=== PATIENT | male | born 1960 | race Caucasian/White ===

== ENCOUNTER 2018-01-25 14:26 | Emergency (ER) | payer MEDICAID, SELFPAY ==
[2018-01-25 14:27] VITALS: BP 124/90; PULSE 105; RESP 16; TEMP 36.1; O2SAT 100; BMI 23.6
[2018-01-25] MEDS: HYDROmorphone 1 MG/ML Syringe IM (15:14)
--- NOTE | 2018-01-25 16:18 | ED.VISSUMM ---
- ER Visit Summary Date of Service: 01/25/18 Chief Complaint: Shingles History of Present Illness: The patient is a 57 M with no primary care physician. He reports that he has a rash that began on his right arm approximately 17 days ago. He was seen at urgent care and placed on prednisone which she finished 2 days ago. He went back 2 days ago and was started on Valtrex and gabapentin. He has been taking ibuprofen and tramadol for pain reports that his pain is uncontrolled. Describes as a sharp stabbing pain throughout his right arm. Is 10 out of 10 in severity. Physical Examination: Vitals: Stable. Afebrile. General: Well-nourished and well-developed. Head: Normocephalic atraumatic. Neck: Supple, no lymphadenopathy. No JVD. Nontender. Cardiovascular: Regular rate and rhythm. No murmurs. Respiratory: No respiratory distress. Clear to auscultation bilaterally. Abdominal: Soft, nontender, nondistended, normal bowel sounds. No guarding, rebound, or peritoneal signs. Back: Nontender. Extremities: Nontender, no edema. Skin:Scabbed lesions on the right arm and shoulder in a C5-C6 distribution with no surrounding erythema to suggest infection. Neurologic: Alert and oriented ?3. Cranial nerves II through XII are intact. Normal strength and sensation. Psych: Normal affect. Emergency Department Course and Treatment: Patient was treated with a milligram of Dilaudid IM. He was also given 2 Percocet p.o. and another dose of prednisone. Treatment Plan: I suggest the patient continue the Valtrex that he was prescribed as well as the gabapentin in hopes this will help decrease the risk of postherpetic neuralgia. He will be given a prescription for Percocet as well as another prednisone taper to attempt to help with the pain as well. Instructed to follow-up Dr. Reid in 1 week if not improving. Disposition: To home in improved and stable condition. Impression: 1. Shingles in the C5/C6 dermatomes on right. This note was generated with [employer] software. It may contain incorrect words, spelling, and punctuation that were not noted in review of the chart prior to signing ED Disposition - Plan for ED Patient: Disposition: Home or Assisted Living Chief Complaint: Other, Pain/Inj Instructions: ED Shingles Prescriptions: Oxycodone HCl/Acetaminophen [Percocet 5/325] 1 tablet PO Q6H PRN PRN 5 Days #20 tablet PRN Reason: Pain Prednisone 10 mg PO DAILY #63 tablet Referrals: Shay Reid MD [STAFF PHYSICIAN] - 1 Week if not improving
[2018-01-25] MEDS: predniSONE 20 MG Tablet 60 MG PO (16:37)
[2018-01-25] MEDS: oxyCODONE 5 MG Tablet 10 MG PO (16:37)
[2018-01-25 16:45] VITALS: BP 155/96; PULSE 90; RESP 16; O2SAT 100
--- NOTE | 2018-01-25 16:56 | ED.RN ---
Verbal and written d/c instructions given. All questions answered. Gait steady out of department.
== END 2018-01-25 16:50 | disposition home or self-care (01) ==
PROVIDERS: Emergency Provider Emergency Medicine
DX: B02.9 Zoster without complications (principal)
CPT/HCPCS: 96372; 99283

== ENCOUNTER 2018-02-03 12:59 | Emergency (ER) | payer MEDICAID, SELFPAY ==
[2018-02-03 12:59] VITALS: BP 137/83; PULSE 101; RESP 20; TEMP 36.6; O2SAT 99; BMI 24.3
--- NOTE | 2018-02-03 13:25 | ED.VISSUMM ---
- ER Visit Summary Date of Service: 02/03/18 Chief Complaint: Shingles History of Present Illness: The patient is a 57 M with history of shingles, it is worse over the past few weeks. He is on gabapentin, as well as opiate analgesics at home. Since he pulled on his arm until he makes himself self pass out so the pain is gone. Physical Examination: He does appear in some distress,, he is a healing rash on his right arm, there are no signs of infection. Emergency Department Course and Treatment: Patient will be given IM morphine, he is told to increase his Neurontin from 900 mg a day to 1800 mg a day. He will be referred to pain management. Impression: Herpes zoster This note was generated with [employer] dictation software. It may contain incorrect words, spelling, and punctuation that were not noted in review of the chart prior to signing ED Disposition - Plan for ED Patient: Chief Complaint: Other, Pain/Inj Referrals: Care Physician,No Primary [Primary Care Provider] -
--- NOTE | 2018-02-03 13:27 | ED.DEP ---
ED Disposition - Plan for ED Patient: Disposition: Home or Assisted Living Chief Complaint: Other, Pain/Inj Instructions: ED Shingles Referrals: Theodora Canales MD [STAFF PHYSICIAN] - Additional Instructions: take 2 tabs of Neurontin 3 times per day
[2018-02-03] MEDS: morphine 10 MG/ML Syringe SC (13:30)
[2018-02-03 13:48] VITALS: BP 128/86; PULSE 88; RESP 18
== END 2018-02-03 13:49 | disposition home or self-care (01) ==
PROVIDERS: Emergency Provider Emergency Medicine
DX: B02.9 Zoster without complications (principal)
CPT/HCPCS: 96372; 99283

== ENCOUNTER 2018-02-06 13:01 | Inpatient (IN) | payer MEDICAID, SELFPAY ==
[2018-02-06 13:02] VITALS: BP 101/77; PULSE 89; RESP 16; TEMP 36.4; O2SAT 98; BMI 23.6
--- NOTE | 2018-02-06 13:36 | EKG12_ITS ---
Test Reason : DYSRHYTHMIA Blood Pressure : / mmHG Vent. Rate : 084 BPM Atrial Rate : 084 BPM P-R Int : 134 ms QRS Dur : 082 ms QT Int : 348 ms P-R-T Axes : 068 -09 043 degrees QTc Int : 411 ms Normal sinus rhythm Normal ECG Confirmed by ARTHUR MONSON, YUMIKO ([id number]), editor school photograph RAYNA NAZARIO ([id number]) on 02/09/2018 2:53:32 PM Referred By: TRAVIS Confirmed By:YUMIKO GIBSON MD
[2018-02-06] MEDS: 0.9% Normal Saline 1,000 ML 150 ML IV (13:52)
[2018-02-06] MEDS: HYDROmorphone 1 MG/ML Syringe IV ×4 (13:52→21:42)
[2018-02-06 13:58] LABS: Absolute Lymphocyte Count 1.27 X10^3/ul (0.83-4.51); Absolute Neutrophil Count 4.4 X10^3/uL (2.0-7.7); Basophil# 0.02 X10^3/uL; Basophil% 0.3 % (0-1); Eosinophil# 0.06 X10^3/uL; Hematocrit 38.8 % (40-54); Hemoglobin 13.2 g/dl (13.0-16.5); Lymphocyte # 1.27 X10^3/ul (4.0); Lymphocyte % 20.4 % (19-41); Mean Corpuscular Hgb 28.8 pg (27.0-32.0); Mean Corpuscular Volume 84.5 fL (80-94); Mean Platelet Vol. 9.7 fl (6.2-12.0); Monocyte# 0.43 X10^3/uL; Monocyte% 6.9 % (0-10); Neutrophil # 4.44 X10^3/uL (2.7-7.7); Neutrophil % 71.2 % (47-70); POSITIVE COUNT NO; POSITIVE DIFFERENTIAL NO; POSITIVE MORPHOLOGY NO; Platelet Count 206 K/mm3 (150-450); RBC Distribution Width CV 12.6 % (11.6-14.6); RBC Distribution Width SD 38.3 fl (35.1-43.9); Red Blood Count 4.59 M/mm3 (4.6-6.2); White Blood Count 6.2 K/mm3 (4.4-11.0)
[2018-02-06 14:23] LABS: Anion Gap 8 (5-15); BUN 18 mg/dL (7-18); BUN/Creat Ratio 16.1 RATIO (10-20); Calcium,Total 8.8 mg/dL (8.5-10.1); Chloride 92 mmol/L (98-107); Creatinine, Serum 1.12 mg/dL (0.70-1.30); EST Glomerular Filtration Rate 72 mL/min (>60); Est Glom Filt Rate - Afr Amer 87 mL/min (>60); Estimated Creatinine Clearance 75.14 ml/min; Glucose 520 mg/dL (74-106); Potassium 5.1 mmol/L (3.5-5.1); Sodium Level 127 mmol/L (136-145)
--- NOTE | 2018-02-06 14:35 | RAD_ITS ---
STUDY: X-RAY - CERVICAL SPINE REASON FOR EXAM: Male, 57 years old. Severe neck pain and right arm pain. TECHNIQUE: 4 view(s) of the cervical spine were obtained. COMPARISON: None FINDINGS: Normal anterior atlantoaxial articulation. Normal odontoid process. There is straightening of the normal cervical lordosis. Normal vertebral bodies and endplates. Mild degree of disc space narrowing at the C5-C6 level. Normal visualized intervertebral neuroforamina. The soft tissue structures are unremarkable. RAD/Cerv Spine 2 or 3 Views IMPRESSION: Disc space narrowing at the C5-C6 level. Electronically Signed: Michael Allen MD at 15:19 EDT Tel [phone], Service support ,
[2018-02-06 15:28] VITALS: BP 164/94; PULSE 81; RESP 16; O2SAT 95
--- NOTE | 2018-02-06 16:00 | ED.VISSUMM ---
- ER Visit Summary Date of Service: 02/06/18 Chief Complaint: [Right arm pain] History of Present Illness: The patient is a 57 M [presents the emergency department with right arm pain that started 4 weeks ago. Patient had shingles to the right arm and has since developed a postherpetic neuralgia. Patient states that he has been having severe paroxysms of pain. Patient currently on Neurontin and prednisone as well as oxycodone for pain which has not been helping his pain. Patient was seeing pain management today and got a shot of Toradol and then had a severe paroxysm of pain where he was screaming out in pain and clutching his chest so he was sent to the ER for evaluation. Patient denies any shortness of breath. He denies any trauma to the arm. This is the same pain that he has had over the last 4 weeks. Patient has not had any fevers. Patient has no heart history. Not currently having any chest pain.] Physical Examination: [HEENT-PERRLA, EOMI. Cranial nerves II through XII grossly intact. TMs clear. Mucous membranes moist. No adenopathy. Cardiovascular-regular rate and rhythm without murmur or ectopy Lungs-clear to auscultation, chest wall stable without crepitus or subcu emphysema Abdomen-normoactive bowel sounds, soft, nontender, no rebound or rigidity, no peritoneal signs. Extremities-intact ?4, normal range of motion, normal pulses, atraumatic]. Right arm-patient has brownish discoloration to right arm in a dermatomal pattern consistent with postherpetic rash. Patient has normal pulses and normal sensation. Patient has normal deep tendon reflexes plus 2 out of 4 bilaterally at the bicep, tricep, and brachioradialis. Test Results: [EKG obtained on arrival shows sinus rhythm with a ventricular rate of 84 bpm with no acute ST segment changes. CBC with differential obtained showed a white count of 6.2, he will open 13, hematocrit 39, platelets 206. Chemistry showed a sodium of 127, potassium 5.1, chloride 92, CO2 27 glucose was 520, BUN 18 and creatinine was 1.12. Troponin was less than 0.015. X-rays of the cervical spine obtained showed disc space narrowing at C5-6 otherwise nothing acute.] Emergency Department Course and Treatment: [Patient was medicated with Dilaudid and Zofran and he continued to have intermittent severe episodes of pain and had to be remedicated with Dilaudid. Patient was given 12 units of insulin subcu.] Treatment Plan: [Admit for pain management and glycemic control] Disposition: [Admit] Impression: [Intractable right arm pain secondary to postherpetic neuralgia Hyperglycemia] This note was generated with [employer] dictation software. It may contain incorrect words, spelling, and punctuation that were not noted in review of the chart prior to signing ED Disposition - Plan for ED Patient: Chief Complaint: Other, Pain/Inj Referrals: Care Physician,No Primary [Primary Care Provider] -
[2018-02-06] MEDS: Insulin Lispro 100 UNIT/ML INSULN.PEN 12 UNIT SC (16:08)
--- NOTE | 2018-02-06 16:43 | PCM.HP.STD ---
Problem List (1) Post herpetic neuralgia Status: Acute (2) Peripheral neuropathy Status: Chronic Qualifiers: Peripheral neuropathy type: polyneuropathy, unspecified Qualified Code(s): G62.9 - Polyneuropathy, unspecified (3) Hyperlipidemia Status: Chronic Qualifiers: Hyperlipidemia type: unspecified Qualified Code(s): E78.5 - Hyperlipidemia, unspecified (4) Type 2 diabetes mellitus Status: Chronic Qualifiers: Diabetes mellitus shelter insulin use: without oysterman use Diabetes mellitus complication status: with unspecified complications Qualified Code(s): E11.8 - Type 2 diabetes mellitus with unspecified complications (5) Benign essential hypertension Status: Chronic History of Present Illness Date of Admission: 02/06/18 Chief Complaint: Right arm pain for 2 weeks The patient is a 57 year old M with a significant history of right shoulder problem requiring surgery sometime in 2013. Four weeks ago he did some yard work after which he developed pain in his right arm extending to his right hand. Initially it was diagnosed as poison faby. His pain eventually subsided and then he developed a vesicular lesions. He was subsequently diagnosed with shingles. On outpatient he was placed on valacyclovir, prednisone and gabapentin. He also took some Percocet and tramadol that he had been prescribed about 3 years ago after his shoulder surgery. All these medications were not helping him. He was at our ED 3 days ago where he was referred to a pain specialist. Today at the office at a pain specialist he was given Toradol IM. Because of persistent of pain at the Pain specialist's office he was advised to come to the ED. [] Past Medical History Past Medical History (Chronic Problems): Chronic Problems Peripheral neuropathy (Chronic) Hyperlipidemia (Chronic) Type 2 diabetes mellitus (Chronic) Benign essential hypertension (Chronic) Allergies hydrocodone bitartrate [From Vicodin] Adverse Reaction (Mild, Verified 01/25/18 14:29) HYPER Home Medications: Ambulatory Orders Medication Instructions Recorded Albuterol Inhaler [Ventolin Hfa] 2 puff INHALATION DAILY PRN 06/11/13 Ascorbate Calcium [Vitamin C] 500 mg PO DAILY 08/15/13 Cholecalciferol (Vitamin D3) 500 unit PO DAILY 08/15/13 [Vitamin D3] [place]-3S/Dha/Epa/Fish Oil/D3 [Fish 1 each PO DAILY 08/15/13 Oil + D3 Softgel] RX: traMADol [Ultram] 50 mg PO Q6H PRN PRN #60 tablet 10/17/13 Gabapentin [Neurontin] 300 mg PO TID 01/25/18 Oxycodone HCl/Acetaminophen 1 tablet PO Q6H PRN PRN 5 Days #20 01/25/18 [Percocet 5/325] tablet Valacyclovir HCl [Valacyclovir] 1,000 mg PO TID 01/25/18 RX: Prednisone 10 mg PO DAILY 02/06/18 Surgical History: - - S/p R shoulder surgery Lives: Spouse/ Significant Other Smoking Status: Never smoker Tobacco Use: Chew - Chews tobacco. Reports he last chewed tobacco about 4 weeks ago. He denies ever smoking Alcohol: Rare Drugs: None - *Family History Maternal History Items: No pertinent history Paternal History Items: No pertinent history Review of Systems Skin: Reports: Wounds VTE Information - Inpt Only VTE Present on Admission: No VTE Mechan Device Prophylaxis: None VTE Pharm Prophylaxis ordered?: No Patient Problems: Active and Suspected Problems Post herpetic neuralgia (Acute) - Physical Exam General: Alert, Oriented x3 HEENT: Atraumatic, PERRLA, EOMI, Normocephalic Neck: Supple, No JVD, Negative Carotid Bruits Lungs: Clear to auscultation, Normal air movement Cardiovascular: Regular rate, No murmurs Abdomen: Bowel Sounds Present, Soft, Non Tender Extremities: - - Right arm with desquamation rashes. Excoriations on bilateral legs Neurological: Cranial nerves II-XII grossly intact Psych/Mental Status: Normal Affect, Appropriate Vital Signs Temp Pulse Resp BP Pulse Ox 97.6 F L 81 16 164/94 H 95 02/06/18 13:02 02/06/18 15:28 02/06/18 15:28 02/06/18 15:28 02/06/18 15:28 Assessment/Plan All Active Problems Post herpetic neuralgia (Acute) A 57 year old M with a significant history of right shoulder pain requiring surgery sometime in 2013. Four weeks ago he did some yard work after which he developed pain in his right arm extending to his right hand. Initially it was diagnosed as poison faby. His pain eventually subsided but he later developed a vesicular lesions. He was subsequently diagnosed with shingles. On outpatient he was placed on valacyclovir, prednisone and gabapentin. He now presents with persistent pain to his right upper extremity. 1.Postherpetic neuralgia We will continue his home gabapentin 300 mg 3 times daily. Will add amitriptyline The patient was started on Dilaudid from the ED which was giving him some relief, will continue Dilaudid. Will continue prednisone Patient stated that he has about 3 more doses of Valacyclovir will continue valacyclovir for now. Dr. Pascual was consulted to optimize pain management 2. Diabetes Type II with acute hyperglycemia The patient reports that previously he was taking short acting insulin (humalog) and was later switched to long acting insulin. He reports that after losing about 57 pounds he no longer required insulin. Because of her presentation his blood glucose was more than 500 will continue patient on low dose correction scale and ACHS blood glucose checks. The patient received 12 units of short acting insulin at the ED. Repeated glucose was 302. If blood glucose remain elevated will consider basal insulin Continue NSS infusion for an additional 1000ml 3.History of HTN Vitals every 4 hours 4.VTE Prophylaxis - Low risk Recommend ambulation Code Visit OBSV E&M: 76850 Initial observation care L3
--- NOTE | 2018-02-06 16:48 | HP.PCM_ITS ---
Problem List (1) Post herpetic neuralgia Status: Acute (2) Peripheral neuropathy Status: Chronic Qualifiers: Peripheral neuropathy type: polyneuropathy, unspecified Qualified Code(s): G62.9 - Polyneuropathy, unspecified (3) Hyperlipidemia Status: Chronic Qualifiers: Hyperlipidemia type: unspecified Qualified Code(s): E78.5 - Hyperlipidemia , unspecified (4) Type 2 diabetes mellitus Status: Chronic Qualifiers: Diabetes mellitus long-term insulin use: without wood heel attacher use Diabetes mellitus complication status: with unspecified complications Qualified Code(s) : E11.8 - Type 2 diabetes mellitus with unspecified complications (5) Benign essential hypertension Status: Chronic History of Present Illness Date of Admission: 02/06/18 Chief Complaint: Right arm pain for 2 weeks The patient is a 57 year old M with a significant history of right shoulder problem requiring surgery sometime in 2013. Four weeks ago he did some yard work after which he developed pain in his right arm extending to his right hand. Initially it was diagnosed as poison faby. His pain eventually subsided and then he developed a vesicular lesions. He was subsequently diagnosed with shingles. On outpatient he was placed on valacyclovir, prednisone and gabapentin. He also took some Percocet and tramadol that he had been prescribed about 3 years ago after his shoulder surgery. All these medications were not helping him. He was at our ED 3 days ago where he was referred to a pain specialist. Today at the office at a pain specialist he was given Toradol IM. Because of persistent of pain at the Pain specialist's office he was advised to come to the ED. [] Past Medical History Past Medical History (Chronic Problems): Chronic Problems Peripheral neuropathy (Chronic) Hyperlipidemia (Chronic) Type 2 diabetes mellitus (Chronic) Benign essential hypertension (Chronic) Allergies hydrocodone bitartrate [From Vicodin] Adverse Reaction (Mild, Verified 01/25/18 14:29) HYPER Home Medications: Ambulatory Orders Medication Instructions Recorded Albuterol Inhaler [Ventolin Hfa] 2 puff INHALATION DAILY PRN 06/11/13 Ascorbate Calcium [Vitamin C] 500 mg PO DAILY 08/15/13 Cholecalciferol (Vitamin D3) 500 unit PO DAILY 08/15/13 [Vitamin D3] [place]-3S/Dha/Epa/Fish Oil/D3 [Fish 1 each PO DAILY 08/15/13 Oil + D3 Softgel] RX: traMADol [Ultram] 50 mg PO Q6H PRN PRN #60 tablet 10/17/13 Gabapentin [Neurontin] 300 mg PO TID 01/25/18 Oxycodone HCl/Acetaminophen 1 tablet PO Q6H PRN PRN 5 Days #20 01/25/18 [Percocet 5/325] tablet Valacyclovir HCl [Valacyclovir] 1,000 mg PO TID 01/25/18 RX: Prednisone 10 mg PO DAILY 02/06/18 Surgical History: - - S/p R shoulder surgery Lives: Spouse/ Significant Other Smoking Status: Never smoker Tobacco Use: Chew - Chews tobacco. Reports he last chewed tobacco about 4 weeks ago. He denies ever smoking Alcohol: Rare Drugs: None - *Family History Maternal History Items: No pertinent history Paternal History Items: No pertinent history Review of Systems Skin: Reports: Wounds VTE Information - Inpt Only VTE Present on Admission: No VTE Mechan Device Prophylaxis: None VTE Pharm Prophylaxis ordered?: No Patient Problems: Active and Suspected Problems Post herpetic neuralgia (Acute) - Physical Exam General: Alert, Oriented x3 HEENT: Atraumatic, PERRLA, EOMI, Normocephalic Neck: Supple, No JVD, Negative Carotid Bruits Lungs: Clear to auscultation, Normal air movement Cardiovascular: Regular rate, No murmurs Abdomen: Bowel Sounds Present, Soft, Non Tender Extremities: - - Right arm with desquamation rashes. Excoriations on bilateral legs Neurological: Cranial nerves II-XII grossly intact Psych/Mental Status: Normal Affect, Appropriate Vital Signs Temp Pulse Resp BP Pulse Ox 97.6 F L 81 16 164/94 H 95 02/06/18 13:02 02/06/18 15:28 02/06/18 15:28 02/06/18 15:28 02/06/18 15:28 Assessment/Plan All Active Problems Post herpetic neuralgia (Acute) A 57 year old M with a significant history of right shoulder pain requiring surgery sometime in 2013. Four weeks ago he did some yard work after which he developed pain in his right arm extending to his right hand. Initially it was diagnosed as poison faby. His pain eventually subsided but he later developed a vesicular lesions. He was subsequently diagnosed with shingles. On outpatient he was placed on valacyclovir, prednisone and gabapentin. He now presents with persistent pain to his right upper extremity. 1.Postherpetic neuralgia We will continue his home gabapentin 300 mg 3 times daily. Will add amitriptyline The patient was started on Dilaudid from the ED which was giving him some relief , will continue Dilaudid. Will continue prednisone Patient stated that he has about 3 more doses of Valacyclovir will continue valacyclovir for now. Dr. Pascual was consulted to optimize pain management 2. Diabetes Type II with acute hyperglycemia The patient reports that previously he was taking short acting insulin (humalog ) and was later switched to long acting insulin. He reports that after losing about 57 pounds he no longer required insulin. Because of her presentation his blood glucose was more than 500 will continue patient on low dose correction scale and ACHS blood glucose checks. The patient received 12 units of short acting insulin at the ED. Repeated glucose was 302. If blood glucose remain elevated will consider basal insulin Continue NSS infusion for an additional 1000ml 3.History of HTN Vitals every 4 hours 4.VTE Prophylaxis - Low risk Recommend ambulation Code Visit OBSV E&M: 68107 Initial observation care L3
[2018-02-06 17:04] VITALS: BMI 23.8
[2018-02-06 17:12] VITALS: BMI 23.9
[2018-02-06 17:41] LABS: Bedside Glucose 302 mg/dL (70-110)
[2018-02-06 18:08] VITALS: BP 119/78; PULSE 79; RESP 16; TEMP 37.1; O2SAT 96
[2018-02-06 18:12] VITALS: PULSE 79
[2018-02-06 18:36] LABS: Hemoglobin A1c 15.5 % (4.2-6.3)
[2018-02-06] MEDS: 0.9% Normal Saline 1,000 ML 75 ML IV (18:41)
[2018-02-06] MEDS: predniSONE 10 MG Tablet 20 MG PO (18:41)
[2018-02-06] MEDS: Amitriptyline 25 MG Tablet 50 MG PO (18:41)
[2018-02-06] MEDS: Acyclovir 800 MG Tablet PO ×2 (18:42→21:42)
[2018-02-06] MEDS: Gabapentin 300 MG Capsule PO ×2 (18:42→23:42)
[2018-02-06 19:45] VITALS: BP 105/70; PULSE 92; RESP 16; TEMP 36.7; O2SAT 100
[2018-02-06] MEDS: oxyCODONE 5 MG Tablet PO (19:52)
[2018-02-06] MEDS: 0.9% NaCl Peripheral Flush Adult/Peds IV (21:42)
[2018-02-06] MEDS: MELATONIN 3 MG TABLET PO (21:42)
[2018-02-06 22:10] LABS: Bedside Glucose 429 mg/dL (70-110)
[2018-02-06] MEDS: Insulin Lispro 100 UNIT/ML INSULN.PEN SC (23:42)
[2018-02-06] MEDS: Acetaminophen 325 MG Tablet 650 MG PO (23:42)
[2018-02-06] MEDS: Hydrocortisone 2.5% Crm 1 APPLIC TOPICAL (23:42)
[2018-02-07 01:47] VITALS: BP 151/95; PULSE 69; RESP 16; TEMP 36.6; O2SAT 96
[2018-02-07] MEDS: oxyCODONE 5 MG Tablet PO ×3 (03:20→18:21)
[2018-02-07] MEDS: 0.9% NaCl Peripheral Flush Adult/Peds IV ×3 (05:09→21:49)
[2018-02-07] MEDS: HYDROmorphone 1 MG/ML Syringe IV ×3 (05:09→21:50)
[2018-02-07] MEDS: Acyclovir 800 MG Tablet PO ×5 (05:10→21:59)
[2018-02-07 06:10] LABS: Absolute Neutrophil Count 4.8 X10^3/uL (2.0-7.7); Basophil# 0.01 X10^3/uL; Basophil% 0.2 % (0-1); Eosinophil# 0.01 X10^3/uL; Eosinophils% 0.2 % (0-5); Hematocrit 35.5 % (40-54); Hemoglobin 12.5 g/dl (13.0-16.5); Lymphocyte % 16.5 % (19-41); Mean Corp Hgb Conc 35.2 g/gl (32-36); Mean Corpuscular Hgb 29.7 pg (27.0-32.0); Mean Corpuscular Volume 84.3 fL (80-94); Mean Platelet Vol. 10.2 fl (6.2-12.0); Monocyte# 0.25 X10^3/uL; Monocyte% 4.1 % (0-10); Neutrophil # 4.78 X10^3/uL (2.7-7.7); Neutrophil % 78.7 % (47-70); Platelet Count 206 K/mm3 (150-450); Red Blood Count 4.21 M/mm3 (4.6-6.2); White Blood Count 6.1 K/mm3 (4.4-11.0)
[2018-02-07 06:17] LABS: POSITIVE COUNT NO; POSITIVE DIFFERENTIAL NO; POSITIVE MORPHOLOGY NO
[2018-02-07] MEDS: Acetaminophen 325 MG Tablet 650 MG PO ×2 (06:25→20:02)
[2018-02-07 06:35] LABS: Anion Gap 11 (5-15); BUN 22 mg/dL (7-18); BUN/Creat Ratio 22.3 RATIO (10-20); Calcium,Total 8.2 mg/dL (8.5-10.1); Chloride 98 mmol/L (98-107); Creatinine, Serum 0.98 mg/dL (0.70-1.30); EST Glomerular Filtration Rate 83 mL/min (>60); Est Glom Filt Rate - Afr Amer 101 mL/min (>60); Estimated Creatinine Clearance 85.87 ml/min; Glucose 444 mg/dL (74-106); Potassium 4.7 mmol/L (3.5-5.1); Sodium Level 132 mmol/L (136-145)
[2018-02-07 06:56] LABS: Bedside Glucose 452 mg/dL (70-110)
[2018-02-07] MEDS: Insulin Lispro 100 UNIT/ML INSULN.PEN 10 UNIT SC (07:03)
[2018-02-07 08:30] VITALS: BP 137/76; PULSE 60; RESP 18; TEMP 36.8; O2SAT 96
[2018-02-07] MEDS: Gabapentin 300 MG Capsule PO (08:31)
[2018-02-07] MEDS: Omega-3 Acid Ethyl Esters 1 GM Capsule PO (09:35)
[2018-02-07] MEDS: Ascorbic Acid 500 MG Tablet PO (09:35)
[2018-02-07] MEDS: Amitriptyline 25 MG Tablet 50 MG PO ×2 (09:35→22:01)
--- NOTE | 2018-02-07 09:37 | PCM.PN.HOSP ---
Patient Problems: Active and Suspected Problems Post herpetic neuralgia (Acute) Subjective: Patient continues to have numbness and tingling at his right upper extremity. He thinks that hydrocortisone cream that was applied to his right upper extremity has rather aggravated burning to his extremity. Vitals/I&O's: Vital Signs Temp Pulse Resp BP Pulse Ox 97.9 F 69 16 151/95 H 96 02/07/18 01:47 02/07/18 01:47 02/07/18 01:47 02/07/18 01:47 02/07/18 01:47 Oxygen Delivery Method Room Air Weight: 75.478 kg Body Mass Index (BMI) 23.8 Intake and Output for Last 24 Hours 02/05/18 02/06/18 02/07/18 23:59 23:59 23:59 Intake Total 839 / 839 427 / 427 Balance 839 / 839 427 / 427 General: Alert, Oriented x3, Cooperative, - HEENT: Atraumatic, PERRLA, EOMI, Normocephalic Neck: Supple, No JVD, Negative Carotid Bruits Lungs: Clear to auscultation, Normal air movement Cardiovascular: Regular rate, No murmurs Abdomen: Bowel Sounds Present, Soft, Non Tender Extremities: No edema, Capillary Refill Less than 3 Seconds, - Skin: Rash Present, - - Healed flat lesions on the ventral side of his right extremity. Neurological: Cranial nerves II-XII grossly intact Psych/Mental Status: Normal Affect, Appropriate Laboratory Results 02/06/18 17:35: POC Glucose 302 H 02/06/18 21:51: POC Glucose 429 H 02/07/18 05:30: WBC 6.1, RBC 4.21 L, Hgb 12.5 L, Hct 35.5 L, MCV 84.3, MCH 29.7, MCHC 35.2, RDW 12.0, RDW Differential 36.0, Plt Count 206, MPV 10.2, Immature Gran % (Auto) 0.300, Neut % (Auto) 78.7 H, Lymph % (Auto) 16.5 L, [place] % (Auto) 4.1, Eos % (Auto) 0.2, Baso % (Auto) 0.2, Absolute Neuts (auto) 4.8, Absolute Lymphs (auto) 1.00, Total Counted Not Reportable 02/07/18 05:30: Sodium 132 L, Potassium 4.7, Chloride 98, Carbon Dioxide 23.0, Anion Gap 11, BUN 22 H, Creatinine 0.98, Estim Creat Clear Calc 85.87, Est GFR (MDRD) Af Amer 101, Est GFR (MDRD) Non-Af 83, BUN/Creatinine Ratio 22.3 H, Glucose 444 H, Calcium 8.2 L 02/07/18 06:47: POC Glucose 452 H* Current Medications Acetaminophen (Tylenol) 650 mg PO Q6H PRN PRN PRN Reason: PAIN Last Admin: 02/07/18 06:25 Dose: 650 mg Acyclovir (Zovirax) 800 mg PO 5X/DAY [facility] Last Admin: 02/07/18 05:10 Dose: 800 mg Albuterol/Ipratropium (Duoneb) 3 ml INHALATION Q4H.RT PRN PRN Reason: SOB &/OR WHEEZING Amitriptyline HCl (Elavil) 50 mg PO BID [facility] Last Admin: 02/06/18 18:41 Dose: 50 mg Ascorbic Acid (Vitamin C) 500 mg PO DAILY [facility] Bisacodyl (Dulcolax) 5 mg PO DAILY PRN PRN PRN Reason: Constipation Gabapentin (Neurontin) 300 mg PO TIDCM [facility] Last Admin: 02/07/18 08:31 Dose: 300 mg Hydromorphone HCl (Dilaudid Inj) 1 mg IV Q3H PRN PRN PRN Reason: SEVERE PAIN (6-10/10) Last Admin: 02/07/18 05:09 Dose: 1 mg Sodium Chloride () 250 mls @ 15 mls/hr IV .[id number] PRN PRN Reason: SALINE FLUSH Insulin Glargine (Lantus (Bkc)) 10 units SC DAILY [facility] Insulin Human Lispro (Humalog Kwikpen (Bkc)) 0 unit SC ACHS [facility] PRN Reason: Protocol Insulin Human Lispro (Humalog Kwikpen (Bkc)) 4 unit SC TIDAC [facility] Lidocaine (Lidocaine 5%) 1 gm TOPICAL TID [facility] PRN Reason: Protocol Magnesium Hydroxide (Milk Of Magnesia) 30 ml PO DAILY PRN PRN PRN Reason: Constipation Melatonin (Melatonin) 3 mg PO QHS [facility] Last Admin: 02/06/18 21:42 Dose: 3 mg Ruqpm-7-Tqre Ethyl Esters (Lovaza) 1 gm PO DAILY [facility] Oxycodone HCl (Oxyir) 5 mg PO Q6H PRN PRN PRN Reason: PAIN Last Admin: 02/07/18 03:20 Dose: 5 mg Psyllium Hydrophilic Mucilloid (Metamucil) 1 packet PO DAILY PRN PRN PRN Reason: CONSTIPATION Sodium Chloride () 5 - 30 ml IV UD PRN PRN Reason: SALINE FLUSH Last Admin: 02/07/18 05:09 Dose: 10 ml Medical Necessity - Tobacco Use Smoking Status: Never smoker Tobacco Use: Chew Assessment/Plan All Active Problems Post herpetic neuralgia (Acute) A 57 year old M with a significant history of 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 1.Acute Post herpetic neuralgia Since patient pain is not abating will add lidocaine cream to regimen. Increase gabapentin from 300mg tid to 600mg tid Beginning tomorrow change amitriptyline from amitriptyline 50 mg twice daily to amitriptyline 100 mg daily for compliance. In anticipation of likely discharge tomorrow will begin to wean Dilaudid off by decreasing frequency. Will discontinue prednisone as they may not be any tangible role and his blood glucose is persistently high Will continue Acyclovir for today and consider discontinuing tomorrow Awaiting Dr. Pascual's recommendation 2. Diabetes Type II with uncontrolled hyperglycemia A1c is 15.5. Continue blood glucose check q. before meals and at bedtime. We will continue patient on high dose correction scale. Prandial insulin We will add basal insulin Lantus at 10 Units daily for today We will prandial Humalog 4 units 3 times daily. 3.VTE Prophylaxis Low risk Recommend ambulation 4. Miscellaneous: anticipate discharge tomorrow 02/08/2018 if his blood glucose is well managed; and his pain can be managed outpatient Code Visit Inpatient E&M: 25694 Subs Hosp L2
--- NOTE | 2018-02-07 09:40 | PN_ITS ---
Patient Problems: Active and Suspected Problems Post herpetic neuralgia (Acute) Subjective: Patient continues to have numbness and tingling at his right upper extremity. He thinks that hydrocortisone cream that was applied to his right upper extremity has rather aggravated burning to his extremity. Vitals/I&O's: Vital Signs Temp Pulse Resp BP Pulse Ox 97.9 F 69 16 151/95 H 96 02/07/18 01:47 02/07/18 01:47 02/07/18 01:47 02/07/18 01:47 02/07/18 01:47 Oxygen Delivery Method Room Air Weight: 75.478 kg Body Mass Index (BMI) 23.8 Intake and Output for Last 24 Hours 02/05/18 02/06/18 02/07/18 23:59 23:59 23:59 Intake Total 839 / 839 427 / 427 Balance 839 / 839 427 / 427 General: Alert, Oriented x3, Cooperative, - HEENT: Atraumatic, PERRLA, EOMI, Normocephalic Neck: Supple, No JVD, Negative Carotid Bruits Lungs: Clear to auscultation, Normal air movement Cardiovascular: Regular rate, No murmurs Abdomen: Bowel Sounds Present, Soft, Non Tender Extremities: No edema, Capillary Refill Less than 3 Seconds, - Skin: Rash Present, - - Healed flat lesions on the ventral side of his right extremity. Neurological: Cranial nerves II-XII grossly intact Psych/Mental Status: Normal Affect, Appropriate Laboratory Results 02/06/18 17:35: POC Glucose 302 H 02/06/18 21:51: POC Glucose 429 H 02/07/18 05:30: WBC 6.1, RBC 4.21 L, Hgb 12.5 L, Hct 35.5 L, MCV 84.3, MCH 29.7 , MCHC 35.2, RDW 12.0, RDW Differential 36.0, Plt Count 206, MPV 10.2, Immature Gran % (Auto) 0.300, Neut % (Auto) 78.7 H, Lymph % (Auto) 16.5 L, [place] % (Auto) 4.1, Eos % (Auto) 0.2, Baso % (Auto) 0.2, Absolute Neuts (auto) 4.8, Absolute Lymphs (auto) 1.00, Total Counted Not Reportable 02/07/18 05:30: Sodium 132 L, Potassium 4.7, Chloride 98, Carbon Dioxide 23.0, Anion Gap 11, BUN 22 H, Creatinine 0.98, Estim Creat Clear Calc 85.87, Est GFR ( MDRD) Af Amer 101, Est GFR (MDRD) Non-Af 83, BUN/Creatinine Ratio 22.3 H, Glucose 444 H, Calcium 8.2 L 02/07/18 06:47: POC Glucose 452 H* Current Medications Acetaminophen (Tylenol) 650 mg PO Q6H PRN PRN PRN Reason: PAIN Last Admin: 02/07/18 06:25 Dose: 650 mg Acyclovir (Zovirax) 800 mg PO 5X/DAY [facility] Last Admin: 02/07/18 05:10 Dose: 800 mg Albuterol/Ipratropium (Duoneb) 3 ml INHALATION Q4H.RT PRN PRN Reason: SOB &/OR WHEEZING Amitriptyline HCl (Elavil) 50 mg PO BID [facility] Last Admin: 02/06/18 18:41 Dose: 50 mg Ascorbic Acid (Vitamin C) 500 mg PO DAILY [facility] Bisacodyl (Dulcolax) 5 mg PO DAILY PRN PRN PRN Reason: Constipation Gabapentin (Neurontin) 300 mg PO TIDCM [facility] Last Admin: 02/07/18 08:31 Dose: 300 mg Hydromorphone HCl (Dilaudid Inj) 1 mg IV Q3H PRN PRN PRN Reason: SEVERE PAIN (6-10/10) Last Admin: 02/07/18 05:09 Dose: 1 mg Sodium Chloride () 250 mls @ 15 mls/hr IV .[id number] PRN PRN Reason: SALINE FLUSH Insulin Glargine (Lantus (Bkc)) 10 units SC DAILY [facility] Insulin Human Lispro (Humalog Kwikpen (Bkc)) 0 unit SC ACHS [facility] PRN Reason: Protocol Insulin Human Lispro (Humalog Kwikpen (Bkc)) 4 unit SC TIDAC [facility] Lidocaine (Lidocaine 5%) 1 gm TOPICAL TID [facility] PRN Reason: Protocol Magnesium Hydroxide (Milk Of Magnesia) 30 ml PO DAILY PRN PRN PRN Reason: Constipation Melatonin (Melatonin) 3 mg PO QHS [facility] Last Admin: 02/06/18 21:42 Dose: 3 mg Abtoc-2-Rhxz Ethyl Esters (Lovaza) 1 gm PO DAILY [facility] Oxycodone HCl (Oxyir) 5 mg PO Q6H PRN PRN PRN Reason: PAIN Last Admin: 02/07/18 03:20 Dose: 5 mg Psyllium Hydrophilic Mucilloid (Metamucil) 1 packet PO DAILY PRN PRN PRN Reason: CONSTIPATION Sodium Chloride () 5 - 30 ml IV UD PRN PRN Reason: SALINE FLUSH Last Admin: 02/07/18 05:09 Dose: 10 ml Medical Necessity - Tobacco Use Smoking Status: Never smoker Tobacco Use: Chew Assessment/Plan All Active Problems Post herpetic neuralgia (Acute) A 57 year old M with a significant history of 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 1.Acute Post herpetic neuralgia Since patient pain is not abating will add lidocaine cream to regimen. Increase gabapentin from 300mg tid to 600mg tid Beginning tomorrow change amitriptyline from amitriptyline 50 mg twice daily to amitriptyline 100 mg daily for compliance. In anticipation of likely discharge tomorrow will begin to wean Dilaudid off by decreasing frequency. Will discontinue prednisone as they may not be any tangible role and his blood glucose is persistently high Will continue Acyclovir for today and consider discontinuing tomorrow Awaiting Dr. aPscual's recommendation 2. Diabetes Type II with uncontrolled hyperglycemia A1c is 15.5. Continue blood glucose check q. before meals and at bedtime. We will continue patient on high dose correction scale. Prandial insulin We will add basal insulin Lantus at 10 Units daily for today We will prandial Humalog 4 units 3 times daily. 3.VTE Prophylaxis Low risk Recommend ambulation 4. Miscellaneous: anticipate discharge tomorrow 02/08/2018 if his blood glucose is well managed; and his pain can be managed outpatient Code Visit Inpatient E&M: 44343 Subs Hosp L2
[2018-02-07] MEDS: Insulin Lispro 100 UNIT/ML INSULN.PEN SC ×5 (11:35→23:14)
[2018-02-07 11:50] LABS: Bedside Glucose 333 mg/dL (70-110)
[2018-02-07] MEDS: Gabapentin 300 MG Capsule 600 MG PO ×2 (12:15→16:30)
--- NOTE | 2018-02-07 13:13 | CASEMGMT ---
See RN CM Assessment Link. DC Plan: Home -Pt states he has new pt appointment with [facility] physicians on February 23, 2018 -Pt has endocrinology physician in [place]- encouraged to make f/u appt on dc to re-evaluate his diabetes. -Pt states he has blood glucose monitoring equipment at home and knows how to use. -[employer] preferred insulin drug list on front of chart. Physician: please order off this list if possible for pt. Jalen HAGEN RN ACM
--- NOTE | 2018-02-07 15:50 | CHAPLAIN ---
Type of Pastoral Visit _x__ Initial Visit ___ Follow-up Visit ___ On-call Visit ___ General Patient Visit ___ Spiritual Assessment ___ Family Conference ___ Bereavement ___ Rapid Response ___ Code Blue ___ Other (describe below) Pastoral Care Referral From _x__ Patient ___ Family ___ Nurse ___ Physician ___ [place] Machine Operator ___ Solar Business Developer ___ Other (describe below) Sacrament/Intervention ___ Active listening ___ Anointing ___ Anabaptist ___ Bereavement ___ Communion ___ Jenny exploration ___ ___ Life review ___ Prayer ___ Reconciliation ___ Sacrament of Sick ___ Supportive presence ___ Wedding _x__ Other (describe below) Pastoral Comments two attempts and only able to meet with family member for support and offer of prayer; patient was sleeping and due to need for rest this upholstery covers inspector did not disturb him; family said they would inform patient of support and prayers from upholstery covers inspector
[2018-02-07 16:22] VITALS: BP 111/67; PULSE 84; RESP 18; TEMP 36.9; O2SAT 96
[2018-02-07 16:30] LABS: Bedside Glucose 297 mg/dL (70-110)
[2018-02-07 21:56] VITALS: BP 146/84; PULSE 99; RESP 18; TEMP 36.9; O2SAT 97
[2018-02-07] MEDS: MELATONIN 3 MG TABLET PO (22:00)
[2018-02-07 22:25] LABS: Bedside Glucose 472 mg/dL (70-110)
[2018-02-07 22:41] LABS: Glucose 449 mg/dL (74-106)
[2018-02-07 23:34] VITALS: PULSE 99
[2018-02-08 02:30] VITALS: BP 106/79; PULSE 93; RESP 16; TEMP 36.9; O2SAT 95
[2018-02-08] MEDS: oxyCODONE 5 MG Tablet PO ×2 (02:30→10:04)
[2018-02-08] MEDS: Acetaminophen 325 MG Tablet 650 MG PO ×2 (03:48→10:05)
[2018-02-08 06:41] LABS: Bedside Glucose 269 mg/dL (70-110)
[2018-02-08 07:47] VITALS: BP 98/56; PULSE 78; RESP 18; TEMP 36.8; O2SAT 95
[2018-02-08] MEDS: Ascorbic Acid 500 MG Tablet PO (07:54)
[2018-02-08] MEDS: Gabapentin 300 MG Capsule 600 MG PO ×2 (07:54→11:39)
[2018-02-08] MEDS: Amitriptyline 100 MG Tablet PO (07:54)
[2018-02-08] MEDS: Omega-3 Acid Ethyl Esters 1 GM Capsule PO (07:54)
[2018-02-08] MEDS: Insulin Lispro 100 UNIT/ML INSULN.PEN SC ×2 (08:27)
--- NOTE | 2018-02-08 11:02 | DS.PCM_ITS ---
Discharge Date and Diagnosis Date of Admission: 02/06/18 Date of Discharge: 02/08/18 - Primary Discharge Diagnosis Active and Suspected Problems Post herpetic neuralgia (Acute) - Secondary Discharge Diagnosis Chronic Problems Peripheral neuropathy (Chronic) Hyperlipidemia (Chronic) Type 2 diabetes mellitus (Chronic) Benign essential hypertension (Chronic) Hospital Course and Treatment Imaging Results: Impressions Cervical Spine X-Ray 02/06/18 14:35 IMPRESSION: Disc space narrowing at the C5-C6 level. Electronically Signed: Michael Allen MD at 15:19 EDT Tel [phone], Service support , Laboratory Results 02/07/18 02/07/18 02/08/18 Range/Units 22:10 22:24 06:37 Glucose 449 H (74-106) mg/dL POC Glucose 472 H* 269 H (70-110) mg/dL 02/08/18 Range/Units 11:11 Glucose (74-106) mg/dL POC Glucose 195 H (70-110) mg/dL Pain Management Operations: None Procedures: None Summary of Care Provided: The patient is a 57 year old M who was admitted because of post hepatic neuralgia. Inpatient treatment included escalation of his previous home pain regimen from gabapentin 300 mg 3 times daily to gabapentin 600 mg twice daily. Other treatment included amitriptyline 100 mg p.o. daily; morphine IV as needed and oxycodone p.o. as needed. Initially, hydrocortisone cream was applied to his right arm but because patient reported increasing pain, hydrocortiosne was discontinued and topical lidocaine therapy was started. Pain management was consulted who recommended outpatient follow up at the clinic for management of C5-C6 disc narrowing. Patient was noted to have a severe hypoglycemia and this was treated with a basal, prandial and correction scale insulin. He was prednisone prior to his hospitalization. Initially prednisone was continued in the hospital but since he was not getting any relief from the prednisone and his blood sugar was elevated, prednisone was discontinued. Patient noted a considerable reduction in the pain of his right arm; and his blood glucose was getting better controlled. Patient was subsequently discontinued on a pain regimen for his postherpetic neuralgia; and he was prescribed a basal insulin, prandial insulin and metformin for management of his blood glucose. Patient was instructed to follow up with endocrinology. He reported that previously he was seeing an united [place] marshal for diabetes type 2. Diabetic teaching was provided. Patient was instructed to follow with Dr. Canales and with his PCP. [] Discharge Diet: Carb Control Diet Discharge Activity: Return to Normal Activity Home Medications: Medications to take at Discharge Albuterol Inhaler [Ventolin Hfa] 2 puff INHALATION DAILY PRN 06/11/13 Ascorbate Calcium [Vitamin C] 500 mg PO DAILY 08/15/13 Cholecalciferol (Vitamin D3) [Vitamin D3] 500 unit PO DAILY 08/15/13 [place]-3S/Dha/Epa/Fish Oil/D3 [Fish Oil-Vit D3 Softgel] 1 each PO DAILY 08/15/13 Oxycodone HCl/Acetaminophen [Percocet 5/325] 1 tablet PO Q6H PRN PRN 5 Days #20 tablet 01/25/18 Acetaminophen [Tylenol Tablet] 650 mg PO Q6H PRN PRN #60 tab 02/08/18 Amitriptyline HCl [Elavil] 100 mg PO DAILY #30 tab 02/08/18 Bisacodyl [Dulcolax] 5 mg PO DAILY PRN PRN 14 Days #14 tab 02/08/18 Gabapentin [Neurontin] 600 mg PO TIDCM #90 cap 02/08/18 Insulin Glargine [Lantus SoloStar Pen] 25 units SC QHS 30 Days #2 pen 02/08/18 Insulin Lispro [Humalog KwikPen] 5 unit SC TIDAC 30 Days #2 insuln.pen 02/08/18 Lancets/Blood Glucose Strips [Fora [id number] Strp-Lnct] 1 ea MC TID #1 combo..pkg 02/08/18 Lidocaine [Lidocaine 5%] 1 gm TOPICAL TID 14 Days #1 tube 02/08/18 Lisinopril [Prinivil] 5 mg PO DAILY #30 tab 02/08/18 Metformin HCl 500 mg PO BID 30 Days #60 tab 02/08/18 [place], Insulin Disposable [Novofine Autocover 30G Needle] 1 ea MISCELL. UD #1 box 02/08/18 Oxycodone [Oxyir] 5 mg PO Q6H PRN PRN 5 Days #20 tab 02/08/18 Following Prescrptions Were Given to Patient: Acetaminophen [Tylenol Tablet] 650 mg PO Q6H PRN PRN #60 tab PRN Reason: Pain Oxycodone [Oxyir] 5 mg PO Q6H PRN PRN 5 Days #20 tab PRN Reason: Pain Amitriptyline HCl [Elavil] 100 mg PO DAILY #30 tab Bisacodyl [Dulcolax] 5 mg PO DAILY PRN PRN 14 Days #14 tab PRN Reason: Constipation Insulin Glargine [Lantus SoloStar Pen] 25 units SC QHS 30 Days #2 pen Insulin Lispro [Humalog KwikPen] 5 unit SC TIDAC 30 Days #2 insuln.pen Lisinopril [Prinivil] 5 mg PO DAILY #30 tab [place], Insulin Disposable [Novofine Autocover 30G Needle] 1 ea MISCELL. UD #1 box Metformin HCl 500 mg PO BID 30 Days #60 tab Gabapentin [Neurontin] 600 mg PO TIDCM #90 cap Lancets/Blood Glucose Strips [Fora [id number] Strp-Lnct] 1 ea MC TID #1 combo..pkg Lidocaine [Lidocaine 5%] 1 gm TOPICAL TID 14 Days #1 tube Primary Care Physician: Care Physician,No Primary [Primary Care Provider] - Please follow up with your Primary Care Physician in: one to two weeks Please Follow Up With: Theodora Canales MD When: one to two weeks Additional Instructions: Check BMP within one week Disposition: Home Patient Condition:: Good Medical Necessity - Tobacco Use Smoking Status: Never smoker Tobacco Use: Chew Meaningful Use Info Meaningful Use Diagnoses (Choose all that apply): None applicable Code Visit Inpatient E&M: 07386 Disch Hosp
--- NOTE | 2018-02-08 11:02 | PCM.DC ---
- Discharge Diagnoses Current Active Problems: Current Active and Chronic Problems Post herpetic neuralgia (Acute) Reason(s) for Visit for Discharge Instructions: Right extremity pain You will use the following diet at home:: Calorie/Carbohydrate Controlled (specify 1200, 1400, etc), Cardiac Your food should be the consistency of: Regular Your liquids should be the consistency of: Regular/Thin Discharge Activity: Return to Normal Activity Allergies/Adverse Reactions: Allergies hydrocodone bitartrate [From Vicodin] Adverse Reaction (Mild, Verified 01/25/18 14:29) HYPER Medications to take at Discharge Albuterol Inhaler [Ventolin Hfa] 2 puff INHALATION DAILY PRN 06/11/13 Ascorbate Calcium [Vitamin C] 500 mg PO DAILY 08/15/13 Cholecalciferol (Vitamin D3) [Vitamin D3] 500 unit PO DAILY 08/15/13 [place]-3S/Dha/Epa/Fish Oil/D3 [Fish Oil-Vit D3 Softgel] 1 each PO DAILY 08/15/13 Oxycodone HCl/Acetaminophen [Percocet 5/325] 1 tablet PO Q6H PRN PRN 5 Days #20 tablet 01/25/18 Acetaminophen [Tylenol Tablet] 650 mg PO Q6H PRN PRN #60 tab 02/08/18 Amitriptyline HCl [Elavil] 100 mg PO DAILY #30 tab 02/08/18 Bisacodyl [Dulcolax] 5 mg PO DAILY PRN PRN 14 Days #14 tab 02/08/18 Gabapentin [Neurontin] 600 mg PO TIDCM #90 cap 02/08/18 Insulin Glargine [Lantus SoloStar Pen] 25 units SC QHS 30 Days #2 pen 02/08/18 Insulin Lispro [Humalog KwikPen] 5 unit SC TIDAC 30 Days #2 insuln.pen 02/08/18 Lidocaine [Lidocaine 5%] 1 gm TOPICAL TID 14 Days #1 tube 02/08/18 Lisinopril [Prinivil] 5 mg PO DAILY #30 tab 02/08/18 Metformin HCl 500 mg PO BID 30 Days #60 tab 02/08/18 Oxycodone [Oxyir] 5 mg PO Q6H PRN PRN 5 Days #20 tab 02/08/18 The following prescriptions were given: Acetaminophen [Tylenol Tablet] 650 mg PO Q6H PRN PRN #60 tab PRN Reason: Pain Oxycodone [Oxyir] 5 mg PO Q6H PRN PRN 5 Days #20 tab PRN Reason: Pain Amitriptyline HCl [Elavil] 100 mg PO DAILY #30 tab Bisacodyl [Dulcolax] 5 mg PO DAILY PRN PRN 14 Days #14 tab PRN Reason: Constipation Insulin Glargine [Lantus SoloStar Pen] 25 units SC QHS 30 Days #2 pen Insulin Lispro [Humalog KwikPen] 5 unit SC TIDAC 30 Days #2 insuln.pen Lisinopril [Prinivil] 5 mg PO DAILY #30 tab Metformin HCl 500 mg PO BID 30 Days #60 tab Gabapentin [Neurontin] 600 mg PO TIDCM #90 cap Lidocaine [Lidocaine 5%] 1 gm TOPICAL TID 14 Days #1 tube Primary Care Physician: Care Physician,No Primary [Primary Care Provider] - Please follow up with your Primary Care Physician in: within 2 weeks Test Results: When: follow-up with your student services counselor in 1 week with blood sugar log Please Follow Up With: Theodora Canales MD When: within 1-2 weeks Proposed Discharge Date: 02/08/18
--- NOTE | 2018-02-08 11:12 | DCINST_ITS ---
- Discharge Diagnoses Current Active Problems: Current Active and Chronic Problems Post herpetic neuralgia (Acute) Reason(s) for Visit for Discharge Instructions: Right extremity pain You will use the following diet at home:: Calorie/Carbohydrate Controlled ( specify 1200, 1400, etc), Cardiac Your food should be the consistency of: Regular Your liquids should be the consistency of: Regular/Thin Discharge Activity: Return to Normal Activity Allergies/Adverse Reactions: Allergies hydrocodone bitartrate [From Vicodin] Adverse Reaction (Mild, Verified 01/25/18 14:29) HYPER Medications to take at Discharge Albuterol Inhaler [Ventolin Hfa] 2 puff INHALATION DAILY PRN 06/11/13 Ascorbate Calcium [Vitamin C] 500 mg PO DAILY 08/15/13 Cholecalciferol (Vitamin D3) [Vitamin D3] 500 unit PO DAILY 08/15/13 [place]-3S/Dha/Epa/Fish Oil/D3 [Fish Oil-Vit D3 Softgel] 1 each PO DAILY 08/15/13 Oxycodone HCl/Acetaminophen [Percocet 5/325] 1 tablet PO Q6H PRN PRN 5 Days #20 tablet 01/25/18 Acetaminophen [Tylenol Tablet] 650 mg PO Q6H PRN PRN #60 tab 02/08/18 Amitriptyline HCl [Elavil] 100 mg PO DAILY #30 tab 02/08/18 Bisacodyl [Dulcolax] 5 mg PO DAILY PRN PRN 14 Days #14 tab 02/08/18 Gabapentin [Neurontin] 600 mg PO TIDCM #90 cap 02/08/18 Insulin Glargine [Lantus SoloStar Pen] 25 units SC QHS 30 Days #2 pen 02/08/18 Insulin Lispro [Humalog KwikPen] 5 unit SC TIDAC 30 Days #2 insuln.pen 02/08/18 Lidocaine [Lidocaine 5%] 1 gm TOPICAL TID 14 Days #1 tube 02/08/18 Lisinopril [Prinivil] 5 mg PO DAILY #30 tab 02/08/18 Metformin HCl 500 mg PO BID 30 Days #60 tab 02/08/18 Oxycodone [Oxyir] 5 mg PO Q6H PRN PRN 5 Days #20 tab 02/08/18 The following prescriptions were given: Acetaminophen [Tylenol Tablet] 650 mg PO Q6H PRN PRN #60 tab PRN Reason: Pain Oxycodone [Oxyir] 5 mg PO Q6H PRN PRN 5 Days #20 tab PRN Reason: Pain Amitriptyline HCl [Elavil] 100 mg PO DAILY #30 tab Bisacodyl [Dulcolax] 5 mg PO DAILY PRN PRN 14 Days #14 tab PRN Reason: Constipation Insulin Glargine [Lantus SoloStar Pen] 25 units SC QHS 30 Days #2 pen Insulin Lispro [Humalog KwikPen] 5 unit SC TIDAC 30 Days #2 insuln.pen Lisinopril [Prinivil] 5 mg PO DAILY #30 tab Metformin HCl 500 mg PO BID 30 Days #60 tab Gabapentin [Neurontin] 600 mg PO TIDCM #90 cap Lidocaine [Lidocaine 5%] 1 gm TOPICAL TID 14 Days #1 tube Primary Care Physician: Care Physician,No Primary [Primary Care Provider] - Please follow up with your Primary Care Physician in: within 2 weeks Test Results: When: follow-up with your archaeology professor in 1 week with blood sugar log Please Follow Up With: Theodora Canales MD When: within 1-2 weeks Proposed Discharge Date: 02/08/18
[2018-02-08 11:31] LABS: Bedside Glucose 195 mg/dL (70-110)
[2018-02-08 13:37] VITALS: BP 107/57; PULSE 72; RESP 18; TEMP 36.3; O2SAT 96
--- NOTE | 2018-02-10 17:07 | CASEMGMT ---
RN CM Discharge Follow-up Phone Call: ROSALINE: Ainsley Strata: 3 Call Date: 02/10/18 Discharge Date: 02/08/18 Time of Call: 1708 Duration: 1 min Admitting Diagnosis: Post Herpetic Pain RN REINA attempted to complete follow-up phone call after recent hospitalization. No answer, voice message left with return contact information.
== END 2018-02-08 14:51 | disposition home or self-care (01) | DRG 18 ==
LOC: ED 14:26 → MS3 02-07 07:15
PROVIDERS: Internal Medicine; Admitting Provider Hospitalist; Emergency Provider Emergency Medicine; Visit Provider Hospitalist
DX: B02.29 Other postherpetic nervous system involvement (principal); E11.65 Type 2 diabetes mellitus with hyperglycemia; Z72.0 Tobacco use; E78.5 Hyperlipidemia, unspecified; G62.9 Polyneuropathy, unspecified
CPT/HCPCS: 36415; 72040; 80048; 82947; 82962; 83036; 84484; 85025; 93005; 96372; 97161; 97166; 97802; 99282; 99283; 99406; J7030; A4216

== ENCOUNTER → 2018-02-14 17:03 | Outpatient (CLI) | payer MEDICAID, SELFPAY ==
[2018-02-14 18:05] LABS: Anion Gap 9 (5-15); BUN 22 mg/dL (7-18); BUN/Creat Ratio 20.6 RATIO (10-20); Calcium,Total 8.9 mg/dL (8.5-10.1); Chloride 99 mmol/L (98-107); Creatinine, Serum 1.07 mg/dL (0.70-1.30); EST Glomerular Filtration Rate 76 mL/min (>60); Est Glom Filt Rate - Afr Amer 91 mL/min (>60); Glucose 404 mg/dL (74-106); Potassium 4.8 mmol/L (3.5-5.1); Sodium Level 135 mmol/L (136-145)
== END ==
PROVIDERS: Visit Provider Hospitalist
DX: R73.9 Hyperglycemia, unspecified (principal)
CPT/HCPCS: 36415; 80048

== ENCOUNTER → 2018-02-23 10:50 | Outpatient (CLI) | payer MEDICAID, SELFPAY ==
[2018-02-23 12:31] LABS: Absolute Lymphocyte Count 2.07 X10^3/ul (0.83-4.51); Basophil# 0.02 X10^3/uL; Basophil% 0.3 % (0-1); Eosinophil# 0.13 X10^3/uL; Eosinophils% 1.9 % (0-5); Hemoglobin 14.1 g/dl (13.0-16.5); Lymphocyte # 2.07 X10^3/ul (4.0); Lymphocyte % 30.9 % (19-41); Mean Corpuscular Hgb 28.8 pg (27.0-32.0); Mean Corpuscular Volume 89.8 fL (80-94); Mean Platelet Vol. 9.7 fl (6.2-12.0); Monocyte# 0.43 X10^3/uL; Monocyte% 6.4 % (0-10); Neutrophil # 4.03 X10^3/uL (2.7-7.7); Neutrophil % 60.2 % (47-70); Platelet Count 302 K/mm3 (150-450); RBC Distribution Width CV 13.4 % (11.6-14.6); RBC Distribution Width SD 43.2 fl (35.1-43.9); White Blood Count 6.7 K/mm3 (4.4-11.0)
[2018-02-23 12:37] LABS: POSITIVE COUNT NO; POSITIVE DIFFERENTIAL NO; POSITIVE MORPHOLOGY NO
[2018-02-23 12:50] LABS: ALB/GLOB Ratio 0.9 RATIO (0.9-2.4); AST(SGOT) 21 U/L (15-37); Alanine Aminotransfer ALT/SGPT 61 U/L (16-61); Albumin, Serum 3.6 g/dL (3.2-5.0); Alkaline Phosphatase 83 U/L (45-117); Anion Gap 6 (5-15); BUN 16 mg/dL (7-18); BUN/Creat Ratio 17.6 RATIO (10-20); Calcium,Total 9.1 mg/dL (8.5-10.1); Chloride 105 mmol/L (98-107); Cholesterol 354 mg/dL (200); Creatinine, Serum 0.91 mg/dL (0.70-1.30); EST Glomerular Filtration Rate 91 mL/min (>60); Est Glom Filt Rate - Afr Amer 110 mL/min (>60); Globulin 3.9 g/dL (2.2-4.2); Glucose 100 mg/dL (74-106); High Density Lipoprotein 60 mg/dL; Protein, Total 7.5 g/dL (6.4-8.2); Sodium Level 139 mmol/L (136-145); Thyroid Stim Hormone (TSH) 1.77 uIU/mL (0.358-3.74); Triglycerides 361 mg/dL; Very Low Density Lipoprotein 72 mg/dL (5-40)
[2018-02-23 12:52] LABS: Microalbumin,Random Urine 35.5 mg/L (NO RANGE EST.); Microalbumin:Creatinine Ratio 33.8 mg/g CRE (<30 mg/g CRE)
[2018-02-24 08:18] LABS: Vitamin B12 974 pg/mL (211-911)
== END ==
PROVIDERS: Family Provider Family Medicine; PCP Family Medicine; Visit Provider Family Medicine
DX: G62.9 Polyneuropathy, unspecified (principal); E11.9 Type 2 diabetes mellitus without complications
CPT/HCPCS: 36415; 80053; 80061; 82043; 82570; 82607; 84425; 84443; 85025

== ENCOUNTER 2018-03-01 09:43 | Day surgery (SDC) | payer MEDICAID, SELFPAY ==
[2018-03-01] VITALS (7 sets, daily range): BP systolic 105–126; BP diastolic 79–89; PULSE 95–120; RESP 16–18; TEMP 36.4–36.6; O2SAT 93–100; BMI 25.7
--- NOTE | 2018-03-01 10:00 | RAD_ITS ---
STUDY: X-RAY - CERVICAL SPINE REASON FOR EXAM: Male, 57 years old. Epidural block TECHNIQUE: 1 intraoperative view(s) of the cervical spine were obtained. COMPARISON: None FINDINGS: Limited intraoperative C-arm film was performed as the patient has undergone epidural block at C6-7. RAD/Cerv Spine 2 or 3 Views IMPRESSION: Epidural block at C6-7 Electronically Signed: Ramon Castillo MD at 11:26 EDT , Service support ,
[2018-03-01 10:16] LABS: Bedside Glucose 289 mg/dL (70-110)
[2018-03-01] MEDS: Triamcinolone Acetonide 40 MG/ML Vial (10:58)
== END 2018-03-01 11:55 | disposition home or self-care (01) ==
LOC: SDC 09:44 → AC 09:45
PROVIDERS: Family Provider Family Medicine; PCP Family Medicine; Visit Provider Anesthesiology Pain Medicine
PROC: 3E0S3BZ Introduction of Anesthetic Agent into Epidural Space, Percutaneous Approach (ICD-10-PCS; CPT 62320; principal; 2018-03-01 10:25)
DX: M54.12 Radiculopathy, cervical region (principal); E11.9 Type 2 diabetes mellitus without complications; T78.40XA Allergy, unspecified, initial encounter; Z79.4 Long term (current) use of insulin; Z79.84 Long term (current) use of oral hypoglycemic drugs; Z79.899 Other long term (current) drug therapy
CPT/HCPCS: 62321; 64490; 72040; 82962; J7120; J3490

== ENCOUNTER → 2018-04-19 15:50 | Outpatient (CLI) | payer MEDICAID, SELFPAY ==
--- NOTE | 2018-04-19 15:54 | RAD_ITS ---
STUDY: X-RAY - RIGHT SHOULDER REASON FOR EXAM: Male, 57 years old. Shoulder pain TECHNIQUE: 4 view(s) of the shoulder. COMPARISON: Prior study of 09/07/2016 FINDINGS: Normal glenohumeral articulation. Normal acromioclavicular joint. Normal acromion. Normal humeral head and visualized proximal humerus. The soft tissue structures are unremarkable. Normal visualized pulmonary apex. RAD/Shoulder min 2 Views IMPRESSION: Normal x-ray examination of the shoulder. Electronically Signed: Nelson Angela MD at 22:40 EDT , Service support ,
== END ==
PROVIDERS: Family Provider Family Medicine; PCP Family Medicine; Visit Provider Family Medicine
DX: M25.511 Pain in right shoulder (principal)
CPT/HCPCS: 73030

== ENCOUNTER → 2018-05-31 09:31 | Outpatient (CLI) | payer MEDICAID, SELFPAY ==
[2018-05-31 12:08] LABS: Absolute Lymphocyte Count 1.94 X10^3/ul (0.83-4.51); Absolute Neutrophil Count 3.8 X10^3/uL (2.0-7.7); Basophil# 0.04 X10^3/uL; Basophil% 0.6 % (0-1); Eosinophil# 0.19 X10^3/uL; Hematocrit 46.7 % (40-54); Hemoglobin 15.8 g/dl (13.0-16.5); Lymphocyte # 1.94 X10^3/ul (4.0); Lymphocyte % 30.3 % (19-41); Mean Corp Hgb Conc 33.8 g/gl (32-36); Mean Corpuscular Hgb 29.3 pg (27.0-32.0); Mean Corpuscular Volume 86.5 fL (80-94); Mean Platelet Vol. 10.9 fl (6.2-12.0); Monocyte% 6.2 % (0-10); Neutrophil # 3.83 X10^3/uL (2.7-7.7); Neutrophil % 59.7 % (47-70); Platelet Count 233 K/mm3 (150-450); RBC Distribution Width CV 12.3 % (11.6-14.6); RBC Distribution Width SD 39.1 fl (35.1-43.9); White Blood Count 6.4 K/mm3 (4.4-11.0)
[2018-05-31 12:15] LABS: Microalbumin:Creatinine Ratio 71.8 mg/g CRE (<30 mg/g CRE)
[2018-05-31 12:17] LABS: POSITIVE COUNT NO; POSITIVE DIFFERENTIAL NO; POSITIVE MORPHOLOGY NO
[2018-05-31 12:20] LABS: Hemoglobin A1c 9.3 % (4.2-6.3)
[2018-05-31 12:32] LABS: AST(SGOT) 17 U/L (15-37); Alanine Aminotransfer ALT/SGPT 30 U/L (16-61); Albumin, Serum 3.8 g/dL (3.2-5.0); Alkaline Phosphatase 64 U/L (45-117); Anion Gap 10 (5-15); BUN 22 mg/dL (7-18); BUN/Creat Ratio 20.4 RATIO (10-20); Calcium,Total 9.2 mg/dL (8.5-10.1); Chloride 106 mmol/L (98-107); Cholesterol 262 mg/dL (200); Creatinine, Serum 1.08 mg/dL (0.70-1.30); EST Glomerular Filtration Rate 75 mL/min (>60); Est Glom Filt Rate - Afr Amer 90 mL/min (>60); Globulin 3.7 g/dL (2.2-4.2); Glucose 254 mg/dL (74-106); High Density Lipoprotein 53 mg/dL; Protein, Total 7.5 g/dL (6.4-8.2); Sodium Level 139 mmol/L (136-145); Triglycerides 167 mg/dL; Very Low Density Lipoprotein 33 mg/dL (5-40)
== END ==
PROVIDERS: Family Provider Family Medicine; PCP Family Medicine; Visit Provider Family Medicine
DX: E11.9 Type 2 diabetes mellitus without complications (principal); E78.5 Hyperlipidemia, unspecified; R07.9 Chest pain, unspecified
CPT/HCPCS: 36415; 80053; 80061; 82043; 82570; 83036; 85025

== ENCOUNTER → 2018-06-21 06:31 | Outpatient (CLI) | payer MEDICAID, SELFPAY ==
--- NOTE | 2018-06-21 06:58 | MRI_ITS ---
STUDY: MRI BRAIN WITH AND WITHOUT CONTRAST REASON FOR EXAM: Male, 58 years old. RT SIDED MUSCLE WEAKNESS- ARM, VISION CHANGES. TECHNIQUE: Standardized multiplanar fat and water weighted pulse sequences were obtained. 9 ml of Gadavist contrast material was administered intravenously for the contrast portion of the examination. COMPARISON: None. FINDINGS: Normal size of the ventricles and extra-axial spaces for the patient's age. Normal white matter tracts of the supratentorial brain. Normal bilateral basal ganglia. Normal thalami. There is no extra-axial fluid accumulation. Normal flow voids within the major intracranial circulation suggesting patency by spin echo criteria. Normal venous enhancement. There is no enhancing intra-axial or extra-axial abnormality. Normal sella turcica, pituitary gland, infundibular stalk, optic chiasm and hypothalamus. Normal tectal plate and pineal gland. Normal midbrain, savanna and medulla. Normal cerebellum. Normal basal cisterns. Normal bilateral temporal bones. Normal bilateral internal auditory canals. No demonstrated orbital abnormality, within the constraints of a routine brain study. There is mucoperiosteal inflammatory disease of the paranasal sinuses consistent with mild chronic sinusitis. Normal calvarium and skull base. Normal visualized soft tissue structures. Normal visualized upper cervical spine. MRI/Brain W/WO Contrast IMPRESSION: Unremarkable unenhanced and enhanced MRI of the brain. Electronically Signed: Jose Rosa MD at 11:42 EST Tel , Service support ,
--- NOTE | 2018-06-21 10:42 | STRESSREP_ITS ---
Stress Test Report Date: 06/21/2018 Procedure: Pharmacologic stress nuclear imaging study Indications: Chest pain Consent: Per the patient Procedure: The patient underwent pharmacologic (Regadenoson) evaluation with a peak heart rate of 99 beats per minute (61 predicted maximal heart rate) and a peak blood pressure of 160/102 mmHg. The baseline ECG demonstrated normal sinus rhythm; poor R wave progression. The peak pharmacologic ECG demonstrated no obvious ECG changes. There were rare PVCs during recovery. There was no complaint of chest discomfort during pharmacologic infusion or recovery. The examination was discontinued secondary to completion of protocol. Impression: 1. Pharmacologic (Regadenoson) evaluation 2. Peak pharmacologic ECG with no obvious ECG changes. 3. There were rare PVCs during recovery. 4. Nuclear images pending Myocardial perfusion imaging study: Technique: The patient was injected with 14.1 millicuries of technetium 99m Cardiolite and subsequently rest SPECT Cardiolite nuclear imaging was obtained in the horizontal long, vertical long, and short axis views. The patient underwent pharmacologic (Regadenoson) evaluation with a peak heart rate of 99 beats per minute (61 % percent predicted maximal heart rate) and a peak blood pressure of 160/102 mmHg. The patient was injected with 44.8 millicuries of technetium 99m Cardiolite and subsequently stress SPECT Cardiolite nuclear imaging was obtained in the horizontal long, vertical long, and short axis views. A gated Cardiolite study at peak stress was obtained. Interpretation: Rest and stress SPECT Cardiolite nuclear imaging status post realignment, normalization, and attenuation correction demonstrate rest and area of diminished tracer uptake in portions of the distal anteroseptal segment which status post stress appears to improve/normalize.. There is end systolic thickening and brightening. The gated Cardiolite study demonstrates myocardial thickening and inward wall motion. The reported LVEF is 68 %. Impression: 1. Test and stress SPECT Cardiolite nuclear imaging demonstrate myocardial perfusion changes at rest which appear to improve/normalized following stress appearing compatible shifting soft tissue attenuation/artifact with no myocardial perfusion changes considered diagnostic for associated stress-induced myocardial ischemia or previous myocardial injury/infarction. 2. The gated Cardiolite study reports an LVEF of 68 %. This note was generated with Reapp[employer] software. It may contain incorrect words, spelling, and punctuation that were not noted in checking the note before signing.
== END ==
PROVIDERS: Family Provider Family Medicine; PCP Family Medicine; Referring Provider Family Medicine; Visit Provider Family Medicine
DX: R07.9 Chest pain, unspecified (principal); M62.81 Muscle weakness (generalized)
CPT/HCPCS: 70553; 78452; 93017; A9500; A9585; A4216; J2785

== ENCOUNTER → 2018-07-04 11:56 | Outpatient (CLI) | payer MEDICAID, SELFPAY ==
--- NOTE | 2018-07-04 12:01 | RAD_ITS ---
STUDY: X-RAY - LEFT FOOT CLINICAL: Male, 58 years old. Pain and swelling along the fifth metatarsal following injury. TECHNIQUE: 3 view(s) of the foot. COMPARISON: None. FINDINGS: There is a plantar calcaneal spur. Normal visualized subtalar, talonavicular, calcaneocuboid, tarsal and tarsometatarsal articulations. Normal metatarsi. Normal metatarsophalangeal joint of the great toe. Normal tibial and fibular sesamoid bones. Normal interphalangeal joint of the great toe. Normal phalanges of the great toe. Normal second through fifth metatarsophalangeal joints. Nondisplaced transverse fracture through the midportion of the proximal phalanx of the fifth digit. Soft tissue swelling. RAD/Foot min 3 Views IMPRESSION: Nondisplaced fracture through the midportion of the proximal phalanx of the fifth digit. Soft tissue swelling. Plantar spur Electronically Signed: Michael Allen MD at 15:51 EST Tel [phone], Service support ,
--- OUTSIDE RECORDS SUMMARY | 2018-08-16 03:40 | XMS RPT_ITS ---
:1960 Author Organization [place] Support Name Relationship Address Phone NATIVIDAD BENITEZ Unavailable [address] + [place] [address] [facility] Unavailable [address] + [place] [address] NATIVIDAD BENITEZ Unavailable [address] + [place] [address] [facility] Unavailable [address] + [place] [address] NATIVIDAD BEN[facility] Unavailable [address] + [place] [address] [facility] Unavailable [address] + [place] [address] [facility] Unavailable [address] + [place] [address] [facility] Unavailable [address] + [place] [address] [facility] Unavailable [address] + [place] [address] [facility] Unavailable [address] + [place] [address] [facility] Unavailable [address] + [place] [address] [facility] Unavailable [address] + [place] [address] [facility] Unavailable [address] + [place] [address] [facility] Unavailable [address] + [place] [address] [facility] Unavailable [address] + [place] [address] [facility] Unavailable [address] + [place] [address] RINGL[facility], NATIVIDAD Unavailable [address] + [place] [address] J[facility] Unavailable [address] + [place] [address] RINGRONEN RUIZLYN Unavailable [address] + [place] [address] [facility] Unavailable [address] + [place] [address] RINGRONEN RUIZ[facility] Unavailable [address] + [place] [address] [facility] Unavailable [address] + [place] [address] RINGRONEN RUIZLYN Unavailable [address] + [place] [address] [facility] Unavailable [address] + [place] [address] RINGRONEN RUIZLYN Unavailable [address] + [place] [address] [facility] Unavailable [address] + [place] [address] Care Team Providers Name Role Phone HANNAH WELLS ([facility]) Attending Unavailable Madi Vasquez Attending Unavailable Primay Care Physicia, No Primary Care Unavailable Primay Care Physicia, No Primary Care Unavailable Hans Prasad Attending Unavailable Primay Care Physicia, No Primary Care Unavailable Steve Kuhn Admitting Unavailable Steve Kuhn Attending Unavailable Theodora Canales Consulting Unavailable Steve Kuhn Attending Unavailable Steve Kuhn Referring Unavailable Primay Care Physicia, No Primary Care Unavailable Amish Han Attending Unavailable Amish Han Primary Care Unavailable Theodora Canales Attending Unavailable Amish Han Primary Care Unavailable Theodora Canales Referring Unavailable Amish Han Attending Unavailable Amish Han Referring Unavailable Amish Han Primary Care Unavailable Amish Han Attending Unavailable Amish Han Primary Care Unavailable Amish Han Attending Unavailable Amish Han Referring Unavailable Amish Han Primary Care Unavailable Ana Odonnell Attending Unavailable Amish Han Referring Unavailable Amish Han Attending Unavailable Amish Han Referring Unavailable Amish Han Primary Care Unavailable Amish Han Attending Unavailable Amish Han Referring Unavailable Amish Han Primary Care Unavailable Hans Strong Attending Unavailable Amish Han Referring Unavailable PROBLEMS PROBLEMS DATE TYPE CONDITION / CODE ATTENDING STATUS SOURCE 07/04/2018 Unknown T14.90XA - Injury, Amish Han unspecified, E [facility] initial encounter / Hospital T14.90XA(ICD-10) Repository 07/14/2018 Unknown R07.9 - Chest pain, Hans Strong Active [facility] unspecified / Community R07.9(ICD-10) Hospital Repository 04/19/2018 Unknown M25.511 - Pain in Amish Han Active [facility] right shoulder / [facility] M25.511(ICD-10) Hospital Repository 03/09/2018 Unknown G62.9 - Amish Han Active [facility] Polyneuropathy, [facility] unspecified / Hospital G62.9(ICD-10) Repository 02/09/2018 Unknown B02.29 - Other Agyepong, Aimee [place] postherpetic Steve [facility] nervous system Hospital involvement / Repository B02.29(ICD-10) 01/25/2018 Unknown B02.9 - Zoster PedroMadi Active [facility] without [facility] complications / Hospital B02.9(ICD-10) Repository PROCEDURES PROCEDURES No Procedure Records FoundRESULTS RESULTS FOOT MIN 3 VIEWS Observed: 07/04/2018 Status: F Source: [place] 12:01 PM [facility] HOSPITAL REPOSITORY [facility] Imaging Services [address] [place] [address] Foot min 3 Views MR#: [id number] Acct: [id number] Name: GERBER RICO Rep #: [id number] : 1960 M 58 From: Michael Allen MD PCP: Amish Han MD Status: REG CLI Study: Foot min 3 Views Date of Exam: 07/04/18 Exam# [id number] Ordering Dr: Amish Han MD STUDY: X-RAY - LEFT FOOT CLINICAL: Male, 58 years old. Pain and swelling along the fifth metatarsal following injury. TECHNIQUE: 3 view(s) of the foot. COMPARISON: None. FINDINGS: There is a plantar calcaneal spur. Normal visualized subtalar, talonavicular, calcaneocuboid, tarsal and tarsometatarsal articulations. Normal metatarsi. Normal metatarsophalangeal joint of the great toe. Normal tibial and fibular sesamoid bones. Normal interphalangeal joint of the great toe. Normal phalanges of the great toe. Normal second through fifth metatarsophalangeal joints. Nondisplaced transverse fracture through the midportion of the proximal phalanx of the fifth digit. Soft tissue swelling. RAD/Foot min 3 Views IMPRESSION: Nondisplaced fracture through the midportion of the proximal phalanx of the fifth digit. Soft tissue swelling. Plantar spur Electronically Signed: Michael Allen MD at 15:51 EST Tel [phone], Service support , CC: Amish Han MD Communications Representative: Signed STRESS REPORT Observed: 06/21/2018 Status: F Source: [place] 10:42 AM [facility] REPOSITORY [facility] Cardiovascular Services [address] [place] [address] MR#: [id number] Acct: [id number] Name: JACKYGERBER Matteo Rep #: [id number] : 1960 58 From: Hans Strong MD Primary Care: Amish Han MD Status: REG CLI Ordering Dr: Lance: Nunu Tavera Stress Test Report Date: 06/21/2018 Procedure: Pharmacologic stress nuclear imaging study Indications: Chest pain Consent: Per the patient Procedure: The patient underwent pharmacologic (Regadenoson) evaluation with a peak heart rate of 99 beats per minute (61 predicted maximal heart rate) and a peak blood pressure of 160/102 mmHg. The baseline ECG demonstrated normal sinus rhythm; poor R wave progression. The peak pharmacologic ECG demonstrated no obvious ECG changes. There were rare PVCs during recovery. There was no complaint of chest discomfort during pharmacologic infusion or recovery. The examination was discontinued secondary to completion of protocol. Impression: 1. Pharmacologic (Regadenoson) evaluation 2. Peak pharmacologic ECG with no obvious ECG changes. 3. There were rare PVCs during recovery. 4. Nuclear images pending Myocardial perfusion imaging study: Technique: The patient was injected with 14.1 millicuries of technetium 99m Cardiolite and subsequently rest SPECT Cardiolite nuclear imaging was obtained in the horizontal long, vertical long, and short axis views. The patient underwent pharmacologic (Regadenoson) evaluation with a peak heart rate of 99 beats per minute (61 % percent predicted maximal heart rate) and a peak blood pressure of 160/102 mmHg. The patient was injected with 44.8 millicuries of technetium 99m Cardiolite and subsequently stress SPECT Cardiolite nuclear imaging was obtained in the horizontal long, vertical long, and short axis views. A gated Cardiolite study at peak stress was obtained. Interpretation: Rest and stress SPECT Cardiolite nuclear imaging status post realignment, normalization, and attenuation correction demonstrate rest and area of diminished tracer uptake in portions of the distal anteroseptal segment which status post stress appears to improve/normalize.. There is end systolic thickening and brightening. The gated Cardiolite study demonstrates myocardial thickening and inward wall motion. The reported LVEF is 68 %. Impression: 1. Test and stress SPECT Cardiolite nuclear imaging demonstrate myocardial perfusion changes at rest which appear to improve/normalized following stress appearing compatible shifting soft tissue attenuation/artifact with no myocardial perfusion changes considered diagnostic for associated stress-induced myocardial ischemia or previous myocardial injury/infarction. 2. The gated Cardiolite study reports an LVEF of 68 %. This note was generated with [employer] software. It may contain incorrect words, spelling, and punctuation that were not noted in checking the note before signing. 06/21/18 1042 <Electronically signed by Hans Strong MD> Date Hans Strong MD CC: Amish Han MD Date Dictated: 06/21/18 1031 Date Transcribed: 06/21/18 103 Communications Representative: PM Signed BRAIN W/WO CONTRAST Observed: 06/21/2018 Status: F Source: [place] 6:59 AM [facility] REPOSITORY [facility] Imaging Services [address] [place] [address] Brain W/WO Contrast MR#: [id number] Acct: [id number] Name: GERBER RICO Rep #: [id number] : 1960 M 58 From: Jose Rosa PCP: Amish Han MD Status: REG CLI Study: Brain W/WO Contrast Date of Exam: 06/21/18 Exam# [id number] Ordering Dr: Amish Han MD STUDY: MRI BRAIN WITH AND WITHOUT CONTRAST REASON FOR EXAM: Male, 58 years old. RT SIDED MUSCLE WEAKNESS- ARM, VISION CHANGES. TECHNIQUE: Standardized multiplanar fat and water weighted pulse sequences were obtained. 9 ml of Gadavist contrast material was administered intravenously for the contrast portion of the examination. COMPARISON: None. FINDINGS: Normal size of the ventricles and extra-axial spaces for the patient's age. Normal white matter tracts of the supratentorial brain. Normal bilateral basal ganglia. Normal thalami. There is no extra-axial fluid accumulation. Normal flow voids within the major intracranial circulation suggesting patency by spin echo criteria. Normal venous enhancement. There is no enhancing intra-axial or extra-axial abnormality. Normal sella turcica, pituitary gland, infundibular stalk, optic chiasm and hypothalamus. Normal tectal plate and pineal gland. Normal midbrain, savanna and medulla. Normal cerebellum. Normal basal cisterns. Normal bilateral temporal bones. Normal bilateral internal auditory canals. No demonstrated orbital abnormality, within the constraints of a routine brain study. There is mucoperiosteal inflammatory disease of the paranasal sinuses consistent with mild chronic sinusitis. Normal calvarium and skull base. Normal visualized soft tissue structures. Normal visualized upper cervical spine. MRI/Brain W/WO Contrast IMPRESSION: Unremarkable unenhanced and enhanced MRI of the brain. Electronically Signed: Jose Rosa MD at 11:42 EST Tel , Service support , CC: Amish Han MD Communications Representative: Signed ORTHOPEDIC VISIT Observed: 06/19/2018 Status: F Source: [place] REPORT 11:13 AM [facility] Orthopa[facility]ics AND Sports Medicine [address] [place] [address] OFFICE VISIT Date of Service: 06/16/18 MR#: [id number] Acct: [id number] Name: GERBER RICO Rep #: [id number] : 1960 Provider: Ana Odonnell DO Age/Sex: 58/M Location: [facility] [place] [place] Status: Signed Intake Intake Visit Reasons: RIGHT SHOULDER Is patient in pain?: Yes Allergies hydrocodone bitartrate [From Vicodin] Adverse Reaction (Mild, Verified 06/16/18 08:27) HYPER lisinopril Adverse Reaction (Verified 06/16/18 08:27) Other Medications Albuterol Inhaler [Ventolin Hfa] 2 puff INHALATION DAILY PRN 06/11/13 [History Confirmed 02/28/18] Ascorbate Calcium [Vitamin C] 500 mg PO DAILY 08/15/13 [History Confirmed 02/28/18] Cholecalciferol (Vitamin D3) [Vitamin D3] 500 unit PO DAILY 08/15/13 [History Confirmed 02/28/18] Huger-3S/Dha/Epa/Fish Oil/D3 [Fish Oil-Vit D3 Softgel] 1 ea PO DAILY 08/15/13 [History Confirmed 02/28/18] Acetaminophen [Tylenol Tablet] 650 mg PO Q6H PRN PRN #60 tab 02/08/18 [Rx Confirmed 02/28/18] Amitriptyline HCl [Elavil] 100 mg PO DAILY #30 tab 02/08/18 [Rx Confirmed 02/28/18] Insulin Glargine [Lantus SoloStar Pen] 25 units SC QHS 30 Days #2 pen 02/08/18 [Rx Confirmed 02/28/18] Lancets/Blood Glucose Strips [Fora [id number] Strp-Lnct] 1 ea MC TID #1 combo..pkg 02/08/18 [Rx Confirmed 02/28/18] Altha, Insulin Disposable [Novofine Autocover 30G Needle] 1 niyah MISCELL. UD #1 box 02/08/18 [Rx Confirmed 02/28/18] Cayenne 500 mg PO DAILY 02/28/18 [History Confirmed 02/28/18] Glucosamine HCl 2,000 mg PO DAILY 02/28/18 [History Confirmed 02/28/18] Insulin Lispro [Humalog KwikPen] 8 unit SUBCUT TIDAC 02/28/18 [History Confirmed 02/28/18] Krill/Huger-3/Dha/Epa/Lipids [Krill Oil 350 mg Softgel] 1 ea PO DAILY 02/28/18 [History Confirmed 02/28/18] Potassium 99 mg PO BID 02/28/18 [History Confirmed 02/28/18] PFSH Social History Smoking Status: Never smoker HPI RIGHT SHOULDER: Details: GERBER RICO is a 58 year old M here today for right shoulder pain. Patient notes that he has had right shoulder pain for about a year. He states that he had right shoulder RTC surgery in October 2013. Patient states that he has decreased shoulder range of motion. Patient notes that he had shingles 6 months ago but the rash is still there. Patient notes that his PCP gave him an injection about 1-2 months ago which was helpful for about 4 hours. He states that he had xrays through his PCP. He states that he has fired his attorneys and is doing the [facility] paperwork himself. Patient denies any recent MRI of his shoulder. He has an MRI of his brain next week to determine if he had a stroke due to decreased shoulder range of motion. ROS Const Reports system reviewed and no additional complaints, except as docu Eyes Reports system reviewed and no additional complaints, except as docu ENT Reports system reviewed and no additional complaints, except as docu Card Reports system reviewed and no additional complaints, except as docu Resp Reports system reviewed and no additional complaints, except as docu GI Reports system reviewed and no additional complaints, except as docu Reports system reviewed and no additional complaints, except as docu Musc Reports joint pain, Reports muscle weakness, Reports limited joint movement Skin/Breast Reports system reviewed and no additional complaints, except as docu Neuro Yes system reviewed and no additional complaints, except as docu Psych Reports system reviewed and no additional complaints, except as docu Endo Reports system reviewed and no additional complaints, except as docu Ortho Exam Right Shoulder Testing: Positive AROM-Forward Elevation 0-180 (20), PROM- Forward Elevation 0-180 (60) and TTP Biceps Internal Rotation: Hip Assessment AND Plan Plan patient has almost no rom of shoulder without maximal pain. right shoulder can be elevated passively to about 80 but with considerable pain/ force. even if he has retorn, he is quite stiff and has frozen shoulder picture- which may be stemming from a retear but will know more with an mri if needs surgical intervention/ preop planning picture. Patient is very tender to touch and has minimal ROM. We will request a repeat MRI, we will have it completed after the Brain MRI if possible. Follow up in [] or sooner if pain, swelling, numbness or associated symptoms, or concerns develop. All questions answered. Patient in agreement of plan. Coding Level of Care Code Off vis,est,level 4 06/19/18 1113 <Electronically signed by Ana Odonnell DO> Date Ana Odonnell DO Cosigner Signature: Date (if applicable) CC: MICROALB:CREAT Collected: 05/31/2018 Status: F Source: [facility] 9:32 AM [facility] REPOSITORY TYPE CODE TESTS RESULT OUT OF RANGE REFERENCE UNITS LAB L501.1200 NO RANGE EST. mg/dL Normal UR CREAT 149.00 LAB L502.0500 NO RANGE EST. mg/L Normal 107.0 MICROALBUMIN ,UR LAB L502.0600 <30 mg/g CRE mg/g CRE High 71.8 MALB:CREAT Performed By: #### L502.0250, L100.0100, L501.9985, L500.4050, L500.4100 #### [facility] [address] [place], [address] CBC W/DIFF, AUTOMATED Collected: 05/31/2018 Status: F Source: [place] 9:32 AM [facility] REPOSITORY TYPE CODE TESTS RESULT OUT OF RANGE REFERENCE UNITS LAB L100.1000 4.4-11.0 K/mm3 Normal WBC 6.4 LAB L100.1200 4.6-6.2 M/mm3 Normal RBC 5.40 LAB L100.1300 13.0-16.5 g/dl Normal HGB 15.8 LAB L100.1400 40-54 % Normal HCT 46.7 LAB L100.1500 80-94 fL Normal MCV 86.5 LAB L100.1600 27.0-32.0 pg Normal MCH 29.3 LAB L100.1700 32-36 g/gl Normal MCHC 33.8 LAB L100.1810 11.6-14.6 % Normal RDW CV 12.3 LAB L100.1820 35.1-43.9 fl Normal RDW SD 39.1 LAB L100.1900 150-450 K/mm3 Normal PLT 233 LAB L100.2000 6.2-12.0 fl Normal MPV 10.9 LAB L100.2100 47-70 % Normal NEUT% 59.7 LAB L100.2200 19-41 % Normal LY% 30.3 LAB L100.2300 0-10 % Normal MONO% 6.2 LAB L100.2400 0-5 % Normal EO% 3.0 LAB L100.2500 0-1 % Normal BASO% 0.6 LAB L100.2550 0.0-0.9 % Normal IM GRAN % 0.200 Result Comment: IG% - Immature Granulocytes (promyelocytes, myelocytes and metamyelocytes) > 1% indicates that a LEFT SHIFT is Present. LAB L100.2620 2.0-7.7 X10 3/uL Normal Absolute Neut 3.8 LAB L100.2720 0.83-4.51 X10 3/ul Normal Absolute Lymph 1.94 Performed By: #### L502.0250, L100.0100, L501.9985, L500.4050, L500.4100 #### [facility] [address] [place], [address] HEMOGLOBIN A1C Collected: 05/31/2018 Status: F Source: [place] 9:32 AM [facility] REPOSITORY TYPE CODE TESTS RESULT OUT OF RANGE REFERENCE UNITS LAB L501.9985 4.2-6.3 % High HGB A1C 9.3 Performed By: #### L502.0250, L100.0100, L501.9985, L500.4050, L500.4100 #### [facility] [address] [place], [address] COMPREHENSIVE METABOLIC Collected: 05/31/2018 Status: F [facility] [place] 9:[facility] AM [facility] REPOSITORY TYPE CODE TESTS RESULT OUT OF RANGE REFERENCE UNITS LAB L501.0100 74-106 mg/dL High GLU 254 Result Comment: Glucose result greater than or equal to 200 mg/dL suggests DIABETES MELLITUS per A.D.A. criteria. Please note revised GLUCOSE reference range effective 2017. LAB L501.1000 7-18 mg/dL High BUN 22 LAB L501.1100 0.70-1.30 mg/dL Normal CREAT,SERUM 1.08 Result Comment: The validity of the calculated GFR AND GFRAA in patients over 70 years has not been determined. Clinical correlation is essential. LAB L501.1110 >60 mL/min Normal EST GFR 75 Result Comment: Non- GFR Calc LAB L501.1115 >60 mL/min Normal EST GFR - AA 90 Result Comment: GFR Calc LAB L501.1300 10-20 RATIO High BUN/CRE 20.4 LAB L501.1500 6.4-8.2 g/dL T Normal PROT 7.5 LAB L501.1800 3.2-5.0 g/dL Normal ALB 3.8 LAB L501.1950 2.2-4.2 g/dL Normal GLOB 3.7 LAB L501.2000 0.9-2.4 RATIO Normal A/G 1.0 LAB L501.2200 8.5-10.1 mg/dL CA Normal 9.2 LAB L501.4100 15-37 U/L Normal AST 17 Result Comment: Slight Hemolysis, Result may be falsely increased. LAB L501.4305 45-117 U/L Normal ALK P 64 LAB L501.4405 16-61 U/L Normal ALT 30 LAB L501.4600 0.20-1.00 mg/dL Normal T BILI 0.30 LAB L501.5300 136-145 mmol/L Normal NA 139 LAB L501.5600 3.5-5.1 mmol/L Normal K 4.0 Result Comment: Slight Hemolysis, Result may be falsely increased. LAB L501.5900 98-107 mmol/L Normal CL 106 LAB L501.6100 21.0-32.0 mmol/L Normal CO2 23.0 LAB L501.6200 5-15 Normal GAP 10 Performed By: #### L502.0250, L100.0100, L501.9985, L500.4050, L500.4100 #### [facility] [address] [place], [place], [address] LIPID PROFILE Collected: 05/31/2018 Status: F Source: [place] 9:32 AM [facility] REPOSITORY TYPE CODE TESTS RESULT OUT OF RANGE REFERENCE UNITS LAB L501.4900 200 mg/dL High CHOL 262 Result Comment: <200 mg/dL Desirable 200-240 mg/dL Borderline >240 mg/dL High Risk LAB L501.5000 mg/dL Normal TRIG 167 Result Comment: The drugs N-Acetylcysteine and Metamizole may falsely depress this assay. Serum Triglycerides Reference Interval Normal <150 mg/dL Borderline high 150 - 199 mg/dL High 200 - 499 mg/dL Very High > or = 500 mg/dL LAB L501.6400 mg/dL Normal HDL 53 Result Comment: The drugs N-Acetylcysteine and Metamizole may falsely depress this assay. Reference Range HDL <40 mg/dL Low HDL Cholesterol HDL >or= 60 mg/dL High HDL Cholesterol LAB L501.6500 0-130 mg/dL High LDL 176 LAB L501.6600 5-40 mg/dL Normal VLDL 33 Performed By: #### L502.0250, L100.0100, L501.9985, L500.4050, L500.4100 #### [facility] [address] [place], [place], [id number] SHOULDER MIN 2 VIEWS Observed: 04/19/2018 Status: F Source: [place] 3:54 PM [facility] Imaging Services [address] [place] [address] Shoulder min 2 Views MR#: [id number] Acct: [id number] Name: GERBER RICO Rep #: [id number] : 1960 M 57 From: Nelson Angela MD PCP: Amish Han MD Status: REG CLI Study: Shoulder min 2 Views Date of Exam: 04/19/18 Exam# [id number] Ordering Dr: Amish Han MD STUDY: X-RAY - RIGHT SHOULDER REASON FOR EXAM: Male, 57 years old. Shoulder pain TECHNIQUE: 4 view(s) of the shoulder. COMPARISON: Prior study of 09/07/2016 FINDINGS: Normal glenohumeral articulation. Normal acromioclavicular joint. Normal acromion. Normal humeral head and visualized proximal humerus. The soft tissue structures are unremarkable. Normal visualized pulmonary apex. RAD/Shoulder min 2 Views IMPRESSION: Normal x-ray examination of the shoulder. Electronically Signed: Nelson Angela MD at 22:40 EDT , Service support , CC: Amish Han MD Communications Representative: Signed BEDSIDE GLUCOSE Collected: 03/01/2018 Status: F Source: [place] 9:55 AM [facility] REPOSITORY TYPE CODE TESTS RESULT OUT OF REFERENCE UNITS RANGE LAB L501.080 70-110 mg/dL High BEDSIDE GLU 289 Result Comment: MANAGEMENT OF PATIENT CARE PER NURSING PROTOCOL Performed By: #### L501.080 #### [facility] Point of Care [address] [place] [address] CERV SPINE 2 OR 3 Observed: 03/01/2018 Status: F Source: [place] VIEWS 8:47 AM [facility] Imaging Services [address] [place] [address] Cerv Spine 2 or 3 Views MR#: [id number] Acct: [id number] Name: GERBER RICO Rep #: [id number] : 1960 M 57 From: Arya Castillo MD PCP: Amish Han MD Status: REG [facility] Study: Cerv Spine 2 or 3 Views Date of Exam: 03/01/18 Exam# [id number] Ordering Dr: Theodora Canales MD STUDY: X-RAY - CERVICAL SPINE REASON FOR EXAM: Male, 57 years old. Epidural block TECHNIQUE: 1 intraoperative view(s) of the cervical spine were obtained. COMPARISON: None FINDINGS: Limited intraoperative C-arm film was performed as the patient has undergone epidural block at C6-7. RAD/Cerv Spine 2 or 3 Views IMPRESSION: Epidural block at C6-7 Electronically Signed: Ramon Castillo MD at 11:26 EDT , Service support , CC: Theodora Canales MD; Amish Han MD Communications Representative: Signed CBC W/DIFF, AUTOMATED Collected: 02/23/2018 Status: F Source: [place] 10:50 AM [facility] REPOSITORY TYPE CODE TESTS RESULT OUT OF RANGE REFERENCE UNITS LAB L100.1000 4.4-11.0 K/mm3 Normal WBC 6.7 LAB L100.1200 4.6-6.2 M/mm3 Normal RBC 4.90 LAB L100.1300 13.0-16.5 g/dl Normal HGB 14.1 LAB L100.1400 40-54 % Normal HCT 44.0 LAB L100.1500 80-94 fL Normal MCV 89.8 LAB L100.1600 27.0-32.0 pg Normal MCH 28.8 LAB L100.1700 32-36 g/gl Normal MCHC 32.0 LAB L100.1810 11.6-14.6 % Normal RDW CV 13.4 LAB L100.1820 35.1-43.9 fl Normal RDW SD 43.2 LAB L100.1900 150-450 K/mm3 Normal PLT 302 LAB L100.2000 6.2-12.0 fl Normal MPV 9.7 LAB L100.2100 47-70 % Normal NEUT% 60.2 LAB L100.2200 19-41 % Normal LY% 30.9 LAB L100.2300 0-10 % Normal MONO% 6.4 LAB L100.2400 0-5 % Normal EO% 1.9 LAB L100.2500 0-1 % Normal BASO% 0.3 LAB L100.2550 0.0-0.9 % Normal IM GRAN % 0.300 Result Comment: IG% - Immature Granulocytes (promyelocytes, myelocytes and metamyelocytes) > 1% indicates that a LEFT SHIFT is Present. LAB L100.2620 2.0-7.7 X10 3/uL Normal Absolute Neut 4.0 LAB L100.2720 0.83-4.51 X10 3/ul Normal Absolute Lymph 2.07 Performed By: #### L100.0100 #### [facility] [address] [place], [place], [id number] COMPREHENSIVE METABOLIC Collected: 02/23/2018 Status: F Source: MAC HUI 10:50 AM [facility] REPOSITORY Order Comment: Comments: B6 #[id number] PLASMA FROZEN PFL TYPE CODE TESTS RESULT OUT OF RANGE REFERENCE UNITS LAB L501.0100 74-106 mg/dL Normal GLU 100 Result Comment: Fasting Glucose result from 100 to 125 mg/dL suggests IMPAIRED HOMEOSTASIS per A.D.A. criteria. Please note revised GLUCOSE reference range effective 2017. LAB L501.1000 7-18 mg/dL Normal BUN 16 LAB L501.1100 0.70-1.30 mg/dL Normal CREAT,SERUM 0.91 Result Comment: The validity of the calculated GFR AND GFRAA in patients over 70 years has not been determined. Clinical correlation is essential. LAB L501.1110 >60 mL/min Normal EST GFR 91 Result Comment: Non- GFR Calc LAB L501.1115 >60 mL/min Normal EST GFR - AA 110 Result Comment: GFR Calc LAB L501.1300 10-20 RATIO Normal BUN/CRE 17.6 LAB L501.1500 6.4-8.2 g/dL T Normal PROT 7.5 LAB L501.1800 3.2-5.0 g/dL Normal ALB 3.6 LAB L501.1950 2.2-4.2 g/dL Normal GLOB 3.9 LAB L501.2000 0.9-2.4 RATIO Normal A/G 0.9 LAB L501.2200 8.5-10.1 mg/dL CA Normal 9.1 LAB L501.4100 15-37 U/L Normal AST 21 LAB L501.4305 45-117 U/L Normal ALK P 83 LAB L501.4405 16-61 U/L Normal ALT 61 LAB L501.4600 0.20-1.00 mg/dL T Normal BILI 0.30 LAB L501.5300 136-145 mmol/L NA Normal 139 LAB L501.5600 3.5-5.1 mmol/L K Normal 4.0 LAB L501.5900 98-107 mmol/L CL Normal 105 LAB L501.6100 21.0-32.0 mmol/L Normal CO2 28.0 LAB L501.6200 5-15 Normal GAP 6 Performed By: #### L500.4050, L500.4100, L501.9520 #### [facility] [address] [place], [address] LIPID PROFILE Collected: 02/23/2018 Status: F Source: [place] 10:50 AM [facility] REPOSITORY Order Comment: Comments: B6 #[id number] PLASMA FROZEN PFL TYPE CODE TESTS RESULT OUT OF RANGE REFERENCE UNITS LAB L501.4900 200 mg/dL High CHOL 354 Result Comment: <200 mg/dL Desirable 200-240 mg/dL Borderline >240 mg/dL High Risk LAB L501.5000 mg/dL High TRIG 361 Result Comment: The drugs N-Acetylcysteine and Metamizole may falsely depress this assay. Serum Triglycerides Reference Interval Normal <150 mg/dL Borderline high 150 - 199 mg/dL High 200 - 499 mg/dL Very High > or = 500 mg/dL LAB L501.6400 mg/dL Normal HDL 60 Result Comment: The drugs N-Acetylcysteine and Metamizole may falsely depress this assay. Reference Range HDL <40 mg/dL Low HDL Cholesterol HDL >or= 60 mg/dL High HDL Cholesterol LAB L501.6500 0-130 mg/dL High LDL 222 LAB L501.6600 5-40 mg/dL High VLDL 72 Performed By: #### L500.4050, L500.4100, L501.9520 #### [facility] [address] [place], [address] THYROID STIM HORMONE Collected: 02/23/2018 Status: F Source: MAC (TSH) 10:50 AM [facility] REPOSITORY Order Comment: Comments: B6 #[id number] PLASMA FROZEN PFL TYPE CODE TESTS RESULT OUT OF RANGE REFERENCE UNITS LAB L501.9520 0.358-3.74 uIU/mL Normal TSH 1.77 Performed By: #### L500.4050, L500.4100, L501.9520 #### [facility] [address] [place], [address] MICROALB:CREAT Collected: 02/23/2018 Status: F Source: MAC RATIO,RANDOM UR 10:50 AM [facility] REPOSITORY TYPE CODE TESTS RESULT OUT OF RANGE REFERENCE UNITS LAB L501.1200 NO RANGE EST. mg/dL Normal UR CREAT 105.00 LAB L502.0500 NO RANGE EST. mg/L Normal 35.5 MICROALBUMIN ,UR LAB L502.0600 <30 mg/g CRE mg/g CRE High 33.8 MALB:CREAT Performed By: #### L502.0250 #### [facility] [address] [place], [address] VITAMIN B12 Collected: 02/23/2018 Status: F Source: MAC 10:50 AM [facility] REPOSITORY TYPE CODE TESTS RESULT OUT OF REFERENCE UNITS RANGE LAB L503.0105 211-911 pg/mL High Vitamin B12 974 Performed By: #### L503.0105 #### [facility] [address] [place], [address] MISCELLANEOUS LAB Collected: 02/23/2018 Status: F Source: MAC PROCEDURE 10:50 AM [facility] REPOSITORY Order Comment: Comments: B6 #[id number] PLASMA FROZEN PFL Test(s) Ordered: B6 #[id number] PLASMA FROZEN PFL TYPE CODE TESTS RESULT OUT OF RANGE REFERENCE UNITS LAB L801.1541 Normal [facility] LAB TEST Result Comment: TEST RESULT UNITS REFERENCE INTERVAL Vitamin B6 12.1 ug/L 5.3 - 46.7 DISCLAIMER This test was developed and its performance characteristics determined by [facility]. It has not been cleared or approved by the U.S. Food and Drug Administration. TESTING PERFORMED AT [facility]. ORIGINAL REPORT ON FILE IN LAB CONTAINS ADDITIONAL TEST SITE INFORMATION. Performed By: #### L801.1541 #### [facility] [place], [address] VITAMIN B1, THIAMINE Collected: 02/23/2018 Status: F Source: MAC 10:50 AM [facility] REPOSITORY Order Comment: Comments: B6 #[id number] PLASMA FROZEN PFL TYPE CODE TESTS RESULT OUT OF RANGE REFERENCE UNITS LAB L3300.8000 66.5-200.0 nmol/L Normal VIT B1 183.0 Result Comment: This test was developed and its performance characteristics determined by [facility]. It has not been cleared or approved by the Food and Drug Administration. Performed at: [address] [id number] Pole Maker: Tio Holguin MD, Phone: [phone] Performed By: #### L3300.8000 #### [facility] (refer to report for specific site) refer to report for address and phone number BASIC METABOLIC Collected: 02/14/2018 Status: F Source: MAC PROFILE (BMP) 5:11 PM [facility] REPOSITORY Order Comment: Send Results To: PCP Reason for Laboratory Test Follow-up for hyperglycemia TYPE CODE TESTS RESULT OUT OF RANGE REFERENCE UNITS LAB L501.0100 74-106 mg/dL High GLU 404 Result Comment: Glucose result greater than or equal to 200 mg/dL suggests DIABETES MELLITUS per A.D.A. criteria. Please note revised GLUCOSE reference range effective 2017. LAB L501.1000 7-18 mg/dL High BUN 22 LAB L501.1100 0.70-1.30 mg/dL Normal CREAT,SERUM 1.07 Result Comment: The validity of the calculated GFR AND GFRAA in patients over 70 years has not been determined. Clinical correlation is essential. LAB L501.1110 >60 mL/min Normal EST GFR 76 Result Comment: Non- GFR Calc LAB L501.1115 >60 mL/min Normal EST GFR - AA 91 Result Comment: GFR Calc LAB L501.1300 10-20 RATIO High BUN/CRE 20.6 LAB L501.2200 8.5-10.1 mg/dL CA Normal 8.9 LAB L501.5300 136-145 mmol/L Low NA 135 LAB L501.5600 3.5-5.1 mmol/L K Normal 4.8 LAB L501.5900 98-107 mmol/L CL Normal 99 LAB L501.6100 21.0-32.0 mmol/L Normal CO2 27.0 LAB L501.6200 5-15 Normal GAP 9 Performed By: #### L500.2500 #### [facility] [address] [facility] [place], [address] 12 LEAD ELECTROCARDIOGRAM Observed: 02/09/2018 Status: F Source: [place] 2:54 PM [facility] REPOSITORY [facility] [address] [place] [address] 12 Lead EKG 02/06/18 1350 MR#: [id number] Acct: [id number] Name: GERBER RICO Rep #: [id number] : 1960 57 From: Mir Yi MD Attending Dr: Steve Kuhn MD Status: DIS IN Ordering Dr: Gretchen Asher DO Date: 02/06/18 Location: MS3 Sex: M C Admitted: 02/06/18 Test Reason : DYSRHYTHMIA Blood Pressure : / mmHG Vent. Rate : 084 BPM Atrial Rate : 084 BPM P-R Int : 134 ms QRS Dur : 082 ms QT Int : 348 ms P-R-T Axes : 068 -09 043 degrees QTc Int : 411 ms Normal sinus rhythm Normal ECG Confirmed by ARTHUR MONSON, MIR ([id number]), research editor RAYNA NAZARIO ([id number]) on 02/09/2018 2:53:32 PM Referred By: TRAVIS Confirmed By:MIR YI MD 02/09/18 1453 Date Mir Yi MD CC: No Primary Care Physician; Steve Kuhn MD; Gretchen Asher DO Signed DISCHARGE SUMMARY Observed: 02/08/2018 Status: F Source: [place] 4:58 PM [facility] Medical Records Department [address] [place] [address] Discharge Summary 02/08/18 1101 MR#: [id number] Acct: [id number] Name: GERBER RICO Rep #: [id number] : 1960 57 From: Steve Kuhn MD PCP: Care Physician, No Primary Status: DIS IN Y Location: [place] [address] Discharge Date and Diagnosis Date of Admission: 02/06/18 Date of Discharge: 02/08/18 - Primary Discharge Diagnosis Active and Suspected Problems Post herpetic neuralgia (Acute) - Secondary Discharge Diagnosis Chronic Problems Peripheral neuropathy (Chronic) Hyperlipidemia (Chronic) Type 2 diabetes mellitus (Chronic) Benign essential hypertension (Chronic) Hospital Course and Treatment Imaging Results: Impressions Cervical Spine X-Ray 02/06/18 14:35 IMPRESSION: Disc space narrowing at the C5-C6 level. Electronically Signed: Michael Allen MD at 15:19 EDT Tel [phone], Service support , Laboratory Results Glucose 449 H (74-106) mg/dL POC Glucose 472 H* 269 H (70-110) mg/dL Glucose (74-106) mg/dL POC Glucose 195 H (70-110) mg/dL Pain Management Operations: None Procedures: None Summary of Care Provided: The patient is a 57 year old M who was admitted because of post hepatic neuralgia. Inpatient treatment included escalation of his previous home pain regimen from gabapentin 300 mg 3 times daily to gabapentin 600 mg twice daily. Other treatment included amitriptyline 100 mg p.o. daily; morphine IV as needed and oxycodone p.o. as needed. Initially, hydrocortisone cream was applied to his right arm but because patient reported increasing pain, hydrocortiosne was discontinued and topical lidocaine therapy was started. Pain management was consulted who recommended outpatient follow up at the clinic for management of C5-C6 disc narrowing. Patient was noted to have a severe hypoglycemia and this was treated with a basal, prandial and correction scale insulin. He was prednisone prior to his hospitalization. Initially prednisone was continued in the hospital but since he was not getting any relief from the prednisone and his blood sugar was elevated, prednisone was discontinued. Patient noted a considerable reduction in the pain of his right arm; and his blood glucose was getting better controlled. Patient was subsequently discontinued on a pain regimen for his postherpetic neuralgia; and he was prescribed a basal insulin, prandial insulin and metformin for management of his blood glucose. Patient was instructed to follow up with endocrinology. He reported that previously he was seeing an credit investigator for diabetes type 2. Diabetic teaching was provided. Patient was instructed to follow with Dr. Canales and with his PCP. [] Discharge Diet: Carb Control Diet Discharge Activity: Return to Normal Activity Home Medications: Medications to take at Discharge Albuterol Inhaler [Ventolin Hfa] 2 puff INHALATION DAILY PRN 06/11/13 Ascorbate Calcium [Vitamin C] 500 mg PO DAILY 08/15/13 Cholecalciferol (Vitamin D3) [Vitamin D3] 500 unit PO DAILY 08/15/13 Huger-3S/Dha/Epa/Fish Oil/D3 [Fish Oil-Vit D3 Softgel] 1 each PO DAILY 08/15/13 Oxycodone HCl/Acetaminophen [Percocet 5/325] 1 tablet PO Q6H PRN PRN 5 Days #20 tablet 01/25/18 Acetaminophen [Tylenol Tablet] 650 mg PO Q6H PRN PRN #60 tab 02/08/18 Amitriptyline HCl [Elavil] 100 mg PO DAILY #30 tab 02/08/18 Bisacodyl [Dulcolax] 5 mg PO DAILY PRN PRN 14 Days #14 tab 02/08/18 Gabapentin [Neurontin] 600 mg PO TIDCM #90 cap 02/08/18 Insulin Glargine [Lantus SoloStar Pen] 25 units SC QHS 30 Days #2 pen 02/08/18 Insulin Lispro [Humalog KwikPen] 5 unit SC TIDAC 30 Days #2 insuln.pen 02/08/18 Lancets/Blood Glucose Strips [Fora [id number] Strp-Lnct] 1 ea MC TID #1 combo..pkg 02/08/18 Lidocaine [Lidocaine 5%] 1 gm TOPICAL TID 14 Days #1 tube 02/08/18 Lisinopril [Prinivil] 5 mg PO DAILY #30 tab 02/08/18 Metformin HCl 500 mg PO BID 30 Days #60 tab 02/08/18 Altha, Insulin Disposable [Novofine Autocover 30G Needle] 1 ea SAEIDCELL. UD #1 box 02/08/18 Oxycodone [Oxyir] 5 mg PO Q6H PRN PRN 5 Days #20 tab 02/08/18 Following Prescrptions Were Given to Patient: Acetaminophen [Tylenol Tablet] 650 mg PO Q6H PRN PRN #60 tab PRN Reason: Pain Oxycodone [Oxyir] 5 mg PO Q6H PRN PRN 5 Days #20 tab PRN Reason: Pain Amitriptyline HCl [Elavil] 100 mg PO DAILY #30 tab Bisacodyl [Dulcolax] 5 mg PO DAILY PRN PRN 14 Days #14 tab PRN Reason: Constipation Insulin Glargine [Lantus SoloStar Pen] 25 units SC QHS 30 Days #2 pen Insulin Lispro [Humalog KwikPen] 5 unit SC TIDAC 30 Days #2 insuln.pen Lisinopril [Prinivil] 5 mg PO DAILY #30 tab Altha, Insulin Disposable [Novofine Autocover 30G Needle] 1 ea MISCELL. UD #1 box Metformin HCl 500 mg PO BID 30 Days #60 tab Gabapentin [Neurontin] 600 mg PO TIDCM #90 cap Lancets/Blood Glucose Strips [Fora [id number] Strp-Lnct] 1 ea MC TID #1 combo..pkg Lidocaine [Lidocaine 5%] 1 gm TOPICAL TID 14 Days #1 tube Primary Care Physician: Care Physician,No Primary [Primary Care Provider] - Please follow up with your Primary Care Physician in: one to two weeks Please Follow Up With: Theodora Canales MD When: one to two weeks Additional Instructions: Check BMP within one week Disposition: Home Patient Condition:: Good Medical Necessity - Tobacco Use Smoking Status: Never smoker Tobacco Use: Chew Meaningful Use Info Meaningful Use Diagnoses (Choose all that apply): None applicable Code Visit Inpatient E AND M: [id number] Disch Hosp 02/08/18 1658 <Electronically signed by Steve Kuhn MD> Date Steve Kuhn MD Cosigner Signature (if applicable): Date CC: No Primary Care Physician; Steve Kuhn MD Signed DISCHARGE INSTRUCTION Observed: 02/08/2018 Status: F Source: [place] 11:21 AM [facility] REPOSITORY [facility] Medical Records Department [address] [place] [address] Instructions for Home/Discharge Instructions 02/08/18 1102 MR#: [id number] Acct: [id number] Name: GERBER RICO Rep #: [id number] : 1960 57 From: Steve Kuhn MD PCP: Care Physician, No Primary Status: ADM IN - Discharge Diagnoses Current Active Problems: Current Active and Chronic Problems Post herpetic neuralgia (Acute) Reason(s) for Visit for Discharge Instructions: Right extremity pain You will use the following diet at home:: Calorie/Carbohydrate Controlled (specify 1200, 1400, etc), Cardiac Your food should be the consistency of: Regular Your liquids should be the consistency of: Regular/Thin Discharge Activity: Return to Normal Activity Allergies/Adverse Reactions: Allergies hydrocodone bitartrate [From Vicodin] Adverse Reaction (Mild, Verified 01/25/18 14:29) HYPER Medications to take at Discharge Albuterol Inhaler [Ventolin Hfa] 2 puff INHALATION DAILY PRN 06/11/13 Ascorbate Calcium [Vitamin C] 500 mg PO DAILY 08/15/13 Cholecalciferol (Vitamin D3) [Vitamin D3] 500 unit PO DAILY 08/15/13 Huger-3S/Dha/Epa/Fish Oil/D3 [Fish Oil-Vit D3 Softgel] 1 each PO DAILY 08/15/13 Oxycodone HCl/Acetaminophen [Percocet 5/325] 1 tablet PO Q6H PRN PRN 5 Days #20 tablet 01/25/18 Acetaminophen [Tylenol Tablet] 650 mg PO Q6H PRN PRN #60 tab 02/08/18 Amitriptyline HCl [Elavil] 100 mg PO DAILY #30 tab 02/08/18 Bisacodyl [Dulcolax] 5 mg PO DAILY PRN PRN 14 Days #14 tab 02/08/18 Gabapentin [Neurontin] 600 mg PO TIDCM #90 cap 02/08/18 Insulin Glargine [Lantus SoloStar Pen] 25 units SC QHS 30 Days #2 pen 02/08/18 Insulin Lispro [Humalog KwikPen] 5 unit SC TIDAC 30 Days #2 insuln.pen 02/08/18 Lidocaine [Lidocaine 5%] 1 gm TOPICAL TID 14 Days #1 tube 02/08/18 Lisinopril [Prinivil] 5 mg PO DAILY #30 tab 02/08/18 Metformin HCl 500 mg PO BID 30 Days #60 tab 02/08/18 Oxycodone [Oxyir] 5 mg PO Q6H PRN PRN 5 Days #20 tab 02/08/18 The following prescriptions were given: Acetaminophen [Tylenol Tablet] 650 mg PO Q6H PRN PRN #60 tab PRN Reason: Pain Oxycodone [Oxyir] 5 mg PO Q6H PRN PRN 5 Days #20 tab PRN Reason: Pain Amitriptyline HCl [Elavil] 100 mg PO DAILY #30 tab Bisacodyl [Dulcolax] 5 mg PO DAILY PRN PRN 14 Days #14 tab PRN Reason: Constipation Insulin Glargine [Lantus SoloStar Pen] 25 units SC QHS 30 Days #2 pen Insulin Lispro [Humalog KwikPen] 5 unit SC TIDAC 30 Days #2 insuln.pen Lisinopril [Prinivil] 5 mg PO DAILY #30 tab Metformin HCl 500 mg PO BID 30 Days #60 tab Gabapentin [Neurontin] 600 mg PO TIDCM #90 cap Lidocaine [Lidocaine 5%] 1 gm TOPICAL TID 14 Days #1 tube Primary Care Physician: Care Physician,No Primary [Primary Care Provider] - Please follow up with your Primary Care Physician in: within 2 weeks Test Results: When: follow-up with your credit investigator in 1 week with blood sugar log Please Follow Up With: Theodora Canales MD When: within 1-2 weeks Proposed Discharge Date: 02/08/18 02/08/18 1121 <Electronically signed by Steve Kuhn MD> Date Steve Kuhn MD CC: No Primary Care Physician; Theodora Canales MD BEDSIDE GLUCOSE Collected: 02/08/2018 Status: F Source: [place] 11:11 AM [facility] REPOSITORY TYPE CODE TESTS RESULT OUT OF REFERENCE UNITS RANGE LAB L501.080 70-110 mg/dL High BEDSIDE GLU 195 Result Comment: MANAGEMENT OF PATIENT CARE PER NURSING PROTOCOL Performed By: #### L501.080 #### [facility] Point of Care [address] [place] [address] BEDSIDE GLUCOSE Collected: 02/08/2018 Status: F Source: MAC 6:37 AM [facility] REPOSITORY TYPE CODE TESTS RESULT OUT OF REFERENCE UNITS RANGE LAB L501.080 70-110 mg/dL High BEDSIDE GLU 269 Result Comment: Insulin Given MANAGEMENT OF PATIENT CARE PER NURSING PROTOCOL Performed By: #### L501.080 #### [facility] Point [facility] Care [address] [place] [address] GLUCOSE Collected: 02/07/2018 Status: F Source: MAC 10:24 PM [facility] REPOSITORY Order Comment: Comments: BS 472 TYPE CODE TESTS RESULT OUT OF RANGE REFERENCE UNITS LAB L501.0100 74-106 mg/dL High GLU 449 Result Comment: Glucose result greater than or equal to 200 mg/dL suggests DIABETES MELLITUS per A.D.A. criteria. Please note revised GLUCOSE reference range effective 2017. Performed By: #### L501.0100 #### [facility] [address] [place], [address] BEDSIDE GLUCOSE Collected: 02/07/2018 Status: F Source: MAC 10:10 PM [facility] REPOSITORY TYPE CODE TESTS RESULT OUT OF REFERENCE UNITS RANGE LAB L501.080 70-110 mg/dL High alert BEDSIDE GLU 472 Result Comment: MANAGEMENT OF PATIENT CARE PER NURSING PROTOCOL Performed By: #### L501.080 #### [facility] Point of Care [address] [place] [address] BEDSIDE GLUCOSE Collected: 02/07/2018 Status: F Source: MAC 4:20 PM [facility] REPOSITORY TYPE CODE TESTS RESULT OUT OF REFERENCE UNITS RANGE LAB L501.080 70-110 mg/dL High BEDSIDE GLU 297 Result Comment: MANAGEMENT OF PATIENT CARE PER NURSING PROTOCOL Performed By: #### L501.080 #### [facility] Point of Care [address] [place] [address] BEDSIDE GLUCOSE Collected: 02/07/2018 Status: F Source: MAC 11:32 AM [facility] REPOSITORY TYPE CODE TESTS RESULT OUT OF REFERENCE UNITS RANGE LAB L501.080 70-110 mg/dL High BEDSIDE GLU 333 Result Comment: MANAGEMENT OF PATIENT CARE PER NURSING PROTOCOL Performed By: #### L501.080 #### [facility] Point of Care [address] [place] [address] BEDSIDE GLUCOSE Collected: 02/07/2018 Status: F Source: MAC 6:47 AM [facility] REPOSITORY TYPE CODE TESTS RESULT OUT OF REFERENCE UNITS RANGE LAB L501.080 70-110 mg/dL High alert BEDSIDE GLU 452 Result Comment: Insulin Given Dr Orders Followed MANAGEMENT OF PATIENT CARE PER NURSING PROTOCOL Performed By: #### L501.080 #### [facility] Point of Care [address] [place], [place] [address] CBC W/DIFF, AUTOMATED Collected: 02/07/2018 Status: F Source: MAC 5:30 AM [facility] REPOSITORY TYPE CODE TESTS RESULT OUT OF RANGE REFERENCE UNITS LAB L100.1000 4.4-11.0 K/mm3 Normal WBC 6.1 LAB L100.1200 4.6-6.2 M/mm3 Low RBC 4.21 LAB L100.1300 13.0-16.5 g/dl Low HGB 12.5 LAB L100.1400 40-54 % Low HCT 35.5 LAB L100.1500 80-94 fL Normal MCV 84.3 LAB L100.1600 27.0-32.0 pg Normal MCH 29.7 LAB L100.1700 32-36 g/gl Normal MCHC 35.2 LAB L100.1810 11.6-14.6 % Normal RDW CV 12.0 LAB L100.1820 35.1-43.9 fl Normal RDW SD 36.0 LAB L100.1900 150-450 K/mm3 Normal PLT 206 LAB L100.2000 6.2-12.0 fl Normal MPV 10.2 LAB L100.2100 47-70 % High NEUT% 78.7 LAB L100.2200 19-41 % Low LY% 16.5 LAB L100.2300 0-10 % Normal MONO% 4.1 LAB L100.2400 0-5 % Normal EO% 0.2 LAB L100.2500 0-1 % Normal BASO% 0.2 LAB L100.2550 0.0-0.9 % Normal IM GRAN % 0.300 Result Comment: IG% - Immature Granulocytes (promyelocytes, myelocytes and metamyelocytes) > 1% indicates that a LEFT SHIFT is Present. LAB L100.2620 2.0-7.7 X10 3/uL Normal Absolute Neut 4.8 LAB L100.2720 0.83-4.51 X10 3/ul Normal Absolute Lymph 1.00 Performed By: #### L100.0100 #### [facility] [address] [place], [address] BASIC METABOLIC Collected: 02/07/2018 Status: F Source: MAC PROFILE (BMP) 5:30 AM [facility] REPOSITORY TYPE CODE TESTS RESULT OUT OF RANGE REFERENCE UNITS LAB L501.0100 74-106 mg/dL High GLU 444 Result Comment: Glucose result greater than or equal to 200 mg/dL suggests DIABETES MELLITUS per A.D.A. criteria. Please note revised GLUCOSE reference range effective 2017. LAB L501.1000 7-18 mg/dL High BUN 22 LAB L501.1100 0.70-1.30 mg/dL Normal CREAT,SERUM 0.98 Result Comment: The validity of the calculated GFR AND GFRAA in patients over 70 years has not been determined. Clinical correlation is essential. LAB L501.1110 >60 mL/min Normal EST GFR 83 Result Comment: Non- GFR Calc LAB L501.1115 >60 mL/min Normal EST GFR - AA 101 Result Comment: GFR Calc LAB L501.1255 ml/min Normal Estimated CRCL 85.87 LAB L501.1300 10-20 RATIO High BUN/CRE 22.3 LAB L501.2200 8.5-10 mg/dL Low .1 CA 8.2 LAB L501.5300 136-14 mmol/L Low 5 NA 132 LAB L501.5600 3.5-5. mmol/L Normal 1 K 4.7 LAB L501.5900 98-107 mmol/L Normal CL 98 LAB L501.6100 21.0-3 mmol/L Normal 2.0 CO2 23.0 LAB L501.6200 5-15 Normal GAP 11 Performed By: #### L500.2500 #### [facility] [address] [place], [place], [id number] BEDSIDE GLUCOSE Collected: 02/06/2018 Status: F Source: MAC 9:51 PM [facility] REPOSITORY TYPE CODE TESTS RESULT OUT OF REFERENCE UNITS RANGE LAB L501.080 70-110 mg/dL High BEDSIDE GLU 429 Result Comment: MANAGEMENT OF PATIENT CARE PER NURSING PROTOCOL Performed By: #### L501.080 #### [facility] Point of Care [address] [facility] [address] [place], [place] [id number] HISTORY AND PHYSICAL Observed: 02/06/2018 Status: F Source: MAC EXAM 5:58 PM [facility] REPOSITORY [facility] Medical Records Department [address] [place] [address] History and Physical 02/06/18 1643 MR#: [id number] Acct: [id number] Name: GERBER RICO Rep #: [id number] : 1960 57 From: Steve Kuhn MD PCP: Care Physician, No Primary Status: ADM SARI Y Location: NE3 [id number] Problem List (1) Post herpetic neuralgia Status: Acute (2) Peripheral neuropathy Status: Chronic Qualifiers: Peripheral neuropathy type: polyneuropathy, unspecified Qualified Code(s): G62.9 - Polyneuropathy, unspecified (3) Hyperlipidemia Status: Chronic Qualifiers: Hyperlipidemia type: unspecified Qualified Code(s): E78.5 - Hyperlipidemia, unspecified (4) Type 2 diabetes mellitus Status: Chronic Qualifiers: Diabetes mellitus millinery worker insulin use: without millinery worker use Diabetes mellitus complication status: with unspecified complications Qualified Code(s): E11.8 - Type 2 diabetes mellitus with unspecified complications (5) Benign essential hypertension Status: Chronic History of Present Illness Date of Admission: 02/06/18 Chief Complaint: Right arm pain for 2 weeks The patient is a 57 year old M with a significant history of right shoulder problem requiring surgery sometime in 2013. Four weeks ago he did some yard work after which he developed pain in his right arm extending to his right hand. Initially it was diagnosed as poison faby. His pain eventually subsided and then he developed a vesicular lesions. He was subsequently diagnosed with shingles. On outpatient he was placed on valacyclovir, prednisone and gabapentin. He also took some Percocet and tramadol that he had been prescribed about 3 years ago after his shoulder surgery. All these medications were not helping him. He was at our ED 3 days ago where he was referred to a pain specialist. Today at the office at a pain specialist he was given Toradol IM. Because of persistent of pain at the Pain specialist's office he was advised to come to the ED. [] Past Medical History Past Medical History (Chronic Problems): Chronic Problems Peripheral neuropathy (Chronic) Hyperlipidemia (Chronic) Type 2 diabetes mellitus (Chronic) Benign essential hypertension (Chronic) Allergies hydrocodone bitartrate [From Vicodin] Adverse Reaction (Mild, Verified 01/25/18 14:29) HYPER Home Medications: Ambulatory Orders Medication Instructions Recorded Surgical History: - - S/p R shoulder surgery Lives: Spouse/ Significant Other Smoking Status: Never smoker Tobacco Use: Chew - Chews tobacco. Reports he last chewed tobacco about 4 weeks ago. He denies ever smoking Alcohol: Rare Drugs: None - *Family History Maternal History Items: No pertinent history Paternal History Items: No pertinent history Review of Systems Skin: Reports: Wounds VTE Information - Inpt Only VTE Present on Admission: No VTE Mechan Device Prophylaxis: None VTE Pharm Prophylaxis ordered?: No Patient Problems: Active and Suspected Problems Post herpetic neuralgia (Acute) - Physical Exam General: Alert, Oriented x3 HEENT: Atraumatic, PERRLA, EOMI, Normocephalic Neck: Supple, No JVD, Negative Carotid Bruits Lungs: Clear to auscultation, Normal air movement Cardiovascular: Regular rate, No murmurs Abdomen: Bowel Sounds Present, Soft, Non Tender Extremities: - - Right arm with desquamation rashes. Excoriations on bilateral legs Neurological: Cranial nerves II-XII grossly intact Psych/Mental Status: Normal Affect, Appropriate Vital Signs Temp Pulse Resp BP Pulse Ox 97.6 F L 81 16 164/94 H 95 02/06/18 13:02 02/06/18 15:28 02/06/18 15:28 02/06/18 15:28 02/06/18 15:28 Assessment/Plan All Active Problems Post herpetic neuralgia (Acute) A 57 year old M with a significant history of right shoulder pain requiring surgery sometime in 2013. Four weeks ago he did some yard work after which he developed pain in his right arm extending to his right hand. Initially it was diagnosed as poison faby. His pain eventually subsided but he later developed a vesicular lesions. He was subsequently diagnosed with shingles. On outpatient he was placed on valacyclovir, prednisone and gabapentin. He now presents with persistent pain to his right upper extremity. 1.Postherpetic neuralgia We will continue his home gabapentin 300 mg 3 times daily. Will add amitriptyline The patient was started on Dilaudid from the ED which was giving him some relief, will continue Dilaudid. Will continue prednisone Patient stated that he has about 3 more doses of Valacyclovir will continue valacyclovir for now. Dr. Pascual was consulted to optimize pain management 2. Diabetes Type II with acute hyperglycemia The patient reports that previously he was taking short acting insulin (humalog) and was later switched to long acting insulin. He reports that after losing about 57 pounds he no longer required insulin. Because of her presentation his blood glucose was more than 500 will continue patient on low dose correction scale and ACHS blood glucose checks. The patient received 12 units of short acting insulin at the ED. Repeated glucose was 302. If blood glucose remain elevated will consider basal insulin Continue NSS infusion for an additional 1000ml 3.History of HTN Vitals every 4 hours 4.VTE Prophylaxis - Low risk Recommend ambulation Code Visit OBSV E AND M: 24715 Initial observation care L3 02/06/181757 <Electronically signed by Steve Kuhn MD> Date Steve Kuhn MD Cosigner Signature: Date (if applicable) CC: No Primary Care Physician; Steve Kuhn MD Signed BEDSIDE GLUCOSE Collected: 02/06/2018 Status: F Source: [place] 5:35 PM [facility] REPOSITORY TYPE CODE TESTS RESULT OUT OF REFERENCE UNITS RANGE LAB L501.080 70-110 mg/dL High BEDSIDE GLU 302 Result Comment: MANAGEMENT OF PATIENT CARE PER NURSING PROTOCOL Performed By: #### L501.080 #### [facility] Point of Care [address] [place] [address] EMERGENCY DEPARTMENT Observed: 02/06/2018 Status: F Source: [place] SUMMARY 4:05 PM [facility] REPOSITORY [facility] Medical Records Department [address] [place] [address] Emergency Department Summary 02/06/18 1600 MR#: [id number] Acct: [id number] Name: GERBER RICO Rep #: [id number] : 1960 57 From: Gretchen Asher DO PCP: Care Physician, No Primary Status: REG ER - ER Visit Summary Date of Service: 02/06/18 Chief Complaint: [Right arm pain] History of Present Illness: The patient is a 57 M [presents the emergency department with right arm pain that started 4 weeks ago. Patient had shingles to the right arm and has since developed a postherpetic neuralgia. Patient states that he has been having severe paroxysms of pain. Patient currently on Neurontin and prednisone as well as oxycodone for pain which has not been helping his pain. Patient was seeing pain management today and got a shot of Toradol and then had a severe paroxysm of pain where he was screaming out in pain and clutching his chest so he was sent to the ER for evaluation. Patient denies any shortness of breath. He denies any trauma to the arm. This is the same pain that he has had over the last 4 weeks. Patient has not had any fevers. Patient has no heart history. Not currently having any chest pain.] Physical Examination: [HEENT-PERRLA, EOMI. Cranial nerves II through XII grossly intact. TMs clear. Mucous membranes moist. No adenopathy. Cardiovascular-regular rate and rhythm without murmur or ectopy Lungs-clear to auscultation, chest wall stable without crepitus or subcu emphysema Abdomen-normoactive bowel sounds, soft, nontender, no rebound or rigidity, no peritoneal signs. Extremities-intact 4, normal range of motion, normal pulses, atraumatic]. Right arm-patient has brownish discoloration to right arm in a dermatomal pattern consistent with postherpetic rash. Patient has normal pulses and normal sensation. Patient has normal deep tendon reflexes plus 2 out of 4 bilaterally at the bicep, tricep, and brachioradialis. Test Results: [EKG obtained on arrival shows sinus rhythm with a ventricular rate of 84 bpm with no acute ST segment changes. CBC with differential obtained showed a white count of 6.2, he will open 13, hematocrit 39, platelets 206. Chemistry showed a sodium of 127, potassium 5.1, chloride 92, CO2 27 glucose was 520, BUN 18 and creatinine was 1.12. Troponin was less than 0.015. X-rays of the cervical spine obtained showed disc space narrowing at C5-6 otherwise nothing acute.] Emergency Department Course and Treatment: [Patient was medicated with Dilaudid and Zofran and he continued to have intermittent severe episodes of pain and had to be remedicated with Dilaudid. Patient was given 12 units of insulin subcu.] Treatment Plan: [Admit for pain management and glycemic control] Disposition: [Admit] Impression: [Intractable right arm pain secondary to postherpetic neuralgia Hyperglycemia] This note was generated with Sweepery dictation software. It may contain incorrect words, spelling, and punctuation that were not noted in review of the chart prior to signing ED Disposition - Plan for ED Patient: Chief Complaint: Other, Pain/Inj Referrals: Care Physician,No Primary [Primary Care Provider] - What to do if you have Problems For any increased pain, shortness of breath, bleeding, nausea or vomiting, chest pain, or any unexpected problems, contact your Primary Care Provider. Call [facility] ([phone]) or report to the closest Emergency Room. Call 911 if necessary. 02/06/18 1605 <Electronically signed by Gretchen Asher DO> Date Gretchen Asher DO Cosigner Signature (If Indicated): Date CC: No Primary Care Physician CBC W/DIFF, AUTOMATED Collected: 02/06/2018 Status: F Source: [place] 1:49 PM [facility] REPOSITORY TYPE CODE TESTS RESULT OUT OF RANGE REFERENCE UNITS LAB L100.1000 4.4-11.0 K/mm3 Normal WBC 6.2 LAB L100.1200 4.6-6.2 M/mm3 Low RBC 4.59 LAB L100.1300 13.0-16.5 g/dl Normal HGB 13.2 LAB L100.1400 40-54 % Low HCT 38.8 LAB L100.1500 80-94 fL Normal MCV 84.5 LAB L100.1600 27.0-32.0 pg Normal MCH 28.8 LAB L100.1700 32-36 g/gl Normal MCHC 34.0 LAB L100.1810 11.6-14.6 % Normal RDW CV 12.6 LAB L100.1820 35.1-43.9 fl Normal RDW SD 38.3 LAB L100.1900 150-450 K/mm3 Normal PLT 206 LAB L100.2000 6.2-12.0 fl Normal MPV 9.7 LAB L100.2100 47-70 % High NEUT% 71.2 LAB L100.2200 19-41 % Normal LY% 20.4 LAB L100.2300 0-10 % Normal MONO% 6.9 LAB L100.2400 0-5 % Normal EO% 1.0 LAB L100.2500 0-1 % Normal BASO% 0.3 LAB L100.2550 0.0-0.9 % Normal IM GRAN % 0.200 Result Comment: IG% - Immature Granulocytes (promyelocytes, myelocytes and metamyelocytes) > 1% indicates that a LEFT SHIFT is Present. LAB L100.2620 2.0-7.7 X10 3/uL Normal Absolute Neut 4.4 LAB L100.2720 0.83-4.51 X10 3/ul Normal Absolute Lymph 1.27 Performed By: #### L100.0100 #### [facility] [address] [place], [place], [address] BASIC METABOLIC Collected: 02/06/2018 Status: F Source: [facility] ([facility]) 1:49 PM [facility] REPOSITORY TYPE CODE TESTS RESULT OUT OF RANGE REFERENCE UNITS LAB L501.0100 74-106 mg/dL High alert GLU 520 Result Comment: Critical Result(s) Called at: 14:23:16 02/06/2018 by: Dana Pickering Glucose result greater than or equal to 200 mg/dL suggests DIABETES MELLITUS per A.D.A. criteria. Please note revised GLUCOSE reference range effective 2017. LAB L501.1000 7-18 mg/dL Normal BUN 18 LAB L501.1100 0.70-1.30 mg/dL Normal CREAT,SERUM 1.12 Result Comment: The validity of the calculated GFR AND GFRAA in patients over 70 years has not been determined. Clinical correlation is essential. LAB L501.1110 >60 mL/min Normal EST GFR 72 Result Comment: Non- GFR Calc LAB L501.1115 >60 mL/min Normal EST GFR - AA 87 Result Comment: GFR Calc LAB L501.1255 ml/min Normal Estimated CRCL 75.14 LAB L501.1300 10-20 RATIO Normal BUN/CRE 16.1 LAB L501.2200 8.5-10 mg/dL Normal .1 CA 8.8 LAB L501.5300 136-14 mmol/L Low 5 NA 127 LAB L501.5600 3.5-5. mmol/L Normal 1 K 5.1 Result Comment: Slight Hemolysis, Result may be falsely increased. LAB L501.5900 98-107 mmol/L Low CL 92 LAB L501.6100 21.0-32.0 mmol/L Normal CO2 27.0 LAB L501.6200 5-15 Normal GAP 8 Performed By: #### L500.2500, L501.4010 #### [facility] [address] [place], [place], [address] TROPONIN-I Collected: 02/06/2018 Status: F Source: [facility] 1:49 PM [facility] REPOSITORY TYPE CODE TESTS RESULT OUT OF RANGE REFERENCE UNITS LAB L501.4010 <0.045 ng/mL Normal < 0.015 TROPONIN-I Result Comment: TROPONIN-I EXPECTED VALUES <0.045 Negative 0.045 - 0.590 Consistent with Cardiac Damage > OR = 0.600 Critical Value Not every elevated troponin is indicative of LA. These values should be used with clinical judgement in examining the patient's clinical picture for diagnosis. To establish a diagnosis of LA versus myocardial injury, there must be a demonstrated rise and/or fall in the troponin values, in addition to ischemic symptoms, EKG changes, new regional wall motion abnormality, and/or angiographical evidence. PLEASE NOTE: REFERENCE RANGES EDITED 17 Performed By: #### L500.2500, L501.4010 #### [facility] [address] [place], [place], [address] HEMOGLOBIN A1C Collected: 02/06/2018 Status: F Source: [facility] 1:49 PM [facility] REPOSITORY Order Comment: Comments: Add on test TYPE CODE TESTS RESULT OUT OF RANGE REFERENCE UNITS LAB L501.9985 4.2-6.3 % High HGB A1C 15.5 Performed By: #### L501.9985 #### [facility] [address] [place], [address] CERV SPINE 2 OR 3 Observed: 02/06/2018 Status: F Source: [place] VIEWS 1:37 PM [facility] REPOSITORY [facility] Imaging Services [address] [place] [address] Cerv Spine 2 or 3 Views MR#: [id number] Acct: [id number] Name: GERBER RICO Rep #: [id number] : 1960 M 57 From: Michael Allen MD PCP: Care Physician, No Primary Status: REG ER Study: Cerv Spine 2 or 3 Views Date of Exam: 02/06/18 Exam# [id number] Ordering Dr: Gretchen Asher DO STUDY: X-RAY - CERVICAL SPINE REASON FOR EXAM: Male, 57 years old. Severe neck pain and right arm pain. TECHNIQUE: 4 view(s) of the cervical spine were obtained. COMPARISON: None FINDINGS: Normal anterior atlantoaxial articulation. Normal odontoid process. There is straightening of the normal cervical lordosis. Normal vertebral bodies and endplates. Mild degree of disc space narrowing at the C5-C6 level. Normal visualized intervertebral neuroforamina. The soft tissue structures are unremarkable. RAD/Cerv Spine 2 or 3 Views IMPRESSION: Disc space narrowing at the C5-C6 level. Electronically Signed: Michael Allen MD at 15:19 EDT Tel [phone], Service support , CC: No Primary Care Physician; Gretchen Asher DO Communications Representative: Signed DISCHARGE INSTRUCTION Observed: 02/03/2018 Status: F Source: [facility] 1:28 PM [facility] Medical Records Department [address] [place] [address] Discharge Instruction 02/03/18 1327 MR#: [id number] Acct: [id number] Name: GERBER RICO Rep #: [id number] : 1960 57 From: Hans Prasad MD PCP: Care Physician, No Primary Status: REG ER ED Disposition - Plan for ED Patient: Disposition: Home or Assisted Living Chief Complaint: Other, Pain/Inj Instructions: ED Shingles Referrals: Theodora Canales MD [STAFF PHYSICIAN] - Additional Instructions: take 2 tabs of Neurontin 3 times per day What to do if you have Problems For any increased pain, shortness of breath, bleeding, nausea or vomiting, chest pain, or any unexpected problems, contact your Primary Care Provider. Call [facility] ([phone]) or report to the closest Emergency Room. Call 911 if necessary. 02/03/18 1328 <Electronically signed by Hans Prasad MD> Date Hans Prasad MD Cosigner Signature (If Indicated): Date CC: No Primary Care Physician EMERGENCY DEPARTMENT Observed: 02/03/2018 Status: F Source: [facility] SUMMARY 1:27 PM [facility] Medical Records Department [address] [place] [address] Emergency Department Summary 02/03/18 1325 MR#: [id number] Acct: [id number] Name: GERBER RICO Rep #: [id number] : 1960 57 From: Hans Prasad MD PCP: Hanna Physician, No Primary Status: REG ER - ER Visit Summary Date of Service: 02/03/18 Chief Complaint: Shingles History of Present Illness: The patient is a 57 M with history of shingles, it is worse over the past few weeks. He is on gabapentin, as well as opiate analgesics at home. Since he pulled on his arm until he makes himself self pass out so the pain is gone. Physical Examination: He does appear in some distress,, he is a healing rash on his right arm, there are no signs of infection. Emergency Department Course and Treatment: Patient will be given IM morphine, he is told to increase his Neurontin from 900 mg a day to 1800 mg a day. He will be referred to pain management. Impression: Herpes zoster This note was generated with Sweepery dictation software. It may contain incorrect words, spelling, and punctuation that were not noted in review of the chart prior to signing ED Disposition - Plan for ED Patient: Chief Complaint: Other, Pain/Inj Referrals: Care Physician,No Primary [Primary Care Provider] - What to do if you have Problems For any increased pain, shortness of breath, bleeding, nausea or vomiting, chest pain, or any unexpected problems, contact your Primary Care Provider. Call [facility] ([phone]) or report to the closest Emergency Room. Call 911 if necessary. 02/03/18 1327 <Electronically signed by Hans Prasad MD> Date Hans Prasad MD Cosigner Signature (If Indicated): Date CC: No Primary Care Physician EMERGENCY DEPARTMENT Observed: 01/25/2018 Status: F Source: [facility] SUMMARY 7:00 PM [facility] REPOSITORY [facility] Medical Records Department [address] [place] [address] Emergency Department Summary 01/25/18 1618 MR#: [id number] Acct: [id number] Name: GERBER RICO Rep #: [id number] : 1960 57 From: Madi Vasquez MD PCP: Care Physician, No Primary Status: DEP ER - ER Visit Summary Date of Service: 01/25/18 Chief Complaint: Shingles History of Present Illness: The patient is a 57 M with no primary care physician. He reports that he has a rash that began on his right arm approximately 17 days ago. He was seen at urgent care and placed on prednisone which she finished 2 days ago. He went back 2 days ago and was started on Valtrex and gabapentin. He has been taking ibuprofen and tramadol for pain reports that his pain is uncontrolled. Describes as a sharp stabbing pain throughout his right arm. Is 10 out of 10 in severity. Physical Examination: Vitals: Stable. Afebrile. General: Well-nourished and well-developed. Head: Normocephalic atraumatic. Neck: Supple, no lymphadenopathy. No JVD. Nontender. Cardiovascular: Regular rate and rhythm. No murmurs. Respiratory: No respiratory distress. Clear to auscultation bilaterally. Abdominal: Soft, nontender, nondistended, normal bowel sounds. No guarding, rebound, or peritoneal signs. Back: Nontender. Extremities: Nontender, no edema. Skin:Scabbed lesions on the right arm and shoulder in a C5- C6 distribution with no surrounding erythema to suggest infection. Neurologic: Alert and oriented 3. Cranial nerves II through XII are intact. Normal strength and sensation. Psych: Normal affect. Emergency Department Course and Treatment: Patient was treated with a milligram of Dilaudid IM. He was also given 2 Percocet p.o. and another dose of prednisone. Treatment Plan: I suggest the patient continue the Valtrex that he was prescribed as well as the gabapentin in hopes this will help decrease the risk of postherpetic neuralgia. He will be given a prescription for Percocet as well as another prednisone taper to attempt to help with the pain as well. Instructed to follow-up Dr. Reid in 1 week if not improving. Disposition: To home in improved and stable condition. Impression: 1. Shingles in the C5/C6 dermatomes on right. This note was generated with Sweepery dictation software. It may contain incorrect words, spelling, and punctuation that were not noted in review of the chart prior to signing ED Disposition - Plan for ED Patient: Disposition: Home or Assisted Living Chief Complaint: Other, Pain/Inj Instructions: ED Shingles Prescriptions: Oxycodone HCl/Acetaminophen [Percocet 5/325] 1 tablet PO Q6H PRN PRN 5 Days #20 tablet PRN Reason: Pain Prednisone 10 mg PO DAILY #63 tablet Referrals: Shay Reid MD [STAFF PHYSICIAN] - 1 Week if not improving What to do if you have Problems For any increased pain, shortness of breath, bleeding, nausea or vomiting, chest pain, or any unexpected problems, contact your Primary Care Provider. Call [facility] ([phone]) or report to the closest Emergency Room. Call 911 if necessary. 01/25/18 1900 <Electronically signed by Madi Vasquez MD> Date Madi Vasquez MD Cosigner Signature (If Indicated): Date CC: No Primary Care Physician PROGRESS Observed: 01/23/2018 Status: COMPLETED Source: [place] 10:15 AM [facility] REPOSITORY HNO ID: [id number] Author: Tonia Seals Service: (none) Author Type: Physician Online Marketing Analyst Type: Progress Notes Filed: 01/23/2018 1:53 PM Note Text: 01/23/2018 Patient presents with: Rash SUBJECTIVE: This is a 57 year old that is here today for Complaint(s) of rash x 2.5 weeks. He was seen by FM initially and dx with possible contact dermatitis/poison faby. Placed on prednisone. overall rash continued to worsen. Pain was present in the area on right UE prior to rash starting. No itchy associated. States he had a fever initially, but that resolved. PMH of chicken pox, no previous hx of shingles. Rash is now scabbed over, but continues with pain. Started with blistery lesions. lcoated only on the right UE from proximal UE to forearm. Rates pain 10/10. No past medical history on file. ALLERGIES Patient has no known allergies. MEDICATIONS Current Outpatient Prescriptions: ibuprofen (MOTRIN ORAL) Motrin oral valACYclovir (VALTREX) 1 gram tab Take 1 tablet by mouth three times daily for 7 days. gabapentin (NEURONTIN) 300 mg capsule Take 1 capsule by mouth three times daily as needed for up to 7 days. ibuprofen (MOTRIN) 800 mg tablet Take 1 tablet by mouth every 8 hours as needed for Pain. Take with food. predniSONE (DELTASONE) 10 mg tablet Take 40 mg x 3 days, 20 mg x 3 days, 10 mg x 3 days. Take with food, once daily No current facility-administered medications for this visit. SOCIAL HISTORY Social History Marital status: Spouse name: Years of education: Number of children: Social History Main Topics Smoking status: Never Smoker Smokeless tobacco: Current User REVIEW OF SYSTEMS All other reviewed and negative other than HPI. OBJECTIVE: BP 108/80 Pulse 100 Temp 36 ?C (96.8 ?F) (Left Tympanic) Resp 16 Wt 74.8 kg (165 lb) APPEARANCE Well appearing, alert, in no acute distress, well-hydrated, well nourished. SKIN Skin: Scabbed vesicles on an erythematous base clustered in a dermatomal distribution located on right UE. No overlying erythema. ASSESSMENT/PLAN: 1. Herpes zoster without complication - ICD9: 053.9, ICD10: B02.9 >72 hours, however, pain worsening and new lesions within the last 3-4 days, will start Valtrex. Advise close f/u with PCP for recheck. Reviewed red flags and when to seek care sooner in ER or for uncontrolled pain. - VALACYCLOVIR 1 GRAM TABLET - GABAPENTIN 300 MG CAPSULE - IBUPROFEN 800 MG TABLET The patient indicates understanding of these issues and agrees with the plan. Tonia Seals PA-C 01/23/2018 01/23/2018 Patient presents with: Rash SUBJECTIVE: This is a 57 year old that is here today for Complaint(s) of Rash. Began 2 1/2 weeks ago. Saw Hannah Wells on 01/16 who thought it was poison faby. Prescribed prednisone which did not relieve the rash. Has also been taking neosporin + pain and has now gone through 3 bottles. Has also tried 600mg of motrin, lidocaine, ice packs with no relief. 2-3 days ago rash started burning. Is experiencing significant 10/10 pain. Says pain feels like someone is skinning with a torch. Had chicken pox as a child and has not had the shingles vaccine. Rash started as painless vesicles and once blisters started healing that's when pain arrived. Rash is diffuse dark red erythematous patches. Said had high fevers and chills when rash first began. Denies N/V/D. Admits to numbness and tingling in thumb on R side. No past medical history on file. ALLERGIES Patient has no known allergies. MEDICATIONS Current Outpatient Prescriptions: ibuprofen (MOTRIN ORAL) Motrin oral predniSONE (DELTASONE) 10 mg tablet Take 40 mg x 3 days, 20 mg x 3 days, 10 mg x 3 days. Take with food, once daily No current facility-administered medications for this visit. SOCIAL HISTORY Social History Marital status: Spouse name: Years of education: Number of children: Social History Main Topics Smoking status: Never Smoker Smokeless tobacco: Current User REVIEW OF SYSTEMS SKIN: Positive for changes in pigmentation: dark red erythematous patches and rash: present on R arm All other reviewed and negative other than HPI. OBJECTIVE: BP 108/80 Pulse 100 Temp 36 ?C (96.8 ?F) (Left Tympanic) Resp 16 Wt 74.8 kg (165 lb) SKIN Skin color, texture, turgor normal, no suspicious rashes or lesions, Positives: Erythema: scattered, neck, arms and wrists, Hyperpigmentation: scattered, Pigmentation Changes, Rash: Dark red erythematous patches diffusely on R arm with vesicles. Assessment and Plan: SARKIS Observed: 01/23/2018 Status: COMPLETED Source: [place] 10:15 AM [facility] REPOSITORY Office Visit (WSTR) GERBER RICO ([id number]) 1960 M Date Time Provider Department 01/23/18 10:15 AM TONIA SEALS) [facility]UD[facility] During your visit today, we recorded the following information about you: Temperature Pulse Respiration Blood pressure 96.8 degrees 100/minute 16/minute 108/80 Weight 74.8 kg Tonia Seals PA-C 01/23/2018 1:53 PM Signed 01/23/2018 Patient presents with: Rash SUBJECTIVE: This is a 57 year old that is here today for Complaint(s) of rash x 2.5 weeks. He was seen by FM initially and dx with possible contact dermatitis/poison faby. Placed on prednisone. overall rash continued to worsen. Pain was present in the area on right UE prior to rash starting. No itchy associated. States he had a fever initially, but that resolved. PMH of chicken pox, no previous hx of shingles. Rash is now scabbed over, but continues with pain. Started with blistery lesions. lcoated only on the right UE from proximal UE to forearm. Rates pain 10/10. No past medical history on file. ALLERGIES Patient has no known allergies. MEDICATIONS Current Outpatient Prescriptions: ibuprofen (MOTRIN ORAL) Motrin oral valACYclovir (VALTREX) 1 gram tab Take 1 tablet by mouth three times daily for 7 days. gabapentin (NEURONTIN) 300 mg capsule Take 1 capsule by mouth three times daily as needed for up to 7 days. ibuprofen (MOTRIN) 800 mg tablet Take 1 tablet by mouth every 8 hours as needed for Pain. Take with food. predniSONE (DELTASONE) 10 mg tablet Take 40 mg x 3 days, 20 mg x 3 days, 10 mg x 3 days. Take with food, once daily No current facility-administered medications for this visit. SOCIAL HISTORY Social History Marital status: Spouse name: Years of education: Number of children: Social History Main Topics Smoking status: Never Smoker Smokeless tobacco: Current User REVIEW OF SYSTEMS All other reviewed and negative other than HPI. OBJECTIVE: BP 108/80 Pulse 100 Temp 36 ?C (96.8 ?F) (Left Tympanic) Resp 16 Wt 74.8 kg (165 lb) APPEARANCE Well appearing, alert, in no acute distress, well- hydrated, well nourished. SKIN Skin: Scabbed vesicles on an erythematous base clustered in a dermatomal distribution located on right UE. No overlying erythema. ASSESSMENT/PLAN: 1. Herpes zoster without complication - ICD9: 053.9, ICD10: B02.9 >72 hours, however, pain worsening and new lesions within the last 3-4 days, will start Valtrex. Advise close f/u with PCP for recheck. Reviewed red flags and when to seek care sooner in ER or for uncontrolled pain. - VALACYCLOVIR 1 GRAM TABLET - GABAPENTIN 300 MG CAPSULE - IBUPROFEN 800 MG TABLET The patient indicates understanding of these issues and agrees with the plan. Tonia Seals PA-C 01/23/2018 01/23/2018 Patient presents with: Rash SUBJECTIVE: This is a 57 year old that is here today for Complaint(s) of Rash. Began 2 1/2 weeks ago. Saw Hannah Wells on 01/16 who thought it was poison faby. Prescribed prednisone which did not relieve the rash. Has also been taking neosporin + pain and has now gone through 3 bottles. Has also tried 600mg of motrin, lidocaine, ice packs with no relief. 2-3 days ago rash started burning. Is experiencing significant 10/10 pain. Says pain feels like someone is skinning with a torch. Had chicken pox as a child and has not had the shingles vaccine. Rash started as painless vesicles and once blisters started healing that's when pain arrived. Rash is diffuse dark red erythematous patches. Said had high fevers and chills when rash first began. Denies N/V/D. Admits to numbness and tingling in thumb on R side. No past medical history on file. ALLERGIES Patient has no known allergies. MEDICATIONS Current Outpatient Prescriptions: ibuprofen (MOTRIN ORAL) Motrin oral predniSONE (DELTASONE) 10 mg tablet Take 40 mg x 3 days, 20 mg x 3 days, 10 mg x 3 days. Take with food, once daily No current facility-administered medications for this visit. SOCIAL HISTORY Social History Marital status: Spouse name: Years of education: Number of children: Social History Main Topics Smoking status: Never Smoker Smokeless tobacco: Current User REVIEW OF SYSTEMS SKIN: Positive for changes in pigmentation: dark red erythematous patches and rash: present on R arm All other reviewed and negative other than HPI. OBJECTIVE: BP 108/80 Pulse 100 Temp 36 ?C (96.8 ?F) (Left Tympanic) Resp 16 Wt 74.8 kg (165 lb) SKIN Skin color, texture, turgor normal, no suspicious rashes or lesions, Positives: Erythema: scattered, neck, arms and wrists, Hyperpigmentation: scattered, Pigmentation Changes, Rash: Dark red erythematous patches diffusely on R arm with vesicles. Assessment and Plan: Referring Provider: SELF [200] Allergies As of Date: 01/23/2018 (No Known Allergies) Date Reviewed: 01/23/2018 Reviewed by: Tonia Ware) Arnel - Fully Assessed Reason for Visit: Rash [1087] Primary Visit Diagnosis:Herpes zoster without complication [B02.9] Order(s):valACYclovir (VALTREX) 1 gram tabTake 1 tablet by mouth three times daily for 7 days.Disp: 21 tabletRfl: 0 gabapentin (NEURONTIN) 300 mg capsuleTake 1 capsule by mouth three times daily as needed for up to 7 days.Disp: 21 capsuleRfl: 0 ibuprofen (MOTRIN) 800 mg tabletTake 1 tablet by mouth every 8 hours as needed for Pain. Take with food.Disp: 30 tabletRfl: 0 Prescriptions as of 01/23/2018 Sig: MOTRIN ORAL Motrin oral VALACYCLOVIR 1 GRAM TABLET Take 1 tablet by mouth three * GABAPENTIN 300 MG CAPSULE Take 1 capsule by mouth three* IBUPROFEN 800 MG TABLET Take 1 tablet by mouth every * PREDNISONE 10 MG TABLET Take 40 mg x 3 days, 20 mg x * Problem List As Of Date: 01/23/2018 (None) Prescriptions ordered this encounter Disp Refills Start End VALACYCLOVIR 1 GRAM TABLET 21 t* 0 01/23/2018 01/30/2018 Route: ORAL Sig: Take 1 tablet by mouth three times daily for 7 days. GABAPENTIN 300 MG CAPSULE 21 c* 0 01/23/2018 01/30/2018 Route: ORAL Sig: Take 1 capsule by mouth three times daily as needed for up to 7 days. IBUPROFEN 800 MG TABLET 30 t* 0 01/23/2018 Route: ORAL Sig: Take 1 tablet by mouth every 8 hours as needed for Pain. Take with food. Encounter Status:Closed by TONIA SEALS PA-C on 01/23/18 PROGRESS Observed: 01/16/2018 Status: COMPLETED Source: [place] 3:39 PM [facility] REPOSITORY HNO ID: [id number] Author: Hannah Wells Service: (none) Author Type: Nurse Practitioner Type: Progress Notes Filed: 01/16/2018 3:42 PM Note Text: This note was created using SAK Projectriter. Subjective Gerber Rico is a 57 year old male. The history is provided by the patient. No bilingual speech language pathologist was used. Rash This is a new problem. The current episode started in the past 7 days. The problem has been gradually worsening since onset. The affected locations include the face and right arm. The rash is characterized by blistering, burning, pain, redness and itchiness. He was exposed to plant contact. Pertinent negatives include no anorexia, cough, facial edema, fatigue, fever, shortness of breath or vomiting. Review of Systems Constitutional: Negative for fatigue and fever. Respiratory: Negative for cough and shortness of breath. Gastrointestinal: Negative for anorexia and vomiting. Skin: Positive for rash. Objective BP 116/82 Pulse 96 Resp 16 Wt 78 kg (172 lb) Physical Exam Constitutional: He appears well-developed and well-nourished. HENT: Head: Normocephalic and atraumatic. Neck: Normal range of motion. Pulmonary/Chest: Effort normal. Skin: Skin is warm. Rash noted. Rash is vesicular. ASSESSMENT/PLAN: 1. Dermatitis due to plants, including poison faby, sumac, and oak - ICD9: 692.6, ICD10: L25.5 - Oral Steriod tx -Prednisone taper - Anti itch therapy of Calomine lotion, Oatmeal baths and Oral Benydryl recommended prn - discussed skin care of rash - follow up if symptoms persist or worsen. - PREDNISONE 10 MG TABLET - see patient instructions Hannah Wells APRN.CNP CNOV Observed: 01/16/2018 Status: COMPLETED Source: [place] 3:00 PM [facility] REPOSITORY Office Visit (FAMPWS) GERBER RICO ([id number]) 1960 M Date Time Provider Department 01/16/18 3:00 PM HANNAH WELLS (DIONE) FAMHernandezWS During your visit today, we recorded the following information about you: Pulse Respiration Blood pressure Weight 96/minute 16/minute 116/82 78 kg Hannah Wells APRN.CNP 01/16/2018 3:09 PM Signed - Take medication as prescribed. - Keep area clean and dry. - Avoid tight fitting clothes. - Use Aveeno/oatmeal bath soaks. - Use benadryl for itching. - Use calamine lotion for itching. CALL OFFICE IF: 1. You have a temperature over 102F (38.8C) 2. Your symptoms don't improve in 2 days. 3. You develop nausea, vomiting or diarrhea 4. You develop new or unexplained symptoms. These may be related to the medication you are taking. 5. Your symptoms return after you finish treatment. Go to the ER if you - experience pressure or pain in your chest - experience difficulty swallowing -experience difficulty breathing Follow up in 7-10 days or before if your symptoms get worse. Hannah Wells APRN.CNP [facility] [address] [facility] [address] Hannah Wells APRN.CNP 01/16/2018 3:42 PM Signed This note was created using SAK Projectriter. Subjective Gerber Rico is a 57 year old male. The history is provided by the patient. No bilingual speech language pathologist was used. Rash This is a new problem. The current episode started in the past 7 days. The problem has been gradually worsening since onset. The affected locations include the face and right arm. The rash is characterized by blistering, burning, pain, redness and itchiness. He was exposed to plant contact. Pertinent negatives include no anorexia, cough, facial edema, fatigue, fever, shortness of breath or vomiting. Review of Systems Constitutional: Negative for fatigue and fever. Respiratory: Negative for cough and shortness of breath. Gastrointestinal: Negative for anorexia and vomiting. Skin: Positive for rash. Objective BP 116/82 Pulse 96 Resp 16 Wt 78 kg (172 lb) Physical Exam Constitutional: He appears well-developed and well-nourished. HENT: Head: Normocephalic and atraumatic. Neck: Normal range of motion. Pulmonary/Chest: Effort normal. Skin: Skin is warm. Rash noted. Rash is vesicular. ASSESSMENT/PLAN: 1. Dermatitis due to plants, including poison faby, sumac, and oak - ICD9: 692.6, ICD10: L25.5 - Oral Steriod tx -Prednisone taper - Anti itch therapy of Calomine lotion, Oatmeal baths and Oral Benydryl recommended prn - discussed skin care of rash - follow up if symptoms persist or worsen. - PREDNISONE 10 MG TABLET - see patient instructions Hannah Wells APRN.WARP DRESSER Referring Provider: SELF [200] Allergies As of Date: 01/16/2018 (Not on File) Date Reviewed: 01/16/2018 Reviewed by: Fernando Weiss LPN - Fully Assessed Reason for Visit: Rash [1087] Cmt: painful rash on R arm, face and mouth x 1 week Primary Visit Diagnosis:Dermatitis due to plants, including poison faby, sumac, and oak [L25.5] Order(s):predniSONE (DELTASONE) 10 mg tabletTake 40 mg x 3 days, 20 mg x 3 days, 10 mg x 3 days. Take with food, once dailyDisp: 21 tabletRfl: 0 Prescriptions as of 01/16/2018 Sig: PREDNISONE 10 MG TABLET Take 40 mg x 3 days, 20 mg x * Problem List As Of Date: 01/16/2018 (None) Other instructions from your clinician: - Take medication as prescribed. - Keep area clean and dry. - Avoid tight fitting clothes. - Use Aveeno/oatmeal bath soaks. - Use benadryl for itching. - Use calamine lotion for itching. CALL OFFICE IF: 1. You have a temperature over 102F (38.8C) 2. Your symptoms don't improve in 2 days. 3. You develop nausea, vomiting or diarrhea 4. You develop new or unexplained symptoms. These may be related to the medication you are taking. 5. Your symptoms return after you finish treatment. Go to the ER if you - experience pressure or pain in your chest - experience difficulty swallowing -experience difficulty breathing Follow up in 7-10 days or before if your symptoms get worse. Hannah Wells APRN.WARP DRESSER [facility] [address] [facility] [address] Prescriptions ordered this encounter Disp Refills Start End PREDNISONE 10 MG TABLET 21 t* 0 01/16/2018 Class: Print RX Sig: Take 40 mg x 3 days, 20 mg x 3 days, 10 mg x 3 days. Take with food, once daily Letter Text [facility] [address] [place] [address] TO WHOM IT MAY CONCERN: This is to confirm that Gerber Rico had an appointment and was seen at the [facility] in the Department of Family Medicine Hannah Wells CNP on 01/16/2018. Please excuse him from work. Sincerely yours, Hannah Wells CNP Encounter Status:Closed by HANNAH WELLS CNP on 01/16/18 ALLERGIES ALLERGIES DATE TYPE / CODE NAME / CODE REACTION SEVERITY SOURCE 06/16/2018 Drug hydrocodone HYPER [place] Allergy/416 bitartrate/[id number] [facility] [id number]([place] [address](RXNO) [facility]) Repository 06/16/2018 Drug lisinopril/[id number] Other Unknown [place] Allergy/416 658(RXNORM) [facility] 899140([facility]) Repository ENCOUNTERS ENCOUNTERS ADMIT/DISCHARGE ACCOUNT ADMITTING ENCOUNTER LOCATION SOURCE NUMBER CLASS 07/04/2018 [id number] [facility] ing:MTRAD Repository 06/21/2018 [id number] [facility] ing:[facility]S Repository 06/21/2018 [id number] Ambulatory BMSBuilding:W [facility] Repository 06/16/2018/06/16/20 [id number] Ambulatory BMSBuilding:B [address] Repository 06/14/2018 [id number] Ambulatory [facility] ing:NM Repository 05/31/2018 [id number] [facility] ing:MFPLAB Repository 04/19/2018 [id number] [facility] ing:MTRAD Repository 03/01/2018/03/01/[id number] ing:SDCRoom: Repository AC07 02/23/2018 [id number] [facility] ing:MFPLAB Repository 02/14/2018 [id number] Ambulatory [facility] ing:LAB Repository 02/06/2018/02/09/20 [id number] [place] [address] [facility] ing:PU3Vioq: Repository VB281Lwj: 1 02/03/2018/02/04/20 [id number] Emergency [address] ing:ED Repository 01/25/2018/01/26/20 [id number] Emergency [address] ing:ED Repository 01/23/2018/01/26/20 [id number] Ambulatory [address] Repository 01/16/2018/01/18/20 [id number] Ambulatory [address] Repository PAYERS PAYERS ENCOUNTER GUARANTOR PAYER SUBSCRIBER SOURCE 07/04/2018 GERBER E Primary GERBER Felipe Mca [id number] Insurance:CARESOURCEP MAXWELLDOB: [facility] SHANNON [facility] Number: [id number] [id number] Repository 200[address]Cwb: ([phone]) Date:2018-07-04 O [phone] () [address]ATTN: [place] [address]CO: 07/04/2018 Secondary NOT GIVENUNK [place] Insurance:SELF PAY [facility] Number: Effective Repository Date:2018-07-04 06/21/2018 GERBER E Primary GERBER E Mac [id number] Insurance:CARESOURCEP MAXWELLDOB: [facility] SHANNON [facility] Number: [id number], [place] [id number] Repository 23926Mvy: 330) Date:2018-06-08P O [phone] () [address]ATTN: [place] [address]QI: 06/21/2018 Secondary NOT GIVENUNK Mac Insurance:SELF PAY [facility] Number: Effective Repository Date:2018-06-08 06/21/2018 GERBER E Primary GERBER Felipe Mac [id number] Insurance:CARESOURCEP MAXWELLDOB: Community SHANNON olicy Number: [id number], [place] [id number] Repository 237[address]Ghm: (330) Date:2018-06-08P O [phone] (HP) [address]ATTN: [place] [address]DB: 06/21/2018 Secondary NOT GIVENUNK [place] Insurance:SELF PAY [facility]: Effective Repository Date:2018-06-21 06/16/2018 GERBER E Primary GERBER E [place] [id number] Insurance:CARESOURCEP MAXWELLDOB: [facility] SHANNON olicy Number: [id number], [place] [id number] Repository [address]Gwi: ([phone]) Date:2018-06-02P O [phone] (HP) [address]ATTN: [place] [address]HL: 06/16/2018 Secondary NOT GIVENUNK Mac Insurance:SELF PAY [facility] Number: Effective Repository Date:2018-06-02 06/14/2018 GERBER E Primary GERBER E [place] [id number] Insurance:CARESOURCEP MAXWELLDOB: [facility]ON [place] Number: [id number], [place] [id number] Repository [address]Vhv: ([phone]) Date:2018-05-03P O [phone] (HP) [address]ATTN: [place] [address]JH: 06/14/2018 Secondary NOT GIVENUNK Mac Insurance:SELF PAY [facility] Number: Effective Repository Date:2018-05-03 05/31/2018 GERBER E Primary GERBER E [place] [id number] Insurance:CARESOURCEP MAXWELLDOB: [facility]ON olicy Number: [id number], [place] [id number] Repository [address]Mjb: (330) Date:2018-05-31P O [phone] (HP) [address]ATTN: [place] [address]NA: 05/31/2018 Secondary NOT GIVENUNK Mac Insurance:SELF PAY [facility] Number: Effective Repository Date:2018-05-31 04/19/2018 GERBER E Primary GERBER E [place] [id number] Insurance:CARESOURCEP MAXWELLDOB: [facility]ON [place] Number: [id number], [place] [id number] Repository [address]Wpd: (330) Date:2018-04-19 O [phone] () [address]ATTN: [place] [address]JC: 04/19/2018 Secondary NOT GIVENUNK [place] Insurance:SELF PAY [facility] Number: Effective Repository Date:2018-04-19 03/01/2018 GERBER E Primary GERBER E Mac [id number] Insurance:CARESOURCEP MAXWELLDOB: [facility] [place] Number: [id number], [place] [id number] Repository [address]Nae: ([phone]) Date:2018-02-24P O [phone] () [address]ATTN: [place] [address]DS: 03/01/2018 Secondary NOT GIVENUNK Mac Insurance:SELF PAY [facility] Number: Effective Repository Date:2018-02-24 02/23/2018 GERBER E Primary GERBER E Mac [id number] Insurance:CARESOURCEP MAXWELLDOB: Community [facility] [place] Number: [id number], [place] [id number] Repository [address]Dhz: (330) Date:2018-02-23P O [phone] () [address]ATTN: [place] [address]FT: 02/23/2018 Secondary NOT GIVENUNK [place] Insurance:SELF PAY [facility] Number: Effective Repository Date:2018-02-23 02/14/2018 GERBER E Primary GERBER E Mac [id number] Insurance:CARESOURCEP MAXWELLDOB: Community SHANNON olic Number: [id number], [place] [id number] Repository [address]Kfp: (330) Date:2018-02-14P O [phone] (HP) [address]ATTN: [place] [address]DR: 02/14/2018 Secondary NOT GIVENUNK [place] Insurance:SELF PAY [facility] Number: Effective Repository Date:2018-02-14 02/06/2018 GERBER E Primary GERBER E [place] [id number] Insurance:CARESOURCEP MAXWELLDOB: Community [facility] [place] Number: [id number], [place] [id number] Repository 35[address]Bdq: (330) Date:2018-02-06P O [phone] (HP) [address]ATTN: [place] [address]WJ: 02/06/2018 Secondary NOT GIVENUNK [place] Insurance:SELF PAY [facility] Number: Effective Repository Date:2018-02-06 02/03/2018 GERBER E Primary GERBER E Mac [id number] Insurance:CARESOURCEP MAXWELLDOB: Community [facility]ON o[place]y Number: [id number], [place] [id number] Repository [address]Poz: (330) Date:2018-02-03P O [phone] (HP) [address]ATTN: [place] [address]LM: 02/03/2018 Secondary NOT GIVENUNK [place] Insurance:SELF PAY [facility] Number: Effective Repository Date:2018-02-03 01/25/2018 GERBER E Primary GERBER E Mac [id number] Insurance:CARESOURCEP MAXWELLDOB: Community [facility]ON o[place]y Number: [id number], [place] [id number] Repository [address]Fcu: (330) Date:2018-01-25P O [phone] (HP) [address]ATTN: [place] [address]DE: 01/25/2018 Secondary NOT GIVENUNK Mac [facility]LF [facility]Y [facility] Number: Effective Repository Date:2018-01-25
== END ==
PROVIDERS: Family Provider Family Medicine; PCP Family Medicine; Referring Provider Family Medicine; Visit Provider Family Medicine
DX: S92.515A Nondisplaced fracture of proximal phalanx of left lesser toe(s), initial encounter for closed fracture (principal); X58.XXXA Exposure to other specified factors, initial encounter
CPT/HCPCS: 73630

== ENCOUNTER → 2018-08-22 08:48 | Outpatient (CLI) | payer MEDICAID, SELFPAY ==
--- NOTE | 2018-08-22 08:53 | RAD_ITS ---
STUDY: X-RAY CHEST REASON FOR EXAM: Male, 58 years old. Cough TECHNIQUE: 2 views COMPARISON: None. FINDINGS: The lungs are clear and expanded. There is no demonstrated pleural abnormality. Normal size heart. Normal mediastinum and kayla. Normal visualized pulmonary arteries. Normal visualized aortic arch and descending thoracic aorta. Normal visualized thoracic spine. Normal visualized ribs, clavicles, and shoulders. There is no demonstrated abnormality of the visualized soft tissue structures of the upper abdomen. RAD/Chest PA and Lateral IMPRESSION: Normal x-ray examination of the chest. No acute findings in the lungs Electronically Signed: Andre Vera MD at 2:49 EST Tel , Service support ,
[2018-08-22 10:19] LABS: Hemoglobin A1c 10.5 % (4.2-6.3)
[2018-08-22 10:22] LABS: Microalbumin,Random Urine 70.2 mg/L (NO RANGE EST.); Microalbumin:Creatinine Ratio 43.6 mg/g CRE (<30 mg/g CRE)
[2018-08-22 10:27] LABS: ALB/GLOB Ratio 1.1 RATIO (0.9-2.4); AST(SGOT) 11 U/L (15-37); Alanine Aminotransfer ALT/SGPT 23 U/L (16-61); Albumin, Serum 4.1 g/dL (3.2-5.0); Alkaline Phosphatase 78 U/L (45-117); Anion Gap 9 (5-15); BUN 18 mg/dL (7-18); BUN/Creat Ratio 16.1 RATIO (10-20); Calcium,Total 9.1 mg/dL (8.5-10.1); Chloride 101 mmol/L (98-107); Cholesterol 265 mg/dL (200); Creatinine, Serum 1.12 mg/dL (0.70-1.30); EST Glomerular Filtration Rate 72 mL/min (>60); Est Glom Filt Rate - Afr Amer 87 mL/min (>60); Globulin 3.8 g/dL (2.2-4.2); Glucose 303 mg/dL (74-106); High Density Lipoprotein 47 mg/dL; Potassium 3.9 mmol/L (3.5-5.1); Protein, Total 7.9 g/dL (6.4-8.2); Sodium Level 138 mmol/L (136-145); Triglycerides 233 mg/dL; Very Low Density Lipoprotein 47 mg/dL (5-40)
== END ==
PROVIDERS: Family Provider Family Medicine; PCP Family Medicine; Referring Provider Family Medicine; Visit Provider Family Medicine
DX: E78.5 Hyperlipidemia, unspecified (principal); E11.9 Type 2 diabetes mellitus without complications; R05 Cough
CPT/HCPCS: 36415; 71046; 80053; 80061; 82043; 82570; 83036

== ENCOUNTER → 2018-09-14 17:11 | Outpatient (CLI) | payer OTHER, SELFPAY ==
--- NOTE | 2018-09-14 17:38 | MRI_ITS ---
STUDY: MRI RIGHT SHOULDER REASON FOR EXAM: Right shoulder pain and arm weakness after lifting injury. Prior surgery. TECHNIQUE: Standardized fat and water weighted pulse sequences were obtained in all 3 orthogonal planes. COMPARISON: Radiographs 04/19/2018 and MRI report 06/29/2013. FINDINGS: There is a full-thickness tear of the supraspinatus and infraspinatus tendons retracted approximately 3.6 cm to the level of the glenohumeral joint (T2 coronal images 7-15). There is subscapularis tendinosis (proton density axial images 11, 12) without discrete tendon tear. Normal teres minor tendon. There is atrophy with partial fat replacement of the supraspinatus muscle (proton-density coronal image 12). There is atrophy with partial fat replacement of the infraspinatus muscle (proton-density coronal image 18). Normal subscapularis muscle. Normal teres minor muscle. There is superior migration of the humeral head secondary to the retracted rotator cuff tear. There are anchors in the humeral head. Normal biceps labral complex. Normal intracapsular long biceps tendon. There is fluid in the bicipital tendon sheath (proton-density axial images 14-17) suggestive of mild bicipital tenosynovitis. Normal labrum. Normal capsulo- ligamentous complex. There is mild acromioclavicular arthrosis without substantial undersurface osteophytes (T2 coronal image 7). There is a Type II morphology (curved), with a neutral orientation. There is a trace of fluid in the subacromial-subdeltoid bursal fluid. Normal deltoid muscle. Normal trapezius muscle. MRI/Upper Ext Joint Only(Routine) IMPRESSION: Full-thickness tear of the supraspinatus and infraspinatus tendons. Subscapularis tendinosis. Atrophy of the supraspinatus and infraspinatus muscles. Mild bicipital tenosynovitis. Mild acromioclavicular arthrosis. Electronically Signed: Terry Lira MD at 14:01 EST Tel , Service support ,
== END ==
PROVIDERS: Family Provider Family Medicine; PCP Family Medicine; Referring Provider Orthopaedic Surgery; Visit Provider Orthopaedic Surgery
DX: S43.491A Other sprain of right shoulder joint, initial encounter (principal); S46.011A Strain of muscle(s) and tendon(s) of the rotator cuff of right shoulder, initial encounter; X50.9XXA Other and unspecified overexertion or strenuous movements or postures, initial encounter; Y99.0 Civilian activity done for income or pay
CPT/HCPCS: 73221

== ENCOUNTER → 2019-03-22 12:19 | Outpatient (CLI) | payer MEDICAID, SELFPAY ==
--- NOTE | 2019-03-22 12:21 | VDLE_ITS ---
Reason For Study: edema RIGHT LEFT CFV is compressible, spontaneous, phasic, CFV is compressible, spontaneous, phasic, competent and demonstrates normal competent, and demonstrates normal augmentation. augmentation. FV is compressible, spontaneous, phasic, FV is compressible, spontaneous, phasic, competent and demonstrates normal competent and demonstrates normal augmentation. augmentation. POP V is compressible, spontaneous, phasic, POP V is compressible, spontaneous, phasic, competent and demonstrates normal competent and demonstrates normal augmentation. augmentation. T/P Trunk is compressible. T/P Trunk is compressible. PTV is compressible. PTV is compressible. RT PerV is compressible. LT PerV is compressible. SFJ is competent and measures .67 cm. SFJ is competent and measures .49 cm. GSV above knee is competent. GSV INCOMPETENT throughout. GSV below knee is INCOMPETENT. GSV proximal thigh is INCOMPETENT for greater GSV proximal thigh is competent and than 0.5 seconds and measures .24 x .21 cm. measures .3 x .35 cm. GSV at knee is INCOMPETENT for greater than GSV at knee is competent and measures .13 0.5 seconds and measures .29 x .31 cm. x .14 cm. SSV proximal calf is competent and SSV proximal calf is competent and measures .31 x .33 cm. measures .44 x .47 cm. ASV at the groin in incompetent for greater than .5 seconds. ASV measures .43 x .42 cm. Procedure Exam performed in department. The exam was diagnostic. A preliminary report was called and/or faxed to Dr. Andujar. Interpretation Summary Deep veins of the lower extremities are bilaterally patent and compressible segmentally. There is no evidence of deep vein thrombosis on either side. Valvular competence appears intact within the proximal deep venous systems bilaterally. The great saphenous veins appear bilaterally patent and compressible segmentally. Sapheno-femoral junctions are bilaterally competent . The right great saphenous vein appears competent above the knee. The right great saphenous vein appears incompetent below the knee. The left great saphenous vein appears segmentally incompetent. Small saphenous veins are patent and competent bilaterally. The right accessory saphenous vein at the groin is incompetent. Ordering Physician: Shahbaz Andujar Performed By: Raymond Quach RVT
== END ==
PROVIDERS: Family Provider Family Medicine; PCP Family Medicine; Referring Provider Podiatrist; Visit Provider Podiatrist
DX: R60.0 Localized edema (principal)
CPT/HCPCS: 93970

== ENCOUNTER → 2019-04-05 08:56 | Outpatient (CLI) | payer MEDICAID, SELFPAY ==
[2019-04-05 10:25] LABS: AST(SGOT) 11 U/L (15-37); Alanine Aminotransfer ALT/SGPT 23 U/L (16-61); Albumin, Serum 3.8 g/dL (3.2-5.0); Alkaline Phosphatase 82 U/L (45-117); Anion Gap 8 (5-15); BUN 33 mg/dL (7-18); BUN/Creat Ratio 25.6 RATIO (10-20); Calcium,Total 9.2 mg/dL (8.5-10.1); Chloride 104 mmol/L (98-107); Cholesterol 249 mg/dL (200); Creatinine, Serum 1.29 mg/dL (0.70-1.30); EST Glomerular Filtration Rate 61 mL/min (>60); Est Glom Filt Rate - Afr Amer 73 mL/min (>60); Globulin 3.7 g/dL (2.2-4.2); Glucose 304 mg/dL (74-106); High Density Lipoprotein 45 mg/dL; Potassium 4.2 mmol/L (3.5-5.1); Protein, Total 7.5 g/dL (6.4-8.2); Sodium Level 140 mmol/L (136-145); Triglycerides 236 mg/dL; Very Low Density Lipoprotein 47 mg/dL (5-40)
[2019-04-05 10:33] LABS: Microalbumin,Random Urine 75.1 mg/L (NO RANGE EST.); Microalbumin:Creatinine Ratio 61.6 mg/g CRE (<30 mg/g CRE)
== END ==
PROVIDERS: Family Provider Family Medicine; PCP Family Medicine; Referring Provider Family Medicine; Visit Provider Family Medicine
DX: E11.65 Type 2 diabetes mellitus with hyperglycemia (principal); E78.5 Hyperlipidemia, unspecified; R80.9 Proteinuria, unspecified
CPT/HCPCS: 36415; 80053; 80061; 82043; 82570; 83036

== ENCOUNTER → 2019-05-16 06:04 | Outpatient (CLI) | payer MEDICAID, SELFPAY ==
--- NOTE | 2019-05-16 09:53 | NEURO ---
NCS and/or EMG Patient Report Ordering Doctor: Shahbaz Andujar DATE OF SERVICE: 05/16/19 Gerber Woodward is a 59-year-old male presents for electrodiagnostic testing of the lower limbs. He reports numbness and tingling in the feet for approximately the past 2 years. He reports a history of diabetes. Electrodiagnostic findings: Peroneal motor nerve demonstrates prolonged distal latency with reduced amplitude and conduction velocity bilaterally. Normal tibial motor latency bilaterally with normal amplitude and reduced conduction velocity. Sensory responses are absent. Prolonged F-wave noted bilaterally. Prolonged H reflex bilaterally. Needle EMG testing was not performed. Electrodiagnostic impression: This is an abnormal study in the lower limbs. 1. 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 Would recommend correlation with nerve biopsy for more definitive diagnosis. If there are any further questions, please do not hesitate to contact me
--- NOTE | 2019-05-16 10:57 | CPS ---
patient left prior to having EMG done. said he could not wait on
== END ==
PROVIDERS: Family Provider Family Medicine; PCP Family Medicine; Referring Provider Podiatrist; Visit Provider Podiatrist
DX: G62.9 Polyneuropathy, unspecified (principal)
CPT/HCPCS: 95886; 95911

== ENCOUNTER → 2019-08-10 11:10 | Outpatient (CLI) | payer MEDICARE, SELFPAY ==
--- NOTE | 2019-08-10 11:16 | RAD_ITS ---
STUDY: X-RAY - RIGHT HAND REASON FOR EXAM: Male, 59 years old. fell on ice 2 days ago, small abrasion and pain 5th mcp joint area TECHNIQUE: 3 view(s) of the hand. COMPARISON: None. FINDINGS: Normal radiocarpal articulation. Normal distal radioulnar joint. Normal visualized carpal bones. Normal carpal articulations Normal carpometacarpal articulation of the thumb. Normal second through fifth carpometacarpal joints. Normal metacarpi. Normal metacarpophalangeal joint of the thumb. Normal interphalangeal joint of the thumb. Normal proximal and distal phalanges of the thumb. Normal metacarpophalangeal joints of the second through fifth fingers. Normal proximal and distal interphalangeal joints of the second through fifth fingers. Normal phalanges of the second through fifth fingers. The soft tissue structures are unremarkable. RAD/Hand Min 3 Views IMPRESSION: No demonstrated fracture or malalignment. Electronically Signed: Ben Mckee MD (Brooks) at 13:33 EST , Service support ,
== END ==
LOC: MTRAD 11:14
PROVIDERS: Family Provider Family Medicine; PCP Family Medicine; Referring Provider Family Medicine; Visit Provider Family Medicine
DX: M79.641 Pain in right hand (principal)
CPT/HCPCS: 73130

== ENCOUNTER 2020-06-13 10:29 | Inpatient (IN) | payer MEDICARE, SELFPAY ==
[2020-06-13] VITALS (16 sets, daily range): BP systolic 80–195; BP diastolic 46–115; PULSE 78–104; RESP 12–22; TEMP 36.2–36.6; O2SAT 95–100; BMI 29.2; BMI 24.1; BMI 24.2
[2020-06-13] MEDS: LORazepam 2 MG/ML Syringe IM (10:32)
--- NOTE | 2020-06-13 10:35 | CT_ITS ---
STUDY: CT BRAIN WITHOUT CONTRAST REASON FOR EXAM: Male, 60 years old. Multiple seizures today, drowsy and confused, no prior hx of epilepsy. RADIATION DOSAGE (If Supplied By Facility): CTDIvol = ( 60.81 ) mGy, DLP = ( 998.67 ) mGycm TECHNIQUE: Transaxial CT imaging of the brain was performed without administration of intravenous contrast material. Individualized dose optimization techniques were used for this CT. COMPARISON: No relevant priors. FINDINGS: Normal soft tissue structures. Normal calvarium. Normal size ventricles and extra-axial spaces for the patient''s age. Normal white matter tracts of the cerebral hemispheres. There are small punctate calcifications of the basal ganglia which are seen in the aging brain as a normal variant. Normal brainstem. Normal cerebellum. There is no intracranial hemorrhage. There are no findings of an acute ischemic infarction. Minimal mucosal thickening of the maxillary sinuses bilaterally. CT/Brain/Head without Contrast IMPRESSION: No acute abnormality is seen. Electronically Signed: Michael Allen, at 10:59 EST , Service support ,
[2020-06-13 10:57] LABS: Absolute Lymphocyte Count 2.86 X10^3/uL (0.83-4.51); Absolute Neutrophil Count 5.4 X10^3/uL (2.0-7.7); Basophil# 0.02 X10^3/uL; Basophil% 0.2 % (0-1); Eosinophil# 0.18 X10^3/uL; Hematocrit 47.9 % (40-54); Hemoglobin 15.5 g/dL (13.0-16.5); Lymphocyte # 2.86 X10^3/ul (4.0); Lymphocyte % 31.8 % (19-41); Mean Corp Hgb Conc 32.4 g/dL (32-36); Mean Corpuscular Hgb 28.3 pg (27.0-32.0); Mean Corpuscular Volume 87.6 fL (80-94); Mean Platelet Vol. 10.7 fl (6.2-12.0); Monocyte# 0.47 X10^3/uL; Monocyte% 5.2 % (0-10); NRBC Flagged by Analyzer 0 % (0-5); Neutrophil # 5.44 X10^3/uL (2.7-7.7); Neutrophil % 60.5 % (47-70); Platelet Count 287 K/mm3 (150-450); RBC Distribution Width CV 11.7 % (11.6-14.6); RBC Distribution Width SD 37.7 fl (35.1-43.9); Red Blood Count 5.47 M/mm3 (4.6-6.2)
[2020-06-13 11:20] LABS: AST(SGOT) 12 U/L (15-37); Alanine Aminotransfer ALT/SGPT 28 U/L (16-61); Albumin, Serum 4.2 g/dL (3.2-5.0); Alkaline Phosphatase 98 U/L (45-117); Anion Gap 15 (5-15); BUN 32 mg/dL (7-18); BUN/Creat Ratio 18.6 RATIO (10-20); Calcium,Total 9.3 mg/dL (8.5-10.1); Chloride 94 mmol/L (98-107); Creatinine, Serum 1.72 mg/dL (0.70-1.30); EST Glomerular Filtration Rate 43 mL/min (>60); Est Glom Filt Rate - Afr Amer 52 mL/min (>60); Estimated Creatinine Clearance 41.21 ml/min; Globulin 4.3 g/dL (2.2-4.2); Glucose 604 mg/dL (74-106); Potassium 3.5 mmol/L (3.5-5.1); Protein, Total 8.5 g/dL (6.4-8.2); Sodium Level 132 mmol/L (136-145)
[2020-06-13 11:22] LABS: Lactic Acid 8.1 mmol/L (0.4-1.9)
[2020-06-13] MEDS: levETIRAcetam IV 1,000 MG/100 ML BAG 400 MG IV (11:24)
[2020-06-13] MEDS: 0.9% Normal Saline 1,000 ML 999 ML IV ×3 (11:37→20:50)
--- NOTE | 2020-06-13 11:41 | ED.DCSUM_ITS ---
History of Present Illness Chief Complaint: Seizure Narrative: Patient presenting for evaluation secondary to new onset seizures. Patient has an underlying history of hypertension and diabetes. Patient reported that he had some abnormal feeling of his left arm over the course of the last couple of days to a week. At 9 AM he had a tonic-clonic seizure and EMS was contacted. Patient was back to his baseline by the time EMS had arrived, but when the EMS brought the patient to the hospital he had a subsequent seizure. Questioning the patient after he regained consciousness states that he does not use drugs, no recent head injuries, no prior history of seizures, denies any infectious signs or symptoms, and again denies that he has any prior history of seizures in the past. Past Medical History - Allergies and Home Meds Allergies/Adverse Reactions: Allergies hydrocodone bitartrate [From Vicodin] Adverse Reaction (Mild, Verified 09/21/18 08:05) HYPER lisinopril Adverse Reaction (Verified 09/21/18 08:05) Other CHEST PAIN Primary Care Physician: Amish Han MD [Primary Care Provider] - Prior records reviewed: Yes Past Medical History: - - Hypertension, diabetes Surgical History: - - S/p R shoulder surgery Lives: With Family Smoking Status: Never smoker Alcohol: None Drugs: None - Family History Maternal Family History: Reports: No pertinent history Paternal Family History: Reports: No pertinent history Review of Systems All systems negative except as indicated General: Denies: Chills, Fever, Sweats Eyes: Denies: Visual changes - bilaterally, Diplopia ENT: Denies: Rhinorrhea, Sore throat Cardiovascular: Denies: Chest pain, Palpitations Respiratory: Denies: Dyspnea, Cough, Dyspnea on exertion Gastrointestinal: Denies: Abdominal pain, Nausea, Vomiting, Diarrhea, Melena, Hematochezia Genitourinary: Denies: Dysuria, Hematuria, Frequency Musculoskeletal: Denies: Back pain, Extremity Pain Skin: Reports: - - Abnormal feeling of the left arm and seizures Neurological: Denies: Headache, Weakness, Numbness Physical Exam Vital Signs/Narrative: Vital Signs Temp Pulse Resp BP Pulse Ox 06/13/20 11:18 94/80 06/13/20 11:10 95 17 93/75 98 06/13/20 10:32 97.3 F L 104 H 22 H 195/115 H 97 Inital Vital Signs reviewed: Yes General: Well nourished, Well developed, No Acute Distress, - - On presentation the patient was actively seizing with tonic-clonic movements, no laterality to the patient's convulsions. After seizing had stopped there was no evidence of lateralizing neurologic signs or abnormal exam as noted below Head: Normocephalic, Atraumatic Eyes: Perrl, EOMI ENT: Moist mucous membranes, No rhinorrhea Neck: Supple, Nontender Cardiovascular: Regular rate, Regular rhythm, No murmurs Respiratory: No distress, CTA bilaterally, Chest nontender Abdomen: Soft, Nontender, Nondistended, Normal bowel sounds Back: Nontender, Normal Inspection Extremities: Nontender, No edema Skin: Normal color, No rash Neurological: Alert, Oriented x3, Cranial nerves II-XII grossly intact, Normal Strength, Normal Sensation Psychological: Normal affect, Normal Mood Diagnostic/Tx/Re-eval Clinical Impression(s) from Imaging Studies Brain CT 06/13/20 10:35 IMPRESSION: No acute abnormality is seen. Electronically Signed: Michael Allen, at 10:59 EST , Service support , Laboratory Data 06/13/20 06/13/20 06/13/20 10:48 10:48 10:48 WBC 9.0 RBC 5.47 Hgb 15.5 Hct 47.9 MCV 87.6 MCH 28.3 MCHC 32.4 RDW Std Deviation 37.7 RDW Coeff of Silvia 11.7 Plt Count 287 MPV 10.7 Immature Gran % (Auto) 0.300 Neut % (Auto) 60.5 Lymph % (Auto) 31.8 Russell % (Auto) 5.2 Eos % (Auto) 2.0 Baso % (Auto) 0.2 Absolute Neuts (auto) 5.4 Absolute Lymphs (auto) 2.86 Nucleated RBC % 0 PT 11.9 INR 0.9 Sodium 132 L Potassium 3.5 Chloride 94 L Carbon Dioxide 23.0 Anion Gap 15 BUN 32 H Creatinine 1.72 H Estim Creat Clear Calc 41.21 Est GFR (MDRD) Af Amer 52 L Est GFR (MDRD) Non-Af 43 L BUN/Creatinine Ratio 18.6 Glucose 604 H* Lactic Acid Calcium 9.3 Total Bilirubin 0.50 AST 12 L ALT 28 Alkaline Phosphatase 98 Troponin I < 0.015 Total Protein 8.5 H Albumin 4.2 Globulin 4.3 H Albumin/Globulin Ratio 1.0 06/13/20 10:48 WBC RBC Hgb Hct MCV MCH MCHC RDW Std Deviation RDW Coeff of Silvia Plt Count MPV Immature Gran % (Auto) Neut % (Auto) Lymph % (Auto) Russell % (Auto) Eos % (Auto) Baso % (Auto) Absolute Neuts (auto) Absolute Lymphs (auto) Nucleated RBC % PT INR Sodium Potassium Chloride Carbon Dioxide Anion Gap BUN Creatinine Estim Creat Clear Calc Est GFR (MDRD) Af Amer Est GFR (MDRD) Non-Af BUN/Creatinine Ratio Glucose Lactic Acid 8.1 H* Calcium Total Bilirubin AST ALT Alkaline Phosphatase Troponin I Total Protein Albumin Globulin Albumin/Globulin Ratio - EKG Initial EKG Interpretation: - - Sinus rhythm [address] segments normal T waves normal OR and QTc intervals no evidence of acute ischemia or arrhythmia - Medical Decision Making Patient presented secondary to new onset seizure. Seizure precautions were immediately taken as the patient was seizing upon his arrival. He was given 2 mg of intramuscular Ativan. I had suspicion for the possibility of acute intracranial hemorrhage, he was taken directly down to CT which was found to be negative. Patient's blood pressure improved from his initial blood pressure, he did not require active IV blood pressure management. He was given IV Keppra at a dose of 1 g. Patient's laboratory work-up was consistent with tonic-clonic seizure with the patient having a lactic acid of 8. He was noted to be hyperglycemic with normal sodium and no significant acidosis or other electrolyte derangements. His cardiac work-up was negative. He maintained stability in the emergency department. I believe he requires admission. I discussed this with the hospitalist. - Critical Care Time Critical care time (excluding procedures): 30-74 minutes ED Disposition - Plan for ED Patient: Disposition: Acute Care Hospital [facility] Diagnosis: Seizure, Hyperglycemia
--- NOTE | 2020-06-13 11:59 | PCM.HP.STD ---
Problem List (1) Hyperglycemia Status: Acute (2) Seizure Status: Acute (3) Post herpetic neuralgia Status: Chronic (4) Benign essential hypertension Status: Chronic (5) Hyperlipidemia Status: Chronic Qualifiers: Hyperlipidemia type: unspecified Qualified Code(s): E78.5 - Hyperlipidemia, unspecified (6) Peripheral neuropathy Status: Chronic Qualifiers: Peripheral neuropathy type: polyneuropathy, unspecified Qualified Code(s): G62.9 - Polyneuropathy, unspecified (7) Type 2 diabetes mellitus Status: Chronic Qualifiers: Diabetes mellitus detention insulin use: without rodent exterminator use Diabetes mellitus complication status: with hyperglycemia Qualified Code(s): E11.65 - Type 2 diabetes mellitus with hyperglycemia History of Present Illness Date of Admission: 06/13/20 Chief Complaint: New onset seizure The patient is a 60 year old M with past medical history significant for diabetes mellitus type 2 who was apparently not been compliant with his therapy presented to the emergency department after an apparent clonic tonic seizure. Patient did experience another seizure once he arrived in the emergency department. On further questioning patient denied any prior symptoms including fever chills no headache. Denied any recent trauma. In the emergency department initial head CT obtained was unremarkable. Patient was however found to have markedly elevated blood glucose level of greater than 600. His systolic blood pressure was also greater than 190. Patient did receive Ativan and Keppra and started on Cardene drip and subsequently admitted to a monitored bed for subsequent evaluation. Past Medical History Past Medical History (Chronic Problems): Chronic Problems Post herpetic neuralgia (Chronic) Peripheral neuropathy (Chronic) Hyperlipidemia (Chronic) Type 2 diabetes mellitus (Chronic) Benign essential hypertension (Chronic) Allergies hydrocodone bitartrate [From Vicodin] Adverse Reaction (Mild, Verified 09/21/18 08:05) HYPER lisinopril Adverse Reaction (Verified 09/21/18 08:05) Other CHEST PAIN Home Medications: Ambulatory Orders Medication Instructions Recorded Albuterol Inhaler [Ventolin Hfa] 2 puff INHALATION DAILY PRN 06/11/13 Ascorbate Calcium [Vitamin C] 500 mg PO DAILY 08/15/13 Cholecalciferol (Vitamin D3) 500 unit PO DAILY 08/15/13 [Vitamin D3] [place]-3S/Dha/Epa/Fish Oil/D3 [Fish 1 each PO DAILY 08/15/13 Oil-Vit D3 Softgel] Acetaminophen [Tylenol Tablet] 650 mg PO Q6H PRN PRN #60 tab 02/08/18 [place] 500 mg PO DAILY 02/28/18 Glucosamine HCl 2,000 mg PO DAILY 02/28/18 Insulin Lispro [Humalog KwikPen] 8 unit SC TIDAC 02/28/18 Krill/[place]-3/Dha/Epa/Lipids 1 each PO DAILY 02/28/18 [Krill Oil 350 mg Softgel] Potassium 99 mg PO BID 02/28/18 Amitriptyline HCl [Elavil] 100 mg PO DAILY 06/13/20 Insulin Glargine [Lantus SoloStar 25 units SC QHS 06/13/20 Pen] Lancets/Blood Glucose Strips [Fora 1 ea MC TID 06/13/20 [id number] Strp-Lnct] [place], Insulin Disposable 1 ea MISCELL. UD 06/13/20 [Novofine Autocover 30G Needle] Surgical History: - - S/p R shoulder surgery Lives: With Family Smoking Status: Never smoker Tobacco Use: Chew Alcohol: None Drugs: None - *Family History Maternal History Items: No pertinent history - Denies any family history of seizures Paternal History Items: Hypertension Review of Systems Unable to obtain accurate/complete ROS d/t: Patient is post ictal VTE Information - Inpt Only VTE Present on Admission: No VTE Mechan Device Prophylaxis: None VTE Pharm Prophylaxis ordered?: Yes Patient Problems: Active and Suspected Problems Seizure (Acute) Hyperglycemia (Acute) Objective: GENERAL: Lethargic but arousable HEENT: Atraumatic; EYES; Anicteric, Normal Conjunctiva NECK; supple, normal thyroid, RESPIRATORY: Diminished to auscultation CARDIOVASCULAR: Regular S1 S2, GI: soft, normoactive bowel sounds, : No Renal angle tenderness; EXTREMITIES: No edema, no clubbing, MUSCULOSKELETAL: no muscle waisting NEURO: Awake; no lateralizing signs. SKIN: No Rash PSYCH; Flat affect - Physical Exam Vitals/I&O's: Vital Signs Temp Pulse Resp BP Pulse Ox 97.3 F L 95 17 94/80 98 06/13/20 10:32 06/13/20 11:10 06/13/20 11:10 06/13/20 11:18 06/13/20 11:10 Oxygen Flow Rate (L/min) 4 Oxygen Delivery Method Nasal Cannula Weight: 82.1 kg Body Mass Index (BMI) 29.2 Finger Stick Blood Glucose 340 Laboratory Results 06/13/20 10:48: WBC 9.0, RBC 5.47, Hgb 15.5, Hct 47.9, MCV 87.6, MCH 28.3, MCHC 32.4, RDW Std Deviation 37.7, RDW Coeff of Silvia 11.7, Plt Count 287, MPV 10.7, Immature Gran % (Auto) 0.300, Neut % (Auto) 60.5, Lymph % (Auto) 31.8, [place] % (Auto) 5.2, Eos % (Auto) 2.0, Baso % (Auto) 0.2, Absolute Neuts (auto) 5.4, Absolute Lymphs (auto) 2.86, Nucleated RBC % 0 06/13/20 10:48: PT 11.9, INR 0.9, APTT Pending 06/13/20 10:48: Sodium 132 L, Potassium 3.5, Chloride 94 L, Carbon Dioxide 23.0, Anion Gap 15, BUN 32 H, Creatinine 1.72 H, Estim Creat Clear Calc 41.21, Est GFR (MDRD) Af Amer 52 L, Est GFR (MDRD) Non-Af 43 L, BUN/Creatinine Ratio 18.6, Glucose 604 H*, Calcium 9.3, Total Bilirubin 0.50, AST 12 L, ALT 28, Alkaline Phosphatase 98, Troponin I < 0.015, Total Protein 8.5 H, Albumin 4.2, Globulin 4.3 H, Albumin/Globulin Ratio 1.0 06/13/20 10:48: Lactic Acid 8.1 H* Current Medications Nicardipine HCl 25 mg/ Sodium (Chloride) 250 mls @ 50 mls/hr CONT INF .Q5H [facility]; Protocol Stop: 06/13/20 15:59 Last Admin: 06/13/20 11:37 Dose: Not Given Documented by: Sodium Chloride () 1,000 mls @ 999 mls/hr IV .Q1H1M [facility] Stop: 06/13/20 13:25 Last Admin: 06/13/20 11:37 Dose: 999 mls/hr Documented by: Assessment/Plan All Active Problems Seizure (Acute) Hyperglycemia (Acute) Patient is a 60-year-old gentleman presented with new onset seizures 1. New onset seizure ?Suspected to be secondary to patient hypoglycemia as a result of his uncontrolled diabetes. Patient has been admitted to monitored bed seizure precautions initiated. Initial head CT obtained was unremarkable. Patient did receive Ativan and Keppra Keppra continued on the floor. As part of his subsequent evaluation ordered EEG and MRI with and without contrast and consultation placed to [facility] telemetry neurology 2. Diabetes mellitus type 2 with hyperglycemia -Due to patient being noncompliant with his home insulin regimen. -Placed on long acting insulin, Accu-Cheks every 4 and covered with sliding scale insulin 3. Accelerated hypertension - patient was started on nicardipine drip from the ED plan is to wean off and initiate oral antihypertensives 4. History of postherpetic neuralgia ?Currently asymptomatic 5. Hypokalemia -corrected per protocol 6. Lactic acidosis ?Secondary to patient seizure no evidence of infection 7. Acute kidney injury ?Secondary to dehydration from patient hyperglycemia patient is on aggressive IV fluid resuscitation with subsequent monitoring of electrolyte 8. Hyponatremia ?Secondary to pseudohyponatremia as a result of hyperglycemia do expect rapid correction once patient glucose levels improved 9. Depression ?Patient is on amitriptyline 10. DVT prophylaxis ?Lovenox CODE STATUS full code Inpatient E&M: 51896 Init Hosp L3
[2020-06-13] MEDS: Insulin Lispro 100 UNIT/ML INSULN.PEN 15 UNIT SC ×2 (12:07→15:13)
[2020-06-13 12:20] LABS: Bacteria 0 SEEN /hpf (None Seen); Mucous, Urine 0 SEEN /hpf (<or=2+); Red Blood Cells-Urine 0 SEEN /hpf (0-5); Squamous Epithelial Cells - UA 0 SEEN /hpf (0-5); White Blood Cells 0 SEEN /hpf (0-5)
[2020-06-13 12:26] LABS: Color, Urine Yellow (Yellow); Glucose, Dipstick 1000 mg/dl (Normal); Ketone-Dipstick 15 mg/dl (Negative); Leukocyte Esterase-Dipstick Negative /ul (Negative); Nitrite-Dipstick Negative (Negative); Occult Blood-Urine Negative /ul (Negative); Protein-Dipstick 30 mg/dl (Negative); Urine Bilirubin Dipstick Negative (Negative); Urine Clarity Clear (Clear); Urine Urobilinogen Normal (Normal)
[2020-06-13 12:35] LABS: Amphetamine Urine VISTA NEGATIVE (<1000 ng/mL); Barbiturate Urine VISTA NEGATIVE (< 200 ng/mL); Benzodiazepine Urine VISTA NEGATIVE (< 200 ng/mL); Cocaine Urine VISTA NEGATIVE (< 300 ng/mL); Ecstacy Urine VISTA NEGATIVE (< 500 ng/mL); Methadone Urine VISTA NEGATIVE (< 300 ng/mL); PCP Urine VISTA NEGATIVE (< 25 ng/mL); THC Urine VISTA NEGATIVE (< 50 ng/mL); Vista UDS pH Range 5
[2020-06-13 13:08] LABS: Partial Thromboplast Time 20.5 Seconds (24.1-36.2); Prothrombin Time (Protime)PT. 12.9 SECONDS (11.7-14.9)
--- NOTE | 2020-06-13 14:02 | TELEMED_ITS ---
[facility] Tele[facility] has confirmed receipt of a request for visit. This document confirms receipt of the order initiating the consult. To find the results of the consultation, please view the patient's reports for the scanned Telemed Consult.
--- NOTE | 2020-06-13 14:02 | MRI_ITS ---
ACR Level 3 findings have been noted. An addendum which confirms receipt of the report will follow. STUDY: MRI BRAIN WITH AND WITHOUT CONTRAST REASON FOR EXAM: Male, 60 years old. New onset sz, hyperglycemia, HTN TECHNIQUE: Standardized multiplanar fat and water weighted pulse sequences were obtained. 17ml Dotarem via IV was administered for the contrast portion of the examination. COMPARISON: CT head 06/13/2020, MRI brain 06/21/2018. FINDINGS: There is a 0.9 x 0.5 x 0.3 cm ring-enhancing lesion in the right posterior frontal lobe, suspicious for malignancy versus infectious or inflammatory lesion. No additional enhancing lesions are identified. No hemorrhage, territorial infarct, or acute ischemia. Normal size of the ventricles and extra-axial spaces for the patient''s age. Normal white matter tracts of the supratentorial brain. Normal bilateral basal ganglia. Normal thalami. There is no extra-axial fluid accumulation. Normal flow voids within the major intracranial circulation suggesting patency by spin echo criteria. Normal sella turcica, pituitary gland, infundibular stalk, optic chiasm and hypothalamus. Normal midbrain, savanna and medulla. Normal cerebellum. Normal basal cisterns. Normal bilateral temporal bones. Normal bilateral internal auditory canals. No demonstrated orbital abnormality, within the constraints of a routine brain study. Normal visualized paranasal sinuses. Normal calvarium and skull base. Normal visualized soft tissue structures. MRI/Brain W/WO Contrast IMPRESSION: 1. Small ring-enhancing lesion in the right posterior frontal lobe, suspicious for malignancy or solitary metastasis. Small abscess is an additional consideration. Electronically Signed: Cherelle Ko MD at 20:54 EST Tel , Service support ,
[2020-06-13 14:20] LABS: Magnesium 2.4 mg/dL (1.6-2.6)
[2020-06-13] MEDS: 0.9% Saline Lock 10 ML Syringe IV (14:48)
[2020-06-13 14:53] LABS: Reflex Lactate? Y
[2020-06-13 15:01] LABS: Bedside Glucose 343 mg/dL (70-110)
[2020-06-13] MEDS: Insulin Lispro 100 UNIT/ML INSULN.PEN SC (15:13)
--- NOTE | 2020-06-13 15:39 | NURSING ---
This RN updated the pt's sister via phone.
[2020-06-13 16:23] LABS: Anion Gap 4 (5-15); BUN 30 mg/dL (7-18); BUN/Creat Ratio 22.1 RATIO (10-20); Calcium,Total 9.3 mg/dL (8.5-10.1); Chloride 108 mmol/L (98-107); Creatinine, Serum 1.36 mg/dL (0.70-1.30); EST Glomerular Filtration Rate 57 mL/min (>60); Est Glom Filt Rate - Afr Amer 69 mL/min (>60); Estimated Creatinine Clearance 59.64 ml/min; Glucose 314 mg/dL (74-106); Potassium 4.5 mmol/L (3.5-5.1); Sodium Level 139 mmol/L (136-145)
[2020-06-13 16:31] LABS: Lactic Acid 2.3 mmol/L (0.4-1.9)
[2020-06-13 17:31] LABS: Bedside Glucose 96 mg/dL (70-110)
[2020-06-13] MEDS: Dextrose 50%-Water 25 GM/50 ML DISP.SYRIN IV (20:31)
[2020-06-13 21:21] LABS: Bedside Glucose 58 mg/dL (70-110)
[2020-06-13 21:21] LABS: Bedside Glucose 125 mg/dL (70-110)
[2020-06-13] MEDS: 0.9% Normal Saline 1,000 ML 150 ML IV (21:54)
[2020-06-14] VITALS (35 sets, daily range): BP systolic 71–146; BP diastolic 46–112; PULSE 68–92; RESP 8–18; TEMP 36.2–37; O2SAT 90–100
[2020-06-14] MEDS: Metoprolol Tartrate 25 MG Tablet PO (00:35)
[2020-06-14 00:41] LABS: Bedside Glucose 161 mg/dL (70-110)
--- NOTE | 2020-06-14 01:03 | ECHOCS_ITS ---
Reason For Study: ARRHYTHMIA Procedure This was a 2D Doppler, Color Flow transthoracic echocardiogram. The study was technically difficult. Contrast injection was performed. Exam performed portable in patient room. Left Ventricle Normal LV size. Left ventricular systolic function is normal. The estimated ejection fraction is 55 %. Diastolic function is indeterminate. No regional wall motion abnormalities noted. Right Ventricle Normal RV size. Normal systolic function. Atria Normal left atrium. Normal right atrium. No doppler evidence for ASD. Mitral Valve There is no mitral annular calcification. Normal mitral valve. Mild (1+) mitral valve insufficiency. Tricuspid Valve Normal tricuspid valve. Mild tricuspid valve insufficiency. Right ventricular systolic pressure estimated to be 36 mmHg. Aortic Valve Trisinus/trileaflet aortic valve. Mild focal aortic valve calcification. Pulmonic Valve The pulmonic valve is not well visualized. Great Vessels Normal sized aortic root. Pericardium/Pleural No pericardial effusion. Medication Diluted definity 3.0ml given slow IV push to enhance endocardial definition. MMode/2D Measurements & Calculations LVIDd: 4.4 cm IVSd: 1.0 cm Ao root diam: 3.2 cm LVIDs: 2.5 cm LVPWd: 0.95 cm RVDd: 3.0 cm FS: 42.2 % LAV(MOD-bp): 52.0 ml LVAd ap4: 29.4 cm2 SV(MOD-sp4): 47.0 ml LAV(MOD-bp) Indexed: 26.8 ml/m2 EDV(MOD-sp4): 90.1 ml LAV(MOD-sp2): 47.6 ml EDV(sp4-el): 93.4 ml LAV(MOD-sp4): 46.7 ml LVAs ap4: 18.8 cm2 ESV(MOD-sp4): 43.1 ml ESV(sp4-el): 43.7 ml EF(MOD-sp4): 52.1 % EF(sp4-el): 53.2 % SV(sp4-el): 49.7 ml LA A4 area: 18.5 cm2 LA dimension(2D): 3.8 cm RA A4 area: 12.1 cm2 Time Measurements MV dec time: 0.17 sec Doppler Measurements & Calculations MV E max fermin: 81.2 cm/sec Lat Peak E' Fermin: 7.2 cm/sec Med Peak E' Fermin: 6.2 cm/sec MV A max fermin: 65.0 cm/sec E/E' lat: 11.3 E/E' med: 13.1 MV E/A: 1.2 MV V2 max: 87.5 cm/sec Ao V2 max: 127.4 cm/sec LV V1 max: 75.5 cm/sec MV max P.1 mmHg Ao max P.5 mmHg LV V1 max P.3 mmHg MV V2 mean: 55.4 cm/sec MV mean P.3 mmHg MV V2 VTI: 20.3 cm PA V2 max: 96.1 cm/sec TR max fermin: 286.6 cm/sec TR max P.9 mmHg Interpretation Summary The study was technically difficult. Contrast injection was performed. Left ventricular systolic function is normal. The estimated ejection fraction is 55 %. Mild (1+) mitral valve insufficiency. Mild tricuspid valve insufficiency. Mild focal aortic valve calcification. Right ventricular systolic pressure estimated to be 36 mmHg. Diastolic function is indeterminate. Ordering Physician: Unique Deleon Referring Physician: SARBJIT ZUNIGA Performed By: Kymberly Patel, WILFRIDO, RVT
--- NOTE | 2020-06-14 01:05 | PCM.HOSP.N ---
Hospitalist Note Recurrent episodes of VT, lengthy, asymptomatic, bursts. Given recurrent will request ECHO, TSH/FT4, mag normal, cycle cardiac enzymes, request Cardiology Dr. Strong involvement.
[2020-06-14] MEDS: Amiodarone 360 MG in Dextrose 5% Viaflo Bag 192.8 ML 33.3 MG CONT INF (02:15)
[2020-06-14 02:42] LABS: Thyroid Stim Hormone (TSH) 0.61 uIU/mL (0.358-3.74)
[2020-06-14 04:34] LABS: Absolute Lymphocyte Count 2.16 X10^3/uL (0.83-4.51); Absolute Neutrophil Count 8.1 X10^3/uL (2.0-7.7); Basophil# 0.03 X10^3/uL; Basophil% 0.3 % (0-1); Eosinophil# 0.08 X10^3/uL; Eosinophils% 0.7 % (0-5); Hematocrit 38.6 % (40-54); Hemoglobin 12.6 g/dL (13.0-16.5); Lymphocyte # 2.16 X10^3/ul (4.0); Lymphocyte % 19.5 % (19-41); Mean Corp Hgb Conc 32.6 g/dL (32-36); Mean Corpuscular Hgb 28.8 pg (27.0-32.0); Mean Corpuscular Volume 88.1 fL (80-94); Mean Platelet Vol. 10.7 fl (6.2-12.0); Monocyte# 0.64 X10^3/uL; Monocyte% 5.8 % (0-10); NRBC Flagged by Analyzer 0 % (0-5); Neutrophil # 8.11 X10^3/uL (2.7-7.7); Neutrophil % 73.3 % (47-70); Platelet Count 238 K/mm3 (150-450); RBC Distribution Width CV 11.9 % (11.6-14.6); RBC Distribution Width SD 38.5 fl (35.1-43.9); Red Blood Count 4.38 M/mm3 (4.6-6.2); White Blood Count 11.1 K/mm3 (4.4-11.0)
[2020-06-14 05:03] LABS: Anion Gap 7 (5-15); BUN 31 mg/dL (7-18); BUN/Creat Ratio 25.2 RATIO (10-20); Calcium,Total 7.8 mg/dL (8.5-10.1); Chloride 108 mmol/L (98-107); Creatinine, Serum 1.23 mg/dL (0.70-1.30); EST Glomerular Filtration Rate 64 mL/min (>60); Est Glom Filt Rate - Afr Amer 77 mL/min (>60); Estimated Creatinine Clearance 65.94 ml/min; Glucose 266 mg/dL (74-106); Magnesium 2.1 mg/dL (1.6-2.6); Phosphorus 3.2 mg/dL (2.5-4.9); Potassium 4.2 mmol/L (3.5-5.1); Sodium Level 139 mmol/L (136-145)
[2020-06-14] MEDS: 0.9% Normal Saline 1,000 ML 150 ML IV ×2 (05:15→11:16)
[2020-06-14] MEDS: Insulin Lispro 100 UNIT/ML INSULN.PEN SC ×2 (05:19→16:40)
[2020-06-14 05:26] LABS: Bedside Glucose 385 mg/dL (70-110)
--- NOTE | 2020-06-14 07:55 | PN_ITS ---
Patient Problems: Active and Suspected Problems Seizure (Acute) Hyperglycemia (Acute) Subjective: Patient is a 60-year-old gentleman presented with new onset seizures He was noted to have recurrent episodes of ventricular tachycardia. Patient started on amiodarone 2D echo ordered with consultation placed to cardiology Objective: GENERAL: Lethargic but arousable HEENT: Atraumatic; EYES; Anicteric, Normal Conjunctiva NECK; supple, normal thyroid, RESPIRATORY: Diminished to auscultation CARDIOVASCULAR: Regular S1 S2, GI: soft, normoactive bowel sounds, : No Renal angle tenderness; EXTREMITIES: No edema, no clubbing, MUSCULOSKELETAL: no muscle waisting NEURO: Awake; no lateralizing signs. SKIN: No Rash PSYCH; Flat affect Vitals/I&O's: Vital Signs Temp Pulse Resp BP Pulse Ox 98.3 F 81 18 103/72 95 06/14/20 06:19 06/14/20 07:00 06/14/20 07:00 06/14/20 07:00 06/14/20 07:00 Oxygen Flow Rate (L/min) 2 Oxygen Delivery Method Nasal Cannula Weight: 76.4 kg Body Mass Index (BMI) 24.1 Finger Stick Blood Glucose 340 Intake and Output for Last 24 Hours 06/12/20 06/13/20 06/14/20 23:59 23:59 23:59 Intake Total 4152.5 / 4152.5 1811.18 / 1811.18 Output Total 800 / 800 200 / 200 Balance 3352.5 / 3352.5 1611.18 / 1611.18 Laboratory Results 06/13/20 10:48: WBC 9.0, RBC 5.47, Hgb 15.5, Hct 47.9, MCV 87.6, MCH 28.3, MCHC 32.4, RDW Std Deviation 37.7, RDW Coeff of Silvia 11.7, Plt Count 287, MPV 10.7, Immature Gran % (Auto) 0.300, Neut % (Auto) 60.5, Lymph % (Auto) 31.8, [place] % (Auto) 5.2, Eos % (Auto) 2.0, Baso % (Auto) 0.2, Absolute Neuts (auto) 5.4, Absolute Lymphs (auto) 2.86, Nucleated RBC % 0 06/13/20 10:48: PT Cancelled, INR Cancelled, APTT Cancelled 06/13/20 10:48: Sodium 132 L, Potassium 3.5, Chloride 94 L, Carbon Dioxide 23.0, Anion Gap 15, BUN 32 H, Creatinine 1.72 H, Estim Creat Clear Calc 41.21, Est GFR (MDRD) Af Amer 52 L, Est GFR (MDRD) Non-Af 43 L, BUN/Creatinine Ratio 18.6, Glucose 604 H*, Calcium 9.3, Total Bilirubin 0.50, AST 12 L, ALT 28, Alkaline Phosphatase 98, Troponin I < 0.015, Total Protein 8.5 H, Albumin 4.2, Globulin 4.3 H, Albumin/Globulin Ratio 1.0 06/13/20 10:48: Lactic Acid 8.1 H* 06/13/20 10:48: Magnesium 2.4 06/13/20 12:15: Urine Color Yellow, Urine Clarity Clear, Urine pH 5.0, Ur Specific [place] 1.010, Urine Protein 30 H, Urine Glucose (UA) 1000 H, Urine Ketones 15 H, Urine Occult Blood Negative, Urine Nitrite Negative, Urine Bilirubin Negative, Urine Urobilinogen Normal, Ur Leukocyte Esterase Negative, Urine RBC 0 SEEN, Urine WBC 0 SEEN, Ur Squamous Epith Cells 0 SEEN, Urine Bacteria 0 SEEN, Urine Mucus 0 SEEN 06/13/20 12:15: Urine Opiates Screen NEGATIVE, Urine Methadone Screen NEGATIVE, Ur Barbiturates Screen NEGATIVE, Ur Phencyclidine Scrn NEGATIVE, Ur Amphetamines Screen NEGATIVE, U Methamphetamin-MDMA NEGATIVE, U Benzodiazepines Scrn NEGATIVE, Urine Cocaine Screen NEGATIVE, U Cannabinoids Screen NEGATIVE, Ur Drug Screen Comment 06/13/20 12:45: PT 12.9, INR 1.0, APTT 20.5 L 06/13/20 14:46: POC Glucose 343 H 06/13/20 15:34: Lactic Acid 2.3 H* 06/13/20 15:34: Sodium 139, Potassium 4.5, Chloride 108 H, Carbon Dioxide 27.0, Anion Gap 4 L, BUN 30 H, Creatinine 1.36 H, Estim Creat Clear Calc 59.64, Est GFR (MDRD) Af Amer 69, Est GFR (MDRD) Non-Af 57 L, BUN/Creatinine Ratio 22.1 H, Glucose 314 H, Calcium 9.3 06/13/20 17:15: POC Glucose 96 06/13/20 20:29: POC Glucose 58 L 06/13/20 20:53: POC Glucose 125 H 06/14/20 00:31: POC Glucose 161 H 06/14/20 01:31: Troponin I < 0.015, TSH 0.61, Free T4 0.90 06/14/20 04:13: WBC 11.1 H, RBC 4.38 L, Hgb 12.6 L, Hct 38.6 L, MCV 88.1, MCH 28.8, MCHC 32.6, RDW Std Deviation 38.5, RDW Coeff of [place] 11.9, Plt Count 238, MPV 10.7, Immature Gran % (Auto) 0.400, Neut % (Auto) 73.3 H, Lymph % (Auto) 19.5, [place] % (Auto) 5.8, Eos % (Auto) 0.7, Baso % (Auto) 0.3, Absolute Neuts (auto) 8.1 H, Absolute Lymphs (auto) 2.16, Nucleated RBC % 0 06/14/20 04:13: Sodium 139, Potassium 4.2, Chloride 108 H, Carbon Dioxide 24.0, Anion Gap 7, BUN 31 H, Creatinine 1.23, Estim Creat Clear Calc 65.94, Est GFR (MDRD) Af Amer 77, Est GFR (MDRD) Non-Af 64, BUN/Creatinine Ratio 25.2 H, Glucose 266 H, Calcium 7.8 L, Phosphorus 3.2, Magnesium 2.1 06/14/20 04:13: Troponin I < 0.015 06/14/20 05:18: POC Glucose 385 H Current Medications Acetaminophen (Acetaminophen 325 Mg Tablet) 650 mg PO Q6H PRN PRN PRN Reason: Pain Score 1-10/Temp > 100.7 F Al Hydroxide/Mg Hydroxide (Mag Hydrox/Al Hydrox/Simeth 30 Ml Udc) 30 ml PO Q6H PRN PRN PRN Reason: Gastric Burning Albuterol Sulfate (Albuterol 2.5 Mg/3 Ml Vial.Neb.) 2.5 mg INHALATION Q2H PRN PRN PRN Reason: SOB/Wheezing Amitriptyline HCl (Amitriptyline 100 Mg Tablet) 100 mg PO DAILY [facility] Amlodipine Besylate (Amlodipine 10 Mg Tablet) 10 mg PO DAILY [facility] Cholecalciferol (Cholecalciferol (Vit D3) 1,000 Unit (25mcg)) [facility] Dextrose (Dextrose 50%-Water 25 Gm/50 Ml Disp.Syrin) 0 gm IV X1 PRN; Protocol PRN Reason: Hypoglycemia Last Admin: 06/13/20 20:31 Dose: 12.5 gm Documented by: Enoxaparin Sodium (Enoxaparin 40 Mg/0.4 Ml Syringe) 40 mg SC DAILY [facility] Glucagon (Glucagon 1 Mg/Ml Syringe) 1 mg IM .X1 PRN PRN Reason: Hypoglycemia Guaifenesin (Guaifenesin 10 Ml Udc (200mg/10ml)) 20 ml PO Q4H PRN PRN PRN Reason: COUGH Hydralazine HCl (Hydralazine 20 Mg/Ml Vial) 10 mg IV Q4H PRN PRN PRN Reason: Hypertensive Emergency Levetiracetam 500 mg/ Sodium (Chloride) 105 mls @ 400 mls/hr IV Q12 [facility] Last Infusion: 06/13/20 22:38 Dose: Infused Documented by: Sodium Chloride () 500 mls @ 15 mls/hr IV PRN PRN PRN Reason: Blood Transfusion Sodium Chloride () 250 mls @ 15 mls/hr IV .[id number] PRN PRN Reason: Saline Flush Sodium Chloride () 250 mls @ 15 mls/hr IV .[id number] PRN PRN Reason: Additional IVPB Infusion Sodium Chloride () 1,000 mls @ 150 mls/hr IV .Q6H40M [facility] Last Admin: 06/14/20 05:15 Dose: 150 mls/hr Documented by: Amiodarone HCl 360 mg/ (Dextrose) 200 mls @ 16.667 mls/hr CONT INF .Q12H [facility] Stop: 06/15/20 01:29 Insulin Glargine (Insulin Glargine 100 Units/Ml Pen) 30 units SC BREAKFAST [facility] Insulin Glargine (Insulin Glargine 100 Units/Ml Pen) 30 units SC QHS [facility] Last Admin: 06/13/20 21:55 Dose: Not Given Documented by: Insulin Human Lispro (Insulin Lispro 100 Unit/Ml Insuln.Pen) 15 unit SC BREAKFAST [facility] Insulin Human Lispro (Insulin Lispro 100 Unit/Ml Insuln.Pen) 15 unit SC DINNER [facility] Last Admin: 06/13/20 17:16 Dose: Not Given Documented by: Insulin Human Lispro (Insulin Lispro 100 Unit/Ml Insuln.Pen) 15 unit SC LUNCH [facility] Last Admin: 06/13/20 15:13 Dose: 15 units Documented by: Insulin Human Lispro (Insulin Lispro 100 Unit/Ml Insuln.Pen) 0 unit SC Q4 [facility]; Protocol Last Admin: 06/14/20 05:19 Dose: 14 units Documented by: Melatonin (Melatonin 3 Mg Tablet) 3 mg PO QHS PRN PRN PRN Reason: INSOMNIA Metoprolol Tartrate (Metoprolol Tartrate 25 Mg Tablet) 25 mg PO BID [facility] Last Admin: 06/14/20 00:35 Dose: 25 mg Documented by: Nitroglycerin (Nitroglycerin (Inpatient Use) 0.4 Mg Tab.Subl) 0.4 mg SUBLINGUAL Q5M PRN PRN Reason: CARDIAC/CHEST PAIN Nutritional Formula (Lactose Free) (Glucerna Shake 120 Ml Liquid) 120 ml PO 4X/DAY [facility] Last Admin: 06/13/20 21:55 Dose: Not Given Documented by: Ondansetron HCl (Ondansetron 4 Mg/2 Ml Vial) 4 mg IV Q8H PRN PRN PRN Reason: NAUSEA/VOMITING Senna/Docusate Sodium (Senna/Docusate Sodium 1 Tablet) 2 tablet PO BID PRN PRN PRN Reason: Constipation Sodium Chloride (0.9% Saline Lock 10 Ml Syringe) 10 - 40 ml IV UD PRN PRN Reason: SALINE FLUSH Last Admin: 06/13/20 14:48 Dose: 10 ml Documented by: STROKE Vital Signs/Narrative: Vital Signs Temp Pulse Resp BP Pulse Ox 06/14/20 07:00 81 18 103/72 95 06/14/20 06:19 98.3 F 79 14 87/59 L 98 06/14/20 05:00 76 13 89/60 L 98 06/14/20 04:14 77 18 99/68 99 Medical Necessity - Tobacco Use Smoking Status: Never smoker Tobacco Use: Chew Assessment/Plan All Active Problems Seizure (Acute) Hyperglycemia (Acute) Patient is a 60-year-old gentleman presented with new onset seizures 1. New onset seizure ?Suspected to be secondary to patient hypoglycemia as a result of his uncontrolled diabetes. Patient has been admitted to monitored bed seizure precautions initiated. Initial head CT obtained was unremarkable. Patient did receive Ativan and Keppra Keppra continued on the floor. As part of his subsequent evaluation ordered EEG and MRI with and without contrast and consultation placed to [facility] telemetry neurology 2. Diabetes mellitus type 2 with hyperglycemia -Due to patient being noncompliant with his home insulin regimen. -Placed on long acting insulin, Accu-Cheks every 4 and covered with sliding scale insulin 3. Accelerated hypertension - patient was started on nicardipine drip from the ED plan is to wean off and initiate oral antihypertensives 4. History of postherpetic neuralgia ?Currently asymptomatic 5. Hypokalemia -corrected per protocol 6. Lactic acidosis ?Secondary to patient seizure no evidence of infection 7. Acute kidney injury ?Secondary to dehydration from patient hyperglycemia patient is on aggressive IV fluid resuscitation with subsequent monitoring of electrolyte 8. Hyponatremia ?Secondary to pseudohyponatremia as a result of hyperglycemia do expect rapid correction once patient glucose levels improved 9. Depression ?Patient is on amitriptyline 10. DVT prophylaxis ?Lovenox CODE STATUS full code
[2020-06-14] MEDS: Amiodarone 360 MG in Dextrose 5% Viaflo Bag 192.8 ML 16.7 MG CONT INF (08:35)
[2020-06-14] MEDS: Insulin Lispro 100 UNIT/ML INSULN.PEN 15 UNIT SC (08:39)
[2020-06-14] MEDS: Enoxaparin 40 MG/0.4 ML Syringe SC (08:42)
[2020-06-14] MEDS: Amitriptyline 100 MG Tablet PO (08:54)
[2020-06-14] MEDS: Glucerna Shake 120 ML LIQUID PO (10:07)
--- NOTE | 2020-06-14 10:42 | PCM.CONS.C ---
Problem List (1) Ventricular tachycardia (paroxysmal) Status: Acute (2) Seizure Status: Acute (3) Hyperlipidemia Status: Chronic Qualifiers: Hyperlipidemia type: unspecified Qualified Code(s): E78.5 - Hyperlipidemia, unspecified (4) Benign essential hypertension Status: Chronic (5) Type 2 diabetes mellitus Status: Chronic Qualifiers: Diabetes mellitus assisted insulin use: without medical terminologist use Diabetes mellitus complication status: with hyperglycemia Qualified Code(s): E11.65 - Type 2 diabetes mellitus with hyperglycemia Reason for Consult Date of Consultation: 06/14/20 History of Present Illness: The patient is a 60 year old white male with a history of hyperlipidemia, hypertension, diabetes mellitus, who presented for seizure events, and is now been referred for concerns of episode of paroxysmal ventricular tachycardia. He states he did undergo cardiovascular evaluation in the [id number] for reasons that he does not recall at this time. He states he did not require any ongoing cardiovascular follow-up or medical therapy. He notes recently he has been having issues with respect to diminished motor skills in his left upper extremity which he notices as he is left upper extremity dominant. He states that his son noted that he had what appeared to be a seizure. The EMS was summoned. He was brought to the emergency department for further evaluation. There he was reported as having another seizure event. He was subsequently placed in the hospital for further evaluation and care. 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 While on cardiac telemetry monitoring he has been noted to have episodes of what appeared to be paroxysmal nonsustained ventricular tachycardia (irregular wide-complex tachycardia). He does not recall any sensation of palpitation or rapid heart rate. He does not recall having any near syncopal or syncopal events. At the same time he denies any ongoing chest discomfort or difficulty breathing. Based upon the aforementioned concerns he was placed on IV amiodarone therapy. After initiation of IV amiodarone therapy he appeared to remain in sinus rhythm and has not appeared to have recurrent episodes of the paroxysmal irregular wide-complex tachycardia compatible with paroxysmal ventricular tachycardia. He has had cardiac enzymes performed which have been negative thus far. His cardiac rhythm is as noted. His ECG is as noted. He had a stress nuclear imaging study performed in 2018. The results are as noted below. He is also had a brain MRI with the results as noted below. [] Past Medical History Allergies/Adverse Reactions: Allergies hydrocodone bitartrate [From Vicodin] Adverse Reaction (Mild, Verified 09/21/18 08:05) HYPER lisinopril Adverse Reaction (Verified 09/21/18 08:05) Other CHEST PAIN Home Medications: Ambulatory Orders Medication Instructions Recorded Albuterol Inhaler [Ventolin Hfa] 2 puff INHALATION DAILY PRN 06/11/13 Ascorbate Calcium [Vitamin C] 500 mg PO DAILY 08/15/13 Cholecalciferol (Vitamin D3) 500 unit PO DAILY 08/15/13 [Vitamin D3] [place]-3S/Dha/Epa/Fish Oil/D3 [Fish 1 each PO DAILY 08/15/13 Oil-Vit D3 Softgel] Acetaminophen [Tylenol Tablet] 650 mg PO Q6H PRN PRN #60 tab 02/08/18 [place] 500 mg PO DAILY 02/28/18 Glucosamine HCl 2,000 mg PO DAILY 02/28/18 Insulin Lispro [Humalog KwikPen] 8 unit SC TIDAC 02/28/18 Krill/[place]-3/Dha/Epa/Lipids 1 each PO DAILY 02/28/18 [Krill Oil 350 mg Softgel] Potassium 99 mg PO BID 02/28/18 Amitriptyline HCl [Elavil] 100 mg PO DAILY 06/13/20 Insulin Glargine [Lantus SoloStar 25 units SC QHS 06/13/20 Pen] Lancets/Blood Glucose Strips [Fora 1 ea MC TID 06/13/20 [id number] Strp-Lnct] [place], Insulin Disposable 1 ea MISCELL. UD 06/13/20 [Novofine Autocover 30G Needle] Past Medical History (Chronic Problems): Chronic Problems Post herpetic neuralgia (Chronic) Peripheral neuropathy (Chronic) Hyperlipidemia (Chronic) Type 2 diabetes mellitus (Chronic) Benign essential hypertension (Chronic) Surgical History: - - S/p R shoulder surgery - *Family History Maternal History Items: No pertinent history - Denies any family history of seizures Paternal History Items: Hypertension Lives: With Family Smoking Status: Never smoker Tobacco Use: Chew Alcohol: None Drugs: None Review of Systems - Review of Systems General: Denies: Fever, Night Sweats, Fatigue Cardiovascular: Denies: Chest Discomfort, Shortness of Breath, Orthopnea, PND, Peripheral Edema, Palpitations, Lightheadedness, Dizziness, Near Syncope, Syncope Respiratory: Denies: Cough, Sputum Production, Hemoptysis Gastrointestinal: Denies: Hematemesis, Hematochezia, Melena Genitourinary: Denies: Dysuria, Hematuria Neurological: Reports: Seizure Subjectve: This is a 60-year-old white male who appears to be resting comfortably at the moment in no acute distress. Objective: Vital Signs Temp Pulse Resp BP Pulse Ox 98.6 F 92 14 93/64 95 06/14/20 08:34 06/14/20 10:00 06/14/20 10:00 06/14/20 10:00 06/14/20 10:00 Oxygen Flow Rate (L/min) 2 Oxygen Delivery Method Room Air Weight: 168 lb 6.931 oz Body Mass Index (BMI) 24.1 Finger Stick Blood Glucose 340 Intake and Output for Last 24 Hours 06/12/20 06/13/20 06/14/20 23:59 23:59 23:59 Intake Total 4152.5 / 4152.5 1876.66 / 1876.66 Output Total 800 / 800 200 / 200 Balance 3352.5 / 3352.5 1676.66 / 1676.66 General: Awake, Alert, Oriented x 3, Cooperative, No Acute Distress HEENT: Atraumatic, Normocephalic, PERRL, EOMI, Sclera Non Icteric Neck: Supple, Good ROM, No JVD Lungs: Clear to auscultation Cardiovascular: Regular Rhythm, Normal S1, Normal S2 Vascular: No Carotid Bruits Abdomen: Bowel Sounds Present, Soft, Non Tender Extremities: No edema Psych/Mental Status: Flat Affect 06/13/20 10:48: WBC 9.0, RBC 5.47, Hgb 15.5, Hct 47.9, MCV 87.6, MCH 28.3, MCHC 32.4, Plt Count 287, MPV 10.7, Immature Gran % (Auto) 0.300, Neut % (Auto) 60.5, Lymph % (Auto) 31.8, [place] % (Auto) 5.2, Eos % (Auto) 2.0, Baso % (Auto) 0.2, Absolute Neuts (auto) 5.4, Nucleated RBC % 0 06/13/20 10:48: PT Cancelled, INR Cancelled, APTT Cancelled 06/13/20 10:48: Sodium 132 L, Potassium 3.5, Chloride 94 L, Carbon Dioxide 23.0, Anion Gap 15, BUN 32 H, Creatinine 1.72 H, Est GFR (MDRD) Af Amer 52 L, Est GFR (MDRD) Non-Af 43 L, BUN/Creatinine Ratio 18.6, Glucose 604 H*, Calcium 9.3, Total Bilirubin 0.50, Troponin I < 0.015 06/13/20 10:48: Lactic Acid 8.1 H* 06/13/20 10:48: Magnesium 2.4 06/13/20 12:15: Urine Color Yellow, Urine Clarity Clear, Urine pH 5.0, Ur Specific [place] 1.010, Urine Protein 30 H, Urine Glucose (UA) 1000 H, Urine Ketones 15 H, Urine Occult Blood Negative, Urine Nitrite Negative, Urine Bilirubin Negative, Urine Urobilinogen Normal, Ur Leukocyte Esterase Negative, Urine RBC 0 SEEN, Urine WBC 0 SEEN 06/13/20 12:45: PT 12.9, INR 1.0, APTT 20.5 L 06/13/20 15:34: Lactic Acid 2.3 H* 06/13/20 15:34: Sodium 139, Potassium 4.5, Chloride 108 H, Carbon Dioxide 27.0, Anion Gap 4 L, BUN 30 H, Creatinine 1.36 H, Est GFR (MDRD) Af Amer 69, Est GFR (MDRD) Non-Af 57 L, BUN/Creatinine Ratio 22.1 H, Glucose 314 H, Calcium 9.3 06/14/20 01:31: Troponin I < 0.015 06/14/20 04:13: WBC 11.1 H, RBC 4.38 L, Hgb 12.6 L, Hct 38.6 L, MCV 88.1, MCH 28.8, MCHC 32.6, Plt Count 238, MPV 10.7, Immature Gran % (Auto) 0.400, Neut % (Auto) 73.3 H, Lymph % (Auto) 19.5, [place] % (Auto) 5.8, Eos % (Auto) 0.7, Baso % (Auto) 0.3, Absolute Neuts (auto) 8.1 H, Nucleated RBC % 0 06/14/20 04:13: Sodium 139, Potassium 4.2, Chloride 108 H, Carbon Dioxide 24.0, Anion Gap 7, BUN 31 H, Creatinine 1.23, Est GFR (MDRD) Af Amer 77, Est GFR (MDRD) Non-Af 64, BUN/Creatinine Ratio 25.2 H, Glucose 266 H, Calcium 7.8 L, Phosphorus 3.2, Magnesium 2.1 06/14/20 04:13: Troponin I < 0.015 06/14/20 07:21: Troponin I < 0.015 Rhythm: As noted above EKG: Sinus rhythm; poor R wave progression Stress Test: Stress Test Report Date: 06/21/2018 Procedure: Pharmacologic stress nuclear imaging study Indications: Chest pain Consent: Per the patient Procedure: The patient underwent pharmacologic (Regadenoson) evaluation with a peak heart rate of 99 beats per minute (61 predicted maximal heart rate) and a peak blood pressure of 160/102 mmHg. The baseline ECG demonstrated normal sinus rhythm; poor R wave progression. The peak pharmacologic ECG demonstrated no obvious ECG changes. There were rare PVCs during recovery. There was no complaint of chest discomfort during pharmacologic infusion or recovery. The examination was discontinued secondary to completion of protocol. Impression: 1. Pharmacologic (Regadenoson) evaluation 2. Peak pharmacologic ECG with no obvious ECG changes. 3. There were rare PVCs during recovery. 4. Nuclear images pending Myocardial perfusion imaging study: Technique: The patient was injected with 14.1 millicuries of technetium 99m Cardiolite and subsequently rest SPECT Cardiolite nuclear imaging was obtained in the horizontal long, vertical long, and short axis views. The patient underwent pharmacologic (Regadenoson) evaluation with a peak heart rate of 99 beats per minute (61 % percent predicted maximal heart rate) and a peak blood pressure of 160/102 mmHg. The patient was injected with 44.8 millicuries of technetium 99m Cardiolite and subsequently stress SPECT Cardiolite nuclear imaging was obtained in the horizontal long, vertical long, and short axis views. A gated Cardiolite study at peak stress was obtained. Interpretation: Rest and stress SPECT Cardiolite nuclear imaging status post realignment, normalization, and attenuation correction demonstrate rest and area of diminished tracer uptake in portions of the distal anteroseptal segment which status post stress appears to improve/normalize.. There is end systolic thickening and brightening. The gated Cardiolite study demonstrates myocardial thickening and inward wall motion. The reported LVEF is 68 %. Impression: 1. Test and stress SPECT Cardiolite nuclear imaging demonstrate myocardial perfusion changes at rest which appear to improve/normalized following stress appearing compatible shifting soft tissue attenuation/artifact with no myocardial perfusion changes considered diagnostic for associated stress-induced myocardial ischemia or previous myocardial injury/infarction. 2. The gated Cardiolite study reports an LVEF of 68 %. Brain MRI: IMPRESSION: 1. Small ring-enhancing lesion in the right posterior frontal lobe, suspicious for malignancy or solitary metastasis. Small abscess is an additional consideration. Assessment/Plan 1. Paroxysmal ventricular tachycardia The patient has had episodes of a paroxysmal irregular wide-complex tachycardia compatible with paroxysmal ventricular tachycardia. The etiology is uncertain as the patient claims no previous cardiovascular history and unremarkable previous noninvasive studies in the past at the [facility] as well as his previous nuclear imaging study performed at [facility] in 2018. At the moment the patient's cardiac enzymes are negative. On medical therapy with IV amiodarone he appears to be remaining in sinus rhythm at this time. His ECG is demonstrated no acute ECG findings. An echocardiogram has been requested to further evaluate his cardiac anatomy/function. In the interim he will continue medical therapy. From a cardiovascular standpoint he may need to be considered for further evaluation of both his coronary anatomy with diagnostic cardiac catheterization as well as his electrical/conduction system with EP consultation and possible EPS. The EP consultation and possible EPS would need to be performed at a tertiary care center. 2. Seizures The patient was diagnosed with seizures. He has been undergoing evaluation. This is included a brain MRI. The results are as noted. This may be the etiology for his neurologic symptoms/seizure activity. It is unclear as to whether or not this is related to the findings of his cardiac dysrhythmia. At the present time he continues to undergo neurologic evaluation. He is being considered for transfer to a tertiary care center for additional evaluation care based upon his brain MRI findings. 3. Hyperlipidemia He should continue lipid-lowering therapy as deemed appropriate. 4. Hypertension His blood pressure will need to be monitored. His medications can be adjusted as needed. 5. Diabetes mellitus He will continue evaluation care per internal medicine. Overall, from a cardiovascular standpoint, it is not unreasonable to consider the patient for transfer to a tertiary care center for further cardiovascular evaluation including EP consultation as well as further noncardiovascular evaluation based upon his seizure activity and his brain MRI findings. This note was generated using a voice recognition system and there may be incorrect words, spelling or punctuation that were not noted when reviewing the office note prior to saving.
[2020-06-14 10:51] LABS: Bedside Glucose 182 mg/dL (70-110)
[2020-06-14] MEDS: 0.9% Saline Lock 10 ML Syringe IV (11:16)
--- NOTE | 2020-06-14 11:23 | DCINST_ITS ---
- Discharge Diagnoses Current Active Problems: Current Active and Chronic Problems Post herpetic neuralgia (Chronic) Seizure (Acute) Hyperglycemia (Acute) Ventricular tachycardia (paroxysmal) (Acute) Peripheral neuropathy (Chronic) Hyperlipidemia (Chronic) Type 2 diabetes mellitus (Chronic) Benign essential hypertension (Chronic) You will use the following diet at home:: Calorie/Carbohydrate Controlled (specify 1200, 1400, etc) Discharge Activity: May Not Drive Allergies/Adverse Reactions: Allergies hydrocodone bitartrate [From Vicodin] Adverse Reaction (Mild, Verified 09/21/18 08:05) HYPER lisinopril Adverse Reaction (Verified 09/21/18 08:05) Other CHEST PAIN Medications to take at Discharge Albuterol Inhaler [Ventolin Hfa] 2 puff INHALATION DAILY PRN 06/11/13 Cholecalciferol (Vitamin D3) [Vitamin D3] 500 unit PO DAILY 08/15/13 Acetaminophen [Tylenol Tablet] 650 mg PO Q6H PRN PRN #60 tab 02/08/18 Amlodipine [Norvasc] 10 mg PO DAILY tab 06/14/20 Insulin Glargine [Lantus SoloStar Pen] 30 units SC BREAKFAST pen 06/14/20 Insulin Glargine [Lantus SoloStar Pen] 30 units SC QHS pen 06/14/20 Insulin Lispro [Humalog KwikPen] 15 unit SC BREAKFAST insuln.pen 06/14/20 Insulin Lispro [Humalog KwikPen] 15 unit SC DINNER insuln.pen 06/14/20 Insulin Lispro [Humalog KwikPen] 15 unit SC LUNCH insuln.pen 06/14/20 Insulin Lispro [Humalog KwikPen] See Protocol SC ACHS insuln.pen 06/14/20 Metoprolol Tartrate [Lopressor (beta deb)] 25 mg PO BID tab 06/14/20 levETIRAcetam tablet [Keppra tablet] 1,000 mg PO BID tab 06/14/20 Primary Care Physician: Amish Han MD [Primary Care Provider] - Test Results: Test results from this visit will be discussed in further detail at your follow- up appointment, if applicable. Proposed Discharge Date: 06/14/20
--- NOTE | 2020-06-14 11:35 | DS.PCM_ITS ---
Discharge Date and Diagnosis - Problem List Patient Problems: Active and Suspected Problems Seizure (Acute) Hyperglycemia (Acute) Ventricular tachycardia (paroxysmal) (Acute) Date of Admission: 06/13/20 Date of Discharge: 06/14/20 - Primary Discharge Diagnosis Acute Problems: Active Problems Seizure (Acute) Hyperglycemia (Acute) Ventricular tachycardia (paroxysmal) (Acute) - Secondary Discharge Diagnosis Chronic Problems: Chronic Problems Post herpetic neuralgia (Chronic) Peripheral neuropathy (Chronic) Hyperlipidemia (Chronic) Type 2 diabetes mellitus (Chronic) Benign essential hypertension (Chronic) Hospital Course and Treatment Imaging Results: Clinical Impression(s) from Imaging Studies Brain CT 06/13/20 10:35 IMPRESSION: No acute abnormality is seen. Electronically Signed: Michael Allen, at 10:59 EST , Service support , Brain MRI 06/13/20 14:02 IMPRESSION: 1. Small ring-enhancing lesion in the right posterior frontal lobe, suspicious for malignancy or solitary metastasis. Small abscess is an additional consideration. Electronically Signed: Cherelle Ko MD at 20:54 EST Tel , Service support , Operations: None Summary of Care Provided: Patient is a 60-year-old gentleman presented with new onset seizures 1. New onset seizure ?Suspected to be secondary to patient hypoglycemia as a result of his uncontrolled diabetes. Patient has been admitted to monitored bed seizure precautions initiated. Initial head CT obtained was unremarkable. Patient did receive Ativan and Keppra Keppra continued on the floor. As part of his subsequent evaluation ordered EEG and MRI with and without contrast and consultation placed to [facility] [place] -06/14/2020. MRI obtained demonstrated Small ring-enhancing lesion in the right posterior frontal lobe, suspicious for malignancy or solitary metastasis. Based on above finding discussions were held with the patient decision was made to transfer patient to tertiary care center with neurosurgery and neurology availability. 2. Diabetes mellitus type 2 with hyperglycemia -Due to patient being noncompliant with his home insulin regimen. -Placed on long acting insulin, Accu-Cheks every 4 and covered with sliding scale insulin 3. Accelerated hypertension - patient was started on nicardipine drip from the ED plan is to wean off and i nitiate oral antihypertensives 4. History of postherpetic neuralgia ?Currently asymptomatic 5. Hypokalemia -corrected per protocol 6. Lactic acidosis ?Secondary to patient seizure no evidence of infection 7. Acute kidney injury ?Secondary to dehydration from patient hyperglycemia patient is on aggressive IV fluid resuscitation with subsequent monitoring of electrolyte -Resolved with rehydration 8. Hyponatremia ?Secondary to pseudohyponatremia as a result of hyperglycemia do expect rapid correction once patient glucose levels improved 9. Depression ?Patient is on amitriptyline 10. DVT prophylaxis ?Lovenox 11. Questionable nonsustained VT Patient was started on amiodarone drip discontinued prior to patient being transferred. Patient was seen in consultation by Dr. Strong with cardiology his notes and recommendations reviewed. Patient Problems: Active and Suspected Problems Seizure (Acute) Hyperglycemia (Acute) Ventricular tachycardia (paroxysmal) (Acute) - Physical Exam Vitals/I&O's: Vital Signs Temp Pulse Resp BP Pulse Ox 98.6 F 90 13 86/56 L 90 06/14/20 08:34 06/14/20 11:00 06/14/20 11:00 06/14/20 11:00 06/14/20 11:00 Oxygen Flow Rate (L/min) 2 Oxygen Delivery Method Room Air Weight: 76.4 kg Body Mass Index (BMI) 24.1 Finger Stick Blood Glucose 340 Intake and Output for Last 24 Hours 06/12/20 06/13/20 06/14/20 23:59 23:59 23:59 Intake Total 4152.5 / 4152.5 2905.04 / 2905.04 Output Total 800 / 800 200 / 200 Balance 3352.5 / 3352.5 2705.04 / 2705.04 General: Alert HEENT: Atraumatic Lungs: Clear to auscultation Cardiovascular: Regular rate, Regular Rhythm Psych/Mental Status: Normal Affect Laboratory Results 06/13/20 10:48: PT Cancelled, INR Cancelled, APTT Cancelled 06/13/20 10:48: Magnesium 2.4 06/13/20 12:15: Urine Color Yellow, Urine Clarity Clear, Urine pH 5.0, Ur Specific [place] 1.010, Urine Protein 30 H, Urine Glucose (UA) 1000 H, Urine Ketones 15 H, Urine Occult Blood Negative, Urine Nitrite Negative, Urine Bilirubin Negative, Urine Urobilinogen Normal, Ur Leukocyte Esterase Negative, Urine RBC 0 SEEN, Urine WBC 0 SEEN, Ur Squamous Epith Cells 0 SEEN, Urine Bacteria 0 SEEN, Urine Mucus 0 SEEN 06/13/20 12:15: Urine Opiates Screen NEGATIVE, Urine Methadone Screen NEGATIVE, Ur Barbiturates Screen NEGATIVE, Ur Phencyclidine Scrn NEGATIVE, Ur Amphetamines Screen NEGATIVE, U Methamphetamin-MDMA NEGATIVE, U Benzodiazepines Scrn NEGATIVE, Urine Cocaine Screen NEGATIVE, U Cannabinoids Screen NEGATIVE, Ur Drug Screen Comment 06/13/20 12:45: PT 12.9, INR 1.0, APTT 20.5 L 06/13/20 14:46: POC Glucose 343 H 06/13/20 15:34: Lactic Acid 2.3 H* 06/13/20 15:34: Sodium 139, Potassium 4.5, Chloride 108 H, Carbon Dioxide 27.0, Anion Gap 4 L, BUN 30 H, Creatinine 1.36 H, Estim Creat Clear Calc 59.64, Est GFR (MDRD) Af Amer 69, Est GFR (MDRD) Non-Af 57 L, BUN/Creatinine Ratio 22.1 H, Glucose 314 H, Calcium 9.3 06/13/20 17:15: POC Glucose 96 06/13/20 20:29: POC Glucose 58 L 06/13/20 20:53: POC Glucose 125 H 06/14/20 00:31: POC Glucose 161 H 06/14/20 01:31: Troponin I < 0.015, TSH 0.61, Free T4 0.90 06/14/20 04:13: WBC 11.1 H, RBC 4.38 L, Hgb 12.6 L, Hct 38.6 L, MCV 88.1, MCH 28.8, MCHC 32.6, RDW Std Deviation 38.5, RDW Coeff of Silvia 11.9, Plt Count 238, MPV 10.7, Immature Gran % (Auto) 0.400, Neut % (Auto) 73.3 H, Lymph % (Auto) 19.5, [place] % (Auto) 5.8, Eos % (Auto) 0.7, Baso % (Auto) 0.3, Absolute Neuts (auto) 8.1 H, Absolute Lymphs (auto) 2.16, Nucleated RBC % 0 06/14/20 04:13: Sodium 139, Potassium 4.2, Chloride 108 H, Carbon Dioxide 24.0, Anion Gap 7, BUN 31 H, Creatinine 1.23, Estim Creat Clear Calc 65.94, Est GFR (MDRD) Af Amer 77, Est GFR (MDRD) Non-Af 64, BUN/Creatinine Ratio 25.2 H, Glucose 266 H, Calcium 7.8 L, Phosphorus 3.2, Magnesium 2.1 06/14/20 04:13: Troponin I < 0.015 06/14/20 05:18: POC Glucose 385 H 06/14/20 07:21: Troponin I < 0.015 06/14/20 10:43: POC Glucose 182 H Current Medications Acetaminophen (Acetaminophen 325 Mg Tablet) 650 mg PO Q6H PRN PRN PRN Reason: Pain Score 1-10/Temp > 100.7 F Al Hydroxide/Mg Hydroxide (Mag Hydrox/Al Hydrox/Simeth 30 Ml Udc) 30 ml PO Q6H PRN PRN PRN Reason: Gastric Burning Albuterol Sulfate (Albuterol 2.5 Mg/3 Ml Vial.Neb.) 2.5 mg INHALATION Q2H PRN PRN PRN Reason: SOB/Wheezing Cholecalciferol (Cholecalciferol (Vit D3) 1,000 Unit (25mcg)) [facility] Last Admin: 06/14/20 08:53 Dose: 500 unit Documented by: Dextrose (Dextrose 50%-Water 25 Gm/50 Ml Disp.Syrin) 0 gm IV X1 PRN; Protocol PRN Reason: Hypoglycemia Last Admin: 06/13/20 20:31 Dose: 12.5 gm Documented by: Enoxaparin Sodium (Enoxaparin 40 Mg/0.4 Ml Syringe) 40 mg SC DAILY [facility] Last Admin: 06/14/20 08:42 Dose: 40 mg Documented by: Glucagon (Glucagon 1 Mg/Ml Syringe) 1 mg IM .X1 PRN PRN Reason: Hypoglycemia Guaifenesin (Guaifenesin 10 Ml Udc (200mg/10ml)) 20 ml PO Q4H PRN PRN PRN Reason: COUGH Sodium Chloride () 500 mls @ 15 mls/hr IV PRN PRN PRN Reason: Blood Transfusion Sodium Chloride () 250 mls @ 15 mls/hr IV .[id number] PRN PRN Reason: Saline Flush Sodium Chloride () 250 mls @ 15 mls/hr IV .[id number] PRN PRN Reason: Additional IVPB Infusion Sodium Chloride () 1,000 mls @ 150 mls/hr IV .Q6H40M [facility] Last Admin: 06/14/20 11:16 Dose: 150 mls/hr Documented by: Sodium Chloride () 1,000 mls @ 999 mls/hr IV .Q1H1M ONE Stop: 06/14/20 12:24 Insulin Glargine (Insulin Glargine 100 Units/Ml Pen) 30 units SC BREAKFAST [facility] Insulin Glargine (Insulin Glargine 100 Units/Ml Pen) 30 units SC QHS [facility] Last Admin: 06/13/20 21:55 Dose: Not Given Documented by: Insulin Human Lispro (Insulin Lispro 100 Unit/Ml Insuln.Pen) 15 unit SC BREAKFAST [facility] Last Admin: 06/14/20 08:39 Dose: 15 unit Documented by: Insulin Human Lispro (Insulin Lispro 100 Unit/Ml Insuln.Pen) 15 unit SC DINNER [facility] Last Admin: 06/13/20 17:16 Dose: Not Given Documented by: Insulin Human Lispro (Insulin Lispro 100 Unit/Ml Insuln.Pen) 15 unit SC LUNCH [facility] Last Admin: 06/13/20 15:13 Dose: 15 units Documented by: Insulin Human Lispro (Insulin Lispro 100 Unit/Ml Insuln.Pen) 0 unit SC ACHS [facility]; Protocol Levetiracetam (Levetiracetam 1,000 Mg Tablet) 1,000 mg PO BID [facility] Melatonin (Melatonin 3 Mg Tablet) 3 mg PO QHS PRN PRN PRN Reason: INSOMNIA Metoprolol Tartrate (Metoprolol Tartrate 25 Mg Tablet) 25 mg PO BID [facility] Last Admin: 06/14/20 08:42 Dose: Not Given Documented by: Nitroglycerin (Nitroglycerin (Inpatient Use) 0.4 Mg Tab.Subl) 0.4 mg SUBLINGUAL Q5M PRN PRN Reason: CARDIAC/CHEST PAIN Nutritional Formula (Lactose Free) (Glucerna Shake 120 Ml Liquid) 120 ml PO 4X/DAY [facility] Last Admin: 06/14/20 10:07 Dose: 120 ml Documented by: Ondansetron HCl (Ondansetron 4 Mg/2 Ml Vial) 4 mg IV Q8H PRN PRN PRN Reason: NAUSEA/VOMITING Senna/Docusate Sodium (Senna/Docusate Sodium 1 Tablet) 2 tablet PO BID PRN PRN PRN Reason: Constipation Sodium Chloride (0.9% Saline Lock 10 Ml Syringe) 10 - 40 ml IV UD PRN PRN Reason: SALINE FLUSH Last Admin: 06/14/20 11:16 Dose: 10 ml Documented by: Discharge Diet: 1800 Calorie Control Diet Discharge Activity: May Not Drive Home Medications: Medications to take at Discharge Albuterol Inhaler [Ventolin Hfa] 2 puff INHALATION DAILY PRN 06/11/13 Cholecalciferol (Vitamin D3) [Vitamin D3] 500 unit PO DAILY 08/15/13 Acetaminophen [Tylenol Tablet] 650 mg PO Q6H PRN PRN #60 tab 02/08/18 Insulin Glargine [Lantus SoloStar Pen] 30 units SC QHS pen 06/14/20 Metoprolol Tartrate [Lopressor (beta deb)] 25 mg PO BID tab 06/14/20 levETIRAcetam tablet [Keppra tablet] 1,000 mg PO BID tab 06/14/20 Primary Care Physician: Amish Han MD [Primary Care Provider] - Disposition: Acute care Hospital Minutes spent on discharge:: 45 Patient Condition:: Stable Medical Necessity - Tobacco Use Smoking Status: Never smoker Tobacco Use: Chew Meaningful Use Info Meaningful Use Diagnoses (Choose all that apply): None applicable Inpatient E&M: 22590 Disch Hosp
[2020-06-14] MEDS: 0.9% Normal Saline 1,000 ML 999 ML IV (11:39)
--- NOTE | 2020-06-14 11:49 | DCINST_ITS ---
- Discharge Diagnoses Current Active Problems: Current Active and Chronic Problems Post herpetic neuralgia (Chronic) Seizure (Acute) Hyperglycemia (Acute) Ventricular tachycardia (paroxysmal) (Acute) Peripheral neuropathy (Chronic) Hyperlipidemia (Chronic) Type 2 diabetes mellitus (Chronic) Benign essential hypertension (Chronic) You will use the following diet at home:: Calorie/Carbohydrate Controlled (specify 1200, 1400, etc) - 1800 Discharge Activity: May Not Drive Allergies/Adverse Reactions: Allergies hydrocodone bitartrate [From Vicodin] Adverse Reaction (Mild, Verified 09/21/18 08:05) HYPER lisinopril Adverse Reaction (Verified 09/21/18 08:05) Other CHEST PAIN Medications to take at Discharge Albuterol Inhaler [Ventolin Hfa] 2 puff INHALATION DAILY PRN 06/11/13 Cholecalciferol (Vitamin D3) [Vitamin D3] 500 unit PO DAILY 08/15/13 Acetaminophen [Tylenol Tablet] 650 mg PO Q6H PRN PRN #60 tab 02/08/18 Insulin Glargine [Lantus SoloStar Pen] 30 units SC QHS pen 06/14/20 Metoprolol Tartrate [Lopressor (beta deb)] 25 mg PO BID tab 06/14/20 levETIRAcetam tablet [Keppra tablet] 1,000 mg PO BID tab 06/14/20 Primary Care Physician: Amish Han MD [Primary Care Provider] - Test Results: Test results from this visit will be discussed in further detail at your follow- up appointment, if applicable. Proposed Discharge Date: 06/14/20
--- NOTE | 2020-06-14 12:15 | PN_ITS ---
Patient Problems: Active and Suspected Problems Seizure (Acute) Hyperglycemia (Acute) Ventricular tachycardia (paroxysmal) (Acute) Reason for Visit: 1. New onset seizures 2. Right posterior frontal lobe lesion suspicious for malignancy 3. Hyperglycemia 4. Nonsustained runs of VT Subjective: Patient is a 60-year-old gentleman presented with new onset seizures and hypoglycemia. Admitted to monitored bed for subsequent management. Patient apparently had runs of frequent ventricular tachycardia during the night necessitating initiation of amiodarone drip with consultation placed to cardiology Objective: GENERAL: cooperative HEENT: Atraumatic; EYES; Anicteric, Normal Conjunctiva NECK; supple, normal thyroid, RESPIRATORY: Diminished to auscultation CARDIOVASCULAR: Regular S1 S2, GI: soft, normoactive bowel sounds, : No Renal angle tenderness; EXTREMITIES: No edema, no clubbing, MUSCULOSKELETAL: no muscle waisting NEURO: Awake; no lateralizing signs. SKIN: No Rash PSYCH; Flat affect Vitals/I&O's: Vital Signs Temp Pulse Resp BP Pulse Ox 98.6 F 90 13 101/65 90 06/14/20 08:34 06/14/20 11:00 06/14/20 11:00 06/14/20 12:03 06/14/20 11:00 Oxygen Flow Rate (L/min) 2 Oxygen Delivery Method Room Air Weight: 76.4 kg Body Mass Index (BMI) 24.1 Finger Stick Blood Glucose 340 Intake and Output for Last 24 Hours 06/12/20 06/13/20 06/14/20 23:59 23:59 23:59 Intake Total 4152.5 / 4152.5 2962.54 / 2962.54 Output Total 800 / 800 200 / 200 Balance 3352.5 / 3352.5 2762.54 / 2762.54 Laboratory Results 06/13/20 10:48: PT Cancelled, INR Cancelled, APTT Cancelled 06/13/20 10:48: Magnesium 2.4 06/13/20 12:15: Urine Color Yellow, Urine Clarity Clear, Urine pH 5.0, Ur Specific [place] 1.010, Urine Protein 30 H, Urine Glucose (UA) 1000 H, Urine Ketones 15 H, Urine Occult Blood Negative, Urine Nitrite Negative, Urine Bilirubin Negative, Urine Urobilinogen Normal, Ur Leukocyte Esterase Negative, Urine RBC 0 SEEN, Urine WBC 0 SEEN, Ur Squamous Epith Cells 0 SEEN, Urine Bacteria 0 SEEN, Urine Mucus 0 SEEN 06/13/20 12:15: Urine Opiates Screen NEGATIVE, Urine Methadone Screen NEGATIVE, Ur Barbiturates Screen NEGATIVE, Ur Phencyclidine Scrn NEGATIVE, Ur Amphetamines Screen NEGATIVE, U Methamphetamin-MDMA NEGATIVE, U Benzodiazepines Scrn NEGATIVE, Urine Cocaine Screen NEGATIVE, U Cannabinoids Screen NEGATIVE, Ur Drug Screen Comment 06/13/20 12:45: PT 12.9, INR 1.0, APTT 20.5 L 06/13/20 14:46: POC Glucose 343 H 06/13/20 15:34: Lactic Acid 2.3 H* 06/13/20 15:34: Sodium 139, Potassium 4.5, Chloride 108 H, Carbon Dioxide 27.0, Anion Gap 4 L, BUN 30 H, Creatinine 1.36 H, Estim Creat Clear Calc 59.64, Est GFR (MDRD) Af Amer 69, Est GFR (MDRD) Non-Af 57 L, BUN/Creatinine Ratio 22.1 H, Glucose 314 H, Calcium 9.3 06/13/20 17:15: POC Glucose 96 06/13/20 20:29: POC Glucose 58 L 06/13/20 20:53: POC Glucose 125 H 06/14/20 00:31: POC Glucose 161 H 06/14/20 01:31: Troponin I < 0.015, TSH 0.61, Free T4 0.90 06/14/20 04:13: WBC 11.1 H, RBC 4.38 L, Hgb 12.6 L, Hct 38.6 L, MCV 88.1, MCH 28.8, MCHC 32.6, RDW Std Deviation 38.5, RDW Coeff of Silvia 11.9, Plt Count 238, MPV 10.7, Immature Gran % (Auto) 0.400, Neut % (Auto) 73.3 H, Lymph % (Auto) 19.5, [place] % (Auto) 5.8, Eos % (Auto) 0.7, Baso % (Auto) 0.3, Absolute Neuts (auto) 8.1 H, Absolute Lymphs (auto) 2.16, Nucleated RBC % 0 06/14/20 04:13: Sodium 139, Potassium 4.2, Chloride 108 H, Carbon Dioxide 24.0, Anion Gap 7, BUN 31 H, Creatinine 1.23, Estim Creat Clear Calc 65.94, Est GFR (MDRD) Af Amer 77, Est GFR (MDRD) Non-Af 64, BUN/Creatinine Ratio 25.2 H, Glucose 266 H, Calcium 7.8 L, Phosphorus 3.2, Magnesium 2.1 06/14/20 04:13: Troponin I < 0.015 06/14/20 05:18: POC Glucose 385 H 06/14/20 07:21: Troponin I < 0.015 06/14/20 10:43: POC Glucose 182 H Current Medications Acetaminophen (Acetaminophen 325 Mg Tablet) 650 mg PO Q6H PRN PRN PRN Reason: Pain Score 1-10/Temp > 100.7 F Al Hydroxide/Mg Hydroxide (Mag Hydrox/Al Hydrox/Simeth 30 Ml Udc) 30 ml PO Q6H PRN PRN PRN Reason: Gastric Burning Albuterol Sulfate (Albuterol 2.5 Mg/3 Ml Vial.Neb.) 2.5 mg INHALATION Q2H PRN PRN PRN Reason: SOB/Wheezing Cholecalciferol (Cholecalciferol (Vit D3) 1,000 Unit (25mcg)) [facility] Admin: 06/14/20 08:53 Dose: 500 unit Documented by: Dextrose (Dextrose 50%-Water 25 Gm/50 Ml Disp.Syrin) 0 gm IV X1 PRN; Protocol PRN Reason: Hypoglycemia Last Admin: 06/13/20 20:31 Dose: 12.5 gm Documented by: Enoxaparin Sodium (Enoxaparin 40 Mg/0.4 Ml Syringe) 40 mg SC DAILY [facility] Last Admin: 06/14/20 08:42 Dose: 40 mg Documented by: Glucagon (Glucagon 1 Mg/Ml Syringe) 1 mg IM .X1 PRN PRN Reason: Hypoglycemia Guaifenesin (Guaifenesin 10 Ml Udc (200mg/10ml)) 20 ml PO Q4H PRN PRN PRN Reason: COUGH Sodium Chloride () 500 mls @ 15 mls/hr IV PRN PRN PRN Reason: Blood Transfusion Sodium Chloride () 250 mls @ 15 mls/hr IV .[id number] PRN PRN Reason: Saline Flush Sodium Chloride () 250 mls @ 15 mls/hr IV .[id number] PRN PRN Reason: Additional IVPB Infusion Sodium Chloride () 1,000 mls @ 150 mls/hr IV .Q6H40M [facility] Last Infusion: 06/14/20 11:39 Dose: 0 mls/hr Documented by: Sodium Chloride () 1,000 mls @ 999 mls/hr IV .Q1H1M ONE Stop: 06/14/20 12:24 Last Admin: 06/14/20 11:39 Dose: 999 mls/hr Documented by: Amiodarone HCl 360 mg/ (Dextrose) 200 mls @ 16.667 mls/hr CONT INF .Q12H [facility] Insulin Glargine (Insulin Glargine 100 Units/Ml Pen) 30 units SC QHS [facility] Last Admin: 06/13/20 21:55 Dose: Not Given Documented by: Insulin Human Lispro (Insulin Lispro 100 Unit/Ml Insuln.Pen) 0 unit SC ACHS [facility]; Protocol Last Admin: 06/14/20 11:49 Dose: Not Given Documented by: Levetiracetam (Levetiracetam 1,000 Mg Tablet) 1,000 mg PO BID [facility] Melatonin (Melatonin 3 Mg Tablet) 3 mg PO QHS PRN PRN PRN Reason: INSOMNIA Metoprolol Tartrate (Metoprolol Tartrate 25 Mg Tablet) 25 mg PO BID [facility] Last Admin: 06/14/20 08:42 Dose: Not Given Documented by: Nitroglycerin (Nitroglycerin (Inpatient Use) 0.4 Mg Tab.Subl) 0.4 mg SUBLINGUAL Q5M PRN PRN Reason: CARDIAC/CHEST PAIN Nutritional Formula (Lactose Free) (Glucerna Shake 120 Ml Liquid) 120 ml PO 4X/DAY [facility] Last Admin: 06/14/20 10:07 Dose: 120 ml Documented by: Ondansetron HCl (Ondansetron 4 Mg/2 Ml Vial) 4 mg IV Q8H PRN PRN PRN Reason: NAUSEA/VOMITING Senna/Docusate Sodium (Senna/Docusate Sodium 1 Tablet) 2 tablet PO BID PRN PRN PRN Reason: Constipation Sodium Chloride (0.9% Saline Lock 10 Ml Syringe) 10 - 40 ml IV UD PRN PRN Reason: SALINE FLUSH Last Admin: 06/14/20 11:16 Dose: 10 ml Documented by: STROKE Vital Signs/Narrative: Vital Signs Temp Pulse Resp BP BP Pulse Ox 06/14/20 12:03 101/65 06/14/20 11:00 90 13 86/56 L 90 06/14/20 10:00 92 14 93/64 95 06/14/20 09:00 84 16 87/62 L 99 06/14/20 08:42 79 88/78 L 06/14/20 08:34 98.6 F 06/14/20 08:32 68 Medical Necessity - Tobacco Use Smoking Status: Never smoker Tobacco Use: Chew Assessment/Plan All Active Problems Seizure (Acute) Hyperglycemia (Acute) Ventricular tachycardia (paroxysmal) (Acute) Patient is a 60-year-old gentleman presented with new onset seizures 1. New onset seizure ?Suspected to be secondary to patient hypoglycemia as a result of his uncontrolled diabetes. Patient has been admitted to monitored bed seizure precautions initiated. Initial head CT obtained was unremarkable. Patient did receive Ativan and Keppra Keppra continued on the floor. As part of his subsequent evaluation ordered EEG and MRI with and without contrast and consultation [place] [facility] [place]. MRI obtained demonstrated Small ring-enhancing lesion in the right posterior frontal lobe, suspicious for malignancy or solitary metastasis. Based on above finding discussions were held with the patient decision was made to transfer patient to tertiary care center with neurosurgery and neurology availability. 2. Diabetes mellitus type 2 with hyperglycemia -Due to patient being noncompliant with his home insulin regimen. -Placed on long acting insulin, Accu-Cheks every 4 and covered with sliding scale insulin 3. Accelerated hypertension - patient was started on nicardipine drip from the ED plan is to wean off and initiate oral antihypertensives 4. History of postherpetic neuralgia ?Currently asymptomatic 5. Hypokalemia -corrected per protocol 6. Lactic acidosis ?Secondary to patient seizure no evidence of infection 7. Acute kidney injury ?Secondary to dehydration from patient hyperglycemia patient is on aggressive IV fluid resuscitation with subsequent monitoring of electrolyte -Resolved with rehydration 8. Hyponatremia ?Secondary to pseudohyponatremia as a result of hyperglycemia do expect rapid correction once patient glucose levels improved 9. Depression ?Patient is on amitriptyline 10. DVT prophylaxis ?Lovenox 11. Questionable nonsustained VT Patient was started on amiodarone drip discontinued prior to patient being transferred. Patient was seen in consultation by Dr. Moodispaw with cardiology his notes and recommendations reviewed. Inpatient E&M: 96141 Subs Hosp L3
[2020-06-14 15:46] LABS: Bedside Glucose 195 mg/dL (70-110)
--- NOTE | 2020-06-14 16:03 | NURSING ---
Addendum entered by Shirley Argueta 06/14/20 16:47: Nurse Dana Original Note: Report called to ICU, [facility].
--- NOTE | 2020-06-14 16:16 | NURSING ---
Sister Briseida updated on patient being transferred to [facility] T2, 211 with squad brain picker time [id number].
== END 2020-06-14 18:15 | disposition short-term general hospital (02) | DRG 55 ==
LOC: ED 11:45 → PCU 12:11
PROVIDERS: Family Medicine; Admitting Provider Internal Medicine; Emergency Provider Emergency Medicine; PCP Family Medicine; Visit Provider Internal Medicine
DX: C71.1 Malignant neoplasm of frontal lobe (principal); I47.2 Ventricular tachycardia; B02.29 Other postherpetic nervous system involvement; E87.1 Hypo-osmolality and hyponatremia; N17.9 Acute kidney failure, unspecified; R56.9 Unspecified convulsions; E11.65 Type 2 diabetes mellitus with hyperglycemia; E86.0 Dehydration; E11.42 Type 2 diabetes mellitus with diabetic polyneuropathy; I10 Essential (primary) hypertension; E78.5 Hyperlipidemia, unspecified; E87.6 Hypokalemia; F32.9 Major depressive disorder, single episode, unspecified; Z72.0 Tobacco use; Z79.4 Long term (current) use of insulin; Z79.899 Other long term (current) drug therapy; Z91.14 Patient's other noncompliance with medication regimen
CPT/HCPCS: 36415; 36569; 70450; 70553; 80048; 80053; 80307; 81001; 82962; 83605; 83735; 84100; 84439; 84443; 84484; 85025; 85610; 85730; 93005; 93306; 95819; 99285; A9575; J7030; J7050; Q9957; A4216; C8929

== ENCOUNTER → 2020-11-04 14:52 | Outpatient (CLI) | payer MEDICARE, SELFPAY ==
[2020-06-13 14:04] VITALS: BMI 24.1
[2020-11-04 17:32] LABS: Absolute Lymphocyte Count 1.73 X10^3/uL (0.83-4.51); Absolute Neutrophil Count 4.1 X10^3/uL (2.0-7.7); Basophil# 0.03 X10^3/uL; Basophil% 0.5 % (0-1); Eosinophil# 0.13 X10^3/uL; Eosinophils% 2.1 % (0-5); Lymphocyte # 1.73 X10^3/ul (4.0); Lymphocyte % 27.5 % (19-41); Mean Corp Hgb Conc 32.6 g/dL (32-36); Mean Corpuscular Hgb 27.7 pg (27.0-32.0); Mean Platelet Vol. 11.6 fl (6.2-12.0); Monocyte# 0.32 X10^3/uL; Monocyte% 5.1 % (0-10); NRBC Flagged by Analyzer 0 % (0-5); Neutrophil # 4.05 X10^3/uL (2.7-7.7); Neutrophil % 64.5 % (47-70); Platelet Count 244 K/mm3 (150-450); RBC Distribution Width CV 12.3 % (11.6-14.6); RBC Distribution Width SD 37.8 fl (35.1-43.9); Red Blood Count 5.06 M/mm3 (4.6-6.2); White Blood Count 6.3 K/mm3 (4.4-11.0)
[2020-11-04 18:22] LABS: ALB/GLOB Ratio 1.1 RATIO (0.9-2.4); AST(SGOT) 6 U/L (15-37); Alanine Aminotransfer ALT/SGPT 21 U/L (16-61); Albumin, Serum 3.7 g/dL (3.2-5.0); Alkaline Phosphatase 79 U/L (45-117); Anion Gap 4 (5-15); BUN 29 mg/dL (7-18); BUN/Creat Ratio 19.6 RATIO (10-20); Calcium,Total 9.1 mg/dL (8.5-10.1); Chloride 100 mmol/L (98-107); Cholesterol 284 mg/dL (200); Creatinine, Serum 1.48 mg/dL (0.70-1.30); EST Glomerular Filtration Rate 51 mL/min (>60); Est Glom Filt Rate - Afr Amer 62 mL/min (>60); Globulin 3.5 g/dL (2.2-4.2); Glucose 469 mg/dL (74-106); High Density Lipoprotein 45 mg/dL; Protein, Total 7.2 g/dL (6.4-8.2); Sodium Level 133 mmol/L (136-145); Triglycerides 258 mg/dL; Very Low Density Lipoprotein 52 mg/dL (5-40)
[2020-11-04 18:27] LABS: Hemoglobin A1c 11.2 % (3.8-5.6)
== END ==
PROVIDERS: PCP Family Medicine; Referring Provider Family Medicine; Visit Provider Family Medicine
DX: E11.65 Type 2 diabetes mellitus with hyperglycemia (principal); E78.5 Hyperlipidemia, unspecified
CPT/HCPCS: 36415; 80053; 80061; 82043; 82570; 83036; 85025

== ENCOUNTER 2021-02-12 12:52 | Inpatient (IN) | payer MEDICARE, SELFPAY ==
[2020-06-13 14:04] VITALS: BMI 24.1
[2021-02-12] VITALS (13 sets, daily range): BP systolic 177–212; BP diastolic 98–133; PULSE 21–103; RESP 18–25; TEMP 36.3–36.9; O2SAT 85–99; BMI 29.0; BMI 28.0
--- NOTE | 2021-02-12 13:14 | EKG12_ITS ---
Test Reason : SOB Blood Pressure : / mmHG Vent. Rate : 099 BPM Atrial Rate : 099 BPM P-R Int : 116 ms QRS Dur : 084 ms QT Int : 352 ms P-R-T Axes : 027 017 064 degrees QTc Int : 451 ms Normal sinus rhythm Normal ECG Confirmed by ARTHUR MONSON, YUMIKO ([id number]), editorial clerk HANNAH BRAY ([id number]) on 02/16/2021 1:03:45 PM Referred By: BINH/IVONNE Confirmed By:YUMIKO GIBSON MD
[2021-02-12 13:25] LABS: Absolute Lymphocyte Count 1.49 X10^3/uL (0.83-4.51); Absolute Neutrophil Count 4.6 X10^3/uL (2.0-7.7); Basophil# 0.06 X10^3/uL; Basophil% 0.9 % (0-1); Eosinophil# 0.16 X10^3/uL; Eosinophils% 2.4 % (0-5); Hematocrit 38.9 % (40-54); Hemoglobin 12.3 g/dL (13.0-16.5); Lymphocyte # 1.49 X10^3/ul (0.83-4.51); Lymphocyte % 22.1 % (19-41); Mean Corp Hgb Conc 31.6 g/dL (32-36); Mean Corpuscular Volume 88.6 fL (80-94); Mean Platelet Vol. 10.4 fl (6.2-12.0); Monocyte% 5.9 % (0-10); NRBC Flagged by Analyzer 0 % (0-5); Neutrophil # 4.59 X10^3/uL (2.7-7.7); Neutrophil % 68.3 % (47-70); Platelet Count 280 K/mm3 (150-450); RBC Distribution Width CV 12.7 % (11.6-14.6); RBC Distribution Width SD 41.5 fl (35.1-43.9); Red Blood Count 4.39 M/mm3 (4.6-6.2); White Blood Count 6.7 K/mm3 (4.4-11.0)
[2021-02-12 13:38] LABS: ALB/GLOB Ratio 0.9 RATIO (0.9-2.4); AST(SGOT) 27 U/L (15-37); Alanine Aminotransfer ALT/SGPT 58 U/L (16-61); Albumin, Serum 3.3 g/dL (3.2-5.0); Alkaline Phosphatase 184 U/L (45-117); Anion Gap 3 (5-15); BUN 28 mg/dL (7-18); BUN/Creat Ratio 19.6 RATIO (10-20); Calcium,Total 8.4 mg/dL (8.5-10.1); Chloride 107 mmol/L (98-107); Creatinine, Serum 1.43 mg/dL (0.70-1.30); EST Glomerular Filtration Rate 54 mL/min (>60); Est Glom Filt Rate - Afr Amer 65 mL/min (>60); Estimated Creatinine Clearance 58.51 ml/min; Globulin 3.6 g/dL (2.2-4.2); Glucose 333 mg/dL (74-106); Potassium 4.4 mmol/L (3.5-5.1); Protein, Total 6.9 g/dL (6.4-8.2); Sodium Level 138 mmol/L (136-145); Troponin-I HS 13.6 pg/mL (3.0-78.5)
--- NOTE | 2021-02-12 13:42 | RAD_ITS ---
STUDY: X-RAY CHEST REASON FOR EXAM: Male, 60 years old. Increasing shortness of breath. TECHNIQUE: Single AP portable view of the chest. COMPARISON: Comparison is made with prior study dated 08/22/2018. FINDINGS: EKG electrodes are seen. Patchy areas of airspace disease bilaterally with small bilateral pleural effusions. Findings are suggestive of CHF. There is borderline cardiomegaly. Normal mediastinum and kayla. Normal visualized pulmonary arteries. Normal visualized aortic arch and descending thoracic aorta. Normal visualized thoracic spine. Normal visualized ribs, clavicles, and shoulders. There is no demonstrated abnormality of the visualized soft tissue structures of the upper abdomen. RAD/Chest 1 View (Portable) IMPRESSION: Findings suggestive of CHF. Electronically Signed: Michael Allen MD at 13:55 EDT , Service support ,
[2021-02-12 13:46] LABS: BNP,B-Type NATRIURETIC PEPTIDE 247.9 pg/mL (0-100)
[2021-02-12 13:54] LABS: Lactic Acid 1.4 mmol/L (0.4-1.9)
--- NOTE | 2021-02-12 14:05 | EDS_ITS ---
HPI History of Present Illness Chief Complaint: Shortness of Breath Informant: patient Narrative Narrative: Patient is a 60-year-old male who presents to the emergency department for shortness of breath and cough. His symptoms have been present over the past week. He denies ever feeling like this before in the past. He has not had any fevers or chills. 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 He has not been vaccinated for this. He denies vomiting or diarrhea. No leg swelling or calf pain. He denies any history of COPD or asthma. He denies smoking cigarettes but does chew tobacco. He has not had any chest pain with this. He has not tried taking anything for this. [facility] Medical History (Updated 02/12/21 @ 16:[address] Steve Luo DO) Seizure Home Medications albuterol sulfate [Ventolin HFA] 2 puff INHALATION DAILY PRN 06/11/13 [History Last Taken Unknown] cholecalciferol (vitamin D3) [Vitamin D3] 500 unit PO DAILY 08/15/13 [History Last Taken 02/06/18] amlodipine 5 mg PO DAILY 02/12/21 [History Last Taken Unknown] calcium carbonate [Calcium 500] 500 mg PO DAILY 02/12/21 [History Last Taken Unknown] cinnamon bark [Cinnamon] 500 mg PO DAILY 02/12/21 [History Last Taken Unknown] insulin glargine 5 units SC QHS 02/12/21 [History Last Taken Unknown] insulin lispro [Humalog KwikPen Insulin] unit SUBCUT TIDCM 02/12/21 [History Last Taken Unknown] levetiracetam [Keppra] 500 mg PO BID 02/12/21 [History Last Taken Unknown] magnesium oxide 500 mg PO DAILY 02/12/21 [History Last Taken Unknown] turmeric-turmeric root extract cap PO 02/12/21 [History Last Taken Unknown] vitamin B complex cap 02/12/21 [History Last Taken Unknown] Allergy/AdvReac Type Severity Reaction Status Date / Time hydrocodone bitartrate AdvReac Mild HYPER Verified 02/12/21 12:52 [From Vicodin] lisinopril AdvReac Other Verified 02/12/21 12:52 Social History Smoking Status: Unknown if ever smoked ROS ROS ED Constitutional Constitutional ED: Denies chills or fever(s) Eyes Eyes: Denies change in vision ENT ENT ED: Denies epistaxis or rhinorrhea Cardiovascular Cardiovascular: Denies chest pain or palpitations Respiratory/Chest Respiratory/Chest: Reports cough and dyspnea Gastrointestinal Gastrointestinal: Denies abdominal pain, diarrhea, nausea or vomiting Genitourinary Genitourinary ED: Denies dysuria, hematuria or urinary frequency Musculoskeletal Musculoskeletal: Denies back pain or neck pain Integumentary Denies rash Neurologic Neurologic: Denies dizziness, headache(s) or weakness EXAM Physical Exam Const Vital Signs: 02/12/21 12:53 02/12/21 13:40 02/12/21 13:41 Temperature 97.8 F Temperature Source Axillary Pulse Rate 103 H 21 L Respiratory Rate 25 H 18 Respiratory Effort Respiratory Depth Respiratory Pattern Blood Pressure 212/133 H 196/98 H Blood Pressure Mean 159 130 Pulse Ox 93 99 Oxygen Delivery Method Nasal Cannula Room Air Nasal Cannula Oxygen Flow Rate (L/min) 5 4 02/12/21 14:01 02/12/21 14:02 02/12/21 15:20 Temperature Temperature Source Pulse Rate 97 85 Respiratory Rate 24 H 21 H Respiratory Effort Short of Breath Respiratory Depth Shallow Respiratory Pattern Tachypnea Blood Pressure 189/101 H 177/102 H Blood Pressure Mean 130 127 Pulse Ox 97 94 Oxygen Delivery Method Nasal Cannula Nasal Cannula Nasal Cannula Oxygen Flow Rate (L/min) 4 4 4 Positive well nourished and well developed General Appearance ED: well developed and NAD HEENT Reports normocephalic and head/scalp atraumatic Eyes PERRL and EOMs intact bilaterally Neck supple Chest Wall inspection of chest normal Resp Resp Narrative: Mild increased work of breathing. Able speak in full sentences. Tachypneic. Coarse breath sounds heard throughout. Cardio regular rate, regular rhythm and no murmurs GI normal to inspection, nondistended, normoactive bowel sounds and non-tender Palpation: soft; Negative for guarding or rebound tenderness present Extremity normal to inspection General Extremety ED: Negative for edema or tenderness General Extremity: Negative for edema Neuro oriented x3, CN's II-XII intact bilaterally and no sensory deficits noted Sensorium / Orientation: alert Motor Exam: strength 5/5 throughout Psych mental status grossly normal Skin no rashes or lesions noted MDM MDM MDM Narrative Medical decision making narrative: Patient presents the ED for cough, shortness of breath. On arrival to the emerge department he is hypoxic, tachypneic. Started on supplemental oxygen. He does not wear this at baseline. Will check x-ray, Covid swab and basic lab work. Covid rapid antigen is negative and will send off PCR. He does not have a high white blood cell count. He is mildly anemic. His creatinine is 1.43 which appears to be baseline for him. His glucose is elevated at 333. His troponin is within normal limits. BNP is elevated. His last echocardiogram did not show evidence of CHF. I believe that this is likely due to his uncontrolled hypertension. He is given a dose of labetalol, Lasix. Patient is still requiring supplemental oxygen and will be admitted for further evaluation and management. He understands and is agreeable with this plan. Lab Data Labs: Laboratory Results - last 24 hr 02/12/21 02/12/21 02/12/21 13:05 13:05 13:05 WBC 6.7 RBC 4.39 L Hgb 12.3 L Hct 38.9 L MCV 88.6 MCH 28.0 MCHC 31.6 L RDW Std Deviation 41.5 RDW Coeff of Silvia 12.7 Plt Count 280 MPV 10.4 Immature Gran % (Auto) 0.400 Neut % (Auto) 68.3 Lymph % (Auto) 22.1 [place] % (Auto) 5.9 Eos % (Auto) 2.4 Baso % (Auto) 0.9 Absolute Neuts (auto) 4.6 Absolute Lymphs (auto) 1.49 Nucleated RBC % 0 Sodium 138 Potassium 4.4 Chloride 107 Carbon Dioxide 28.0 Anion Gap 3 L BUN 28 H Creatinine 1.43 H Estim Creat Clear Calc 58.51 Est GFR (MDRD) Af Amer 65 Est GFR (MDRD) Non-Af 54 L BUN/Creatinine Ratio 19.6 Glucose 333 H Lactic Acid 1.4 Calcium 8.4 L Total Bilirubin 0.40 AST 27 ALT 58 Alkaline Phosphatase 184 H Troponin I High Sens 13.6 B-Natriuretic Peptide Total Protein 6.9 Albumin 3.3 Globulin 3.6 Albumin/Globulin Ratio 0.9 02/12/21 13:05 WBC RBC Hgb Hct MCV MCH MCHC RDW Std Deviation RDW Coeff of Silvia Plt Count MPV Immature Gran % (Auto) Neut % (Auto) Lymph % (Auto) [place] % (Auto) Eos % (Auto) Baso % (Auto) Absolute Neuts (auto) Absolute Lymphs (auto) Nucleated RBC % Sodium Potassium Chloride Carbon Dioxide Anion Gap BUN Creatinine Estim Creat Clear Calc Est GFR (MDRD) Af Amer Est GFR (MDRD) Non-Af BUN/Creatinine Ratio Glucose Lactic Acid Calcium Total Bilirubin AST ALT Alkaline Phosphatase Troponin I High Sens B-Natriuretic Peptide 247.9 H Total Protein Albumin Globulin Albumin/Globulin Ratio Radiography Diagnostic Testing: Radiology Impression Chest X-Ray 02/12/21 13:42 IMPRESSION: Findings suggestive of CHF. Electronically Signed: Michael Allen MD at 13:55 EDT , Service support , Discharge Plan Dx/Rx/DC Orders Clinical Impression: Hypertensive urgency, Pulmonary vascular congestion, Hypoxia, Hyperglycemia Disposition Disposition: Acute Care Hospital [facility] Discharge Date/Time: 02/12/21 16:37
[2021-02-12] MEDS: Labetalol 100 MG/20 ML Vial 40 MG IV (14:31)
[2021-02-12] MEDS: Furosemide 40 MG/4 ML Vial IV ×2 (14:33→17:42)
--- NOTE | 2021-02-12 16:40 | HP.PCM.HOS_ITS ---
HPI - General General Date of Admission: 02/12/21 Date of Service: 02/12/21 Chief Complaint: shortness of breath HPI Narrative JAMES RICO, is a 60 M who presents with progressive dyspnea. The past couple weeks, patient has been increasingly more short of breath, having orthopnea and lower extremity edema. Dyspnea on exertion became too intense for him and so he presented to the emergency room. Blood pressure was noted to be 212/133 when he presented. He had a chest x-ray that was consistent with CHF. Patient denies any personal history of cardiac disease or heart failure. In the emergency room, he received 40 mg of IV furosemide and a 40 mg of IV labetalol. The hospital service contacted for admission in regards to further management of blood pressure and CHF. 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 He has not been vaccinated. [facility] Medical History Brain mass HTN (hypertension) Seizure Home Medications albuterol sulfate [Ventolin HFA] 2 puff INHALATION DAILY PRN 06/11/13 [History Last Taken Unknown] cholecalciferol (vitamin D3) [Vitamin D3] 500 unit PO DAILY 08/15/13 [History Last Taken 02/06/18] amlodipine 5 mg PO DAILY 02/12/21 [History Last Taken Unknown] calcium carbonate [Calcium 500] 500 mg PO DAILY 02/12/21 [History Last Taken Unknown] cinnamon bark [Cinnamon] 500 mg PO DAILY 02/12/21 [History Last Taken Unknown] insulin glargine 5 units SC QHS 02/12/21 [History Last Taken Unknown] insulin lispro [Humalog KwikPen Insulin] unit SUBCUT TIDCM 02/12/21 [History Last Taken Unknown] levetiracetam [Keppra] 500 mg PO BID 02/12/21 [History Last Taken Unknown] magnesium oxide 500 mg PO DAILY 02/12/21 [History Last Taken Unknown] turmeric-turmeric root extract cap PO 02/12/21 [History Last Taken Unknown] vitamin B complex cap 02/12/21 [History Last Taken Unknown] Allergy/AdvReac Type Severity Reaction Status Date / Time hydrocodone bitartrate AdvReac Mild HYPER Verified 02/12/21 12:52 [From Vicodin] lisinopril AdvReac Other Verified 02/12/21 12:52 Family History (Updated 02/12/21 @ 16:[address] Arden Ibrahim DO) Other Heart disease Social History (Updated 02/12/21 @ 16:[address] Arden Ibrahim DO) Smoking Status: Never smoker Smokeless tobacco user: chewing tobacco ROS ROS Narrative All review of systems were negative except as mentioned above in the history of present illness and the other review of systems. Constitutional Constitutional: Denies chills or fever(s) Eyes Eyes: Reports blurry vision Cardiovascular Cardiovascular: Reports chest pain and palpitations Respiratory/Chest Respiratory/Chest: Reports cough and dyspnea Gastrointestinal Gastrointestinal: Reports abdominal pain and nausea; Denies vomiting Vital Signs Vital Signs Vital Signs: 02/12/21 12:53 02/12/21 13:40 02/12/21 13:41 Temperature 36.6 C Temperature Source Axillary Pulse Rate 103 H 21 L Respiratory Rate 25 H 18 Respiratory Effort Respiratory Depth Respiratory Pattern Blood Pressure 212/133 H 196/98 H Blood Pressure Mean 159 130 Pulse Ox 93 99 Oxygen Delivery Method Nasal Cannula Room Air Nasal Cannula Oxygen Flow Rate (L/min) 5 4 02/12/21 14:01 02/12/21 14:02 02/12/21 15:20 Temperature Temperature Source Pulse Rate 97 85 Respiratory Rate 24 H 21 H Respiratory Effort Short of Breath Respiratory Depth Shallow Respiratory Pattern Tachypnea Blood Pressure 189/101 H 177/102 H Blood Pressure Mean 130 127 Pulse Ox 97 94 Oxygen Delivery Method Nasal Cannula Nasal Cannula Nasal Cannula Oxygen Flow Rate (L/min) 4 4 4 02/12/21 16:21 Temperature 36.3 C L Temperature Source Temporal Pulse Rate 87 Respiratory Rate 20 H Respiratory Effort Respiratory Depth Respiratory Pattern Blood Pressure 186/118 H Blood Pressure Mean 140 Pulse Ox 93 Oxygen Delivery Method Nasal Cannula Oxygen Flow Rate (L/min) 4 Weight Weight: 94.4 kg Body Mass Index (BMI) 29.0 Physical Exam Const alert and no apparent distress Constitutional Narrative: No respiratory distress. No conversational dyspnea General Appearance: cooperative HEENT normocephalic and hearing grossly normal bilaterally Eyes Eyes Narrative: No icterus Resp normal respiratory effort Resp Narrative: Faint crackles in the bases Cardio regular rate, regular rhythm, S1 normal heart sound and S2 normal heart sound GI normal to inspection, nondistended, normoactive bowel sounds, soft to palpation, non-tender and non-distended Extremity Extremity Narrative: 2+ lower extremity edema. No calf tenderness. Skin no rashes or lesions noted Neuro Sensorium / Orientation: awake and alert Psych affect normal Results Medical Records Data Attestation: I reviewed the patient's medical records Medical records narrative: Reviewed medical records from [facility] from hospitalization back in June. Plan is for the patient to follow-up with neurosurgery. Lab / Micro Data Attestation: I reviewed the patient's lab results. Result Diagrams: 02/12/21 13:05 02/12/21 13:05 Labs: Laboratory Results - last 24 hr 02/12/21 02/12/21 02/12/21 13:05 13:05 13:05 WBC 6.7 RBC 4.39 L Hgb 12.3 L Hct 38.9 L MCV 88.6 MCH 28.0 MCHC 31.6 L RDW Std Deviation 41.5 RDW Coeff of Silvia 12.7 Plt Count 280 MPV 10.4 Immature Gran % (Auto) 0.400 Neut % (Auto) 68.3 Lymph % (Auto) 22.1 [place] % (Auto) 5.9 Eos % (Auto) 2.4 Baso % (Auto) 0.9 Absolute Neuts (auto) 4.6 Absolute Lymphs (auto) 1.49 Nucleated RBC % 0 Sodium 138 Potassium 4.4 Chloride 107 Carbon Dioxide 28.0 Anion Gap 3 L BUN 28 H Creatinine 1.43 H Estim Creat Clear Calc 58.51 Est GFR (MDRD) Af Amer 65 Est GFR (MDRD) Non-Af 54 L BUN/Creatinine Ratio 19.6 Glucose 333 H Lactic Acid 1.4 Calcium 8.4 L Total Bilirubin 0.40 AST 27 ALT 58 Alkaline Phosphatase 184 H Troponin I High Sens 13.6 B-Natriuretic Peptide Total Protein 6.9 Albumin 3.3 Globulin 3.6 Albumin/Globulin Ratio 0.9 02/12/21 13:05 WBC RBC Hgb Hct MCV MCH MCHC RDW Std Deviation RDW Coeff of Silvia Plt Count MPV Immature Gran % (Auto) Neut % (Auto) Lymph % (Auto) [place] % (Auto) Eos % (Auto) Baso % (Auto) Absolute Neuts (auto) Absolute Lymphs (auto) Nucleated RBC % Sodium Potassium Chloride Carbon Dioxide Anion Gap BUN Creatinine Estim Creat Clear Calc Est GFR (MDRD) Af Amer Est GFR (MDRD) Non-Af BUN/Creatinine Ratio Glucose Lactic Acid Calcium Total Bilirubin AST ALT Alkaline Phosphatase Troponin I High Sens B-Natriuretic Peptide 247.9 H Total Protein Albumin Globulin Albumin/Globulin Ratio Micro: Microbiology 02/12/21 13:05 SARS-CoV-2 Antigen (Rapid) - Final Mucosa - Nose EKG Initial EKG: Attestation: I personally reviewed and interpreted this EKG as follows: Prior EKG tracings: available for review EKG Rhythm Intrepretation: Sinus Rhythm Radiology Impression Chest X-Ray 02/12/21 13:42 IMPRESSION: Findings suggestive of CHF. Electronically Signed: Michael Allen MD at 13:55 EDT , Service support , Assessment & Plan Assessment/Plan (1) CHF exacerbation: QUALIFIERS: Heart failure type: unspecified Qualified Code(s): I50.9 - Heart failure, unspecified (2) Hypertensive emergency: PLAN: 1. Acute CHF exacerbation Unlikely Covid but COVID-19 PCR currently pending Plan: * Continue with diuresis * Check echocardiogram * Fluid restriction 1500 cc/day * Daily weights * No JETHRO inhibitor nor angiotensin receptor deb given noted allergy to lisinopril. We will utilize hydralazine and isosorbide * Hold off on beta-blockers at this time given acute CHF 2. 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 Concern for compliance Plan: * Continue with amlodipine * No JETHRO inhibitor nor angiotensin receptor deb given allergy to lisinopril 3. Acute hypoxic respiratory failure Secondary to CHF doubt Covid but PCR pending Plan: * Treat the underlying process * Wean oxygen as tolerated * May need amatory pulse ox prior to discharge 4. Seizure Patient had a seizure back in June and has been seizure-free since Patient had a brain mass noted at that time. He declined intervention back in June but states that he is followed up and repeat imaging is apparently not showing that area of concern. Patient states that he has been released back to driving by his neurologist. Plan: Continue with the levetiracetam 5. Diabetes mellitus type 2 * Continue with insulin glargine * Sliding scale insulin 6. VTE prophylaxis with low molecular weight heparin 7. Medical maintenance: Patient has not been vaccinated against COVID-19. Patient stated that when he went and visited [facility] last year that [place] stamped his card. One of his [place] tell me that he was incorrectly Rohit which vaccinated but I told the patient that he knows he is not vaccinated and I encouraged him to get vaccinated. I told him that we cannot do so in the hospital but he will need to have that arranged as outpatient. He thinks he may have contracted COVID-19 when his sister was sick after getting the COVID-19 vaccine. I told him even if he did have COVID-19 that he should still be vaccinated. Charges/Coding Visit Charges Inpatient E&M: 95157 Init Hosp L3
--- NOTE | 2021-02-12 17:09 | ECHOD_ITS ---
Version 2 Reason For Study: CHF Procedure This was a 2D Doppler, Color Flow transthoracic echocardiogram. Exam performed portable in patient room. Left Ventricle Normal LV size. Mild concentric left ventricular hypertrophy. Left ventricular systolic function is normal. The estimated ejection fraction is 60 %. Stage 2 diastolic dysfunction. No regional wall motion abnormalities noted. Right Ventricle Normal RV size. Normal systolic function. Atria The left atrium is mildly enlarged. Normal right atrium. Mitral Valve Bileaflet diffuse mitral valve thickening. Mild focal mitral valve calcification of the anterior leaflet. Mild-Moderate (1-2+) eccentric mitral valve insufficiency. Tricuspid Valve Normal tricuspid valve. Mild tricuspid valve insufficiency. Pulmonary artery systolic pressure is 30 mmHg. Aortic Valve Trisinus/trileaflet aortic valve. Mild focal aortic valve calcification. Pulmonic Valve Normal pulmonic valve. Great Vessels Normal aortic root. The pulmonary artery is normal size. Normal inferior vena cava. Pericardium/Pleural No pericardial effusion. Moderate size right pleural effusion. MMode/2D Measurements & Calculations LVIDd: 4.3 cm IVSd: 1.3 cm Ao root diam: 2.9 cm LVIDs: 2.9 cm LVPWd: 1.2 cm RVDd: 3.8 cm FS: 33.4 % LAV(MOD-bp): 56.0 ml LVAd ap4: 27.8 cm2 SV(MOD-sp4): 55.2 ml LAV(MOD-bp) Indexed: 26.6 ml/m2 LVLd ap4: 7.8 cm LAV(MOD-sp2): 38.2 ml EDV(MOD-sp4): 81.8 ml LAV(MOD-sp4): 68.0 ml EDV(sp4-el): 84.5 ml LVAs ap4: 13.6 cm2 LVLs ap4: 6.1 cm ESV(MOD-sp4): 26.6 ml ESV(sp4-el): 26.0 ml EF(MOD-sp4): 67.5 % EF(sp4-el): 69.3 % SV(sp4-el): 58.5 ml LA A4 area: 21.7 cm2 LA dimension(2D): 4.3 cm RA A4 area: 12.9 cm2 Doppler Measurements & Calculations MV E max fermin: 131.7 cm/sec Lat Peak E' Fermin: 7.8 cm/sec Med Peak E' Fermin: 7.6 cm/sec MV A max fermin: 77.0 cm/sec E/E' lat: 16.9 E/E' med: 17.3 MV E/A: 1.7 Ao V2 max: 167.4 cm/sec LV V1 max: 83.8 cm/sec PA V2 max: 97.1 cm/sec Ao max P.2 mmHg LV V1 max P.8 mmHg Ao V2 mean: 114.4 cm/sec Ao mean P.7 mmHg Ao V2 VTI: 29.8 cm TR max fermin: 263.7 cm/sec TR max P.8 mmHg ECHO/Echo Complete Interpretation Summary Normal LV size. Mild concentric left ventricular hypertrophy. Left ventricular systolic function is normal. The estimated ejection fraction is 60 %. Stage 2 diastolic dysfunction. Moderate size right pleural effusion. Ordering Physician: Arden Ibrahim Referring Physician: Amish Han Performed By: Una Vaughn, WILFRIDO, RVT
[2021-02-12] MEDS: 0.9% Saline Lock 10 ML Syringe IV ×2 (17:42→21:18)
[2021-02-12 19:54] LABS: Troponin-I HS 12.2 pg/mL (3.0-78.5)
[2021-02-12] MEDS: hydrALAZINE 25 MG Tablet PO (21:16)
[2021-02-12] MEDS: Isosorbide DN 10 MG Tablet PO (21:16)
[2021-02-12] MEDS: guaiFENesin 10 ML UDC (200MG/10ML) PO (21:18)
[2021-02-12 21:35] LABS: Bedside Glucose 370 mg/dL (70-110)
[2021-02-13] VITALS (15 sets, daily range): BP systolic 127–162; BP diastolic 77–97; PULSE 74–98; RESP 18–20; TEMP 36.7–37; O2SAT 92–97
[2021-02-13 00:11] LABS: Troponin-I HS 12.9 pg/mL (3.0-78.5)
[2021-02-13] MEDS: Isosorbide DN 10 MG Tablet PO ×3 (05:19→22:05)
[2021-02-13] MEDS: hydrALAZINE 25 MG Tablet PO ×3 (05:19→22:05)
[2021-02-13 05:23] LABS: Absolute Lymphocyte Count 1.52 X10^3/uL (0.83-4.51); Absolute Neutrophil Count 4.9 X10^3/uL (2.0-7.7); Basophil# 0.05 X10^3/uL; Basophil% 0.7 % (0-1); Eosinophil# 0.23 X10^3/uL; Eosinophils% 3.2 % (0-5); Hematocrit 33.8 % (40-54); Hemoglobin 10.8 g/dL (13.0-16.5); Lymphocyte # 1.52 X10^3/ul (0.83-4.51); Lymphocyte % 20.9 % (19-41); Mean Corpuscular Hgb 28.2 pg (27.0-32.0); Mean Corpuscular Volume 88.3 fL (80-94); Mean Platelet Vol. 10.3 fl (6.2-12.0); Monocyte% 6.9 % (0-10); NRBC Flagged by Analyzer 0 % (0-5); Neutrophil # 4.94 X10^3/uL (2.7-7.7); Platelet Count 277 K/mm3 (150-450); RBC Distribution Width CV 12.6 % (11.6-14.6); RBC Distribution Width SD 40.5 fl (35.1-43.9); Red Blood Count 3.83 M/mm3 (4.6-6.2); White Blood Count 7.3 K/mm3 (4.4-11.0)
[2021-02-13 05:51] LABS: Anion Gap 5 (5-15); BUN 34 mg/dL (7-18); BUN/Creat Ratio 22.7 RATIO (10-20); Calcium,Total 8.3 mg/dL (8.5-10.1); Chloride 106 mmol/L (98-107); Cholesterol 183 mg/dL (200); EST Glomerular Filtration Rate 51 mL/min (>60); Est Glom Filt Rate - Afr Amer 61 mL/min (>60); Estimated Creatinine Clearance 55.78 ml/min; Glucose 350 mg/dL (74-106); High Density Lipoprotein 40 mg/dL; Potassium 4.4 mmol/L (3.5-5.1); Sodium Level 140 mmol/L (136-145); Thyroid Stim Hormone (TSH) 1.78 uIU/mL (0.358-3.74); Triglycerides 139 mg/dL; Very Low Density Lipoprotein 28 mg/dL (5-40)
[2021-02-13] MEDS: Insulin Lispro 100 UNIT/ML INSULN.PEN SC ×3 (06:46→16:37)
[2021-02-13 06:56] LABS: Bedside Glucose 344 mg/dL (70-110)
[2021-02-13] MEDS: amLODIPine 5 MG Tablet PO (09:59)
[2021-02-13] MEDS: Enoxaparin 40 MG/0.4 ML Syringe SC (09:59)
[2021-02-13] MEDS: Calcium (Elemental) 500 MG Tablet PO (09:59)
[2021-02-13] MEDS: Furosemide 40 MG/4 ML Vial IV ×2 (09:59→16:36)
--- NOTE | 2021-02-13 11:31 | PN.HOSP_ITS ---
Documented by User: Amish LAMBERT 02/13/21 12:05 Subjective Subjective Patient is a 60-year-old male comfortably resting in bed, alert and oriented x3. Patient reports improvement in regards to her shortness of breath from admission. Denies chest pain, palpitations, hemoptysis, sputum production, fever, chills, N/V/D/D. Objective Data Objective Data Vital Signs: Vital Signs Temp Pulse Resp BP Pulse Ox 98.5 F 89 18 141/83 H 97 02/13/21 10:07 02/13/21 10:36 02/13/21 10:07 02/13/21 10:07 02/13/21 10:14 Oxygen Flow Rate (L/min) 4 Oxygen Delivery Method Nasal Cannula Weight: 200 lb 13.458 oz Body Mass Index (BMI) 28.0 Intake & Output: Intake and Output for Last 24 Hours 02/11/21 02/12/21 02/13/21 23:59 23:59 23:59 Intake Total 740 / 740 300 / 300 Output Total 1150 / 1150 Balance -410 / -410 300 / 300 Lab / Micro Data Result Diagrams: 02/13/21 05:12 02/13/21 05:12 Labs: Laboratory Results - last 24 hr 02/12/21 02/12/21 02/12/21 13:05 13:05 13:05 WBC 6.7 RBC 4.39 L Hgb 12.3 L Hct 38.9 L MCV 88.6 MCH 28.0 MCHC 31.6 L RDW Std Deviation 41.5 RDW Coeff of Silvia 12.7 Plt Count 280 MPV 10.4 Immature Gran % (Auto) 0.400 Neut % (Auto) 68.3 Lymph % (Auto) 22.1 [place] % (Auto) 5.9 Eos % (Auto) 2.4 Baso % (Auto) 0.9 Absolute Neuts (auto) 4.6 Absolute Lymphs (auto) 1.49 Nucleated RBC % 0 Sodium 138 Potassium 4.4 Chloride 107 Carbon Dioxide 28.0 Anion Gap 3 L BUN 28 H Creatinine 1.43 H Estim Creat Clear Calc 58.51 Est GFR (MDRD) Af Amer 65 Est GFR (MDRD) Non-Af 54 L BUN/Creatinine Ratio 19.6 Glucose 333 H Lactic Acid 1.4 Calcium 8.4 L Total Bilirubin 0.40 AST 27 ALT 58 Alkaline Phosphatase 184 H Troponin I High Sens 13.6 B-Natriuretic Peptide Total Protein 6.9 Albumin 3.3 Globulin 3.6 Albumin/Globulin Ratio 0.9 Triglycerides Cholesterol LDL Cholesterol VLDL Cholesterol HDL Cholesterol TSH COVID-19 ([facility]) POC Glucose 02/12/21 02/12/21 02/12/21 13:05 14:29 19:15 WBC RBC Hgb Hct MCV MCH MCHC RDW Std Deviation RDW Coeff of Silvia Plt Count MPV Immature Gran % (Auto) Neut % (Auto) Lymph % (Auto) [place] % (Auto) Eos % (Auto) Baso % (Auto) Absolute Neuts (auto) Absolute Lymphs (auto) Nucleated RBC % Sodium Potassium Chloride Carbon Dioxide Anion Gap BUN Creatinine Estim Creat Clear Calc Est GFR (MDRD) Af Amer Est GFR (MDRD) Non-Af BUN/Creatinine Ratio Glucose Lactic Acid Calcium Total Bilirubin AST ALT Alkaline Phosphatase Troponin I High Sens 12.2 B-Natriuretic Peptide 247.9 H Total Protein Albumin Globulin Albumin/Globulin Ratio Triglycerides Cholesterol LDL Cholesterol VLDL Cholesterol HDL Cholesterol TSH COVID-19 ([facility]) Not Detected POC Glucose 02/12/21 02/12/21 02/13/21 21:07 23:20 05:12 WBC 7.3 RBC 3.83 L Hgb 10.8 L Hct 33.8 L MCV 88.3 MCH 28.2 MCHC 32.0 RDW Std Deviation 40.5 RDW Coeff of Siliva 12.6 Plt Count 277 MPV 10.3 Immature Gran % (Auto) 0.300 Neut % (Auto) 68.0 Lymph % (Auto) 20.9 [place] % (Auto) 6.9 Eos % (Auto) 3.2 Baso % (Auto) 0.7 Absolute Neuts (auto) 4.9 Absolute Lymphs (auto) 1.52 Nucleated RBC % 0 Sodium Potassium Chloride Carbon Dioxide Anion Gap BUN Creatinine Estim Creat Clear Calc Est GFR (MDRD) Af Amer Est GFR (MDRD) Non-Af BUN/Creatinine Ratio Glucose Lactic Acid Calcium Total Bilirubin AST ALT Alkaline Phosphatase Troponin I High Sens 12.9 B-Natriuretic Peptide Total Protein Albumin Globulin Albumin/Globulin Ratio Triglycerides Cholesterol LDL Cholesterol VLDL Cholesterol HDL Cholesterol TSH COVID-19 ([facility]) POC Glucose 370 H 02/13/21 02/13/21 05:12 06:42 WBC RBC Hgb Hct MCV MCH MCHC RDW Std Deviation RDW Coeff of Silvia Plt Count MPV Immature Gran % (Auto) Neut % (Auto) Lymph % (Auto) [place] % (Auto) Eos % (Auto) Baso % (Auto) Absolute Neuts (auto) Absolute Lymphs (auto) Nucleated RBC % Sodium 140 Potassium 4.4 Chloride 106 Carbon Dioxide 29.0 Anion Gap 5 BUN 34 H Creatinine 1.50 H Estim Creat Clear Calc 55.78 Est GFR (MDRD) Af Amer 61 Est GFR (MDRD) Non-Af 51 L BUN/Creatinine Ratio 22.7 H Glucose 350 H Lactic Acid Calcium 8.3 L Total Bilirubin AST ALT Alkaline Phosphatase Troponin I High Sens B-Natriuretic Peptide Total Protein Albumin Globulin Albumin/Globulin Ratio Triglycerides 139 Cholesterol 183 LDL Cholesterol 115 VLDL Cholesterol 28 HDL Cholesterol 40 TSH 1.78 COVID-19 ([facility]) POC Glucose 344 H Micro: Microbiology 02/12/21 13:05 Mucosa - Nose SARS-CoV-2 Antigen (Rapid) - Final Radiography Diagnostic Testing: Radiology Impression Chest X-Ray 02/12/21 13:42 IMPRESSION: Findings suggestive of CHF. Electronically Signed: Michael Allen MD at 13:55 EDT , Service support , Physical Exam Const alert, oriented x3 and no apparent distress HEENT head/scalp atraumatic and moist oral mucous membranes Head and Scalp: normocephalic Eyes EOMs intact bilaterally Neck no lymphadenopathy, supple and no JVD Resp normal respiratory effort, no retractions and no use of accessory muscles Cardio regular rate, regular rhythm, no murmurs and no JVD GI normal to inspection, nondistended, normoactive bowel sounds, soft to palpation and non-tender Extremity normal to inspection, full ROM and no clubbing, cyanosis or edema Skin no rashes or lesions noted, no wounds and skin turgor normal Neuro CN's II-XII intact bilaterally Psych affect normal Assessment & Plan Assessment/Plan (1) CHF exacerbation: QUALIFIERS: Heart failure type: unspecified Qualified Code(s): I50.9 - Heart failure, unspecified (2) Hypertensive emergency: PLAN: Day 2: See subjective. Discharge planning: No home health care needs identified, patient to return home on discharge 1) acute CHF exacerbation New echocardiogram ordered/pending. Echocardiogram from 06/27 demonstrated normal LV systolic function, an estimated EF of 55% and RVSP of 36 mmHg and ind eterminate diastolic function. Home medication list does not include beta- deb, JETHRO/ARB or Lasix. Patient not a candidate for JETHRO/ARB therapy due to allergy. Patient is not on oxygen at home. Currently satting 97% on 4 L via nasal cannula. Chest x-ray demonstrated mild cardiomegaly and bilateral pleural effusions. Plan; continue IV Lasix twice daily, continue oxygen per protocol, echocardiogram results pending. 2) acute hypoxic respiratory failure Likely secondary to #1. Rapid Covid negative, patient has not been vaccinated for COVID-19. Plan; as above. 3) hypertensive emergency with end-stage organ disease with CHF Observed on admission, currently 141/83. Creatinine currently 1.5, up from admission. Suspect it might be related to poor compliance with home prescription of amlodipine. Plan; continue with amlodipine home prescription, continue hydralazine 25 mg p.o. 3 times daily, continue isosorbide dinitrate p.o. 3 times daily. 4) seizure Continue Keppra. 5) DM 2 POC glucose 344, 370 on admission. Continue with basal and sliding scale insulin, hemoglobin A1c ordered. DVT prophylaxis - Lovenox Patient seen by Amish Chery PA-C, under the supervision of Dr. Ibrahim. Documented by User: Dr. Arden Ibrahim, 02/13/21 12:29 Subjective Subjective Breathing better Objective Data Lab / Micro Data Result Diagrams: 02/13/21 05:12 02/13/21 05:12 Physical Exam Const Exam Limitations: no limitations Resp normal respiratory effort, no retractions and no use of accessory muscles Resp Narrative: Bibasilar crackles Cardio regular rate, regular rhythm, S1 normal heart sound and S2 normal heart sound GI normal to inspection, nondistended, normoactive bowel sounds, non-tender and non-distended Extremity Extremity Narrative: Trace lower extremity edema Assessment & Plan Assessment/Plan (1) CHF exacerbation: QUALIFIERS: Heart failure type: unspecified Qualified Code(s): I50.9 - Heart failure, unspecified PLAN: 1. Acute HFpEF exacerbation COVID 19 PCR negative EF 55% Plan: Continue with diuresis Fluid restriction 1500 cc/day Daily weights No JETHRO inhibitor nor angiotensin receptor deb given noted allergy (angioedem) to lisinopril. We will utilize hydralazine and isosorbide Hold off on beta-blockers at this time given acute CHF 2. Hypertensive emergency with end-stage organ disease with CHF improved Patient already on amlodipine 5 mg daily. Concern for compliance Plan: Continue with amlodipine No JETHRO inhibitor nor angiotensin receptor deb given allergy (angioedem) to lisinopril 3. Acute hypoxic respiratory failure Secondary to CHF Plan: Treat the underlying process Wean oxygen as tolerated May need amatory pulse ox prior to discharge 4. Seizure Patient had a seizure back in June and has been seizure-free since Patient had a brain mass noted at that time. He declined intervention back in June but states that he is followed up and repeat imaging is apparently not showing that area of concern. Patient states that he has been released back to driving by his neurologist. Plan: Continue with the levetiracetam 5. Diabetes mellitus type 2 Continue with insulin glargine Sliding scale insulin 6. VTE prophylaxis with low molecular weight heparin Charges/Coding Visit Charges Inpatient E&M: 63529 Subs Hosp L2
--- NOTE | 2021-02-13 12:10 | CASEMGMT ---
RN REINA Face to Face with patient for initial transition planning/care coordination assessment. RN CM introduced self and role at [facility]. Patient lying in bed, alert and oriented. Patient willing to participate in assessment and is able to answer all questions appropriately. Care providers, pharmacy, and demographics verified. Patient wishes to discharge home, denies need for home health at this time. Patient states he has no further needs or concerns at this time. CM to follow for discharge planning needs that may arise. PCP: [facility] Specialists: none Preferred Pharmacy: [facility] Insurance: [facility] Prescription Benefit: yes Living Will/HPOA: living will only LNOK: sister, 12yo son Living Arrangements: Patient lives with 12 yo son who is staying with sister. Patient is independent and able to ambulate stairs to 2nd floor apartment. Transportation: self, friend DME/HHC: Patient states he has cane and grab bars at home. Patient currently requiring oxygen, discussed preferences for DME and agreeable to [employer]. Disposition Plan: Patient to discharge home with follow-up plans in place. Cathy HAGEN, RN, CM
[2021-02-13 12:16] LABS: Bedside Glucose 302 mg/dL (70-110)
[2021-02-13 13:25] LABS: Hemoglobin A1c 9.7 % (3.8-5.6)
--- NOTE | 2021-02-13 13:44 | CASEMGMT ---
Green sheet on chart for home oxygen. Aspen MARTINEZ CM
[2021-02-13] MEDS: 0.9% Saline Lock 10 ML Syringe IV (16:36)
[2021-02-13] MEDS: Acetaminophen 325 MG Tablet 650 MG PO ×2 (16:43→23:15)
[2021-02-13 16:56] LABS: Bedside Glucose 217 mg/dL (70-110)
[2021-02-13 22:15] LABS: Bedside Glucose 235 mg/dL (70-110)
[2021-02-14] VITALS (11 sets, daily range): BP systolic 144–189; BP diastolic 85–110; PULSE 86–99; RESP 14–18; TEMP 36.2–36.8; O2SAT 86–96
[2021-02-14] MEDS: guaiFENesin 10 ML UDC (200MG/10ML) PO (00:25)
[2021-02-14] MEDS: Insulin Lispro 100 UNIT/ML INSULN.PEN SC (06:21)
[2021-02-14] MEDS: hydrALAZINE 25 MG Tablet PO ×2 (06:21→13:46)
[2021-02-14] MEDS: Isosorbide DN 10 MG Tablet PO ×2 (06:21→13:46)
[2021-02-14 06:40] LABS: Absolute Lymphocyte Count 1.91 X10^3/uL (0.83-4.51); Absolute Neutrophil Count 4.4 X10^3/uL (2.0-7.7); Basophil# 0.05 X10^3/uL; Basophil% 0.7 % (0-1); Eosinophil# 0.29 X10^3/uL; Eosinophils% 4.1 % (0-5); Hematocrit 34.6 % (40-54); Hemoglobin 11.1 g/dL (13.0-16.5); Lymphocyte # 1.91 X10^3/ul (0.83-4.51); Lymphocyte % 26.8 % (19-41); Mean Corp Hgb Conc 32.1 g/dL (32-36); Mean Corpuscular Hgb 27.9 pg (27.0-32.0); Mean Corpuscular Volume 86.9 fL (80-94); Mean Platelet Vol. 10.1 fl (6.2-12.0); Monocyte# 0.51 X10^3/uL; Monocyte% 7.2 % (0-10); NRBC Flagged by Analyzer 0 % (0-5); Neutrophil # 4.35 X10^3/uL (2.7-7.7); Neutrophil % 61.1 % (47-70); Platelet Count 266 K/mm3 (150-450); RBC Distribution Width CV 12.4 % (11.6-14.6); RBC Distribution Width SD 39.8 fl (35.1-43.9); Red Blood Count 3.98 M/mm3 (4.6-6.2); White Blood Count 7.1 K/mm3 (4.4-11.0)
[2021-02-14 06:40] LABS: Bedside Glucose 286 mg/dL (70-110)
[2021-02-14 07:07] LABS: Anion Gap 6 (5-15); BUN 36 mg/dL (7-18); BUN/Creat Ratio 24.7 RATIO (10-20); Calcium,Total 8.5 mg/dL (8.5-10.1); Chloride 106 mmol/L (98-107); Creatinine, Serum 1.46 mg/dL (0.70-1.30); EST Glomerular Filtration Rate 52 mL/min (>60); Est Glom Filt Rate - Afr Amer 63 mL/min (>60); Estimated Creatinine Clearance 57.31 ml/min; Glucose 269 mg/dL (74-106); Potassium 3.9 mmol/L (3.5-5.1); Sodium Level 140 mmol/L (136-145)
[2021-02-14] MEDS: Calcium (Elemental) 500 MG Tablet PO (10:57)
[2021-02-14] MEDS: amLODIPine 5 MG Tablet PO (10:57)
[2021-02-14] MEDS: Furosemide 40 MG/4 ML Vial IV (10:59)
--- NOTE | 2021-02-14 11:40 | PCM.DC ---
Discharge Instructions Diet Discharge Diet: No restrictions Activity Discharge Activity: Return to Normal Activity Follow Up Care Please Follow Up With: Primary care provider When: Within the next two weeks. Test Results: Test results from this visit will be discussed in further detail at your follow-up appointment, if applicable. Discharge Plan Admission Admit Date/Time: 02/12/21 16:40 Primary Reason for Your Visit: Shortness of breath. Attending Provider: Arden Ibrahim Primary Care Provider: Amish Han Instructions Additional Instructions / Restrictions: Patient qualifies for home oxygen; Ambulatory pulse ox 87%. Discharge Orders/Prescriptions Prescriptions: New amlodipine [Norvasc] 5 mg tablet 5 mg PO DAILY Qty: 30 RF: 0 Continued albuterol sulfate [Ventolin HFA] 1 INHALER inhaler 2 puff inhalation DAILY PRN (Reason: Bronchospasm) RF: 0 cholecalciferol (vitamin D3) [Vitamin D3] 1,000 UNIT capsule 500 unit PO DAILY RF: 0 levetiracetam [Keppra] 500 mg Tablet 500 mg PO BID RF: 0 calcium carbonate [Calcium 500] 500 mg calcium (1,250 mg) tablet 500 mg PO DAILY RF: 0 vitamin B complex Capsule 1 cap PO DAILY RF: 0 insulin lispro [Humalog KwikPen Insulin] 100 unit/mL Insulin Pen 5 - 15 unit SUBCUT TIDCM RF: 0 cinnamon bark [Cinnamon] 500 mg capsule 500 mg PO DAILY RF: 0 turmeric-turmeric root extract 450-50 mg capsule 2 cap PO DAILY RF: 0 magnesium oxide 200 mg magnesium tablet 500 mg PO DAILY RF: 0 insulin glargine 100 UNITS/ML insulin pen 5 - 10 units SC QHS RF: 0 Referrals / Follow Up: Amish Han MD [Primary Care Provider] - Within 2 Weeks Disposition Disposition (needs filled in before D/C Order can be placed): Home, Self Care
[2021-02-14 11:45] LABS: Bedside Glucose 278 mg/dL (70-110)
--- NOTE | 2021-02-14 12:11 | DS.PCM_ITS ---
Documented by User: Amish LAMBERT 02/14/21 14:57 Providers Date of Admission: 02/12/21 Primary Care Physician: Dr. Amish Han MD Reason For Visit: HYPOXIA Diagnosis Discharge Diagnosis (1) CHF exacerbation: Status: Chronic Code(s): I50.9 - Heart failure, unspecified Qualifiers: Heart failure type: unspecified Qualified Code(s): I50.9 - Heart failure, unspecified Medications at Discharge Home Medications albuterol sulfate [Ventolin HFA] 2 puff INHALATION DAILY PRN 06/11/13 cholecalciferol (vitamin D3) [Vitamin D3] 500 unit PO DAILY 08/15/13 calcium carbonate [Calcium 500] 500 mg PO DAILY 02/12/21 cinnamon bark [Cinnamon] 500 mg PO DAILY 02/12/21 insulin glargine 5 - 10 units SC QHS 02/12/21 insulin lispro [Humalog KwikPen Insulin] 5 - 15 unit SUBCUT TIDCM 02/12/21 levetiracetam [Keppra] 500 mg PO BID 02/12/21 magnesium oxide 500 mg PO DAILY 02/12/21 turmeric-turmeric root extract 2 cap PO DAILY 02/12/21 vitamin B complex 1 cap PO DAILY 02/12/21 amlodipine [Norvasc] 5 mg PO DAILY #30 tab 02/14/21 Hospital Course Summary of Care Provided Minutes Spent on Discharge: 35 Hospital Course: Disposition: No home health care needs identified, patient to return home on discharge 1) acute CHF exacerbation Echocardiogram from 02/13 demonstrated normal LV size and systolic function, mild left ventricular hypertrophy, an estimated EF of 60% and stage II diastolic dysfunction. Echocardiogram results are more or less the same from echo in 06/27, although diastolic dysfunction was indeterminate at prior echo. Home medication list does not include beta-deb, JETHRO/ARB or Lasix. Patient not a candidate for JETHRO/ARB therapy due to allergy. Chest x-ray demonstrated mild cardiomegaly and bilateral pleural effusions. Plan; initiate home oxygen prescription with ambulation, follow-up with primary care provider within the next 2 weeks. 2) acute hypoxic respiratory failure Likely secondary to #1. Rapid Covid negative, patient has not been vaccinated for COVID-19. Plan; as above. 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 Plan; initiate amlodipine 5 mg p.o. daily, follow-up with primary care provider within the next 2 weeks. 4) seizure Continue Keppra. 5) DM 2 Hemoglobin A1c 9.7, blood sugar has been around 300 throughout admission despite insulin administration. Patient reports that he follows with his primary care provider for his diabetes and that his blood sugar is always above normal. Patient does not wish to have his diabetic regimen adjusted at this time. Plan; follow-up with primary care provider within the next 2 weeks. Patient seen by Amish Chery PA-C, under the supervision of Dr. Ibrahim. Physical Exam Narrative Patient is a 60-year-old male comfortably resting in bed, alert and oriented x3. Patient denies any change or progression in symptoms from yesterday. Denies chest pain, shortness of breath, palpitations, hemoptysis, sputum production, fever, chills, N/V/D. Const alert, oriented x3 and no apparent distress HEENT normocephalic, head/scalp atraumatic and hearing grossly normal bilaterally Eyes EOMs intact bilaterally and conjunctivae normal Neck no lymphadenopathy, supple and no JVD Cardio regular rate, regular rhythm, no murmurs and no JVD GI normal to inspection, nondistended, normoactive bowel sounds, soft to palpation and non-tender Extremity normal to inspection, full ROM and no clubbing, cyanosis or edema Skin no rashes or lesions noted, no wounds and skin turgor normal Neuro CN's II-XII intact bilaterally Psych affect normal Weight / BMI Weight Weight: 191 lb 9.307 oz Body Mass Index (BMI) 28.0 ABG / Lab / Microbiology Data Result Diagrams: 02/14/21 06:29 02/14/21 06:29 Laboratory: Laboratory Results - last 24 hr 02/13/21 02/13/21 02/13/21 05:12 11:57 16:34 WBC RBC Hgb Hct MCV MCH MCHC RDW Std Deviation RDW Coeff of Silvia Plt Count MPV Immature Gran % (Auto) Neut % (Auto) Lymph % (Auto) [place] % (Auto) Eos % (Auto) Baso % (Auto) Absolute Neuts (auto) Absolute Lymphs (auto) Nucleated RBC % Sodium Potassium Chloride Carbon Dioxide Anion Gap BUN Creatinine Estim Creat Clear Calc Est GFR (MDRD) Af Amer Est GFR (MDRD) Non-Af BUN/Creatinine Ratio Glucose Hemoglobin A1c 9.7 H Calcium POC Glucose 302 H 217 H 02/13/21 02/14/21 02/14/21 22:07 06:20 06:29 WBC 7.1 RBC 3.98 L Hgb 11.1 L Hct 34.6 L MCV 86.9 MCH 27.9 MCHC 32.1 RDW Std Deviation 39.8 RDW Coeff of Silvia 12.4 Plt Count 266 MPV 10.1 Immature Gran % (Auto) 0.100 Neut % (Auto) 61.1 Lymph % (Auto) 26.8 [place] % (Auto) 7.2 Eos % (Auto) 4.1 Baso % (Auto) 0.7 Absolute Neuts (auto) 4.4 Absolute Lymphs (auto) 1.91 Nucleated RBC % 0 Sodium Potassium Chloride Carbon Dioxide Anion Gap BUN Creatinine Estim Creat Clear Calc Est GFR (MDRD) Af Amer Est GFR (MDRD) Non-Af BUN/Creatinine Ratio Glucose Hemoglobin A1c Calcium POC Glucose 235 H 286 H 02/14/21 02/14/21 06:29 11:27 WBC RBC Hgb Hct MCV MCH MCHC RDW Std Deviation RDW Coeff of Silvia Plt Count MPV Immature Gran % (Auto) Neut % (Auto) Lymph % (Auto) [place] % (Auto) Eos % (Auto) Baso % (Auto) Absolute Neuts (auto) Absolute Lymphs (auto) Nucleated RBC % Sodium 140 Potassium 3.9 Chloride 106 Carbon Dioxide 28.0 Anion Gap 6 BUN 36 H Creatinine 1.46 H Estim Creat Clear Calc 57.31 Est GFR (MDRD) Af Amer 63 Est GFR (MDRD) Non-Af 52 L BUN/Creatinine Ratio 24.7 H Glucose 269 H Hemoglobin A1c Calcium 8.5 POC Glucose 278 H Microbiology: Microbiology 02/12/21 14:27 Blood Culture - Preliminary Blood Culture (Wb) - Left Hand No growth in 48 hours. 02/12/21 13:05 Blood Culture - Preliminary Blood Culture (Wb) - Anticubital Left No growth in 48 hours. Microbiology 02/12/21 14:27 Blood Culture (Wb) - Left Hand Blood Culture - Preliminary No growth in 48 hours. 02/12/21 13:05 Blood Culture (Wb) - Anticubital Left Blood Culture - Preliminary No growth in 48 hours. 02/12/21 13:05 Mucosa - Nose SARS-CoV-2 Antigen (Rapid) - Final Radiography Diagnostic Testing: Radiology Impression Echocardiogram 02/12/21 17:09 Interpretation Summary Normal LV size. Mild concentric left ventricular hypertrophy. Left ventricular systolic function is normal. The estimated ejection fraction is 60 %. Stage 2 diastolic dysfunction. Moderate size right pleural effusion. Ordering Physician: Arden Ibrahim Referring Physician: Amish Han Performed By: Una Vaughn RDCS, RVT D/C Instructions Discharge Diet: No restrictions Please Follow Up With: Primary care provider When: Within the next two weeks. Meaningful Use Info Meaningful Use Diagnoses (Choose all that apply): CHF CHF JETHRO/ARB ordered at discharge?: No Reason JETHRO/ARB not ordered?: Allergy Documented LVEF (%): 60 Discharge Plan Admission Admit Date/Time: 02/12/21 16:40 Primary Reason for Your Visit: Shortness of breath. Attending Provider: Arden Ibrahim Primary Care Provider: Amish Han Instructions Additional Instructions / Restrictions: Patient Problems: Altered Health Status related to Hospitalization Patient Goals: *Optimal Level of Health *Keep Appointments *Medication Compliance *Remain SafePatient qualifies for home oxygen; Ambulatory pulse ox 87%. Discharge Orders/Prescriptions Prescriptions: New amlodipine [Norvasc] 5 mg tablet 5 mg PO DAILY Qty: 30 RF: 0 Continued albuterol sulfate [Ventolin HFA] 1 INHALER inhaler 2 puff inhalation DAILY PRN (Reason: Bronchospasm) RF: 0 cholecalciferol (vitamin D3) [Vitamin D3] 1,000 UNIT capsule 500 unit PO DAILY RF: 0 levetiracetam [Keppra] 500 mg Tablet 500 mg PO BID RF: 0 calcium carbonate [Calcium 500] 500 mg calcium (1,250 mg) tablet 500 mg PO DAILY RF: 0 vitamin B complex Capsule 1 cap PO DAILY RF: 0 insulin lispro [Humalog KwikPen Insulin] 100 unit/mL Insulin Pen 5 - 15 unit SUBCUT TIDCM RF: 0 cinnamon bark [Cinnamon] 500 mg capsule 500 mg PO DAILY RF: 0 turmeric-turmeric root extract 450-50 mg capsule 2 cap PO DAILY RF: 0 magnesium oxide 200 mg magnesium tablet 500 mg PO DAILY RF: 0 insulin glargine 100 UNITS/ML insulin pen 5 - 10 units SC QHS RF: 0 Referrals / Follow Up: Amish Han MD [Primary Care Provider] - Within 2 Weeks (Please call to schedule follow up appointment) Disposition Disposition (needs filled in before D/C Order can be placed): Home, Self Care Documented by User: Dr. Arden Ibrahim DO 02/14/21 17:00 Providers Date of Admission: 02/12/21 Reason For Visit: HYPOXIA Medications at Discharge Home Medications albuterol sulfate [Ventolin HFA] 2 puff INHALATION DAILY PRN 06/11/13 cholecalciferol (vitamin D3) [Vitamin D3] 500 unit PO DAILY 08/15/13 calcium carbonate [Calcium 500] 500 mg PO DAILY 02/12/21 cinnamon bark [Cinnamon] 500 mg PO DAILY 02/12/21 insulin glargine 5 - 10 units SC QHS 02/12/21 insulin lispro [Humalog KwikPen Insulin] 5 - 15 unit SUBCUT TIDCM 02/12/21 levetiracetam [Keppra] 500 mg PO BID 02/12/21 magnesium oxide 500 mg PO DAILY 02/12/21 turmeric-turmeric root extract 2 cap PO DAILY 02/12/21 vitamin B complex 1 cap PO DAILY 02/12/21 amlodipine [Norvasc] 5 mg PO DAILY #30 tab 02/14/21 Hospital Course Procedures 2-D Echocardiogram Summary of Care Provided Minutes Spent on Discharge: 35 Hospital Course: Presents with shortness of breath. He presented with shortness of breath and found to be in CHF as well as hypertensive hypertensive emergency. Overall patient improved. Patient will require oxygen upon discharge. 1. Acute HFpEF exacerbation COVID 19 PCR negative EF 55% Plan: Continue with diuresis Fluid restriction 1500 cc/day Daily weights No JETHRO inhibitor nor angiotensin receptor deb given noted allergy (angioedem) to lisinopril. We will utilize hydralazine and isosorbide Hold off on beta-blockers at this time given acute CHF 2. Hypertensive emergency with end-stage organ disease with CHF improved Patient already on amlodipine 5 mg daily. Concern for compliance Plan: Continue with amlodipine No JETHRO inhibitor nor angiotensin receptor deb given allergy (angioedem) to lisinopril 3. Acute hypoxic respiratory failure Secondary to CHF Plan: Treat the underlying process Wean oxygen as tolerated Will require oxygen upon discharge 4. Seizure Patient had a seizure back in June and has been seizure-free since Patient had a brain mass noted at that time. He declined intervention back in June but states that he is followed up and repeat imaging is apparently not showing that area of concern. Patient states that he has been released back to driving by his neurologist. Plan: Continue with the levetiracetam 5. Diabetes mellitus type 2 Continue with insulin glargine Sliding scale insulin Physical Exam Const alert Resp normal respiratory effort, no retractions, no use of accessory muscles and clear to auscultation bilaterally Cardio regular rate, regular rhythm, S1 normal heart sound and S2 normal heart sound GI normal to inspection, nondistended, normoactive bowel sounds, soft to palpation, non-tender and non-distended ABG / Lab / Microbiology Data Result Diagrams: 02/14/21 06:29 02/14/21 06:29 Discharge Plan Admission Admit Date/Time: 02/12/21 16:40 Primary Reason for Your Visit: Shortness of breath. Attending Provider: Arden Ibrahim Primary Care Provider: Amish Han Instructions Additional Instructions / Restrictions: Patient Problems: Altered Health Status related to Hospitalization Patient Goals: *Optimal Level of Health *Keep Appointments *Medication Compliance *Remain SafePatient qualifies for home oxygen; Ambulatory pulse ox 87%. Discharge Orders/Prescriptions Prescriptions: New amlodipine [Norvasc] 5 mg tablet 5 mg PO DAILY Qty: 30 RF: 0 Continued albuterol sulfate [Ventolin HFA] 1 INHALER inhaler 2 puff inhalation DAILY PRN (Reason: Bronchospasm) RF: 0 cholecalciferol (vitamin D3) [Vitamin D3] 1,000 UNIT capsule 500 unit PO DAILY RF: 0 levetiracetam [Keppra] 500 mg Tablet 500 mg PO BID RF: 0 calcium carbonate [Calcium 500] 500 mg calcium (1,250 mg) tablet 500 mg PO DAILY RF: 0 vitamin B complex Capsule 1 cap PO DAILY RF: 0 insulin lispro [Humalog KwikPen Insulin] 100 unit/mL Insulin Pen 5 - 15 unit SUBCUT TIDCM RF: 0 cinnamon bark [Cinnamon] 500 mg capsule 500 mg PO DAILY RF: 0 turmeric-turmeric root extract 450-50 mg capsule 2 cap PO DAILY RF: 0 magnesium oxide 200 mg magnesium tablet 500 mg PO DAILY RF: 0 insulin glargine 100 UNITS/ML insulin pen 5 - 10 units SC QHS RF: 0 Referrals / Follow Up: Amish Han MD [Primary Care Provider] - Within 2 Weeks (Please call to schedule follow up appointment) Disposition Disposition (needs filled in before D/C Order can be placed): Home, Self Care Charges/Coding Visit Charges Inpatient E&M: 25683 Disch Hosp
--- NOTE | 2021-02-16 15:27 | CASEMGMT ---
MICHELLE HUANG Discharge Follow-up Phone Call: ROSALINE: Payal Strata: 3 Call Date: 02/16/21 Discharge Date: 02/14/21 Time of Call: 1525 Duration: 1 min Admitting Diagnosis: Hypoxia RN REINA attempted to complete follow-up phone call after recent hospitalization. No answer, voiced message left with return contact information. Patient was sent home with home oxygen.
== END 2021-02-14 14:52 | disposition home or self-care (01) | DRG 291 ==
LOC: ED 13:35 → PCU 16:44
PROVIDERS: Physician Assistant; Emergency Provider Emergency Medicine; PCP Family Medicine
DX: I11.0 Hypertensive heart disease with heart failure (principal); J96.01 Acute respiratory failure with hypoxia; I16.1 Hypertensive emergency; R56.9 Unspecified convulsions; E11.65 Type 2 diabetes mellitus with hyperglycemia; F17.220 Nicotine dependence, chewing tobacco, uncomplicated; I50.33 Acute on chronic diastolic (congestive) heart failure; I50.84 End stage heart failure
CPT/HCPCS: 36415; 71045; 80048; 80053; 80061; 82962; 83036; 83605; 83880; 84443; 84484; 85025; 87040; 87426; 87635; 93005; 93306; 99285; Q9957; U0005; A4216; J1940; J3490; U0003

== ENCOUNTER 2021-03-11 13:34 | Inpatient (IN) | payer MEDICARE, SELFPAY ==
[2021-02-12 16:47] VITALS: BMI 28.0
[2021-03-11] VITALS (24 sets, daily range): BP systolic 137–190; BP diastolic 78–103; PULSE 88–135; RESP 21–35; TEMP 36.6–38.5; O2SAT 88–97; BMI 28.8
--- NOTE | 2021-03-11 14:04 | EKG12_ITS ---
Test Reason : SOB/UNRESPONSIVE Blood Pressure : / mmHG Vent. Rate : 101 BPM Atrial Rate : 101 BPM P-R Int : 140 ms QRS Dur : 082 ms QT Int : 338 ms P-R-T Axes : 054 002 039 degrees QTc Int : 438 ms Sinus tachycardia Otherwise normal ECG Confirmed by DIOR MONSON, REMY ([id number]), editorial manager HANNAH BRAY ([id number]) on 03/16/2021 9:35:00 AM Referred By: PIEDAD/RU Confirmed By:REMY RADER MD
--- NOTE | 2021-03-11 14:07 | EDS_ITS ---
HPI History of Present Illness Chief Complaint: Shortness of Breath Narrative Narrative: of hypertension, hyperlipidemia, diabetes, as well as congestive heart failure. Patient was admitted to the hospital early February for congestive heart failure complications. Patient states that he was discharged home on oxygen, typically 2 L. States that over the course the last couple of days has had to increase his oxygen usage and is feeling progressively more short of breath. He states that he now has a cough that is productive of sputum, and a fever and generalized body aches and chills. He does also endorse that he has had some nausea and vomiting recently. Emesis is nonbloody nonbilious. No diarrhea. No abdominal pain. No skin rashes. He does state that he feels that his lower extremity edema is somewhat worse. Review of systems otherwise negative.Patient presenting for evaluation secondary to shortness of breath. Patient has an underlying history PFSH PFS Medical History Brain mass CHF (congestive heart failure) CHF (congestive heart failure) Diabetes HTN (hypertension) Seizure Seizures Smoker Home Medications albuterol sulfate [Ventolin HFA] 2 puff INHALATION DAILY PRN 06/11/13 [History Last Taken 02/12/21] cholecalciferol (vitamin D3) [Vitamin D3] 500 unit PO DAILY 08/15/13 [History Last Taken 02/12/21] calcium carbonate [Calcium 500] 500 mg PO DAILY 02/12/21 [History Last Taken 02/11/21] cinnamon bark [Cinnamon] 500 mg PO DAILY 02/12/21 [History Last Taken 02/11/21] insulin glargine 5 - 10 units SC QHS 02/12/21 [History Last Taken 02/12/21] insulin lispro [Humalog KwikPen Insulin] 5 - 15 unit SUBCUT TIDCM 02/12/21 [History Last Taken 02/11/21] magnesium oxide 500 mg PO DAILY 02/12/21 [History Last Taken 02/11/21] turmeric-turmeric root extract 2 cap PO DAILY 02/12/21 [History Last Taken 02/11/21] vitamin B complex 1 cap PO DAILY 02/12/21 [History Last Taken 02/11/21] Allergy/AdvReac Type Severity Reaction Status Date / Time hydrocodone bitartrate AdvReac Mild HYPER Verified 03/11/21 13:39 [From Vicodin] lisinopril AdvReac Other Verified 03/11/21 13:39 Family History Other Heart disease Social History Smoking Status: Former smoker Smokeless tobacco user: chewing tobacco ROS ROS ED Constitutional Constitutional ED: Reports chills and fever(s) ENT ENT ED: Denies rhinorrhea Cardiovascular Cardiovascular: Denies chest pain Respiratory/Chest Respiratory/Chest: Reports cough, dyspnea and sputum Gastrointestinal Gastrointestinal: Reports nausea and vomiting Genitourinary Genitourinary ED: Denies dysuria or hematuria Musculoskeletal Musculoskeletal: Denies back pain Integumentary Denies rash Neurologic Neurologic: Denies paresthesias or weakness Psychiatric Psychiatric: Denies depression Endocrine Endocrinology: Denies fatigue Allergic/Immunologic Allergic/Immunologic ED: Denies urticaria EXAM Physical Exam Const Vital Signs: 03/11/21 13:35 03/11/21 13:39 03/11/21 13:44 Temperature 101.3 F H 101.3 F H Temperature Source Oral Oral Pulse Rate 135 H 135 H Respiratory Rate 25 H 25 H Respiratory Effort Short of Breath Respiratory Pattern Tachypnea Blood Pressure 190/99 H 190/99 H Blood Pressure Mean 129 129 Pulse Ox 96 96 Oxygen Delivery Method Non-Rebreather Non-Rebreather Non-Rebreather Oxygen Flow Rate (L/min) 15 15 15 03/11/21 14:54 03/11/21 15:04 Temperature 100.9 F H Temperature Source Oral Pulse Rate 111 H Respiratory Rate 25 H Respiratory Effort Respiratory Pattern Blood Pressure 162/98 H Blood Pressure Mean 119 Pulse Ox 95 94 Oxygen Delivery Method Nasal Cannula Nasal Cannula Oxygen Flow Rate (L/min) 6 6 Positive well nourished and well developed Constitutional Narrative: Mildly dyspneic and frequently coughing General Appearance ED: well developed HEENT Reports moist mucous membranes Negative for trauma or tenderness Eyes EOMs intact bilaterally Neck no lymphadenopathy, supple and no JVD Chest Wall inspection of chest normal Resp Resp Narrative: Patient is tachypneic, there are rales noted in the right base. No retractions or accessory muscle use. Cardio regular rhythm, no murmurs and peripheral pulses 2+ throughout Cardio Narrative: 2+ radial pulses bilaterally symmetric Rate: tachycardic GI normal to inspection, nondistended, normoactive bowel sounds, non-tender and no masses Palpation: soft Back/Spine normal to inspection Extremity normal to inspection Extremity Narrative: Extremities bilaterally symmetric General Extremety ED: Yes edema; Negative for tenderness General Extremity: edema Neuro oriented x3 and no sensory deficits noted Sensorium / Orientation: alert Motor Exam: strength 5/5 throughout Psych mental status grossly normal Skin no rashes or lesions noted MDM MDM MDM Narrative Medical decision making narrative: Patient presented with shortness of breath. He was febrile tachycardic and hypoxic I was able to wean the patient down to 6 L nasal cannula with saturations around 90 to 92%. Sepsis work-up was initiated, patient was not hypotensive he was not started on initial fluid resuscitation, likewise the patient has a history of congestive heart failure and this might do more harm than good. Patient was given acetaminophen for treatment of his fever, and was empirically given vancomycin and Zosyn as he was recently admitted to the hospital and I have suspicion for healthcare associated pneumonia. Chest x-ray by my personal review shows bilateral infiltrates, right being worse than the left likely consistent with a bacterial pneumonia. Patient's work-up shows a neutrophilic predominance at 76% with a normal lactic acid. Patient was hyperglycemic at 450 he was given dose of subcutaneous insuli n. Repeat perfusion exam on the patient at 1500 shows him to continue to be tachypneic but perfusing well to be mildly tachycardic with a normalizing blood pressure. I believe that the patient requires admission. I discussed with the hospitalist. Lab Data Labs: Laboratory Results - last 24 hr 03/11/21 03/11/21 03/11/21 14:00 14:00 14:00 WBC 5.0 RBC 4.17 L Hgb 11.4 L Hct 35.4 L MCV 84.9 MCH 27.3 MCHC 32.2 RDW Std Deviation 36.4 RDW Coeff of Silvia 11.9 Plt Count 152 MPV 11.9 Immature Gran % (Auto) 0.200 Neut % (Auto) 76.0 H Lymph % (Auto) 15.7 L [place] % (Auto) 7.7 Eos % (Auto) 0.0 Baso % (Auto) 0.4 Absolute Neuts (auto) 3.8 Absolute Lymphs (auto) 0.78 L Nucleated RBC % 0 Sodium 131 L Potassium 4.2 Chloride 96 L Carbon Dioxide 27.0 Anion Gap 8 BUN 27 H Creatinine 1.50 H Estim Creat Clear Calc 54.07 Est GFR (MDRD) Af Amer 61 Est GFR (MDRD) Non-Af 51 L BUN/Creatinine Ratio 18.0 Glucose 453 H* Lactic Acid 1.4 Calcium 8.4 L Total Bilirubin 0.50 AST 24 ALT 34 Alkaline Phosphatase 117 Total Protein 7.1 Albumin 3.5 Globulin 3.6 Albumin/Globulin Ratio 1.0 Radiography Chest X-Ray - ED: 1 View, Read by ED Physician, Right Infiltrate and Left Infiltrate EKG Initial EKG: Attestation: I personally reviewed and interpreted this EKG as follows: (Sinus tachycardia with a rate of 101, isoelectric ST segments normal upright T waves, normal intervals no evidence of acute ischemia.) Critical Care Time Critical Care Time: Yes Critical care time (excluding procedures): 30-74 minutes (45), Including time spent:, Discussing w/Consultants, Arranging Admission or Transfer and Performing Direct Patient Care at Bedside Discharge Plan Triage Chief Complaint: Shortness of Breath ED Provider: Harjit Quezada Dx/Rx/DC Orders Clinical Impression: HCAP (healthcare-associated pneumonia), Hyperglycemia, Sepsis Prescriptions: No Action albuterol sulfate [Ventolin HFA] 1 INHALER inhaler 2 puff inhalation DAILY PRN (Reason: Bronchospasm) RF: 0 cholecalciferol (vitamin D3) [Vitamin D3] 1,000 UNIT capsule 500 unit PO DAILY RF: 0 calcium carbonate [Calcium 500] 500 mg calcium (1,250 mg) tablet 500 mg PO DAILY RF: 0 vitamin B complex Capsule 1 cap PO DAILY RF: 0 insulin lispro [Humalog KwikPen Insulin] 100 unit/mL Insulin Pen 5 - 15 unit SUBCUT TIDCM RF: 0 cinnamon bark [Cinnamon] 500 mg capsule 500 mg PO DAILY RF: 0 turmeric-turmeric root extract 450-50 mg capsule 2 cap PO DAILY RF: 0 magnesium oxide 200 mg magnesium tablet 500 mg PO DAILY RF: 0 insulin glargine 100 UNITS/ML insulin pen 5 - 10 units SC QHS RF: 0 Primary Care Provider: Amish Han Referrals: Amish Han MD [Primary Care Provider] -
[2021-03-11 14:23] LABS: Absolute Lymphocyte Count 0.78 X10^3/uL (0.83-4.51); Absolute Neutrophil Count 3.8 X10^3/uL (2.0-7.7); Basophil# 0.02 X10^3/uL; Basophil% 0.4 % (0-1); Hematocrit 35.4 % (40-54); Hemoglobin 11.4 g/dL (13.0-16.5); Lymphocyte # 0.78 X10^3/ul (0.83-4.51); Lymphocyte % 15.7 % (19-41); Mean Corp Hgb Conc 32.2 g/dL (32-36); Mean Corpuscular Hgb 27.3 pg (27.0-32.0); Mean Corpuscular Volume 84.9 fL (80-94); Mean Platelet Vol. 11.9 fl (6.2-12.0); Monocyte# 0.38 X10^3/uL; Monocyte% 7.7 % (0-10); NRBC Flagged by Analyzer 0 % (0-5); Neutrophil # 3.77 X10^3/uL (2.7-7.7); Platelet Count 152 K/mm3 (150-450); RBC Distribution Width CV 11.9 % (11.6-14.6); RBC Distribution Width SD 36.4 fl (35.1-43.9); Red Blood Count 4.17 M/mm3 (4.6-6.2)
[2021-03-11 14:35] LABS: AST(SGOT) 24 U/L (15-37); Alanine Aminotransfer ALT/SGPT 34 U/L (16-61); Albumin, Serum 3.5 g/dL (3.2-5.0); Alkaline Phosphatase 117 U/L (45-117); Anion Gap 8 (5-15); BUN 27 mg/dL (7-18); Calcium,Total 8.4 mg/dL (8.5-10.1); Chloride 96 mmol/L (98-107); EST Glomerular Filtration Rate 51 mL/min (>60); Est Glom Filt Rate - Afr Amer 61 mL/min (>60); Estimated Creatinine Clearance 54.07 ml/min; Globulin 3.6 g/dL (2.2-4.2); Glucose 453 mg/dL (74-106); Potassium 4.2 mmol/L (3.5-5.1); Protein, Total 7.1 g/dL (6.4-8.2); Sodium Level 131 mmol/L (136-145)
[2021-03-11 14:38] LABS: Lactic Acid 1.4 mmol/L (0.4-1.9)
--- NOTE | 2021-03-11 15:00 | RAD_ITS ---
HISTORY: Cough, Fever EXAMINATION/TECHNIQUE: XR Chest 1 View: Portable upright AP chest x-ray COMPARISON: 02/12/21 FINDINGS: LINES/DEVICES: None. LUNGS: Bilateral airspace opacities with right basilar consolidation, possible left pleural effusion. Mild vascular prominence. MEDIASTINUM AND CARDIOVASCULAR STRUCTURES: Stable borderline cardiomegaly. BONES AND SOFT TISSUES: No acute bony abnormalities. RAD/Chest 1 View (Portable) IMPRESSION: Findings consistent with pneumonia and mild vascular congestion. at 1526 Reported and signed by: Chance Panda MD Electronically Signed: Chance Panda MD at 15:24 EDT Tel , Service support ,
[2021-03-11] MEDS: Insulin Lispro 100 UNIT/ML INSULN.PEN 10 UNIT SC (15:12)
[2021-03-11] MEDS: Acetaminophen 500 MG Tablet 1000 MG PO (15:12)
--- NOTE | 2021-03-11 15:44 | HP.PCM.HOS_ITS ---
HPI - General General Date of Admission: 03/11/21 HPI Narrative JAMES RICO, is a 60 M who presents with shortness of breath as well as fevers and chills. He was recently discharged from the hospital in the beginning of February with a CHF exacerbation went home on 2 L of oxygen. He states that he has been short of breath since that time though it got worse over the last several days and he also started having cough with some sputum production. In the ER chest x-ray demonstrated bilateral interstitial changes consistent with pneumonia likely Covid. He did test positive for Covid in the ER and denies getting his vaccines. PFSH Medical History Brain mass CHF (congestive heart failure) CHF (congestive heart failure) Diabetes HTN (hypertension) Seizure Seizures Smoker Home Medications albuterol sulfate [Ventolin HFA] 2 puff INHALATION DAILY PRN 06/11/13 [History Last Taken 02/12/21] cholecalciferol (vitamin D3) [Vitamin D3] 500 unit PO DAILY 08/15/13 [History Last Taken 03/11/21] calcium carbonate [Calcium 500] 500 mg PO DAILY 02/12/21 [History Last Taken 03/11/21] cinnamon bark [Cinnamon] 500 mg PO DAILY 02/12/21 [History Last Taken 03/11/21] insulin lispro [Humalog KwikPen Insulin] 10 - 15 unit SUBCUT ACHS 02/12/21 [History Last Taken 03/08/21] magnesium oxide 500 mg PO DAILY 02/12/21 [History Last Taken 03/10/21] turmeric-turmeric root extract 2 cap PO DAILY 02/12/21 [History Last Taken 03/10/21] vitamin B complex 1 cap PO DAILY 02/12/21 [History Last Taken 03/10/21] Allergy/AdvReac Type Severity Reaction Status Date / Time hydrocodone bitartrate AdvReac Mild HYPER Verified 03/11/21 13:39 [From Vicodin] lisinopril AdvReac Other Verified 03/11/21 13:39 Family History (Updated 03/11/21 @ 15:[address] Odilon Mckeon MD) Other COPD (chronic obstructive pulmonary disease) Heart disease Surgical History (Updated 03/11/21 @ 15:[address] Odilon Mckeon MD) Status post foot surgery Social History Smoking Status: Never smoker Smokeless tobacco user: chewing tobacco ROS Constitutional Constitutional: Reports chills, fatigue and fever(s); Denies malaise Eyes Eyes: Denies blurry vision ENT HEENT: Denies headache(s) or nasal discharge Cardiovascular Cardiovascular: Denies chest pain, dyspnea on exertion or syncope Respiratory/Chest Respiratory/Chest: Reports cough and shortness of breath at rest; Denies shortness of breath with exertion Gastrointestinal Gastrointestinal: Denies constipation, diarrhea, nausea or vomiting Genitourinary Genitourinary: Denies dysuria Neurologic Neurologic: Denies focal weakness, numbness or tremor(s) Psychiatric Psychiatric: Denies anxiety or depression Vital Signs Vital Signs Vital Signs: 03/11/21 13:35 03/11/21 13:39 03/11/21 13:44 Temperature 101.3 F H 101.3 F H Temperature Source Oral Oral Pulse Rate 135 H 135 H Respiratory Rate 25 H 25 H Respiratory Effort Short of Breath Respiratory Pattern Tachypnea Blood Pressure 190/99 H 190/99 H Blood Pressure Mean 129 129 Pulse Ox 96 96 Oxygen Delivery Method Non-Rebreather Non-Rebreather Non-Rebreather Oxygen Flow Rate (L/min) 15 15 15 03/11/21 14:54 03/11/21 15:04 Temperature 100.9 F H Temperature Source Oral Pulse Rate 111 H Respiratory Rate 25 H Respiratory Effort Respiratory Pattern Blood Pressure 162/98 H Blood Pressure Mean 119 Pulse Ox 95 94 Oxygen Delivery Method Nasal Cannula Nasal Cannula Oxygen Flow Rate (L/min) 6 6 Weight Weight: 201 lb 0.985 oz Body Mass Index (BMI) 28.8 Physical Exam Const alert, oriented x3 and no apparent distress General Appearance: cooperative HEENT normocephalic and moist oral mucous membranes Eyes PERRL, EOMs intact bilaterally and conjunctivae normal Neck supple and no JVD Resp normal respiratory effort, no retractions, no use of accessory muscles and clear to auscultation bilaterally Effort and Inspection: tachypneic Auscultation: diminished lung sounds; Negative for crackles, rales, rhonchi or wheezes Cardio regular rhythm, S1 normal heart sound, S2 normal heart sound and no murmurs Rate: tachycardic GI soft to palpation, non-tender and non-distended; Negative for hepatosplenomegaly Extremity no clubbing, cyanosis or edema Skin no rashes or lesions noted Neuro no focal motor deficits and no sensory deficits noted Psych affect normal Appearance: appropriate Results Lab / Micro Data Result Diagrams: 03/11/21 14:00 03/11/21 14:00 Labs: Laboratory Results - last 24 hr 03/11/21 14:00: WBC 5.0, RBC 4.17 L, Hgb 11.4 L, Hct 35.4 L, MCV 84.9, MCH 27.3, MCHC 32.2, RDW Std Deviation 36.4, RDW Coeff of [place] 11.9, Plt Count 152, MPV 11.9, Immature Gran % (Auto) 0.200, Neut % (Auto) 76.0 H, Lymph % (Auto) 15.7 L, [place] % (Auto) 7.7, Eos % (Auto) 0.0, Baso % (Auto) 0.4, Absolute Neuts (auto) 3.8, Absolute Lymphs (auto) 0.78 L, Nucleated RBC % 0 03/11/21 14:00: Sodium 131 L, Potassium 4.2, Chloride 96 L, Carbon Dioxide 27.0, Anion Gap 8, BUN 27 H, Creatinine 1.50 H, Estim Creat Clear Calc 54.07, Est GFR (MDRD) Af Amer 61, Est GFR (MDRD) Non-Af 51 L, BUN/Creatinine Ratio 18.0, Glucose 453 H*, Calcium 8.4 L, Total Bilirubin 0.50, AST 24, ALT 34, Alkaline Phosphatase 117, Total Protein 7.1, Albumin 3.5, Globulin 3.6, Albumin/Globulin Ratio 1.0 03/11/21 14:00: Lactic Acid 1.4 Micro: Microbiology 03/11/21 14:51 Mucosa - Nose SARS-CoV-2 Antigen (Rapid) - Final SARS-CoV-2 (COVID 19) Radiology Impression Chest X-Ray 03/11/21 15:00 IMPRESSION: Findings consistent with pneumonia and mild vascular congestion. at 1526 Reported and signed by: Chance Panda MD Electronically Signed: Chance Panda MD at 15:24 EDT Tel , Service support , Assessment & Plan Assessment/Plan (1) Pneumonia due to COVID-19 virus: (2) Acute and chronic respiratory failure with hypoxia: (3) Type 2 diabetes mellitus: QUALIFIERS: Diabetes mellitus complication status: with hyperglycemia Diabetes mellitus prison insulin use: without intermission coordinator use Qualified Code(s): E11.65 - Type 2 diabetes mellitus with hyperglycemia PLAN: 1. Acute on chronic hypoxic respiratory failure secondary to COVID-19 pneumonia -Continue with Decadron and will start him on remdesivir given his symptoms over the last several days -We will transfer him to the ICU given his need for nonrebreather -We will obtain a D-dimer and if elevated obtain a CT of the chest and manage his kidney function -Chest x-ray consistent with bilateral pulmonary infiltrate and Covid -PCR was negative in February but rapid antigen is positive today and he states that he is unvaccinated and he would like to be intubated if necessary 2. Chronic diastolic CHF with pulmonary hypertension mild/HTN -Was supposed be discharged on Norvasc, does not appear to be compliant with this -He is allergic to lisinopril -EF in the beginning of February was of 60% with stage II diastolic dysfunction and RVSP of 36 mmHg -We will limit IV fluids 3. DM2 -We will place him on sliding scale insulin as well as long-acting insulin given the need for steroids -Accu-Cheks AC at bedtime DVT: Heparin Charges/Coding Visit Charges Inpatient E&M: 61556 Init Hosp L3
[2021-03-11 16:08] LABS: Bacteria 0 SEEN /hpf (None Seen); Mucous, Urine 0 SEEN /hpf (<or=2+); Squamous Epithelial Cells - UA 0 SEEN /hpf (0-5); White Blood Cells 0 SEEN /hpf (0-5)
[2021-03-11 16:12] LABS: Color, Urine Yellow (Yellow); Glucose, Dipstick 1000 mg/dl (Normal); Ketone-Dipstick Negative (Negative); Leukocyte Esterase-Dipstick Negative /ul (Negative); Nitrite-Dipstick Negative (Negative); Occult Blood-Urine 150 /ul (Negative); Protein-Dipstick 500 mg/dl (Negative); Urine Bilirubin Dipstick Negative (Negative); Urine Clarity Clear (Clear); Urine Urobilinogen Normal (Normal)
[2021-03-11 16:20] LABS: Red Blood Cells-Urine 0-5 SEEN /hpf (0-5)
[2021-03-11 16:37] LABS: International Normalized Ratio 1.1; Prothrombin Time (Protime)PT. 13.3 SECONDS (11.7-14.9)
[2021-03-11 16:38] LABS: Partial Thromboplast Time 32.2 Seconds (24.1-36.2)
[2021-03-11 17:02] LABS: D-Dimer Quantitative (DVT/PE) 1.05 FEU/ug/m (0.27-0.49)
[2021-03-11] MEDS: dexAMETHasone 10 MG/ML Vial 6 MG IV (20:17)
[2021-03-11] MEDS: Heparin Injection (Vial) 5,000 UNIT/ML VIAL 5000 UNIT SC (20:18)
[2021-03-11] MEDS: Acetaminophen 325 MG Tablet 650 MG PO (20:18)
[2021-03-11] MEDS: Insulin Lispro 100 UNIT/ML INSULN.PEN SC (20:22)
[2021-03-11 20:41] LABS: Bedside Glucose 252 mg/dL (70-110)
--- NOTE | 2021-03-11 22:47 | PCM.PN.BLA ---
Progress Note Patient with increased oxygen requirements; was on 10 L at the start of shift, increased to 50 L on Airvo 65% FiO2 Chart reviewed-noted elevated D-dimer Added BNPep stat Lasix 40mg IV x 1 pending results of BNP Will dc heparin SC; start Lovenox 90mg SC x1 for empiric treatment of probable PE Cannot do CTA chest because of kidney function
[2021-03-11 22:56] LABS: BNP,B-Type NATRIURETIC PEPTIDE 322.4 pg/mL (0-100)
[2021-03-11] MEDS: Furosemide 40 MG/4 ML Vial IV (23:18)
[2021-03-11] MEDS: Enoxaparin 100 MG/ML Syringe 90 MG SC (23:18)
[2021-03-11] MEDS: Albuterol 2.5 MG/3 ML VIAL.NEB. INHALATION (23:18)
[2021-03-11] MEDS: 0.9% Saline Lock 10 ML Syringe IV (23:18)
[2021-03-12] VITALS (35 sets, daily range): BP systolic 126–186; BP diastolic 69–114; PULSE 73–99; RESP 19–33; TEMP 36.2–37.2; O2SAT 87–100
[2021-03-12] MEDS: guaiFENesin Dm 10 ML UDC PO ×3 (02:23→21:29)
[2021-03-12] MEDS: Acetaminophen 325 MG Tablet 650 MG PO ×3 (03:37→21:29)
[2021-03-12 04:35] LABS: Absolute Lymphocyte Count 0.33 X10^3/uL (0.83-4.51); Absolute Neutrophil Count 4.6 X10^3/uL (2.0-7.7); Basophil# 0.01 X10^3/uL; Basophil% 0.2 % (0-1); Lymphocyte # 0.33 X10^3/ul (0.83-4.51); Lymphocyte % 6.5 % (19-41); Mean Corp Hgb Conc 32.4 g/dL (32-36); Mean Corpuscular Hgb 27.2 pg (27.0-32.0); Mean Platelet Vol. 11.9 fl (6.2-12.0); Monocyte# 0.15 X10^3/uL; NRBC Flagged by Analyzer 0 % (0-5); Neutrophil # 4.55 X10^3/uL (2.7-7.7); Neutrophil % 89.7 % (47-70); POSITIVE DIFFERENTIAL YES; Platelet Count 147 K/mm3 (150-450); RBC Distribution Width CV 11.9 % (11.6-14.6); RBC Distribution Width SD 36.3 fl (35.1-43.9); Red Blood Count 4.05 M/mm3 (4.6-6.2); White Blood Count 5.1 K/mm3 (4.4-11.0)
[2021-03-12 04:41] LABS: Differential Indicated SCAN CRITERIA MET
[2021-03-12 04:49] LABS: ALB/GLOB Ratio 0.9 RATIO (0.9-2.4); AST(SGOT) 31 U/L (15-37); Alanine Aminotransfer ALT/SGPT 34 U/L (16-61); Albumin, Serum 3.3 g/dL (3.2-5.0); Alkaline Phosphatase 115 U/L (45-117); Anion Gap 9 (5-15); BUN 32 mg/dL (7-18); BUN/Creat Ratio 18.1 RATIO (10-20); Calcium,Total 7.7 mg/dL (8.5-10.1); Chloride 96 mmol/L (98-107); Creatinine, Serum 1.77 mg/dL (0.70-1.30); EST Glomerular Filtration Rate 42 mL/min (>60); Est Glom Filt Rate - Afr Amer 51 mL/min (>60); Estimated Creatinine Clearance 45.83 ml/min; Globulin 3.5 g/dL (2.2-4.2); Glucose 446 mg/dL (74-106); Potassium 4.5 mmol/L (3.5-5.1); Protein, Total 6.8 g/dL (6.4-8.2); Sodium Level 132 mmol/L (136-145)
--- NOTE | 2021-03-12 07:08 | CT_ITS ---
EXAM: CT ANGIOGRAPHY CHEST WITHOUT AND WITH INTRAVENOUS CONTRAST : 1960 CLINICAL INDICATION: COVID TECHNIQUE: Helically acquired angiography images were obtained of the chest without and with intravenous contrast. This CT exam was performed using one or more of the following dose reduction techniques: automated exposure control, adjustment of the mA and/or kV according to patient size, and/or use of iterative reconstruction technique. This report was created using [employer] report generation technology. MIP reconstructed images were created and reviewed. CONTRAST: IV 100mL Isovue-370 COMPARISON: None. FINDINGS: PULMONARY ARTERIES: Unremarkable. Normal in caliber. No evidence of pulmonary embolism. AORTA: Unremarkable. Normal in caliber. No evidence of dissection. GREAT VESSELS OF AORTIC ARCH: Unremarkable. Normal in caliber. No evidence of dissection. LUNGS AND PLEURAL SPACES: There are bilateral pleural effusions with bilateral upper and lower lobe consolidation greatest in the right lung base compatible with bilateral pneumonia. No mass. HEART: Unremarkable. Heart size is normal. No pericardial effusion. No signs of right heart strain. MEDIASTINUM: Unremarkable. No mediastinal or hilar adenopathy. Esophagus is unremarkable. No hiatal hernia. THYROID: Unremarkable. No thyroid lesions. BONES/JOINTS: Unremarkable. No suspicious lytic or blastic abnormality. CT/CTA Chest W/WO Contrast IMPRESSION: 1. No evidence of pulmonary embolus 2. Bilateral upper and lower lobe consolidation greatest in the right lower lobe compatible with diffuse bilateral pneumonia. Individualized dose optimization techniques were used for this CT. at 1138 Reported and signed by: Low Freeman MD Electronically Signed: Low Freeman MD at 11:37 EDT Tel , Service support ,
[2021-03-12 08:25] LABS: Bedside Glucose > 500 mg/dL (70-110)
[2021-03-12] MEDS: Insulin Lispro 100 UNIT/ML INSULN.PEN SC ×4 (08:36→21:31)
[2021-03-12] MEDS: Insulin Lispro 100 UNIT/ML INSULN.PEN 14 UNIT SC (09:11)
--- NOTE | 2021-03-12 09:31 | CON.PCM.CC_ITS ---
Assessment & Plan Assessment/Plan (1) Acute and chronic respiratory failure with hypoxia: (2) Pneumonia due to COVID-19 virus: (3) Type 2 diabetes mellitus: QUALIFIERS: Diabetes mellitus detention insulin use: without promotions assistant use Diabetes mellitus complication status: with hyperglycemia Qualified Code(s): E11.65 - Type 2 diabetes mellitus with hyperglycemia (4) Peripheral neuropathy: QUALIFIERS: Peripheral neuropathy type: polyneuropathy, unspecified Qualified Code(s): G62.9 - Polyneuropathy, unspecified (5) Hypertensive urgency: PLAN: RECOMMENDATIONS: 1. Continue Decadron and Remdesivir 2. Supplemental oxygen as indicated. Patient is a full code 3. Aggressively titrate insulin 4. Add Coreg 5. PT/OT/dietitian eval IMPRESSIONS: 1. Acute on chronic hypoxic respiratory failure secondary to COVID-19 pneumonia Patient with bilateral infiltrates and COVID-19 positive. Patient appears to be on day 4-5 of symptoms, so treatment with remdesivir and Decadron would be appropriate. Patient currently requiring Airvo for oxygenation status. Patient may continue to worsen over the next 7 to 10 days. Cannot exclude the need for BiPAP and possible intubation. Patient is currently on full anticoagulation. C TA has been ordered. 2. Poorly controlled diabetes mellitus Likely not necessary to obtain a hemoglobin A1c as patient readily admits to poorly controlled blood sugars. Decadron will lead to significantly elevated blood sugars. Patient will be increased on basal insulin. Continue aggressive sliding scale. Likely okay to continue with p.o. diet for now, but this may change as respiratory status deteriorates. 3. Hypertensive urgency/chronic diastolic CHF with type II pulmonary hypertension Patient with very poor insight into his overall condition. Given patient's significantly elevated blood pressure and tachycardia in the setting of diastolic dysfunction, will add Coreg. Patient is reportedly allergic to lisinopril. Would limit IV fluids as this can exacerbate both congestive heart failure and respiratory failure in the setting of COVID-19. 4. Poor insight/multiple hospitalizations Complicates care, management, recovery and prognosis. Dietitian to meet with patient to discuss diabetic control. HPI Consult Data Date of Consult: 03/12/21 HPI Narrative HPI Narrative: JAMES RICO is a 60 M, with past medical history listed below, who presents to [facility] on 03/11/2021 secondary to progressive shortness of breath and worsening oxygenation. Patient was recently hospitalized at [facility] for reported CHF complications and had to be discharged on 2 L/min of supplemental oxygen. Patient had noted that his requirements have increased. Patient also reported a cough productive of clear to white sputum, subjective fever and generalized body aches and chills. Patient did report one episode of nausea and vomiting. Emesis was described as nonbloody and nonbilious. Patient had not reported any diarrhea, abdominal pain, rashes or headaches. Patient did believe that his lower extremity edema was slightly worse compared to previous. Patient reports he has not been immunized against COVID-19. In the ER, patient was febrile to 101.3 ?F, tachycardic at 135 bpm and hypertensive at 190/99. Patient was requiring a nonrebreather to maintain saturations, but was able to be weaned to 6 L nasal cannula as fever improved. Patient was given Tylenol for his fever and empirically treated with vancomycin and Zosyn after chest x-ray showed bilateral infiltrates. Patient was hyperglycemic, so was given a dose of subcutaneous insulin. Laboratory data showed a white blood cell count of 5, hemoglobin of 11.4 and sodium of 131. Lactate was normal at 1.4 and liver enzymes were within normal limits. EKG showed only sinus tachycardia. Patient subsequently was found to be positive for COVID-19. Patient was admitted to the intensive care unit. However, overnight patient became more hypoxic requiring transition to Airvo at 70%. This morning, patient reported that he felt significantly improved from presentation. Patient still has a cough with minimal production. Patient appears to have very poor insight into his overall health. Patient states his glucose must be above 200 or he will go into a diabetic coma. Patient also reports that his blood pressure is correspondingly high. Patient states he has not felt well since leaving the hospital, but does admit that symptoms got significantly worse 4 to 5 days ago. Patient reportedly has never been a smoker and does not use inhalers at baseline. Patient does have an extensive heart history. Patient does not report a history of DKA, but does run high blood sugars at baseline. Review of systems otherwise negative from a constitutional, HEENT, respiratory, cardiovascular, GI, genitourinary, musculoskeletal, skin, neurologic, psychiatric and hematologic system unless stated above. [facility] Medical History Brain mass CHF (congestive heart failure) CHF (congestive heart failure) Diabetes HTN (hypertension) Seizure Seizures Smoker Home Medications albuterol sulfate [Ventolin HFA] 2 puff INHALATION DAILY PRN 06/11/13 [History Last Taken 02/12/21] cholecalciferol (vitamin D3) [Vitamin D3] 500 unit PO DAILY 08/15/13 [History Last Taken 03/11/21] calcium carbonate [Calcium 500] 500 mg PO DAILY 02/12/21 [History Last Taken 03/11/21] cinnamon bark [Cinnamon] 500 mg PO DAILY 02/12/21 [History Last Taken 03/11/21] insulin lispro [Humalog KwikPen Insulin] 10 - 15 unit SUBCUT ACHS 02/12/21 [History Last Taken 03/08/21] magnesium oxide 500 mg PO DAILY 02/12/21 [History Last Taken 03/10/21] turmeric-turmeric root extract 2 cap PO DAILY 02/12/21 [History Last Taken 03/10/21] vitamin B complex 1 cap PO DAILY 02/12/21 [History Last Taken 03/10/21] Allergy/AdvReac Type Severity Reaction Status Date / Time hydrocodone bitartrate AdvReac Mild HYPER Verified 03/11/21 13:39 [From Vicodin] lisinopril AdvReac Other Verified 03/11/21 13:39 Family History Other COPD (chronic obstructive pulmonary disease) Heart disease Surgical History Status post foot surgery Social History Smoking Status: Never smoker Smokeless tobacco user: chewing tobacco ROS ROS Narrative See HPI Physical Exam Const alert, oriented x3 and no apparent distress Constitutional Narrative: On Airvo General Appearance: cooperative HEENT normocephalic, head/scalp atraumatic and moist oral mucous membranes General Ear: hearing grossly impaired diffuse Eyes PERRL, EOMs intact bilaterally and conjunctivae normal Neck full ROM Lymph Lymphatic: no lymphadenopathy noted Chest inspection of chest normal Resp normal respiratory effort Resp Narrative: Diminished breath sounds Effort and Inspection: prolonged expiratory phase Auscultation: Negative for rales, rhonchi or wheezes Percussion: Negative for dullness Cardio regular rate, regular rhythm, S1 normal heart sound, S2 normal heart sound, no murmurs, no rub and no gallops GI normal to inspection, nondistended, normoactive bowel sounds no CVA tenderness Extremity General Extremity: edema bilateral (2+) lower extremity Skin no rashes or lesions noted Neuro oriented x3, CN's II-XII intact bilaterally and moves all extremities Psych cooperative and affect normal Lab / Micro Data Result Diagrams: 03/12/21 03:45 03/12/21 03:45 Labs: Laboratory Results - last 24 hr 03/11/21 14:00: WBC 5.0, RBC 4.17 L, Hgb 11.4 L, Hct 35.4 L, MCV 84.9, MCH 27.3, MCHC 32.2, RDW Std Deviation 36.4, RDW Coeff of [place] 11.9, Plt Count 152, MPV 11.9, Immature Gran % (Auto) 0.200, Neut % (Auto) 76.0 H, Lymph % (Auto) 15.7 L, [place] % (Auto) 7.7, Eos % (Auto) 0.0, Baso % (Auto) 0.4, Absolute Neuts (auto) 3.8, Absolute Lymphs (auto) 0.78 L, Nucleated RBC % 0 03/11/21 14:00: Sodium 131 L, Potassium 4.2, Chloride 96 L, Carbon Dioxide 27.0, Anion Gap 8, BUN 27 H, Creatinine 1.50 H, Estim Creat Clear Calc 54.07, Est GFR (MDRD) Af Amer 61, Est GFR (MDRD) Non-Af 51 L, BUN/Creatinine Ratio 18.0, Glucose 453 H*, Calcium 8.4 L, Total Bilirubin 0.50, AST 24, ALT 34, Alkaline Phosphatase 117, Total Protein 7.1, Albumin 3.5, Globulin 3.6, Albumin/Globulin Ratio 1.0 03/11/21 14:00: Lactic Acid 1.4 03/11/21 14:00: B-Natriuretic Peptide 322.4 H 03/11/21 15:39: PT 13.3, INR 1.1, APTT 32.2, D-Dimer Quant (PE/DVT) 1.05 H* 03/11/21 15:39: Urine Color Yellow, Urine Clarity Clear, Urine pH 5.0, Ur Specific [place] 1.020, Urine Protein 500 H, Urine Glucose (UA) 1000 H, Urine Ketones Negative, Urine Occult Blood 150 H, Urine Nitrite Negative, Urine Bilirubin Negative, Urine Urobilinogen Normal, Ur Leukocyte Esterase Negative, Urine RBC 0-5 SEEN, Urine WBC 0 SEEN, Ur Squamous Epith Cells 0 SEEN, Urine Bacteria 0 SEEN, Urine Mucus 0 SEEN 03/11/21 20:21: POC Glucose 252 H 03/12/21 03:45: WBC 5.1, RBC 4.05 L, Hgb 11.0 L, Hct 34.0 L, MCV 84.0, MCH 27.2, MCHC 32.4, RDW Std Deviation 36.3, RDW Coeff of [place] 11.9, Plt Count 147 L, MPV 11.9, Immature Gran % (Auto) 0.600, Neut % (Auto) 89.7 H, Lymph % (Auto) 6.5 L, [place] % (Auto) 3.0, Eos % (Auto) 0.0, Baso % (Auto) 0.2, Absolute Neuts (auto) 4.6, Absolute Lymphs (auto) 0.33 L, Nucleated RBC % 0 03/12/21 03:45: Sodium 132 L, Potassium 4.5, Chloride 96 L, Carbon Dioxide 27.0, Anion Gap 9, BUN 32 H, Creatinine 1.77 H, Estim Creat Clear Calc 45.83, Est GFR (MDRD) Af Amer 51 L, Est GFR (MDRD) Non-Af 42 L, BUN/Creatinine Ratio 18.1, Glucose 446 H, Calcium 7.7 L, Total Bilirubin 0.50, AST 31, ALT 34, Alkaline Phosphatase 115, Total Protein 6.8, Albumin 3.3, Globulin 3.5, Albumin/Globulin Ratio 0.9 03/12/21 08:21: POC Glucose > 500 H* Micro: Microbiology 03/11/21 15:39 Urine, Clean Catch Legionella Antigen - Final 03/11/21 15:39 Urine, Clean Catch Streptococcus pneumoniae Antigen (M - Final 03/11/21 14:51 Mucosa - Nose SARS-CoV-2 Antigen (Rapid) - Final SARS-CoV-2 (COVID 19) Radiology Impression Chest X-Ray 03/11/21 15:00 IMPRESSION: Findings consistent with pneumonia and mild vascular congestion. at 1526 Reported and signed by: Chance Panda MD Electronically Signed: Chance Panda MD at 15:24 EDT Tel , Service support , Charges/Coding Visit Charges Inpatient E&M: 36257 Init Hosp L3
[2021-03-12] MEDS: dexAMETHasone 10 MG/ML Vial 6 MG IV (09:50)
--- NOTE | 2021-03-12 10:00 | PCM.PN.HOSP ---
Subjective Subjective Had increase his oxygen to [place] overnight, currently on 50 L with an FiO2 of 72%. Unfortunately got his CTA yesterday because his kidney function was at 1.5, will obtain today while his kidney functions at 1.77 as long as he can tolerate being off the Arav[place] for the duration of the study. Objective Data Objective Data Vital Signs: Vital Signs Temp Pulse Resp BP Pulse Ox 98.5 F 94 19 H 179/103 H 89 03/12/21 08:00 03/12/21 09:00 03/12/21 09:00 03/12/21 09:00 03/12/21 09:00 Oxygen Flow Rate (L/min) 50 Oxygen Delivery Method Airvo Weight: 201 lb 0.985 oz Body Mass Index (BMI) 28.8 Intake & Output: Intake and Output for Last 24 Hours 03/11/21 03/12/21 03/13/21 03:59 03:59 03:59 Intake Total 990 / 1090 100 / 100 Output Total 200 / 450 550 / 550 Balance 790 / 640 -450 / -450 Lab / Micro Data Result Diagrams: 03/12/21 03:45 03/12/21 03:45 Labs: Laboratory Results - last 24 hr 03/11/21 14:00: WBC 5.0, RBC 4.17 L, Hgb 11.4 L, Hct 35.4 L, MCV 84.9, MCH 27.3, MCHC 32.2, RDW Std Deviation 36.4, RDW Coeff of Silvia 11.9, Plt Count 152, MPV 11.9, Immature Gran % (Auto) 0.200, Neut % (Auto) 76.0 H, Lymph % (Auto) 15.7 L, [place] % (Auto) 7.7, Eos % (Auto) 0.0, Baso % (Auto) 0.4, Absolute Neuts (auto) 3.8, Absolute Lymphs (auto) 0.78 L, Nucleated RBC % 0 03/11/21 14:00: Sodium 131 L, Potassium 4.2, Chloride 96 L, Carbon Dioxide 27.0, Anion Gap 8, BUN 27 H, Creatinine 1.50 H, Estim Creat Clear Calc 54.07, Est GFR (MDRD) Af Amer 61, Est GFR (MDRD) Non-Af 51 L, BUN/Creatinine Ratio 18.0, Glucose 453 H*, Calcium 8.4 L, Total Bilirubin 0.50, AST 24, ALT 34, Alkaline Phosphatase 117, Total Protein 7.1, Albumin 3.5, Globulin 3.6, Albumin/Globulin Ratio 1.0 03/11/21 14:00: Lactic Acid 1.4 03/11/21 14:00: B-Natriuretic Peptide 322.4 H 03/11/21 15:39: PT 13.3, INR 1.1, APTT 32.2, D-Dimer Quant (PE/DVT) 1.05 H* 03/11/21 15:39: Urine Color Yellow, Urine Clarity Clear, Urine pH 5.0, Ur Specific [place] 1.020, Urine Protein 500 H, Urine Glucose (UA) 1000 H, Urine Ketones Negative, Urine Occult Blood 150 H, Urine Nitrite Negative, Urine Bilirubin Negative, Urine Urobilinogen Normal, Ur Leukocyte Esterase Negative, Urine RBC 0-5 SEEN, Urine WBC 0 SEEN, Ur Squamous Epith Cells 0 SEEN, Urine Bacteria 0 SEEN, Urine Mucus 0 SEEN 03/11/21 20:21: POC Glucose 252 H 03/12/21 03:45: WBC 5.1, RBC 4.05 L, Hgb 11.0 L, Hct 34.0 L, MCV 84.0, MCH 27.2, MCHC 32.4, RDW Std Deviation 36.3, RDW Coeff of Silvia 11.9, Plt Count 147 L, MPV 11.9, Immature Gran % (Auto) 0.600, Neut % (Auto) 89.7 H, Lymph % (Auto) 6.5 L, [place] % (Auto) 3.0, Eos % (Auto) 0.0, Baso % (Auto) 0.2, Absolute Neuts (auto) 4.6, Absolute Lymphs (auto) 0.33 L, Nucleated RBC % 0 03/12/21 03:45: Sodium 132 L, Potassium 4.5, Chloride 96 L, Carbon Dioxide 27.0, Anion Gap 9, BUN 32 H, Creatinine 1.77 H, Estim Creat Clear Calc 45.83, Est GFR (MDRD) Af Amer 51 L, Est GFR (MDRD) Non-Af 42 L, BUN/Creatinine Ratio 18.1, Glucose 446 H, Calcium 7.7 L, Total Bilirubin 0.50, AST 31, ALT 34, Alkaline Phosphatase 115, Total Protein 6.8, Albumin 3.3, Globulin 3.5, Albumin/Globulin Ratio 0.9 03/12/21 08:21: POC Glucose > 500 H* Micro: Microbiology 03/11/21 15:39 Urine, Clean Catch Legionella Antigen - Final 03/11/21 15:39 Urine, Clean Catch Streptococcus pneumoniae Antigen (M - Final 03/11/21 14:51 Mucosa - Nose SARS-CoV-2 Antigen (Rapid) - Final SARS-CoV-2 (COVID 19) Radiography Diagnostic Testing: Radiology Impression Chest X-Ray 03/11/21 15:00 IMPRESSION: Findings consistent with pneumonia and mild vascular congestion. at 1526 Reported and signed by: Chance Panda MD Electronically Signed: Chance Panda MD at 15:24 EDT Tel , Service support , Physical Exam Const alert, oriented x3 and no apparent distress General Appearance: cooperative HEENT normocephalic and moist oral mucous membranes Eyes PERRL, EOMs intact bilaterally and conjunctivae normal Neck supple and no JVD Resp normal respiratory effort, no retractions, no use of accessory muscles and clear to auscultation bilaterally Effort and Inspection: tachypneic Auscultation: diminished lung sounds; Negative for crackles, rales, rhonchi or wheezes Cardio regular rhythm, S1 normal heart sound, S2 normal heart sound and no murmurs Rate: tachycardic GI soft to palpation, non-tender and non-distended; Negative for hepatosplenomegaly Extremity no clubbing, cyanosis or edema Skin no rashes or lesions noted Neuro no focal motor deficits and no sensory deficits noted Psych affect normal Appearance: appropriate Assessment & Plan Assessment/Plan (1) Pneumonia due to COVID-19 virus: (2) Acute and chronic respiratory failure with hypoxia: (3) Type 2 diabetes mellitus: QUALIFIERS: Diabetes mellitus tank terminal gauger insulin use: without tank terminal gauger use Diabetes mellitus complication status: with hyperglycemia Qualified Code(s): E11.65 - Type 2 diabetes mellitus with hyperglycemia PLAN: 1. Acute on chronic hypoxic respiratory failure secondary to COVID-19 pneumonia -Continue with Decadron and will start him on remdesivir given his symptoms over the last several days -We will transfer him to the ICU given his need for nonrebreather -D-dimer is elevated, he was given a dose of therapeutic Lovenox overnight will obtain a CTA if he is able to maintain his oxygen saturations off the air Vo -Chest x-ray consistent with bilateral pulmonary infiltrate and Covid -PCR was negative in February but rapid antigen is positive today and he states that he is unvaccinated and he would like to be intubated if necessary 2. Chronic diastolic CHF with pulmonary hypertension mild/HTN -Was supposed be discharged on Norvasc, does not appear to be compliant with this -He is allergic to lisinopril -EF in the beginning of February was of 60% with stage II diastolic dysfunction and RVSP of 36 mmHg -We will limit IV fluids 3. DM2 -We will place him on sliding scale insulin as well as long-acting insulin given the need for steroids -Landyu-Jonathon AC at bedtime DVT: Therapeutic Lovenox Charges/Coding Visit Charges Inpatient E&M: 59601 Subs Hosp L2
[2021-03-12] MEDS: Carvedilol 6.25 MG Tablet PO ×2 (10:27→21:29)
--- NOTE | 2021-03-12 10:30 | CASEMGMT ---
Palliative screening tool completed for [facility]. Patient meets criteria and hospitalist updated. No referral at this time.
[2021-03-12 12:40] LABS: Bedside Glucose 341 mg/dL (70-110)
--- NOTE | 2021-03-12 16:01 | CASEMGMT ---
MICHELLE HUANG Chart Review: patient was admitted 02/12-02/14/21 for CHF exacerbation. Patient was discharged home with new prescription for Norvasc and home oxygen was setup. See MICHELLE HUANG assessment from 02/13/21. Patient return 03/11/21 for SOB. Patient tested positive. MICHELLE HUANG called patient in his room. Patient states he was wearing his oxygen at home. Patient states he was taking Norvasc as prescribed at discharge, but then stopped as it was causing swelling in his hands. Patient had scheduled PCP appt the second week of February, but did not attend as he was having trouble breathing that day and requiring more oxygen. Patient states he called and updated his PCP office and did not get further instructions. Will monitor patient for increased oxygen needs at discharge and assist with discharge planning. Discharge Disposition: Patient to discharge home with family support and follow-up plans in place.
[2021-03-12 16:31] LABS: Bedside Glucose 283 mg/dL (70-110)
[2021-03-12 21:45] LABS: Bedside Glucose 302 mg/dL (70-110)
[2021-03-13] VITALS (31 sets, daily range): BP systolic 99–148; BP diastolic 73–92; PULSE 68–87; RESP 18–32; TEMP 36–37.3; O2SAT 89–100
[2021-03-13] MEDS: Acetaminophen 325 MG Tablet 650 MG PO ×2 (03:50→17:15)
[2021-03-13] MEDS: guaiFENesin Dm 10 ML UDC PO ×3 (03:50→23:26)
[2021-03-13 05:46] LABS: Absolute Lymphocyte Count 1.11 X10^3/uL (0.83-4.51); Absolute Neutrophil Count 4.7 X10^3/uL (2.0-7.7); Basophil# 0.01 X10^3/uL; Basophil% 0.2 % (0-1); Hematocrit 34.2 % (40-54); Hemoglobin 11.2 g/dL (13.0-16.5); Lymphocyte # 1.11 X10^3/ul (0.83-4.51); Lymphocyte % 17.6 % (19-41); Mean Corp Hgb Conc 32.7 g/dL (32-36); Mean Corpuscular Volume 82.4 fL (80-94); Mean Platelet Vol. 11.5 fl (6.2-12.0); Monocyte# 0.45 X10^3/uL; Monocyte% 7.1 % (0-10); NRBC Flagged by Analyzer 0 % (0-5); Neutrophil % 74.6 % (47-70); Platelet Count 144 K/mm3 (150-450); RBC Distribution Width SD 36.6 fl (35.1-43.9); Red Blood Count 4.15 M/mm3 (4.6-6.2); White Blood Count 6.3 K/mm3 (4.4-11.0)
[2021-03-13 06:08] LABS: AST(SGOT) 34 U/L (15-37); Alanine Aminotransfer ALT/SGPT 34 U/L (16-61); Albumin, Serum 3.2 g/dL (3.2-5.0); Alkaline Phosphatase 100 U/L (45-117); Anion Gap 7 (5-15); BUN 51 mg/dL (7-18); Calcium,Total 7.9 mg/dL (8.5-10.1); Chloride 102 mmol/L (98-107); Creatinine, Serum 1.82 mg/dL (0.70-1.30); EST Glomerular Filtration Rate 41 mL/min (>60); Est Glom Filt Rate - Afr Amer 49 mL/min (>60); Estimated Creatinine Clearance 44.57 ml/min; Globulin 3.3 g/dL (2.2-4.2); Glucose 156 mg/dL (74-106); Potassium 4.3 mmol/L (3.5-5.1); Protein, Total 6.5 g/dL (6.4-8.2); Sodium Level 136 mmol/L (136-145)
--- NOTE | 2021-03-13 07:22 | PCM.PN.INT ---
Assessment & Plan Assessment/Plan (1) Acute and chronic respiratory failure with hypoxia: (2) Pneumonia due to COVID-19 virus: (3) Type 2 diabetes mellitus: QUALIFIERS: Diabetes mellitus skilled nursing insulin use: without intermodal dispatcher use Diabetes mellitus complication status: with hyperglycemia Qualified Code(s): E11.65 - Type 2 diabetes mellitus with hyperglycemia (4) Peripheral neuropathy: QUALIFIERS: Peripheral neuropathy type: polyneuropathy, unspecified Qualified Code(s): G62.9 - Polyneuropathy, unspecified (5) Hypertensive urgency: PLAN: RECOMMENDATIONS: 1. Continue Decadron and Remdesivir 2. Supplemental oxygen as indicated. Patient is a full code 3. Continue insulin for blood sugar control and Coreg for hypertension 4. Wean oxygen as tolerated 5. Continue aggressive education to provide insight IMPRESSIONS: 1. Acute on chronic hypoxic respiratory failure secondary to COVID-19 pneumonia Patient with bilateral infiltrates and COVID-19 positive. Patient appears to be on day 4-5 of symptoms on presentation, so treatment with remdesivir and Decadron would be appropriate. Patient currently requiring Airvo for oxygenation status. Patient may continue to worsen over the next 5-7 days. Cannot exclude the need for BiPAP and possible intubation. CTA was negative, so will place patient on DVT prophylaxis. 2. Poorly controlled diabetes mellitus Likely not necessary to obtain a hemoglobin A1c as patient readily admits to poorly controlled blood sugars. Decadron will lead to significantly elevated blood sugars. Patient will be increased on basal insulin. Continue aggressive sliding scale. Likely okay to continue with p.o. diet for now, but this may change as respiratory status deteriorates. Blood sugars appear to be much better controlled and patient is not having any symptomatology despite reported history of diabetic coma with sugars of less than 200 3. Hypertensive urgency/chronic diastolic CHF with type II pulmonary hypertension Patient with very poor insight into his overall condition. Given patient's significantly elevated blood pressure and tachycardia in the setting of diastolic dysfunction, will add Coreg. Patient is reportedly allergic to lisinopril. Would limit IV fluids as this can exacerbate both congestive heart failure and respiratory failure in the setting of COVID-19. Patient will be given a small dose of Lasix today. 4. Poor insight/multiple hospitalizations Complicates care, management, recovery and prognosis. Dietitian to meet with patient to discuss diabetic control. Subjective Subjective Patient did okay overnight. Patient states that he has some vague abdominal pain that he associates with coughing. This is reproducible with palpation. Patient is not reporting any nausea, vomiting or other abdominal symptomatology. Patient subjectively feels his breathing is improved, but still has consistent coughing. Patient is not reporting any symptoms of hypoglycemia. Objective Data Objective Data Vital Signs: Vital Signs Temp Pulse Resp BP Pulse Ox 37.2 C 73 21 H 133/92 H 94 03/13/21 04:00 03/13/21 07:13 03/13/21 07:13 03/13/21 06:00 03/13/21 07:13 Oxygen Flow Rate (L/min) 60 Oxygen Delivery Method [place] Weight: 91.2 kg Body Mass Index (BMI) 28.8 Intake & Output: Intake and Output for Last 24 Hours 03/11/21 03/12/21 03/13/21 23:59 23:59 23:59 Intake Total 990 / 990 450 / 450 100 / 100 Output Total 200 / 200 1200 / 1200 Balance 790 / 790 -750 / -750 100 / 100 Medical Nutrition Assessment Dietitian: Nutrition Therapy Diagnosis Start: 03/12/21 07:51 Freq: Status: Active Protocol: Document 03/12/21 10:40 RMA (Rec: 03/12/21 10:40 RMA [id number]) Nutrition Malnutrition Evidence of Malnutrition Exists No Intake Problem Decreased Nutrient Needs (specify) Etiology for carbohydrates related to endocrine/metabolic dysfunction:DMII Signs/Symptoms as evidenced by HgbA1C 9.7% and blood glucose 446. Status Active Problem Inadequate Oral Intake Etiology related to acute illness and shortness of breath Signs/Symptoms as evidenced by ~50% of breakfast this morning. Status Active Problem Recommendation Dietitian Recommendations/Changes Will change diet to Carbohydrate-Controlled/ Cardiac. Will add 120ml Glucerna shake TID w/ meals. Adjust diet and ONS as needed to optimize nutrition given acute illness and compromised intake. Lab / Micro Data Result Diagrams: 03/13/21 05:20 03/13/21 05:20 Labs: Laboratory Results - last 24 hr 03/12/21 08:21: POC Glucose > 500 H* 03/12/21 12:36: POC Glucose 341 H 03/12/21 16:27: POC Glucose 283 H 03/12/21 21:28: POC Glucose 302 H 03/13/21 05:20: Sodium 136, Potassium 4.3, Chloride 102, Carbon Dioxide 27.0, Anion Gap 7, BUN 51 H, Creatinine 1.82 H, Estim Creat Clear Calc 44.57, Est GFR (MDRD) Af Amer 49 L, Est GFR (MDRD) Non-Af 41 L, BUN/Creatinine Ratio 28.0 H, Glucose 156 H, Calcium 7.9 L, Total Bilirubin 0.40, AST 34, ALT 34, Alkaline Phosphatase 100, Total Protein 6.5, Albumin 3.2, Globulin 3.3, Albumin/Globulin Ratio 1.0 03/13/21 05:20: WBC 6.3, RBC 4.15 L, Hgb 11.2 L, Hct 34.2 L, MCV 82.4, MCH 27.0, MCHC 32.7, RDW Std Deviation 36.6, RDW Coeff of Silvia 12.0, Plt Count 144 L, MPV 11.5, Immature Gran % (Auto) 0.500, Neut % (Auto) 74.6 H, Lymph % (Auto) 17.6 L, [place] % (Auto) 7.1, Eos % (Auto) 0.0, Baso % (Auto) 0.2, Absolute Neuts (auto) 4.7, Absolute Lymphs (auto) 1.11, Nucleated RBC % 0 Micro: Microbiology 03/11/21 15:39 Sputum, Expectorated/Coughed Gram Stain - Final 03/11/21 15:39 Sputum, Expectorated/Coughed Respiratory Culture - Preliminary Appears to be normal respiratory devon. Further studies to follow. 03/11/21 15:39 Urine, Clean Catch Legionella Antigen - Final 03/11/21 15:39 Urine, Clean Catch Streptococcus pneumoniae Antigen (M - Final 03/11/21 14:51 Mucosa - Nose SARS-CoV-2 Antigen (Rapid) - Final SARS-CoV-2 (COVID 19) Radiography Diagnostic Testing: Radiology Impression Chest CTA 03/12/21 07:08 IMPRESSION: 1. No evidence of pulmonary embolus 2. Bilateral upper and lower lobe consolidation greatest in the right lower lobe compatible with diffuse bilateral pneumonia. Individualized dose optimization techniques were used for this CT. at 1138 Reported and signed by: Low Freeman MD Electronically Signed: Low Freeman MD at 11:37 EDT Tel , Service support , Physical Exam Const alert, oriented x3 and no apparent distress Constitutional Narrative: On Air[place] General Appearance: cooperative HEENT normocephalic, head/scalp atraumatic and moist oral mucous membranes Eyes PERRL, EOMs intact bilaterally and conjunctivae normal Neck full ROM Lymph Lymphatic: no lymphadenopathy noted Chest inspection of chest normal Resp normal respiratory effort Resp Narrative: Diminished breath sounds Effort and Inspection: prolonged expiratory phase Auscultation: Negative for rales, rhonchi or wheezes Percussion: Negative for dullness Cardio regular rate, regular rhythm, S1 normal heart sound, S2 normal heart sound, no murmurs, no rub and no gallops GI normal to inspection, nondistended, normoactive bowel sounds GI Narrative: Mild tenderness with palpation across the abdominal musculature. No associated rebound no CVA tenderness Extremity General Extremity: edema bilateral (2+) lower extremity Skin no rashes or lesions noted Neuro oriented x3, CN's II-XII intact bilaterally and moves all extremities Psych cooperative and affect normal Charges/Coding Visit Charges Inpatient E&M: 70047 Subs Hosp L3
[2021-03-13] MEDS: Carvedilol 6.25 MG Tablet PO ×2 (08:26→21:49)
[2021-03-13] MEDS: Furosemide 20 MG Tablet PO (08:26)
[2021-03-13] MEDS: dexAMETHasone 10 MG/ML Vial 6 MG IV (08:27)
[2021-03-13] MEDS: Enoxaparin 40 MG/0.4 ML Syringe SC (08:27)
[2021-03-13] MEDS: 0.9% Saline Lock 10 ML Syringe IV (08:32)
[2021-03-13 08:40] LABS: Bedside Glucose 124 mg/dL (70-110)
--- NOTE | 2021-03-13 09:41 | PCM.PN.HOSP ---
Subjective Subjective No issues overnight, doing well. May be able to wean him off the air Vo today. Objective Data Objective Data Vital Signs: Vital Signs Temp Pulse Resp BP Pulse Ox 98.9 F 71 21 H 133/92 H 94 03/13/21 04:00 03/13/21 07:30 03/13/21 07:13 03/13/21 06:00 03/13/21 07:13 Oxygen Flow Rate (L/min) 60 Oxygen Delivery Method [place] Weight: 201 lb 0.985 oz Body Mass Index (BMI) 28.8 Intake & Output: Intake and Output for Last 24 Hours 03/12/21 03/13/21 03/14/21 03:59 03:59 03:59 Intake Total 990 / 1090 550 / 550 Output Total 200 / 450 1200 / 1200 Balance 790 / 640 -650 / -650 Medical Nutrition Assessment Dietitian: Nutrition Therapy Diagnosis Start: 03/12/21 07:51 Freq: Status: Active Protocol: Document 03/12/21 10:40 RMA (Rec: 03/12/21 10:40 RMA [id number]) Nutrition Malnutrition Evidence of Malnutrition Exists No Intake Problem Decreased Nutrient Needs (specify) Etiology for carbohydrates related to endocrine/metabolic dysfunction:DMII Signs/Symptoms as evidenced by HgbA1C 9.7% and blood glucose 446. Status Active Problem Inadequate Oral Intake Etiology related to acute illness and shortness of breath Signs/Symptoms as evidenced by ~50% of breakfast this morning. Status Active Problem Recommendation Dietitian Recommendations/Changes Will change diet to Carbohydrate-Controlled/ Cardiac. Will add 120ml Glucerna shake TID w/ meals. Adjust diet and ONS as needed to optimize nutrition given acute illness and compromised intake. Lab / Micro Data Result Diagrams: 03/13/21 05:20 03/13/21 05:20 Labs: Laboratory Results - last 24 hr 03/12/21 12:36: POC Glucose 341 H 03/12/21 16:27: POC Glucose 283 H 03/12/21 21:28: POC Glucose 302 H 03/13/21 05:20: Sodium 136, Potassium 4.3, Chloride 102, Carbon Dioxide 27.0, Anion Gap 7, BUN 51 H, Creatinine 1.82 H, Estim Creat Clear Calc 44.57, Est GFR (MDRD) Af Amer 49 L, Est GFR (MDRD) Non-Af 41 L, BUN/Creatinine Ratio 28.0 H, Glucose 156 H, Calcium 7.9 L, Total Bilirubin 0.40, AST 34, ALT 34, Alkaline Phosphatase 100, Total Protein 6.5, Albumin 3.2, Globulin 3.3, Albumin/Globulin Ratio 1.0 03/13/21 05:20: WBC 6.3, RBC 4.15 L, Hgb 11.2 L, Hct 34.2 L, MCV 82.4, MCH 27.0, MCHC 32.7, RDW Std Deviation 36.6, RDW Coeff of [place]via 12.0, Plt Count 144 L, MPV 11.5, Immature Gran % (Auto) 0.500, Neut % (Auto) 74.6 H, Lymph % (Auto) 17.6 L, [place] % (Auto) 7.1, Eos % (Auto) 0.0, Baso % (Auto) 0.2, Absolute Neuts (auto) 4.7, Absolute Lymphs (auto) 1.11, Nucleated RBC % 0 03/13/21 08:23: POC Glucose 124 H Micro: Microbiology 03/11/21 15:39 Urine, Clean Catch Urine Culture - Preliminary Culture exhibits no growth. 03/11/21 15:39 Sputum, Expectorated/Coughed Gram Stain - Final 03/11/21 15:39 Sputum, Expectorated/Coughed Respiratory Culture - Final Mixed normal respiratory devon. No Streptococcus pneumoniae, beta-hemolytic Streptococcus or Staphylococcus aureus isolated. 03/11/21 15:39 Urine, Clean Catch Legionella Antigen - Final 03/11/21 15:39 Urine, Clean Catch Streptococcus pneumoniae Antigen (M - Final 03/11/21 14:51 Mucosa - Nose SARS-CoV-2 Antigen (Rapid) - Final SARS-CoV-2 (COVID 19) Radiography Diagnostic Testing: Radiology Impression Chest CTA 03/12/21 07:08 IMPRESSION: 1. No evidence of pulmonary embolus 2. Bilateral upper and lower lobe consolidation greatest in the right lower lobe compatible with diffuse bilateral pneumonia. Individualized dose optimization techniques were used for this CT. at 1138 Reported and signed by: Low Freeman MD Electronically Signed: Low Freeman MD at 11:37 EDT Tel , Service support , Physical Exam Const alert, oriented x3 and no apparent distress General Appearance: cooperative HEENT normocephalic and moist oral mucous membranes Eyes PERRL, EOMs intact bilaterally and conjunctivae normal Neck supple and no JVD Resp normal respiratory effort, no retractions, no use of accessory muscles and clear to auscultation bilaterally Auscultation: diminished lung sounds; Negative for crackles, rales, rhonchi or wheezes Cardio regular rhythm, S1 normal heart sound, S2 normal heart sound and no murmurs Rate: tachycardic GI soft to palpation, non-tender and non-distended; Negative for hepatosplenomegaly Extremity no clubbing, cyanosis or edema Skin no rashes or lesions noted Neuro no focal motor deficits and no sensory deficits noted Psych affect normal Appearance: appropriate Assessment & Plan Assessment/Plan (1) Pneumonia due to COVID-19 virus: (2) Acute and chronic respiratory failure with hypoxia: (3) Type 2 diabetes mellitus: QUALIFIERS: Diabetes mellitus ocean transportation intermediary insulin use: without ocean transportation intermediary use Diabetes mellitus complication status: with hyperglycemia Qualified Code(s): E11.65 - Type 2 diabetes mellitus with hyperglycemia PLAN: 1. Acute on chronic hypoxic respiratory failure secondary to COVID-19 pneumonia -Continue with Decadron and will start him on remdesivir given his symptoms over the last several days -We will transfer him to the ICU given his need for nonrebreather -D-dimer is elevated, CTA is negative for PE, can put him on just prophylaxis -Chest x-ray consistent with bilateral pulmonary infiltrate and Covid -PCR was negative in February but rapid antigen is positive today and he states that he is unvaccinated and he would like to be intubated if necessary 2. Chronic diastolic CHF with pulmonary hypertension mild/HTN -Was supposed be discharged on Norvasc, does not appear to be compliant with this -He is allergic to lisinopril -EF in the beginning of February was of 60% with stage II diastolic dysfunction and RVSP of 36 mmHg -We will limit IV fluids 3. DM2 -We will place him on sliding scale insulin as well as long-acting insulin given the need for steroids -Accu-Cheks AC at bedtime DVT: Lovenox Charges/Coding Visit Charges Inpatient E&M: 52758 Subs Hosp L2
[2021-03-13] MEDS: Insulin Lispro 100 UNIT/ML INSULN.PEN SC ×3 (11:53→21:49)
[2021-03-13 12:05] LABS: Bedside Glucose 276 mg/dL (70-110)
[2021-03-13 16:56] LABS: Bedside Glucose 397 mg/dL (70-110)
[2021-03-13 22:05] LABS: Bedside Glucose 324 mg/dL (70-110)
[2021-03-14] VITALS (10 sets, daily range): BP systolic 124–147; BP diastolic 82–92; PULSE 71–88; RESP 18–20; TEMP 36.6–37.2; O2SAT 92–95
[2021-03-14] MEDS: INHALER, ASSIST DEVICES 1 EACH SPACER INHALATION ×3 (03:50→16:08)
[2021-03-14] MEDS: guaiFENesin Dm 10 ML UDC PO ×3 (06:41→20:34)
[2021-03-14 06:51] LABS: Bedside Glucose 219 mg/dL (70-110)
[2021-03-14 07:00] LABS: AST(SGOT) 40 U/L (15-37); Alanine Aminotransfer ALT/SGPT 40 U/L (16-61); Albumin, Serum 3.1 g/dL (3.2-5.0); Alkaline Phosphatase 101 U/L (45-117); Anion Gap 8 (5-15); BUN 62 mg/dL (7-18); BUN/Creat Ratio 36.5 RATIO (10-20); Calcium,Total 7.6 mg/dL (8.5-10.1); Chloride 102 mmol/L (98-107); EST Glomerular Filtration Rate 44 mL/min (>60); Est Glom Filt Rate - Afr Amer 53 mL/min (>60); Estimated Creatinine Clearance 47.71 ml/min; Globulin 3.2 g/dL (2.2-4.2); Glucose 223 mg/dL (74-106); Potassium 4.4 mmol/L (3.5-5.1); Protein, Total 6.3 g/dL (6.4-8.2); Sodium Level 136 mmol/L (136-145)
--- NOTE | 2021-03-14 09:36 | CPS ---
This therapist spoke with pt's nurse in regards to pt. Pt's nurse denied pt to be in any respiratory distress at this time. Pt's nurse stated that pt was doing well. Pt remains on 6lpm per nurse at this time. Pt's nurse was informed to let this therapist know if anything changes with the pt's respiratory status and that this therapist will respond if needed.
[2021-03-14] MEDS: dexAMETHasone 4 MG Tablet 6 MG PO (09:53)
[2021-03-14] MEDS: Carvedilol 6.25 MG Tablet PO ×2 (09:53→20:25)
[2021-03-14] MEDS: Enoxaparin 40 MG/0.4 ML Syringe SC (09:53)
--- NOTE | 2021-03-14 10:07 | PCM.PN.INT ---
Assessment & Plan Assessment/Plan (1) Acute and chronic respiratory failure with hypoxia: (2) Pneumonia due to COVID-19 virus: (3) Type 2 diabetes mellitus: QUALIFIERS: Diabetes mellitus longterm insulin use: without intermediate designer use Diabetes mellitus complication status: with hyperglycemia Qualified Code(s): E11.65 - Type 2 diabetes mellitus with hyperglycemia (4) Peripheral neuropathy: QUALIFIERS: Peripheral neuropathy type: polyneuropathy, unspecified Qualified Code(s): G62.9 - Polyneuropathy, unspecified (5) Hypertensive urgency: PLAN: RECOMMENDATIONS: 1. Continue Decadron and Remdesivir 2. Supplemental oxygen as indicated. Patient is a full code 3. Continue insulin for blood sugar control as patient permits and Coreg for hypertension 4. Wean oxygen as tolerated 5. Continue aggressive education to provide insight IMPRESSIONS: 1. Acute on chronic hypoxic respiratory failure secondary to COVID-19 pneumonia Patient with bilateral infiltrates and COVID-19 positive. Patient appears to be on day 4-5 of symptoms on presentation, so treatment with remdesivir and Decadron would be appropriate. Patient currently requiring only nasal cannula for oxygenation status. Patient likely will not worsen over the next 5-7 days. CTA was negative, so placed patient on DVT prophylaxis. 2. Poorly controlled diabetes mellitus Likely not necessary to obtain a hemoglobin A1c as patient readily admits to poorly controlled blood sugars. Decadron will lead to significantly elevated blood sugars. Patient has been very resistant to basal insulin. Continue aggressive sliding scale. Blood sugars appear to be much better controlled and patient is not having any symptomatology despite reported history of diabetic coma with sugars of less than 200. Patient continues to be a significant barrier to adequate control 3. Hypertensive urgency/chronic diastolic CHF with type II pulmonary hypertension Patient with very poor insight into his overall condition. Given patient's significantly elevated blood pressure and tachycardia in the setting of diastolic dysfunction, added Coreg and patient tolerating well. Patient is reportedly allergic to lisinopril. Would limit IV fluids as this can exacerbate both congestive heart failure and respiratory failure in the setting of COVID-19. Patient will be given a small dose of Lasix intermittently. 4. Poor insight/multiple hospitalizations Complicates care, management, recovery and prognosis. Dietitian to meet with patient to discuss diabetic control. Subjective Subjective Patient did okay overnight. Patient continues to report abdominal discomfort that he associates with a cough. Patient is also having soreness of his sternocleidomastoid. Patient continues to refuse Lantus therapy when his blood sugar is close to 200 to avoid complications. Patient has been tolerating p.o. fine. Patient has had some frequent bowel movements. Objective Data Objective Data Vital Signs: Vital Signs Temp Pulse Resp BP Pulse Ox 36.8 C 79 20 H 147/90 H 95 03/14/21 09:43 03/14/21 09:43 03/14/21 09:43 03/14/21 09:43 03/14/21 09:43 Oxygen Flow Rate (L/min) 5 Oxygen Delivery Method Nasal Cannula Weight: 91.2 kg Body Mass Index (BMI) 28.8 Intake & Output: Intake and Output for Last 24 Hours 03/12/21 03/13/21 03/14/21 23:59 23:59 23:59 Intake Total 450 / 450 1110 / 1110 Output Total 1200 / 1200 300 / 300 Balance -750 / -750 810 / 810 Medical Nutrition Assessment Dietitian: Nutrition Therapy Diagnosis Start: 03/12/21 07:51 Freq: Status: Active Protocol: Document 03/13/21 09:51 ZENAIDA (Rec: 03/13/21 09:51 SLA [id number]) Nutrition Malnutrition Evidence of Malnutrition Exists No Intake Problem Decreased Nutrient Needs (specify) Etiology for carbohydrates related to endocrine/metabolic dysfunction:DMII Signs/Symptoms as evidenced by steroid tx, HgbA1C 9.7% (02/13/21) and blood glucose 156 Status Active Problem Inadequate Oral Intake Etiology related to acute illness and shortness of breath Signs/Symptoms as evidenced by ~fair po intake. Status Active Problem Recommendation Dietitian Recommendations/Changes Will continue Carbohydrate- Controlled/Cardiac diet. Will continue 120ml Glucerna shake TID w/ meals. Adjust diet and ONS as needed to optimize nutrition given acute illness and compromised intake. Lab / Micro Data Result Diagrams: 03/13/21 05:20 03/14/21 06:10 Labs: Laboratory Results - last 24 hr 03/13/21 11:52: POC Glucose 276 H 03/13/21 16:43: POC Glucose 397 H 03/13/21 21:48: POC Glucose 324 H 03/14/21 06:10: Sodium 136, Potassium 4.4, Chloride 102, Carbon Dioxide 26.0, Anion Gap 8, BUN 62 H, Creatinine 1.70 H, Estim Creat Clear Calc 47.71, Est GFR (MDRD) Af Amer 53 L, Est GFR (MDRD) Non-Af 44 L, BUN/Creatinine Ratio 36.5 H, Glucose 223 H, Calcium 7.6 L, Total Bilirubin 0.40, AST 40 H, ALT 40, Alkaline Phosphatase 101, Total Protein 6.3 L, Albumin 3.1 L, Globulin 3.2, Albumin/Globulin Ratio 1.0 03/14/21 06:39: POC Glucose 219 H Micro: Microbiology 03/11/21 15:39 Urine, Clean Catch Urine Culture - Final Culture exhibits no growth. 03/11/21 14:50 Blood Culture (Wb) - Left Forearm Blood Culture - Preliminary No growth in 48 hours. 03/11/21 13:50 Blood Culture (Wb) - Arm Left Blood Culture - Preliminary No growth in 48 hours. 03/11/21 15:39 Sputum, Expectorated/Coughed Gram Stain - Final 03/11/21 15:39 Sputum, Expectorated/Coughed Respiratory Culture - Final Mixed normal respiratory devon. No Streptococcus pneumoniae, beta-hemolytic Streptococcus or Staphylococcus aureus isolated. 03/11/21 15:39 Urine, Clean Catch Legionella Antigen - Final 03/11/21 15:39 Urine, Clean Catch Streptococcus pneumoniae Antigen (M - Final 03/11/21 14:51 Mucosa - Nose SARS-CoV-2 Antigen (Rapid) - Final SARS-CoV-2 (COVID 19) Physical Exam Const alert, oriented x3 and no apparent distress Constitutional Narrative: On nasal cannula General Appearance: cooperative HEENT normocephalic, head/scalp atraumatic and moist oral mucous membranes Eyes PERRL, EOMs intact bilaterally and conjunctivae normal Neck full ROM Lymph Lymphatic: no lymphadenopathy noted Chest inspection of chest normal Resp normal respiratory effort Resp Narrative: Diminished breath sounds Effort and Inspection: prolonged expiratory phase Auscultation: Negative for rales, rhonchi or wheezes Percussion: Negative for dullness Cardio regular rate, regular rhythm, S1 normal heart sound, S2 normal heart sound, no murmurs, no rub and no gallops GI normal to inspection, nondistended, normoactive bowel sounds GI Narrative: Mild tenderness with palpation across the abdominal and sternocleidomastoid musculature. No associated rebound no CVA tenderness Extremity General Extremity: edema bilateral (2+) lower extremity Skin no rashes or lesions noted Neuro oriented x3, CN's II-XII intact bilaterally and moves all extremities Psych cooperative and affect normal Charges/Coding Visit Charges Inpatient E&M: 05961 Subs Hosp L2
[2021-03-14] MEDS: Insulin Lispro 100 UNIT/ML INSULN.PEN SC (11:18)
[2021-03-14 11:55] LABS: Bedside Glucose 304 mg/dL (70-110)
--- NOTE | 2021-03-14 12:19 | PN.HOSP_ITS ---
Subjective Subjective Doing well, no issues overnight. Maintaining his oxygen saturations on nasal cannula. He had to go to 6 L nasal cannula overnight, will attempt to wean throughout the day. May benefit from BiPAP at night while sleeping Objective Data Objective Data Vital Signs: Vital Signs Temp Pulse Resp BP Pulse Ox 98.2 F 79 20 H 147/90 H 95 03/14/21 09:43 03/14/21 09:43 03/14/21 09:43 03/14/21 09:43 03/14/21 09:45 Oxygen Flow Rate (L/min) 5 Oxygen Delivery Method Nasal Cannula Weight: 201 lb 0.985 oz Body Mass Index (BMI) 28.8 Intake & Output: Intake and Output for Last 24 Hours 03/13/21 03/14/21 03/15/21 03:59 03:59 03:59 Intake Total 550 / 550 1010 / 1010 Output Total 1200 / 1200 300 / 300 Balance -650 / -650 710 / 710 Medical Nutrition Assessment Dietitian: Nutrition Therapy Diagnosis Start: 03/12/21 0 7:51 Freq: Status: Active Protocol: Document 03/13/21 09:51 SLA (Rec: 03/13/21 09:51 SLA [id number]) Nutrition Malnutrition Evidence of Malnutrition Exists No Intake Problem Decreased Nutrient Needs (specify) Etiology for carbohydrates related to endocrine/metabolic dysfunction:DMII Signs/Symptoms as evidenced by steroid tx, HgbA1C 9.7% (02/13/21) and blood glucose 156 Status Active Problem Inadequate Oral Intake Etiology related to acute illness and shortness of breath Signs/Symptoms as evidenced by ~fair po intake. Status Active Problem Recommendation Dietitian Recommendations/Changes Will continue Carbohydrate- Controlled/Cardiac diet. Will continue 120ml Glucerna shake TID w/ meals. Adjust diet and ONS as needed to optimize nutrition given acute illness and compromised intake. Lab / Micro Data Result Diagrams: 03/13/21 05:20 03/15/21 06:40 Labs: Laboratory Results - last 24 hr 03/13/21 16:43: POC Glucose 397 H 03/13/21 21:48: POC Glucose 324 H 03/14/21 06:10: Sodium 136, Potassium 4.4, Chloride 102, Carbon Dioxide 26.0, Anion Gap 8, BUN 62 H, Creatinine 1.70 H, Estim Creat Clear Calc 47.71, Est GFR (MDRD) Af Amer 53 L, Est GFR (MDRD) Non-Af 44 L, BUN/Creatinine Ratio 36.5 H, Glucose 223 H, Calcium 7.6 L, Total Bilirubin 0.40, AST 40 H, ALT 40, Alkaline Phosphatase 101, Total Protein 6.3 L, Albumin 3.1 L, Globulin 3.2, Albumin/Globulin Ratio 1.0 03/14/21 06:39: POC Glucose 219 H 03/14/21 11:12: POC Glucose 304 H Micro: Microbiology 03/11/21 15:39 Urine, Clean Catch Urine Culture - Final Culture exhibits no growth. 03/11/21 14:50 Blood Culture (Wb) - Left Forearm Blood Culture - Preliminary No growth in 48 hours. 03/11/21 13:50 Blood Culture (Wb) - Arm Left Blood Culture - Preliminary No growth in 48 hours. 03/11/21 15:39 Sputum, Expectorated/Coughed Gram Stain - Final 03/11/21 15:39 Sputum, Expectorated/Coughed Respiratory Culture - Final Mixed normal respiratory devon. No Streptococcus pneumoniae, beta-hemolytic Streptococcus or Staphylococcus aureus isolated. 03/11/21 15:39 Urine, Clean Catch Legionella Antigen - Final 03/11/21 15:39 Urine, Clean Catch Streptococcus pneumoniae Antigen (M - Denita l 03/11/21 14:51 Mucosa - Nose SARS-CoV-2 Antigen (Rapid) - Final SARS-CoV-2 (COVID 19) Physical Exam Const alert, oriented x3 and no apparent distress General Appearance: cooperative HEENT normocephalic and moist oral mucous membranes Eyes PERRL, EOMs intact bilaterally and conjunctivae normal Neck supple and no JVD Resp normal respiratory effort, no retractions, no use of accessory muscles and clear to auscultation bilaterally Auscultation: diminished lung sounds; Negative for crackles, rales, rhonchi or wheezes Cardio regular rate, regular rhythm, S1 normal heart sound, S2 normal heart sound and no murmurs GI soft to palpation, non-tender and non-distended; Negative for hepatosplenomegaly Extremity General Extremity: edema; Negative for clubbing or cyanosis Skin no rashes or lesions noted Neuro no focal motor deficits and no sensory deficits noted Psych affect normal Appearance: appropriate Assessment & Plan Assessment/Plan (1) Pneumonia due to COVID-19 virus: (2) Acute and chronic respiratory failure with hypoxia: (3) Type 2 diabetes mellitus: QUALIFIERS: Diabetes mellitus complication status: with hyperglycemia Diabetes mellitus continuous churn buttermaker insulin use: without group home use Qualified Code(s): E11.65 - Type 2 diabetes mellitus with hyperglycemia PLAN: 1. Acute on chronic hypoxic respiratory failure secondary to COVID-19 pneumonia -Continue with Decadron and will start him on remdesivir given his symptoms over the last several days -Maintaining oxygen saturations on 5 to 6 L nasal cannula -D-dimer is elevated, CTA is negative for PE, can put him on just prophylaxis -Chest x-ray consistent with bilateral pulmonary infiltrate and Covid -PCR was negative in February but rapid antigen is positive today and he states that he is unvaccinated and he would like to be intubated if necessary 2. Chronic diastolic CHF with pulmonary hypertension mild/HTN -Was supposed be discharged on Norvasc, does not appear to be compliant with this -He is allergic to lisinopril -EF in the beginning of February was of 60% with stage II diastolic dysfunction and RVSP of 36 mmHg -We will limit IV fluids 3. DM2 -We will place him on sliding scale insulin as well as long-acting insulin given the need for steroids -Accu-Cheks AC at bedtime -He refuses insulin at times if his blood sugars below 200 as he thinks that that is a threat for diabetic coma, continued education in progress DVT: Lovenox Charges/Coding Visit Charges Inpatient E&M: 91356 Subs Hosp L2
[2021-03-14 16:15] LABS: Bedside Glucose 234 mg/dL (70-110)
[2021-03-14 21:41] LABS: Bedside Glucose 314 mg/dL (70-110)
[2021-03-15] VITALS (11 sets, daily range): BP systolic 132–159; BP diastolic 87–93; PULSE 75–83; RESP 18–20; TEMP 36.7–36.8; O2SAT 84–96
[2021-03-15] MEDS: guaiFENesin Dm 10 ML UDC PO ×3 (02:34→20:45)
[2021-03-15] MEDS: INHALER, ASSIST DEVICES 1 EACH SPACER INHALATION ×2 (02:34→20:45)
[2021-03-15 07:29] LABS: ALB/GLOB Ratio 0.8 RATIO (0.9-2.4); AST(SGOT) 35 U/L (15-37); Alanine Aminotransfer ALT/SGPT 36 U/L (16-61); Albumin, Serum 2.8 g/dL (3.2-5.0); Alkaline Phosphatase 99 U/L (45-117); Anion Gap 7 (5-15); BUN 62 mg/dL (7-18); BUN/Creat Ratio 40.3 RATIO (10-20); Calcium,Total 7.6 mg/dL (8.5-10.1); Chloride 105 mmol/L (98-107); Creatinine, Serum 1.54 mg/dL (0.70-1.30); EST Glomerular Filtration Rate 49 mL/min (>60); Est Glom Filt Rate - Afr Amer 59 mL/min (>60); Estimated Creatinine Clearance 52.67 ml/min; Globulin 3.3 g/dL (2.2-4.2); Glucose 98 mg/dL (74-106); Potassium 4.5 mmol/L (3.5-5.1); Protein, Total 6.1 g/dL (6.4-8.2); Sodium Level 137 mmol/L (136-145)
--- NOTE | 2021-03-15 08:08 | CPS ---
spoke with pt's nurse this morning and informed him to let this therapist know if anything changes with pt's respiratory status
--- NOTE | 2021-03-15 08:50 | PCM.PN.INT ---
Assessment & Plan Assessment/Plan (1) Acute and chronic respiratory failure with hypoxia: (2) Pneumonia due to COVID-19 virus: (3) Type 2 diabetes mellitus: QUALIFIERS: Diabetes mellitus mcc insulin use: without joint terminal attack controller use Diabetes mellitus complication status: with hyperglycemia Qualified Code(s): E11.65 - Type 2 diabetes mellitus with hyperglycemia (4) Peripheral neuropathy: QUALIFIERS: Peripheral neuropathy type: polyneuropathy, unspecified Qualified Code(s): G62.9 - Polyneuropathy, unspecified (5) Hypertensive urgency: PLAN: RECOMMENDATIONS: 1. Continue Decadron and Remdesivir 2. Supplemental oxygen as indicated. Patient is a full code 3. Continue insulin for blood sugar control as patient permits and Coreg for hypertension 4. Wean oxygen as tolerated 5. Continue aggressive education to provide insight 6. Potential discharge once patient able to tolerate 6 L or less with ambulation IMPRESSIONS: 1. Acute on chronic hypoxic respiratory failure secondary to COVID-19 pneumonia Patient with bilateral infiltrates and COVID-19 positive. Patient appears to be on day 4-5 of symptoms on presentation, so treatment with remdesivir and Decadron would be appropriate. Patient currently requiring only nasal cannula for oxygenation status. Patient likely will not worsen enough to require transfer to the intensive care unit. CTA was negative, so placed patient on DVT prophylaxis. Patient's poor insight does limit optimization. 2. Poorly controlled diabetes mellitus Likely not necessary to obtain a hemoglobin A1c as patient readily admits to poorly controlled blood sugars. Decadron will lead to significantly elevated blood sugars. Patient has been very resistant to basal insulin. Continue aggressive sliding scale. Blood sugars appear to be much better controlled and patient is not having any symptomatology despite reported history of diabetic coma with sugars of less than 200. Patient continues to be a significant barrier to adequate control 3. Hypertensive urgency/chronic diastolic CHF with type II pulmonary hypertension Patient with very poor insight into his overall condition. Given patient's significantly elevated blood pressure and tachycardia in the setting of diastolic dysfunction, added Coreg and patient tolerating well. Patient is reportedly allergic to lisinopril. Would limit IV fluids as this can exacerbate both congestive heart failure and respiratory failure in the setting of COVID-19. Patient will be given a small dose of Lasix intermittently. 4. Poor insight/multiple hospitalizations Complicates care, management, recovery and prognosis. Dietitian to meet with patient to discuss diabetic control. Subjective Subjective Patient feels subjectively improved compared to previous. Patient states he still having paroxysmal cough, but it is easier to control and less often. Patient states he is worried about getting clean, which means I am getting better. Objective Data Objective Data Vital Signs: Vital Signs Temp Pulse Resp BP Pulse Ox 36.8 C 75 18 132/89 H 92 03/15/21 02:30 03/15/21 07:00 03/15/21 02:30 03/15/21 02:30 03/15/21 02:30 Oxygen Flow Rate (L/min) 6 Oxygen Delivery Method Nasal Cannula Weight: 91.2 kg Body Mass Index (BMI) 28.8 Intake & Output: Intake and Output for Last 24 Hours 03/13/21 03/14/21 03/15/21 23:59 23:59 23:59 Intake Total 1110 / 1110 970 / 970 240 / 240 Output Total 300 / 300 Balance 810 / 810 970 / 970 240 / 240 Medical Nutrition Assessment Dietitian: Nutrition Therapy Diagnosis Start: 03/12/21 07:51 Freq: Status: Active Protocol: Document 03/13/21 09:51 ZENAIDA (Rec: 03/13/21 09:51 SLA [id number]) Nutrition Malnutrition Evidence of Malnutrition Exists No Intake Problem Decreased Nutrient Needs (specify) Etiology for carbohydrates related to endocrine/metabolic dysfunction:DMII Signs/Symptoms as evidenced by steroid tx, HgbA1C 9.7% (02/13/21) and blood glucose 156 Status Active Problem Inadequate Oral Intake Etiology related to acute illness and shortness of breath Signs/Symptoms as evidenced by ~fair po intake. Status Active Problem Recommendation Dietitian Recommendations/Changes Will continue Carbohydrate- Controlled/Cardiac diet. Will continue 120ml Glucerna shake TID w/ meals. Adjust diet and ONS as needed to optimize nutrition given acute illness and compromised intake. Lab / Micro Data Result Diagrams: 03/13/21 05:20 03/15/21 06:40 Labs: Laboratory Results - last 24 hr 03/14/21 11:12: POC Glucose 304 H 03/14/21 16:00: POC Glucose 234 H 03/14/21 20:13: POC Glucose 314 H 03/15/21 06:40: Sodium 137, Potassium 4.5, Chloride 105, Carbon Dioxide 25.0, Anion Gap 7, BUN 62 H, Creatinine 1.54 H, Estim Creat Clear Calc 52.67, Est GFR (MDRD) Af Amer 59 L, Est GFR (MDRD) Non-Af 49 L, BUN/Creatinine Ratio 40.3 H, Glucose 98, Calcium 7.6 L, Total Bilirubin 0.40, AST 35, ALT 36, Alkaline Phosphatase 99, Total Protein 6.1 L, Albumin 2.8 L, Globulin 3.3, Albumin/Globulin Ratio 0.8 L Micro: Microbiology 03/11/21 15:39 Urine, Clean Catch Urine Culture - Final Culture exhibits no growth. 03/11/21 14:50 Blood Culture (Wb) - Left Forearm Blood Culture - Preliminary No growth in 48 hours. 03/11/21 13:50 Blood Culture (Wb) - Arm Left Blood Culture - Preliminary No growth in 48 hours. 03/11/21 15:39 Sputum, Expectorated/Coughed Gram Stain - Final 03/11/21 15:39 Sputum, Expectorated/Coughed Respiratory Culture - Final Mixed normal respiratory devon. No Streptococcus pneumoniae, beta-hemolytic Streptococcus or Staphylococcus aureus isolated. 03/11/21 15:39 Urine, Clean Catch Legionella Antigen - Final 03/11/21 15:39 Urine, Clean Catch Streptococcus pneumoniae Antigen (M - Final 03/11/21 14:51 Mucosa - Nose SARS-CoV-2 Antigen (Rapid) - Final SARS-CoV-2 (COVID 19) Physical Exam Const alert, oriented x3 and no apparent distress Constitutional Narrative: On nasal cannula General Appearance: cooperative HEENT normocephalic, head/scalp atraumatic and moist oral mucous membranes Eyes PERRL, EOMs intact bilaterally and conjunctivae normal Neck full ROM Lymph Lymphatic: no lymphadenopathy noted Chest inspection of chest normal Resp normal respiratory effort Resp Narrative: Diminished breath sounds Effort and Inspection: prolonged expiratory phase Auscultation: Negative for rales, rhonchi or wheezes Percussion: Negative for dullness Cardio regular rate, regular rhythm, S1 normal heart sound, S2 normal heart sound, no murmurs, no rub and no gallops GI normal to inspection, nondistended, normoactive bowel sounds GI Narrative: Mild tenderness with palpation across the abdominal and sternocleidomastoid musculature. No associated rebound no CVA tenderness Extremity General Extremity: edema bilateral (2+) lower extremity Skin no rashes or lesions noted Neuro oriented x3, CN's II-XII intact bilaterally and moves all extremities Psych cooperative and affect normal Charges/Coding Visit Charges Inpatient E&M: 75029 Subs Hosp L3
[2021-03-15] MEDS: dexAMETHasone 4 MG Tablet 6 MG PO (09:56)
[2021-03-15] MEDS: Carvedilol 6.25 MG Tablet PO ×2 (09:56→20:45)
[2021-03-15] MEDS: Enoxaparin 40 MG/0.4 ML Syringe SC (09:56)
[2021-03-15 10:05] LABS: Bedside Glucose 120 mg/dL (70-110)
[2021-03-15 11:55] LABS: Bedside Glucose 95 mg/dL (70-110)
--- NOTE | 2021-03-15 12:53 | PCM.PN.HOSP ---
Subjective Subjective Doing well, he is ambulatory but notices it when he takes a shower does not have his oxygen on he does get short of breath still. Objective Data Objective Data Vital Signs: Vital Signs Temp Pulse Resp BP Pulse Ox 98.1 F 78 18 155/93 H 94 03/15/21 09:54 03/15/21 09:54 03/15/21 09:54 03/15/21 09:54 03/15/21 09:54 Oxygen Flow Rate (L/min) 5 Oxygen Delivery Method Nasal Cannula Weight: 201 lb 0.985 oz Body Mass Index (BMI) 28.8 Intake & Output: Intake and Output for Last 24 Hours 03/14/21 03/15/21 03/16/21 03:59 03:59 03:59 Intake Total 1010 / 1010 970 / 970 730 / 730 Output Total 300 / 300 Balance 710 / 710 970 / 970 729 / 729 Medical Nutrition Assessment Dietitian: Nutrition Therapy Diagnosis Start: 03/12/21 07:51 Freq: Status: Active Protocol: Document 03/13/21 09:51 ZENAIDA (Rec: 03/13/21 09:51 SLA [id number]) Nutrition Malnutrition Evidence of Malnutrition Exists No Intake Problem Decreased Nutrient Needs (specify) Etiology for carbohydrates related to endocrine/metabolic dysfunction:DMII Signs/Symptoms as evidenced by steroid tx, HgbA1C 9.7% (02/13/21) and blood glucose 156 Status Active Problem Inadequate Oral Intake Etiology related to acute illness and shortness of breath Signs/Symptoms as evidenced by ~fair po intake. Status Active Problem Recommendation Dietitian Recommendations/Changes Will continue Carbohydrate- Controlled/Cardiac diet. Will continue 120ml Glucerna shake TID w/ meals. Adjust diet and ONS as needed to optimize nutrition given acute illness and compromised intake. Lab / Micro Data Result Diagrams: 03/13/21 05:20 03/15/21 06:40 Labs: Laboratory Results - last 24 hr 03/14/21 16:00: POC Glucose 234 H 03/14/21 20:13: POC Glucose 314 H 03/15/21 06:40: Sodium 137, Potassium 4.5, Chloride 105, Carbon Dioxide 25.0, Anion Gap 7, BUN 62 H, Creatinine 1.54 H, Estim Creat Clear Calc 52.67, Est GFR (MDRD) Af Amer 59 L, Est GFR (MDRD) Non-Af 49 L, BUN/Creatinine Ratio 40.3 H, Glucose 98, Calcium 7.6 L, Total Bilirubin 0.40, AST 35, ALT 36, Alkaline Phosphatase 99, Total Protein 6.1 L, Albumin 2.8 L, Globulin 3.3, Albumin/Globulin Ratio 0.8 L 03/15/21 09:51: POC Glucose 120 H 03/15/21 11:45: POC Glucose 95 Micro: Microbiology 03/11/21 15:39 Urine, Clean Catch Urine Culture - Final Culture exhibits no growth. 03/11/21 14:50 Blood Culture (Wb) - Left Forearm Blood Culture - Preliminary No growth in 48 hours. 03/11/21 13:50 Blood Culture (Wb) - Arm Left Blood Culture - Preliminary No growth in 48 hours. 03/11/21 15:39 Sputum, Expectorated/Coughed Gram Stain - Final 03/11/21 15:39 Sputum, Expectorated/Coughed Respiratory Culture - Final Mixed normal respiratory devon. No Streptococcus pneumoniae, beta-hemolytic Streptococcus or Staphylococcus aureus isolated. 03/11/21 15:39 Urine, Clean Catch Legionella Antigen - Final 03/11/21 15:39 Urine, Clean Catch Streptococcus pneumoniae Antigen (M - Final 03/11/21 14:51 Mucosa - Nose SARS-CoV-2 Antigen (Rapid) - Final SARS-CoV-2 (COVID 19) Physical Exam Const alert, oriented x3 and no apparent distress General Appearance: cooperative HEENT normocephalic and moist oral mucous membranes Eyes PERRL, EOMs intact bilaterally and conjunctivae normal Neck supple and no JVD Resp normal respiratory effort, no retractions, no use of accessory muscles and clear to auscultation bilaterally Auscultation: diminished lung sounds; Negative for crackles, rales, rhonchi or wheezes Cardio regular rate, regular rhythm, S1 normal heart sound, S2 normal heart sound and no murmurs GI soft to palpation, non-tender and non-distended; Negative for hepatosplenomegaly Extremity General Extremity: edema; Negative for clubbing or cyanosis Skin no rashes or lesions noted Neuro no focal motor deficits and no sensory deficits noted Psych affect normal Appearance: appropriate Assessment & Plan Assessment/Plan (1) Pneumonia due to COVID-19 virus: (2) Acute and chronic respiratory failure with hypoxia: (3) Type 2 diabetes mellitus: QUALIFIERS: Diabetes mellitus penitentiary insulin use: without penitentiary use Diabetes mellitus complication status: with hyperglycemia Qualified Code(s): E11.65 - Type 2 diabetes mellitus with hyperglycemia PLAN: 1. Acute on chronic hypoxic respiratory failure secondary to COVID-19 pneumonia -Continue with Decadron and will start him on remdesivir given his symptoms over the last several days -Maintaining oxygen saturations on 5 to 6 L nasal cannula -D-dimer is elevated, CTA is negative for PE, can put him on just prophylaxis -Chest x-ray consistent with bilateral pulmonary infiltrate and Covid -PCR was negative in February but rapid antigen is positive today and he states that he is unvaccinated and he would like to be intubated if necessary 2. Chronic diastolic CHF with pulmonary hypertension mild/HTN -Was supposed be discharged on Norvasc, does not appear to be compliant with this -He is allergic to lisinopril -EF in the beginning of February was of 60% with stage II diastolic dysfunction and RVSP of 36 mmHg -We will limit IV fluids 3. DM2 -We will place him on sliding scale insulin as well as long-acting insulin given the need for steroids -Accu-Cheks AC at bedtime -He refuses insulin at times if his blood sugars below 200 as he thinks that that is a threat for diabetic coma DVT: Lovenox Charges/Coding Visit Charges Inpatient E&M: 16753 Subs Hosp L2
[2021-03-15] MEDS: Acetaminophen 325 MG Tablet 650 MG PO (14:46)
[2021-03-15 16:50] LABS: Bedside Glucose 175 mg/dL (70-110)
[2021-03-16] VITALS (11 sets, daily range): BP systolic 125–156; BP diastolic 84–99; PULSE 73–86; RESP 16–20; TEMP 36.7–36.9; O2SAT 92–95
[2021-03-16 00:06] LABS: Bedside Glucose 309 mg/dL (70-110)
[2021-03-16] MEDS: guaiFENesin Dm 10 ML UDC PO ×2 (02:59→15:12)
[2021-03-16] MEDS: INHALER, ASSIST DEVICES 1 EACH SPACER INHALATION ×3 (02:59→15:12)
[2021-03-16 07:15] LABS: ALB/GLOB Ratio 0.8 RATIO (0.9-2.4); AST(SGOT) 29 U/L (15-37); Alanine Aminotransfer ALT/SGPT 35 U/L (16-61); Albumin, Serum 2.7 g/dL (3.2-5.0); Alkaline Phosphatase 110 U/L (45-117); Anion Gap 7 (5-15); BUN 61 mg/dL (7-18); BUN/Creat Ratio 44.2 RATIO (10-20); Calcium,Total 7.6 mg/dL (8.5-10.1); Chloride 106 mmol/L (98-107); Creatinine, Serum 1.38 mg/dL (0.70-1.30); EST Glomerular Filtration Rate 56 mL/min (>60); Est Glom Filt Rate - Afr Amer 67 mL/min (>60); Estimated Creatinine Clearance 58.78 ml/min; Globulin 3.2 g/dL (2.2-4.2); Glucose 133 mg/dL (74-106); Potassium 4.7 mmol/L (3.5-5.1); Protein, Total 5.9 g/dL (6.4-8.2); Sodium Level 138 mmol/L (136-145)
[2021-03-16 08:31] LABS: Bedside Glucose 73 mg/dL (70-110)
[2021-03-16] MEDS: dexAMETHasone 4 MG Tablet 6 MG PO (10:55)
[2021-03-16] MEDS: Carvedilol 6.25 MG Tablet PO ×2 (10:55→21:48)
[2021-03-16] MEDS: Enoxaparin 40 MG/0.4 ML Syringe SC (10:55)
[2021-03-16] MEDS: Acetaminophen 325 MG Tablet 650 MG PO (11:00)
[2021-03-16] MEDS: 0.9% Saline Lock 10 ML Syringe IV (11:06)
[2021-03-16 11:15] LABS: Bedside Glucose 180 mg/dL (70-110)
--- NOTE | 2021-03-16 12:53 | PCM.PN.INT ---
Assessment & Plan Assessment/Plan (1) Pneumonia due to COVID-19 virus: PLAN: RECOMMENDATIONS: 1. Continue Decadron to complete 10-day treatment course. 2. Wean supplemental oxygen to maintain saturations at or above 90%. 3. Continue prophylactic Lovenox. 4. Encourage incentive spirometer use and mobilize patient as tolerated. IMPRESSIONS: 1. Acute hypoxemic respiratory failure secondary to COVID-19 pneumonia The patient has completed a treatment course of remdesivir and remains on Decadron. Plan to continue to wean supplemental oxygen to maintain saturations at or above 90%. Continue prophylactic Lovenox. Encourage incentive spirometer use and mobilize patient as tolerated. 2. Hypertension/diabetes mellitus/heart failure with preserved ejection fraction/pulmonary hypertension Complicates care, management, recovery and prognosis. Continue home medications as indicated. Monitor overall volume status and utilize as needed diuretic therapy to maintain euvolemic state. This note was generated with [employer] dictation software. It may contain incorrect words, spelling, and punctuation that were not noted in checking the note before signing. Subjective Subjective The patient was seen and examined at the bedside this morning. Events from the last 24 hours have been reviewed. The patient is currently afebrile, hemodynamically stable and maintaining appropriate oxygen saturations on 5 L/min via nasal cannula. The patient is currently documented to be overall net +3.5 L for the hospital admission. Objective Data Objective Data The patient's most recent lab work, culture data and imaging studies have all been personally reviewed. Coronavirus rapid antigen testing was positive on March 11. Vital Signs: Vital Signs Temp Pulse Resp BP Pulse Ox 98.3 F 82 18 156/98 H 92 03/16/21 10:53 03/16/21 10:53 03/16/21 10:53 03/16/21 10:53 03/16/21 10:53 Oxygen Flow Rate (L/min) 5 Oxygen Delivery Method Nasal Cannula Weight: 91.2 kg Body Mass Index (BMI) 28.8 Intake & Output: Intake and Output for Last 24 Hours 03/14/21 03/15/21 03/16/21 23:59 23:59 23:59 Intake Total 970 / 970 1410 / 1410 240 / 240 Output Total Balance 970 / 970 1409 / 1409 240 / 240 Medical Nutrition Assessment Dietitian: Nutrition Therapy Diagnosis Start: 03/12/21 07:51 Freq: Status: Active Protocol: Document 03/13/21 09:51 SLA (Rec: 03/13/21 09:51 SLA [id number]) Nutrition Malnutrition Evidence of Malnutrition Exists No Intake Problem Decreased Nutrient Needs (specify) Etiology for carbohydrates related to endocrine/metabolic dysfunction:DMII Signs/Symptoms as evidenced by steroid tx, HgbA1C 9.7% (02/13/21) and blood glucose 156 Status Active Problem Inadequate Oral Intake Etiology related to acute illness and shortness of breath Signs/Symptoms as evidenced by ~fair po intake. Status Active Problem Recommendation Dietitian Recommendations/Changes Will continue Carbohydrate- Controlled/Cardiac diet. Will continue 120ml Glucerna shake TID w/ meals. Adjust diet and ONS as needed to optimize nutrition given acute illness and compromised intake. Lab / Micro Data Attestation: I reviewed the patient's lab results. Result Diagrams: 03/13/21 05:20 03/16/21 05:45 Labs: Laboratory Results - last 24 hr 03/15/21 16:42: POC Glucose 175 H 03/15/21 20:37: POC Glucose 309 H 03/16/21 05:45: Sodium 138, Potassium 4.7, Chloride 106, Carbon Dioxide 25.0, Anion Gap 7, BUN 61 H, Creatinine 1.38 H, Estim Creat Clear Calc 58.78, Est GFR (MDRD) Af Amer 67, Est GFR (MDRD) Non-Af 56 L, BUN/Creatinine Ratio 44.2 H, Glucose 133 H, Calcium 7.6 L, Total Bilirubin 0.50, AST 29, ALT 35, Alkaline Phosphatase 110, Total Protein 5.9 L, Albumin 2.7 L, Globulin 3.2, Albumin/Globulin Ratio 0.8 L 03/16/21 08:15: POC Glucose 73 03/16/21 11:05: POC Glucose 180 H Micro: Microbiology 03/11/21 15:39 Urine, Clean Catch Urine Culture - Final Culture exhibits no growth. 03/11/21 14:50 Blood Culture (Wb) - Left Forearm Blood Culture - Preliminary No growth in 48 hours. 03/11/21 13:50 Blood Culture (Wb) - Arm Left Blood Culture - Preliminary No growth in 48 hours. 03/11/21 15:39 Sputum, Expectorated/Coughed Gram Stain - Final 03/11/21 15:39 Sputum, Expectorated/Coughed Respiratory Culture - Final Mixed normal respiratory devon. No Streptococcus pneumoniae, beta-hemolytic Streptococcus or Staphylococcus aureus isolated. 03/11/21 15:39 Urine, Clean Catch Legionella Antigen - Final 03/11/21 15:39 Urine, Clean Catch Streptococcus pneumoniae Antigen (M - Final 03/11/21 14:51 Mucosa - Nose SARS-CoV-2 Antigen (Rapid) - Final SARS-CoV-2 (COVID 19) Physical Exam Const alert and no apparent distress General Appearance: cooperative HEENT normocephalic, head/scalp atraumatic and moist oral mucous membranes Eyes PERRL, EOMs intact bilaterally and conjunctivae normal Neck supple General: trachea midline Resp normal respiratory effort Auscultation: diminished lung sounds; Negative for rales, rhonchi or wheezes Cardio regular rate and regular rhythm GI normal to inspection, nondistended, normoactive bowel sounds Extremity General Extremity: edema bilateral lower extremity Skin no rashes or lesions noted Neuro CN's II-XII intact bilaterally and no focal motor deficits Psych cooperative and affect normal Charges/Coding Visit Charges Inpatient E&M: 59285 Subs Hosp L2
--- NOTE | 2021-03-16 14:00 | PN.HOSP_ITS ---
Subjective Subjective Doing well, maintaining his oxygen sats on 5 to 6 L nasal cannula. Still short of breath if he does not wear his oxygen. Continue with Decadron. Objective Data Objective Data Vital Signs: Vital Signs Temp Pulse Resp BP Pulse Ox 98.3 F 82 18 156/98 H 92 03/16/21 10:53 03/16/21 10:53 03/16/21 10:53 03/16/21 10:53 03/16/21 10:53 Oxygen Flow Rate (L/min) 5 Oxygen Delivery Method Nasal Cannula Weight: 201 lb 0.985 oz Body Mass Index (BMI) 28.8 Intake & Output: Intake and Output for Last 24 Hours 03/15/21 03/16/21 03/17/21 03:59 03:59 03:59 Intake Total 970 / 970 1410 / 1410 640 / 640 Output Total Balance 970 / 970 1409 / 1409 640 / 640 Medical Nutrition Assessment Dietitian: Nutrition Therapy Diagnosis Start: 03/12/21 07:51 Freq: Status: Active Protocol: Document 03/13/21 09:51 SLA (Rec: 03/13/21 09:51 [facility] [id number]) Nutrition Malnutrition Evidence of Malnutrition Exists No Intake Problem Decreased Nutrient Needs (specify) Etiology for carbohydrates related to endocrine/metabolic dysfunction:DMII Signs/Symptoms as evidenced by steroid tx, HgbA1C 9.7% (02/13/21) and blood glucose 156 Status Active Problem Inadequate Oral Intake Etiology related to acute illness and shortness of breath Signs/Symptoms as evidenced by ~fair po intake. Status Active Problem Recommendation Dietitian Recommendations/Changes Will continue Carbohydrate- Controlled/Cardiac diet. Will continue 120ml Glucerna shake TID w/ meals. Adjust diet and ONS as needed to optimize nutrition given acute illness and compromised intake. Lab / Micro Data Result Diagrams: 03/13/21 05:20 03/16/21 05:45 Labs: Laboratory Results - last 24 hr 03/15/21 16:42: POC Glucose 175 H 03/15/21 20:37: POC Glucose 309 H 03/16/21 05:45: Sodium 138, Potassium 4.7, Chloride 106, Carbon Dioxide 25.0, Anion Gap 7, BUN 61 H, Creatinine 1.38 H, Estim Creat Clear Calc 58.78, Est GFR (MDRD) Af Amer 67, Est GFR (MDRD) Non-Af 56 L, BUN/Creatinine Ratio 44.2 H, Glucose 133 H, Calcium 7.6 L, Total Bilirubin 0.50, AST 29, ALT 35, Alkaline Phosphatase 110, Total Protein 5.9 L, Albumin 2.7 L, Globulin 3.2, Albumin/Globulin Ratio 0.8 L 03/16/21 08:15: POC Glucose 73 03/16/21 11:05: POC Glucose 180 H Micro: Microbiology 03/11/21 15:39 Urine, Clean Catch Urine Culture - Final Culture exhibits no growth. 03/11/21 14:50 Blood Culture (Wb) - Left Forearm Blood Culture - Preliminary No growth in 48 hours. 03/11/21 13:50 Blood Culture (Wb) - Arm Left Blood Culture - Preliminary No growth in 48 hours. 03/11/21 15:39 Sputum, Expectorated/Coughed Gram Stain - Final 03/11/21 15:39 Sputum, Expectorated/Coughed Respiratory Culture - Final Mixed normal respiratory devon. No Streptococcus pneumoniae, beta-hemolytic Streptococcus or Staphylococcus aureus isolated. 03/11/21 15:39 Urine, Clean Catch Legionella Antigen - Final 03/11/21 15:39 Urine, Clean Catch Streptococcus pneumoniae Antigen (M - Final 03/11/21 14:51 Mucosa - Nose SARS-CoV-2 Antigen (Rapid) - Final SARS-CoV-2 (COVID 19) Physical Exam Const alert, oriented x3 and no apparent distress General Appearance: cooperative HEENT normocephalic and moist oral mucous membranes Eyes PERRL, EOMs intact bilaterally and conjunctivae normal Neck supple and no JVD Resp normal respiratory effort, no retractions, no use of accessory muscles and clear to auscultation bilaterally Auscultation: diminished lung sounds; Negative for crackles, rales, rhonchi or wheezes Cardio regular rate, regular rhythm, S1 normal heart sound, S2 normal heart sound and no murmurs GI soft to palpation, non-tender and non-distended; Negative for hepatosplenomegaly Extremity no clubbing, cyanosis or edema General Extremity: edema; Negative for clubbing or cyanosis Skin no rashes or lesions noted Neuro no focal motor deficits and no sensory deficits noted Psych affect normal Appearance: appropriate Assessment & Plan Assessment/Plan (1) Pneumonia due to COVID-19 virus: (2) Acute and chronic respiratory failure with hypoxia: (3) Type 2 diabetes mellitus: QUALIFIERS: Diabetes mellitus complication status: with hyperglycemia Diabetes mellitus nursing home insulin use: without nursing home use Qualified Code(s): E11.65 - Type 2 diabetes mellitus with hyperglycemia PLAN: 1. Acute on chronic hypoxic respiratory failure secondary to COVID-19 pneumonia -Continue with Decadron and will start him on remdesivir given his symptoms over the last several days -Maintaining oxygen saturations on 5 to 6 L nasal cannula -D-dimer is elevated, CTA is negative for PE, can put him on just prophylaxis -Chest x-ray consistent with bilateral pulmonary infiltrate and Covid -PCR was negative in February but rapid antigen is positive today and he states that he is unvaccinated and he would like to be intubated if necessary -He is 3-1/2 L positive, may need Lasix-cannot wean off oxygen 2. Chronic diastolic CHF with pulmonary hypertension mild/HTN -Was supposed be discharged on Norvasc, does not appear to be compliant with this -He is allergic to lisinopril -EF in the beginning of February was of 60% with stage II diastolic dysfunction and RVSP of 36 mmHg -We will limit IV fluids 3. DM2 -We will place him on sliding scale insulin as well as long-acting insulin given the need for steroids -Accu-Cheks AC at bedtime -He refuses insulin at times if his blood sugars below 200 as he thinks that that is a threat for diabetic coma DVT: Dionisiox Charges/Coding Visit Charges Inpatient E&M: 11251 Subs Hosp L2
[2021-03-16] MEDS: Insulin Lispro 100 UNIT/ML INSULN.PEN SC (17:10)
[2021-03-16 18:58] LABS: Bedside Glucose 275 mg/dL (70-110)
[2021-03-16 22:05] LABS: Bedside Glucose 323 mg/dL (70-110)
[2021-03-17] VITALS (12 sets, daily range): BP systolic 146–157; BP diastolic 87–98; PULSE 77–83; RESP 16–18; TEMP 36.6–36.9; O2SAT 86–94
[2021-03-17] MEDS: guaiFENesin Dm 10 ML UDC PO ×2 (03:12→09:44)
[2021-03-17] MEDS: Insulin Lispro 100 UNIT/ML INSULN.PEN SC ×2 (09:40→12:31)
[2021-03-17] MEDS: Enoxaparin 40 MG/0.4 ML Syringe SC (09:44)
[2021-03-17] MEDS: Carvedilol 6.25 MG Tablet PO ×2 (09:44→22:16)
[2021-03-17] MEDS: Furosemide 20 MG/2 ML VIAL IV (09:44)
[2021-03-17] MEDS: dexAMETHasone 4 MG Tablet 6 MG PO (09:44)
[2021-03-17 10:06] LABS: Bedside Glucose 329 mg/dL (70-110)
[2021-03-17 12:45] LABS: Bedside Glucose 294 mg/dL (70-110)
--- NOTE | 2021-03-17 14:52 | PN.HOSP_ITS ---
Subjective Subjective Doing well, feels little bit better today. Still requiring 5 to 6 L nasal cannula to maintain his oxygen saturations. We will proceed with a dose of Lasix to see if that helps since he is 4 L positive. Objective Data Objective Data Vital Signs: Vital Signs Temp Pulse Resp BP Pulse Ox 98.4 F 79 16 154/98 H 92 03/17/21 12:37 03/17/21 12:37 03/17/21 12:37 03/17/21 12:37 03/17/21 12:37 Oxygen Flow Rate (L/min) 5 Oxygen Delivery Method Nasal Cannula Weight: 201 lb 0.985 oz Body Mass Index (BMI) 28.8 Intake & Output: Intake and Output for Last 24 Hours 03/16/21 03/17/21 03/18/21 03:59 03:59 03:59 Intake Total 1410 / 1410 1120 / 1120 720 / 720 Output Total Balance 1409 / 1409 1120 / 1120 720 / 720 Medical Nutrition Assessment Dietitian: Nutrition Therapy Diagnosis Start: 03/12/21 07:51 Freq: Status: Active Protocol: Document 03/16/21 14:58 RMA (Rec: 03/16/21 14:58 RMA [id number]) Nutrition Malnutrition Evidence of Malnutrition Exists No Intake Problem Decreased Nutrient Needs (specify) Etiology for carbohydrates related to endocrine/metabolic dysfunction:DMII Signs/Symptoms as evidenced by steroid tx, HgbA1C 9.7% (02/13/21) and blood glucose 156 Status Active Problem Recommendation Dietitian Recommendations/Changes Will continue Carbohydrate- Controlled/Cardiac diet. Will d/c 120ml Glucerna shake with meals. Lab / Micro Data Result Diagrams: 03/13/21 05:20 03/16/21 05:45 Labs: Laboratory Results - last 24 hr 03/16/21 17:08: POC Glucose 275 H 03/16/21 21:48: POC Glucose 323 H 03/17/21 09:37: POC Glucose 329 H 03/17/21 12:03: POC Glucose 294 H Micro: Microbiology 03/11/21 14:50 Blood Culture (Wb) - Left Forearm Blood Culture - Final No growth in 5 days. 03/11/21 13:50 Blood Culture (Wb) - Arm Left Blood Culture - Final No growth in 5 days. 03/11/21 15:39 Urine, Clean Catch Urine Culture - Final Culture exhibits no growth. 03/11/21 15:39 Sputum, Expectorated/Coughed Gram Stain - Final 03/11/21 15:39 Sputum, Expectorated/Coughed Respiratory Culture - Final Mixed normal respiratory devon. No Streptococcus pneumoniae, beta-hemolytic Streptococcus or Staphylococcus aureus isolated. 03/11/21 15:39 Urine, Clean Catch Legionella Antigen - Final 03/11/21 15:39 Urine, Clean Catch Streptococcus pneumoniae Antigen (M - Final 03/11/21 14:51 Mucosa - Nose SARS-CoV-2 Antigen (Rapid) - Final SARS-CoV-2 (COVID 19) Physical Exam Const alert, oriented x3 and no apparent distress General Appearance: cooperative HEENT normocephalic and moist oral mucous membranes Eyes PERRL, EOMs intact bilaterally and conjunctivae normal Neck supple and no JVD Resp normal respiratory effort, no retractions, no use of accessory muscles and clear to auscultation bilaterally Auscultation: crackles and diminished lung sounds; Negative for rales, rhonchi or wheezes Cardio regular rate, regular rhythm, S1 normal heart sound, S2 normal heart sound and no murmurs Rate: tachycardic GI soft to palpation, non-tender and non-distended; Negative for hepatosplenomegaly Extremity no clubbing, cyanosis or edema General Extremity: edema; Negative for clubbing or cyanosis Skin no rashes or lesions noted Neuro no focal motor deficits and no sensory deficits noted Psych affect normal Appearance: appropriate Assessment & Plan Assessment/Plan (1) Pneumonia due to COVID-19 virus: (2) Acute and chronic respiratory failure with hypoxia: (3) Type 2 diabetes mellitus: QUALIFIERS: Diabetes mellitus tank terminal gauger insulin use: without tank terminal gauger use Diabetes mellitus complication status: with hyperglycemia Qualified Code(s): E11.65 - Type 2 diabetes mellitus with hyperglycemia PLAN: 1. Acute on chronic hypoxic respiratory failure secondary to COVID-19 pneumonia -Continue with Decadron and will start him on remdesivir given his symptoms over the last several days -Maintaining oxygen saturations on 5 to 6 L nasal cannula -D-dimer is elevated, CTA is negative for PE, can put him on just prophylaxis -Chest x-ray consistent with bilateral pulmonary infiltrate and Covid -PCR was negative in February but rapid antigen is positive today and he states that he is unvaccinated and he would like to be intubated if necessary -Single dose of Lasix was given today, will continue to monitor may need to repeat in the morning 2. Chronic diastolic CHF with pulmonary hypertension mild/HTN -Was supposed be discharged on Norvasc, does not appear to be compliant with this -He is allergic to lisinopril -EF in the beginning of February was of 60% with stage II diastolic dysfunction and RVSP of 36 mmHg -We will limit IV fluids 3. DM2 -We will place him on sliding scale insulin as well as long-acting insulin given the need for steroids -Accu-Cheks AC at bedtime -He refuses insulin at times if his blood sugars below 200 as he thinks that that is a threat for diabetic coma DVT: Lovenox Charges/Coding Visit Charges Inpatient E&M: 23535 Subs Hosp L2
[2021-03-17] MEDS: INHALER, ASSIST DEVICES 1 EACH SPACER INHALATION (16:13)
[2021-03-17 16:45] LABS: Bedside Glucose 234 mg/dL (70-110)
[2021-03-18] VITALS (9 sets, daily range): BP systolic 150–164; BP diastolic 84–98; PULSE 77–83; RESP 18; TEMP 36.6–36.8; O2SAT 92–94
[2021-03-18] MEDS: Acetaminophen 325 MG Tablet 650 MG PO (03:40)
[2021-03-18 07:26] LABS: Bedside Glucose 403 mg/dL (70-110)
[2021-03-18 07:26] LABS: Bedside Glucose > 500 mg/dL (70-110)
[2021-03-18 07:50] LABS: Anion Gap 7 (5-15); BUN 52 mg/dL (7-18); BUN/Creat Ratio 40.6 RATIO (10-20); Calcium,Total 7.9 mg/dL (8.5-10.1); Chloride 104 mmol/L (98-107); Creatinine, Serum 1.28 mg/dL (0.70-1.30); EST Glomerular Filtration Rate 61 mL/min (>60); Est Glom Filt Rate - Afr Amer 74 mL/min (>60); Estimated Creatinine Clearance 63.37 ml/min; Glucose 332 mg/dL (74-106); Sodium Level 137 mmol/L (136-145)
[2021-03-18] MEDS: dexAMETHasone 4 MG Tablet 6 MG PO (10:24)
[2021-03-18] MEDS: Carvedilol 6.25 MG Tablet PO (10:24)
[2021-03-18] MEDS: Insulin Lispro 100 UNIT/ML INSULN.PEN 10 UNIT SC ×3 (10:27→16:26)
[2021-03-18] MEDS: Enoxaparin 40 MG/0.4 ML Syringe SC (10:29)
[2021-03-18 10:35] LABS: Bedside Glucose 322 mg/dL (70-110)
[2021-03-18] MEDS: Insulin Lispro 100 UNIT/ML INSULN.PEN SC ×2 (12:27→22:26)
[2021-03-18 12:40] LABS: Bedside Glucose 281 mg/dL (70-110)
--- NOTE | 2021-03-18 15:53 | PN.HOSP_ITS ---
Subjective Subjective Patient reports that he is feeling okay. He denies any significant shortness of breath. He states he desires his blood sugars to be over 200 because when he drops below 200 he is symptomatic. He admits that he does have oxygen at home as he was recently admitted and states he was told it was because of heart unique lure but is insistent he had Covid at that time. He has been wearing 2 to 3 L at home but states he takes it off when he ambulates. Objective Data Objective Data Vital Signs: Vital Signs Temp Pulse Resp BP Pulse Ox 97.8 F 83 18 160/98 H 94 03/18/21 09:30 03/18/21 15:00 03/18/21 09:30 03/18/21 09:30 03/18/21 09:30 Oxygen Flow Rate (L/min) 5 Oxygen Delivery Method Nasal Cannula Weight: 91.2 kg Body Mass Index (BMI) 28.8 Intake & Output: Intake and Output for Last 24 Hours 03/16/21 03/17/21 03/18/21 23:59 23:59 23:59 Intake Total 1120 / 1120 1440 / 1440 240 / 240 Balance 1120 / 1120 1440 / 1440 240 / 240 Medical Nutrition Assessment Dietitian: Nutrition Therapy Diagnosis Start: 03/12/21 07:51 Freq: Status: Active Protocol: Document 03/16/21 14:58 RMA (Rec: 03/16/21 14:58 RMA [id number]) Nutrition Malnutrition Evidence of Malnutrition Exists No Intake Problem Decreased Nutrient Needs (specify) Etiology for carbohydrates related to endocrine/metabolic dysfunction:DMII Signs/Symptoms as evidenced by steroid tx, HgbA1C 9.7% (02/13/21) and blood glucose 156 Status Active Problem Recommendation Dietitian Recommendations/Changes Will continue Carbohydrate- Controlled/Cardiac diet. Will d/c 120ml Glucerna shake with meals. Lab / Micro Data Result Diagrams: 03/13/21 05:20 03/18/21 06:15 Labs: Laboratory Results - last 24 hr 03/17/21 16:09: POC Glucose 234 H 03/17/21 22:13: POC Glucose > 500 H* 03/17/21 22:15: POC Glucose 403 H 03/18/21 06:15: Sodium 137, Potassium 5.0, Chloride 104, Carbon Dioxide 26.0, Anion Gap 7, BUN 52 H, Creatinine 1.28, Estim Creat Clear Calc 63.37, Est GFR (MDRD) Af Amer 74, Est GFR (MDRD) Non-Af 61, BUN/Creatinine Ratio 40.6 H, Glucose 332 H, Calcium 7.9 L 03/18/21 10:21: POC Glucose 322 H 03/18/21 12:26: POC Glucose 281 H Micro: Microbiology 03/11/21 14:50 Blood Culture (Wb) - Left Forearm Blood Culture - Final No growth in 5 days. 03/11/21 13:50 Blood Culture (Wb) - Arm Left Blood Culture - Final No growth in 5 days. 03/11/21 15:39 Urine, Clean Catch Urine Culture - Final Culture exhibits no growth. 03/11/21 15:39 Sputum, Expectorated/Coughed Gram Stain - Final 03/11/21 15:39 Sputum, Expectorated/Coughed Respiratory Culture - Final Mixed normal respiratory devon. No Streptococcus pneumoniae, beta-hemolytic Streptococcus or Staphylococcus aureus isolated. 03/11/21 15:39 Urine, Clean Catch Legionella Antigen - Final 03/11/21 15:39 Urine, Clean Catch Streptococcus pneumoniae Antigen (M - Final 03/11/21 14:51 Mucosa - Nose SARS-CoV-2 Antigen (Rapid) - Final SARS-CoV-2 (COVID 19) Physical Exam Const alert, oriented x3 and no apparent distress Constitutional Narrative: Upper middle-aged white male sitting on the edge of the bed, appears well, nontoxic Exam Limitations: no limitations HEENT head/scalp atraumatic and moist oral mucous membranes HEENT Narrative: No thrush Head and Scalp: normocephalic Resp no retractions and no use of accessory muscles Resp Narrative: Diffusely diminished but clear Auscultation: Negative for crackles, rales, rhonchi or wheezes Cardio regular rate, regular rhythm, S1 normal heart sound, S2 normal heart sound, no murmurs, no rub, no gallops, no clicks and no JVD GI normal to inspection, nondistended, normoactive bowel sounds, soft to palpation, non-tender and non-distended Extremity normal to inspection and no clubbing, cyanosis or edema Neuro oriented x3 and moves all extremities Sensorium / Orientation: awake and alert Speech: speech normal Assessment & Plan Assessment/Plan (1) Acute and chronic respiratory failure with hypoxia: (2) Pneumonia due to COVID-19 virus: (3) Type 2 diabetes mellitus: QUALIFIERS: Diabetes mellitus remote computer terminal operator insulin use: without snf use Diabetes mellitus complication status: with hyperglycemia Qualified Code(s): E11.65 - Type 2 diabetes mellitus with hyperglycemia PLAN: Acute on chronic hypoxic respiratory failure secondary to COVID-19 pneumonia -Patient was prescribed 2 to 3 L at home for which she was discharged on in February for diastolic heart failure and pulmonary artery hypertension -Currently is requiring 5L nasal cannula -SpO2 is 92-94 -Discussed with the patient that his oxygen requirements at discharge may be higher than they had been previously and he will need to be reevaluated -Patient tells me at this time that he has not been wearing his oxygen with ambulation at home because he does not like to do so, I recommended strongly to him that he continue wearing oxygen with ambulation as that is when his oxygen levels are likely to be lower than when he is at rest. -Continue Decadron day -Remdesivir has been completed -Continue IS -Continue prophylactic dose Lovenox -CTA was negative for PE but did show bilateral pulmonary diffuse infiltrates AIME -Improving -Appears that his baseline creatinine is 1.3-1.4 -Serum creatinine now down to 1.28 -Continue to monitor -Patient has completed remdesivir DM-2 -Blood sugars are currently uncontrolled but patient is insistent that they rem ain greater than 200 and resists attempts to decrease blood sugars further -Ideally goal blood sugar would be 140-180 -Continue current regimen HFpEF secondary to diastolic dysfunction/pulmonary artery hypertension (mild)- compensated -Continue Coreg 6.25 twice daily -Patient had echocardiogram done early in February that showed an EF of 60% and stage II diastolic dysfunction with a right ventricular systolic pressure of 36 mmHg -Lasix given yesterday--> hold further dosing at this time reevaluate tomorrow Hypertension -Blood sugars remain elevated despite Coreg -Increase Coreg to 12.5 mg twice daily -Continue to monitor DVT prophylaxis -Continue Lovenox CODE STATUS -Full code Charges/Coding Visit Charges Inpatient E&M: 12298 Subs Hosp L2
[2021-03-18 16:40] LABS: Bedside Glucose 269 mg/dL (70-110)
[2021-03-18] MEDS: Carvedilol 12.5 MG Tablet PO (22:25)
[2021-03-18 22:41] LABS: Bedside Glucose 333 mg/dL (70-110)
[2021-03-19] VITALS (11 sets, daily range): BP systolic 156–179; BP diastolic 93–104; PULSE 78–88; RESP 18–20; TEMP 36.6–36.8; O2SAT 80–94
[2021-03-19 07:21] LABS: Absolute Lymphocyte Count 1.04 X10^3/uL (0.83-4.51); Absolute Neutrophil Count 6.4 X10^3/uL (2.0-7.7); Basophil# 0.01 X10^3/uL; Basophil% 0.1 % (0-1); Eosinophil# 0.01 X10^3/uL; Eosinophils% 0.1 % (0-5); Hematocrit 36.7 % (40-54); Hemoglobin 11.6 g/dL (13.0-16.5); Lymphocyte # 1.04 X10^3/ul (0.83-4.51); Lymphocyte % 12.6 % (19-41); Mean Corp Hgb Conc 31.6 g/dL (32-36); Mean Corpuscular Hgb 26.4 pg (27.0-32.0); Mean Corpuscular Volume 83.6 fL (80-94); Mean Platelet Vol. 10.9 fl (6.2-12.0); Monocyte# 0.68 X10^3/uL; Monocyte% 8.2 % (0-10); NRBC Flagged by Analyzer 0 % (0-5); Neutrophil # 6.37 X10^3/uL (2.7-7.7); Neutrophil % 77.3 % (47-70); Platelet Count 236 K/mm3 (150-450); RBC Distribution Width CV 12.3 % (11.6-14.6); RBC Distribution Width SD 37.8 fl (35.1-43.9); Red Blood Count 4.39 M/mm3 (4.6-6.2); White Blood Count 8.3 K/mm3 (4.4-11.0)
[2021-03-19 07:50] LABS: Anion Gap 7 (5-15); BUN 48 mg/dL (7-18); BUN/Creat Ratio 42.9 RATIO (10-20); Calcium,Total 7.9 mg/dL (8.5-10.1); Chloride 104 mmol/L (98-107); Creatinine, Serum 1.12 mg/dL (0.70-1.30); EST Glomerular Filtration Rate 71 mL/min (>60); Est Glom Filt Rate - Afr Amer 86 mL/min (>60); Estimated Creatinine Clearance 72.42 ml/min; Glucose 326 mg/dL (74-106); Potassium 4.6 mmol/L (3.5-5.1); Sodium Level 138 mmol/L (136-145)
[2021-03-19] MEDS: Insulin Lispro 100 UNIT/ML INSULN.PEN 10 UNIT SC ×3 (09:50→16:12)
[2021-03-19] MEDS: Carvedilol 12.5 MG Tablet PO ×2 (09:52→16:12)
[2021-03-19] MEDS: dexAMETHasone 4 MG Tablet 6 MG PO (09:53)
[2021-03-19] MEDS: Enoxaparin 40 MG/0.4 ML Syringe SC (09:54)
[2021-03-19 10:10] LABS: Bedside Glucose 312 mg/dL (70-110)
--- NOTE | 2021-03-19 11:40 | PCM.PN.HOSP ---
Subjective Subjective Patient was ambulated on oxygen today but required 11 L nasal cannula to maintain oxygen saturation with ambulation. This was discussed with him and the fact that he not yet ready to discharge given his large oxygen requirements. He is accepting of this at this time. He has no other complaints. He does indicate he needs to get home to take care of his 12-year-old son. Objective Data Objective Data Vital Signs: Vital Signs Temp Pulse Resp BP Pulse Ox 98.2 F 81 18 179/103 H 92 03/19/21 09:45 03/19/21 11:00 03/19/21 09:45 03/19/21 09:45 03/19/21 09:56 Oxygen Flow Rate (L/min) [ 10 AMBULATING with Oxygen #1] Oxygen Flow Rate (L/min) [At 3 REST on Room Air] Oxygen Flow Rate (L/min) [At 5 REST with Oxygen] Oxygen Flow Rate (L/min) 2 Oxygen Delivery Method Nasal Cannula Weight: 91.2 kg Body Mass Index (BMI) 28.8 Intake & Output: Intake and Output for Last 24 Hours 03/17/21 03/18/21 03/19/21 23:59 23:59 23:59 Intake Total 1440 / 1440 480 / 880 800 / 800 Output Total 300 / 300 Balance 1440 / 1440 480 / 580 500 / 500 Medical Nutrition Assessment Dietitian: Nutrition Therapy Diagnosis Start: 03/12/21 07:51 Freq: Status: Active Protocol: Document 03/16/21 14:58 RMA (Rec: 03/16/21 14:58 RMA [id number]) Nutrition Malnutrition Evidence of Malnutrition Exists No Intake Problem Decreased Nutrient Needs (specify) Etiology for carbohydrates related to endocrine/metabolic dysfunction:DMII Signs/Symptoms as evidenced by steroid tx, HgbA1C 9.7% (02/13/21) and blood glucose 156 Status Active Problem Recommendation Dietitian Recommendations/Changes Will continue Carbohydrate- Controlled/Cardiac diet. Will d/c 120ml Glucerna shake with meals. Lab / Micro Data Result Diagrams: 03/19/21 06:25 03/19/21 06:25 Labs: Laboratory Results - last 24 hr 03/18/21 12:26: POC Glucose 281 H 03/18/21 16:24: POC Glucose 269 H 03/18/21 22:18: POC Glucose 333 H 03/19/21 06:25: WBC 8.3, RBC 4.39 L, Hgb 11.6 L, Hct 36.7 L, MCV 83.6, MCH 26.4 L, MCHC 31.6 L, RDW Std Deviation 37.8, RDW Coeff of Silvia 12.3, Plt Count 236, MPV 10.9, Immature Gran % (Auto) 1.700 H, Neut % (Auto) 77.3 H, Lymph % (Auto) 12.6 L, [place] % (Auto) 8.2, Eos % (Auto) 0.1, Baso % (Auto) 0.1, Absolute Neuts (auto) 6.4, Absolute Lymphs (auto) 1.04, Nucleated RBC % 0 03/19/21 06:25: Sodium 138, Potassium 4.6, Chloride 104, Carbon Dioxide 27.0, Anion Gap 7, BUN 48 H, Creatinine 1.12, Estim Creat Clear Calc 72.42, Est GFR (MDRD) Af Amer 86, Est GFR (MDRD) Non-Af 71, BUN/Creatinine Ratio 42.9 H, Glucose 326 H, Calcium 7.9 L 03/19/21 09:48: POC Glucose 312 H Micro: Microbiology 03/11/21 14:50 Blood Culture (Wb) - Left Forearm Blood Culture - Final No growth in 5 days. 03/11/21 13:50 Blood Culture (Wb) - Arm Left Blood Culture - Final No growth in 5 days. 03/11/21 15:39 Urine, Clean Catch Urine Culture - Final Culture exhibits no growth. 03/11/21 15:39 Sputum, Expectorated/Coughed Gram Stain - Final 03/11/21 15:39 Sputum, Expectorated/Coughed Respiratory Culture - Final Mixed normal respiratory devon. No Streptococcus pneumoniae, beta-hemolytic Streptococcus or Staphylococcus aureus isolated. 03/11/21 15:39 Urine, Clean Catch Legionella Antigen - Final 03/11/21 15:39 Urine, Clean Catch Streptococcus pneumoniae Antigen (M - Final 03/11/21 14:51 Mucosa - Nose SARS-CoV-2 Antigen (Rapid) - Final SARS-CoV-2 (COVID 19) Physical Exam Const alert, oriented x3 and no apparent distress Constitutional Narrative: Upper middle-aged white male sitting up in bed on FaceTime, appears comfortable, nontoxic, mild tachypnea with conversation Exam Limitations: no limitations HEENT head/scalp atraumatic and moist oral mucous membranes HEENT Narrative: No thrush Head and Scalp: normocephalic Resp normal respiratory effort, no retractions and no use of accessory muscles Resp Narrative: Diffusely diminished Auscultation: crackles; Negative for rales, rhonchi or wheezes Cardio regular rate, regular rhythm, S1 normal heart sound, S2 normal heart sound, no murmurs, no rub, no gallops, no clicks and no JVD Extremity normal to inspection and no clubbing, cyanosis or edema Peripheral Pulses: Yes pulses 2+ throughout Skin no rashes or lesions noted, no wounds, skin turgor normal, no jaundice, no petechiae and no mottling Neuro oriented x3, CN's II-XII intact bilaterally, moves all extremities and no focal motor deficits Sensorium / Orientation: awake and alert Speech: speech normal Assessment & Plan Assessment/Plan (1) Acute and chronic respiratory failure with hypoxia: (2) Pneumonia due to COVID-19 virus: (3) Type 2 diabetes mellitus: QUALIFIERS: Diabetes mellitus terminal make up operator insulin use: without terminal make up operator use Diabetes mellitus complication status: with hyperglycemia Qualified Code(s): E11.65 - Type 2 diabetes mellitus with hyperglycemia PLAN: Acute on chronic hypoxic respiratory failure secondary to COVID-19 pneumonia -Patient was prescribed 2 to 3 L at home for which she was discharged on in February for diastolic heart failure and pulmonary artery hypertension -Remains on 5L nasal cannula -SpO2 is 93-94% -Ambulation pulse ox was assessed and patient required 11 L nasal cannula to maintain oxygen saturation greater than 88% -Continue Decadron day 8 of -Remdesivir has been completed -Continue IS -Continue prophylactic dose Lovenox -CTA was negative for PE but did show bilateral pulmonary diffuse infiltrates -We will dose Lasix IV push 40 mg x 1 time -Check a.m. chest x-ray AIME -Resolved -Appears that his baseline creatinine is 1.3-1.4 -Continue to monitor DM-2 -Blood sugars are currently uncontrolled but patient is insistent that they remain greater than 200 and resists attempts to decrease blood sugars further -Will increase Lantus to 40 units twice daily as blood sugars are consistently in the 250-300+ range -Ideally goal blood sugar would be 140-180 -Continue current regimen HFpEF secondary to diastolic dysfunction/pulmonary artery hypertension (mild)-compensated -Continue Coreg 6.25 twice daily -Patient had echocardiogram done early in February that showed an EF of 60% and stage II diastolic dysfunction with a right ventricular systolic pressure of 36 mmHg -Lasix 40 mg IV push x1 dose Mild anemia -Hemoglobin is stable -No signs of acute blood loss Hypertension -Continue Coreg to 12.5 mg twice daily--> increased on 03/18/2021 -Monitor over the next 24 hours and if remains elevated will add Norvasc versus scheduled diuretic -Continue to monitor DVT prophylaxis -Continue Lovenox CODE STATUS -Full code
[2021-03-19] MEDS: Insulin Lispro 100 UNIT/ML INSULN.PEN SC ×3 (11:52→21:59)
[2021-03-19 12:06] LABS: Bedside Glucose 327 mg/dL (70-110)
[2021-03-19] MEDS: Furosemide 40 MG/4 ML Vial IV (14:47)
[2021-03-19] MEDS: 0.9% Saline Lock 10 ML Syringe IV (14:47)
[2021-03-19 16:21] LABS: Bedside Glucose 402 mg/dL (70-110)
[2021-03-19 22:25] LABS: Bedside Glucose 439 mg/dL (70-110)
[2021-03-20] VITALS (12 sets, daily range): BP systolic 152–181; BP diastolic 86–107; PULSE 77–85; RESP 18; TEMP 36.6–36.8; O2SAT 90–97
--- NOTE | 2021-03-20 02:20 | PCM.HOSP.N ---
Hospitalist Note Per Cathy MARTINEZ patient BP elevated 181/107. Upon review of vital signs patient has had elevated BPs 140s to 160's. Per review of Dr. Canseco's note Coreg was increased to 12.5 on 03/18/2021 with a plan to initiate amlodipine 03/20/2021 if elevated blood pressures continued. Following discussion with Dr. Sutherland will initiate Norvasc 5 mg p.o. daily now along with one-time IV hydralazine 5 mg.
[2021-03-20] MEDS: amLODIPine 5 MG Tablet PO (02:29)
[2021-03-20] MEDS: hydrALAZINE 20 MG/ML Vial 5 MG IV (02:29)
--- NOTE | 2021-03-20 06:16 | RAD_ITS ---
INDICATION: SOB EXAMINATION/TECHNIQUE: X-RAY - XR Chest 1 View COMPARISON: 03/11/2021 portable chest x-ray FINDINGS: LINES/DEVICES: None. LUNGS: Mild worsening patchy airspace disease bilateral lungs, predominantly involving the lung bases. No appreciable pleural effusion. No pneumothorax. No appreciable pulmonary vascular congestion. MEDIASTINUM AND CARDIOVASCULAR STRUCTURES: Cardiac silhouette not enlarged. Central airways and mediastinal contour are unremarkable. BONES AND SOFT TISSUES: Unremarkable. RAD/Chest 1 View (Portable) IMPRESSION: Worsening patchy airspace disease. Electronically Signed: Harjit Samuel DO at 20:34 EDT Tel , Service support ,
[2021-03-20 06:27] LABS: Anion Gap 5 (5-15); BUN 50 mg/dL (7-18); BUN/Creat Ratio 42.4 RATIO (10-20); Chloride 103 mmol/L (98-107); Creatinine, Serum 1.18 mg/dL (0.70-1.30); EST Glomerular Filtration Rate 67 mL/min (>60); Est Glom Filt Rate - Afr Amer 81 mL/min (>60); Estimated Creatinine Clearance 68.74 ml/min; Glucose 303 mg/dL (74-106); Potassium 4.9 mmol/L (3.5-5.1); Sodium Level 137 mmol/L (136-145)
[2021-03-20] MEDS: Insulin Lispro 100 UNIT/ML INSULN.PEN 10 UNIT SC ×4 (10:30→20:45)
[2021-03-20] MEDS: Insulin Lispro 100 UNIT/ML INSULN.PEN SC ×4 (10:31→20:33)
[2021-03-20] MEDS: dexAMETHasone 4 MG Tablet 6 MG PO (10:32)
[2021-03-20] MEDS: Carvedilol 12.5 MG Tablet PO ×2 (10:32→17:30)
[2021-03-20] MEDS: Furosemide 20 MG Tablet PO (10:33)
[2021-03-20] MEDS: amLODIPine 10 MG Tablet PO (10:33)
[2021-03-20] MEDS: Enoxaparin 40 MG/0.4 ML Syringe SC (10:34)
--- NOTE | 2021-03-20 10:49 | CASEMGMT ---
Green sheet left on chart for increased home oxygen need. Pt's home order is for 2L nc continuous and pt needs to be tested on at rest and with ambulation for discharge. Aspen MARTINEZ CM
[2021-03-20 11:06] LABS: Bedside Glucose 351 mg/dL (70-110)
--- NOTE | 2021-03-20 14:53 | PN.HOSP_ITS ---
Subjective Subjective Patient states he is feeling okay. Indicates again that he is anxious to go home. We discussed his oxygen needs are higher than we can supply him at home. He states he understands but would like to be tested with ambulation again. We did so and he required 8 L to maintain sats greater than 88%. Objective Data Objective Data Vital Signs: Vital Signs Temp Pulse Resp BP Pulse Ox 97.8 F 84 18 152/88 H 96 03/20/21 08:10 03/20/21 11:00 03/20/21 08:10 03/20/21 08:10 03/20/21 10:37 Oxygen Flow Rate (L/min) [ 8 AMBULATING with Oxygen #1] Oxygen Flow Rate (L/min) [At 3 REST on Room Air] Oxygen Flow Rate (L/min) [At 5 REST with Oxygen] Oxygen Flow Rate (L/min) 5 Oxygen Delivery Method Nasal Cannula Weight: 91.2 kg Body Mass Index (BMI) 28.8 Intake & Output: Intake and Output for Last 24 Hours 03/18/21 03/19/21 03/20/21 23:59 23:59 23:59 Intake Total 480 / 880 1160 / 1560 880 / 880 Output Total 300 / 300 Balance 480 / 580 860 / 1260 880 / 880 Medical Nutrition Assessment Dietitian: Nutrition Therapy Diagnosis Start: 03/12/21 07:51 Freq: Status: Active Protocol: Document 03/16/21 14:58 RMA (Rec: 03/16/21 14:58 RMA [id number]) Nutrition Malnutrition Evidence of Malnutrition Exists No Intake Problem Decreased Nutrient Needs (specify) Etiology for carbohydrates related to endocrine/metabolic dysfunction:DMII Signs/Symptoms as evidenced by steroid tx, HgbA1C 9.7% (02/13/21) and blood glucose 156 Status Active Problem Recommendation Dietitian Recommendations/Changes Will continue Carbohydrate- Controlled/Cardiac diet. Will d/c 120ml Glucerna shake with meals. Lab / Micro Data Result Diagrams: 03/19/21 06:25 03/20/21 05:05 Labs: Laboratory Results - last 24 hr 03/19/21 16:11: POC Glucose 402 H 03/19/21 21:57: POC Glucose 439 H 03/20/21 05:05: Sodium 137, Potassium 4.9, Chloride 103, Carbon Dioxide 29.0, Anion Gap 5, BUN 50 H, Creatinine 1.18, Estim Creat Clear Calc 68.74, Est GFR (M DRD) Af Amer 81, Est GFR (MDRD) Non-Af 67, BUN/Creatinine Ratio 42.4 H, Glucose 303 H, Calcium 8.0 L 03/20/21 10:29: POC Glucose 351 H Micro: Microbiology 03/11/21 14:50 Blood Culture (Wb) - Left Forearm Blood Culture - Final No growth in 5 days. 03/11/21 13:50 Blood Culture (Wb) - Arm Left Blood Culture - Final No growth in 5 days. 03/11/21 15:39 Urine, Clean Catch Urine Culture - Final Culture exhibits no growth. 03/11/21 15:39 Sputum, Expectorated/Coughed Gram Stain - Final 03/11/21 15:39 Sputum, Expectorated/Coughed Respiratory Culture - Final Mixed normal respiratory devon. No Streptococcus pneumoniae, beta-hemolytic Streptococcus or Staphylococcus aureus isolated. 03/11/21 15:39 Urine, Clean Catch Legionella Antigen - Final 03/11/21 15:39 Urine, Clean Catch Streptococcus pneumoniae Antigen (M - Final 03/11/21 14:51 Mucosa - Nose SARS-CoV-2 Antigen (Rapid) - Final SARS-CoV-2 (COVID 19) Assessment & Plan Assessment/Plan (1) Acute respiratory failure with hypoxia: (2) Pneumonia due to COVID-19 virus: (3) Benign essential hypertension: (4) Type 2 diabetes mellitus: QUALIFIERS: Diabetes mellitus manager terminal insulin use: without assisted use Diabetes mellitus complication status: with hyperglycemia Qualified Code(s): E11.65 - Type 2 diabetes mellitus with hyperglycemia PLAN: Acute on chronic hypoxic respiratory failure secondary to COVID-19 pneumonia -Patient was prescribed 2 to 3 L at home for which she was discharged on in February for diastolic heart failure and pulmonary artery hypertension -Remains on 5L nasal cannula -SpO2 is 96 % -Ambulation pulse ox was assessed and patient required 8 L nasal cannula to maintain oxygen saturation greater than 88% -Continue Decadron day 9 of 10 -Remdesivir has been completed -Continue IS -Continue prophylactic dose Lovenox -CTA was negative for PE but did show bilateral pulmonary diffuse infiltrates -We will start Lasix 20 mg daily -Chest x-ray shows persistent bilateral groundglass opacities that have progressed since his initial chest x-ray on admission AIME -Resolved -Appears that his baseline creatinine is 1.3-1.4 -Continue to monitor DM-2 -Blood sugars are currently uncontrolled but patient is insistent that they remain greater than 200 and resists attempts to decrease blood sugars further -Continue Lantus to 40 units twice daily as blood sugars are consistently in the 250-300+ range -Patient is to complete Decadron tomorrow and this should help improve blood sugar control -Ideally goal blood sugar would be 140-180 -Continue current regimen HFpEF secondary to diastolic dysfunction/pulmonary artery hypertension (mild)- compensated -Continue Coreg 12.5 twice daily -Patient had echocardiogram done early in February that showed an EF of 60% and stage II diastolic dysfunction with a right ventricular systolic pressure of 36 mmHg Mild anemia -Hemoglobin is stable -No signs of acute blood loss Hypertension -Continue Coreg to 12.5 mg twice daily--> increased on 03/18/2021 -Norvasc 10 mg added -Lasix 20 mg daily also added -Continue to monitor DVT prophylaxis -Continue Lovenox CODE STATUS -Full code
[2021-03-20 15:11] LABS: Bedside Glucose 366 mg/dL (70-110)
[2021-03-20 17:55] LABS: Bedside Glucose 393 mg/dL (70-110)
[2021-03-20 20:46] LABS: Bedside Glucose 476 mg/dL (70-110)
[2021-03-21] VITALS (7 sets, daily range): BP systolic 148–158; BP diastolic 84–95; PULSE 78–81; RESP 18; TEMP 36.7; O2SAT 87–95
[2021-03-21] MEDS: Furosemide 20 MG Tablet PO (08:20)
[2021-03-21] MEDS: amLODIPine 10 MG Tablet PO (08:20)
[2021-03-21] MEDS: Carvedilol 12.5 MG Tablet PO (08:20)
[2021-03-21] MEDS: Enoxaparin 40 MG/0.4 ML Syringe SC (08:20)
[2021-03-21 08:31] LABS: Bedside Glucose 190 mg/dL (70-110)
[2021-03-21] MEDS: Insulin Lispro 100 UNIT/ML INSULN.PEN 10 UNIT SC (11:53)
[2021-03-21] MEDS: Insulin Lispro 100 UNIT/ML INSULN.PEN SC (11:54)
[2021-03-21 11:55] LABS: Anion Gap 8 (5-15); BUN 52 mg/dL (7-18); BUN/Creat Ratio 44.8 RATIO (10-20); Calcium,Total 8.1 mg/dL (8.5-10.1); Chloride 102 mmol/L (98-107); Creatinine, Serum 1.16 mg/dL (0.70-1.30); EST Glomerular Filtration Rate 68 mL/min (>60); Est Glom Filt Rate - Afr Amer 82 mL/min (>60); Estimated Creatinine Clearance 69.92 ml/min; Glucose 296 mg/dL (74-106); Potassium 4.4 mmol/L (3.5-5.1); Sodium Level 137 mmol/L (136-145)
--- NOTE | 2021-03-21 13:00 | DS.PCM_ITS ---
Providers Date of Admission: 03/11/21 Primary Care Physician: Dr. Amish Han MD Consultations 03/11/21 22:07 Consult: Sash Finisher / Pulmonary Medicine Routine Consulting Provider: Pulmonary Medicine shad Watts Reason for Consult: Resp failure,covid EMERGENT Consult: No MD Notified: Yes Date Notified: 03/11/21 Time Notified: 22:07 Method of Notification: Text Reason For Visit: RESP FAILURE WITH PNEUMONIA Diagnosis Discharge Diagnosis (1) Acute respiratory failure with hypoxia: Status: Acute Code(s): J96.01 - Acute respiratory failure with hypoxia (2) Pneumonia due to COVID-19 virus: Status: Acute Code(s): U07.1 - COVID-19; J12.82 - Pneumonia due to coronavirus disease 2019 (3) Benign essential hypertension: Status: Chronic Code(s): I10 - Essential (primary) hypertension (4) Type 2 diabetes mellitus: Status: Chronic Code(s): E11.9 - Type 2 diabetes mellitus without complications Qualifiers: Diabetes mellitus middle or intermediate school principal insulin use: without mcfp use Diabetes mellitus complication status: with hyperglycemia Qualified Code(s): E11.65 - Type 2 diabetes mellitus with hyperglycemia Medications at Discharge Home Medications albuterol sulfate [Ventolin HFA] 2 puff INHALATION DAILY PRN 06/11/13 cholecalciferol (vitamin D3) [Vitamin D3] 500 unit PO DAILY 08/15/13 calcium carbonate [Calcium 500] 500 mg PO DAILY 02/12/21 cinnamon bark [Cinnamon] 500 mg PO DAILY 02/12/21 insulin lispro [Humalog KwikPen Insulin] 10 - 15 unit SUBCUT ACHS 02/12/21 magnesium oxide 500 mg PO DAILY 02/12/21 turmeric-turmeric root extract 2 cap PO DAILY 02/12/21 vitamin B complex 1 cap PO DAILY 02/12/21 amlodipine 10 mg PO DAILY #30 tab 03/21/21 carvedilol 12.5 mg PO BIDCM #60 tab 03/21/21 furosemide 20 mg PO DAILY #30 tab 03/21/21 Hospital Course Operations None Procedures - (CTA of chest negative for PE) Summary of Care Provided Minutes Spent on Discharge: 42 Hospital Course: Gerber Woodward is a 60-year-old male who presented to the emergency department on 03/11/2021 with fevers and chills as well as shortness of breath. He had recently been discharged from the hospital in the beginning of February with a acute exacerbation of heart failure with preserved ejection fraction and was able to be discharged on 2 L nasal cannula. He report did on admission that he had been short of breath since that time but had gotten worse over the last several days prior to admission. He also admitted to having a cough with some minimal sputum production. In the emergency department a chest x-ray was performed and showed bilateral interstitial changes that were consistent with Covid pneumonia. He had a Covid test that was positive in the emergency department. At that time he was started on remdesivir and Decadron. He was initially admitted to the intensive care unit given his significant oxygen requirements. Of note he had been noncompliant with his antihypertensives prior to admission that he was discharged on from his last admission. He was eventually able to be transferred out of the intensive care unit and to a general medical floor. He underwent daily trials of ambulatory pulse ox once he was on regular nasal cannula at rest. On day 10 of his hospitalization he was finally able to ambulate with oxygen saturations greater than 88% on 6 L nasal cannula. He was discharged home with oxygen and instructed to utilize 6 L with ambulation and 4 L at rest. Of note, during his hospitalization he showed significant noncompliance both with his oxygen and with the refusal to take increased doses of insulin for hyperglycemia related to Decadron use. He completed remdesivir and Decadron prior to discharge. His blood pressure remained elevated and he was continued on Norvasc. We also started Coreg 12.5 mg twice daily and low-dose Lasix. Prescriptions for these medications were sent to the pharmacy although I do have concern that he may be noncompliant with these. We discussed the importance of him obtaining a COVID-19 vaccination and all questions were answered with regards to the vaccine prior to discharge he is willing to consider it. He was informed he is to be in quarantine until 03/31/2021. He is to follow-up with his PCP and was given a referral for pulmono logy both of which are to be seen after he completes his quarantine. Discharge diagnoses: Acute on chronic hypoxic respiratory failure COVID-19 pneumonia HFpEF PAH Hypertension [id number] Anemia AIME-resolved Medical nonadherence Physical Exam Const alert, oriented x3 and no apparent distress Constitutional Narrative: Middle-aged white male sitting up in bed, appears comfortable, nontoxic, appears to have less respiratory distress than he has had recently General Appearance: cooperative, comfortable, well kempt and well developed HEENT normocephalic, head/scalp atraumatic, hearing grossly normal bilaterally and moist oral mucous membranes Mouth: oral and palatal mucosa normal Eyes PERRL, EOMs intact bilaterally and conjunctivae normal Neck no lymphadenopathy and supple Neck Narrative: Trachea midline Resp normal respiratory effort, no retractions, no use of accessory muscles and clear to auscultation bilaterally Resp Narrative: Diffusely diminished but clear Auscultation: Negative for crackles, rales, rhonchi or wheezes Cardio regular rate, regular rhythm, S1 normal heart sound, S2 normal heart sound, no murmurs, no rub, no gallops, no clicks and no JVD GI normal to inspection, nondistended, normoactive bowel sounds, soft to palpation, non-tender and non-distended; Negative for hepatosplenomegaly Extremity normal to inspection and no clubbing, cyanosis or edema Skin no rashes or lesions noted, no wounds, skin turgor normal and no jaundice Neuro oriented x3, CN's II-XII intact bilaterally, moves all extremities and no focal motor deficits Neuro Narrative: Bilateral lower extremity peripheral neuropathy Sensorium / Orientation: awake and alert Speech: speech normal Motor Exam: strength 5/5 throughout Psych affect normal Medical Records Data Medical Nutrition Assessment Dietitian: Nutrition Therapy Diagnosis Start: 03/12/21 07:51 Freq: Status: Active Protocol: Document 03/16/21 14:58 RMA (Rec: 03/16/21 14:58 RMA [id number]) Nutrition Malnutrition Evidence of Malnutrition Exists No Intake Problem Decreased Nutrient Needs (specify) Etiology for carbohydrates related to endocrine/metabolic dysfunction:DMII Signs/Symptoms as evidenced by steroid tx, HgbA1C 9.7% (02/13/21) and blood glucose 156 Status Active Problem Recommendation Dietitian Recommendations/Changes Will continue Carbohydrate- Controlled/Cardiac diet. Will d/c 120ml Glucerna shake with meals. Weight / BMI Weight Weight: 91.2 kg Body Mass Index (BMI) 28.8 ABG / Lab / Microbiology Data Result Diagrams: 03/19/21 06:25 03/21/21 11:18 Laboratory: Laboratory Results - last 24 hr 03/20/21 12:45: POC Glucose 366 H 03/20/21 17:27: POC Glucose 393 H 03/20/21 20:10: POC Glucose 476 H* 03/21/21 08:11: POC Glucose 190 H 03/21/21 09:16: Sodium Cancelled, Potassium Cancelled, Chloride Cancelled, Carbon Dioxide Cancelled, Anion Gap Cancelled, BUN Cancelled, Creatinine Cancelled, Estim Creat Clear Calc Cancelled, Est GFR (MDRD) Af Amer Cancelled, Est GFR (MDRD) Non-Af Cancelled, BUN/Creatinine Ratio Cancelled, Glucose Cancelled, Calcium Cancelled 03/21/21 11:18: Sodium 137, Potassium 4.4, Chloride 102, Carbon Dioxide 27.0, Anion Gap 8, BUN 52 H, Creatinine 1.16, Estim Creat Clear Calc 69.92, Est GFR (MDRD) Af Amer 82, Est GFR (MDRD) Non-Af 68, BUN/Creatinine Ratio 44.8 H, Glucose 296 H, Calcium 8.1 L Microbiology: Microbiology 03/11/21 14:50 Blood Culture (Wb) - Left Forearm Blood Culture - Final No growth in 5 days. 03/11/21 13:50 Blood Culture (Wb) - Arm Left Blood Culture - Final No growth in 5 days. 03/11/21 15:39 Urine, Clean Catch Urine Culture - Final Culture exhibits no growth. 03/11/21 15:39 Sputum, Expectorated/Coughed Gram Stain - Final 03/11/21 15:39 Sputum, Expectorated/Coughed Respiratory Culture - Final Mixed normal respiratory devon. No Streptococcus pneumoniae, beta-hemolytic Streptococcus or Staphylococcus aureus isolated. 03/11/21 15:39 Urine, Clean Catch Legionella Antigen - Final 03/11/21 15:39 Urine, Clean Catch Streptococcus pneumoniae Antigen (M - Final 03/11/21 14:51 Mucosa - Nose SARS-CoV-2 Antigen (Rapid) - Final SARS-CoV-2 (COVID 19) Radiography Diagnostic Testing: Radiology Impression Chest X-Ray 03/20/21 06:16 IMPRESSION: Worsening patchy airspace disease. Electronically Signed: Harjit Samuel DO at 20:34 EDT Tel , Service support , D/C Instructions Discharge Diet: Low fat / Low cholesterol and 1800 Calorie Control Diet Return to work on: 03/31/21 Meaningful Use Info Meaningful Use Diagnoses (Choose all that apply): None applicable Discharge Plan Admission Admit Date/Time: 03/11/21 15:32 Primary Reason for Your Visit: covid19 Attending Provider: Ashtyn Canseco Primary Care Provider: Amish Han Consulting Providers: Bernard Bermeo ; Phillip Pacheco ; Arleen Botello [employer] Instructions Patient Instructions: Coronavirus Disease 2019 (COVID-19): Overview, Coronavirus Disease 2019 (COVID-19): Caring for Yourself or Others Additional Instructions / Restrictions: 1. Maintain quarantine until 03/31/2021 2. Highly recommend vaccination for COVID-19 after 03/31/2021 Discharge Orders/Prescriptions Prescriptions: New amlodipine 10 mg Tablet 10 mg PO DAILY Qty: 30 RF: 0 carvedilol 12.5 mg Tablet 12.5 mg PO BIDCM Qty: 60 RF: 0 furosemide 20 mg Tablet 20 mg PO DAILY Qty: 30 RF: 0 Continued albuterol sulfate [Ventolin HFA] 1 INHALER inhaler 2 puff inhalation DAILY PRN (Reason: Bronchospasm) RF: 0 cholecalciferol (vitamin D3) [Vitamin D3] 1,000 UNIT capsule 500 unit PO DAILY RF: 0 calcium carbonate [Calcium 500] 500 mg calcium (1,250 mg) tablet 500 mg PO DAILY RF: 0 vitamin B complex Capsule 1 cap PO DAILY RF: 0 insulin lispro [Humalog KwikPen Insulin] 100 unit/mL Insulin Pen 10 - 15 unit SUBCUT ACHS RF: 0 cinnamon bark [Cinnamon] 500 mg capsule 500 mg PO DAILY RF: 0 turmeric-turmeric root extract 450-50 mg capsule 2 cap PO DAILY RF: 0 magnesium oxide 200 mg magnesium tablet 500 mg PO DAILY RF: 0 Referrals / Follow Up: Bernard Bermeo MD [STAFF PHYSICIAN] - Within 1 Month Amish Han MD [Primary Care Provider] - Within 2 Weeks Disposition Disposition (needs filled in before D/C Order can be placed): Home, Self Care Charges/Coding Visit Charges Inpatient E&M: 33647 Disch Hosp
--- NOTE | 2021-03-21 13:20 | PCM.DC ---
Discharge Instructions Diet Discharge Diet: Low fat / Low cholesterol and 1800 Calorie Control Diet Activity Return to work on:: 03/31/21 Follow Up Care Test Results: Test results from this visit will be discussed in further detail at your follow-up appointment, if applicable. Discharge Plan Admission Admit Date/Time: 03/11/21 15:32 Primary Reason for Your Visit: covid19 Attending Provider: Ashtyn Canseco Primary Care Provider: Amish Han Consulting Providers: Bernard Bermeo ; Phillip Pacheco ; Arleen Botello WATER MANAGER Instructions Patient Instructions: Coronavirus Disease 2019 (COVID-19): Overview, Coronavirus Disease 2019 (COVID-19): Caring for Yourself or Others Additional Instructions / Restrictions: 1. Maintain quarantine until 03/31/2021 2. Highly recommend vaccination for COVID-19 after 03/31/2021 Discharge Orders/Prescriptions Prescriptions: New amlodipine 10 mg Tablet 10 mg PO DAILY Qty: 30 RF: 0 carvedilol 12.5 mg Tablet 12.5 mg PO BIDCM Qty: 60 RF: 0 furosemide 20 mg Tablet 20 mg PO DAILY Qty: 30 RF: 0 Continued albuterol sulfate [Ventolin HFA] 1 INHALER inhaler 2 puff inhalation DAILY PRN (Reason: Bronchospasm) RF: 0 cholecalciferol (vitamin D3) [Vitamin D3] 1,000 UNIT capsule 500 unit PO DAILY RF: 0 calcium carbonate [Calcium 500] 500 mg calcium (1,250 mg) tablet 500 mg PO DAILY RF: 0 vitamin B complex Capsule 1 cap PO DAILY RF: 0 insulin lispro [Humalog KwikPen Insulin] 100 unit/mL Insulin Pen 10 - 15 unit SUBCUT ACHS RF: 0 cinnamon bark [Cinnamon] 500 mg capsule 500 mg PO DAILY RF: 0 turmeric-turmeric root extract 450-50 mg capsule 2 cap PO DAILY RF: 0 magnesium oxide 200 mg magnesium tablet 500 mg PO DAILY RF: 0 Referrals / Follow Up: Bernard Bermeo MD [STAFF PHYSICIAN] - Within 1 Month Amish Han MD [Primary Care Provider] - Within 2 Weeks Disposition Disposition (needs filled in before D/C Order can be placed): Home, Self Care
[2021-03-21 16:06] LABS: Bedside Glucose 308 mg/dL (70-110)
--- NOTE | 2021-03-23 14:33 | CASEMGMT ---
MICHELLE HUANG Discharge Follow-up Phone Call: BARBARAE: 14 Strata: 4 Call Date: 03/23/21 Discharge Date: 03/21/21 Time of Call: 1433 Duration: 1 min Admitting Diagnosis: Covid PNA RN REINA attempted to complete follow-up phone call after recent hospitalization. No answer, voice message left with return contact information.
== END 2021-03-21 15:31 | disposition home or self-care (01) | DRG 871 ==
LOC: ED 14:51 → PCU 16:28 → ICU 03-12 07:16 → PCU 03-12 13:40 → ICU 03-12 13:40 → PCU 03-16 09:56
PROVIDERS: Internal Medicine; Internal Medicine Critical Care Medicine; Admitting Provider Family Medicine; Emergency Provider Emergency Medicine; PCP Family Medicine; Visit Provider Internal Medicine
DX: A41.89 Other specified sepsis (principal); U07.1 COVID-19; J12.82 Pneumonia due to coronavirus disease 2019; J96.21 Acute and chronic respiratory failure with hypoxia; I50.32 Chronic diastolic (congestive) heart failure; N17.9 Acute kidney failure, unspecified; I11.0 Hypertensive heart disease with heart failure; I27.21 Secondary pulmonary arterial hypertension; E11.65 Type 2 diabetes mellitus with hyperglycemia; E11.42 Type 2 diabetes mellitus with diabetic polyneuropathy; I16.0 Hypertensive urgency; D64.9 Anemia, unspecified; F17.220 Nicotine dependence, chewing tobacco, uncomplicated; Z91.14 Patient's other noncompliance with medication regimen; Z91.19 Patient's noncompliance with other medical treatment and regimen; Z79.4 Long term (current) use of insulin; Z99.81 Dependence on supplemental oxygen; Z79.899 Other long term (current) drug therapy
CPT/HCPCS: 36415; 71045; 71275; 80048; 80053; 81001; 82962; 83605; 83880; 85025; 85379; 85610; 85730; 87040; 87070; 87086; 87205; 87426; 87449; 93005; 94640; 94660; 97110; 97116; 97162; 97166; 97535; 99251; 99285; 99406; J7040; J7050; Q9967; A4216; G0463; J1940

== ENCOUNTER → 2021-05-11 11:55 | Outpatient (CLI) | payer MEDICARE, SELFPAY ==
--- NOTE | 2021-05-11 11:58 | RAD_ITS ---
STUDY: X-RAY - RIGHT FOOT CLINICAL: Male, 61 years old. Foot pain. TECHNIQUE: 3 view(s) of the foot. COMPARISON: None. FINDINGS: Osteopenia. Normal talus, calcaneus, and tarsal bones. Normal visualized subtalar, talonavicular, calcaneocuboid, tarsal and tarsometatarsal articulations. Normal metatarsi. Mild arthrosis of the MTP and IP joints. The soft tissue structures are unremarkable. RAD/Foot min 3 Views IMPRESSION: Osteopenia with mild osteoarthritic changes. No acute abnormality, chondrocalcinosis, erosive changes or periostitis. Electronically Signed: Shravan Vinson MD at 13:27 EDT , Service support ,
== END ==
PROVIDERS: PCP Family Medicine; Referring Provider Family Medicine; Visit Provider Family Medicine
DX: M79.671 Pain in right foot (principal)
CPT/HCPCS: 73630

== ENCOUNTER 2021-11-10 11:58 | Outpatient (CLI) | payer MEDICARE, SELFPAY ==
--- NOTE | 2021-11-10 11:59 | RAD_ITS ---
INDICATION: SHORTNESS OF BREATH EXAMINATION/TECHNIQUE: X-RAY - XR Chest 2 Views COMPARISON: 03/20/2021. FINDINGS: LUNGS: Mixed interstitial and alveolar infiltrates in the lower lungs. Small bilateral pleural effusions. No pneumothorax. MEDIASTINUM: Unremarkable. CARDIAC SILHOUETTE: Not enlarged. BONES AND SOFT TISSUES: No acute abnormalities. IMPRESSION: Bilateral infiltrates and pleural effusions. Findings may be consistent with pneumonia or pulmonary edema. Electronically Signed: Kymberly Gaona MD at 5:28 EDT , RAD/Chest PA and Lateral
[2021-11-10 15:13] LABS: Absolute Lymphocyte Count 1.89 X10^3/uL (0.83-4.51); Absolute Neutrophil Count 4.4 X10^3/uL (2.0-7.7); Basophil# 0.05 X10^3/uL; Basophil% 0.7 % (0-1); Eosinophil# 0.21 X10^3/uL; Hematocrit 36.3 % (40-54); Hemoglobin 11.6 g/dL (13.0-16.5); Lymphocyte # 1.89 X10^3/ul (0.83-4.51); Lymphocyte % 26.8 % (19-41); Mean Corpuscular Hgb 27.7 pg (27.0-32.0); Mean Corpuscular Volume 86.6 fL (80-94); Mean Platelet Vol. 10.7 fl (6.2-12.0); Monocyte# 0.49 X10^3/uL; NRBC Flagged by Analyzer 0 % (0-5); Neutrophil # 4.37 X10^3/uL (2.7-7.7); Neutrophil % 62.1 % (47-70); Platelet Count 264 K/mm3 (150-450); RBC Distribution Width CV 12.9 % (11.6-14.6); RBC Distribution Width SD 40.8 fl (35.1-43.9); Red Blood Count 4.19 M/mm3 (4.6-6.2)
[2021-11-10 15:35] LABS: Hemoglobin A1c 13.1 % (3.8-5.6)
[2021-11-10 15:51] LABS: AST(SGOT) 13 U/L (15-37); Alanine Aminotransfer ALT/SGPT 33 U/L (16-61); Albumin, Serum 3.4 g/dL (3.2-5.0); Alkaline Phosphatase 140 U/L (45-117); Anion Gap 3 (5-15); BUN 38 mg/dL (7-18); BUN/Creat Ratio 18.4 RATIO (10-20); Calcium,Total 8.8 mg/dL (8.5-10.1); Chloride 104 mmol/L (98-107); Cholesterol 236 mg/dL (200); Creatinine, Serum 2.06 mg/dL (0.70-1.30); EST Glomerular Filtration Rate 35 mL/min (>60); Est Glom Filt Rate - Afr Amer 42 mL/min (>60); Globulin 3.3 g/dL (2.2-4.2); Glucose 457 mg/dL (74-106); High Density Lipoprotein 41 mg/dL; Potassium 4.4 mmol/L (3.5-5.1); Protein, Total 6.7 g/dL (6.4-8.2); Sodium Level 134 mmol/L (136-145); Triglycerides 150 mg/dL; Very Low Density Lipoprotein 30 mg/dL (5-40)
[2021-11-10 15:54] LABS: BNP,B-Type NATRIURETIC PEPTIDE 380.1 pg/mL (0-100)
== END 2021-11-10 23:59 | disposition home or self-care (01) ==
PROVIDERS: PCP Family Medicine; Referring Provider Family Medicine; Visit Provider Family Medicine
DX: E11.69 Type 2 diabetes mellitus with other specified complication (principal); R06.02 Shortness of breath
CPT/HCPCS: 36415; 71046; 80053; 80061; 83036; 83880; 85025

== ENCOUNTER 2022-01-04 17:55 | Inpatient (IN) | payer MEDICARE, SELFPAY ==
[2022-01-04] VITALS (13 sets, daily range): BP systolic 200–235; BP diastolic 112–170; PULSE 85–107; RESP 13–24; TEMP 36.5–37; O2SAT 94–99; BMI 35.0; BMI 25.4
--- NOTE | 2022-01-04 17:55 | CT_ITS ---
We are attempting to reach an attending provider to discuss findings. An addendum with communication details will be sent when the communication is complete. EXAM: CT HEAD WITHOUT INTRAVENOUS CONTRAST CLINICAL INDICATION: Neuro deficit, acute, stroke suspected TECHNIQUE: Multiple axial images were obtained of the head without intravenous contrast. This CT exam was performed using one or more of the following dose reduction techniques: automated exposure control, adjustment of the mA and/or kV according to patient size, and/or use of iterative reconstruction technique. This report was created using 5 Minutes report [employer] technology. COMPARISON: Jun 13 2020 7:32pm FINDINGS: BRAIN AND EXTRA-AXIAL SPACES: Chronic involutional changes of the brain. No intra- or extra-axial hemorrhage. No evidence of acute infarct. No intracranial mass or mass effect. There is preservation of the eason/white matter interface. Posterior fossa structures are unremarkable. Ventricles are appropriate for age. No hydrocephalus. Basal cisterns are patent. BONES/JOINTS: Unremarkable. No discrete lytic or blastic abnormalities. SINUSES: Unremarkable as visualized. Clear. MASTOID AIR CELLS: Unremarkable. Clear. ORBITS: Visualized globes, extraocular muscles, optic nerves and retrobulbar fat appear unremarkable. Aspects 10 CT/STROKE Brain/Head without Cont IMPRESSION: Chronic involutional changes of the brain. Previous noted mass in the brain cannot be seen currently without IV contrast. CF called and case discussed. Electronically Signed: José Luis Padilla MD at 18:14 EDT Reading Location ID and State: [facility] / [place] , Service support ,
--- NOTE | 2022-01-04 17:55 | EKG12_ITS ---
Test Reason : Blood Pressure : / mmHG Vent. Rate : 094 BPM Atrial Rate : 094 BPM P-R Int : 188 ms QRS Dur : 088 ms QT Int : 364 ms P-R-T Axes : 056 -37 059 degrees QTc Int : 455 ms Normal sinus rhythm Left axis deviation Abnormal ECG Confirmed by ARTHUR MONSON, YUMIKO ([id number]), photography editor STEFANIE REYEZ ([id number]) on 01/05/2022 1:32:58 PM Referred By: RABIA Confirmed By:YUMIKO GIBSON MD
--- NOTE | 2022-01-04 17:57 | EDS_ITS ---
HPI History of Present Illness Chief Complaint: Neuro S/Sx Narrative Narrative: Patient presents via ambulance, symptoms started about 3 hours prior to arrival, apparently he collapsed and now he has difficulty moving left arm and left leg and also some weakness and his right side. No noted seizure-like activity, the chart does not reveal a seizure history however apparently the son who is under the age of 18 told paramedics that the patient has a seizure history. Patient was quite hypertensive prior to arrival and was given labetalol via EMS. At this time, his eyes are closed he is slightly somnolent but arousable, it takes a few times to ask him questions but he will answer them relatively coherently, he is oriented x3. Per paramedics he was quite hypotensive and the blood sugar read high which means it was above 525. [facility] Medical History Acute and chronic respiratory failure with hypoxia Benign essential hypertension Brain mass CHF (congestive heart failure) CHF (congestive heart failure) Diabetes HTN (hypertension) Hyperglycemia Peripheral neuropathy Pneumonia due to COVID-19 virus Seizure Seizures Smoker Type 2 diabetes mellitus Home Medications albuterol sulfate [Ventolin HFA] 2 puff INHALATION DAILY PRN 06/11/13 [History Last Taken 02/12/21] cholecalciferol (vitamin D3) [Vitamin D3] 500 unit PO DAILY 08/15/13 [History Last Taken 03/11/21] calcium carbonate [Calcium 500] 500 mg PO DAILY 02/12/21 [History Last Taken 03/11/21] cinnamon bark [Cinnamon] 500 mg PO DAILY 02/12/21 [History Last Taken 03/11/21] insulin lispro [Humalog KwikPen Insulin] 10 - 15 unit SUBCUT ACHS 02/12/21 [History Last Taken 03/08/21] magnesium oxide 500 mg PO DAILY 02/12/21 [History Last Taken 03/10/21] turmeric-turmeric root extract 2 cap PO DAILY 02/12/21 [History Last Taken 03/10/21] vitamin B complex 1 cap PO DAILY 02/12/21 [History Last Taken 03/10/21] amlodipine 10 mg PO DAILY #30 tab 03/21/21 [Rx Last Taken Unknown] carvedilol 12.5 mg PO BIDCM #60 tab 03/21/21 [Rx Last Taken Unknown] furosemide 20 mg PO DAILY #30 tab 03/21/21 [Rx Last Taken Unknown] Allergy/AdvReac Type Severity Reaction Status Date / Time hydrocodone bitartrate AdvReac Mild HYPER Verified 01/04/22 18:12 [From Vicodin] lisinopril AdvReac Other Verified 01/04/22 18:12 Family History Other COPD (chronic obstructive pulmonary disease) Heart disease Surgical History Status post foot surgery Social History Smoking Status: Never smoker Smokeless tobacco user: chewing tobacco ROS ROS ED ROS Narrative Past medical history: Reviewed, significant for hyperlipidemia, hyperglycemia, history of V. tach, history of hypoxia. Patient has a history of hyperglycemia, CHF hypertension. Medications: Reviewed Social history: Noncontributory Review of systems: All systems negative except as indicated General: No reported fever Eyes: No visual changes ENT: No upper airway congestion, normal voice Neck: No neck pain Cardiovascular: No chest pain Respiratory: No shortness of breath or cough Gastrointestinal: No abdominal pain, nausea vomiting or diarrhea Genitourinary: No dysuria Musculoskeletal: Denies myalgias no difficulty with ambulation Skin: No rash Neurological: As in HPI Psych: No recent behavioral changes Hematologic: No easy bleeding or easy bruising EXAM Physical Exam Narrative Exam Narrative: Physical exam General: Patient appears uncomfortable. He is somnolent but arousable. Head: Normocephalic, Atraumatic Eyes: Conjunctiva not pale ENT: Slightly dry mucous membranes Neck: Supple, Nontender, No lymphadenopathy Cardiovascular: Regular rate, Regular rhythm Respiratory: No distress, CTA bilaterally Abdomen: Soft, Nontender, Nondistended Back: Nontender, Normal Inspection. Negative for: CVA tenderness Extremities: Chronic pain in the right upper extremity with some contractures, otherwise see NIH stroke scale Skin: Normal color, No rash Neurological: See NIH stroke scale Const Vital Signs: 01/04/22 17:55 01/04/22 18:02 01/04/22 18:07 Temperature 98.1 F Temperature Source Oral Pulse Rate 95 107 H Respiratory Rate 18 16 Blood Pressure 214/124 H 235/170 H Blood Pressure Mean 154 191 Pulse Ox 96 99 95 Oxygen Delivery Method Nasal Cannula Nasal Cannula Nasal Cannula Oxygen Flow Rate (L/min) 2 2 2 01/04/22 18:10 01/04/22 18:25 01/04/22 19:00 Temperature 98.1 F Temperature Source Oral Pulse Rate 89 85 Respiratory Rate 13 21 H Blood Pressure 205/121 H 203/137 H Blood Pressure Mean 149 159 Pulse Ox 98 97 Oxygen Delivery Method Nasal Cannula Nasal Cannula Oxygen Flow Rate (L/min) 2 2 STROKE Vital Signs/Narrative: Vital Signs Temp Pulse Resp BP Pulse Ox 01/04/22 19:00 85 21 H 203/137 H 97 01/04/22 18:25 89 13 205/121 H 98 01/04/22 18:10 98.1 F 01/04/22 18:07 95 01/04/22 18:02 107 H 16 235/170 H 99 01/04/22 17:55 98.1 F 95 18 214/124 H 96 NIHSS Initial: 1a Level of Consciousness: 1 1b LOC Questions (Score 2 if aphasic/stupor): 0 1c LOC Commands (Only score 1st attempt): 0 2 Best Gaze (If aphasic, use reflexive mvmts.): 0 3 Visual: 0 4 Facial Palsy: 1 5 Motor Arm Right (UN = amputation/fusion): 2 5 Motor Arm Left: 2 6 Motor Leg Right: 2 6 Motor Leg Left: 3 7 Limb ataxia (Only + if out of proportion): 0 8 Sensory (Aphasia/stupor=0 or 1, coma=2): 2 9 Best Language: 0 10 Dysarthria (mute, coma=2, intubated=UN): 1 11 Extinction and Inattention (only scored if +): 0 Total Score: 14 MDM MDM MDM Narrative Medical decision making narrative: Patient tells me he is back to baseline, I talked to neurology who did not recommend tPA based on his continuing hypertension despite multiple doses of labetalol, as well as hyperglycemia both of which are contraindications to tPA also he improved to baseline quite rapidly. I will admit him for stroke work-up inpatient. Lab Data Labs: Laboratory Results - last 24 hr 01/04/22 01/04/22 01/04/22 18:04 18:04 18:04 WBC 6.9 RBC 5.37 Hgb 14.3 Hct 43.3 MCV 80.6 MCH 26.6 L MCHC 33.0 RDW Std Deviation 34.6 L RDW Coeff of Silvia 11.9 Plt Count 223 MPV 11.3 Immature Gran % (Auto) 0.100 Neut % (Auto) 64.6 Lymph % (Auto) 26.4 [place] % (Auto) 5.3 Eos % (Auto) 2.7 Baso % (Auto) 0.9 Absolute Neuts (auto) 4.5 Absolute Lymphs (auto) 1.83 Nucleated RBC % 0 PT 12.0 INR 0.9 APTT 25.5 Sodium 133 L Potassium 4.2 Chloride 99 Carbon Dioxide 26.0 Anion Gap 8 BUN 49 H Creatinine 2.36 H Estim Creat Clear Calc 23.25 Est GFR (MDRD) Af Amer 36 L Est GFR (MDRD) Non-Af 30 L BUN/Creatinine Ratio 20.8 H Glucose 607 H* Calcium 9.9 Troponin I High Sens 19 POC Glucose 01/04/22 01/04/22 18:09 19:08 WBC RBC Hgb Hct MCV MCH MCHC RDW Std Deviation RDW Coeff of Silvia Plt Count MPV Immature Gran % (Auto) Neut % (Auto) Lymph % (Auto) [place] % (Auto) Eos % (Auto) Baso % (Auto) Absolute Neuts (auto) Absolute Lymphs (auto) Nucleated RBC % PT INR APTT Sodium Potassium Chloride Carbon Dioxide Anion Gap BUN Creatinine Estim Creat Clear Calc Est GFR (MDRD) Af Amer Est GFR (MDRD) Non-Af BUN/Creatinine Ratio Glucose Calcium Troponin I High Sens POC Glucose > 500 H* > 500 H* Radiography Diagnostic Testing: Clinical Impression(s) from Imaging Studies Brain CT 01/04/22 17:55 IMPRESSION: Chronic involutional changes of the brain. Previous noted mass in the brain cannot be seen currently without IV contrast. CF called and case discussed. Electronically Signed: José Luis Padilla MD at 18:14 EDT , ADDENDUM: 01/04/22 1972 IMPRESSION: Chronic involutional changes of the brain. Previous noted mass in the brain cannot be seen currently without IV contrast. CF called and case discussed. N.B. : The above Results were Read Back by José Luis Padilla MD to Hans Prasad MD, and understanding confirmed on 01/04/2022 18:17:46 (ET). Electronically Signed: José Luis Padilla MD at 18:14 EDT , Head/Neck CTA 01/04/22 17:59 IMPRESSION: 1. Bilateral pleural effusions. 2. There is mild atherosclerotic plaque formation of the origin of the right and left internal carotid artery with less than 50% cross sectional diameter stenosis. ALL ABOVE CRITERIA BY NASCET. 3. There is calcified plaque formation of the right cavernous carotid artery, with a mild stenosis (less than 50%). There is calcified plaque formation of the left cavernous carotid artery, with a mild stenosis (less than 50%). ALL ABOVE CRITERIA BY NASCET. 4. 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 Electronically Signed: José Luis Padilla MD at 18:34 EDT , Chest X-Ray 01/04/22 18:38 IMPRESSION: There are bilateral pleural effusions. There are bilateral infiltrates. Electronically Signed: José Luis Padilla MD at 19:13 EDT , Critical Care Time Critical care time (excluding procedures): 30-74 minutes and - (Critical care time 30 minutes. Patient was a stroke team, I spent time discussing with neurology, time documenting,, time repeating NIH stroke scales and rechecking on the patient. I also was involved in critical decision making about possibility of tPA.) Discharge Plan Triage Chief Complaint: Neuro S/Sx ED Provider: Hans Prasad Dx/Rx/DC Orders Clinical Impression: Stroke-like symptom, Acute hyperglycemia, Hypertensive urgency Prescriptions: No Action albuterol sulfate [Ventolin HFA] 1 INHALER inhaler 2 puff inhalation DAILY PRN (Reason: Bronchospasm) RF: 0 cholecalciferol (vitamin D3) [Vitamin D3] 1,000 UNIT capsule 500 unit PO DAILY RF: 0 calcium carbonate [Calcium 500] 500 mg calcium (1,250 mg) tablet 500 mg PO DAILY RF: 0 vitamin B complex Capsule 1 cap PO DAILY RF: 0 insulin lispro [Humalog KwikPen Insulin] 100 unit/mL Insulin Pen 10 - 15 unit SUBCUT ACHS RF: 0 cinnamon bark [Cinnamon] 500 mg capsule 500 mg PO DAILY RF: 0 turmeric-turmeric root extract 450-50 mg capsule 2 cap PO DAILY RF: 0 magnesium oxide 200 mg magnesium tablet 500 mg PO DAILY RF: 0 amlodipine 10 mg Tablet 10 mg PO DAILY Qty: 30 RF: 0 carvedilol 12.5 mg Tablet 12.5 mg PO BIDCM Qty: 60 RF: 0 furosemide 20 mg Tablet 20 mg PO DAILY Qty: 30 RF: 0 Primary Care Provider: Amish Han Referrals: Amish Han MD [Primary Care Provider] - Disposition Disposition: Acute Care Hospital [facility]
--- NOTE | 2022-01-04 17:59 | CT_ITS ---
EXAM: CT ANGIOGRAPHY HEAD AND NECK WITH INTRAVENOUS CONTRAST CLINICAL INDICATION: cva TECHNIQUE: [place]/head and neck CT angiography protocol performed with intravenous contrast. This CT exam was performed using one or more of the following dose reduction techniques: automated exposure control, adjustment of the mA and/or kV according to patient size, and/or use of iterative reconstruction technique. This report was created using [employer] report generation technology. MIP reconstructed images were created and reviewed. CONTRAST: IV 100mL [id number] RADIATION DOSE: CTDIvol = 19.48 mGy, DLP = 662.94 mGy-cm COMPARISON: None. FINDINGS: HEAD: RIGHT ANTERIOR CEREBRAL ARTERY: Unremarkable. No significant stenosis at the visualized segments. Anterior communicating artery is present. No aneurysm. RIGHT MIDDLE CEREBRAL ARTERY: Unremarkable. No significant stenosis at the visualized segments. No aneurysm. RIGHT POSTERIOR CEREBRAL ARTERY: Unremarkable. No occlusion or significant stenosis. No aneurysm. RIGHT INTRACRANIAL INTERNAL CAROTID ARTERY: See below. RIGHT INTRACRANIAL VERTEBRAL ARTERY: Unremarkable. No significant stenosis. No dissection or occlusion. LEFT ANTERIOR CEREBRAL ARTERY: Unremarkable. No significant stenosis at the visualized segments. No aneurysm. LEFT MIDDLE CEREBRAL ARTERY: Unremarkable. No significant stenosis at the visualized segments. No aneurysm. LEFT POSTERIOR CEREBRAL ARTERY: Unremarkable. No occlusion or significant stenosis. No aneurysm. LEFT INTRACRANIAL INTERNAL CAROTID ARTERY: Unremarkable. No significant stenosis. No dissection or occlusion. LEFT INTRACRANIAL VERTEBRAL ARTERY: Unremarkable. No significant stenosis. No dissection or occlusion. BASILAR ARTERY: Unremarkable. No significant stenosis. No aneurysm. OTHER VASCULATURE: There is mild atherosclerotic plaque formation of the origin of the right and left internal carotid artery with less than 50% cross sectional diameter stenosis. ALL ABOVE CRITERIA BY NASCET. There is calcified plaque formation of the right cavernous carotid artery, with a mild stenosis (less than 50%). There is calcified plaque formation of the left cavernous carotid artery, with a mild stenosis (less than 50%). ALL ABOVE CRITERIA BY NASCET. 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 No vascular malformation. NECK: RIGHT COMMON CAROTID ARTERY: Unremarkable. No significant stenosis. No dissection or occlusion. RIGHT EXTRACRANIAL INTERNAL CAROTID ARTERY: See above. RIGHT EXTERNAL CAROTID ARTERY: Unremarkable. No occlusion. RIGHT EXTRACRANIAL VERTEBRAL ARTERY: Unremarkable. No significant stenosis. No dissection or occlusion. LEFT COMMON CAROTID ARTERY: Unremarkable. No significant stenosis. No dissection or occlusion. LEFT EXTRACRANIAL INTERNAL CAROTID ARTERY: Unremarkable. No significant stenosis. No dissection or occlusion. LEFT EXTERNAL CAROTID ARTERY: Unremarkable. No occlusion. LEFT EXTRACRANIAL VERTEBRAL ARTERY: Unremarkable. No significant stenosis. No dissection or occlusion. GREAT VESSELS OF AORTIC ARCH: See above. LUNG APICES: Unremarkable as visualized. PLEURAL SPACE: Bilateral pleural effusions. HEAD and NECK: BONES/JOINTS: Unremarkable. No discrete lytic or blastic abnormalities. SOFT TISSUES: Unremarkable. CAROTID STENOSIS REFERENCE USING NASCET CRITERIA: % ICA stenosis = (1 - narrowest ICA diameter/diameter of distal cervical ICA) x 100. Mild - <50% stenosis. Moderate - 50-69% stenosis. Severe - 70-94% stenosis. Near occlusion - 95-99% stenosis. Occluded - 100% stenosis. CT/CTA Head AND Neck W/ Contrast IMPRESSION: 1. Bilateral pleural effusions. 2. There is mild atherosclerotic plaque formation of the origin of the right and left internal carotid artery with less than 50% cross sectional diameter stenosis. ALL ABOVE CRITERIA BY NASCET. 3. There is calcified plaque formation of the right cavernous carotid artery, with a mild stenosis (less than 50%). There is calcified plaque formation of the left cavernous carotid artery, with a mild stenosis (less than 50%). ALL ABOVE CRITERIA BY NASCET. 4. 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 Electronically Signed: José Luis Padilla MD at 18:34 EDT ,
[2022-01-04 18:12] LABS: Absolute Lymphocyte Count 1.83 X10^3/uL (0.83-4.51); Absolute Neutrophil Count 4.5 X10^3/uL (2.0-7.7); Basophil# 0.06 X10^3/uL; Basophil% 0.9 % (0-1); Eosinophil# 0.19 X10^3/uL; Eosinophils% 2.7 % (0-5); Hematocrit 43.3 % (40-54); Hemoglobin 14.3 g/dL (13.0-16.5); Lymphocyte # 1.83 X10^3/ul (0.83-4.51); Lymphocyte % 26.4 % (19-41); Mean Corpuscular Hgb 26.6 pg (27.0-32.0); Mean Corpuscular Volume 80.6 fL (80-94); Mean Platelet Vol. 11.3 fl (6.2-12.0); Monocyte# 0.37 X10^3/uL; Monocyte% 5.3 % (0-10); NRBC Flagged by Analyzer 0 % (0-5); Neutrophil # 4.47 X10^3/uL (2.7-7.7); Neutrophil % 64.6 % (47-70); Platelet Count 223 K/mm3 (150-450); RBC Distribution Width CV 11.9 % (11.6-14.6); RBC Distribution Width SD 34.6 fl (35.1-43.9); Red Blood Count 5.37 M/mm3 (4.6-6.2); White Blood Count 6.9 K/mm3 (4.4-11.0)
[2022-01-04 18:16] LABS: Bedside Glucose > 500 mg/dL (74-106)
[2022-01-04] MEDS: Labetalol (Prefilled) 20 MG/4 ML 10 MG IV (18:16)
[2022-01-04 18:28] LABS: International Normalized Ratio 0.9
[2022-01-04 18:29] LABS: Partial Thromboplast Time 25.5 Seconds (24.1-36.2)
[2022-01-04] MEDS: Insulin Lispro 100 UNIT/ML INSULN.PEN 15 UNIT SC (18:30)
--- NOTE | 2022-01-04 18:38 | RAD_ITS ---
STUDY: X-RAY CHEST REASON FOR EXAM: Male, 61 years old. Neuro deficit, acute, stroke suspected TECHNIQUE: XR Chest 1 View COMPARISON: 11/10/2021 FINDINGS: There are bilateral pleural effusions. There are bilateral infiltrates. Normal size heart. Normal mediastinum and kayla. Normal visualized pulmonary arteries. Normal visualized aortic arch and descending thoracic aorta. Normal visualized thoracic spine. Normal visualized ribs, clavicles, and shoulders. There is no demonstrated abnormality of the visualized soft tissue structures of the upper abdomen. RAD/Chest 1 View IMPRESSION: There are bilateral pleural effusions. There are bilateral infiltrates. Electronically Signed: José Luis Padilla MD at 19:13 EDT ,
[2022-01-04 19:02] LABS: Anion Gap 8 (5-15); BUN 49 mg/dL (7-18); BUN/Creat Ratio 20.8 RATIO (10-20); Calcium,Total 9.9 mg/dL (8.5-10.1); Chloride 99 mmol/L (98-107); Creatinine, Serum 2.36 mg/dL (0.70-1.30); EST Glomerular Filtration Rate 30 mL/min (>60); Est Glom Filt Rate - Afr Amer 36 mL/min (>60); Estimated Creatinine Clearance 23.25 ml/min; Glucose 607 mg/dL (74-106); Potassium 4.2 mmol/L (3.5-5.1); Sodium Level 133 mmol/L (136-145); Troponin-I HS 19 pg/mL (3.0-78.0)
[2022-01-04 19:16] LABS: Bedside Glucose > 500 mg/dL (74-106)
--- NOTE | 2022-01-04 19:29 | PCM.HP.STD ---
HPI - General General Date of Admission: 01/04/22 HPI Narrative JAMES RICO, is a 61 M with a significant history of diastolic heart failure; and seizures who presents emergency department with left-sided weakness. Because of left-sided weakness he collapsed. He was unable to move his left upper extremity and his left lower extremity. Also he could not feel his entire left side including his left face. Further he was stuttering and he could not find his words. His symptoms started about 1 hour before presentation. At the emergency department his symptoms resolved He reports a chronic right side pain causing him not being able to move his right side. His right side pain goes up to his right neck and his right face. His right arm pain has been exacerbated by being grabbed en-route to the hospital. His blood glucose en-route to the hospital was elevated. He report that a day before presentation he had symptoms of hypoglycemia and saw a medical provider. He reports use of wheel chair. He denied any increasing urinary habits. He reports drinking little tea but not water [facility] Medical History Acute and chronic respiratory failure with hypoxia Benign essential hypertension Brain mass CHF (congestive heart failure) CHF (congestive heart failure) Diabetes HTN (hypertension) Hyperglycemia Peripheral neuropathy Pneumonia due to COVID-19 virus Seizure Seizures Smoker Type 2 diabetes mellitus Home Medications insulin lispro [Humalog KwikPen Insulin] 10 - 15 unit SUBCUT ACHS 02/12/21 [History Last Taken 03/08/21] furosemide 20 mg PO DAILY #30 tab 03/21/21 [Rx Last Taken Unknown] insulin glargine [Lantus U-100 Insulin] SUBCUT 01/04/22 [History Last Taken Unknown] Allergy/AdvReac Type Severity Reaction Status Date / Time hydrocodone bitartrate AdvReac Mild HYPER Verified 01/04/22 18:12 [From Vicodin] lisinopril AdvReac Other Verified 01/04/22 18:12 Family History Other COPD (chronic obstructive pulmonary disease) Heart disease Surgical History Status post foot surgery Social History Smoking Status: Never smoker Smokeless tobacco user: chewing tobacco ROS ROS Narrative Pertinent positives and pertinent negatives as noted in HPI. All other systems were reviewed and are negative. Vital Signs Vital Signs Vital Signs: 01/04/22 17:55 01/04/22 18:02 01/04/22 18:07 Temperature 98.1 F Temperature Source Oral Pulse Rate 95 107 H Respiratory Rate 18 16 Blood Pressure 214/124 H 235/170 H Blood Pressure Mean 154 191 Pulse Ox 96 99 95 Oxygen Delivery Method Nasal Cannula Nasal Cannula Nasal Cannula Oxygen Flow Rate (L/min) 2 2 2 01/04/22 18:10 01/04/22 18:25 01/04/22 19:00 Temperature 98.1 F Temperature Source Oral Pulse Rate 89 85 Respiratory Rate 13 21 H Blood Pressure 205/121 H 203/137 H Blood Pressure Mean 149 159 Pulse Ox 98 97 Oxygen Delivery Method Nasal Cannula Nasal Cannula Oxygen Flow Rate (L/min) 2 2 Weight Weight: 81.4 kg Body Mass Index (BMI) 35.0 Physical Exam Narrative Physical exam: General: Well-nourished, well-developed. Head: Normocephalic, atraumatic, no tenderness Eyes: Vision is grossly intact. EOMI ENT, no trauma, moist mucous membranes, no rhinorrhea Neck: Nontender, full range of motion, no spinal tenderness, deformities, step-off CVS: Regular rate and rhythm. S1-S2 present. No murmur, gallop or rub. Respiratory : clear to auscultation bilaterally, chest wall nontender, no wheezing Abdomen: Soft, nontender, nondistended, normal bowel sounds, no masses : Deferred Back: Nontender, no CVA tenderness, no midline spinal tenderness, deformities, step-offs Extremities: Nontender full range of motion, no trauma Skin: Normal color, no trauma, abrasions Neuro: Alert, oriented, cranial nerves II through XII grossly intact except that patient does not have a pupillary reflex.. Unable to raise his right upper extremity secondary to pain. Unable to do lfucof-it-vyry test with his right arm secondary to pain. Unable to shrug right shoulder. Cannot do [id number] test bilaterally. Strength in left upper extremities and bilateral lower legs 5 out of 5. No sensation changes in bilateral lower extremities. With touching his right side patient complains of excruciating pain. Psychiatry: Normal mood. Normal affect. Not depressed. Not anxious. Results Lab / Micro Data Result Diagrams: 01/04/22 18:04 01/04/22 18:04 Labs: Laboratory Results - last 24 hr 01/04/22 18:04: WBC 6.9, RBC 5.37, Hgb 14.3, Hct 43.3, MCV 80.6, MCH 26.6 L, MCHC 33.0, RDW Std Deviation 34.6 L, RDW Coeff of Silvia 11.9, Plt Count 223, MPV 11.3, Immature Gran % (Auto) 0.100, Neut % (Auto) 64.6, Lymph % (Auto) 26.4, [place] % (Auto) 5.3, Eos % (Auto) 2.7, Baso % (Auto) 0.9, Absolute Neuts (auto) 4.5, Absolute Lymphs (auto) 1.83, Nucleated RBC % 0 01/04/22 18:04: PT 12.0, INR 0.9, APTT 25.5 01/04/22 18:04: Sodium 133 L, Potassium 4.2, Chloride 99, Carbon Dioxide 26.0, Anion Gap 8, BUN 49 H, Creatinine 2.36 H, Estim Creat Clear Calc 23.25, Est GFR (MDRD) Af Amer 36 L, Est GFR (MDRD) Non-Af 30 L, BUN/Creatinine Ratio 20.8 H, Glucose 607 H*, Calcium 9.9, Troponin I High Sens 19 01/04/22 18:09: POC Glucose > 500 H* 01/04/22 19:08: POC Glucose > 500 H* Radiology Impression Brain CT 01/04/22 17:55 IMPRESSION: Chronic involutional changes of the brain. Previous noted mass in the brain cannot be seen currently without IV contrast. CF called and case discussed. Electronically Signed: José Luis Padilla MD at 18:14 EDT , ADDENDUM: 01/04/22 [id number] IMPRESSION: Chronic involutional changes of the brain. Previous noted mass in the brain cannot be seen currently without IV contrast. CF called and case discussed. N.B. : The above Results were Read Back by José Luis Padilla MD to Hans Prasad MD, and understanding confirmed on 01/04/2022 18:17:46 (ET). Electronically Signed: José Luis Padilla MD at 18:14 EDT , Head/Neck CTA 01/04/22 17:59 IMPRESSION: 1. Bilateral pleural effusions. 2. There is mild atherosclerotic plaque formation of the origin of the right and left internal carotid artery with less than 50% cross sectional diameter stenosis. ALL ABOVE CRITERIA BY NASCET. 3. There is calcified plaque formation of the right cavernous carotid artery, with a mild stenosis (less than 50%). There is calcified plaque formation of the left cavernous carotid artery, with a mild stenosis (less than 50%). ALL ABOVE CRITERIA BY NASCET. 4. 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 Electronically Signed: José Luis Padilla MD at 18:34 EDT , Chest X-Ray 01/04/22 18:38 IMPRESSION: There are bilateral pleural effusions. There are bilateral infiltrates. Electronically Signed: José Luis Padilla MD at 19:13 EDT , Assessment & Plan Assessment/Plan (1) Stroke-like symptom: (2) Acute hyperglycemia: (3) Hypertensive urgency: PLAN: Strokelike symptoms Deferential diagnoses includes TIA; hypertensive emergency; acute hyperglycemia or others. Stroke telemetry neurologist notes reviewed. Per stroke neurologist this is likely metabolic weakness. Serial NINDS NIH Scale ordered Head CT was visualized and independent interpreted and I agree with radiologist interpretation above. CTA head and neck not with hemodynamically significant stenosis. However per radiologist with atheromatosis thrombus flap in proximal right ICA. We will start patient on dual antiplatelet therapy with aspirin and Plavix. Lipid profile on 11/10/2021 showed a triglyceride of 236; LDL cholesterol of 165. Discussed with patient about starting statin. Patient refused to be started on statin. Physical therapy, and occupational therapy to work with patient. N.p.o. until bedside swallow eval. Permissive hypertension. Control blood pressure with labetalol for systolic blood pressure of more than 220 or diastolic blood pressure of more than 120. MRI of brain ordered. Echocardiogram ordered. Diabetes mellitus Hemoglobin A1c on 11/10/2021 was 13.1. Patient with hyperglycemia on presentation and with blood glucose on BMP as high as 607. She osmolality of 324. Patient was confused. HHS ruled out. Basal insulin, prandial insulin, Accu-Chek QA CHS and at 2 AM with correction scale insulin ordered. Hypertensive emergency On presentation strokelike symptoms and elevated blood pressure with systolic blood pressure in the 200s is possible the patient is having hypertensive emergency. Uncontrolled blood pressure with as needed hydralazine and labetalol Per stroke parameters. Of note patient's reports that he stopped taking prior hypertensive medication because of how he was feeling. Trend blood pressure and adjust blood pressure medications. Acute on chronic right arm pain Oxycodone 5 mg x 1 and then Tylenol as needed ordered. AIME on CKD stage II CKD Likely from Diabetic nephropathy and hypertensive nephrosclerosis Baseline creatinine of around 1.2. Creatinine on admission was 2.36. With history of congestive heart failure and bilateral pleural effusion on imaging gentle fluid hydration ordered. Trend BMP. Chronic congestive heart failure Stable Echocardiogram on 02/12/2021 showed estimated ejection fraction of 60% and stage I diastolic dysfunction. Moderate size right pleural effusion identified on echo at that time. Mild to moderate eccentric mild carotid valve sufficiency noted. Aside that there was no hemodynamically significant valvular abnormality. Pulmonary artery systolic pressure was 30 mm Hg of mercury. CTA head and neck on presentation picked up bilateral pleural effusion. Also chest x-ray showed bilateral pleural effusion bilateral infiltrate. Patient is on Lasix that he takes as needed for left leg edema and has not been taking for a while. Cautious use of fluids. Monitor on telemetry. DVT prophylax: SCD. Charges/Coding Visit Charges OBSV E&M: 80630 Initial observation care L3
[2022-01-04 19:46] LABS: Bedside Glucose 478 mg/dL (74-106)
[2022-01-04] MEDS: 0.9% Normal Saline 1,000 ML 999 ML IV (19:54)
--- NOTE | 2022-01-04 20:04 | ED.RN ---
Per Dr. Prasad, it is ok to cancel Q30 NIH
[2022-01-04 20:49] LABS: Osmolality, Serum 324 mOsm/KG (280-301)
--- NOTE | 2022-01-04 21:04 | ECHOCS_ITS ---
Reason For Study: CVA Procedure This was a 2D Doppler, Color Flow transthoracic echocardiogram. The study was technically difficult. Contrast injection was performed. Bubble study performed. Patient scanned supine due to strong arm pain. Exam performed portable in patient room. Left Ventricle Normal LV size. Left ventricular systolic function is normal. The estimated ejection fraction is 65 %. Stage 1 diastolic dysfunction. No regional wall motion abnormalities noted. Right Ventricle Normal RV size. Normal systolic function. Atria The left atrium is mildly enlarged. Normal right atrium. Mitral Valve Mild focal mitral valve calcification of the anterior leaflet. Mild-Moderate (1-2+) eccentric mitral valve insufficiency. Tricuspid Valve Normal tricuspid valve. Aortic Valve Trisinus/trileaflet aortic valve. Pulmonic Valve Normal pulmonic valve. Great Vessels Normal aortic root. The pulmonary artery is normal size. Normal inferior vena cava. Pericardium/Pleural No pericardial effusion. Medication Diluted definity 2ml given slow IV push to enhance endocardial definition. Performed a rapid injection of agitated mix of 9 cc saline and 1cc air to assess for atrial septal defect. MMode/2D Measurements & Calculations LVIDd: 4.7 cm IVSd: 1.1 cm LA dimension: 4.3 cm LVIDs: 3.2 cm LVPWd: 1.2 cm RVDd: 3.6 cm FS: 31.6 % LAV(MOD-bp): 62.8 ml LA A4 area: 22.4 cm2 RA A4 area: 14.4 cm2 LAV(MOD-bp) Indexed: 31.7 ml/m2 LAV(MOD-sp2): 50.1 ml LAV(MOD-sp4): 70.9 ml Time Measurements MV dec time: 0.23 sec Doppler Measurements & Calculations MV E max fermin: 62.7 cm/sec Lat Peak E' Fermin: 5.8 cm/sec Med Peak E' Fermin: 4.9 cm/sec MV A max fermin: 78.9 cm/sec E/E' lat: 10.8 E/E' med: 12.8 MV E/A: 0.79 Ao V2 max: 133.3 cm/sec LV V1 max: 80.8 cm/sec PA V2 max: 79.0 cm/sec Ao max P.1 mmHg LV V1 max P.6 mmHg ECHO/Echo Complete W/ Contrast Interpretation Summary Normal LV size. Left ventricular systolic function is normal. The estimated ejection fraction is 65 %. Stage 1 diastolic dysfunction. Trisinus/trileaflet aortic valve. Ordering Physician: Steve Kuhn Referring Physician: Amish Han Performed By: Ermias Urias RCS
[2022-01-04] MEDS: Clopidogrel Bisulfate 75 MG Tablet PO (21:54)
[2022-01-04] MEDS: Aspirin 81 MG TAB.CHEW PO (21:54)
[2022-01-04] MEDS: Insulin Lispro 100 UNIT/ML INSULN.PEN SC (21:55)
[2022-01-04] MEDS: Insulin Glargine-YFGN 100 UNIT/ML Pen 15 UNIT SC (21:56)
[2022-01-04] MEDS: 0.9% Normal Saline 1,000 ML 75 ML IV (21:58)
[2022-01-04] MEDS: oxyCODONE 5 MG Tablet PO (22:04)
[2022-01-04 22:16] LABS: Bedside Glucose 342 mg/dL (74-106)
[2022-01-04 22:45] LABS: Bedside Glucose 251 mg/dL (74-106)
[2022-01-05] VITALS (12 sets, daily range): BP systolic 123–189; BP diastolic 82–110; PULSE 82–90; RESP 16–18; TEMP 36.5–37; O2SAT 94–98; BMI 25.4
[2022-01-05 03:41] LABS: Bedside Glucose 130 mg/dL (74-106)
[2022-01-05 04:34] LABS: Absolute Lymphocyte Count 1.64 X10^3/uL (0.83-4.51); Absolute Neutrophil Count 4.2 X10^3/uL (2.0-7.7); Basophil# 0.05 X10^3/uL; Basophil% 0.8 % (0-1); Eosinophil# 0.18 X10^3/uL; Eosinophils% 2.7 % (0-5); Hematocrit 34.1 % (40-54); Hemoglobin 11.8 g/dL (13.0-16.5); Lymphocyte # 1.64 X10^3/ul (0.83-4.51); Mean Corp Hgb Conc 34.6 g/dL (32-36); Mean Corpuscular Hgb 27.4 pg (27.0-32.0); Mean Corpuscular Volume 79.1 fL (80-94); Mean Platelet Vol. 10.8 fl (6.2-12.0); Monocyte# 0.47 X10^3/uL; Monocyte% 7.2 % (0-10); NRBC Flagged by Analyzer 0 % (0-5); Neutrophil # 4.22 X10^3/uL (2.7-7.7); Neutrophil % 64.1 % (47-70); Platelet Count 180 K/mm3 (150-450); RBC Distribution Width CV 12.2 % (11.6-14.6); RBC Distribution Width SD 35.1 fl (35.1-43.9); Red Blood Count 4.31 M/mm3 (4.6-6.2); White Blood Count 6.6 K/mm3 (4.4-11.0)
[2022-01-05 05:01] LABS: Anion Gap 8 (5-15); BUN 46 mg/dL (7-18); BUN/Creat Ratio 24.2 RATIO (10-20); Calcium,Total 8.7 mg/dL (8.5-10.1); Chloride 105 mmol/L (98-107); EST Glomerular Filtration Rate 38 mL/min (>60); Est Glom Filt Rate - Afr Amer 47 mL/min (>60); Estimated Creatinine Clearance 42.16 ml/min; Glucose 137 mg/dL (74-106); Potassium 3.4 mmol/L (3.5-5.1); Sodium Level 137 mmol/L (136-145)
[2022-01-05 08:07] LABS: White Blood Cells 0 SEEN /hpf (0-5)
[2022-01-05 08:08] LABS: Bacteria 0 SEEN /hpf (None Seen); Mucous, Urine 0 SEEN /hpf (<or=2+)
[2022-01-05 08:15] LABS: Color, Urine Yellow (Yellow); Glucose, Dipstick 100 mg/dl (Normal); Ketone-Dipstick Negative (Negative); Leukocyte Esterase-Dipstick Negative /ul (Negative); Nitrite-Dipstick Negative (Negative); Occult Blood-Urine 150 /ul (Negative); Protein-Dipstick 500 mg/dl (Negative); Specific Gravity, Urine 1.015 (1.002-1.030); Urine Bilirubin Dipstick Negative (Negative); Urine Clarity Sl. Cloudy (Clear); Urine Urobilinogen Normal (Normal)
[2022-01-05 08:16] LABS: Bedside Glucose 180 mg/dL (74-106)
[2022-01-05] MEDS: Potassium Chloride Oral Tablet 20 MEQ 40 MEQ PO (08:17)
[2022-01-05] MEDS: Clopidogrel Bisulfate 75 MG Tablet PO (08:17)
[2022-01-05] MEDS: Aspirin 81 MG TAB.CHEW PO (08:17)
[2022-01-05] MEDS: Insulin Lispro 100 UNIT/ML INSULN.PEN SC ×6 (08:17→22:12)
[2022-01-05 08:35] LABS: Red Blood Cells-Urine 5-10 SEEN /hpf (0-5); Squamous Epithelial Cells - UA 0-5 SEEN /hpf (0-5)
[2022-01-05 08:40] LABS: Amphetamine Urine VISTA NEGATIVE (<1000 ng/mL); Barbiturate Urine VISTA NEGATIVE (< 200 ng/mL); Benzodiazepine Urine VISTA NEGATIVE (< 200 ng/mL); Cocaine Urine VISTA NEGATIVE (< 300 ng/mL); Ecstacy Urine VISTA NEGATIVE (< 500 ng/mL); Methadone Urine VISTA NEGATIVE (< 300 ng/mL); PCP Urine VISTA NEGATIVE (< 25 ng/mL); THC Urine VISTA NEGATIVE (< 50 ng/mL); Vista UDS pH Range 4
--- NOTE | 2022-01-05 09:05 | PN.HOSP_ITS ---
Subjective Subjective Follow-up for strokelike symptoms although stroke less likely possible metabolic encephalopathy, hypertension and hyperglycemia Objective Data Objective Data Vital Signs: Vital Signs Temp Pulse Resp BP Pulse Ox 97.9 F 82 18 142/82 H 97 01/05/22 06:30 01/05/22 06:30 01/05/22 06:30 01/05/22 06:30 01/05/22 06:30 Oxygen Flow Rate (L/min) 2 Oxygen Delivery Method Room Air Weight: 177 lb 11.081 oz Body Mass Index (BMI) 25.4 Intake & Output: Intake and Output for Last 24 Hours 01/03/22 01/04/22 01/05/22 23:59 23:59 23:59 Intake Total 1000 / 1300 600 / 600 Output Total 250 / 250 Balance 1000 / 1300 350 / 350 Lab / Micro Data Result Diagrams: 01/05/22 03:57 01/05/22 03:57 Labs: Laboratory Results - last 24 hr 01/04/22 18:04: WBC 6.9, RBC 5.37, Hgb 14.3, Hct 43.3, MCV 80.6, MCH 26.6 L, MCHC 33.0, RDW Std Deviation 34.6 L, RDW Coeff of Silvia 11.9, Plt Count 223, MPV 11.3, Immature Gran % (Auto) 0.100, Neut % (Auto) 64.6, Lymph % (Auto) 26.4, [place] % (Auto) 5.3, Eos % (Auto) 2.7, Baso % (Auto) 0.9, Absolute Neuts (auto) 4.5, Absolute Lymphs (auto) 1.83, Nucleated RBC % 0 01/04/22 18:04: PT 12.0, INR 0.9, APTT 25.5 01/04/22 18:04: Sodium 133 L, Potassium 4.2, Chloride 99, Carbon Dioxide 26.0, Anion Gap 8, BUN 49 H, Creatinine 2.36 H, Estim Creat Clear Calc 23.25, Est GFR (MDRD) Af Amer 36 L, Est GFR (MDRD) Non-Af 30 L, BUN/Creatinine Ratio 20.8 H, Glucose 607 H*, Calcium 9.9, Troponin I High Sens 19 01/04/22 18:09: POC Glucose > 500 H* 01/04/22 19:08: POC Glucose > 500 H* 01/04/22 19:38: POC Glucose 478 H* 01/04/22 19:50: Serum Osmolality 324 H 01/04/22 21:08: POC Glucose 342 H 01/04/22 22:28: POC Glucose 251 H 01/05/22 02:51: POC Glucose 130 H 01/05/22 03:57: WBC 6.6, RBC 4.31 L, Hgb 11.8 L, Hct 34.1 L, MCV 79.1 L, MCH 27.4, MCHC 34.6, RDW Std Deviation 35.1, RDW Coeff of Silvia 12.2, Plt Count 180, MPV 10.8, Immature Gran % (Auto) 0.200, Neut % (Auto) 64.1, Lymph % (Auto) 25.0, [place] % (Auto) 7.2, Eos % (Auto) 2.7, Baso % (Auto) 0.8, Absolute Neuts (auto) 4.2, Absolute Lymphs (auto) 1.64, Nucleated RBC % 0 01/05/22 03:57: Sodium 137, Potassium 3.4 L, Chloride 105, Carbon Dioxide 24.0, Anion Gap 8, BUN 46 H, Creatinine 1.90 H, Estim Creat Clear Calc 42.16, Est GFR (MDRD) Af Amer 47 L, Est GFR (MDRD) Non-Af 38 L, BUN/Creatinine Ratio 24.2 H, Glucose 137 H, Calcium 8.7 Radiography Diagnostic Testing: Radiology Impression Brain CT 01/04/22 17:55 IMPRESSION: Chronic involutional changes of the brain. Previous noted mass in the brain cannot be seen currently without IV contrast. CF called and case discussed. Head/Neck CTA 01/04/22 17:59 IMPRESSION: 1. Bilateral pleural effusions. 2. There is mild atherosclerotic plaque formation of the origin of the right and left internal carotid artery with less than 50% cross sectional diameter stenosis. ALL ABOVE CRITERIA BY NASCET. 3. There is calcified plaque formation of the right cavernous carotid artery, with a mild stenosis (less than 50%). There is calcified plaque formation of the left cavernous carotid artery, with a mild stenosis (less than 50%). ALL ABOVE CRITERIA BY NASCET. 4. 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 Chest X-Ray 01/04/22 18:38 IMPRESSION: There are bilateral pleural effusions. There are bilateral infiltrates. Physical Exam Narrative Patient in severe pain due to right upper extremity with hyperalgesia. Patient stated he had accidental injury to right upper extremity when a glass lamp fell on right arm and whole right RUE was ripped. Since then he has contracture, hyperalgesia and he was on morphine for 2 years. Patient refused for statin for admitting physician and to me after several attempts for persuasion failed. General: Alert, Oriented x3, Cooperative HEENT: Atraumatic, PERRLA, EOMI, Normocephalic Oral: No Gingival or Mucosal Lesions/ Ulcerations Neck: Supple, No JVD, Negative Carotid Bruits Lungs: Air entry diminished in bilateral lung bases. No crepitation/rhonchi Cardiovascular: Regular rate, Regular Rhythm, Normal S1, Normal S2, No murmurs Abdomen: Bowel Sounds Present, Soft, Non Tender, Non-Distended : No renal angle tenderness. No suprapubic tenderness. Extremities: No edema, Capillary Refill Less than 3 Seconds Skin: No rashes, No breakdown Musculoskeletal: Chronic right upper extremity deformity with contracture. ROM restricted. LUE 5/5. LLE power at knee and hip 4/5, RLE 5/5. Neurological: Cranial nerves II-XII grossly intact, DTR 2/4. RUE hypersensitive/hyperalgesia. No language deficit. No dysarthria or dysphagia. nihss 3 Psych/Mental Status: Flat. Assessment & Plan Assessment/Plan (1) Stroke-like symptom: (2) Acute hyperglycemia: (3) Hypertensive urgency: PLAN: 1. Acute and subacute right leg no ischemic infarct associated with acute encephalopathy: Patient presented with left-sided weakness, hypertension hyperglycemia blood sugar. Accu-Chek more than 500s. Patient was also somnolent but arousable in ED. Chronic RUE pain with contracture. LKW prior to nap around 3 PM. EMS blood pressure was 234/170, heart rate 97/min. Patient initial NIH stroke scale was high, 14 and also patient felt back to baseline. [facility] neurologist recommended no tPA as patient blood pressure was too high despite multiple doses of labetalol and hyperglycemia. Likely metabolic weakness as patient described pain all over and weakness in all 4 limbs. MRI brain reported acute lacunar ischemic infarct in posterior cortex of right middle posterior gyrus, subacute lacunar ischemic infarct in the right postcentral gyrus and chronic interval posterior periventricular white matter ischemic changes not present on 06/13/2022. 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 Started on dual antiplatelet therapy with aspirin and Plavix. I further confirmed with radiologist Dr. Dubose and he said it does not look like atheromatous flap or dissection flap but tight stenosis, more than 70%. [facility] neurologist consulted and he wanted vascular surgery consult. I talked to Dr. Harrison Rocha and discussed the clinical history and imaging particularly abnormal findings mentioned in CTA of head and neck. He advised carotid duplex which is ordered. If he finds critical or severe lesion in carotid duplex, then he would like to see the patient as inpatient consult for possible transfer to tertiary care center. If no significant lesion from carotid duplex he will see as outpatient. I further requested computer reconstructed image when I talked to Dr. Delatorre. 2. Dyslipidemia: Lipid profile on 11/10/2021 showed a triglyceride of 236; LDL cholesterol of 165. Discussed with patient about starting statin. Patient refused to be started on statin to me and admitting physician. Physical therapy, and occupational therapy to work with patient. 2D echo ordered ordered and pending. Acute encephalopathy resolved. 3. Diabetes mellitus type II Hemoglobin A1c on 11/10/2021 was 13.1. Most recent glucose 164 on Accu-Chek. Patient with hyperglycemia on presentation and with blood glucose on BMP as high as 607. She osmolality of 324. Patient was confused. HHS ruled out. Patient is a basal insulin, prandial insulin, Accu-Chek QA [facility] and at 2 AM with correction scale insulin. 4. Hypertensive emergency On presentation strokelike symptoms and elevated blood pressure with systolic blood pressure in the 200s is possible the patient is having hypertensive emergency. Permissive hypertension as per stroke guidelines. Blood pressure is still high therefore started on amlodipine 5 mg daily. Control blood pressure with labetalol for systolic blood pressure of more than 220 or diastolic blood pressure of more than 120.Hydralazine and labetalol Per stroke parameters. Of note patient's reports that he stopped taking prior hypertensive medication because he was feeling good 5. Acute on chronic right arm pain, possible reflex sympathetic dystrophy Patient on pain regimen. 6. AIME on CKD stage IIIb with proteinuria CKD Likely from Diabetic nephropathy and hypertensive nephrosclerosis Baseline creatinine of around 1.2. Creatinine on admission was 2.36. UA shows protein 500. 60 chronic diastolic congestive heart failure Echocardiogram on 02/12/2021 showed estimated ejection fraction of 60% and stage I diastolic dysfunction. Moderate size right pleural effusion identified on echo at that time. Mild to moderate eccentric mild carotid valve sufficiency noted. Aside that there was no hemodynamically significant valvular abnormality. Pulmonary artery systolic pressure was 30 mm Hg of mercury. CTA head and neck on presentation picked up bilateral pleural effusion. Patient on Lasix currently on hold. DVT prophylax: SCD. Total time of the visit including total time spent in counseling or coordination of care, (more than 50% of the total time, spent in obtaining medical inform ation from nurses and other ancillary care providers,explaining to the patient about labs, imaging, diagnosis and management), discussion with investment consultant, vascular surgeon, [facility] radiologist, review of record of [facility] neurologist, review of labs and imaging is 40 minutes. Clinical Impression(s) from Imaging Studies Brain CT 01/04/22 17:55 IMPRESSION: Chronic involutional changes of the brain. Previous noted mass in the brain cannot be seen currently without IV contrast. CF called and case discussed. Head/Neck CTA 01/04/22 17:59 IMPRESSION: 1. Bilateral pleural effusions. 2. There is mild atherosclerotic plaque formation of the origin of the right and left internal carotid artery with less than 50% cross sectional diameter stenosis. ALL ABOVE CRITERIA BY NASCET. 3. There is calcified plaque formation of the right cavernous carotid artery, with a mild stenosis (less than 50%). There is calcified plaque formation of the left cavernous carotid artery, with a mild stenosis (less than 50%). ALL ABOVE CRITERIA BY NASCET. 4. 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 Chest X-Ray 01/04/22 18:38 IMPRESSION: There are bilateral pleural effusions. There are bilateral infiltrates. Brain MRI 01/05/22 09:10 IMPRESSION: 1. Acute lacunar ischemic infarct in the posterior cortex of the right middle frontal gyrus convexity (series 4, image 23). 2. Subacute lacunar ischemic infarct in the right postcentral gyrus. 3. Interval clearing of the subcortical white matter T2 FLAIR hyperintensity in the right precentral gyrus when compared to 06/13/2020. 4. Subcortical white matter T2 FLAIR hyperintensity focus in the right superior frontal gyrus is unchanged. 5. Chronic posterior periventricular white matter ischemic changes were not present on 06/13/2020. After discussion with high risk case manager, patient switched to inpatient. Charges/Coding Visit Charges Inpatient E&M: 36055 Subs Hosp L3
--- NOTE | 2022-01-05 09:10 | MRI_ITS ---
We are attempting to reach an attending provider to discuss findings. An addendum with communication details will be sent when the communication is complete. EXAM: MR HEAD WITHOUT INTRAVENOUS CONTRAST CLINICAL INDICATION: CVA. Hypertension. Left-sided weakness. TECHNIQUE: Multiplanar and multisequence MR images of the brain were obtained without intravenous contrast. This report was created using [employer] report generation technology. COMPARISON: MRI brain with and without contrast 06/13/2020. CT head without contrast 01/04/2022. FINDINGS: BRAIN AND EXTRA-AXIAL SPACES: Small diffusion restriction in the right middle frontal gyrus cortex this acute lacunar ischemic infarct. Faint diffusion restriction in the right postcentral gyrus is also visible on the T2 FLAIR sequence. This is subacute lacunar ischemic infarct. T2 FLAIR hyperintensity in the posterior periventricular white matter are chronic white matter ischemic changes. These were not present previously. Interval clearing of the small T2 FLAIR hyperintensity in the subcortical white matter of the right precentral gyrus. No intra- or extra-axial hemorrhage. No intracranial mass or mass effect. Posterior fossa structures are unremarkable. No hydrocephalus. Basal cisterns are patent. SELLA: Unremarkable. Normal sella turcica, pituitary gland, infundibular stalk, optic chiasm and hypothalamus. AUDITORY SYSTEM: Unremarkable. The internal auditory canals are patent. BONES/JOINTS: Unremarkable. No discrete lytic or blastic abnormalities. SINUSES: Unremarkable as visualized. Clear. MASTOID AIR CELLS: Unremarkable as visualized. Clear. ORBITS: Unremarkable as visualized. Both globes, extraocular muscles, optic nerves and retrobulbar fat appear unremarkable. VASCULATURE: Unremarkable as visualized. Normal flow voids in the major intracranial circulation. MRI/Brain without Contrast IMPRESSION: 1. Acute lacunar ischemic infarct in the posterior cortex of the right middle frontal gyrus convexity (series 4, image 23). 2. Subacute lacunar ischemic infarct in the right postcentral gyrus. 3. Interval clearing of the subcortical white matter T2 FLAIR hyperintensity in the right precentral gyrus when compared to 06/13/2020. 4. Subcortical white matter T2 FLAIR hyperintensity focus in the right superior frontal gyrus is unchanged. 5. Chronic posterior periventricular white matter ischemic changes were not present on 06/13/2020. Electronically Signed: Daryn Richter MD at 10:52 EDT ,
[2022-01-05] MEDS: oxyCODONE 5 MG Tablet PO ×2 (11:58→17:34)
[2022-01-05] MEDS: amLODIPine 5 MG Tablet PO (11:58)
[2022-01-05 12:01] LABS: Bedside Glucose 164 mg/dL (74-106)
--- NOTE | 2022-01-05 12:01 | CASEMGMT ---
Patient politely declined completing PHQ9 depression screen. Patient said, I am not depressed. Angie Stewart INSIDE WIREMAN JADA
--- NOTE | 2022-01-05 12:48 | CDU_ITS ---
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 Velocities/BP Lt. Velocities/BP Prox CCA 63/21.3 cm/sec. Prox CCA 77.3/18.8 cm/sec. Mid CCA 73.4/16 cm/sec. Mid CCA 73.6/24.3 cm/sec. Dist CCA 89.1/21.3 cm/sec. Dist CCA 82.7/24.3 cm/sec. Prox ICA 101/31.6 cm/sec. Prox ICA 104.7/46.2 cm/sec. Mid ICA 106.5/33.4 cm/sec. Mid ICA 101/35.3 cm/sec. Dist ICA 84.6/17 cm/sec. Dist ICA 82.7/29.8 cm/sec. Rt. ICA/CCA = 1.45. Lt. ICA/CCA = 1.35. Prox ECA 106.5/11.5 cm/sec. Prox ECA 106.5/13.3 cm/sec. Rt. Vert. 48.7/17.9 cm/sec. Lt. Vert. 40.9/17.6 cm/sec. Right Extracranial There is homogeneous, smooth atherosclerotic plaque noted in the right common carotid artery. There is heterogeneous, irregular atherosclerotic plaque noted in the right internal carotid artery. There is intimal thickening but no significant atherosclerotic plaque noted in the right external carotid artery. Antegrade flow is noted in the right vertebral artery. Left Extracranial There is homogeneous, smooth atherosclerotic plaque noted in the left common carotid artery. There is heterogeneous, irregular atherosclerotic plaque noted in the left internal carotid artery. There is intimal thickening but no significant atherosclerotic plaque noted in the left external carotid artery. Antegrade flow is noted in the left vertebral artery. Procedure Carotid Duplex 83615. This is a Carotid Duplex examination using B-mode, color flow and specral Doppler. Exam performed portable in patient room. Definity contrast agent used prior to doing left side. VL/Carotid Duplex Ultrasound Interpretation Summary Heterogenous plaque at the proximal right internal carotid artery with less memo n 50% stenosis based upon velocity. Some very slight blood flow swirling is identified but there is no clear finding of thrombus and certainly no finding of a flap of thrombus. Less than 50% stenosis right external carotid artery Irregular heterogenous plaque of the proximal left internal carotid artery with less than 50% stenosis Less than 50% stenosis left external carotid artery Patent and antegrade vertebral arteries bilaterally Ordering Physician: Josiah Sutherland Referring Physician: Amish Han Performed By: Cathy Bains RVT
--- NOTE | 2022-01-05 15:35 | CHAPLAIN ---
Type of Pastoral Visit _x__ Initial Visit ___ Follow-up Visit ___ On-call Visit ___ General Patient Visit ___ Spiritual Assessment ___ Family Conference ___ Bereavement ___ Rapid Response ___ Code Blue ___ Other (describe below) Pastoral Care Referral From _x__ Patient ___ Family ___ Nurse ___ Physician ___ Crime Lab Analyst ___ Dock Loader ___ Other (describe below) Sacrament/Intervention _x__ Active listening ___ Anointing ___ Latter-Day ___ Bereavement ___ Communion ___ Jenny exploration ___ ___ Life review ___ Prayer ___ Reconciliation ___ Sacrament of Sick ___ Supportive presence ___ Wedding ___ Other (describe below) Pastoral Comments patient had a Bible on his bed and began to talk about his jenny and that the Bible had all that he needed today; pt states he is receiving good care and promptly too; a friend and pt son is in room also
[2022-01-05 16:01] LABS: AST(SGOT) 13 U/L (15-37); Alanine Aminotransfer ALT/SGPT 15 U/L (16-61); Albumin, Serum 3.2 g/dL (3.2-5.0); Alkaline Phosphatase 69 U/L (45-117); Protein, Total 6.2 g/dL (6.4-8.2)
[2022-01-05 16:40] LABS: Bedside Glucose 122 mg/dL (74-106)
[2022-01-05] MEDS: Pravastatin 40 MG Tablet PO (17:35)
[2022-01-05 19:22] LABS: CPK Total, Creatine Kinase 86 U/L (39-308)
[2022-01-05] MEDS: Insulin Glargine-YFGN 100 UNIT/ML Pen 15 UNIT SC (22:12)
[2022-01-05 22:21] LABS: Bedside Glucose 176 mg/dL (74-106)
[2022-01-06] VITALS (7 sets, daily range): BP systolic 123–148; BP diastolic 80–93; PULSE 72–86; RESP 18; TEMP 36.4–36.7; O2SAT 92–97
[2022-01-06] MEDS: Insulin Lispro 100 UNIT/ML INSULN.PEN SC ×5 (02:13→11:00)
[2022-01-06 02:21] LABS: Bedside Glucose 162 mg/dL (74-106)
[2022-01-06] MEDS: amLODIPine 5 MG Tablet PO (07:54)
[2022-01-06] MEDS: Aspirin 81 MG TAB.CHEW PO (07:54)
[2022-01-06] MEDS: Clopidogrel Bisulfate 75 MG Tablet PO (07:55)
[2022-01-06] MEDS: oxyCODONE 5 MG Tablet PO (08:00)
[2022-01-06 09:26] LABS: Bedside Glucose 177 mg/dL (74-106)
--- NOTE | 2022-01-06 10:20 | CASEMGMT ---
MICHELLE HUANG AUTO BODY TECHNICIAN CM to room to meet with patient for initial transition planning/care coordination assessment. MICHELLE HUANG introduced self and role at [facility]. Pt voices understanding and consents to assessment at this time. Pt sitting up in chair in room in no distress at this time. Pt is A/O at this time and answers all questions appropriately. Care providers, pharmacy, and demographics verified/updated at this time. PCP: Dr Amish Han Specialists:Dr Canales--pain mgmt Preferred Pharmacy: [facility], [place]. Pt states he only wants to get brand-name medications @ [facility]. He states generic medications make him nauseous. Insurance: [facility] A, B Prescription Benefit: None-pt pays for all medications [id number] Living Will/HPOA: Pt does not currently have LW/HCPOA. Initially pt stated his son, Rosendo Carter, is his POA. Upon further discussion, pt informed RN REINA that Rosendo is only 13-yrs-old and he is his nephew, not his son. Pt states, but I call him my son RN REINA informed pt that Rosendo would not legally be able to be his HPOA, since he not of legal age. Pt states he does not know who he would want to be his POA then, as his lives in [place]. RN REINA informed pt that his could still be his HPOA, as healthcare decision making can be done over the phone. LNOK: , Nessa Fernandes, who lives in [place]. They have been for 4 yrs. Nephew, Antonio Carter (13-yrs-old) PH [phone]. Living Arrangements: Lives w/13-yr-old nephew, Antonio, in 2nd floor apt. 14 steps into apartment. Pt states he was independent w/ADL's @ baseline and his nephew helps him w/laundry, meals, and eco industrial development consultant. Transportation: Pt states drives self and states no transportation concerns at this time. DME: States has the following DME: shower chair, rails, hand-held shower, glucometer, and cane (uses sometimes) Pt states he would like to get a Knee brace for his left knee since it gives out on him sometimes. RN REINA informed him [facility] does not carry these and informed him of locations he may be able to purchase these, such as on-line or @ [facility] or [place]. HHC/SNF: No hx of either. Pt states he needs therapy. Discussed options of SNF vs HHC vs OP therapy. Pt states, if SNF is recommended, he would consider going. Pt was provided with list of SNF providers including quality and resource use data and consistent with the patient's preferred geographic region, medical needs, and insurance network. The pt's preference is [facility]. PLAN: TBD, SNF vs Home w/HHC. PT/OT to work w/pt this AM Kelsi BSN RN CM
--- NOTE | 2022-01-06 10:20 | PCM.DC ---
Discharge Instructions Diet Discharge Diet: Low fat / Low cholesterol, 1800 Calorie Control Diet and 2000 mg Sodium Diet Activity Discharge Activity: Return to Normal Activity and May Not Drive Weight Bearing Status: Weight bearing as tolerated Dressing / Incision Call your doctor if you observe: Fever of 101 or Higher, Coldness, Increased Pain, Numbness or Tingling, Change in Color, Inability to urinate, Inability to have a bowel movement, Shortness of breath, Dizziness, Fainting spells, Swelling in the ankles, Chest pain, Prolonged hiccupping, Increased palpitations (irregular heartbeat) and Calf discomfort Follow Up Care Test Results: Test results from this visit will be discussed in further detail at your follow-up appointment, if applicable. Discharge Plan Admission Admit Date/Time: 01/05/22 12:44 Primary Reason for Your Visit: acute/subacute ischemic stroke Attending Provider: Josiah Sutherland Primary Care Provider: Amish Han Consulting Providers: Steve Kuhn ; Fritz Caruso Instructions Additional Instructions / Restrictions: Hold Lasix for 1 week and follow with PCP. Take Lasix 20 mg only as needed for leg swelling. Discharge Orders/Prescriptions Prescriptions: New clopidogrel 75 mg Tablet 75 mg PO DAILY Qty: 20 RF: 0 aspirin 81 mg Tablet,Chewable 81 mg PO BREAKFAST Qty: 30 RF: 2 insulin lispro [Humalog KwikPen Insulin] 100 unit/mL Insulin Pen 5 unit subcut TIDCM Qty: 1 RF: 3 insulin glargine-yfgn 100 unit/mL (3 mL) Insulin Pen 18 unit subcut QHS Qty: 3 RF: 2 amlodipine 5 mg Tablet 5 mg PO DAILY Qty: 30 RF: 0 insulin lispro [Humalog KwikPen Insulin] 100 unit/mL Insulin Pen See Protocol unit subcut ACHS & 3AM Qty: 0 RF: 0 pravastatin 80 mg tablet 80 mg PO QHS Qty: 30 RF: 2 oxycodone 5 mg Tablet 2.5 mg PO Q4H PRN PRN (Reason: Pain Score 4-5) 3 Days Qty: 7 RF: 0 Continued insulin lispro [Humalog KwikPen Insulin] 100 unit/mL Insulin Pen 10 - 15 unit SUBCUT ACHS RF: 0 Held furosemide 20 mg Tablet 20 mg PO DAILY Qty: 30 RF: 0 Hold Instructions: hOLD FOR 1 WEEK and check with PCP Discontinued Lantus U-100 Insulin 100 unit/mL Cartridge SUBCUT RF: 0 Referrals / Follow Up: Amish Han MD [Primary Care Provider] - In 1 Week Fritz Caruso MD [STAFF PHYSICIAN] - Within 1 Month (Follow up with [facility]) Philip Carrasco MD [STAFF PHYSICIAN] - Within 2 Weeks Disposition Disposition (needs filled in before D/C Order can be placed): Home Health Service
--- NOTE | 2022-01-06 10:50 | PCM.TXEXTCAR ---
Diet 01/04/22 21:05 Diet: Cardiac: Calorie-Controlled Food consistency:: Regular Liquid Consistency:: Regular/Thin How many daily calories?: 1800 calorie Routine Orders/Code Status Suppository Type: Dulcolax 10mg Suppository Frequency: Daily PRN Code Status: Full Code Wound(s) scab to knuckles: Wound Type: Abrasion rt foot 4th toe scab: Wound Type: Neuropathic/Diabetic Foot Ulcer left foot third toe: Wound Type: Neuropathic/Diabetic Foot Ulcer Therapies Weight Bearing: Full weight bearing Extremity Affected:: Left Lower Physical Therapy: Eval and Treat Occupational Therapy: Eval and Treat Speech Therapy: Eval and Treat Problem/Diagnosis (1) Stroke-like symptom: Status: Acute (2) Acute hyperglycemia: Status: Acute (3) Hypertensive urgency: Status: Acute Allergies/Procedures Done in Hospital Allergies hydrocodone bitartrate [From Vicodin] Adverse Reaction (Mild, Verified 01/04/22 18:12) HYPER lisinopril Adverse Reaction (Verified 01/04/22 18:12) Other CHEST PAIN Type of Care/Length of Stay Estimated LOS: Convalescent Care Less Than 30 days Type of Care Needed: Skilled Rehab Potential: Good Prognosis: Good Additional Orders/Day of Discharge Day of Discharge: 01/06/22 Discharge Plan Admission Admit Date/Time: 01/05/22 12:44 Primary Reason for Your Visit: acute/subacute ischemic stroke Attending Provider: Josiah Sutherland Primary Care Provider: Amish Han Consulting Providers: Steve Kuhn ; Fritz Caruso Instructions Additional Instructions / Restrictions: Hold Lasix for 1 week and follow with PCP. Take Lasix 20 mg only as needed for leg swelling. Discharge Orders/Prescriptions Prescriptions: New clopidogrel 75 mg Tablet 75 mg PO DAILY Qty: 20 RF: 0 aspirin 81 mg Tablet,Chewable 81 mg PO BREAKFAST Qty: 30 RF: 2 insulin lispro [Humalog KwikPen Insulin] 100 unit/mL Insulin Pen 5 unit subcut TIDCM Qty: 1 RF: 3 insulin glargine-yfgn 100 unit/mL (3 mL) Insulin Pen 18 unit subcut QHS Qty: 3 RF: 2 amlodipine 5 mg Tablet 5 mg PO DAILY Qty: 30 RF: 0 insulin lispro [Humalog KwikPen Insulin] 100 unit/mL Insulin Pen See Protocol unit subcut ACHS & 3AM Qty: 0 RF: 0 pravastatin 80 mg tablet 80 mg PO QHS Qty: 30 RF: 2 oxycodone 5 mg Tablet 2.5 mg PO Q4H PRN PRN (Reason: Pain Score 4-5) 3 Days Qty: 7 RF: 0 Continued insulin lispro [Humalog KwikPen Insulin] 100 unit/mL Insulin Pen 10 - 15 unit SUBCUT ACHS RF: 0 Held furosemide 20 mg Tablet 20 mg PO DAILY Qty: 30 RF: 0 Hold Instructions: hOLD FOR 1 WEEK and check with PCP Discontinued Lantus U-100 Insulin 100 unit/mL Cartridge SUBCUT RF: 0 Other Ambulatory Orders: 30-Day Event Recorder (Routine) Location: None Selected Ordered By: Dr. Josiah Sutherland Referrals / Follow Up: Fritz Caruso MD [STAFF PHYSICIAN] - 01/27/22 9:00 am (Follow up with [facility] 's office is located at [facility] [address] bring insurance cards, photo ID, Insurance co-pay) Amish Han MD [Primary Care Provider] - In 1 Week Philip Carrasco MD [STAFF PHYSICIAN] - Within 2 Weeks Disposition Disposition (needs filled in before D/C Order can be placed): Home Health Service
--- NOTE | 2022-01-06 10:58 | CON.PCM_ITS ---
Assessment & Plan Assessment/Plan (1) Stroke-like symptom: PLAN: 1. Carotid. Some atheromatous debris noted in the right internal carotid artery. No intervention needed for this. Needs to be on aspirin and Plavix daily. We will recheck a CTA in 1 month and follow-up at that point. HPI Consult Data Date of Consult: 01/06/22 HPI Narrative HPI Narrative: JAMES RICO, is a 61 M who presents left-sided this. Had fallen down with the left leg weak. Also some numbness weakness in his left face. Had an MRI that showed a right acute lacunar infarct subacute right lacunar and chronic posterior white matter changes. CTA of the carotids bilateral less than 50% degree of stenosis with some cavernous plaque but no significant stenosis. Mention the right atheromatous flap noted. Carotid duplex bilateral less than 50% stenosis. Bilateral antegrade vertebral a rteries. Vascular surgery consulted for evaluation of this. Appears to be a small area of thrombus into that right internal carotid artery. But no significant stenosis. We will just need to be on dual antiplatelet therapy at this point. [facility] Medical History Acute and chronic respiratory failure with hypoxia Benign essential hypertension Brain mass CHF (congestive heart failure) CHF (congestive heart failure) Diabetes HTN (hypertension) Hyperglycemia Peripheral neuropathy Pneumonia due to COVID-19 virus Seizure Seizures Smoker Type 2 diabetes mellitus Home Medications insulin lispro [Humalog KwikPen Insulin] 10 - 15 unit SUBCUT ACHS 02/12/21 [History Last Taken 03/08/21] furosemide 20 mg PO DAILY #30 tab 03/21/21 [Rx Last Taken Unknown] amlodipine 5 mg PO DAILY #30 tab 01/06/22 [Rx Last Taken Unknown] aspirin 81 mg PO BREAKFAST #30 tab 01/06/22 [Rx Last Taken Unknown] clopidogrel 75 mg PO DAILY #20 tab 01/06/22 [Rx Last Taken Unknown] insulin glargine-yfgn 18 unit SUBCUT QHS #3 ml 01/06/22 [Rx Last Taken Unknown] insulin lispro [Humalog KwikPen Insulin] 5 unit SUBCUT TIDCM #1 ml 01/06/22 [Rx Last Taken Unknown] insulin lispro [Humalog KwikPen Insulin] See Protocol SUBCUT ACHS & 3AM #0 ml 01/06/22 [Rx Last Taken Unknown] oxycodone 2.5 mg PO Q4H PRN PRN 3 Days #7 tab 01/06/22 [Rx Last Taken Unknown] pravastatin 80 mg PO QHS #30 tab 01/06/22 [Rx Last Taken Unknown] Allergy/AdvReac Type Severity Reaction Status Date / Time hydrocodone bitartrate AdvReac Mild HYPER Verified 01/04/22 18:12 [From Vicodin] lisinopril AdvReac Other Verified 01/04/22 18:12 Family History Other COPD (chronic obstructive pulmonary disease) Heart disease Surgical History Status post foot surgery Social History household members: children number of children: 3 current occupational status: disabled Smoking Status: Never smoker Smokeless tobacco user: chewing tobacco ROS ROS Narrative All negative except for what is in the HPI Physical Exam Narrative Patient awake alert oriented No apparent distress Afebrile vital signs stable HEENT: Normocephalic atraumatic Pupils appear equal reactive Moist mucous membrane Neck supple No bruit Lungs reported clear Heart appears regular Chest nontender Palpable radial pulses Slight pedal pulses Mild edema Slight weakness left leg, otherwise moves extremities well Lab / Micro Data Result Diagrams: 01/05/22 03:57 01/05/22 03:57 Labs: Laboratory Results - last 24 hr 01/05/22 03:57: Total Bilirubin 0.40, Direct Bilirubin 0.10, AST 13 L, ALT 15 L, Alkaline Phosphatase 69, Total Protein 6.2 L, Albumin 3.2, Globulin 3.0 01/05/22 03:57: Total Creatine Kinase 86 01/05/22 11:07: POC Glucose 164 H 01/05/22 16:24: POC Glucose 122 H 01/05/22 22:06: POC Glucose 176 H 01/06/22 02:09: POC Glucose 162 H 01/06/22 07:50: POC Glucose 177 H Radiology Impression Head/Neck CTA 01/04/22 17:59 IMPRESSION: 1. Bilateral pleural effusions. 2. There is mild atherosclerotic plaque formation of the origin of the right and left internal carotid artery with less than 50% cross sectional diameter stenosis. ALL ABOVE CRITERIA BY NASCET. 3. There is calcified plaque formation of the right cavernous carotid artery, with a mild stenosis (less than 50%). There is calcified plaque formation of the left cavernous carotid artery, with a mild stenosis (less than 50%). ALL ABOVE CRITERIA BY NASCET. 4. 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 Electronically Signed: José Luis Padilla MD at 18:34 EDT , Echocardiogram 01/04/22 21:04 Interpretation Summary Normal LV size. Left ventricular systolic function is normal. The estimated ejection fraction is 65 %. Stage 1 diastolic dysfunction. Trisinus/trileaflet aortic valve. Ordering Physician: Steve Kuhn Referring Physician: Amish Han Performed By: Ermias Urias RCS Brain MRI 01/05/22 09:10 IMPRESSION: 1. Acute lacunar ischemic infarct in the posterior cortex of the right middle frontal gyrus convexity (series 4, image 23). 2. Subacute lacunar ischemic infarct in the right postcentral gyrus. 3. Interval clearing of the subcortical white matter T2 FLAIR hyperintensity in the right precentral gyrus when compared to 06/13/2020. 4. Subcortical white matter T2 FLAIR hyperintensity focus in the right superior frontal gyrus is unchanged. 5. Chronic posterior periventricular white matter ischemic changes were not present on 06/13/2020. Electronically Signed: Daryn Richter MD at 10:52 EDT , ADDENDUM: 01/05/22 1110 IMPRESSION: 1. Acute lacunar ischemic infarct in the posterior cortex of the right middle frontal gyrus convexity (series 4, image 23). 2. Subacute lacunar ischemic infarct in the right postcentral gyrus. 3. Interval clearing of the subcortical white matter T2 FLAIR hyperintensity in the right precentral gyrus when compared to 06/13/2020. 4. Subcortical white matter T2 FLAIR hyperintensity focus in the right superior frontal gyrus is unchanged. 5. Chronic posterior periventricular white matter ischemic changes were not present on 06/13/2020. N.B. : The above Results were Read Back by Daryn Richter MD to RN Daryn Serna RN, and understanding confirmed on 01/05/2022 11:03:54 (ET). Electronically Signed: Daryn Richter MD at 10:52 EDT , Carotid Duplex 01/05/22 12:48 Interpretation Summary Heterogenous plaque at the proximal right internal carotid artery with less than 50% stenosis based upon velocity. Some very slight blood flow swirling is identified but there is no clear finding of thrombus and certainly no finding of a flap of thrombus. Less than 50% stenosis right external carotid artery Irregular heterogenous plaque of the proximal left internal carotid artery with less than 50% stenosis Less than 50% stenosis left external carotid artery Patent and antegrade vertebral arteries bilaterally Ordering Physician: Josiah Sutherland Referring Physician: Amish Han Performed By: Cathy Bains RVT
[2022-01-06 11:25] LABS: Bedside Glucose 172 mg/dL (74-106)
--- NOTE | 2022-01-06 11:30 | CASEMGMT ---
Therapy recommended patient go somewhere for rehab. RN REINA spoke with patient and gave him a list. Patient would like to stay at [facility] for rehab. SW called Nenita with TCU/Rehab and made a referral for the Rehab Unit. Await response. Angie ELIAS
--- NOTE | 2022-01-06 13:18 | CASEMGMT ---
Patient was denied for [facility] 4th floor Rehab Unit. However, patient was accepted in [facility] TCU. SW notified RN, alumnae secretary, physician, patient and his family. Plan: d/c to [facility] TCU under skilled level of care. Angie ELIAS
--- NOTE | 2022-01-06 13:47 | PCM.DC.SUM ---
Providers Date of Admission: 01/05/22 Date of Discharge: 01/06/22 Primary Care Physician: Dr. Amish Han MD Consultations 01/05/22 15:00 Consult: Vascular Surgery Routine Consulting Provider: Fritz Caruso Reason for Consult: Atheromatous BRITTANEY, B/L Cavernous ICA, Right CEREBRAL lacunar stroke EMERGENT Consult: No MD Notified: Yes Date Notified: 01/05/22 Time Notified: 15:01 Method of Notification: Verbal Reason For Visit: stroke like symptoms Diagnosis Discharge Diagnosis (1) Hypertensive urgency: Status: Acute Code(s): I16.0 - Hypertensive urgency Medications at Discharge Home Medications insulin lispro [Humalog KwikPen Insulin] 10 - 15 unit SUBCUT ACHS 02/12/21 furosemide 20 mg PO DAILY #30 tab 03/21/21 amlodipine 5 mg PO DAILY #30 tab 01/06/22 aspirin 81 mg PO BREAKFAST #30 tab 01/06/22 clopidogrel 75 mg PO DAILY #20 tab 01/06/22 insulin glargine-yfgn 18 unit SUBCUT QHS #3 ml 01/06/22 insulin lispro [Humalog KwikPen Insulin] 5 unit SUBCUT TIDCM #1 ml 01/06/22 insulin lispro [Humalog KwikPen Insulin] See Protocol SUBCUT ACHS & 3AM #0 ml 01/06/22 oxycodone 2.5 mg PO Q4H PRN PRN 3 Days #7 tab 01/06/22 pravastatin 80 mg PO QHS #30 tab 01/06/22 Hospital Course Summary of Care Provided Hospital Course: This 61-year-old gentleman was admitted to ER for left-sided weakness resulting in legs giving out and fall, subtle left facial droop, hyperglycemia and hypertension. No other significant injury.Accu-Chek more than 500s. Patient was also somnolent but arousable in ED. Chronic RUE pain with contracture. LKW prior to nap around 3 PM. EMS blood pressure was 234/170, heart rate 97/min. Patient initial NIH stroke scale was high, 14 and later on patient felt back to baseline. 1. Acute and subacute right cerebral ischemic infarct associated with acute encephalopathy: Patient presented with left-sided weakness, hypertension hyperglycemia blood sugar. [facility] neurologist recommended no tPA as patient blood pressure was too high despite multiple doses of labetalol and hyperglycemia. MRI brain reported acute lacunar ischemic infarct in posterior cortex of right middle posterior gyrus, subacute lacunar ischemic infarct in the right postcentral gyrus and chronic interval posterior periventricular white matter ischemic changes not present on 06/13/2022. 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 Started on dual antiplatelet therapy with aspirin and Plavix. I further confirmed with radiologist Dr. Dubose and he said it does not look like atheromatous flap or dissection flap but tight stenosis, more than 70%. [facility] neurologist vascular surgery consulted and carotid duplex ordered. Carotid duplex was done and discussed with Dr. Harrison Rocha. Heterogeneous plaque at proximal Brittaney less than 50%. No clear finding of flap of thrombus or ulcerated or dissection. Less than 50% proximal LICA, irregular heterogeneous plaque. Less than 50% of bilateral external carotid artery Dr. Caruso vascular surgeon was formally consulted. He recommended to continue aspirin Plavix and statin follow-up with him with CTA in 1 month. 2D echo shows EF 65% LV systolic function normal stage I diastolic dysfunction. Telemetry shows normal sinus rhythm. 30-day event monitor ordered with recommendation of fiberglass pipe covering supervisor., Dr. Yi. Acute encephalopathy resolved. Stroke protocol was followed with PT OT and speech therapy. 2. Dyslipidemia: Lipid profile on 11/10/2021 showed a triglyceride of 236; LDL cholesterol of 165. Discussed with patient about starting statin. Patient refused to be started on statin to me and admitting physician. Physical therapy, and occupational therapy to work with patient. Patient had allergy reaction of swelling in hands after taking atorvastatin in the past therefore pravastatin was started yesterday. He tolerated 40 mg well therefore increase the dose to 50 mg daily. 3. Diabetes mellitus type II Hemoglobin A1c on 11/10/2021 was 13.1. Most recent glucose 164 on Accu-Chek. Patient with hyperglycemia on presentation and with blood glucose on BMP as high as 607. She osmolality of 324. Patient was confused. HHS ruled out. Patient is a basal insulin, prandial insulin, Accu-Chek QA [facility] and at 2 AM with correction scale insulin. Prescription for Lantus and meal insulin given. 4. Hypertensive emergency On presentation left-sided weakness and elevated blood pressure with systolic blood pressure in the 200s is possible the patient is having hypertensive emergency. Permissive hypertension as per stroke guidelines. Blood pressure is still high therefore started on amlodipine 5 mg daily. Control blood pressure with labetalol for systolic blood pressure of more than 220 or diastolic blood pressure of more than 120.Hydralazine and labetalol Per stroke parameters. Of note patient's reports that he stopped taking prior hypertensive medication because he was feeling good Prescription for amlodipine given. Advised to hold Lasix for 1 week and then follow-up PCP. Recommend Lasix 1 mg as needed for leg swelling. 5. Acute on chronic right arm pain, possible reflex sympathetic dystrophy Patient on pain regimen. 6. AIME on CKD stage IIIb with proteinuria CKD Likely from Diabetic nephropathy and hypertensive nephrosclerosis Baseline creatinine of around 1.2. Creatinine on admission was 2.36. UA shows protein 500. 6 chronic diastolic congestive heart failure: Echocardiogram on 02/12/2021 showed estimated ejection fraction of 60% and stage I diastolic dysfunction. Moderate size right pleural effusion identified on echo at that time. Mild to moderate eccentric mild carotid valve sufficiency noted. Aside that there was no hemodynamically significant valvular abnormality. Pulmonary artery systolic pressure was 30 mm Hg of mercury. CTA head and neck on presentation picked up bilateral pleural effusion. Patient on Lasix currently on hold. DVT prophylax: SCD. Discharge medication reconciliation done. Discharge follow-up instructions completed. Discharge process discussed with the patient and all questions were answered to patient's satisfaction. The patient is being transferred to TCU. Total time spent, exact 35 minutes on discharge meds reconciliation, examination, coordination of care with nurses and ancillary staff, review of imaging and blood test and discussion with the patient on follow-up instructions. Physical Exam Narrative Seen and examined on the day of discharge. Patient right upper extremity pain and is much better with pain medications. He requested oxycodone as it helped in the pain control and function of right upper extremity. I said I cannot give long-term but he can follow with Dr. Canales as used to follow him before. Blood pressure is controlled. General: Alert, Oriented x3, Cooperative HEENT: Atraumatic, PERRLA, EOMI, Normocephalic Oral: No Gingival or Mucosal Lesions/ Ulcerations Neck: Supple, No JVD, Negative Carotid Bruits Lungs: Air entry equal in bilateral lung bases. No crepitation/rhonchi Cardiovascular: Regular rate, Regular Rhythm, Normal S1, Normal S2, No murmurs Abdomen: Bowel Sounds Present, Soft, Non Tender, Non-Distended : No renal angle tenderness. No suprapubic tenderness. Extremities: No edema, Capillary Refill Less than 3 Seconds Skin: No rashes, No breakdown Musculoskeletal: Chronic right upper extremity deformity with contracture. ROM restricted. LUE 5/5. LLE power at knee and hip 4/5, RLE 5/5. Neurological: Cranial nerves II-XII grossly intact, DTR 2/4. Patient can extend right upper extremity still has mild contracture. No language deficit. No dysarthria or dysphagia. Psych/Mental Status: Normal affect. Weight / BMI Weight Weight: 177 lb 11.081 oz Body Mass Index (BMI) 25.4 ABG / Lab / Microbiology Data Result Diagrams: 01/05/22 03:57 01/05/22 03:57 Laboratory: Laboratory Results - last 24 hr 01/05/22 03:57: Total Bilirubin 0.40, Direct Bilirubin 0.10, AST 13 L, ALT 15 L, Alkaline Phosphatase 69, Total Protein 6.2 L, Albumin 3.2, Globulin 3.0 01/05/22 03:57: Total Creatine Kinase 86 01/05/22 11:07: POC Glucose 164 H 01/05/22 16:24: POC Glucose 122 H 01/05/22 22:06: POC Glucose 176 H 01/06/22 02:09: POC Glucose 162 H 01/06/22 07:50: POC Glucose 177 H Radiography Diagnostic Testing: Radiology Impression Head/Neck CTA 01/04/22 17:59 IMPRESSION: 1. Bilateral pleural effusions. 2. There is mild atherosclerotic plaque formation of the origin of the right and left internal carotid artery with less than 50% cross sectional diameter stenosis. ALL ABOVE CRITERIA BY NASCET. 3. There is calcified plaque formation of the right cavernous carotid artery, with a mild stenosis (less than 50%). There is calcified plaque formation of the left cavernous carotid artery, with a mild stenosis (less than 50%). ALL ABOVE CRITERIA BY NASCET. 4. 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 Electronically Signed: José Luis Padilla MD at 18:34 EDT , Echocardiogram 01/04/22 21:04 Interpretation Summary Normal LV size. Left ventricular systolic function is normal. The estimated ejection fraction is 65 %. Stage 1 diastolic dysfunction. Trisinus/trileaflet aortic valve. Ordering Physician: Steve Kuhn Referring Physician: Amish Han Performed By: Ermias Urias RCS Brain MRI 01/05/22 09:10 IMPRESSION: 1. Acute lacunar ischemic infarct in the posterior cortex of the right middle frontal gyrus convexity (series 4, image 23). 2. Subacute lacunar ischemic infarct in the right postcentral gyrus. 3. Interval clearing of the subcortical white matter T2 FLAIR hyperintensity in the right precentral gyrus when compared to 06/13/2020. 4. Subcortical white matter T2 FLAIR hyperintensity focus in the right superior frontal gyrus is unchanged. 5. Chronic posterior periventricular white matter ischemic changes were not present on 06/13/2020. Electronically Signed: Daryn Richter MD at 10:52 EDT , ADDENDUM: 01/05/22 1110 IMPRESSION: 1. Acute lacunar ischemic infarct in the posterior cortex of the right middle frontal gyrus convexity (series 4, image 23). 2. Subacute lacunar ischemic infarct in the right postcentral gyrus. 3. Interval clearing of the subcortical white matter T2 FLAIR hyperintensity in the right precentral gyrus when compared to 06/13/2020. 4. Subcortical white matter T2 FLAIR hyperintensity focus in the right superior frontal gyrus is unchanged. 5. Chronic posterior periventricular white matter ischemic changes were not present on 06/13/2020. N.B. : The above Results were Read Back by Daryn Richter MD to RN Daryn Serna RN, and understanding confirmed on 01/05/2022 11:03:54 (ET). Electronically Signed: Daryn Richter MD at 10:52 EDT , Carotid Duplex 01/05/22 12:48 Interpretation Summary Heterogenous plaque at the proximal right internal carotid artery with less than 50% stenosis based upon velocity. Some very slight blood flow swirling is identified but there is no clear finding of thrombus and certainly no finding of a flap of thrombus. Less than 50% stenosis right external carotid artery Irregular heterogenous plaque of the proximal left internal carotid artery with less than 50% stenosis Less than 50% stenosis left external carotid artery Patent and antegrade vertebral arteries bilaterally Ordering Physician: Josiah Sutherland Referring Physician: Amish Han Performed By: Cathy Bains RVT D/C Instructions Discharge Diet: Low fat / Low cholesterol, 1800 Calorie Control Diet and 2000 mg Sodium Diet Weight Bearing Status: Weight bearing as tolerated Call your doctor if you observe: Fever of 101 or Higher, Coldness, Increased Pain, Numbness or Tingling, Change in Color, Inability to urinate, Inability to have a bowel movement, Shortness of breath, Dizziness, Fainting spells, Swelling in the ankles, Chest pain, Prolonged hiccupping, Increased palpitations (irregular heartbeat) and Calf discomfort Meaningful Use Info Meaningful Use Diagnoses (Choose all that apply): Ischemic CVA CVA Therapy Assessed for PT,OT and/or ST?: Yes Ischemic Stroke Antithrombotic order at d/c?: Yes Dx of Atrial fib/flutter?: No Anticoagulant at discharge?: Yes Statins at discharge?: Yes Primary Dx Acute Ischemic CVA?: Yes IV tPA ordered during stay?: No Reason IV t-PA not ordered: Procedure not Indicated and Treatment not Indicated Discharge Plan Admission Admit Date/Time: 01/05/22 12:44 Primary Reason for Your Visit: acute/subacute ischemic stroke Attending Provider: Josiah Sutherland Primary Care Provider: Amish Han Consulting Providers: Steve Kuhn ; Fritz Caruso Instructions Additional Instructions / Restrictions: Hold Lasix for 1 week and follow with PCP. Take Lasix 20 mg only as needed for leg swelling. Discharge Orders/Prescriptions Prescriptions: New clopidogrel 75 mg Tablet 75 mg PO DAILY Qty: 20 RF: 0 aspirin 81 mg Tablet,Chewable 81 mg PO BREAKFAST Qty: 30 RF: 2 insulin lispro [Humalog KwikPen Insulin] 100 unit/mL Insulin Pen 5 unit subcut TIDCM Qty: 1 RF: 3 insulin glargine-yfgn 100 unit/mL (3 mL) Insulin Pen 18 unit subcut QHS Qty: 3 RF: 2 amlodipine 5 mg Tablet 5 mg PO DAILY Qty: 30 RF: 0 insulin lispro [Humalog KwikPen Insulin] 100 unit/mL Insulin Pen See Protocol unit subcut ACHS & 3AM Qty: 0 RF: 0 pravastatin 80 mg tablet 80 mg PO QHS Qty: 30 RF: 2 oxycodone 5 mg Tablet 2.5 mg PO Q4H PRN PRN (Reason: Pain Score 4-5) 3 Days Qty: 7 RF: 0 Continued insulin lispro [Humalog KwikPen Insulin] 100 unit/mL Insulin Pen 10 - 15 unit SUBCUT ACHS RF: 0 Held furosemide 20 mg Tablet 20 mg PO DAILY Qty: 30 RF: 0 Hold Instructions: hOLD FOR 1 WEEK and check with PCP Discontinued Lantus U-100 Insulin 100 unit/mL Cartridge SUBCUT RF: 0 Other Ambulatory Orders: 30-Day Event Recorder (Routine) Location: None Selected Ordered By: Dr. Josiah Sutherland Referrals / Follow Up: Fritz Caruso MD [STAFF PHYSICIAN] - 01/27/22 9:00 am (Follow up with [facility] head and neck 's office is located at [facility] [address] bring insurance cards, photo ID, Insurance co-pay) Amish Han MD [Primary Care Provider] - In 1 Week Philip Carrasco MD [STAFF PHYSICIAN] - Within 2 Weeks Disposition Disposition (needs filled in before D/C Order can be placed): Home Health Service Charges/Coding Visit Charges Inpatient E&M: 65179 Disch Hosp
--- NOTE | 2022-01-07 14:13 | NURSING ---
Received call from [facility] in regards to consult on 01/05/22 informed them that patient now has appt with NEUROLOGIST dr. Carrasco. on 01-27-22. Patient to do all neurology follow-ups with him for now on.
--- NOTE | 2022-01-12 00:08 | EKG12_ITS ---
Test Reason : CP Blood Pressure : / mmHG Vent. Rate : 116 BPM Atrial Rate : 116 BPM P-R Int : 168 ms QRS Dur : 088 ms QT Int : 328 ms P-R-T Axes : 000 -33 046 degrees QTc Int : 455 ms Sinus tachycardia Left axis deviation Abnormal ECG When compared with ECG of 07-JAN-2022 08:43, MANUAL COMPARISON REQUIRED, DATA IS UNCONFIRMED Confirmed by ARTHUR MONSON, YUMIKO ([id number]), photo editor HANNAH BRAY ([id number]) on 01/14/2022 1:34:43 PM Referred By: ENE Confirmed By:YUMIKO GIBSON MD
== END 2022-01-06 14:48 | disposition skilled nursing facility (03) | DRG 64 ==
LOC: ED 19:33 → PCU 20:25
PROVIDERS: Admitting Provider Hospitalist; Emergency Provider Emergency Medicine; PCP Family Medicine; Visit Provider Internal Medicine
DX: I63.81 Other cerebral infarction due to occlusion or stenosis of small artery (principal); G93.41 Metabolic encephalopathy; G81.94 Hemiplegia, unspecified affecting left nondominant side; G90.511 Complex regional pain syndrome I of right upper limb; N17.9 Acute kidney failure, unspecified; I13.0 Hypertensive heart and chronic kidney disease with heart failure and stage 1 through stage 4 chronic kidney disease, or unspecified chronic kidney disease; I50.32 Chronic diastolic (congestive) heart failure; I16.1 Hypertensive emergency; E11.42 Type 2 diabetes mellitus with diabetic polyneuropathy; E11.65 Type 2 diabetes mellitus with hyperglycemia; Z79.4 Long term (current) use of insulin; E11.22 Type 2 diabetes mellitus with diabetic chronic kidney disease; E11.21 Type 2 diabetes mellitus with diabetic nephropathy; N18.32 Chronic kidney disease, stage 3b; E78.5 Hyperlipidemia, unspecified; I65.23 Occlusion and stenosis of bilateral carotid arteries; F17.220 Nicotine dependence, chewing tobacco, uncomplicated; R29.714 NIHSS score 14; R29.703 NIHSS score 3; R29.706 NIHSS score 6; Z79.02 Long term (current) use of antithrombotics/antiplatelets; Z79.82 Long term (current) use of aspirin; Z79.899 Other long term (current) drug therapy; Z86.16 Personal history of COVID-19
CPT/HCPCS: 36415; 70450; 70496; 70498; 70551; 71045; 80048; 80076; 80307; 81001; 82550; 82962; 83930; 84484; 85025; 85610; 85730; 87426; 93005; 93306; 93880; 94762; 97116; 97162; 97167; 97530; 99285; J7030; Q9957; Q9967; A4216; C8929

== ENCOUNTER 2022-01-06 14:52 | Inpatient (IN) | payer MEDICARE, SELFPAY ==
[2022-01-06 14:58] VITALS: BP 146/88; PULSE 80; RESP 16; TEMP 37.1; O2SAT 95; BMI 26.5
[2022-01-06 17:05] LABS: Bedside Glucose 291 mg/dL (74-106)
[2022-01-06] MEDS: Insulin Lispro 100 UNIT/ML INSULN.PEN SC ×2 (17:46→17:48)
[2022-01-06] MEDS: oxyCODONE 5 MG Tablet 2.5 MG PO ×2 (18:54→23:47)
--- NOTE | 2022-01-06 20:52 | PCM.HP.STD ---
HPI - General General Date of Admission: 01/06/22 HPI Narrative 01/04/2022 JAMES RICO, is a 61 Male who presents to [facility] Emergency Department with neurologic signs/symptoms. 01/04/2022 EKG normal sinus rhythm, left axis deviation. Collapsed, left sided weakness, some right sided weakness. No seizure activity, although son who is a minor state patient has seizure history. Blood pressure elevated, Glucose greater than 525. Symptoms resolved, TPA not recommended. 01/04/2022 Admit to Hospital. PT/OT/ST for stroke. Aspirin, Plavix started for stroke. Control blood pressure, control hyperglycemia. 01/04/2022 Echo Normal Left ventricle size. LVSF normal. EF 65%. Stage 1 diastolic dysfunction. 01/05/2022 Symptoms thought secondary to metabolic derangements. MRI brain showed multiple strokes. Patient refused statin therapy. Patient stopped taking blood pressure medications because he was feeling well. Dr. Caruso recommended aspirin, Plavix for right internal carotid artery atheromatous debris, no surgery recommended. 01/06/2022 Admit to TCU with debility, here for rehabilitation, strengthening, prior to discharge home with . [facility] Medical History Acute and chronic respiratory failure with hypoxia Benign essential hypertension Brain mass CHF (congestive heart failure) CHF (congestive heart failure) Diabetes HTN (hypertension) Hyperglycemia Peripheral neuropathy Pneumonia due to COVID-19 virus Seizure Seizures Smoker Type 2 diabetes mellitus Home Medications insulin lispro [Humalog KwikPen Insulin] 10 - 15 unit SUBCUT ACHS 02/12/21 [History Last Taken 03/08/21] amlodipine 5 mg PO DAILY 01/06/22 [History Last Taken Unknown] aspirin 81 mg PO BREAKFAST 01/06/22 [History Last Taken Unknown] clopidogrel 75 mg PO DAILY 01/06/22 [History Last Taken Unknown] furosemide 20 mg PO DAILY 01/06/22 [History Last Taken Unknown] insulin glargine-yfgn 18 unit SUBCUT QHS 01/06/22 [History Last Taken Unknown] insulin lispro [Humalog KwikPen Insulin] 5 unit SUBCUT TIDCM 01/06/22 [History Last Taken Unknown] insulin lispro [Humalog KwikPen Insulin] See Protocol SUBCUT ACHS & 3AM 01/06/22 [History Last Taken Unknown] oxycodone 2.5 mg PO Q4H PRN PRN 3 Days #7 tab 01/06/22 [Rx Last Taken Unknown] pravastatin 80 mg PO QHS 01/06/22 [History Last Taken Unknown] Allergy/AdvReac Type Severity Reaction Status Date / Time hydrocodone bitartrate AdvReac Mild HYPER Verified 01/04/22 18:12 [From Vicodin] lisinopril AdvReac Other Verified 01/04/22 18:12 Family History Other COPD (chronic obstructive pulmonary disease) Heart disease Surgical History Status post foot surgery Social History (Updated 01/06/22 @ 20:[address] Alexandro Jules MD) household members: spouse and children number of children: 3 current occupational status: disabled Smoking Status: Never smoker Smokeless tobacco user: chewing tobacco alcohol intake: never substance use type: does not use ROS Constitutional Constitutional: Denies chills, fever(s) or weight gain ENT HEENT: Denies headache(s), nasal congestion or nasal discharge Cardiovascular Cardiovascular: Denies chest pain or palpitations Respiratory/Chest Respiratory/Chest: Denies cough, excessive phlegm production or shortness of breath with exertion Gastrointestinal Gastrointestinal: Denies abdominal pain, nausea or vomiting Genitourinary Genitourinary: Denies dysuria Musculoskeletal Musculoskeletal: Denies joint pain or joint swelling Integumentary Integumentary: Denies rash or wounds Neurologic Neurologic: Denies focal weakness, numbness or tingling Psychiatric Psychiatric: Denies anxiety, auditory hallucinations, depression, homicidal ideation or suicidal ideation Vital Signs Vital Signs Vital Signs: 01/06/22 14:58 Temperature 98.7 F Temperature Source Oral Pulse Rate 80 Pulse Rhythm Regular Pulse Strength Normal (2+) Respiratory Rate 16 Respiratory Effort Normal Non-Labored Respiratory Depth Normal Respiratory Pattern Normal Blood Pressure 146/88 H Blood Pressure Mean 107 Blood Pressure Source Monitor Blood Pressure Position Semi-Fowlers Blood Pressure Location Right Arm Pulse Ox 95 Oxygen Delivery Method Room Air Weight Weight: 84 kg Body Mass Index (BMI) 26.5 Physical Exam Const alert General Appearance: cooperative HEENT normocephalic Eyes PERRL and EOMs intact bilaterally Neck supple, no JVD and no carotid bruits Resp normal respiratory effort, normal air movement and clear to auscultation bilaterally Cardio regular rate and regular rhythm GI normal to inspection, nondistended, normoactive bowel sounds, non-tender and non-distended Extremity normal capillary refill General Extremity: Negative for edema Skin no rashes or lesions noted General Skin Exam: no breakdown Psych affect normal Appearance: appropriate Results Lab / Micro Data Labs: Laboratory Results - last 24 hr 01/06/22 17:00: POC Glucose 291 H Assessment & Plan Assessment/Plan (1) Debility: (2) Acute right arterial ischemic stroke, MCA (middle cerebral artery): (3) Left hemiparesis: (4) Hypertensive urgency: (5) Hyperglycemia: (6) Chronic obstructive pulmonary disease: (7) Vitamin D deficiency: (8) Diabetes mellitus: (9) Hypomagnesemia: (10) Hypertension: (11) Chronic diastolic congestive heart failure: PLAN: 61 year old male with below past medical history hospitalized for 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 Debility - PT/OT. Pain - Tylenol 1000mg q6h prn pain (1-5), Oxycodone 2.5mg q4h prn pain (6-10). Bowel - senna/colace 1 tablet bid, Dulcolax 10mg pr daily prn. Adult immunization - Administer pneumonia vaccine, covid19 vaccine, flu vaccine as appropriate. DVT prophylaxis - Hold, on dual antiplatelet therapy. Hypertension - Amlodipine 5mg daily. Stroke - Aspirin 81mg daily, Plavix 75mg daily. Chronic diastolic congestive heart failure - Lasix 20mg daily. Diabetes Mellitus II - Glargine 18 units qhs. Hyperlipidemia - Pravastatin 80mg qhs.
[2022-01-06 21:20] LABS: Bedside Glucose 158 mg/dL (74-106)
[2022-01-06] MEDS: Insulin Glargine-YFGN 100 UNIT/ML Pen 18 UNIT SC (21:35)
[2022-01-06] MEDS: Pravastatin 80 MG Tablet PO (21:37)
[2022-01-06] MEDS: Furosemide 20 MG Tablet PO (21:39)
--- NOTE | 2022-01-06 23:32 | NURSING ---
Patient requested shower this evening. Assisted with shower by AMANDA's. No skin issues noted. Patient pleasant and cooperative with assistance.
[2022-01-07] MEDS: amLODIPine 5 MG Tablet PO (05:18)
[2022-01-07] MEDS: Clopidogrel Bisulfate 75 MG Tablet PO (05:18)
[2022-01-07 06:10] LABS: Absolute Lymphocyte Count 1.38 X10^3/uL (0.83-4.51); Absolute Neutrophil Count 4.6 X10^3/uL (2.0-7.7); Basophil# 0.05 X10^3/uL; Basophil% 0.7 % (0-1); Eosinophil# 0.43 X10^3/uL; Eosinophils% 6.2 % (0-5); Hematocrit 34.2 % (40-54); Hemoglobin 11.2 g/dL (13.0-16.5); Lymphocyte # 1.38 X10^3/ul (0.83-4.51); Lymphocyte % 19.8 % (19-41); Mean Corp Hgb Conc 32.7 g/dL (32-36); Mean Corpuscular Volume 82.4 fL (80-94); Mean Platelet Vol. 10.8 fl (6.2-12.0); Monocyte# 0.47 X10^3/uL; Monocyte% 6.7 % (0-10); NRBC Flagged by Analyzer 0 % (0-5); Neutrophil # 4.62 X10^3/uL (2.7-7.7); Neutrophil % 66.2 % (47-70); Platelet Count 190 K/mm3 (150-450); RBC Distribution Width CV 12.2 % (11.6-14.6); RBC Distribution Width SD 37.2 fl (35.1-43.9); Red Blood Count 4.15 M/mm3 (4.6-6.2)
[2022-01-07 06:31] LABS: Bedside Glucose 240 mg/dL (74-106)
[2022-01-07 06:32] LABS: Anion Gap 6 (5-15); BUN 52 mg/dL (7-18); BUN/Creat Ratio 20.1 RATIO (10-20); Calcium,Total 8.7 mg/dL (8.5-10.1); Chloride 108 mmol/L (98-107); Creatinine, Serum 2.59 mg/dL (0.70-1.30); EST Glomerular Filtration Rate 27 mL/min (>60); Est Glom Filt Rate - Afr Amer 33 mL/min (>60); Estimated Creatinine Clearance 30.93 ml/min; Glucose 235 mg/dL (74-106); Potassium 4.9 mmol/L (3.5-5.1); Sodium Level 137 mmol/L (136-145)
[2022-01-07] MEDS: Insulin Lispro 100 UNIT/ML INSULN.PEN SC ×3 (08:31→17:54)
[2022-01-07] MEDS: Aspirin 81 MG TAB.CHEW PO (08:33)
[2022-01-07 08:34] VITALS: BP 140/89; PULSE 88; RESP 18; TEMP 36.7; O2SAT 95
--- NOTE | 2022-01-07 08:36 | EKG12_ITS ---
Test Reason : CP Blood Pressure : / mmHG Vent. Rate : 085 BPM Atrial Rate : 085 BPM P-R Int : 122 ms QRS Dur : 086 ms QT Int : 380 ms P-R-T Axes : -02 -15 066 degrees QTc Int : 452 ms Normal sinus rhythm Normal ECG When compared with ECG of 04-JAN-2022 18:16, No significant change was found Confirmed by ARTHUR MONSON, YUMIKO ([id number]), editor sound HANNAH BRAY ([id number]) on 01/12/2022 1:17:14 PM Referred By: ENE Confirmed By:YUMIKO GIBSON MD
--- NOTE | 2022-01-07 08:36 | NURSING ---
THIS NURSE ENTERED PT ROOM AND ASKED PT IF HE WAS HAVING ANY PAIN. PT STATED YES IN MY CHEST. VITALS DONE,RN NOTIFIED AND CALLED. EKG ORDERED.
[2022-01-07] MEDS: Mag Hydrox/Al Hydrox/Simeth 30 ML UDC 15 ML PO (10:13)
--- NOTE | 2022-01-07 10:13 | NURSING ---
Dr jc office [facility] neurolog[facility] called. scheduled appt for 01-26-22 at 10 am. Will leave note for someone to schedule transport,
[2022-01-07] MEDS: Tuberculin,Purif.prot.deriv. 50 TU/ML Vial 0.1 ML ID (10:17)
[2022-01-07 10:30] VITALS: PULSE 86; RESP 18; O2SAT 96
[2022-01-07] MEDS: oxyCODONE 5 MG Tablet 2.5 MG PO ×2 (10:32→17:59)
--- NOTE | 2022-01-07 10:35 | NURSING ---
PT NOTIFIED OF POSITIVE COVID STAFF MEMBER. PT HAD ON PHONE FROM [place] AND THIS NURSE NOTIFIED HER AND ASKED IF SHE UNDER STOOD. STATED YES.
[2022-01-07 10:40] LABS: Bedside Glucose 205 mg/dL (74-106)
--- NOTE | 2022-01-07 11:58 | CASEMGMT ---
Social Work Met with patient for initial assessment. is on FaceTime from [place]. Introduced self and role. Discussed code status and MOLST form. Pt confirms full code. MOLST form communicated to , placed in chart. Explained Medicare benefit. Pt does not have secondary insurance nor can pay copays. The goal is to DC by day 21st day on 01/26. Pt states I hope not to be here by day 20. Pt does need to return to [facility] and be able to complete steps to get into apt. Pt lives with 13 y.o. nephew whom he refers to as his son. Pt has raised him since he was 2 y.o. Pt's sister at 40 y.o. Pt's other sister lives in [facility] and not doing well. Pt also has a 22 y.o son and 15 y.o. dtr that are his 's children that live with her in [place]. Pt explains he got in 2019 in [place], but has not been back to visit since January 2020 d/t COVID. SW to continue to follow for DC planning. Talia Duncan, INSURANCE AUDITOR WIRE PREPARATION MACHINE TENDER
--- NOTE | 2022-01-07 14:17 | NURSING ---
Received call from [facility] in regards to consult on 01/05/22 informed them that patient now has appt with NEUROLOGIST dr. Carrasco. on 01-27-22. Patient to do all neurology follow-ups with him for now on.
[2022-01-07 15:58] VITALS: BP 143/88; PULSE 85; RESP 18; TEMP 36.8; O2SAT 97
[2022-01-07 16:45] LABS: Bedside Glucose 202 mg/dL (74-106)
[2022-01-07 21:21] LABS: Bedside Glucose 205 mg/dL (74-106)
[2022-01-07] MEDS: Insulin Glargine-YFGN 100 UNIT/ML Pen 18 UNIT SC (21:36)
[2022-01-07] MEDS: Pravastatin 80 MG Tablet PO (21:36)
[2022-01-08] MEDS: amLODIPine 5 MG Tablet PO (05:19)
[2022-01-08] MEDS: Clopidogrel Bisulfate 75 MG Tablet PO (05:19)
[2022-01-08 05:25] VITALS: BP 155/75; PULSE 83
[2022-01-08 06:07] LABS: Anion Gap 7 (5-15); BUN 59 mg/dL (7-18); BUN/Creat Ratio 22.2 RATIO (10-20); Calcium,Total 8.7 mg/dL (8.5-10.1); Chloride 109 mmol/L (98-107); Creatinine, Serum 2.66 mg/dL (0.70-1.30); EST Glomerular Filtration Rate 26 mL/min (>60); Est Glom Filt Rate - Afr Amer 32 mL/min (>60); Estimated Creatinine Clearance 30.11 ml/min; Glucose 195 mg/dL (74-106); Sodium Level 138 mmol/L (136-145)
[2022-01-08 06:21] LABS: Bedside Glucose 185 mg/dL (74-106)
[2022-01-08] MEDS: Insulin Lispro 100 UNIT/ML INSULN.PEN SC ×2 (07:58→12:05)
[2022-01-08] MEDS: Aspirin 81 MG TAB.CHEW PO (08:00)
[2022-01-08] MEDS: oxyCODONE 5 MG Tablet 2.5 MG PO ×3 (08:02→21:40)
[2022-01-08] MEDS: Senna/Docusate Sodium 1 Tablet PO ×2 (08:05→17:12)
--- NOTE | 2022-01-08 10:27 | NS ---
Provided copy of daily specials/first choice menu w/ directions on how to order
--- NOTE | 2022-01-08 10:28 | NURSING ---
CONSULT HAS BEEN CALLED WITH DR. JEFFREY RODRIGUEZ. WAITING TO HERE BACK.
[2022-01-08 10:46] LABS: Bedside Glucose 166 mg/dL (74-106)
[2022-01-08 11:25] VITALS: PULSE 20; RESP 105; TEMP 36.3; O2SAT 97
--- NOTE | 2022-01-08 12:01 | CON.PCM.RE_ITS ---
Assessment & Plan Assessment/Plan (1) AIME (acute kidney injury): (2) Hypertension: (3) Acute right arterial ischemic stroke, MCA (middle cerebral artery): (4) Diabetes mellitus: PLAN: We were consulted for elevated creatinine. Patient has not been seen by a director of broadcast in the past. He does have a history of hypertension and diabetes mellitus type 2 (states diagnosed with diabetes in his 50s). Not on any routine medications at home for diabetes or hypertension. Last hemoglobin A1c 13.1% on 11/10/2021. In reviewing past creatinine trends: 03/21/2021 creatinine 1.16 mg/dL. Gap in lab work until 11/10/2021, creatinine 2.06 mg/dL. On 01/04/2022 creatinine 2.36 mg/dL, 01/05/2022 creatinine 1.90, 01/07/2022 creatin ine 2.59 and today creatinine is 2.66 mg/dL. Fluctuating creatinine trends during this hospitalization possibly from hemodynamic disturbance. Blood pressures were significantly elevated but recently controlled, currently on amlodipine. We will obtain bladder scan to rule out obstructive component contributing to AIME. Last UA showed 500 protein, occult blood 150. Urine microalbumin/creatinine ratio 380 mg/g October 2020. Patient likely has CKD stage III, baseline creatinine is unknown but may be around 2 mg/dL. Patient has risk factors for developing CKD with history of uncontrolled HTN and DM as well as history of chronic diastolic heart failure. At this time there is no acute indication for [employer]. Volume status acceptable, potassium and acid-base acceptable. We will obtain UA. Obtain renal ultrasound. Check urine protein creatinine ratio. Patient did receive a one-time dose of furosemide a few days ago, no need for diuretic today. Encouraged patient to elevate legs when sitti ng. He is trying to limit fluids to around 1.5 L a day. No recent NSAIDs. In order to slow progression of CKD patient will need good blood pressure and good blood sugar control. We will continue to review, educate and discuss this with patient. He expresses concern about taking medications, fearful of side effects of medications, so routine medications may be difficult for patient once discha rged from the hospital. We will continue to follow the patient. Further orders forthcoming as hospitalization evolves. Thank for allowing us participate in the care of Mr. Woodward. HPI Consult Data Date of Consult: 01/08/22 HPI Narrative HPI Narrative: JAMES WOOWDARD, is a 61 M with past medical history significant for hypertension, diabetes mellitus type 2, seizures, diastolic heart failure who came to the emergency room on 01/04/2022 with complaints of left-sided weakness/confusion. In the emergency room blood pressure significantly elevated with systolic blood pressure greater than 200, blood sugar was greater than 600. Through work-up patient was found to have a right middle cerebral artery stroke with left hemiparesis. He was discharged/transferred to TCU. Patient did have echo on January 04: normal LV size, estimated EF 65%, left ventricular systolic function normal, stage I diastolic dysfunction. We were consulted for elevated creatinine. Patient states he has not been seen by director of broadcast in the past. Patient states in past he was told he did have elevated creatinine from too much diuretics. Patient reports he does not take many medications at home as he is fearful of their side effects. He states he is not taking any blood pressure medications. States does take occasional NSAID for pain. Patient denies any nausea or vomiting. Feels that he is completely emptying his bladder. Denies dysuria or hematuria. Reports good appetite during this hospitalization. Patient states few days ago he noticed worsening lower extremity edema but states this has improved. [facility] Medical History Acute and chronic respiratory failure with hypoxia Benign essential hypertension Brain mass CHF (congestive heart failure) CHF (congestive heart failure) Diabetes HTN (hypertension) Hyperglycemia Peripheral neuropathy Pneumonia due to COVID-19 virus Seizure Seizures Smoker Type 2 diabetes mellitus Home Medications insulin lispro [Humalog KwikPen Insulin] 10 - 15 unit SUBCUT [facility] 02/12/21 [History Last Taken 03/08/21] amlodipine 5 mg PO DAILY 01/06/22 [History Last Taken Unknown] aspirin 81 mg PO BREAKFAST 01/06/22 [History Last Taken Unknown] clopidogrel 75 mg PO DAILY 01/06/22 [History Last Taken Unknown] furosemide 20 mg PO DAILY 01/06/22 [History Last Taken Unknown] insulin glargine-yfgn 18 unit SUBCUT [facility] 01/06/22 [History Last Taken Unknown] insulin lispro [Humalog KwikPen Insulin] 5 unit SUBCUT TIDCM 01/06/22 [History Last Taken Unknown] insulin lispro [Humalog KwikPen Insulin] See Protocol SUBCUT ACHS & 3AM 01/06/22 [History Last Taken Unknown] oxycodone 2.5 mg PO Q4H PRN PRN 3 Days #7 tab 01/06/22 [Rx Last Taken Unknown] pravastatin 80 mg PO QHS 01/06/22 [History Last Taken Unknown] Allergy/AdvReac Type Severity Reaction Status Date / Time hydrocodone bitartrate AdvReac Mild HYPER Verified 01/04/22 18:12 [From Vicodin] lisinopril AdvReac Other Verified 01/04/22 18:12 Family History Other COPD (chronic obstructive pulmonary disease) Heart disease Surgical History Status post foot surgery Social History (Updated 01/06/22 @ 20:[address] Alexandro Jules MD) household members: spouse and children number of children: 3 current occupational status: disabled Smoking Status: Never smoker Smokeless tobacco user: chewing tobacco alcohol intake: never substance use type: does not use ROS ROS Narrative As in HPI and past medical history Physical Exam Narrative Const: Alert and orient x3 HEENT: Head is normocephalic, atraumatic, mucous membranes moist Cardio: S1-S2, RRR Respiratory: Lung sounds clear anteriorly and posteriorly no wheeze rhonchi rales noted GI: Abdomen soft, nontender, positive bowel sounds x4 quadrants Extremities: Trace to 1+ pitting edema bilateral lower legs/feet Lab / Micro Data Result Diagrams: 01/07/22 05:55 01/08/22 05:05 Labs: Laboratory Results - last 24 hr 01/07/22 16:31: POC Glucose 202 H 01/07/22 21:10: POC Glucose 205 H 01/08/22 05:05: Sodium 138, Potassium 5.0, Chloride 109 H, Carbon Dioxide 22.0, Anion Gap 7, BUN 59 H, Creatinine 2.66 H, Estim Creat Clear Calc 30.11, Est GFR (MDRD) Af Amer 32 L, Est GFR (MDRD) Non-Af 26 L, BUN/Creatinine Ratio 22.2 H, Glucose 195 H, Calcium 8.7 01/08/22 06:05: POC Glucose 185 H 01/08/22 10:36: POC Glucose 166 H
--- NOTE | 2022-01-08 12:08 | NURSING ---
PT COMPLAINED OF HIS EYES BEING BLURRY AND STATED HE KNOWS WHEN HIS BLOOD SUGAR STARTS GETTING LOW. BLOOD SUGAR RECHECKED,132. PT EATING LUNCH AND STATED HE WILL FINISH IT AND STILL WANTED HIS 5 UNITS OF INSULIN. INSULIN GIVEN, RN AWARE
[2022-01-08 12:10] LABS: Bedside Glucose 132 mg/dL (74-106)
--- NOTE | 2022-01-08 12:54 | US_ITS ---
STUDY: RENAL ULTRASOUND - COMPLETE REASON FOR EXAM: Male, 61 years old. AIME TECHNIQUE: Ultrasound evaluation of the kidneys was performed with real-time and static carranza-scale imaging. COMPARISON: None. FINDINGS: RIGHT KIDNEY: Normal location of the right kidney, which is normal in size. The right kidney measures 11.1 x 5.6 x 4.9 cm. There is a normal cortex of the right kidney. The renal cortex measures 1.2 cm. There is no right renal mass or cyst. There are no right renal calculi. There is no right hydronephrosis. There is mild perinephric fluid. DISTAL RIGHT URETER: There is non-visualization of the distal right ureter. There is no demonstrated right ureterovesical junction calculus. There is no demonstrated right ureteral jet. LEFT KIDNEY: Normal location of the left kidney, which is normal in size. The left kidney measures 11.5 x 4.9 x 5.5 cm. There is a normal cortex of the left kidney. The renal cortex measures 1.4 cm. There is no left renal mass or cyst. There are no left renal calculi. There is no left hydronephrosis. There is mild perinephric fluid. BLADDER: The distended urinary bladder has a volume of 87 ml. The bladder is not well-distended. US/Kidney and Bladder IMPRESSION: Mild bilateral perinephric fluid. Otherwise unremarkable examination. Electronically Signed: Walt Barroso MD at 8:35 EDT ,
[2022-01-08 13:06] LABS: Bedside Glucose 164 mg/dL (74-106)
--- NOTE | 2022-01-08 13:23 | NURSING ---
THIS NURSE INTO ROOM AND PT COMPLAINING OF SMALL NOSE BLEED,THINKS HE SHOULD BE TAKEN OFF PLAVIX. THEN COMPLAINED OF FEELING DIZZY AND SWEATING STATING THINKS SUGAR IS LOW. RECHECKED BLOOD SUGAR,164,VITALS DONE. ASSESSED PT,NO SWEATING AT THIS TIME. LAY ECHOLS [KIDNEY] IN TO SEE PT BEFORE ANY SYMPTOMS. NEW ORDERS BEING PUT IN AT THIS TIME FROM HER. X1 POST BLADDER SCAN,64. REPORTED TO ONESIMO. DR. LUQUE AWARE AND TALKING TO ONESIMO.
--- NOTE | 2022-01-08 13:59 | PCM.PN.RX ---
Progress Note - Pharmacy Subjective: TCU Admission. 61 YOM presented to ER with neurological symptoms. Had elevated blood pressure and blood glucose >525mg/dL. Admitted to the hospital. MRI showed multiple strokes. Aspirin and Plavix recommended for right internal carotid artery atheromatous debris. Admitted to TCU with debility for rehabilitation and strengthening. Objective: Allergies hydrocodone bitartrate [From Vicodin] Adverse Reaction (Mild, Verified 01/04/22 18:12) HYPER lisinopril Adverse Reaction (Verified 01/04/22 18:12) Other CHEST PAIN Current Medications Generic Name Dose Route Start Last Admin Trade Name Freq PRN Reason Stop Dose Admin Acetaminophen 1,000 mg 01/06/22 21:07 Acetaminophen 500 Mg Tablet PO Q6H PRN PRN Pain Score 1-5 Amlodipine Besylate 5 mg 01/07/22 06:00 01/08/22 05:19 Amlodipine 5 Mg Tablet PO 5 mg DAILY FREDERIC Administration Aspirin 81 mg 01/07/22 08:00 01/08/22 08:00 Aspirin 81 Mg Tab.Chew PO 81 mg BREAKFAST FREDERIC Administration Bisacodyl 10 mg 01/06/22 15:27 Bisacodyl 10 Mg Suppository RC X1 PRN Constipation Insulin Glargine 18 unit 01/06/22 22:00 01/07/22 21:36 Insulin Glargine-Yfgn 100 Unit/Ml Pen SC 18 unit QHS FREDERIC Administration Insulin Human Lispro 5 unit 01/06/22 17:45 01/08/22 12:05 Insulin Lispro 100 Unit/Ml Insuln.Pen SC 5 units TIDCM FREDERIC Administration Oxycodone HCl 2.5 mg 01/06/22 21:07 01/08/22 13:44 Oxycodone 5 Mg Tablet PO 2.5 mg Q4H PRN PRN Administration Pain Score 6-10 Pravastatin Sodium 80 mg 01/06/22 22:00 01/07/22 21:36 Pravastatin 80 Mg Tablet PO 80 mg QHS FREDERIC Administration Senna/Docusate Sodium 1 tablet 01/07/22 06:00 01/08/22 08:05 Senna/Docusate Sodium 1 Tablet PO 1 tablet BID FREDERIC Administration Sodium Chloride 10 - 40 ml 01/06/22 21:01 0.9% Saline Lock 10 Ml Syringe IV UD PRN SALINE FLUSH Tuberculin PPD 0.1 ml 01/14/22 10:00 Tuberculin,Purif.Prot.Deriv. 50 Tu/Ml Vial ID 01/14/22 10:01 X1 ONE Problem List (Last Reviewed 01/06/22 @ 20:[address] Alexandro Jules MD) AIME (acute kidney injury) (Acute) Chronic diastolic congestive heart failure (Chronic) Hypertension (Chronic) Hypomagnesemia (Acute) Diabetes mellitus (Acute) Vitamin D deficiency (Acute) Chronic obstructive pulmonary disease (Chronic) Hyperglycemia (Acute) Hypertensive urgency (Acute) Left hemiparesis (Acute) Debility (Acute) Acute right arterial ischemic stroke, MCA (middle cerebral artery) (Acute) Vital Signs Temp Pulse Resp BP Pulse Ox 97.4 F L 20 L 105 H 155/75 H 97 01/08/22 11:25 01/08/22 11:25 01/08/22 11:25 01/08/22 05:25 01/08/22 11:25 Oxygen Delivery Method Room Air Weight: 84 kg Body Mass Index (BMI) 26.5 Sodium 138 mmol/L (136-145) 01/08/22 05:05 Potassium 5.0 mmol/L (3.5-5.1) 01/08/22 05:05 Chloride 109 mmol/L (98-107) H 01/08/22 05:05 Carbon Dioxide 22.0 mmol/L (21.0-32.0) 01/08/22 05:05 Anion Gap 7 (5-15) 01/08/22 05:05 BUN 59 mg/dL (7-18) H 01/08/22 05:05 Creatinine 2.66 mg/dL (0.70-1.30) H 01/08/22 05:05 Est GFR (MDRD) Af Amer 32 mL/min (>60) L 01/08/22 05:05 Est GFR (MDRD) Non-Af 26 mL/min (>60) L 01/08/22 05:05 BUN/Creatinine Ratio 22.2 RATIO (10-20) H 01/08/22 05:05 Glucose 195 mg/dL (74-106) H 01/08/22 05:05 Assessment/Plan: 1. Pain: acetaminophen 1000mg PO Q6H PRN pain 1-5 and oxycodone 2.5mg PO Q4H PRN pain 6-10. Please continue to monitor for increased pain, PRN usage, constipation and respiratory depression. Resident has had 4 doses of oxycodone for pain score 8-9 and has not had any doses of acetaminophen. 2. Bowel: senna/docusate 1T PO BID and bisacodyl 10mg RC daily PRN constipation. Please continue to monitor for constipation and PRN usage. Resident has had documented BM since admission. 3. Stroke: aspirin 81mg PO BREAKFAST and clopidogrel 75mg PO daily. Please continue to monitor for S/S of bleeding and hemoglobin (last 11.2g/dL). 4. Hypertension: amlodipine 5mg PO daily. Please continue to monitor BP (last 155/75). 5. Diabetes Mellitus II: insulin glargine 18units SC QHS and insulin lispro 5units TIDCM. Please continue to monitor for S/S of hypoglycemia, hemoglobin A1c every 3 months or as clinically appropriate (last 13.1% 11/10/21) and blood glucose (last 164mg/dL). 6. Hyperlipidemia: pravastatin 80mg PO QHS. Please continue to monitor lipid panel (last 11/10/21) at least annually and muscle pain. Psychotropic Medications: None Medication Irregularities: None Date of Note:: 01/08/22
[2022-01-08 15:16] VITALS: BP 160/108; PULSE 117
--- NOTE | 2022-01-08 15:18 | NURSING ---
PT BP CONTINUES TO CLIMB. RN AND DR. LUQUE AWARE.
[2022-01-08 15:20] LABS: Bacteria 0 SEEN /hpf (None Seen); Mucous, Urine 0 SEEN /hpf (<or=2+); White Blood Cells 0 SEEN /hpf (0-5)
[2022-01-08 15:36] LABS: Color, Urine Yellow (Yellow); Glucose, Dipstick 50 mg/dl (Normal); Ketone-Dipstick Negative (Negative); Leukocyte Esterase-Dipstick Negative /ul (Negative); Nitrite-Dipstick Negative (Negative); Occult Blood-Urine 150 /ul (Negative); Protein-Dipstick 100 mg/dl (Negative); Urine Bilirubin Dipstick Negative (Negative); Urine Clarity Sl. Cloudy (Clear); Urine Urobilinogen Normal (Normal)
[2022-01-08 15:41] LABS: Protein, Urine (Random) 118.6 mg/dL (<11.9); Protein:Creat Ratio 3121 mg/g CRE (0-200)
[2022-01-08 15:55] LABS: Red Blood Cells-Urine 5-10 SEEN /hpf (0-5); Squamous Epithelial Cells - UA 0-5 SEEN /hpf (0-5)
[2022-01-08 16:21] LABS: Bedside Glucose 103 mg/dL (74-106)
[2022-01-08 17:09] VITALS: BP 160/108; PULSE 117
[2022-01-08] MEDS: Metoprolol Tartrate 25 MG Tablet PO (17:09)
[2022-01-08 18:40] VITALS: BP 170/110; PULSE 110
--- NOTE | 2022-01-08 18:53 | NURSING ---
NOTIFIED OF PT BLOOD PRESSURE AND HEART RATE AFTER GIVING 25MG LOPRESSOR.. PER DR. LUQUE RECHECK IN A HOUR AND IF STILL HIGH CALL HIM BACK. RN AND PAINT MAKER AWARE.
--- NOTE | 2022-01-08 19:25 | NURSING ---
CALLED TO PT ROOM,PT STATED HE WAS NOT FEELING WELL. NAUSEA,FINGERS NUMB,HARD TO SWALLOW,HEADACHE. PAGED DR.KWOK MARTINEZ AND MANAGER CLUB AWARE.
--- NOTE | 2022-01-08 19:40 | NURSING ---
PT STATED HE WAS FEELING BETTER STATED MAYBE I JUST TWISTED MY BACK AND I THINK THE MEDICINE IS WORKING NOW. DR. LUQUE CALLED BACK AND NO NEW ORDERS GIVEN. RN AWARE
[2022-01-08 21:40] LABS: Bedside Glucose 154 mg/dL (74-106)
[2022-01-08] MEDS: Pravastatin 80 MG Tablet PO (21:44)
[2022-01-08] MEDS: Insulin Glargine-YFGN 100 UNIT/ML Pen 18 UNIT SC (21:47)
[2022-01-08 22:00] VITALS: RESP 18; O2SAT 97
--- NOTE | 2022-01-09 01:33 | NURSING ---
At 2100, pt BP was taken and was 158/106. HR was 118. Pt stated feeling better than earlier. Only complaint at this time was generalized pain, especially his RUE. Pt states pain is from working with therapy today. PRN oxycodone administered as ordered for pain rated at a 9/10, moderately effective.
[2022-01-09 05:34] VITALS: BP 133/78; PULSE 108
[2022-01-09] MEDS: Metoprolol Tartrate 25 MG Tablet PO ×2 (05:34→17:01)
[2022-01-09] MEDS: amLODIPine 5 MG Tablet PO (05:35)
[2022-01-09] MEDS: Senna/Docusate Sodium 1 Tablet PO ×2 (05:35→17:01)
[2022-01-09 06:25] LABS: Bedside Glucose 119 mg/dL (74-106)
[2022-01-09] MEDS: Insulin Lispro 100 UNIT/ML INSULN.PEN SC ×2 (07:49→18:17)
[2022-01-09] MEDS: Aspirin 81 MG TAB.CHEW PO (07:49)
[2022-01-09 09:37] LABS: Anion Gap 6 (5-15); BUN 60 mg/dL (7-18); BUN/Creat Ratio 22.1 RATIO (10-20); Chloride 109 mmol/L (98-107); Creatinine, Serum 2.71 mg/dL (0.70-1.30); EST Glomerular Filtration Rate 26 mL/min (>60); Est Glom Filt Rate - Afr Amer 31 mL/min (>60); Estimated Creatinine Clearance 29.56 ml/min; Glucose 154 mg/dL (74-106); Potassium 4.9 mmol/L (3.5-5.1); Sodium Level 138 mmol/L (136-145)
[2022-01-09 10:56] LABS: Bedside Glucose 123 mg/dL (74-106)
[2022-01-09 14:14] VITALS: BP 145/97; PULSE 117; RESP 18; TEMP 37.2; O2SAT 96
[2022-01-09 16:31] LABS: Bedside Glucose 153 mg/dL (74-106)
[2022-01-09 17:01] VITALS: BP 145/97; PULSE 117
--- NOTE | 2022-01-09 19:01 | PCA ---
Addendum entered by Deion Osman 01/10/22 05:13: TIME CHECKER approached patient at 9:00 pm and patient said they would like to take a shower. TIME CHECKER set patient up for shower and patient washed self up with stand by assist. bed sheets were changed. Original Note: This TIME CHECKER offered to help patient with HS care and to get cleaned up for the night. Patient said im pretty tired if i feel like it later i will. For now i would just like to rest will check and offer at a later time.
[2022-01-09 21:41] LABS: Bedside Glucose 281 mg/dL (74-106)
[2022-01-09] MEDS: Pravastatin 80 MG Tablet PO (21:50)
[2022-01-09] MEDS: Insulin Glargine-YFGN 100 UNIT/ML Pen 18 UNIT SC (21:51)
[2022-01-10 05:48] VITALS: BP 128/73; PULSE 83
[2022-01-10] MEDS: Metoprolol Tartrate 25 MG Tablet PO ×2 (05:48→17:35)
[2022-01-10] MEDS: amLODIPine 5 MG Tablet PO (05:48)
[2022-01-10] MEDS: Senna/Docusate Sodium 1 Tablet PO ×2 (05:49→17:35)
[2022-01-10] MEDS: oxyCODONE 5 MG Tablet 2.5 MG PO ×2 (05:55→15:59)
[2022-01-10 06:31] LABS: Bedside Glucose 136 mg/dL (74-106)
[2022-01-10] MEDS: Aspirin 81 MG TAB.CHEW PO (09:04)
[2022-01-10] MEDS: Insulin Lispro 100 UNIT/ML INSULN.PEN SC ×3 (09:04→17:35)
[2022-01-10 10:56] LABS: Bedside Glucose 203 mg/dL (74-106)
[2022-01-10 16:00] VITALS: BP 140/68; PULSE 96; RESP 16; TEMP 37.1; O2SAT 97
[2022-01-10 16:21] LABS: Bedside Glucose 141 mg/dL (74-106)
[2022-01-10 17:35] VITALS: PULSE 88
--- NOTE | 2022-01-10 21:20 | NURSING ---
Upon entering room, pt informs this nurse he has been taking himself to the bathroom and will do whatever he wants. Verbalizes his desire to go home, even AMA. Informed pt if he leaves AMA he may be responsible for his stay on TCU. Pt disputes this idea. Strongly encouraged pt to speak w/ nursing and therapy staff in addition to social work instructor to facilitate this process. Attempted to educate pt on disease process involving poorly controlled DM leading to CVA and other potential sequelae. Does not express any interest in disease education. Will report to oncoming nurse.
[2022-01-10] MEDS: Insulin Glargine-YFGN 100 UNIT/ML Pen 18 UNIT SC (21:33)
[2022-01-10] MEDS: Pravastatin 80 MG Tablet PO (21:33)
[2022-01-10 21:41] LABS: Bedside Glucose 210 mg/dL (74-106)
[2022-01-11] VITALS (10 sets, daily range): BP systolic 123–180; BP diastolic 78–116; PULSE 83–117; RESP 16–18; TEMP 36.2; O2SAT 92–98
[2022-01-11] MEDS: oxyCODONE 5 MG Tablet 2.5 MG PO ×3 (00:27→12:20)
--- NOTE | 2022-01-11 04:21 | NURSING ---
Left voicemail for social work supervisor, Talia, to [id number] on pt's wish to be dc'ed. Pt has a 13-year-old child at home and has someone temporarily staying w/ him at night. Pt also had informed this nurse he feels he is able to care for himself at home. Has been exercising to improve strength and mobility.
[2022-01-11] MEDS: amLODIPine 5 MG Tablet PO (05:00)
[2022-01-11] MEDS: Metoprolol Tartrate 25 MG Tablet PO ×4 (05:00→23:08)
--- NOTE | 2022-01-11 05:11 | NURSING ---
Pt refuses Senna-S. Plans to consume prune juice to promote a bm. Notes he is consuming an adequate amount of water. Will continue to monitor.
[2022-01-11 06:31] LABS: Bedside Glucose 179 mg/dL (74-106)
[2022-01-11] MEDS: Insulin Lispro 100 UNIT/ML INSULN.PEN SC ×3 (07:58→17:56)
[2022-01-11] MEDS: Aspirin 81 MG TAB.CHEW PO (07:58)
--- NOTE | 2022-01-11 10:25 | CASEMGMT ---
Social [facility]. Spoke with pt. Pt is requesting DC - I'm doing everything I would do at home and doing it all by myself. Pt wants to DC 6/7 and denies continued therapy or DME needs. Pt stated he will buy quad cane at [employer]. Offered to send script - pt declined. Plan: DC home 01/12, no needs [facility] [employer] AEROLOGIST
[2022-01-11 11:06] LABS: Bedside Glucose 133 mg/dL (74-106)
--- NOTE | 2022-01-11 12:06 | NURSING ---
This machine sign writer has noted that pt has from [place] on face time since 0830 this AM. requesting pain med before therapy. explained that it can be given next at 1215 and pt agreeable.
--- NOTE | 2022-01-11 13:30 | NURSING ---
Addendum entered by Nahomy Mckinney 01/11/22 13:48: 1340 dr manzano notified, new orders to restart plavix and administer dose 1800 lopressor 25mg early. DC oxyir, pt felt this is what was causing his symptoms, especially his elevated BP/HR. numbness lasted approx 5-6 minutes. NeuroCheck WNLs. will recheck BP in one hour. Family at bedside. Addendum entered by Nahomy Mckinney 01/11/22 13:33: blood sugar 103 Original Note: THIS NURSE CALLED TO PT ROOM. PT COMPLAINING OF LEFT ARM NUMB AND HURTING,EYES BLURRY. VITALS AND BLOOD SUGAR DONE. RN TO ROOM.
[2022-01-11 13:36] LABS: Bedside Glucose 103 mg/dL (74-106)
--- NOTE | 2022-01-11 14:20 | RAD_ITS ---
STUDY: XR Shoulder Min 2 Views REASON FOR EXAM: Male, 61 years old. pain/previous rotator cuff surgery -- groshey, axillary, scapular Y view TECHNIQUE: XR Shoulder Min 2 Views RIGHT COMPARISON: None. FINDINGS: Normal glenohumeral articulation. There is degenerative arthrosis of the acromioclavicular joint without inferior osseous spur formation. Normal acromion. There is an enthesopathic erosion of the humeral head. The soft tissue structures are unremarkable. Normal visualized pulmonary apex. RAD/Shoulder min 2 Views IMPRESSION: Elevated right humeral head with eburnation of the acromion suggest a chronic rotator cuff tear. Electronically Signed: José Luis Padilla MD at 17:07 EDT ,
--- NOTE | 2022-01-11 15:24 | NURSING ---
dr manzano updated on BP, wants pt to have lopressor 25mg at 1800 tonight as normal scheduled.
--- NOTE | 2022-01-11 16:08 | NURSING ---
dr griffiths will be in to see pt tomorrow for rt shoulder injection.
[2022-01-11 16:45] LABS: Bedside Glucose 129 mg/dL (74-106)
--- NOTE | 2022-01-11 19:01 | PCM.DC.SUM ---
Providers Date of Admission: 01/06/22 Primary Care Physician: Dr. Amish Han MD Consultations 01/08/22 08:01 Consult: Nephrology Routine Consulting Provider: Andie Weiss Reason for Consult: Acute kidney failure EMERGENT Consult: No Notified: Yes Date Notified: 01/08/22 Time Notified: 08:01 Method of Notification: Answering Service 01/11/22 13:44 Consult: Orthopedics Routine Consulting Provider: Steve Villa Reason for Consult: rt should pain since 2016 EMERGENT Consult: No MD Notified: Yes Date Notified: 01/11/22 Time Notified: 13:44 Method of Notification: Verbal Reason For Visit: STROKE LIKE SYMPTOMS Diagnosis Discharge Diagnosis (1) AIME (acute kidney injury): Status: Acute Code(s): N17.9 - Acute kidney failure, unspecified (2) Hypertension: Status: Chronic Code(s): I10 - Essential (primary) hypertension (3) Acute right arterial ischemic stroke, MCA (middle cerebral artery): Status: Acute Code(s): I63.511 - Cerebral infarction due to unspecified occlusion or stenosis of right middle cerebral artery (4) Diabetes mellitus: Status: Acute Code(s): E11.9 - Type 2 diabetes mellitus without complications Medications at Discharge Home Medications aspirin 81 mg PO BREAKFAST 01/06/22 insulin glargine-yfgn 18 unit SUBCUT QHS 01/06/22 insulin lispro [Humalog KwikPen Insulin] 5 unit SUBCUT TIDCM 01/06/22 amlodipine 5 mg PO DAILY 30 Days #30 tab 01/11/22 clopidogrel 75 mg PO DAILY 30 Days #30 tab 01/11/22 metoprolol tartrate 25 mg PO BID 30 Days #60 tab 01/11/22 pravastatin 80 mg PO QHS 30 Days #30 tab 01/11/22 Hospital Course Operations None Procedures None Summary of Care Provided Minutes Spent on Discharge: 35 Hospital Course: 61 year old male with below past medical history hospitalized for 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 Resident has worsening kidney function, follow up Dr. Adrian. 01/12/2022 Dr. Villa to perform right subacromial bursa steroid injection, resident states he would like to have reverse right total shoulder replacement surgery. Discharge home 01/12/2022, no needs. Physical Exam Const alert General Appearance: cooperative HEENT normocephalic Eyes PERRL and EOMs intact bilaterally Neck supple, no JVD and no carotid bruits Resp normal respiratory effort, normal air movement and clear to auscultation bilaterally Cardio regular rate and regular rhythm GI normal to inspection, nondistended, normoactive bowel sounds, non-tender and non-distended Extremity normal capillary refill General Extremity: Negative for edema Skin no rashes or lesions noted General Skin Exam: no breakdown Psych affect normal Appearance: appropriate Weight / BMI Weight Weight: 84 kg Body Mass Index (BMI) 26.5 ABG / Lab / Microbiology Data Result Diagrams: 01/07/22 05:55 01/09/22 08:25 Laboratory: Laboratory Results - last 24 hr 01/10/22 21:26: POC Glucose 210 H 01/11/22 06:22: POC Glucose 179 H 01/11/22 10:57: POC Glucose 133 H 01/11/22 13:27: POC Glucose 103 01/11/22 16:41: POC Glucose 129 H Radiography Diagnostic Testing: Radiology Impression Shoulder X-Ray 01/11/22 14:20 IMPRESSION: Elevated right humeral head with eburnation of the acromion suggest a chronic rotator cuff tear. Electronically Signed: José Luis Padilla MD at 17:07 EDT Reading Location ID and State: [address] [place] [address] , Service support , D/C Instructions Discharge Diet: No restrictions Discharge Activity: Return to Normal Activity, May Shower and Use Walker Weight Bearing Status: Weight bearing as tolerated Call your doctor if you observe: Fever of 101 or Higher, Inability to urinate, Inability to have a bowel movement, Shortness of breath, Dizziness, Fainting spells, Swelling in the ankles, Chest pain and Uncontrolled pain Additional Instructions: Discharge home 01/12/2022, no needs. Please Follow Up With: Fritz Caruso MD When: As scheduled. Meaningful Use Info Meaningful Use Diagnoses (Choose all that apply): Ischemic CVA CVA Therapy Assessed for PT,OT and/or ST?: Yes Ischemic Stroke Antithrombotic order at d/c?: Yes Dx of Atrial fib/flutter?: No Statins at discharge?: No Reason Statin not ordered: Drug Declined by Patient Primary Dx Acute Ischemic CVA?: Yes IV tPA ordered during stay?: No Reason IV t-PA not ordered: Procedure not Indicated Discharge Plan Admission Admit Date/Time: 01/06/22 14:52 Primary Reason for Your Visit: Debility. Attending Provider: Alexandro Jules Chi Primary Care Provider: Amish Han Consulting Providers: Andie Weiss ; Steve Villa Instructions Additional Instructions / Restrictions: Discharge home 01/12/2022, no needs. Discharge Orders/Prescriptions Prescriptions: New clopidogrel 75 mg Tablet 75 mg PO DAILY 30 Days Qty: 30 RF: 0 metoprolol tartrate 25 mg Tablet 25 mg PO BID 30 Days Qty: 60 RF: 0 Continued aspirin 81 mg tablet,chewable 81 mg PO BREAKFAST RF: 0 insulin lispro [Humalog KwikPen Insulin] 100 unit/mL insulin pen 5 unit subcut TIDCM RF: 0 insulin glargine-yfgn 100 unit/mL (3 mL) insulin pen 18 unit subcut QHS RF: 0 amlodipine 5 mg tablet 5 mg PO DAILY 30 Days Qty: 30 RF: 0 pravastatin 80 mg tablet 80 mg PO QHS 30 Days Qty: 30 RF: 0 Discontinued insulin lispro [Humalog KwikPen Insulin] 100 unit/mL Insulin Pen 10 - 15 unit SUBCUT ACHS RF: 0 oxycodone 5 mg Tablet 2.5 mg PO Q4H PRN PRN (Reason: Pain Score 4-5) 3 Days Qty: 7 RF: 0 clopidogrel 75 mg tablet 75 mg PO DAILY RF: 0 furosemide 20 mg tablet 20 mg PO DAILY RF: 0 insulin lispro [Humalog KwikPen Insulin] 100 unit/mL insulin pen See Protocol unit subcut ACHS & 3AM RF: 0 Referrals / Follow Up: Fritz Caruso MD [STAFF PHYSICIAN] - 01/27/22 9:00 am Amish Han MD [Primary Care Provider] - 01/20/22 11:20 am nAdie Weiss MD [STAFF PHYSICIAN] - Within 1 Week Philip Carrasco MD [STAFF PHYSICIAN] - 01/26/22 10:00 am (please arrive 15 minutes early for paperwork) Disposition Disposition (needs filled in before D/C Order can be placed): Home, Self Care
[2022-01-11 22:41] LABS: Bedside Glucose 129 mg/dL (74-106)
[2022-01-11] MEDS: Insulin Glargine-YFGN 100 UNIT/ML Pen 18 UNIT SC (23:09)
[2022-01-11] MEDS: Pravastatin 80 MG Tablet PO (23:11)
[2022-01-12] MEDS: Acetaminophen 500 MG Tablet 1000 MG PO (00:09)
--- NOTE | 2022-01-12 00:27 | NURSING ---
At 10:30 pm, patient with continued elevated BP 158/107, pulse 117. Notified Dr. Jules. Received order for 1x dose of Metoprolol 25mg po. Will continue to monitor.
--- NOTE | 2022-01-12 00:29 | NURSING ---
Patient c/o chest pain on right side under breast. States it is not radiating but does have a headache now, as well as jaw pain. Continues to have numbness and tingling to BUE, which he states has been ongoing. EKG obtained showing sinus tachycardia and left axis deviation. BP currently 155/107, pulse 116. Dr. Jules notified, new orders received for Hydralazine 25mg x 1 dose po, Lorazepam 0.5mg x 1 dose po. Will continue to monitor.
[2022-01-12 00:41] VITALS: BP 149/98; PULSE 113
[2022-01-12] MEDS: LORazepam 0.5 MG Tablet PO (00:41)
[2022-01-12] MEDS: hydrALAZINE 25 MG Tablet PO (00:41)
[2022-01-12 01:16] VITALS: BP 146/98; PULSE 104
--- NOTE | 2022-01-12 01:16 | NURSING ---
Patient sitting in recliner, talking on phone. States chest pain has quit. BP, P obtained. 146/98, 104. Demonstrating some decrease. Will continue to monitor.
[2022-01-12 05:02] VITALS: BP 140/92; PULSE 101
[2022-01-12] MEDS: Clopidogrel Bisulfate 75 MG Tablet PO (05:02)
[2022-01-12] MEDS: Metoprolol Tartrate 25 MG Tablet PO (05:02)
[2022-01-12] MEDS: amLODIPine 5 MG Tablet PO (05:02)
--- NOTE | 2022-01-12 05:06 | NURSING ---
Patient resting comfortably this AM. Denies any pain or discomfort. BP 140/92, P 101. Hydralazine somewhat effective with lowering BP and pulse. Patient states he will still plan on discharging home today.
[2022-01-12 06:25] LABS: Bedside Glucose 106 mg/dL (74-106)
[2022-01-12] MEDS: Aspirin 81 MG TAB.CHEW PO (08:15)
[2022-01-12] MEDS: Insulin Lispro 100 UNIT/ML INSULN.PEN SC (08:16)
[2022-01-12 09:47] VITALS: BP 122/71; PULSE 74; RESP 18; TEMP 36.8; O2SAT 94
[2022-01-12 10:00] VITALS: O2SAT 94
--- NOTE | 2022-01-12 11:24 | CON.PCM_ITS ---
Assessment & Plan Assessment/Plan (1) Rotator cuff rupture, complete: QUALIFIERS: Rotator cuff tear trauma status: traumatic Encounter type: initial encounter Laterality: right Qualified Code(s): S46.011A - Strain of muscle(s) and tendon(s) of the rotator cuff of right shoulder, initial encounter PLAN: Patient has a known chronic right rotator cuff tear since 2017 he has MRI evidence of atrophy of the supra and infraspinatus muscle bellies. I did offer him a steroid injection today for which he declined as he has not had much success in the past with them. In addition to the chronic rotator cuff tear he has significant stiffness in the shoulder I discussed with him surgical options for chronic a repairable rotator cuff tears include superior capsular reconstruction and reverse shoulder arthroplasty. Considering his comorbidities at this time I do not see orthopedic surgical intervention happening until he is more stable. I did explain to him that I do not perform either 1 of these 2 procedures. HPI Consult Data Date of Consult: 01/12/22 HPI Narrative HPI Narrative: JAMES RICO, is a 61 M is known to the practice. He is currently in the transitional care unit after strokelike symptoms. He has chronic unchanged right shoulder complaints since 2017 there has been no new event there is no sign of infection and his symptoms have not changed. He complains of pain with any attempted shoulder range of motion he has received multiple injections in the past for which she feels have not provided him with any relief. He has a known chronic rotator cuff tear massive. He had a previous rotator cuff repair with Dr. Che mayes in 2012 and then he had a significant trauma in 2017 where he retore for the supraspinatus and infraspinatus. He did have an MRI in September 2018 demonstrating this massive t ear with atrophy of the supraspinatus and infraspinatus muscle bellies. He has also seen Dr. Odonnell for this was diagnosed with adhesive capsulitis and RSD in addition to his chronic rotator cuff tear and she recommended referral to a tertiary care center for surgical intervention. [facility] Medical History Acute and chronic respiratory failure with hypoxia Benign essential hypertension Brain mass CHF (congestive heart failure) CHF (congestive heart failure) Diabetes HTN (hypertension) Hyperglycemia Peripheral neuropathy Pneumonia due to COVID-19 virus Seizure Seizures Smoker Type 2 diabetes mellitus Home Medications aspirin 81 mg PO BREAKFAST 01/06/22 [History Last Taken Unknown] insulin glargine-yfgn 18 unit SUBCUT QHS 01/06/22 [History Last Taken Unknown] insulin lispro [Humalog KwikPen Insulin] 5 unit SUBCUT TIDCM 01/06/22 [History Last Taken Unknown] amlodipine 5 mg PO DAILY 30 Days #30 tab 01/11/22 [Rx Last Taken Unknown] clopidogrel 75 mg PO DAILY 30 Days #30 tab 01/11/22 [Rx Last Taken Unknown] metoprolol tartrate 25 mg PO BID 30 Days #60 tab 01/11/22 [Rx Last Taken Unknown] pravastatin 80 mg PO QHS 30 Days #30 tab 01/11/22 [Rx Last Taken Unknown] Allergy/AdvReac Type Severity Reaction Status Date / Time hydrocodone bitartrate AdvReac Mild HYPER Verified 01/04/22 18:12 [From Vicodin] lisinopril AdvReac Other Verified 01/04/22 18:12 Family History Other COPD (chronic obstructive pulmonary disease) Heart disease Surgical History Status post foot surgery Social History (Updated 01/06/22 @ 20:[address] Alexandro Jules MD) household members: spouse and children number of children: 3 current occupational status: disabled Smoking Status: Never smoker Smokeless tobacco user: chewing tobacco alcohol intake: never substance use type: does not use Physical Exam Const alert, oriented x3 and no apparent distress Extremity Extremity Narrative: Right shoulder with no swelling erythema no sign of infection previous arthroscopic portals are well-healed he is nontender to palpation he has very limited range of motion with -5 degrees of external rotation forward flexion only to 45 abduction to 60. Passive range of motion is not much more than this. There is no skin changes around the shoulder is neurovascular intact radial median and ulnar nerves. Compartments are soft. There is no shoulder instability there is atrophy noted in the supra and infra scapular fossa Lab / Micro Data Result Diagrams: 01/07/22 05:55 01/09/22 08:25 Labs: Laboratory Results - last 24 hr 01/11/22 13:27: POC Glucose 103 01/11/22 16:41: POC Glucose 129 H 01/11/22 20:23: POC Glucose 129 H 01/12/22 06:10: POC Glucose 106 Radiology Impression Shoulder X-Ray 01/11/22 14:20 IMPRESSION: Elevated right humeral head with eburnation of the acromion suggest a chronic rotator cuff tear. Electronically Signed: José Luis Padilla MD at 17:07 EDT Reading Location ID and State: [email or web address] / ID , Service support ,
--- NOTE | 2022-01-13 08:36 | NURSING ---
Collar Setter Overlock Note: Interview completed for MDS Section F on 01/11/22. Information entered this date.
--- NOTE | 2022-01-18 09:48 | MDS.RN ---
Information for the mds was obtained from review of the clinical record, interview of resident, staff, and direct observation of resident's care.
== END 2022-01-12 11:30 | disposition home or self-care (01) | DRG 57 ==
PROVIDERS: Nurse Practitioner Adult Health; Admitting Provider Family Medicine Geriatric Medicine; PCP Family Medicine; Visit Provider Family Medicine Geriatric Medicine
DX: I69.354 Hemiplegia and hemiparesis following cerebral infarction affecting left non-dominant side (principal); I13.0 Hypertensive heart and chronic kidney disease with heart failure and stage 1 through stage 4 chronic kidney disease, or unspecified chronic kidney disease; I50.32 Chronic diastolic (congestive) heart failure; E11.42 Type 2 diabetes mellitus with diabetic polyneuropathy; E11.22 Type 2 diabetes mellitus with diabetic chronic kidney disease; J44.9 Chronic obstructive pulmonary disease, unspecified; Z79.4 Long term (current) use of insulin; N18.30 Chronic kidney disease, stage 3 unspecified; E78.5 Hyperlipidemia, unspecified; F17.220 Nicotine dependence, chewing tobacco, uncomplicated; Z79.899 Other long term (current) drug therapy; Z79.02 Long term (current) use of antithrombotics/antiplatelets; Z79.82 Long term (current) use of aspirin; Z86.16 Personal history of COVID-19
CPT/HCPCS: 36415; 73030; 76770; 80048; 81001; 82570; 82962; 84156; 85025; 93005; 97110; 97116; 97162; 97166; 97530; 97535; 97802; 99406

== ENCOUNTER → 2022-02-18 | Outpatient (CLI) | payer MEDICARE, SELFPAY ==
--- NOTE | 2022-02-18 16:35 | CT_ITS ---
STUDY: CTA NECK WITH CONTRAST REASON FOR EXAM: Male, 61 years old. Carotid stenosis on ultrasound. CVA in August. Left sided weakness. RADIATION DOSAGE (If Supplied By Facility): CTDIvol = ( 25.20 ) mGy, DLP = ( 537.73 ) mGycm TECHNIQUE: CT angiography with multi-detector data acquisition was performed from the aortic arch to the skull base following intravenous administration of IV 100mL [id number]-370. MIP images were reconstructed from the axial data set. Post-processing of the angiographic images was performed, with multiplanar reformation and 3D reconstruction. Individualized dose optimization techniques were used for this CT. COMPARISON: Carotid ultrasound, 01/05/2022 FINDINGS: AORTIC ARCH: Normal visualized aortic arch. Normal origins of the brachiocephalic, left common carotid, and left subclavian arteries. RIGHT CAROTID ARTERIES: Normal right common carotid artery (CCA). Minimal carotid plaque at the bifurcation extending into the carotid bulb. There is less than 50% stenosis. Normal origin of the right internal carotid (ICA) artery without a hemodynamically significant stenosis. Normal visualized cervical portion of the right internal carotid artery. Normal origin of the right external carotid artery (ECA). LEFT CAROTID ARTERIES: Normal left common carotid artery (CCA). Normal left common carotid bulb. Normal origin of the left internal carotid (ICA) artery without a hemodynamically significant stenosis. Normal visualized cervical portion of the left internal carotid artery. Normal origin of the left external carotid artery (ECA). VERTEBRAL ARTERIES: Normal bilateral vertebral arteries. CT/CTA Neck W/WO Contrast IMPRESSION: 1. Atherosclerotic changes of the right carotid bulb is no evidence of significant carotid stenosis. 2. Normal left carotid artery bilateral vertebral arteries. Electronically Signed: Eric Reed DO at 22:16 EDT Reading Location ID and State: [address] [place] [address] Tel [phone], Service support ,
[2022-02-18 17:10] LABS: CREATININE FINGERSTICK 1.8 mg/dL (0.70-1.30)
== END | disposition home or self-care (01) ==
LOC: CT 16:34
PROVIDERS: PCP Family Medicine; Referring Provider Surgery Vascular Surgery; Visit Provider Surgery Vascular Surgery
DX: I65.23 Occlusion and stenosis of bilateral carotid arteries (principal)
CPT/HCPCS: 70498; Q9967

== ENCOUNTER 2022-03-16 00:47 | Inpatient (IN) | payer MEDICARE, SELFPAY ==
[2022-03-16] VITALS (27 sets, daily range): BP systolic 86–138; BP diastolic 70–94; PULSE 68–155; RESP 16–23; TEMP 36.6–36.8; O2SAT 91–98; BMI 29.1; BMI 28.4
--- NOTE | 2022-03-16 00:55 | RAD_ITS ---
STUDY: X-RAY CHEST REASON FOR EXAM: Male, 61 years old. Dyspnea, bilateral rales, edema LE TECHNIQUE: Single AP portable upright view of the chest. 1:36 AM. COMPARISON: Previous chest radiographs of 11/10/2021 and 03/20/2021. FINDINGS: Heart size is mildly enlarged with normal pulmonary vasculature. Thoracic aorta is minimally elongated. There is no pulmonary venous hypertension. The right lateral costophrenic angle remains minimally blunted by pleural thickening or small pleural effusion. Left pleural effusion has resolved. There are chronic streaky and patchy infiltrates in both lower lungs, stable on the right lung while minimally improved on the left, with better visualization of the left hemidiaphragm than on the previous study. The mid to upper lungs are clear. No acute osseous abnormality. There is no demonstrated abnormality of the visualized soft tissue structures of the upper abdomen. RAD/Chest 1 View (Portable) IMPRESSION: Resolution of left pleural effusion, with a stable small right pleural effusion. Chronic cardiomegaly without evidence for pulmonary venous hypertension. Bibasilar pulmonary infiltrates, stable on the right while minimally improved on the left; these infiltrates are most likely due to scarring; no superimposed acute pulmonary edema is identified. Electronically Signed: Kashif Garcia MD at 2:01 EDT ,
--- NOTE | 2022-03-16 00:55 | EKG12_ITS ---
Test Reason : SOB Blood Pressure : / mmHG Vent. Rate : 154 BPM Atrial Rate : 000 BPM P-R Int : 000 ms QRS Dur : 086 ms QT Int : 308 ms P-R-T Axes : 000 -47 010 degrees QTc Int : 493 ms Atrial fibrillation with rapid ventricular response Left axis deviation Poor R wave progression Abnormal ECG Confirmed by DIOR MONSON, REMY ([id number]), editor publications HANNAH BRAY ([id number]) on 03/17/2022 12:48:15 PM Referred By: Confirmed By:REMY RADER MD
--- NOTE | 2022-03-16 01:00 | EDS_ITS ---
HPI History of Present Illness Chief Complaint: Shortness of Breath Detail of Chief Complaint: Increasing shortness of breath with history of CHF Informant: patient and EMS Onset/Context/Timing Onset: Weeks (Shortness of breath started approximately 2 weeks ago) Context: gradual Timing: Continuous and Waxes and wanes Quality: Positive for Dyspnea on exertion; Negative for Orthopnea (States he sleeps with 1 pillow under his feet and 1 pillow under his head.), PND or Wheezing Current Severity: Mild Maximum Severity: Moderate Worsened by: Exertion Relieved by: Nothing Associated Symptoms cough; Negative for rhinorrhea, post nasal drip, ear pain, fever, sore throat, subjective, chills or sweats Chest Pain: Negative for None Narrative Narrative: Patient is a 61-year-old male with history of congestive heart failure, diabetes, iron deficiency anemia on iron, prior stroke with left-sided residual and hypertension who presents because of increased shortness of breath over the past 2 weeks. He denies orthopnea. He does endorse swelling of his lower extremities. He has not been compliant with Lasix because of issues with his creatinine/renal function. He states he has been compliant with his diet. He denies history of IA. He denies history of PE or DVT. He denies leg pain or discoloration. PE Risk Factors: Negative for Cancer, OCP + Smoking + > 35, Prior DVT or PE, Recent immobilization, Recent surgery or Recent travel Prior similar symptoms: Yes (Of heart failure) Recent Illness/Hospitalization: No PFSH [facility] Medical History Acute and chronic respiratory failure with hypoxia Acute hyperglycemia Benign essential hypertension Brain mass CHF (congestive heart failure) CHF (congestive heart failure) Diabetes HTN (hypertension) Hyperglycemia Hypertensive urgency Peripheral neuropathy Pneumonia due to COVID-19 virus Seizure Seizures Smoker Stroke-like symptom TIA (transient ischemic attack) Type 2 diabetes mellitus Home Medications furosemide 40 mg tablet (Lasix) 20 mg PO DAILY 03/16/22 [History Last Taken Unknown] insulin glargine 100 unit/mL subcutaneous solution (Lantus U-100 Insulin) 18 uni t subcut QPM 03/16/22 [History Last Taken Unknown] insulin lispro 100 unit/mL subcutaneous pen (Humalog KwikPen (U-100) Insulin) 5 unit subcut TID 03/16/22 [History Last Taken Unknown] Allergy/AdvReac Type Severity Reaction Status Date / Time hydrocodone bitartrate AdvReac Mild HYPER Verified 01/04/22 18:12 [From Vicodin] lisinopril AdvReac Other Verified 01/04/22 18:12 oxycodone AdvReac Other Verified 03/16/22 00:52 Family History Other COPD (chronic obstructive pulmonary disease) Heart disease Surgical History Status post foot surgery Social History household members: spouse and children number of children: 3 current occupational status: disabled Smoking Status: Never smoker Smokeless tobacco user: chewing tobacco alcohol intake: never substance use type: does not use ROS ROS ED Constitutional Constitutional ED: Denies chills, fever(s), sweats or weight loss Eyes Eyes: Denies blurry vision, change in vision or diplopia ENT ENT ED: Denies ear pain, rhinorrhea or sore throat Cardiovascular Cardiovascular: Denies chest pain, orthopnea, palpitations, paroxysmal nocturnal dyspnea or racing heartbeat Respiratory/Chest Respiratory/Chest: Reports cough, dyspnea and dyspnea on exertion; Denies orthopnea, paroxysmal nocturnal dyspnea or sputum Gastrointestinal Gastrointestinal: Denies abdominal pain, diarrhea, melena, nausea or vomiting Genitourinary Genitourinary ED: Denies dysuria, hematuria or urinary frequency Musculoskeletal Musculoskeletal: Denies arthralgias, back pain or myalgias Neurologic Neurologic: Reports weakness; Denies headache(s) or paresthesias Hematologic/Lymphatic Hematologic/Lymphatic: Denies easy bleeding or easy bruising EXAM Physical Exam Const Vital Signs: 03/16/22 00:47 03/16/22 00:53 Temperature 97.8 F Temperature Source Temporal Pulse Rate 155 H Respiratory Rate 20 H Respiratory Effort Short of Breath Respiratory Pattern Tachypnea Blood Pressure 107/80 Blood Pressure Mean 89 Pulse Ox 94 Oxygen Delivery Method Room Air Positive well developed and unkempt Constitutional Narrative: Patient does not appear well. Patient appears pale. He is tachypneic. He is breathing much more rapidly than 20 times a minute that is documented. General Appearance ED: unkempt, well developed and pallor; Negative for NAD HEENT Reports TM's clear and dry mucous membranes HEENT Narrative: Nares patent. Uvula midline. There is no erythema or exudate. atraumatic Tympanic Membrane ED: Yes TM's clear Mouth ED: Yes dry mucous membranes Mouth: dry mucous membranes Eyes PERRL and EOMs intact bilaterally General Eye ED: Yes pale conjunctiva; Negative for scleral icterus Neck no lymphadenopathy, supple, no meningeal signs and no JVD Neck Narrative: Trachea is midline. There is no in-store expiratory stridor. Resp No normal respiratory effort and No clear to auscultation bilaterally Auscultation: rales bilateral lower (Left greater than right) Cardio no murmurs Rate: tachycardic Rhythm: abnormal rhythm irregularly irregular GI non-tender, non-distended and no masses Auscultation: normoactive bowel sounds Back/Spine no CVA tenderness and normal to inspection General Back: Negative for tenderness Extremity Negative for normal to inspection Extremity Narrative: Patient has pitting edema to the proximal tibia bilaterally General Extremety ED: Yes edema; Negative for tenderness General Extremity: edema Neuro oriented x3, CN's II-XII intact bilaterally and no sensory deficits noted Neuro Narrative: Patient has altered strength and sensation in the left side due to prior stroke. [place] Coma Scale: document GCS findings Spontaneous Obeys Commands Oriented 15 Sensorium / Orientation: alert Psych Appearance: unkempt Skin no wounds General Skin Exam: pallor; Negative for jaundice Lesions: no lesions Rashes: no rashes MDM MDM MDM Narrative Medical decision making narrative: Monitor reveals atrial fibrillation rate of 172. Suspect patient is in congestive heart failure since he has bilateral rales and pedal edema. He was treated with 20 mg of Lasix. CBC was obtained to assess his H&H. Competence of metabolic panel to assess his liver enzymes as well as renal function and electrolytes since he is on a loop diuretic. EKG was obtained to assess for acute ischemia. Troponin and BNP were ordered as well. Patient also received 20 mg of Cardizem for rate control. Suspect this is contributing to his heart failure as well as his noncompliance with Lasix. Patient heart rate did respond to the 20 mg of Cardizem IV push. Patient will receive 30 mg Cardizem tablet p.o. Since patient's GFR is less than 30 he was started on Coumadin. Lab Data Attestation: I reviewed the patient's lab results. Lab results narrative: Patient's had approximately 1 g drop in his hemoglobin from prior labs. Indices are normal. Potassium is 5.8. There is no changes consistent with hyperkalemia. Creatinine is elevated from baseline at 3.36 with a GFR of 20. Lactate is normal at 1.5. Transaminases are unremarkable. Troponin is 62. Blood sugar is elevated 307 with a normal CO2 and anion gap. We will treat with subcu regular insulin. Labs: Laboratory Results - last 24 hr 03/16/22 03/16/22 03/16/22 01:25 01:25 01:25 WBC 8.5 RBC 3.92 L Hgb 10.3 L Hct 33.1 L MCV 84.4 MCH 26.3 L MCHC 31.1 L RDW Std Deviation 46.2 H RDW Coeff of Silvia 15.1 H Plt Count 155 MPV 11.4 Immature Gran % (Auto) 0.200 Neut % (Auto) 76.3 H Lymph % (Auto) 13.8 L [place] % (Auto) 8.2 Eos % (Auto) 1.1 Baso % (Auto) 0.4 Absolute Neuts (auto) 6.5 Absolute Lymphs (auto) 1.17 Nucleated RBC % 0 Sodium 135 L Potassium 5.8 H Chloride 105 Carbon Dioxide 25.0 Anion Gap 5 BUN 58 H Creatinine 3.36 H Estim Creat Clear Calc 23.84 Est GFR (MDRD) Af Amer 24 L Est GFR (MDRD) Non-Af 20 L BUN/Creatinine Ratio 17.3 Glucose 307 H Lactic Acid 1.5 Calcium 8.4 L Total Bilirubin 0.70 AST 23 ALT 52 Alkaline Phosphatase 182 H Troponin I High Sens 62 Total Protein 6.2 L Albumin 3.0 L Globulin 3.2 Albumin/Globulin Ratio 0.9 Radiography Chest X-Ray - ED: 1 View, Read by ED Physician (Independently reviewed and interpreted by me at 0142 as positive for mild congestive heart failure. Cardiac silhouette is unremarkable. Heart size is normal. Osseous structures appear normal. Perihilar regions unremarkable.), Normal, Heart, Mediastinum, Bony Structures, Chronic Changes, CHF and Right Effusion Diagnostic Testing: Clinical Impression(s) from Imaging Studies Chest X-Ray 03/16/22 00:55 IMPRESSION: Resolution of left pleural effusion, with a stable small right pleural effusion. Chronic cardiomegaly without evidence for pulmonary venous hypertension. Bibasilar pulmonary infiltrates, stable on the right while minimally improved on the left; these infiltrates are most likely due to scarring; no superimposed acute pulmonary edema is identified. Electronically Signed: Kashfi Garcia MD at 2:01 EDT , EKG Initial EKG: Attestation: I personally reviewed and interpreted this EKG as follows: Interpretation: Atrial Fibrillation (Ventricular rate is 154. QRS duration 86 ms. QT duration 308 ms. [place] to the left.) Critical Care Time Critical Care Time: Yes Critical care time (excluding procedures): 30-74 minutes (31), Including time spent: (History, physical, documentation, review of prior records, traditional laboratory results, initiation of therapy for A. 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, Discussing w/Consultants and Arranging Admission or Transfer Discharge Plan Triage Chief Complaint: Shortness of Breath ED Provider: Pillo Verdugo Dx/Rx/DC Orders Clinical Impression: Atrial fibrillation with rapid ventricular response, Acute on chronic diastolic congestive heart failure, Chronic kidney disease (CKD) stage G4/A1, severely decreased glomerular filtration rate (GFR) between 15-29 mL/min/1.73 square meter and albuminuria creatinine ratio less than 30 mg/g, Anemia, Hyperglycemia due to type 1 diabetes mellitus Prescriptions: No Action furosemide [Lasix] 40 mg tablet 20 mg PO DAILY Label Comments: TAKE 1 TABLET BY MOUTH ONCE DAILY insulin lispro [Humalog KwikPen Insulin] 100 unit/mL Insulin Pen 5 unit SUBCUT TID insulin glargine [Lantus U-100 Insulin] 100 unit/mL Solution 18 unit SUBCUT QPM Primary Care Provider: Amish Han Referrals: Amish Han MD [Primary Care Provider] - Disposition Disposition: Acute Care Hospital [facility]
[2022-03-16] MEDS: dilTIAZem 25 MG/5 ML Vial 20 MG IV BOLUS (01:28)
[2022-03-16] MEDS: Furosemide 20 MG/2 ML VIAL IV (01:32)
[2022-03-16 01:34] LABS: Absolute Lymphocyte Count 1.17 X10^3/uL (0.83-4.51); Absolute Neutrophil Count 6.5 X10^3/uL (2.0-7.7); Basophil# 0.03 X10^3/uL; Basophil% 0.4 % (0-1); Eosinophil# 0.09 X10^3/uL; Eosinophils% 1.1 % (0-5); Hematocrit 33.1 % (40-54); Hemoglobin 10.3 g/dL (13.0-16.5); Lymphocyte # 1.17 X10^3/ul (0.83-4.51); Lymphocyte % 13.8 % (19-41); Mean Corp Hgb Conc 31.1 g/dL (32-36); Mean Corpuscular Hgb 26.3 pg (27.0-32.0); Mean Corpuscular Volume 84.4 fL (80-94); Mean Platelet Vol. 11.4 fl (6.2-12.0); Monocyte# 0.69 X10^3/uL; Monocyte% 8.2 % (0-10); NRBC Flagged by Analyzer 0 % (0-5); Neutrophil # 6.45 X10^3/uL (2.7-7.7); Neutrophil % 76.3 % (47-70); Platelet Count 155 K/mm3 (150-450); RBC Distribution Width CV 15.1 % (11.6-14.6); RBC Distribution Width SD 46.2 fl (35.1-43.9); Red Blood Count 3.92 M/mm3 (4.6-6.2); White Blood Count 8.5 K/mm3 (4.4-11.0)
[2022-03-16] MEDS: dilTIAZem 30 MG Tablet PO (01:53)
[2022-03-16 01:56] LABS: ALB/GLOB Ratio 0.9 RATIO (0.9-2.4); AST(SGOT) 23 U/L (15-37); Alanine Aminotransfer ALT/SGPT 52 U/L (16-61); Alkaline Phosphatase 182 U/L (45-117); Anion Gap 5 (5-15); BUN 58 mg/dL (7-18); BUN/Creat Ratio 17.3 RATIO (10-20); Calcium,Total 8.4 mg/dL (8.5-10.1); Chloride 105 mmol/L (98-107); Creatinine, Serum 3.36 mg/dL (0.70-1.30); EST Glomerular Filtration Rate 20 mL/min (>60); Est Glom Filt Rate - Afr Amer 24 mL/min (>60); Estimated Creatinine Clearance 23.84 ml/min; Globulin 3.2 g/dL (2.2-4.2); Glucose 307 mg/dL (74-106); Lactic Acid 1.5 mmol/L (0.4-1.9); Potassium 5.8 mmol/L (3.5-5.1); Protein, Total 6.2 g/dL (6.4-8.2); Sodium Level 135 mmol/L (136-145); Troponin-I HS 62 pg/mL (3.0-78.0)
[2022-03-16 02:26] LABS: BNP,B-Type NATRIURETIC PEPTIDE 1060.4 pg/mL (0-100)
[2022-03-16] MEDS: Insulin Lispro 100 UNIT/ML INSULN.PEN 6 UNIT SC (02:26)
--- NOTE | 2022-03-16 02:27 | PCM.HP.STD ---
[facility] - General General Date of Admission: 03/16/22 Date of Service: 03/16/22 Chief Complaint: Dizziness and lightheadedness HPI Narrative JAMES RICO, is a 61 M who presents to the emergency room with chief complaint of dizziness and lightheadedness. Patient has had symptoms worsening throughout the day. He has a significant past medical history of stroke chronic kidney disease and suspected congestive heart failure all worsening over the past month. The patient admits to being stubborn with medication i.e. noncompliant. He has no recollection of past history of atrial fibrillation. He is currently in atrial fibrillation with rapid ventricular response with rate improving after dose of Cardizem. Patient denies any chest pain but is short of breath and gets worse with exertion. Patient denies any fever chills or abnormal muscle aches or loss of taste or smell. He will be admitted to progressive care unit for management of atrial fibrillation with rapid ventricular response with underlying CHF as well. [facility] Medical History Acute and chronic respiratory failure with hypoxia Acute hyperglycemia Benign essential hypertension Brain mass CHF (congestive heart failure) CHF (congestive heart failure) Diabetes HTN (hypertension) Hyperglycemia Hypertensive urgency Peripheral neuropathy Pneumonia due to COVID-19 virus Seizure Seizures Smoker Stroke-like symptom TIA (transient ischemic attack) Type 2 diabetes mellitus Home Medications furosemide 40 mg tablet (Lasix) 20 mg PO DAILY 03/16/22 [History Last Taken Unknown] insulin glargine 100 unit/mL subcutaneous solution (Lantus U-100 Insulin) 18 unit subcut QPM 03/16/22 [History Last Taken Unknown] insulin lispro 100 unit/mL subcutaneous pen (Humalog KwikPen (U-100) Insulin) 5 unit subcut TID 03/16/22 [History Last Taken Unknown] Allergy/AdvReac Type Severity Reaction Status Date / Time hydrocodone bitartrate AdvReac Mild HYPER Verified 01/04/22 18:12 [From Vicodin] lisinopril AdvReac Other Verified 01/04/22 18:12 oxycodone AdvReac Other Verified 03/16/22 00:52 Family History Other COPD (chronic obstructive pulmonary disease) Heart disease Surgical History Status post foot surgery Social History household members: spouse and children number of children: 3 current occupational status: disabled Smoking Status: Never smoker Smokeless tobacco user: chewing tobacco alcohol intake: never substance use type: does not use ROS Constitutional Constitutional: Denies chills or fever(s) Eyes Eyes: Denies blurry vision ENT HEENT: Denies abnormal hearing Cardiovascular Cardiovascular: Reports palpitations; Denies chest pain Respiratory/Chest Respiratory/Chest: Reports shortness of breath with exertion; Denies cough Gastrointestinal Gastrointestinal: Denies abdominal pain Genitourinary Genitourinary: Denies dysuria Musculoskeletal Musculoskeletal: Denies back pain Integumentary Integumentary: Denies dry skin Neurologic Neurologic: Denies abnormal gait Psychiatric Psychiatric: Denies anxiety Vital Signs Vital Signs Vital Signs: 03/16/22 00:47 03/16/22 00:53 Temperature 97.8 F Temperature Source Temporal Pulse Rate 155 H Respiratory Rate 20 H Respiratory Effort Short of Breath Respiratory Pattern Tachypnea Blood Pressure 107/80 Blood Pressure Mean 89 Pulse Ox 94 Oxygen Delivery Method Room Air Weight Weight: 203 lb 4.259 oz Body Mass Index (BMI) 29.1 Physical Exam Const oriented x3 HEENT normocephalic and head/scalp atraumatic Eyes PERRL and EOMs intact bilaterally Lymph Lymphatic: no lymphadenopathy noted Resp normal respiratory effort Effort and Inspection: tachypneic Auscultation: Negative for wheezes Cardio S1 normal heart sound, S2 normal heart sound, no murmurs, no rub and no gallops Rhythm: abnormal rhythm irregularly irregular GI normal to inspection, nondistended, normoactive bowel sounds Extremity normal capillary refill General Extremity: clubbing Neuro Speech: speech normal Motor Exam: Negative for general weakness Psych thought process normal Appearance: appropriate Results Lab / Micro Data Result Diagrams: 03/16/22 01:25 03/16/22 01:25 Labs: Laboratory Results - last 24 hr 03/16/22 01:25: WBC 8.5, RBC 3.92 L, Hgb 10.3 L, Hct 33.1 L, MCV 84.4, MCH 26.3 L, MCHC 31.1 L, RDW Std Deviation 46.2 H, RDW Coeff of Silvia 15.1 H, Plt Count 155, MPV 11.4, Immature Gran % (Auto) 0.200, Neut % (Auto) 76.3 H, Lymph % (Auto) 13.8 L, [place] % (Auto) 8.2, Eos % (Auto) 1.1, Baso % (Auto) 0.4, Absolute Neuts (auto) 6.5, Absolute Lymphs (auto) 1.17, Nucleated RBC % 0 03/16/22 01:25: Sodium 135 L, Potassium 5.8 H, Chloride 105, Carbon Dioxide 25.0, Anion Gap 5, BUN 58 H, Creatinine 3.36 H, Estim Creat Clear Calc 23.84, Est GFR (MDRD) Af Amer 24 L, Est GFR (MDRD) Non-Af 20 L, BUN/Creatinine Ratio 17.3, Glucose 307 H, Calcium 8.4 L, Total Bilirubin 0.70, AST 23, ALT 52, Alkaline Phosphatase 182 H, Troponin I High Sens 62, Total Protein 6.2 L, Albumin 3.0 L, Globulin 3.2, Albumin/Globulin Ratio 0.9 03/16/22 01:25: Lactic Acid 1.5 03/16/22 01:25: B-Natriuretic Peptide 1060.4 H Radiology Impression Chest X-Ray 03/16/22 00:55 IMPRESSION: Resolution of left pleural effusion, with a stable small right pleural effusion. Chronic cardiomegaly without evidence for pulmonary venous hypertension. Bibasilar pulmonary infiltrates, stable on the right while minimally improved on the left; these infiltrates are most likely due to scarring; no superimposed acute pulmonary edema is identified. Electronically Signed: Kashif Garcia MD at 2:01 EDT , Assessment & Plan Assessment/Plan (1) Hyperlipidemia: QUALIFIERS: Hyperlipidemia type: unspecified Qualified Code(s): E78.5 - Hyperlipidemia, unspecified (2) CHF exacerbation: QUALIFIERS: Heart failure type: unspecified Qualified Code(s): I50.9 - Heart failure, unspecified (3) Left hemiparesis: (4) Diabetes mellitus: (5) AIME (acute kidney injury): (6) Atrial fibrillation with RVR: PLAN: Plan 1 atrial fibrillation with rapid ventricular response?admit patient to progressive care unit, continue Cardizem drip for rate control patient initiated on Coumadin therapy in the emergency room and will check an INR in the morning. Discussed patient the risks of atrial fibrillation with regard to stroke and his past history of stroke therefore anticoagulation is necessary. However, Eliquis or Xarelto are unable to be used due to his poor renal function. 2. CHF exacerbation?patient received a dose of Lasix in the emergency room and will continue to monitor his respiratory status. Order echocardiogram. May consider cardiology consult in the a.m. 3. Diabetes?sliding scale insulin 4. Acute kidney injury?repeat BMP in the morning 5. DVT prophylaxis?patient on Coumadin Charges/Coding Visit Charges OBSV E&M: 58774 Initial observation care L2
[2022-03-16 02:51] LABS: Bedside Glucose 273 mg/dL (74-106)
--- NOTE | 2022-03-16 05:55 | ECHOD_ITS ---
Reason For Study: CHF Procedure This was a 2D Doppler, Color Flow transthoracic echocardiogram. The exam was of adequate technical quality. Exam performed portable in patient room. Left Ventricle Normal LV size. Moderate concentric left ventricular hypertrophy. Left ventricular systolic function is normal. The estimated ejection fraction is 55 %. Diastolic function is indeterminate. No regional wall motion abnormalities noted. Right Ventricle Normal RV size. Normal systolic function. Atria The left atrium is moderately enlarged. The right atrium is mildly enlarged. No doppler evidence for ASD. Mitral Valve There is no mitral annular calcification. Mild focal mitral valve calcification of the anterior leaflet. Moderate (2+) mitral valve insufficiency. Tricuspid Valve Normal tricuspid valve. Moderately severe (3+) tricuspid valve insufficiency. Right ventricular systolic pressure estimated to be 25 mmHg. Aortic Valve Trisinus/trileaflet aortic valve. Mild focal aortic valve calcification. Pulmonic Valve The pulmonic valve is not well visualized. Great Vessels Normal sized aortic root. Pericardium/Pleural Trivial pericardial effusion. There are no echocardiographic indications of cardiac tamponade. MMode/2D Measurements & Calculations LVIDd: 4.1 cm IVSd: 1.4 cm Ao root diam: 2.9 cm LVIDs: 2.9 cm LVPWd: 1.5 cm LA dimension: 4.3 cm FS: 29.7 % LAV(MOD-bp): 78.5 ml LA A4 area: 24.6 cm2 RA A4 area: 18.0 cm2 LAV(MOD-bp) Indexed: 37.8 ml/m2 LAV(MOD-sp2): 64.8 ml LAV(MOD-sp4): 82.0 ml Doppler Measurements & Calculations MV E max brandon: 93.3 cm/sec Ao V2 max: 110.1 cm/sec LV V1 max: 85.6 cm/sec Ao max P.9 mmHg LV V1 max P.0 mmHg Ao V2 mean: 79.9 cm/sec LV V1 mean P.8 mmHg Ao mean P.9 mmHg LV V1 mean: 62.7 cm/sec Ao V2 VTI: 19.0 cm LV V1 VTI: 14.2 cm MR max brandon: 463.3 cm/sec PA V2 max: 71.4 cm/sec TR max brandon: 231.9 cm/sec MR max P.0 mmHg PA V2 mean: 47.5 cm/sec TR max P.8 mmHg MR mean brandon: 346.1 cm/sec MR mean P.5 mmHg MR VTI: 132.1 cm ECHO/Echo Complete Interpretation Summary Left ventricular systolic function is normal. The estimated ejection fraction is 55 %. Moderate concentric left ventricular hypertrophy. The left atrium is moderately enlarged. The right atrium is mildly enlarged. Mild focal mitral valve calcification of the anterior leaflet. Moderate (2+) mitral valve insufficiency. Moderately severe (3+) tricuspid valve insufficiency. Mild focal aortic valve calcification. Trivial pericardial effusion. There are no echocardiographic indications of cardiac tamponade. Right ventricular systolic pressure estimated to be 25 mmHg. Diastolic function is indeterminate. Ordering Physician: Hans Grant Referring Physician: Amish Han Performed By: Ermias Urias RCS
[2022-03-16 06:40] LABS: Absolute Lymphocyte Count 1.55 X10^3/uL (0.83-4.51); Absolute Neutrophil Count 6.5 X10^3/uL (2.0-7.7); Basophil# 0.03 X10^3/uL; Basophil% 0.3 % (0-1); Eosinophil# 0.05 X10^3/uL; Eosinophils% 0.6 % (0-5); Hematocrit 31.9 % (40-54); Hemoglobin 10.3 g/dL (13.0-16.5); Lymphocyte # 1.55 X10^3/ul (0.83-4.51); Lymphocyte % 17.6 % (19-41); Mean Corp Hgb Conc 32.3 g/dL (32-36); Mean Corpuscular Hgb 27.2 pg (27.0-32.0); Mean Corpuscular Volume 84.2 fL (80-94); Mean Platelet Vol. 12.4 fl (6.2-12.0); Monocyte# 0.64 X10^3/uL; Monocyte% 7.3 % (0-10); NRBC Flagged by Analyzer 0 % (0-5); Neutrophil # 6.51 X10^3/uL (2.7-7.7); Platelet Count 164 K/mm3 (150-450); RBC Distribution Width CV 15.2 % (11.6-14.6); RBC Distribution Width SD 46.5 fl (35.1-43.9); Red Blood Count 3.79 M/mm3 (4.6-6.2); White Blood Count 8.8 K/mm3 (4.4-11.0)
[2022-03-16 07:01] LABS: International Normalized Ratio 1.2; Prothrombin Time (Protime)PT. 15.2 SECONDS (11.7-14.9)
[2022-03-16 07:07] LABS: Anion Gap 5 (5-15); BUN 58 mg/dL (7-18); BUN/Creat Ratio 16.3 RATIO (10-20); Calcium,Total 8.6 mg/dL (8.5-10.1); Chloride 105 mmol/L (98-107); Creatinine, Serum 3.55 mg/dL (0.70-1.30); EST Glomerular Filtration Rate 19 mL/min (>60); Est Glom Filt Rate - Afr Amer 23 mL/min (>60); Estimated Creatinine Clearance 22.56 ml/min; Glucose 236 mg/dL (74-106); Sodium Level 135 mmol/L (136-145)
[2022-03-16 07:20] LABS: Bedside Glucose 201 mg/dL (74-106)
[2022-03-16] MEDS: 0.9% Saline Lock 10 ML Syringe IV ×2 (08:12→14:34)
--- NOTE | 2022-03-16 08:13 | EKG12_ITS ---
Test Reason : Blood Pressure : / mmHG Vent. Rate : 068 BPM Atrial Rate : 068 BPM P-R Int : 150 ms QRS Dur : 090 ms QT Int : 428 ms P-R-T Axes : -01 -12 002 degrees QTc Int : 455 ms Normal sinus rhythm Normal ECG When compared with ECG of 16-MAR-2022 08:25, MANUAL COMPARISON REQUIRED, DATA IS UNCONFIRMED Confirmed by ARTHUR MONSON, YUMIKO ([id number]), videotape editor HANNAH BRAY ([id number]) on 03/18/2022 1:15:27 PM Referred By: Tameka Confirmed By:YUMIKO GIBSON MD
[2022-03-16] MEDS: Sodium Polystyrene Sulfonate 15 GM/60 ML UDC 30 GM PO (08:14)
[2022-03-16] MEDS: Insulin Lispro 100 UNIT/ML INSULN.PEN SC ×3 (09:01→17:01)
[2022-03-16] MEDS: Furosemide 20 MG Tablet PO (10:44)
--- NOTE | 2022-03-16 11:20 | CASEMGMT ---
MICHELLE HUANG Face to Face with patient for initial transition planning/care coordination assessment. RN CM introduced self and role at [facility]. Patient lying in bed, alert and oriented. Patient willing to participate in assessment and is able to answer all questions appropriately. Care providers, pharmacy, and demographics verified. Patient wishes to discharge home, will monitor for need for HHC and home oxygen. Patient states he has no further needs or concerns at this time. CM to follow for discharge planning needs that may arise. PCP: Guille Specialists: none Preferred Pharmacy: [facility], [facility] retail at discharge. Insurance: [id number] Prescription Benefit: none Living Will/HPOA: yes, Nessa Dom LNOK: , 13 yo son Living Arrangements: Patient lives with 13 yo son in 2nd story home. Patient states he was independent and able to ambulate stairs prior to admission. Transportation: self, public tranportation DME/HHC: Patient states he has shower chair, grab bars, rollator, and pulse ox at home. Patient has been to TCU previously. Patient denies previous HHC. Disposition Plan: Patient to discharge home with follow-up plans in place. Will monitor for HHC and home oxygen at discharge. Cathy HAGEN, RN, CM
[2022-03-16 11:31] LABS: Magnesium 2.7 mg/dL (1.6-2.6)
[2022-03-16] MEDS: HEPARIN/D5w 25,000 UNITS 25,000 UNITS/250 ML IV.SOLN. 12 UNITS CONT INF (12:18)
[2022-03-16 12:31] LABS: Potassium 5.2 mmol/L (3.5-5.1)
--- NOTE | 2022-03-16 12:55 | PN.HOSP_ITS ---
Subjective Subjective Patient seen and examined. He complained of nausea and vomiting. He denied any chest pain, palpitations, dizziness or diarrhea. REview of systems is otherwise negative. He is on 2L of oxygen. He was noted to have a period of asystole per telemetry. He remains in afib, and is on cardizem drip. Review of systems othe rwise negative. Objective Data Objective Data Vital Signs: Vital Signs Temp Pulse Resp BP Pulse Ox O2 Del Method O2 Flow Rate 98.3 F 80 20 H 106/81 H 94 Nasal Cannula 2 03/16/22 09:00 03/16/22 12:00 03/16/22 12:00 03/16/22 12:00 03/16/22 12:00 03/16/22 12:00 03/16/22 12:00 Oxygen Flow Rate (L/min) 2 Oxygen Delivery Method Nasal Cannula Weight: 198 lb Body Mass Index (BMI) 28.4 Intake & Output: Intake and Output for Last 24 Hours 03/14/22 03/15/22 03/16/22 23:59 23:59 23:59 Intake Total 335.25 / 335.25 Output Total 0 / 0 Balance 335.25 / 335.25 Lab / Micro Data Result Diagrams: 03/16/22 05:40 03/16/22 12:15 Labs: Laboratory Results - last 24 hr 03/16/22 01:25: WBC 8.5, RBC 3.92 L, Hgb 10.3 L, Hct 33.1 L, MCV 84.4, MCH 26.3 L, MCHC 31.1 L, RDW Std Deviation 46.2 H, RDW Coeff of Silvia 15.1 H, Plt Count 155, MPV 11.4, Immature Gran % (Auto) 0.200, Neut % (Auto) 76.3 H, Lymph % (Auto) 13.8 L, [place] % (Auto) 8.2, Eos % (Auto) 1.1, Baso % (Auto) 0.4, Absolute Neuts (auto) 6.5, Absolute Lymphs (auto) 1.17, Nucleated RBC % 0 03/16/22 01:25: Sodium 135 L, Potassium 5.8 H, Chloride 105, Carbon Dioxide 25.0, Anion Gap 5, BUN 58 H, Creatinine 3.36 H, Estim Creat Clear Calc 23.84, Est GFR (MDRD) Af Amer 24 L, Est GFR (MDRD) Non-Af 20 L, BUN/Creatinine Ratio 17.3, Glucose 307 H, Calcium 8.4 L, Total Bilirubin 0.70, AST 23, ALT 52, Alkaline Phosphatase 182 H, Troponin I High Sens 62, Total Protein 6.2 L, Albumin 3.0 L, Globulin 3.2, Albumin/Globulin Ratio 0.9 03/16/22 01:25: Lactic Acid 1.5 03/16/22 01:25: B-Natriuretic Peptide 1060.4 H 03/16/22 02:31: POC Glucose 273 H 03/16/22 05:40: WBC 8.8, RBC 3.79 L, Hgb 10.3 L, Hct 31.9 L, MCV 84.2, MCH 27.2, MCHC 32.3, RDW Std Deviation 46.5 H, RDW Coeff of Silvia 15.2 H, Plt Count 164, MPV 12.4 H, Immature Gran % (Auto) 0.200, Neut % (Auto) 74.0 H, Lymph % (Auto) 17.6 L, [place] % (Auto) 7.3, Eos % (Auto) 0.6, Baso % (Auto) 0.3, Absolute Neuts (auto) 6.5, Absolute Lymphs (auto) 1.55, Nucleated RBC % 0 03/16/22 05:40: PT 15.2 H, INR 1.2 03/16/22 05:40: Sodium 135 L, Potassium 6.0 H*, Chloride 105, Carbon Dioxide 25.0, Anion Gap 5, BUN 58 H, Creatinine 3.55 H, Estim Creat Clear Calc 22.56, Est GFR (MDRD) Af Amer 23 L, Est GFR (MDRD) Non-Af 19 L, BUN/Creatinine Ratio 16.3, Glucose 236 H, Calcium 8.6, Magnesium 2.7 H 03/16/22 05:40: Potassium Cancelled, Magnesium Cancelled 03/16/22 06:54: POC Glucose 201 H 03/16/22 12:15: Potassium 5.2 H Radiography Diagnostic Testing: Radiology Impression Chest X-Ray 03/16/22 00:55 IMPRESSION: Resolution of left pleural effusion, with a stable small right pleural effusion. Chronic cardiomegaly without evidence for pulmonary venous hypertension. Bibasilar pulmonary infiltrates, stable on the right while minimally improved on the left; these infiltrates are most likely due to scarring; no superimposed acute pulmonary edema is identified. Electronically Signed: Kashif Garcia MD at 2:01 EDT , Physical Exam Const alert, oriented x3 and no apparent distress HEENT head/scalp atraumatic and moist oral mucous membranes Head and Scalp: normocephalic Mouth: dry mucous membranes Eyes PERRL, EOMs intact bilaterally and conjunctivae normal Neck no lymphadenopathy, supple and no JVD Resp normal respiratory effort, no retractions, no use of accessory muscles and clear to auscultation bilaterally Cardio Cardio Narrative: afib with RVR, on cardizem drip GI normal to inspection, nondistended, normoactive bowel sounds, soft to palpation, non-tender and non-distended Extremity normal to inspection, full ROM and no clubbing, cyanosis or edema General Extremity: edema Neuro oriented x3, CN's II-XII intact bilaterally, moves all extremities and no focal motor deficits Sensorium / Orientation: awake and alert Motor Exam: strength 5/5 throughout Psych affect normal Assessment & Plan Assessment/Plan (1) Atrial fibrillation with RVR: PLAN: Plan #Afib with RVR * remains on cardizem drip * 2D echo ordered and pending * CHADVASC score is 4; patient started on heparin drip * cardiology consulted. Await rec's. * #Hyperkalemia: K is 6 today; was 5.8 on admission. Will give kayexalate and trend. #Acute on chronic HFpEF * 2D echo pending * being diuresed with IV lasix. Cr is also elevated. * cardiology consulted * BNP elevation could also be due to afib with RVR * #Type 2 diabetes mellitus * on lantus 18 units qhs. ISS. Accuchecks ACHS * check A1C * #AIME on CKD3 * Cr is 3.55, with Cr being 3.36. * baseline Cr is 1.16 * cannot be hydrated with IVF due to heart failure * #Hyperlipidemia: on statin DVT prophylaxis: not indicated as he has been started on heparin drip. Charges/Coding Visit Charges Inpatient E&M: 75302 Subs Hosp L3
[2022-03-16 13:15] LABS: Bedside Glucose 270 mg/dL (74-106)
--- NOTE | 2022-03-16 13:37 | EKG12_ITS ---
Test Reason : Blood Pressure : / mmHG Vent. Rate : 081 BPM Atrial Rate : 000 BPM P-R Int : 000 ms QRS Dur : 086 ms QT Int : 382 ms P-R-T Axes : 000 -18 012 degrees QTc Int : 443 ms Atrial fibrillation Abnormal ECG When compared with ECG of 16-MAR-2022 01:00, MANUAL COMPARISON REQUIRED, DATA IS UNCONFIRMED Confirmed by TATUM MONSON, MARIA D ([id number]), society editor HANNAH BRAY ([id number]) on 03/19/2022 2:32:46 PM Referred By: MIKE Confirmed By:SAIDA WINN MD
--- NOTE | 2022-03-16 14:34 | CON.PCM.CA_ITS ---
Assessment & Plan Assessment/Plan (1) Atrial fibrillation and flutter: PLAN: The patient has been found to have atrial fibrillation with RVR with subsequent conversion to atrial flutter with subsequent conversion to sinus rhythm. The etiology may be multifactorial based upon a combination of the patient's age, history of hypertension, history of CHF , valvular heart related issues, superimposed upon his other multiple comorbidities. At the present time he has high-sensitivity troponin I levels are negative. His ECG is demonstrated no acute electrocardiographic changes other than the change in his rhythm. His transthoracic echocardiogram is as noted. It may not be unreasonable to reassess him for any obvious evidence of u nderlying CAD or myocardial ischemia that may be contributing to his symptoms and findings. This would, in the form of a pharmacologic stress nuclear imaging study as he is not a candidate at this time for a treadmill type study. He is not an ideal candidate for invasive valuation such as diagnostic cardiac catheterization if that were warranted based upon concerns of his underlying acute on chronic renal insufficiency and the concerns of IV contrast related nephropathy. He will continue to be monitored. It would be reasonable to continue medical management. This may include agents such as rate control agents such as beta- blockers or calcium channel antagonists. Depending upon his clinical course he may need to be considered for antiarrhythmic therapy. Also, ideally he would be considered for long-term oral systemic anticoagulant therapy barring other concerns or contraindications. (2) CHF exacerbation: QUALIFIERS: Heart failure type: unspecified Qualified Code(s): I50.9 - Heart failure, unspecified PLAN: The patient states he has a history of CHF . Based upon his objective studies this would be compatible with a heart failure with preserved ejection fraction type CHF. At the moment based upon his symptoms and his objective studies with respect to laboratory studies this may be compatible with an acute on chronic mediated event. His symptoms may also be exacerbated by his atrial dysrhythmia and his diminished renal function/elevated creatinine level. At the moment he is being monitored. It appears that he is going to be treated medically with diuretic therapy. He is also going to be evaluated by nephrology which may be helpful with respect to evaluation and care of his volume status. (3) Valvular heart disease: PLAN: He does have an element of underlying valvular heart disease based upon his transthoracic echocardiographic findings suggesting both MR and TR. This may be a contributing factor to his atrial dysrhythmia. At the moment he will continue to be monitored. He will continue medical evaluation and care of his other multiple diagnoses/comorbidities. (4) Hyperlipidemia: QUALIFIERS: Hyperlipidemia type: unspecified Qualified Code(s): E78.5 - Hyperlipidemia, unspecified PLAN: He carries a history of hyperlipidemia. He states he is not on lipid-lowering medication. (5) Hypertension: PLAN: He has a history of hypertension. He states that he minimizes the use of medications because of concerns of side effects. (6) AIME (acute kidney injury): PLAN: He does appear to have worsening renal insufficiency. It is unclear whether this is related to his concerns of frequent loose bowel movements and volume loss versus underlying chronic renal insufficiency/progression secondary to other issues such as his hypertension, diabetes mellitus, etc. At the moment he is being evaluated by internal medicine and nephrology has been requested to participate in his care. Addt'l Comments The patient's case has been discussed and reviewed with the patient. This note was generated using a voice recognition system and there may be incorrect words, spelling or punctuation that were not noted when reviewing the office note prior to saving. HPI Consult Data Date of Consult: 03/16/22 HPI Narrative HPI Narrative: JAMES RICO, is a 61 year old white male who presents for work already a vascular evaluation for atrial fibrillation superimposed upon a history, based upon cardiovascular consultation records from 06-14-2020, of possible paroxysmal ventricular tachycardia, CHF , seizure disorder, hyperlipidemia, hypertension, diabetes mellitus, TIA, brain mass , with concerns of acute on chronic renal insufficiency. The patient states his main concern is that he was feeling somewhat more short of breath and dyspneic which he attributed to CHF . Based upon this he states he elected to have himself brought to the emergency depart ment for further evaluation and care. From a cardiovascular standpoint he was noted to be in atrial fibrillation with rapid ventricular response. He underwent additional cardiovascular evaluation with cardiac [id number]-[id number] troponin I level which was negative. A BNP level was elevated. His ECG demonstrated atrial fibrillation with rapid ventricular response with left axis deviation and poor R wave progression. He was placed on medical management with IV diltiazem. He was placed in the ICU for further evaluation and care. He has denied associated chest discomfort. He states that there is been no obvious palpitations he is aware of. There is been no near-syncope or syncope. He admits to bilateral lower extremity peripheral pitting edema especially more so on the left than the right. As his hospitalization has progressed he has been noted to have a change in his cardiac rhythm to atrial flutter and subsequently sinus rhythm. He is also undergone evaluation with a transthoracic echocardiogram with the findings as noted below. He is pending further evaluation at this time by nephrology based upon concerns of acute on chronic renal insufficiency. He states overall he is feeling better as the day has progressed. He does note prior to his hospitalization that he felt febrile and states that he has had frequent loose bowel movements. He admits that he does not like to take medications. He states he only uses his diuretic medication when he feels he is retaining fluid. At the time of his previous cardiovascular consultation in June, he was subsequently transported to [facility] for further noncardiac evaluation at that time. He does not recall requiring any additional cardiovascular testing at that time. [facility] Medical History Acute and chronic respiratory failure with hypoxia Acute hyperglycemia Benign essential hypertension Brain mass CHF (congestive heart failure) CHF (congestive heart failure) Diabetes HTN (hypertension) Hyperglycemia Hypertensive urgency Peripheral neuropathy Pneumonia due to COVID-19 virus Seizure Seizures Smoker Stroke-like symptom TIA (transient ischemic attack) Type 2 diabetes mellitus Home Medications furosemide 40 mg tablet (Lasix) 20 mg PO DAILY 03/16/22 [History Last Taken Unknown] insulin glargine 100 unit/mL subcutaneous solution (Lantus U-100 Insulin) 18 unit subcut QPM 03/16/22 [History Last Taken Unknown] insulin lispro 100 unit/mL subcutaneous pen (Humalog KwikPen (U-100) Insulin) 5 unit subcut TID 03/16/22 [History Last Taken Unknown] Allergy/AdvReac Type Severity Reaction Status Date / Time hydrocodone bitartrate AdvReac Mild HYPER Verified 01/04/22 18:12 [From Vicodin] lisinopril AdvReac Other Verified 01/04/22 18:12 oxycodone AdvReac Other Verified 03/16/22 00:52 Family History Other COPD (chronic obstructive pulmonary disease) Heart disease Surgical History Status post foot surgery Social History household members: spouse and children number of children: 3 current occupational status: disabled Smoking Status: Never smoker Smokeless tobacco user: chewing tobacco alcohol intake: never substance use type: does not use ROS Constitutional Constitutional: Reports fever(s) Eyes Eyes: Reports as per HPI ENT HEENT: Reports as per HPI Cardiovascular Cardiovascular: Reports dyspnea and edema Respiratory/Chest Respiratory/Chest: Reports dyspnea Gastrointestinal Gastrointestinal: Reports diarrhea Genitourinary Genitourinary: Reports as per HPI Musculoskeletal Musculoskeletal: Reports as per HPI Integumentary Integumentary: Reports as per HPI Neurologic Neurologic: Reports as per HPI Psychiatric Psychiatric: Reports as per HPI Physical Exam Const alert, oriented x3 and no apparent distress Orientation / Consciousness: awake HEENT normocephalic, head/scalp atraumatic and hearing grossly normal bilaterally Eyes PERRL, EOMs intact bilaterally, conjunctivae normal and no scleral icterus Neck full ROM, supple and no JVD Carotids: normal carotid upstroke Resp normal respiratory effort and clear to auscultation bilaterally Cardio regular rate, regular rhythm, S1 normal heart sound and S2 normal heart sound Heart Sounds: murmur systolic II/ soft mid left sternal border GI normal to inspection, nondistended, normoactive bowel sounds Extremity General Extremity: edema bilateral lower extremity Details: mild Skin no rashes or lesions noted Psych mental status grossly normal Risk Stratification Risk Stratification Applicable: No Procedure Criteria Type of Procedure Procedure Type: Elective Elective Risks - COVID COVID Risk Discussion: The surgeon/proceduralist and patient have discussed in detail the risk of exposure to and/or potential harm posed by the COVID-19 virus with having a surgery/procedure at this time versus the risk of delaying the surgery/procedure. It is not possible to know either the risk of delaying the surgery or procedure or chance of getting an infection with perfect accuracy, but a joint decision was made between the patient and the surgeon/proceduralist to proceed at this time with the scheduled surgery/procedure as indicated on the consent form. Objective Data Vital Signs: Vital Signs Temp Pulse Resp BP Pulse Ox O2 Del Method O2 Flow Rate 98.3 F 68 18 124/82 H 96 Room Air 2 03/16/22 09:00 03/16/22 13:00 03/16/22 13:00 03/16/22 13:00 03/16/22 13:00 03/16/22 13:00 03/16/22 12:58 Oxygen Flow Rate (L/min) 2 Oxygen Delivery Method Room Air Weight: 198 lb Body Mass Index (BMI) 28.4 Intake & Output: Intake and Output for Last 24 Hours 03/14/22 03/15/22 03/16/22 23:59 23:59 23:59 Intake Total 352.92 / 352.92 Output Total 0 / 0 Balance 352.92 / 352.92 Lab / Micro Data Result Diagrams: 03/16/22 05:40 03/16/22 12:15 Labs: Laboratory Results - last 24 hr 03/16/22 01:25: WBC 8.5, RBC 3.92 L, Hgb 10.3 L, Hct 33.1 L, MCV 84.4, MCH 26.3 L, MCHC 31.1 L, RDW Std Deviation 46.2 H, RDW Coeff of Silvia 15.1 H, Plt Count 155, MPV 11.4, Immature Gran % (Auto) 0.200, Neut % (Auto) 76.3 H, Lymph % (Auto) 13.8 L, [place] % (Auto) 8.2, Eos % (Auto) 1.1, Baso % (Auto) 0.4, Absolute Neuts (auto) 6.5, Absolute Lymphs (auto) 1.17, Nucleated RBC % 0 03/16/22 01:25: Sodium 135 L, Potassium 5.8 H, Chloride 105, Carbon Dioxide 25.0, Anion Gap 5, BUN 58 H, Creatinine 3.36 H, Estim Creat Clear Calc 23.84, Est GFR (MDRD) Af Amer 24 L, Est GFR (MDRD) Non-Af 20 L, BUN/Creatinine Ratio 17.3, Glucose 307 H, Calcium 8.4 L, Total Bilirubin 0.70, AST 23, ALT 52, Alkaline Phosphatase 182 H, Troponin I High Sens 62, Total Protein 6.2 L, Albumin 3.0 L, Globulin 3.2, Albumin/Globulin Ratio 0.9 03/16/22 01:25: Lactic Acid 1.5 03/16/22 01:25: B-Natriuretic Peptide 1060.4 H 03/16/22 02:31: POC Glucose 273 H 03/16/22 05:40: WBC 8.8, RBC 3.79 L, Hgb 10.3 L, Hct 31.9 L, MCV 84.2, MCH 27.2, MCHC 32.3, RDW Std Deviation 46.5 H, RDW Coeff of Silvia 15.2 H, Plt Count 164, MPV 12.4 H, Immature Gran % (Auto) 0.200, Neut % (Auto) 74.0 H, Lymph % (Auto) 17.6 L, [place] % (Auto) 7.3, Eos % (Auto) 0.6, Baso % (Auto) 0.3, Absolute Neuts (auto) 6.5, Absolute Lymphs (auto) 1.55, Nucleated RBC % 0 03/16/22 05:40: PT 15.2 H, INR 1.2 03/16/22 05:40: Sodium 135 L, Potassium 6.0 H*, Chloride 105, Carbon Dioxide 25.0, Anion Gap 5, BUN 58 H, Creatinine 3.55 H, Estim Creat Clear Calc 22.56, Est GFR (MDRD) Af Amer 23 L, Est GFR (MDRD) Non-Af 19 L, BUN/Creatinine Ratio 16.3, Glucose 236 H, Calcium 8.6, Magnesium 2.7 H 03/16/22 05:40: Potassium Cancelled, Magnesium Cancelled 03/16/22 06:54: POC Glucose 201 H 03/16/22 12:15: Potassium 5.2 H 03/16/22 12:56: POC Glucose 270 H Cardiology Labs/Tests 03/16/22 01:25: WBC 8.5, RBC 3.92 L, Hgb 10.3 L, Hct 33.1 L, MCV 84.4, MCH 26.3 L, MCHC 31.1 L, Plt Count 155, MPV 11.4, Immature Gran % (Auto) 0.200, Neut % (Auto) 76.3 H, Lymph % (Auto) 13.8 L, [place] % (Auto) 8.2, Eos % (Auto) 1.1, Baso % (Auto) 0.4, Absolute Neuts (auto) 6.5, Nucleated RBC % 0 03/16/22 01:25: Sodium 135 L, Potassium 5.8 H, Chloride 105, Carbon Dioxide 25.0, Anion Gap 5, BUN 58 H, Creatinine 3.36 H, Est GFR (MDRD) Af Amer 24 L, Est GFR (MDRD) Non-Af 20 L, BUN/Creatinine Ratio 17.3, Glucose 307 H, Calcium 8.4 L, Total Bilirubin 0.70 03/16/22 01:25: Lactic Acid 1.5 03/16/22 01:25: B-Natriuretic Peptide 1060.4 H 03/16/22 05:40: WBC 8.8, RBC 3.79 L, Hgb 10.3 L, Hct 31.9 L, MCV 84.2, MCH 27.2, MCHC 32.3, Plt Count 164, MPV 12.4 H, Immature Gran % (Auto) 0.200, Neut % (Auto) 74.0 H, Lymph % (Auto) 17.[address] L, [place] % (Auto) 7.3, Eos % (Auto) 0.6, Baso % (Auto) 0.3, Absolute Neuts (auto) 6.5, Nucleated RBC % 0 03/16/22 05:40: PT 15.2 H, INR 1.2 03/16/22 05:40: Sodium 135 L, Potassium 6.0 H*, Chloride 105, Carbon Dioxide 25.0, Anion Gap 5, BUN 58 H, Creatinine 3.55 H, Est GFR (MDRD) Af Amer 23 L, Est GFR (MDRD) Non-Af 19 L, BUN/Creatinine Ratio 16.3, Glucose 236 H, Calcium 8.6, Magnesium 2.7 H 03/16/22 05:40: Potassium Cancelled, Magnesium Cancelled 03/16/22 12:15: Potassium 5.2 H Rhythm: Sinus rhythm EKG: As noted above ECHO: Interpretation Summary Left ventricular systolic function is normal. The estimated ejection fraction is 55 %. Moderate concentric left ventricular hypertrophy. The left atrium is moderately enlarged. The right atrium is mildly enlarged. Mild focal mitral valve calcification of the anterior leaflet. Moderate (2+) mitral valve insufficiency. Moderately severe (3+) tricuspid valve insufficiency. Mild focal aortic valve calcification. Trivial pericardial effusion. There are no echocardiographic indications of cardiac tamponade. Right ventricular systolic pressure estimated to be 25 mmHg. Diastolic function is indeterminate. Stress Test: 06-21-2018 Stress Test Report Date: 06/21/2018 Procedure: Pharmacologic stress nuclear imaging study? Indications: Chest pain Consent: Per the patient Procedure: The patient underwent pharmacologic (Regadenoson) evaluation with a peak heart rate of 99 beats per minute (61 predicted maximal heart rate) and a peak blood pressure of 160/102 mmHg. The baseline ECG demonstrated normal sinus rhythm; poor R wave progression.? The peak pharmacologic ECG demonstrated no obvious ECG changes. There were rare PVCs during recovery. There was no complaint of chest discomfort during pharmacologic infusion or recovery. The examination was discontinued secondary to completion of protocol. Impression: 1.? Pharmacologic (Regadenoson) evaluation 2.? Peak pharmacologic ECG with no obvious ECG changes. 3.? There were rare PVCs during recovery. 4.? Nuclear images pending Myocardial perfusion imaging study: Technique: The patient was injected with 14.1 millicuries of technetium 99m Cardiolite and subsequently rest SPECT Cardiolite nuclear imaging was obtained in the horizontal long, vertical long, and short axis views. The patient underwent pharmacologic (Regadenoson) evaluation with a peak heart rate of 99 beats per minute (61 % percent predicted maximal heart rate) and a peak blood pressure of 160/102 mmHg. The patient was injected with 44.8 millicuries of technetium 99m Cardiolite and subsequently stress SPECT Cardiolite nuclear imaging was obtained in the horizontal long, vertical long, and short axis views.? A gated Cardiolite study at peak stress was obtained. Interpretation: Rest and stress SPECT Cardiolite nuclear imaging status post realignment, normalization, and attenuation correction demonstrate rest and area of diminished tracer uptake in portions of the distal anteroseptal segment which status post stress appears to improve/normalize..? There is end systolic thickening and brightening.? The gated Cardiolite study demonstrates myocardial thickening and inward wall motion.? The reported LVEF is 68 %. Impression: 1.? Test and stress SPECT Cardiolite nuclear imaging demonstrate myocardial perfusion changes at rest which appear to improve/normalized following stress appearing compatible shifting soft tissue attenuation/artifact with no myocardial perfusion changes considered diagnostic for associated stress-induced myocardial ischemia or previous myocardial injury/infarction. 2.? The gated Cardiolite study reports an LVEF of 68 %. Radiography Diagnostic Testing: Radiology Impression Chest X-Ray 03/16/22 00:55 IMPRESSION: Resolution of left pleural effusion, with a stable small right pleural effusion. Chronic cardiomegaly without evidence for pulmonary venous hypertension. Bibasilar pulmonary infiltrates, stable on the right while minimally improved on the left; these infiltrates are most likely due to scarring; no superimposed acute pulmonary edema is identified. Electronically Signed: Kashif Garcia MD at 2:01 EDT , Echocardiogram 03/16/22 05:55 Interpretation Summary Left ventricular systolic function is normal. The estimated ejection fraction is 55 %. Moderate concentric left ventricular hypertrophy. The left atrium is moderately enlarged. The right atrium is mildly enlarged. Mild focal mitral valve calcification of the anterior leaflet. Moderate (2+) mitral valve insufficiency. Moderately severe (3+) tricuspid valve insufficiency. Mild focal aortic valve calcification. Trivial pericardial effusion. There are no echocardiographic indications of cardiac tamponade. Right ventricular systolic pressure estimated to be 25 mmHg. Diastolic function is indeterminate. Ordering Physician: Hans Grant Referring Physician: Amish Han Performed By: Ermias Urias RCS
[2022-03-16] MEDS: Furosemide 500 MG in Empty Viaflex 50 mL 1 EACH CONT INF (14:42)
[2022-03-16] MEDS: dilTIAZem CD 120 MG Capsule PO ×2 (16:05→21:21)
--- NOTE | 2022-03-16 16:10 | CON.PCM.RE_ITS ---
Assessment & Plan Assessment/Plan (1) AIME (acute kidney injury): PLAN: The patient has been losing kidney function since November 2021. Serum creatinine has increased from baseline of 2.06 mg/dL on 11/10/2021 up to 3.55 mg/dL today. AIME is likely due to progression of underlying diabetic kidney disease along with hemodynamic kidney injury from hypotension which may be related to atrial fibrillation with RVR. Low suspicion for other causes of AIME such as obstruction (ultrasound from January 2022 was negative for structural kidney disease). BP is better today with treatment of atrial fibrillation. Since he is more hemodynamically stable, I am hoping to see stability of kidney function. There is no need for kidney replacement therapy currently. However, if renal function continues to deteriorate, the patient was told that he may need hemodialysis especially if hyperkalemia recurs. I will check urine indices. (2) Chronic kidney disease, stage 4 (severe): PLAN: The patient has underlying chronic kidney disease. Serum creatinine was already 2.06 mg/dL in November 2021. He was also found to have significant urine protein during the last admission. Most likely, the patient has diabetic kidney disease. (3) Hyperkalemia: PLAN: The patient presented to the hospital with potassium level of 6.0 mmol/L. Potassium is better today at 5.2 mmol/L. Hyperkalemia is likely due to AIME on C KD. The patient was not on JETHRO inhibitor/ARB or potassium supplementation prior to admission. Will continue to monitor potassium level. (4) Atrial fibrillation with RVR: PLAN: The patient is being seen by cardiology. He is currently on heparin drip. Heart rate is now under control with diltiazem. HPI Consult Data Date of Consult: 03/16/22 HPI Narrative Reason for Consultation: Acute kidney injury on chronic kidney disease HPI Narrative: The patient is a 61-year-old man with past history of type 2 diabetes mellitus, hypertension, chronic kidney disease stage IV, heart failure with preserved ej ection fraction due to diastolic dysfunction, and seizure disorder. The patient presented to the hospital on 03/16/2022 with dizziness and was found to have new onset atrial fibrillation. There was no chest pain or shortness of breath on presentation. Nephrology is asked to see the patient because of AIME on CKD. The patient was recently admitted to the hospital between 01/05/2022 until 01/06/2022 with stroke. The patient was seen by our service during this admission for AIME on CKD as well. His serum creatinine had been around 2.06 mg/dL in November 2021. During the last admission, serum creatinine increased to 2.71 mg/dL on 01/09/2022. Serum creatinine was 3.36 mg/dL on current presentation (03/16/2022 at 1:25 AM). The patient presented to the hospital early this morning with increasing edema o f the lower extremities for the past 2 weeks. The patient also has been more dyspneic. There is no chest pain or palpitation, but he was found to have a new onset atrial fibrillation. The patient denies urinary frequency, urgency, hesitancy or dribbling. There has been no incontinence. He does complain of daily nausea and vomiting in the morning. However, his appetite has been good. The patient complains of constipation since discharge from the hospital after the last admission. However, he did have loose bowel movement 1 day prior to presentation because he was taking a laxative. The patient denies chronic use of NSAIDs. [facility] Medical History Acute and chronic respiratory failure with hypoxia Acute hyperglycemia Benign essential hypertension Brain mass CHF (congestive heart failure) CHF (congestive heart failure) Diabetes HTN (hypertension) Hyperglycemia Hypertensive urgency Peripheral neuropathy Pneumonia due to COVID-19 virus Seizure Seizures Smoker Stroke-like symptom TIA (transient ischemic attack) Type 2 diabetes mellitus Home Medications furosemide 40 mg tablet (Lasix) 20 mg PO DAILY 03/16/22 [History Last Taken Unknown] insulin glargine 100 unit/mL subcutaneous solution (Lantus U-100 Insulin) 18 unit subcut QPM 03/16/22 [History Last Taken Unknown] insulin lispro 100 unit/mL subcutaneous pen (Humalog KwikPen (U-100) Insulin) 5 unit subcut TID 03/16/22 [History Last Taken Unknown] Allergy/AdvReac Type Severity Reaction Status Date / Time hydrocodone bitartrate AdvReac Mild HYPER Verified 01/04/22 18:12 [From Vicodin] lisinopril AdvReac Other Verified 01/04/22 18:12 oxycodone AdvReac Other Verified 03/16/22 00:52 Family History Other COPD (chronic obstructive pulmonary disease) Heart disease Surgical History Status post foot surgery Social History household members: spouse and children number of children: 3 current occupational status: disabled Smoking Status: Never smoker Smokeless tobacco user: chewing tobacco alcohol intake: never substance use type: does not use ROS ROS Narrative 05/17 ROS was done it is otherwise noncontributory aside from what is documented in HPI. Physical Exam Narrative General appearance: Alert and oriented x3 in no apparent distress. HEENT: Normocephalic, atraumatic. Mucous membrane moist without erythema. PERRLA, EOMI. Hearing is intact. Neck: Supple, no JVD. Heart: Irregularly irregular S1-S2. No rubs, murmurs or gallops. Lungs: Decreased breath sound at bases bilaterally. Abdomen: Normal bowel sound, soft, nontender, no guarding or rebound. Extremities: No clubbing or cyanosis. There is 2+ edema of the lower extremities bilaterally. Skin: Warm and dry. No rash. Neurologic: No focal neurologic deficits. Lab / Micro Data Result Diagrams: 03/16/22 05:40 03/16/22 12:15 Labs: Laboratory Results - last 24 hr 03/16/22 01:25: WBC 8.5, RBC 3.92 L, Hgb 10.3 L, Hct 33.1 L, MCV 84.4, MCH 26.3 L, MCHC 31.1 L, RDW Std Deviation 46.2 H, RDW Coeff of Silvia 15.1 H, Plt Count 155, MPV 11.4, Immature Gran % (Auto) 0.200, Neut % (Auto) 76.3 H, Lymph % (Auto) 13.8 L, [place] % (Auto) 8.2, Eos % (Auto) 1.1, Baso % (Auto) 0.4, Absolute Neuts (auto) 6.5, Absolute Lymphs (auto) 1.17, Nucleated RBC % 0 03/16/22 01:25: Sodium 135 L, Potassium 5.8 H, Chloride 105, Carbon Dioxide 25.0, Anion Gap 5, BUN 58 H, Creatinine 3.36 H, Estim Creat Clear Calc 23.84, Est GFR (MDRD) Af Amer 24 L, Est GFR (MDRD) Non-Af 20 L, BUN/Creatinine Ratio 17.3, Glucose 307 H, Calcium 8.4 L, Total Bilirubin 0.70, AST 23, ALT 52, Alkaline Phosphatase 182 H, Troponin I High Sens 62, Total Protein 6.2 L, Albumin 3.0 L, Globulin 3.2, Albumin/Globulin Ratio 0.9 03/16/22 01:25: Lactic Acid 1.5 03/16/22 01:25: B-Natriuretic Peptide 1060.4 H 03/16/22 02:31: POC Glucose 273 H 03/16/22 05:40: WBC 8.8, RBC 3.79 L, Hgb 10.3 L, Hct 31.9 L, MCV 84.2, MCH 27.2, MCHC 32.3, RDW Std Deviation 46.5 H, RDW Coeff of Silvia 15.2 H, Plt Count 164, MPV 12.4 H, Immature Gran % (Auto) 0.200, Neut % (Auto) 74.0 H, Lymph % (Auto) 17.6 L, [place] % (Auto) 7.3, Eos % (Auto) 0.6, Baso % (Auto) 0.3, Absolute Neuts (auto) 6.5, Absolute Lymphs (auto) 1.55, Nucleated RBC % 0 03/16/22 05:40: PT 15.2 H, INR 1.2 03/16/22 05:40: Sodium 135 L, Potassium 6.0 H*, Chloride 105, Carbon Dioxide 25.0, Anion Gap 5, BUN 58 H, Creatinine 3.55 H, Estim Creat Clear Calc 22.56, Est GFR (MDRD) Af Amer 23 L, Est GFR (MDRD) Non-Af 19 L, BUN/Creatinine Ratio 16.3, Glucose 236 H, Calcium 8.6, Magnesium 2.7 H 03/16/22 05:40: Potassium Cancelled, Magnesium Cancelled 03/16/22 06:54: POC Glucose 201 H 03/16/22 12:15: Potassium 5.2 H 03/16/22 12:56: POC Glucose 270 H Radiology Impression Chest X-Ray 03/16/22 00:55 IMPRESSION: Resolution of left pleural effusion, with a stable small right pleural effusion. Chronic cardiomegaly without evidence for pulmonary venous hypertension. Bibasilar pulmonary infiltrates, stable on the right while minimally improved on the left; these infiltrates are most likely due to scarring; no superimposed acute pulmonary edema is identified. Electronically Signed: Kashif Garcia MD at 2:01 EDT , Echocardiogram 03/16/22 05:55 Interpretation Summary Left ventricular systolic function is normal. The estimated ejection fraction is 55 %. Moderate concentric left ventricular hypertrophy. The left atrium is moderately enlarged. The right atrium is mildly enlarged. Mild focal mitral valve calcification of the anterior leaflet. Moderate (2+) mitral valve insufficiency. Moderately severe (3+) tricuspid valve insufficiency. Mild focal aortic valve calcification. Trivial pericardial effusion. There are no echocardiographic indications of cardiac tamponade. Right ventricular systolic pressure estimated to be 25 mmHg. Diastolic function is indeterminate. Ordering Physician: Hans Grant Referring Physician: Amish Han Performed By: Ermias Urias RCS
[2022-03-16 17:21] LABS: Bedside Glucose 174 mg/dL (74-106)
[2022-03-16 19:05] LABS: Partial Thromboplast Time 49.4 Seconds (24.1-36.2)
[2022-03-16] MEDS: HEPARIN/D5w 25,000 UNITS 25,000 UNITS/250 ML IV.SOLN. 13 UNITS CONT INF (20:23)
[2022-03-16] MEDS: Heparin Injection (Vial) 5,000 UNIT/ML VIAL IV (20:24)
[2022-03-16 21:09] LABS: Urea Nitrogen, Urine 209 mg/dL (NO RANGE EST.)
[2022-03-16 21:50] LABS: Bedside Glucose 74 mg/dL (74-106)
[2022-03-17] VITALS (10 sets, daily range): BP systolic 99–134; BP diastolic 70–100; PULSE 59–98; RESP 16–20; TEMP 36.4–37.7; O2SAT 92–96
[2022-03-17 02:55] LABS: Absolute Lymphocyte Count 0.93 X10^3/uL (0.83-4.51); Absolute Neutrophil Count 7.2 X10^3/uL (2.0-7.7); Basophil# 0.02 X10^3/uL; Basophil% 0.2 % (0-1); Eosinophil# 0.18 X10^3/uL; Hematocrit 32.5 % (40-54); Hemoglobin 9.6 g/dL (13.0-16.5); Lymphocyte # 0.93 X10^3/ul (0.83-4.51); Lymphocyte % 10.3 % (19-41); Mean Corp Hgb Conc 29.5 g/dL (32-36); Mean Corpuscular Hgb 26.4 pg (27.0-32.0); Mean Corpuscular Volume 89.3 fL (80-94); Mean Platelet Vol. 11.4 fl (6.2-12.0); Monocyte# 0.61 X10^3/uL; Monocyte% 6.8 % (0-10); NRBC Flagged by Analyzer 0 % (0-5); Neutrophil # 7.22 X10^3/uL (2.7-7.7); Neutrophil % 80.4 % (47-70); Platelet Count 170 K/mm3 (150-450); RBC Distribution Width SD 49.1 fl (35.1-43.9); Red Blood Count 3.64 M/mm3 (4.6-6.2)
[2022-03-17 03:32] LABS: Partial Thromboplast Time 54.2 Seconds (24.1-36.2)
[2022-03-17] MEDS: Heparin Injection (Vial) 5,000 UNIT/ML VIAL IV (03:41)
[2022-03-17 05:19] LABS: Anion Gap 7 (5-15); BUN 60 mg/dL (7-18); BUN/Creat Ratio 16.8 RATIO (10-20); Calcium,Total 8.2 mg/dL (8.5-10.1); Chloride 101 mmol/L (98-107); Cholesterol 143 mg/dL (200); Creatinine, Serum 3.58 mg/dL (0.70-1.30); EST Glomerular Filtration Rate 19 mL/min (>60); Est Glom Filt Rate - Afr Amer 22 mL/min (>60); Estimated Creatinine Clearance 22.37 ml/min; Glucose 159 mg/dL (74-106); High Density Lipoprotein 40 mg/dL; Magnesium 2.4 mg/dL (1.6-2.6); Potassium 4.3 mmol/L (3.5-5.1); Sodium Level 135 mmol/L (136-145); Triglycerides 92 mg/dL; Very Low Density Lipoprotein 18 mg/dL (5-40)
[2022-03-17] MEDS: Insulin Lispro 100 UNIT/ML INSULN.PEN SC ×3 (07:48→16:30)
[2022-03-17] MEDS: HEPARIN/D5w 25,000 UNITS 25,000 UNITS/250 ML IV.SOLN. 14 UNITS CONT INF (08:12)
[2022-03-17 08:20] LABS: Bedside Glucose 160 mg/dL (74-106)
--- NOTE | 2022-03-17 08:54 | PCM.PN.CARD ---
Subjective Subjective The patient is awake and alert this morning. He denies any symptoms of classic angina pectoris. He states after lying in bed he has had back discomfort and right sided discomfort-chronic. He believes his breathing has improved overall. He states he continues to have episodes of loose bowel movements. He notes his urinary output seems to be increasing. Objective Data Vital Signs: Vital Signs Temp Pulse Resp BP Pulse Ox O2 Del Method O2 Flow Rate 97.8 F 87 18 125/100 H 92 Room Air 2 03/17/22 03:25 03/17/22 07:00 03/17/22 03:25 03/17/22 03:25 03/17/22 07:29 03/17/22 07:45 03/16/22 12:58 Oxygen Flow Rate (L/min) 2 Oxygen Delivery Method Room Air Weight: 198 lb Body Mass Index (BMI) 28.4 Intake & Output: Intake and Output for Last 24 Hours 03/15/22 03/16/22 03/17/22 23:59 23:59 23:59 Intake Total 703.75 / 1063.75 610.00 / 610.00 Output Total 0 / 400 800 / 800 Balance 703.75 / 663.75 -190.00 / -190.00 Lab / Micro Data Result Diagrams: 03/17/22 02:45 03/17/22 02:45 Labs: Laboratory Results - last 24 hr 03/16/22 05:40: Magnesium 2.7 H 03/16/22 05:40: Potassium Cancelled, Magnesium Cancelled 03/16/22 12:15: Potassium 5.2 H 03/16/22 12:56: POC Glucose 270 H 03/16/22 16:58: POC Glucose 174 H 03/16/22 18:15: APTT 49.4 H 03/16/22 20:31: Urine Urea Nitrogen 209 03/16/22 21:20: POC Glucose 74 03/17/22 02:45: Sodium 135 L, Potassium 4.3, Chloride 101, Carbon Dioxide 27.0, Anion Gap 7, BUN 60 H, Creatinine 3.58 H, Estim Creat Clear Calc 22.37, Est GFR (MDRD) Af Amer 22 L, Est GFR (MDRD) Non-Af 19 L, BUN/Creatinine Ratio 16.8, Glucose 159 H, Calcium 8.2 L, Magnesium 2.4, Triglycerides 92, Cholesterol 143, LDL Cholesterol 85, VLDL Cholesterol 18, HDL Cholesterol 40 03/17/22 02:45: WBC 9.0, RBC 3.64 L, Hgb 9.6 L, Hct 32.5 L, MCV 89.3 D, MCH 26.4 L, MCHC 29.5 L D, RDW Std Deviation 49.1 H, RDW Coeff of Silvia 15.0 H, Plt Count 170, MPV 11.4, Immature Gran % (Auto) 0.300, Neut % (Auto) 80.4 H, Lymph % (Auto) 10.3 L, [place] % (Auto) 6.8, Eos % (Auto) 2.0, Baso % (Auto) 0.2, Absolute Neuts (auto) 7.2, Absolute Lymphs (auto) 0.93, Nucleated RBC % 0 03/17/22 02:45: APTT 54.2 H 03/17/22 07:47: POC Glucose 160 H Cardiology Labs/Tests 03/16/22 05:40: Magnesium 2.7 H 03/16/22 05:40: Potassium Cancelled, Magnesium Cancelled 03/16/22 12:15: Potassium 5.2 H 03/16/22 18:15: APTT 49.4 H 03/17/22 02:45: Sodium 135 L, Potassium 4.3, Chloride 101, Carbon Dioxide 27.0, Anion Gap 7, BUN 60 H, Creatinine 3.58 H, Est GFR (MDRD) Af Amer 22 L, Est GFR (MDRD) Non-Af 19 L, BUN/Creatinine Ratio 16.8, Glucose 159 H, Calcium 8.2 L, Magnesium 2.4, Triglycerides 92, Cholesterol 143, LDL Cholesterol 85, VLDL Cholesterol 18, HDL Cholesterol 40 03/17/22 02:45: WBC 9.0, RBC 3.64 L, Hgb 9.6 L, Hct 32.5 L, MCV 89.3 D, MCH 26.4 L, MCHC 29.5 L D, Plt Count 170, MPV 11.4, Immature Gran % (Auto) 0.300, Neut % (Auto) 80.4 H, Lymph % (Auto) 10.3 L, [place] % (Auto) 6.8, Eos % (Auto) 2.0, Baso % (Auto) 0.2, Absolute Neuts (auto) 7.2, Nucleated RBC % 0 03/17/22 02:45: APTT 54.2 H Rhythm: EKG: ECHO: Stress Test: Cardiac Cath: PCI: CT Surgery: Holter monitor: EPS: PPM: CXR: Chest CT Scan: Radiography Diagnostic Testing: Radiology Impression Echocardiogram 03/16/22 05:55 Interpretation Summary Left ventricular systolic function is normal. The estimated ejection fraction is 55 %. Moderate concentric left ventricular hypertrophy. The left atrium is moderately enlarged. The right atrium is mildly enlarged. Mild focal mitral valve calcification of the anterior leaflet. Moderate (2+) mitral valve insufficiency. Moderately severe (3+) tricuspid valve insufficiency. Mild focal aortic valve calcification. Trivial pericardial effusion. There are no echocardiographic indications of cardiac tamponade. Right ventricular systolic pressure estimated to be 25 mmHg. Diastolic function is indeterminate. Ordering Physician: Hans Grant Referring Physician: Amish Han Performed By: Ermias Urias RCS Physical Exam Const alert, oriented x3 and no apparent distress Orientation / Consciousness: awake HEENT normocephalic, head/scalp atraumatic and hearing grossly normal bilaterally Eyes PERRL, EOMs intact bilaterally, conjunctivae normal and no scleral icterus Neck full ROM, supple and no JVD Carotids: normal carotid upstroke Resp normal respiratory effort and clear to auscultation bilaterally Cardio regular rate, regular rhythm, S1 normal heart sound and S2 normal heart sound Heart Sounds: murmur systolic II/ soft mid left sternal border GI normal to inspection, nondistended, normoactive bowel sounds Extremity General Extremity: edema bilateral lower extremity Details: mild Skin no rashes or lesions noted Psych mental status grossly normal Assessment & Plan Assessment/Plan (1) Atrial fibrillation and flutter: PLAN: The patient has been found to have atrial fibrillation with RVR with subsequent conversion to atrial flutter with subsequent conversion to sinus rhythm. The etiology may be multifactorial based upon a combination of the patient's age, history of hypertension, history of CHF , valvular heart related issues, superimposed upon his other multiple comorbidities. At the present time he has high-sensitivity troponin I levels are negative. His ECG is demonstrated no acute electrocardiographic changes other than the change in his rhythm. His transthoracic echocardiogram is as noted. It may not be unreasonable to reassess him for any obvious evidence of underlying CAD or myocardial ischemia that may be contributing to his symptoms and findings. This would, in the form of a pharmacologic stress nuclear imaging study as he is not a candidate at this time for a treadmill type study. This may occur when the patient appears to be clinically improved from his comorbidities. He is not an ideal candidate for invasive valuation such as diagnostic cardiac catheterization if that were warranted based upon concerns of his underlying acute on chronic renal insufficiency and the concerns of IV contrast related nephropathy. He will continue to be monitored. It would be reasonable to continue medical management. This may include agents such as rate control agents such as beta-blockers or calcium channel antagonists. Depending upon his clinical course he may need to be considered for antiarrhythmic therapy. Also, ideally he would be considered for long-term oral systemic anticoagulant therapy barring other concerns or contraindications. (2) CHF exacerbation: QUALIFIERS: Heart failure type: unspecified Qualified Code(s): I50.9 - Heart failure, unspecified PLAN: The patient states he has a history of CHF . Based upon his objective studies this would be compatible with a heart failure with preserved ejection fraction type CHF. At the moment based upon his symptoms and his objective studies with respect to laboratory studies this may be compatible with an acute on chronic mediated event. His symptoms may also be exacerbated by his atrial dysrhythmia and his diminished renal function/elevated creatinine level. At the moment he is being monitored. It appears that he is going to be treated medically with diuretic therapy. He is also going to be evaluated by nephrology. (3) Valvular heart disease: PLAN: He does have an element of underlying valvular heart disease based upon his transthoracic echocardiographic findings suggesting both MR and TR. This may be a contributing factor to his atrial dysrhythmia. At the moment he will continue to be monitored. He will continue medical evaluation and care of his other multiple diagnoses/comorbidities. (4) Hyperlipidemia: QUALIFIERS: Hyperlipidemia type: unspecified Qualified Code(s): E78.5 - Hyperlipidemia, unspecified PLAN: His lipid labs were reviewed. They appear to be under reasonably good control at this time. (5) Hypertension: PLAN: He has a history of hypertension. He states that he minimizes the use of medications because of concerns of side effects. (6) AIME (acute kidney injury): PLAN: He does appear to have worsening renal insufficiency. It is unclear whether this is related to his concerns of frequent loose bowel movements and volume loss versus underlying chronic renal insufficiency/progression secondary to other issues such as his hypertension, diabetes mellitus, etc. At the moment he is being evaluated by internal medicine and nephrology. Addt'l Comments This note was generated using a voice recognition system and there may be incorrect words, spelling or punctuation that were not noted when reviewing the office note prior to saving.
[2022-03-17] MEDS: dilTIAZem CD 120 MG Capsule PO ×2 (09:52→22:47)
[2022-03-17] MEDS: Acetaminophen 325 MG Tablet 650 MG PO ×2 (10:33→22:52)
--- NOTE | 2022-03-17 11:47 | PN.HOSP_ITS ---
Subjective Subjective Patient seen and examined. He complained of back pain which is chronic. He denied any palpitations, dizziness, nausea, vomiting or diarrhea. Review of systems is otherwise negative. He is off cardizem drip. Objective Data Objective Data Vital Signs: Vital Signs Temp Pulse Resp BP Pulse Ox O2 Del Method O2 Flow Rate 99.8 F H 86 16 134/76 H 93 Room Air 2 03/17/22 09:50 03/17/22 09:50 03/17/22 09:50 03/17/22 09:50 03/17/22 09:50 03/17/22 09:50 03/16/22 12:58 Oxygen Flow Rate (L/min) 2 Oxygen Delivery Method Room Air Weight: 197 lb 15.99 oz Body Mass Index (BMI) 28.4 Intake & Output: Intake and Output for Last 24 Hours 03/15/22 03/16/22 03/17/22 23:59 23:59 23:59 Intake Total 703.75 / 1063.75 610.00 / 610.00 Output Total 0 / 400 800 / 800 Balance 703.75 / 663.75 -190.00 / -190.00 Lab / Micro Data Result Diagrams: 03/17/22 02:45 03/17/22 02:45 Labs: Laboratory Results - last 24 hr 03/16/22 12:15: Potassium 5.2 H 03/16/22 12:56: POC Glucose 270 H 03/16/22 16:58: POC Glucose 174 H 03/16/22 18:15: APTT 49.4 H 03/16/22 20:31: Urine Urea Nitrogen 209 03/16/22 21:20: POC Glucose 74 03/17/22 02:45: Sodium 135 L, Potassium 4.3, Chloride 101, Carbon Dioxide 27.0, Anion Gap 7, BUN 60 H, Creatinine 3.58 H, Estim Creat Clear Calc 22.37, Est GFR (MDRD) Af Amer 22 L, Est GFR (MDRD) Non-Af 19 L, BUN/Creatinine Ratio 16.8, Gl ucose 159 H, Calcium 8.2 L, Magnesium 2.4, Triglycerides 92, Cholesterol 143, LDL Cholesterol 85, VLDL Cholesterol 18, HDL Cholesterol 40 03/17/22 02:45: WBC 9.0, RBC 3.64 L, Hgb 9.6 L, Hct 32.5 L, MCV 89.3 D, MCH 26.4 L, MCHC 29.5 L D, RDW Std Deviation 49.1 H, RDW Coeff of Silvia 15.0 H, Plt Count 170, MPV 11.4, Immature Gran % (Auto) 0.300, Neut % (Auto) 80.4 H, Lymph % (Auto) 10.3 L, [place] % (Auto) 6.8, Eos % (Auto) 2.0, Baso % (Auto) 0.2, Absolute Neuts (auto) 7.2, Absolute Lymphs (auto) 0.93, Nucleated RBC % 0 03/17/22 02:45: APTT 54.2 H 03/17/22 07:47: POC Glucose 160 H 03/17/22 09:42: APTT 61.0 H Radiography Diagnostic Testing: Radiology Impression Echocardiogram 03/16/22 05:55 Interpretation Summary Left ventricular systolic function is normal. The estimated ejection fraction is 55 %. Moderate concentric left ventricular hypertrophy. The left atrium is moderately enlarged. The right atrium is mildly enlarged. Mild focal mitral valve calcification of the anterior leaflet. Moderate (2+) mitral valve insufficiency. Moderately severe (3+) tricuspid valve insufficiency. Mild focal aortic valve calcification. Trivial pericardial effusion. There are no echocardiographic indications of cardiac tamponade. Right ventricular systolic pressure estimated to be 25 mmHg. Diastolic function is indeterminate. Ordering Physician: Hans Grant Referring Physician: Amish Han Performed By: Ermias Urias RCS Physical Exam Const alert, oriented x3 and no apparent distress HEENT normocephalic, head/scalp atraumatic and moist oral mucous membranes Head and Scalp: normocephalic Mouth: oral and palatal mucosa normal Eyes PERRL, EOMs intact bilaterally and conjunctivae normal Neck no lymphadenopathy, supple and no JVD Lymph Lymphatic: no lymphadenopathy noted Resp normal respiratory effort, no retractions, no use of accessory muscles and clear to auscultation bilaterally Effort and Inspection: tachypneic Auscultation: Negative for wheezes Cardio S1 normal heart sound, S2 normal heart sound, no murmurs, no rub and no gallops Cardio Narrative: afib with RVR, on cardizem drip Rhythm: abnormal rhythm irregularly irregular GI normal to inspection, nondistended, normoactive bowel sounds, soft to palpation, non-tender and non-distended Extremity normal to inspection, full ROM, normal capillary refill and no clubbing, cyanosis or edema General Extremity: clubbing and edema Neuro oriented x3, CN's II-XII intact bilaterally, moves all extremities and no focal motor deficits Sensorium / Orientation: awake and alert Speech: speech normal Motor Exam: strength 5/5 throughout; Negative for general weakness Psych thought process normal and affect normal Appearance: appropriate Assessment & Plan Assessment/Plan (1) Atrial fibrillation with RVR: PLAN: Plan #Afib with RVR * now off cardizem drip * 2D echo: EF of 55%, with moderate concentric LVH and normal LV size, with normal LV sytolic function. Diastolic function indeterminate. RVSP of 25mmhg. * CHADVASC score is 4; patient on heparin drip * cardiology on board; recommends a chairman emeritus stress test once he is clinically improved. * now on cardizem 120mg q12 * #Hyperkalemia: resolved. K is 4.3 today. #Acute on chronic HFpEF * 2D echo as above * on lasix drip. Cardiology on board. * #Type 2 diabetes mellitus * on lantus 18 units qhs. ISS. Accuchecks ACHS * check A1C * last A1C was 13.1 in November 2021. * #AIME on CKD3 * Cr is up to 3.58, * baseline Cr is 1.16 * cannot be hydrated with IVF due to heart failure * nephrology on board. appreciate rec's * #Hyperlipidemia: on statin DVT prophylaxis: not indicated as he has been started on heparin drip. Charges/Coding Visit Charges Inpatient E&M: 59289 Subs Hosp L2
[2022-03-17 12:46] LABS: Bedside Glucose 217 mg/dL (74-106)
--- NOTE | 2022-03-17 14:59 | PN.RENAL_ITS ---
Subjective Subjective Following for AIME on CKD. The patient is feeling better overall. He denies chest pain or shortness of breath at rest. There is no nausea or vomiting. There is no diarrhea today. Objective Data Objective Data Vital Signs: Vital Signs Temp Pulse Resp BP Pulse Ox O2 Del Method O2 Flow Rate 99.8 F H 86 16 134/76 H 93 Room Air 2 03/17/22 09:50 03/17/22 09:50 03/17/22 09:50 03/17/22 09:50 03/17/22 09:50 03/17/22 09:50 03/16/22 12:58 Oxygen Flow Rate (L/min) 2 Oxygen Delivery Method Room Air Weight: 89.811 kg Body Mass Index (BMI) 28.4 Intake & Output: Intake and Output for Last 24 Hours 03/15/22 03/16/22 03/17/22 23:59 23:59 23:59 Intake Total 703.75 / 1063.75 970.00 / 970.00 Output Total 0 / 400 1100 / 1100 Balance 703.75 / 663.75 -130.00 / -130.00 Lab / Micro Data Result Diagrams: 03/17/22 02:45 03/17/22 02:45 Labs: Laboratory Results - last 24 hr 03/16/22 16:58: POC Glucose 174 H 03/16/22 18:15: APTT 49.4 H 03/16/22 20:31: Urine Urea Nitrogen 209 03/16/22 20:31: Urine Creatinine 32.20 03/16/22 21:20: POC Glucose 74 03/17/22 02:45: Sodium 135 L, Potassium 4.3, Chloride 101, Carbon Dioxide 27.0, Anion Gap 7, BUN 60 H, Creatinine 3.58 H, Estim Creat Clear Calc 22.37, Est GFR (MDRD) Af Amer 22 L, Est GFR (MDRD) Non-Af 19 L, BUN/Creatinine Ratio 16.8, Glucose 159 H, Calcium 8.2 L, Magnesium 2.4, Triglycerides 92, Cholesterol 143, LDL Cholesterol 85, VLDL Cholesterol 18, HDL Cholesterol 40 03/17/22 02:45: WBC 9.0, RBC 3.64 L, Hgb 9.6 L, Hct 32.5 L, MCV 89.3 D, MCH 26.4 L, MCHC 29.5 L D, RDW Std Deviation 49.1 H, RDW Coeff of Silvia 15.0 H, Plt Count 170, MPV 11.4, Immature Gran % (Auto) 0.300, Neut % (Auto) 80.4 H, Lymph % (Auto) 10.3 L, [place] % (Auto) 6.8, Eos % (Auto) 2.0, Baso % (Auto) 0.2, Absolute Neuts (auto) 7.2, Absolute Lymphs (auto) 0.93, Nucleated RBC % 0 03/17/22 02:45: APTT 54.2 H 03/17/22 07:47: POC Glucose 160 H 03/17/22 09:42: APTT 61.0 H 03/17/22 12:24: POC Glucose 217 H Physical Exam Narrative General appearance: Alert and oriented x3 in no apparent distress. HEENT: Normocephalic, atraumatic. Mucous membrane moist without erythema. PERRLA, EOMI. Hearing is intact. Neck: Supple, no JVD. Heart: Irregularly irregular S1-S2. No rubs, murmurs or gallops. Lungs: Decreased breath sound at bases bilaterally. Abdomen: Normal bowel sound, soft, nontender, no guarding or rebound. Extremities: No clubbing or cyanosis. There is 3+ edema of the lower extremities bilaterally. Skin: Warm and dry. No rash. Neurologic: No focal neurologic deficits. Assessment & Plan Assessment/Plan (1) AIME (acute kidney injury): PLAN: The patient has been losing kidney function since November 2021. Serum creatinine has increased from baseline of 2.06 mg/dL on 11/10/2021 up to 3.55 mg/dL today. AIME is likely due to progression of underlying diabetic kidney disease along with hemodynamic kidney injury from hypotension which may be related to atrial fibrillation with RVR. There is also a component of cardiorenal AIME. Low suspicion for other causes of AIME such as obstruction (ultrasound from January 2022 was negative for structural kidney disease). BP is better today with treatment of atrial fibrillation. Since he is more hemodynamically stable, I am hoping to see stability of kidney function. There is no need for kidney replacement therapy currently. Continue current medical therapy including diuresis with furosemide drip. The patient appears to be volume overloaded still. However, if renal function continues to deteriorate, the patient was told that he may need hemodialysis especially if hyperkalemia recurs. (2) Chronic kidney disease, stage 4 (severe): PLAN: The patient has underlying chronic kidney disease. Serum creatinine was already 2.06 mg/dL in November 2021. He was also found to have significant urine protein during the last admission. Most likely, the patient has diabetic kidney disease. (3) Hyperkalemia: PLAN: The patient presented to the hospital with potassium level of 6.0 mmol/L. Hyperkalemia was likely due to AIME on CKD. The patient was not on JETHRO inhi bitor/ARB or potassium supplementation prior to admission. Potassium is better today at 4.3 mmol/L. There is no need for kidney replacement therapy for hyperkalemia. Will continue to monitor potassium level. (4) Atrial fibrillation with RVR: PLAN: The patient is being seen by cardiology. He is currently on heparin and furosemide drip. Heart rate is now under control with diltiazem.
[2022-03-17 16:08] LABS: Partial Thromboplast Time 70.4 Seconds (24.1-36.2)
[2022-03-17] MEDS: Furosemide 500 MG in Empty Viaflex 50 mL 1 EACH CONT INF (16:26)
[2022-03-17 16:50] LABS: Bedside Glucose 160 mg/dL (74-106)
--- NOTE | 2022-03-17 21:04 | CT_ITS ---
STUDY: CT BRAIN WITHOUT CONTRAST REASON FOR EXAM: Male, 61 years old. Headache. Numbness around mouth. RADIATION DOSAGE (If Supplied By Facility): CTDIvol = ( 44.99 ) mGy, DLP = ( 796.11 ) mGycm TECHNIQUE: Transaxial CT imaging of the brain was performed without administration of intravenous contrast material. Individualized dose optimization techniques were used for this CT. COMPARISON: MRI of the brain, 01/05/2022. CT of the head, 06/13/2020. FINDINGS: Normal soft tissue structures. Normal calvarium. Normal size ventricles and extra-axial spaces for the patient''s age. There are areas of decreased attenuation within the white matter tracts of the supratentorial brain, consistent with microvascular disease changes. There are small punctate calcifications of the basal ganglia which are seen in the aging brain as a normal variant. Normal brainstem. Normal cerebellum. There is no intracranial hemorrhage. There are no findings of an acute ischemic infarction. Normal visualized paranasal sinuses. CT/Brain/Head without Contrast IMPRESSION: Mild chronic lucent changes without acute intracranial calvarial abnormality. The findings are similar to the previous examination. Electronically Signed: Eric Reed DO at 21:41 EDT Reading Location ID and State: [address] [place] [address] Tel [phone], Service support ,
[2022-03-17] MEDS: Insulin Glargine-YFGN 100 UNIT/ML Pen 18 UNIT SC (22:48)
[2022-03-18] VITALS (7 sets, daily range): BP systolic 127–151; BP diastolic 85–93; PULSE 70–87; RESP 14–18; TEMP 35.9–37.1; O2SAT 93–94
[2022-03-18] MEDS: HEPARIN/D5w 25,000 UNITS 25,000 UNITS/250 ML IV.SOLN. 14 UNITS CONT INF (02:22)
[2022-03-18 03:21] LABS: Bedside Glucose 174 mg/dL (74-106)
[2022-03-18 03:21] LABS: Bedside Glucose 163 mg/dL (74-106)
[2022-03-18 06:07] LABS: Absolute Lymphocyte Count 1.42 X10^3/uL (0.83-4.51); Absolute Neutrophil Count 4.1 X10^3/uL (2.0-7.7); Basophil# 0.03 X10^3/uL; Basophil% 0.5 % (0-1); Eosinophil# 0.24 X10^3/uL; Eosinophils% 3.8 % (0-5); Hematocrit 29.5 % (40-54); Hemoglobin 9.6 g/dL (13.0-16.5); Lymphocyte # 1.42 X10^3/ul (0.83-4.51); Lymphocyte % 22.5 % (19-41); Mean Corp Hgb Conc 32.5 g/dL (32-36); Mean Corpuscular Volume 83.1 fL (80-94); Monocyte# 0.48 X10^3/uL; Monocyte% 7.6 % (0-10); NRBC Flagged by Analyzer 0 % (0-5); Neutrophil # 4.13 X10^3/uL (2.7-7.7); Neutrophil % 65.4 % (47-70); Platelet Count 183 K/mm3 (150-450); RBC Distribution Width CV 14.8 % (11.6-14.6); RBC Distribution Width SD 45.1 fl (35.1-43.9); Red Blood Count 3.55 M/mm3 (4.6-6.2); White Blood Count 6.3 K/mm3 (4.4-11.0)
[2022-03-18 06:19] LABS: Partial Thromboplast Time 59.5 Seconds (24.1-36.2)
[2022-03-18 06:53] LABS: Anion Gap 9 (5-15); BUN 71 mg/dL (7-18); BUN/Creat Ratio 17.6 RATIO (10-20); Calcium,Total 8.4 mg/dL (8.5-10.1); Chloride 99 mmol/L (98-107); Creatinine, Serum 4.03 mg/dL (0.70-1.30); EST Glomerular Filtration Rate 16 mL/min (>60); Est Glom Filt Rate - Afr Amer 20 mL/min (>60); Estimated Creatinine Clearance 19.88 ml/min; Glucose 180 mg/dL (74-106); Magnesium 2.4 mg/dL (1.6-2.6); Potassium 4.1 mmol/L (3.5-5.1); Sodium Level 135 mmol/L (136-145)
[2022-03-18] MEDS: Acetaminophen 325 MG Tablet 650 MG PO ×2 (08:21→18:22)
[2022-03-18] MEDS: Insulin Lispro 100 UNIT/ML INSULN.PEN SC ×3 (08:22→17:18)
--- NOTE | 2022-03-18 08:39 | PCM.PN.CARD ---
Subjective Subjective The patient is awake and alert. He is not complaining of classic symptoms of angina pectoris or acute CHF/pulmonary edema at this time. He does not note underlying palpitations. He states that his loose bowel movements have stopped. Objective Data Vital Signs: Vital Signs Temp Pulse Resp BP Pulse Ox O2 Del Method O2 Flow Rate 96.6 F L 74 18 129/93 H 94 Room Air 2 03/18/22 04:44 03/18/22 06:59 03/18/22 04:44 03/18/22 04:44 03/18/22 04:44 03/18/22 08:25 03/16/22 12:58 Oxygen Flow Rate (L/min) 2 Oxygen Delivery Method Room Air Weight: 197 lb 15.99 oz Body Mass Index (BMI) 28.4 Intake & Output: Intake and Output for Last 24 Hours 03/16/22 03/17/22 03/18/22 23:59 23:59 23:59 Intake Total 703.75 / 1063.75 1020.00 / 1020.00 250 / 250 Output Total 0 / 400 1525 / 2125 600 / 600 Balance 703.75 / 663.75 -505.00 / -1105.00 -350 / -350 Lab / Micro Data Result Diagrams: 03/18/22 06:02 03/18/22 06:02 Labs: Laboratory Results - last 24 hr 03/16/22 20:31: Urine Creatinine 32.20 03/17/22 09:42: APTT 61.0 H 03/17/22 12:24: POC Glucose 217 H 03/17/22 13:43: APTT 70.4 H 03/17/22 16:29: POC Glucose 160 H 03/17/22 20:37: POC Glucose 163 H 03/17/22 22:43: POC Glucose 174 H 03/18/22 06:02: WBC 6.3, RBC 3.55 L, Hgb 9.6 L, Hct 29.5 L, MCV 83.1 D, MCH 27.0, MCHC 32.5 D, RDW Std Deviation 45.1 H, RDW Coeff of Silvia 14.8 H, Plt Count 183, MPV 11.0, Immature Gran % (Auto) 0.200, Neut % (Auto) 65.4, Lymph % (Auto) 22.5, [place] % (Auto) 7.6, Eos % (Auto) 3.8, Baso % (Auto) 0.5, Absolute Neuts (auto) 4.1, Absolute Lymphs (auto) 1.42, Nucleated RBC % 0 03/18/22 06:02: Sodium 135 L, Potassium 4.1, Chloride 99, Carbon Dioxide 27.0, Anion Gap 9, BUN 71 H, Creatinine 4.03 H, Estim Creat Clear Calc 19.88, Est GFR (MDRD) Af Amer 20 L, Est GFR (MDRD) Non-Af 16 L, BUN/Creatinine Ratio 17.6, Glucose 180 H, Calcium 8.4 L, Magnesium 2.4 03/18/22 06:02: APTT 59.5 H Cardiology Labs/Tests 03/17/22 09:42: APTT 61.0 H 03/17/22 13:43: APTT 70.4 H 03/18/22 06:02: WBC 6.3, RBC 3.55 L, Hgb 9.6 L, Hct 29.5 L, MCV 83.1 D, MCH 27.0, MCHC 32.5 D, Plt Count 183, MPV 11.0, Immature Gran % (Auto) 0.200, Neut % (Auto) 65.4, Lymph % (Auto) 22.5, [place] % (Auto) 7.6, Eos % (Auto) 3.8, Baso % (Auto) 0.5, Absolute Neuts (auto) 4.1, Nucleated RBC % 0 03/18/22 06:02: Sodium 135 L, Potassium 4.1, Chloride 99, Carbon Dioxide 27.0, Anion Gap 9, BUN 71 H, Creatinine 4.03 H, Est GFR (MDRD) Af Amer 20 L, Est GFR (MDRD) Non-Af 16 L, BUN/Creatinine Ratio 17.6, Glucose 180 H, Calcium 8.4 L, Magnesium 2.4 03/18/22 06:02: APTT 59.5 H Rhythm: Atrial fibrillation with controlled ventricular response Radiography Diagnostic Testing: Radiology Impression Brain CT 03/17/22 21:04 IMPRESSION: Mild chronic lucent changes without acute intracranial calvarial abnormality. The findings are similar to the previous examination. Electronically Signed: Eric Reed DO at 21:41 EDT Reading Location ID and State: [address] [place] [address] Tel [phone], Service support , Physical Exam Const alert, oriented x3 and no apparent distress Orientation / Consciousness: awake HEENT normocephalic, head/scalp atraumatic and hearing grossly normal bilaterally Eyes PERRL, EOMs intact bilaterally, conjunctivae normal and no scleral icterus Neck full ROM, supple and no JVD Carotids: normal carotid upstroke Resp normal respiratory effort and clear to auscultation bilaterally Cardio S1 normal heart sound and S2 normal heart sound Rhythm: abnormal rhythm irregularly irregular Heart Sounds: murmur systolic II/ soft mid left sternal border GI normal to inspection, nondistended, normoactive bowel sounds Extremity General Extremity: edema bilateral lower extremity Details: mild Skin no rashes or lesions noted Psych mental status grossly normal Assessment & Plan Assessment/Plan (1) Atrial fibrillation and flutter: PLAN: The patient has been found to have atrial fibrillation with RVR with subsequent conversion to atrial flutter with subsequent conversion to sinus rhythm. The patient is now noted to have returned to atrial fibrillation with a controlled ventricular response. The etiology may be multifactorial based upon a combination of the patient's age, history of hypertension, history of CHF , valvular heart related issues, superimposed upon his other multiple comorbidities. At the present time he has high-sensitivity troponin I levels are negative. His ECG is demonstrated no acute electrocardiographic changes other than the change in his rhythm. His transthoracic echocardiogram has been reviewed. As the patient's clinical course has progressed he appears to be overall symptomatically improved since arriving at the hospital despite his findings of paroxysmal atrial fibrillation and his ongoing renal insufficiency. Thus, it may not be unreasonable to consider progressing with a pharmacologic stress nuclear imaging study to further evaluate for any obvious evidence of myocardial ischemia that may be contributing to any of his symptoms and/or findings. If he were to have such findings he would continue medical therapy at this time as, with his renal insufficiency, he is not an ideal candidate for invasive cardiovascular studies requiring IV contrast related agents based on the concerns of IV contrast related nephropathy. He will continue to be monitored. It would be reasonable to continue medical management. This will include his rate control therapy. With respect to antiarrhythmic therapy it would be reasonable to know whether he has any obvious underlying myocardial ischemia as this could impact which antiarrhythmic is chosen. Also, with respect antiarrhythmic therapy there are some agents that would not be ideal for him based upon his underlying renal insufficiency. An agent such as amiodarone may be acceptable based upon his other comorbidities, however, is not unreasonable to try and avoid such an agent in this patient at his age based upon the potential long-term concerns. Over time he may need to be considered for an EP consultation to try and assist with medical management and whether or not he is a patient for an atrial fibrillation/flutter ablation procedure. (2) CHF exacerbation: QUALIFIERS: Heart failure type: unspecified Qualified Code(s): I50.9 - Heart failure, unspecified PLAN: The patient states he has a history of CHF . Based upon his objective studies this would be compatible with a heart failure with preserved ejection fraction type CHF. At the moment based upon his symptoms and his objective studies with respect to laboratory studies this may be compatible with an acute on chronic mediated event. His symptoms may also be exacerbated by his atrial dysrhythmia and his diminished renal function/elevated creatinine level. At the moment he is being monitored. He has been treated with diuretic therapy. His renal function is increasing. He is being followed by nephrology. (3) Valvular heart disease: PLAN: He does have an element of underlying valvular heart disease based upon his transthoracic echocardiographic findings suggesting both MR and TR. This may be a contributing factor to his atrial dysrhythmia. At the moment he will continue to be monitored. He will continue medical evaluation and care of his other multiple diagnoses/comorbidities. (4) Hyperlipidemia: QUALIFIERS: Hyperlipidemia type: unspecified Qualified Code(s): E78.5 - Hyperlipidemia, unspecified PLAN: His lipid labs were reviewed. They appear to be under reasonably good control at this time. (5) Hypertension: PLAN: He has a history of hypertension. He states that he minimizes the use of medications because of concerns of side effects. (6) AIME (acute kidney injury): PLAN: He does appear to have worsening renal insufficiency. It is unclear whether this is related to his concerns of frequent loose bowel movements and volume loss versus underlying chronic renal insufficiency/progression secondary to other issues such as his hypertension, diabetes mellitus, etc. Again his renal insufficiency does impact choices of medications and other procedures. At the moment he is being evaluated by internal medicine and nephrology. Addt'l Comments The above was discussed and reviewed with the patient. His was present via the patient's cell phone and Interactive [employer]. This note was generated using a voice recognition system and there may be incorrect words, spelling or punctuation that were not noted when reviewing the office note prior to saving.
[2022-03-18 08:46] LABS: Bedside Glucose 154 mg/dL (74-106)
[2022-03-18] MEDS: dilTIAZem CD 120 MG Capsule PO ×2 (10:49→21:21)
--- NOTE | 2022-03-18 11:54 | PCM.PN.REN ---
Subjective Subjective Following for AIME on CKD. The patient denies chest pain, shortness of breath at rest, or nausea. Edema is subjectively better. Objective Data Objective Data Vital Signs: Vital Signs Temp Pulse Resp BP Pulse Ox O2 Del Method O2 Flow Rate 97.8 F 81 14 127/85 H 93 Room Air 2 03/18/22 10:45 03/18/22 10:45 03/18/22 10:45 03/18/22 10:45 03/18/22 10:45 03/18/22 10:45 03/16/22 12:58 Oxygen Flow Rate (L/min) 2 Oxygen Delivery Method Room Air Weight: 89.811 kg Body Mass Index (BMI) 28.4 Intake & Output: Intake and Output for Last 24 Hours 03/16/22 03/17/22 03/18/22 23:59 23:59 23:59 Intake Total 703.75 / 1063.75 1020.00 / 1020.00 263.37 / 263.37 Output Total 0 / 400 1525 / 2125 600 / 600 Balance 703.75 / 663.75 -505.00 / -1105.00 -336.63 / -336.63 Lab / Micro Data Result Diagrams: 03/19/22 05:10 03/19/22 05:10 Labs: Laboratory Results - last 24 hr 03/16/22 20:31: Urine Creatinine 32.20 03/17/22 12:24: POC Glucose 217 H 03/17/22 13:43: APTT 70.4 H 03/17/22 16:29: POC Glucose 160 H 03/17/22 20:37: POC Glucose 163 H 03/17/22 22:43: POC Glucose 174 H 03/18/22 06:02: WBC 6.3, RBC 3.55 L, Hgb 9.6 L, Hct 29.5 L, MCV 83.1 D, MCH 27.0, MCHC 32.5 D, RDW Std Deviation 45.1 H, RDW Coeff of Silvia 14.8 H, Plt Count 183, MPV 11.0, Immature Gran % (Auto) 0.200, Neut % (Auto) 65.4, Lymph % (Auto) 22.5, [place] % (Auto) 7.6, Eos % (Auto) 3.8, Baso % (Auto) 0.5, Absolute Neuts (auto) 4.1, Absolute Lymphs (auto) 1.42, Nucleated RBC % 0 03/18/22 06:02: Sodium 135 L, Potassium 4.1, Chloride 99, Carbon Dioxide 27.0, Anion Gap 9, BUN 71 H, Creatinine 4.03 H, Estim Creat Clear Calc 19.88, Est GFR (MDRD) Af Amer 20 L, Est GFR (MDRD) Non-Af 16 L, BUN/Creatinine Ratio 17.6, Glucose 180 H, Calcium 8.4 L, Magnesium 2.4 03/18/22 06:02: APTT 59.5 H 03/18/22 08:21: POC Glucose 154 H Radiography Diagnostic Testing: Radiology Impression Brain CT 03/17/22 21:04 IMPRESSION: Mild chronic lucent changes without acute intracranial calvarial abnormality. The findings are similar to the previous examination. Electronically Signed: Eric ReedDO at 21:41 EDT Reading Location ID and State: [address] [place] [address] Tel [phone], Service support , Physical Exam Narrative General appearance: Alert and oriented x3 in no apparent distress. HEENT: Normocephalic, atraumatic. Mucous membrane moist without erythema. PERRLA, EOMI. Hearing is intact. Neck: Supple, no JVD. Heart: Irregularly irregular S1-S2. No rubs, murmurs or gallops. Lungs: Decreased breath sound at bases bilaterally. Abdomen: Normal bowel sound, soft, nontender, no guarding or rebound. Extremities: No clubbing or cyanosis. There is 3+ edema of the lower extremities bilaterally. Skin: Warm and dry. No rash. Neurologic: No focal neurologic deficits. Assessment & Plan Assessment/Plan (1) AIME (acute kidney injury): PLAN: The patient has been losing kidney function since November 2021. Serum creatinine has increased from baseline of 2.06 mg/dL on 11/10/2021 up to 4.03 mg/dL today. AIME is likely due to progression of underlying diabetic kidney disease along with hemodynamic kidney injury from prior hypotension which may be related to atrial fibrillation with RVR. There is also a component of cardiorenal AIME. BP has been stable with treatment of atrial fibrillation. Since he is more hemodynamically stable, I was hoping to see stability of kidney function. Unfortunately, serum creatinine has continued to increase. I will stop Lasix drip and transition him to intermittent IV Lasix. There is no immediate need for kidney replacement therapy currently. However, the patient was informed that if his renal function continue to worsen or if we cannot keep him from becoming volume overloaded without Lasix drip, he may still need to proceed with kidney replacement therapy. (2) Chronic kidney disease, stage 4 (severe): PLAN: The patient has underlying chronic kidney disease. Serum creatinine was already 2.06 mg/dL in November 2021. He was also found to have significant urine protein during the last admission. CKD is due to diabetic kidney disease. (3) Hyperkalemia: PLAN: The patient presented to the hospital with potassium level of 6.0 mmol/L. Hyperkalemia was likely due to AIME on CKD. The patient was not on JETHRO inhibitor/ARB or potassium supplementation prior to admission. Potassium is better today at 4.1 mmol/L. There is no need for kidney replacement therapy for hyperkalemia. Will continue to monitor potassium level. (4) Atrial fibrillation with RVR: PLAN: The patient is being seen by cardiology. He is currently on heparin and furosemide drip. Heart rate is now under control with diltiazem.
[2022-03-18 12:11] LABS: Bedside Glucose 186 mg/dL (74-106)
--- NOTE | 2022-03-18 12:47 | PN.HOSP_ITS ---
Subjective Subjective Patient seen and examined. He had no active complaints and had an uneventful night. Review of systems otherwise negative. His creatinine has trended up to around 4. He remains on Lasix drip. Objective Data Objective Data Vital Signs: Vital Signs Temp Pulse Resp BP Pulse Ox O2 Del Method O2 Flow Rate 97.8 F 81 14 127/85 H 93 Room Air 2 03/18/22 10:45 03/18/22 10:45 03/18/22 10:45 03/18/22 10:45 03/18/22 10:45 03/18/22 10:45 03/16/22 12:58 Oxygen Flow Rate (L/min) 2 Oxygen Delivery Method Room Air Weight: 197 lb 15.99 oz Body Mass Index (BMI) 28.4 Intake & Output: Intake and Output for Last 24 Hours 03/16/22 03/17/22 03/18/22 23:59 23:59 23:59 Intake Total 703.75 / 1063.75 1020.00 / 1020.00 263.37 / 263.37 Output Total 0 / 400 1525 / 2125 600 / 600 Balance 703.75 / 663.75 -505.00 / -1105.00 -336.63 / -336.63 Lab / Micro Data Result Diagrams: 03/18/22 06:02 03/18/22 06:02 Labs: Laboratory Results - last 24 hr 03/16/22 20:31: Urine Creatinine 32.20 03/17/22 13:43: APTT 70.4 H 03/17/22 16:29: POC Glucose 160 H 03/17/22 20:37: POC Glucose 163 H 03/17/22 22:43: POC Glucose 174 H 03/18/22 06:02: WBC 6.3, RBC 3.55 L, Hgb 9.6 L, Hct 29.5 L, MCV 83.1 D, MCH 27.0, MCHC 32.5 D, RDW Std Deviation 45.1 H, RDW Coeff of Silvia 14.8 H, Plt Count 183, MPV 11.0, Immature Gran % (Auto) 0.200, Neut % (Auto) 65.4, Lymph % (Auto) 22.5, [place] % (Auto) 7.6, Eos % (Auto) 3.8, Baso % (Auto) 0.5, Absolute Neuts (auto) 4.1, Absolute Lymphs (auto) 1.42, Nucleated RBC % 0 03/18/22 06:02: Sodium 135 L, Potassium 4.1, Chloride 99, Carbon Dioxide 27.0, Anion Gap 9, BUN 71 H, Creatinine 4.03 H, Estim Creat Clear Calc 19.88, Est GFR (MDRD) Af Amer 20 L, Est GFR (MDRD) Non-Af 16 L, BUN/Creatinine Ratio 17.6, Glucose 180 H, Calcium 8.4 L, Magnesium 2.4 03/18/22 06:02: APTT 59.5 H 03/18/22 08:21: POC Glucose 154 H 03/18/22 11:46: POC Glucose 186 H Radiography Diagnostic Testing: Radiology Impression Brain CT 03/17/22 21:04 IMPRESSION: Mild chronic lucent changes without acute intracranial calvarial abnormality. The findings are similar to the previous examination. Electronically Signed: Eric DavisonDO at 21:41 EDT Reading Location ID and State: [address] [place] [address] Tel [phone], Service support , Physical Exam Const alert, oriented x3 and no apparent distress HEENT normocephalic, head/scalp atraumatic and moist oral mucous membranes Head and Scalp: normocephalic Mouth: oral and palatal mucosa normal Eyes PERRL, EOMs intact bilaterally and conjunctivae normal Neck no lymphadenopathy, supple and no JVD Lymph Lymphatic: no lymphadenopathy noted Resp normal respiratory effort, no retractions, no use of accessory muscles and clear to auscultation bilaterally Effort and Inspection: tachypneic Auscultation: Negative for wheezes Cardio regular rate, regular rhythm, S1 normal heart sound, S2 normal heart sound, no murmurs, no rub and no gallops GI normal to inspection, nondistended, normoactive bowel sounds, soft to palpation, non-tender and non-distended Extremity normal to inspection, full ROM, normal capillary refill and no clubbing, cyanosis or edema General Extremity: clubbing and edema Neuro oriented x3, CN's II-XII intact bilaterally, moves all extremities and no focal motor deficits Sensorium / Orientation: awake and alert Speech: speech normal Motor Exam: strength 5/5 throughout; Negative for general weakness Psych thought process normal and affect normal Appearance: appropriate Assessment & Plan Assessment/Plan (1) Atrial fibrillation with RVR: PLAN: Plan #Afib with RVR * now off cardizem drip * 2D echo: EF of 55%, with moderate concentric LVH and normal LV size, with normal LV sytolic function. Diastolic function indeterminate. RVSP of 25mmhg. 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 * now on cardizem 120mg q12 * stress test ordered for tomorrow * #Hyperkalemia: resolved. K is 4.3 today. #Acute on chronic HFpEF * 2D echo as above * lasix drip discontinued due to worsening renal impairment. * on IV lasix 40mg bid * cardiology and nephrology on board * on lasix drip. Cardiology on board. * #Type 2 diabetes mellitus * on lantus 18 units qhs. ISS. Accuchecks ACHS * check A1C * last A1C was 13.1 in November 2021. * #AIME on CKD3 * Cr is up to 4 today * baseline Cr is 1.16 * cannot be hydrated with IVF due to heart failure * nephrology on board. lasix drip discontinued and patient started on IV lasix 40mg bid. * #Hyperlipidemia: on statin DVT prophylaxis: not indicated as he is on heparin drip. Charges/Coding Visit Charges Inpatient E&M: 78864 [facility] L[facility]
[2022-03-18 13:44] LABS: Hemoglobin A1c 7.8 % (3.8-5.6)
[2022-03-18 16:36] LABS: Bedside Glucose 126 mg/dL (74-106)
[2022-03-18] MEDS: Furosemide 40 MG/4 ML Vial IV (17:18)
[2022-03-18] MEDS: Insulin Glargine-YFGN 100 UNIT/ML Pen 18 UNIT SC (21:21)
[2022-03-18] MEDS: Calcium Carbonate 500 MG Tablet PO (21:22)
[2022-03-18] MEDS: 0.9% Saline Lock 10 ML Syringe IV (21:25)
[2022-03-18 21:45] LABS: Bedside Glucose 203 mg/dL (74-106)
[2022-03-19] VITALS (10 sets, daily range): BP systolic 123–158; BP diastolic 73–94; PULSE 62–95; RESP 16–18; TEMP 36.6–37.2; O2SAT 93–96
[2022-03-19] MEDS: HEPARIN/D5w 25,000 UNITS 25,000 UNITS/250 ML IV.SOLN. 14 UNITS CONT INF ×2 (00:18→19:52)
--- NOTE | 2022-03-19 05:48 | EKG12_ITS ---
Test Reason : AM EKG Blood Pressure : / mmHG Vent. Rate : 076 BPM Atrial Rate : 076 BPM P-R Int : 164 ms QRS Dur : 092 ms QT Int : 410 ms P-R-T Axes : -11 -12 013 degrees QTc Int : 461 ms Normal sinus rhythm Nonspecific ST abnormality Abnormal ECG Confirmed by DIOR MONSON, REMY ([id number]), purchasing expeditor HANNAH BRAY ([id number]) on 03/20/2022 7:32:15 AM Referred By: Confirmed By:REMY RADER MD
--- NOTE | 2022-03-19 05:55 | EKG12_ITS ---
Test Reason : cp Blood Pressure : / mmHG Vent. Rate : 088 BPM Atrial Rate : 000 BPM P-R Int : 000 ms QRS Dur : 088 ms QT Int : 382 ms P-R-T Axes : 000 -10 018 degrees QTc Int : 462 ms Atrial fibrillation Nonspecific ST abnormality Abnormal ECG Confirmed by TATUM MONSON, MARIA D ([id number]), legal editor HANNAH BRAY ([id number]) on 03/19/2022 2:39:28 PM Referred By: Rudy Confirmed By:SAIDA WINN MD
--- NOTE | 2022-03-19 06:25 | NURSING ---
all documentation completed by Kiran reviewed by this RN
[2022-03-19 06:51] LABS: Absolute Lymphocyte Count 1.06 X10^3/uL (0.83-4.51); Absolute Neutrophil Count 4.2 X10^3/uL (2.0-7.7); Basophil# 0.04 X10^3/uL; Basophil% 0.7 % (0-1); Eosinophil# 0.24 X10^3/uL; Eosinophils% 3.9 % (0-5); Hematocrit 28.6 % (40-54); Hemoglobin 9.3 g/dL (13.0-16.5); Lymphocyte # 1.06 X10^3/ul (0.83-4.51); Lymphocyte % 17.4 % (19-41); Mean Corp Hgb Conc 32.5 g/dL (32-36); Mean Corpuscular Hgb 26.6 pg (27.0-32.0); Mean Corpuscular Volume 81.9 fL (80-94); Monocyte# 0.53 X10^3/uL; Monocyte% 8.7 % (0-10); NRBC Flagged by Analyzer 0 % (0-5); Neutrophil # 4.19 X10^3/uL (2.7-7.7); Platelet Count 220 K/mm3 (150-450); RBC Distribution Width CV 14.6 % (11.6-14.6); Red Blood Count 3.49 M/mm3 (4.6-6.2); White Blood Count 6.1 K/mm3 (4.4-11.0)
[2022-03-19 07:13] LABS: Anion Gap 9 (5-15); BUN 74 mg/dL (7-18); BUN/Creat Ratio 18.9 RATIO (10-20); Calcium,Total 8.5 mg/dL (8.5-10.1); Chloride 98 mmol/L (98-107); Creatinine, Serum 3.92 mg/dL (0.70-1.30); EST Glomerular Filtration Rate 17 mL/min (>60); Est Glom Filt Rate - Afr Amer 20 mL/min (>60); Estimated Creatinine Clearance 20.43 ml/min; Glucose 134 mg/dL (74-106); Magnesium 2.6 mg/dL (1.6-2.6); Sodium Level 136 mmol/L (136-145)
[2022-03-19 07:25] LABS: Bedside Glucose 113 mg/dL (74-106)
--- NOTE | 2022-03-19 08:06 | PCM.PN.CARD ---
Subjective Subjective The patient is awake and alert. He denies any ongoing chest discomfort. He appears to be breathing comfortably at this time in the supine position. Objective Data Vital Signs: Vital Signs Temp Pulse Resp BP Pulse Ox O2 Del Method O2 Flow Rate 98.0 F 77 16 154/88 H 94 Room Air 2 03/19/22 06:58 03/19/22 06:58 03/19/22 06:58 03/19/22 06:58 03/19/22 06:58 03/19/22 06:58 03/16/22 12:58 Oxygen Flow Rate (L/min) 2 Oxygen Delivery Method Room Air Weight: 197 lb 15.99 oz Body Mass Index (BMI) 28.4 Intake & Output: Intake and Output for Last 24 Hours 03/17/22 03/18/22 03/19/22 23:59 23:59 23:59 Intake Total 1020.00 / 1020.00 1233.37 / 1233.37 Output Total 1525 / 2125 600 / 600 Balance -505.00 / -1105.00 633.37 / 633.37 Lab / Micro Data Result Diagrams: 03/19/22 05:10 03/19/22 05:10 Labs: Laboratory Results - last 24 hr 03/18/22 06:02: Hemoglobin A1c 7.8 H 03/18/22 08:21: POC Glucose 154 H 03/18/22 11:46: POC Glucose 186 H 03/18/22 16:15: POC Glucose 126 H 03/18/22 21:17: POC Glucose 203 H 03/19/22 05:10: WBC 6.1, RBC 3.49 L, Hgb 9.3 L, Hct 28.6 L, MCV 81.9, MCH 26.6 L, MCHC 32.5, RDW Std Deviation 44.0 H, RDW Coeff of Silvia 14.6, Plt Count 220, MPV 12.0, Immature Gran % (Auto) 0.300, Neut % (Auto) 69.0, Lymph % (Auto) 17.4 L, [place] % (Auto) 8.7, Eos % (Auto) 3.9, Baso % (Auto) 0.7, Absolute Neuts (auto) 4.2, Absolute Lymphs (auto) 1.06, Nucleated RBC % 0 03/19/22 05:10: Sodium 136, Potassium 4.0, Chloride 98, Carbon Dioxide 29.0, Anion Gap 9, BUN 74 H, Creatinine 3.92 H, Estim Creat Clear Calc 20.43, Est GFR (MDRD) Af Amer 20 L, Est GFR (MDRD) Non-Af 17 L, BUN/Creatinine Ratio 18.9, Glucose 134 H, Calcium 8.5, Magnesium 2.6 03/19/22 07:02: POC Glucose 113 H Cardiology Labs/Tests 03/18/22 06:02: Hemoglobin A1c 7.8 H 03/19/22 05:10: WBC 6.1, RBC 3.49 L, Hgb 9.3 L, Hct 28.6 L, MCV 81.9, MCH 26.6 L, MCHC 32.5, Plt Count 220, MPV 12.0, Immature Gran % (Auto) 0.300, Neut % (Auto) 69.0, Lymph % (Auto) 17.4 L, [place] % (Auto) 8.7, Eos % (Auto) 3.9, Baso % (Auto) 0.7, Absolute Neuts (auto) 4.2, Nucleated RBC % 0 03/19/22 05:10: Sodium 136, Potassium 4.0, Chloride 98, Carbon Dioxide 29.0, Anion Gap 9, BUN 74 H, Creatinine 3.92 H, Est GFR (MDRD) Af Amer 20 L, Est GFR (MDRD) Non-Af 17 L, BUN/Creatinine Ratio 18.9, Glucose 134 H, Calcium 8.5, Magnesium 2.6 Rhythm: Sinus rhythm Physical Exam Const alert, oriented x3 and no apparent distress Orientation / Consciousness: awake HEENT normocephalic, head/scalp atraumatic and hearing grossly normal bilaterally Eyes PERRL, EOMs intact bilaterally, conjunctivae normal and no scleral icterus Neck full ROM, supple and no JVD Carotids: normal carotid upstroke Resp normal respiratory effort and clear to auscultation bilaterally Cardio regular rate, regular rhythm, S1 normal heart sound and S2 normal heart sound Heart Sounds: murmur systolic II/ soft mid left sternal border GI normal to inspection, nondistended, normoactive bowel sounds Extremity General Extremity: edema bilateral lower extremity Details: mild Skin no rashes or lesions noted Psych mental status grossly normal Assessment & Plan Assessment/Plan (1) Atrial fibrillation and flutter: PLAN: The patient has been found to have atrial fibrillation with RVR with subsequent conversion to atrial flutter with subsequent conversion to sinus rhythm. The patient has demonstrated subsequent paroxysmal atrial fibrillation. The etiology may be multifactorial based upon a combination of the patient's age, history of hypertension, history of CHF , valvular heart related issues, superimposed upon his other multiple comorbidities. At the present time he has high-sensitivity troponin I levels are negative. His ECG is demonstrated no acute electrocardiographic changes other than the change in his rhythm. His transthoracic echocardiogram has been reviewed. The patient is pending further cardiovascular evaluation is today with a pharmacologic stress nuclear imaging study. This information will help guide further evaluation and care from a cardiovascular standpoint. If he were to have such findings he would continue medical therapy at this time as, with his renal insufficiency, he is not an ideal candidate for invasive cardiovascular studies requiring IV contrast related agents based on the concerns of IV contrast related nephropathy. (2) CHF exacerbation: QUALIFIERS: Heart failure type: unspecified Qualified Code(s): I50.9 - Heart failure, unspecified PLAN: The patient states he has a history of CHF . Based upon his objective studies this would be compatible with a heart failure with preserved ejection fraction type CHF. At the moment based upon his symptoms and his objective studies with respect to laboratory studies this may be compatible with an acute on chronic mediated event. His symptoms may also be exacerbated by his atrial dysrhythmia and his diminished renal function/elevated creatinine level. At the moment he is being monitored. He has been treated with diuretic therapy. His BUN/creatinine levels remain elevated. He is being followed by nephrology. (3) Valvular heart disease: PLAN: He does have an element of underlying valvular heart disease based upon his transthoracic echocardiographic findings suggesting both MR and TR. This may be a contributing factor to his atrial dysrhythmia. At the moment he will continue to be monitored. He will continue medical evaluation and care of his other multiple diagnoses/comorbidities. (4) Hyperlipidemia: QUALIFIERS: Hyperlipidemia type: unspecified Qualified Code(s): E78.5 - Hyperlipidemia, unspecified PLAN: His lipid labs were reviewed. They appear to be under reasonably good control at this time. (5) Hypertension: PLAN: He has a history of hypertension. He states that he minimizes the use of medications because of concerns of side effects. (6) AIME (acute kidney injury): PLAN: He does appear to have worsening renal insufficiency. It is unclear whether this is related to his concerns of frequent loose bowel movements and volume loss versus underlying chronic renal insufficiency/progression secondary to other issues such as his hypertension, diabetes mellitus, etc. Again his renal insufficiency does impact choices of medications and other procedures. At the moment he is being evaluated by internal medicine and nephrology. Addt'l Comments This note was generated using a voice recognition system and there may be incorrect words, spelling or punctuation that were not noted when reviewing the office note prior to saving.
--- NOTE | 2022-03-19 10:17 | PN.HOSP_ITS ---
Subjective Subjective Patient seen and examined. HE had no active complaints today and had an uneventful night. He is due for stress test today. Review of systems otherwise negative. Objective Data Objective Data Vital Signs: Vital Signs Temp Pulse Resp BP Pulse Ox O2 Del Method O2 Flow Rate 98.0 F 79 16 154/88 H 94 Room Air 2 03/19/22 06:58 03/19/22 07:39 03/19/22 06:58 03/19/22 06:58 03/19/22 07:45 03/19/22 07:45 03/16/22 12:58 Oxygen Flow Rate (L/min) 2 Oxygen Delivery Method Room Air Weight: 197 lb 15.99 oz Body Mass Index (BMI) 28.4 Intake & Output: Intake and Output for Last 24 Hours 03/17/22 03/18/22 03/19/22 23:59 23:59 23:59 Intake Total 1020.00 / 1020.00 1233.37 / 1233.37 Output Total 1525 / 2125 600 / 600 Balance -505.00 / -1105.00 633.37 / 633.37 Lab / Micro Data Result Diagrams: 03/19/22 05:10 03/19/22 05:10 Labs: Laboratory Results - last 24 hr 03/18/22 06:02: Hemoglobin A1c 7.8 H 03/18/22 11:46: POC Glucose 186 H 03/18/22 16:15: POC Glucose 126 H 03/18/22 21:17: POC Glucose 203 H 03/19/22 05:10: WBC 6.1, RBC 3.49 L, Hgb 9.3 L, Hct 28.6 L, MCV 81.9, MCH 26.6 L , MCHC 32.5, RDW Std Deviation 44.0 H, RDW Coeff of Silvia 14.6, Plt Count 220, MPV 12.0, Immature Gran % (Auto) 0.300, Neut % (Auto) 69.0, Lymph % (Auto) 17.4 L, [place] % (Auto) 8.7, Eos % (Auto) 3.9, Baso % (Auto) 0.7, Absolute Neuts (auto) 4.2, Absolute Lymphs (auto) 1.06, Nucleated RBC % 0 03/19/22 05:10: Sodium 136, Potassium 4.0, Chloride 98, Carbon Dioxide 29.0, A nion Gap 9, BUN 74 H, Creatinine 3.92 H, Estim Creat Clear Calc 20.43, Est GFR (MDRD) Af Amer 20 L, Est GFR (MDRD) Non-Af 17 L, BUN/Creatinine Ratio 18.9, Glucose 134 H, Calcium 8.5, Magnesium 2.6 03/19/22 07:02: POC Glucose 113 H Physical Exam Const alert, oriented x3 and no apparent distress HEENT normocephalic, head/scalp atraumatic and moist oral mucous membranes Eyes PERRL, EOMs intact bilaterally and conjunctivae normal Neck no lymphadenopathy, supple and no JVD Lymph Lymphatic: no lymphadenopathy noted Resp normal respiratory effort, no retractions, no use of accessory muscles and clear to auscultation bilaterally Effort and Inspection: tachypneic Auscultation: Negative for wheezes Cardio regular rate, regular rhythm, S1 normal heart sound, S2 normal heart sound, no murmurs, no rub and no gallops Cardio Narrative: afib Rhythm: abnormal rhythm irregularly irregular GI normal to inspection, nondistended, normoactive bowel sounds, soft to palpation, non-tender and non-distended Extremity normal to inspection, full ROM, normal capillary refill and no clubbing, cyanosis or edema General Extremity: clubbing and edema Neuro oriented x3, CN's II-XII intact bilaterally, moves all extremities and no focal motor deficits Sensorium / Orientation: awake and alert Speech: speech normal Motor Exam: strength 5/5 throughout; Negative for general weakness Psych thought process normal and affect normal Appearance: appropriate Assessment & Plan Assessment/Plan (1) Atrial fibrillation with RVR: PLAN: Plan #Afib with RVR * now off cardizem drip * 2D echo: EF of 55%, with moderate concentric LVH and normal LV size, with normal LV sytolic function. Diastolic function indeterminate. RVSP of 25mmhg. * CHADVASC score is 4; patient on heparin drip * cardiology on board * now on cardizem 120mg q12 * for stress test today * #Hyperkalemia: resolved. K is 4.3 today. #Acute on chronic HFpEF * 2D echo as above * lasix drip discontinued due to worsening renal impairment. * on IV lasix 40mg bid * cardiology and nephrology on board * Cardiology on board. * #Type 2 diabetes mellitus * on lantus 18 units qhs. ISS. Accuchecks ACHS * check A1C * last A1C was 13.1 in November 2021. * #AIME on CKD3 * Cr is slightly down to 3.92 today * baseline Cr is 1.16 * cannot be hydrated with IVF due to heart failure * nephrology on board. lasix drip discontinued and patient started on IV lasix 40mg bid. * #Hyperlipidemia: on statin DVT prophylaxis: not indicated as he is on heparin drip. Charges/Coding Visit Charges Inpatient E&M: 84466 Subs Hosp L2
--- NOTE | 2022-03-19 10:45 | STRESSREP ---
Stress Test Report Date: 03-19-2022 Procedure: Pharmacologic stress nuclear imaging study Indications: Atrial fibrillation; heart failure: Preserved ejection fraction; valvular heart disease; hyperlipidemia; hypertension; acute renal insufficiency Consent: Per the patient Procedure: The patient underwent pharmacologic (Regadenoson 0.4mg ) evaluation with a peak heart rate of 85 beats per minute (53%predicted maximal heart rate) and a peak blood pressure of 178/98 mmHg. The baseline ECG demonstrated sinus rhythm; poor R wave progression. The peak pharmacologic ECG demonstrated no obvious ECG changes. There were no cardiac dysrhythmias pretest, during pharmacologic infusion, or recovery. There was no complaint of chest discomfort during pharmacologic infusion or recovery. The examination was discontinued secondary to completion of protocol. Impression: 1. Pharmacologic (Regadenoson) evaluation 2. Peak pharmacologic ECG with no obvious ECG changes. 3. There were no cardiac dysrhythmias pretest, during pharmacologic infusion, or recovery. 4. Nuclear images pending Myocardial perfusion imaging study: Technique: The patient was injected with 11.7 millicuries of technetium 99m Cardiolite and subsequently rest SPECT Cardiolite nuclear imaging was obtained in the horizontal long, vertical long, and short axis views. The patient underwent pharmacologic (Regadenoson) evaluation with a peak heart rate of 85 beats per minute (53% percent predicted maximal heart rate) and a peak blood pressure of 178/98 mmHg. The patient was injected with 34.4 millicuries of technetium 99m Cardiolite and subsequently stress SPECT Cardiolite nuclear imaging was obtained in the horizontal long, vertical long, and short axis views. A gated Cardiolite study at peak stress was obtained. Interpretation: Rest and stress SPECT Cardiolite nuclear imaging status post realignment, normalization, and attenuation correction demonstrate relative uniform tracer uptake and myocardial perfusion appearing within normal limits. There is end systolic thickening and brightening. The gated Cardiolite study demonstrates myocardial thickening and inward wall motion. The reported LVEF is 57%. Impression: 1. Rest and stress SPECT Cardiolite nuclear imaging demonstrate relative uniform tracer uptake and myocardial perfusion appearing within normal limits. 2. The gated Cardiolite study reports an LVEF of 57%. This note was generated with [employer] software. It may contain incorrect words, spelling, and punctuation that were not noted in checking the note before signing.
--- NOTE | 2022-03-19 11:05 | PN.RENAL_ITS ---
Subjective Subjective Following for AIME on CKD. The patient denies chest pain, shortness of breath, nausea, or vomiting. Edema is still present but improved subjectively. Objective Data Objective Data Vital Signs: Vital Signs Temp Pulse Resp BP Pulse Ox O2 Del Method O2 Flow Rate 98.0 F 79 16 154/88 H 94 Room Air 2 03/19/22 06:58 03/19/22 07:39 03/19/22 06:58 03/19/22 06:58 03/19/22 07:45 03/19/22 07:45 03/16/22 12:58 Oxygen Flow Rate (L/min) 2 Oxygen Delivery Method Room Air Weight: 89.811 kg Body Mass Index (BMI) 28.4 Intake & Output: Intake and Output for Last 24 Hours 03/17/22 03/18/22 03/19/22 23:59 23:59 23:59 Intake Total 1020.00 / 1020.00 1233.37 / 1233.37 Output Total 1525 / 2125 600 / 600 Balance -505.00 / -1105.00 633.37 / 633.37 Lab / Micro Data Result Diagrams: 03/19/22 05:10 03/19/22 05:10 Labs: Laboratory Results - last 24 hr 03/18/22 06:02: Hemoglobin A1c 7.8 H 03/18/22 11:46: POC Glucose 186 H 03/18/22 16:15: POC Glucose 126 H 03/18/22 21:17: POC Glucose 203 H 03/19/22 05:10: WBC 6.1, RBC 3.49 L, Hgb 9.3 L, Hct 28.6 L, MCV 81.9, MCH 26.6 L , MCHC 32.5, RDW Std Deviation 44.0 H, RDW Coeff of Silvia 14.6, Plt Count 220, MPV 12.0, Immature Gran % (Auto) 0.300, Neut % (Auto) 69.0, Lymph % (Auto) 17.4 L, [place] % (Auto) 8.7, Eos % (Auto) 3.9, Baso % (Auto) 0.7, Absolute Neuts (auto) 4.2, Absolute Lymphs (auto) 1.06, Nucleated RBC % 0 03/19/22 05:10: Sodium 136, Potassium 4.0, Chloride 98, Carbon Dioxide 29.0, Anion Gap 9, BUN 74 H, Creatinine 3.92 H, Estim Creat Clear Calc 20.43, Est GFR (MDRD) Af Amer 20 L, Est GFR (MDRD) Non-Af 17 L, BUN/Creatinine Ratio 18.9, Glucose 134 H, Calcium 8.5, Magnesium 2.6 03/19/22 07:02: POC Glucose 113 H Physical Exam Narrative General: Alert and oriented x3 in no apparent distress. HEENT: Normocephalic, atraumatic. Mucous membrane moist without erythema. PERRLA, EOMI. Hearing is intact. Neck: Supple.. Heart: Irregularly irregular S1-S2. No rubs, murmurs or gallops. Lungs: Decreased breath sound at bases bilaterally especially right lower lobe. Abdomen: Normal bowel sound, soft, nontender, no guarding or rebound. Extremities: No clubbing or cyanosis. There is 3+ edema of the lower extremities bilaterally. Assessment & Plan Assessment/Plan (1) AIME (acute kidney injury): PLAN: The patient has been losing kidney function since November 2021. Serum creatinine has increased from baseline of 2.06 mg/dL on 11/10/2021 up to 4.03 mg/dL on 03/18/2022. AIME is likely due to progression of underlying diabetic kidney disease along with CRS. Renal functions a bit better today. BP has been stable with treatment of atrial fibrillation. Since he is more hemodynamically stable, I was hoping to see stability of kidney function. Unfortunately, serum creatinine had decreased on 03/18/2022. I change his Lasix drip to intermittent IV Lasix. Continue diuresis for now since he is still volume overloaded. There is no immediate need for kidney replacement therapy currently. However, the patient was informed that if his renal function continue to worsen or if we cannot keep him from becoming volume overloaded without Lasix drip, he may still need to proceed with kidney replacement therapy. We will continue to monitor his renal function, volume status, electrolytes, acid-base status. (2) Chronic kidney disease, stage 4 (severe): PLAN: The patient has underlying chronic kidney disease. Serum creatinine was already 2.06 mg/dL in November 2021. He was also found to have significant urine protein during the last admission. CKD is due to diabetic kidney disease. (3) Hyperkalemia: PLAN: The patient presented to the hospital with potassium level of 6.0 mmol/L. Hyperkalemia was likely due to AIME on CKD. The patient was not on JETHRO inhibitor/ARB or potassium supplementation prior to admission. Potassium is better today at 4.0 mmol/L. There is no need for kidney replacement therapy for hyperkalemia. Will continue to monitor potassium level. (4) Atrial fibrillation with RVR: PLAN: The patient is being seen by cardiology. He is currently on heparin and furosemide drip. Heart rate is now under control with diltiazem.
[2022-03-19] MEDS: Furosemide 40 MG/4 ML Vial IV ×2 (11:46→17:53)
[2022-03-19] MEDS: dilTIAZem CD 120 MG Capsule PO ×2 (11:47→21:00)
[2022-03-19] MEDS: Insulin Lispro 100 UNIT/ML INSULN.PEN SC ×2 (11:47→17:53)
[2022-03-19 12:10] LABS: Bedside Glucose 122 mg/dL (74-106)
[2022-03-19] MEDS: 0.9% Saline Lock 10 ML Syringe IV (17:53)
[2022-03-19 18:20] LABS: Bedside Glucose 170 mg/dL (74-106)
[2022-03-19] MEDS: Insulin Glargine-YFGN 100 UNIT/ML Pen 18 UNIT SC (21:00)
[2022-03-19 21:22] LABS: Partial Thromboplast Time 56.8 Seconds (24.1-36.2)
[2022-03-20] VITALS (9 sets, daily range): BP systolic 118–158; BP diastolic 82–87; PULSE 71–96; RESP 16–18; TEMP 36.2–37.1; O2SAT 93–97
[2022-03-20 00:55] LABS: Bedside Glucose 205 mg/dL (74-106)
[2022-03-20 06:05] LABS: Absolute Lymphocyte Count 1.08 X10^3/uL (0.83-4.51); Absolute Neutrophil Count 2.8 X10^3/uL (2.0-7.7); Basophil# 0.04 X10^3/uL; Basophil% 0.9 % (0-1); Eosinophil# 0.23 X10^3/uL; Hemoglobin 9.3 g/dL (13.0-16.5); Lymphocyte # 1.08 X10^3/ul (0.83-4.51); Lymphocyte % 23.4 % (19-41); Mean Corp Hgb Conc 32.1 g/dL (32-36); Mean Corpuscular Hgb 26.6 pg (27.0-32.0); Mean Corpuscular Volume 83.1 fL (80-94); Mean Platelet Vol. 11.2 fl (6.2-12.0); Monocyte# 0.42 X10^3/uL; Monocyte% 9.1 % (0-10); NRBC Flagged by Analyzer 0 % (0-5); Neutrophil # 2.84 X10^3/uL (2.7-7.7); Neutrophil % 61.4 % (47-70); Platelet Count 218 K/mm3 (150-450); RBC Distribution Width CV 14.7 % (11.6-14.6); RBC Distribution Width SD 44.9 fl (35.1-43.9); Red Blood Count 3.49 M/mm3 (4.6-6.2); White Blood Count 4.6 K/mm3 (4.4-11.0)
[2022-03-20 06:19] LABS: Partial Thromboplast Time 66.6 Seconds (24.1-36.2)
[2022-03-20 07:03] LABS: Anion Gap 9 (5-15); BUN 74 mg/dL (7-18); BUN/Creat Ratio 18.6 RATIO (10-20); Calcium,Total 8.8 mg/dL (8.5-10.1); Chloride 99 mmol/L (98-107); Creatinine, Serum 3.98 mg/dL (0.70-1.30); EST Glomerular Filtration Rate 16 mL/min (>60); Est Glom Filt Rate - Afr Amer 20 mL/min (>60); Estimated Creatinine Clearance 20.12 ml/min; Glucose 233 mg/dL (74-106); Magnesium 2.2 mg/dL (1.6-2.6); Sodium Level 136 mmol/L (136-145)
[2022-03-20] MEDS: Insulin Lispro 100 UNIT/ML INSULN.PEN SC ×3 (08:06→16:38)
[2022-03-20] MEDS: Furosemide 40 MG/4 ML Vial IV ×2 (08:07→16:40)
[2022-03-20] MEDS: dilTIAZem CD 120 MG Capsule PO ×2 (08:07→23:00)
[2022-03-20] MEDS: 0.9% Saline Lock 10 ML Syringe IV ×2 (08:08→16:40)
[2022-03-20 09:55] LABS: Bedside Glucose 185 mg/dL (74-106)
--- NOTE | 2022-03-20 10:34 | PCM.PN.CARD ---
Subjective Subjective The patient has been resting comfortably from a cardiac standpoint. He has had no new acute cardiac complaints. Objective Data Vital Signs: Vital Signs Temp Pulse Resp BP Pulse Ox O2 Del Method O2 Flow Rate 98.7 F 87 16 129/82 H 93 Room Air 2 03/20/22 07:49 03/20/22 07:49 03/20/22 07:49 03/20/22 07:49 03/20/22 07:49 03/20/22 07:54 03/16/22 12:58 Oxygen Flow Rate (L/min) 2 Oxygen Delivery Method Room Air Weight: 197 lb 15.99 oz Body Mass Index (BMI) 28.4 Intake & Output: Intake and Output for Last 24 Hours 03/18/22 03/19/22 03/20/22 23:59 23:59 23:59 Intake Total 1233.37 / 1233.37 250.00 / 250.00 Output Total 600 / 600 300 / 300 Balance 633.37 / 633.37 -50.00 / -50.00 Lab / Micro Data Result Diagrams: 03/20/22 05:35 03/20/22 05:35 Labs: Laboratory Results - last 24 hr 03/19/22 11:40: POC Glucose 122 H 03/19/22 17:51: POC Glucose 170 H 03/19/22 20:13: APTT 56.8 H 03/19/22 20:55: POC Glucose 205 H 03/20/22 05:35: WBC 4.6, RBC 3.49 L, Hgb 9.3 L, Hct 29.0 L, MCV 83.1, MCH 26.6 L, MCHC 32.1, RDW Std Deviation 44.9 H, RDW Coeff of Silvia 14.7 H, Plt Count 218, MPV 11.2, Immature Gran % (Auto) 0.200, Neut % (Auto) 61.4, Lymph % (Auto) 23.4, [place] % (Auto) 9.1, Eos % (Auto) 5.0, Baso % (Auto) 0.9, Absolute Neuts (auto) 2.8, Absolute Lymphs (auto) 1.08, Nucleated RBC % 0 03/20/22 05:35: Sodium 136, Potassium 4.0, Chloride 99, Carbon Dioxide 28.0, Anion Gap 9, BUN 74 H, Creatinine 3.98 H, Estim Creat Clear Calc 20.12, Est GFR (MDRD) Af Amer 20 L, Est GFR (MDRD) Non-Af 16 L, BUN/Creatinine Ratio 18.6, Glucose 233 H, Calcium 8.8, Magnesium 2.2 03/20/22 05:35: APTT 66.6 H 03/20/22 08:05: POC Glucose 185 H Cardiology Labs/Tests 03/19/22 20:13: APTT 56.8 H 03/20/22 05:35: WBC 4.6, RBC 3.49 L, Hgb 9.3 L, Hct 29.0 L, MCV 83.1, MCH 26.6 L, MCHC 32.1, Plt Count 218, MPV 11.2, Immature Gran % (Auto) 0.200, Neut % (Auto) 61.4, Lymph % (Auto) 23.4, [place] % (Auto) 9.1, Eos % (Auto) 5.0, Baso % (Auto) 0.9, Absolute Neuts (auto) 2.8, Nucleated RBC % 0 03/20/22 05:35: Sodium 136, Potassium 4.0, Chloride 99, Carbon Dioxide 28.0, Anion Gap 9, BUN 74 H, Creatinine 3.98 H, Est GFR (MDRD) Af Amer 20 L, Est GFR (MDRD) Non-Af 16 L, BUN/Creatinine Ratio 18.6, Glucose 233 H, Calcium 8.8, Magnesium 2.2 03/20/22 05:35: APTT 66.6 H Rhythm: Sinus rhythm; paroxysmal atrial fibrillation Echocardiogram: Interpretation Summary Left ventricular systolic function is normal. The estimated ejection fraction is 55 %. Moderate concentric left ventricular hypertrophy. The left atrium is moderately enlarged. The right atrium is mildly enlarged. Mild focal mitral valve calcification of the anterior leaflet. Moderate (2+) mitral valve insufficiency. Moderately severe (3+) tricuspid valve insufficiency. Mild focal aortic valve calcification. Trivial pericardial effusion. There are no echocardiographic indications of cardiac tamponade. Right ventricular systolic pressure estimated to be 25 mmHg. Diastolic function is indeterminate. Stress Test: Stress Test Report Date: 03-19-2022 Procedure: Pharmacologic stress nuclear imaging study? Indications: Atrial fibrillation; heart failure: Preserved ejection fraction; valvular heart disease; hyperlipidemia; hypertension; acute renal insufficiency Consent: Per the patient Procedure: The patient underwent pharmacologic (Regadenoson 0.4mg ) evaluation with a peak heart rate of 85 beats per minute (53%predicted maximal heart rate) and a peak blood pressure of 178/98 mmHg. The baseline ECG demonstrated sinus rhythm; poor R wave progression.? The peak pharmacologic ECG demonstrated no obvious ECG changes. There were no cardiac dysrhythmias pretest, during pharmacologic infusion, or recovery. There was no complaint of chest discomfort during pharmacologic infusion or recovery. The examination was discontinued secondary to completion of protocol. Impression: 1.? Pharmacologic (Regadenoson) evaluation 2.? Peak pharmacologic ECG with no obvious ECG changes. 3.? There were no cardiac dysrhythmias pretest, during pharmacologic infusion, or recovery. 4.? Nuclear images pending Myocardial perfusion imaging study: Technique: The patient was injected with 11.7 millicuries of technetium 99m Cardiolite and subsequently rest SPECT Cardiolite nuclear imaging was obtained in the horizontal long, vertical long, and short axis views. The patient underwent pharmacologic (Regadenoson) evaluation with a peak heart rate of 85 beats per minute (53% percent predicted maximal heart rate) and a peak blood pressure of 178/98 mmHg. The patient was injected with 34.4 millicuries of technetium 99m Cardiolite and subsequently stress SPECT Cardiolite nuclear imaging was obtained in the horizontal long, vertical long, and short axis views.? A gated Cardiolite study at peak stress was obtained. Interpretation: Rest and stress SPECT Cardiolite nuclear imaging status post realignment, normalization, and attenuation correction demonstrate relative uniform tracer uptake and myocardial perfusion appearing within normal limits.? There is end systolic thickening and brightening.? The gated Cardiolite study demonstrates myocardial thickening and inward wall motion.? The reported LVEF is 57%. Impression: 1.? Rest and stress SPECT Cardiolite nuclear imaging demonstrate relative uniform tracer uptake and myocardial perfusion appearing within normal limits. 2.? The gated Cardiolite study reports an LVEF of 57%. Physical Exam Const alert, oriented x3 and no apparent distress Orientation / Consciousness: awake HEENT normocephalic, head/scalp atraumatic and hearing grossly normal bilaterally Eyes PERRL, EOMs intact bilaterally, conjunctivae normal and no scleral icterus Neck full ROM, supple and no JVD Carotids: normal carotid upstroke Resp normal respiratory effort and clear to auscultation bilaterally Cardio regular rate, regular rhythm, S1 normal heart sound and S2 normal heart sound Heart Sounds: murmur systolic II/ soft mid left sternal border GI normal to inspection, nondistended, normoactive bowel sounds Extremity General Extremity: edema bilateral lower extremity Details: mild Skin no rashes or lesions noted Psych mental status grossly normal Assessment & Plan Assessment/Plan (1) Atrial fibrillation and flutter: PLAN: The patient has been found to have atrial fibrillation with RVR with subsequent conversion to atrial flutter with subsequent conversion to sinus rhythm. The patient has demonstrated subsequent paroxysmal atrial fibrillation. The etiology may be multifactorial based upon a combination of the patient's age, history of hypertension, history of CHF , valvular heart related issues, superimposed upon his other multiple comorbidities. At the present time he has high-sensitivity troponin I levels are negative. His ECG is demonstrated no acute electrocardiographic changes other than the change in his rhythm. His transthoracic echocardiogram has been reviewed. The patient has undergone further evaluation with a pharmacologic stress nuclear imaging study. This appears to be negative at this time. Thus, there are no immediate plans for additional invasive evaluation such as diagnostic cardiac catheterization. (2) CHF exacerbation: QUALIFIERS: Heart failure type: unspecified Qualified Code(s): I50.9 - Heart failure, unspecified PLAN: The patient states he has a history of CHF . Based upon his objective studies this would be compatible with a heart failure with preserved ejection fraction type CHF. At the moment based upon his symptoms and his objective studies with respect to laboratory studies this may be compatible with an acute on chronic mediated event. His symptoms may also be exacerbated by his atrial dysrhythmia and his diminished renal function/elevated creatinine level. At the moment he is being monitored. He has been treated with diuretic therapy. His BUN/creatinine levels remain elevated. He is being followed by nephrology. (3) Valvular heart disease: PLAN: He does have an element of underlying valvular heart disease based upon his transthoracic echocardiographic findings suggesting both MR and TR. This may be a contributing factor to his atrial dysrhythmia. At the moment he will continue to be monitored. He will continue medical evaluation and care of his other multiple diagnoses/comorbidities. (4) Hyperlipidemia: QUALIFIERS: Hyperlipidemia type: unspecified Qualified Code(s): E78.5 - Hyperlipidemia, unspecified PLAN: His lipid labs were reviewed. They appear to be under reasonably good control at this time. (5) Hypertension: PLAN: He has a history of hypertension. He states that he minimizes the use of medications because of concerns of side effects. (6) AIME (acute kidney injury): PLAN: He does appear to have worsening renal insufficiency. Again his renal insufficiency does impact choices of medications and other procedures. At the moment he is being evaluated by internal medicine and nephrology. His case was discussed with Dr. Adrian of nephrology. At the present time it appears that Dr. Adrian is going to discuss with the patient proceeding with hemodialysis therapy based upon his persistent renal insufficiency and concerns of his volume status, etc. With that in mind, the patient will continue his anticoagulation therapy with IV heparin at this time as opposed to initiation of oral anticoagulant therapy. Once the patient has had a dialysis catheter placed and the site is stable, then depending upon his future clinical course and needs, he can be transitioned to oral anticoagulant therapy. Addt'l Comments This note was generated using a voice recognition system and there may be incorrect words, spelling or punctuation that were not noted when reviewing the office note prior to saving.
--- NOTE | 2022-03-20 10:35 | PCM.PN.REN ---
Subjective Subjective Following for AIME on CKD. The patient feels better subjectively. He is able to walk more comfortably with less edema in the lower extremities. There is no chest pain, shortness of breath, or nausea. Objective Data Objective Data Vital Signs: Vital Signs Temp Pulse Resp BP Pulse Ox O2 Del Method O2 Flow Rate 98.7 F 87 16 129/82 H 93 Room Air 2 03/20/22 07:49 03/20/22 07:49 03/20/22 07:49 03/20/22 07:49 03/20/22 07:49 03/20/22 07:54 03/16/22 12:58 Oxygen Flow Rate (L/min) 2 Oxygen Delivery Method Room Air Weight: 89.811 kg Body Mass Index (BMI) 28.4 Intake & Output: Intake and Output for Last 24 Hours 03/18/22 03/19/22 03/20/22 23:59 23:59 23:59 Intake Total 1233.37 / 1233.37 250.00 / 250.00 Output Total 600 / 600 300 / 300 Balance 633.37 / 633.37 -50.00 / -50.00 Lab / Micro Data Result Diagrams: 03/20/22 05:35 03/20/22 05:35 Labs: Laboratory Results - last 24 hr 03/19/22 11:40: POC Glucose 122 H 03/19/22 17:51: POC Glucose 170 H 03/19/22 20:13: APTT 56.8 H 03/19/22 20:55: POC Glucose 205 H 03/20/22 05:35: WBC 4.6, RBC 3.49 L, Hgb 9.3 L, Hct 29.0 L, MCV 83.1, MCH 26.6 L, MCHC 32.1, RDW Std Deviation 44.9 H, RDW Coeff of Silvia 14.7 H, Plt Count 218, MPV 11.2, Immature Gran % (Auto) 0.200, Neut % (Auto) 61.4, Lymph % (Auto) 23.4, [place] % (Auto) 9.1, Eos % (Auto) 5.0, Baso % (Auto) 0.9, Absolute Neuts (auto) 2.8, Absolute Lymphs (auto) 1.08, Nucleated RBC % 0 03/20/22 05:35: Sodium 136, Potassium 4.0, Chloride 99, Carbon Dioxide 28.0, Anion Gap 9, BUN 74 H, Creatinine 3.98 H, Estim Creat Clear Calc 20.12, Est GFR (MDRD) Af Amer 20 L, Est GFR (MDRD) Non-Af 16 L, BUN/Creatinine Ratio 18.6, Glucose 233 H, Calcium 8.8, Magnesium 2.2 03/20/22 05:35: APTT 66.6 H 03/20/22 08:05: POC Glucose 185 H Physical Exam Narrative General: Alert and oriented x3 in no apparent distress. HEENT: Normocephalic, atraumatic. Mucous membrane moist without erythema. PERRLA, EOMI. Hearing is intact. Neck: Supple.. Heart: Irregularly irregular S1-S2. No rubs, murmurs or gallops. Lungs: Decreased breath sound at bases bilaterally especially right lower lobe. Abdomen: Normal bowel sound, soft, nontender, no guarding or rebound. Extremities: No clubbing or cyanosis. There is 3+ edema of the lower extremities bilaterally. Assessment & Plan Assessment/Plan (1) AIME (acute kidney injury): PLAN: The patient has been losing kidney function since November 2021. Serum creatinine has increased from baseline of 2.06 mg/dL on 11/10/2021 up to 4.03 mg/dL on 03/18/2022. AIME is likely due to progression of underlying diabetic kidney disease along with CRS. Renal function is not much better in the last 48 hours despite cutting back on Lasix. Moreover, the patient still appears to be volume overloaded. Continue diuresis for now since he is still volume overloaded. There is no immediate need for kidney replacement therapy currently. However, the patient was informed that if his renal function continue to worsen or if he is refractory to intermittent IV Lasix in terms of volume control, he will need to proceed with kidney replacement therapy. We will continue to monitor his renal function, volume status, electrolytes, acid-base status. (2) Chronic kidney disease, stage 4 (severe): PLAN: The patient has underlying chronic kidney disease. Serum creatinine was already 2.06 mg/dL in November 2021. He was also found to have significant urine protein during the last admission. CKD is due to diabetic kidney disease. (3) Hyperkalemia: PLAN: The patient presented to the hospital with potassium level of 6.0 mmol/L. Hyperkalemia was likely due to AIME on CKD. The patient was not on JETHRO inhibitor/ARB or potassium supplementation prior to admission. Potassium is stable today at 4.0 mmol/L. Will continue to monitor potassium level. (4) Atrial fibrillation with RVR: PLAN: The patient is being seen by cardiology. He is currently on heparin and furosemide drip. Heart rate is now under control with diltiazem. I did discuss the case with Dr. Strong earlier today. We are keeping the patient on heparin drip for now in anticipation for possible tunneled dialysis catheter placement early next week.
--- NOTE | 2022-03-20 11:11 | PN.HOSP_ITS ---
Subjective Subjective Patient seen and examined. He complains of a possible seizure which was witnessed by his . HE says his noticed him having generalized shaking and they were concerned about a seizure. He says he was lethargic afterwards. He says he has had seizures previously, and was on keppra for about a month, but this was stopped. He denied any fever, chills, nausea, vomiting or diarrhea. Review of systems is otherwise negative. Objective Data Objective Data Vital Signs: Vital Signs Temp Pulse Resp BP Pulse Ox O2 Del Method O2 Flow Rate 98.7 F 87 16 129/82 H 93 Room Air 2 03/20/22 07:49 03/20/22 07:49 03/20/22 07:49 03/20/22 07:49 03/20/22 07:49 03/20/22 07:54 03/16/22 12:58 Oxygen Flow Rate (L/min) 2 Oxygen Delivery Method Room Air Weight: 197 lb 15.99 oz Body Mass Index (BMI) 28.4 Intake & Output: Intake and Output for Last 24 Hours 03/18/22 03/19/22 03/20/22 23:59 23:59 23:59 Intake Total 1233.37 / 1233.37 250.00 / 250.00 Output Total 600 / 600 300 / 300 Balance 633.37 / 633.37 -50.00 / -50.00 Lab / Micro Data Result Diagrams: 03/20/22 05:35 03/20/22 05:35 Labs: Laboratory Results - last 24 hr 03/19/22 11:40: POC Glucose 122 H 03/19/22 17:51: POC Glucose 170 H 03/19/22 20:13: APTT 56.8 H 03/19/22 20:55: POC Glucose 205 H 03/20/22 05:35: WBC 4.6, RBC 3.49 L, Hgb 9.3 L, Hct 29.0 L, MCV 83.1, MCH 26.6 L , MCHC 32.1, RDW Std Deviation 44.9 H, RDW Coeff of Silvia 14.7 H, Plt Count 218, MPV 11.2, Immature Gran % (Auto) 0.200, Neut % (Auto) 61.4, Lymph % (Auto) 23.4, [place] % (Auto) 9.1, Eos % (Auto) 5.0, Baso % (Auto) 0.9, Absolute Neuts (auto) 2. 8, Absolute Lymphs (auto) 1.08, Nucleated RBC % 0 03/20/22 05:35: Sodium 136, Potassium 4.0, Chloride 99, Carbon Dioxide 28.0, Anion Gap 9, BUN 74 H, Creatinine 3.98 H, Estim Creat Clear Calc 20.12, Est GFR (MDRD) Af Amer 20 L, Est GFR (MDRD) Non-Af 16 L, BUN/Creatinine Ratio 18.6, Glucose 233 H, Calcium 8.8, Magnesium 2.2 03/20/22 05:35: APTT 66.6 H 03/20/22 08:05: POC Glucose 185 H Physical Exam Const alert, oriented x3 and no apparent distress HEENT normocephalic, head/scalp atraumatic and moist oral mucous membranes Head and Scalp: normocephalic Mouth: oral and palatal mucosa normal Eyes PERRL, EOMs intact bilaterally and conjunctivae normal Neck no lymphadenopathy, supple and no JVD Lymph Lymphatic: no lymphadenopathy noted Resp normal respiratory effort, no retractions, no use of accessory muscles and clear to auscultation bilaterally Effort and Inspection: tachypneic Auscultation: Negative for wheezes Cardio regular rate, regular rhythm, S1 normal heart sound, S2 normal heart sound, no murmurs, no rub and no gallops Cardio Narrative: afib Rhythm: abnormal rhythm irregularly irregular GI normal to inspection, nondistended, normoactive bowel sounds, soft to palpation, non-tender and non-distended Extremity normal to inspection, full ROM, normal capillary refill and no clubbing, cyanosis or edema General Extremity: clubbing and edema Neuro oriented x3, CN's II-XII intact bilaterally, moves all extremities and no focal motor deficits Sensorium / Orientation: awake and alert Speech: speech normal Motor Exam: strength 5/5 throughout; Negative for general weakness Psych thought process normal and affect normal Appearance: appropriate Assessment & Plan Assessment/Plan (1) Atrial fibrillation with RVR: PLAN: Plan #Afib with RVR * 2D echo: EF of 55%, with moderate concentric LVH and normal LV size, with normal LV sytolic function. Diastolic function indeterminate. RVSP of 25mmhg. * CHADVASC score is 4; patient on heparin drip * cardiology on board * now on cardizem 120mg q12 * stress test is negative. * #Hyperkalemia: resolved. K is 4.3 today. #?? seizure * says he had generalized tremors which was concerning for seizure * get EEG * says he used to be on keppra * consult neurology * #Acute on chronic HFpEF * 2D echo as above * lasix drip discontinued due to worsening renal impairment. * on IV lasix 40mg bid * cardiology and nephrology on board * Cardiology on board. * #Type 2 diabetes mellitus * on lantus 18 units qhs. ISS. Accuchecks ACHS * check A1C * last A1C was 13.1 in November 2021. * #AIME on CKD3 * Cr is 3.98 today. * baseline Cr is 1.16 * cannot be hydrated with IVF due to heart failure * nephrology on board. lasix drip discontinued and patient now on IV lasix 40mg bid. * #Hyperlipidemia: on statin DVT prophylaxis: not indicated as he is on heparin drip. Charges/Coding Visit Charges Inpatient E&M: 20133 Subs Hosp L2
[2022-03-20] MEDS: HEPARIN/D5w 25,000 UNITS 25,000 UNITS/250 ML IV.SOLN. 14 UNITS CONT INF (11:55)
[2022-03-20 13:11] LABS: Bedside Glucose 250 mg/dL (74-106)
[2022-03-20 17:36] LABS: Bedside Glucose 142 mg/dL (74-106)
[2022-03-20] MEDS: Insulin Glargine-YFGN 100 UNIT/ML Pen 18 UNIT SC (23:02)
[2022-03-20 23:25] LABS: Bedside Glucose 184 mg/dL (74-106)
[2022-03-21] VITALS (11 sets, daily range): BP systolic 155–185; BP diastolic 91–101; PULSE 74–86; RESP 16; TEMP 36.5–36.9; O2SAT 93–100
[2022-03-21] MEDS: HEPARIN/D5w 25,000 UNITS 25,000 UNITS/250 ML IV.SOLN. 14 UNITS CONT INF ×2 (05:23→23:08)
[2022-03-21 05:48] LABS: Absolute Neutrophil Count 2.6 X10^3/uL (2.0-7.7); Basophil# 0.03 X10^3/uL; Basophil% 0.6 % (0-1); Eosinophil# 0.23 X10^3/uL; Hematocrit 30.6 % (40-54); Hemoglobin 9.8 g/dL (13.0-16.5); Lymphocyte % 28.1 % (19-41); Mean Corpuscular Hgb 26.4 pg (27.0-32.0); Mean Corpuscular Volume 82.5 fL (80-94); Mean Platelet Vol. 10.9 fl (6.2-12.0); Monocyte# 0.42 X10^3/uL; Monocyte% 9.1 % (0-10); NRBC Flagged by Analyzer 0 % (0-5); Neutrophil # 2.63 X10^3/uL (2.7-7.7); Platelet Count 247 K/mm3 (150-450); RBC Distribution Width CV 14.6 % (11.6-14.6); RBC Distribution Width SD 43.6 fl (35.1-43.9); Red Blood Count 3.71 M/mm3 (4.6-6.2); White Blood Count 4.6 K/mm3 (4.4-11.0)
[2022-03-21 06:04] LABS: Anion Gap 8 (5-15); BUN 73 mg/dL (7-18); BUN/Creat Ratio 19.9 RATIO (10-20); Calcium,Total 8.8 mg/dL (8.5-10.1); Chloride 100 mmol/L (98-107); Creatinine, Serum 3.66 mg/dL (0.70-1.30); EST Glomerular Filtration Rate 18 mL/min (>60); Est Glom Filt Rate - Afr Amer 22 mL/min (>60); Estimated Creatinine Clearance 21.88 ml/min; Glucose 203 mg/dL (74-106); Magnesium 2.2 mg/dL (1.6-2.6); Potassium 4.1 mmol/L (3.5-5.1); Sodium Level 138 mmol/L (136-145)
[2022-03-21 06:16] LABS: Partial Thromboplast Time 64.7 Seconds (24.1-36.2)
[2022-03-21] MEDS: Insulin Lispro 100 UNIT/ML INSULN.PEN SC ×3 (07:41→16:35)
[2022-03-21 09:26] LABS: Bedside Glucose 156 mg/dL (74-106)
[2022-03-21] MEDS: dilTIAZem CD 120 MG Capsule PO ×2 (09:58→21:22)
[2022-03-21] MEDS: Furosemide 40 MG/4 ML Vial IV (09:59)
[2022-03-21] MEDS: 0.9% Saline Lock 10 ML Syringe IV (09:59)
[2022-03-21 10:37] LABS: Prothrombin Time (Protime)PT. 13.1 SECONDS (11.7-14.9)
--- NOTE | 2022-03-21 10:54 | PN.RENAL_ITS ---
Subjective Subjective Following for AIME on CKD. The patient is resistant to the idea of starting dialysis. He denies chest pain or shortness of breath at rest. He still has significant edema of the lower extremities. There is no nausea or vomiting. Objective Data Objective Data Vital Signs: Vital Signs Temp Pulse Resp BP Pulse Ox O2 Del Method O2 Flow Rate 97.7 F L 85 16 185/91 H 98 Room Air 2 03/21/22 09:54 03/21/22 09:54 03/21/22 09:54 03/21/22 09:54 03/21/22 09:54 03/21/22 09:54 03/16/22 12:58 Oxygen Flow Rate (L/min) 2 Oxygen Delivery Method Room Air Weight: 89.811 kg Body Mass Index (BMI) 28.4 Intake & Output: Intake and Output for Last 24 Hours 03/19/22 03/20/22 03/21/22 23:59 23:59 23:59 Intake Total 250.00 / 250.00 1164.7 / 1464.7 844.53 / 844.53 Output Total 300 / 300 1000 / 1000 Balance -50.00 / -50.00 1164.7 / 464.7 -155.47 / -155.47 Lab / Micro Data Result Diagrams: 03/21/22 05:15 03/21/22 05:15 Labs: Laboratory Results - last 24 hr 03/20/22 11:20: POC Glucose 250 H 03/20/22 16:36: POC Glucose 142 H 03/20/22 23:02: POC Glucose 184 H 03/21/22 05:15: WBC 4.6, RBC 3.71 L, Hgb 9.8 L, Hct 30.6 L, MCV 82.5, MCH 26.4 L , MCHC 32.0, RDW Std Deviation 43.6, RDW Coeff of Silvia 14.6, Plt Count 247, MPV 10.9, Immature Gran % (Auto) 0.200, Neut % (Auto) 57.0, Lymph % (Auto) 28.1, [place] % (Auto) 9.1, Eos % (Auto) 5.0, Baso % (Auto) 0.6, Absolute Neuts (auto) 2.6, Absolute Lymphs (auto) 1.30, Nucleated RBC % 0 03/21/22 05:15: Sodium 138, Potassium 4.1, Chloride 100, Carbon Dioxide 30.0, Anion Gap 8, BUN 73 H, Creatinine 3.66 H, Estim Creat Clear Calc 21.88, Est GFR (MDRD) Af Amer 22 L, Est GFR (MDRD) Non-Af 18 L, BUN/Creatinine Ratio 19.9, Glucose 203 H, Calcium 8.8, Magnesium 2.2 03/21/22 05:15: APTT 64.7 H 03/21/22 05:15: PT 13.1, INR 1.0 03/21/22 07:37: POC Glucose 156 H Physical Exam Narrative General: Alert and oriented x3 in no apparent distress. HEENT: Normocephalic, atraumatic. Mucous membrane moist without erythema. PERRLA, EOMI. Hearing is intact. Neck: Supple.. Heart: Irregularly irregular S1-S2. No rubs, murmurs or gallops. Lungs: Decreased breath sound at bases bilaterally especially right lower lobe. Abdomen: Normal bowel sound, soft, nontender, no guarding or rebound. Extremities: No clubbing or cyanosis. There is 3+ edema of the lower extremities bilaterally. Assessment & Plan Assessment/Plan (1) AIME (acute kidney injury): PLAN: The patient has been losing kidney function since November 2021. Serum creatinine has increased from baseline of 2.06 mg/dL on 11/10/2021 up to 4.03 mg/dL on 03/18/2022. AIME is due to progression of underlying diabetic kidney disease along with cardiorenal syndrome. Renal function has not improved much in the last 72 hours despite cutting back on Lasix. Moreover, the patient still appears to be volume overloaded. I believe that the patient would be best served by starting dialysis to control both volume and azotemia. Without dialysis, our option is limited as the patient will likely continue to become less responsive to diuretic at home with expected progressive loss of renal function. Moreover, since renal function is borderline, we cannot be overly aggressive with diuresis especially in the ambulatory setting. Treatment options for hypertension is also limited without dialysis at this point (for example, we cannot use medications such as RAAS inhibitors because of propensity for hyperkalemia). The patient will be at high risk for readmissions and for decompensation of heart failure/volume overload as well as solute/electrolyte complications of deteriorating CKD such as hyperkalemia. However, the patient is resolute about not wanting to start dialysis. The refore, I will transition him to oral diuretic today. If there is no significant fluid gain on oral Lasix or decompensation of heart failure in the next 24 hours, he can be discharged from nephrology standpoint. (2) Chronic kidney disease, stage 4 (severe): PLAN: The patient has underlying chronic kidney disease. Serum creatinine was already 2.06 mg/dL in November 2021. He was also found to have significant urine protein during the last admission. Renal function is declining due to poor glycemic and BP control and nonadherence to medications. CKD is due to diabetic kidney disease. (3) Hyperkalemia: PLAN: The patient presented to the hospital with potassium level of 6.0 mmol/L. Hyperkalemia was likely due to AIME on CKD. The patient was not on JETHRO inhibitor/ARB or potassium supplementation prior to admission. Potassium is stable today at 4.1 mmol/L. Will continue to monitor potassium level. (4) Atrial fibrillation with RVR: PLAN: The patient is being seen by cardiology. He is currently on heparin drip. Heart rate is now under control with diltiazem. I did discuss the case with Dr. Strong today. Since the patient does not want to proceed with hemodialysis, he can be started on oral anticoagulation from my standpoint.
--- NOTE | 2022-03-21 11:26 | PN.CARD_ITS ---
Subjective Subjective The patient remains awake and alert. He states he feels better with his volume status overall since coming to the hospital. He denies ongoing chest discomfort or worsening shortness of breath/dyspnea. Objective Data Vital Signs: Vital Signs Temp Pulse Resp BP Pulse Ox O2 Del Method O2 Flow Rate 97.7 F L 85 16 185/91 H 98 Room Air 2 03/21/22 09:54 03/21/22 09:54 03/21/22 09:54 03/21/22 09:54 03/21/22 09:54 03/21/22 09:54 03/16/22 12:58 Oxygen Flow Rate (L/min) 2 Oxygen Delivery Method Room Air Weight: 189 lb 1.6 oz Body Mass Index (BMI) 28.4 Intake & Output: Intake and Output for Last 24 Hours 03/19/22 03/20/22 03/21/22 23:59 23:59 23:59 Intake Total 250.00 / 250.00 1164.7 / 1464.7 844.53 / 844.53 Output Total 300 / 300 1000 / 1000 Balance -50.00 / -50.00 1164.7 / 464.7 -155.47 / -155.47 Lab / Micro Data Result Diagrams: 03/21/22 05:15 03/21/22 05:15 Labs: Laboratory Results - last 24 hr 03/20/22 11:20: POC Glucose 250 H 03/20/22 16:36: POC Glucose 142 H 03/20/22 23:02: POC Glucose 184 H 03/21/22 05:15: WBC 4.6, RBC 3.71 L, Hgb 9.8 L, Hct 30.6 L, MCV 82.5, MCH 26.4 L , MCHC 32.0, RDW Std Deviation 43.6, RDW Coeff of Silvia 14.6, Plt Count 247, MPV 10.9, Immature Gran % (Auto) 0.200, Neut % (Auto) 57.0, Lymph % (Auto) 28.1, [place] % (Auto) 9.1, Eos % (Auto) 5.0, Baso % (Auto) 0.6, Absolute Neuts (auto) 2.6, Absolute Lymphs (auto) 1.30, Nucleated RBC % 0 03/21/22 05:15: Sodium 138, Potassium 4.1, Chloride 100, Carbon Dioxide 30.0, Anion Gap 8, BUN 73 H, Creatinine 3.66 H, Estim Creat Clear Calc 21.88, Est GFR (MDRD) Af Amer 22 L, Est GFR (MDRD) Non-Af 18 L, BUN/Creatinine Ratio 19.9, Glucose 203 H, Calcium 8.8, Magnesium 2.2 03/21/22 05:15: APTT 64.7 H 03/21/22 05:15: PT 13.1, INR 1.0 03/21/22 07:37: POC Glucose 156 H Cardiology Labs/Tests 03/21/22 05:15: WBC 4.6, RBC 3.71 L, Hgb 9.8 L, Hct 30.6 L, MCV 82.5, MCH 26.4 L , MCHC 32.0, Plt Count 247, MPV 10.9, Immature Gran % (Auto) 0.200, Neut % (Auto) 57.0, Lymph % (Auto) 28.1, [place] % (Auto) 9.1, Eos % (Auto) 5.0, Baso % (Auto) 0.6, Absolute Neuts (auto) 2.6, Nucleated RBC % 0 03/21/22 05:15: Sodium 138, Potassium 4.1, Chloride 100, Carbon Dioxide 30.0, Anion Gap 8, BUN 73 H, Creatinine 3.66 H, Est GFR (MDRD) Af Amer 22 L, Est GFR (MDRD) Non-Af 18 L, BUN/Creatinine Ratio 19.9, Glucose 203 H, Calcium 8.8, Magnesium 2.2 03/21/22 05:15: APTT 64.7 H 03/21/22 05:15: PT 13.1, INR 1.0 Rhythm: Sinus rhythm Physical Exam Const alert, oriented x3 and no apparent distress Orientation / Consciousness: awake HEENT normocephalic, head/scalp atraumatic and hearing grossly normal bilaterally Eyes PERRL, EOMs intact bilaterally, conjunctivae normal and no scleral icterus Neck full ROM, supple and no JVD Carotids: normal carotid upstroke Resp normal respiratory effort and clear to auscultation bilaterally Cardio regular rate, regular rhythm, S1 normal heart sound and S2 normal heart sound Heart Sounds: murmur systolic II/ soft mid left sternal border GI normal to inspection, nondistended, normoactive bowel sounds Extremity General Extremity: edema bilateral lower extremity Details: mild Skin no rashes or lesions noted Psych mental status grossly normal Assessment & Plan Assessment/Plan (1) Atrial fibrillation and flutter: PLAN: The patient has been found to have atrial fibrillation with RVR with subsequent conversion to atrial flutter with subsequent conversion to sinus rhythm. The patient has demonstrated subsequent paroxysmal atrial fibrillation. The etiology may be multifactorial based upon a combination of the patient's age, history of hypertension, history of CHF , valvular heart related issues, superimposed upon his other multiple comorbidities. At the present time he has high-sensitivity troponin I levels are negative. His ECG is demonstrated no acute electrocardiographic changes other than the change in his rhythm. His transthoracic echocardiogram has been reviewed. The patient has undergone further evaluation with a pharmacologic stress nuclear imaging study. This appears to be negative at this time. Thus, there are no immediate plans for additional invasive evaluation such as diagnostic cardiac catheterization. At the present time he will continue rate control therapy and anticoagulant therapy. If the patient is not going to proceed with any further invasive evaluation then his IV heparin can be converted to an oral and coagulant which based upon his marked renal imaging. (2) CHF exacerbation: QUALIFIERS: Heart failure type: unspecified Qualified Code(s): I50.9 - Heart failure, unspecified PLAN: The patient states he has a history of CHF . Based upon his objective studies this would be compatible with a heart failure with preserved ejection fraction type CHF. At the moment based upon his symptoms and his objective studies with respect to laboratory studies this may be compatible with an acute on chronic mediated event. His symptoms may also be exacerbated by his atrial dysrhythmia and his diminished renal function/elevated creatinine level. At the moment he is being monitored. He has been treated with diuretic therapy. His BUN/creatinine levels remain elevated. He is being followed by nephrology. The patient states that he will discuss his options with nephrology, however, he states he will continue medical therapy if tolerated, however, currently de clines to proceed with any additional nephrology evaluation or care such as dialysis. (3) Valvular heart disease: PLAN: He does have an element of underlying valvular heart disease based upon his transthoracic echocardiographic findings suggesting both MR and TR. This may be a contributing factor to his atrial dysrhythmia. At the moment he will continue to be monitored. He will continue medical evaluation and care of his other multiple diagnoses/comorbidities. (4) Hyperlipidemia: QUALIFIERS: Hyperlipidemia type: unspecified Qualified Code(s): E78.5 - Hyperlipidemia, unspecified PLAN: His lipid labs were reviewed. They appear to be under reasonably good control at this time. (5) Hypertension: PLAN: He has a history of hypertension. He states that he minimizes the use of medications because of concerns of side effects. (6) AIME (acute kidney injury): PLAN: He does appear to have worsening renal insufficiency. Again his renal insufficiency does impact choices of medications and other procedures. At the moment he is being evaluated by internal medicine and nephrology. His case was discussed with Dr. Adrian of nephrology. At the moment the patient declines proceeding with further evaluation and care with dialysis. Thus he is going to continue medical therapy as best as tolerated. Addt'l Comments The patient's case was discussed and reviewed with the patient, Dr. Ness, and Dr. Adrian. This note was generated using a voice recognition system and there may be incorrect words, spelling or punctuation that were not noted when reviewing the office note prior to saving.
--- NOTE | 2022-03-21 11:42 | PN.HOSP_ITS ---
Subjective Subjective Patient seen and examined. He has no active complaints today. He had an uneventful night, and denies any fever, chills, nausea, vomiting or diarrhea. Patient is adamant that he will never go on dialysis because he had family members who from dialysis. On further inquiry he states that his family members got very edematous and when he got on dialysis. I tried explaining to patient that this is probably members likely passed stone due to a lack of dialysis but he is adamant that he is not going to go on dialysis. Patient also does not want to take any medications because he says medications have side effects and he is worried about how they will interact with his system. I counseled patient that responsibility is to give him the standard of care and best medical judgment but we could not force him to take the medication and would respect his autonomy if he decided he would not follow medical advice but had to understand that he may experience adverse events from not following medical advice. Objective Data Objective Data Vital Signs: Vital Signs Temp Pulse Resp BP Pulse Ox O2 Del Method O2 Flow Rate 97.7 F L 85 16 185/91 H 98 Room Air 2 03/21/22 09:54 03/21/22 09:54 03/21/22 09:54 03/21/22 09:54 03/21/22 09:54 03/21/22 09:54 03/16/22 12:58 Oxygen Flow Rate (L/min) 2 Oxygen Delivery Method Room Air Weight: 189 lb 1.6 oz Body Mass Index (BMI) 28.4 Intake & Output: Intake and Output for Last 24 Hours 03/19/22 03/20/22 03/21/22 23:59 23:59 23:59 Intake Total 250.00 / 250.00 1164.7 / 1464.7 844.53 / 844.53 Output Total 300 / 300 1000 / 1000 Balance -50.00 / -50.00 1164.7 / 464.7 -155.47 / -155.47 Lab / Micro Data Result Diagrams: 03/21/22 05:15 03/21/22 05:15 Labs: Laboratory Results - last 24 hr 03/20/22 11:20: POC Glucose 250 H 03/20/22 16:36: POC Glucose 142 H 03/20/22 23:02: POC Glucose 184 H 03/21/22 05:15: WBC 4.6, RBC 3.71 L, Hgb 9.8 L, Hct 30.6 L, MCV 82.5, MCH 26.4 L , MCHC 32.0, RDW Std Deviation 43.6, RDW Coeff of Silvia 14.6, Plt Count 247, MPV 10.9, Immature Gran % (Auto) 0.200, Neut % (Auto) 57.0, Lymph % (Auto) 28.1, [place] % (Auto) 9.1, Eos % (Auto) 5.0, Baso % (Auto) 0.6, Absolute Neuts (auto) 2.6, Absolute Lymphs (auto) 1.30, Nucleated RBC % 0 03/21/22 05:15: Sodium 138, Potassium 4.1, Chloride 100, Carbon Dioxide 30.0, Anion Gap 8, BUN 73 H, Creatinine 3.66 H, Estim Creat Clear Calc 21.88, Est GFR (MDRD) Af Amer 22 L, Est GFR (MDRD) Non-Af 18 L, BUN/Creatinine Ratio 19.9, Glucose 203 H, Calcium 8.8, Magnesium 2.2 03/21/22 05:15: APTT 64.7 H 03/21/22 05:15: PT 13.1, INR 1.0 03/21/22 07:37: POC Glucose 156 H Physical Exam Const alert, oriented x3 and no apparent distress HEENT normocephalic, head/scalp atraumatic and moist oral mucous membranes Head and Scalp: normocephalic Mouth: oral and palatal mucosa normal Eyes PERRL, EOMs intact bilaterally and conjunctivae normal Neck no lymphadenopathy, supple and no JVD Lymph Lymphatic: no lymphadenopathy noted Resp normal respiratory effort, no retractions, no use of accessory muscles and clear to auscultation bilaterally Auscultation: Negative for wheezes Cardio regular rate, regular rhythm, S1 normal heart sound, S2 normal heart sound, no murmurs, no rub and no gallops Cardio Narrative: afib Rhythm: abnormal rhythm irregularly irregular GI normal to inspection, nondistended, normoactive bowel sounds, soft to palpation, non-tender and non-distended Extremity normal to inspection, full ROM, normal capillary refill and no clubbing, cyanosis or edema General Extremity: clubbing and edema Neuro oriented x3, CN's II-XII intact bilaterally, moves all extremities and no focal motor deficits Sensorium / Orientation: awake and alert Speech: speech normal Motor Exam: strength 5/5 throughout; Negative for general weakness Psych thought process normal and affect normal Appearance: appropriate Assessment & Plan Assessment/Plan (1) Atrial fibrillation with RVR: PLAN: Plan #Afib * now rate controlled * 2D echo: EF of 55%, with moderate concentric LVH and normal LV size, with normal LV sytolic function. Diastolic function indeterminate. RVSP of 25mmhg. * CHADVASC score is 4; patient on heparin drip * cardiology on board * on cardizem 120mg q12 * stress test is negative. * will start coumadin today; will give 10mg x 1 today, and continue bridging with heparin drip until INR is 2-3. INR today is 1. * #Hyperkalemia: resolved. K is 4.3 today. #?? seizure * says he had generalized tremors which was concerning for seizure * EEG ordered and read is pending * says he used to be on keppra * neurology consulted * #Acute on chronic HFpEF * 2D echo as above * lasix drip discontinued due to worsening renal impairment. * on IV lasix 40mg bid * cardiology and nephrology on board * Cardiology on board. * #Type 2 diabetes mellitus * on lantus 18 units qhs. ISS. Accuchecks ACHS * check A1C * last A1C was 13.1 in November 2021. * #AIME on CKD3 * Cr is 3.66 today. * baseline Cr is 1.16 * cannot be hydrated with IVF due to heart failure * nephrology on board. lasix drip discontinued and patient now on IV lasix 40mg bid. being switched to PO lasix * patient absolutely refuses to start dialysis if needed. * * #Hypertension * BP is 185/91. BP remains markedly elevated * IV hydralazine prn * on cardizem * will start on metoprolol 25mg bid * #Hyperlipidemia: on statin DVT prophylaxis: not indicated as he is on heparin drip. Charges/Coding Visit Charges Inpatient E&M: 63996 Subs Hosp L2
[2022-03-21 12:35] LABS: Bedside Glucose 205 mg/dL (74-106)
[2022-03-21] MEDS: Metoprolol Tartrate 25 MG Tablet 12.5 MG PO ×2 (13:05→21:22)
--- NOTE | 2022-03-21 14:18 | NURSING ---
Patient expressed to nursing staff he is now willing to have dialysis if necessary. Dr. Adrian paged to inform at this time.
[2022-03-21 17:00] LABS: Bedside Glucose 191 mg/dL (74-106)
[2022-03-21] MEDS: Furosemide 40 MG Tablet PO (17:33)
[2022-03-21] MEDS: Polyethylene Glycol 3350 17 GM PACKET PO (21:21)
[2022-03-21] MEDS: Insulin Glargine-YFGN 100 UNIT/ML Pen 18 UNIT SC (21:23)
[2022-03-21 21:50] LABS: Bedside Glucose 213 mg/dL (74-106)
[2022-03-21] MEDS: Lacosamide 100 MG Tablet PO (22:22)
[2022-03-22] VITALS (11 sets, daily range): BP systolic 144–179; BP diastolic 75–111; PULSE 73–89; RESP 16–18; TEMP 36.6–36.8; O2SAT 94–95; BMI 26.9
[2022-03-22 05:51] LABS: Absolute Lymphocyte Count 1.43 X10^3/uL (0.83-4.51); Absolute Neutrophil Count 3.5 X10^3/uL (2.0-7.7); Basophil# 0.04 X10^3/uL; Basophil% 0.7 % (0-1); Eosinophil# 0.29 X10^3/uL; Eosinophils% 5.1 % (0-5); Hematocrit 31.8 % (40-54); Hemoglobin 10.2 g/dL (13.0-16.5); Lymphocyte # 1.43 X10^3/ul (0.83-4.51); Lymphocyte % 25.2 % (19-41); Mean Corp Hgb Conc 32.1 g/dL (32-36); Mean Corpuscular Hgb 26.4 pg (27.0-32.0); Mean Corpuscular Volume 82.4 fL (80-94); Mean Platelet Vol. 10.7 fl (6.2-12.0); Monocyte# 0.45 X10^3/uL; Monocyte% 7.9 % (0-10); NRBC Flagged by Analyzer 0 % (0-5); Neutrophil # 3.45 X10^3/uL (2.7-7.7); Neutrophil % 60.7 % (47-70); Platelet Count 258 K/mm3 (150-450); RBC Distribution Width CV 14.7 % (11.6-14.6); RBC Distribution Width SD 44.2 fl (35.1-43.9); Red Blood Count 3.86 M/mm3 (4.6-6.2); White Blood Count 5.7 K/mm3 (4.4-11.0)
[2022-03-22 06:21] LABS: Anion Gap 8 (5-15); BUN 67 mg/dL (7-18); BUN/Creat Ratio 19.7 RATIO (10-20); Calcium,Total 9.5 mg/dL (8.5-10.1); Chloride 99 mmol/L (98-107); EST Glomerular Filtration Rate 20 mL/min (>60); Est Glom Filt Rate - Afr Amer 24 mL/min (>60); Estimated Creatinine Clearance 23.56 ml/min; Glucose 162 mg/dL (74-106); Potassium 4.1 mmol/L (3.5-5.1); Sodium Level 137 mmol/L (136-145)
[2022-03-22 06:51] LABS: Partial Thromboplast Time 78.9 Seconds (24.1-36.2)
--- NOTE | 2022-03-22 07:00 | MRI_ITS ---
STUDY: MRI BRAIN WITHOUT CONTRAST REASON FOR EXAM: Male, 61 years old. seizures TECHNIQUE: Standardized multiplanar fat and water weighted pulse sequences were obtained. COMPARISON: MRI of the brain dated JANUARY 05, 2022. Head CT dated March 17, 2022 FINDINGS: There is mild cerebral atrophy with widening of the extra-axial spaces and ventricular dilatation. There are a limited number of small white matter hyperintensities, distributed throughout the deep white matter tracts of the cerebral hemispheres, consistent with mild chronic white matter ischemic changes. Previously seen small acute infarct with abnormal diffusion weighted signal in the superior aspect of the right frontal and parietal lobes has resolved since the prior study. There is no demonstrated acute infarct or abnormal diffusion weighted signal on the current study. Normal T2* images of the brain without demonstrated susceptibility artifact. There is no demonstrated hemosiderin stain. There is no evidence of hydrocephalus or midline shift or herniation. No extra-axial fluid collection is present. Normal bilateral basal ganglia. Normal thalami. There is no extra-axial fluid accumulation. Normal flow voids within the major intracranial circulation suggesting patency by spin echo criteria. Normal sella turcica, pituitary gland, infundibular stalk, optic chiasm and hypothalamus. Normal tectal plate and pineal gland. Normal midbrain, savanna and medulla. Normal cerebellum. Normal basal cisterns. Normal bilateral temporal bones. Normal bilateral internal auditory canals. No demonstrated orbital abnormality, within the constraints of a routine brain study. Normal visualized paranasal sinuses. Normal calvarium and skull base. Normal visualized soft tissue structures. Normal visualized upper cervical spine. MRI/Brain without Contrast IMPRESSION: 1. Previously seen small acute infarct with abnormal diffusion weighted signal in the superior aspect of the right frontal and parietal lobes has resolved since the prior study. There is no demonstrated acute infarct or abnormal diffusion weighted signal on the current study. Electronically Signed: Moe Anderson MD at 11:42 EDT ,
[2022-03-22] MEDS: Insulin Lispro 100 UNIT/ML INSULN.PEN SC ×3 (08:23→17:09)
[2022-03-22] MEDS: Lacosamide 100 MG Tablet PO ×2 (08:24→21:41)
[2022-03-22] MEDS: Metoprolol Tartrate 25 MG Tablet 12.5 MG PO ×2 (08:24→21:42)
[2022-03-22] MEDS: dilTIAZem CD 120 MG Capsule PO ×2 (08:25→21:42)
[2022-03-22] MEDS: Furosemide 40 MG Tablet PO ×2 (08:25→17:08)
[2022-03-22] MEDS: Polyethylene Glycol 3350 17 GM PACKET PO (08:26)
--- NOTE | 2022-03-22 09:47 | PN.CARD_ITS ---
Subjective Subjective The patient is awake and alert. He denies any ongoing chest discomfort or worsening shortness of breath. He still has an element of lower extremity peripheral pitting edema. Objective Data Vital Signs: Vital Signs Temp Pulse Resp BP Pulse Ox O2 Del Method O2 Flow Rate 97.8 F 78 18 172/96 H 95 Room Air 2 03/22/22 08:12 03/22/22 08:24 03/22/22 08:12 03/22/22 08:24 03/22/22 08:12 03/22/22 08:12 03/16/22 12:58 Oxygen Flow Rate (L/min) 2 Oxygen Delivery Method Room Air Weight: 188 lb 14.978 oz Body Mass Index (BMI) 28.4 Intake & Output: Intake and Output for Last 24 Hours 03/20/22 03/21/22 03/22/22 23:59 23:59 23:59 Intake Total 1164.7 / 1464.7 2053.03 / 2053.03 Output Total 1000 / 1000 Balance 1164.7 / 464.7 1053.03 / 1053.03 Lab / Micro Data Result Diagrams: 03/22/22 04:29 03/22/22 04:29 Labs: Laboratory Results - last 24 hr 03/21/22 05:15: PT 13.1, INR 1.0 03/21/22 11:04: POC Glucose 205 H 03/21/22 16:34: POC Glucose 191 H 03/21/22 21:21: POC Glucose 213 H 03/22/22 04:29: WBC 5.7, RBC 3.86 L, Hgb 10.2 L, Hct 31.8 L, MCV 82.4, MCH 26.4 L, MCHC 32.1, RDW Std Deviation 44.2 H, RDW Coeff of Silvia 14.7 H, Plt Count 258, MPV 10.7, Immature Gran % (Auto) 0.400, Neut % (Auto) 60.7, Lymph % (Auto) 25.2, [place] % (Auto) 7.9, Eos % (Auto) 5.1 H, Baso % (Auto) 0.7, Absolute Neuts (auto) 3.5, Absolute Lymphs (auto) 1.43, Nucleated RBC % 0 03/22/22 04:29: Sodium 137, Potassium 4.1, Chloride 99, Carbon Dioxide 30.0, Anion Gap 8, BUN 67 H, Creatinine 3.40 H, Estim Creat Clear Calc 23.56, Est GFR (MDRD) Af Amer 24 L, Est GFR (MDRD) Non-Af 20 L, BUN/Creatinine Ratio 19.7, Glucose 162 H, Calcium 9.5 03/22/22 06:33: APTT 78.9 H Cardiology Labs/Tests 03/21/22 05:15: PT 13.1, INR 1.0 03/22/22 04:29: WBC 5.7, RBC 3.86 L, Hgb 10.2 L, Hct 31.8 L, MCV 82.4, MCH 26.4 L, MCHC 32.1, Plt Count 258, MPV 10.7, Immature Gran % (Auto) 0.400, Neut % (Auto) 60.7, Lymph % (Auto) 25.2, [place] % (Auto) 7.9, Eos % (Auto) 5.1 H, Baso % (Auto) 0.7, Absolute Neuts (auto) 3.5, Nucleated RBC % 0 03/22/22 04:29: Sodium 137, Potassium 4.1, Chloride 99, Carbon Dioxide 30.0, Ani on Gap 8, BUN 67 H, Creatinine 3.40 H, Est GFR (MDRD) Af Amer 24 L, Est GFR (MDRD) Non-Af 20 L, BUN/Creatinine Ratio 19.7, Glucose 162 H, Calcium 9.5 03/22/22 06:33: APTT 78.9 H Rhythm: Sinus rhythm Physical Exam Const alert, oriented x3 and no apparent distress Orientation / Consciousness: awake HEENT normocephalic, head/scalp atraumatic and hearing grossly normal bilaterally Eyes PERRL, EOMs intact bilaterally, conjunctivae normal and no scleral icterus Neck full ROM, supple and no JVD Carotids: normal carotid upstroke Resp normal respiratory effort and clear to auscultation bilaterally Cardio regular rate, regular rhythm, S1 normal heart sound and S2 normal heart sound Heart Sounds: murmur systolic II/ soft mid left sternal border GI normal to inspection, nondistended, normoactive bowel sounds Extremity General Extremity: edema bilateral lower extremity Details: mild Skin no rashes or lesions noted Psych mental status grossly normal Assessment & Plan Assessment/Plan (1) Atrial fibrillation and flutter: PLAN: The patient has been found to have atrial fibrillation with RVR with subsequent conversion to atrial flutter with subsequent conversion to sinus rhythm. The patient has demonstrated subsequent paroxysmal atrial fibrillation. The etiology may be multifactorial based upon a combination of the patient's age, history of hypertension, history of CHF , valvular heart related issues, superimposed upon his other multiple comorbidities. At the present time he has high-sensitivity troponin I levels are negative. His ECG is demonstrated no acute electrocardiographic changes other than the change in his rhythm. His transthoracic echocardiogram has been reviewed. The patient has undergone further evaluation with a pharmacologic stress nuclear imaging study. This appears to be negative at this time. Thus, there are no immediate plans for additional invasive evaluation such as diagnostic cardiac catheterization. At the present time he will continue rate control therapy and anticoagulant therapy. The patient now states that he is going to proceed with hemodialysis. Thus his oral anticoagulants have been placed on hold pending the need for further evaluation and the placement of a dialysis catheter. (2) CHF exacerbation: QUALIFIERS: Heart failure type: unspecified Qualified Code(s): I50.9 - Heart failure, unspecified PLAN: The patient states he has a history of CHF . Based upon his objective studies this would be compatible with a heart failure with preserved ejection fraction type CHF. At the moment based upon his symptoms and his objective studies with respect to laboratory studies this may be compatible with an acute on chronic mediated event. His symptoms may also be exacerbated by his atrial dysrhythmia and his diminished renal function/elevated creatinine level. At the moment he is being monitored. He has been treated with diuretic therapy. His BUN/creatinine levels remain elevated. He is being followed by nephrology. The patient states status post further discussion that he has decided to proceed with dialysis. (3) Valvular heart disease: PLAN: He does have an element of underlying valvular heart disease based upon his transthoracic echocardiographic findings suggesting both MR and TR. This may be a contributing factor to his atrial dysrhythmia. At the moment he will continue to be monitored. He will continue medical evaluation and care of his other multiple diagnoses/comorbidities. (4) Hyperlipidemia: QUALIFIERS: Hyperlipidemia type: unspecified Qualified Code(s): E78.5 - Hyperlipidemia, unspecified PLAN: His lipid labs were reviewed. They appear to be under reasonably good control at this time. (5) Hypertension: PLAN: He has a history of hypertension. He states that he minimizes the use of medications because of concerns of side effects. (6) AIME (acute kidney injury): PLAN: He does appear to have worsening renal insufficiency. Again his renal insufficiency does impact choices of medications and other procedures. At the moment he is being evaluated by internal medicine and nephrology. His case was discussed with Dr. Adrian of nephrology. Compared to yesterday the patient now states that he is going to proceed with dialysis therapy. Addt'l Comments This note was generated using a voice recognition system and there may be incorrect words, spelling or punctuation that were not noted when reviewing the office note prior to saving.
--- NOTE | 2022-03-22 10:14 | PN.HOSP_ITS ---
Documented by User: Yen Reno NP-C 03/22/22 10:37 Subjective Subjective Patient seen and examined. Patient lying in bed no distress noted. Patient now amenable to dialysis. Informed patient that Dana ESQUIVEL with nephrology will see him today to discuss differences between peritoneal dialysis and hemodialysis and answered any questions that he may have in regards to dialysis. Objective Data Objective Data Vital Signs: Vital Signs Temp Pulse Resp BP Pulse Ox O2 Del Method O2 Flow Rate 97.8 F 78 18 172/96 H 95 Room Air 2 03/22/22 08:12 03/22/22 08:24 03/22/22 08:12 03/22/22 08:24 03/22/22 08:12 03/22/22 08:12 03/16/22 12:58 Oxygen Flow Rate (L/min) 2 Oxygen Delivery Method Room Air Weight: 188 lb 14.978 oz Body Mass Index (BMI) 28.4 Intake & Output: Intake and Output for Last 24 Hours 03/20/22 03/21/22 03/22/22 23:59 23:59 23:59 Intake Total 1164.7 / 1464.7 2053.03 / 2053.03 154.7 / 154.7 Output Total 1000 / 1000 Balance 1164.7 / 464.7 1053.03 / 1053.03 154.7 / 154.7 Lab / Micro Data Result Diagrams: 03/22/22 04:29 03/22/22 04:29 Labs: Laboratory Results - last 24 hr 03/21/22 05:15: PT 13.1, INR 1.0 03/21/22 11:04: POC Glucose 205 H 03/21/22 16:34: POC Glucose 191 H 03/21/22 21:21: POC Glucose 213 H 03/22/22 04:29: WBC 5.7, RBC 3.86 L, Hgb 10.2 L, Hct 31.8 L, MCV 82.4, MCH 26.4 L, MCHC 32.1, RDW Std Deviation 44.2 H, RDW Coeff of Silvia 14.7 H, Plt Count 258, MPV 10.7, Immature Gran % (Auto) 0.400, Neut % (Auto) 60.7, Lymph % (Auto) 25.2, [place] % (Auto) 7.9, Eos % (Auto) 5.1 H, Baso % (Auto) 0.7, Absolute Neuts (auto) 3.5, Absolute Lymphs (auto) 1.43, Nucleated RBC % 0 03/22/22 04:29: Sodium 137, Potassium 4.1, Chloride 99, Carbon Dioxide 30.0, Anion Gap 8, BUN 67 H, Creatinine 3.40 H, Estim Creat Clear Calc 23.56, Est GFR (MDRD) Af Amer 24 L, Est GFR (MDRD) Non-Af 20 L, BUN/Creatinine Ratio 19.7, Glucose 162 H, Calcium 9.5 03/22/22 06:33: APTT 78.9 H Physical Exam Const alert, oriented x3 and no apparent distress HEENT head/scalp atraumatic and moist oral mucous membranes Head and Scalp: normocephalic Eyes conjunctivae normal and no scleral icterus Neck supple General: trachea midline Resp normal respiratory effort Auscultation: crackles bilateral throughout Cardio regular rate, regular rhythm, S1 normal heart sound and S2 normal heart sound GI normal to inspection, nondistended, normoactive bowel sounds, soft to palpation and non-tender Extremity normal to inspection, full ROM and no clubbing, cyanosis or edema Skin no rashes or lesions noted and no wounds Neuro oriented x3 and moves all extremities Psych affect normal Assessment & Plan Assessment/Plan (1) Chronic kidney disease, stage 4 (severe): (2) Hyperkalemia: PLAN: Plan 1. Atrial fibrillation -Rate controlled, continue Cardizem 120 mg twice daily -Stress test negative -Cardiology following -continue heparin drip until determination is made regarding whether patient will start dialysis. With patient needs dialysis catheter we will stop heparin and initiate oral anticoagulation following procedure. If patient does not need dialysis catheter will initiate Coumadin and continue heparin until INR is 2-3 -EF 55% 2. Questionable seizure -EEG read as normal -Continue Vimpat -SOC neurology following, recommend MRI which is ordered 3. Acute on chronic heart failure with preserved EF -EF 55% -Cardiology and nephrology following -Continue p.o. Lasix twice a day 4. Diabetes mellitus type 2 -ACH S blood sugars with sliding scale insulin -Continue Lantus -Hemoglobin A1c 7.8 5. Chronic kidney disease stage IV -Nephrology following -Patient now amenable to dialysis, discussed with Dana ESQUIVEL with nephrology. Will make determination whether patient needs started on dialysis -Creatinine 3.4 today DVT prophylaxis-not indicated, heparin drip This patient was seen by Yen Reno NP-C under the supervision of 15 minutes spent in clinical coordination of patient's plan of care. Documented by User: Dr. Leatha Starks MD 03/22/22 14:40 Objective Data Lab / Micro Data Result Diagrams: 03/22/22 04:29 03/22/22 04:29 Assessment & Plan Assessment/Plan (1) Chronic kidney disease, stage 4 (severe): (2) Hyperkalemia: Charges/Coding Addendum Addendum: This patient was seen in conjunction with Eric Reno NP. I have independently interviewed and examined the patient and reviewed pertinent historical, laboratory, and other data. I have reviewed her note and concur with her documentation Patient was seen and examined. He denied any new complaints. No acute events overnight. MRI of the brain showed no acute infarct. Physical Exam: Gen: Comfortable, not pale, not jaundiced CVS:HS I +II, regular, no murmurs RESP: Diminished at lung bases GI: BS present and normal, soft, nontender, no palpable organs EXT: Bilateral pedal edema +1 ASSESSMENT: 1. CKD stage IV/ESRD 2. A. fib with RVR 3. Probable seizure 4. Acute exacerbation of heart failure preserved EF 5. Type II DM Plan: Nephrology to discuss about dialysis catheter Continue on Cardizem, Lasix, metoprolol Continue on current Lantus Time spent coordinating all aspects of patient's care, discussing with nephrolog y and nursin minutes Visit Charges Inpatient E&M: 87544 Subs Hosp L2
[2022-03-22 10:21] LABS: Bedside Glucose 146 mg/dL (74-106)
[2022-03-22 12:15] LABS: Bedside Glucose 156 mg/dL (74-106)
--- NOTE | 2022-03-22 14:44 | PN.RENAL_ITS ---
Subjective Subjective Resting in bed, denies any complaints. Denies any shortness of breath. Objective Data Objective Data Vital Signs: Vital Signs Temp Pulse Resp BP Pulse Ox O2 Del Method O2 Flow Rate 97.8 F 78 18 172/96 H 95 Room Air 2 03/22/22 08:12 03/22/22 08:24 03/22/22 08:12 03/22/22 08:24 03/22/22 08:12 03/22/22 08:12 03/16/22 12:58 Oxygen Flow Rate (L/min) 2 Oxygen Delivery Method Room Air Weight: 85.7 kg Body Mass Index (BMI) 28.4 Intake & Output: Intake and Output for Last 24 Hours 03/20/22 03/21/22 03/22/22 23:59 23:59 23:59 Intake Total 1164.7 / 1464.7 2053.03 / 2053.03 154.7 / 154.7 Output Total 1000 / 1000 Balance 1164.7 / 464.7 1053.03 / 1053.03 154.7 / 154.7 Lab / Micro Data Result Diagrams: 03/22/22 04:29 03/22/22 04:29 Labs: Laboratory Results - last 24 hr 03/21/22 16:34: POC Glucose 191 H 03/21/22 21:21: POC Glucose 213 H 03/22/22 04:29: WBC 5.7, RBC 3.86 L, Hgb 10.2 L, Hct 31.8 L, MCV 82.4, MCH 26.4 L, MCHC 32.1, RDW Std Deviation 44.2 H, RDW Coeff of Silvia 14.7 H, Plt Count 258, MPV 10.7, Immature Gran % (Auto) 0.400, Neut % (Auto) 60.7, Lymph % (Auto) 25.2, [place] % (Auto) 7.9, Eos % (Auto) 5.1 H, Baso % (Auto) 0.7, Absolute Neuts (auto) 3.5, Absolute Lymphs (auto) 1.43, Nucleated RBC % 0 03/22/22 04:29: Sodium 137, Potassium 4.1, Chloride 99, Carbon Dioxide 30.0, Anion Gap 8, BUN 67 H, Creatinine 3.40 H, Estim Creat Clear Calc 23.56, Est GFR (MDRD) Af Amer 24 L, Est GFR (MDRD) Non-Af 20 L, BUN/Creatinine Ratio 19.7, Glucose 162 H, Calcium 9.5 03/22/22 06:33: APTT 78.9 H 03/22/22 08:10: POC Glucose 146 H 03/22/22 11:53: POC Glucose 156 H Radiography Diagnostic Testing: Radiology Impression Brain MRI 03/22/22 07:00 IMPRESSION: 1. Previously seen small acute infarct with abnormal diffusion weighted signal in the superior aspect of the right frontal and parietal lobes has resolved since the prior study. There is no demonstrated acute infarct or abnormal diffusion weighted signal on the current study. Electronically Signed: Moe Anderson MD at 11:42 EDT , Physical Exam Narrative General: Alert and oriented x3 in no apparent distress. HEENT: Normocephalic, atraumatic. Mucous membrane moist without erythema. PERRLA, EOMI. Hearing is intact. Neck: Supple. Heart: Irregularly irregular S1-S2. No rubs, murmurs or gallops. Lungs: Decreased breath sound at bases bilaterally Abdomen: Normal bowel sounds, soft, nontender, no guarding or rebound. Extremities: 3+ edema of the lower extremities bilaterally. Assessment & Plan Assessment/Plan (1) AIME (acute kidney injury): PLAN: The patient has been losing kidney function since November 2021. Serum creatinine has increased from baseline of 2.06 mg/dL on 11/10/2021 up to 4.03 mg/dL on 03/18/2022. AIME is due to progression of underlying diabetic kidney disease along with cardiorenal syndrome. Renal function has not improved much despite cutting back on Lasix, and patient is volume overloaded. Patient states baseline weight ~165lbs. Current wt ~190lbs. The patient would be best served by starting dialysis to control both volume and azotemia. Without dialysis, our option is limited as the patient will likely continue to become less responsive to diuretic at home with expected progressive loss of renal function. This was explained to patient today. Moreover, since renal function is borderline, we cannot be overly aggressive with diuresis especially in the ambulatory setting. Treatment options for hypertension is also limited without dialysis at this point (for example, we cannot use medications such as RAAS inhibitors because of propensity for hyperkalemia). The patient will be at high risk for readmissions and for decompensation of heart failure/volume overload as well as solute/electrolyte complications of deteriorating CKD such as hyperkalemia. Today I had a long discussion with patient regarding progressive nature of his CKD, fluid overload, history of heart failure, etc. Patient had many questions regarding INFORMATION TECHNOLOGY AUDITOR. He had an aunt who was on dialysis who about 2 weeks ago and therefore is familiar with hemodialysis. His mother was also on hemodialysis. Patient today states that he is in agreement for moving forward with INFORMATION TECHNOLOGY AUDITOR. He is aware that hemodialysis likely will be permanent, 3 days nathaly pierce. Risks of hemodialysis versus not doing INFORMATION TECHNOLOGY AUDITOR explained to patient. He is in agreement with INFORMATION TECHNOLOGY AUDITOR. Consult surgeon for placement of tunneled HD catheter. We will plan for dialysis after catheter placed. Arrange for dialysis at [facility], Tuesday. Followed by Dr. Sandoval (2) Chronic kidney disease, stage 4 (severe): PLAN: The patient has underlying chronic kidney disease. Serum creatinine was already 2.06 mg/dL in November 2021. He was also found to have significant urine protein during the last admission. Renal function is declining due to poor glycemic and BP control and nonadherence to medications. CKD is due to diabetic kidney disease. (3) Hyperkalemia: PLAN: The patient presented to the hospital with potassium level of 6.0 mmol/L. Hyperkalemia was likely due to AIME on CKD. The patient was not on JETHRO inhibitor/ARB or potassium supplementation prior to admission. (4) Atrial fibrillation with RVR: PLAN: The patient is being seen by cardiology. He is currently on heparin drip. Heart rate is now under control with diltiazem.
--- NOTE | 2022-03-22 15:07 | CASEMGMT ---
Per admission question assessment patient said he has a healthcare Power of Editorial Cartoonist on file at [facility]. SW met with patient. Introduced self and role at [facility]. Patient said he does not have a Healthcare Power of Editorial Cartoonist, but he wants his to be his Healthcare Power of Editorial Cartoonist. SW asked patient if he would like to complete documents and patient was open to this. SW told patient SW will check back and assist him with completing the documents. Angie ELIAS
--- NOTE | 2022-03-22 15:11 | CASEMGMT ---
Per admission question assessment patient said he has a healthcare Power of Swimming Pool Installer on file at [facility]. SW met with patient. Introduced self and role at [facility]. Patient said he does not have a Healthcare Power of Swimming Pool Installer, but he wants his to be his Healthcare Power of Swimming Pool Installer. SW asked patient if he would like to complete documents and patient was open to this. SW told patient SW will check back and assist him with completing the documents. Angie ELIAS
[2022-03-22 17:16] LABS: Bedside Glucose 141 mg/dL (74-106)
[2022-03-22] MEDS: HEPARIN/D5w 25,000 UNITS 25,000 UNITS/250 ML IV.SOLN. 14 UNITS CONT INF (20:13)
[2022-03-22] MEDS: Insulin Glargine-YFGN 100 UNIT/ML Pen 18 UNIT SC (20:51)
[2022-03-22 21:15] LABS: Bedside Glucose 138 mg/dL (74-106)
[2022-03-23] VITALS (16 sets, daily range): BP systolic 150–179; BP diastolic 76–100; PULSE 75–83; RESP 16–20; TEMP 36.3–37.3; O2SAT 92–98
[2022-03-23 05:45] LABS: Absolute Lymphocyte Count 1.64 X10^3/uL (0.83-4.51); Absolute Neutrophil Count 3.2 X10^3/uL (2.0-7.7); Basophil# 0.04 X10^3/uL; Basophil% 0.7 % (0-1); Eosinophil# 0.21 X10^3/uL; Eosinophils% 3.8 % (0-5); Hematocrit 30.9 % (40-54); Hemoglobin 9.8 g/dL (13.0-16.5); Lymphocyte # 1.64 X10^3/ul (0.83-4.51); Lymphocyte % 29.3 % (19-41); Mean Corp Hgb Conc 31.7 g/dL (32-36); Mean Corpuscular Hgb 26.6 pg (27.0-32.0); Mean Platelet Vol. 10.2 fl (6.2-12.0); Monocyte# 0.48 X10^3/uL; Monocyte% 8.6 % (0-10); NRBC Flagged by Analyzer 0 % (0-5); Neutrophil # 3.21 X10^3/uL (2.7-7.7); Neutrophil % 57.2 % (47-70); POSITIVE MORPHOLOGY YES; Platelet Count 236 K/mm3 (150-450); RBC Distribution Width CV 14.6 % (11.6-14.6); RBC Distribution Width SD 45.2 fl (35.1-43.9); Red Blood Count 3.68 M/mm3 (4.6-6.2); White Blood Count 5.6 K/mm3 (4.4-11.0)
[2022-03-23 05:52] LABS: Differential Indicated SCAN CRITERIA MET
[2022-03-23 06:07] LABS: Partial Thromboplast Time 75.2 Seconds (24.1-36.2)
[2022-03-23 06:10] LABS: Anion Gap 6 (5-15); BUN 66 mg/dL (7-18); BUN/Creat Ratio 19.5 RATIO (10-20); Calcium,Total 8.9 mg/dL (8.5-10.1); Chloride 102 mmol/L (98-107); Creatinine, Serum 3.39 mg/dL (0.70-1.30); EST Glomerular Filtration Rate 20 mL/min (>60); Est Glom Filt Rate - Afr Amer 24 mL/min (>60); Estimated Creatinine Clearance 23.63 ml/min; Glucose 136 mg/dL (74-106); Potassium 4.3 mmol/L (3.5-5.1); Sodium Level 139 mmol/L (136-145)
[2022-03-23 06:22] LABS: Differential Comment SCANNED
--- NOTE | 2022-03-23 06:50 | CON.PCM.SX_ITS ---
Assessment & Plan Assessment/Plan (1) Chronic kidney disease, stage 4 (severe): PLAN: Patient has chronic kidney disease requiring dialysis at this point. I discussed right-sided tunneled chest dialysis catheter placement with the patie nt. I discussed the risks including but not limited to bleeding, infection, pneumothorax, DVT. Patient understands the risks and is willing to proceed. I will hold his heparin at 9 AM. Plan for placement this afternoon. Patient is NPO. COVID test pending. Ventura Rutledge MD Pager: [facility] [address] [place] [address] Outpatient Pavilion, [address] [place] [address] Office: HPI Consult Data Date of Consult: 03/23/22 HPI Narrative HPI Narrative: JAMES RICO, is a 61 M who has chronic kidney disease and requires dialysis. I was consulted for dialysis catheter placement. [facility] Medical History Acute and chronic respiratory failure with hypoxia Acute hyperglycemia Benign essential hypertension Brain mass CHF (congestive heart failure) CHF (congestive heart failure) Diabetes HTN (hypertension) Hyperglycemia Hypertensive urgency Peripheral neuropathy Pneumonia due to COVID-19 virus Seizure Seizures Smoker Stroke-like symptom TIA (transient ischemic attack) Type 2 diabetes mellitus Home Medications furosemide 40 mg tablet (Lasix) 20 mg PO DAILY 03/16/22 [History Last Taken Unknown] insulin glargine 100 unit/mL subcutaneous solution (Lantus U-100 Insulin) 18 unit subcut QPM 03/16/22 [History Last Taken Unknown] insulin lispro 100 unit/mL subcutaneous pen (Humalog KwikPen (U-100) Insulin) 5 unit subcut TID 03/16/22 [History Last Taken Unknown] Allergy/AdvReac Type Severity Reaction Status Date / Time hydrocodone bitartrate AdvReac Mild HYPER Verified 01/04/22 18:12 [From Vicodin] lisinopril AdvReac Other Verified 01/04/22 18:12 oxycodone AdvReac Other Verified 03/16/22 00:52 Family History Other COPD (chronic obstructive pulmonary disease) Heart disease Surgical History Status post foot surgery Social History household members: spouse and children number of children: 3 current occupational status: disabled Smoking Status: Never smoker Smokeless tobacco user: chewing tobacco alcohol intake: never substance use type: does not use ROS Constitutional Constitutional: Denies anorexia or fatigue ENT HEENT: Denies abnormal hearing Cardiovascular Cardiovascular: Denies chest pain Respiratory/Chest Respiratory/Chest: Denies cough or dyspnea Gastrointestinal Gastrointestinal: Denies abdominal pain Genitourinary Genitourinary: Denies change in urinary stream Musculoskeletal Musculoskeletal: Denies abnormal gait Integumentary Integumentary: Denies new lesions Neurologic Neurologic: Denies abnormal gait Psychiatric Psychiatric: Denies anxiety Endocrine Endocrinology: Denies flushing Physical Exam Const alert and oriented x3 HEENT normocephalic Eyes PERRL Resp normal respiratory effort Cardio Rate: regular rate Rhythm: regular rhythm Lab / Micro Data Result Diagrams: 03/23/22 04:15 03/23/22 04:15 Labs: Laboratory Results - last 24 hr 03/22/22 06:33: APTT 78.9 H 03/22/22 08:10: POC Glucose 146 H 03/22/22 11:53: POC Glucose 156 H 03/22/22 15:57: POC Glucose 141 H 03/22/22 20:50: POC Glucose 138 H 03/23/22 04:15: WBC 5.6, RBC 3.68 L, Hgb 9.8 L, Hct 30.9 L, MCV 84.0, MCH 26.6 L , MCHC 31.7 L, RDW Std Deviation 45.2 H, RDW Coeff of Silvia 14.6, Plt Count 236, MPV 10.2, Immature Gran % (Auto) 0.400, Neut % (Auto) 57.2, Lymph % (Auto) 29.3, [place] % (Auto) 8.6, Eos % (Auto) 3.8, Baso % (Auto) 0.7, Absolute Neuts (auto) 3.2, Absolute Lymphs (auto) 1.64, Nucleated RBC % 0, Differential Comment SCANNED 03/23/22 04:15: Sodium 139, Potassium 4.3, Chloride 102, Carbon Dioxide 31.0, Anion Gap 6, BUN 66 H, Creatinine 3.39 H, Estim Creat Clear Calc 23.63, Est GFR (MDRD) Af Amer 24 L, Est GFR (MDRD) Non-Af 20 L, BUN/Creatinine Ratio 19.5, Glucose 136 H, Calcium 8.9 03/23/22 04:15: APTT 75.2 H Radiology Impression Brain MRI 03/22/22 07:00 IMPRESSION: 1. Previously seen small acute infarct with abnormal diffusion weighted signal in the superior aspect of the right frontal and parietal lobes has resolved since the prior study. There is no demonstrated acute infarct or abnormal diffusion weighted signal on the current study. Electronically Signed: Moe Anderson MD at 11:42 EDT ,
[2022-03-23 08:25] LABS: Hepatitis B Surface Antigen Non-Reactive (Nonreactive)
--- NOTE | 2022-03-23 09:10 | PN.HOSP_ITS ---
Documented by User: LAVELLE Thayer 03/23/22 09:25 Subjective Subjective Patient seen and examined. Patient lying in bed asleep upon entry into room. Patient awakened and discussed with patient plan of care check for today which is dialysis catheter placement and subsequent dialysis. Patient is agreeable and voiced understanding. Objective Data Objective Data Vital Signs: Vital Signs Temp Pulse Resp BP Pulse Ox O2 Del Method O2 Flow Rate 97.9 F 85 16 116/70 98 Room Air 2 03/23/22 08:23 03/23/22 08:23 03/23/22 08:23 03/23/22 08:23 03/23/22 08:23 03/23/22 08:23 03/16/22 12:58 Oxygen Flow Rate (L/min) 2 Oxygen Delivery Method Room Air Weight: 187 lb 9.814 oz Body Mass Index (BMI) 26.9 Intake & Output: Intake and Output for Last 24 Hours 03/21/22 03/22/22 03/23/22 23:59 23:59 23:59 Intake Total 2053.03 / 2053.03 790.0 / 790.0 Output Total 1000 / 1000 Balance 1053.03 / 1053.03 790.0 / 790.0 Lab / Micro Data Result Diagrams: 03/23/22 04:15 03/23/22 04:15 Labs: Laboratory Results - last 24 hr 03/22/22 08:10: POC Glucose 146 H 03/22/22 11:53: POC Glucose 156 H 03/22/22 15:57: POC Glucose 141 H 03/22/22 20:50: POC Glucose 138 H 03/23/22 04:15: WBC 5.6, RBC 3.68 L, Hgb 9.8 L, Hct 30.9 L, MCV 84.0, MCH 26.6 L , MCHC 31.7 L, RDW Std Deviation 45.2 H, RDW Coeff of Silvia 14.6, Plt Count 236, MPV 10.2, Immature Gran % (Auto) 0.400, Neut % (Auto) 57.2, Lymph % (Auto) 29.3, [place] % (Auto) 8.6, Eos % (Auto) 3.8, Baso % (Auto) 0.7, Absolute Neuts (auto) 3.2, Absolute Lymphs (auto) 1.64, Nucleated RBC % 0, Differential Comment SCANNED 03/23/22 04:15: Sodium 139, Potassium 4.3, Chloride 102, Carbon Dioxide 31.0, Anion Gap 6, BUN 66 H, Creatinine 3.39 H, Estim Creat Clear Calc 23.63, Est GFR (MDRD) Af Amer 24 L, Est GFR (MDRD) Non-Af 20 L, BUN/Creatinine Ratio 19.5, Glucose 136 H, Calcium 8.9 03/23/22 04:15: APTT 75.2 H 03/23/22 04:15: Hep Bs Antigen Non-Reactive Micro: Microbiology 03/23/22 06:40 Nasal Secretion SARS-CoV-2 Antigen (Rapid) - Final Radiography Diagnostic Testing: Radiology Impression Brain MRI 03/22/22 07:00 IMPRESSION: 1. Previously seen small acute infarct with abnormal diffusion weighted signal in the superior aspect of the right frontal and parietal lobes has resolved since the prior study. There is no demonstrated acute infarct or abnormal diffusion weighted signal on the current study. Electronically Signed: Moe Anderson MD at 11:42 EDT Reading Location ID and State: [facility] / [place] , Service support , Physical Exam Const alert, oriented x3 and no apparent distress HEENT normocephalic, head/scalp atraumatic and moist oral mucous membranes Eyes conjunctivae normal and no scleral icterus Neck supple General: trachea midline Resp normal respiratory effort and clear to auscultation bilaterally Cardio regular rate, regular rhythm, S1 normal heart sound and S2 normal heart sound GI normal to inspection, nondistended, normoactive bowel sounds, soft to palpation and non-tender Extremity normal to inspection and full ROM Skin no rashes or lesions noted and no wounds Neuro oriented x3, moves all extremities and no focal motor deficits Sensorium / Orientation: awake and alert Speech: speech normal Psych affect normal Appearance: appropriate Assessment & Plan Assessment/Plan (1) Chronic kidney disease, stage 4 (severe): (2) Hyperkalemia: PLAN: Plan 1. Atrial fibrillation -Rate controlled, continue Cardizem 120 mg twice daily -Stress test negative -Cardiology following -Heparin on hold for dialysis catheter placement. 2. Questionable seizure -EEG read as normal -Continue Vimpat -SOC neurology following -MRI negative for new acute findings 3. Acute on chronic heart failure with preserved EF -EF 55% -Cardiology and nephrology following -Continue p.o. Lasix twice a day 4. Diabetes mellitus type 2 -ACH S blood sugars with sliding scale insulin -Continue Lantus -Hemoglobin A1c 7.8 5. Chronic kidney disease stage IV -Patient going for dialysis catheter placement with Dr. Rutledge today -Nephrology following -Creatinine 3.39 today DVT prophylaxis-not indicated, heparin drip This patient was seen by Yen Reno NP-C under the supervision of 12 minutes spent in clinical coordination of patient's plan of care. Documented by User: Dr. Leatha Starks MD 03/23/22 13:36 Objective Data Lab / Micro Data Result Diagrams: 03/23/22 04:15 03/23/22 04:15 Assessment & Plan Assessment/Plan (1) Chronic kidney disease, stage 4 (severe): (2) Hyperkalemia: Charges/Coding Addendum Addendum: This patient was seen in conjunction with Eric Reno NP.? I have independently interviewed and examined the patient and reviewed pertinent historical, laboratory, and other data. I have reviewed her note and concur with her documentation Patient was seen and examined.? No acute events overnight. Going for dialysis catheter today Physical Exam: Gen: Comfortable, not pale, not jaundiced CVS:HS I +II, regular, no murmurs RESP: Diminished at lung bases GI: BS present and normal, soft, nontender, no palpable organs EXT: Bilateral pedal edema +1 ASSESSMENT: 1.? CKD stage IV/ESRD 2.? A. fib with RVR 3.? Probable seizure 4.? Acute exacerbation of heart failure preserved EF 5.? Type II DM Plan: Dialysis catheter and possible dialysis today Continue on Cardizem, Lasix, metoprolol Continue on current Lantus Time spent coordinating all aspects of patient's care, discussing with nephrology and nursin minutes Visit Charges Inpatient E&M: 15927 Subs Hosp L2
[2022-03-23] MEDS: Metoprolol Tartrate 25 MG Tablet 12.5 MG PO ×2 (09:18→21:39)
[2022-03-23] MEDS: Furosemide 40 MG Tablet PO ×2 (09:18→18:03)
[2022-03-23] MEDS: dilTIAZem CD 120 MG Capsule PO ×2 (09:18→21:34)
[2022-03-23] MEDS: Lacosamide 100 MG Tablet PO ×2 (09:18→21:34)
[2022-03-23 09:40] LABS: Bedside Glucose 136 mg/dL (74-106)
--- NOTE | 2022-03-23 09:57 | CASEMGMT ---
Addendum entered by Cahty Ibarra 03/23/22 11:44: [facility] portal updated with ESRD. Aspen MARTINEZ CM Addendum entered by Cathy Ibarra 03/23/22 11:41: Pt provided schedule letter with 1050 chair time MWF and is aware that 1st date of OP HD will be 03/26/22 and he will need a ride that day. Pt voices no further questions/concerns/needs at this time. Per nephro, pt now ESRD and updated note sent to [facility] admissions. Aspen MARTINEZ CM Addendum entered by Cathy Ibarra 03/23/22 10:45: Per Mendez at [facility], pt will have MWF 1050 chair time. CM to follow for med clearance. Aspen MARTINEZ CM Original Note: Hep B result faxed to [facility] admissions. This RN CM received call from Vianey at [facility] admissions requesting call back, ext [phone] and message left for her at this time. Schedule letter received from admissions with 1st shift chair time and 2nd shift time had been requested. Call to Mendez at [facility] and he states they will have a 2nd shift time for pt and will call this RN CM back once obtained. OP notes to be faxed once obtained. CM to follow. Aspen MARTINEZ CM
--- NOTE | 2022-03-23 10:53 | PN.RENAL_ITS ---
Subjective Subjective Resting quietly, no complaints. No overnight events. Objective Data Objective Data Vital Signs: Vital Signs Temp Pulse Resp BP Pulse Ox O2 Del Method O2 Flow Rate 98.4 F 82 18 161/90 H 92 Room Air 2 03/23/22 09:20 03/23/22 09:20 03/23/22 09:20 03/23/22 09:20 03/23/22 09:20 03/23/22 09:20 03/16/22 12:58 Oxygen Flow Rate (L/min) 2 Oxygen Delivery Method Room Air Weight: 85.1 kg Body Mass Index (BMI) 26.9 Intake & Output: Intake and Output for Last 24 Hours 03/21/22 03/22/22 03/23/22 23:59 23:59 23:59 Intake Total 2053.03 / 2053.03 790.0 / 790.0 Output Total 1000 / 1000 Balance 1053.03 / 1053.03 790.0 / 790.0 Lab / Micro Data Result Diagrams: 03/23/22 04:15 03/23/22 04:15 Labs: Laboratory Results - last 24 hr 03/22/22 11:53: POC Glucose 156 H 03/22/22 15:57: POC Glucose 141 H 03/22/22 20:50: POC Glucose 138 H 03/23/22 04:15: WBC 5.6, RBC 3.68 L, Hgb 9.8 L, Hct 30.9 L, MCV 84.0, MCH 26.6 L , MCHC 31.7 L, RDW Std Deviation 45.2 H, RDW Coeff of Silvia 14.6, Plt Count 236, MPV 10.2, Immature Gran % (Auto) 0.400, Neut % (Auto) 57.2, Lymph % (Auto) 29.3, [place] % (Auto) 8.6, Eos % (Auto) 3.8, Baso % (Auto) 0.7, Absolute Neuts (auto) 3.2, Absolute Lymphs (auto) 1.64, Nucleated RBC % 0, Differential Comment SCANNED 03/23/22 04:15: Sodium 139, Potassium 4.3, Chloride 102, Carbon Dioxide 31.0, Anion Gap 6, BUN 66 H, Creatinine 3.39 H, Estim Creat Clear Calc 23.63, Est GFR (MDRD) Af Amer 24 L, Est GFR (MDRD) Non-Af 20 L, BUN/Creatinine Ratio 19.5, Glucose 136 H, Calcium 8.9 03/23/22 04:15: APTT 75.2 H 03/23/22 04:15: Hep Bs Antigen Non-Reactive 03/23/22 09:18: POC Glucose 136 H Micro: Microbiology 03/23/22 06:40 Nasal Secretion SARS-CoV-2 Antigen (Rapid) - Final Radiography Diagnostic Testing: Radiology Impression Brain MRI 03/22/22 07:00 IMPRESSION: 1. Previously seen small acute infarct with abnormal diffusion weighted signal in the superior aspect of the right frontal and parietal lobes has resolved since the prior study. There is no demonstrated acute infarct or abnormal diffusion weighted signal on the current study. Electronically Signed: Moe Anderson MD at 11:42 EDT , Physical Exam Narrative General: Alert and oriented x3 in no apparent distress. HEENT: Normocephalic, atraumatic. Mucous membranes moist without erythema. PERRLA, EOMI. Neck: Supple. Heart: Irregularly irregular S1-S2. No rubs, murmurs or gallops. Lungs: Decreased breath sounds and faint rales at bases bilaterally; no wheezing, rhonichi Abdomen: Normal bowel sounds, soft, nontender, no guarding or rebound. Extremities: 3+ edema of the lower extremities bilaterally. Assessment & Plan Assessment/Plan (1) AIME (acute kidney injury): PLAN: The patient has been losing kidney function since November 2021, evidence of CKD since 2019. Serum creatinine has increased from baseline of 2.06 mg/dL on 11/10/2021 up to 4.03 mg/dL on 03/18/2022. There has been quick progression of underlying diabetic kidney disease compounded with cardiorenal syndrome. Renal function has not improved much despite cutting back on Lasix, and patient is volume overloaded. Patient states baseline weight ~165lbs. Current wt ~190lbs. Currently his weight staying about the same on lasix 40mg bid. Once on dialysis will remove fluid as patient and bp tolerates. Possible EDW ~165lbs. The patient would be best served by starting dialysis to control both volume and azotemia. Without dialysis, our option is limited as the patient will likely continue to become less responsive to diuretic at home with expected progressive loss of renal function. This was explained to patient today. Moreover, since renal function is borderline, we cannot be overly aggressive with diuresis especially in the ambulatory setting. Treatment options for hypertension is also limited without dialysis at this point (for example, we cannot use medications such as RAAS inhibitors because of propensity for hyperkalemia). The patient will be at high risk for readmissions and for decompensation of heart failure/volume overload as well as solute/electrolyte complications of deteriorating CKD such as hyperkalemia. Bps slightly elevated and expect to improve as fluid is removed with dialysis and volume status improves. He is on lopressor and diltiazem. Hemoglobin acceptable and does not need KRUPA with HD at this time. Not much improvement in renal function and volume status as likely this is now ESRD. Discussed this with patient, questions answered. Patient is to undergo placement of TDC today. Depending upon timing of catheter placement patient will undergo hemodialysis either later today or tomorrow. HepBSag negative Will arrange for mapping and AV access placement in outpatient setting. Dialysis has been arranged at [facility], Tuesday ay, 2nd shift. Followed by Dr. Sandoval (2) Chronic kidney disease, stage 4 (severe): PLAN: The patient has underlying chronic kidney disease. Serum creatinine was already 2.06 mg/dL in November 2021. He was also found to have significant urine protein during the last admission; Urine protein/cr ratio 3.1gm. Evidence of proteinuria since 2018. Renal function is declining due to poor glycemic and BP control and nonadherence to medications. kidney disease is due to diabetic kidney disease. (3) Hyperkalemia: PLAN: The patient presented to the hospital with potassium level of 6.0 mmol/L. Hyperkalemia was likely due to AIME on CKD. The patient was not on JETHRO inhibitor/ARB or potassium supplementation prior to admission. (4) Atrial fibrillation with RVR: PLAN: The patient is being seen by cardiology. He is currently on heparin drip. Heart rate is now under control with diltiazem. History of Acute on chronic CHF with preserved EF. EF 55%.
--- NOTE | 2022-03-23 11:59 | CASEMGMT ---
SW met with patient and he did want to complete Healthcare Power of Inoculator and Healthcare Living Will. SW completed documents with patient. Copies were made and given to patient along with originals. A copy of each was also placed in patient's chart. Angie ELIAS
[2022-03-23 12:35] LABS: Bedside Glucose 137 mg/dL (74-106)
--- NOTE | 2022-03-23 13:08 | NURSING ---
Pt. leaving for surgery at this time
[2022-03-23] MEDS: Lidocaine 1% /Epi 1:100 (20ml) 20 ML Vial (14:33)
[2022-03-23] MEDS: Heparin 10,000 UNITS/10 ML Vial 10000 UNITS (14:44)
--- NOTE | 2022-03-23 14:48 | PCM.OPRPT ---
Report of Operation Date of Procedure: 03/23/22 Pre-Operative Diagnosis: Chronic kidney disease and need for dialysis access Post-Operative Diagnosis: Same Surgery/Procedure Performed:: Ultrasound and fluoroscopy guided right chest tunneled dialysis catheter placement utilizing right IJ Description of Procedure: Patient was brought back to the operating room MAC anesthesia was induced. The right neck and chest were prepped in usual sterile fashion. Ultrasound was used to inspect the right side of the neck and the IJ was identified. The skin overlying the IJ was injected with local anesthetic as well as the skin and chest. A small incision was made in the neck and in the chest. Under ultrasound guidance a needle was used to access the right IJ and then a guidewire was placed under fluoroscopy guidance. Next the needle was removed and serial dilators and then the peel-away sheath were placed over the wire and then the wire was removed and the cath was placed on the peel-away sheath. Next the catheter was placed on the tunneler and placed from the chest incision to the neck incision and brought out. It was then placed into the peel-away sheath and the peel-away sheath was removed. This was done under fluoroscopy and indicated good placement. Next the catheter was sutured to the skin. Both catheters were drawn and flushed with saline and they both jaylen and flushed easily. Each catheter was then flushed with 1.6 cc of heparinized saline and then capped and clamped. The incision in the neck was closed with interrupted 3-0 Vicryl suture. Bandage was placed over this incision. Dressings and a bandage were placed over the main incision. Patient was then taken to PACU in stable condition. Chest film obtained. Grafts/Implants Used: 19 cm palindrome tunneled temporary dialysis catheter Admit VTE Documentation VTE Mechan Device Prophylaxis: SCD's
--- NOTE | 2022-03-23 15:58 | CASEMGMT ---
OP notes sent to [facility]. Aspen MARTINEZ CM
[2022-03-23 18:31] LABS: Bedside Glucose 142 mg/dL (74-106)
--- NOTE | 2022-03-23 19:30 | PN.CARD_ITS ---
Subjective Subjective The patient has subsequently undergone dialysis catheter placement without report of any obvious cardiovascular compromise/concern. Objective Data Vital Signs: Vital Signs Temp Pulse Resp BP Pulse Ox O2 Del Method O2 Flow Rate 97.9 F 81 18 177/100 H 98 Room Air 2 03/23/22 18:00 03/23/22 18:00 03/23/22 18:00 03/23/22 18:00 03/23/22 18:00 03/23/22 18:00 03/23/22 15:06 Oxygen Flow Rate (L/min) 2 Oxygen Delivery Method Room Air Weight: 187 lb 9.814 oz Body Mass Index (BMI) 26.9 Intake & Output: Intake and Output for Last 24 Hours 03/21/22 03/22/22 03/23/22 23:59 23:59 23:59 Intake Total 2053.03 / 2053.03 790.0 / 790.0 182.47 / 182.47 Output Total 1000 / 1000 Balance 1053.03 / 1053.03 790.0 / 790.0 182.47 / 182.47 Lab / Micro Data Result Diagrams: 03/23/22 04:15 03/23/22 04:15 Labs: Laboratory Results - last 24 hr 03/22/22 20:50: POC Glucose 138 H 03/23/22 04:15: WBC 5.6, RBC 3.68 L, Hgb 9.8 L, Hct 30.9 L, MCV 84.0, MCH 26.6 L , MCHC 31.7 L, RDW Std Deviation 45.2 H, RDW Coeff of Silvia 14.6, Plt Count 236, MPV 10.2, Immature Gran % (Auto) 0.400, Neut % (Auto) 57.2, Lymph % (Auto) 29.3, [place] % (Auto) 8.6, Eos % (Auto) 3.8, Baso % (Auto) 0.7, Absolute Neuts (auto) 3.2, Absolute Lymphs (auto) 1.64, Nucleated RBC % 0, Differential Comment SCANNED 03/23/22 04:15: Sodium 139, Potassium 4.3, Chloride 102, Carbon Dioxide 31.0, Anion Gap 6, BUN 66 H, Creatinine 3.39 H, Estim Creat Clear Calc 23.63, Est GFR (MDRD) Af Amer 24 L, Est GFR (MDRD) Non-Af 20 L, BUN/Creatinine Ratio 19.5, Glucose 136 H, Calcium 8.9 03/23/22 04:15: APTT 75.2 H 03/23/22 04:15: Hep Bs Antigen Non-Reactive 03/23/22 09:18: POC Glucose 136 H 03/23/22 12:17: POC Glucose 137 H 03/23/22 17:58: POC Glucose 142 H Micro: Microbiology 03/23/22 06:40 Nasal Secretion SARS-CoV-2 Antigen (Rapid) - Final Cardiology Labs/Tests 03/23/22 04:15: WBC 5.6, RBC 3.68 L, Hgb 9.8 L, Hct 30.9 L, MCV 84.0, MCH 26.6 L , MCHC 31.7 L, Plt Count 236, MPV 10.2, Immature Gran % (Auto) 0.400, Neut % (Auto) 57.2, Lymph % (Auto) 29.3, [place] % (Auto) 8.6, Eos % (Auto) 3.8, Baso % (Auto) 0.7, Absolute Neuts (auto) 3.2, Nucleated RBC % 0 03/23/22 04:15: Sodium 139, Potassium 4.3, Chloride 102, Carbon Dioxide 31.0, Anion Gap 6, BUN 66 H, Creatinine 3.39 H, Est GFR (MDRD) Af Amer 24 L, Est GFR (MDRD) Non-Af 20 L, BUN/Creatinine Ratio 19.5, Glucose 136 H, Calcium 8.9 03/23/22 04:15: APTT 75.2 H Rhythm: Sinus rhythm Physical Exam Const alert, oriented x3 and no apparent distress Orientation / Consciousness: awake HEENT normocephalic, head/scalp atraumatic and hearing grossly normal bilaterally Eyes PERRL, EOMs intact bilaterally, conjunctivae normal and no scleral icterus Neck full ROM, supple and no JVD Carotids: normal carotid upstroke Resp normal respiratory effort and clear to auscultation bilaterally Cardio regular rate, regular rhythm, S1 normal heart sound and S2 normal heart sound Heart Sounds: murmur systolic II/ soft mid left sternal border GI normal to inspection, nondistended, normoactive bowel sounds Extremity General Extremity: edema bilateral lower extremity Details: mild Skin no rashes or lesions noted Psych mental status grossly normal Assessment & Plan Assessment/Plan (1) Atrial fibrillation and flutter: PLAN: The patient has been found to have atrial fibrillation with RVR with subsequent conversion to atrial flutter with subsequent conversion to sinus rhythm. The patient has demonstrated subsequent paroxysmal atrial fibrillation. The etiology may be multifactorial based upon a combination of the patient's age, history of hypertension, history of CHF , valvular heart related issues, superimposed upon his other multiple comorbidities. At the present time he has high-sensitivity troponin I levels are negative. His ECG is demonstrated no acute electrocardiographic changes other than the change in his rhythm. His transthoracic echocardiogram has been reviewed. The patient has undergone further evaluation with a pharmacologic stress nuclear imaging study. This appears to be negative at this time. Thus, there are no immediate plans for additional invasive evaluation such as diagnostic cardiac catheterization. The patient will continue rate control therapy. He can resume anticoagulant therapy when he is able to from a post procedure/surgical standpoint, etc. (2) CHF exacerbation: QUALIFIERS: Heart failure type: unspecified Qualified Code(s): I50.9 - Heart failure, unspecified PLAN: The patient states he has a history of CHF . Based upon his objective studies this would be compatible with a heart failure with preserved ejection fraction type CHF. At the moment based upon his symptoms and his objective studies with respect to laboratory studies this may be compatible with an acute on chronic mediated event. His symptoms may also be exacerbated by his atrial dysrhythmia and his diminished renal function/elevated creatinine level. At the moment he is being monitored. He has been treated with diuretic therapy. His BUN/creatinine levels remain elevated. He is being followed by nephrology. He is status post hemodialysis catheter placement. He will initiate dialysis therapy with the hopes this will help with respect to his volume status. (3) Valvular heart disease: PLAN: He does have an element of underlying valvular heart disease based upon his transthoracic echocardiographic findings suggesting both MR and TR. This may be a contributing factor to his atrial dysrhythmia. At the moment he will continue to be monitored. He will continue medical therapy on volume control therapy as deemed alexey ropriate. (4) Hyperlipidemia: QUALIFIERS: Hyperlipidemia type: unspecified Qualified Code(s): E78.5 - Hyperlipidemia, unspecified PLAN: His lipid labs were reviewed. They appear to be under reasonably good control at this time. (5) Hypertension: PLAN: He has a history of hypertension. He states that he minimizes the use of medications because of concerns of side effects. (6) AIME (acute kidney injury): PLAN: He does appear to have worsening renal insufficiency. Again his renal insufficiency does impact choices of medications and other procedures. At the moment he is being evaluated by internal medicine and nephrology. Again he is status post hemodialysis catheter placement. He will initiate dialysis per nephrology. Addt'l Comments Overall, from a cardiovascular standpoint, the patient will continue cardiovascular medical management with rate control therapy and resuming anticoagulant therapy when he is able to from a surgical procedure standpoint. He will continue to follow with nephrology for his dialysis which hopefully will help control his volume status. Otherwise, there are no immediate plans for additional cardiovascular diagnostic studies/intervention at this time. This note was generated using a voice recognition system and there may be incorrect words, spelling or punctuation that were not noted when reviewing the office note prior to saving. Procedure Criteria Type of Procedure Procedure Type: Elective Elective Risks - COVID COVID Risk Discussion: The surgeon/proceduralist and patient have discussed in detail the risk of exposure to and/or potential harm posed by the COVID-19 virus with having a surgery/procedure at this time versus the risk of delaying the surgery/procedure. It is not possible to know either the risk of delaying the surgery or procedure or chance of getting an infection with perfect accuracy, but a joint decision was made between the patient and the surgeon/proceduralist to proceed at this time with the scheduled surgery/procedure as indicated on the consent form.
--- NOTE | 2022-03-23 20:38 | RAD_ITS ---
INDICATION: line placement -- in pacu EXAMINATION/TECHNIQUE: X-RAY - XR Chest 1 View COMPARISON: 03/16/2022 chest x-ray FINDINGS: LINES/DEVICES: New dual-lumen internal jugular central venous catheter with the tip at the cavoatrial junction. No pneumothorax. LUNGS: Minimally decreased lung volumes. Bibasilar airspace disease is again exemplified but mildly improved compared with 03/16/2022. No pleural effusion, nodule or pneumothorax. MEDIASTINUM AND CARDIOVASCULAR STRUCTURES: Normal size and contour of the cardiomediastinal silhouette. No evidence of pulmonary vascular congestion. BONES AND SOFT TISSUES: No fracture or focal osseous lesion. RAD/CXR for Line Placement IMPRESSION: 1. Well-positioned right IJ dual-lumen central venous catheter. 2. Improving airspace disease bilateral lung bases. Electronically Signed: Harjit Samuel DO at 22:15 EDT ,
[2022-03-23] MEDS: Insulin Glargine-YFGN 100 UNIT/ML Pen 18 UNIT SC (20:53)
[2022-03-23 21:16] LABS: Bedside Glucose 224 mg/dL (74-106)
[2022-03-23] MEDS: Senna/Docusate Sodium 1 Tablet 2 TABLET PO (21:36)
[2022-03-24] VITALS (10 sets, daily range): BP systolic 132–179; BP diastolic 79–106; PULSE 72–96; RESP 16–20; TEMP 36.7–36.9; O2SAT 92–100
[2022-03-24] MEDS: Morphine 2 MG/ML Syringe 1 MG IV ×2 (00:51→10:30)
[2022-03-24] MEDS: HEPARIN/D5w 25,000 UNITS 25,000 UNITS/250 ML IV.SOLN. 14 UNITS CONT INF (02:52)
[2022-03-24] MEDS: 0.9% Saline Lock 10 ML Syringe IV ×2 (02:54→10:30)
[2022-03-24 05:26] LABS: Absolute Lymphocyte Count 1.45 X10^3/uL (0.83-4.51); Absolute Neutrophil Count 3.8 X10^3/uL (2.0-7.7); Basophil# 0.05 X10^3/uL; Basophil% 0.8 % (0-1); Eosinophil# 0.22 X10^3/uL; Eosinophils% 3.6 % (0-5); Hemoglobin 9.7 g/dL (13.0-16.5); Lymphocyte # 1.45 X10^3/ul (0.83-4.51); Lymphocyte % 23.8 % (19-41); Mean Corp Hgb Conc 32.3 g/dL (32-36); Mean Corpuscular Hgb 27.2 pg (27.0-32.0); Mean Platelet Vol. 10.4 fl (6.2-12.0); Monocyte% 9.9 % (0-10); NRBC Flagged by Analyzer 0 % (0-5); Neutrophil # 3.75 X10^3/uL (2.7-7.7); Neutrophil % 61.6 % (47-70); Platelet Count 225 K/mm3 (150-450); RBC Distribution Width CV 14.6 % (11.6-14.6); RBC Distribution Width SD 45.1 fl (35.1-43.9); Red Blood Count 3.57 M/mm3 (4.6-6.2); White Blood Count 6.1 K/mm3 (4.4-11.0)
[2022-03-24 05:37] LABS: Partial Thromboplast Time 54.8 Seconds (24.1-36.2)
[2022-03-24 05:48] LABS: Anion Gap 5 (5-15); BUN 67 mg/dL (7-18); BUN/Creat Ratio 20.2 RATIO (10-20); Calcium,Total 8.9 mg/dL (8.5-10.1); Chloride 102 mmol/L (98-107); Creatinine, Serum 3.31 mg/dL (0.70-1.30); EST Glomerular Filtration Rate 20 mL/min (>60); Est Glom Filt Rate - Afr Amer 25 mL/min (>60); Glucose 151 mg/dL (74-106); Potassium 4.5 mmol/L (3.5-5.1); Sodium Level 139 mmol/L (136-145)
[2022-03-24] MEDS: Heparin Injection (Vial) 5,000 UNIT/ML VIAL IV (06:56)
--- NOTE | 2022-03-24 10:37 | PCM.PN.REN ---
Subjective Subjective Resting in bed. Seen and evaluated while on dialysis. No complaints except for discomfort where tunneled HD catheter has been inserted. No overnight events. Objective Data Objective Data Vital Signs: Vital Signs Temp Pulse Resp BP Pulse Ox O2 Del Method O2 Flow Rate 98.3 F 79 20 H 177/102 H 92 Room Air 2 03/24/22 09:02 03/24/22 09:02 03/24/22 09:02 03/24/22 09:02 03/24/22 06:00 03/24/22 09:02 03/23/22 15:06 Oxygen Flow Rate (L/min) 2 Oxygen Delivery Method Room Air Weight: 85.2 kg Body Mass Index (BMI) 26.9 Intake & Output: Intake and Output for Last 24 Hours 03/22/22 03/23/22 03/24/22 23:59 23:59 23:59 Intake Total 790.0 / 790.0 182.47 / 182.47 125.16 / 125.16 Balance 790.0 / 790.0 182.47 / 182.47 125.16 / 125.16 Lab / Micro Data Result Diagrams: 03/24/22 04:39 03/24/22 04:39 Labs: Laboratory Results - last 24 hr 03/23/22 12:17: POC Glucose 137 H 03/23/22 17:58: POC Glucose 142 H 03/23/22 20:52: POC Glucose 224 H 03/24/22 04:39: WBC 6.1, RBC 3.57 L, Hgb 9.7 L, Hct 30.0 L, MCV 84.0, MCH 27.2, MCHC 32.3, RDW Std Deviation 45.1 H, RDW Coeff of Silvia 14.6, Plt Count 225, MPV 10.4, Immature Gran % (Auto) 0.300, Neut % (Auto) 61.6, Lymph % (Auto) 23.8, [place] % (Auto) 9.9, Eos % (Auto) 3.6, Baso % (Auto) 0.8, Absolute Neuts (auto) 3.8, Absolute Lymphs (auto) 1.45, Nucleated RBC % 0 03/24/22 04:39: Sodium 139, Potassium 4.5, Chloride 102, Carbon Dioxide 32.0, Anion Gap 5, BUN 67 H, Creatinine 3.31 H, Estim Creat Clear Calc 24.20, Est GFR (MDRD) Af Amer 25 L, Est GFR (MDRD) Non-Af 20 L, BUN/Creatinine Ratio 20.2 H, Glucose 151 H, Calcium 8.9 03/24/22 04:39: APTT 54.8 H Micro: Microbiology 03/23/22 06:40 Nasal Secretion SARS-CoV-2 Antigen (Rapid) - Final Radiography Diagnostic Testing: Radiology Impression Chest X-Ray 03/23/22 20:38 IMPRESSION: 1. Well-positioned right IJ dual-lumen central venous catheter. 2. Improving airspace disease bilateral lung bases. Electronically Signed: Harjit Samuel, DO at 22:15 EDT , Physical Exam Narrative General: Alert and oriented x3 in no apparent distress. HEENT: Normocephalic, atraumatic. Mucous membranes moist without erythema. PERRLA, EOMI. Neck: Supple. Heart: Irregularly irregular S1-S2. No rubs, murmurs or gallops. Lungs: Decreased breath sounds and faint rales at bases bilaterally; no wheezing, rhonichi Abdomen: Normal bowel sounds, soft, nontender, no guarding or rebound. Extremities: 3+ edema of the lower extremities bilaterally. Tunneled HD catheter right chest dressing C/D/I Assessment & Plan Assessment/Plan (1) AIME (acute kidney injury): PLAN: The patient has been losing kidney function since November 2021, evidence of CKD since 2019. Serum creatinine has increased from baseline of 2.06 mg/dL on 11/10/2021 up to 4.03 mg/dL on 03/18/2022. There has been quick progression of underlying diabetic kidney disease compounded with cardiorenal syndrome. Renal function has not improved much despite cutting back on Lasix, and patient is volume overloaded. Patient states baseline weight ~165lbs. Current wt ~190lbs. Currently his weight staying about the same on lasix 40mg bid. Once on dialysis will remove fluid as patient and bp tolerates. Possible EDW ~165lbs. The patient would be best served by starting dialysis to control both volume and azotemia. Without dialysis, our option is limited as the patient will likely continue to become less responsive to diuretic at home with expected progressive loss of renal function. This was explained to patient today. Moreover, since renal function is borderline, we cannot be overly aggressive with diuresis especially in the ambulatory setting. Treatment options for hypertension is also limited without dialysis at this point (for example, we cannot use medications such as RAAS inhibitors because of propensity for hyperkalemia). The patient will be at high risk for readmissions and for decompensation of heart failure/volume overload as well as solute/electrolyte complications of deteriorating CKD such as hyperkalemia. Bps slightly elevated this am, patient reports pain at dialysis catheter insertion site. He can apply ice bag to area PRN. Expect bps to improve as fluid is removed with dialysis and volume status improves. He is on lopressor and diltiazem. Hemoglobin acceptable and does not need KRUPA with HD at this time. Not much improvement in renal function and volume status as likely this is now ESRD. Discussed this with patient, questions answered. Patient had placement of TDC 03/23. First dialysis today over 2.5hours with no UF. Explained to patient next coming dialysis treatments fluid will be removed as patient and bp tolerates. Will establish a dry weight at the kidney center. Will arrange for mapping and AV access placement in outpatient setting. Dialysis has been arranged at [facility], Tuesday, 2nd shift. Followed by Dr. Sandoval (2) Chronic kidney disease, stage 4 (severe): PLAN: The patient has underlying chronic kidney disease. Serum creatinine was already 2.06 mg/dL in November 2021. He was also found to have significant urine protein during the last admission; Urine protein/cr ratio 3.1gm. Evidence of proteinuria since 2018. Renal function is declining due to poor glycemic and BP control and nonadherence to medications. kidney disease is due to diabetic kidney disease. (3) Hyperkalemia: PLAN: The patient presented to the hospital with potassium level of 6.0 mmol/L. Hyperkalemia was likely due to AIME on CKD. The patient was not on JETHRO inhibitor/ARB or potassium supplementation prior to admission. (4) Atrial fibrillation with RVR: PLAN: The patient is being seen by cardiology. He is currently on heparin drip. Heart rate is now under control with diltiazem. History of Acute on chronic CHF with preserved EF. EF 55%. Possibly to start on Warfarin
--- NOTE | 2022-03-24 10:50 | DIALYSIS ---
Hemodialysis complete, 200ml fluid removed. Dialysis CVC dressing is clean and dry. Pt tolerated treatment without difficulty.
--- NOTE | 2022-03-24 11:23 | DCINST_ITS ---
Discharge Instructions Diet Discharge Diet: Low fat / Low cholesterol, 8 Cup Fluid Restriction and 2000 mg Sodium Diet Activity Discharge Activity: Return to Normal Activity Dressing / Incision Call your doctor if you observe: Shortness of breath, Swelling in the ankles, Chest pain and Increased palpitations (irregular heartbeat) Follow Up Care Test Results: Test results from this visit will be discussed in further detail at your follow- up appointment, if applicable. Discharge Plan Admission Admit Date/Time: 03/16/22 02:35 Primary Reason for Your Visit: ESRD, AFib Attending Provider: Leatha Starks Primary Care Provider: Amish Han Consulting Providers: Hans Grant ; Andie Weiss ; Hans Strong ; Delphine Ness ; Ventura Rutledge Discharge Orders/Prescriptions Prescriptions: New furosemide 40 mg Tablet 40 mg PO BIDLX 30 Days Qty: 60 0RF diltiazem HCl 120 mg Capsule,Extended Release 24hr 120 mg PO Q12 30 Days Qty: 60 0RF metoprolol tartrate 25 mg Tablet 12.5 mg PO BID 30 Days Qty: 30 0RF lacosamide [Vimpat] 100 mg Tablet 100 mg PO BID 30 Days Qty: 60 0RF Continued insulin lispro [Humalog KwikPen Insulin] 100 unit/mL Insulin Pen 5 unit SUBCUT TID insulin glargine [Lantus U-100 Insulin] 100 unit/mL Solution 18 unit SUBCUT QPM Discontinued furosemide [Lasix] 40 mg tablet 20 mg PO DAILY Label Comments: TAKE 1 TABLET BY MOUTH ONCE DAILY Referrals / Follow Up: Amish Han MD [Primary Care Provider] - Within 1 Month Andie Weiss MD [Med Staff - Consulting] - Within 2 Weeks Disposition Disposition (needs filled in before D/C Order can be placed): Home, Self Care
--- NOTE | 2022-03-24 11:32 | PCM.DC.SUM ---
Documented by User: LAVELLE Thayer 03/24/22 11:39 Providers Date of Admission: 03/16/22 Date of Discharge: 03/24/22 Primary Care Physician: Dr. Amish Han MD Consultations 03/16/22 09:37 Consult: Nephrology Routine Consulting Provider: Andie Weiss Reason for Consult: AIME on CKD EMERGENT Consult: No MD Notified: Yes Date Notified: 03/16/22 Time Notified: 09:37 Method of Notification: Text 03/17/22 11:22 Consult: Cardiology Routine Consulting Provider: Hans Strong Reason for Consult: Afib RVR EMERGENT Consult: No MD Notified: Yes Date Notified: 03/17/22 Time Notified: 11:23 Method of Notification: Verbal 03/22/22 15:04 Consult: General Surgery Routine Consulting Provider: Ventura Rutledge Reason for Consult: Dialysis Catheter Placement EMERGENT Consult: No MD Notified: Yes Date Notified: 03/22/22 Time Notified: 15:04 Method of Notification: Verbal Reason For Visit: ATRIAL FRIBRILLATION RVR Diagnosis Discharge Diagnosis (1) AIME (acute kidney injury): Status: Acute Code(s): N17.9 - Acute kidney failure, unspecified (2) Chronic kidney disease, stage 4 (severe): Status: Chronic Code(s): N18.4 - Chronic kidney disease, stage 4 (severe) (3) Hyperkalemia: Status: Acute Code(s): E87.5 - Hyperkalemia (4) Atrial fibrillation with RVR: Status: Acute Code(s): I48.91 - Unspecified atrial fibrillation Plan 1. Atrial fibrillation -Rate controlled, continue Cardizem 120 mg twice daily -Stress test negative -Cardiology following -Heparin on hold for dialysis catheter placement. 2. Questionable seizure -EEG read as normal -Continue Vimpat -SOC neurology following -MRI negative for new acute findings 3. Acute on chronic heart failure with preserved EF -EF 55% -Cardiology and nephrology following -Continue p.o. Lasix twice a day 4. Diabetes mellitus type 2 -ACH S blood sugars with sliding scale insulin -Continue Lantus -Hemoglobin A1c 7.8 5. Chronic kidney disease stage IV -Patient going for dialysis catheter placement with Dr. Rutledge today -Nephrology following -Creatinine 3.39 today DVT prophylaxis-not indicated, heparin drip This patient was seen by LAVELLE Thayer under the supervision of 12 minutes spent in clinical coordination of patient's plan of care. Medications at Discharge Home Medications insulin glargine 100 unit/mL subcutaneous solution (Lantus U-100 Insulin) 18 unit subcut QPM 03/16/22 insulin lispro 100 unit/mL subcutaneous pen (Humalog KwikPen (U-100) Insulin) 5 unit subcut TID 03/16/22 apixaban 5 mg tablet (Eliquis) 5 mg PO BID #60 tabs 03/24/22 diltiazem HCl 120 mg capsule,extended release 24 hr 120 mg PO Q12 30 days #60 caps 03/24/22 divalproex 500 mg tablet,delayed release (Depakote) 500 mg PO BID #60 tabs 03/24/22 furosemide 40 mg tablet 40 mg PO BIDLX 30 days #60 tabs 03/24/22 metoprolol tartrate 25 mg tablet 12.5 mg PO BID 30 days #30 tabs 03/24/22 Hospital Course Procedures 2-D Echocardiogram, Dialysis (with tunnelled catheter placement) and Stress test Summary of Care Provided Minutes Spent on Discharge: 35 Hospital Course: Patient is a 61-year-old male initially presented with dizziness and lightheadedness. Patient states that he has a history of stroke, chronic kidney disease and congestive heart failure. Patient admits to being noncompliant with his medication regimen at home and that he also has a history of diabetes mellitus type 2. Patient was found initially to be in atrial fibrillation with RVR. Chest x-ray demonstrates bibasilar pulmonary infiltrates. Echocardiogram completed which demonstrates EF 55%. Brain CT completed which shows mild chronic lucent changes without acute intracranial calvarial abnormality. Patient underwent stress test which was normal. Patient was seen by cardiology as well as nephrology throughout admission. Had discussed with at length with patient by multiple providers the need for him to initiate dialysis. Patient was adamant that he would not start dialysis as all of his family has once they have started on dialysis. There is a history of medical noncompliance in his family with her diabetes which is led to diabetic nephropathy. Patient finally agreed to dialysis and a tunneled dialysis catheter was placed on 03/23/2022. Patient received first dialysis treatment 03/24/2022 which she tolerated well. Patient will be discharged home with instructions to follow-up with his PCP, nephrology and cardiology. Stressed the importance of adhering to his medication regimen with patient as he has inquired about receiving kidney transplant. Weight / BMI Weight Weight: 187 lb 13.341 oz Body Mass Index (BMI) 26.9 ABG / Lab / Microbiology Data Result Diagrams: 03/24/22 04:39 03/24/22 04:39 Laboratory: Laboratory Results - last 24 hr 03/23/22 12:17: POC Glucose 137 H 03/23/22 17:58: POC Glucose 142 H 03/23/22 20:52: POC Glucose 224 H 03/24/22 04:39: WBC 6.1, RBC 3.57 L, Hgb 9.7 L, Hct 30.0 L, MCV 84.0, MCH 27.2, MCHC 32.3, RDW Std Deviation 45.1 H, RDW Coeff of Silvia 14.6, Plt Count 225, MPV 10.4, Immature Gran % (Auto) 0.300, Neut % (Auto) 61.6, Lymph % (Auto) 23.8, [place] % (Auto) 9.9, Eos % (Auto) 3.6, Baso % (Auto) 0.8, Absolute Neuts (auto) 3.8, Absolute Lymphs (auto) 1.45, Nucleated RBC % 0 03/24/22 04:39: Sodium 139, Potassium 4.5, Chloride 102, Carbon Dioxide 32.0, Anion Gap 5, BUN 67 H, Creatinine 3.31 H, Estim Creat Clear Calc 24.20, Est GFR (MDRD) Af Amer 25 L, Est GFR (MDRD) Non-Af 20 L, BUN/Creatinine Ratio 20.2 H, Glucose 151 H, Calcium 8.9 03/24/22 04:39: APTT 54.8 H Microbiology: Microbiology 03/23/22 06:40 Nasal Secretion SARS-CoV-2 Antigen (Rapid) - Final Radiography Diagnostic Testing: Radiology Impression Chest X-Ray 03/23/22 20:38 IMPRESSION: 1. Well-positioned right IJ dual-lumen central venous catheter. 2. Improving airspace disease bilateral lung bases. Electronically Signed: Harjit Samuel DO at 22:15 EDT , D/C Instructions Discharge Diet: Low fat / Low cholesterol, 8 Cup Fluid Restriction and 2000 mg Sodium Diet Call your doctor if you observe: Shortness of breath, Swelling in the ankles, Chest pain and Increased palpitations (irregular heartbeat) Meaningful Use Info Meaningful Use Diagnoses (Choose all that apply): None applicable Discharge Plan Admission Admit Date/Time: 03/16/22 02:35 Primary Reason for Your Visit: ESRD, AFib Attending Provider: Leatha Starks Primary Care Provider: Amish Han Consulting Providers: Hans Grant ; Andie Weiss ; Hans Strong ; Delphine Ness ; Ventura Rutledge Discharge Orders/Prescriptions Prescriptions: New furosemide 40 mg Tablet 40 mg PO BIDLX 30 Days Qty: 60 0RF diltiazem HCl 120 mg Capsule,Extended Release 24hr 120 mg PO Q12 30 Days Qty: 60 0RF metoprolol tartrate 25 mg Tablet 12.5 mg PO BID 30 Days Qty: 30 0RF Eliquis 5 mg tablet 5 mg PO BID Qty: 60 0RF divalproex [Depakote] 500 mg tablet,delayed release (DR/EC) 500 mg PO BID Qty: 60 0RF Continued insulin lispro [Humalog KwikPen Insulin] 100 unit/mL Insulin Pen 5 unit SUBCUT TID insulin glargine [Lantus U-100 Insulin] 100 unit/mL Solution 18 unit SUBCUT QPM Discontinued furosemide [Lasix] 40 mg tablet 20 mg PO DAILY Label Comments: TAKE 1 TABLET BY MOUTH ONCE DAILY Referrals / Follow Up: Amish Han MD [Primary Care Provider] - 04/23/22 11:40 am Andie Weiss MD [Med Staff - Consulting] - Within 2 Weeks Philip Carrasco MD [Non-Staff] - 08/24/22 9:00 am (Dr. Carrasco's office placed you on a cancelation list so if an appt becomes available they will call you. ) Disposition Disposition (needs filled in before D/C Order can be placed): Home, Self Care Documented by User: Dr. Leatha Starks MD 03/24/22 15:41 Providers Date of Admission: 03/16/22 Reason For Visit: ATRIAL FRIBRILLATION RVR Diagnosis Discharge Diagnosis (1) AIME (acute kidney injury): Status: Acute Code(s): N17.9 - Acute kidney failure, unspecified (2) Chronic kidney disease, stage 4 (severe): Status: Chronic Code(s): N18.4 - Chronic kidney disease, stage 4 (severe) (3) Hyperkalemia: Status: Acute Code(s): E87.5 - Hyperkalemia (4) Atrial fibrillation with RVR: Status: Acute Code(s): I48.91 - Unspecified atrial fibrillation Medications at Discharge Home Medications insulin glargine 100 unit/mL subcutaneous solution (Lantus U-100 Insulin) 18 unit subcut QPM 03/16/22 insulin lispro 100 unit/mL subcutaneous pen (Humalog KwikPen (U-100) Insulin) 5 unit subcut TID 03/16/22 apixaban 5 mg tablet (Eliquis) 5 mg PO BID #60 tabs 03/24/22 diltiazem HCl 120 mg capsule,extended release 24 hr 120 mg PO Q12 30 days #60 caps 03/24/22 divalproex 500 mg tablet,delayed release (Depakote) 500 mg PO BID #60 tabs 03/24/22 furosemide 40 mg tablet 40 mg PO BIDLX 30 days #60 tabs 03/24/22 metoprolol tartrate 25 mg tablet 12.5 mg PO BID 30 days #30 tabs 03/24/22 ABG / Lab / Microbiology Data Result Diagrams: 03/24/22 04:39 03/24/22 04:39 Discharge Plan Admission Admit Date/Time: 03/16/22 02:35 Primary Reason for Your Visit: ESRD, AFib Attending Provider: Leatha Starks Primary Care Provider: Amish Han Consulting Providers: Hans Grant ; Andie Weiss ; Hans Strong ; Delphine Ness ; Ventura Rutledge Discharge Orders/Prescriptions Prescriptions: New furosemide 40 mg Tablet 40 mg PO BIDLX 30 Days Qty: 60 0RF diltiazem HCl 120 mg Capsule,Extended Release 24hr 120 mg PO Q12 30 Days Qty: 60 0RF metoprolol tartrate 25 mg Tablet 12.5 mg PO BID 30 Days Qty: 30 0RF Eliquis 5 mg tablet 5 mg PO BID Qty: 60 0RF divalproex [Depakote] 500 mg tablet,delayed release (DR/EC) 500 mg PO BID Qty: 60 0RF Continued insulin lispro [Humalog KwikPen Insulin] 100 unit/mL Insulin Pen 5 unit SUBCUT TID insulin glargine [Lantus U-100 Insulin] 100 unit/mL Solution 18 unit SUBCUT QPM Discontinued furosemide [Lasix] 40 mg tablet 20 mg PO DAILY Label Comments: TAKE 1 TABLET BY MOUTH ONCE DAILY Referrals / Follow Up: Amish Han MD [Primary Care Provider] - 04/23/22 11:40 am Andie Weiss MD [Med Staff - Consulting] - Within 2 Weeks Philip Carrasco MD [Non-Staff] - 08/24/22 9:00 am (Dr. Carrasco's office placed you on a cancelation list so if an appt becomes available they will call you. ) Disposition Disposition (needs filled in before D/C Order can be placed): Home, Self Care Charges/Coding Addendum Addendum: This patient was seen in conjunction with Eric Reno NP.? I have independently interviewed and examined the patient and reviewed pertinent historical, laboratory, and other data. I have reviewed her note and concur with her documentation 61-year-old with past medical history of CKD and CVA who comes in with complaints of dizziness and lightheadedness worsening throughout the day. Patient was found to be in A. fib with RVR. He was started on Cardizem drip. He was also found to have acute kidney injury. Cardiology was consulted as well as nephrology. Patient underwent stress test on 03/29/22 and that was unremarkable. His heart rates became well controlled, on oral Cardizem. Patient's kidney function however worsened and he received a dialysis catheter on 03/23/22. He was started on dialysis on 03/24/22. She has an outpatient dialysis chair set up for Tuesday. During this hospital stay, patient was noted to have a seizure activity. He was started on IV Vimpat. He however could not afford to continue outpatient. He was switched over to valproic acid. He was recommended to follow-up with neurology in the outpatient. Physical Exam: Gen: Comfortable, not pale, not jaundiced CVS:HS I +II, regular, no murmurs RESP: Diminished at lung bases GI: BS present and normal, soft, nontender, no palpable organs EXT: Bilateral pedal edema +1 Time spent coordinating all aspects of patient's care, discussing with nursing, discussing with subspecialists:35 minutes Visit Charges Inpatient E&M: 42086 Disch Hosp
--- NOTE | 2022-03-24 11:35 | CASEMGMT ---
Addendum entered by Cathy Ibarra 03/24/22 12:46: Pt now to be sent home on Depakote and cost is $32. Rx assist form tubed to [facility] pharmacy and aware to use. Pt already provided OP HD schedule letter and states no further concerns/needs with going home at discharge. Aspen MARTINEZ CM Addendum entered by Cathy Ibarra 03/24/22 11:53: Call from Mikey in pharmacy and she states that the Vimpat will be $[address] Starks and Kristen [employer] [employer] OFFICE ASSISTANT aware. CM to follow. Aspen MARTINEZ CM Original Note: Call to Mendez at [facility] to verify that pt is medically and financially cleared for OP HD w/ 1st OP treatment 03/26/22. Mendez states he will verify and notify this RN CM. Per Stevie ESQUIVEL, pt is refusing to be placed on coumadin and lovenox at d/c. Per vianey Cortez, pt is normally not very compliant with meds. Stevie ESQUIVEL aware and pt to be placed on Eliquis and provided with 30 day free trial card so that he will at least be sent home with meds from [facility] pharmacy. Call to Mikey in pharmacy and she will notify this RN CM of cost of other meds and [facility] Rx assist possibly to be used. CM to follow. Aspen MARTINEZ CM
[2022-03-24] MEDS: dilTIAZem CD 120 MG Capsule PO (11:38)
[2022-03-24] MEDS: Metoprolol Tartrate 25 MG Tablet 12.5 MG PO (11:39)
[2022-03-24] MEDS: Furosemide 40 MG Tablet PO (11:40)
[2022-03-24] MEDS: Lacosamide 100 MG Tablet PO (11:40)
--- NOTE | 2022-03-24 11:44 | NURSING ---
All 1000 medications given late as patient was getting dialysis at bedside.
[2022-03-24 11:55] LABS: Bedside Glucose 98 mg/dL (74-106)
--- NOTE | 2022-03-24 13:23 | CASEMGMT ---
Received update from Mendez at [facility] that patient is medically and financially cleared to begin outpatient HD starting on Tuesday.
--- NOTE | 2022-03-24 14:14 | PHA.DC.MC ---
Pharmacy Service has performed discharge medication reconciliation and counseling for this patient. 1. APIXABAN 5MG PO BID 2. DILTIAZEM XR 120MG PO Q12 3. DIVALPROEX DR 500MG PO BID 4. FUROSEMIDE 40MG PO BIDLX 5. METOPROLOL TARTRATE 12.5MG PO BID The patient's discharge medication list was reviewed for discrepancies and discrepancies were resolved. Home Medications insulin glargine 100 unit/mL subcutaneous solution (Lantus U-100 Insulin) 18 unit subcut QPM 03/16/22 insulin lispro 100 unit/mL subcutaneous pen (Humalog KwikPen (U-100) Insulin) 5 unit subcut TID 03/16/22 apixaban 5 mg tablet (Eliquis) 5 mg PO BID #60 tabs 03/24/22 diltiazem HCl 120 mg capsule,extended release 24 hr 120 mg PO Q12 30 days #60 caps 03/24/22 divalproex 500 mg tablet,delayed release (Depakote) 500 mg PO BID #60 tabs 03/24/22 furosemide 40 mg tablet 40 mg PO BIDLX 30 days #60 tabs 03/24/22 metoprolol tartrate 25 mg tablet 12.5 mg PO BID 30 days #30 tabs 03/24/22 The patient was counseled on the following discharge medications and changes in medications for homegoing were reviewed. The Reason for Use, instructions for use, and potential side effects were reviewed for all new medications. The patient's questions regarding all of their medications were answered. The patient was able to verbally demonstrate an understanding of their discharge medications. Patient counseled by pharmacy operations specialistBret.
== END 2022-03-24 16:15 | disposition home or self-care (01) | DRG 291 ==
LOC: ED 02:23 → PCU 02:49
PROVIDERS: Internal Medicine; Internal Medicine Cardiovascular Disease; Nurse Practitioner Adult Health; Student in an Organized Health Care Education/Training Program; Surgery; Admitting Provider Family Medicine; Emergency Provider Emergency Medicine; PCP Family Medicine; Visit Provider Internal Medicine
PROC: 0JH63XZ Insertion of Tunneled Vascular Access Device into Chest Subcutaneous Tissue and Fascia, Percutaneous Approach (ICD-10-PCS; principal; 2022-03-23 15:45)
DX: I13.0 Hypertensive heart and chronic kidney disease with heart failure and stage 1 through stage 4 chronic kidney disease, or unspecified chronic kidney disease (principal); I50.33 Acute on chronic diastolic (congestive) heart failure; I48.92 Unspecified atrial flutter; I69.354 Hemiplegia and hemiparesis following cerebral infarction affecting left non-dominant side; N17.9 Acute kidney failure, unspecified; N18.4 Chronic kidney disease, stage 4 (severe); G40.409 Other generalized epilepsy and epileptic syndromes, not intractable, without status epilepticus; D63.1 Anemia in chronic kidney disease; E11.21 Type 2 diabetes mellitus with diabetic nephropathy; E11.42 Type 2 diabetes mellitus with diabetic polyneuropathy; I48.0 Paroxysmal atrial fibrillation; E11.22 Type 2 diabetes mellitus with diabetic chronic kidney disease; E11.65 Type 2 diabetes mellitus with hyperglycemia; Z79.4 Long term (current) use of insulin; Z99.2 Dependence on renal dialysis; E78.5 Hyperlipidemia, unspecified; E87.5 Hyperkalemia; F17.220 Nicotine dependence, chewing tobacco, uncomplicated; I08.1 Rheumatic disorders of both mitral and tricuspid valves; Z91.14 Patient's other noncompliance with medication regimen; Z79.01 Long term (current) use of anticoagulants; Z79.899 Other long term (current) drug therapy; Z86.16 Personal history of COVID-19; Z28.310 Unvaccinated for COVID-19; Z28.9 Immunization not carried out for unspecified reason
CPT/HCPCS: 36415; 70450; 70551; 71045; 77001; 78452; 80048; 80053; 80061; 82570; 82962; 83036; 83605; 83735; 83880; 84132; 84484; 84540; 85025; 85610; 85730; 87340; 87426; 90937; 93005; 93017; 93306; 94762; 95819; 97162; 97166; 99285; 99406; A9500; J7030; J7040; A4216; C1750; G0257; J1940; J2785

== ENCOUNTER → 2022-04-08 | Outpatient (CLI) | payer MEDICARE, SELFPAY | END | disposition home or self-care (01) | LOC: CVS 13:31 | PROVIDERS: PCP Family Medicine; Referring Provider Surgery; Visit Provider Surgery | DX: Z01.818 Encounter for other preprocedural examination (principal); N18.4 Chronic kidney disease, stage 4 (severe) | CPT/HCPCS: 93985 ==

== ENCOUNTER → 2022-04-29 | Outpatient (CLI) | payer MEDICARE, SELFPAY ==
[2022-04-29 12:20] LABS: Absolute Neutrophil Count 4.5 X10^3/uL (2.0-7.7); Basophil# 0.05 X10^3/uL; Basophil% 0.7 % (0-1); Eosinophil# 0.39 X10^3/uL; Eosinophils% 5.4 % (0-5); Hematocrit 34.4 % (40-54); Hemoglobin 11.3 g/dL (13.0-16.5); Lymphocyte % 25.1 % (19-41); Mean Corp Hgb Conc 32.8 g/dL (32-36); Mean Corpuscular Hgb 27.7 pg (27.0-32.0); Mean Corpuscular Volume 84.3 fL (80-94); Mean Platelet Vol. 10.9 fl (6.2-12.0); Monocyte# 0.44 X10^3/uL; Monocyte% 6.1 % (0-10); NRBC Flagged by Analyzer 0 % (0-5); Neutrophil # 4.49 X10^3/uL (2.7-7.7); Neutrophil % 62.6 % (47-70); Platelet Count 203 K/mm3 (150-450); RBC Distribution Width CV 13.1 % (11.6-14.6); RBC Distribution Width SD 40.4 fl (35.1-43.9); Red Blood Count 4.08 M/mm3 (4.6-6.2); White Blood Count 7.2 K/mm3 (4.4-11.0)
[2022-04-29 12:40] LABS: Hemoglobin A1c 7.7 % (3.8-5.6)
[2022-04-29 12:57] LABS: ALB/GLOB Ratio 0.8 RATIO (0.9-2.4); AST(SGOT) 16 U/L (15-37); Alanine Aminotransfer ALT/SGPT 29 U/L (16-61); Albumin, Serum 3.3 g/dL (3.2-5.0); Alkaline Phosphatase 116 U/L (45-117); Anion Gap 8 (5-15); BUN 23 mg/dL (7-18); BUN/Creat Ratio 8.3 RATIO (10-20); Calcium,Total 8.6 mg/dL (8.5-10.1); Chloride 99 mmol/L (98-107); Cholesterol 215 mg/dL (200); Creatinine, Serum 2.77 mg/dL (0.70-1.30); EST Glomerular Filtration Rate 25 mL/min (>60); Est Glom Filt Rate - Afr Amer 30 mL/min (>60); Glucose 265 mg/dL (74-106); High Density Lipoprotein 49 mg/dL; Potassium 3.7 mmol/L (3.5-5.1); Protein, Total 7.3 g/dL (6.4-8.2); Sodium Level 137 mmol/L (136-145); Thyroid Stim Hormone (TSH) 2.14 uIU/mL (0.358-3.74); Triglycerides 142 mg/dL; Very Low Density Lipoprotein 28 mg/dL (5-40)
== END | disposition home or self-care (01) ==
LOC: MFPLAB 10:05
PROVIDERS: PCP Family Medicine; Referring Provider Family Medicine; Visit Provider Family Medicine
DX: E11.59 Type 2 diabetes mellitus with other circulatory complications (principal)
CPT/HCPCS: 36415; 80053; 80061; 83036; 84443; 85025

== ENCOUNTER 2022-05-27 08:28 | Day surgery (SDC) | payer MEDICARE, MEDICAID, SELFPAY ==
--- NOTE | 2022-05-25 10:13 | EKG12_ITS ---
Test Reason : PREOP Blood Pressure : / mmHG Vent. Rate : 088 BPM Atrial Rate : 088 BPM P-R Int : 140 ms QRS Dur : 082 ms QT Int : 422 ms P-R-T Axes : 053 -33 096 degrees QTc Int : 510 ms Normal sinus rhythm Left axis deviation Prolonged QT Nonspecific T wave abnormality Abnormal ECG Confirmed by DIOR MONSON, REMY ([id number]), editor newspaper HANNAH BRAY ([id number]) on 05/26/2022 6:45:33 AM Referred By: Harrison Rocha Confirmed By:REMY RADER MD
[2022-05-25 12:16] LABS: Hemoglobin 10.9 g/dL (13.0-16.5); Mean Corp Hgb Conc 32.1 g/dL (32-36); Mean Corpuscular Hgb 27.3 pg (27.0-32.0); Mean Platelet Vol. 10.4 fl (6.2-12.0); Platelet Count 253 K/mm3 (150-450); RBC Distribution Width CV 15.6 % (11.6-14.6); RBC Distribution Width SD 47.4 fl (35.1-43.9); White Blood Count 5.7 K/mm3 (4.4-11.0)
[2022-05-25 12:51] LABS: Anion Gap 6 (5-15); BUN 41 mg/dL (7-18); BUN/Creat Ratio 13.9 RATIO (10-20); Calcium,Total 8.9 mg/dL (8.5-10.1); Chloride 103 mmol/L (98-107); Creatinine, Serum 2.94 mg/dL (0.70-1.30); EST Glomerular Filtration Rate 23 mL/min (>60); Est Glom Filt Rate - Afr Amer 28 mL/min (>60); Glucose 128 mg/dL (74-106); Potassium 3.3 mmol/L (3.5-5.1); Sodium Level 142 mmol/L (136-145)
[2022-05-27] VITALS (10 sets, daily range): BP systolic 102–225; BP diastolic 64–120; PULSE 72–94; RESP 16; TEMP 36–36.8; O2SAT 92–98; BMI 25.6
--- NOTE | 2022-05-27 09:00 | PCM.HP.BLA ---
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: No Is patient in pain?: No Allergies hydrocodone bitartrate [From Vicodin] Adverse Reaction (Mild, Verified 05/13/22 09:15) HYPERlisinopril Adverse Reaction (Verified 05/13/22 09:15) Otheroxycodone Adverse Reaction (Verified 05/13/22 09:15) Other Medications insulin glargine 100 unit/mL subcutaneous solution (Lantus U-100 Insulin) 18 unit subcut QPM 03/16/22 [History Confirmed 05/13/22] insulin lispro 100 unit/mL subcutaneous pen (Humalog KwikPen (U-100) Insulin) 5 unit subcut TID 03/16/22 [History Confirmed 05/13/22] apixaban 5 mg tablet (Eliquis) 5 mg PO BID #60 tabs 03/24/22 [Rx Confirmed 05/13/22] divalproex 500 mg tablet,delayed release (Depakote) 500 mg PO BID #60 tabs 03/24/22 [Rx Confirmed 05/13/22] PFSH Medical History?(Updated 05/13/22 @ 10:[address] Harrison Rocha MD) Acute and chronic respiratory failure with hypoxia Acute hyperglycemia Benign essential hypertension Brain mass CHF (congestive heart failure) CHF (congestive heart failure) Chronic kidney disease, stage 4 (severe) Diabetes History of renal dialysis HTN (hypertension) Hyperglycemia Hypertensive urgency Peripheral neuropathy Pneumonia due to COVID-19 virus Seizure Seizures Smoker Stroke-like symptom TIA (transient ischemic attack) Type 2 diabetes mellitus Surgical History?(Updated 05/13/22 @ 09:12 by Kaitlin Hicks) History of rotator cuff surgery History of umbilical hernia repair Status post foot surgery Family History?(Updated 05/13/22 @ 09:13 by Kaitlin Hicks) Father Cancer ?? ? Prostate Heart diseaseMother Heart disease DiabetesOther COPD (chronic obstructive pulmonary disease) Social History? household members:? spouse and children number of children:? 3 current occupational status:? disabled Smoking Status:? Never smoker Smokeless tobacco user:? chewing tobacco alcohol intake:? never substance use type:? does not use HPI HPI HPI: 62-year-old gentleman.? He is referred by [facility] for permanent hemodialysis access.? Referral was made March 30, 2022.? Unfortunately patient failed to show for his previous appointment.? 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 On April 08, 2022 the patient had bilateral upper extremity vein mapping.? This demonstrates that the left forearm and upper arm cephalic vein appears quite small.? Left upper arm basilic vein is small for location.? The right forearm and upper arm cephalic vein of more normal diameter.? The right upper arm basilic vein small for location. The patient has right chest tunneled dialysis catheters.? He is in a wheelchair today.? Claims that he still has paresis of the left lower extremity from his stroke.? He is diabetic.? Blood sugars he states are 300 in the morning.? Hemoglobin A1c 2 weeks ago was 7.7.? Is on chronic Eliquis therapy.? He is left arm dominant. ROS General General: Yes fatigue; No weight change, appetite, colon cancer, breast cancer or weakness HEENT HEENT: Yes eye surgery; No difficulty swallowing, eye injury, swollen glands or hoarseness Endo Endocrine: Yes diabetes mellitus; No thyroid disease, thyroid cancer, Hair loss, heat intolerance or cold intolerance Skin Skin: No rash or changing moles Breast Breast: No left breast lump, right breast lump, nipple discharge, breast pain, abnormal mammogram, abnormal US or breast enlargement Musc Musculoskeletal: Yes back problems and arthritis; No rheumatoid arthritis, gout or joint pain Cardio Cardiovascular: Yes heart disease and atrial fibrillation; No murmur, pacemaker, high blood pressure, heart attack, heart stent, palpitations, shortness of breat with exertion or chest pain Psych Psychiatric: No depression, anxiety or hearing voices Resp Respiratory: No shortness of breath, No sleep apnea, No cough, No COPD, No asthma, No emphysema and No wheezing Mario Hematologic: No blood thinners, No blood disorders, No bleeding, No anemia and No blood clots Neuro Neurologic: No system reviewed and no additional complaints, except as documented, No as per HPI, No abnormal gait, No abnormal hearing, No abnormal movements, No abnormal speech, No behavioral changes, No burning sensations, No confusion, No convulsions, No disequilibrium, No dizziness, No localized weakness, No frequent falls, No headache(s), No lack of coordination, No loss of vision, No memory loss, No numbness, No other visual disturbances, No radicular pain, No restless legs, No sensory deficit, No syncope, No tingling, No tremor(s), No weakness and Yes other (Stroke) Exam Const General: cooperative Other: Patient appears much older and frail than stated age [facility] Other: Supple Chest Other: Right chest tunneled catheters Resp Effort & Inspection: normal respiratory effort Auscultation: clear to auscultation bilaterally Cardio Rate: regular rate Rhythm: regular rhythm GI Palpation: soft and no hepatosplenomegaly Neuro General: patient alert, patient awake and patient oriented x3 Extrem Other: Right upper extremity has a patent compressible cephalic vein throughout the forearm.? Is borderline in size.? Radial artery is 2-3+.? Richi test does demonstrate ulnar flow. Psych Appearance: grossly normal Assessment and Plan Assessment and Plan (1) Chronic in-center hemodialysis status: ?Status:?Acute ?Plan: I recommended the patient a right forearm radiocephalic arteriovenous hemodialysis fistula creation.? He is aware of the technique, benefit, risk of alternatives.? No guarantees of success.? Structures are rather borderline.? We will have him hold his Eliquis therapy 2 days preintervention.? As noted his most recent hemoglobin A1c was 7.7. He has had an opportunity to ask and have questions answered.? We will schedule procedure at his discretion.? I appreciate the opportunity of assisting with the surgical care. Copy: Dr Amish Han I have re-examined the patient. There are no clinical changes since date of exam. Harrison Rocha M.D., F.A.C.S.
--- NOTE | 2022-05-27 09:01 | DCINST_ITS ---
Discharge Instructions Procedure Fistula Diet Discharge Diet: Renal Diet Activity Discharge Activity: May Not Drive (for 2-3 days or while taking narcotic pain medications.), May Shower and May Take a Tub Bath (in 5 days.) Lifting Restrictions: 5 pounds Keep extremity elevated above heart level: - (Keep arm elevated above the heart level for 3 days.) Dressing / Incision Call your doctor if your incision/area has: Continuous Slow Oozing, Sudden Increased Bleeding (apply pressure and call your doctor.), Increased Pain/ Swelling, Increased Redness and Foul Smelling Discharge Call your doctor if you observe: Fever of 101 or Higher Suture Line Care: Avoid Pulling/Pushing and Avoid Pinching/Bending Cleanse incision/area with: Keep Dressing Clean & Dry Additional Dressing/Incision Instructions:: Change or remove dressing in one day. May protect with a gauze bandaid. Follow Up Care Please Follow Up With: Harrison Rocha MD When: Call [phone] to make an appointment for suture removal and follow up in 1 week. Test Results: Test results from this visit will be discussed in further detail at your follow- up appointment, if applicable. Discharge Plan Admission Attending Provider: Harrison Rocha Primary Care Provider: Amish Han Discharge Orders/Prescriptions Prescriptions: No Action insulin lispro [Humalog KwikPen Insulin] 100 unit/mL Insulin Pen 5 unit SUBCUT TID insulin glargine [Lantus U-100 Insulin] 100 unit/mL Solution 18 unit SUBCUT QPM Eliquis 5 mg tablet 5 mg PO BID Qty: 60 0RF divalproex [Depakote] 500 mg tablet,delayed release (DR/EC) 500 mg PO BID Qty: 60 0RF atorvastatin 10 mg Tablet 5 mg PO QHS metoprolol tartrate 25 mg Tablet 12.5 mg PO QHS Referrals / Follow Up: Amish Han MD [Primary Care Provider] - Disposition Disposition (needs filled in before D/C Order can be placed): Home, Self Care
[2022-05-27] MEDS: 0.9% Normal Saline 1,000 ML 15 ML IV (09:34)
[2022-05-27 09:56] LABS: Bedside Glucose 196 mg/dL (74-106)
[2022-05-27] MEDS: Cefazolin 2 GM in 0.9% Normal Saline 100 ML IV (10:56)
[2022-05-27] MEDS: Bupivacaine 0.25% 30 ML Vial (11:17)
[2022-05-27] MEDS: Heparin Injection (Vial) 5,000 UNIT/ML VIAL 5000 UNIT ×2 (11:17→11:32)
[2022-05-27] MEDS: Lidocaine 1% (20 ml mdv) 20 ML Vial (11:17)
[2022-05-27] MEDS: Protamine Sulfate 50 MG/5 ML Vial IV (12:01)
--- NOTE | 2022-05-27 12:13 | OP.PCM_ITS ---
Report of Operation Date of Procedure: 05/27/22 Pre-Operative Diagnosis: Need for arteriovenous hemodialysis access for hemodia lysis Post-Operative Diagnosis: Same Surgery/Procedure Performed:: Right forearm radiocephalic arteriovenous hemodialysis fistula creation Description of Surgical Findings:: Timeout informed consent was obtained. 62-year-old gentleman was taken to the operating placed on the table underwent monitored anesthesia care. Ancef 2 g given intravenously. The right upper extremity was sterilely prepped and draped. 1% lidocaine mixed 50-50 with 0.5% Marcaine was used as a local anesthetic. A total of 14 cc was used. Ultrasound mapping had been performed and slightly more proximal in the forearm at the site of venous branch Ventralex where I selected to make the fistula. Local was instilled a total of 14 cc a slightly oblique transverse incision was created sharp blunt dissection was used to dissect free the cephalic vein down to the branch point. Then sharp and blunt dissection was used to identify the radial artery it was cleared and elevated for at least 3 cm. Having achieved that the patient received 8000 units of heparin intravenously. The vein was ligated distally at the branch point with hemoclips and then it was spatulated at that branch point. Peripheral vascular clamps were placed on the radial artery 11 blade was used to make an arteriotomy which was extended with Jacobsen scissors. A end-to-side venous to arterial anastomosis was created with a running 7-0 Prolene. There was good antegrade and retrograde flow. The anastomosis was completed. Good hemostasis was intact. There was excellent flow throughout the vein. The hand was noted to be viable with good triphasic flow at the radial wrist. The wound was closed with a deep layer of interrupted 3-0 Vicryl and then a running subicular 4 Monocryl. Steri-Strips Telfa tape applied. Sponge and instrument and needle counts were reported to the surgeon to be correct. Specimens none. Drains none. Blood loss minimal. The patient was taken to the recovery area in satisfactory addition without apparent complication Harrison Rocha M.D., F.A.C.S. Surgeon: Harrison Rocha Type of Anesthesia: Local MAC Anesthesiologist: Yesi Morel
[2022-05-27 13:56] LABS: Bedside Glucose 188 mg/dL (74-106)
== END 2022-05-27 14:10 | disposition home or self-care (01) ==
LOC: SDC 08:29 → AC 08:30
PROVIDERS: PCP Family Medicine; Referring Provider Surgery; Visit Provider Surgery
PROC: (CPT 36821; principal; 2022-05-27 10:45)
DX: Z45.2 Encounter for adjustment and management of vascular access device (principal); I69.354 Hemiplegia and hemiparesis following cerebral infarction affecting left non-dominant side; Z99.2 Dependence on renal dialysis; I50.32 Chronic diastolic (congestive) heart failure; I13.0 Hypertensive heart and chronic kidney disease with heart failure and stage 1 through stage 4 chronic kidney disease, or unspecified chronic kidney disease; E11.22 Type 2 diabetes mellitus with diabetic chronic kidney disease; N18.4 Chronic kidney disease, stage 4 (severe); I48.91 Unspecified atrial fibrillation; Z79.4 Long term (current) use of insulin; E78.00 Pure hypercholesterolemia, unspecified; M19.90 Unspecified osteoarthritis, unspecified site; F17.220 Nicotine dependence, chewing tobacco, uncomplicated; Z79.01 Long term (current) use of anticoagulants; Z86.16 Personal history of COVID-19
CPT/HCPCS: 36821; 01844; 36415; 80048; 82962; 85027; 93005; J7040; J2405

== ENCOUNTER → 2022-06-18 | Outpatient (CLI) | payer MEDICARE, MEDICAID, SELFPAY ==
[2022-06-18 18:05] LABS: ALB/GLOB Ratio 0.9 RATIO (0.9-2.4); AST(SGOT) 15 U/L (15-37); Alanine Aminotransfer ALT/SGPT 18 U/L (16-61); Albumin, Serum 3.4 g/dL (3.2-5.0); Alkaline Phosphatase 97 U/L (45-117); Anion Gap 7 (5-15); BUN 15 mg/dL (7-18); BUN/Creat Ratio 10.3 RATIO (10-20); CPK Total, Creatine Kinase 112 U/L (39-308); Calcium,Total 7.9 mg/dL (8.5-10.1); Chloride 98 mmol/L (98-107); Creatinine, Serum 1.45 mg/dL (0.70-1.30); EST Glomerular Filtration Rate 52 mL/min (>60); Est Glom Filt Rate - Afr Amer 63 mL/min (>60); Ferritin 996 ng/mL (26-388); Globulin 3.7 g/dL (2.2-4.2); Glucose 104 mg/dL (74-106); Potassium 3.4 mmol/L (3.5-5.1); Protein, Total 7.1 g/dL (6.4-8.2); Sodium Level 138 mmol/L (136-145)
== END | disposition home or self-care (01) ==
LOC: MFPLAB 15:20
PROVIDERS: PCP Family Medicine; Referring Provider Family Medicine; Visit Provider Family Medicine
DX: M79.10 Myalgia, unspecified site (principal)
CPT/HCPCS: 36415; 80053; 82550; 82728; 83735

== ENCOUNTER 2022-06-24 15:22 | Outpatient (RCR) | payer MEDICARE, MEDICAID, SELFPAY | END 2022-06-24 19:00 | disposition home or self-care (01) | LOC: PT 15:22 | PROVIDERS: PCP Family Medicine; Referring Provider Family Medicine; Visit Provider Family Medicine | DX: Z86.73 Personal history of transient ischemic attack (TIA), and cerebral infarction without residual deficits (principal); R53.81 Other malaise ==

== ENCOUNTER → 2022-08-19 | Outpatient (CLI) | payer MEDICARE, MEDICAID, SELFPAY ==
[2022-08-19 12:21] LABS: Absolute Lymphocyte Count 1.23 X10^3/uL (0.83-4.51); Basophil# 0.04 X10^3/uL; Basophil% 0.8 % (0-1); Eosinophil# 0.21 X10^3/uL; Eosinophils% 4.3 % (0-5); Hematocrit 34.6 % (40-54); Hemoglobin 11.6 g/dL (13.0-16.5); Lymphocyte # 1.23 X10^3/ul (0.83-4.51); Lymphocyte % 25.3 % (19-41); Mean Corp Hgb Conc 33.5 g/dL (32-36); Mean Corpuscular Hgb 30.2 pg (27.0-32.0); Mean Corpuscular Volume 90.1 fL (80-94); Mean Platelet Vol. 11.3 fl (6.2-12.0); Monocyte# 0.36 X10^3/uL; Monocyte% 7.4 % (0-10); NRBC Flagged by Analyzer 0 % (0-5); Neutrophil # 3.03 X10^3/uL (2.7-7.7); Neutrophil % 62.2 % (47-70); Platelet Count 225 K/mm3 (150-450); RBC Distribution Width CV 13.2 % (11.6-14.6); RBC Distribution Width SD 42.8 fl (35.1-43.9); Red Blood Count 3.84 M/mm3 (4.6-6.2); White Blood Count 4.9 K/mm3 (4.4-11.0)
[2022-08-19 13:01] LABS: Hemoglobin A1c 7.6 % (3.8-5.6)
[2022-08-19 13:03] LABS: ALB/GLOB Ratio 1.2 RATIO (0.9-2.4); AST(SGOT) 11 U/L (15-37); Alanine Aminotransfer ALT/SGPT 17 U/L (16-61); Albumin, Serum 3.6 g/dL (3.2-5.0); Alkaline Phosphatase 87 U/L (45-117); Anion Gap 7 (5-15); BUN 58 mg/dL (7-18); BUN/Creat Ratio 13.1 RATIO (10-20); Calcium,Total 8.9 mg/dL (8.5-10.1); Chloride 102 mmol/L (98-107); Cholesterol 201 mg/dL (200); Creatinine, Serum 4.44 mg/dL (0.70-1.30); EST Glomerular Filtration Rate 14 mL/min (>60); Est Glom Filt Rate - Afr Amer 17 mL/min (>60); Glucose 296 mg/dL (74-106); High Density Lipoprotein 48 mg/dL; Potassium 4.5 mmol/L (3.5-5.1); Protein, Total 6.6 g/dL (6.4-8.2); Sodium Level 140 mmol/L (136-145); Thyroid Stim Hormone (TSH) 2.92 uIU/mL (0.358-3.74); Triglycerides 157 mg/dL; Very Low Density Lipoprotein 31 mg/dL (5-40)
== END | disposition home or self-care (01) ==
LOC: MFPLAB 10:25
PROVIDERS: PCP Family Medicine; Referring Provider Family Medicine; Visit Provider Family Medicine
DX: I48.91 Unspecified atrial fibrillation (principal); E11.9 Type 2 diabetes mellitus without complications
CPT/HCPCS: 36415; 80053; 80061; 83036; 83735; 84443; 85025

== ENCOUNTER 2022-09-15 00:55 | Emergency (ER) | payer MEDICARE, MEDICAID, SELFPAY ==
[2022-09-15 00:57] VITALS: BP 191/100; PULSE 78; RESP 16; TEMP 36.6; O2SAT 100; BMI 28.0
--- NOTE | 2022-09-15 01:31 | EKG12_ITS ---
Test Reason : CP Blood Pressure : / mmHG Vent. Rate : 082 BPM Atrial Rate : 082 BPM P-R Int : 122 ms QRS Dur : 084 ms QT Int : 394 ms P-R-T Axes : 041 -19 058 degrees QTc Int : 460 ms Normal sinus rhythm Normal ECG Confirmed by ARTHUR MONSON, YUMIKO ([id number]), primer expeditor and drier HANNAH BRAY ([id number]) on 09/16/2022 11:39:10 AM Referred By: BB Confirmed By:YUMIKO GIBSON MD
--- NOTE | 2022-09-15 01:32 | RAD_ITS ---
INDICATION: chest pain EXAMINATION/TECHNIQUE: X-RAY - XR Chest 2 Views COMPARISON: March 16, 2022. FINDINGS: LINES/DEVICES: Dual lumen right internal jugular central catheter with tip at the superior cavoatrial junction. LUNGS: Scattered subsegmental atelectasis. No consolidation, edema or effusion. No pneumothorax. MEDIASTINUM AND CARDIOVASCULAR STRUCTURES: Cardiac silhouette not enlarged. BONES AND SOFT TISSUES: Unremarkable. RAD/Chest PA and Lateral IMPRESSION: Right internal jugular catheter placement in good position without pneumothorax. Mild bilateral basilar atelectasis. Electronically Signed: Rickey Espinosa MD at 2:46 EST ,
--- NOTE | 2022-09-15 01:33 | ED.VIS.CHEST ---
HPI History of Present Illness Chief Complaint: Chest Pain Informant: patient Narrative Narrative: 2 days of constant left upper chest discomfort toward the shoulder. Nonpleuritic. Hurts more to move. He states he has felt shaky off-and-on. He denies any dyspnea or cough. He has had some chills but no fevers, he has checked his temperature multiple times. Denies any leg pain or swelling. He is anticoagulated. No bleeding from anywhere. He is a dialysis patient, he urinates, no changes there. He has been compliant with dialysis, his last one was the day before this past day (present 1 in the morning). No GI symptoms. He states he had a stroke affecting his left side and has been working out at the gym, he does not recall any injury to his left arm or chest that he can recall, he states he does mostly leg workouts to strengthen his ability to walk which he is able to do. [facility] Medical History Acute and chronic respiratory failure with hypoxia Ambulates with cane Arthritis Back pain Cardiology follow-up encounter CHF (congestive heart failure) Chronic kidney disease, stage 4 (severe) Dietary restriction Former smoker Heartburn High cholesterol History of atrial fibrillation History of echocardiogram History of pain when walking History of renal dialysis History of renal disease History of stress test HTN (hypertension) Injury of head and neck Insulin dependent diabetes mellitus Migraine headache Peripheral neuropathy Restless legs Seizures Stroke Syncope TIA (transient ischemic attack) Wears glasses Wears partial dentures Home Medications insulin glargine 100 unit/mL subcutaneous solution (Lantus U-100 Insulin) 18 unit subcut QPM 03/16/22 [History Last Taken Unknown] insulin lispro 100 unit/mL subcutaneous pen (Humalog KwikPen (U-100) Insulin) 5 unit subcut TID 03/16/22 [History Last Taken Unknown] apixaban 5 mg tablet (Eliquis) 5 mg PO BID #60 tabs 03/24/22 [Rx Last Taken 05/20/22] divalproex 500 mg tablet,delayed release (Depakote) 500 mg PO BID #60 tabs 03/24/22 [Rx Last Taken Unknown] atorvastatin 10 mg tablet 5 mg PO QHS 05/20/22 [History Last Taken Unknown] albuterol sulfate 90 mcg/actuation aerosol inhaler (Ventolin HFA) 2 puff inhalation Q6H PRN 08/24/22 [History Last Taken Unknown] metoprolol tartrate 25 mg tablet 12.5 mg PO BID 08/24/22 [History Last Taken Unknown] amlodipine 10 mg tablet 10 mg PO DAILY #30 tabs 09/15/22 [Rx Last Taken Unknown] Allergy/AdvReac Type Severity Reaction Status Date / Time hydrocodone bitartrate AdvReac Mild HYPER Verified 09/07/22 13:58 [From Vicodin] lisinopril AdvReac Other Verified 09/07/22 13:58 oxycodone AdvReac Other Verified 09/07/22 13:58 Family History Father Cancer Prostate Heart disease Mother Heart disease Diabetes Other COPD (chronic obstructive pulmonary disease) Surgical History History of rotator cuff surgery History of umbilical hernia repair Hx of arteriovenostomy for renal dialysis Hx of left cataract extraction Hx of right cataract extraction S/P arteriovenous (AV) fistula creation Status post foot surgery Social History household members: spouse and children number of children: 3 current occupational status: disabled Smoking Status: Never smoker Smokeless tobacco user: snuff second hand exposure: No alcohol intake: never substance use type: does not use what type of physical activity do you participate in: other details: health point frequency: 3-4 times per week alba/congregation: Other seatbelt use: always ROS ROS ED Constitutional Constitutional ED: Reports chills and sweats; Denies fever(s) Eyes Eyes: Denies change in vision or diplopia ENT ENT ED: Denies rhinorrhea or sore throat Cardiovascular Cardiovascular: Reports as per HPI and chest pain; Denies palpitations Respiratory/Chest Respiratory/Chest: Denies cough or dyspnea Gastrointestinal Gastrointestinal: Denies abdominal pain, diarrhea, nausea or vomiting Genitourinary Genitourinary ED: Denies dysuria or hematuria Musculoskeletal Musculoskeletal: Denies back pain or neck pain Integumentary Denies abscess or rash Neurologic Neurologic: Denies headache(s), paresthesias or weakness Psychiatric Psychiatric: Denies anxiety or suicidal thoughts EXAM Physical Exam Const Vital Signs: 09/15/22 00:57 09/15/22 01:58 09/15/22 02:37 Temperature 97.9 F Temperature Source Temporal Pulse Rate 78 86 Respiratory Rate 16 15 Blood Pressure 191/100 H 145/81 H Blood Pressure Mean 130 102 Pulse Ox 100 95 Oxygen Delivery Method Room Air Room Air Room Air Positive well nourished and well developed Constitutional Narrative: Well-appearing General Appearance ED: well developed and NAD HEENT Reports moist mucous membranes normocephalic and atraumatic Eyes PERRL and EOMs intact bilaterally Neck full ROM and supple Resp normal respiratory effort and clear to auscultation bilaterally Cardio regular rate, regular rhythm and no murmurs Rate: Negative for tachycardic GI non-tender and non-distended Auscultation: normoactive bowel sounds Palpation: soft Back/Spine no CVA tenderness General Back: other FROM Extremity normal to inspection and no calf tenderness General Extremety ED: Negative for edema, pulses abnormal or tenderness General Extremity: Negative for edema or pulses abnormal Neuro oriented x3, CN's II-XII intact bilaterally and no sensory deficits noted Sensorium / Orientation: awake and alert Motor Exam: strength 5/5 throughout Skin no rashes or lesions noted and no wounds MDM MDM MDM Narrative Medical decision making narrative: Reproducible pain with palpation in the left upper chest wall, his discomfort does not sound cardiac. He states he has been shaky without fevers, and his pressure is very high, this could be related. While working him up gave him hydralazine, this brought his pressure down nicely with systolics in the 140-150 range. His chest discomfort was resolved when I checked on him again. It seems that he is just on metoprolol and no other blood pressure medications. I reviewed his list. He does have chronic kidney disease, he is a dialysis patient other than that his blood work is unremarkable including high-sensitivity troponin in context of his chronic kidney disease. I do not think he needs further emergent work-up here in emergency department. Furthermore, I reviewed old notes from nephrology and cardiology. It appears that he has a history of noncompliance with medications, which led to him requiring dialysis catheter in the first place. Given all this, I think it would be reasonable to prescribe him amlodipine until he can follow-up (more appropriate than hydralazine or clonidine in a patient with a history of noncompliance). Lab Data Attestation: I reviewed the patient's lab results. Labs: Laboratory Results - last 24 hr 09/15/22 09/15/22 01:22 01:22 WBC 5.2 RBC 3.76 L Hgb 11.1 L Hct 33.3 L MCV 88.6 MCH 29.5 MCHC 33.3 RDW Std Deviation 40.2 RDW Coeff of Silvia 12.4 Plt Count 189 MPV 10.9 Immature Gran % (Auto) 0.200 Neut % (Auto) 61.1 Lymph % (Auto) 24.9 [place] % (Auto) 8.0 Eos % (Auto) 5.0 Baso % (Auto) 0.8 Absolute Neuts (auto) 3.2 Absolute Lymphs (auto) 1.30 Nucleated RBC % 0 Sodium 139 Potassium 4.0 Chloride 103 Carbon Dioxide 26.0 Anion Gap 10 BUN 50 H Creatinine 3.73 H Estim Creat Clear Calc 21.20 Est GFR (MDRD) Af Amer 21 L Est GFR (MDRD) Non-Af 18 L BUN/Creatinine Ratio 13.4 Glucose 209 H Calcium 8.3 L Troponin I High Sens 20 Radiography Chest X-Ray - ED: 2 View, Read by ED Physician, No Acute Disease and No Infiltrates Diagnostic Testing: Clinical Impression(s) from Imaging Studies Chest X-Ray 09/15/22 01:32 IMPRESSION: Right internal jugular catheter placement in good position without pneumothorax. Mild bilateral basilar atelectasis. Electronically Signed: Rickey Espinosa MD at 2:46 EST Reading Location ID and State: [facility] / [place] Tel , Service support , Rhythm Strip Rhythm Strip: Sinus Rhythm Rate: 80 Ectopy: None EKG Initial EKG: Attestation: I personally reviewed and interpreted this EKG as follows: Interpretation: Sinus Rhythm and No Acute Injury Pattern Comments: Normal EKG Discharge Plan Triage Chief Complaint: Chest Pain ED Provider: Parminder Estrada Dx/Rx/DC Orders Clinical Impression: Accelerated hypertension, Left-sided chest wall pain, End stage renal disease Instructions: Hypertension and Kidney Disease Prescriptions: New amlodipine 10 mg tablet 10 mg PO DAILY Qty: 30 0RF No Action albuterol sulfate [Ventolin HFA] 90 mcg/actuation HFA aerosol inhaler 2 puff inhalation Q6H PRN metoprolol tartrate 25 mg tablet 12.5 mg PO BID insulin lispro [Humalog KwikPen Insulin] 100 unit/mL Insulin Pen 5 unit SUBCUT TID insulin glargine [Lantus U-100 Insulin] 100 unit/mL Solution 18 unit SUBCUT QPM Eliquis 5 mg tablet 5 mg PO BID Qty: 60 0RF divalproex [Depakote] 500 mg tablet,delayed release (DR/EC) 500 mg PO BID Qty: 60 0RF atorvastatin 10 mg Tablet 5 mg PO QHS Primary Care Provider: Amish Han Referrals: Amish Han MD [Primary Care Provider] - Andie Weiss MD [Med Staff - Consulting] - As soon as possible (for blood pressure recheck/reeval) Disposition Disposition: Home, Self Care
[2022-09-15 01:56] LABS: Absolute Neutrophil Count 3.2 X10^3/uL (2.0-7.7); Basophil# 0.04 X10^3/uL; Basophil% 0.8 % (0-1); Eosinophil# 0.26 X10^3/uL; Hematocrit 33.3 % (40-54); Hemoglobin 11.1 g/dL (13.0-16.5); Lymphocyte % 24.9 % (19-41); Mean Corp Hgb Conc 33.3 g/dL (32-36); Mean Corpuscular Hgb 29.5 pg (27.0-32.0); Mean Corpuscular Volume 88.6 fL (80-94); Mean Platelet Vol. 10.9 fl (6.2-12.0); Monocyte# 0.42 X10^3/uL; NRBC Flagged by Analyzer 0 % (0-5); Neutrophil % 61.1 % (47-70); Platelet Count 189 K/mm3 (150-450); RBC Distribution Width CV 12.4 % (11.6-14.6); RBC Distribution Width SD 40.2 fl (35.1-43.9); Red Blood Count 3.76 M/mm3 (4.6-6.2); White Blood Count 5.2 K/mm3 (4.4-11.0)
[2022-09-15] MEDS: hydrALAZINE 20 MG/ML Vial IV (02:10)
[2022-09-15 02:21] LABS: Anion Gap 10 (5-15); BUN 50 mg/dL (7-18); BUN/Creat Ratio 13.4 RATIO (10-20); Calcium,Total 8.3 mg/dL (8.5-10.1); Chloride 103 mmol/L (98-107); Creatinine, Serum 3.73 mg/dL (0.70-1.30); EST Glomerular Filtration Rate 18 mL/min (>60); Est Glom Filt Rate - Afr Amer 21 mL/min (>60); Glucose 209 mg/dL (74-106); Sodium Level 139 mmol/L (136-145); Troponin-I HS 20 pg/mL (3.0-78.0)
[2022-09-15 02:37] VITALS: BP 145/81; PULSE 86; RESP 15; O2SAT 95
[2022-09-15 04:00] VITALS: BP 56/39; PULSE 28; RESP 15
[2022-09-15 04:14] VITALS: BP 156/88; O2SAT 999
[2022-09-15 04:18] VITALS: BP 91/56; PULSE 40; RESP 30; O2SAT 90
== END 2022-09-15 04:24 | disposition home or self-care (01) ==
PROVIDERS: Emergency Provider Emergency Medicine; PCP Family Medicine; Visit Provider Emergency Medicine
DX: I13.2 Hypertensive heart and chronic kidney disease with heart failure and with stage 5 chronic kidney disease, or end stage renal disease (principal); Z99.2 Dependence on renal dialysis; I50.9 Heart failure, unspecified; N18.6 End stage renal disease; R07.89 Other chest pain; Z86.73 Personal history of transient ischemic attack (TIA), and cerebral infarction without residual deficits
CPT/HCPCS: 71046; 80048; 84484; 85025; 93005; 96374; 99285; A4216

== ENCOUNTER → 2022-09-16 | Outpatient (CLI) | payer MEDICARE, MEDICAID, SELFPAY ==
--- NOTE | 2022-09-16 14:23 | AVDS_ITS ---
Reason For Study: Check fistula RIGHT Inflow, 133.1/90.3 cm/sec. Inflow, 419.8 ml/min. Prox anastomosis, 448.1/323.7 cm/sec. Prox anastomosis, 1292 ml/min. Prox graft, 528/365 cm/sec. Prox graft, 1256 ml/min. Mid graft, 124.5/81.5 cm/sec. Mid graft, 553.4 ml/min. Dist graft, 91.6/59.6 cm/sec. Distal graft, 529.3 ml/min. Outflow, 98.4/70.8 cm/sec. Outflow, 552.7 ml/min. Preliminary report given to Nahomy MARTINEZ. VL/AV Fistula/Dialysis Graft Scan Interpretation Summary Normal diameter and flow of the proximal right radiocephalic arteriovenous hemo dialysis fistula. Distally however the outflow dropped significantly and velocity and volume flow . Clinical correlation or additional imaging would be appropriate. Ordering Physician: Fannie Cortez Referring Physician: Amish Han Performed By: Cathy Bains RVT
== END | disposition home or self-care (01) ==
LOC: CVS 14:23
PROVIDERS: PCP Family Medicine; Referring Provider Physician Assistant; Visit Provider Physician Assistant
DX: T82.898A Other specified complication of vascular prosthetic devices, implants and grafts, initial encounter (principal); X58.XXXA Exposure to other specified factors, initial encounter; Z98.890 Other specified postprocedural states
CPT/HCPCS: 93990

== ENCOUNTER → 2022-09-17 | Day surgery (SDC) | payer MEDICARE, MEDICAID, SELFPAY ==
[2022-09-16 16:43] LABS: Absolute Lymphocyte Count 1.46 X10^3/uL (0.83-4.51); Absolute Neutrophil Count 3.2 X10^3/uL (2.0-7.7); Basophil# 0.03 X10^3/uL; Basophil% 0.6 % (0-1); Eosinophil# 0.31 X10^3/uL; Eosinophils% 5.7 % (0-5); Hematocrit 30.1 % (40-54); Hemoglobin 10.2 g/dL (13.0-16.5); Lymphocyte # 1.46 X10^3/ul (0.83-4.51); Mean Corp Hgb Conc 33.9 g/dL (32-36); Mean Corpuscular Volume 88.5 fL (80-94); Mean Platelet Vol. 10.8 fl (6.2-12.0); Monocyte# 0.43 X10^3/uL; NRBC Flagged by Analyzer 0 % (0-5); Neutrophil # 3.16 X10^3/uL (2.7-7.7); Neutrophil % 58.5 % (47-70); Platelet Count 185 K/mm3 (150-450); RBC Distribution Width CV 12.6 % (11.6-14.6); RBC Distribution Width SD 41.2 fl (35.1-43.9); White Blood Count 5.4 K/mm3 (4.4-11.0)
[2022-09-16 17:05] LABS: Anion Gap 10 (5-15); BUN 66 mg/dL (7-18); Calcium,Total 8.5 mg/dL (8.5-10.1); Chloride 103 mmol/L (98-107); EST Glomerular Filtration Rate 15 mL/min (>60); Est Glom Filt Rate - Afr Amer 18 mL/min (>60); Glucose 156 mg/dL (74-106); Potassium 4.2 mmol/L (3.5-5.1); Sodium Level 142 mmol/L (136-145)
--- NOTE | 2022-09-17 12:32 | PCM.HP.BLA ---
History and Physical Date of Admission: 09/17/22 Intake Visit Reasons:?fistula problems Chief Complaint: fistula problems Allergies hydrocodone bitartrate [From Vicodin] Adverse Reaction (Mild, Verified 09/16/22 15:30) HYPERlisinopril Adverse Reaction (Verified 09/16/22 15:30) Otheroxycodone Adverse Reaction (Verified 09/16/22 15:30) Other Medications insulin glargine 100 unit/mL subcutaneous solution (Lantus U-100 Insulin) 18 unit subcut QPM 03/16/22 [History Confirmed 09/16/22] insulin lispro 100 unit/mL subcutaneous pen (Humalog KwikPen (U-100) Insulin) 5 unit subcut TID 03/16/22 [History Confirmed 09/16/22] apixaban 5 mg tablet (Eliquis) 5 mg PO BID #60 tabs 03/24/22 [Rx Confirmed 09/16/22] divalproex 500 mg tablet,delayed release (Depakote) 500 mg PO BID #60 tabs 03/24/22 [Rx Confirmed 09/16/22] atorvastatin 10 mg tablet 5 mg PO QHS 05/20/22 [History Confirmed 09/16/22] albuterol sulfate 90 mcg/actuation aerosol inhaler (Ventolin HFA) 2 puff inhalation Q6H PRN 08/24/22 [History Confirmed 09/16/22] metoprolol tartrate 25 mg tablet 12.5 mg PO BID 08/24/22 [History Confirmed 09/16/22] amlodipine 10 mg tablet 10 mg PO DAILY #30 tabs 09/15/22 [Rx Confirmed 09/16/22] PFSH Medical History? Acute and chronic respiratory failure with hypoxia Ambulates with cane Arthritis Back pain Cardiology follow-up encounter CHF (congestive heart failure) Chronic kidney disease, stage 4 (severe) Dietary restriction Former smoker Heartburn High cholesterol History of atrial fibrillation History of echocardiogram History of pain when walking History of renal dialysis History of renal disease History of stress test HTN (hypertension) Injury of head and neck Insulin dependent diabetes mellitus Migraine headache Peripheral neuropathy Restless legs Seizures Stroke Syncope TIA (transient ischemic attack) Wears glasses Wears partial dentures Surgical History? History of rotator cuff surgery History of umbilical hernia repair Hx of arteriovenostomy for renal dialysis Hx of left cataract extraction Hx of right cataract extraction S/P arteriovenous (AV) fistula creation Status post foot surgery Family History? Father Cancer ?? ? Prostate Heart diseaseMother Heart disease DiabetesOther COPD (chronic obstructive pulmonary disease) Social History? household members:? spouse and children number of children:? 3 current occupational status:? disabled Smoking Status:? Never smoker Smokeless tobacco user:? snuff second hand exposure:? No alcohol intake:? never substance use type:? does not use what type of physical activity do you participate in:? other details: health point frequency:? 3-4 times per week alba/taoism:? Other seatbelt use:? always HPI HPI HPI: Patient is a 62 y/o M I am following for problem with dialysis access. Patient was evaluated by myself last week for pain at the wrist during dialysis. Patient states the dialysis infiltrates his fistula each time he has dialysis. He does not allow the dialysis center to use the fistula because of the infiltration. Patient continues to have chest catheters which he dialyzes through. Dialysis center contacted our office today noting they are continuing to have the same problems with the fistula. Patient's fistula was created on 05/27/[address] Rocha. Patient is on Eliquis for A fib. Patient took his morning dose today. ROS General General: Yes fatigue; No weight change, appetite, colon cancer, breast cancer or weakness HEENT HEENT: Yes eye surgery; No difficulty swallowing, eye injury, swollen glands or hoarseness Endo Endocrine: Yes diabetes mellitus; No thyroid disease, thyroid cancer, Hair loss, heat intolerance or cold intolerance Skin Skin: No rash or changing moles Breast Breast: No left breast lump, right breast lump, nipple discharge, breast pain, abnormal mammogram, abnormal US or breast enlargement Musc Musculoskeletal: Yes back problems and arthritis; No rheumatoid arthritis, gout or joint pain Cardio Cardiovascular: Yes heart disease and atrial fibrillation; No murmur, pacemaker, high blood pressure, heart attack, heart stent, palpitations, shortness of breat with exertion or chest pain Psych Psychiatric: No depression, anxiety or hearing voices Resp Respiratory: No shortness of breath, No sleep apnea, No cough, No COPD, No asthma, No emphysema and No wheezing Mario Hematologic: No blood thinners, No blood disorders, No bleeding, No anemia and No blood clots Neuro Neurologic: No system reviewed and no additional complaints, except as documented, No as per HPI, No abnormal gait, No abnormal hearing, No abnormal movements, No abnormal speech, No behavioral changes, No burning sensations, No confusion, No convulsions, No disequilibrium, No dizziness, No localized weakness, No frequent falls, No headache(s), No lack of coordination, No loss of vision, No memory loss, No numbness, No other visual disturbances, No radicular pain, No restless legs, No sensory deficit, No syncope, No tingling, No tremor(s), No weakness and Yes other (Stroke) Exam Const General: cooperative, healthy appearing, comfortable and no acute distress [facility] Head: normal to inspection Eyes General: appearance normal, both eyes and all related structures Neck Neck: normal visual inspection Neck mass: No Resp Effort & Inspection: normal respiratory effort Auscultation: clear to auscultation bilaterally Cardio Rate: regular rate Rhythm: regular rhythm GI Inspection: normal to inspection Skin General: no rashes or lesions noted Neuro General: no focal motor deficits Extrem Other: Left forearm AV fistula- moderate amount of healing ecchymosis noted from infiltration. Fistula with good pulse, bruit and thrill. Fistula seems on the smaller side which may be the difficulty with access. Psych Appearance: grossly normal Affect: normal affect Assessment and Plan Assessment and Plan (1) Problem with dialysis access: ?Status:?Acute ?Plan: Patient's fistula sounds as though it has matured well, however may be on the smaller side. I have recommended the patient hold his evening dose of Eliquis and not take the Eliquis tomorrow morning. Dr. Rocha will plan to perform a right forearm fistulogram without sedation. Patient is not able to find a ride in such short notice. Procedure details, risks and benefits have been explained to the patient. I had patient obtain a fistula duplex which demonstrated some scar tissue however no other findings were noted. Patient will obtain a CBC and BMP today. I have examined the patient and the H&P has been reviewed. There are no clinical changes since date of exam. Harrison Rocha M.D., F.A.C.S.
--- NOTE | 2022-09-17 13:47 | PCM.OPRPT ---
Report of Operation Date of Procedure: 09/17/22 Pre-Operative Diagnosis: Difficulty with access right forearm radiocephalic arteriovenous hemodialysis fistula Post-Operative Diagnosis: 70% proximal fistula venous stenosis Surgery/Procedure Performed:: Right upper extremity fistulogram with 5 x 2 Powerflex angioplasty and 6 x 4 Powerflex angioplasty proximal fistula Description of Surgical Findings:: Timeout informed consent was obtained 62-year-old gentleman is taken to the special procedures lab placed on the table throughout the procedure he received 50 mcg of fentanyl and 2 mg of Versed is intravenous sedation. The right extremity was sterilely prepped and draped. Ultrasound was used to identify the cephalic vein closer to the antecubital space. 2% lidocaine was instilled as a local anesthetic. Throughout the procedure a total of 2 cc was used. Using ultrasound micropuncture needle was inserted retrograde with flow micropuncture wire 6 [place] short sheath dilator. Using initially an 035 angled Glidewire and 4 [place] glide cath gain access to the arterial anastomosis and radial artery distally. I placed a 5 x 2 Powerflex balloon and performed balloon angioplasty of the anastomosis. Then withdrew the balloon and used a 4 [place] IM catheter to get retrograde access into the radial artery proximal to the anastomosis I replaced the 5 x 2 Powerflex balloon performed balloon angioplasty of the inflow to the fistula. Additionally there was evidence of about 3 to 4 cm from the anastomosis of a relatively short area of venous stenosis. I initially placed the 5 x 2 Powerflex balloon and then placed a 6 x 4 Powerflex balloon performed balloon angioplasty up to 15 jesus of pressure. The patient tolerated the procedure well. The balloon was removed images demonstrated improvement in the overall diameter of the fistula. Images were performed to complete the upper arm and outflow The patient has right forearm radiocephalic arteriovenous dialysis fistula. The anastomosis was gently treated with a 5 x 2 balloon to further improve inflow. There was proximal venous stenosis about 3 cm from the anastomosis felt to be approximately 70% which was resolved after 6 x 4 angioplasty. Outflow of the remainder of the forearm upper arm and central venous outflow was widely patent. There is evidence of a right internal jugular tunneled dialysis catheter. It is of note that in the proximal third of the forearm there is a reasonably dominant sidebranch that takes a little medially. Impression successful right extremity fistulogram and angioplasty with improved flow based upon imaging and based upon palpable thrill. Harrison Rocha M.D., F.A.C.S. Surgeon: Harrison Rocha Type of Anesthesia: Local
== END | disposition home or self-care (01) ==
PROVIDERS: Physician Assistant; PCP Family Medicine; Visit Provider Surgery
DX: T82.858A Stenosis of other vascular prosthetic devices, implants and grafts, initial encounter (principal); Z99.2 Dependence on renal dialysis; E11.22 Type 2 diabetes mellitus with diabetic chronic kidney disease; E11.40 Type 2 diabetes mellitus with diabetic neuropathy, unspecified; N18.4 Chronic kidney disease, stage 4 (severe); I48.91 Unspecified atrial fibrillation; Z79.4 Long term (current) use of insulin; I12.9 Hypertensive chronic kidney disease with stage 1 through stage 4 chronic kidney disease, or unspecified chronic kidney disease; X58.XXXA Exposure to other specified factors, initial encounter; E78.00 Pure hypercholesterolemia, unspecified; Z79.01 Long term (current) use of anticoagulants; Z79.899 Other long term (current) drug therapy; Z86.73 Personal history of transient ischemic attack (TIA), and cerebral infarction without residual deficits; Z87.891 Personal history of nicotine dependence
CPT/HCPCS: 36415; 36902; 76937; 80048; 85025; 99152; 99153; Q9967; C1725

== ENCOUNTER → 2022-09-30 | Outpatient (CLI) | payer MEDICARE, MEDICAID, SELFPAY ==
--- NOTE | 2022-09-30 09:47 | CDU_ITS ---
Reason For Study: Stroke in December 2021 Rt. Velocities/BP Lt. Velocities/BP Prox CCA 54.1/15.4 cm/sec. Prox CCA 79.7/20.4 cm/sec. Mid CCA 59.8/17.3 cm/sec. Mid CCA 74/16.3 cm/sec. Dist CCA 65.5/19.2 cm/sec. Dist CCA 82.6/24.9 cm/sec. Prox ICA 93.7/26.1 cm/sec. Prox ICA 169.7/42.4 cm/sec. Mid ICA 152.1/35.8 cm/sec. Mid ICA 115.6/35.6 cm/sec. Dist ICA 113.8/27.9 cm/sec. Dist ICA 99.2/29.8 cm/sec. Rt. ICA/CCA = 2.54. Lt. ICA/CCA = 2.15. Prox ECA 115.6/11.5 cm/sec. Prox ECA 135.7/9.7 cm/sec. Rt. Vert. 58.6/16.8 cm/sec. Lt. Vert. 57.2/20.6 cm/sec. Right Extracranial There is heterogeneous, irregular atherosclerotic plaque noted in the right common carotid artery. There is heterogeneous, irregular atherosclerotic plaque noted in the right internal carotid artery. There is intimal thickening but no significant atherosclerotic plaque noted in the right external carotid artery. Antegrade flow is noted in the right vertebral artery. Left Extracranial There is homogeneous, smooth atherosclerotic plaque noted in the left common carotid artery. There is heterogeneous, irregular atherosclerotic plaque noted in the left internal carotid artery. There is intimal thickening but no significant atherosclerotic plaque noted in the left external carotid artery. Antegrade flow is noted in the left vertebral artery. Procedure Carotid Duplex 35065. This is a Carotid Duplex examination using B-mode, color flow and specral Doppler. Exam performed in department. VL/Carotid Duplex Ultrasound Interpretation Summary Irregular plaque at the proximal right internal carotid artery with 50 to 69% s tenosis Less than 50% stenosis right external carotid artery Irregular plaque at the proximal left internal carotid artery with 50 to 69% st enosis Less than 50% stenosis left external carotid artery Patent and antegrade vertebral arteries bilaterally Slight progression of bilateral internal carotid disease from the previous exam ination of January 05, 2022 Ordering Physician: Philip Carrasco Referring Physician: Amish Han Performed By: Cathy Bains RVT
== END | disposition home or self-care (01) ==
PROVIDERS: PCP Family Medicine; Referring Provider Psychiatry & Neurology Neurology; Visit Provider Psychiatry & Neurology Neurology
DX: R09.89 Other specified symptoms and signs involving the circulatory and respiratory systems (principal); I69.30 Unspecified sequelae of cerebral infarction
CPT/HCPCS: 93880

== ENCOUNTER 2022-12-02 15:11 | Emergency (ER) | payer MEDICARE, MEDICAID, SELFPAY ==
[2022-12-02 15:12] VITALS: BP 182/100; PULSE 88; RESP 18; TEMP 36.1; O2SAT 96; BMI 26.9
--- NOTE | 2022-12-02 16:17 | ED.RN ---
PATIENT IS REFUSING BLOOD WORK/IV TESTING, STATES THEY CAN NEVER GET MY VEINS AND THEY ROLE AND YOU CANNOT USE MY DIALYSIS ARM. CONTINUES TO REFUSE BLOOD TESTING AFTER EDUCATION OF REASON WE ARE TESTING THE BLOOD. DR. GOLDMAN AND LISSY, RN NOTIFIED.
--- NOTE | 2022-12-02 16:32 | RAD_ITS ---
EXAM: XR LEFT FOOT COMPLETE, 3 OR MORE VIEWS CLINICAL INDICATION: pain TECHNIQUE: Frontal, lateral and oblique views of the left foot. This report was created using [employer] report generation technology. COMPARISON: 07.04.18 FINDINGS: BONES/JOINTS: There is a calcaneal spur. No acute fracture. No subluxation. Normal alignment. Preservation of the joint space. No sclerotic or destructive changes observed. SOFT TISSUES: Unremarkable. No soft tissue swelling or gas. No radiopaque foreign body. RAD/Foot min 3 Views IMPRESSION: No acute findings in the left foot. Electronically Signed: José Luis Padilla MD at 17:05 EDT ,
--- NOTE | 2022-12-02 16:35 | RAD_ITS ---
EXAM: XR RIGHT FOOT COMPLETE, 3 OR MORE VIEWS CLINICAL INDICATION: pain TECHNIQUE: Frontal, lateral and oblique views of the right foot. This report was created using [employer] report generation technology. COMPARISON: 05.11.21 FINDINGS: BONES/JOINTS: There is a calcaneal spur. Other degenerative findings of the talonavicular joint. No acute fracture. No subluxation. Normal alignment. No sclerotic or destructive changes observed. SOFT TISSUES: Unremarkable. No soft tissue swelling or gas. No radiopaque foreign body. RAD/Foot min 3 Views IMPRESSION: Other degenerative findings of the talonavicular joint. Electronically Signed: José Luis Padilla MD at 17:05 EDT ,
--- NOTE | 2022-12-02 18:52 | ED.VIS.LOWEX ---
HPI History of Present Illness HPI Narrative: Presents with bilateral foot pain that has been getting worse over the last 4 days. Patient states it is gradually getting worse. Patient describes it as stabbing and throbbing. Patient states he has been putting topical cream on his feet with minimal relief. Patient denies any paresthesias or weakness. Patient denies any trauma or injury. Patient denies any fevers or chills. Patient denies any redness or swelling. Chief Complaint: Lower Extremity Injury Onset/Context/Timing Onset: Days (4) Context: Gradual Onset Timing: Continuous Quality of Pain: Stabbing and Throbbing Location: Bilateral feet Worsened by: Nothing Relieved by: Topical cream Associated Symptoms Associated Symptoms: Negative for Parasthesia, Weakness or Loss of Funtion PFSH PFS Medical History Acute and chronic respiratory failure with hypoxia Ambulates with cane Arthritis Back pain Cardiology follow-up encounter CHF (congestive heart failure) Chronic kidney disease, stage 4 (severe) Dietary restriction Former smoker Heartburn High cholesterol History of atrial fibrillation History of echocardiogram History of pain when walking History of renal dialysis History of renal disease History of stress test HTN (hypertension) Injury of head and neck Insulin dependent diabetes mellitus Migraine headache Peripheral neuropathy Restless legs Seizures Stroke Syncope TIA (transient ischemic attack) Wears glasses Wears partial dentures Home Medications insulin glargine 100 unit/mL subcutaneous solution (Lantus U-100 Insulin) 18 unit subcut QPM 03/16/22 [History Last Taken Unknown] insulin lispro 100 unit/mL subcutaneous pen (Humalog KwikPen (U-100) Insulin) 5 unit subcut TID 03/16/22 [History Last Taken Unknown] apixaban 5 mg tablet (Eliquis) 5 mg PO BID #60 tabs 03/24/22 [Rx Last Taken 09/16/22] atorvastatin 10 mg tablet 5 mg PO QHS 05/20/22 [History Last Taken Unknown] albuterol sulfate 90 mcg/actuation aerosol inhaler (Ventolin HFA) 2 puff inhalation Q6H PRN Wheezing 08/24/22 [History Last Taken Unknown] metoprolol tartrate 25 mg tablet 12.5 mg PO BID 08/24/22 [History Last Taken Unknown] amlodipine 10 mg tablet 10 mg PO DAILY #30 tabs 09/15/22 [Rx Last Taken 09/17/22] divalproex 500 mg tablet,delayed release (Depakote) 500 mg PO BID #60 tabs 09/26/22 [Rx Last Taken Unknown] tramadol 50 mg tablet 50 mg PO Q4H PRN PRN Pain 3 days #20 tabs 12/02/22 [Rx Last Taken Unknown] Allergy/AdvReac Type Severity Reaction Status Date / Time hydrocodone bitartrate AdvReac Mild HYPER Verified 12/02/22 15:13 [From Vicodin] lisinopril AdvReac Other Verified 12/02/22 15:13 oxycodone AdvReac Other Verified 12/02/22 15:13 Family History Father Cancer Prostate Heart disease Mother Heart disease Diabetes Other COPD (chronic obstructive pulmonary disease) Surgical History History of rotator cuff surgery History of umbilical hernia repair Hx of arteriovenostomy for renal dialysis Hx of left cataract extraction Hx of right cataract extraction S/P arteriovenous (AV) fistula creation Status post foot surgery Social History household members: spouse and children number of children: 3 current occupational status: disabled Smoking Status: Never smoker Smokeless tobacco user: snuff second hand exposure: No alcohol intake: never substance use type: does not use what type of physical activity do you participate in: other details: health point frequency: 3-4 times per week alba/baptism: Other seatbelt use: always ROS ROS ED Constitutional Constitutional ED: Denies chills or fever(s) Eyes Eyes: Reports blurry vision; Denies diplopia ENT ENT ED: Denies rhinorrhea or sore throat Cardiovascular Cardiovascular: Denies chest pain or palpitations Respiratory/Chest Respiratory/Chest: Denies cough or dyspnea Gastrointestinal Gastrointestinal: Reports nausea; Denies vomiting Genitourinary Genitourinary ED: Denies dysuria or hematuria Musculoskeletal Musculoskeletal: Denies back pain or neck pain Integumentary Denies abscess or rash Neurologic Neurologic: Reports headache(s); Denies weakness Allergic/Immunologic Allergic/Immunologic ED: Denies mouth swelling or urticaria EXAM Physical Exam Const Vital Signs: 12/02/22 15:12 Temperature 97 F L Temperature Source Temporal Pulse Rate 88 Respiratory Rate 18 Blood Pressure 182/100 H Blood Pressure Mean 127 Pulse Ox 96 Oxygen Delivery Method Room Air Positive well nourished and well developed General Appearance ED: well developed HEENT Reports moist mucous membranes Neck supple and no JVD Extremity Extremity Narrative: There is tenderness over the first metatarsals and great toes bilaterally. There is no edema or ecchymosis. There is no bony crepitance or step-off. There is no erythema or warmth. Range of motion was limited in all motions of the MP and IP joints of the great toes bilaterally secondary to pain. Sensation was intact to light touch bilaterally in all digits. Capillary refill was less than 2 seconds in all digits. Pedal pulses are equal bilaterally. General Extremety ED: Yes tenderness; Negative for edema General Extremity: Negative for edema Neuro oriented x3, CN's II-XII intact bilaterally and no sensory deficits noted Sensorium / Orientation: alert Motor Exam: strength 5/5 throughout Psych mental status grossly normal Skin no rashes or lesions noted MDM MDM MDM Narrative Medical decision making narrative: Since there was no trauma or injury, I felt that this could be due to an inflammatory arthritis. Therefore, labs were ordered. CBC was ordered to assess for leukocytosis and anemia. Basic metabolic profile was ordered to assess for electrolyte abnormality and renal function. Sed rate and CRP were ordered for inflammatory markers. Uric acid was ordered to assess for gout. Patient refused any lab work. Patient states he just needs an x-ray of his feet. X-rays of the right foot were obtained to assess for fracture. X-rays of the left foot were obtained to assess for fracture. Radiography Diagnostic Testing: Clinical Impression(s) from Imaging Studies Foot X-Ray 12/02/22 16:32 IMPRESSION: No acute findings in the left foot. Electronically Signed: José Luis Padilla MD at 17:05 EDT , Foot X-Ray 12/02/22 16:35 IMPRESSION: Other degenerative findings of the talonavicular joint. Electronically Signed: José Luis Padilla MD at 17:05 EDT , X-rays of the left foot were obtained. There are 3 views. On my independent interpretation, there is no acute fracture. There is no dislocation. There is no soft tissue swelling. Radiologist also interpreted the x-rays and agrees. X-rays of the right foot were obtained. There are 3 views. On my independent interpretation, there is no acute fracture. There is no dislocation. There are some mild degenerative changes noted. There is no soft tissue swelling. Radiologist also interpreted the x-rays and agrees. Treatment and Re-Evaluation Narrative: Patient was advised of his findings. Patient was given a prescription for short course of tramadol. Patient was instructed to follow-up with his primary care physician in 5 to 7 days. Patient understood and was agreeable with the plan. All questions were answered. Discharge Plan Triage Chief Complaint: Lower Extremity Injury ED Provider: Arden Prado Dx/Rx/DC Orders Clinical Impression: Bilateral foot pain, Chronic kidney disease, stage 4 (severe) Instructions: ED Pain, Acute, Uncertain Cause Prescriptions: New tramadol 50 mg tablet 50 mg PO Q4H PRN PRN (Reason: Pain) 3 Days Qty: 20 0RF No Action albuterol sulfate [Ventolin HFA] 90 mcg/actuation HFA aerosol inhaler 2 puff inhalation Q6H PRN (Reason: Wheezing) metoprolol tartrate 25 mg tablet 12.5 mg PO BID divalproex [Depakote] 500 mg tablet,delayed release (DR/EC) 500 mg PO BID Qty: 60 5RF insulin lispro [Humalog KwikPen Insulin] 100 unit/mL Insulin Pen 5 unit SUBCUT TID insulin glargine [Lantus U-100 Insulin] 100 unit/mL Solution 18 unit SUBCUT QPM Eliquis 5 mg tablet 5 mg PO BID Qty: 60 0RF atorvastatin 10 mg Tablet 5 mg PO QHS amlodipine 10 mg tablet 10 mg PO DAILY Qty: 30 0RF Primary Care Provider: Amish Han Referrals: Amish Han MD [Primary Care Provider] - 3-5 Days Disposition Disposition: Home, Self Care
== END 2022-12-02 19:12 | disposition home or self-care (01) ==
PROVIDERS: Emergency Provider Emergency Medicine; PCP Family Medicine; Visit Provider Emergency Medicine
DX: M79.671 Pain in right foot (principal); I13.0 Hypertensive heart and chronic kidney disease with heart failure and stage 1 through stage 4 chronic kidney disease, or unspecified chronic kidney disease; I50.9 Heart failure, unspecified; E11.22 Type 2 diabetes mellitus with diabetic chronic kidney disease; N18.4 Chronic kidney disease, stage 4 (severe); Z79.4 Long term (current) use of insulin; M79.672 Pain in left foot; E78.00 Pure hypercholesterolemia, unspecified; Z79.899 Other long term (current) drug therapy; Z86.73 Personal history of transient ischemic attack (TIA), and cerebral infarction without residual deficits; Z87.891 Personal history of nicotine dependence
CPT/HCPCS: 73630; 99282; A4216

== ENCOUNTER → 2023-01-24 | Outpatient (CLI) | payer MEDICARE, MEDICAID, SELFPAY ==
--- NOTE | 2023-01-24 09:44 | NEURO_ITS ---
NCS and/or EMG Patient Report Ordering Doctor: Philip Carrasco DATE OF SERVICE: 01/24/23 Findings: Nerve conduction studies were performed in the right and left upper extremities. The right median motor study recording the abductor pollicis brevis showed a low amplitude, prolonged distal latency and slowed conduction velocity. The right ulnar motor study recording the abductor digiti minimi showed a reduced amplitude, borderline distal latency and borderline conduction velocity. No conduction block or focal slowing was present across the elbow. The right median sensory response recording digit two was absent. The right ulnar sensory response recording digit five was absent. The right radial sensory response recording over the extensor snuff box showed a reduced amplitude, prolonged latency and slowed conduction velocity. The left median motor study recording the abductor pollicis brevis showed a re duced amplitude, prolonged distal latency and slowed conduction velocity. The left ulnar motor study recording the abductor digiti minimi showed a reduced amplitude, prolonged distal latency and slowed conduction velocity. No conduction block or focal slowing was present across the elbow. The left median sensory response recording digit two was absent. The left ulnar sensory response recording digit five was absent. The left radial sensory response recording over the extensor snuff box was absent. Right median-ulnar lumbrical / interosseous motor latencies showed a prolonged median latency compared to the ulnar. Left median-ulnar lumbrical / interosseous motor latencies showed a prolonged median latency compared to the ulnar. Needle EMG of the left upper extremity muscles was performed, but limited due to the patient being on therapeutic anticoagulation. Active denervation was seen in the distal muscles. Motor units were large, long, and polyphasic with reduce recruitment in the intrinsic hand muscles. Proximal motor unit morphology, activation and recruitment patterns were normal. Needle EMG of the right upper extremity was deferred at the request of the patient. Impression: This is a markedly abnormal, but limited study. There is electrophysiologic evidence most consistent with a severe, diffuse, active, axonal, sensorimotor peripheral polyneuropathy. For confirmation, testing of the lower extremities could be considered. In addition, there is electrophysiologic evidence of median neuropathy across the wrist on both sides. Car Mc D.O. Multi Select Codes Neurology Neurology Interp Codes: 85516-51 Musc test done w/n test comp (interp) (Qty:2) and 88327-34 Nrv cndj test 13/> studies (interp)
== END | disposition home or self-care (01) ==
LOC: PSN 08:03
PROVIDERS: PCP Family Medicine; Referring Provider Psychiatry & Neurology Neurology; Visit Provider Psychiatry & Neurology Neurology
DX: R29.898 Other symptoms and signs involving the musculoskeletal system (principal); G58.9 Mononeuropathy, unspecified
CPT/HCPCS: 95886; 95913

== ENCOUNTER → 2023-01-26 | Outpatient (CLI) | payer MEDICARE, MEDICAID, SELFPAY ==
--- NOTE | 2023-01-26 13:56 | NEURO ---
NCS and/or EMG Patient Report Ordering Doctor: Philip Carrasco DATE OF SERVICE: 01/26/23 Gerber presents for electrodiagnostic testing of the lower limbs. He reports numbness and pain in both feet. Electrodiagnostic Testing: Right peroneal motor response measured at the EDB showed normal distal latency with reduced amplitude and reduced conduction velocity. Absent left peroneal motor response measured at the EDB. Absent tibial motor response bilaterally. F waves were not obtainable. H reflex is are prolonged bilaterally. Sensory responses could not be obtained. Testing was compromised due to bilateral lower extremity pitting edema. Due to anticoagulation, only limited muscles were tested in the right lower extremity. Motor unit action potentials of increased amplitude and duration were noted in tibialis anterior and gastrocnemius. Electrodiagnostic assessment:This is an abnormal, though limited study 1) Electrodiagnostic findings are suggestive of an advanced, sensory motor peripheral polyneuropathy with evidence of axonal loss. Testing of the upper extremities performed on January 24, 2023 was also reviewed, which showed a severe, active axonal sensorimotor peripheral polyneuropathy in the upper limbs. Multi Select Codes Neurology Neurology Interp Codes: 94113-75 EMG, Limited and 21700-60 Nrv [facility] test 11-12 studies (interp)
== END | disposition home or self-care (01) ==
LOC: PSN 12:13
PROVIDERS: PCP Family Medicine; Referring Provider Psychiatry & Neurology Neurology; Visit Provider Psychiatry & Neurology Neurology
DX: G62.9 Polyneuropathy, unspecified (principal); R29.898 Other symptoms and signs involving the musculoskeletal system
CPT/HCPCS: 95885; 95912

== ENCOUNTER → 2023-02-18 | Outpatient (CLI) | payer MEDICARE, MEDICAID, SELFPAY ==
--- NOTE | 2023-02-18 14:06 | RAD_ITS ---
STUDY: X-RAY CHEST REASON FOR EXAM: Male, 62 years old. SHORTNESS OF BREATH TECHNIQUE: PA and lateral views of the chest. COMPARISON: Comparison is made with prior study dated September 15, 2022. FINDINGS: The right-sided double lumen catheter is seen with the tip at the junction of the superior vena cava and right atrium. The lungs are clear and expanded. There is no demonstrated pleural abnormality. There is borderline cardiomegaly. Normal mediastinum and kayla. Normal visualized pulmonary arteries. Normal visualized aortic arch and descending thoracic aorta. Normal visualized thoracic spine. Normal visualized ribs, clavicles, and shoulders. There is no demonstrated abnormality of the visualized soft tissue structures of the upper abdomen. RAD/Chest PA and Lateral IMPRESSION: No acute abnormality is seen. Electronically Signed: Michael Allen MD at 14:47 EDT ,
[2023-02-18 16:18] LABS: Absolute Lymphocyte Count 1.02 X10^3/uL (0.83-4.51); Absolute Neutrophil Count 3.1 X10^3/uL (2.0-7.7); Basophil# 0.04 X10^3/uL; Basophil% 0.9 % (0-1); Eosinophil# 0.16 X10^3/uL; Eosinophils% 3.4 % (0-5); Hematocrit 34.1 % (40-54); Hemoglobin 10.8 g/dL (13.0-16.5); Lymphocyte # 1.02 X10^3/ul (0.83-4.51); Lymphocyte % 21.9 % (19-41); Mean Corp Hgb Conc 31.7 g/dL (32-36); Mean Corpuscular Hgb 29.8 pg (27.0-32.0); Mean Corpuscular Volume 93.9 fL (80-94); Mean Platelet Vol. 11.3 fl (6.2-12.0); Monocyte# 0.36 X10^3/uL; Monocyte% 7.7 % (0-10); NRBC Flagged by Analyzer 0 % (0-5); Neutrophil # 3.06 X10^3/uL (2.7-7.7); Neutrophil % 65.9 % (47-70); Platelet Count 199 K/mm3 (150-450); RBC Distribution Width SD 44.8 fl (35.1-43.9); Red Blood Count 3.63 M/mm3 (4.6-6.2); White Blood Count 4.7 K/mm3 (4.4-11.0)
[2023-02-18 16:30] LABS: Anion Gap 5 (5-15); BUN 20 mg/dL (7-18); BUN/Creat Ratio 5.9 RATIO (10-20); Calcium,Total 7.6 mg/dL (8.5-10.1); Chloride 101 mmol/L (98-107); EST Glomerular Filtration Rate 20 mL/min (>60); Est Glom Filt Rate - Afr Amer 24 mL/min (>60); Glucose 219 mg/dL (74-106); Potassium 3.9 mmol/L (3.5-5.1); Sodium Level 139 mmol/L (136-145)
== END | disposition home or self-care (01) ==
LOC: MTLAB 14:04
PROVIDERS: PCP Family Medicine; Referring Provider Family Medicine; Visit Provider Family Medicine
DX: R06.02 Shortness of breath (principal)
CPT/HCPCS: 36415; 71046; 80048; 85025

== ENCOUNTER → 2023-03-09 | Outpatient (CLI) | payer MEDICARE, MEDICAID, SELFPAY ==
[2023-03-09 10:03] LABS: Ammonia < 10.0 umol/L (11-32)
[2023-03-09 10:44] LABS: Valproic Acid (Depakene) Level 34 ug/mL (50-100)
[2023-03-09 10:45] LABS: Vitamin B12 839 pg/mL (211-911)
[2023-03-09 10:58] LABS: Cholesterol 180 mg/dL (200); High Density Lipoprotein 42 mg/dL; Triglycerides 113 mg/dL; Very Low Density Lipoprotein 23 mg/dL (5-40)
[2023-03-14 20:07] LABS: Free Kappa Light Chains 116.9 mg/L (3.3-19.4); Free Lambda Light Chains 49.1 mg/L (5.7-26.3); Vitamin B1, Thiamine 133.8 nmol/L (66.5-200.0)
== END | disposition home or self-care (01) ==
PROVIDERS: PCP Family Medicine; Referring Provider Psychiatry & Neurology Neurology; Visit Provider Psychiatry & Neurology Neurology
DX: G40.909 Epilepsy, unspecified, not intractable, without status epilepticus (principal); G62.9 Polyneuropathy, unspecified; E78.5 Hyperlipidemia, unspecified
CPT/HCPCS: 36415; 80061; 80164; 82140; 82607; 82746; 83883; 84425

== ENCOUNTER 2023-05-11 18:08 | Inpatient (IN) | payer MEDICARE, MEDICAID, SELFPAY ==
[2023-05-11] VITALS (7 sets, daily range): BP systolic 108–139; BP diastolic 64–96; PULSE 79–91; RESP 14–21; TEMP 37.1–38.6; O2SAT 86–98; BMI 28.3
--- NOTE | 2023-05-11 18:41 | CT_ITS ---
STUDY: CT ABDOMEN AND PELVIS WITHOUT CONTRAST REASON FOR EXAM: Male, 63 years old. Abdominal pain RADIATION DOSAGE (If Supplied By Facility): CTDIvol = ( 19.12 ) mGy, DLP = ( 1079.90 ) mGycm TECHNIQUE: Transaxial images were obtained from the dome of the diaphragm to the symphysis pubis without oral contrast, and without intravenous contrast. Sagittal and coronal images were reconstructed. Individualized dose optimization techniques were used for this CT. COMPARISON: None. FINDINGS: The visualized lung bases are unremarkable. The visualized portions of the heart are within normal limits. There is hepatomegaly with diffuse hepatic enlargement. Normal gallbladder and extrahepatic biliary system. Normal spleen. There is diffuse atrophy of the pancreas. Normal bilateral adrenal glands. Normal right kidney. Normal left kidney. Normal visualized stomach. There is mild fluid distention of small intestine. Normal colon. There is non-visualization of the appendix. There is atherosclerotic calcification of the abdominal aorta, without a demonstrated aneurysm. Normal inferior vena cava. Normal retroperitoneum. Normal urinary bladder. There is no free fluid in the abdomen or pelvis. There is postoperative change abdominal wall. There is mild degenerative change of the spine. CT/Abdomen/Pelvis without Cont IMPRESSION: Fluid distention of small intestine with enteritis versus partial obstruction. Electronically Signed: Parminder Sullivan MD at 19:58 EDT ,
[2023-05-11 18:54] LABS: Absolute Lymphocyte Count 0.25 X10^3/uL (0.83-4.51); Absolute Neutrophil Count 7.6 X10^3/uL (2.0-7.7); Basophil# 0.02 X10^3/uL; Basophil% 0.2 % (0-1); Eosinophil# 0.11 X10^3/uL; Eosinophils% 1.3 % (0-5); Hematocrit 34.5 % (40-54); Hemoglobin 10.8 g/dL (13.0-16.5); Lymphocyte # 0.25 X10^3/ul (0.83-4.51); Lymphocyte % 2.9 % (19-41); Mean Corp Hgb Conc 31.3 g/dL (32-36); Mean Corpuscular Hgb 29.3 pg (27.0-32.0); Mean Corpuscular Volume 93.8 fL (80-94); Mean Platelet Vol. 11.4 fl (6.2-12.0); Monocyte# 0.64 X10^3/uL; Monocyte% 7.4 % (0-10); NRBC Flagged by Analyzer 0 % (0-5); Neutrophil # 7.63 X10^3/uL (2.7-7.7); Neutrophil % 87.6 % (47-70); POSITIVE DIFFERENTIAL YES; Platelet Count 157 K/mm3 (150-450); RBC Distribution Width CV 13.9 % (11.6-14.6); RBC Distribution Width SD 48.1 fl (35.1-43.9); Red Blood Count 3.68 M/mm3 (4.6-6.2); White Blood Count 8.7 K/mm3 (4.4-11.0)
[2023-05-11 18:59] LABS: Differential Indicated SCAN CRITERIA MET
--- NOTE | 2023-05-11 19:24 | ED.VIS.GI ---
HPI HPI - GI History of Present Illness Chief Complaint: Nausea/Vomiting/Diarrhea Informant: patient Abdominal Pain/Flank Pain Onset: Today Context: Sudden Onset Timing: Intermittent Quality: Cramping Location: Diffuse Worsened by: Movement Relieved by: Nothing Nausea/Vomiting/Emesis GI Symptom: Positive for Nausea and Vomiting Diarrhea/Melena/Hematochezia GI Symptom: Positive for Diarrhea; Negative for Melena or Hematochezia Associated Symptoms Associated Symptoms: Negative for Dysuria, Frequency or Hematuria Narrative Narrative: Patient presents with abdominal pain, nausea, vomiting, and diarrhea that began today. Patient states his pain has been intermittent. Patient describes his pain as cramping. Patient states his pain is diffuse across his entire abdomen. Patient states it is worse with certain movements. Patient states nothing seems to help with it. Patient admits to some nausea and vomiting. Patient states he did have an episode of hematemesis earlier today. Patient admits to some diarrhea. Patient denies any melena or hematochezia. Patient denies any dysuria or urinary frequency. Patient states he has a history of chronic kidney disease and is on dialysis on Mondays, Wednesdays, and Fridays. Patient states he did not go to his dialysis appointment today. [facility] Medical History Acute and chronic respiratory failure with hypoxia Ambulates with cane Arthritis Back pain Cardiology follow-up encounter CHF (congestive heart failure) Chronic kidney disease, stage 4 (severe) Dietary restriction Former smoker Heartburn High cholesterol History of atrial fibrillation History of echocardiogram History of pain when walking History of renal dialysis History of renal disease History of stress test HTN (hypertension) Injury of head and neck Insulin dependent diabetes mellitus Migraine headache Peripheral neuropathy Restless legs Seizures Stroke Syncope TIA (transient ischemic attack) Wears glasses Wears partial dentures Home Medications insulin glargine 100 unit/mL subcutaneous solution (Lantus U-100 Insulin) 18 unit subcut QPM 03/16/22 [History Last Taken Unknown] insulin lispro 100 unit/mL subcutaneous pen (Humalog KwikPen (U-100) Insulin) 5 unit subcut TID 03/16/22 [History Last Taken Unknown] apixaban 5 mg tablet (Eliquis) 5 mg PO BID #60 tabs 03/24/22 [Rx Last Taken 09/16/22] atorvastatin 10 mg tablet 5 mg PO QHS 05/20/22 [History Last Taken Unknown] albuterol sulfate 90 mcg/actuation aerosol inhaler (Ventolin HFA) 2 puff inhalation Q6H PRN Wheezing 08/24/22 [History Last Taken Unknown] metoprolol tartrate 25 mg tablet 12.5 mg PO BID 08/24/22 [History Last Taken Unknown] amlodipine 10 mg tablet 10 mg PO DAILY #30 tabs 09/15/22 [Rx Last Taken 09/17/22] tramadol 50 mg tablet 50 mg PO Q4H PRN PRN Pain 3 days #20 tabs 12/02/22 [Rx Last Taken Unknown] divalproex 500 mg tablet,delayed release (Depakote) 500 mg PO BID #60 tabs 03/08/23 [Rx Last Taken Unknown] duloxetine 60 mg capsule,delayed release 60 mg PO QHS #30 caps 03/08/23 [Rx Last Taken Unknown] Manual wheelchair #1 ea 03/24/23 [Rx Last Taken Unknown] gabapentin 100 mg capsule 100 mg PO TID #90 caps 04/20/23 [Rx Last Taken Unknown] brimonidine 0.2 % eye drops 1 drp ophthalmic (eye) BID 05/11/23 [History Last Taken Unknown] Allergy/AdvReac Type Severity Reaction Status Date / Time lisinopril AdvReac Severe Other Verified 05/11/23 18:17 oxycodone AdvReac Severe Other Verified 05/11/23 18:17 hydrocodone bitartrate AdvReac Mild HYPER Verified 05/11/23 18:17 [From Vicodin] Family History Father Cancer Prostate Heart disease Mother Heart disease Diabetes Other COPD (chronic obstructive pulmonary disease) Surgical History History of rotator cuff surgery History of umbilical hernia repair Hx of arteriovenostomy for renal dialysis Hx of left cataract extraction Hx of right cataract extraction S/P arteriovenous (AV) fistula creation Status post foot surgery Social History household members: spouse and children number of children: 3 current occupational status: disabled Smoking Status: Never smoker Smokeless tobacco user: snuff second hand exposure: No alcohol intake: never substance use type: does not use what type of physical activity do you participate in: other details: health point frequency: 3-4 times per week alba/sabianism: Other seatbelt use: always ROS ROS ED Constitutional Constitutional ED: Denies chills or fever(s) Eyes Eyes: Denies blurry vision or change in vision ENT ENT ED: Denies rhinorrhea or sore throat Cardiovascular Cardiovascular: Denies chest pain or palpitations Respiratory/Chest Respiratory/Chest: Denies cough or dyspnea Gastrointestinal Gastrointestinal: Reports abdominal pain, diarrhea, nausea and vomiting Genitourinary Genitourinary ED: Denies dysuria or hematuria Musculoskeletal Musculoskeletal: Denies back pain or neck pain Integumentary Denies abscess or rash Neurologic Neurologic: Denies headache(s) or weakness Allergic/Immunologic Allergic/Immunologic ED: Denies mouth swelling or urticaria EXAM Physical Exam Const Vital Signs: 05/11/23 18:17 05/11/23 18:09 05/11/23 19:35 Temperature 101.5 F H Temperature Source Oral Pulse Rate 90 91 Respiratory Rate 21 H 20 H Respiratory Pattern Normal Blood Pressure 128/64 H Blood Pressure Mean 85 Pulse Ox 86 95 Oxygen Delivery Method Room Air Nasal Cannula Oxygen Flow Rate (L/min) 2 05/11/23 19:21 05/11/23 20:09 05/11/23 22:00 Temperature 100.1 F H Temperature Source Oral Pulse Rate 89 89 79 Respiratory Rate 20 H 18 14 Respiratory Pattern Blood Pressure 131/96 H 139/77 H 126/67 H Blood Pressure Mean 107 97 86 Pulse Ox 98 96 96 Oxygen Delivery Method Nasal Cannula Nasal Cannula Nasal Cannula Oxygen Flow Rate (L/min) 2 2 2 05/11/23 22:29 Temperature 98.7 F Temperature Source Oral Pulse Rate Respiratory Rate Respiratory Pattern Blood Pressure Blood Pressure Mean Pulse Ox Oxygen Delivery Method Oxygen Flow Rate (L/min) Positive well nourished and well developed General Appearance ED: well developed and NAD HEENT Reports moist mucous membranes Neck supple and no JVD Cardio regular rate and regular rhythm GI non-distended Palpation: soft and tender epigastric, LLQ, RLQ, LUQ, RUQ, periumbilical and suprapubic; Negative for guarding or rebound tenderness present Extremity Extremity Narrative: There is 1+ edema of the lower extremities bilaterally. General Extremety ED: Yes edema General Extremity: edema Neuro CN's II-XII intact bilaterally, moves all extremities and no sensory deficits noted Sensorium / Orientation: alert Motor Exam: general weakness Psych mental status grossly normal MDM MDM MDM Narrative Medical decision making narrative: PepticDifferential diagnosis includes dehydration, gastroenteritis, peptic ulcer disease, gastritis, duodenal ulcer, pancreatitis, sepsis, small bowel obstruction, perforation, pyelonephritis, and urinary tract infection. EKG will be obtained to assess for cardiac dysrhythmia and cardiac ischemia. CBC will be obtained to assess for leukocytosis and anemia. Comprehensive metabolic profile will be obtained to assess for hepatic function, renal function, and electrolyte abnormality. Lipase will be obtained to assess for pancreatitis. High-sensitivity troponin will be obtained to assess for cardiac ischemia. Urinalysis will be obtained to assess for urinary tract infection. PT with INR and PTT will be obtained to assess for coagulopathy. Lactate will be obtained to assess for sepsis. CT scan of the abdomen and pelvis will be obtained to assess for bowel obstruction, perforation, and ureteral calculus. History & Record Review Additional record(s) reviewed:: Prior labs Lab Data Attestation: I reviewed the patient's lab results. Lab results narrative: CBC was reviewed. There is a mild anemia with a hemoglobin of 10.8 and hematocrit 34.5. Comprehensive metabolic profile was reviewed. BUN was elevated at 114 and creatinine was elevated at 9.64. These are increased from previous results. Potassium is slightly elevated at 5.5. Lipase was reviewed and was slightly elevated at 80. Lactate was reviewed and was normal at 1.2. PT with INR and PTT were reviewed. Pro time was 15.8 and INR is 1.3. PTT was normal at 29.1. High-sensitivity troponin was reviewed and was normal at 18. Urinalysis was reviewed. There is no evidence of urinary tract infection or hematuria. Labs: Laboratory Results - last 24 hr 05/11/23 05/11/23 05/11/23 18:45 18:47 20:10 WBC 8.7 RBC 3.68 L Hgb 10.8 L Hct 34.5 L MCV 93.8 MCH 29.3 MCHC 31.3 L RDW Std Deviation 48.1 H RDW Coeff of Silvia 13.9 Plt Count 157 MPV 11.4 Immature Gran % (Auto) 0.600 Neut % (Auto) 87.6 H Lymph % (Auto) 2.9 L Lares % (Auto) 7.4 Eos % (Auto) 1.3 Baso % (Auto) 0.2 Absolute Neuts (auto) 7.6 Absolute Lymphs (auto) 0.25 L Nucleated RBC % 0 Differential Comment SCANNED PT 15.8 H INR 1.3 APTT 29.1 Sodium 138 Potassium 5.5 H Chloride 106 Carbon Dioxide 21.0 Anion Gap 11 BUN 114 H* Creatinine 9.64 H* Estim Creat Clear Calc 8.10 Est GFR (MDRD) Af Amer 7 L Est GFR (MDRD) Non-Af 6 L BUN/Creatinine Ratio 11.8 Glucose 103 Lactic Acid 1.2 Calcium 7.1 L Total Bilirubin 0.40 AST 14 L ALT 18 Alkaline Phosphatase 59 Troponin I High Sens 18 Total Protein 6.5 Albumin 3.3 Globulin 3.2 Albumin/Globulin Ratio 1.0 Lipase 80 H Urine Color Yellow Urine Clarity Clear Urine pH 6.0 Ur Specific [place] 1.020 Urine Protein 500 H Urine Glucose (UA) 50 H Urine Ketones Negative Urine Occult Blood 150 H Urine Nitrite Negative Urine Bilirubin Negative Urine Urobilinogen Normal Ur Leukocyte Esterase Negative Urine RBC 0-5 SEEN Urine WBC 0-5 SEEN Ur Squamous Epith Cells 0 SEEN Urine Bacteria 0 SEEN Fine Granular Casts 0-5 SEEN Urine Mucus 0 SEEN Radiography Diagnostic Testing: Clinical Impression(s) from Imaging Studies Abdomen/Pelvis CT 05/11/23 18:41 IMPRESSION: Fluid distention of small intestine with enteritis versus partial obstruction. Electronically Signed: Parminder Sullivan MD at 19:58 EDT Reading Location ID and State: [address] [place] [address] , Service support , CT scan of the abdomen and pelvis was obtained. There is some distention of the small intestine. This is consistent with enteritis versus partial small bowel obstruction. It was interpreted by the radiologist and was also independently reviewed by myself. Portable 1 view chest x-ray was obtained. On my independent interpretation, lung duran show a questionable left lower lobe infiltrate. There is normal cardiac silhouette. Bony thorax is normal. Radiologist also interpreted the x-ray and agrees. EKG Initial EKG: Attestation: I personally reviewed and interpreted this EKG as follows: Interpretation: Sinus Rhythm (87) and No Acute Injury Pattern Comments: EKG was obtained. On my independent interpretation, it showed a normal sinus rhythm with a rate of 87. MN interval, QRS interval, and QTc intervals were all normal. There is left axis deviation at -29. There are no acute ST or T wave changes. Prior EKG tracings: available for review Prior: Unchanged (09/15/2022) Follow-up EKG: Attestation: I personally reviewed and interpreted this EKG as follows: Interpretation: Sinus Rhythm (80) and No Acute Injury Pattern Comments: EKG was obtained. On my independent interpretation, it showed a normal sinus rhythm with a rate of 80. MN interval, QRS interval, and QTc intervals were all normal. There is left axis deviation at -25. There are no acute ST or T wave changes. Prior EKG tracings: available for review Prior: Unchanged Management Discussion w/another healthcare provider: Hospitalist Treatment and Re-Evaluation :: Patient was given Tylenol and Zofran here. Patient was not given any IV fluids due to his dialysis. Patient was given gluconate, insulin, and dextrose for his hyperkalemia. Patient was started on Rocephin and Zithromax for the possible infiltrate. Case was discussed with the hospitalist. She will admit the patient to her service. Patient understood and was agreeable with the plan. All questions were answered. Critical Care Time Critical Care Time: Yes Critical care time (excluding procedures): 30-74 minutes (33), Including time spent:, Discussing w/Patient &/or Family/Traffic Engineering Technician, Discussing w/Consultants, Arranging Admission or Transfer and Performing Direct Patient Care at Bedside Discharge Plan Dx/Rx/DC Orders Clinical Impression: Gastroenteritis, Acute kidney injury superimposed on chronic kidney disease, Hyperkalemia, Pneumonia Disposition Disposition: [facility]
[2023-05-11 19:28] LABS: AST(SGOT) 14 U/L (15-37); Alanine Aminotransfer ALT/SGPT 18 U/L (16-61); Albumin, Serum 3.3 g/dL (3.2-5.0); Alkaline Phosphatase 59 U/L (45-117); Anion Gap 11 (5-15); BUN 114 mg/dL (7-18); BUN/Creat Ratio 11.8 RATIO (10-20); Calcium,Total 7.1 mg/dL (8.5-10.1); Chloride 106 mmol/L (98-107); Creatinine, Serum 9.64 mg/dL (0.70-1.30); EST Glomerular Filtration Rate 6 mL/min (>60); Est Glom Filt Rate - Afr Amer 7 mL/min (>60); Globulin 3.2 g/dL (2.2-4.2); Glucose 103 mg/dL (74-106); Lipase 80 U/L (13-75); Potassium 5.5 mmol/L (3.5-5.1); Protein, Total 6.5 g/dL (6.4-8.2); Sodium Level 138 mmol/L (136-145); Troponin-I HS 18 pg/mL (3.0-78.0)
[2023-05-11] MEDS: Ondansetron 4 MG/2 ML Vial IV (19:37)
[2023-05-11] MEDS: Acetaminophen 325 MG Tablet 650 MG PO (19:39)
[2023-05-11 19:44] LABS: Differential Comment SCANNED
[2023-05-11 19:47] LABS: International Normalized Ratio 1.3; Prothrombin Time (Protime)PT. 15.8 SECONDS (11.7-14.9)
[2023-05-11 19:49] LABS: Partial Thromboplast Time 29.1 Seconds (24.1-36.2)
[2023-05-11 19:51] LABS: Lactic Acid 1.2 mmol/L (0.4-1.9)
[2023-05-11 20:20] LABS: Bacteria 0 SEEN /hpf (None Seen); Mucous, Urine 0 SEEN /hpf (<or=2+); Squamous Epithelial Cells - UA 0 SEEN /hpf (0-5)
[2023-05-11 20:28] LABS: Color, Urine Yellow (Yellow); Glucose, Dipstick 50 mg/dl (Normal); Ketone-Dipstick Negative (Negative); Leukocyte Esterase-Dipstick Negative /ul (Negative); Nitrite-Dipstick Negative (Negative); Occult Blood-Urine 150 /ul (Negative); Protein-Dipstick 500 mg/dl (Negative); Urine Bilirubin Dipstick Negative (Negative); Urine Clarity Clear (Clear); Urine Urobilinogen Normal (Normal)
[2023-05-11 20:39] LABS: Red Blood Cells-Urine 0-5 SEEN /hpf (0-5)
[2023-05-11 20:40] LABS: Fine Granular Cast- Urine 0-5 SEEN /lpf (0-5); White Blood Cells 0-5 SEEN /hpf (0-5)
--- NOTE | 2023-05-11 21:30 | RAD_ITS ---
INDICATION: Fever EXAMINATION/TECHNIQUE: X-RAY - XR Chest 1 View COMPARISON: 12/19/2022. FINDINGS: LINES/DEVICES: Unchanged right internal jugular catheter.. LUNGS: Scattered patchy opacities in the bilateral lower lungs. Cannot exclude small right effusion. Diffuse interstitial coarsening. No pneumothorax. MEDIASTINUM AND CARDIOVASCULAR STRUCTURES: Mild cardiomegaly. BONES AND SOFT TISSUES: Unremarkable. RAD/Chest 1 View (Portable) IMPRESSION: Patchy bilateral airspace opacities which could represent atelectasis or pneumonia in the appropriate setting. Radiographic follow-up recommended to ensure resolution. Cardiomegaly without florid edema. Electronically Signed: Rickey Espinosa MD at 0:34 EDT ,
--- NOTE | 2023-05-11 22:29 | HP.PCM.HOS_ITS ---
HPI - General General Date of Admission: 05/11/23 Date of Service: 05/11/23 Chief Complaint: N/V/D HPI Narrative The patient is a 63 y/o M w/ PMHx: Anxiety and Depression, ESRD on HD MWF following with Dr. 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 [place] ED on 05/11/23 with history of persistent nausea, emesis as well as loose stools with cramping diffuse abdominal discomfort associated starting on day of presentation noted the discomfort primarily to be intermittent across his abdomen worse with specific movements reporting that his sputum earlier in the day did have some blood-tinged appearance to it but he had been vomiting quite a bit prior to this reporting that he did miss his dialysis appointment today secondary to these issues prompting eventual ED evaluation. His who is pre sent notes that they did have some kind of catered event during the week with onset of his symptoms following and she herself has also had abdominal cramping and loose stools as well as their daughter. Work-up in the ED included T101.5, heart rate 90, BP 120/64, respiratory rate 21, dropped to 86% on room air with improvement to 98% on 2 L nasal cannula--> heart rate 89, BP 139/77, respiratory rate 18, 96% on 2 L nasal cannula, CBC with WBC 8.7, hemoglobin 10.8, MCV 93.8, platelet 157 with lymphopenia, coags with PT 15.8 otherwise not marked appearing, CMP with potassium 5.5 with no mention of hemolysis, BUN/creatinine 114/9.64, lactic acid 1.2, hepatic profile not marked appearing, lipase 80, troponin 18, blood culture x2 pending per ED, CT abdomen and pelvis with fluid distention of the small intestine with enteritis versus partial obstruction, EKG with sinus rhythm with no acute evidence of ischemia, urinalysis with specific gravity elevated 1.020, protein 500, glucose 50, negative ketone, occult blood 150, nitrate negative with no obvious evidence of UTI, chest x-ray with questi onable left lower lobe infiltrate. In the ED patient administered Tylenol 650 mg p.o. x1 as well as Zofran 4 mg IV x1. Given findings on EKG to be cautious ED did administer IV Rocephin and IV azithromycin. [facility] Medical History Acute and chronic respiratory failure with hypoxia Ambulates with cane Arthritis Back pain Cardiology follow-up encounter CHF (congestive heart failure) Chronic kidney disease, stage 4 (severe) Dietary restriction Former smoker Heartburn High cholesterol History of atrial fibrillation History of echocardiogram History of pain when walking History of renal dialysis History of renal disease History of stress test HTN (hypertension) Injury of head and neck Insulin dependent diabetes mellitus Migraine headache Peripheral neuropathy Restless legs Seizures Stroke Syncope TIA (transient ischemic attack) Wears glasses Wears partial dentures Home Medications insulin glargine 100 unit/mL subcutaneous solution (Lantus U-100 Insulin) 18 unit subcut QPM 03/16/22 [History Last Taken Unknown] insulin lispro 100 unit/mL subcutaneous pen (Humalog KwikPen (U-100) Insulin) 5 unit subcut TID 03/16/22 [History Last Taken Unknown] apixaban 5 mg tablet (Eliquis) 5 mg PO BID #60 tabs 03/24/22 [Rx Last Taken 09/16/22] atorvastatin 10 mg tablet 5 mg PO QHS 05/20/22 [History Last Taken Unknown] albuterol sulfate 90 mcg/actuation aerosol inhaler (Ventolin HFA) 2 puff inhalation Q6H PRN Wheezing 08/24/22 [History Last Taken Unknown] metoprolol tartrate 25 mg tablet 12.5 mg PO BID 08/24/22 [History Last Taken Unknown] amlodipine 10 mg tablet 10 mg PO DAILY #30 tabs 09/15/22 [Rx Last Taken 09/17/22] tramadol 50 mg tablet 50 mg PO Q4H PRN PRN Pain 3 days #20 tabs 12/02/22 [Rx Last Taken Unknown] divalproex 500 mg tablet,delayed release (Depakote) 500 mg PO BID #60 tabs 03/08/23 [Rx Last Taken Unknown] duloxetine 60 mg capsule,delayed release 60 mg PO QHS #30 caps 03/08/23 [Rx Last Taken Unknown] Manual wheelchair #1 ea 03/24/23 [Rx Last Taken Unknown] gabapentin 100 mg capsule 100 mg PO TID #90 caps 04/20/23 [Rx Last Taken Unknown] brimonidine 0.2 % eye drops 1 drp ophthalmic (eye) BID 05/11/23 [History Last Taken Unknown] Allergy/AdvReac Type Severity Reaction Status Date / Time lisinopril AdvReac Severe Other Verified 05/11/23 18:17 oxycodone AdvReac Severe Other Verified 05/11/23 18:17 hydrocodone bitartrate AdvReac Mild HYPER Verified 05/11/23 18:17 [From Vicodin] Family History Father Cancer Prostate Heart disease Mother Heart disease Diabetes Other COPD (chronic obstructive pulmonary disease) Surgical History History of rotator cuff surgery History of umbilical hernia repair Hx of arteriovenostomy for renal dialysis Hx of left cataract extraction Hx of right cataract extraction S/P arteriovenous (AV) fistula creation Status post foot surgery Social History household members: spouse and children number of children: 3 current occupational status: disabled Smoking Status: Never smoker Smokeless tobacco user: snuff second hand exposure: No alcohol intake: never substance use type: does not use what type of physical activity do you participate in: other details: health point frequency: 3-4 times per week alba/yazidi: Other seatbelt use: always ROS ROS Narrative Admission Review of Systems: CONSTITUTIONAL: No weight loss, fever, chills, + weakness or fatigue. HEENT: Eyes: No visual loss, blurred vision, double vision or yellow sclerae. Ears, Nose, Throat: No hearing loss, sneezing, congestion, runny nose or sore throat. SKIN: No rash or itching, lesions, wounds. CARDIOVASCULAR: + Edema. No chest pain, chest pressure or chest discomfort, palpitations, orthopnea, syncopal events. RESPIRATORY: + Mild shortness of breath, cough without marked sputum. No wheezing, hemoptysis. GASTROINTESTINAL: + anorexia, nausea, vomiting, diarrhea, abdominal cramping, emesis with some mild blood tinged but was transient and after violent emesis. No melena, BRBPR. GENITOURINARY: No dysuria, frequency, urgency or retention. NEUROLOGICAL: + Seizure disorder. No headache, dizziness, syncope, paralysis, ataxia, numbness or tingling in the extremities, focal weakness, change in bowel or bladder control. MUSCULOSKELETAL: + muscle, back pain, joint pain or stiffness. HEMATOLOGIC: + anemia, easy bleeding or bruising. LYMPHATICS: No enlarged nodes. No history of splenectomy. PSYCHIATRIC: No history of depression or anxiety. ENDOCRINOLOGIC: No reports of sweating, cold or heat intolerance. No polyuria or polydipsia. ALLERGIES: No history of asthma, hives, eczema or rhinitis. Vital Signs Vital Signs Vital Signs: 05/11/23 18:17 05/11/23 18:09 05/11/23 19:35 Temperature 101.5 F H Temperature Source Oral Pulse Rate 90 91 Respiratory Rate 21 H 20 H Respiratory Pattern Normal Blood Pressure 128/64 H Blood Pressure Mean 85 Pulse Ox 86 95 Oxygen Delivery Method Room Air Nasal Cannula Oxygen Flow Rate (L/min) 2 05/11/23 19:21 05/11/23 20:09 05/11/23 22:00 Temperature 100.1 F H Temperature Source Oral Pulse Rate 89 89 79 Respiratory Rate 20 H 18 14 Respiratory Pattern Blood Pressure 131/96 H 139/77 H 126/67 H Blood Pressure Mean 107 97 86 Pulse Ox 98 96 96 Oxygen Delivery Method Nasal Cannula Nasal Cannula Nasal Cannula Oxygen Flow Rate (L/min) 2 2 2 05/11/23 22:29 Temperature 98.7 F Temperature Source Oral Pulse Rate Respiratory Rate Respiratory Pattern Blood Pressure Blood Pressure Mean Pulse Ox Oxygen Delivery Method Oxygen Flow Rate (L/min) Weight Weight: 197 lb 1.492 oz Body Mass Index (BMI) 28.3 Physical Exam Narrative Physical Examination: General: Awake, alert, oriented to self, place and recent events, improved since initial ED arrival per discussion with staff, currently cooperative, mildly irritable, laying in the ED bed, stool smelled foul. Skin: Normal color, normal turgor, no icterus, no cyanosis except for mild bilateral lower extremity chronic venous stasis skin changes. HEENT: AT/NC, EOMI, PERRLA, dry MM, no carotid bruits or JVD noted. Lungs: Mildly diminished, greater bases, left greater than right, mildly increased respiratory rate but no distress,, no rales, ronchi or wheezing. Heart: Regular rate and rhythm; no gallop, rub audible. Abdomen: Soft, mild generalized discomfort but no rebound or guarding, no marked severe distention, hyperactive BS, no discerned HSM. Extremities: No cyanosis, no clubbing, bilateral lower extremity chronically reported edema. Neurological: Patient awake, alert, oriented as noted, cognitive function improved, appears baseline intact; pupils equally reactive to light and accommodation, cranial nerves II-XII grossly normal, moving all 4 extremities, no focal deficits, strength moderately to severely global decrease secondary to acute presentation. Psychiatric: Affect appears fatigued, mildly irritable, no acute evidence of depressive or anxiety feelings. Results Lab / Micro Data 05/11/23 18:47 05/11/23 18:47 Labs: Laboratory Results - last 24 hr 05/11/23 18:45: PT 15.8 H, INR 1.3, APTT 29.1, Lactic Acid 1.2 05/11/23 18:47: WBC 8.7, RBC 3.68 L, Hgb 10.8 L, Hct 34.5 L, MCV 93.8, MCH 29.3, MCHC 31.3 L, RDW Std Deviation 48.1 H, RDW Coeff of Silvia 13.9, Plt Count 157, MPV 11.4, Immature Gran % (Auto) 0.600, Neut % (Auto) 87.6 H, Lymph % (Auto) 2.9 L, Payne % (Auto) 7.4, Eos % (Auto) 1.3, Baso % (Auto) 0.2, Absolute Neuts (auto) 7.6, Absolute Lymphs (auto) 0.25 L, Nucleated RBC % 0, Differential Comment SCANNED, Sodium 138, Potassium 5.5 H, Chloride 106, Carbon Dioxide 21.0, Anion Gap 11, BUN 114 H*, Creatinine 9.64 H*, Estim Creat Clear Calc 8.10, Est GFR (MDRD) Af Amer 7 L, Est GFR (MDRD) Non-Af 6 L, BUN/Creatinine Ratio 11.8, Glucose 103, Calcium 7.1 L, Total Bilirubin 0.40, AST 14 L, ALT 18, Alkaline Phosphatase 59, Troponin I High Sens 18, Total Protein 6.5, Albumin 3.3, Globulin 3.2, Albumin/Globulin Ratio 1.0, Lipase 80 H 05/11/23 20:10: Urine Color Yellow, Urine Clarity Clear, Urine pH 6.0, Ur Specific [place] 1.020, Urine Protein 500 H, Urine Glucose (UA) 50 H, Urine Ketones Negative, Urine Occult Blood 150 H, Urine Nitrite Negative, Urine Bilirubin Negative, Urine Urobilinogen Normal, Ur Leukocyte Esterase Negative, Urine RBC 0-5 SEEN, Urine WBC 0-5 SEEN, Ur Squamous Epith Cells 0 SEEN, Urine Bacteria 0 SEEN, Fine Granular Casts 0-5 SEEN, Urine Mucus 0 SEEN Radiology Impression Abdomen/Pelvis CT 05/11/23 18:41 IMPRESSION: Fluid distention of small intestine with enteritis versus partial obstruction. Electronically Signed: Parminder Sullivan MD at 19:58 EDT , Assessment & Plan Assessment/Plan (1) Gastroenteritis: PLAN: Plan The patient is a 63 y/o M w/ PMHx: Anxiety and Depression, ESRD on HD MWF following with Dr. Sandoval, Hx R MCA CVA w/ L sided hemiparesis, HTN, HLD, PAF/ Flutter, Chronic Diastolic CHF, COPD w/ Chronic Hypoxic Respiratory Failure, RLS, Migraine headaches, GERD, Former tobacco use now using snuff, Seizure disorder, Diabetes mellitus type II, Chronic anemia/AOCD who presents to the [facility] [place] ED on 05/11/23 with history of persistent nausea, emesis as well as loose stools with cramping diffuse abdominal discomfort associated starting on day of presentation noted the discomfort primarily to be intermittent across his abdomen worse with specific movements reporting that his sputum earlier in the day did have some blood-tinged appearance to it but he had been vomiting quite a bit prior to this reporting that he did miss his dialysis appointment today seco ndary to these issues prompting eventual ED evaluation. #1. N/V/D, Gastroenteritis with CT with enteritis versus a partial obstruction, lower suspicion for obstruction given recent history of persistent diarrhea suspect this is an over read and more enteritis associated as well as #2 possibly aspiration component given recent intractable nausea and emesis: We will admit to medical surgical floor, will continue judicious hydration given CHF history/ESRD with missed dialysis on day of presentation, will obtain c diff, stool cx if recurrent diarrhea, will allow clear liquids only and maintain on PPI with advance diet as clinically improving, will not start antibiotics at this time given unclear source pending stool studies as may be viral gastroenteritis, COVID PCR as well as respiratory viral panel requested, if stool studies unremarkable or viral positive then would opt to initiate ant idiarrheal regimen. Anti-emetics, pain regimen PRN. #2. Questionable left lower lobe infiltrate potentially related with aspiration given intractable nausea and emesis or the etiology: Will maintain on oxygen with wean as tolerated to room air, ATC budesonide, PRN albuterol, maintained on IV Zosyn with MRSA screen given concern possibly for aspiration but again the nausea, vomiting and emesis could be related with the pneumonia presentation, HOB, IS parameters w/ pending sputum cultures, COVID PCR, full respiratory viral panel and urine antigens. #3. Hyperkalemia, mild: Admission potassium 5.5 however patient has missed dialysis, does not appear hemolyzed, no EKG changes concerning, in the ED patient administered gluconate, insulin and dextrose, will hydrate as noted and plan repeat CMP in AM. Given recent gastroenteritis type symptoms we will hold on immediate usage of Kayexalate. #4. ESRD: Patient with ongoing dialysis Tuesday, following with Dr. Sandoval, missed dialysis on day of presentation secondary to symptoms, nephrology consulted. #5. Chronic diastolic CHF: We will cautiously hydrate given history of recent GI losses and CHF history, maintain on apixaban, statin, metoprolol, not on JETHRO inhibitor/ARB nor diuretic, still making urine. #6. Diabetes mellitus type II with chronic neuropathy: Hold oral home regimen, continue home insulin regimen, will place on clears given symptoms and advance diet as tolerated to ADA diet, accu checks w/ ISS, continue patient home chronic gabapentin regimen. #7. Chronic COPD w/ Chronic Hypoxic Respiratory Failure: Reported history of chronic oxygen usage, clarifying, as noted 86% on room air with improvement to 96 to 98% on 2 L nasal cannula, from list on any chronic inhalers, will have as needed albuterol and if necessary may add scheduled ATC budesonide therapy, encourage head of bed and I-S, continue oxygen supplementation while clarifying if uses chronically with wean as tolerated if appropriate. #8. Chronic anemia/normocytic/AOCD: Admission hemoglobin 10.8, MCV 93.8, baseline hemoglobin more recently 10-11, stable, continue to trend. #9. PAF/flutter: We will continue patient home apixaban and metoprolol home regimen. #10. History stroke: Patient with history of right-sided MCA stroke with left sided hemiparesis, we will continue patient home apixaban, statin, hypertensive regimen as noted as well as diabetic regimen with adjustments as noted. #11. Hypertension: Continue home regimen including amlodipine, metoprolol with hold parameters as needed, PRN hydralazine. #12. Hyperlipidemia: We will continue patient on statin therapy. #13. History cigarette tobacco now using snuff: Encourage snuff tobacco cessation. #14. Seizure disorder: We will continue patient home Depakote, previous notes have mentioned Vimpat but is not on this regimen per current list, clarifying. #15. Anxiety and depression: We will continue patient home duloxetine regimen. #16. Restless leg syndrome: Not on any specific medication, does have gabapentin as noted with neuropathy history. #17. GERD: We will maintain on PPI with as needed Mylanta. #18. DVT prophylaxis: Continue home eliquis regimen. #19. CODE status: Patient ANGELLA is his who is present and living will is currently in place. Discussed CODE status at length including difference between FULL code, DNR-CCA and DNR-CC status. Following discussions about the differences in these status, requested Full Code status. Advanced Care Planning Face to Face Time: 16 minutes. Charges/Coding Visit Charges Inpatient E&M: 13640 Init Hosp L3 Procedures Hospitalists Procedures: 47915 Advncd Care Plan 30 Min
[2023-05-11] MEDS: Insulin Lispro 10 UNIT in Syringe 0 ML 6 UNIT IV (22:30)
[2023-05-11] MEDS: Dextrose 50%-Water 25 GM/50 ML DISP.SYRIN IV (22:30)
[2023-05-11] MEDS: Calcium Gluconate IV 3 GM in Syringe 1 EACH IV (22:30)
[2023-05-11] MEDS: Divalproex (ER) 500 MG Tablet PO (23:12)
[2023-05-11] MEDS: Ceftriaxone 2 GM in 0.9% Normal Saline (50mL MB+) 50 ML IV (23:39)
[2023-05-12] VITALS (22 sets, daily range): BP systolic 121–205; BP diastolic 68–87; PULSE 72–91; RESP 11–19; TEMP 36.1–36.9; O2SAT 96–98; BMI 28.2; BMI 28.1; BMI 28.0
[2023-05-12 00:13] LABS: Magnesium 2.2 mg/dL (1.6-2.6); Phosphorus 7.3 mg/dL (2.5-4.9)
[2023-05-12] MEDS: Azithromycin 500 MG in Dextrose 5%-Water (250mL Bag) 250 ML 250 MG IV (00:35)
[2023-05-12] MEDS: 0.9% Normal Saline (1000mL) 1,000 ML 100 ML IV (01:18)
[2023-05-12 02:20] LABS: M R Staph aureus DNA By PCR Negative (Negative); Probe Check PASS; Specimen Processing Control PASS
[2023-05-12 02:33] LABS: Procalcitonin 0.67 ng/mL (0.00-0.09)
[2023-05-12 02:59] LABS: Absolute Lymphocyte Count 0.28 X10^3/uL (0.83-4.51); Absolute Neutrophil Count 6.6 X10^3/uL (2.0-7.7); Basophil# 0.03 X10^3/uL; Basophil% 0.4 % (0-1); Eosinophil# 0.03 X10^3/uL; Eosinophils% 0.4 % (0-5); Hematocrit 33.8 % (40-54); Hemoglobin 10.5 g/dL (13.0-16.5); Lymphocyte # 0.28 X10^3/ul (0.83-4.51); Lymphocyte % 3.9 % (19-41); Mean Corp Hgb Conc 31.1 g/dL (32-36); Mean Corpuscular Hgb 29.3 pg (27.0-32.0); Mean Corpuscular Volume 94.4 fL (80-94); Mean Platelet Vol. 10.6 fl (6.2-12.0); Monocyte# 0.31 X10^3/uL; Monocyte% 4.3 % (0-10); NRBC Flagged by Analyzer 0 % (0-5); Neutrophil # 6.55 X10^3/uL (2.7-7.7); Neutrophil % 90.7 % (47-70); POSITIVE DIFFERENTIAL YES; Platelet Count 129 K/mm3 (150-450); RBC Distribution Width CV 13.8 % (11.6-14.6); RBC Distribution Width SD 48.1 fl (35.1-43.9); Red Blood Count 3.58 M/mm3 (4.6-6.2); White Blood Count 7.2 K/mm3 (4.4-11.0)
[2023-05-12 03:00] LABS: Differential Indicated SCAN CRITERIA MET
[2023-05-12 03:36] LABS: ALB/GLOB Ratio 0.9 RATIO (0.9-2.4); AST(SGOT) 16 U/L (15-37); Alanine Aminotransfer ALT/SGPT 14 U/L (16-61); Albumin, Serum 3.1 g/dL (3.2-5.0); Alkaline Phosphatase 57 U/L (45-117); Anion Gap 12 (5-15); BUN 112 mg/dL (7-18); BUN/Creat Ratio 11.7 RATIO (10-20); Calcium,Total 7.4 mg/dL (8.5-10.1); Chloride 107 mmol/L (98-107); Creatinine, Serum 9.56 mg/dL (0.70-1.30); EST Glomerular Filtration Rate 6 mL/min (>60); Est Glom Filt Rate - Afr Amer 7 mL/min (>60); Estimated Creatinine Clearance 8.17 ml/min; Globulin 3.3 g/dL (2.2-4.2); Glucose 92 mg/dL (74-106); Potassium 5.2 mmol/L (3.5-5.1); Protein, Total 6.4 g/dL (6.4-8.2); Sodium Level 139 mmol/L (136-145)
[2023-05-12 04:27] LABS: Macrocytosis RARE; Platelet Estimate SLT DEC (ADEQ)
[2023-05-12] MEDS: Gabapentin 100 MG Capsule PO ×3 (06:17→21:41)
[2023-05-12] MEDS: Budesonide Respules 0.5 MG/2 ML AMPUL.NEB. INHALATION ×2 (07:04→19:56)
[2023-05-12] MEDS: Piperacil/Tazobactam 3.375 GM in 0.9% Normal Saline (50mL MB+) 50 ML IV ×2 (08:11→21:42)
[2023-05-12] MEDS: Menthol/Lanolin/Calamine/Znox 113 GM Tube 1 APPLIC TOPICAL ×3 (08:12→21:23)
[2023-05-12] MEDS: BRIMONIDINE 0.2% 5ML BOTTLE 1 DRP OPHTHALMIC ×2 (08:12→21:23)
[2023-05-12] MEDS: APIXABAN 5 MG TABLET PO ×2 (08:13→21:25)
[2023-05-12] MEDS: Metoprolol Tartrate 25 MG Tablet 12.5 MG PO ×2 (08:14→21:30)
[2023-05-12] MEDS: Divalproex Sodium 250 MG Tablet PO ×2 (08:15→21:24)
[2023-05-12] MEDS: amLODIPine 10 MG Tablet PO (08:15)
--- NOTE | 2023-05-12 08:30 | NURSING ---
Right chest tunnelled dialysis catheter dressing changed under sterile procedure, patient tolerated well.
--- NOTE | 2023-05-12 11:15 | PCM.CONS.R ---
Assessment & Plan Assessment/Plan (1) End stage renal disease: (2) Hyperkalemia: (3) Gastroenteritis: PLAN: Plan This is a 63-year-old male with past medical history significant for ESRD on hemodialysis at [facility] Tuesday schedule who presented to emergency room with complaints of nausea, vomiting, diarrhea. C. difficile negative. CT abdomen pelvis fluid distention of small intestine with enteritis versus partial obstruction; chest x-ray patchy bilateral opacities possible pneumonia. Patient admitted for further evaluation and treatment. He is receiving IV antibiotics. Patient last dialyzed at the kidney center on May 06. He does have a history of noncompliance with dialysis, tends to miss dialysis sessions. His estimated dry weight is 85 kg. Today BUN 112, creatinine 9.56, potassium 5.2, patient will dialyze today over 3 hours on 2K bath with minimal to no fluid removal, we will plan for dialysis again tomorrow. Patient is in agreement to plan. Hemoglobin at goal. Patient receives KRUPA and iron at the dialysis center. We will monitor hemoglobin trends. White count is normal, no fevers. Current blood pressures acceptable on metoprolol and amlodipine. Further orders forthcoming as hospitalization evolves, thank you for allowing us participate in the care of Mr. Woodward. HPI Consult Data Date of Consult: 05/12/23 HPI Narrative HPI Narrative: JAMES WOODWARD, is a 63 M with past medical history significant for ESRD on hemodialysis Tuesday, diabetes mellitus type 2, hypertension, chronic systolic heart failure, COPD who presented to the emergency room with complaints of nausea, vomiting and diarrhea. CT of abdomen and pelvis showed fluid distention of small intestine with enteritis versus partial obstruction, chest x-ray questionable left lower lobe infiltrate, patient was given IV antibiotics in the emergency room and admitted for further evaluation and treatment. Nephrology consulted as patient has history of ESRD on hemodialysis. Patient last dialyzed at the [facility] on 05/06/2023. Patient is alert and oriented. Complains of nausea and still having diarrhea. C. difficile was negative. is at bedside. Denies any dysuria or hematuria. No recent fevers [facility] Medical History Acute and chronic respiratory failure with hypoxia Ambulates with cane Arthritis Back pain Cardiology follow-up encounter CHF (congestive heart failure) Chronic kidney disease, stage 4 (severe) Dietary restriction Former smoker Heartburn High cholesterol History of atrial fibrillation History of echocardiogram History of pain when walking History of renal dialysis History of renal disease History of stress test HTN (hypertension) Injury of head and neck Insulin dependent diabetes mellitus Migraine headache Peripheral neuropathy Restless legs Seizures Stroke Syncope TIA (transient ischemic attack) Wears glasses Wears partial dentures Home Medications insulin glargine 100 unit/mL subcutaneous solution (Lantus U-100 Insulin) 18 unit subcut QPM 03/16/22 [History Last Taken Unknown] insulin lispro 100 unit/mL subcutaneous pen (Humalog KwikPen (U-100) Insulin) 5 unit subcut TID 03/16/22 [History Last Taken Unknown] apixaban 5 mg tablet (Eliquis) 5 mg PO BID #60 tabs 03/24/22 [Rx Last Taken 09/16/22] atorvastatin 10 mg tablet 5 mg PO QHS 05/20/22 [History Last Taken Unknown] albuterol sulfate 90 mcg/actuation aerosol inhaler (Ventolin HFA) 2 puff inhalation Q6H PRN Wheezing 08/24/22 [History Last Taken Unknown] metoprolol tartrate 25 mg tablet 12.5 mg PO BID 08/24/22 [History Last Taken Unknown] amlodipine 10 mg tablet 10 mg PO DAILY #30 tabs 09/15/22 [Rx Last Taken 09/17/22] tramadol 50 mg tablet 50 mg PO Q4H PRN PRN Pain 3 days #20 tabs 12/02/22 [Rx Last Taken Unknown] divalproex 500 mg tablet,delayed release (Depakote) 500 mg PO BID #60 tabs 03/08/23 [Rx Last Taken Unknown] duloxetine 60 mg capsule,delayed release 60 mg PO QHS #30 caps 03/08/23 [Rx Last Taken Unknown] Manual wheelchair #1 ea 03/24/23 [Rx Last Taken Unknown] gabapentin 100 mg capsule 100 mg PO TID #90 caps 04/20/23 [Rx Last Taken Unknown] brimonidine 0.2 % eye drops 1 drp ophthalmic (eye) BID 05/11/23 [History Last Taken Unknown] Allergy/AdvReac Type Severity Reaction Status Date / Time lisinopril AdvReac Severe Other Verified 05/11/23 18:17 oxycodone AdvReac Severe Other Verified 05/11/23 18:17 hydrocodone bitartrate AdvReac Mild HYPER Verified 05/11/23 18:17 [From Vicodin] Family History Father Cancer Prostate Heart disease Mother Heart disease Diabetes Other COPD (chronic obstructive pulmonary disease) Surgical History History of rotator cuff surgery History of umbilical hernia repair Hx of arteriovenostomy for renal dialysis Hx of left cataract extraction Hx of right cataract extraction S/P arteriovenous (AV) fistula creation Status post foot surgery Social History household members: spouse and children number of children: 3 current occupational status: disabled Smoking Status: Never smoker Smokeless tobacco user: snuff second hand exposure: No alcohol intake: never substance use type: does not use what type of physical activity do you participate in: other details: health point frequency: 3-4 times per week alba/rastafari: Other seatbelt use: always ROS ROS Narrative As in HPI and past medical history Physical Exam Narrative Alert and oriented x3, no apparent distress S1, S2, RRR Lung sounds clear anteriorly, diminished breath sounds posterior bases, no rhonchi or rales Abdomen tender, soft no pitting edema AVF Right FA +thrill and bruit Tunneled dialysis catheter right chest dressing clean, dry and intact Lab / Micro Data 05/12/23 02:55 05/12/23 02:55 Labs: Laboratory Results - last 24 hr 05/11/23 18:45: PT 15.8 H, INR 1.3, APTT 29.1, Lactic Acid 1.2 05/11/23 18:47: WBC 8.7, RBC 3.68 L, Hgb 10.8 L, Hct 34.5 L, MCV 93.8, MCH 29.3, MCHC 31.3 L, RDW Std Deviation 48.1 H, RDW Coeff of Silvia 13.9, Plt Count 157, MPV 11.4, Immature Gran % (Auto) 0.600, Neut % (Auto) 87.6 H, Lymph % (Auto) 2.9 L, [place] % (Auto) 7.4, Eos % (Auto) 1.3, Baso % (Auto) 0.2, Absolute Neuts (auto) 7.6, Absolute Lymphs (auto) 0.25 L, Nucleated RBC % 0, Differential Comment SCANNED, Sodium 138, Potassium 5.5 H, Chloride 106, Carbon Dioxide 21.0, Anion Gap 11, BUN 114 H*, Creatinine 9.64 H*, Estim Creat Clear Calc 8.10, Est GFR (MDRD) Af Amer 7 L, Est GFR (MDRD) Non-Af 6 L, BUN/Creatinine Ratio 11.8, Glucose 103, Calcium 7.1 L, Phosphorus 7.3 H, Magnesium 2.2, Total Bilirubin 0.40, AST 14 L, ALT 18, Alkaline Phosphatase 59, Troponin I High Sens 18, Total Protein 6.5, Albumin 3.3, Globulin 3.2, Albumin/Globulin Ratio 1.0, Lipase 80 H 05/11/23 20:10: Urine Color Yellow, Urine Clarity Clear, Urine pH 6.0, Ur Specific [place] 1.020, Urine Protein 500 H, Urine Glucose (UA) 50 H, Urine Ketones Negative, Urine Occult Blood 150 H, Urine Nitrite Negative, Urine Bilirubin Negative, Urine Urobilinogen Normal, Ur Leukocyte Esterase Negative, Urine RBC 0-5 SEEN, Urine WBC 0-5 SEEN, Ur Squamous Epith Cells 0 SEEN, Urine Bacteria 0 SEEN, Fine Granular Casts 0-5 SEEN, Urine Mucus 0 SEEN 05/12/23 00:40: MRSA (PCR) Negative 05/12/23 01:40: Procalcitonin 0.67 H 05/12/23 02:55: WBC 7.2, RBC 3.58 L, Hgb 10.5 L, Hct 33.8 L, MCV 94.4 H, MCH 29.3, MCHC 31.1 L, RDW Std Deviation 48.1 H, RDW Coeff of Silvia 13.8, Plt Count 129 L, MPV 10.6, Immature Gran % (Auto) 0.300, Neut % (Auto) 90.7 H, Lymph % (Auto) 3.9 L, Grundy % (Auto) 4.3, Eos % (Auto) 0.4, Baso % (Auto) 0.4, Absolute Neuts (auto) 6.6, Absolute Lymphs (auto) 0.28 L, Nucleated RBC % 0, Platelet Estimate SLT DEC, Macrocytosis RARE, Sodium 139, Potassium 5.2 H, Chloride 107, Carbon Dioxide 20.0 L, Anion Gap 12, BUN 112 H*, Creatinine 9.56 H*, Estim Creat Clear Calc 8.17, Est GFR (MDRD) Af Amer 7 L, Est GFR (MDRD) Non-Af 6 L, BUN/Creatinine Ratio 11.7, Glucose 92, Calcium 7.4 L, Total Bilirubin 0.30, AST 16, ALT 14 L, Alkaline Phosphatase 57, Total Protein 6.4, Albumin 3.1 L, Globulin 3.3, Albumin/Globulin Ratio 0.9 Micro: Microbiology 05/12/23 00:55 Mucosa - Eye Respiratory Panel (PCR) - Final 05/11/23 23:11 Stool C. difficile DNA Amplification - Final 05/12/23 00:51 Urine, Clean Catch Legionella Antigen - Final 05/12/23 00:51 Urine, Clean Catch Streptococcus pneumoniae Antigen (M - Final 05/12/23 00:55 Mucosa - Nasopharyngeal Coronavirus COVID-19 PCR - Final 05/11/23 23:23 Stool Enteric Bacteriology - Final Radiology Impression Abdomen/Pelvis CT 05/11/23 18:41 IMPRESSION: Fluid distention of small intestine with enteritis versus partial obstruction. Electronically Signed: Parminder Sullivan MD at 19:58 EDT , Chest X-Ray 05/11/23 21:30 IMPRESSION: Patchy bilateral airspace opacities which could represent atelectasis or pneumonia in the appropriate setting. Radiographic follow-up recommended to ensure resolution. Cardiomegaly without florid edema. Electronically Signed: Rickey Espinosa MD at 0:34 EDT ,
[2023-05-12 12:37] LABS: Bedside Glucose 82 mg/dL (74-106)
[2023-05-12 12:41] LABS: Bedside Glucose 105 mg/dL (74-106)
[2023-05-12] MEDS: PureFlow B 2K Dialysis Soln 1 BAG 6 BAG PF (14:53)
[2023-05-12] MEDS: 0.9% Normal Saline 1,000 ML IV.SOLN. 1000 ML OPERA.SITE (14:53)
--- NOTE | 2023-05-12 15:02 | PN_ITS ---
Subjective Subjective Patient seen and examined. He still having diarrhea. He had numerous episodes of diarrhea overnight and this morning. He is also have some nausea and vomiting. He states he ate some cake and catered food for his birthday recently and his and daughter at the same thing and are having similar symptoms. Review of systems otherwise negative. Objective Data Objective Data Vital Signs: Vital Signs Temp Pulse Resp BP Pulse Ox O2 Del Method O2 Flow Rate 97.0 F L 73 12 133/80 H 98 Nasal Cannula 2 05/12/23 14:59 05/12/23 14:59 05/12/23 14:59 05/12/23 14:59 05/12/23 14:59 05/12/23 14:59 05/12/23 14:59 Oxygen Flow Rate (L/min) 2 Oxygen Delivery Method Nasal Cannula Weight: 196 lb 13.965 oz Body Mass Index (BMI) 28.1 Intake & Output: Intake and Output for Last 24 Hours 05/10/23 05/11/23 05/12/23 23:59 23:59 23:59 Intake Total 1485 / 1485 Balance 1485 / 1485 Lab / Micro Data 05/12/23 02:55 05/12/23 02:55 Labs: Laboratory Results - last 24 hr 05/11/23 18:45: PT 15.8 H, INR 1.3, APTT 29.1, Lactic Acid 1.2 05/11/23 18:47: WBC 8.7, RBC 3.68 L, Hgb 10.8 L, Hct 34.5 L, MCV 93.8, MCH 29.3, MCHC 31.3 L, RDW Std Deviation 48.1 H, RDW Coeff of Silvia 13.9, Plt Count 157, MPV 11.4, Immature Gran % (Auto) 0.600, Neut % (Auto) 87.6 H, Lymph % (Auto) 2.9 L, [place] % (Auto) 7.4, Eos % (Auto) 1.3, Baso % (Auto) 0.2, Absolute Neuts (auto) 7.6, Absolute Lymphs (auto) 0.25 L, Nucleated RBC % 0, Differential Comment SCANNED, Sodium 138, Potassium 5.5 H, Chloride 106, Carbon Dioxide 21.0, Anion Gap 11, BUN 114 H*, Creatinine 9.64 H*, Estim Creat Clear Calc 8.10, Est GFR (MDRD) Af Amer 7 L, Est GFR (MDRD) Non-Af 6 L, BUN/Creatinine Ratio 11.8, Glucose 103, Calcium 7.1 L, Phosphorus 7.3 H, Magnesium 2.2, Total Bilirubin 0.40, AST 14 L, ALT 18, Alkaline Phosphatase 59, Troponin I High Sens 18, Total Protein 6.5, Albumin 3.3, Globulin 3.2, Albumin/Globulin Ratio 1.0, Lipase 80 H 05/11/23 20:10: Urine Color Yellow, Urine Clarity Clear, Urine pH 6.0, Ur Specific [place] 1.020, Urine Protein 500 H, Urine Glucose (UA) 50 H, Urine Ketones Negative, Urine Occult Blood 150 H, Urine Nitrite Negative, Urine Bilirubin Negative, Urine Urobilinogen Normal, Ur Leukocyte Esterase Negative, Urine RBC 0-5 SEEN, Urine WBC 0-5 SEEN, Ur Squamous Epith Cells 0 SEEN, Urine Bacteria 0 SEEN, Fine Granular Casts 0-5 SEEN, Urine Mucus 0 SEEN 05/12/23 00:40: MRSA (PCR) Negative 05/12/23 01:40: Procalcitonin 0.67 H 05/12/23 02:55: WBC 7.2, RBC 3.58 L, Hgb 10.5 L, Hct 33.8 L, MCV 94.4 H, MCH 29.3, MCHC 31.1 L, RDW Std Deviation 48.1 H, RDW Coeff of Silvia 13.8, Plt Count 129 L, MPV 10.6, Immature Gran % (Auto) 0.300, Neut % (Auto) 90.7 H, Lymph % (Auto) 3.9 L, [place] % (Auto) 4.3, Eos % (Auto) 0.4, Baso % (Auto) 0.4, Absolute Neuts (auto) 6.6, Absolute Lymphs (auto) 0.28 L, Nucleated RBC % 0, Platelet Estimate SLT DEC, Macrocytosis RARE, Sodium 139, Potassium 5.2 H, Chloride 107, Carbon Dioxide 20.0 L, Anion Gap 12, BUN 112 H*, Creatinine 9.56 H*, Estim Creat Clear Calc 8.17, Est GFR (MDRD) Af Amer 7 L, Est GFR (MDRD) Non-Af 6 L, BUN/Creatinine Ratio 11.7, Glucose 92, Calcium 7.4 L, Total Bilirubin 0.30, AST 16, ALT 14 L, Alkaline Phosphatase 57, Total Protein 6.4, Albumin 3.1 L, Globulin 3.3, Albumin/Globulin Ratio 0.9 05/12/23 08:09: POC Glucose 82 05/12/23 12:22: POC Glucose 105 Micro: Microbiology 05/12/23 00:55 Mucosa - Eye Respiratory Panel (PCR) - Final 05/11/23 23:11 Stool C. difficile DNA Amplification - Final 05/12/23 00:51 Urine, Clean Catch Legionella Antigen - Final 05/12/23 00:51 Urine, Clean Catch Streptococcus pneumoniae Antigen (M - Final 05/12/23 00:55 Mucosa - Nasopharyngeal Coronavirus COVID-19 PCR - Final 05/11/23 23:23 Stool Enteric Bacteriology - Final Radiography Diagnostic Testing: Radiology Impression Abdomen/Pelvis CT 05/11/23 18:41 IMPRESSION: Fluid distention of small intestine with enteritis versus partial obstruction. Electronically Signed: Parminder Sullivan MD at 19:58 EDT , Chest X-Ray 05/11/23 21:30 IMPRESSION: Patchy bilateral airspace opacities which could represent atelectasis or pneumonia in the appropriate setting. Radiographic follow-up recommended to ensure resolution. Cardiomegaly without florid edema. Electronically Signed: Rickey Espinosa MD at 0:34 EDT , Physical Exam Const alert, oriented x3 and no apparent distress General Appearance: cooperative HEENT normocephalic, head/scalp atraumatic, moist oral mucous membranes and oropharynx normal Eyes PERRL and EOMs intact bilaterally Neck no lymphadenopathy Resp normal respiratory effort, normal air movement and clear to auscultation bilater ally Cardio regular rate, regular rhythm, S1 normal heart sound, S2 normal heart sound and no murmurs GI GI Narrative: abdomen minimally tender generally, no guarding or rebound tenderness, normal bowel sounds Extremity normal capillary refill, no clubbing, cyanosis or edema and no calf tenderness General Extremity: no tenderness to palpation of joints or extremities Skin General Skin Exam: no breakdown Neuro CN's II-XII intact bilaterally, no focal motor deficits, no sensory deficits noted and deep tendon reflexes 2+ bilaterally Motor Exam: strength 5/5 throughout and general weakness Psych thought process normal, cooperative and affect normal Assessment & Plan Assessment/Plan (1) Gastroenteritis: PLAN: Plan #Acute gastroenteritis * Likely viral. Stool for enteric pathogens negative. C. difficile also negative. He states he recently ate some ketonemia for his birthday. His and daughter were also present and they were initially having diarrhea also but now feeling better. * Continue hydration with IV fluids. Give loperamide if diarrhea worsens. * Encourage oral hydration. CT abdomen and pelvis showed fluid distention of the small intestine with enteritis versus partial obstruction. I am doubtful this is partial obstruction as he still having diarrhea. * #ESRD: On hemodialysis Wednesdays and Fridays. Nephrology consulted. Await recs. #Hyperkalemia: Potassium was 5.2 on admission. Not markedly elevated in setting of dialysis. Nephrology on board. Will monitor. #Heart failure preserved EF: On metoprolol. Still making urine. not on diuretics. Not in fluid overload #Chronic respiratory failure due to COPD: Not in exacerbation. Breathing treatments bronchodilators. #Type 2 diabetes mellitus with neuropathy. On Lantus. Insulin sliding scale. Accu-Cheks ACHS. #Paroxysmal A-fib: On metoprolol. On Eliquis. #History of stroke: Has left-sided hemiparesis. On Eliquis. On statin. #Hypertension: On amlodipine and metoprolol. IV hydralazine as needed. #Anxiety and depression: On duloxetine #Seizure disorder: On Depakote #Restless leg syndrome: On gabapentin #GERD: On PPI #DVT prophylaxis: On Eliquis Charges/Coding Visit Charges Inpatient E&M: 09248 Subs Hosp L2
--- NOTE | 2023-05-12 16:10 | CASEMGMT ---
MICHELLE HUANG Assessment: Face to Face with pt for initial transition planning/care coordination assessment. RN REINA introduced self and role at [facility], pt voices understanding and consents to assessment. Pt is A&O x4 and answers all questions appropriately at this time. Pt lying in bed with oxygen on in no distress with at bedside and dialysis nurse. Care providers, pharmacy, and demographics verified/updated. Admitting Dx: gastro/pna PCP:Guille Specialists:Luna, neuro; Jaime nephrichy Preferred Pharmacy: [facility] Insurance: My Care [facility], [facility] Community Plan Prescription Benefit: yes LNOK: Nessa Woodward, Living Arrangements: Pt lives with and 2 children in a two story home with 14 steps to enter with a rail on one side. Pt reports he is I in ADL's and denies concerns at home. Transportation: Pt drives self and denies concerns with transportation. DME:BGM and insulin with sufficient supplies, w/c, hand rails in bathroom HHC/SNF: Pt denies hx of HHC and has been to [facility] Rehab unit Pt states no concerns with going home at time of dc. Pt goes to dialysis at [facility] M/W/F with a chair time at 11am. Pt states no further concerns/needs. CM to follow. Advised pt to ask CM if any further question/concerns/needs arise, voices understanding. Pt Goal: Home Plan: Home, follow oxygen and therapy evals pending
[2023-05-12 17:24] LABS: Bedside Glucose 108 mg/dL (74-106)
[2023-05-12] MEDS: Heparin 10,000 UNITS/10 ML Vial IV (17:24)
[2023-05-12] MEDS: DULoxetine Hcl 60 MG Capsule PO (21:24)
[2023-05-12 22:54] LABS: Bedside Glucose 124 mg/dL (74-106)
[2023-05-13] VITALS (22 sets, daily range): BP systolic 106–226; BP diastolic 60–95; PULSE 76–134; RESP 13–18; TEMP 36.6–37.1; O2SAT 94–100; BMI 29.0; BMI 28.8
--- NOTE | 2023-05-13 00:20 | NURSING ---
0020- upon entering patient's room, IV in left hand seen to be leaking, zosyn hanging at time was paused. PIV insertion attempt x2, insertions unsuccessful. During insertions, pt became verbally aggressive w/ nicole RN. Pt states have you ever had someone treat you like a pin cushion, oh yeah keep going where it hurts. After unsuccessful attempts, this RN asked for assistance from Allie Hernandez RN. During Allie Hernandez RN attempts to insert PIV, pt continued to be verbally inappropriate. Pt states if sex hurt this bad, I would never have sex. Argumentative w/ nicole RN and assisting RN over getting a PIV inserted. Dr. Deleon notified.
--- NOTE | 2023-05-13 02:00 | NURSING ---
0200- H. David RN informed this RN that patient pulled out a tobacco product and stuck it in his mouth. Informed Dr. Deleon. Nicotine gum ordered per Dr. Deleon.
--- NOTE | 2023-05-13 02:06 | NURSING ---
This RN attempted x2 for PIV to LFA, once medially and once posteriorly; pt yelled that's extremely painful, take it out! Take it out Explained to pt that first IV was placed appropriately and blood could be drawn from, pt states If you don't take it out, I will. Second attempt made medially and pt jumped at needle insertion, then said this one ain't gonna work either, take it out. Needle extracted from angiocath, angiocath still in forearm, and then pt stated that feels so much better. Pt informed that the angiocath was still in place, pt's face went flat and simply said oh. PT then proceeded to lecture this RN on IV skill and repeatedly stated I told you they roll. This RN stated acknowledgement of what he had said and then informed him that first IV was in place and drawing blood, but he demanded it be removed. Pt states If having sex was as painful as you starting IVs, you can bet I wouldn't be having sex anymore. Pt informed his comment was inappropriate. Pt attempted to state that he was joking and using his sense of humor, but I guess you don't have one.
--- NOTE | 2023-05-13 03:46 | NURSING ---
PICC nurse called, per Dr. Deleon's order, for midline insertion. Pt consent obtained. Pt currently w/ no IV access after 4 unsuccessful PIV insertion attmepts by this RN and Allie Hernandez RN. Dr. Deleon aware. PICC staff states they will call in morning to schedule insertion.
--- NOTE | 2023-05-13 04:41 | EKG12_ITS ---
Test Reason : SVT/ AFIB Blood Pressure : / mmHG Vent. Rate : 142 BPM Atrial Rate : 000 BPM P-R Int : 000 ms QRS Dur : 084 ms QT Int : 322 ms P-R-T Axes : 000 -20 080 degrees QTc Int : 495 ms Critical Test Result: High HR Atrial fibrillation with rapid ventricular response with premature ventricular or aberrantly conducte d complexes Nonspecific ST abnormality Abnormal ECG When compared with ECG of 11-MAY-2023 22:17, MANUAL COMPARISON REQUIRED, DATA IS UNCONFIRMED Confirmed by ARTHUR MONSON, YUMIKO ([id number]), makeup editor STEFANIE REEYZ ([id number]) on 05/23/2023 2:13:44 PM Referred By: ROMEL Confirmed By:YUMIKO GIBSON MD
--- NOTE | 2023-05-13 05:00 | NURSING ---
0438- Pt coverted to afib RVR on monitor, EKG confirmed and sent via cortext to Dr. Deleon. x1 dose of 25 mg of Metoprolol ordered. Pt BP 142/85, feeling SOB, SpO2 96 on 2L NC, otherwise asymptomatic
[2023-05-13] MEDS: Metoprolol Tartrate 25 MG Tablet PO (05:11)
[2023-05-13] MEDS: Gabapentin 100 MG Capsule PO ×3 (05:12→22:57)
[2023-05-13] MEDS: Loperamide 2 MG Capsule PO (05:12)
[2023-05-13] MEDS: Budesonide Respules 0.5 MG/2 ML AMPUL.NEB. INHALATION ×2 (07:01→19:34)
[2023-05-13] MEDS: 0.9% Normal Saline 1,000 ML IV.SOLN. 1000 ML OPERA.SITE (07:48)
[2023-05-13] MEDS: PureFlow B 2K Dialysis Soln 1 BAG 6 BAG PF (07:48)
[2023-05-13 08:53] LABS: Absolute Lymphocyte Count 0.56 X10^3/uL (0.83-4.51); Absolute Neutrophil Count 4.7 X10^3/uL (2.0-7.7); Basophil# 0.01 X10^3/uL; Basophil% 0.2 % (0-1); Eosinophil# 0.04 X10^3/uL; Eosinophils% 0.7 % (0-5); Hematocrit 28.5 % (40-54); Hemoglobin 9.3 g/dL (13.0-16.5); Lymphocyte # 0.56 X10^3/ul (0.83-4.51); Lymphocyte % 9.8 % (19-41); Mean Corp Hgb Conc 32.6 g/dL (32-36); Mean Corpuscular Hgb 30.5 pg (27.0-32.0); Mean Corpuscular Volume 93.4 fL (80-94); Mean Platelet Vol. 10.7 fl (6.2-12.0); Monocyte# 0.35 X10^3/uL; Monocyte% 6.1 % (0-10); NRBC Flagged by Analyzer 0 % (0-5); Neutrophil # 4.73 X10^3/uL (2.7-7.7); Neutrophil % 82.8 % (47-70); POSITIVE DIFFERENTIAL YES; Platelet Count 103 K/mm3 (150-450); RBC Distribution Width CV 13.7 % (11.6-14.6); RBC Distribution Width SD 46.6 fl (35.1-43.9); Red Blood Count 3.05 M/mm3 (4.6-6.2); White Blood Count 5.7 K/mm3 (4.4-11.0)
[2023-05-13 08:54] LABS: Differential Indicated SCAN CRITERIA MET
[2023-05-13 09:06] LABS: Anion Gap 6 (5-15); BUN 65 mg/dL (7-18); BUN/Creat Ratio 12.3 RATIO (10-20); Calcium,Total 7.7 mg/dL (8.5-10.1); Chloride 108 mmol/L (98-107); Creatinine, Serum 5.29 mg/dL (0.70-1.30); EST Glomerular Filtration Rate 12 mL/min (>60); Est Glom Filt Rate - Afr Amer 14 mL/min (>60); Estimated Creatinine Clearance 14.76 ml/min; Glucose 126 mg/dL (74-106); Potassium 3.7 mmol/L (3.5-5.1); Sodium Level 139 mmol/L (136-145)
[2023-05-13 09:22] LABS: Hypochromasia 1+
[2023-05-13] MEDS: Heparin 10,000 UNITS/10 ML Vial IV (09:29)
--- NOTE | 2023-05-13 10:34 | PN_ITS ---
Subjective Subjective Patient seen and examined. He had no active complaints. Diarrhea has improved. He otherwise feels well. Review of systems is negative. He was having dialysis at time of review. Objective Data Objective Data Vital Signs: Vital Signs Temp Pulse Resp BP Pulse Ox O2 Del Method O2 Flow Rate 97.9 F 101 H 13 118/63 97 Nasal Cannula 2 05/13/23 09:51 05/13/23 09:51 05/13/23 09:51 05/13/23 09:51 05/13/23 09:51 05/13/23 09:51 05/13/23 09:51 Oxygen Flow Rate (L/min) 2 Oxygen Delivery Method Nasal Cannula Weight: 201 lb 8.04 oz Body Mass Index (BMI) 28.8 Intake & Output: Intake and Output for Last 24 Hours 05/11/23 05/12/23 05/13/23 23:59 23:59 23:59 Intake Total 1645 / 1645 32.92 / 32.92 Output Total 680 / 680 800 / 800 Balance 965 / 965 -767.08 / -767.08 Lab / Micro Data 05/13/23 Unknown 05/13/23 Unknown Labs: Laboratory Results - last 24 hr 05/12/23 08:09: POC Glucose 82 05/12/23 12:22: POC Glucose 105 05/12/23 17:06: POC Glucose 108 H 05/12/23 21:43: POC Glucose 124 H 05/13/23 : WBC 5.7, RBC 3.05 L, Hgb 9.3 L, Hct 28.5 L, MCV 93.4, MCH 30.5, MCHC 32.6, RDW Std Deviation 46.6 H, RDW Coeff of Silvia 13.7, Plt Count 103 L, MPV 10.7, Immature Gran % (Auto) 0.400, Neut % (Auto) 82.8 H, Lymph % (Auto) 9.8 L, [place] % (Auto) 6.1, Eos % (Auto) 0.7, Baso % (Auto) 0.2, Absolute Neuts (auto) 4.7, Absolute Lymphs (auto) 0.56 L, Nucleated RBC % 0, Hypochromasia 1+, Sodium 139, Potassium 3.7, Chloride 108 H, Carbon Dioxide 25.0, Anion Gap 6, BUN 65 H, Creatinine 5.29 H, Estim Creat Clear Calc 14.76, Est GFR (MDRD) Af Amer 14 L, Est GFR (MDRD) Non-Af 12 L, BUN/Creatinine Ratio 12.3, Glucose 126 H, Calcium 7.7 L Micro: Microbiology 05/12/23 00:55 Mucosa - Eye Respiratory Panel (PCR) - Final 05/11/23 23:11 Stool C. difficile DNA Amplification - Final 05/12/23 00:51 Urine, Clean Catch Legionella Antigen - Final 05/12/23 00:51 Urine, Clean Catch Streptococcus pneumoniae Antigen (M - Final 05/12/23 00:55 Mucosa - Nasopharyngeal Coronavirus COVID-19 PCR - Final 05/11/23 23:23 Stool Enteric Bacteriology - Final Physical Exam Const alert, oriented x3 and no apparent distress General Appearance: cooperative HEENT normocephalic, head/scalp atraumatic, moist oral mucous membranes and oropharynx normal Eyes PERRL and EOMs intact bilaterally Neck no lymphadenopathy Lymph Lymphatic: no lymphadenopathy noted and no lymphedema noted Resp normal respiratory effort, normal air movement and clear to auscultation bilaterally Cardio regular rate, regular rhythm, S1 normal heart sound, S2 normal heart sound and no murmurs GI GI Narrative: abdomen minimally tender generally, no guarding or rebound tenderness, normal bowel sounds Extremity normal capillary refill, no clubbing, cyanosis or edema and no calf tenderness Extremity Narrative: dialysis catheter in place in the chest. General Extremity: no tenderness to palpation of joints or extremities Skin General Skin Exam: no breakdown Neuro CN's II-XII intact bilaterally, no focal motor deficits, no sensory deficits noted and deep tendon reflexes 2+ bilaterally Motor Exam: strength 5/5 throughout and general weakness Psych thought process normal, cooperative and affect normal Assessment & Plan Assessment/Plan (1) Gastroenteritis: PLAN: Plan #Acute gastroenteritis * Likely viral. Stool for enteric pathogens negative. C. difficile also negative. He states he recently ate some ketonemia for his birthday. * diarrhea is improving. * now tolerating a diet and denies any vomiting. * Continue hydration with IV fluids. Give loperamide if diarrhea worsens. * * #ESRD: On hemodialysis Wednesdays and Fridays. Nephrology on board. Having dialysis today #Hyperkalemia: resolved. K is 3.7 today. #Heart failure preserved EF: On metoprolol. Still making urine. not on diuretics. Not in fluid overload #Chronic respiratory failure due to COPD: Not in exacerbation. Breathing treatments bronchodilators. #Type 2 diabetes mellitus with neuropathy. On Lantus. Insulin sliding scale. Accu-Cheks ACHS. #Paroxysmal A-fib: On metoprolol. On Eliquis. #History of stroke: Has left-sided hemiparesis. On Eliquis. On statin. #Hypertension: On amlodipine and metoprolol. IV hydralazine as needed. #Anxiety and depression: On duloxetine #Seizure disorder: On Depakote #Restless leg syndrome: On gabapentin #GERD: On PPI #DVT prophylaxis: On Eliquis Disposition: anticipate dc tomorrow as diarrhea is improving signficantly Charges/Coding Visit Charges Inpatient E&M: 46161 Subs Hosp L2
[2023-05-13] MEDS: BRIMONIDINE 0.2% 5ML BOTTLE 1 DRP OPHTHALMIC ×2 (10:58→23:00)
[2023-05-13] MEDS: Piperacil/Tazobactam 3.375 GM in 0.9% Normal Saline (50mL MB+) 50 ML IV ×2 (10:58→22:57)
[2023-05-13] MEDS: APIXABAN 5 MG TABLET PO ×2 (10:59→22:58)
[2023-05-13] MEDS: Divalproex Sodium 250 MG Tablet PO ×2 (10:59→22:59)
[2023-05-13] MEDS: Menthol/Lanolin/Calamine/Znox 113 GM Tube 1 APPLIC TOPICAL ×2 (10:59→22:58)
[2023-05-13] MEDS: amLODIPine 10 MG Tablet PO (10:59)
[2023-05-13] MEDS: Metoprolol Tartrate 25 MG Tablet 12.5 MG PO ×2 (11:00→23:08)
[2023-05-13 12:05] LABS: Bedside Glucose 169 mg/dL (74-106)
--- NOTE | 2023-05-13 13:58 | PCM.PN.REN ---
Subjective Subjective No new complaints Objective Data Objective Data Vital Signs: Vital Signs Temp Pulse Resp BP Pulse Ox O2 Del Method O2 Flow Rate 97.9 F 104 H 13 118/63 97 Nasal Cannula 2 05/13/23 09:51 05/13/23 11:00 05/13/23 09:51 05/13/23 09:51 05/13/23 09:51 05/13/23 09:51 05/13/23 09:51 Oxygen Flow Rate (L/min) 2 Oxygen Delivery Method Nasal Cannula Weight: 91.4 kg Body Mass Index (BMI) 28.8 Intake & Output: Intake and Output for Last 24 Hours 05/11/23 05/12/23 05/13/23 23:59 23:59 23:59 Intake Total 1645 / 1645 32.92 / 32.92 Output Total 680 / 680 800 / 800 Balance 965 / 965 -767.08 / -767.08 Lab / Micro Data 05/13/23 Unknown 05/13/23 Unknown Labs: Laboratory Results - last 24 hr 05/12/23 17:06: POC Glucose 108 H 05/12/23 21:43: POC Glucose 124 H 05/13/23 11:41: POC Glucose 169 H 05/13/23 : WBC 5.7, RBC 3.05 L, Hgb 9.3 L, Hct 28.5 L, MCV 93.4, MCH 30.5, MCHC 32.6, RDW Std Deviation 46.6 H, RDW Coeff of Silvia 13.7, Plt Count 103 L, MPV 10.7, Immature Gran % (Auto) 0.400, Neut % (Auto) 82.8 H, Lymph % (Auto) 9.8 L, [place] % (Auto) 6.1, Eos % (Auto) 0.7, Baso % (Auto) 0.2, Absolute Neuts (auto) 4.7, Absolute Lymphs (auto) 0.56 L, Nucleated RBC % 0, Hypochromasia 1+, Sodium 139, Potassium 3.7, Chloride 108 H, Carbon Dioxide 25.0, Anion Gap 6, BUN 65 H, Creatinine 5.29 H, Estim Creat Clear Calc 14.76, Est GFR (MDRD) Af Amer 14 L, Est GFR (MDRD) Non-Af 12 L, BUN/Creatinine Ratio 12.3, Glucose 126 H, Calcium 7.7 L Micro: Microbiology 05/12/23 00:55 Mucosa - Eye Respiratory Panel (PCR) - Final 05/11/23 23:11 Stool C. difficile DNA Amplification - Final 05/12/23 00:51 Urine, Clean Catch Legionella Antigen - Final 05/12/23 00:51 Urine, Clean Catch Streptococcus pneumoniae Antigen (M - Final 05/12/23 00:55 Mucosa - Nasopharyngeal Coronavirus COVID-19 PCR - Final 05/11/23 23:23 Stool Enteric Bacteriology - Final Physical Exam Narrative Alert awake oriented x 3 no obvious distress no pallor no icterus no JVD s1s2 no murmurs lungs clear abdomen soft no organomegaly no edema no cyanosis Assessment & Plan Assessment/Plan (1) End stage renal disease: (2) Hyperkalemia: (3) Gastroenteritis: PLAN: Plan This is a 63-year-old male with past medical history significant for ESRD on hemodialysis at [facility] Tuesday schedule who presented to emergency room with complaints of nausea, vomiting, diarrhea. C. difficile negative. CT abdomen pelvis fluid distention of small intestine with enteritis versus partial obstruction; chest x-ray patchy bilateral opacities possible pneumonia. Patient admitted for further evaluation and treatment. He is receiving IV antibiotics. Patient last dialyzed at the kidney center on May 06. He does have a history of noncompliance with dialysis, tends to miss dialysis sessions. His estimated dry weight is 85 kg. ESRD. Dialysis today. Typical schedule is Tuesday, Tuesday, Tuesday but he has been missing Tuesday consistently. He says he has several other appointments to go to. Has a AV fistula which has not been used yet. Hyperkalemia. Potassium is better. Gastroenteritis. Presumably due to food poisoning. Somewhat better.
[2023-05-13 16:24] LABS: Bedside Glucose 139 mg/dL (74-106)
--- NOTE | 2023-05-13 17:05 | CASEMGMT ---
MICHELLE HUNAG note: RN CM to room. Pt sitting up in chair in room. Pt currently wearing O2. He states, if he needs O2 @ discharge, he prefers [employer] for DME co. He verifies he does have a pulse ox @ home. Pt states he would also like to get a walker @ discharge. Scripts for O2 and FWW prepared and placed on pt's chart. Scripts will need signed by physician. Green sheet w/instructions to staff also placed on chart, should pt discharge over the weekend. Kelsi CORTÉSN MICHELLE CM
--- NOTE | 2023-05-13 17:05 | CASEMGMT ---
MICHELLE CM in to patient room to discuss possible oxygen needs and any additional needs upon discharge with patient. Patient states he chooses to use [employer] as his oxygen DME supplier if needed. RN REINA filled out a green sheet for oxygen as well as [employer] paperwork and attached to patient's chart. Patient requests to have a standard walker to assist him with his 14 steps inside his apartment (he states he does have a wheelchair at home as well). RN prepared script for walker to be signed upon discharge. Script for walker also placed with patient's chart. Patient states he does not anticipate any additional needs upon discharge at this time. He wishes to discharge home with family support, and denies need for HHC at this time. Patient denies having any further questions or concerns at this time. Vinita HAGEN, RN, CM
[2023-05-13] MEDS: Atorvastatin Calcium 10 MG Tablet 5 MG PO (22:59)
[2023-05-13] MEDS: DULoxetine Hcl 60 MG Capsule PO (23:00)
[2023-05-14 00:31] LABS: Bedside Glucose 114 mg/dL (74-106)
[2023-05-14 05:04] VITALS: BP 162/82; PULSE 80; RESP 16; TEMP 36.8; O2SAT 99
[2023-05-14] MEDS: Gabapentin 100 MG Capsule PO (05:05)
[2023-05-14 06:00] VITALS: BMI 28.9
[2023-05-14] MEDS: Budesonide Respules 0.5 MG/2 ML AMPUL.NEB. INHALATION (06:47)
[2023-05-14 06:48] VITALS: PULSE 85; RESP 16; O2SAT 96
[2023-05-14 07:09] LABS: Bedside Glucose 98 mg/dL (74-106)
[2023-05-14 07:57] LABS: Absolute Lymphocyte Count 0.83 X10^3/uL (0.83-4.51); Basophil# 0.02 X10^3/uL; Basophil% 0.5 % (0-1); Eosinophil# 0.11 X10^3/uL; Eosinophils% 2.5 % (0-5); Hematocrit 28.2 % (40-54); Hemoglobin 9.1 g/dL (13.0-16.5); Lymphocyte # 0.83 X10^3/ul (0.83-4.51); Lymphocyte % 18.8 % (19-41); Mean Corp Hgb Conc 32.3 g/dL (32-36); Mean Corpuscular Hgb 30.1 pg (27.0-32.0); Mean Corpuscular Volume 93.4 fL (80-94); Mean Platelet Vol. 11.7 fl (6.2-12.0); Monocyte# 0.45 X10^3/uL; Monocyte% 10.2 % (0-10); NRBC Flagged by Analyzer 0 % (0-5); Neutrophil # 2.98 X10^3/uL (2.7-7.7); Neutrophil % 67.5 % (47-70); Platelet Count 115 K/mm3 (150-450); RBC Distribution Width CV 13.7 % (11.6-14.6); RBC Distribution Width SD 46.6 fl (35.1-43.9); Red Blood Count 3.02 M/mm3 (4.6-6.2); White Blood Count 4.4 K/mm3 (4.4-11.0)
[2023-05-14 09:25] VITALS: BP 156/73; PULSE 75; RESP 19; TEMP 36.5; O2SAT 94
[2023-05-14] MEDS: BRIMONIDINE 0.2% 5ML BOTTLE 1 DRP OPHTHALMIC (09:32)
[2023-05-14 09:34] VITALS: BP 156/73; PULSE 75
[2023-05-14] MEDS: amLODIPine 10 MG Tablet PO (09:34)
[2023-05-14] MEDS: Metoprolol Tartrate 25 MG Tablet 12.5 MG PO (09:34)
[2023-05-14] MEDS: APIXABAN 5 MG TABLET PO (09:35)
[2023-05-14] MEDS: Divalproex Sodium 250 MG Tablet PO (09:35)
[2023-05-14] MEDS: Piperacil/Tazobactam 3.375 GM in 0.9% Normal Saline (50mL MB+) 50 ML IV (09:44)
--- NOTE | 2023-05-14 10:22 | DS.PCM_ITS ---
Providers Date of Admission: 05/11/23 Date of Discharge: 05/14/23 Primary Care Physician: Dr. Amish Han MD Consultations 05/12/23 00:26 Consult: Nephrology Routine Consulting Provider: Katherin Sandoval Reason for Consult: ESRD on HD, missed HD 05/11 EMERGENT Consult: No MD Notified: Yes Date Notified: 05/11/23 Time Notified: 23:45 Method of Notification: Answering Service Reason For Visit: GASTRO/? PNA Diagnosis Discharge Diagnosis (1) End stage renal disease: Status: Acute Code(s): N18.6 - End stage renal disease (2) Hyperkalemia: Status: Acute Code(s): E87.5 - Hyperkalemia (3) Gastroenteritis: Status: Acute Code(s): K52.9 - Noninfective gastroenteritis and colitis, unspecified Plan #Acute gastroenteritis * Likely viral. Stool for enteric pathogens negative. C. difficile also negative. He states he recently ate some ketonemia for his birthday. * diarrhea is improving. * now tolerating a diet and denies any vomiting. * Continue hydration with IV fluids. Give loperamide if diarrhea worsens. * * #ESRD: On hemodialysis Wednesdays and Fridays. Nephrology on board. Having dialysis today #Hyperkalemia: resolved. K is 3.7 today. #Heart failure preserved EF: On metoprolol. Still making urine. not on diuretics. Not in fluid overload #Chronic respiratory failure due to COPD: Not in exacerbation. Breathing treatments bronchodilators. #Type 2 diabetes mellitus with neuropathy. On Lantus. Insulin sliding scale. Accu-Cheks ACHS. #Paroxysmal A-fib: On metoprolol. On Eliquis. #History of stroke: Has left-sided hemiparesis. On Eliquis. On statin. #Hypertension: On amlodipine and metoprolol. IV hydralazine as needed. #Anxiety and depression: On duloxetine #Seizure disorder: On Depakote #Restless leg syndrome: On gabapentin #GERD: On PPI #DVT prophylaxis: On Eliquis Disposition: anticipate dc tomorrow as diarrhea is improving signficantly Medications at Discharge Home Medications insulin glargine 100 unit/mL subcutaneous solution (Lantus U-100 Insulin) 18 unit subcut QPM 03/16/22 insulin lispro 100 unit/mL subcutaneous pen (Humalog KwikPen (U-100) Insulin) 5 unit subcut TID 03/16/22 apixaban 5 mg tablet (Eliquis) 5 mg PO BID #60 tabs 03/24/22 atorvastatin 10 mg tablet 5 mg PO QHS 05/20/22 albuterol sulfate 90 mcg/actuation aerosol inhaler (Ventolin HFA) 2 puff inhalation Q6H PRN Wheezing 08/24/22 metoprolol tartrate 25 mg tablet 12.5 mg PO BID 08/24/22 amlodipine 10 mg tablet 10 mg PO DAILY #30 tabs 09/15/22 tramadol 50 mg tablet 50 mg PO Q4H PRN PRN Pain 3 days #20 tabs 12/02/22 divalproex 500 mg tablet,delayed release (Depakote) 500 mg PO BID #60 tabs 03/08/23 duloxetine 60 mg capsule,delayed release 60 mg PO QHS #30 caps 03/08/23 Manual wheelchair #1 ea 03/24/23 gabapentin 100 mg capsule 100 mg PO TID #90 caps 04/20/23 brimonidine 0.2 % eye drops 1 drp ophthalmic (eye) BID 05/11/23 Hospital Course Operations None Procedures None Summary of Care Provided Minutes Spent on Discharge: 45 Hospital Course: Patient is a 63-year-old male with a past medical history as outlined was admitted through the ED on 05/11/2023 with a complaint of persistent nausea and vomiting as well as diffuse abdominal pain and diarrhea. Symptoms have started on the day of admission. He had missed his dialysis appointment on the day of admission due to the symptoms. His was present and it turned out that patient and his and daughter had had a catered meal for his birthday during that week. Symptoms have subsequently started. CT of the abdomen and pelvis showed fluid distention of the small intestine with enteritis versus partial obstruction. His symptoms were thought to be more likely due to enteritis from the gastroenteritis he was having. C. difficile testing was done and was negative and enteric panel was also negative. Patient was hydrated with fluids. Nephrology was consulted on account of dialysis needs. He did get dialysis while he was in the hospital. Diarrhea gradually resolved and he felt much better. He remained stable and was discharged home on 05/14/2023. He is follow- up with his primary care doctor within 1 to 2 weeks and also to follow-up with nephrology. Patient seen and examined prior to discharge. He felt much better and had no active complaints. Review of systems otherwise negative. Labs and vitals reviewed. Home medication reviewed and reconciled. Physical Exam Const alert, oriented x3 and no apparent distress General Appearance: cooperative, comfortable and well kempt HEENT normocephalic, head/scalp atraumatic, hearing grossly normal bilaterally, moist oral mucous membranes and oropharynx normal Mouth: oral and palatal mucosa normal Eyes PERRL and EOMs intact bilaterally Neck no lymphadenopathy Lymph Lymphatic: no lymphadenopathy noted and no lymphedema noted Resp normal respiratory effort, normal air movement, no use of accessory muscles and clear to auscultation bilaterally Cardio regular rate, regular rhythm, S1 normal heart sound, S2 normal heart sound and no murmurs GI normal to inspection, nondistended, normoactive bowel sounds, soft to palpation and non-tender Extremity normal to inspection, full ROM, normal capillary refill, no clubbing, cyanosis or edema and no calf tenderness Extremity Narrative: dialysis catheter in place in the chest. General Extremity: no tenderness to palpation of joints or extremities Skin no rashes or lesions noted General Skin Exam: no breakdown Neuro oriented x3, CN's II-XII intact bilaterally, moves all extremities, no focal motor deficits, no sensory deficits noted and deep tendon reflexes 2+ bilaterally Motor Exam: strength 5/5 throughout and general weakness Psych thought process normal, cooperative and affect normal Weight / BMI Weight Weight: 201 lb 15.095 oz Body Mass Index (BMI) 28.9 ABG / Lab / Microbiology Data 05/14/23 07:10 05/13/23 Unknown Laboratory: Laboratory Results - last 24 hr 05/13/23 11:41: POC Glucose 169 H 05/13/23 16:07: POC Glucose 139 H 05/13/23 23:15: POC Glucose 114 H 05/14/23 06:50: POC Glucose 98 05/14/23 07:10: WBC 4.4, RBC 3.02 L, Hgb 9.1 L, Hct 28.2 L, MCV 93.4, MCH 30.1, MCHC 32.3, RDW Std Deviation 46.6 H, RDW Coeff of Silvia 13.7, Plt Count 115 L, MPV 11.7, Immature Gran % (Auto) 0.500, Neut % (Auto) 67.5, Lymph % (Auto) 18.8 L, [place] % (Auto) 10.2 H, Eos % (Auto) 2.5, Baso % (Auto) 0.5, Absolute Neuts (auto) 3.0, Absolute Lymphs (auto) 0.83, Nucleated RBC % 0 Microbiology: Microbiology 05/12/23 00:55 Mucosa - Eye Respiratory Panel (PCR) - Final 05/11/23 23:11 Stool C. difficile DNA Amplification - Final 05/12/23 00:51 Urine, Clean Catch Legionella Antigen - Final 05/12/23 00:51 Urine, Clean Catch Streptococcus pneumoniae Antigen (M - Final 05/12/23 00:55 Mucosa - Nasopharyngeal Coronavirus COVID-19 PCR - Final 05/11/23 23:23 Stool Enteric Bacteriology - Final D/C Instructions Discharge Diet: Low fat / Low cholesterol Discharge Activity: Return to Normal Activity Weight Bearing Status: Weight bearing as tolerated Call your doctor if you observe: Fever of 101 or Higher, Shortness of breath, Dizziness, Swelling in the ankles, Chest pain and Increased palpitations (irr egular heartbeat) Meaningful Use Info Meaningful Use Diagnoses (Choose all that apply): None applicable Discharge Plan Admission Admit Date/Time: 05/11/23 22:47 Primary Reason for Your Visit: diarrhea Attending Provider: Delphine Ness Primary Care Provider: Amish Han Consulting Providers: Unique Deleon; Katherin Sandoval Instructions Patient Instructions: ED Diarrhea, Viral (Adult) Discharge Orders/Prescriptions Prescriptions: Continued albuterol sulfate [Ventolin HFA] 90 mcg/actuation HFA aerosol inhaler 2 puff inhalation Q6H PRN (Reason: Wheezing) metoprolol tartrate 25 mg tablet 12.5 mg PO BID divalproex [Depakote] 500 mg tablet,delayed release (DR/EC) 500 mg PO BID Qty: 60 5RF duloxetine 60 mg capsule,delayed release(DR/EC) 60 mg PO QHS Qty: 30 4RF Rx Instructions: Begin after completing one week course of duloxetine 30mg nightly. gabapentin 100 mg capsule 100 mg PO TID Qty: 90 3RF insulin lispro [Humalog KwikPen Insulin] 100 unit/mL Insulin Pen 5 unit SUBCUT TID insulin glargine [Lantus U-100 Insulin] 100 unit/mL Solution 18 unit SUBCUT QPM Eliquis 5 mg tablet 5 mg PO BID Qty: 60 0RF atorvastatin 10 mg Tablet 5 mg PO QHS amlodipine 10 mg tablet 10 mg PO DAILY Qty: 30 0RF tramadol 50 mg tablet 50 mg PO Q4H PRN PRN (Reason: Pain) 3 Days Qty: 20 0RF brimonidine 0.2 % drops 1 drp ophthalmic (eye) BID Patient Comments: Instill 1 drop in the right eye 2 times a day (DME) Manual wheelchair See Rx Instructions .Route .MEDSUPPLY Qty: 1 0RF Rx Instructions: ICD 10: Polyneuropathy (G62.9); cerebral infarction (I69.30); weakness (R53.1) Referrals / Follow Up: Amish Han MD [Primary Care Provider] - Within 2 Weeks Disposition Disposition (needs filled in before D/C Order can be placed): Home, Self Care Charges/Coding Visit Charges Inpatient E&M: 63414 Disch Hosp >30min
[2023-05-14 11:44] LABS: Bedside Glucose 105 mg/dL (74-106)
[2023-05-18 02:02] LABS: Bedside Glucose 249 mg/dL (74-106)
== END 2023-05-14 11:53 | disposition home or self-care (01) | DRG 391 ==
LOC: ED 22:02 → ICU 05-12 02:49 → MS3 05-13 17:40
PROVIDERS: Nurse Practitioner Adult Health; Admitting Provider Family Medicine; Emergency Provider Emergency Medicine; PCP Family Medicine; Visit Provider Student in an Organized Health Care Education/Training Program
DX: A08.4 Viral intestinal infection, unspecified (principal); N18.6 End stage renal disease; I13.2 Hypertensive heart and chronic kidney disease with heart failure and with stage 5 chronic kidney disease, or end stage renal disease; I69.354 Hemiplegia and hemiparesis following cerebral infarction affecting left non-dominant side; J96.11 Chronic respiratory failure with hypoxia; I50.32 Chronic diastolic (congestive) heart failure; D63.1 Anemia in chronic kidney disease; I48.0 Paroxysmal atrial fibrillation; G25.81 Restless legs syndrome; E11.22 Type 2 diabetes mellitus with diabetic chronic kidney disease; J44.9 Chronic obstructive pulmonary disease, unspecified; G40.909 Epilepsy, unspecified, not intractable, without status epilepticus; E11.42 Type 2 diabetes mellitus with diabetic polyneuropathy; Z79.4 Long term (current) use of insulin; Z99.2 Dependence on renal dialysis; F32.A Depression, unspecified; E87.5 Hyperkalemia; K21.9 Gastro-esophageal reflux disease without esophagitis; E78.00 Pure hypercholesterolemia, unspecified; F41.9 Anxiety disorder, unspecified; F17.220 Nicotine dependence, chewing tobacco, uncomplicated; Z91.158 Patient's noncompliance with renal dialysis for other reason; Z79.01 Long term (current) use of anticoagulants; Z79.899 Other long term (current) drug therapy
CPT/HCPCS: 36415; 71045; 74176; 80048; 80053; 81001; 82962; 83605; 83690; 83735; 84100; 84145; 84484; 85025; 85610; 85730; 87040; 87449; 87493; 87506; 87633; 87635; 87641; 90937; 93005; 94640; 94668; 99252; 99285; J7030; J7050; A4216; G0257; G0463; J0612; J0696; J2405

== ENCOUNTER → 2023-07-22 | Outpatient (CLI) | payer MEDICARE, MEDICAID, SELFPAY ==
[2023-07-22 10:18] LABS: Absolute Lymphocyte Count 0.74 X10^3/uL (0.83-4.51); Absolute Neutrophil Count 3.3 X10^3/uL (2.0-7.7); Basophil# 0.03 X10^3/uL; Basophil% 0.6 % (0-1); Eosinophils% 4.2 % (0-5); Hematocrit 36.7 % (40-54); Hemoglobin 11.7 g/dL (13.0-16.5); Lymphocyte # 0.74 X10^3/ul (0.83-4.51); Lymphocyte % 15.7 % (19-41); Mean Corp Hgb Conc 31.9 g/dL (32-36); Mean Corpuscular Hgb 30.5 pg (27.0-32.0); Mean Corpuscular Volume 95.6 fL (80-94); Monocyte# 0.45 X10^3/uL; Monocyte% 9.5 % (0-10); NRBC Flagged by Analyzer 0 % (0-5); Neutrophil # 3.28 X10^3/uL (2.7-7.7); Neutrophil % 69.6 % (47-70); Platelet Count 172 K/mm3 (150-450); RBC Distribution Width CV 14.9 % (11.6-14.6); Red Blood Count 3.84 M/mm3 (4.6-6.2); White Blood Count 4.7 K/mm3 (4.4-11.0)
[2023-07-22 10:50] LABS: Hemoglobin A1c 5.4 % (3.8-5.6)
[2023-07-22 11:05] LABS: AST(SGOT) 12 U/L (15-37); Alanine Aminotransfer ALT/SGPT 16 U/L (16-61); Albumin, Serum 3.5 g/dL (3.2-5.0); Alkaline Phosphatase 60 U/L (45-117); Anion Gap 13 (5-15); BUN 108 mg/dL (7-18); BUN/Creat Ratio 8.3 RATIO (10-20); Calcium,Total 7.3 mg/dL (8.5-10.1); Chloride 103 mmol/L (98-107); Cholesterol 125 mg/dL (200); EST Glomerular Filtration Rate 4 mL/min (>60); Est Glom Filt Rate - Afr Amer 5 mL/min (>60); Globulin 3.6 g/dL (2.2-4.2); Glucose 156 mg/dL (74-106); High Density Lipoprotein 43 mg/dL; Magnesium 2.5 mg/dL (1.6-2.6); Potassium 5.4 mmol/L (3.5-5.1); Protein, Total 7.1 g/dL (6.4-8.2); Sodium Level 139 mmol/L (136-145); Triglycerides 74 mg/dL; Very Low Density Lipoprotein 15 mg/dL (5-40)
== END | disposition home or self-care (01) ==
LOC: MFPLAB 08:50
PROVIDERS: PCP Family Medicine; Visit Provider Family Medicine
DX: E11.8 Type 2 diabetes mellitus with unspecified complications (principal); I48.91 Unspecified atrial fibrillation; E78.00 Pure hypercholesterolemia, unspecified
CPT/HCPCS: 36415; 80053; 80061; 83036; 83735; 85025

== ENCOUNTER → 2023-07-25 | Outpatient (CLI) | payer MEDICARE, MEDICAID, SELFPAY ==
[2023-07-25 15:53] LABS: Mucous, Urine 0 SEEN /hpf (<or=2+); White Blood Cells 0 SEEN /hpf (0-5)
[2023-07-25 18:16] LABS: Color, Urine Yellow (Yellow); Glucose, Dipstick 100 mg/dl (Normal); Ketone-Dipstick Negative (Negative); Leukocyte Esterase-Dipstick Negative /ul (Negative); Nitrite-Dipstick Negative (Negative); Occult Blood-Urine 25 /ul (Negative); Protein-Dipstick 500 mg/dl (Negative); Specific Gravity, Urine 1.015 (1.002-1.030); Urine Bilirubin Dipstick Negative (Negative); Urine Clarity Clear (Clear); Urine Urobilinogen Normal (Normal)
[2023-07-25 18:24] LABS: Bacteria 2+ /hpf (None Seen); Red Blood Cells-Urine 0-5 SEEN /hpf (0-5); Squamous Epithelial Cells - UA 0-5 SEEN /hpf (0-5)
[2023-07-25 19:06] LABS: Microalbumin:Creatinine Ratio 5410.3 mg/g CRE (<30 mg/g CRE); Protein, Urine (Random) 634.6 mg/dL (<11.9); Protein:Creat Ratio 6430 mg/g CRE (0-200)
== END | disposition home or self-care (01) ==
LOC: MFPLAB 15:52
PROVIDERS: PCP Family Medicine; Visit Provider Family Medicine
DX: E11.8 Type 2 diabetes mellitus with unspecified complications (principal)
CPT/HCPCS: 81001; 82043; 82570; 84156

== ENCOUNTER 2023-07-31 16:24 | Observation (INO) | payer MEDICARE, MEDICAID, SELFPAY ==
[2023-07-31] VITALS (8 sets, daily range): BP systolic 128–173; BP diastolic 78–96; PULSE 71–105; RESP 14–18; TEMP 35.9–36.7; O2SAT 93–98; BMI 30.7; BMI 28.1
--- NOTE | 2023-07-31 16:39 | EDS_ITS ---
HPI History of Present Illness Chief Complaint: Weakness [facility] Medical History Acute and chronic respiratory failure with hypoxia Ambulates with cane Arthritis Back pain Cardiology follow-up encounter CHF (congestive heart failure) Chronic kidney disease, stage 4 (severe) Dietary restriction End stage renal disease Former smoker Heartburn High cholesterol History of atrial fibrillation History of echocardiogram History of pain when walking History of renal dialysis History of renal disease History of stress test HTN (hypertension) Injury of head and neck Insulin dependent diabetes mellitus Migraine headache Peripheral neuropathy Restless legs Seizures Stroke Syncope TIA (transient ischemic attack) Wears glasses Wears partial dentures Home Medications apixaban 5 mg tablet (Eliquis) 5 mg PO BID #60 tabs 03/24/22 [Rx Last Taken 09/16/22] atorvastatin 10 mg tablet 20 mg PO QHS 05/20/22 [History Last Taken Unknown] albuterol sulfate 90 mcg/actuation aerosol inhaler (Ventolin HFA) 2 puff inhalation Q6H PRN Wheezing 08/24/22 [History Last Taken Unknown] metoprolol tartrate 25 mg tablet 25 mg PO BID 08/24/22 [History Last Taken Unknown] amlodipine 10 mg tablet 10 mg PO DAILY #30 tabs 09/15/22 [Rx Last Taken 09/17/22] Manual wheelchair #1 ea 03/24/23 [Rx Last Taken Unknown] gabapentin 100 mg capsule 100 mg PO TID #90 caps 04/20/23 [Rx Last Taken Unknown] brimonidine 0.2 % eye drops 1 drp ophthalmic (eye) BID 05/11/23 [History Last Taken Unknown] divalproex 500 mg tablet,delayed release (Depakote) 1,000 mg PO BID 07/31/23 [History Last Taken Unknown] Allergy/AdvReac Type Severity Reaction Status Date / Time lisinopril AdvReac Severe Other Verified 07/31/23 16:32 oxycodone AdvReac Severe Other Verified 07/31/23 16:32 hydrocodone bitartrate AdvReac Mild HYPER Verified 07/31/23 16:32 [From Vicodin] Family History Father Cancer Prostate Heart disease Mother Heart disease Diabetes Other COPD (chronic obstructive pulmonary disease) Surgical History History of rotator cuff surgery History of umbilical hernia repair Hx of arteriovenostomy for renal dialysis Hx of left cataract extraction Hx of right cataract extraction S/P arteriovenous (AV) fistula creation Status post foot surgery Social History household members: spouse and children number of children: 3 current occupational status: disabled Smoking Status: Never smoker Smokeless tobacco user: snuff second hand exposure: No alcohol intake: never substance use type: does not use what type of physical activity do you participate in: other details: health point frequency: 3-4 times per week [facility]: Other seatbelt use: always EXAM Physical Exam Const Vital Signs: 07/31/23 16:25 07/31/23 16:28 07/31/23 16:29 Temperature 96.6 F L 96.6 F L Temperature Source Temporal Temporal Pulse Rate 92 105 H Respiratory Rate 15 14 Respiratory Effort Normal Non-Labored Respiratory Pattern Normal Blood Pressure 128/78 H 128/78 H Blood Pressure Mean 94 94 Pulse Ox 97 97 Oxygen Delivery Method Room Air Room Air 07/31/23 17:53 07/31/23 19:16 07/31/23 20:00 Temperature 97.5 F L 97.4 F L 98 F Temperature Source Temporal Temporal Temporal Pulse Rate 86 82 77 Respiratory Rate 17 18 18 Respiratory Effort Respiratory Pattern Blood Pressure 132/92 H 173/93 H 171/96 H Blood Pressure Mean 105 119 121 Pulse Ox 95 95 93 Oxygen Delivery Method Room Air Room Air Room Air 07/31/23 21:00 07/31/23 21:22 Temperature 98.1 F 97.8 F Temperature Source Temporal Pulse Rate 76 74 Respiratory Rate 16 16 Respiratory Effort Respiratory Pattern Blood Pressure 153/88 H 150/83 H Blood Pressure Mean 109 105 Pulse Ox 94 98 Oxygen Delivery Method Room Air MDM MDM MDM Narrative Medical decision making narrative: HISTORY OF PRESENT ILLNESS: 63-year-old male presents with concern for weakness. Notes diffuse weakness that is worse in right lower extremity that has been ongoing for greater than 1 week. Known well greater than 1 week ago. Notes he is too weak to get up. Denies any recent trauma or falls. Did not complete entire dialysis treatment. States he still makes urine. Denies any chest pain or shortness of breath. REVIEW OF SYSTEMS: Pertinent positives: Weakness Pertinent negatives: Chest pain, shortness of breath, fever, cough, change in urinary habits, abdominal pain PHYSICAL EXAM: Nursing triage notes reviewed, Vital signs reviewed Constitutional: please see mdm HENT: MMM Eyes: Pupils equal round and reactive to light, Extraocular muscles intact Neck: No stridor, no JVD, full neck ROM Lungs: Clear to auscultation, No wheezing or rales. No increased work of breathing, no conversational dyspnea, no accessory muscle use, no nasal flaring. No respiratory distress noted Heart: Regular rate and rhythm, No murmurs, No rubs and No gallops, 2+ distal pulses (radial, femoral, posterior tibial) in all extremities Abdomen: Soft, there is no tenderness, rigidity, rebound or guarding, no obvious peritoneal signs, no palpable pulsatile abdominal masses, no auscultated abdominal bruit : No CVAT Extremities: No edema Neuro: No focal neurological deficits, cranial nerves II through XII intact, 5/5 strength in bilateral upper extremities, 3-5 strength in right lower extremity, 4 5 strength in left lower extremity. Intact sensation to light touch in all extremities, 2+ reflexes bilateral patella tendons. Normal gait. No ataxia. Skin: No rash or lesions noted MEDICAL DECISION MAKING: Chief Complaint: Weakness External records reviewed: Last ED visit and May 2023 Factors affecting care: Type 2 diabetes, atrial fibrillation, ESRD on hemodialys is, hypertension, hyperlipidemia, CVA with left hemiparesis Social determinants of health: none History obtained from others: Patient's family Consults: Internal medicine [facility] Narrative: Patient was initially hemodynamically stable, afebrile, nontoxic-appearing. Exam with right lower extremity weakness the patient's last known place the patient outside of any TNK with thrombectomy window. I considered the following differential diagnosis: Electrolyte disturbance, COVID, flu, dehydration, acute CVA, arrhythmia, Obtain a broad lab and imaging workup to further elucidate the etiology of the patient's complaints. ALL IMAGES (IF OBTAINED) HAVE BEEN PERSONALLY REVIEWED AND INTERPRETED BY MYSELF. EKG with rate controlled A-fib, left axis deviation, prolonged QT interval, no STEMI, no signs of hyperkalemic changes CBC with no leukocytosis, no anemia, no thrombocytopenia BMP without significant [place] normalities, there is noted CKD, no anion gap to suggest endorgan hypoperfusion CMP without significant hepatobiliary structure High-sensitivity troponin is negative, no evidence of myocardial ischemia COVID and flu are negative CT scan of the head shows no intracranial normality I have personally reviewed the patient's chest x-ray. Chest x-ray is unremarkable for pulmonary edema, pneumothorax, pneumonia or focal cardiopulmonary abnormality. The synthesis of the patient's history, physical exam, labs images suggest potentially subacute CVA. There is no evidence of this on CT scan however given the patient's inability to ambulate and focal weakness I will admit the patient for MRI, PT OT and possible placement. The patient and/or family, caregivers express understanding. The patient and/or family, caregivers agrees with the plan. Shared decision making: I will have a discussion with the patient and or visitors regarding risk/benefits of further testing or admission. They will be made aware of of the risk/benefits inherent in this decision they will be given the opportunity to voice understanding. Total critical care time today provided was at least 0 minutes. This excludes separately billable procedures. Critical care time (if documented) is secondary to the patient having high probability of clinically significant/life threatening deterioration in the patient's condition which required my urgent intervention. Impression: 1. Right leg weakness 2. Inability to ambulate 4. History of end-stage renal disease Dispo: Admit to medical floor discussed with hospitalist (Dr. Hines) Lab Data Labs: Laboratory Results - last 24 hr 07/31/23 17:40 WBC 6.4 RBC 3.86 L Hgb 11.7 L Hct 36.3 L MCV 94.0 MCH 30.3 MCHC 32.2 RDW Std Deviation 48.9 H RDW Coeff of Silvia 14.2 Plt Count 258 MPV 10.9 Immature Gran % (Auto) 0.300 Neut % (Auto) 74.2 H Lymph % (Auto) 12.6 L [place] % (Auto) 7.8 Eos % (Auto) 4.2 Baso % (Auto) 0.9 Absolute Neuts (auto) 4.8 Absolute Lymphs (auto) 0.81 L Nucleated RBC % 0 Sodium 137 Potassium 4.2 Chloride 101 Carbon Dioxide 28.0 Anion Gap 8 BUN 58 H Creatinine 7.86 H* Estim Creat Clear Calc 9.93 Est GFR (MDRD) Af Amer 9 L Est GFR (MDRD) Non-Af 7 L BUN/Creatinine Ratio 7.4 L Glucose 164 H Calcium 7.8 L Total Bilirubin 0.50 AST 22 ALT 16 Alkaline Phosphatase 71 Troponin I High Sens 14 Total Protein 7.5 Albumin 3.3 Globulin 4.2 Albumin/Globulin Ratio 0.8 L Radiography Diagnostic Testing: Clinical Impression(s) from Imaging Studies Chest X-Ray 07/31/23 17:25 IMPRESSION: No acute findings in the chest. Electronically Signed: José Luis Padilla MD at 17:37 EST Reading Location ID and State: [facility] / [place] , Service support , Brain CT 07/31/23 20:45 IMPRESSION: There are no acute findings. Electronically Signed: José Luis Padilla MD at 21:04 EST Reading Location ID and State: [facility] / [place] , Service support , Discharge Plan Triage Chief Complaint: Weakness ED Provider: Irwin Toscano Dx/Rx/DC Orders Prescriptions: No Action albuterol sulfate [Ventolin HFA] 90 mcg/actuation HFA aerosol inhaler 2 puff inhalation Q6H PRN (Reason: Wheezing) metoprolol tartrate 25 mg tablet 25 mg PO BID gabapentin 100 mg capsule 100 mg PO TID Qty: 90 3RF Eliquis 5 mg tablet 5 mg PO BID Qty: 60 0RF atorvastatin 10 mg Tablet 20 mg PO QHS amlodipine 10 mg tablet 10 mg PO DAILY Qty: 30 0RF divalproex [Depakote] 500 mg tablet,delayed release (DR/EC) 1,000 mg PO BID brimonidine 0.2 % drops 1 drp ophthalmic (eye) BID Patient Comments: Instill 1 drop in the right eye 2 times a day (DME) Manual wheelchair See Rx Instructions .Route .MEDSUPPLY Qty: 1 0RF Rx Instructions: ICD 10: Polyneuropathy (G62.9); cerebral infarction (I69.30); weakness (R53.1) Primary Care Provider: Amish Han Referrals: Amish Han MD [Primary Care Provider] -
--- NOTE | 2023-07-31 16:52 | EKG12_ITS ---
Test Reason : WEAKNESS Blood Pressure : / mmHG Vent. Rate : 109 BPM Atrial Rate : 000 BPM P-R Int : 000 ms QRS Dur : 076 ms QT Int : 388 ms P-R-T Axes : 000 -25 -03 degrees QTc Int : 522 ms Atrial fibrillation with rapid ventricular response with premature ventricular or aberrantly conducte d complexes Nonspecific ST and T wave abnormality Prolonged QT Abnormal ECG Confirmed by ARTHUR MONSON, YUMIKO ([id number]), editor producer STEFANIE REYEZ ([id number]) on 08/09/2023 9:16:23 AM Referred By: Confirmed By:YUMIKO GIBSON MD
--- NOTE | 2023-07-31 17:25 | RAD_ITS ---
EXAM: XR CHEST, 1 VIEW CLINICAL INDICATION: Weakness TECHNIQUE: Frontal view of the chest. COMPARISON: 02.18.23. FINDINGS: LUNGS AND PLEURAL SPACES: Unremarkable. No consolidation or edema. No pneumothorax. No effusion. HEART: Unremarkable. Cardiac silhouette not enlarged. MEDIASTINUM: Central airways and mediastinal contour are unremarkable. BONES/JOINTS: Unremarkable. No acute fracture. SOFT TISSUES: Unremarkable. TUBES, LINES AND DEVICES: Right-sided dual-lumen catheter. Tip in the superior vena caval atrial junction. RAD/Chest 1 View (Portable) IMPRESSION: No acute findings in the chest. Electronically Signed: José Luis Padilla MD at 17:37 EST ,
[2023-07-31 17:52] LABS: Absolute Lymphocyte Count 0.81 X10^3/uL (0.83-4.51); Absolute Neutrophil Count 4.8 X10^3/uL (2.0-7.7); Basophil# 0.06 X10^3/uL; Basophil% 0.9 % (0-1); Eosinophil# 0.27 X10^3/uL; Eosinophils% 4.2 % (0-5); Hematocrit 36.3 % (40-54); Hemoglobin 11.7 g/dL (13.0-16.5); Lymphocyte # 0.81 X10^3/ul (0.83-4.51); Lymphocyte % 12.6 % (19-41); Mean Corp Hgb Conc 32.2 g/dL (32-36); Mean Corpuscular Hgb 30.3 pg (27.0-32.0); Mean Platelet Vol. 10.9 fl (6.2-12.0); Monocyte% 7.8 % (0-10); NRBC Flagged by Analyzer 0 % (0-5); Neutrophil # 4.75 X10^3/uL (2.7-7.7); Neutrophil % 74.2 % (47-70); Platelet Count 258 K/mm3 (150-450); RBC Distribution Width CV 14.2 % (11.6-14.6); RBC Distribution Width SD 48.9 fl (35.1-43.9); Red Blood Count 3.86 M/mm3 (4.6-6.2); White Blood Count 6.4 K/mm3 (4.4-11.0)
--- OUTSIDE RECORDS SUMMARY | 2023-07-31 18:08 | XMS RPT_ITS | CCD ---
Author Name Unknown Address [address] [place] [address] Organization [facility] Care Team Providers Care Recreational Assistant Name Role Phone Sherry Delaneyelodia Adams Unavailable Kelle Delaney Unavailable Amish Han Primary Care Provider [phone] Kelle Delaney Unavailable Allergies Allergy Classification Reported Allergen(s) Allergy Type Date of Onset Reaction(s) Facility (1 source) Codeine Drug Allergy 06-14-2020 Anxiety, Other (See Comments) [facility], [place] Medications Current Medications Medication Drug Class(es) Dates Sig (Normalized) Sig (Original) Acetaminophen (1 source) Start: 06-14-2020 acetaminophen (TYLENOL) tablet 650 mg atorvastatin 40 mg oral tablet (2 sources) HMG-CoA Reductase Inhibitor Start: 06-18-2020 take 1 tablet by mouth once daily atorvastatin (LIPITOR) 40 MG tablet Take 1 tablet by mouth nightly 30 tablet 3 06/18/2020 Active Completed/Discontinued Medications Medication Drug Class(es) Dates Sig (Normalized) Sig (Original) acetaminophen 325 mg / oxyCODONE hydrochloride 5 mg oral tablet (3 sources) Opioid Agonist Start: 06-18-2013 PERCOCET 5-325 MG TABS every 12 hours as needed OXYCODONE-ACETAMINO PHEN [id number] Ana Odonnell Problems Active Problems Problem Classification Problem Date Documented Da te Episodic/Chronic Other nervous system disorders (2 sources) Lesion of brain; Translations: [Brain lesion] Onset: 06-16-2020 06-16-2020 Chronic Past or Other Problems Problem Classification Problem Date Documented Da te Episodic/Chronic Epilepsy; convulsions (2 sources) Seizure; Translations: [Seizure (HCC)] Onset: 06-14-2020 06-14-2020 Episodic Other connective tissue disease (3 sources) Rotator cuff syndrome; Translations: [Unspecified rotator cuff tear or rupture of unspecified shoulder, not specified as traumatic] Onset: 06-18-2013 06-18-2013 Episodic Other non-traumatic joint disorders (4 sources) Pain in elbow; Translations: [Shoulder pain] Onset: 09-23-2015 09-23-2015 Episodic Other non-traumatic joint disorders (2 sources) Shoulder pain; Translations: [Pain in unspecified shoulder] 06-18-2013 Episodic Spondylosis; intervertebral disc disorders; other back problems (3 sources) Neck pain; Translations: [Cervicalgia] Onset: 09-07-2016 09-07-2016 Episodic Sprains and strains (3 sources) Strain of muscle, fascia and tendon of other parts of biceps, right arm, initial encounter; Translations: [Strain of muscle, fascia and tendon of other parts of biceps, right arm, initial encounter] Onset: 09-23-2015 09-23-2015 Episodic Superficial injury; contusion (3 sources) Contusion of right elbow, initial encounter; Translations: [Contusion of elbow] Onset: 09-23-2015 09-23-2015 Episodic Results Test Name Value Interpretation Reference Range Facil ity Vital Signs Date Time Vital Sign Value Performing Clinician Facility 06-18-2020 08:35-0500 Body Temperature 97.81 [degF] Leonardo Lozano [place], [place] 06-18-2020 08:35-0500 Pulse (Heart Rate) 95 /min [place] 06-18-2020 08:35-0500 Pulse Oximetry 99 % [place] 06-18-2020 08:35-0500 Respiratory Rate 18 /min [place] 06-18-2020 03:58-0500 BP Diastolic 85 mm[Hg] Leonardo Lozano [place], [place] 06-18-2020 03:58-0500 BP Systolic 128 mm[Hg] [place] 06-15-2020 09:37-0500 Height 177.8 cm [place] 06-14-2020 19:45-0500 BMI (Body Mass Index) 26.79 kg/m2 Leonardo Lozano [facility] [place] 06-14-2020 19:45-0500 Body weight 84.7 kg [facility] [place] 05-17-2014 09:40-0400 BMI (Body Mass Index) 30.82 kg/m2 [facility] Work Phone: 05-17-2014 09:40-0400 Body weight 100.25 kg [facility] Work Phone: 05-17-2014 09:40-0400 Weight 100.25 kg [facility] Work Phone: 10-02-2013 14:49-0500 BP Diastolic 79 mm[Hg] [facility] Work Phone: 10-02-2013 14:49-0500 BP Systolic 114 mm[Hg] [facility] Work Phone: 10-02-2013 14:49-0500 Pulse (Heart Rate) 81 /min [facility] Work Phone: 06-18-2013 09:11-0500 Height 180.34 cm [facility] Work Phone: Encounters Encounter Date Encounter Type Care Provider Facility Start: 06-14-2020 End: 06-18-2020 Evaluation and management of inpatient Leonardo Lozano Work Phone: [facility] Procedures Date Procedure Procedure Detail Performing Clinician Start: 06-20-2020 Microscopic examinat ion of blood, culture Plan of Treatment Date Care Activity Detail Author Start: 06-14-2023 Diabetes screen Diabetes screen [place], [place] Start: 06-15-2021 Lipid panel Lipid screen [place] Start: 06-24-2020 End: 06-24-2020 Office Visit 06/24/2020 Office Visit Neurosurgery Rojelio Moore MD [address] [place] [address] [phone] [facility] Start: 06-24-2020 End: 06-24-2020 Office Visit 06/24/2020 Office Visit Neurosurgery Chuck Montero MD [address] [place] [address] [phone] [facility] [place] Start: 06-16-2020 Annual Wellness Visit (AWV) Annual Wellness Visit (AWV) [place], [place] Start: 04-08-2020 Influenza vaccination Flu vaccine (#1) [place], [place] Start: 09-08-2016 End: 09-08-2016 Physical Therapy General Physical Therapy [facility], [address] [place] [address], [id number] [facility] Work Phone: Start: 09-07-2016 End: 09-07-2016 X-ray exam of neck spine X-Ray, Spine, Cervical 2-3 views [facility] Work Phone: Start: 09-07-2016 End: 09-07-2016 X-ray exam of shoulder X-Ray, Shoulder [facility] Work Phone: Start: 09-23-2015 End: 09-23-2015 X-ray exam of elbow X-Ray, Elbow [facility] Work Phone: Start: 2010 Screening for malignant neoplasm of colon Colon cancer screen colonoscopy [place], [place] Start: 2010 Shingles Vaccine (1 of 2) Shingles Vaccine (1 of 2) [place], [place] Start: 1979 DTaP/Tdap/Td vaccine (1 - Tdap) DTaP/Tdap/Td vaccine (1 - Tdap) [place], [place] Start: 1960 Hepatitis C screening Hepatitis C screen [place], [place] Basic metabolic 2000 panel Basic Metabolic Panel Lab Routine Daily until discontinued starting 06/15/2020, 4 completed [place], [place] Payers Date Payer Category Payer Medicare MEDICARE MEDICAR E PART A AND B [id number] 2019-Present [phone] [place] [address] [place] [address] [id number] Social History Date Type Detail Facility Start: 06-14-2020 Tobacco smoking status NHIS Former s moker [place], [employer] Start: 06-14-2020 Tobacco use and exposure Current use r [facility] History of tobacco use Snuff User [facility] Sex Assigned At Not on file [facility] Exposure to SARS-CoV-2 (event) Not sure [facility] Summary Purpose Family History No Family History Records Found Advance Directives Latest Code Status on File Code Status Date Activated Date Inactivated Comments Full Code 06/14/2020 8:08 PM Hospital Course Note Hospitalist Discharge Summar y Gerber Rico : 1960 Admit date: 06/14/2020 Discharge date: 06/18/2020 Admitting Physician: Leonardo Lozano DO Primary Care Physician: Amish Han MD Discharge Diagnoses: ? 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 HTN HLD ? ? ? DM (diabetes mellitus) (HCC) ? ? HTN (hypertension) ? ? Hyperlipidemia ? ? Peripheral neuropathy Hospital Course: Improved. Gerber Rico?is a 60 y.o.?male?with PMH DM2, HTN, HLD, Episodes of VT at outside hospital, Peripheral Neuropathy?that presented to [facility] on 06/14/2020?from outside facility ([facility])?after admission for new onset seizures workup was significant for a frontal lobe mass. Pt was admitted to the ICU with seizure, found to have a brain mass, stabilized and transferred to the floor AAO X4 Plan for LP today but pt refused. Seen by neurosurgery. Lesion is not amenable to st (more content not included)... History of Present Illness * Aleksey Chavarria, - 06/17/2020 1:25 PM EST [facility] - Infectious Diseases Attending Progress Note Subjective: Following for brain mass. No acute events overnight, pt resting comfortably, continues to deny any fevers, chills, night sweats, abdominal pain, seizure like activity. Is currently video chatting with his in [place]. Is scheduled to receive his LP later this afternoon. Objective: Vitals: BP (!) 179/98 Pulse 92 Temp 97.8 F (36.6 C) (Temporal) Resp 18 Ht 5' 10 (1.778 m) Wt 186lb 11.7 oz (84.7 kg) SpO2 96% BMI 26.79 kg/m Intake/Output Summary (Last 24 hours) at 06/17/2020 1326 Last data filed at 06/17/2020 0500 Gross per 24 hour Intake 1098 ml Output 650 ml Net 448 ml Physical Exam Vitals signs and nursing note reviewed. Constitutional: General: He is not in acute distress. Appearance: Normal appearance. He is well-developed. Comments: Resting comfortably in bed. HENT: Head: Normocephalic and atraumatic. Right Ear: External ear normal. Left Ear: External ear normal. Nose: Nose normal. Mouth/Throat: Mouth: Mucous membranes are moist. Pharynx: Oropharynx is clear. Eyes: General: Right eye: No discharge. Left eye: No discharge. Extraocular Movements: Extraocular movements intact. Conjunctiva/sclera: Conjunctivae normal. Pupils: Pupils are equal, round, and reactive to light. Neck: Musculoskeletal: Normal range of motion and neck supple. No neck rigidity or muscular tenderness. Cardiovascular: Rate and Rhythm: Normal rate and regular rhythm. Pulses: Normal pulses. Heart sounds: Normal heart sounds. No murmur. No friction rub. No gallop. Pulmonary: Effort: Pulmonary effort is normal. No respiratory distress. Breath sounds: Normal breath sounds. No wheezing, rhonchi or rales. Chest: Chest wall: No tenderness. Abdominal: General: Abdomen is flat. Bowel sounds are normal. Palpations: Abdomen is soft. There is no mass. Tenderness: There is no abdominal tenderness. Musculoskeletal: General: No swelling or tenderness. Right lower leg: No edema. Left lower leg: No edema. Skin: General: Skin is warm and dry. Coloration: Skin is not pale. Neurological: General: No focal deficit present. Mental Status: He is alert and oriented to person, place, and time. Mental status is at baseline. Psychiatric: Mood and Affect: Mood and affect normal. Behavior: Behavior normal. Thought Content: Thought content normal. Judgment: Judgment normal. Labs: Component Value Date/Time NA 139 06/17/202023 K 3.9 06/17/202023 CL 111 (H) 06/17/202023 CO2 24 06/17/202023 BUN 14 06/17/202023 CREATININE 0.81 06/17/202023 GLUCOSE 211 (H) 06/17/202023 CALCIUM 8.2 (L) 06/17/202023 PROT 6.1 (L) 06/14/20202112 LABALBU 3.3 (L) 06/14/20202112 BILITOT 0.4 06/14/20202112 ALKPHOS 61 06/14/20202112 AST 22 06/14/20202112 ALT 15 06/14/20202112 PROCAL <0.10 06/17/202023 PROCAL <0.10 06/14/20202112 Component Value Date/Time WBC 5.9 06/17/202023 HGB 11.0 (L) 06/17/202023 HCT 32.3 (L) 06/17/202023 PLT 204 06/17/202023 GRANULOCYTES 53.6 06/17/202023 LYMPHOPCT 35.8 06/17/202023 MONOPCT 6.6 06/17/202023 LABEOS 3.7 06/17/202023 BASOPCT 0.3 06/17/202023 NEUTROABS 3.2 06/17/202023 Micro: -CSF bloodwork: not collected yet Blood cultures: Lab Results Component Value Date BC No growth at 1 day. No growth at 2 days. 06/14/2020 BC No growth at 1 day. No growth at 2 days. 06/14/2020 Reviewed all relevant labs and microbiology data. Lines: PIV L Radiography/Echo/Other: CT Chest/Abd/Pelvis 06/16/2020: Patient Name: GERBER RICO ---CT--- Exam Date/Time 06/16/2020 14:36:[address] Chest/Abdomen/Pelvis (No PO, No IV) Ordering Physician [id number] -BORCHARLES ROJELIO Accession Number [id number] CPT4 Codes 21449 (CT Chest/Abdomen/Pelvis (No PO, No IV)), 43547 (CT Abdomen (No PO, No IV Contrast)) Reason For Exam Rule out Metastatic disease Report CT CHEST WITHOUT CONTRAST: CLINICAL INDICATION: Possible malignancy, seizures withintracranial lesion. TECHNIQUE: Transaxial sequence through the chest from apices through the baseswith 1 mm reconstruction interval. Coronal and sagittal reconstruction images reviewed. COMPARISON:None. FINDINGS: Lungs: No consolidation or atelectasis. No parenchymal or pleural- based nodule or mass. Pleural fluid: None. Heart/Great vessels: No abnormality . A left PICC terminates in the lower SVC. Mediastinum/Marie: Unremarkable on this noncontrast study. Chest wall and lower neck: Unremarkable. Osseous structures: Mild degenerative change of the thoracic spine is noted. IMPRESSION: No evide nce of intrathoracic malignancy. CT ABDOMEN AND PELVIS WITHOUT IV CONTRAST TECHNIQUE: Transaxial sequence through the abdomen and pelvis with 3 mm reconstruction interval. COMPARISON: None. FINDINGS:Exam quality: This examination is limited for the evaluation of solid organs and vascular structures due to the lack of intravenous contrast. Liver: Normal size and contour. No identifiable lesion. Biliary tree: Normal caliber. The gallbladder is nondistended. Spleen: Normal. Adrenals: Normal. Pancreas: Diffuse pancreatic atrophy with fatty replacement. No peripancreatic edema, fat stranding or pe ripancreatic fluid collection. No pancreatic mass. No duct dilation. Kidneys: No contour abnormality or focal renal lesion. Renal collecting systems: No calculi, hydronephrosis or ureteral dilatation. Free fluid: Small amount of free pelvic fluid. Retroperitoneal/mesenteric lymphadenopathy: None. Bowel: Normal caliber bowel loops. Nondistended appendix. Aorta: Atherosclerotic calcifications are seen in the aorta and its branches. The aorta is normal in caliber. Abdominal wall: Postsurgical changes including ventral abdominal wall mesh. Subcutaneous emphysema in the left anterior abdominal wall likely due to subcutaneous injections. Pelvic organs/viscera: No mass identified. Bladder: No calculi or filling defects. Bland catheter is present. Diffuse bladder wall thickening Pelvic lymphadenopathy: None. Osseous structures: No abnormality. IMPRESSION: 1. No definite evidence of abdominopelvic neoplasm. 2. Bladder wall thickening, which could be due to decompression by a catheter but consider cystitis. Small amount of nonspecific free pelvic fluid. 3. Subcutaneous emphysema likely due tosubcutaneous injections. 4. Atrophic pancreas with fatty replacement. Report Dictated on --- Final --- Dictated: 06/16/2020 3:29 pm Dictating Physician: MD RODRIGUEZ NICHOLAS Signed Date and Time: 06/16/2020 3:41 pm Signed by: MD RODRIGUEZ NICHOLAS Transcribed Date and Time: 06/16/2020 3:29 MRI from outside facility: Small ring-enhancing lesions in the R posterior frontal lobe suspiciousfor malignancy or solitary mets. Small abscess is an additional consideration Antimicrobials, Start/End Dates: None Impression: Seizure in the setting of small ring-enhancing lesion in the R posterior lobe- unclear etiology: infectious vs inflammatory vs neoplastic -HIV negative, Toxo IGG pending, TB quantiferon gold pending - low concern for neurocysticercosis, however O and P ordered, has yet to be collected - agree with obtaining LP, to be conducted later this afternoon - f/u LP and CSF labwork - will continue to follow along -Will d/w , please see his attestation for final recommendations Associated attestation - Yohan Alfonso MD - 06/17/2020 6:04 PM EST I performed a physical exam of the patient and discussed his management with the ID team. I reviewed ID resident's note and agree with the documented findings and plan of care. * Jacky Norwood MD - 06/17/2020 12:38 PM EST NEUROSURGERY and SPINE FOLLOW-UP NOTE Patient Name: Gerber Rico Patient : 1960 PCP: Amish Han MD History of Present Ilness: 60yo m with tiny right frontal enhancing lesion. Plan for LP today. No new complaints. Physical Examination: Vitals: 06/17/20 1235 BP: (!) 179/98 Pulse: 92 Resp: 18 Temp: 97.8 F (36.6 C) SpO2: 96% Physical Exam Constitutional: Appearance: Normal appearance. HENT: Head: Normocephalic and atraumatic. Nose: Nose normal. No congestion or rhinorrhea. Mouth/Throat: Mouth: Mucous membranes are moist. Pharynx: Oropharynx is clear. Eyes: General: No scleral icterus. Right eye: No discharge. Left eye: No discharge. Extraocular Movements: Extraocular movements intact. Conjunctiva/sclera: Conjunctivae normal. Neck: Musculoskeletal: Normal range of motion and neck supple. No muscular tenderness. Cardiovascular: Rate and Rhythm: Normal rate and regular rhythm. Pulses: Normal pulses. Pulmonary: Effort: Pulmonary effort is normal. No respiratory distress. Abdominal: Palpations: Abdomen is soft. Tenderness: There is no abdominal tenderness. Musculoskeletal: Normal range of motion. General: No tenderness. Right lower leg: No edema. Left lower leg: No edema. Skin: General: Skin is warm and dry. Neurological: General: No focal deficit present. Mental Status: He is alert and oriented to person, place, and time. Cranial Nerves: No cranial nerve deficit. Motor: No weakness. Psychiatric: Mood and Affect: Mood normal. Behavior: Behavior normal. Neurologic Exam Mental Status Oriented to person, place, and time. Awake and Alert Moves all extremities, no focal motor deficit Radiology Personal review: No new imaging ASSESSMENT / PLAN : Clinically stable. Discussed case with Dr. Moore. We both are in agreement that biopsy/resection at this time would have low yield due to small size of lesion. Follow up with repeat MRI brain w wo contrast in [address] Moore. There are no diagnoses linked to this encounter. * Maria MBenja, DO - 06/17/2020 12:11 PM EST PROGRESS NOTE. NEUROCRITICAL CARE Patient Name:Gerber Rico Patient : 1960 Acct: [id number] Date of Admission: 06/14/2020 Room/Bed: 1325/1325B PCP: Amish Han MD Patient location raya Remains in the hospital due to persistent unresolved acute issues and further testing/LP for ring enhancing lesion on MRI. Subjective: New Complaint:None -No acute events overnight. Patient is resting comfortably in bed. A/ox3. Denies any SOB, chest pain, nausea, vomiting, or diarrhea. -Waiting on LP. Should be done today. Sedation:No Diet/TF:carb control Bland: No VTE prophylaxis: Lovenox-held for LP Antithrombotic therapy in first 24 hrs: N/A Statin therapy for stroke stroke patients: High intensity Anticoagulation on AF patients: N/A no history of AF Activity: Up walking Disposition: Home with follow up with ID and neurosurgery Current Hospital Medications: Current Facility-Administered Medications: insulin lispro (HUMALOG) injection vial 0-18 Units, 0-18 Units, Subcutaneous, TID WC, Valarie Enriquez PA-C, 9 Units at 06/16/20 1730 insulin lispro (HUMALOG) injection vial 0-9 Units, 0-9 Units, Subcutaneous, Nightly, Valarie EnriquezPA-C, 5 Units at 06/16/202141 insulin glargine (LANTUS) injection vial 10 Units, 10 Units, Subcutaneous, Nightly, Valarie Enriquez, PA-C, 10 Units at 06/16/202136 hydrALAZINE (APRESOLINE) injection 10 mg, 10 mg, Intravenous, Q6H PRN, Valarie Enriquez PA-C labetalol (NORMODYNE;TRANDATE) injection 10 mg, 10 mg, Intravenous, Q4H PRN, Valarie Enriquez PA-C metoprolol (LOPRESSOR) injection 5 mg, 5 mg, Intravenous, Q6H PRN, Valarie Enriquez PA-C metoprolol tartrate (LOPRESSOR) tablet 25 mg, 25 mg, Oral, BID, Valarie Enriquez PA-C, 25 mg at 06/17/20 1113 famotidine (PEPCID) tablet 20 mg, 20 mg, Oral, BID, Valarie Enriquez PA-C, 20 mg at 06/17/20 1113 atorvastatin (LIPITOR) tablet 40 mg, 40 mg, Oral, Nightly, Valarie Enriquez PA-C sodium chloride flush 0.9 % injection 10 mL, 10 mL, Intravenous, 2 times per day, Som Mitchell MD, 10 mL at 06/17/20 1114 sodium chloride flush 0.9 % injection 10 mL, 10 mL, Intravenous, PRN, Som Mitchell MD acetaminophen (TYLENOL) tablet 650 mg, 650 mg, Oral, Q6H PRN, 650 mg at 06/16/20 2136 OR acetaminophen (TYLENOL) suppository 650 mg, 650 mg, Rectal, Q6H PRN, Som Mitchell MD polyethylene glycol (GLYCOLAX) packet 17 g, 17 g, Oral, Daily PRN, Som Mitchell MD promethazine (PHENERGAN) tablet 12.5 mg, 12.5 mg, Oral, Q6H PRN OR ondansetron (ZOFRAN) injection 4 mg, 4 mg, Intravenous, Q6H PRN, Som Mitchell MD [Held by provider] enoxaparin (LOVENOX) injection 40 mg, 40 mg, Subcutaneous, Daily, Som Mitchell MD, 40 mg at 06/16/20 0739 perflutren lipid microspheres (DEFINITY) injection 1.65 mg, 1.5 mL, Intravenous, ONCE PRN, Som Mitchell MD sodium chloride flush 0.9 % injection 10 mL, 10 mL, Intravenous, PRN, Som Mitchell MD levETIRAcetam (KEPPRA) 1,000 mg in sodium chloride 0.9 % 100 mL IVPB, 1,000 mg, Intravenous, Q12H, Som Mitchell MD, Last Rate: 0 mL/hr at 06/17/20 0000, 1,000 mg at 06/17/20 1112 sodium chloride flush 0.9 % injection 10 mL, 10 mL, Intracatheter, Q12H, Amish Velazquez MD, 10 mL at 06/17/20 1112 heparin flush 100 UNIT/ML injection 250 Units, 250 Units, Intracatheter, Q12H, Amish Velazquez MD, 250 Units at 06/17/20 1112 sodium chloride flush 0.9 % injection 10 mL, 10 mL, Intracatheter, PRN, Amish Velazquez MD heparin flush 100 UNIT/ML injection 250 Units, 250 Units, Intracatheter, PRN, Amish Velazquez MD glucose (GLUTOSE) 40 % oral gel 15 g, 15 g, Oral, PRN, Amish Lawton, DO dextrose 50 % IV solution, 12.5 g, Intravenous, PRN, Amish Lawton, glucagon (rDNA) injection 1 mg, 1 mg, Intramuscular, PRN, Amish Lawton, DO dextrose 5 % solution, 100 mL/hr, Intravenous, PRN, Amish Lawton, DO Continuous Infusions: dextrose Allergies: Codeine ROS: Review of Systems Constitutional: Positive for fatigue. Negative for activity change, appetite change, chills, diaphoresis and fever. 40 lbs weight loss HENT: Negative for congestion, facial swelling, hearing loss, rhinorrhea, sinus pressure, sinus pain, sore throat and trouble swallowing. Eyes: Negative for visual disturbance. Respiratory: Negative for apnea, cough, choking, chest tightness, shortness of breath, wheezing andstridor. Cardiovascular: Negative for chest pain, palpitations and leg swelling. Gastrointestinal: Negative for abdominal distention, constipation, diarrhea, nausea and vomiting. Genitourinary: Negative for flank pain, frequency and urgency. Musculoskeletal: Positive for back pain and myalgias. Negative for joint swelling. R arm pain and weakness Skin: Negative for color change. Neurological: Positive for weakness, numbness. Negative for dizziness, tremors, seizures, syncope, facial asymmetry, speech difficulty and light-headedness, headaches Psychiatric/Behavioral: Negative for agitation and confusion. Objective: Telemetry: Arrhythmia:No Physical Examination: Patient Vitals for the past 8 hrs: BP Temp Temp src Pulse Resp SpO2 06/17/20 0814 (!) 164/98 98.6 F (37 C) Temporal 95 12 99 % 06/17/20 0500 124/69 97 F (36.1 C) Temporal 77 14 95 % I/O last 3 completed shifts: In: 1098 [P.O.:450; I.V.:648] Out: 1025 [Urine:1025] General Physical Examination: General:alert, no distress, cooperative, obese and smiling. Gait stable HEENT:Normocephalic, atraumatic CV: S1+S2, RRR, no MRG. Pulm:CTA b/l, unlabored Abdomen: Soft NT/ND. BS + Skin: Intact without ulcers, breakdowns or discoloration pale , peripheral neuropathic changes in feet and toes Extremities: normal with no edema or cyanosis , atrophy of distal muscles and particularly on the right am deltoid, triceps , biceps SS, Orthopedic limitation; yes due to pain for passive or active movement of his right arm and neck Pulses: Intact peripherally Carotid auscultation :No bruits Neurological Examination: Higher Functions: Mental Status Exam: Level of Alertness:Awake Orientation: Normal toself, time, place Memory: Normal Fund of Knowledge: Normal Language: Normal Dysarthria not present Cranial Nerves: -II Visual acuity: normal -II Visualfields: normal -III Pupils (~ 1-2 mm OD, 1-2 mm OU) equal, round, reactive to light -III-IV- Extraocular Movements: intact -Nystagmus not present -Saccades and pursuits normal -V Facial sensation: intact Corneal's Intact bilateral -VII Facial strength:intact -VIII Hearing: intact -IX-X - Gag reflex present -X Palate: intact -XI Shoulder shrug: intact -XII Tongue movement: normal Fundoscopic examination Was normal , red reflex and normal papilla Motor Examination: Tone after evaluation of 4 limbs, the following findings applied: Normal all limbs -Bulk: Decreased. Atrophy in UE, R>L. Atrophy in lower limbs bilaterally -Muscle Stretch after evaluation of all limbs, and axial musculature the following findings applied: Drift: absent R arm weakness. Only able to lift against gravity but not hold it. Limited range of motion of R arm. Pain with extention of neck and side bending to the right. -Reflexes: after evaluation of 4 limbs, the following findings applied ; RUE not assessed due to pain, LUE C5/6/7 1+; LE L4/S1 0 b/l -Plantar responce: Right side: could not be assessed due to pain. Sensory allodynia on right UE. Decreased sensation on limbs bilterally from ankles down, Coordination: Arms patient unable to perform test due to sedation, paralysis or limb orthopedic circumstances on rightarm. Normal coordination with left arm Legs Intact heel knee ji testing Tremors not present Gait normal NIHSS: N/A ANCILLARY Last 24hrs Recent Results (from the past 24 hour(s)) POCT Glucose Collection Time: 06/16/20 4:49 PM Result Value Ref Range POC Glucose 286 (H) 70 - 100 mg/dL POCT Glucose Collection Time: 06/16/20 9:30 PM Result Value Ref Range POC Glucose 253 (H) 70 - 100 mg/dL HIV Screen Collection Time: 06/17/20 12:24 AM Result Value Ref Range HIV 1+2 AB+[id number] AG, EIA NONREACTIVE Nonreactive NA CBC auto differential Collection Time: 06/17/20 12:24 AM Result Value Ref Range WBC 5.9 3.6 - 10.7 10*3/uL RBC 3.79 (L) 4.40 - 5.90 10*6/uL Hemoglobin 11.0 (L) 13.0 - 18.0 g/dL Hematocrit 32.3 (L) 40.0 - 52.0 % MCV 85.3 80.0 - 98.0 fL MCH 29.0 26.0 - 34.0 pg MCHC 34.0 32.0 - 36.0 % RDW 12.5 11.5 - 14.5 % Platelets 204 140 - 440 10*3/uL MPV 8.6 7.4 - 10.4 fL Granulocytes % 53.6 40.0 - 80.0 % Lymphocyte % 35.8 20.0 - 40.0 % Monocytes 6.6 2.0 - 10.0 % Eosinophils 3.7 1.0 - 6.0 % Basophils 0.3 0.0 - 2.0 % Absolute Neut # 3.2 1.8 - 7.0 10*3/uL Absolute Lymph # 2.1 1.0 - 4.3 10*3/uL Absolute Greene # 0.4 0.0 - 0.8 10*3/uL Absolute Eos # 0.2 0.0 - 0.5 10*3/uL Absolute Baso # 0.0 0.0 - 0.2 10*3/uL Magnesium Collection Time: 06/17/20 12:24 AM Result Value Ref Range Magnesium 1.8 1.6 - 2.3 mg/dL Phosphorus Collection Time: 06/17/20 12:24 AM Result Value Ref Range Phosphorus 2.6 2.5 - 4.5 mg/dL Basic Metabolic Panel Collection Time: 06/17/20 12:24 AM Result Value Ref Range Sodium 139 135 - 145 mmol/L Potassium 3.9 3.5 - 5.1 mmol/L Chloride 111 (H) 98 - 107 mmol/L CO2 24 22 - 30 mmol/L Anion Gap 5 NA Glucose 211 (H) 70 - 100 mg/dL BUN 14 7 - 20 mg/dL CREATININE 0.81 0.52 - 1.25 mg/dL eGFR >90.0 >60 mL/min EGFR IF NonAfrican [place] >90.0 >60 mL/min Calcium 8.2 (L) 8.4 - 10.4 mg/dL Vitamin B12 Collection Time: 06/17/20 12:24 AM Result Value Ref Range Vitamin B-12 816 239 - 931 pg/mL TSH without Reflex Collection Time: 06/17/20 12:24 AM Result Value Ref Range TSH 3.263 0.465 - 4.680 u[IU]/mL C-Reactive Protein Collection Time: 06/17/20 12:24 AM Result Value Ref Range CRP 18.0 (H) 0.0 - 6.0 mg/L CK Collection Time: 06/17/20 12:24 AM Result Value Ref Range Total CK 46 30 - 170 U/L Procalcitonin Collection Time: 06/17/20 12:24 AM Result Value Ref Range Procalcitonin <0.10 <0.10 ng/mL Interpretation See Below NA POCT Glucose Collection Time: 06/17/20 6:33 AM Result Value Ref Range POC Glucose 279 (H) 70 - 100 mg/dL Add On Lab Test Collection Time: 06/17/20 6:55 AM Result Value Ref Range Add On Accepted NA Add On Lab Test Collection Time: 06/17/20 7:25 AM Result Value Ref Range Add On Accepted NA SEDIMENTATION RATE Collection Time: 06/17/20 7:35 AM Result Value Ref Range Sed Rate 13 (H) 0 - 10 mm/h POCT Glucose Collection Time: 06/17/20 8:18 AM Result Value Ref Range POC Glucose 289 (H) 70 - 100 mg/dL Recent Labs 06/14/202112 PH 7.30* Cultures: Blood culture #1: Recent Labs 06/14/202141 BC No growth at 1 day. No growth at 2 days. Coagulation: Recent Labs 06/14/202112 INR 0.9 CSF: Pending LP procedure Stroke Specific: Lipids: Recent Labs 06/15/20 0315 CHOL 246* LDLCHOLESTEROL 155* TRIG 321* HDL 27* HgA1c: Recent Labs 06/14/202112 LABA1C >14.0* CT abdomen and pelvis: IMPRESSION: 1. No definite evidence of abdominopelvic neoplasm. 2. Bladder wall thickening, which could be due to decompression by a catheter but consider cystitis. Small amount of nonspecific free pelvic fluid. 3. Subcutaneous emphysema likely due to subcutaneous injections. 4. Atrophic pancreas with fatty replacement. Report Dictated on --- Final --- Dictated: 06/16/2020 3:29 pm Dictating Physician: MD RODRIGUEZ NICHOLAS Signed Date and Time: 06/16/2020 3:41 pm Signed by: MD RODRIGUEZ NICHOLAS Transcribed Date and Time: 06/16/2020 3:29 ASSESSMENT 1.- Acute provoked focal seizure,with jacksonian march, and secondary generalization without statusepilepticus -total 2 events with LOC for unknown amount of time 2. Solitary Right Frontal Lobe Mass- Ring enhanced lesion 3. CMT 4. Chronic Right brachial plexus injury (upper) PLAN/RECOMMENDATIONS: -Pending LP today and then results for the labs of the following (lovenox still held) -cell count and diff -Protein and glucose -toxo and VDRL in CSF - ME panel in CSF --> lab is unable to do this -TB culture and stain - Crypto antigen and fungal culture - TB culture - Acid base stain -Fungal culture and stain -Cytology -B12 and TSH within normal limits. -Follow up with neurosurgery in 2 weeks and ID in 1 week. -Continue [facility] Patient seen and discussed with Dr. Serrano Associated attestation - Shellie Serrano MD - 06/17/2020 5:32 PM EST Attending Note: Patient seen and examined at bedside with house staff. I performed a history and physical examination of the patient as well as have personally reviewed imaging documented in the note. Management dicussed with the resident during rounds. I reviewed the resident's note and agree with the History, physical examination, documented findings and plan of care with the following addendum: Patient awaiting for LP. Currently no specific indications for treatment as the nature of the finding is still to be defined Patient is very clear that he would not want any intervention and that if this is cancer he does not want to have it treated I am in peace with . However has agreed to LP< He will need follow up with ID for review of LP results in the next couple of weeks as well as repetition of MRI with and without contrast and follow up with Dr. Sadler as outpatient IN regards to his seizures, will continue with Dean, for now indefinitely as long as the provoking mechanism ( his right frontal lesion remains same ) Will set up appointment with Dr. Montero same day as he follows up with NS Personal discussion of test results and plan of care with: Patient treatments and testing options informed consent and plan of care, Admitting Team, ., ., . Personal review of: Imaging,Labs,Documented notes since admission or last time seen},Old Records},. * Donald Arellano MD - 06/17/2020 11:24 AM EST Hospitalist Progress Note 06/17/2020 11:24 AM Subjective: Admit Date: 06/14/2020 PCP: Amish Han MD Interval History: No overnight issues. DIET CARB CONTROL; Carb Control: 5 carb choices (75 gms)/meal I/O last 3 completed shifts: In: 1098 [P.O.:450; I.V.:648] Out: 1025 [Urine:1025] Date 06/17/20 0000 - 06/17/20 235 Shift 3915-9053 7412-4314 9058-7054 24 Hour Total INTAKE Shift Total(mL/kg) OUTPUT Urine(mL/kg/hr) 200(0.3) 200 Shift Total(mL/kg) 200(2.4) 200(2.4) Weight (kg) 84.7 84.7 84.7 84.7 Patient Vitals for the past 96 hrs (Last 3 readings): Weight 06/14/201944 186 lb 11.7 oz (84.7 kg) Medications: dextrose insulin lispro 0-18 Units Subcutaneous TID WC insulin lispro 0-9 Units Subcutaneous Nightly insulin glargine 10 Units Subcutaneous Nightly metoprolol tartrate 25 mg Oral BID famotidine 20 mg Oral BID atorvastatin 40 mg Oral Nightly sodium chloride flush 10 mL Intravenous 2 times per day [Held by provider] enoxaparin 40 mg Subcutaneous Daily levetiracetam 1,000 mg Intravenous Q12H sodium chloride flush 10 mL Intracatheter Q12H heparin flush 250 Units Intracatheter Q12H Recent Labs 06/15/2031406/16/20 0349 06/17/20 0024 WBC 7.2 5.3 5.9 HGB 11.6* 11.6* 11.0* PLT 197 198 204 Recent Labs 06/15/2031406/16/2034806/17/20 0024 NA 137 137 139 K 4.0 3.9 3.9 CL 112* 109* 111* CO2 22 24 24 BUN 22* 16 14 CREATININE 0.91 0.83 0.81 GLUCOSE 248* 236* 211* Recent Labs 06/14/202112 AST 22 ALT 15 BILITOT 0.4 ALKPHOS 61 Lab Results Component Value Date TRIG 321 06/15/2020 HDL 27 06/15/2020 CHOL 246 06/15/2020 No results found for: PHART, PO2ART, QAE7HIT Recent Labs 06/14/202112 INR 0.9 Recent Labs 06/17/20 0024 CKTOTAL 46 No results for input(s): DDIMER in the last 72 hours. No components found for: HGBA1C Lab Results Component Value Date TSH 3.263 06/17/2020 Urine Culture: No results found for this or any previous visit. Objective: Vitals: BP (!) 164/98 Pulse 95 Temp 98.6 F (37 C) (Temporal) Resp 12 Ht 5' 10 (1.778 m) Wt 186 lb 11.7 oz (84.7 kg) SpO2 99% BMI 26.79 kg/m Pulse Ox: SpO2 Av.4 % Min: 95 % Max: 99 % Supplemental O2: General appearance: alert and cooperative with exam Lungs: clear to auscultation bilaterally Heart: regular rate and rhythm, S1, S2 normal, no murmur, click, rub or gallop Abdomen: soft, non-tender; bowel sounds normal; no masses, no organomegaly Extremities: extremities normal, atraumatic, no cyanosis or edema Neurologic: No obvious focal neurologic deficits. Assessment Active Problems: Seizure (HCC) Resolved Problems: * No resolved hospital problems. * New onset seizures Frontal lobe mass, small ring enhancing lesion right posterior lobe Episodes of VT at outside facility -resolved DM2 with hyperglycemia HTN HLD DM (diabetes mellitus) (HCC) HTN (hypertension) Hyperlipidemia Peripheral neuropathy Plan: Pt was admitted to the ICU with seizure, found to have a brain mass, stabilized and transferred to the floor AAO X4 Plan for LP today. Follow serology Seen by neurosurgery. Lesion is not amenable to stereotactic needle Bx but pt refused surgery Neurology following. Cont keppra BID CT abd no evidence of mets. Oncology consulted ID following. Low concern for infectious etiology Follow closely. Donald Arellano MD Rounding Hospitalist * Steve Echevarria RN - 06/16/2020 5:39 PM EST Called report to the 6 nurse Lilly MARTINEZ. Since the pt is transfering there after the surgery * Steve Echevarria RN - 06/16/2020 3:44 PM EST Report called to Tania MARTINEZ on [address] * Valarie Enriquez PA-C - 06/16/2020 8:09 AM EST CRITICAL CARE DAILYPROGRESS NOTE Admit Date: 06/14/2020 PCP: Amish Han MD Subjective HPI: 60yoM w/ PMHx DM2, HTN, HLD, peripheral neuropathy, and episode of VT @[facility] admitted admitted 06/14/20 for new onset seizures. Initially presented to [facility] where MRI Brain was done which showed 0.9 x0.5 x0.3 cm ring-enhancing lesion in R posterior frontal lobe, suspicious of malignancy vs infectious or inflammatory lesion. Transferred to [facility], Neuro-cc and Neurosurgery consulted. EVENTS OF LAST 24HOURS: Sitting up in chair, awake and alert, appears comfortable. Feeling better today, ROBBINS resolved. C/o pain in his R arm and shoulder which is chronic. Denies CP, SOB, N/V, abdominal pain, vision/hearing changes. Asking about the plan for today. Hoping to go home soon. INVASIVE LINES: PIV Diet: DIET CARB CONTROL; IV: lactated ringers 75 mL/hr at 06/15/20 0201 dextrose MEDICATIONS Scheduled Meds: sodium chloride flush 10 mL Intravenous 2 times per day enoxaparin 40 mg Subcutaneous Daily levetiracetam 1,000 mg Intravenous Q12H metoprolol 5 mg Intravenous Q6H sodium chloride flush 10 mL Intracatheter Q12H heparin flush 250 Units Intracatheter Q12H insulin lispro 0-12 Units Subcutaneous TID WC insulin lispro 0-6 Units Subcutaneous Nightly famotidine (PEPCID) injection 20 mg Intravenous BID PRN meds: hydrALAZINE, sodium chloride flush, acetaminophen OR acetaminophen, polyethylene glycol, promethazine OR ondansetron, perflutren lipid microspheres, sodium chloride flush, sodium chloride flush, heparin flush, glucose, dextrose, glucagon (rDNA), dextrose Objective EXAM: VITALS: BP (!) 149/86 Pulse 80 Temp 96.1 F (35.6 C) (Temporal) Resp 14 Ht 5' 10 (1.778 m) Wt 186lb 11.7 oz (84.7 kg) SpO2 95% BMI 26.79 kg/m Temp (24hrs), Av.9 F (36.1 C), Min:96.1 F (35.6 C), Max:98 F (36.7 C) I/O: 06/15 0701 - 06/16 07 In: 2711 [P.O.:700; I.V.:2010] Out: 2210 [Urine:2210] CVP: Physical Exam Vitals signs reviewed. Constitutional: General: He is awake. He is not in acute distress. Appearance: He is not diaphoretic. HENT: Head: Normocephalic and atraumatic. Mouth/Throat: Mouth: Mucous membranes are moist. Pharynx: Oropharynx is clear. No oropharyngeal exudate or posterior oropharyngeal erythema. Eyes: General: No scleral icterus. Right eye: No discharge. Left eye: No discharge. Extraocular Movements: Extraocular movements intact. Conjunctiva/sclera: Conjunctivae normal. Pupils: Pupils are equal, round, and reactive to light. Neck: Musculoskeletal: Neck supple. Trachea: No tracheal deviation. Cardiovascular: Rate and Rhythm: Normal rate and regular rhythm. Pulses: Normal pulses. Heart sounds: Normal heart sounds. No murmur. No friction rub. No gallop. Pulmonary: Effort: Pulmonary effort is normal. No tachypnea, accessory muscle usage or respiratory distress. Breath sounds: No stridor. No wheezing, rhonchi or rales. Abdominal: General: Bowel sounds are normal. There is no distension. Palpations: Abdomen is soft. There is no mass. Tenderness: There is no abdominal tenderness. There is no guarding. Musculoskeletal: General: No deformity. Right lower leg: No edema. Left lower leg: No edema. Skin: General: Skin is warm and dry. Capillary Refill: Capillary refill takes less than 2 seconds. Findings: No erythema or rash. Nails: There is no clubbing. Neurological: Mental Status: He is alert. GCS: GCS eye subscore is 4. GCS verbal subscore is 5. GCS motor subscore is 6. Comments: MAEx4, CN II-XII grossly intact Psychiatric: Behavior: Behavior is cooperative. LABS: BMP: Recent Labs 06/14/20211206/15/2031406/16/209 NA 137 137 137 K 4.3 4.0 3.9 CL 109* 112* 109* CO2 21* 22 24 BUN 25* 22* 16 CREATININE 1.10 0.91 0.83 GLUCOSE 302* 248* 236* . CBC: Recent Labs 06/15/2031406/16/20 0349 WBC 7.2 5.3 HGB 11.6* 11.6* PLT 197 198 Ionized Calcium: Lab Results Component Value Date IONCA 4.40 06/14/2020 Hepatic: Recent Labs 06/14/202112 AST 22 ALT 15 BILITOT 0.4 ALKPHOS 61 Lactate: Lab Results Component Value Date LACTA 1.0 06/14/2020 INR: Recent Labs 06/14/202112 INR 0.9 PT/INR: Recent Labs 06/14/202112 PROTIME 9.8 INR 0.9 APTT: Recent Labs 06/14/202112 APTT 24.4 TSH: Recent Labs 06/14/202112 TSH 1.027 PROCALCITONIN: Recent Labs 06/14/202112 PROCAL <0.10 LIPIDS: Recent Labs 06/15/20 0315 CHOL 246* HDL 27* UA: Recent Labs 06/14/202122 APPEARANCE Clear COLORU Colorless LABSPEC 1.025 LABPH 5.5 NITRU Negative LEUKOCYTESUR Negative GLUCOSEU >1,000* KETUA Negative OCBU Negative Cultures: No results for input(s): LABURIN in the last 72 hours. No results for input(s): BC in the last 72 hours. No results for input(s): BLOODCULT2 in the last 72 hours. No results for input(s): CULTRESP in the last 72 hours. No results for input(s): CXCATHTIP in the last 72 hours. No results for input(s): LEGUR in the last 72 hours. Invalid input(s): STREPPNEUMAGU No results for input(s): LABGRAM in the last 72 hours. RADIOLOGY: CXR Portable: Results for orders placed during the hospital encounter of 06/14/20 XR CHEST PORTABLE Narrative Patient Name: GERBER RICO ---Diagnostic Radiology--- Exam Date/Time 06/14/2020 21:33:46 EST Exam CR Chest Portable Ordering Physician LISBETH GOMEZ MD, CHARLES V Accession Number [id number] CPT4 Codes 04194 () Reason For Exam left arm picc Report SINGLE FRONTAL VIEW OF THE CHEST CLINICAL INDICATION: left arm picc TECHNIQUE: Single frontal view of the chest COMPARISON: None FINDINGS: Left PICC catheter tip is in the SVC. Left basilar atelectasis. Lungs otherwise clear. No vascular congestion, pleural effusion, or pneumothorax. IMPRESSION: 1. Left basilar atelectasis. Report Dictated on --- Final --- Dictated: 06/14/2020 9:51 pm Dictating Physician: MD BARRON JOHN R Signed Date and Time: 06/14/2020 9:55 pm Signed by: MD BARRON JOHN R Transcribed Date and Time: 06/14/2020 9:51 Assessment & Plan: 1. New onset seizures: - Acute provoked focal seizure, w/ jacksonian october and secondary generalization - Neuro-cc following - EEG pending - No further seizure activity since admit - Continue keppra, fall/seizure precautions, monitor neuro checks per protocol 2. Frontal lobe mass (?infectious vs malignancy): - MRI w/ 0.9 x0.5 x0.3 cm ring-enhancing lesion in R posterior frontal lobe - Neuro-cc, Neurosurgery, ID, and Heme-onc all following - Checking staging CT chest/abdomen/pelvis, HIV screen, toxoplasmosis screen, TB screen - Planning for LP in AM - Currently refusing surgery if malignant 3. Episodes of VT: - Occurred at OSH, none since admission - 06/14 EKG w/ NSR (HR 81), LAD, QTc 466 - 06/15 Echo w/ EF 59%, no RWMA, no significant valve disease - Start PO metoprolol, switch IV metoprolol to PRN - Continue to monitor on tele 4. HTN: - Not on any home hypertensives - Currently on IV metoprolol 5mg q6h, BPs uncontrolled - Start PO metoprolol 25mg BID, switch IV BB to PRN, add PRN IV labetalol and hydralzine - Goal SBP<150 5. DM2 uncontrolled: - No home meds listed - Hgb A1C >14 on 06/14/20 - Currently uncontrolled (BG 200s) on medium dose SSI - Start lantus 10u QHS, increase SSI to high dose TID AC&HS - Continue to monitor BGTs w/ goal <180 6. HDL: - Start statin 7. Code status: - Currently full code 8. FEN: - Carb control diet - Monitor daily lytes and replace PRN Prophylaxis: Stress ulcer: [] PPI Agent [x] H2RA [] Sucralfate [] Other: VTE: [x] Enoxaparin [] SC Heparin [x] SCD Dispo: Awaiting transfer to Critical care time spent reviewing labs/films, examining patient, collaboratingwith other physicians but excluding procedures for life threatening organ failure is 45 minutes. Plan of care discussed with and reviewed by Dr. Gunn. Associated attestation - Miguel Gunn MD - 06/17/2020 5:27 PM EST Patient seen and examined independently by me. Above discussed and I agree with TOMMY note except where indicated in the EMR revision history. Also see my additional comments and changes indicated by discrete font, text color, italics, and/or initials. Labs, cultures, and radiographs where availablewere reviewed. Changes were made in the orders as necessary. I discussed patient concerns with Michaela Jones and instructions were given. Respiratory care issues addressed. Please see our orders forthe updated patient care plan. See my associated note this date * Mirella Vang MD - 06/15/2020 3:38 PM EST ICU TRANSFER CHECKLIST Transfer Med Reconciliation (resume home meds if able, convert to PO if able) Complete Antibiotics (name, indication, duration, convert to PO if able) None Steroid (indication, duration, convert to PO if able) None Anticipated Cleves Medications (ICU initiated) or Dose Changes and Indication No Permanently Discontinued Home Medications and Reason for medication contraindication No Bland Catheter (please remove if able) No Central Line (please remove if able) No Transfer Discussed with: Dr. Natalya Arellano If additional questions for ICU team within 24 hours of ICU transfer, page [phone] for clarifications. * Carley Hinkle RD, MYRON - 06/15/2020 10:27 AM EST Comprehensive Nutrition Assessment Type and Reason for Visit: Initial(ICU screen) Nutrition Recommendations/Plan: 1. Recommend continue on diet as currently ordered, patient is currently ordered a CHO Controlled Diet which is appropriate given DM history, upon review of pt lipid panel and PMH would recommend theaddition of Cardiac Diet restrictions. 2. Will continue to monitor PO intake for adequacy 3. Per MNT protocol will provide Ensure HP TID with meals, chocolate per pt preference, 8fl oz provides 160 caloies, 16gm protein. 4. Pt denies need for DM education despite noted HgbA1c of >14% today. 5. Will continue to monitor weight changes, labs and overall nutrition status 6. RD will continue to follow up weekly Nutrition Assessment: pt with PMH significant for DM2, HTN, HLD, Episodes of VT at outside hospital, Peripheral Neuropathy that presented to [facility] on 06/14/2020 from outside facility ([facility]) after admission for new onset seizures workup was significant for a frontal lobe mass, reports that about oneweek ago he started to notice his hand twitching, I would consistently double tap my phone withoutmeaning to , pt states a couple days [employer] he woke up in the morning reached to grab his phone and his hand began to shake uncontrollably, at outside hospital a MRI Brain w/ and w/o contrast showed 0.9x0.5 x0.3 cm ring-enhancing lesion in the right posterior frontal lobe, suspicious of malignancy vs infectious or inflammatory lesion, pt was transferred to [facility] for further evaluation and management of a newly diagnosed brain leison, currently pt sitting up in bed, breakfast tray had recently arrived, RD assisted pt in getting set up, he states that his appetite is good, he denies food alleriges a nd denies chewing/swallowing issues when asked pt about CBW he states that he is 160# although bedscale indicates 186#, pt states that 6 months ago he was 220# and he has been losing weight since he was taken off of insulin 6 months ago, p denies need for education on CHO Controlled diet at this time despite HgbA1c >14%, pt states that [employer] he has been using Ensure ONS and is wondering if he can have ordered here with meals, will initiate and continue to monitor in patient care Malnutrition Assessment: Malnutrition Status: At risk for malnutrition (Comment)(pt claims that he has lost weight from 220#to stated CBW 160# over 6 months, will monitor, pt endorses good appetite and use of ONS [employer]) Estimated Daily Nutrient Needs: Energy (kcal): 1888-2265kcals/day; Weight Used for Energy Requirements: [place] Protein (g): 76-91gm pro/day; Weight Used for Protein Requirements: [place] Fluid (ml/day): per MD Recommendations; Method Used for Fluid Requirements: 1 ml/kcal Nutrition Related Findings: Ignacio = 21, skin intact, upper dentures, -I/O, active bowel sounds, generalized trace edema Wounds: None Current Nutrition Therapies: DIET CARB CONTROL; Anthropometric Measures: Height: 5' 10 (177.8 cm) Current Body Weight: 186 lb 11.7 oz (84.7 kg)(06/14, although pt sates that he is actually 160#) Admission Body Weight: 186 lb (84.4 kg)(bedscale 06/14) Usual Body Weight: 220 lb (99.8 kg)(6 months ago per pt report, no history in EPIC to confirm) [place] Body Weight: 166 lbs; % [place] Body Weight 112.5 % BMI: 26.8 Adjusted Body Weight: ; No Adjustment BMI Categories: Overweight (BMI 25.0-29.9) Nutrition Diagnosis: Unintended weight loss related to (pt sates due to going off of insulin) as evidenced by (pt claimsweight loss from 220# 6 months ago to 160#) Altered nutrition-related lab values related to endocrine dysfuntion, cardiac dysfunction as evidenced by lab values Nutrition Interventions: Food and/or Nutrient Delivery: Modify Current Diet, Start Oral Nutrition Supplement Nutrition Education/Counseling: Education declined Coordination of Nutrition Care: Continue to monitor while inpatient Goals: PO intake will be >50% at alaina/supplements Nutrition Monitoring and Evaluation: Behavioral-Environmental Outcomes: None Identified Food/Nutrient Intake Outcomes: Food and Nutrient Intake, Supplement Intake Physical Signs/Symptoms Outcomes: Biochemical Data, GI Status, Fluid Status or Edema, Weight, Skin,Nutrition Focused Physical Findings Discharge Planning: Too soon to determine Contact: pager x [phone] * Mirella Vang MD - 06/15/2020 7:31 AM EST Critical Care Progress Note 06/15/2020 7:31 AM Subjective: Admit Date: 06/14/2020 PCP: Amish Han MD Seizure Interval History: no events overnight. Requesting diet. Medications: Scheduled Meds: sodium chloride flush 10 mL Intravenous 2 times per day enoxaparin 40 mg Subcutaneous Daily levetiracetam 1,000 mg Intravenous Q12H metoprolol 5 mg Intravenous Q6H sodium chloride flush 10 mL Intracatheter Q12H heparin flush 250 Units Intracatheter Q12H insulin lispro 0-12 Units Subcutaneous TID WC insulin lispro 0-6 Units Subcutaneous Nightly famotidine (PEPCID) injection 20 mg Intravenous BID Continuous Infusions: lactated ringers 75 mL/hr at 06/15/20 0201 dextrose Objective: Vitals: Temp (24hrs), Av.9 F (36.6 C), Min:97.4 F (36.3 C), Max:98.2 F (36.8 C) BP 129/83 Pulse 79 Temp 98.1 F (36.7 C) (Temporal) Resp 14 Ht 5' 10 (1.778 m) Wt 186 lb 11.7 oz (84.7 kg) SpO2 94% BMI 26.79 kg/m I/O:24HR INTAKE/OUTPUT: Intake/Output Summary (Last 24 hours) at 06/15/2020 0731 Last data filed at 06/15/2020 0600 Gross per 24 hour Intake 842 ml Output 825 ml Net 17 ml 06/14 0701 - 06/15 0700 In: 842 [I.V.:842] Out: 825 [Urine:825] CVP: Invasive Lines: Ventilator Settings: Physical Exam General Appearance: [x]WDWN []Obese []Cachectic []Thin []ill Skin: Temperature [x]Warm []Cool / Rash []Yes [x]No / Tattoo(s) []Yes []No Heent: Pupils round and react [x]Yes []No Sclera []Icteric [x]Non-Icteric Conjunctiva []Injected [x]Non-Injected / Pinnae [x]Normal []Other/ Dentitian []Tribal Teeth []No Tribal Teeth []Dentures Oral Mucosa [x][place] [x]Moist []Dry/ Oral ETT []Present [x]Absent Neck: Trachea midline [x]Yes []No/ Thyromegaly []Yes []No/ Crepitus []Present [x]Absent /Jvd []Present []Absent / []supple Lungs: [x]Clear []Crackles []Wheezes []Rhonchi / Respiratory effort []Labored [x]Non-Labored Heart: [x]RRR []Irregularly Irregular []murmur present []murmur absent/ Peripheral Edema [x]Absent []Present Abdomen: [x]Soft Bowel Sounds []Present []Absent [x]Diminished []Hyperactive []Hypoactive []Tender [x]Non-Tender []Distended [x]Non-distended / Hernia []Present []Absent []Unable to assess due to body habitus/ Organomegaly [x]Absent []Present []Unable to assess due to body habitus/ []Scar Extremities: Cyanosis []Present []Absent/ FITCH ([x]RUE [x]RLE [x]LUE [x]LLE) Neurologic: [place] []Yes []No Corneal reflexes []Present []Absent / Plantar reflexes []Up []Down []Absent / Withdraws to tactile []Yes []No/ Follows Commands [x]Yes []No []Unresponsive to verbal CN 2-12 grossly intact. ROM, strength, and SILT diminished on RUE d/t prior unrepaired shoulder injury. 5/5 strength and SILT normal in LUE, LLE, and RLE. No drift. No facial droop Psych: Alert [x]yes []no Oriented []x0 []x1 []x2 [x]x3 / Affect [x]Normal []Flat []Aggitated []Calm []Sedated [x]NAD []anxious Denies personality changes, mood fluctuations, and memory issues. BMP: Recent Labs 06/14/20211206/15/20 0315 NA 137 137 K 4.3 4.0 CL 109* 112* CO2 21* 22 BUN 25* 22* CREATININE 1.10 0.91 GLUCOSE 302* 248* CALCIUM 8.0* 7.6* IONCA 4.40 -- MG 2.0 2.0 PHOS 2.8 2.3* Ionized Calcium: Lab Results Component Value Date IONCA 4.40 06/14/2020 CBC: Recent Labs 06/14/20211206/15/205 WBC 7.3 7.2 HGB 13.1 11.6* PLT 212 197 Assessment and Plan: Gerber Rico is a 60 year old male with PMH of DM2, HTN, HLD, and episode of VT at [facility] who presented with new onset seizure. MRI Brain w/ and w/o contrast showed 0.9 x0.5 x0.3 cm ring-enhancing lesion in the right posterior frontal lobe, suspicious of malignancy vs infectious or inflammatorylesion. New onset seizure Frontal lob mass Episodes of VT DM2 HTN HLD Continue Keppra Seizure precautions EEG Metoprolol scheduled Neurology and neurosurgery consulted. Echo pending Med dose SSI Okay to transfer to floor per ICU and neurology. Discussed with Dr. Natalya Arellano. Prophylaxis: Stress ulcer: [] PPI Agent [x] H2RA [] Sucralfate [] Other: VTE: [x] Enoxaparin [] SC Heparin [x] SCD Full Code Patient seen hours Excluding procedures, the total critical care time caring for this patient with life threatening, unstable organ failure, including direct patient contact, review of medical record, management of life support systems, review of data including imaging and labs, discussions with other team members, patient's family and physicians at least 33 minutes so far today. documented in this encounter Assessments Diagnosis Seizure (HCC) Other convulsions Brain lesion Other conditions of brain Additional Source Comments (unrecognized sect ion and content) No Status Records Found INFORMATION SOURCE (unrecogn ized section and content) Reason for Visit (unrecogniz ed section and content) FOR RECORDS PERTAINING TO PATIENTS WHO ARE OR HAVE BEEN ENROLLED IN A CHEMICAL DEPENDENCY/SUBSTANCEABUSE PROGRAM, SOME INFORMATION MAY BE OMITTED. This clinical summary was aggregated from multiple sources. Caution should be exercised in using it in the provision of clinical care. This summary normalizes information from multiple sources, and as a consequence, information in this document may materially change the coding, format and clinical context of patient data. In addition, data may be omitted in some cases. CLINICAL DECISIONS SHOULD BE BASED ON THE PRIMARY CLINICAL RECORDS. [facility]. provides no warranty or guarantee of the accuracy or completeness of information in this document.
[2023-07-31 18:17] LABS: ALB/GLOB Ratio 0.8 RATIO (0.9-2.4); AST(SGOT) 22 U/L (15-37); Alanine Aminotransfer ALT/SGPT 16 U/L (16-61); Albumin, Serum 3.3 g/dL (3.2-5.0); Alkaline Phosphatase 71 U/L (45-117); Anion Gap 8 (5-15); BUN 58 mg/dL (7-18); BUN/Creat Ratio 7.4 RATIO (10-20); Calcium,Total 7.8 mg/dL (8.5-10.1); Chloride 101 mmol/L (98-107); Creatinine, Serum 7.86 mg/dL (0.70-1.30); EST Glomerular Filtration Rate 7 mL/min (>60); Est Glom Filt Rate - Afr Amer 9 mL/min (>60); Estimated Creatinine Clearance 9.93 ml/min; Globulin 4.2 g/dL (2.2-4.2); Glucose 164 mg/dL (74-106); Potassium 4.2 mmol/L (3.5-5.1); Protein, Total 7.5 g/dL (6.4-8.2); Sodium Level 137 mmol/L (136-145); Troponin-I HS 14 pg/mL (3.0-78.0)
--- NOTE | 2023-07-31 20:23 | NURSING ---
IV flushed. #24 blew. IV dc'ed. Pt states he is a very hard IV start and that normally he needs a PICC line. notified.
[2023-07-31] MEDS: Metoclopramide 5 MG TABLET PO (20:35)
[2023-07-31] MEDS: Acetaminophen 325 MG Tablet 650 MG PO (20:35)
--- NOTE | 2023-07-31 20:45 | CT_ITS ---
STUDY: CT BRAIN WITHOUT CONTRAST REASON FOR EXAM: Male, 63 years old. right leg weakness Individualized dose optimization techniques were used for this CT. TECHNIQUE: Transaxial CT imaging of the brain was performed without administration of intravenous contrast material. COMPARISON: 03-17-22 FINDINGS: There are calcifications around the carotid artery. These are noted in the cavernous carotid arteries. Normal calvarium. Normal soft tissues. There is mild cerebral atrophy with widening of the extra-axial spaces and ventricular dilatation. There are areas of decreased attenuation within the white matter tracts of the supratentorial brain, consistent with microvascular disease changes. Normal basal ganglia and thalami. Normal brainstem. There is mild cerebellar atrophy. There is no intracranial hemorrhage. There are no findings of an acute ischemic infarction. Degenerative changes of the mandibular condyles. ASPECTS Score for Acute Strokes: 05/17 CT/Brain/Head without Contrast IMPRESSION: There are no acute findings. Electronically Signed: José Luis Padilla MD at 21:04 EST ,
--- NOTE | 2023-07-31 21:22 | PCM.HP.STD ---
[facility] - General General Date of Admission: 07/31/23 Date of Service: 07/31/23 Chief Complaint: Right lower extremity weakness HPI Narrative JAMES WOODWARD, is a 63 M with a past medical history of essential hypertension, hyperlipidemia, obesity; with BMI of 30.7 this admission, diabetes mellitus type 2; of unknown control, history of smokeless tobacco abuse, end-stage renal disease on hemodialysis; (M-W-F), chronic atrial fibrillation; on Eliquis, history of CHF, history of syncope, history of CVA: with residual left hemiparesis, history of seizure disorder; on divalproex, RLS, history of migraine headaches, polyneuropathy and osteoarthritis; with chronic back pain causing patient to ambulate with a cane who presents to [facility] ER complaining of right lower extremity weakness. Mr. Woodward reports his symptoms began approximately 1 week prior to admission with generalized weakness but worse in the right lower extremity. He states he is now too weak to get up but he denies any trauma or falls as he was unable to get out of his car and now he cannot drive unless his right leg is back to normal. He still makes urine but denies dysuria or other urologic complaint but this made him nervous because he still has LLE weakness fromhis CVA and when his right leg is not working right he feels like he is virtually paralyzed. He also denies fever, chills, nausea, vomiting, chest pain or shortness of breath and he states he thinks he may have pinched a nerve because now his Right leg is feeling much better. In the ER he was diagnosed with possible subacute CVA with right lower extremity weakness in the setting of chronic generalized weakness and known ambulatory dysfunction and he was then admitted to the CDU under observation status for ongoing care for stay that is expected to be less than 48 hours. [facility]LY [facility], [facility] Medical History Acute and chronic respiratory failure with hypoxia Ambulates with cane Arthritis Back pain Cardiology follow-up encounter CHF (congestive heart failure) Chronic kidney disease, stage 4 (severe) Dietary restriction End stage renal disease Former smoker Heartburn High cholesterol History of atrial fibrillation History of echocardiogram History of pain when walking History of renal dialysis History of renal disease History of stress test HTN (hypertension) Injury of head and neck Insulin dependent diabetes mellitus Migraine headache Peripheral neuropathy Restless legs Seizures Stroke Syncope TIA (transient ischemic attack) Wears glasses Wears partial dentures Home Medications apixaban 5 mg tablet (Eliquis) 5 mg PO BID #60 tabs 03/24/22 [Rx Last Taken 09/16/22] atorvastatin 10 mg tablet 20 mg PO QHS 05/20/22 [History Last Taken Unknown] albuterol sulfate 90 mcg/actuation aerosol inhaler (Ventolin HFA) 2 puff inhalation Q6H PRN Wheezing 08/24/22 [History Last Taken Unknown] metoprolol tartrate 25 mg tablet 25 mg PO BID 08/24/22 [History Last Taken Unknown] amlodipine 10 mg tablet 10 mg PO DAILY #30 tabs 09/15/22 [Rx Last Taken 09/17/22] Manual wheelchair #1 ea 03/24/23 [Rx Last Taken Unknown] gabapentin 100 mg capsule 100 mg PO TID #90 caps 04/20/23 [Rx Last Taken Unknown] brimonidine 0.2 % eye drops 1 drp ophthalmic (eye) BID 05/11/23 [History Last Taken Unknown] divalproex 500 mg tablet,delayed release (Depakote) 1,000 mg PO BID 07/31/23 [History Last Taken Unknown] Allergy/AdvReac Type Severity Reaction Status Date / Time lisinopril AdvReac Severe Other Verified 07/31/23 16:32 oxycodone AdvReac Severe Other Verified 07/31/23 16:32 hydrocodone bitartrate AdvReac Mild HYPER Verified 07/31/23 16:32 [From Vicodin] Family History Father Cancer Prostate Heart disease Mother Heart disease Diabetes Other COPD (chronic obstructive pulmonary disease) Surgical History History of rotator cuff surgery History of umbilical hernia repair Hx of arteriovenostomy for renal dialysis Hx of left cataract extraction Hx of right cataract extraction S/P arteriovenous (AV) fistula creation Status post foot surgery Social History household members: spouse and children number of children: 3 current occupational status: disabled Smoking Status: Never smoker Smokeless tobacco user: snuff second hand exposure: No alcohol intake: never substance use type: does not use what type of physical activity do you participate in: other details: health point frequency: 3-4 times per week alba/tenriism: Other seatbelt use: always ROS ROS Narrative Review of systems: General: Patient denies fevers or chills. HENT: Denies headache, denies stuffy nose, denies sore throat EYES: Denies changes in vision Resp: Denies cough, denies shortness of breath Cardiac: Denies chest pain GI: Denies abdominal pain, denies changes in bowel, had some nausea : Denies changes in urination Extremity: Denies swelling Musculoskeletal: Feels somewhat generally weak and unwell with most pronounced weakness in his right leg. Neuro: Denies any numbness/tingling Heme: Denies any bleeding or bruising Skin: Denies rashes Psychiatric: No complaints voiced Endocrine: No polyuria, polydipsia or polyphagia. The rest of the 14 point ROS was negative except for positives in HPI. Vital Signs Vital Signs Vital Signs: 07/31/23 16:25 07/31/23 16:28 07/31/23 16:29 Temperature 96.6 F L 96.6 F L Temperature Source Temporal Temporal Pulse Rate 92 105 H Respiratory Rate 15 14 Respiratory Effort Normal Non-Labored Respiratory Pattern Normal Blood Pressure 128/78 H 128/78 H Blood Pressure Mean 94 94 Pulse Ox 97 97 Oxygen Delivery Method Room Air Room Air 07/31/23 17:53 07/31/23 19:16 07/31/23 20:00 Temperature 97.5 F L 97.4 F L 98 F Temperature Source Temporal Temporal Temporal Pulse Rate 86 82 77 Respiratory Rate 17 18 18 Respiratory Effort Respiratory Pattern Blood Pressure 132/92 H 173/93 H 171/96 H Blood Pressure Mean 105 119 121 Pulse Ox 95 95 93 Oxygen Delivery Method Room Air Room Air Room Air 07/31/23 21:00 Temperature 98.1 F Temperature Source Temporal Pulse Rate 76 Respiratory Rate 16 Respiratory Effort Respiratory Pattern Blood Pressure 153/88 H Blood Pressure Mean 109 Pulse Ox 94 Oxygen Delivery Method Room Air Weight Weight: 214 lb 4.629 oz Body Mass Index (BMI) 30.7 Physical Exam Const alert, oriented x3 and no apparent distress Constitutional Narrative: Patient is obese and appears chronically ill. General Appearance: cooperative HEENT normocephalic, head/scalp atraumatic, hearing grossly normal bilaterally and moist oral mucous membranes Eyes PERRL and EOMs intact bilaterally Neck no lymphadenopathy and supple Resp normal respiratory effort, no retractions, no use of accessory muscles and clear to auscultation bilaterally Cardio regular rate and regular rhythm GI normal to inspection, nondistended, normoactive bowel sounds, soft to palpation, non-tender and non-distended Extremity normal to inspection and full ROM Neuro oriented x3, CN's II-XII intact bilaterally, moves all extremities and no focal motor deficits Neuro Narrative: Patient has 3 out of 5 strength in his right lower extremity and he has 5 out of 5 strength in all other extremities. Sensorium / Orientation: awake, alert, oriented to person, oriented to place and oriented to time Speech: speech normal Psych affect normal Results Medical Records Data Attestation: I reviewed the patient's medical records Lab / Micro Data Attestation: I reviewed the patient's lab results. 07/31/23 17:40 07/31/23 17:40 Labs: Laboratory Results - last 24 hr 07/31/23 17:40: WBC 6.4, RBC 3.86 L, Hgb 11.7 L, Hct 36.3 L, MCV 94.0, MCH 30.3, MCHC 32.2, RDW Std Deviation 48.9 H, RDW Coeff of Silvia 14.2, Plt Count 258, MPV 10.9, Immature Gran % (Auto) 0.300, Neut % (Auto) 74.2 H, Lymph % (Auto) 12.6 L, Reeves % (Auto) 7.8, Eos % (Auto) 4.2, Baso % (Auto) 0.9, Absolute Neuts (auto) 4.8, Absolute Lymphs (auto) 0.81 L, Nucleated RBC % 0, Sodium 137, Potassium 4.2, Chloride 101, Carbon Dioxide 28.0, Anion Gap 8, BUN 58 H, Creatinine 7.86 H*, Estim Creat Clear Calc 9.93, Est GFR (MDRD) Af Amer 9 L, Est GFR (MDRD) Non-Af 7 L, BUN/Creatinine Ratio 7.4 L, Glucose 164 H, Calcium 7.8 L, Total Bilirubin 0.50, AST 22, ALT 16, Alkaline Phosphatase 71, Troponin I High Sens 14, Total Protein 7.5, Albumin 3.3, Globulin 4.2, Albumin/Globulin Ratio 0.8 L Micro: Microbiology 07/31/23 16:58 Nasal Secretion SARS-CoV-2 & FLU Antigen (Rapid) - Final Imagaing Radiology Impression Chest X-Ray 07/31/23 17:25 IMPRESSION: No acute findings in the chest. Electronically Signed: José Luis Padilla MD at 17:37 EST , Brain CT 07/31/23 20:45 IMPRESSION: There are no acute findings. Electronically Signed: José Luis Padilla MD at 21:04 EST , Assessment & Plan Assessment/Plan (1) Right leg weakness: (2) History of right MCA stroke: (3) Epilepsy: QUALIFIERS: Epilepsy type: unspecified Intractability: not intractable Status epilepticus: without status epilepticus Qualified Code(s): G40.909 - Epilepsy, unspecified, not intractable, without status epilepticus (4) Polyneuropathy: PLAN: Plan 1. Possible subacute CVA with 3 out of 5 strength in the right lower extremity allegedly for the past week - Admit to general medical floor under observation status. Check MRI of the brain to evaluate for possible subacute CVA. Check carotid Dopplers to evaluate for stenosis. Check echocardiogram to evaluate left ventricular ejection fraction. Continue aspirin and statin at this time but hold scheduled antihypertensives to allow for 'permissive hypertension' until CVA is definitively ruled out on MRI imaging. PT/OT and Case Management to consult and treat on rounds in the AM with help appreciated in advance. Finally, we will consult [facility] teleneurology for further recommendations with help appreciated in advance. 2. History of CVA: with residual left hemiparesis and polyneuropathy complicating #1 - Noted. Continue supportive care. 3. Osteoarthritis; with chronic back pain causing patient to ambulate with a cane compounding #1 & #2 - Noted. 4. Essential hypertension - Hold scheduled antihypertensives to allow for 'permissive hypertension' until CVA definitively ruled out. 5. End-stage renal disease on hemodialysis; () - Continue supportive care and consult nephrology in the unlikely event the patient is still here on Tuesday. 6. Hyperlipidemia - Resume statin and check Lipid Profile in light of #1. 7. Obesity; with BMI of 30.7 this admission- Weight loss will be recommended. 8. Diabetes mellitus type 2; of unknown control - ADA/renal diet. FSBS q. AC/HS plus SSI. Check [id number] to objectively assess quality of diabetic control. 9. History of smokeless tobacco abuse - Noted. Smokeless tobacco use will be strongly discouraged. 10. Chronic atrial fibrillation; on Eliquis - Resume Eliquis as previous. 11. History of CHF - Stable with no current evidence of volume overload. 12. History of syncope - Noted. 13. History of seizure disorder; on divalproex - Check valproic acid level and then restart agent if levels are in the targeted range. Give IV Ativan prn for breakthrough seizure activity. 14. RLS - Noted. Consider initiating treatment with Requip if needed. 15. History of migraine headaches - Stable with no headache at this time. 16. DVT prophylaxis - Patient already on Eliquis for #10 which will be contioued. Total time: Approximately 45 minutes. Charges/Coding Visit Charges OBSV E&M: 69946 Observ/hosp same date L1
--- OUTSIDE RECORDS SUMMARY | 2023-07-31 22:02 | XMS RPT_ITS | CCD ---
Author Name Unknown Address [address] [place] [address] Organization [facility] Care Team Providers Care Senior Interactive Producer Name Role Phone Sherry Delaneyelodia Adams Unavailable Kelle Delaney Unavailable Amish Han Primary Care Provider Kelle Delaney Unavailable Allergies Allergy Classification Reported Allergen(s) Allergy Type Date of Onset Reaction(s) Facility (1 source) Codeine Drug Allergy 06-14-2020 Anxiety, Other (See Comments) [facility], [place] Medications Current Medications Medication Drug Class(es) Dates [...] every 12 hours as needed OXYCODONE-ACETAMINO PHEN [id number] Ana Odonnell Problems Active Problems Problem Classification [...] 08:35-0500 Body Temperature 97.81 [degF] Leonardo Lozano [place], [place] 06-18-2020 08:35-0500 Pulse (Heart Rate) 95 /min [place] 06-18-2020 08:35-0500 Pulse Oximetry 99 % [place] 06-18-2020 08:35-0500 Respiratory Rate 18 /min [place], [place] 06-18-2020 03:58-0500 BP Diastolic 85 mm[Hg] Leonardo Lozano [place], [place] 06-18-2020 03:58-0500 BP Systolic 128 mm[Hg] [place] 06-15-2020 09:37-0500 Height 177.8 cm [place] 06-14-2020 19:45-0500 BMI (Body Mass Index) 26.79 kg/m2 Leonardo Lozano [facility] DANNIELLE 06-14-2020 19:45-0500 Body weight 84.7 kg [facility] D[place]ELLE 05-17-2014 09:40-0400 BMI (Body Mass Index) 30.82 kg/m2 [facility] Work Phone: 05-17-2014 09:40-0400 Body weight 100.25 kg [facility] Work Phone: 05-17-2014 09:40-0400 Weight 100.25 kg [facility] Work Phone: 10-02-2013 14:49-0500 BP Diastolic 79 mm[Hg] [facility] Work Phone: 10-02-2013 14:49-0500 BP Systolic 114 mm[Hg] [facility] Work Phone: 10-02-2013 14:49-0500 Pulse (Heart Rate) 81 /min [facility] Work Phone: 06-18-2013 09:11-0500 Height 180.34 cm [facility] Work Phone: Encounters Encounter Date Encounter Type Care Provider Facility Start: 06-14-2020 End: 06-18-2020 Evaluation and management of inpatient Leonardo Lozano Work Phone: [facility] Procedures Date Procedure Procedure Detail Performing Clinician Start: 06-20-2020 Microscopic examinat ion of blood, culture Plan of Treatment Date Care Activity Detail Author Start: 06-14-2023 Diabetes screen Diabetes screen [place], [place] Start: 06-15-2021 Lipid panel Lipid screen [place] Start: 06-24-2020 End: 06-24-2020 Office Visit 06/24/2020 Office Visit Neurosurgery Rojelio Moore MD [address] [place] [address] [phone] [facility] Start: 06-24-2020 End: 06-24-2020 Office Visit 06/24/2020 Office Visit Neurosurgery Chuck Montero MD [address] [place] [address] [phone] [facility] [place] Start: 06-16-2020 Annual Wellness Visit (AWV) Annual Wellness Visit (AWV) [place], [place] Start: 04-08-2020 Influenza vaccination Flu vaccine (#1) [place] Start: 09-08-2016 End: 09-08-2016 Physical Therapy General Physical Therapy [facility], [address] [place] [address], [address] [facility] Work Phone: Start: 09-07-2016 End: 09-07-2016 X-ray exam of neck spine X-Ray, Spine, Cervical 2-3 views [facility] Work Phone: Start: 09-07-2016 End: 09-07-2016 X-ray exam of shoulder X-Ray, Shoulder [facility] Work Phone: Start: 09-23-2015 End: 09-23-2015 X-ray exam of elbow X-Ray, Elbow [facility] Work Phone: Start: 2010 Screening for malignant neoplasm of colon Colon cancer screen colonoscopy [place], [place] Start: 2010 Shingles Vaccine (1 of 2) Shingles Vaccine (1 of 2) [place] Start: 1979 DTaP/Tdap/Td vaccine (1 - Tdap) DTaP/Tdap/Td vaccine (1 - Tdap) [place], [place] Start: 1960 Hepatitis C screening Hepatitis C screen [place], [place] Basic metabolic 2000 panel Basic Metabolic Panel Lab Routine Daily until discontinued starting 06/15/2020, 4 completed [facility] [place] Payers Date Payer Category Payer Medicare MEDICARE MEDICAR E PART A AND B [id number] 2019-Present [phone] [place] [address] [id number] Social History Date Type Detail Facility Start: 06-14-2020 Tobacco smoking status NHIS Former s moker [facility] [employer] Start: 06-14-2020 Tobacco use and exposure Current use r panpan History of tobacco use Snuff User panpan Sex Assigned At Not on file panpan Exposure to SARS-CoV-2 (event) Not sure panpan Summary Purpose Family History No Family History [...] at outside hospital, Peripheral Neuropathy?that presented to [facility] on 06/14/2020?from outside facility ([facility])?after admission for new onset seizures workup was [...] Aleksey Chavarria, - 06/17/2020 1:25 PM EST [facility] - Infectious Diseases Attending [...] Chest/Abdomen/Pelvis (No PO, No IV) Ordering Physician [id number] -BORCHARLES ROJELIO Accession Number [id number] CPT4 Codes 65385 (CT Chest/Abdomen/Pelvis (No PO, No IV)), 41119 (CT Abdomen (No PO, No IV Contrast)) [...] Patient Name:Gerber Rico Patient : 1960 Acct: [id number] Date of Admission: 06/14/2020 Room/Bed: 1325/1325B PCP: [...] AM Result Value Ref Range HIV 1+2 AB+[id number] AG, EIA NONREACTIVE Nonreactive NA CBC auto [...] # 2.1 1.0 - 4.3 10*3/uL Absolute [place] # 0.4 0.0 - 0.8 10*3/uL Absolute [...] eGFR >90.0 >60 mL/min EGFR IF NonAfrican Fijian >90.0 >60 mL/min Calcium 8.2 (L) 8.4 [...] weeks and ID in 1 week. -Continue [facility] Patient seen and discussed with Dr. [...] Date 06/17/20 0000 - 06/17/20 235 Shift [id number] 1799-1413 [id number] 24 Hour Total INTAKE Shift Total(mL/kg) OUTPUT [...] 06/15/2020 No results found for: PHART, PO2ART, SHN5LVB Recent Labs 06/14/202112 INR 0.9 Recent Labs [...] HLD, peripheral neuropathy, and episode of VT @[facility] admitted admitted 06/14/20 for new onset seizures. Initially presented to [facility] where MRI Brain was done which showed 0.9 x0.5 x0.3 cm ring-enhancing lesion in R posterior frontal lobe, suspicious of malignancy vs infectious or inflammatory lesion. Transferred to [facility], Neuro-cc and Neurosurgery consulted. EVENTS OF LAST [...] LISBETH GOMEZ MD, CHARLES V Accession Number [id number] CPT4 Codes 57524 () Reason For Exam left arm picc [...] convert to PO if able) None Anticipated [place] Medications (ICU initiated) or Dose Changes and Indication No Permanently Discontinued Home Medications and Reason for medication contraindication No Bladn Catheter (please remove if able) No Central Line (please remove if able) No Transfer Discussed with: Dr. Natalya Arellano If additional questions for ICU team within 24 hours of ICU transfer, page [phone] for clarifications. * Carley Hinkle RD, [place] [...] outside hospital, Peripheral Neuropathy that presented to [facility] on 06/14/2020 from outside facility ([place]) after admission for new onset seizures workup was significant for a frontal lobe mass, reports that about oneweek ago he started to notice his hand twitching, I would consistently double tap my phone withoutmeaning to , pt states a couple days GROUTMAN he woke up in the morning reached to grab his phone and his hand began to shake uncontrollably, at outside hospital a MRI Brain w/ and w/o contrast showed 0.9x0.5 x0.3 cm ring-enhancing lesion in the right posterior frontal lobe, suspicious of malignancy vs infectious or inflammatory lesion, pt was transferred to [facility] for further evaluation and management of a [...] time despite HgbA1c >14%, pt states that GROUTMAN he has been using Ensure ONS and is wondering if he can have ordered here with meals, will initiate and continue to monitor in patient care Malnutrition Assessment: Malnutrition Status: At risk for malnutrition (Comment)(pt claims that he has lost weight from 220#to stated CBW 160# over 6 months, will monitor, pt endorses good appetite and use of ONS GROUTMAN) Estimated Daily Nutrient Needs: Energy (kcal): 1888-2265kcals/day; Weight Used for Energy Requirements: [place] Protein (g): 76-91gm pro/day; Weight Used for Protein Requirements: [place] Fluid (ml/day): per MD Recommendations; Method Used [...] report, no history in EPIC to confirm) [place] Body Weight: 166 lbs; % [place] Body Weight 112.5 % BMI: 26.8 Adjusted [...] Too soon to determine Contact: pager [phone] * Mirella Vang MD - 06/15/2020 7:31 [...] []Injected [x]Non-Injected / Pinnae [x]Normal []Other/ Dentitian [][place] Teeth []No [place] Teeth []Dentures Oral Mucosa [x]Manteno [x]Moist []Dry/ Oral ETT []Present [x]Absent Neck: [...] []Absent/ FITCH ([x]RUE [x]RLE [x]LUE [x]LLE) Neurologic: COCOPAH []Yes []No Corneal reflexes []Present []Absent / [...] HTN, HLD, and episode of VT at [facility] who presented with new onset seizure. MRI [...] BE BASED ON THE PRIMARY CLINICAL RECORDS. [employer] [facility]. provides no warranty or guarantee of the accuracy or completeness of information in this document.
--- NOTE | 2023-07-31 22:29 | ECHOD_ITS ---
Reason For Study: TIA/CVA Procedure This was a 2D Doppler, Color Flow transthoracic echocardiogram. Exam performed portable in patient room. Left Ventricle Normal LV size. Mild concentric left ventricular hypertrophy. The estimated ejection fraction is 60 %. Stage 3 diastolic dysfunction. No regional wall motion abnormalities noted. Right Ventricle Normal RV size. Normal systolic function. Atria There is mild biatrial dilatation. Mitral Valve Mild focal mitral valve calcification of the anterior leaflet. Mild focal mitral valve thickening. Mild-Moderate (1-2+) mitral valve insufficiency. Tricuspid Valve Normal tricuspid valve. Mild to moderate (1-2+) tricuspid valve insufficiency. Right ventricular systolic pressure estimated to be 65 mmHg. Moderate pulmonary hypertension. Aortic Valve Trisinus/trileaflet aortic valve. Mild focal aortic valve calcification. Aortic sclerosis, no stenosis. Pulmonic Valve Normal pulmonic valve. Great Vessels Normal aortic root. Pericardium/Pleural Trivial pericardial effusion. There are no echocardiographic indications of cardiac tamponade. Medication Previous Negative Bubble Study. MMode/2D Measurements & Calculations LVIDd: 5.1 cm IVSd: 1.3 cm Ao root diam: 3.0 cm LVIDs: 3.5 cm LVPWd: 1.2 cm LA dimension: 4.4 cm RVDd: 4.1 cm FS: 31.4 % LAV(MOD-bp): 75.0 ml LVAd ap4: 30.7 cm2 SV(MOD-sp4): 55.5 ml LAV(MOD-bp) Indexed: 34.9 ml/m2 LVLd ap4: 8.5 cm LAV(MOD-sp2): 59.2 ml EDV(MOD-sp4): 92.5 ml LAV(MOD-sp4): 82.6 ml EDV(sp4-el): 94.4 ml LVAs ap4: 16.9 cm2 LVLs ap4: 6.6 cm ESV(MOD-sp4): 37.0 ml ESV(sp4-el): 36.9 ml EF(MOD-sp4): 60.0 % EF(sp4-el): 60.9 % SV(sp4-el): 57.5 ml LA A4 area: 25.6 cm2 RA A4 area: 21.2 cm2 TAPSE: 2.0 cm Time Measurements MV dec time: 0.17 sec Doppler Measurements & Calculations MV E max fermin: 125.6 cm/sec Lat Peak E' Fermin: 9.6 cm/sec Med Peak E' Fermin: 6.6 cm/sec MV A max fermin: 62.7 cm/sec E/E' lat: 13.1 E/E' med: 18.9 MV E/A: 2.0 MV V2 max: 133.7 cm/sec MV P1/2t max fermin: 133.7 cm/sec Ao V2 max: 141.1 cm/sec MV max P.1 mmHg MV P1/2t: 53.7 msec Ao max P.0 mmHg MV V2 mean: 62.7 cm/sec Ao V2 mean: 96.2 cm/sec MV mean P.0 mmHg MV dec slope: 728.8 cm/sec2 Ao mean P.4 mmHg MV V2 VTI: 31.4 cm MVA(P1/2t): 4.1 cm2 Ao V2 VTI: 31.6 cm AV (velocity ratio): 0.71 LV V1 max: 100.0 cm/sec MR max fermin: 571.6 cm/sec PA V2 max: 90.8 cm/sec LV V1 max P.0 mmHg MR max P.7 mmHg PA V2 mean: 61.9 cm/sec LV V1 mean P.4 mmHg MR mean fermin: 417.9 cm/sec LV V1 mean: 73.1 cm/sec MR mean P.4 mmHg LV V1 VTI: 22.3 cm MR VTI: 181.9 cm TR max fermin: 377.0 cm/sec TR max P.9 mmHg ECHO/Echo Complete Interpretation Summary The estimated ejection fraction is 60 %. Stage 3 diastolic dysfunction. Mild concentric left ventricular hypertrophy. There is mild biatrial dilatation. Mild-Moderate (1-2+) mitral valve insufficiency. Mild to moderate (1-2+) tricuspid valve insufficiency. Moderate pulmonary hypertension. Ordering Physician: Leonardo Hines Performed By: Ermias Urias RCS
--- NOTE | 2023-07-31 22:29 | CDU_ITS ---
Reason For Study: RLE weakness Rt. Velocities/BP Lt. Velocities/BP Prox CCA 51.3/11.6 cm/sec. Prox CCA 81.7/16.8 cm/sec. Mid CCA 45.6/12.6 cm/sec. Mid CCA 86.1/21.2 cm/sec. Dist CCA 55.1/14.5 cm/sec. Dist CCA 66.3/16.8 cm/sec. Prox ICA 143.0/29.8 cm/sec. Prox ICA 159.5/46.2 cm/sec. Mid ICA 122.9/33.4 cm/sec. Mid ICA 104.7/31.6 cm/sec. Dist ICA 119.3/29.8 cm/sec. Dist ICA 82.7/26.1 cm/sec. Rt. ICA/CCA = 3.1. Lt. ICA/CCA = 1.9. Prox ECA 117.4/13.3 cm/sec. Prox ECA 122.9/7.9 cm/sec. Rt. Vert. 61.9/13.5 cm/sec. Lt. Vert. 54.4/17.6 cm/sec. Right Extracranial There is heterogeneous, irregular atherosclerotic plaque noted in the right common carotid artery. There is heterogeneous, irregular atherosclerotic plaque noted in the right internal carotid artery. There is homogeneous, smooth atherosclerotic plaque noted in the right external carotid artery. Antegrade flow is noted in the right vertebral artery. Left Extracranial There is homogeneous, smooth atherosclerotic plaque noted in the left common carotid artery. There is heterogeneous, irregular atherosclerotic plaque noted in the left internal carotid artery. There is intimal thickening but no significant atherosclerotic plaque noted in the left external carotid artery. Antegrade flow is noted in the left vertebral artery. Procedure Carotid Duplex [id number]. This is a Carotid Duplex examination using B-mode, color flow and specral Doppler. The exam was diagnostic. Exam performed portable in patient room. VL/Carotid Duplex Ultrasound Interpretation Summary Moderate (50-69%) stenosis right extracranial internal carotid. Moderate (50-69%) stenosis left extracranial internal carotid. Patent and antegrade vertebrals bilaterally. Ordering Physician: Leonardo Hines Performed By: Raymond Quach RVT
[2023-07-31 23:34] LABS: Thyroid Stim Hormone (TSH) 7.09 uIU/mL (0.358-3.74)
[2023-08-01] VITALS (9 sets, daily range): BP systolic 130–158; BP diastolic 76–89; PULSE 69–79; RESP 16–18; TEMP 36.6–36.9; O2SAT 93–97; BMI 28.1
[2023-08-01] MEDS: Gabapentin 100 MG Capsule PO ×3 (06:31→20:37)
[2023-08-01 06:58] LABS: Valproic Acid (Depakene) Level 18 ug/mL (50-100)
[2023-08-01 07:06] LABS: Cholesterol 110 mg/dL (200); High Density Lipoprotein 30 mg/dL; Triglycerides 92 mg/dL; Very Low Density Lipoprotein 18 mg/dL (5-40)
[2023-08-01] MEDS: APIXABAN 5 MG TABLET PO ×2 (09:45→20:37)
[2023-08-01] MEDS: Divalproex Sodium 250 MG Tablet 1000 MG PO ×2 (09:45→20:36)
[2023-08-01] MEDS: BRIMONIDINE 0.2% 5ML BOTTLE 1 DRP OPHTHALMIC ×2 (09:47→20:37)
--- NOTE | 2023-08-01 10:06 | STROKE.CONS ---
Assessment and Plan: Stroke Assessment/Plan JAMES RICO is a 63 M with a history of 53 year old with CVA with residual left hemiparesis, h/o seizure disorder of divalproex, RLS, h/o migraine, polyneuropathy, hypertension, hyperlipidemia, obesity, hyperglycemia, h/o tobacco abuse, ESRD on hemodialysis, chronic atrial fibrillation on eliquis, h/o CHF, who presents for evaluation of right lower extremity weakness for about a week. Neurological examination shows chronic left lower extremity weakness from his old stroke and new onset right lower extremity weakness. Also has right hip pain and right low back pain. Neuroimaging shows normal CT brain. He ws not a thrombolysis candidate. 1. Right weakness. R/o stroke vs low back or hip pathology (given right groin pain and hip pain). Plan MRI Brain and if negative needs MRI Lumbar spine, evaluation of right hip as he reports pain. Carotid duplex to evaluate for stenosis. HbA1C, Fasting lipid profile to keep target LDL <70. He is already on eliquis for atrial fibrillation, continue this. 2. H/o prior stroke with residual left lower extremity weakness. Continue eliquis for atrial fibrillation 3. Essential hypertension. Target <180 mm Hg as he is in eliquis. Continue antihypertensives based on blood pressure 4. Hyperlipidemia: Target LDL <70. Continue statin 5. Obesity. Weight loss per PCP 6. ESRD: On hemodialysis 7. Smoking cessation 8. H/o Seizures: Continue valproate 9. Polyneuropathy: Continue gabapentin Stroke education PT, OT crystal in future Thanks for the consultation. I spent 73 minutes in evaluation of this patient HPI Consult Data Date of Consult: 08/01/23 HPI Narrative HPI Narrative: CC:Right lower extremity weakness JAMES RICO, is a 63 M [facility] past medical history of essential hypertension, hyperlipidemia, obesity; with BMI of 30.7 this admission, diabetes mellitus type 2, history of smokeless tobacco abuse, end-stage renal disease on hemodialysis; (M-W-F), chronic atrial fibrillation; on Eliquis, history of CHF, history of syncope, history of CVA: with residual left hemiparesis, history of seizure disorder; on divalproex, RLS, history of migraine headaches, polyneuropathy and osteoarthritis; with chronic back pain causing patient to ambulate with a cane who presents to [facility] ER complaining of right lower extremity weakness. He developed acute right lower extremity weakness. Prior to this he reports generalized weakness. He states he is now too weak to get up but he denies any trauma or falls as he was unable to get out of his car and now he cannot drive, climb stairs due to weakness He denies any bowel or bladder complaints. He still has residual left lower extremity weakness from his prior stroke. He also denies fever, chills, nausea, vomiting, chest pain or shortness of breath. In the ER he was suspected with possible subacute CVA with right lower extremity weakness and hence he is being evaluated. At baseline he has residual numbness in his lower extremities from his neuropathy. [facility] Medical History Acute and chronic respiratory failure with hypoxia Ambulates with cane Arthritis Back pain Cardiology follow-up encounter CHF (congestive heart failure) Chronic kidney disease, stage 4 (severe) Dietary restriction End stage renal disease Former smoker Heartburn High cholesterol History of atrial fibrillation History of echocardiogram History of pain when walking History of renal dialysis History of renal disease History of stress test HTN (hypertension) Injury of head and neck Insulin dependent diabetes mellitus Migraine headache Peripheral neuropathy Restless legs Seizures Stroke Syncope TIA (transient ischemic attack) Wears glasses Wears partial dentures Home Medications apixaban 5 mg tablet (Eliquis) 5 mg PO BID #60 tabs 03/24/22 [Rx Last Taken 09/16/22] atorvastatin 10 mg tablet 20 mg PO QHS 05/20/22 [History Last Taken Unknown] albuterol sulfate 90 mcg/actuation aerosol inhaler (Ventolin HFA) 2 puff inhalation Q6H PRN Wheezing 08/24/22 [History Last Taken Unknown] metoprolol tartrate 25 mg tablet 25 mg PO BID 08/24/22 [History Last Taken Unknown] amlodipine 10 mg tablet 10 mg PO DAILY #30 tabs 09/15/22 [Rx Last Taken 09/17/22] Manual wheelchair #1 ea 03/24/23 [Rx Last Taken Unknown] gabapentin 100 mg capsule 100 mg PO TID #90 caps 04/20/23 [Rx Last Taken Unknown] brimonidine 0.2 % eye drops 1 drp ophthalmic (eye) BID 05/11/23 [History Last Taken Unknown] divalproex 500 mg tablet,delayed release (Depakote) 1,000 mg PO BID 12/24/23 [History Last Taken Unknown] Allergy/AdvReac Type Severity Reaction Status Date / Time lisinopril AdvReac Severe Other Verified 07/31/23 16:32 oxycodone AdvReac Severe Other Verified 07/31/23 16:32 hydrocodone bitartrate AdvReac Mild HYPER Verified 07/31/23 16:32 [From Vicodin] Family History Father Cancer Prostate Heart disease Mother Heart disease Diabetes Other COPD (chronic obstructive pulmonary disease) Surgical History History of rotator cuff surgery History of umbilical hernia repair Hx of arteriovenostomy for renal dialysis Hx of left cataract extraction Hx of right cataract extraction S/P arteriovenous (AV) fistula creation Status post foot surgery Social History household members: spouse and children number of children: 3 current occupational status: disabled Smoking Status: Never smoker Smokeless tobacco user: snuff second hand exposure: No alcohol intake: never substance use type: does not use what type of physical activity do you participate in: other details: health point frequency: 3-4 times per week [facility]: Other seatbelt use: always Vital Signs Vital Signs Vital Signs: 07/31/23 16:25 07/31/23 16:28 07/31/23 16:29 Temperature 96.6 F L 96.6 F L Temperature Source Temporal Temporal Pulse Rate 92 105 H Respiratory Rate 15 14 Respiratory Effort Normal Non-Labored Respiratory Depth Respiratory Pattern Normal Blood Pressure 128/78 H 128/78 H Blood Pressure Mean 94 94 Blood Pressure Source Blood Pressure Position Blood Pressure Location Pulse Ox 97 97 Oxygen Delivery Method Room Air Room Air Oxygen Flow Rate (L/min) 07/31/23 17:53 07/31/23 19:16 07/31/23 20:00 Temperature 97.5 F L 97.4 F L 98 F Temperature Source Temporal Temporal Temporal Pulse Rate 86 82 77 Respiratory Rate 17 18 18 Respiratory Effort Respiratory Depth Respiratory Pattern Blood Pressure 132/92 H 173/93 H 171/96 H Blood Pressure Mean 105 119 121 Blood Pressure Source Blood Pressure Position Blood Pressure Location Pulse Ox 95 95 93 Oxygen Delivery Method Room Air Room Air Room Air Oxygen Flow Rate (L/min) 07/31/23 21:00 07/31/23 21:22 07/31/23 22:40 Temperature 98.1 F 97.8 F 97.2 F L Temperature Source Temporal Temporal Pulse Rate 76 74 71 Respiratory Rate 16 16 16 Respiratory Effort Respiratory Depth Respiratory Pattern Blood Pressure 153/88 H 150/83 H 151/87 H Blood Pressure Mean 109 105 108 Blood Pressure Source Blood Pressure Position Blood Pressure Location Pulse Ox 94 98 94 Oxygen Delivery Method Room Air Room Air Oxygen Flow Rate (L/min) 07/31/23 23:22 08/01/23 02:40 08/01/23 03:22 Temperature 97.8 F Temperature Source Temporal Pulse Rate 69 Respiratory Rate 18 Respiratory Effort Normal Non-Labored Respiratory Depth Normal Respiratory Pattern Normal Blood Pressure 151/81 H Blood Pressure Mean 104 Blood Pressure Source Blood Pressure Position Blood Pressure Location Pulse Ox 97 97 Oxygen Delivery Method Room Air Nasal Cannula Nasal Cannula Oxygen Flow Rate (L/min) 2 2 08/01/23 04:29 08/01/23 06:30 08/01/23 07:25 Temperature 97.8 F Temperature Source Temporal Pulse Rate 69 Respiratory Rate 18 Respiratory Effort Normal Non-Labored Respiratory Depth Normal Respiratory Pattern Normal Blood Pressure 145/82 H Blood Pressure Mean 103 Blood Pressure Source Blood Pressure Position Blood Pressure Location Pulse Ox 96 95 Oxygen Delivery Method Room Air Room Air Room Air Oxygen Flow Rate (L/min) 08/01/23 09:32 08/01/23 09:48 Temperature 98.3 F Temperature Source Oral Pulse Rate 76 Respiratory Rate 17 Respiratory Effort Normal Non-Labored Respiratory Depth Normal Respiratory Pattern Normal Blood Pressure 158/82 H Blood Pressure Mean 107 Blood Pressure Source Monitor Blood Pressure Position Semi-Fowlers Blood Pressure Location Left Arm Pulse Ox 93 Oxygen Delivery Method Room Air Room Air Oxygen Flow Rate (L/min) Weight Weight: 89 kg Body Mass Index (BMI) 28.1 EEG Results Procedure Details EEG Procedure Details: JAMES RICO is a 63 year old M with a past medical history of , who presents for evaluation of Electroencephalogram on DATE at TIME NIHSS NIHSS Nursing Documentation NIHSS Nursing Documentation: NIHSS: Ischemic Stroke/TIA Start: 07/31/23 22:31 Text: For ICU Patients: NIH sroke scale at Status: Complete presentation and every 2 hours or with change in RN caregiver Freq: [id number] Protocol: Activity Type Activity Date Activity User E-sign Co-sign Detail Recorded Client Recorded Date Recorded By Document 07/31/23 22:40 MM Laptop 07/31/23 22:44 MM 07/31/23 22:40 NIH Stroke Scale [NIHSS] A score of 0 is normal or asymptomatic . Total possible score is 42. Inpatient: RN or Physician to activate a stroke alert for onset of new stroke symptoms or with NIHSS increase >/= 3 points. Following change in neurological status, NIHSS will be performed per physician order or more frequently PRN. -1a. Level of Consciousness Alert; keenly responsive -1b. LOC Questions Answers BOTH questions correctly. -1c. LOC Commands Performs both tasks correctly . -2. Best Gaze Normal -3. Visual No visual loss -4. Facial Palsy Normal symmetrical movements -5a. Left Arm No drift; arm holds 90 (or 45 ) degrees for full 10 seconds -5b. Right Arm No drift; arm holds 90 (or 45 ) degrees for full 10 seconds -6a. Left Leg Drift; leg falls by the end of 5- seconds, but does not hit bed -6b. Right Leg Some effort against gravity ; -7. Limb Ataxia Absent -8. Sensory Normal; no sensory loss -9. Best Language No aphasia; normal -10. Dysarthria Normal -11. Extinction and Inattention No abnormality -Total 3 Query Text:A score of 0 is normal or asymptomatic. Total possible score is 42 . ED: Notify Physician for NIHSS increase by > / = 3 points. Inpatient: RN or Physician to activate a stroke alert for NIHSS increase of > / = 3 points. Coma Scale [Assess] -Eye Opening Spontaneous -Motor Obeys Commands -Verbal Oriented [Total] -Coma Scale Total 15 NIHSS: Ischemic Stroke/TIA Start: 07/31/23 22:31 Text: For PCU Patients: NIH and Neuro Check every 4 Status: Active hours and PRN Freq: [id number] Protocol: Activity Type Activity Date Activity User E-sign Co-sign Detail Recorded Client Recorded Date Recorded By Document 08/01/23 09:32 Desktop 08/01/23 09:41 08/01/23 09:32 NIH Stroke Scale [NIHSS] A score of 0 is normal or asymptomatic . Total possible score is 42. Inpatient: RN or Physician to activate a stroke alert for onset of new stroke symptoms or with NIHSS increase >/= 3 points. Following change in neurological status, NIHSS will be performed per physician order or more frequently PRN. -1a. Level of Consciousness Alert; keenly responsive -1b. LOC Questions Answers BOTH questions correctly. -1c. LOC Commands Performs both tasks correctly . -2. Best Gaze Normal -3. Visual No visual loss -4. Facial Palsy Normal symmetrical movements -5a. Left Arm No drift; arm holds 90 (or 45 ) degrees for full 10 seconds -5b. Right Arm No drift; arm holds 90 (or 45 ) degrees for full 10 seconds -6a. Left Leg Some effort against gravity ; -6b. Right Leg Some effort against gravity ; -7. Limb Ataxia Absent -8. Sensory Mild-to- moderate sensory loss; -9. Best Language No aphasia; normal -10. Dysarthria Normal -11. Extinction and Inattention No abnormality -Total 5 Query Text:A score of 0 is normal or asymptomatic. Total possible score is 42 . ED: Notify Physician for NIHSS increase by > / = 3 points. Inpatient: RN or Physician to activate a stroke alert for NIHSS increase of > / = 3 points. Coma Scale [Assess] -Eye Opening Spontaneous -Motor Obeys Commands -Verbal Oriented [Total] -Coma Scale Total 15 NIHSS 1a. Level of Consciousness: Alert; keenly responsive 1b. LOC Questions: Answers BOTH questions correctly. 1c. LOC Commands: Performs both tasks correctly. 2. Best Gaze: Normal 3. Visual: No visual loss 4. Facial Palsy: Normal symmetrical movements 5a. Left Arm: No drift; arm holds 90 (or 45) degrees for full 10 seconds 5b. Right Arm: No drift; arm holds 90 (or 45) degrees for full 10 seconds 6a. Left Leg: Some effort against gravity; 6b. Right Leg: Some effort against gravity; 7. Limb Ataxia: Absent 8. Sensory: [id number] sensory loss; 9. Best Language: No aphasia; normal 10. Dysarthria: Normal Total: 5 Stroke Questions a.Reviewed Inclusion/Exclusion criteria: Yes Was Patient considered for Endovascular Intervention?: No IV Thrombolytic Administered: No No contraindications from thrombolytic administration: No Risks, Benefits, Alternatives Discussed: No Physical Exam Const Constitutional Narrative: Awake, alert General Appearance: cooperative and comfortable Orientation / Consciousness: awake, oriented to person, oriented to place and oriented to time Exam Limitations: no limitations Nutritional Appearance: obese HEENT normocephalic, head/scalp atraumatic and hearing grossly normal bilaterally Eyes EOMs intact bilaterally Neck full ROM Lymph Lymphatic: no lymphedema noted Chest inspection of chest normal Resp normal respiratory effort Cardio no JVD GI non-distended Extremity normal to inspection Extremity Narrative: Pain in right groin to movement Neuro oriented x3 and CN's II-XII intact bilaterally Neuro Narrative: Speech: fluent, no dysarthria or aphasia Motor power: Upper extremity no drift, Bilateral lower extremity difficulty sustaining against gravity Sensation: Increased sensation on the right side No upper extremity ataxia Psych mental status grossly normal Lab / Micro Data 07/31/23 17:40 07/31/23 17:40 Labs: Laboratory Results - last 24 hr 07/31/23 17:40: WBC 6.4, RBC 3.86 L, Hgb 11.7 L, Hct 36.3 L, MCV 94.0, MCH 30.3, MCHC 32.2, RDW Std Deviation 48.9 H, RDW Coeff of Silvia 14.2, Plt Count 258, MPV 10.9, Immature Gran % (Auto) 0.300, Neut % (Auto) 74.2 H, Lymph % (Auto) 12.6 L, [place] % (Auto) 7.8, Eos % (Auto) 4.2, Baso % (Auto) 0.9, Absolute Neuts (auto) 4.8, Absolute Lymphs (auto) 0.81 L, Nucleated RBC % 0, Sodium 137, Potassium 4.2, Chloride 101, Carbon Dioxide 28.0, Anion Gap 8, BUN 58 H, Creatinine 7.86 H*, Estim Creat Clear Calc 9.93, Est GFR (MDRD) Af Amer 9 L, Est GFR (MDRD) Non-Af 7 L, BUN/Creatinine Ratio 7.4 L, Glucose 164 H, Calcium 7.8 L, Total Bilirubin 0.50, AST 22, ALT 16, Alkaline Phosphatase 71, Troponin I High Sens 14, Total Protein 7.5, Albumin 3.3, Globulin 4.2, Albumin/Globulin Ratio 0.8 L 07/31/23 22:55: TSH 7.09 H, Ethyl Alcohol 4.0 08/01/23 06:00: Triglycerides 92, Cholesterol 110, LDL Cholesterol 62, VLDL Cholesterol 18, HDL Cholesterol 30 L, Free T4 0.90, Valproic Acid 18 L Micro: Microbiology 07/31/23 16:58 Nasal Secretion SARS-CoV-2 & FLU Antigen (Rapid) - Final Imagaing Radiology Impression Chest X-Ray 07/31/23 17:25 IMPRESSION: No acute findings in the chest. Electronically Signed: José Luis Padilla MD at 17:37 EST , Brain CT 07/31/23 20:45 IMPRESSION: There are no acute findings. Electronically Signed: José Luis Padilla MD at 21:04 EST , Active Medications Active Medications Active Medications: Current Medications Generic Name Dose Route Start Last Admin Trade Name Freq PRN Reason Stop Dose Admin Acetaminophen 650 mg 07/31/23 22:31 Acetaminophen 325 Mg Tablet PO Q4H PRN PRN Pain 1-10 Or Fever>99.6 Albuterol Sulfate 2.5 mg 07/31/23 22:31 Albuterol 2.5 Mg/3 Ml Vial.Neb. INHALATION Q4H PRN PRN Wheezing Apixaban 5 mg 08/01/23 10:00 08/01/23 09:45 Apixaban 5 Mg Tablet PO 5 mg BID FREDERIC Administration Atorvastatin Calcium 20 mg 08/01/23 22:00 Atorvastatin Calcium 20 Mg Tablet PO QHS FREDERIC Brimonidine Tartrate 1 drp 08/01/23 10:00 08/01/23 09:47 Brimonidine 0.2% 5ml Bottle OPHTHALMIC 1 drp BID FREDERIC Administration Divalproex Sodium 1,000 mg 08/01/23 10:00 08/01/23 09:45 Divalproex Sodium 250 Mg Tablet PO 1,000 mg BID FREDERIC Administration Gabapentin 100 mg 08/01/23 06:00 08/01/23 06:31 Gabapentin 100 Mg Capsule PO 100 mg TID FREDERIC Administration Hydralazine HCl 5 mg 07/31/23 22:31 Hydralazine 20 Mg/Ml Vial IV Q30M PRN to maintain BP goals Sodium Chloride 250 mls @ 15 mls/hr 07/31/23 22:33 IV .[id number] PRN Additional IVPB Infusion Sodium Chloride 250 mls @ 15 mls/hr 07/31/23 22:33 IV .[id number] PRN Saline Flush Sodium Chloride 10 - 40 ml 07/31/23 22:33 0.9% Saline Lock 10 Ml Syringe IV UD PRN SALINE FLUSH
--- NOTE | 2023-08-01 11:33 | PN_ITS ---
Subjective Subjective Patient seen and examined. He still complains of RLE weakness and pain in right hip. He says he has chronic tingling and numbness in manuel RLE, and this hasnt worsened. Review of systems is otherwise negative. Objective Data Objective Data Vital Signs: Vital Signs Temp Pulse Resp BP Pulse Ox O2 Del Method O2 Flow Rate 98.3 F 76 17 158/82 H 93 Room Air 2 08/01/23 09:32 08/01/23 09:32 08/01/23 09:32 08/01/23 09:32 08/01/23 09:32 08/01/23 09:48 08/01/23 03:22 Oxygen Flow Rate (L/min) 2 Oxygen Delivery Method Room Air Weight: 196 lb 3.382 oz Body Mass Index (BMI) 28.1 Intake & Output: Intake and Output for Last 24 Hours 07/30/23 07/31/23 08/01/23 23:59 23:59 23:59 Output Total 0 / 0 Balance 0 / 0 Lab / Micro Data 07/31/23 17:40 07/31/23 17:40 Labs: Laboratory Results - last 24 hr 07/31/23 17:40: WBC 6.4, RBC 3.86 L, Hgb 11.7 L, Hct 36.3 L, MCV 94.0, MCH 30.3, MCHC 32.2, RDW Std Deviation 48.9 H, RDW Coeff of Silvia 14.2, Plt Count 258, MPV 10.9, Immature Gran % (Auto) 0.300, Neut % (Auto) 74.2 H, Lymph % (Auto) 12.6 L, [place] % (Auto) 7.8, Eos % (Auto) 4.2, Baso % (Auto) 0.9, Absolute Neuts (auto) 4.8, Absolute Lymphs (auto) 0.81 L, Nucleated RBC % 0, Sodium 137, Potassium 4.2, Chloride 101, Carbon Dioxide 28.0, Anion Gap 8, BUN 58 H, Creatinine 7.86 H*, Estim Creat Clear Calc 9.93, Est GFR (MDRD) Af Amer 9 L, Est GFR (MDRD) Non- Af 7 L, BUN/Creatinine Ratio 7.4 L, Glucose 164 H, Calcium 7.8 L, Total Bilirubin 0.50, AST 22, ALT 16, Alkaline Phosphatase 71, Troponin I High Sens 14, Total Protein 7.5, Albumin 3.3, Globulin 4.2, Albumin/Globulin Ratio 0.8 L 07/31/23 22:55: TSH 7.09 H, Ethyl Alcohol 4.0 08/01/23 06:00: Triglycerides 92, Cholesterol 110, LDL Cholesterol 62, VLDL Ch olesterol 18, HDL Cholesterol 30 L, Free T4 0.90, Valproic Acid 18 L Micro: Microbiology 07/31/23 16:58 Nasal Secretion SARS-CoV-2 & FLU Antigen (Rapid) - Final Radiography Diagnostic Testing: Radiology Impression Chest X-Ray 07/31/23 17:25 IMPRESSION: No acute findings in the chest. Electronically Signed: José Luis Padilla MD at 17:37 EST , Brain CT 07/31/23 20:45 IMPRESSION: There are no acute findings. Electronically Signed: José Luis Padilla MD at 21:04 EST , Physical Exam Const alert, oriented x3 and no apparent distress General Appearance: cooperative and well developed HEENT normocephalic, head/scalp atraumatic, moist oral mucous membranes and oropharynx normal Eyes PERRL and EOMs intact bilaterally Neck no lymphadenopathy and supple Lymph Lymphatic: no lymphadenopathy noted and no lymphedema noted Resp normal respiratory effort, normal air movement and clear to auscultation bilaterally Cardio regular rate, regular rhythm, S1 normal heart sound, S2 normal heart sound and no murmurs GI normal to inspection, nondistended, normoactive bowel sounds, soft to palpation, non-tender and non-distended Extremity normal capillary refill, no clubbing, cyanosis or edema and no calf tenderness General Extremity: no tenderness to palpation of joints or extremities Neuro CN's II-XII intact bilaterally, no focal motor deficits, no sensory deficits noted and deep tendon reflexes 2+ bilaterally Motor Exam: strength 5/5 throughout and general weakness Psych thought process normal and cooperative Appearance: appropriate Assessment & Plan Assessment/Plan (1) Right leg weakness: (2) Weakness: PLAN: Plan #RLE weakness * to rule out stroke * MRI of hte brain ordered and pending * 2D echo also ordered and pending * on aspirin and statin * he has pain with flexion of right hip, so I am concerned this weakness may be due to a lumbar pathology which is causing referred pain in the right hip * will get lumbar spine imaing as well as right hip imaging * PT/OT on board. fall precautions * carotid USG pending. * #history of CVA with residual left hemiparresis; #Benign essential hypertension: BP meds on hold to allow for permissive hypertension until CVA is definitely ruled out. #ESRD: On hemodialysis on Wednesdays and Fridays. Will consult nephrology. #Hyperlipidemia: On statin #Type 2 diabetes mellitus: On insulin sliding scale. Accu-Cheks ACHS. #A-fib: On Eliquis #History of heart failure: Not in exacerbation. #History of seizure disorder: On valproic acid. IV Ativan as needed #Restless leg syndrome: Currently not on treatment. To give Requip if needed. DVT prophylaxis: Already on Eliquis Charges/Coding Visit Charges Inpatient E&M: 35617 Subs Hosp L2
--- NOTE | 2023-08-01 11:40 | CT_ITS ---
EXAM: CT LUMBAR SPINE WITHOUT INTRAVENOUS CONTRAST CLINICAL INDICATION: lumbar stenosis TECHNIQUE: Helically acquired images were obtained of the lumbar spine without intravenous contrast. 2D reformats were reviewed. This CT exam was performed using one or more of the following dose reduction techniques: automated exposure control, adjustment of the mA and/or kV according to patient size, and/or use of iterative reconstruction technique. COMPARISON: No relevant prior studies available. FINDINGS: VERTEBRAE: Mild vertebral body osteophytosis. Mild facet arthropathy at L4-5. No fracture. No traumatic subluxation. No discrete lytic or blastic abnormality. Normal alignment. DISCS/SPINAL CANAL/NEURAL FORAMINA: Mild disc space narrowing at the L2-3 level. No evidence of significant spinal or neural foraminal stenosis. SOFT TISSUES: Dependent edema noted within the posterior subcutaneous tissues. VASCULATURE: Visualized abdominal aorta is not dilated. LYMPH NODES: Normal. No retroperitoneal adenopathy. LUNGS AND PLEURAL SPACES: Minimal pleural effusion noted bilaterally. CT/Spine Lumbar without Contrast IMPRESSION: Mild spondylosis. No evidence of spinal and neural foraminal stenosis. Electronically Signed: Jayy Ruiz MD at 13:49 EST ,
--- NOTE | 2023-08-01 12:50 | RAD_ITS ---
EXAM: XR RIGHT HIP WITH PELVIS WHEN PERFORMED, 2 OR 3 VIEWS CLINICAL INDICATION: right hip pain TECHNIQUE: Two or three views of the right hip with pelvis when performed. COMPARISON: No relevant prior studies available. FINDINGS: BONES/JOINTS: No acute abnormality. SOFT TISSUES: Normal. No soft tissue swelling or gas. RAD/HIP, UNI W/ Pelvis 2-3 Views IMPRESSION: No evidence of displaced pelvic or hip fracture. Electronically Signed: Jayy Ruiz MD at 13:54 EST ,
[2023-08-01 15:48] LABS: Anion Gap 7 (5-15); BUN 70 mg/dL (7-18); BUN/Creat Ratio 7.7 RATIO (10-20); Calcium,Total 7.4 mg/dL (8.5-10.1); Chloride 103 mmol/L (98-107); Creatinine, Serum 9.12 mg/dL (0.70-1.30); EST Glomerular Filtration Rate 6 mL/min (>60); Est Glom Filt Rate - Afr Amer 8 mL/min (>60); Estimated Creatinine Clearance 8.56 ml/min; Glucose 152 mg/dL (74-106); Potassium 5.2 mmol/L (3.5-5.1); Sodium Level 138 mmol/L (136-145)
[2023-08-01] MEDS: Atorvastatin Calcium 20 MG Tablet PO (20:36)
[2023-08-02] VITALS (15 sets, daily range): BP systolic 126–211; BP diastolic 82–97; PULSE 71–100; RESP 14–16; TEMP 36.6–36.9; O2SAT 94–98; BMI 28.1; BMI 28.0; BMI 27.0
[2023-08-02] MEDS: Gabapentin 100 MG Capsule PO ×2 (06:08→14:30)
--- NOTE | 2023-08-02 08:38 | MRI_ITS ---
EXAM: MR HEAD WITHOUT INTRAVENOUS CONTRAST CLINICAL INDICATION: Right lower extremity weakness TECHNIQUE: Multiplanar and multisequence MR images of the brain were obtained without intravenous contrast. COMPARISON: MRI brain without contrast 03/22/2022. CT head without contrast 07/31/2023. FINDINGS: BRAIN AND EXTRA-AXIAL SPACES: Periventricular white matter more than subcortical white matter T2 FLAIR hyperintensity in the cerebral hemispheres are chronic white matter ischemic changes. These are unchanged. No intra- or extra-axial hemorrhage. No intracranial mass or mass effect. Posterior fossa structures are unremarkable. No hydrocephalus. Basal cisterns are patent. No diffusion restriction to suspect acute or subacute ischemic infarct throughout the brain parenchyma. SELLA: Unremarkable. Normal sella turcica, pituitary gland, infundibular stalk, optic chiasm and hypothalamus. AUDITORY SYSTEM: Unremarkable. The internal auditory canals are patent. BONES/JOINTS: Unremarkable. No discrete lytic or blastic abnormalities. SINUSES: Unremarkable as visualized. Clear. MASTOID AIR CELLS: Unremarkable as visualized. Clear. ORBITS: Unremarkable as visualized. Both globes, extraocular muscles, optic nerves and retrobulbar fat appear unremarkable. VASCULATURE: Unremarkable as visualized. Normal flow voids in the major intracranial circulation. MRI/Brain without Contrast IMPRESSION: 1. No MRI evidence of acute or subacute ischemic infarct or acute intracranial abnormality. 2. Chronic white matter ischemic changes in both cerebral hemispheres. 3. No significant interval change when compared to 03/22/2022. Electronically Signed: Daryn Richter MD at 11:05 EST ,
[2023-08-02] MEDS: BRIMONIDINE 0.2% 5ML BOTTLE 1 DRP OPHTHALMIC (09:05)
[2023-08-02] MEDS: Divalproex Sodium 250 MG Tablet 1000 MG PO (09:05)
[2023-08-02] MEDS: APIXABAN 5 MG TABLET PO (09:05)
[2023-08-02] MEDS: 0.9% Normal Saline 1,000 ML IV.SOLN. 1000 ML OPERA.SITE (11:33)
[2023-08-02] MEDS: PureFlow B 2K Dialysis Soln 1 BAG 6 BAG PF (11:34)
[2023-08-02] MEDS: 0.9% Saline Lock 10 ML Syringe IV (11:34)
--- NOTE | 2023-08-02 11:42 | PCM.PN.REN ---
Subjective Subjective Came over to supervise during dialysis session. He is doing okay, denies any complaints. Catheter right IJ tunneled hemodialysis catheter has been accessed without difficulties. Hemodynamically stable. Fluid overloaded. Objective Data Objective Data Vital Signs: Vital Signs Temp Pulse Resp BP Pulse Ox O2 Del Method O2 Flow Rate 97.9 F 82 15 156/85 H 95 Room Air 2 08/02/23 10:00 08/02/23 11:15 08/02/23 11:15 08/02/23 11:15 08/02/23 11:15 08/02/23 11:15 08/01/23 03:22 Oxygen Flow Rate (L/min) 2 Oxygen Delivery Method Room Air Weight: 89 kg Body Mass Index (BMI) 28.0 Intake & Output: Intake and Output for Last 24 Hours 07/31/23 08/01/23 08/02/23 23:59 23:59 23:59 Intake Total 440 / 440 50 / 50 Output Total 0 / 0 Balance 0 / 0 440 / 440 50 / 50 Lab / Micro Data Attestation: I reviewed the patient's lab results. 07/31/23 17:40 08/01/23 15:06 Labs: Laboratory Results - last 24 hr 08/01/23 15:06: Sodium 138, Potassium 5.2 H, Chloride 103, Carbon Dioxide 28.0, Anion Gap 7, BUN 70 H, Creatinine 9.12 H*, Estim Creat Clear Calc 8.56, Est GFR (MDRD) Af Amer 8 L, Est GFR (MDRD) Non-Af 6 L, BUN/Creatinine Ratio 7.7 L, Glucose 152 H, Calcium 7.4 L Micro: Microbiology 07/31/23 16:58 Nasal Secretion SARS-CoV-2 & FLU Antigen (Rapid) - Final Radiography Diagnostic Testing: Radiology Impression Lumbar Spine CT 08/01/23 11:40 IMPRESSION: Mild spondylosis. No evidence of spinal and neural foraminal stenosis. Electronically Signed: Jayy Ruiz MD at 13:49 EST , Hip/Pelvis X-Ray 08/01/23 12:50 IMPRESSION: No evidence of displaced pelvic or hip fracture. Electronically Signed: Jayy Ruiz MD at 13:54 EST , Brain MRI 08/02/23 08:38 IMPRESSION: 1. No MRI evidence of acute or subacute ischemic infarct or acute intracranial abnormality. 2. Chronic white matter ischemic changes in both cerebral hemispheres. 3. No significant interval change when compared to 03/22/2022. Electronically Signed: Daryn Richter MD at 11:05 EST , Physical Exam Const alert, oriented x3, no apparent distress and average body habitus Orientation / Consciousness: oriented to person, oriented to place and oriented to time HEENT normocephalic Head and Scalp: atraumatic Eyes PERRL Neck no lymphadenopathy Resp no use of accessory muscles and clear to auscultation bilaterally Cardio regular rate, no murmurs and no rub GI non-tender and non-distended Auscultation: normoactive bowel sounds Skin no rashes or lesions noted Assessment & Plan Assessment/Plan (1) ESRD (end stage renal disease) on dialysis: PLAN: Patient is stable on dialysis, but quite fluid overloaded. Will plan to dialyze today with high ultrafiltration as well as tomorrow.
--- NOTE | 2023-08-02 13:28 | WOUNDNOTE ---
wound photo: right plantar foot
[2023-08-02] MEDS: Heparin 10,000 UNITS/10 ML Vial IV (13:53)
--- NOTE | 2023-08-02 14:00 | DCINST_ITS ---
Discharge Instructions Diet Discharge Diet: Low fat / Low cholesterol Activity Discharge Activity: Return to Normal Activity Weight Bearing Status: Weight bearing as tolerated Dressing / Incision Call your doctor if you observe: Fever of 101 or Higher, Shortness of breath, Dizziness, Swelling in the ankles, Chest pain and - (worsening RLE weakness) Follow Up Care Test Results: Test results from this visit will be discussed in further detail at your follow- up appointment, if applicable. Discharge Plan Admission Admit Date/Time: 07/31/23 22:22 Primary Reason for Your Visit: RLE weakness Attending Provider: Delphine Ness Primary Care Provider: Amish Han Consulting Providers: Bob Vinson; Flaco Herrera; Arlene Gaitan; Daily Eason; Lalita Almeida; Spike Hdez; Madeleine Carreon; Mikey Falcon; Jv Lindquist; Irma Schmitz; Rickey Gonzalez; Angeles Mobley; Joshua Reyes; Donald Barnett; Nathaniel Kennedy; Ezequiel Bowman; Pavan Castillo; Louise Canseco; Natasha Mejia; Leonardo Hines; Katherin Sandoval Instructions Patient Instructions: ED Weakness (Uncertain Cause) Discharge Orders/Prescriptions Prescriptions: Continued albuterol sulfate [Ventolin HFA] 90 mcg/actuation HFA aerosol inhaler 2 puff inhalation Q6H PRN (Reason: Wheezing) metoprolol tartrate 25 mg tablet 25 mg PO BID gabapentin 100 mg capsule 100 mg PO TID Qty: 90 3RF Eliquis 5 mg tablet 5 mg PO BID Qty: 60 0RF atorvastatin 10 mg Tablet 20 mg PO QHS amlodipine 10 mg tablet 10 mg PO DAILY Qty: 30 0RF divalproex [Depakote] 500 mg tablet,delayed release (DR/EC) 1,000 mg PO BID brimonidine 0.2 % drops 1 drp ophthalmic (eye) BID Patient Comments: Instill 1 drop in the right eye 2 times a day (DME) Manual wheelchair See Rx Instructions .Route .MEDSUPPLY Qty: 1 0RF Rx Instructions: ICD 10: Polyneuropathy (G62.9); cerebral infarction (I69.30); weakness (R53.1) Referrals / Follow Up: Amish Han MD [Primary Care Provider] - Within 2 Weeks Philip Carrasco MD [Non-Staff -Ordering Privileges] - Within 2 Weeks Disposition Disposition (needs filled in before D/C Order can be placed): Home, Self Care
--- NOTE | 2023-08-02 14:05 | PCM.DC.SUM ---
Providers Date of Admission: 07/31/23 Date of Discharge: 08/02/23 Primary Care Physician: Dr. Amish Han MD Consultations 07/31/23 22:31 Consult: Tele-Neurology Routine Consulting Provider: [facility] Reason for Consult: Acute Ischemic Stroke/TIA EMERGENT Consult: No Notified: Yes Date Notified: 07/31/23 Time Notified: 22:24 Method of Notification: Answering Service Method of Consult:: Telemedicine Comments:: Dr Almeida is on 08/01/23 Nursing Unit Staff Notify [facility] of Tele-Neurology Consult: Yes 08/01/23 14:32 Consult: Nephrology Routine Consulting Provider: Katherin Sandoval Reason for Consult: ESRD, on hemodialysis EMERGENT Consult: No Notified: Yes Date Notified: 08/01/23 Time Notified: 14:32 Method of Notification: Text 08/02/23 11:07 Consult: 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 Routine Comment: Comments:: Right Foot Wound Reason For Visit: RIGHT LEG WEAKNESS Diagnosis Discharge Diagnosis (1) ESRD (end stage renal disease) on dialysis: Status: Acute Code(s): N18.6 - End stage renal disease; Z99.2 - Dependence on renal dialysis Plan #RLE weakness to rule out stroke MRI of hte brain ordered and pending 2D echo also ordered and pending on aspirin and statin he has pain with flexion of right hip, so I am concerned this weakness may be due to a lumbar pathology which is causing referred pain in the right hip will get lumbar spine imaing as well as right hip imaging PT/OT on board. fall precautions carotid USG pending. #history of CVA with residual left hemiparresis; #Benign essential hypertension: BP meds on hold to allow for permissive hypertension until CVA is definitely ruled out. #ESRD: On hemodialysis on Wednesdays and Fridays. Will consult nephrology. #Hyperlipidemia: On statin #Type 2 diabetes mellitus: On insulin sliding scale. Accu-Cheks ACHS. #A-fib: On Eliquis #History of heart failure: Not in exacerbation. #History of seizure disorder: On valproic acid. IV Ativan as needed #Restless leg syndrome: Currently not on treatment. To give Requip if needed. DVT prophylaxis: Already on Eliquis Medications at Discharge Home Medications apixaban 5 mg tablet (Eliquis) 5 mg PO BID #60 tabs 03/24/22 atorvastatin 10 mg tablet 20 mg PO QHS 05/20/22 albuterol sulfate 90 mcg/actuation aerosol inhaler (Ventolin HFA) 2 puff inhalation Q6H PRN Wheezing 08/24/22 metoprolol tartrate 25 mg tablet 25 mg PO BID 08/24/22 amlodipine 10 mg tablet 10 mg PO DAILY #30 tabs 09/15/22 Manual wheelchair #1 ea 03/24/23 gabapentin 100 mg capsule 100 mg PO TID #90 caps 04/20/23 brimonidine 0.2 % eye drops 1 drp ophthalmic (eye) BID 05/11/23 divalproex 500 mg tablet,delayed release (Depakote) 1,000 mg PO BID 07/31/23 Hospital Course Operations None Procedures 2-D Echocardiogram Summary of Care Provided Minutes Spent on Discharge: 55 Hospital Course: Patient is a 63-year-old male with a past medical history as outlined was admitted through the ED on 07/31/2023 with a complaint of right lower extremity weakness. He did have residual left lower extremity weakness from a previous stroke. However he said he had noticed worsening weakness in his right lower extremity and he was unable to fully weight-bear. Review of systems otherwise negative. He was admitted to be managed for right lower extremity weakness to rule out a stroke. CT of the brain showed no acute intracranial pathology. Carotid ultrasound done in lieu of CT of the head and neck with contrast due to him having ESRD showed moderate bilateral carotid stenosis of 50 to 69%. MRI of the brain done showed no evidence of acute CVA. Nephrology was consulted for dialysis. Patient did work with PT and OT as well. He remained stable and was discharged home on 08/02/2023. His blood pressure medications namely amlodipine and metoprolol were resumed. He is to follow-up with his primary care doctor within 1 to 2 weeks. Patient seen and examined prior to discharge. He had no active complaints and had an uneventful night. Review of systems otherwise negative. Labs and vitals reviewed. Home medication reviewed and reconciled. Physical Exam Const alert, oriented x3 and no apparent distress General Appearance: cooperative, comfortable, well kempt and well developed HEENT normocephalic, head/scalp atraumatic, hearing grossly normal bilaterally, moist oral mucous membranes and oropharynx normal Mouth: oral and palatal mucosa normal Eyes PERRL, EOMs intact bilaterally and conjunctivae normal Neck no lymphadenopathy and supple Lymph Lymphatic: no lymphadenopathy noted and no lymphedema noted Resp normal respiratory effort, normal air movement, no retractions, no use of accessory muscles and clear to auscultation bilaterally Cardio regular rate, regular rhythm, S1 normal heart sound, S2 normal heart sound and no murmurs GI normal to inspection, nondistended, normoactive bowel sounds, soft to palpation, non-tender and non-distended Extremity normal to inspection, full ROM, normal capillary refill, no clubbing, cyanosis or edema and no calf tenderness General Extremity: no tenderness to palpation of joints or extremities Skin no rashes or lesions noted Neuro oriented x3, CN's II-XII intact bilaterally, moves all extremities, no focal motor deficits, no sensory deficits noted and deep tendon reflexes 2+ bilaterally Neuro Narrative: Patient has 3 out of 5 strength in his right lower extremity and he has 5 out of 5 strength in all other extremities. Sensorium / Orientation: awake, alert, oriented to person, oriented to place and oriented to time Speech: speech normal Motor Exam: strength 5/5 throughout and general weakness Psych thought process normal, cooperative and affect normal Appearance: appropriate Weight / BMI Weight Weight: 196 lb 3.382 oz Body Mass Index (BMI) 28.0 ABG / Lab / Microbiology Data 07/31/23 17:40 08/01/23 15:06 Laboratory: Laboratory Results - last 24 hr 08/01/23 15:06: Sodium 138, Potassium 5.2 H, Chloride 103, Carbon Dioxide 28.0, Anion Gap 7, BUN 70 H, Creatinine 9.12 H*, Estim Creat Clear Calc 8.56, Est GFR (MDRD) Af Amer 8 L, Est GFR (MDRD) Non-Af 6 L, BUN/Creatinine Ratio 7.7 L, Glucose 152 H, Calcium 7.4 L Microbiology: Microbiology 07/31/23 16:58 Nasal Secretion SARS-CoV-2 & FLU Antigen (Rapid) - Final Radiography Diagnostic Testing: Radiology Impression Carotid Duplex 07/31/23 22:29 Interpretation Summary Moderate (50-69%) stenosis right extracranial internal carotid. Moderate (50-69%) stenosis left extracranial internal carotid. Patent and antegrade vertebrals bilaterally. Ordering Physician: Leonardo Hines Performed By: Raymond Quach, RVT Echocardiogram 07/31/23 22:29 Interpretation Summary The estimated ejection fraction is 60 %. Stage 3 diastolic dysfunction. Mild concentric left ventricular hypertrophy. There is mild biatrial dilatation. Mild-Moderate (1-2+) mitral valve insufficiency. Mild to moderate (1-2+) tricuspid valve insufficiency. Moderate pulmonary hypertension. Ordering Physician: Leonardo Hines Performed By: Ermias Urias, [facility] Brain MRI 08/02/23 08:38 IMPRESSION: 1. No MRI evidence of acute or subacute ischemic infarct or acute intracranial abnormality. 2. Chronic white matter ischemic changes in both cerebral hemispheres. 3. No significant interval change when compared to 03/22/2022. Electronically Signed: Daryn Richter MD at 11:05 EST , D/C Instructions Discharge Diet: Low fat / Low cholesterol Discharge Activity: Return to Normal Activity Weight Bearing Status: Weight bearing as tolerated Call your doctor if you observe: Fever of 101 or Higher, Shortness of breath, Dizziness, Swelling in the ankles, Chest pain and - (worsening RLE weakness) Meaningful Use Info Meaningful Use Diagnoses (Choose all that apply): None applicable Discharge Plan Admission Admit Date/Time: 07/31/23 22:22 Primary Reason for Your Visit: RLE weakness Attending Provider: Delphine Ness Primary Care Provider: Amish Han Consulting Providers: Bob Vinson; Flaco Herrera; Arlene Gaitan; Daily Eason; Lalita Almeida; Spike Hdez; Madeleine Carreon; Mikey Falcon; Jv Lindquist; Irma Schmitz; Rickey Gonzalez; Angeles Mobley; Joshua Reyes; Donald Barnett; Nathaniel Kennedy; Ezequiel Bowman; Pavan Castillo; Louise Canseco; Natasha Mejia; Leonardo Hines; Katherin Sandoval Instructions Patient Instructions: ED Weakness (Uncertain Cause) Discharge Orders/Prescriptions Prescriptions: Continued albuterol sulfate [Ventolin HFA] 90 mcg/actuation HFA aerosol inhaler 2 puff inhalation Q6H PRN (Reason: Wheezing) metoprolol tartrate 25 mg tablet 25 mg PO BID gabapentin 100 mg capsule 100 mg PO TID Qty: 90 3RF Eliquis 5 mg tablet 5 mg PO BID Qty: 60 0RF atorvastatin 10 mg Tablet 20 mg PO QHS amlodipine 10 mg tablet 10 mg PO DAILY Qty: 30 0RF divalproex [Depakote] 500 mg tablet,delayed release (DR/EC) 1,000 mg PO BID brimonidine 0.2 % drops 1 drp ophthalmic (eye) BID Patient Comments: Instill 1 drop in the right eye 2 times a day (DME) Manual wheelchair See Rx Instructions .Route .MEDSUPPLY Qty: 1 0RF Rx Instructions: ICD 10: Polyneuropathy (G62.9); cerebral infarction (I69.30); weakness (R53.1) Referrals / Follow Up: Amish Han MD [Primary Care Provider] - Within 2 Weeks Philip Carrasco MD [Non-Staff -Ordering Privileges] - Within 2 Weeks Arden Morejon MD [Med Staff - Active Staff] - Within 1 Week (see o/a of moderate bilateral carotid stenosis) Disposition Disposition (needs filled in before D/C Order can be placed): Home, Self Care Charges/Coding Visit Charges Inpatient E&M: 97228 Disch Hosp >30min
[2023-08-02] MEDS: Metoprolol Tartrate 25 MG Tablet PO (14:30)
[2023-08-02] MEDS: amLODIPine 10 MG Tablet PO (14:31)
--- NOTE | 2023-08-02 16:00 | CASEMGMT ---
MICHELLE HUANG NOTE: Pt being discharged. PT/OT and ST notes reviewed. MICHELLE CM to room to discuss discharge planning w/pt and , who is in room visiting. Pt states he does not want to go to a SNF, that he wishes to discharge home. He states he has 14 steps to get up to his apt and his son will help him get up and down the steps, stating this is what he has been doing when having to leave the apt to go to OP HD appts @ [facility] 3 days/week. Pt states he had been going to [employer] to work out on his own, but he is now interested in HHC and is agreeable to PT/OT and states is also interested in ST. He states would like a nurse to come also to monitor the wound on his foot. He was made aware SN only comes about once a week. He states his has been doing the dressing changes and that she can continue to do this @ home. He states is interested in [facility] and declines wanting list of other HHC options. Call placed to [facility] and referral made. Per Carole, pt's PCP, Dr Han, typically requires PCP appt before he will follow for HHC orders. She states they have called Dr Han's office to inquire if he will require an appt, but Dr Han is out of the office and will not be returning until . She states [facility] will f/u with pt on re: Dr Han's response and if they are able to accept him. MICHELLE HUANG back to room and informed pt and of this. Pt voices understanding. He states he still wishes to discharge home. He states he has the exercises that ST has provided to him and that he knows other exercises he can do @ home for strengthening. He was provided w/[facility] contact #. He states he plans to call Dr Han's office tomorrow to schedule an appt. He denies having other discharge planning needs or concerns. Kelsi HAGEN RN, CM
--- NOTE | 2023-08-02 16:36 | CASEMGMT ---
Met with patient to complete GUNN form. GUNN form explained to patient who voiced understanding and signed form. Original form placed in pt?s chart and copy provided to?patient. Dione Londono, Discharge Planning Asst
== END 2023-08-02 14:00 | disposition home or self-care (01) ==
LOC: ED 18:03 → PCU 22:00
PROVIDERS: Admitting Provider Internal Medicine; Emergency Provider Emergency Medicine; PCP Family Medicine; Visit Provider Student in an Organized Health Care Education/Training Program
DX: R53.1 Weakness (principal); I13.2 Hypertensive heart and chronic kidney disease with heart failure and with stage 5 chronic kidney disease, or end stage renal disease; E11.51 Type 2 diabetes mellitus with diabetic peripheral angiopathy without gangrene; I69.354 Hemiplegia and hemiparesis following cerebral infarction affecting left non-dominant side; Z99.2 Dependence on renal dialysis; I50.32 Chronic diastolic (congestive) heart failure; E11.22 Type 2 diabetes mellitus with diabetic chronic kidney disease; E11.42 Type 2 diabetes mellitus with diabetic polyneuropathy; N18.6 End stage renal disease; I48.20 Chronic atrial fibrillation, unspecified; G40.909 Epilepsy, unspecified, not intractable, without status epilepticus; Z79.4 Long term (current) use of insulin; Z68.30 Body mass index [BMI] 30.0-30.9, adult; E78.00 Pure hypercholesterolemia, unspecified; R26.2 Difficulty in walking, not elsewhere classified; Z79.01 Long term (current) use of anticoagulants; E66.9 Obesity, unspecified; M54.50 Low back pain, unspecified; M25.551 Pain in right hip; Z79.899 Other long term (current) drug therapy; F17.220 Nicotine dependence, chewing tobacco, uncomplicated; G25.81 Restless legs syndrome; R29.898 Other symptoms and signs involving the musculoskeletal system; I08.1 Rheumatic disorders of both mitral and tricuspid valves; I65.23 Occlusion and stenosis of bilateral carotid arteries
CPT/HCPCS: 36415; 70450; 70551; 71045; 72131; 73502; 80048; 80053; 80061; 80164; 80320; 84439; 84443; 84484; 85025; 87428; 90937; 92526; 92610; 93005; 93306; 93880; 94762; 96374; 97162; 97166; 99221; 99285; J7030; A4216; G0257; G0378; G0480

== ENCOUNTER → 2023-09-15 | Outpatient (CLI) | payer MEDICARE, MEDICAID, SELFPAY ==
--- NOTE | 2023-09-15 12:54 | RAD_ITS ---
EXAM: XR RIGHT FOOT COMPLETE, 3 OR MORE VIEWS CLINICAL INDICATION: pain TECHNIQUE: Frontal, lateral and oblique views of the right foot. COMPARISON: No relevant prior studies available. FINDINGS: BONES/JOINTS: Unremarkable. Preservation of the joint space. No suspicious lytic or sclerotic lesions of bone. No acute or healing fracture or malalignment. SOFT TISSUES: Atherosclerotic calcifications between the proximal aspects of the first and second metatarsal. No soft tissue swelling or gas. No radiopaque foreign body. RAD/Foot min 3 Views IMPRESSION: No acute or healing fracture or malalignment. Electronically Signed: Tra Ward MD at 3:53 EST ,
--- NOTE | 2023-09-15 12:54 | RAD_ITS ---
STUDY: X-RAY - RIGHT ANKLE REASON FOR EXAM: Male, 63 years old. Pain. TECHNIQUE: 3 views of the right ankle. COMPARISON: None. FINDINGS: Normal visualized distal tibia and fibula. Normal medial and lateral malleoli. Normal tibiotalar articulation and ankle mortise. Normal visualized talus and calcaneus. The visualized subtalar, talonavicular, calcaneocuboid and tarsal articulations are normal. There is no demonstrated fracture. There is severe soft tissue swelling around the ankle. There are atherosclerotic calcifications. RAD/Ankle min 3 Views IMPRESSION: Severe soft tissue swelling around the ankle. No demonstrated fracture. Electronically Signed: Gilberto Canseco MD at 9:00 EST ,
== END | disposition home or self-care (01) ==
LOC: MTLAB 12:54 → MTRAD 13:09
PROVIDERS: PCP Family Medicine; Referring Provider Family Medicine; Visit Provider Family Medicine
DX: M25.571 Pain in right ankle and joints of right foot (principal)
CPT/HCPCS: 73610; 73630

== ENCOUNTER 2023-10-30 00:58 | Inpatient (IN) | payer MEDICARE, MEDICAID, SELFPAY ==
[2023-10-30] VITALS (22 sets, daily range): BP systolic 106–193; BP diastolic 41–109; PULSE 77–110; RESP 14–29; TEMP 36.6–39.6; O2SAT 92–100; BMI 30.2; BMI 35.4
--- NOTE | 2023-10-30 01:14 | EKG12_ITS ---
Test Reason : SOB Blood Pressure : / mmHG Vent. Rate : 108 BPM Atrial Rate : 108 BPM P-R Int : 148 ms QRS Dur : 084 ms QT Int : 340 ms P-R-T Axes : 065 -20 044 degrees QTc Int : 455 ms Sinus tachycardia Nonspecific ST abnormality Abnormal ECG Confirmed by Harjit Delgadillo ([id number]), school photograph editor STEFANIE REYEZ ([id number]) on 11/01/2023 9:07:11 AM Referred By: CASSIUS Confirmed By:Harjit Delgadillo
--- NOTE | 2023-10-30 01:19 | EDS_ITS ---
HPI History of Present Illness Chief Complaint: Shortness of Breath Detail of Chief Complaint: Cough and shortness of breath Informant: patient Narrative Narrative: Patient presents via EMS. He states his family insisted he come because of shortness of breath. He reports cough over the past couple days and missed his dialysis on Tuesday. He normally runs on Tuesday, Tuesday, and Tuesday. He does still make urine. He had not noted a fever at home, but has a temperature here of 101.5. [facility] Medical History Acute and chronic respiratory failure with hypoxia Ambulates with cane Arthritis Back pain Cardiology follow-up encounter CHF (congestive heart failure) Chronic kidney disease, stage 4 (severe) Dietary restriction End stage renal disease Epilepsy ESRD (end stage renal disease) on dialysis Former smoker Heartburn High cholesterol History of atrial fibrillation History of echocardiogram History of pain when walking History of renal dialysis History of renal disease History of right MCA stroke History of stress test HTN (hypertension) Injury of head and neck Insulin dependent diabetes mellitus Migraine headache Peripheral neuropathy Polyneuropathy Restless legs Right leg weakness Seizures Stroke Syncope TIA (transient ischemic attack) Weakness Wears glasses Wears partial dentures Home Medications apixaban 5 mg tablet (Eliquis) 5 mg PO BID #60 tabs 03/24/22 [Rx Last Taken 09/16/22] atorvastatin 10 mg tablet 20 mg PO QHS 05/20/22 [History Last Taken Unknown] albuterol sulfate 90 mcg/actuation aerosol inhaler (Ventolin HFA) 2 puff inhalation Q6H PRN Wheezing 08/24/22 [History Last Taken Unknown] metoprolol tartrate 25 mg tablet 25 mg PO DAILY 08/24/22 [History Last Taken Unknown] amlodipine 10 mg tablet 10 mg PO DAILY #30 tabs 09/15/22 [Rx Last Taken 09/17/22] Manual wheelchair #1 ea 03/24/23 [Rx Last Taken Unknown] gabapentin 100 mg capsule 100 mg PO TID #90 caps 04/20/23 [Rx Last Taken Unknown] brimonidine 0.2 % eye drops 1 drp ophthalmic (eye) BID 05/11/23 [History Last Taken Unknown] divalproex 500 mg tablet,delayed release (Depakote) 1,000 mg PO BID 07/31/23 [History Last Taken Unknown] latanoprost 0.005 % eye drops 1 drp RIGHT EYE BID 10/30/23 [History Last Taken Unknown] Allergy/AdvReac Type Severity Reaction Status Date / Time lisinopril AdvReac Severe Other Verified 07/31/23 16:32 oxycodone AdvReac Severe Other Verified 07/31/23 16:32 hydrocodone bitartrate AdvReac Mild HYPER Verified 07/31/23 16:32 [From Vicodin] Family History Father Cancer Prostate Heart disease Mother Heart disease Diabetes Other COPD (chronic obstructive pulmonary disease) Surgical History History of rotator cuff surgery History of umbilical hernia repair Hx of arteriovenostomy for renal dialysis Hx of left cataract extraction Hx of right cataract extraction S/P arteriovenous (AV) fistula creation Status post foot surgery Social History household members: spouse and children number of children: 3 current occupational status: disabled Smoking Status: Never smoker Smokeless tobacco user: snuff second hand exposure: No alcohol intake: never substance use type: does not use what type of physical activity do you participate in: other details: health point frequency: 3-4 times per week alba/latter-day: Other seatbelt use: always ROS ROS ED Constitutional Constitutional ED: Reports fever(s); Denies chills Eyes Eyes: Denies change in vision or discharge from eye(s) ENT ENT ED: Denies discharge from eye(s), rhinorrhea or sore throat Cardiovascular Cardiovascular: Denies chest pain or palpitations Respiratory/Chest Respiratory/Chest: Reports cough and dyspnea Gastrointestinal Gastrointestinal: Denies abdominal pain, nausea or vomiting Genitourinary Genitourinary ED: Denies dysuria Musculoskeletal Musculoskeletal: Denies back pain or extremity pain Integumentary Denies Abrasions or rash Neurologic Neurologic: Reports weakness; Denies headache(s) Allergic/Immunologic Allergic/Immunologic ED: Denies lip swelling or urticaria EXAM Physical Exam Const Vital Signs: 10/30/23 00:59 10/30/23 01:11 10/30/23 01:14 Temperature 101.5 F H Temperature Source Oral Pulse Rate 108 H Respiratory Rate 26 H Respiratory Effort Non-Labored Respiratory Depth Normal Respiratory Pattern Tachypnea Blood Pressure 189/96 H Blood Pressure Mean 127 Pulse Ox 96 95 Oxygen Delivery Method Nasal Cannula Nasal Cannula Nasal Cannula Oxygen Flow Rate (L/min) 4 5 Fraction of Inspired Oxygen (FIO2) 4 10/30/23 01:47 10/30/23 02:07 Temperature 100.1 F H 101.7 F H Temperature Source Oral Oral Pulse Rate 110 H 105 H Respiratory Rate 27 H 22 H Respiratory Effort Respiratory Depth Respiratory Pattern Blood Pressure 193/109 H 184/98 H Blood Pressure Mean 137 126 Pulse Ox 97 99 Oxygen Delivery Method Nasal Cannula Nasal Cannula Oxygen Flow Rate (L/min) 5 4 Fraction of Inspired Oxygen (FIO2) Positive well nourished and well developed General Appearance ED: well developed HEENT Reports moist mucous membranes Eyes EOMs intact bilaterally Chest Wall Chest Narrative: Dialysis catheter is in place in the chest. Resp normal respiratory effort Resp Narrative: Diminished breath sounds bilateral bases. Cardio Rate: tachycardic GI non-tender Palpation: soft Extremity Extremity Narrative: 2+ left lower extremity edema. Neuro oriented x3 Psych mental status grossly normal Skin no rashes or lesions noted MDM MDM MDM Narrative Medical decision making narrative: Patient placed on director of cardiac cath lab. He is hypoxic at 77% on room air. He is on 4 L nasal cannula time of my exam and satting in the high 90s. Patient given Tylenol for fever. IV line initiated. Cultures drawn. Labwork obtained to evaluate for leukocytosis, anemia, and electrolyte derangement. Urinalysis obtained to evaluate for infection/hematuria. Swab for COVID, influenza, and RSV will be obtained. Chest x-ray obtained to evaluate for acute lung pathology, cardiac size, or mediastinal abnormality. EKG obtained to evaluate for cardiac arrhythmia/ischemia. History & Record Review Discussion w/independent historian: Patient Additional record(s) reviewed:: Prior inpatient record, Prior ED visit and Prior labs Lab Data Attestation: I reviewed the patient's lab results. Labs: Laboratory Results - last 24 hr 10/30/23 10/30/23 01:20 01:40 WBC 5.2 RBC 2.89 L Hgb 9.0 L Hct 27.8 L MCV 96.2 H MCH 31.1 MCHC 32.4 RDW Std Deviation 51.0 H RDW Coeff of Silvia 14.9 H Plt Count 143 L MPV 9.6 Immature Gran % (Auto) 1.000 H Neut % (Auto) 76.6 H Lymph % (Auto) 8.8 L [place] % (Auto) 11.5 H Eos % (Auto) 1.5 Baso % (Auto) 0.6 Absolute Neuts (auto) 4.0 Absolute Lymphs (auto) 0.46 L Nucleated RBC % 0 PT 14.3 INR 1.1 APTT 33.1 Sodium 139 Potassium 5.1 Chloride 103 Carbon Dioxide 25.0 Anion Gap 11 BUN 75 H Creatinine 10.50 H* Estim Creat Clear Calc 8.35 Est GFR (MDRD) Af Amer 6 L Est GFR (MDRD) Non-Af 5 L BUN/Creatinine Ratio 7.1 L Glucose 125 H Lactic Acid 0.8 Calcium 8.0 L Total Bilirubin 0.50 AST 21 ALT 18 Alkaline Phosphatase 50 Total Protein 6.9 Albumin 3.1 L Globulin 3.8 Albumin/Globulin Ratio 0.8 L Urine Color Yellow Urine Clarity Clear Urine pH 7.0 Ur Specific Patrick 1.015 Urine Protein 500 H Urine Glucose (UA) 100 H Urine Ketones 5 H Urine Occult Blood 150 H Urine Nitrite Negative Urine Bilirubin Negative Urine Urobilinogen Normal Ur Leukocyte Esterase Negative Urine RBC 10-25 SEEN Urine WBC 0-5 SEEN Ur Squamous Epith Cells 0 SEEN Urine Bacteria 0 SEEN Urine Mucus 0 SEEN Radiography Chest X-Ray - ED: 1 View, Read by ED Physician and CHF Diagnostic Testing: Clinical Impression(s) from Imaging Studies Chest X-Ray 10/30/23 01:25 IMPRESSION: 1. Left basilar airspace disease suggesting pneumonia. 2. Cardiomegaly and mild pulmonary vascular congestion. Electronically Signed: Ilene Ruff MD at 2:44 EDT , EKG Initial EKG: Attestation: I personally reviewed and interpreted this EKG as follows: Interpretation: Sinus Tachycardia (Sinus tachycardia at 108. No acute ischemia.) Treatment and Re-Evaluation :: CBC was normal white count 5.2 with a hemoglobin of 9.0. 76% neutrophils noted. Chemistry studies reveal normal normal potassium at 5.1. His creatinine is 10.5 but he did miss dialysis. Lactic acid is normal at 0.8. Coags are unremarkable. Urinalysis reveals no evidence of infection. Portable chest x-r ay per my interpretation reveals evidence of CHF. Radiology interpretation is reviewed. They feel he does have fluid overload in addition to a left lower lobe infiltrate. EKG is sinus tach at 108. On repeat evaluation patient lying nearly flat in bed and appears to be in no distress. His heart rate is now in the 90s. Patient is given Rocephin and Zithromax for pneumonia as well as a dose of Lasix for his fluid overload. Hospitalist was contacted for admission. Discharge Plan Triage Chief Complaint: Shortness of Breath ED Provider: Caity Leonard Dx/Rx/DC Orders Clinical Impression: Hypoxia, Pulmonary vascular congestion, Pneumonia Prescriptions: No Action albuterol sulfate [Ventolin HFA] 90 mcg/actuation HFA aerosol inhaler 2 puff inhalation Q6H PRN (Reason: Wheezing) metoprolol tartrate 25 mg tablet 25 mg PO DAILY gabapentin 100 mg capsule 100 mg PO TID Qty: 90 3RF Eliquis 5 mg tablet 5 mg PO BID Qty: 60 0RF atorvastatin 10 mg Tablet 20 mg PO QHS amlodipine 10 mg tablet 10 mg PO DAILY Qty: 30 0RF divalproex [Depakote] 500 mg tablet,delayed release (DR/EC) 1,000 mg PO BID brimonidine 0.2 % drops 1 drp ophthalmic (eye) BID Patient Comments: Instill 1 drop in the right eye 2 times a day latanoprost 0.005 % drops 1 drp RIGHT EYE BID (DME) Manual wheelchair See Rx Instructions .Route .MEDSUPPLY Qty: 1 0RF Rx Instructions: ICD 10: Polyneuropathy (G62.9); cerebral infarction (I69.30); weakness (R53.1) Primary Care Provider: Amish Han Referrals: Amish Han MD [Primary Care Provider] - Disposition Disposition: Acute Care Hospital [facility]
--- NOTE | 2023-10-30 01:25 | RAD_ITS ---
STUDY: X-RAY CHEST REASON FOR EXAM: Male, 63 years old patient with fever and cough. TECHNIQUE: Single AP portable view of the chest. COMPARISON: July 31, 2023. FINDINGS: Cardiac monitoring leads are present. Right-sided tunnel catheter is present the tip of the catheter the right atrium. Lungs are underexpanded with crowding of the bronchovascular markings and obscuration of the lung bases. There appears to be heterogeneous groundglass attenuation within the right lung as well as the left upper lobe. There is heterogeneous left basilar airspace consolidation suggesting pneumonia. There is no demonstrated pleural abnormality. There is mild cardiac enlargement. Normal mediastinum and kayla. There is prominence of the pulmonary hilar arteries with peripheral pulmonary vascular congestion. Normal visualized aortic arch and descending thoracic aorta. Normal visualized thoracic spine. Normal visualized ribs, clavicles, and shoulders. There is no demonstrated abnormality of the visualized soft tissue structures of the upper abdomen. RAD/Chest 1 View (Portable) IMPRESSION: 1. Left basilar airspace disease suggesting pneumonia. 2. Cardiomegaly and mild pulmonary vascular congestion. Electronically Signed: Ilene Ruff MD at 2:44 EDT ,
[2023-10-30] MEDS: Acetaminophen 500 MG Tablet 1000 MG PO (01:31)
[2023-10-30 01:35] LABS: Absolute Lymphocyte Count 0.46 X10^3/uL (0.83-4.51); Basophil# 0.03 X10^3/uL; Basophil% 0.6 % (0-1); Eosinophil# 0.08 X10^3/uL; Eosinophils% 1.5 % (0-5); Hematocrit 27.8 % (40-54); Lymphocyte # 0.46 X10^3/ul (0.83-4.51); Lymphocyte % 8.8 % (19-41); Mean Corp Hgb Conc 32.4 g/dL (32-36); Mean Corpuscular Hgb 31.1 pg (27.0-32.0); Mean Corpuscular Volume 96.2 fL (80-94); Mean Platelet Vol. 9.6 fl (6.2-12.0); Monocyte% 11.5 % (0-10); NRBC Flagged by Analyzer 0 % (0-5); Neutrophil % 76.6 % (47-70); POSITIVE DIFFERENTIAL YES; Platelet Count 143 K/mm3 (150-450); RBC Distribution Width CV 14.9 % (11.6-14.6); Red Blood Count 2.89 M/mm3 (4.6-6.2); White Blood Count 5.2 K/mm3 (4.4-11.0)
[2023-10-30 01:44] LABS: International Normalized Ratio 1.1; Prothrombin Time (Protime)PT. 14.3 SECONDS (11.7-14.9)
[2023-10-30 01:45] LABS: Partial Thromboplast Time 33.1 Seconds (24.1-36.2)
[2023-10-30 02:02] LABS: Lactic Acid 0.8 mmol/L (0.4-1.9)
[2023-10-30 02:08] LABS: ALB/GLOB Ratio 0.8 RATIO (0.9-2.4); AST(SGOT) 21 U/L (15-37); Alanine Aminotransfer ALT/SGPT 18 U/L (16-61); Albumin, Serum 3.1 g/dL (3.2-5.0); Alkaline Phosphatase 50 U/L (45-117); Anion Gap 11 (5-15); BUN 75 mg/dL (7-18); BUN/Creat Ratio 7.1 RATIO (10-20); Chloride 103 mmol/L (98-107); EST Glomerular Filtration Rate 5 mL/min (>60); Est Glom Filt Rate - Afr Amer 6 mL/min (>60); Estimated Creatinine Clearance 8.35 ml/min; Globulin 3.8 g/dL (2.2-4.2); Glucose 125 mg/dL (74-106); Potassium 5.1 mmol/L (3.5-5.1); Protein, Total 6.9 g/dL (6.4-8.2); Sodium Level 139 mmol/L (136-145)
[2023-10-30 02:09] LABS: Bacteria 0 SEEN /hpf (None Seen); Mucous, Urine 0 SEEN /hpf (<or=2+); Squamous Epithelial Cells - UA 0 SEEN /hpf (0-5)
[2023-10-30 02:16] LABS: Glucose, Dipstick 100 mg/dl (Normal); Ketone-Dipstick 5 mg/dl (Negative); Leukocyte Esterase-Dipstick Negative /ul (Negative); Nitrite-Dipstick Negative (Negative); Occult Blood-Urine 150 /ul (Negative); Protein-Dipstick 500 mg/dl (Negative); Specific Gravity, Urine 1.015 (1.002-1.030); Urine Bilirubin Dipstick Negative (Negative); Urine Urobilinogen Normal (Normal)
[2023-10-30 02:25] LABS: Color, Urine Yellow (Yellow); Urine Clarity Clear (Clear)
[2023-10-30 02:30] LABS: Red Blood Cells-Urine 10-25 SEEN /hpf (0-5); White Blood Cells 0-5 SEEN /hpf (0-5)
--- NOTE | 2023-10-30 03:05 | HP.PCM.HOS_ITS ---
HPI - General General Date of Admission: 10/30/23 Date of Service: 10/30/23 Chief Complaint: Dyspnea, cough, congestion, fever, chills. HPI Narrative The patient is a 63 y/o M w/ PMHx: ESRD on HD MWF, Chronic AF on Eliquis, HFpEF, HTN, HLD, Hx CVA w/ L sided hemiparesis, Obesity, Seizure disorder, RLS, Chronic migraines, Chronic back pain, Diabetes mellitus type II with chronic neuropathy, Former cigarette tobacco use-->Smokeless tobacco use, Chronic anemia/AOCD who presents to the [facility] ED on 10/30/23 with history of significant dyspnea ongoing since the day prior with fever, chills, mildly productive cough, congestion as well as episodes of nausea with emesis with last dialysis Tuesday, unfortunately missed his last dialysis session on Tuesday prompting eventual EMS call noted to be 77% on room air with improvement to 95% on 4 L nasal cannula prompting transition to the ED for evaluation. He reports that his started to become ill just before him although she has since improved. Workup in the ED included T101.5, heart rate 108, BP 189/96, respiratory rate 26, 96% on 4 L nasal cannula--> 97% on 5 L nasal cannula, CBC with WBC 5.2, hemoglobin 9.0, MCV 96.2, platelet 143 with increased immature granulocytes and lymph openia, unremarkable coags, CMP with BUN/creatinine 75/10.50, glucose 125, lactic acid 0.8 otherwise hepatic profile not marked appearing, chest x-ray with cardiomegaly with pulmonary vascular congestion and left basilar airspace disease suggestive of pneumonia, blood culture pending per ED, rapid SARS COVID/influenza/PCR pending upon evaluation, urinalysis with positive gravity 1.015, protein 500, glucose 100, ketone 5, occult blood 150, negative nitrite, negative leukocyte esterase with no obvious evidence of UTI, urine culture pending per ED. In the ED patient administered Lasix 40 mg IV x 1, azithromycin 5 mg IV x 1, Rocephin 1 g IV x 1. [facility] Medical History Acute and chronic respiratory failure with hypoxia Ambulates with cane Arthritis Back pain Cardiology follow-up encounter CHF (congestive heart failure) Chronic kidney disease, stage 4 (severe) Dietary restriction End stage renal disease Epilepsy ESRD (end stage renal disease) on dialysis Former smoker Heartburn High cholesterol History of atrial fibrillation History of echocardiogram History of pain when walking History of renal dialysis History of renal disease History of right MCA stroke History of stress test HTN (hypertension) Injury of head and neck Insulin dependent diabetes mellitus Migraine headache Peripheral neuropathy Polyneuropathy Restless legs Right leg weakness Seizures Stroke Syncope TIA (transient ischemic attack) Weakness Wears glasses Wears partial dentures Home Medications apixaban 5 mg tablet (Eliquis) 5 mg PO BID #60 tabs 03/24/22 [Rx Last Taken 09/16/22] atorvastatin 10 mg tablet 20 mg PO QHS 05/20/22 [History Last Taken Unknown] albuterol sulfate 90 mcg/actuation aerosol inhaler (Ventolin HFA) 2 puff inhalation Q6H PRN Wheezing 08/24/22 [History Last Taken Unknown] metoprolol tartrate 25 mg tablet 25 mg PO DAILY 08/24/22 [History Last Taken Unknown] amlodipine 10 mg tablet 10 mg PO DAILY #30 tabs 09/15/22 [Rx Last Taken 09/08 ] Manual wheelchair #1 ea 03/24/23 [Rx Last Taken Unknown] gabapentin 100 mg capsule 100 mg PO TID #90 caps 04/20/23 [Rx Last Taken Unknown] brimonidine 0.2 % eye drops 1 drp ophthalmic (eye) BID 05/11/23 [History Last Taken Unknown] divalproex 500 mg tablet,delayed release (Depakote) 1,000 mg PO BID 07/31/23 [History Last Taken Unknown] latanoprost 0.005 % eye drops 1 drp RIGHT EYE BID 10/30/23 [History Last Taken Unknown] Allergy/AdvReac Type Severity Reaction Status Date / Time lisinopril AdvReac Severe Other Verified 07/31/23 16:32 oxycodone AdvReac Severe Other Verified 07/31/23 16:32 hydrocodone bitartrate AdvReac Mild HYPER Verified 07/31/23 16:32 [From Vicodin] Family History Father Cancer Prostate Heart disease Mother Heart disease Diabetes Other COPD (chronic obstructive pulmonary disease) Surgical History History of rotator cuff surgery History of umbilical hernia repair Hx of arteriovenostomy for renal dialysis Hx of left cataract extraction Hx of right cataract extraction S/P arteriovenous (AV) fistula creation Status post foot surgery Social History household members: spouse and children number of children: 3 current occupational status: disabled Smoking Status: Never smoker Smokeless tobacco user: snuff second hand exposure: No alcohol intake: never substance use type: does not use what type of physical activity do you participate in: other details: health point frequency: 3-4 times per week alba/nondenominational: Other seatbelt use: always ROS ROS Narrative Admission Review of Systems: CONSTITUTIONAL: No weight loss, + fever, chills, weakness or fatigue. HEENT: + Congestion, rhinorrhea. Eyes: No visual loss, blurred vision, double vision or yellow sclerae. Ears, Nose, Throat: No hearing loss, sneezing. SKIN: No rash or itching, lesions, wounds. CARDIOVASCULAR: + Chronic unchanged andrew, mild orthopnea. No chest pain, chest pressure or chest discomfort, palpitations, orthopnea, syncopal events. RESPIRATORY: + Shortness of breath, cough with mild sputum. No wheezing, hemoptysis. GASTROINTESTINAL: + anorexia, nausea with occasional vomiting. No diarrhea, melena, BRBPR. GENITOURINARY: No dysuria, frequency, urgency or retention. NEUROLOGICAL: + Seizure disorder. No headache, dizziness, syncope, paralysis, ataxia, numbness or tingling in the extremities, focal weakness, change in bowel or bladder control. MUSCULOSKELETAL: + muscle, back pain, joint pain or stiffness. HEMATOLOGIC: + anemia, easy bleeding or bruising. LYMPHATICS: No enlarged nodes. No history of splenectomy. PSYCHIATRIC: + History of anxiety and depression. ENDOCRINOLOGIC: No reports of sweating, cold or heat intolerance. No polyuria or polydipsia. ALLERGIES: No history of asthma, hives, eczema or rhinitis. Vital Signs Vital Signs Vital Signs: 10/30/23 00:59 10/30/23 01:11 10/30/23 01:14 Temperature 101.5 F H Temperature Source Oral Pulse Rate 108 H Respiratory Rate 26 H Respiratory Effort Non-Labored Respiratory Depth Normal Respiratory Pattern Tachypnea Blood Pressure 189/96 H Blood Pressure Mean 127 Pulse Ox 96 95 Oxygen Delivery Method Nasal Cannula Nasal Cannula Nasal Cannula Oxygen Flow Rate (L/min) 4 5 Fraction of Inspired Oxygen (FIO2) 4 10/30/23 01:47 10/30/23 02:07 Temperature 100.1 F H 101.7 F H Temperature Source Oral Oral Pulse Rate 110 H 105 H Respiratory Rate 27 H 22 H Respiratory Effort Respiratory Depth Respiratory Pattern Blood Pressure 193/109 H 184/98 H Blood Pressure Mean 137 126 Pulse Ox 97 99 Oxygen Delivery Method Nasal Cannula Nasal Cannula Oxygen Flow Rate (L/min) 5 4 Fraction of Inspired Oxygen (FIO2) Weight Weight: 210 lb 5.136 oz Body Mass Index (BMI) 30.2 Physical Exam Narrative Physical Examination: General: Awake, alert, oriented x 3, seated upright in the ED bed, fatigued and ill-appearing. Skin: Normal color, normal turgor, no icterus, no cyanosis except for mild bilateral lower extremity chronic venous stasis skin changes. HEENT: AT/NC, EOMI, PERRLA, dry MM, no carotid bruits or JVD noted. Lungs: Diminished, greater bases, left greater than right, mildly increased respiratory rate but no distress, mild distant rales, no wheezing or rhonchi, no evidence of respiratory distress but mildly increased respiratory rate. Heart: Tachycardic with regular rhythm; no gallop, rub audible, HD chest access right chest in place. Abdomen: Soft, NTTP, ND, mildly hyperactive bowel sounds, no appreciated HSM. Extremities: No cyanosis, no clubbing, bilateral lower extremity chronically reported edema. Neurological: Patient awake, alert, oriented as noted, cognitive function appears baseline intact; pupils equally reactive to light and accommodation, cranial nerves grossly normal, moving all 4 extremities, chronic left-sided hemiplegia status post previous CVA, strength severely globally decreased secondary to acute presentation compounded by underlying comorbidities. Psychiatric: Affect appears fatigued, ill-appearing, no acute evidence of depressive or anxiety feelings but does have underlying history. Results Lab / Micro Data 10/30/23 01:20 10/30/23 01:20 Labs: Laboratory Results - last 24 hr 10/30/23 01:20: WBC 5.2, RBC 2.89 L, Hgb 9.0 L, Hct 27.8 L, MCV 96.2 H, MCH 31.1, MCHC 32.4, RDW Std Deviation 51.0 H, RDW Coeff of Silvia 14.9 H, Plt Count 143 L, MPV 9.6, Immature Gran % (Auto) 1.000 H, Neut % (Auto) 76.6 H, Lymph % (Auto) 8.8 L, [place] % (Auto) 11.5 H, Eos % (Auto) 1.5, Baso % (Auto) 0.6, Abso lute Neuts (auto) 4.0, Absolute Lymphs (auto) 0.46 L, Nucleated RBC % 0, PT 1 4.3, INR 1.1, APTT 33.1, Sodium 139, Potassium 5.1, Chloride 103, Carbon Dioxide 25.0, Anion Gap 11, BUN 75 H, Creatinine 10.50 H*, Estim Creat Clear Calc 8.35, Est GFR (MDRD) Af Amer 6 L, Est GFR (MDRD) Non-Af 5 L, BUN/Creatinine Ratio 7.1 L, Glucose 125 H, Lactic Acid 0.8, Calcium 8.0 L, Total Bilirubin 0.50, AST 21, ALT 18, Alkaline Phosphatase 50, Total Protein 6.9, Albumin 3.1 L, Globulin 3.8, Albumin/Globulin Ratio 0.8 L 10/30/23 01:40: Urine Color Yellow, Urine Clarity Clear, Urine pH 7.0, Ur Specific [place] 1.015, Urine Protein 500 H, Urine Glucose (UA) 100 H, Urine Ketones 5 H, Urine Occult Blood 150 H, Urine Nitrite Negative, Urine Bilirubin Negative, Urine Urobilinogen Normal, Ur Leukocyte Esterase Negative, Urine RBC 10-25 SEEN, Urine WBC 0-5 SEEN, Ur Squamous Epith Cells 0 SEEN, Urine Bacteria 0 SEEN, Urine Mucus 0 SEEN Imaging Radiology Impression Chest X-Ray 10/30/23 01:25 IMPRESSION: 1. Left basilar airspace disease suggesting pneumonia. 2. Cardiomegaly and mild pulmonary vascular congestion. Electronically Signed: Ilene Ruff MD at 2:44 EDT Reading Location ID and State: [facility] , Service support , Assessment & Plan Assessment/Plan (1) CHF exacerbation: PLAN: Plan The patient is a 63 y/o M w/ PMHx: ESRD on HD MWF, Chronic AF on Eliquis, HFpEF, HTN, HLD, Hx CVA w/ L sided hemiparesis, Obesity, Seizure disorder, RLS, Chronic migraines, Chronic back pain, Diabetes mellitus type II with chronic neuropathy, Former cigarette tobacco use-->Smokeless tobacco use, Chronic anemia/AOCD who presents to the [facility] ED on 10/30/23 with history of significant dyspnea ongoing since the day prior with last dialysis Tuesday, unfortunately missed his last dialysis session on Tuesday prompting eventual EMS call noted to be 77% on room air with improvement to 95% on 4 L nasal cannula prompting transition to the ED for evaluation. #1. Acute hypoxia on Chronic Hypoxic Respiratory Failure secondary to Volume overload/Acute HFpEF Exacerbation given missed dialysis with Suspected Recent Acute Viral Syndrome and now Superimposed suspected left lower lobe possible pneumonia complicated by #2: Will admit to PCU, will maintain on telemetry monitoring, will maintain on oxygen with wean as tolerated to room air, ATC budesonide, PRN albuterol, maintain on IV azithromycin and IV Rocephin with MRSA screen, HOB, IS parameters w/ pending sputum cultures, full respiratory viral panel and urine antigens, will additionally obtain procalcitonin and if patient presentation more consistent with overload then we will de-escalate off antibiotic therapy, given patient still makes urine will pulse dose with IV Lasix with consultation as noted with nephrology for plan dialysis given missed dialysis contributing, continue patient on Eliquis, statin, metoprolol. Magnesium level as well as phosphorus level requested, TSH requested. #2. Chronic COPD w/ Chronic Hypoxic Respiratory Failure: Given presentation we will continue supplemental oxygen with wean as tolerated to home level, ATC budesonide therapy, encourage head of bed and I-S. #3. ESRD: Patient with ongoing dialysis Tuesday, following with Dr. Sandoval, per report patient missed dialysis Tuesday, will continue nephrology consultation for ongoing HD. Patient of note still makes urine. #4. Diabetes mellitus type II with chronic neuropathy: Clarifying diabetic regimen, but currently does not appear to be on any regimen, will obtain hemoglobin A1c, in the interim will maintain on ADA diet, accu checks w/ ISS, continue patient home chronic gabapentin regimen. #5. Chronic anemia/normocytic/AOCD: Admission hemoglobin 9.0, MCV 96.2, baseline hemoglobin more recently 10-, continue to trend. #6. PAF/flutter: We will continue patient home metoprolol and Eliquis regimen. #7. History CVA: Will continue patient home patient with history of right-sided MCA stroke with left sided hemiparesis, will continue patient home apixaban, statin, hypertensive regimen as noted as well as diabetic regimen with adjustments as noted. #8. Hypertension: Will continue patient home metoprolol, amlodipine home regimen PRN hydralazine. #9. Hyperlipidemia: Will continue patient's statin therapy. #10. History cigarette tobacco now using snuff: Encourage snuff tobacco cessation. #11. Seizure disorder: We will continue patient home Depakote, had previously been on Vimpat but no longer on this regimen. #12. Anxiety and depression: We will continue patient home duloxetine regimen. #13. Restless leg syndrome: Not on any specific medication per current list, clarifying. #14. GERD: We will continue as needed Mylanta. #15. DVT prophylaxis: Continue home eliquis regimen. #16 CODE status: Patient ANGELLA is his who is present and living will is currently in place. Discussed CODE status at length including difference between FULL code, DNR-CCA and DNR-CC status. Following discussions about the differences in these status, requested Full Code status. Advanced Care Planning Face to Face Time: 16 minutes. Charges/Coding Visit Charges Inpatient E&M: 07259 Init Hosp L3 Procedures Hospitalists Procedures: 69751 Advncd Care Plan 30 Min
[2023-10-30] MEDS: Furosemide 40 MG/4 ML Vial IV ×3 (03:24→17:27)
[2023-10-30] MEDS: Ceftriaxone 2 GM in 0.9% Normal Saline (50mL MB+) 50 ML IV (03:24)
[2023-10-30 03:45] LABS: Magnesium 2.2 mg/dL (1.6-2.6)
[2023-10-30] MEDS: Azithromycin 500 MG in Dextrose 5%-Water (250mL Bag) 250 ML 250 MG IV ×2 (04:06→21:02)
[2023-10-30 05:46] LABS: Procalcitonin 0.42 ng/mL (0.00-0.09)
[2023-10-30 06:01] LABS: ALB/GLOB Ratio 0.8 RATIO (0.9-2.4); AST(SGOT) 20 U/L (15-37); Alanine Aminotransfer ALT/SGPT 15 U/L (16-61); Albumin, Serum 2.8 g/dL (3.2-5.0); Alkaline Phosphatase 45 U/L (45-117); Anion Gap 11 (5-15); BUN 74 mg/dL (7-18); Calcium,Total 7.5 mg/dL (8.5-10.1); Chloride 103 mmol/L (98-107); EST Glomerular Filtration Rate 5 mL/min (>60); Est Glom Filt Rate - Afr Amer 6 mL/min (>60); Estimated Creatinine Clearance 8.94 ml/min; Globulin 3.6 g/dL (2.2-4.2); Glucose 155 mg/dL (74-106); Potassium 4.6 mmol/L (3.5-5.1); Protein, Total 6.4 g/dL (6.4-8.2); Sodium Level 138 mmol/L (136-145); Thyroid Stim Hormone (TSH) 1.21 uIU/mL (0.358-3.74); Troponin-I HS 54 pg/mL (3.0-78.0)
[2023-10-30] MEDS: Acetaminophen 325 MG Tablet 650 MG PO ×3 (06:29→20:57)
[2023-10-30] MEDS: Gabapentin 100 MG Capsule PO ×3 (06:34→20:51)
[2023-10-30 06:53] LABS: Bedside Glucose 128 mg/dL (74-106)
[2023-10-30 07:30] LABS: Absolute Lymphocyte Count 0.49 X10^3/uL (0.83-4.51); Absolute Neutrophil Count 3.7 X10^3/uL (2.0-7.7); Basophil# 0.03 X10^3/uL; Basophil% 0.6 % (0-1); Eosinophil# 0.05 X10^3/uL; Hematocrit 25.5 % (40-54); Hemoglobin 7.9 g/dL (13.0-16.5); Lymphocyte # 0.49 X10^3/ul (0.83-4.51); Lymphocyte % 10.1 % (19-41); Mean Corpuscular Hgb 30.5 pg (27.0-32.0); Mean Corpuscular Volume 98.5 fL (80-94); Mean Platelet Vol. 10.2 fl (6.2-12.0); Monocyte# 0.53 X10^3/uL; NRBC Flagged by Analyzer 0.4 % (0-5); Neutrophil # 3.69 X10^3/uL (2.7-7.7); Neutrophil % 76.3 % (47-70); POSITIVE DIFFERENTIAL YES; Platelet Count 132 K/mm3 (150-450); RBC Distribution Width CV 14.9 % (11.6-14.6); RBC Distribution Width SD 52.1 fl (35.1-43.9); Red Blood Count 2.59 M/mm3 (4.6-6.2); White Blood Count 4.8 K/mm3 (4.4-11.0)
[2023-10-30] MEDS: Budesonide Respules 0.5 MG/2 ML AMPUL.NEB. INHALATION ×2 (08:06→22:48)
[2023-10-30 08:20] LABS: Troponin-I HS 62 pg/mL (3.0-78.0)
[2023-10-30] MEDS: amLODIPine 10 MG Tablet PO (09:35)
[2023-10-30] MEDS: APIXABAN 5 MG TABLET PO ×2 (09:35→20:52)
[2023-10-30] MEDS: Divalproex Sodium 250 MG Tablet 1000 MG PO ×2 (09:36→20:52)
[2023-10-30] MEDS: 0.9% Saline Lock 10 ML Syringe IV ×2 (09:36→23:02)
[2023-10-30] MEDS: Latanoprost 0.005% 1 Bottle 1 DRP RIGHT EYE (09:36)
[2023-10-30] MEDS: BRIMONIDINE 0.2% 5ML BOTTLE 1 DRP OPHTHALMIC (09:36)
[2023-10-30] MEDS: Metoprolol Tartrate 25 MG Tablet PO (09:36)
--- NOTE | 2023-10-30 10:00 | NURSING ---
Gave report to Una Ayala RN
[2023-10-30 11:11] LABS: Troponin-I HS 66 pg/mL (3.0-78.0)
[2023-10-30 11:14] LABS: M R Staph aureus DNA By PCR Negative (Negative); Probe Check PASS; Specimen Processing Control PASS
[2023-10-30 12:17] LABS: Bedside Glucose 121 mg/dL (74-106)
--- NOTE | 2023-10-30 13:08 | PN_ITS ---
Subjective Subjective Patient seen and examined. was by his bedside. He was admitted with a complaint of fever and shortness of breath. He is being managed for acute COPD exacerbation and pneumonia. Patient is quite frail and weak. He is still coughing throughout my review. He has been febrile but denies any chest pain, nausea or vomiting or any other symptoms. Review of systems otherwise negative. Objective Data Objective Data Vital Signs: Vital Signs Temp Pulse Resp BP Pulse Ox O2 Del Method O2 Flow Rate 102.8 F H 87 22 H 130/41 H 94 Nasal Cannula 6 10/30/23 11:48 10/30/23 11:48 10/30/23 11:48 10/30/23 11:48 10/30/23 11:48 10/30/23 11:48 10/30/23 11:48 FiO2 4 10/30/23 01:11 Oxygen Flow Rate (L/min) 6 Oxygen Delivery Method Nasal Cannula Weight: 247 lb 2.211 oz Body Mass Index (BMI) 35.4 Intake & Output: Intake and Output for Last 24 Hours 10/28/23 10/29/23 10/30/23 23:59 23:59 23:59 Intake Total 305 / 305 Output Total 450 / 450 Balance -145 / -145 Lab / Micro Data 10/30/23 04:54 10/30/23 04:54 Labs: Laboratory Results - last 24 hr 10/30/23 01:20: WBC 5.2, RBC 2.89 L, Hgb 9.0 L, Hct 27.8 L, MCV 96.2 H, MCH 31.1, MCHC 32.4, RDW Std Deviation 51.0 H, RDW Coeff of Silvia 14.9 H, Plt Count 143 L, MPV 9.6, Immature Gran % (Auto) 1.000 H, Neut % (Auto) 76.6 H, Lymph % (Auto) 8.8 L, [place] % (Auto) 11.5 H, Eos % (Auto) 1.5, Baso % (Auto) 0.6, Absolute Neuts (auto) 4.0, Absolute Lymphs (auto) 0.46 L, Nucleated RBC % 0, PT 14.3, INR 1.1, APTT 33.1, Sodium 139, Potassium 5.1, Chloride 103, Carbon Dioxide 25.0, Anion Gap 11, BUN 75 H, Creatinine 10.50 H*, Estim Creat Clear Calc 8.35, Est GFR (MDRD) Af Amer 6 L, Est GFR (MDRD) Non-Af 5 L, BUN/Creatinine Ratio 7.1 L, Glucose 125 H, Lactic Acid 0.8, Calcium 8.0 L, Magnesium 2.2, Total Bilirubin 0.50, AST 21, ALT 18, Alkaline Phosphatase 50, Total Protein 6.9, Albumin 3.1 L, Globulin 3.8, Albumin/Globulin Ratio 0.8 L 10/30/23 01:40: Urine Color Yellow, Urine Clarity Clear, Urine pH 7.0, Ur Specific [place] 1.015, Urine Protein 500 H, Urine Glucose (UA) 100 H, Urine Ketones 5 H, Urine Occult Blood 150 H, Urine Nitrite Negative, Urine Bilirubin Negative, Urine Urobilinogen Normal, Ur Leukocyte Esterase Negative, Urine RBC 10-25 SEEN, Urine WBC 0-5 SEEN, Ur Squamous Epith Cells 0 SEEN, Urine Bacteria 0 SEEN, Urine Mucus 0 SEEN 10/30/23 04:54: WBC 4.8, RBC 2.59 L, Hgb 7.9 L, Hct 25.5 L, MCV 98.5 H, MCH 30.5, MCHC 31.0 L, RDW Std Deviation 52.1 H, RDW Coeff of Silvia 14.9 H, Plt Count 132 L, MPV 10.2, Immature Gran % (Auto) 1.000 H, Neut % (Auto) 76.3 H, Lymph % (Auto) 10.1 L, [place] % (Auto) 11.0 H, Eos % (Auto) 1.0, Baso % (Auto) 0.6, Absolute Neuts (auto) 3.7, Absolute Lymphs (auto) 0.49 L, Nucleated RBC % 0.4, Sodium 138, Potassium 4.6, Chloride 103, Carbon Dioxide 24.0, Anion Gap 11, BUN 74 H, Creatinine 10.60 H*, Estim Creat Clear Calc 8.94, Est GFR (MDRD) Af Amer 6 L, Est GFR (MDRD) Non-Af 5 L, BUN/Creatinine Ratio 7.0 L, Glucose 155 H, Hemoglobin A1c 5.0, Calcium 7.5 L, Total Bilirubin 0.50, AST 20, ALT 15 L, Alk abdirizak Phosphatase 45, Troponin I High Sens 54, Total Protein 6.4, Albumin 2.8 L, Globulin 3.6, Albumin/Globulin Ratio 0.8 L, Procalcitonin 0.42 H, TSH 1.21 10/30/23 06:24: POC Glucose 128 H 10/30/23 07:35: Troponin I High Sens 62 10/30/23 08:45: MRSA (PCR) Negative 10/30/23 10:46: Troponin I High Sens 66 10/30/23 11:44: POC Glucose 121 H Micro: Microbiology 10/30/23 03:00 Mucosa - Nose Respiratory Panel (PCR) - Final Human [place] 10/30/23 01:40 Urine Catheter - Catheter Legionella Antigen - Final 10/30/23 01:40 Urine Catheter - [place] Streptococcus pneumoniae Antigen (M - Final 10/30/23 01:40 Mucosa - Nose SARS-CoV-2, Influenza & RSV (PCR) - Final Radiography Diagnostic Testing: Radiology Impression Chest X-Ray 10/30/23 01:25 IMPRESSION: 1. Left basilar airspace disease suggesting pneumonia. 2. Cardiomegaly and mild pulmonary vascular congestion. Electronically Signed: Ilene Ruff MD at 2:44 EDT Reading Location ID and State: [facility] / ID , Service support , Physical Exam Const alert Constitutional Narrative: weak and frail Orientation / Consciousness: lethargic HEENT normocephalic, head/scalp atraumatic and oropharynx normal Mouth: dry mucous membranes Neck no lymphadenopathy and supple Lymph Lymphatic: no lymphadenopathy noted and no lymphedema noted Resp Resp Narrative: Diminished breath sounds bibasilarly. Bilateral wheezing. No crackles. On 6 L of oxygen by nasal cannula. Patient is tachypneic. Cardio regular rate, regular rhythm, S1 normal heart sound, S2 normal heart sound and no murmurs GI normal to inspection, nondistended, normoactive bowel sounds, soft to palpation, non-tender and non-distended Extremity normal capillary refill, no clubbing, cyanosis or edema and no calf tenderness General Extremity: no tenderness to palpation of joints or extremities Skin General Skin Exam: no breakdown Neuro CN's II-XII intact bilaterally, no focal motor deficits, no sensory deficits noted and deep tendon reflexes 2+ bilaterally Motor Exam: general weakness Psych cooperative Psych Narrative: frail, flat affect Assessment & Plan Assessment/Plan (1) Pneumonia: (2) CHF exacerbation: PLAN: Plan # Acute on chronic hypoxic respiratory failure due to acute CHF exacerbation and human metapneumovirus infection with superimposed community-acquired pneumonia * Currently on 6 L of oxygen. WBC is 4.8. On IV ceftriaxone and azithromycin. * Patient remains febrile with temperature going up to 102.8 Fahrenheit. * Urine for strep and Legionella Legionella negative. Breathing treatments bronchodilators. Titrate oxygen to maintain saturation above 90%. * Respiratory panel positive for human metapneumovirus infection. * #Acute on chronic anemia: * Hemoglobin 7.9. Was 9 on admission with his baseline being between 10 and 11. * Etiology for this is not clear. It may be due to hemodilution as platelets and WBC also fell slightly. * Will monitor closely. * If hemoglobin drops on MRI requested a more extensive workup and transfuse if hemoglobin less than 7. * #COPD: Not in exacerbation. Breathing treatments bronchodilators. #ESRD: On dialysis Wednesdays and Fridays. Nephrology consulted. #Type 2 diabetes mellitus with chronic neuropathy: #Paroxysmal atrial fibrillation and flutter: On metoprolol. Also on Eliquis. #History of CVA with left-sided hemiplegia: On Eliquis. On statin. Also on metoprolol and amlodipine. #Hypertension: On metoprolol and amlodipine. IV hydralazine as needed #History of seizure disorder: Valproic acid. IV Ativan as needed. #Restless leg syndrome: Not on any treatment. To give Requip as needed. DVT prophylaxis: On Eliquis Charges/Coding Visit Charges Inpatient E&M: 95138 Subs Hosp L3
--- NOTE | 2023-10-30 14:06 | CON.PCM.RE_ITS ---
Assessment & Plan Assessment/Plan (1) End stage renal disease: PLAN: On hemodialysis Tuesday, , Tuesday schedule. Recently he has been going on late Tuesday and Tuesday. Last dialysis was Tuesday. Today potassium is okay. Chest x-ray without any significant volume overload. No significant acidosis. We will plan for dialysis tomorrow. High-grade fevers. Respiratory panel positive for metapneumovirus. Fever spikes are worsening. Discussed with hospitalist. Blood and urine cultures will be sent. He has a right IJ tunneled dialysis catheter for a long time. Previous AV fistula did not work out. HPI Consult Data Date of Consult: 10/30/23 HPI Narrative Reason for Consultation: ESRD HPI Narrative: JAMES RICO, is a 63 M who presents with fever, cough, shortness of breath. Nephrology on consultation in view of ESRD. Currently on hemodialysis 3 times a week although he usually goes 1-2 times a week. Last dialysis was Tuesday. He was supposed to go yesterday but he was admitted here with above complaints. Looks fairly sick, staff at bedside, temperature spike of 103 degrees. Unable to answer a lot of questions. Discussed with hospitalist, sepsis workup including blood and urine cultures have been sent. He has a right IJ tunneled dialysis catheter for a long time, he also had a pressure which was unable to be used. [facility] Medical History (Updated 10/30/23 @ 14:[address] Katherin Sandoval MD) Acute and chronic respiratory failure with hypoxia Ambulates with cane Arthritis Back pain Cardiology follow-up encounter CHF (congestive heart failure) Chronic kidney disease, stage 4 (severe) Dietary restriction End stage renal disease Epilepsy ESRD (end stage renal disease) on dialysis Former smoker Heartburn High cholesterol History of atrial fibrillation History of echocardiogram History of pain when walking History of renal dialysis History of renal disease History of right MCA stroke History of stress test HTN (hypertension) Injury of head and neck Insulin dependent diabetes mellitus Migraine headache Peripheral neuropathy Polyneuropathy Restless legs Right leg weakness Seizures Stroke Syncope TIA (transient ischemic attack) Weakness Wears glasses Wears partial dentures Home Medications apixaban 5 mg tablet (Eliquis) 5 mg PO BID #60 tabs 03/24/22 [Rx Last Taken 09/16/22] atorvastatin 10 mg tablet 20 mg PO QHS 10/13/22 [History Last Taken Unknown] albuterol sulfate 90 mcg/actuation aerosol inhaler (Ventolin HFA) 2 puff inhalation Q6H PRN Wheezing 08/24/22 [History Last Taken Unknown] metoprolol tartrate 25 mg tablet 25 mg PO DAILY 08/24/22 [History Last Taken Unknown] amlodipine 10 mg tablet 10 mg PO DAILY #30 tabs 09/15/22 [Rx Last Taken 09/17/22] Manual wheelchair #1 ea 03/24/23 [Rx Last Taken Unknown] gabapentin 100 mg capsule 100 mg PO TID #90 caps 04/20/23 [Rx Last Taken Unknown] brimonidine 0.2 % eye drops 1 drp ophthalmic (eye) BID 05/11/23 [History Last Taken Unknown] divalproex 500 mg tablet,delayed release (Depakote) 1,000 mg PO BID 07/31/23 [History Last Taken Unknown] latanoprost 0.005 % eye drops 1 drp RIGHT EYE BID 10/30/23 [History Last Taken Unknown] Allergy/AdvReac Type Severity Reaction Status Date / Time lisinopril AdvReac Severe Other Verified 07/31/23 16:32 oxycodone AdvReac Severe Other Verified 07/31/23 16:32 hydrocodone bitartrate AdvReac Mild HYPER Verified 07/31/23 16:32 [From Vicodin] Family History Father Cancer Prostate Heart disease Mother Heart disease Diabetes Other COPD (chronic obstructive pulmonary disease) Surgical History History of rotator cuff surgery History of umbilical hernia repair Hx of arteriovenostomy for renal dialysis Hx of left cataract extraction Hx of right cataract extraction S/P arteriovenous (AV) fistula creation Status post foot surgery Social History household members: spouse and children number of children: 3 current occupational status: disabled Smoking Status: Never smoker Smokeless tobacco user: snuff second hand exposure: No alcohol intake: never substance use type: does not use what type of physical activity do you participate in: other details: health point frequency: 3-4 times per week alba/taoist: Other seatbelt use: always ROS ROS Narrative negative except above Physical Exam Narrative Somewhat sick looking no obvious distress no pallor no icterus no JVD s1s2 no murmurs abdomen soft no organomegaly no edema no cyanosis Lab / Micro Data 10/30/23 04:54 10/30/23 04:54 Labs: Laboratory Results - last 24 hr 10/30/23 01:20: WBC 5.2, RBC 2.89 L, Hgb 9.0 L, Hct 27.8 L, MCV 96.2 H, MCH 31.1, MCHC 32.4, RDW Std Deviation 51.0 H, RDW Coeff of Silvia 14.9 H, Plt Count 143 L, MPV 9.6, Immature Gran % (Auto) 1.000 H, Neut % (Auto) 76.6 H, Lymph % (Auto) 8.8 L, [place] % (Auto) 11.5 H, Eos % (Auto) 1.5, Baso % (Auto) 0.6, Abs olute Neuts (auto) 4.0, Absolute Lymphs (auto) 0.46 L, Nucleated RBC % 0, PT 14.3, INR 1.1, APTT 33.1, Sodium 139, Potassium 5.1, Chloride 103, Carbon Dioxide 25.0, Anion Gap 11, BUN 75 H, Creatinine 10.50 H*, Estim Creat Clear Patricio c 8.35, Est GFR (MDRD) Af Amer 6 L, Est GFR (MDRD) Non-Af 5 L, BUN/Creatinine Ratio 7.1 L, Glucose 125 H, Lactic Acid 0.8, Calcium 8.0 L, Magnesium 2.2, Total Bilirubin 0.50, AST 21, ALT 18, Alkaline Phosphatase 50, Total Protein 6.9, Albumin 3.1 L, Globulin 3.8, Albumin/Globulin Ratio 0.8 L 10/30/23 01:40: Urine Color Yellow, Urine Clarity Clear, Urine pH 7.0, Ur Specific [place] 1.015, Urine Protein 500 H, Urine Glucose (UA) 100 H, Urine Ketones 5 H, Urine Occult Blood 150 H, Urine Nitrite Negative, Urine Bilirubin N egative, Urine Urobilinogen Normal, Ur Leukocyte Esterase Negative, Urine RBC 10-25 SEEN, Urine WBC 0-5 SEEN, Ur Squamous Epith Cells 0 SEEN, Urine Bacteria 0 SEEN, Urine Mucus 0 SEEN 10/30/23 04:54: WBC 4.8, RBC 2.59 L, Hgb 7.9 L, Hct 25.5 L, MCV 98.5 H, MCH 30.5, MCHC 31.0 L, RDW Std Deviation 52.1 H, RDW Coeff of Silvia 14.9 H, Plt Count 132 L, MPV 10.2, Immature Gran % (Auto) 1.000 H, Neut % (Auto) 76.3 H, Lymph % (Auto) 10.1 L, Moore % (Auto) 11.0 H, Eos % (Auto) 1.0, Baso % (Auto) 0.6, Absolute Neuts (auto) 3.7, Absolute Lymphs (auto) 0.49 L, Nucleated RBC % 0.4, Sodium 138, Potassium 4.6, Chloride 103, Carbon Dioxide 24.0, Anion Gap 11, BUN 74 H, Creatinine 10.60 H*, Estim Creat Clear Calc 8.94, Est GFR (MDRD) Af Amer 6 L, Est GFR (MDRD) Non-Af 5 L, BUN/Creatinine Ratio 7.0 L, Glucose 155 H, Hemoglobin A1c 5.0, Calcium 7.5 L, Total Bilirubin 0.50, AST 20, ALT 15 L, Alkaline Phosphatase 45, Troponin I High Sens 54, Total Protein 6.4, Albumin 2.8 L, Globulin 3.6, Albumin/Globulin Ratio 0.8 L, Procalcitonin 0.42 H, TSH 1.21 10/30/23 06:24: POC Glucose 128 H 10/30/23 07:35: Troponin I High Sens 62 10/30/23 08:45: MRSA (PCR) Negative 10/30/23 10:46: Troponin I High Sens 66 10/30/23 11:44: POC Glucose 121 H Micro: Microbiology 10/30/23 03:00 Mucosa - Nose Respiratory Panel (PCR) - Final Human [place] 10/30/23 01:40 Urine Catheter - Catheter Legionella Antigen - Final 10/30/23 01:40 Urine Catheter - [place] Streptococcus pneumoniae Antigen (M - Final 10/30/23 01:40 Mucosa - Nose SARS-CoV-2, Influenza & RSV (PCR) - Final Imaging Radiology Impression Chest X-Ray 10/30/23 01:25 IMPRESSION: 1. Left basilar airspace disease suggesting pneumonia. 2. Cardiomegaly and mild pulmonary vascular congestion. Electronically Signed: Ilene Ruff MD at 2:44 EDT ,
[2023-10-30] MEDS: Ketorolac 15 MG/ML Vial IV (14:23)
[2023-10-30] MEDS: Piperacil/Tazobactam 3.375 GM in 0.9% Normal Saline (50mL MB+) 50 ML IV ×2 (14:32→23:10)
[2023-10-30 17:39] LABS: Bedside Glucose 99 mg/dL (74-106)
[2023-10-30] MEDS: Atorvastatin Calcium 20 MG Tablet PO (20:52)
[2023-10-30] MEDS: Ensure Plus High Protein 120 ML LIQUID PO (20:54)
--- NOTE | 2023-10-30 21:50 | NURSING ---
Per pt was trying to get up and out of bed to use the urinal, he became very short of breath. At 2134 staff assist was called then a rapid. Pt was agonal breathing, diaphoretic and unconscious. intubated pt in PCU then pt was transfered to ICU at 2149 with respiratory at head of bed. Report given to Aimee in ICU.
--- NOTE | 2023-10-30 21:57 | PN.HOSP_ITS ---
Hospitalist Note Rapid response/intubation Note: Patient with ambulation to the bathroom and following return upon nurse evaluation was noted to be in bed unresponsive with agonal breathing with pulse present. Medications administered: Etomidate 20 mg IV x 1, succinylcholine 100 mg IV x 1. ETT size: 7.5 Patient intubated in standard fashion with visualization of the vocal cords and passage of the ETT. Positioning verified with auscultation. OG placed and verified with auscultation. Post-intubation/OG CXR and abdominal film requested. Patient with transition to ICU with consultation to ICU physician. Will initiate ventilation with regimen alteration at discretion of pouring crane operator. Will initiate sedation with regimen alteration per pouring crane operator discretion. Procedures Hospitalists Procedures: [id number] Insert Emergency Airway
[2023-10-30] MEDS: Propofol 10MG/Ml 1,000 MG/100 ML Bottle 6.7 MG CONT INF (22:15)
[2023-10-30] MEDS: fentaNYL drip 100 ML 2.5 MCG CONT INF (22:15)
--- NOTE | 2023-10-30 22:16 | RAD_ITS ---
INDICATION: To confirm ET placement -- Call wet read to MD EXAMINATION/TECHNIQUE: X-RAY - XR Chest 1 View COMPARISON: Chest x-ray from 1:00 AM FINDINGS: LINES/DEVICES: ET tube tip at lore directed towards right mainstem bronchus. Right jugular indwelling dialysis catheter tip at lower SVC. Enteric tube tip below [id number] within upper abdomen. LUNGS: Multifocal bilateral pulmonary airspace opacities again noted. No sizable pleural effusion. No pneumothorax detected. MEDIASTINUM AND CARDIOVASCULAR STRUCTURES: Heart size within normal limits for imaging technique. Mediastinal contours unremarkable. BONES AND SOFT TISSUES: No acute findings. RAD/Chest 1 View (Portable) IMPRESSION: 1. ET tube tip at lore, recommend withdrawing 2 to 3 cm. 2. Multifocal bilateral pulmonary airspace disease/infiltrate. Electronically Signed: Mainor Elise MD at 22:44 EDT ,
[2023-10-30] MEDS: Succinylcholine Chloride 200 MG/10 ML SYRINGE 100 MG IV (22:21)
[2023-10-30] MEDS: Etomidate 20 MG/10 ML Vial IV (22:21)
[2023-10-30] MEDS: Chlorhexidine 15 ML PO (22:24)
[2023-10-30 22:43] LABS: Bedside Glucose 104 mg/dL (74-106)
--- NOTE | 2023-10-30 22:45 | RAD_ITS ---
INDICATION: Pulling back ETT EXAMINATION/TECHNIQUE: X-RAY - XR Chest 1 View COMPARISON: 10/30/2023 at 10:11 PM. FINDINGS: LINES/DEVICES: Endotracheal tube tip 3.2 cm from the lore. Right-sided dialysis catheter is stable. LUNGS: Scattered bilateral airspace opacities. No evidence of a pleural effusion or a pneumothorax. MEDIASTINUM AND CARDIOVASCULAR STRUCTURES: Cardiac silhouette is normal in size and contour. Mediastinum is unremarkable. BONES AND SOFT TISSUES: No acute abnormality. RAD/Chest 1 View (Portable) IMPRESSION: 1. Endotracheal tube tip 3.2 cm from the lore. 2. Scattered bilateral airspace opacities consistent with pneumonia. Electronically Signed: Shahbaz Rosales DO at 23:48 EDT ,
[2023-10-30] MEDS: Albuterol 2.5 MG/3 ML VIAL.NEB. INHALATION (22:48)
[2023-10-30] MEDS: Pantoprazole Sodium 40 MG in 0.9% Normal Saline (100mL MB+) 100 ML 330 MG IV (23:02)
[2023-10-30 23:07] LABS: Allen Test Positive; Base Excess -10 mmol/L (-2 to +2); Bicarbonate 17.5 mmol/L (22-26); Blood Gas Specimen Type ART; Mode AC; O2 Delivery Device ET Tube; PEEP 5; PO2 64 mmHG (75-100); RR 14; SITE L Radial; SO2 88 % (95-99); Total Carbon Dioxide 19 mmol/L; pCO2 41.1 mmHg (35-45); pH 7.24 (7.35-7.45)
[2023-10-30 23:09] LABS: Bedside Glucose 165 mg/dL (74-106)
[2023-10-31] VITALS (56 sets, daily range): BP systolic 82–193; BP diastolic 54–80; PULSE 64–134; RESP 14–15; TEMP 35.4–38.1; O2SAT 14–100; BMI 27.8; BMI 27.7; BMI 26.9
[2023-10-31 03:21] LABS: Absolute Lymphocyte Count 0.36 X10^3/uL (0.83-4.51); Absolute Neutrophil Count 7.7 X10^3/uL (2.0-7.7); Basophil# 0.03 X10^3/uL; Basophil% 0.3 % (0-1); Hematocrit 21.6 % (40-54); Hemoglobin 6.8 g/dL (13.0-16.5); Lymphocyte # 0.36 X10^3/ul (0.83-4.51); Lymphocyte % 4.2 % (19-41); Mean Corp Hgb Conc 31.5 g/dL (32-36); Mean Corpuscular Hgb 31.6 pg (27.0-32.0); Mean Corpuscular Volume 100.5 fL (80-94); Mean Platelet Vol. 10.2 fl (6.2-12.0); Monocyte# 0.51 X10^3/uL; Monocyte% 5.9 % (0-10); NRBC Flagged by Analyzer 0.2 % (0-5); Neutrophil # 7.66 X10^3/uL (2.7-7.7); Neutrophil % 88.7 % (47-70); POSITIVE DIFFERENTIAL YES; POSITIVE MORPHOLOGY YES; Platelet Count 103 K/mm3 (150-450); RBC Distribution Width CV 15.2 % (11.6-14.6); RBC Distribution Width SD 53.4 fl (35.1-43.9); Red Blood Count 2.15 M/mm3 (4.6-6.2); White Blood Count 8.6 K/mm3 (4.4-11.0)
[2023-10-31 03:24] LABS: Differential Indicated SCAN CRITERIA MET
[2023-10-31 03:46] LABS: Anion Gap 23 (5-15); BUN 88 mg/dL (7-18); BUN/Creat Ratio 7.3 RATIO (10-20); Calcium,Total 7.2 mg/dL (8.5-10.1); Chloride 101 mmol/L (98-107); Cholesterol 115 mg/dL (200); EST Glomerular Filtration Rate 5 mL/min (>60); Est Glom Filt Rate - Afr Amer 6 mL/min (>60); Estimated Creatinine Clearance 6.98 ml/min; Glucose 118 mg/dL (74-106); High Density Lipoprotein 34 mg/dL; Potassium 4.6 mmol/L (3.5-5.1); Sodium Level 139 mmol/L (136-145); Triglycerides 209 mg/dL; Very Low Density Lipoprotein 42 mg/dL (5-40)
[2023-10-31 03:48] LABS: CPK Total, Creatine Kinase 393 U/L (39-308); Triglycerides 206 mg/dL
[2023-10-31] MEDS: Propofol 10MG/Ml 1,000 MG/100 ML Bottle 10.5 MG CONT INF ×2 (04:01→11:46)
[2023-10-31 04:02] LABS: Differential Comment SCANNED
[2023-10-31] MEDS: TITRATION PARAMETER CHANGE 1 EACH IV (05:03)
[2023-10-31] MEDS: 0.9% Saline Lock 10 ML Syringe IV ×3 (05:03→14:59)
[2023-10-31] MEDS: Gabapentin 100 MG Capsule GT ×2 (05:14→20:31)
[2023-10-31] MEDS: Budesonide Respules 0.5 MG/2 ML AMPUL.NEB. INHALATION ×2 (07:08→19:25)
[2023-10-31 07:14] LABS: Bedside Glucose 90 mg/dL (74-106)
[2023-10-31] MEDS: Metoprolol Tartrate 25 MG Tablet GT (08:05)
[2023-10-31] MEDS: amLODIPine 10 MG Tablet GT (08:05)
[2023-10-31] MEDS: Divalproex Sodium 125 MG SPRINKLE 1000 MG NG ×2 (08:05→20:31)
[2023-10-31] MEDS: Furosemide 40 MG/4 ML Vial IV ×2 (08:06→18:09)
[2023-10-31] MEDS: APIXABAN 5 MG TABLET GT (08:06)
[2023-10-31] MEDS: Chlorhexidine 15 ML PO ×2 (08:06→20:31)
[2023-10-31] MEDS: Vancomycin HCl 2,000 MG in 0.9% Normal Saline (500mL Bag) 500 ML 250 MG IV (08:27)
--- NOTE | 2023-10-31 08:48 | EX.PCM.CONCC ---
Assessment & Plan Assessment/Plan (1) CHF exacerbation: QUALIFIERS: Heart failure type: diastolic Qualified Code(s): I50.33 - Acute on chronic diastolic (congestive) heart failure (2) End stage renal disease: (3) Acute respiratory failure: QUALIFIERS: Respiratory failure complication: hypoxia Qualified Code(s): J96.01 - Acute respiratory failure with hypoxia PLAN: Plan RECOMMENDATIONS: 1. Continue empiric antibiotics pending cultures 2. Hemodialysis per nephrology 3. Wean oxygen as tolerated 4. Potentially discontinue antibiotics if culture negative at 48 hours 5. Transfuse blood with hemodialysis 6. Possible GI workup pending response. Hold apixaban IMPRESSIONS: 1. Acute on chronic hypoxic respiratory failure secondary to CHF/reported COPD Patient appears to have multifaceted etiology for respiratory failure. Patient does have significant metabolic acidosis, likely secondary to poor renal clearance. Patient may have an element of bacterial infection, but also tested positive for human metapneumovirus. Patient also appears to be significantly fluid overloaded and would benefit from fluid removal. Patient reportedly is on budesonide at baseline, so we will continue this moving forward. Will hold off on systemic steroids for now. Spontaneous breathing and awakening trials per protocol. Patient does not have a PFT to confirm COPD diagnosis. Will continue budesonide for now. If steroids are initiated, this will likely be discontinued. Anticipate metabolic acidosis will have to be addressed before patient will be able to tolerate extubation. 2. Paroxysmal a flutter/volume overload/history of CVA Patient has not had significant hemodialysis in quite some time. Will attempt volume removal to see if this improves his overall condition. Patient does have left hemiparesis at baseline. Will hold apixaban as patient has significant anemia. 3. Diabetes mellitus type 2 Hemoglobin A1c is within normal limits. Continue with sliding scale. Okay to start tube feeds. Blood sugars appear to be adequately controlled at this time. 4. End-stage renal disease with poor compliance Patient reportedly misses several hemodialysis sessions per month. Patient's creatinine is significantly elevated. Patient's blood gas is significant for a metabolic acidosis. Patient does have a tunneled hemodialysis line, so a line infection is a consideration. Patient is on empiric antibiotics pending cultures. 5. Hypertension/GERD/RLS/anxiety/depression/seizure disorder/hyperlipidemia/chronic anemia Complicates care, management, recovery and prognosis. Okay to continue with baseline medications from my perspective. Patient's baseline hemoglobin appears to be approximately 9. If patient does not increment appropriately, may need to a workup for GI. Patient currently intubated and sedated. No seizure activity has been noted. Okay to continue with Depakote. TIME: 40 minutes critical care time spent addressing patient's respiratory failure, ESRD, review of all data and collaboration with care team HPI Consult Data Date of Consult: 10/31/23 HPI Narrative Reason for Consultation: Respiratory failure HPI Narrative: JAMES RICO is a 63 M, with past medical history listed below, who presents to [facility] on 10/30/2023 secondary to cough and progressive shortness of breath. Patient reportedly had been feeling sick over the last week and missed dialysis on Tuesday. Patient reportedly runs on Tuesday, Tuesday and Tuesday. Patient was noted to have no subjective fever at home, but had presented with a temperature of 101.5 ?F. In the ER, patient was febrile and requiring 4 L nasal cannula to maintain saturations. Patient was also significantly hypertensive with a blood pressure of 193/109. Patient initially was noted to be 77% on room air. Laboratory workup showed a white blood cell count of 5.2, hemoglobin of 9 and platelets of 143. Coagulation studies were within normal limits. Patient noted to have a potassium of 5.1 with a BUN of 75 and a creatinine of 10.5. Glucose was elevated at 125 and urinalysis was relatively unremarkable. Chest x-ray showed left basilar infiltrate with cardiomegaly. EKG showed sinus tachycardia. Patient was treated with Lasix, Rocephin and Zithromax. Patient would eventually test positive for human metapneumovirus. Patient was admitted to the floor for further evaluation. While in the floor, patient had a rapid response called while on the PCU. Patient reportedly had been walking to the bathroom and became unresponsive with agonal breathing. Patient was intubated without reported complications and admitted to the intensive care unit for further evaluation. Since being in the intensive care unit, patient has remained on propofol and fentanyl. Patient also has been broadened to vancomycin and Zosyn. Patient did have a significant fever of 39.4 ?C overnight, but has been maintaining blood pressure without pressors. Patient's blood pressure is significantly lower compared to presentation. Patient is currently intubated and sedated and unable to provide additional information such as review of systems. Patient reportedly does have difficulty with compliance with dialysis, but this cannot be verified. Patient does reportedly have a baseline of left hemiparesis [facility] Medical History Acute and chronic respiratory failure with hypoxia Ambulates with cane Arthritis Back pain Cardiology follow-up encounter CHF (congestive heart failure) Chronic kidney disease, stage 4 (severe) Dietary restriction End stage renal disease Epilepsy ESRD (end stage renal disease) on dialysis Former smoker Heartburn High cholesterol History of atrial fibrillation History of echocardiogram History of pain when walking History of renal dialysis History of renal disease History of right MCA stroke History of stress test HTN (hypertension) Injury of head and neck Insulin dependent diabetes mellitus Migraine headache Peripheral neuropathy Polyneuropathy Restless legs Right leg weakness Seizures Stroke Syncope TIA (transient ischemic attack) Weakness Wears glasses Wears partial dentures Home Medications apixaban 5 mg tablet (Eliquis) 5 mg PO BID #60 tabs 03/24/22 [Rx Last Taken 09/16/22] atorvastatin 10 mg tablet 20 mg PO QHS 05/20/22 [History Last Taken Unknown] albuterol sulfate 90 mcg/actuation aerosol inhaler (Ventolin HFA) 2 puff inhalation Q6H PRN Wheezing 08/24/22 [History Last Taken Unknown] metoprolol tartrate 25 mg tablet 25 mg PO DAILY 08/24/22 [History Last Taken Unknown] amlodipine 10 mg tablet 10 mg PO DAILY #30 tabs 09/15/22 [Rx Last Taken 09/17/22] Manual wheelchair #1 ea 03/24/23 [Rx Last Taken Unknown] gabapentin 100 mg capsule 100 mg PO TID #90 caps 04/20/23 [Rx Last Taken Unknown] brimonidine 0.2 % eye drops 1 drp ophthalmic (eye) BID 05/11/23 [History Last Taken Unknown] divalproex 500 mg tablet,delayed release (Depakote) 1,000 mg PO BID 07/31/23 [History Last Taken Unknown] latanoprost 0.005 % eye drops 1 drp RIGHT EYE BID 10/30/23 [History Last Taken Unknown] Allergy/AdvReac Type Severity Reaction Status Date / Time lisinopril AdvReac Severe Other Verified 07/31/23 16:32 oxycodone AdvReac Severe Other Verified 07/31/23 16:32 hydrocodone bitartrate AdvReac Mild HYPER Verified 07/31/23 16:32 [From Vicodin] Family History Father Cancer Prostate Heart disease Mother Heart disease Diabetes Other COPD (chronic obstructive pulmonary disease) Surgical History History of rotator cuff surgery History of umbilical hernia repair Hx of arteriovenostomy for renal dialysis Hx of left cataract extraction Hx of right cataract extraction S/P arteriovenous (AV) fistula creation Status post foot surgery Social History household members: spouse and children number of children: 3 current occupational status: disabled Smoking Status: Never smoker Smokeless tobacco user: snuff second hand exposure: No alcohol intake: never substance use type: does not use what type of physical activity do you participate in: other details: health point frequency: 3-4 times per week alba/confucianism: Other seatbelt use: always ROS Review of Systems ROS Unobtainable: due to endotracheal tube Physical Exam Const Constitutional Narrative: Intubated and sedated. RASS -3. Good ventilator synchrony. General Appearance: patient mechanically ventilated HEENT normocephalic and head/scalp atraumatic Mouth: dry mucous membranes, endotracheal tube in place and OG tube in place Eyes conjunctivae normal Neck no lymphadenopathy and supple Lymph Lymphatic: no lymphadenopathy noted and no lymphedema noted Resp Auscultation: rales, wheezes and diminished lung sounds Cardio regular rate, regular rhythm, S1 normal heart sound, S2 normal heart sound and no murmurs GI normal to inspection, nondistended, normoactive bowel sounds Extremity normal capillary refill, no clubbing, cyanosis or edema and no calf tenderness General Extremity: no tenderness to palpation of joints or extremities Skin Skin Narrative: Tunneled HD cath is clean, dry and intact General Skin Exam: no breakdown Neuro Neuro Narrative: Left-sided hemiparesis Psych Mood & Affect: flat affect Medical Records Data Attestation: I reviewed the patient's medical records Lab / Micro Data Attestation: I reviewed the patient's lab results. Lab results narrative: Review of patient's previous cultures showed no positive blood cultures. Patient has tested positive for COVID-19 and recently for human metapneumovirus. 10/31/23 03:12 10/31/23 03:12 Labs: Laboratory Results - last 24 hr 10/30/23 08:45: MRSA (PCR) Negative 10/30/23 10:46: Troponin I High Sens 66 10/30/23 11:44: POC Glucose 121 H 10/30/23 17:17: POC Glucose 99 10/30/23 21:05: POC Glucose 104 10/30/23 21:38: POC Glucose 165 H 10/31/23 03:12: WBC 8.6, RBC 2.15 L, Hgb 6.8 L, Hct 21.6 L, MCV 100.5 H, MCH 31.6, MCHC 31.5 L, RDW Std Deviation 53.4 H, RDW Coeff of Silvia 15.2 H, Plt Count 103 L, MPV 10.2, Immature Gran % (Auto) 0.900, Neut % (Auto) 88.7 H, Lymph % (Auto) 4.2 L, [place] % (Auto) 5.9, Eos % (Auto) 0.0, Baso % (Auto) 0.3, Absolute Neuts (auto) 7.7, Absolute Lymphs (auto) 0.36 L, Nucleated RBC % 0.2, Differential Comment SCANNED, Sodium 139, Potassium 4.6, Chloride 101, Carbon Dioxide 15.0 L, Anion Gap 23 H, BUN 88 H, Creatinine 12.10 H*, Estim Creat Clear Calc 6.98, Est GFR (MDRD) Af Amer 6 L, Est GFR (MDRD) Non-Af 5 L, BUN/Creatinine Ratio 7.3 L, Glucose 118 H, Calcium 7.2 L, Total Creatine Kinase 393 H, Triglycerides 209 H 10/31/23 03:12: Triglycerides 206 H, Cholesterol 115, LDL Cholesterol 39, VLDL Cholesterol 42 H, HDL Cholesterol 34 L 10/31/23 04:30: Antibody Screen NEGATIVE, Crossmatch See Detail 10/31/23 06:54: POC Glucose 90 Micro: Microbiology 10/30/23 03:00 Mucosa - Nose Respiratory Panel (PCR) - Final Human [place] ABG Data ABG results: ABG 10/30/23 23:02 Specimen Type ART Sample Site L Radial pH 7.24 L Bicarbonate Actual 17.5 L Total CO2 19 Base Excess -10 L O2 Saturation 88 L O2 % 40.0 ABG pCO2 41.1 ABG pO2 64 L Richi Test Positive Respiration Rate 14 O2 Delivery Device ET Tube Vent Mode AC Tidal Volume 500.0 POC PEEP 5 Attestation: I personally reviewed and interpreted this ABG as follows: (Acute metabolic acidosis with increased AA gradient) Imaging Radiology Impression Chest X-Ray 10/30/23 22:16 IMPRESSION: 1. ET tube tip at lore, recommend withdrawing 2 to 3 cm. 2. Multifocal bilateral pulmonary airspace disease/infiltrate. Electronically Signed: Mainor Elise MD at 22:44 EDT , Chest X-Ray 10/30/23 22:45 IMPRESSION: 1. Endotracheal tube tip 3.2 cm from the lore. 2. Scattered bilateral airspace opacities consistent with pneumonia. Electronically Signed: Shahbaz Rosales DO at 23:48 EDT , Supportive devices are in appropriate position. Charges/Coding Procedures Hospitalists Procedures: 66730 Critical Care 1st Hr
[2023-10-31] MEDS: Pantoprazole Sodium 40 MG in 0.9% Normal Saline (100mL MB+) 100 ML 330 MG IV (10:47)
[2023-10-31] MEDS: Piperacil/Tazobactam 3.375 GM in 0.9% Normal Saline (50mL MB+) 50 ML IV ×2 (11:11→20:33)
--- NOTE | 2023-10-31 11:30 | PCM.PN.REN ---
Subjective Subjective Events noted. Currently intubated. Objective Data Objective Data Vital Signs: Vital Signs Temp Pulse Resp BP Pulse Ox O2 Del Method O2 Flow Rate 97.5 F L 67 14 111/62 97 Mechanical Ventilator 30 10/31/23 10:00 10/31/23 10:00 10/31/23 10:00 10/31/23 10:00 10/31/23 10:00 10/31/23 10:00 10/31/23 08:00 FiO2 30 10/31/23 10:00 Oxygen Flow Rate (L/min) 30 Oxygen Delivery Method Mechanical Ventilator Weight: 87.815 kg Body Mass Index (BMI) 27.8 Intake & Output: Intake and Output for Last 24 Hours 10/29/23 10/30/23 10/31/23 23:59 23:59 23:59 Intake Total 748.10 / 803.55 1133.79 / 1133.79 Output Total 450 / 550 115 / 115 Balance 298.10 / 253.55 1018.79 / 1018.79 Lab / Micro Data 10/31/23 03:12 10/31/23 03:12 Labs: Laboratory Results - last 24 hr 10/30/23 11:44: POC Glucose 121 H 10/30/23 17:17: POC Glucose 99 10/30/23 21:05: POC Glucose 104 10/30/23 21:38: POC Glucose 165 H 10/31/23 03:12: WBC 8.6, RBC 2.15 L, Hgb 6.8 L, Hct 21.6 L, MCV 100.5 H, MCH 31.6, MCHC 31.5 L, RDW Std Deviation 53.4 H, RDW Coeff of Silvia 15.2 H, Plt Count 103 L, MPV 10.2, Immature Gran % (Auto) 0.900, Neut % (Auto) 88.7 H, Lymph % (Auto) 4.2 L, [place] % (Auto) 5.9, Eos % (Auto) 0.0, Baso % (Auto) 0.3, Absolute Neuts (auto) 7.7, Absolute Lymphs (auto) 0.36 L, Nucleated RBC % 0.2, Differential Comment SCANNED, Sodium 139, Potassium 4.6, Chloride 101, Carbon Dioxide 15.0 L, Anion Gap 23 H, BUN 88 H, Creatinine 12.10 H*, Estim Creat Clear Calc 6.98, Est GFR (MDRD) Af Amer 6 L, Est GFR (MDRD) Non-Af 5 L, BUN/Creatinine Ratio 7.3 L, Glucose 118 H, Calcium 7.2 L, Total Creatine Kinase 393 H, Triglycerides 209 H 10/31/23 03:12: Triglycerides 206 H, Cholesterol 115, LDL Cholesterol 39, VLDL Cholesterol 42 H, HDL Cholesterol 34 L 10/31/23 04:30: Antibody Screen NEGATIVE, Crossmatch See Detail 10/31/23 06:54: POC Glucose 90 Micro: Microbiology 10/30/23 03:00 Mucosa - Nose Respiratory Panel (PCR) - Final Human [place] 10/30/23 01:40 Urine Catheter - Catheter Legionella Antigen - Final 10/30/23 01:40 Urine Catheter - Bland Streptococcus pneumoniae Antigen (M - Final 10/30/23 01:40 Mucosa - Nose SARS-CoV-2, Influenza & RSV (PCR) - Final ABG Data ABG results: ABG 10/30/23 23:02 Specimen Type ART Sample Site L Radial pH 7.24 L Bicarbonate Actual 17.5 L Total CO2 19 Base Excess -10 L O2 Saturation 88 L O2 % 40.0 ABG pCO2 41.1 ABG pO2 64 L Richi Test Positive Respiration Rate 14 O2 Delivery Device ET Tube Vent Mode AC Tidal Volume 500.0 POC PEEP 5 Radiography Diagnostic Testing: Radiology Impression Chest X-Ray 10/30/23 22:16 IMPRESSION: 1. ET tube tip at lore, recommend withdrawing 2 to 3 cm. 2. Multifocal bilateral pulmonary airspace disease/infiltrate. Electronically Signed: Mainor Elise MD at 22:44 EDT , Chest X-Ray 10/30/23 22:45 IMPRESSION: 1. Endotracheal tube tip 3.2 cm from the lore. 2. Scattered bilateral airspace opacities consistent with pneumonia. Electronically Signed: Shahbaz Rosales DO at 23:48 EDT , Physical Exam Narrative Intubated no obvious distress no pallor no icterus no JVD s1s2 no murmurs abdomen soft no organomegaly no edema no cyanosis Assessment & Plan Assessment/Plan (1) End stage renal disease: PLAN: On hemodialysis Tuesday, , Tuesday schedule. Recently he has been going on late Tuesday and Tuesday. Last dialysis was Tuesday. We will plan for dialysis today. High-grade fevers. Respiratory panel positive for metapneumovirus. Sepsis workup pending Long-term dialysis catheter. Also has a fistula which he did not allow us to cannulate due to pain.
--- NOTE | 2023-10-31 11:33 | CASEMGMT ---
Addendum entered by Tata Ruff 10/31/23 14:19: RN CM Assessment Pt is currently sedated on the vent and is receiving HD. Pt at bedside now. Pt mainly speaks Upper Sorbian. Pt can communicate with simple [place] terms. Pt agrees to answering what she can regarding RN CM assessment. RN CM introduced self and role at [facility], pt voices understanding. Care providers, pharmacy, and demographics verified. Admitting dx: Hypoxia, HF Exacerbation, Possible PNA LACE Strata: 3 PCP: Amish Han Specialists: Luna, neuro; Jaime, nephro Preferred Pharmacy: [facility] Insurance: My Care [facility] Community Plan Prescription Benefit: Yes LNOK: Nessa Trace (W) Living Arrangements: Pt lives with and 2 children on the second floor of an apartment with 14 steps to enter with a rail on one side. Pt states that they are working on getting moved to the first floor of the apartment. ADLs/IADLs: states that she helps with these activities Transportation: DME: Pt reports the pt has a BGM and enough supplies to check BS. Pt also reports the pt mainly uses a WC but also has a cane and walker at home. HHC/SNF: Pt denies pt history of HHC or SNF at time of assessment HD: Pt states that the pt is active with [facility] in [place] and that he goes T,Th,Sat at 11am. Plan: TBD. Pt is currently on the mechanical ventilator (Day #2). Therapy eval pending. Pt states that it is too early to tell what the pt will want to do at time of DC. CM/SW to follow pt progression in the hospital regarding safe DC from [facility]. Kalen Ruff RN CM Addendum entered by Tata Ruff 10/31/23 13:02: Pt is not in the room at this time. TC to pt and no answer. Will follow up for pt assessment. Original Note: Pt is currently sedated and unable to answer this RN CM questions for assessment at this time. TC to pt at this time. Pt states that she is coming into the hospital around noon and will answer this RN CM questions at that time. Will follow up.
--- NOTE | 2023-10-31 11:41 | PCM.PN.HOSP ---
Reason for Visit Reason for Visit: Diagnoses Heart failure, unspecified (10/30/23) Pneumonia, unspecified organism (10/30/23) End stage renal disease (10/30/23) Subjective Subjective Patient was admitted on 10/29 for worsening dyspnea and hypoxia along with fever/chills and mildly productive cough. Family positive for human metapneumovirus infection. Known history of ESRD on HD and frequently misses HD sessions. Also has known history of COPD with chronic hypoxic respiratory failure on home oxygen. On the evening of 10/29, patient was noted to be unresponsive with agonal breathing after ambulating back to bed from the bathroom. He did notably have a pulse at this time. He was emergently intubated and sedated and transported to the ICU for further management. Web Content Editor following. Suspect the patient's respiratory failure is multifactorial secondary to volume overload from missed dialysis, human metapneumovirus infection and possible superimposed bacterial infection. Patient currently intubated and sedated, on fairly low vent settings. Plan is for HD session on 10/30 for volume removal and then patient may be ready for a trial at extubation. Patient seen at bedside. Intubated and sedated, not following commands. Objective Data Objective Data Vital Signs: Vital Signs Temp Pulse Resp BP Pulse Ox O2 Del Method O2 Flow Rate 97.5 F L 67 14 111/62 97 Mechanical Ventilator 30 10/31/23 10:00 10/31/23 10:00 10/31/23 10:00 10/31/23 10:00 10/31/23 10:00 10/31/23 10:00 10/31/23 08:00 FiO2 30 10/31/23 10:00 Oxygen Flow Rate (L/min) 30 Oxygen Delivery Method Mechanical Ventilator Weight: 87.815 kg Body Mass Index (BMI) 27.8 Intake & Output: Intake and Output for Last 24 Hours 10/29/23 10/30/23 10/31/23 23:59 23:59 23:59 Intake Total 748.10 / 803.55 1133.79 / 1133.79 Output Total 450 / 550 115 / 115 Balance 298.10 / 253.55 1018.79 / 1018.79 Lab / Micro Data 10/31/23 03:12 10/31/23 03:12 Labs: Laboratory Results - last 24 hr 10/30/23 11:44: POC Glucose 121 H 10/30/23 17:17: POC Glucose 99 10/30/23 21:05: POC Glucose 104 10/30/23 21:38: POC Glucose 165 H 10/31/23 03:12: WBC 8.6, RBC 2.15 L, Hgb 6.8 L, Hct 21.6 L, MCV 100.5 H, MCH 31.6, MCHC 31.5 L, RDW Std Deviation 53.4 H, RDW Coeff of Silvia 15.2 H, Plt Count 103 L, MPV 10.2, Immature Gran % (Auto) 0.900, Neut % (Auto) 88.7 H, Lymph % (Auto) 4.2 L, [place] % (Auto) 5.9, Eos % (Auto) 0.0, Baso % (Auto) 0.3, Absolute Neuts (auto) 7.7, Absolute Lymphs (auto) 0.36 L, Nucleated RBC % 0.2, Differential Comment SCANNED, Sodium 139, Potassium 4.6, Chloride 101, Carbon Dioxide 15.0 L, Anion Gap 23 H, BUN 88 H, Creatinine 12.10 H*, Estim Creat Clear Calc 6.98, Est GFR (MDRD) Af Amer 6 L, Est GFR (MDRD) Non-Af 5 L, BUN/Creatinine Ratio 7.3 L, Glucose 118 H, Calcium 7.2 L, Total Creatine Kinase 393 H, Triglycerides 209 H 10/31/23 03:12: Triglycerides 206 H, Cholesterol 115, LDL Cholesterol 39, VLDL Cholesterol 42 H, HDL Cholesterol 34 L 10/31/23 04:30: Antibody Screen NEGATIVE, Crossmatch See Detail 10/31/23 06:54: POC Glucose 90 Micro: Microbiology 10/30/23 03:00 Mucosa - Nose Respiratory Panel (PCR) - Final Human [place] 10/30/23 01:40 Urine Catheter - Catheter Legionella Antigen - Final 10/30/23 01:40 Urine Catheter - Bland Streptococcus pneumoniae Antigen (M - Final 10/30/23 01:40 Mucosa - Nose SARS-CoV-2, Influenza & RSV (PCR) - Final ABG Data ABG results: ABG 10/30/23 23:02 Specimen Type ART Sample Site L Radial pH 7.24 L Bicarbonate Actual 17.5 L Total CO2 19 Base Excess -10 L O2 Saturation 88 L O2 % 40.0 ABG pCO2 41.1 ABG pO2 64 L Richi Test Positive Respiration Rate 14 O2 Delivery Device ET Tube Vent Mode AC Tidal Volume 500.0 POC PEEP 5 Radiography Diagnostic Testing: Radiology Impression Chest X-Ray 10/30/23 22:16 IMPRESSION: 1. ET tube tip at lore, recommend withdrawing 2 to 3 cm. 2. Multifocal bilateral pulmonary airspace disease/infiltrate. Electronically Signed: Mainor Elise MD at 22:44 EDT , Chest X-Ray 10/30/23 22:45 IMPRESSION: 1. Endotracheal tube tip 3.2 cm from the lore. 2. Scattered bilateral airspace opacities consistent with pneumonia. Electronically Signed: Shahbaz Rosales DO at 23:48 EDT , Physical Exam Const Constitutional Narrative: Intubated and sedated, not following commands. HEENT normocephalic, head/scalp atraumatic and nasal mucous membranes and turbinates normal Chest inspection of chest normal Resp normal respiratory effort and no use of accessory muscles Resp Narrative: Decreased breath sounds bilaterally throughout with mild crackles noted. No wheezing noted. Cardio regular rate, regular rhythm, no murmurs and peripheral pulses 2+ throughout GI normal to inspection, nondistended, normoactive bowel sounds, soft to palpation, non-tender and non-distended Extremity normal to inspection and no clubbing, cyanosis or edema Skin no rashes or lesions noted Assessment & Plan Assessment/Plan (1) Acute respiratory failure: QUALIFIERS: Respiratory failure complication: hypoxia Qualified Code(s): J96.01 - Acute respiratory failure with hypoxia (2) End stage renal disease: (3) Pneumonia: PLAN: Plan Patient is a 63-year-old male who presented to [facility] ED on 10/30/2023 with worsening dyspnea and hypoxia. 1. Acute on chronic hypoxic respiratory failure ? Web Content Editor following. Suspect multifactorial in setting of volume overload from missed HD sessions, human metapneumovirus infection and possible superimposed bacterial infection. Currently intubated and sedated, on low vent settings. Planning for HD on 10/10 for volume removal, followed by potential trial of extubation per hardening machine operator recs. 2. Human metapneumovirus infection, concern for superimposed bacterial infection ? Web Content Editor following as above. Positive for human metapneumovirus on admit. Chest x-ray shows scattered bilateral airspace opacities consistent with pneumonia. Negative Gram stain, urine antigens negative, respiratory culture pending, blood cultures pending. Procalcitonin 0.42, upper limit of normal. Per hardening machine operator, will continue vancomycin and Zosyn for now. No need for IV steroids at this time. Continue home budesonide. 3. ESRD on HD with frequent missed HD sessions, metabolic acidosis ? Nephrology following. Patient on Tuesday schedule but apparently frequently misses sessions and usually goes when he has volume overload causing worsening hypoxia. Metabolic acidosis presumed secondary to ESRD. Planning for HD session on 10/30 as noted above. 4. Acute on chronic anemia ? Hemoglobin 9.0 on admit, down trended to 7.9 shortly after with IV fluids. Downtrended again to hemoglobin 6.8 on 10/30. No overt signs of bleeding noted. Baseline hemoglobin appears to be around 9-10. Iron studies show ferritin 1852, consistent with anemia of chronic disease. Transfused 1 unit of packed red blood cells on 10/30, repeat hemoglobin pending. Holding home Eliquis for now. If anemia continues to worsen, will likely need GI consult for further evaluation. Chronic medical conditions: ? Type 2 diabetes mellitus: Reported history of diabetes, not currently on home medication. A1c 5.0% on admit. Okay for sliding-scale insulin every 4 hours with tube feeds as needed. ? History of CVA with left sided hemiparesis ? Hypertension: Continue home Lopressor, amlodipine. ? Hyperlipidemia: Continue home statin. ? Anxiety/depression/RLS: Continue home gabapentin. ? Paroxysmal A-fib/flutter on Eliquis: Holding home Eliquis as noted above. Continue home Lopressor. ? Seizure disorder: Continue home Depakote. DVT prophylaxis: SCDs CODE STATUS: Full code, verified Expected disposition: TBD Total clinical time spent by myself addressing the patient's medical issues, reviewing all the data, and collaborating with patient's care team: 50 minutes. Charges/Coding Visit Charges Inpatient E&M: 16231 Subs Hosp L3
[2023-10-31] MEDS: PureFlow B 2K Dialysis Soln 1 BAG 6 BAG PF (12:08)
[2023-10-31] MEDS: 0.9% Normal Saline 1,000 ML IV.SOLN. 1000 ML OPERA.SITE (12:08)
[2023-10-31 12:11] LABS: Bedside Glucose 79 mg/dL (74-106)
[2023-10-31 12:40] LABS: Vitamin B12 660 pg/mL (211-911)
[2023-10-31 12:51] LABS: Ferritin 1852 ng/mL (26-388); Iron 12 ug/dL (65-175); Iron Binding Capacity,Total 132 ug/dL (250-450); PERCENT IRON SATURATION 9.1 % (15.0-55.0)
[2023-10-31] MEDS: Epoetin Alfa epbx 10,000 UNITS/ML 20000 UNIT IV (14:09)
[2023-10-31] MEDS: Heparin 10,000 UNITS/10 ML Vial IV (14:59)
[2023-10-31 15:01] LABS: Bedside Glucose 74 mg/dL (74-106)
[2023-10-31] MEDS: NEPRO TUBE FEED 1,000 ML 20 ML GT (15:23)
[2023-10-31] MEDS: CHLORHEXIDINE GLUC 2% CLOTH 1 EACH TOWELETTE TOPICAL (16:22)
--- NOTE | 2023-10-31 16:35 | PCM.RX.CS ---
Consult Antibiotic Management Pharmacy has been consulted to manage selected antibiotic: Vancomycin Type of Intervention Type of Consult: New start Suspected Infection Suspected Infection: Pneumonia Labs Labs: Sodium 139 mmol/L (136-145) 10/31/23 03:12 Potassium 4.6 mmol/L (3.5-5.1) 10/31/23 03:12 Chloride 101 mmol/L (98-107) 10/31/23 03:12 Carbon Dioxide 15.0 mmol/L (21.0-32.0) L 10/31/23 03:12 Anion Gap 23 (5-15) H 10/31/23 03:12 BUN 88 mg/dL (7-18) H 10/31/23 03:12 Creatinine 12.10 mg/dL (0.70-1.30) H* 10/31/23 03:12 Est GFR (MDRD) Af Amer 6 mL/min (>60) L 10/31/23 03:12 Est GFR (MDRD) Non-Af 5 mL/min (>60) L 10/31/23 03:12 BUN/Creatinine Ratio 7.3 RATIO (10-20) L 10/31/23 03:12 Glucose 118 mg/dL (74-106) H 10/31/23 03:12 Microbiology Microbiology: Microbiology 10/30/23 22:40 Sputum, Induced/Lukens Gram Stain - Final 10/30/23 03:00 Mucosa - Nose Respiratory Panel (PCR) - Final Human [place] 10/30/23 01:40 Urine Catheter - Catheter Legionella Antigen - Final 10/30/23 01:40 Urine Catheter - Bland Streptococcus pneumoniae Antigen (M - Final 10/30/23 01:40 Mucosa - Nose SARS-CoV-2, Influenza & RSV (PCR) - Final Goal Trough Goal Trough: 15-20 mcg/mL Pharmacy Plan for Drug Dosing Pharmacy Plan for Drug Dosing: NEW START IV VANCOMYCIN Consulting Physician: Dr. Patel Indication: Pneumonia Goal Trough: 15-20 SrCr: pt is on a dialysis schedule CrCl: Comments: pt received a 2000mg initial dose on 10/31/23 at 0827 Vancomycin Dose: pt received dialysis 10/31/23. pt due to receive dialysis again on 11/01/23, then start a schedule. pt to receive a 750mg x1 dose post dialysis on 3/26/24 Pending Level: random level pre dialysis on 11/03/23 Pharmacy Service will continue to monitor and adjust dosing as required. Follow-Up Labs Follow-Up Labs: Trough: Vancomycin (11/03/23 at 0600 (random level))
[2023-10-31] MEDS: fentaNYL drip 100 ML 5 MCG CONT INF (16:38)
[2023-10-31 18:24] LABS: Bedside Glucose 86 mg/dL (74-106)
[2023-10-31] MEDS: Digoxin 250 MCG/ML Ampul IV (20:29)
[2023-10-31] MEDS: Propofol 10MG/Ml 1,000 MG/100 ML Bottle 13.2 MG CONT INF (20:30)
[2023-10-31] MEDS: BRIMONIDINE 0.2% 5ML BOTTLE 1 DRP OPHTHALMIC (20:32)
[2023-10-31] MEDS: Latanoprost 0.005% 1 Bottle 1 DRP RIGHT EYE (20:32)
[2023-10-31] MEDS: Atorvastatin Calcium 20 MG Tablet GT (20:33)
[2023-10-31 21:07] LABS: Bedside Glucose 80 mg/dL (74-106)
[2023-11-01] VITALS (50 sets, daily range): BP systolic 81–198; BP diastolic 49–126; PULSE 72–143; RESP 14–24; TEMP 36.8–38.4; O2SAT 84–97; BMI 27.8; BMI 27.4
[2023-11-01] MEDS: CHLORHEXIDINE GLUC 2% CLOTH 1 EACH TOWELETTE TOPICAL (01:01)
[2023-11-01] MEDS: Acetaminophen 650 MG/20 ML UDC GT ×2 (01:05→14:26)
[2023-11-01 01:23] LABS: Bedside Glucose 99 mg/dL (74-106)
[2023-11-01] MEDS: Albuterol 2.5 MG/3 ML VIAL.NEB. INHALATION (01:40)
[2023-11-01] MEDS: 0.9% Saline Lock 10 ML Syringe IV ×2 (02:45→12:09)
[2023-11-01] MEDS: Digoxin 250 MCG/ML Ampul IV (02:45)
[2023-11-01 03:03] LABS: Absolute Lymphocyte Count 0.87 X10^3/uL (0.83-4.51); Absolute Neutrophil Count 5.2 X10^3/uL (2.0-7.7); Basophil# 0.03 X10^3/uL; Basophil% 0.5 % (0-1); Eosinophil# 0.01 X10^3/uL; Eosinophils% 0.2 % (0-5); Hematocrit 26.9 % (40-54); Hemoglobin 8.7 g/dL (13.0-16.5); Lymphocyte # 0.87 X10^3/ul (0.83-4.51); Lymphocyte % 13.2 % (19-41); Mean Corp Hgb Conc 32.3 g/dL (32-36); Mean Corpuscular Hgb 31.5 pg (27.0-32.0); Mean Corpuscular Volume 97.5 fL (80-94); Mean Platelet Vol. 11.3 fl (6.2-12.0); Monocyte# 0.36 X10^3/uL; Monocyte% 5.5 % (0-10); NRBC Flagged by Analyzer 0.8 % (0-5); Neutrophil # 5.22 X10^3/uL (2.7-7.7); Neutrophil % 79.4 % (47-70); POSITIVE COUNT YES; Platelet Count 71 K/mm3 (150-450); RBC Distribution Width CV 16.3 % (11.6-14.6); RBC Distribution Width SD 54.9 fl (35.1-43.9); Red Blood Count 2.76 M/mm3 (4.6-6.2); White Blood Count 6.6 K/mm3 (4.4-11.0)
[2023-11-01 03:04] LABS: Differential Indicated SCAN CRITERIA MET
[2023-11-01 03:06] LABS: Differential Comment SCANNED.
[2023-11-01 03:27] LABS: Anion Gap 14 (5-15); BUN 62 mg/dL (7-18); BUN/Creat Ratio 7.7 RATIO (10-20); Calcium,Total 6.9 mg/dL (8.5-10.1); Chloride 104 mmol/L (98-107); Creatinine, Serum 8.05 mg/dL (0.70-1.30); EST Glomerular Filtration Rate 7 mL/min (>60); Est Glom Filt Rate - Afr Amer 9 mL/min (>60); Glucose 126 mg/dL (74-106); Magnesium 1.9 mg/dL (1.6-2.6); Phosphorus 7.4 mg/dL (2.5-4.9); Potassium 4.3 mmol/L (3.5-5.1); Sodium Level 138 mmol/L (136-145)
[2023-11-01] MEDS: Gabapentin 100 MG Capsule GT ×3 (04:59→20:14)
[2023-11-01] MEDS: Propofol 10MG/Ml 1,000 MG/100 ML Bottle 5.3 MG CONT INF (05:05)
[2023-11-01 05:21] LABS: Bedside Glucose 118 mg/dL (74-106)
[2023-11-01] MEDS: TITRATION PARAMETER CHANGE 1 EACH IV (06:28)
[2023-11-01] MEDS: fentaNYL drip 100 ML 5 MCG CONT INF (06:28)
[2023-11-01] MEDS: Budesonide Respules 0.5 MG/2 ML AMPUL.NEB. INHALATION ×2 (06:54→19:35)
--- NOTE | 2023-11-01 07:02 | PCM.PN.INT ---
Assessment & Plan Assessment/Plan (1) CHF exacerbation: QUALIFIERS: Heart failure type: diastolic Qualified Code(s): I50.33 - Acute on chronic diastolic (congestive) heart failure (2) End stage renal disease: (3) Acute respiratory failure: QUALIFIERS: Respiratory failure complication: hypoxia Qualified Code(s): J96.01 - Acute respiratory failure with hypoxia PLAN: Plan RECOMMENDATIONS: 1. Continue empiric antibiotics pending cultures 2. Hemodialysis per nephrology 3. Consider cardiology consult. ?Amiodarone 4. Potentially discontinue antibiotics if culture negative at 48 hours 5. Transfuse blood with hemodialysis 6. Possible GI workup pending response. Hold apixaban IMPRESSIONS: 1. Acute on chronic hypoxic respiratory failure secondary to CHF/reported COPD Patient appears to have multifaceted etiology for respiratory failure. Patient does have significant metabolic acidosis, likely secondary to poor renal clearance. Patient may have an element of bacterial infection, but also tested positive for human metapneumovirus. Patient also appears to be significantly fluid overloaded and would benefit from continued fluid removal. Patient reportedly is on budesonide at baseline, so we will continue this moving forward. Will hold off on systemic steroids for now. Spontaneous breathing and awakening trials per protocol. Patient does not have a PFT to confirm COPD diagnosis. Will continue budesonide for now. If steroids are initiated, this will likely be discontinued. Anticipate metabolic acidosis will have to be addressed before patient will be able to tolerate extubation. Continue with spontaneous breathing trial and awakening trials per protocol 2. Paroxysmal a flutter/volume overload/history of CVA Patient has not had significant hemodialysis in quite some time. Patient now in A-fib with RVR, complicating problem #1. Would defer to primary service, but initiation of amiodarone versus cardiology consult may be appropriate. Patient does have left hemiparesis at baseline. Will hold apixaban as patient has significant anemia. 3. Diabetes mellitus type 2 Hemoglobin A1c is within normal limits. Continue with sliding scale. Okay to continue tube feeds. Blood sugars appear to be adequately controlled at this time. 4. End-stage renal disease with poor compliance Patient reportedly misses several hemodialysis sessions per month. Patient's creatinine is significantly elevated. Patient's blood gas is significant for a metabolic acidosis. Patient does have a tunneled hemodialysis line, so a line infection is a consideration. Patient is on empiric antibiotics pending cultures. 5. Hypertension/GERD/RLS/anxiety/depression/seizure disorder/hyperlipidemia/chronic anemia Complicates care, management, recovery and prognosis. Okay to continue with baseline medications from my perspective. Patient's baseline hemoglobin appears to be approximately 9. Patient appeared to respond appropriately to blood transfusion. Patient currently intubated and sedated. No seizure activity has been noted. Okay to continue with Depakote. TIME: 34 minutes critical care time spent addressing patient's respiratory failure, ESRD, review of all data and collaboration with care team Subjective Subjective Patient did okay overnight. Patient did develop A-fib with RVR during dialysis yesterday. 2.5 L were removed, but patient has had persistent tachycardia throughout the evening. Patient did receive 2 doses of digoxin with little improvement. Patient is tolerating tube feeds. No bleeding has been noted. Patient did not tolerate a spontaneous breathing trial this morning with rapid desaturation Objective Data Objective Data Vital Signs: Vital Signs Temp Pulse Resp BP Pulse Ox O2 Del Method O2 Flow Rate 38.3 C H 128 H 14 94/56 L 93 Mechanical Ventilator 30 11/01/23 07:00 11/01/23 07:00 11/01/23 07:00 11/01/23 07:00 11/01/23 07:00 11/01/23 07:00 10/31/23 08:00 FiO2 30 11/01/23 07:00 Oxygen Flow Rate (L/min) 30 Oxygen Delivery Method Mechanical Ventilator Weight: 88.178 kg Body Mass Index (BMI) 27.8 Intake & Output: Intake and Output for Last 24 Hours 10/30/23 10/31/23 11/01/23 23:59 23:59 23:59 Intake Total 748.10 / 803.55 1635.39 / 1656.09 618.20 / 618.20 Output Total 450 / 550 2815 / 2820 5 / 5 Balance 298.10 / 253.55 -1179.61 / -1163.91 613.20 / 613.20 Lab / Micro Data Attestation: I reviewed the patient's lab results. 11/01/23 02:50 11/01/23 02:50 Labs: Laboratory Results - last 24 hr 10/31/23 04:30: Antibody Screen NEGATIVE, Crossmatch See Detail 10/31/23 06:54: POC Glucose 90 10/31/23 11:53: POC Glucose 79 10/31/23 11:58: Iron 12 L, TIBC 132 L, Iron Saturation 9.1 L, Ferritin 1852 H, Vitamin B12 660, Folate 5.80 10/31/23 14:43: POC Glucose 74 10/31/23 18:07: POC Glucose 86 10/31/23 20:28: POC Glucose 80 11/01/23 00:58: POC Glucose 99 11/01/23 02:50: WBC 6.6, RBC 2.76 L, Hgb 8.7 L, Hct 26.9 L, MCV 97.5 H, MCH 31.5, MCHC 32.3, RDW Std Deviation 54.9 H, RDW Coeff of Silvia 16.3 H, Plt Count 71 L, MPV 11.3, Immature Gran % (Auto) 1.200 H, Neut % (Auto) 79.4 H, Lymph % (Auto) 13.2 L, [place] % (Auto) 5.5, Eos % (Auto) 0.2, Baso % (Auto) 0.5, Absolute Neuts (auto) 5.2, Absolute Lymphs (auto) 0.87, Nucleated RBC % 0.8, Differential Comment SCANNED., Sodium 138, Potassium 4.3, Chloride 104, Carbon Dioxide 20.0 L, Anion Gap 14, BUN 62 H, Creatinine 8.05 H*, Estim Creat Clear Calc 9.70, Est GFR (MDRD) Af Amer 9 L, Est GFR (MDRD) Non-Af 7 L, BUN/Creatinine Ratio 7.7 L, Glucose 126 H, Calcium 6.9 L, Phosphorus 7.4 H, Magnesium 1.9 11/01/23 04:55: POC Glucose 118 H Micro: Microbiology 10/30/23 01:40 Urine, Clean Catch Urine Culture - Final Culture exhibits no growth. 10/30/23 22:40 Sputum, Induced/Lukens Gram Stain - Final 10/30/23 03:00 Mucosa - Nose Respiratory Panel (PCR) - Final Human [place] 10/30/23 01:40 Urine Catheter - Catheter Legionella Antigen - Final 10/30/23 01:40 Urine Catheter - Bland Streptococcus pneumoniae Antigen (M - Final 10/30/23 01:40 Mucosa - Nose SARS-CoV-2, Influenza & RSV (PCR) - Final Rhythm Strip Rhythm Strip: A-fib Rate: 112 Physical Exam Const Constitutional Narrative: Intubated and sedated. RASS -3. Good ventilator synchrony. General Appearance: patient mechanically ventilated HEENT normocephalic and head/scalp atraumatic Eyes conjunctivae normal Neck no lymphadenopathy and supple Lymph Lymphatic: no lymphadenopathy noted and no lymphedema noted Resp Auscultation: wheezes and diminished lung sounds; Negative for rales or rhonchi Cardio S1 normal heart sound, S2 normal heart sound and no murmurs Rate: tachycardic Rhythm: abnormal rhythm irregularly irregular GI normal to inspection, nondistended, normoactive bowel sounds Extremity normal capillary refill, no clubbing, cyanosis or edema and no calf tenderness General Extremity: no tenderness to palpation of joints or extremities Skin Skin Narrative: Tunneled HD cath is clean, dry and intact General Skin Exam: no breakdown Neuro Neuro Narrative: Left-sided hemiparesis Psych Mood & Affect: flat affect Charges/Coding Procedures Hospitalists Procedures: 34815 Critical Care 1st Hr
[2023-11-01] MEDS: Chlorhexidine 15 ML PO ×2 (10:05→20:16)
[2023-11-01] MEDS: PureFlow B 2K Dialysis Soln 1 BAG 6 BAG PF (10:56)
[2023-11-01] MEDS: 0.9% Normal Saline 1,000 ML IV.SOLN. 1000 ML OPERA.SITE (10:56)
[2023-11-01 11:29] LABS: Bedside Glucose 110 mg/dL (74-106)
--- NOTE | 2023-11-01 11:42 | PCM.PN.HOSP ---
Reason for Visit Reason for Visit: Diagnoses Acute on chronic diastolic (congestive) heart failure (10/30/23) Heart failure, unspecified (10/30/23) Pneumonia, unspecified organism (10/30/23) Acute respiratory failure with hypoxia (10/30/23) End stage renal disease (10/30/23) Subjective Subjective Overnight patient had significant A-fib with RVR with heart rates consistently in the 140s to 150s. He received 2 doses of digoxin with some improvement. Patient seen at bedside this morning. Remains intubated and sedated, not following commands. He was having hemodialysis run when I evaluated him. His heart rate had converted back to sinus rhythm about 30 minutes to an hour prior to my arrival and heart rate was maintaining in the 80s during my evaluation. Per dialysis nurse at bedside, patient tolerating dialysis without any issues. Objective Data Objective Data Vital Signs: Vital Signs Temp Pulse Resp BP Pulse Ox O2 Del Method O2 Flow Rate 99.6 F H 92 15 138/55 H 90 Mechanical Ventilator 30 11/01/23 11:15 11/01/23 11:15 11/01/23 11:15 11/01/23 11:15 11/01/23 11:15 11/01/23 11:15 10/31/23 08:00 FiO2 30 11/01/23 11:15 Oxygen Flow Rate (L/min) 30 Oxygen Delivery Method Mechanical Ventilator Weight: 88.178 kg Body Mass Index (BMI) 27.8 Intake & Output: Intake and Output for Last 24 Hours 10/30/23 10/31/23 11/01/23 23:59 23:59 23:59 Intake Total 748.10 / 803.55 1635.39 / 1656.09 789.48 / 789.48 Output Total 450 / 550 2815 / 2820 Balance 298.10 / 253.55 -1179.61 / -1163.91 779.48 / 779.48 Lab / Micro Data 11/01/23 02:50 11/01/23 02:50 Labs: Laboratory Results - last 24 hr 10/31/23 04:30: Antibody Screen NEGATIVE, Crossmatch See Detail 10/31/23 11:53: POC Glucose 79 10/31/23 11:58: Iron 12 L, TIBC 132 L, Iron Saturation 9.1 L, Ferritin 1852 H, Vitamin B12 660, Folate 5.80 10/31/23 14:43: POC Glucose 74 10/31/23 18:07: POC Glucose 86 10/31/23 20:28: POC Glucose 80 11/01/23 00:58: POC Glucose 99 11/01/23 02:50: WBC 6.6, RBC 2.76 L, Hgb 8.7 L, Hct 26.9 L, MCV 97.5 H, MCH 31.5, MCHC 32.3, RDW Std Deviation 54.9 H, RDW Coeff of Silvia 16.3 H, Plt Count 71 L, MPV 11.3, Immature Gran % (Auto) 1.200 H, Neut % (Auto) 79.4 H, Lymph % (Auto) 13.2 L, [place] % (Auto) 5.5, Eos % (Auto) 0.2, Baso % (Auto) 0.5, Absolute Neuts (auto) 5.2, Absolute Lymphs (auto) 0.87, Nucleated RBC % 0.8, Differential Comment SCANNED., Sodium 138, Potassium 4.3, Chloride 104, Carbon Dioxide 20.0 L, Anion Gap 14, BUN 62 H, Creatinine 8.05 H*, Estim Creat Clear Calc 9.70, Est GFR (MDRD) Af Amer 9 L, Est GFR (MDRD) Non-Af 7 L, BUN/Creatinine Ratio 7.7 L, Glucose 126 H, Calcium 6.9 L, Phosphorus 7.4 H, Magnesium 1.9 11/01/23 04:55: POC Glucose 118 H 11/01/23 11:08: POC Glucose 110 H Micro: Microbiology 10/30/23 01:45 Blood Culture (Wb) - Right Wrist Blood Culture - Preliminary No growth in 48 hours. 10/30/23 01:20 Blood Culture (Wb) - Venous Blood Culture - Preliminary No growth in 48 hours. 10/30/23 22:40 Sputum, Induced/Lukens Gram Stain - Final 10/30/23 22:40 Sputum, Induced/Lukens Respiratory Culture - Preliminary Appears to be normal respiratory devon. Further studies to follow. 10/30/23 01:40 Urine, Clean Catch Urine Culture - Final Culture exhibits no growth. 10/30/23 03:00 Mucosa - Nose Respiratory Panel (PCR) - Final Human [place] 10/30/23 01:40 Urine Catheter - Catheter Legionella Antigen - Final 10/30/23 01:40 Urine Catheter - Bland Streptococcus pneumoniae Antigen (M - Final 10/30/23 01:40 Mucosa - Nose SARS-CoV-2, Influenza & RSV (PCR) - Final Rhythm Strip Rhythm Strip: A-fib Rate: 112 Physical Exam Const Constitutional Narrative: Intubated and sedated, not following commands. HEENT normocephalic, head/scalp atraumatic and nasal mucous membranes and turbinates normal Chest inspection of chest normal Resp normal respiratory effort and no use of accessory muscles Resp Narrative: Decreased breath sounds bilaterally throughout with mild crackles noted. No wheezing noted. Cardio regular rate, regular rhythm, no murmurs and peripheral pulses 2+ throughout GI normal to inspection, nondistended, normoactive bowel sounds, soft to palpation, non-tender and non-distended Extremity normal to inspection and no clubbing, cyanosis or edema Skin no rashes or lesions noted Assessment & Plan Assessment/Plan (1) Acute respiratory failure: QUALIFIERS: Respiratory failure complication: hypoxia Qualified Code(s): J96.01 - Acute respiratory failure with hypoxia (2) End stage renal disease: (3) Pneumonia: PLAN: Plan Patient is a 63-year-old male who presented to [facility] ED on 10/30/2023 with worsening dyspnea and hypoxia. 1. Acute on chronic hypoxic respiratory failure ? Ring Sorter following. Suspect multifactorial in setting of volume overload from missed HD sessions, human metapneumovirus infection and possible superimposed bacterial infection. Currently intubated and sedated, on low vent settings. Had HD done on 10/30 and again on morning of 10/31 with good volume removal. However, failed SAT/SBT on morning of 10/31. Appreciate retail parts pro recs regarding further SAT/SBT trials and attempt at extubation in the next few days. 2. Human metapneumovirus infection, concern for superimposed bacterial infection ? Ring Sorter following as above. Positive for human metapneumovirus on admit. Chest x-ray shows scattered bilateral airspace opacities consistent with pneumonia. Negative Gram stain, urine antigens negative, respiratory culture negative, blood cultures with no growth at 48 hours. Procalcitonin 0.42, upper limit of normal. Discontinued IV antibiotics on 10/31. No need for IV steroids per retail parts pro. Continue home budesonide. 3. ESRD on HD with frequent missed HD sessions, metabolic acidosis ? Nephrology following. Patient on Tuesday schedule but apparently frequently misses sessions and usually goes when he has volume overload causing worsening hypoxia. Metabolic acidosis presumed secondary to ESRD. Had HD sessions on 10/30 and 10/31 for volume removal. Appreciate nephrology recs. 4. Acute on chronic anemia ? Hemoglobin 9.0 on admit, down trended to 7.9 shortly after with IV fluids. Downtrended again to hemoglobin 6.8 on 10/30. No overt signs of bleeding noted. Baseline hemoglobin appears to be around 9-10. Iron studies show ferritin 1852, consistent with anemia of chronic disease. Transfused 1 unit of packed red blood cells on 10/30, repeat hemoglobin 8.7. Suspect hemoglobin of 6.8 was from some degree of hemodilution due to volume overload prior to dialysis. Continue to hold home Eliquis for today but if hemoglobin remains stable tomorrow, will likely plan to restart Eliquis. 5. Paroxysmal A-fib/flutter with RVR ? Patient noted to flip into A-fib with RVR on the evening of 10/30 after first HD session. Had heart rates in the 140s to 150s fairly consistently. Was given 2 doses of digoxin with only mild improvement. Flipped back into normal sinus rhythm with heart rate in the 80s on morning of 10/31 during dialysis session. Patient was noted to have mildly low BPs after first HD session, suspect that he may has had slightly too much volume removed leading to hypotension and worsening A-fib with RVR. BP much improved on 10/31 as well. Continue home Lopressor. Holding home Eliquis as noted above. Continue cardiac monitoring. Chronic medical conditions: ? Type 2 diabetes mellitus: Reported history of diabetes, not currently on home medication. A1c 5.0% on admit. Okay for sliding-scale insulin every 4 hours with tube feeds as needed. ? History of CVA with left sided hemiparesis ? Hypertension: Continue home Lopressor, amlodipine. ? Hyperlipidemia: Continue home statin. ? Anxiety/depression/RLS: Continue home gabapentin. ? Paroxysmal A-fib/flutter on Eliquis: Holding home Eliquis as noted above. Continue home Lopressor. ? Seizure disorder: Continue home Depakote. DVT prophylaxis: SCDs CODE STATUS: Full code, verified Expected disposition: TBD Total clinical time spent by myself addressing the patient's medical issues, reviewing all the data, and collaborating with patient's care team: 35 minutes. Charges/Coding Visit Charges Inpatient E&M: 12871 Subs Hosp L2
[2023-11-01] MEDS: Heparin 10,000 UNITS/10 ML Vial IV (12:09)
[2023-11-01] MEDS: Divalproex Sodium 125 MG SPRINKLE 1000 MG NG ×2 (12:24→20:14)
[2023-11-01] MEDS: amLODIPine 10 MG Tablet GT (12:25)
[2023-11-01] MEDS: Metoprolol Tartrate 25 MG Tablet GT (12:25)
[2023-11-01] MEDS: Pantoprazole Sodium 40 MG in 0.9% Normal Saline (100mL MB+) 100 ML 330 MG IV (12:31)
[2023-11-01] MEDS: Propofol 10MG/Ml 1,000 MG/100 ML Bottle 7.9 MG CONT INF ×2 (14:17→23:38)
[2023-11-01] MEDS: NEPRO TUBE FEED 1,000 ML 50 ML GT (14:19)
--- NOTE | 2023-11-01 18:07 | PN.RENAL_ITS ---
Subjective Subjective Seen on dialysis today Objective Data Objective Data Vital Signs: Vital Signs Temp Pulse Resp BP Pulse Ox O2 Del Method O2 Flow Rate 100.1 F H 77 14 123/52 H 93 Mechanical Ventilator 30 11/01/23 17:00 11/01/23 17:31 11/01/23 17:31 11/01/23 17:00 11/01/23 17:31 11/01/23 17:00 10/31/23 08:00 FiO2 30 11/01/23 17:31 Oxygen Flow Rate (L/min) 30 Oxygen Delivery Method Mechanical Ventilator Weight: 87 kg Body Mass Index (BMI) 27.4 Intake & Output: Intake and Output for Last 24 Hours 10/30/23 10/31/23 11/01/23 23:59 23:59 23:59 Intake Total 748.10 / 803.55 1635.39 / 1656.09 1467.06 / 1467.06 Output Total 450 / 550 2815 / 2820 1760 / 1760 Balance 298.10 / 253.55 -1179.61 / -1163.91 -292.94 / -292.94 Lab / Micro Data 11/01/23 02:50 11/01/23 02:50 Labs: Laboratory Results - last 24 hr 10/31/23 18:07: POC Glucose 86 10/31/23 20:28: POC Glucose 80 11/01/23 00:58: POC Glucose 99 11/01/23 02:50: WBC 6.6, RBC 2.76 L, Hgb 8.7 L, Hct 26.9 L, MCV 97.5 H, MCH 31.5, MCHC 32.3, RDW Std Deviation 54.9 H, RDW Coeff of Silvia 16.3 H, Plt Count 71 L, MPV 11.3, Immature Gran % (Auto) 1.200 H, Neut % (Auto) 79.4 H, Lymph % (Auto) 13.2 L, [place] % (Auto) 5.5, Eos % (Auto) 0.2, Baso % (Auto) 0.5, Absolute Neuts (auto) 5.2, Absolute Lymphs (auto) 0.87, Nucleated RBC % 0.8, Differential Comment SCANNED., Sodium 138, Potassium 4.3, Chloride 104, Carbon Dioxide 20.0 L , Anion Gap 14, BUN 62 H, Creatinine 8.05 H*, Estim Creat Clear Calc 9.70, Est GFR (MDRD) Af Amer 9 L, Est GFR (MDRD) Non-Af 7 L, BUN/Creatinine Ratio 7.7 L, Glucose 126 H, Calcium 6.9 L, Phosphorus 7.4 H, Magnesium 1.9 11/01/23 04:55: POC Glucose 118 H 11/01/23 11:08: POC Glucose 110 H Micro: Microbiology 10/30/23 01:45 Blood Culture (Wb) - Right Wrist Blood Culture - Preliminary No growth in 48 hours. 10/30/23 01:20 Blood Culture (Wb) - Venous Blood Culture - Preliminary No growth in 48 hours. 10/30/23 22:40 Sputum, Induced/Lukens Gram Stain - Final 10/30/23 22:40 Sputum, Induced/Lukens Respiratory Culture - Preliminary Appears to be normal respiratory devon. Further studies to follow. 10/30/23 01:40 Urine, Clean Catch Urine Culture - Final Culture exhibits no growth. 10/30/23 03:00 Mucosa - Nose Respiratory Panel (PCR) - Final Human [place] 10/30/23 01:40 Urine Catheter - Catheter Legionella Antigen - Final 10/30/23 01:40 Urine Catheter - Bland Streptococcus pneumoniae Antigen (M - Final 10/30/23 01:40 Mucosa - Nose SARS-CoV-2, Influenza & RSV (PCR) - Final Rhythm Strip Rhythm Strip: A-fib Rate: 112 Physical Exam Narrative Intubated no obvious distress no pallor no icterus no JVD s1s2 no murmurs abdomen soft no organomegaly no edema no cyanosis Assessment & Plan Assessment/Plan (1) End stage renal disease: PLAN: On hemodialysis Tuesday, , Tuesday schedule. Recently he has been going on late Tuesday and Tuesday. Last dialysis was Tuesday. Seen on dialysis today. High-grade fevers. Respiratory panel positive for metapneumovirus. Long-term dialysis catheter. Also has a fistula which he did not allow us to c annulate due to pain.
[2023-11-01 18:14] LABS: Bedside Glucose 132 mg/dL (74-106)
[2023-11-01] MEDS: fentaNYL drip 100 ML 7.5 MCG CONT INF (20:00)
[2023-11-01] MEDS: Atorvastatin Calcium 20 MG Tablet GT (20:14)
[2023-11-01] MEDS: Latanoprost 0.005% 1 Bottle 1 DRP RIGHT EYE (20:15)
[2023-11-01] MEDS: BRIMONIDINE 0.2% 5ML BOTTLE 1 DRP OPHTHALMIC (20:16)
[2023-11-02] VITALS (35 sets, daily range): BP systolic 124–174; BP diastolic 57–75; PULSE 71–83; RESP 10–20; TEMP 36.5–37.1; O2SAT 91–100; BMI 27.9
[2023-11-02 00:10] LABS: Bedside Glucose 113 mg/dL (74-106)
[2023-11-02 03:42] LABS: Absolute Lymphocyte Count 0.41 X10^3/uL (0.83-4.51); Absolute Neutrophil Count 3.8 X10^3/uL (2.0-7.7); Basophil# 0.03 X10^3/uL; Basophil% 0.6 % (0-1); Eosinophil# 0.03 X10^3/uL; Eosinophils% 0.6 % (0-5); Hematocrit 25.8 % (40-54); Hemoglobin 8.5 g/dL (13.0-16.5); Lymphocyte # 0.41 X10^3/ul (0.83-4.51); Lymphocyte % 8.8 % (19-41); Mean Corp Hgb Conc 32.9 g/dL (32-36); Mean Platelet Vol. 11.4 fl (6.2-12.0); Monocyte# 0.34 X10^3/uL; Monocyte% 7.3 % (0-10); NRBC Flagged by Analyzer 0.9 % (0-5); Neutrophil # 3.75 X10^3/uL (2.7-7.7); Neutrophil % 80.8 % (47-70); POSITIVE COUNT YES; POSITIVE DIFFERENTIAL YES; Platelet Count 81 K/mm3 (150-450); RBC Distribution Width CV 15.9 % (11.6-14.6); RBC Distribution Width SD 53.7 fl (35.1-43.9); Red Blood Count 2.66 M/mm3 (4.6-6.2); White Blood Count 4.7 K/mm3 (4.4-11.0)
[2023-11-02 03:58] LABS: Differential Indicated SCAN CRITERIA MET
[2023-11-02 04:16] LABS: Anion Gap 11 (5-15); BUN 54 mg/dL (7-18); BUN/Creat Ratio 8.6 RATIO (10-20); Calcium,Total 6.7 mg/dL (8.5-10.1); Chloride 106 mmol/L (98-107); Creatinine, Serum 6.29 mg/dL (0.70-1.30); EST Glomerular Filtration Rate 10 mL/min (>60); Est Glom Filt Rate - Afr Amer 12 mL/min (>60); Estimated Creatinine Clearance 13.47 ml/min; Glucose 131 mg/dL (74-106); Potassium 3.7 mmol/L (3.5-5.1); Sodium Level 138 mmol/L (136-145)
[2023-11-02 04:44] LABS: Differential Comment SCANNED
[2023-11-02] MEDS: 0.9% Saline Lock 10 ML Syringe IV (04:55)
[2023-11-02] MEDS: Gabapentin 100 MG Capsule GT ×3 (04:55→20:41)
[2023-11-02] MEDS: TITRATION PARAMETER CHANGE 1 EACH IV (04:55)
[2023-11-02] MEDS: CHLORHEXIDINE GLUC 2% CLOTH 1 EACH TOWELETTE TOPICAL ×2 (04:55→21:26)
[2023-11-02 05:24] LABS: Bedside Glucose 108 mg/dL (74-106)
[2023-11-02] MEDS: Budesonide Respules 0.5 MG/2 ML AMPUL.NEB. INHALATION (06:52)
--- NOTE | 2023-11-02 07:37 | PCM.PN.INT ---
Assessment & Plan Assessment/Plan (1) CHF exacerbation: QUALIFIERS: Heart failure type: diastolic Qualified Code(s): I50.33 - Acute on chronic diastolic (congestive) heart failure (2) End stage renal disease: (3) Acute respiratory failure: QUALIFIERS: Respiratory failure complication: hypoxia Qualified Code(s): J96.01 - Acute respiratory failure with hypoxia PLAN: Plan RECOMMENDATIONS: 1. Monitor clinically off antibiotics 2. Hemodialysis per nephrology 3. Continue to monitor for A-fib 4. Continue to hold Eliquis pending GI workup 5. Transfuse blood with hemodialysis 6. Continue spontaneous breathing and awakening trials per protocol 7. Likely transition to systemic steroids if fail spontaneous breathing trial tomorrow IMPRESSIONS: 1. Acute on chronic hypoxic respiratory failure secondary to CHF/reported COPD Patient appears to have multifaceted etiology for respiratory failure. Patient does have significant metabolic acidosis, likely secondary to poor renal clearance. Patient may have an element of bacterial infection, but also tested positive for human metapneumovirus. Patient also appears to be significantly fluid overloaded and would benefit from continued fluid removal. Patient reportedly is on budesonide at baseline, so we will continue this moving forward. Will hold off on systemic steroids for now. Spontaneous breathing and awakening trials per protocol. Patient does not have a PFT to confirm COPD diagnosis. Patient has not responded to 2 hemodialysis sessions. May need to start systemic steroids tomorrow if fails. Continue with spontaneous breathing trial and awakening trials per protocol 2. Paroxysmal a flutter/volume overload/history of CVA Patient has not had significant hemodialysis in quite some time. Patient now in sinus rhythm. Would continue to hold Eliquis given guaiac positive stools. Patient does have left hemiparesis at baseline. Will hold apixaban as patient has significant anemia. 3. Diabetes mellitus type 2 Hemoglobin A1c is within normal limits. Continue with sliding scale. Okay to continue tube feeds. Blood sugars appear to be adequately controlled at this time. 4. End-stage renal disease with poor compliance Patient reportedly misses several hemodialysis sessions per month. Patient's creatinine is significantly elevated. Patient's blood gas is significant for a metabolic acidosis at presentation. Patient does have a tunneled hemodialysis line, so a line infection is a consideration. Monitor clinically for sepsis as blood cultures are negative 5. Hypertension/GERD/RLS/anxiety/depression/seizure disorder/hyperlipidemia/chronic anemia Complicates care, management, recovery and prognosis. Okay to continue with baseline medications from my perspective. Patient's baseline hemoglobin appears to be approximately 9. Patient appeared to respond appropriately to blood transfusion. Patient currently intubated and sedated. No seizure activity has been noted. Okay to continue with Depakote. Continue to hold anticoagulation pending GI workup TIME: 35 minutes critical care time spent addressing patient's respiratory failure, ESRD, review of all data and collaboration with care team Subjective Subjective Patient did okay overnight from a hemodynamic standpoint. No pressors have been required. Patient did have a significant fever of 38.4 ?C. Patient was found to be guaiac positive, but no black stools have been noted. Patient did tolerate hemodialysis yesterday with 1.75 L removed. Patient unable to tolerate spontaneous breathing trial this morning secondary to tachypnea and hypoxia. Objective Data Objective Data Vital Signs: Vital Signs Temp Pulse Resp BP Pulse Ox O2 Del Method O2 Flow Rate 36.8 C 75 14 137/60 H 94 Mechanical Ventilator 30 11/02/23 06:00 11/02/23 06:52 11/02/23 06:52 11/02/23 06:00 11/02/23 06:52 11/02/23 06:52 10/31/23 08:00 FiO2 30 11/02/23 06:52 Oxygen Flow Rate (L/min) 30 Oxygen Delivery Method Mechanical Ventilator Weight: 88.6 kg Body Mass Index (BMI) 27.9 Intake & Output: Intake and Output for Last 24 Hours 10/31/23 11/01/23 11/02/23 23:59 23:59 23:59 Intake Total 1635.39 / 1656.09 1728.44 / 1738.84 848.50 / 848.50 Output Total 2815 / 2820 1760 / 1765 5 / 5 Balance -1179.61 / -1163.91 -31.56 / -26.16 843.50 / 843.50 Lab / Micro Data Attestation: I reviewed the patient's lab results. 11/02/23 03:30 11/02/23 03:30 Labs: Laboratory Results - last 24 hr 11/01/23 11:08: POC Glucose 110 H 11/01/23 17:56: POC Glucose 132 H 11/01/23 23:35: POC Glucose 113 H 11/02/23 03:30: WBC 4.7, RBC 2.66 L, Hgb 8.5 L, Hct 25.8 L, MCV 97.0 H, MCH 32.0, MCHC 32.9, RDW Std Deviation 53.7 H, RDW Coeff of Silvia 15.9 H, Plt Count 81 L, MPV 11.4, Immature Gran % (Auto) 1.900 H, Neut % (Auto) 80.8 H, Lymph % (Auto) 8.8 L, [place] % (Auto) 7.3, Eos % (Auto) 0.6, Baso % (Auto) 0.6, Absolute Neuts (auto) 3.8, Absolute Lymphs (auto) 0.41 L, Nucleated RBC % 0.9, Differential Comment SCANNED, Sodium 138, Potassium 3.7, Chloride 106, Carbon Dioxide 21.0, Anion Gap 11, BUN 54 H, Creatinine 6.29 H, Estim Creat Clear Calc 13.47, Est GFR (MDRD) Af Amer 12 L, Est GFR (MDRD) Non-Af 10 L, BUN/Creatinine Ratio 8.6 L, Glucose 131 H, Calcium 6.7 L 11/02/23 04:54: POC Glucose 108 H Micro: Microbiology 11/01/23 20:30 Stool Stool Occult Blood (EMILY) - Final Occult Blood Positive 10/30/23 01:45 Blood Culture (Wb) - Right Wrist Blood Culture - Preliminary No growth in 48 hours. 10/30/23 01:20 Blood Culture (Wb) - Venous Blood Culture - Preliminary No growth in 48 hours. 10/30/23 22:40 Sputum, Induced/Lukens Gram Stain - Final 10/30/23 22:40 Sputum, Induced/Lukens Respiratory Culture - Preliminary Appears to be normal respiratory devon. Further studies to follow. 10/30/23 01:40 Urine, Clean Catch Urine Culture - Final Culture exhibits no growth. 10/30/23 03:00 Mucosa - Nose Respiratory Panel (PCR) - Final Human [place] 10/30/23 01:40 Urine Catheter - Catheter Legionella Antigen - Final 10/30/23 01:40 Urine Catheter - Bland Streptococcus pneumoniae Antigen (M - Final 10/30/23 01:40 Mucosa - Nose SARS-CoV-2, Influenza & RSV (PCR) - Final Rhythm Strip Rhythm Strip: Sinus Rhythm Rate: 80 Physical Exam Const Constitutional Narrative: Intubated and sedated. RASS -1. Good ventilator synchrony. General Appearance: patient mechanically ventilated HEENT normocephalic and head/scalp atraumatic Eyes conjunctivae normal Neck no lymphadenopathy and supple Lymph Lymphatic: no lymphadenopathy noted and no lymphedema noted Resp Auscultation: diminished lung sounds; Negative for rales, rhonchi or wheezes Cardio regular rate, regular rhythm, S1 normal heart sound, S2 normal heart sound and no murmurs GI normal to inspection, nondistended, normoactive bowel sounds Extremity normal capillary refill, no clubbing, cyanosis or edema and no calf tenderness General Extremity: no tenderness to palpation of joints or extremities Skin Skin Narrative: Tunneled HD cath is clean, dry and intact General Skin Exam: no breakdown Neuro Neuro Narrative: Left-sided hemiparesis Psych Mood & Affect: flat affect Charges/Coding Procedures Hospitalists Procedures: 31489 Critical Care 1st Hr
[2023-11-02] MEDS: Chlorhexidine 15 ML PO ×2 (08:05→20:54)
[2023-11-02] MEDS: Divalproex Sodium 125 MG SPRINKLE 1000 MG NG ×2 (08:05→20:41)
[2023-11-02] MEDS: BRIMONIDINE 0.2% 5ML BOTTLE 1 DRP OPHTHALMIC ×2 (08:05→20:41)
[2023-11-02] MEDS: amLODIPine 10 MG Tablet GT (08:06)
[2023-11-02] MEDS: Metoprolol Tartrate 25 MG Tablet GT (08:06)
[2023-11-02] MEDS: Latanoprost 0.005% 1 Bottle 1 DRP RIGHT EYE ×2 (08:06→20:41)
[2023-11-02] MEDS: Pantoprazole Sodium 40 MG in 0.9% Normal Saline (100mL MB+) 100 ML 330 MG IV (08:06)
--- NOTE | 2023-11-02 11:24 | PCM.PN.HOSP ---
Reason for Visit Reason for Visit: Diagnoses Acute on chronic diastolic (congestive) heart failure (10/30/23) Heart failure, unspecified (10/30/23) Pneumonia, unspecified organism (10/30/23) Acute respiratory failure with hypoxia (10/30/23) End stage renal disease (10/30/23) Subjective Subjective No acute events overnight. Patient seen at bedside this morning. Remains intubated and sedated, opening eyes weakly to voice but not following any commands. Objective Data Objective Data Vital Signs: Vital Signs Temp Pulse Resp BP Pulse Ox O2 Del Method O2 Flow Rate 98.6 F 74 14 129/58 H 95 Mechanical Ventilator 11/02/23 10:00 11/02/23 10:00 11/02/23 10:00 11/02/23 10:00 11/02/23 10:00 11/02/23 10:00 10/31/23 08:00 FiO2 30 11/02/23 10:00 Oxygen Flow Rate (L/min) 30 Oxygen Delivery Method Mechanical Ventilator Weight: 88.6 kg Body Mass Index (BMI) 27.9 Intake & Output: Intake and Output for Last 24 Hours 10/31/23 11/01/23 11/02/23 23:59 23:59 23:59 Intake Total 1635.39 / 1656.09 1728.44 / 1738.84 1161.08 / 1161.08 Output Total 2815 / 2820 1760 / 1765 5 / 5 Balance -1179.61 / -1163.91 -31.56 / -26.16 1156.08 / 1156.08 Lab / Micro Data 11/02/23 03:30 11/02/23 03:30 Labs: Laboratory Results - last 24 hr 11/01/23 11:08: POC Glucose 110 H 11/01/23 17:56: POC Glucose 132 H 11/01/23 23:35: POC Glucose 113 H 11/02/23 03:30: WBC 4.7, RBC 2.66 L, Hgb 8.5 L, Hct 25.8 L, MCV 97.0 H, MCH 32.0, MCHC 32.9, RDW Std Deviation 53.7 H, RDW Coeff of Silvia 15.9 H, Plt Count 81 L, MPV 11.4, Immature Gran % (Auto) 1.900 H, Neut % (Auto) 80.8 H, Lymph % (Auto) 8.8 L, [place] % (Auto) 7.3, Eos % (Auto) 0.6, Baso % (Auto) 0.6, Absolute Neuts (auto) 3.8, Absolute Lymphs (auto) 0.41 L, Nucleated RBC % 0.9, Differential Comment SCANNED, Sodium 138, Potassium 3.7, Chloride 106, Carbon Dioxide 21.0, Anion Gap 11, BUN 54 H, Creatinine 6.29 H, Estim Creat Clear Calc 13.47, Est GFR (MDRD) Af Amer 12 L, Est GFR (MDRD) Non-Af 10 L, BUN/Creatinine Ratio 8.6 L, Glucose 131 H, Calcium 6.7 L 11/02/23 04:54: POC Glucose 108 H Micro: Microbiology 10/30/23 22:40 Sputum, Induced/Lukens Gram Stain - Final 10/30/23 22:40 Sputum, Induced/Lukens Respiratory Culture - Preliminary Yeast Like Organism 11/01/23 20:30 Stool Stool Occult Blood (EMILY) - Final Occult Blood Positive 10/30/23 01:45 Blood Culture (Wb) - Right Wrist Blood Culture - Preliminary No growth in 48 hours. 10/30/23 01:20 Blood Culture (Wb) - Venous Blood Culture - Preliminary No growth in 48 hours. 10/30/23 01:40 Urine, Clean Catch Urine Culture - Final Culture exhibits no growth. 10/30/23 03:00 Mucosa - Nose Respiratory Panel (PCR) - Final Human [place] 10/30/23 01:40 Urine Catheter - Catheter Legionella Antigen - Final 10/30/23 01:40 Urine Catheter - Bland Streptococcus pneumoniae Antigen (M - Final 10/30/23 01:40 Mucosa - Nose SARS-CoV-2, Influenza & RSV (PCR) - Final Rhythm Strip Rhythm Strip: Sinus Rhythm Rate: 80 Physical Exam Const Constitutional Narrative: Intubated and sedated, opening eyes weakly to voice but not following commands. HEENT normocephalic, head/scalp atraumatic and nasal mucous membranes and turbinates normal Chest inspection of chest normal Resp normal respiratory effort and no use of accessory muscles Resp Narrative: Decreased breath sounds bilaterally throughout with mild crackles noted. No wheezing noted. Cardio regular rate, regular rhythm, no murmurs and peripheral pulses 2+ throughout GI normal to inspection, nondistended, normoactive bowel sounds, soft to palpation, non-tender and non-distended Extremity normal to inspection and no clubbing, cyanosis or edema Skin no rashes or lesions noted Assessment & Plan Assessment/Plan (1) Acute respiratory failure: QUALIFIERS: Respiratory failure complication: hypoxia Qualified Code(s): J96.01 - Acute respiratory failure with hypoxia (2) End stage renal disease: (3) Pneumonia: PLAN: Plan Patient is a 63-year-old male who presented to [facility] ED on 10/30/2023 with worsening dyspnea and hypoxia. 1. Acute on chronic hypoxic respiratory failure ? Night Stocker following. Suspect multifactorial in setting of volume overload from missed HD sessions, human metapneumovirus infection and possible superimposed bacterial infection. Currently intubated and sedated, on fairly low vent settings. Antibiotics discontinued on 10/31 as noted below. Patient unfortunately has not had any meaningful response from respiratory standpoint after 2 sessions of dialysis, continues to fail SAT/SBT trials. Per party plan dealer, may need to consider starting systemic steroids tomorrow if again patient has no improvement. 2. Human metapneumovirus infection, concern for superimposed bacterial infection ? Night Stocker following as above. Positive for human metapneumovirus on admit. Chest x-ray shows scattered bilateral airspace opacities consistent with pneumonia. Negative Gram stain, urine antigens negative, respiratory culture negative, blood cultures with no growth at 48 hours. Procalcitonin 0.42, upper limit of normal. Discontinued IV antibiotics on 10/31. Continue home budesonide. Considering starting systemic steroids tomorrow as noted above. 3. ESRD on HD with frequent missed HD sessions, metabolic acidosis ? Nephrology following. Patient on Tuesday schedule but apparently frequently misses sessions and usually goes when he has volume overload causing worsening hypoxia. Metabolic acidosis presumed secondary to ESRD. Had HD sessions on 10/30 and 10/31 for volume removal. Per nephrology, planning to continue schedule for HD going forward. 4. Acute on chronic anemia ? Hemoglobin 9.0 on admit, down trended to 7.9 shortly after with IV fluids. Downtrended again to hemoglobin 6.8 on 10/30. No overt signs of bleeding noted. Baseline hemoglobin appears to be around 9-10. Iron studies show ferritin 1852, consistent with anemia of chronic disease. Transfused 1 unit of packed red blood cells on 10/30, repeat hemoglobin 8.7. Hemoglobin stable on 11/01, however is Hemoccult positive. GI consulted for further recs. Continue to hold Eliquis. 5. Paroxysmal A-fib/flutter with RVR ? Patient noted to flip into A-fib with RVR on the evening of 10/30 after first HD session. Had heart rates in the 140s to 150s fairly consistently. Was given 2 doses of digoxin with only mild improvement. Flipped back into normal sinus rhythm with heart rate in the 80s on morning of 10/31 during dialysis session. Patient was noted to have mildly low BPs after first HD session, suspect that he may has had slightly too much volume removed leading to hypotension and worsening A-fib with RVR. BP much improved on 10/31 as well. Continue home Lopressor. Holding home Eliquis as noted above. Continue cardiac monitoring. Chronic medical conditions: ? Type 2 diabetes mellitus: Reported history of diabetes, not currently on home medication. A1c 5.0% on admit. Okay for sliding-scale insulin every 4 hours with tube feeds as needed. ? History of CVA with left sided hemiparesis ? Hypertension: Continue home Lopressor, amlodipine. ? Hyperlipidemia: Continue home statin. ? Anxiety/depression/RLS: Continue home gabapentin. ? Paroxysmal A-fib/flutter on Eliquis: Holding home Eliquis as noted above. Continue home Lopressor. ? Seizure disorder: Continue home Depakote. DVT prophylaxis: SCDs CODE STATUS: Full code, verified Expected disposition: TBD Total clinical time spent by myself addressing the patient's medical issues, reviewing all the data, and collaborating with patient's care team: 35 minutes. Charges/Coding Visit Charges Inpatient E&M: 17245 Subs Hosp L2
[2023-11-02] MEDS: Propofol 10MG/Ml 1,000 MG/100 ML Bottle 8 MG CONT INF ×2 (11:33→20:54)
[2023-11-02] MEDS: fentaNYL drip 100 ML 5 MCG CONT INF (11:33)
[2023-11-02] MEDS: NEPRO TUBE FEED 1,000 ML 50 ML GT (11:34)
[2023-11-02 12:10] LABS: Bedside Glucose 124 mg/dL (74-106)
--- NOTE | 2023-11-02 13:19 | PCM.PN.REN ---
Subjective Subjective No new events. Still intubated. Objective Data Objective Data Vital Signs: Vital Signs Temp Pulse Resp BP Pulse Ox O2 Del Method O2 Flow Rate 98.6 F 74 14 138/61 H 95 Mechanical Ventilator 11/02/23 13:00 11/02/23 13:00 11/02/23 13:00 11/02/23 13:00 11/02/23 13:00 11/02/23 13:00 10/31/23 08:00 FiO2 30 11/02/23 13:00 Oxygen Flow Rate (L/min) 30 Oxygen Delivery Method Mechanical Ventilator Weight: 88.6 kg Body Mass Index (BMI) 27.9 Intake & Output: Intake and Output for Last 24 Hours 10/31/23 11/01/23 11/02/23 23:59 23:59 23:59 Intake Total 1635.39 / 1656.09 1728.44 / 1738.84 1813.16 / 1813.16 Output Total 2815 / 2820 1760 / 1765 10 / 10 Balance -1179.61 / -1163.91 -31.56 / -26.16 1803.16 / 1803.16 Lab / Micro Data 11/02/23 03:30 11/02/23 03:30 Labs: Laboratory Results - last 24 hr 11/01/23 17:56: POC Glucose 132 H 11/01/23 23:35: POC Glucose 113 H 11/02/23 03:30: WBC 4.7, RBC 2.66 L, Hgb 8.5 L, Hct 25.8 L, MCV 97.0 H, MCH 32.0, MCHC 32.9, RDW Std Deviation 53.7 H, RDW Coeff of Silvia 15.9 H, Plt Count 81 L, MPV 11.4, Immature Gran % (Auto) 1.900 H, Neut % (Auto) 80.8 H, Lymph % (Auto) 8.8 L, [place] % (Auto) 7.3, Eos % (Auto) 0.6, Baso % (Auto) 0.6, Absolute Neuts (auto) 3.8, Absolute Lymphs (auto) 0.41 L, Nucleated RBC % 0.9, Differential Comment SCANNED, Sodium 138, Potassium 3.7, Chloride 106, Carbon Dioxide 21.0, Anion Gap 11, BUN 54 H, Creatinine 6.29 H, Estim Creat Clear Calc 13.47, Est GFR (MDRD) Af Amer 12 L, Est GFR (MDRD) Non-Af 10 L, BUN/Creatinine Ratio 8.6 L, Glucose 131 H, Calcium 6.7 L 11/02/23 04:54: POC Glucose 108 H 11/02/23 11:31: POC Glucose 124 H Micro: Microbiology 10/30/23 22:40 Sputum, Induced/Lukens Gram Stain - Final 10/30/23 22:40 Sputum, Induced/Lukens Respiratory Culture - Preliminary Yeast Like Organism 11/01/23 20:30 Stool Stool Occult Blood (EMILY) - Final Occult Blood Positive 10/30/23 01:45 Blood Culture (Wb) - Right Wrist Blood Culture - Preliminary No growth in 48 hours. 10/30/23 01:20 Blood Culture (Wb) - Venous Blood Culture - Preliminary No growth in 48 hours. 10/30/23 01:40 Urine, Clean Catch Urine Culture - Final Culture exhibits no growth. 10/30/23 03:00 Mucosa - Nose Respiratory Panel (PCR) - Final Human [place] 10/30/23 01:40 Urine Catheter - Catheter Legionella Antigen - Final 10/30/23 01:40 Urine Catheter - Bland Streptococcus pneumoniae Antigen (M - Final 10/30/23 01:40 Mucosa - Nose SARS-CoV-2, Influenza & RSV (PCR) - Final Rhythm Strip Rhythm Strip: Sinus Rhythm Rate: 80 Physical Exam Narrative Intubated no obvious distress no pallor no icterus no JVD s1s2 no murmurs abdomen soft no organomegaly no edema no cyanosis Assessment & Plan Assessment/Plan (1) End stage renal disease: PLAN: On hemodialysis Tuesday, , Tuesday schedule. Recently he has been going on late Tuesday and Tuesday. Last dialysis was Tuesday. Will continue as per schedule. High-grade fevers. Respiratory panel positive for metapneumovirus.
[2023-11-02 17:03] LABS: Bedside Glucose 118 mg/dL (74-106)
--- NOTE | 2023-11-02 18:51 | EX.PCM.CON.G ---
HPI Consult Data Date of Consult: 11/02/23 HPI Narrative Reason for Consultation: Anemia HPI Narrative: JAMES RICO, is a 63 y/o M w/ PMHx: ESRD on HD MWF, Chronic AF on Eliquis, HFpEF, HTN, HLD, Hx CVA w/ L sided hemiparesis, who presented to the [facility] ED on 10/30/23 with history of significant dyspnea ongoing since the day prior with fever, chills, mildly productive cough, congestion as well as episodes of nausea with emesis with last dialysis. EMS call noted to be 77% on room air with improvement to 95% on 4 L nasal cannula prompting transition to the ED for evaluation. Workup in the ED included T101.5, heart rate 108, BP 189/96, respiratory rate 26, 96% on 4 L nasal cannula--> 97% on 5 L nasal cannula, CBC with WBC 5.2, hemoglobin 9.0, MCV 96.2, platelet 143 with increased immature granulocytes and lymphopenia, unremarkable coags, CMP with BUN/creatinine 75/10.50, glucose 125, lactic acid 0.8 otherwise hepatic profile not marked appearing, chest x-ray with cardiomegaly with pulmonary vascular congestion and left basilar airspace disease suggestive of pneumonia. Worm Packer and primary team suspect multifactorial in setting of volume overload from missed HD sessions, human metapneumovirus infection and possible superimposed bacterial infection. He is currently intubated and sedated. I was asked to see him due to decreasing hemoglobin on Eliquis therapy. [facility] Medical History Acute and chronic respiratory failure with hypoxia Ambulates with cane Arthritis Back pain Cardiology follow-up encounter CHF (congestive heart failure) Chronic kidney disease, stage 4 (severe) Dietary restriction End stage renal disease Epilepsy ESRD (end stage renal disease) on dialysis Former smoker Heartburn High cholesterol History of atrial fibrillation History of echocardiogram History of pain when walking History of renal dialysis History of renal disease History of right MCA stroke History of stress test HTN (hypertension) Injury of head and neck Insulin dependent diabetes mellitus Migraine headache Peripheral neuropathy Polyneuropathy Restless legs Right leg weakness Seizures Stroke Syncope TIA (transient ischemic attack) Weakness Wears glasses Wears partial dentures Home Medications apixaban 5 mg tablet (Eliquis) 5 mg PO BID #60 tabs 03/24/22 [Rx Last Taken 09/16/22] atorvastatin 10 mg tablet 20 mg PO QHS 05/20/22 [History Last Taken Unknown] albuterol sulfate 90 mcg/actuation aerosol inhaler (Ventolin HFA) 2 puff inhalation Q6H PRN Wheezing 08/24/22 [History Last Taken Unknown] metoprolol tartrate 25 mg tablet 25 mg PO DAILY 08/24/22 [History Last Taken Unknown] amlodipine 10 mg tablet 10 mg PO DAILY #30 tabs 09/15/22 [Rx Last Taken 09/17/22] Manual wheelchair #1 ea 03/24/23 [Rx Last Taken Unknown] gabapentin 100 mg capsule 100 mg PO TID #90 caps 04/20/23 [Rx Last Taken Unknown] brimonidine 0.2 % eye drops 1 drp ophthalmic (eye) BID 05/11/23 [History Last Taken Unknown] divalproex 500 mg tablet,delayed release (Depakote) 1,000 mg PO BID 07/31/23 [History Last Taken Unknown] latanoprost 0.005 % eye drops 1 drp RIGHT EYE BID 10/30/23 [History Last Taken Unknown] Allergy/AdvReac Type Severity Reaction Status Date / Time lisinopril AdvReac Severe Other Verified 07/31/23 16:32 oxycodone AdvReac Severe Other Verified 07/31/23 16:32 hydrocodone bitartrate AdvReac Mild HYPER Verified 07/31/23 16:32 [From Vicodin] Family History Father Cancer Prostate Heart disease Mother Heart disease Diabetes Other COPD (chronic obstructive pulmonary disease) Surgical History History of rotator cuff surgery History of umbilical hernia repair Hx of arteriovenostomy for renal dialysis Hx of left cataract extraction Hx of right cataract extraction S/P arteriovenous (AV) fistula creation Status post foot surgery Social History household members: spouse and children number of children: 3 current occupational status: disabled Smoking Status: Never smoker Smokeless tobacco user: snuff second hand exposure: No alcohol intake: never substance use type: does not use what type of physical activity do you participate in: other details: health point frequency: 3-4 times per week alba/pentecostalism: Other seatbelt use: always ROS Review of Systems ROS Unobtainable: due to endotracheal tube Physical Exam Narrative Intubated no obvious distress no pallor no icterus no JVD s1s2 no murmurs abdomen soft no organomegaly no edema no cyanosis Lab / Micro Data 11/02/23 03:30 11/02/23 03:30 Labs: Laboratory Results - last 24 hr 11/01/23 23:35: POC Glucose 113 H 11/02/23 03:30: WBC 4.7, RBC 2.66 L, Hgb 8.5 L, Hct 25.8 L, MCV 97.0 H, MCH 32.0, MCHC 32.9, RDW Std Deviation 53.7 H, RDW Coeff of Silvia 15.9 H, Plt Count 81 L, MPV 11.4, Immature Gran % (Auto) 1.900 H, Neut % (Auto) 80.8 H, Lymph % (Auto) 8.8 L, [place] % (Auto) 7.3, Eos % (Auto) 0.6, Baso % (Auto) 0.6, Absolute Neuts (auto) 3.8, Absolute Lymphs (auto) 0.41 L, Nucleated RBC % 0.9, Differential Comment SCANNED, Sodium 138, Potassium 3.7, Chloride 106, Carbon Dioxide 21.0, Anion Gap 11, BUN 54 H, Creatinine 6.29 H, Estim Creat Clear Calc 13.47, Est GFR (MDRD) Af Amer 12 L, Est GFR (MDRD) Non-Af 10 L, BUN/Creatinine Ratio 8.6 L, Glucose 131 H, Calcium 6.7 L 11/02/23 04:54: POC Glucose 108 H 11/02/23 11:31: POC Glucose 124 H 11/02/23 16:31: POC Glucose 118 H Micro: Microbiology 10/30/23 22:40 Sputum, Induced/Lukens Gram Stain - Final 10/30/23 22:40 Sputum, Induced/Lukens Respiratory Culture - Final Yeast, not Alana albicans 11/01/23 20:30 Stool Stool Occult Blood (EMILY) - Final Occult Blood Positive Rhythm Strip Rhythm Strip: Sinus Rhythm Rate: 80 Assessment & Plan Assessment/Plan (1) Acute respiratory failure: QUALIFIERS: Respiratory failure complication: hypoxia Qualified Code(s): J96.01 - Acute respiratory failure with hypoxia (2) End stage renal disease: (3) Pneumonia: PLAN: Plan 63-year-old male with multifactorial acute on chronic hypoxic respiratory failure His hemoglobin was 9.0 on admit, down trended to 7.9 shortly after with IV fluids. Downtrended again to hemoglobin 6.8 on 10/30. From his labs he does have anemia chronic disease on his seems like acute blood loss anemia. Differential diagnosis would include peptic ulcer disease, stress gastritis secondary to recent infection and intubation, angiodysplasia secondary to hemodialysis, telangiectasia. He should undergo an upper endoscopy to evaluate some of the GI tract. I talked to his and explained to her alternatives, risk, benefits including not withstanding bleeding, infection, sepsis, perforation, need for emergent surgery . He will have an ASA of 3 for the procedure. Hold tube feedings at midnight. Charges/Coding Visit Charges Inpatient E&M: 75753 Init Hosp L3
[2023-11-02] MEDS: Atorvastatin Calcium 20 MG Tablet GT (20:41)
[2023-11-02 23:53] LABS: Bedside Glucose 116 mg/dL (74-106)
[2023-11-03] VITALS (53 sets, daily range): BP systolic 107–225; BP diastolic 57–75; PULSE 57–78; RESP 14–25; TEMP 36–36.8; O2SAT 14–196; BMI 28.3; BMI 27.5
[2023-11-03 03:35] LABS: Hematocrit 26.7 % (40-54); Hemoglobin 8.6 g/dL (13.0-16.5); Mean Corp Hgb Conc 32.2 g/dL (32-36); Mean Corpuscular Hgb 30.7 pg (27.0-32.0); Mean Corpuscular Volume 95.4 fL (80-94); POSITIVE COUNT YES; POSITIVE MORPHOLOGY YES; Platelet Count 100 K/mm3 (150-450); RBC Distribution Width CV 15.7 % (11.6-14.6); RBC Distribution Width SD 53.2 fl (35.1-43.9); White Blood Count 5.5 K/mm3 (4.4-11.0)
[2023-11-03 04:07] LABS: Anion Gap 12 (5-15); BUN 72 mg/dL (7-18); BUN/Creat Ratio 8.9 RATIO (10-20); Calcium,Total 7.7 mg/dL (8.5-10.1); Chloride 101 mmol/L (98-107); Creatinine, Serum 8.07 mg/dL (0.70-1.30); EST Glomerular Filtration Rate 7 mL/min (>60); Est Glom Filt Rate - Afr Amer 9 mL/min (>60); Estimated Creatinine Clearance 10.57 ml/min; Glucose 86 mg/dL (74-106); Potassium 4.2 mmol/L (3.5-5.1); Sodium Level 135 mmol/L (136-145)
[2023-11-03 04:33] LABS: Differential Indicated MANUAL DIFF
[2023-11-03 04:36] LABS: Scan Smear per Review Criteria MANUAL DIFF
[2023-11-03 04:40] LABS: Eosinophil 3 % (0-5); Lymphocyte 10 % (19-41); Metamyelocyte 1 % (0-1); Monocyte 4 % (0-10); Myelocyte 3 % (0-0); Neutrophil-Band 12 % (0-5); Neutrophil-Segmented 66 % (47-70); Nucleated Red Bld Cells,Manual 2 % (0-5); Other WBC Type 1 %; Total Cells Counted 100 (MANUAL DIFF)
[2023-11-03 04:44] LABS: Basophilic Stippling RARE; Platelet Estimate SLT DEC (ADEQ); Polychromasia 1+
[2023-11-03 04:45] LABS: Absolute Neutrophil Count 4.3 X10^3/uL (2.0-7.7); Differential Comment SCANNED
[2023-11-03] MEDS: 0.9% Saline Lock 10 ML Syringe IV ×2 (05:26→12:13)
[2023-11-03 05:48] LABS: Bedside Glucose 70 mg/dL (74-106)
[2023-11-03] MEDS: Dextrose 50%-Water 25 GM/50 ML DISP.SYRIN IV (05:53)
[2023-11-03 06:54] LABS: Bedside Glucose 93 mg/dL (74-106)
[2023-11-03] MEDS: Budesonide Respules 0.5 MG/2 ML AMPUL.NEB. INHALATION ×2 (07:01→19:28)
--- NOTE | 2023-11-03 07:55 | PCM.PN.INT ---
Assessment & Plan Assessment/Plan (1) CHF exacerbation: QUALIFIERS: Heart failure type: diastolic Qualified Code(s): I50.33 - Acute on chronic diastolic (congestive) heart failure (2) End stage renal disease: (3) Acute respiratory failure: QUALIFIERS: Respiratory failure complication: hypoxia Qualified Code(s): J96.01 - Acute respiratory failure with hypoxia PLAN: Plan RECOMMENDATIONS: 1. Obtain ABG to evaluate for hyperventilation 2. Hemodialysis per nephrology 3. Continue to monitor for A-fib 4. Await results of EGD 5. Transfuse blood with hemodialysis if needed 6. Continue spontaneous breathing and awakening trials per protocol 7. Transition to Precedex therapy to facilitate extubation IMPRESSIONS: 1. Acute on chronic hypoxic respiratory failure secondary to CHF/reported COPD Patient appears to have multifaceted etiology for respiratory failure. Patient does have significant metabolic acidosis, likely secondary to poor renal clearance. Patient may have an element of bacterial infection, but also tested positive for human metapneumovirus. Patient also appears to be significantly fluid overloaded and would benefit from continued fluid removal. Patient reportedly is on budesonide at baseline, so we will continue this moving forward. Will hold off on systemic steroids for now. Spontaneous breathing and awakening trials per protocol. Patient does not have a PFT to confirm COPD diagnosis. No wheezing is noted on exam. Some concern for overventilation leading to apnea on spontaneous breathing trial. Will obtain an ABG. Patient will also be transition to Precedex to help with trial. 2. Paroxysmal a flutter/volume overload/history of CVA Patient has not had significant hemodialysis in quite some time. Patient now in sinus rhythm. Would continue to hold Eliquis given guaiac positive stools. Patient does have left hemiparesis at baseline. Will hold apixaban as patient has significant anemia. Await results of upper GI 3. Diabetes mellitus type 2 Hemoglobin A1c is within normal limits. Continue with sliding scale. Okay to continue tube feeds after EGD if okay with GI. Blood sugars appear to be adequately controlled at this time. Patient with some hypoglycemia this morning, but likely secondary to n.p.o. related to EGD 4. End-stage renal disease with poor compliance Patient reportedly misses several hemodialysis sessions per month. Patient's creatinine is significantly elevated at presentation. Patient's blood gas is significant for a metabolic acidosis at presentation. Patient does have a tunneled hemodialysis line, so a line infection was treated for initially. Monitor clinically for sepsis as blood cultures are negative 5. Hypertension/GERD/RLS/anxiety/depression/seizure disorder/hyperlipidemia/chronic anemia Complicates care, management, recovery and prognosis. Okay to continue with baseline medications from my perspective. Patient's baseline hemoglobin appears to be approximately 9. Patient appeared to respond appropriately to blood transfusion. Patient currently intubated and sedated. No seizure activity has been noted. Okay to continue with Depakote. Continue to hold anticoagulation pending GI workup Addendum 4:08 PM: Concern by nursing secondary to decreased responsiveness during hemodialysis. CT of the head was ordered as there was concern for decreased responsiveness of pupils. Patient was not discontinued from dialysis as he is not a TNK candidate given his concern for GI bleed. Over the course of dialysis, patient's exam did improve. CT scan following dialysis shows no acute intracranial hemorrhage. TIME: 45 minutes critical care time spent addressing patient's respiratory failure, ESRD, review of all data and collaboration with care team Subjective Subjective Patient did okay overnight from a hemodynamic standpoint. Patient did not tolerate a spontaneous breathing trial this morning secondary to apnea. Patient did have some low blood sugars overnight per nursing and has been n.p.o. for a possible EGD today at 11 AM. Objective Data Objective Data Patient did not get hemodialysis yesterday. Vital Signs: Vital Signs Temp Pulse Resp BP Pulse Ox O2 Del Method O2 Flow Rate 36.5 C L 64 14 139/62 H 96 Mechanical Ventilator 30 11/03/23 06:00 11/03/23 07:02 11/03/23 07:02 11/03/23 07:00 11/03/23 07:02 11/03/23 07:00 10/31/23 08:00 FiO2 30 11/03/23 07:02 Oxygen Flow Rate (L/min) 30 Oxygen Delivery Method Mechanical Ventilator Weight: 89.811 kg Body Mass Index (BMI) 28.3 Intake & Output: Intake and Output for Last 24 Hours 11/01/23 11/02/23 11/03/23 23:59 23:59 23:59 Intake Total 1728.44 / 1738.84 2912.49 / 2925.49 109.21 / 109.21 Output Total 1760 / 1765 Balance -31.56 / -26.16 2895.49 / 2908.49 109.21 / 109.21 Lab / Micro Data Attestation: I reviewed the patient's lab results. 11/03/23 03:22 11/03/23 03:22 Labs: Laboratory Results - last 24 hr 11/02/23 11:31: POC Glucose 124 H 11/02/23 16:31: POC Glucose 118 H 11/02/23 23:24: POC Glucose 116 H 11/03/23 03:22: WBC 5.5, RBC 2.80 L, Hgb 8.6 L, Hct 26.7 L, MCV 95.4 H, MCH 30.7, MCHC 32.2, RDW Std Deviation 53.2 H, RDW Coeff of Silvia 15.7 H, Plt Count 100 L, MPV 12.0, Immature Gran % (Auto) TEAM MANAGER, Neut % (Auto) TEAM MANAGER, Lymph % (Auto) TEAM MANAGER, [place] % (Auto) TEAM MANAGER, Eos % (Auto) TEAM MANAGER, Baso % (Auto) TEAM MANAGER, Absolute Neuts (auto) 4.3, Absolute Lymphs (auto) 0.60 L, Total Counted 100, Neutrophils % (Manual) 66, Band Neutrophils % 12 H, Lymphocytes % (Manual) 10 L, Monocytes % (Manual) 4, Eosinophils % (Manual) 3, Metamyelocytes % 1, Myelocytes % 3 H, Other Cells % 1, Nucleated RBC % TEAM MANAGER, Nucleated RBCs/100 WBC 2, Differential Comment SCANNED, Diff Path Review December, Platelet Estimate SLT DEC, Polychromasia 1+, Basophilic Stippling RARE, Sodium 135 L, Potassium 4.2, Chloride 101, Carbon Dioxide 22.0, Anion Gap 12, BUN 72 H, Creatinine 8.07 H*, Estim Creat Clear Calc 10.57, Est GFR (MDRD) Af Amer 9 L, Est GFR (MDRD) Non-Af 7 L, BUN/Creatinine Ratio 8.9 L, Glucose 86, Calcium 7.7 L 11/03/23 05:25: POC Glucose 70 L 11/03/23 06:35: POC Glucose 93 Micro: Microbiology 10/30/23 22:40 Sputum, Induced/Lukens Gram Stain - Final 10/30/23 22:40 Sputum, Induced/Lukens Respiratory Culture - Final Yeast, not Alana albicans 11/01/23 20:30 Stool Stool Occult Blood (EMILY) - Final Occult Blood Positive 10/30/23 01:45 Blood Culture (Wb) - Right Wrist Blood Culture - Preliminary No growth in 48 hours. 10/30/23 01:20 Blood Culture (Wb) - Venous Blood Culture - Preliminary No growth in 48 hours. 10/30/23 01:40 Urine, Clean Catch Urine Culture - Final Culture exhibits no growth. 10/30/23 03:00 Mucosa - Nose Respiratory Panel (PCR) - Final Human [place] 10/30/23 01:40 Urine Catheter - Catheter Legionella Antigen - Final 10/30/23 01:40 Urine Catheter - Bland Streptococcus pneumoniae Antigen (M - Final 10/30/23 01:40 Mucosa - Nose SARS-CoV-2, Influenza & RSV (PCR) - Final Rhythm Strip Rhythm Strip: Sinus Rhythm Rate: 69 Physical Exam Const Constitutional Narrative: Intubated and sedated. RASS -1. Good ventilator synchrony. General Appearance: patient mechanically ventilated HEENT normocephalic and head/scalp atraumatic Eyes conjunctivae normal Neck no lymphadenopathy and supple Lymph Lymphatic: no lymphadenopathy noted and no lymphedema noted Resp Auscultation: diminished lung sounds; Negative for rales, rhonchi or wheezes Cardio regular rate, regular rhythm, S1 normal heart sound, S2 normal heart sound, no murmurs, no rub and no gallops GI normal to inspection, nondistended, normoactive bowel sounds Extremity normal capillary refill, no clubbing, cyanosis or edema and no calf tenderness General Extremity: no tenderness to palpation of joints or extremities Skin Skin Narrative: Tunneled HD cath is clean, dry and intact General Skin Exam: no breakdown Neuro Neuro Narrative: Left-sided hemiparesis Psych Mood & Affect: flat affect Charges/Coding Procedures Hospitalists Procedures: [id number] Critical Care 1st Hr
[2023-11-03 08:16] LABS: Base Excess -4 mmol/L (-2 to +2); Blood Gas Specimen Type ART; Mode AC; O2 Delivery Device Adult Vent; PO2 78 mmHG (75-100); RR 14; SITE R Radial; SO2 95 % (95-99); Total Carbon Dioxide 22 mmol/L; pCO2 34.7 mmHg (35-45); pH 7.39 (7.35-7.45)
[2023-11-03] MEDS: Metoprolol Tartrate 25 MG Tablet GT (08:37)
[2023-11-03] MEDS: Pantoprazole Sodium 40 MG in 0.9% Normal Saline (100mL MB+) 100 ML 330 MG IV (08:37)
[2023-11-03] MEDS: amLODIPine 10 MG Tablet GT (08:37)
[2023-11-03] MEDS: Latanoprost 0.005% 1 Bottle 1 DRP RIGHT EYE ×2 (08:38→21:20)
[2023-11-03] MEDS: Chlorhexidine 15 ML PO ×2 (08:38→21:20)
[2023-11-03] MEDS: Divalproex Sodium 125 MG SPRINKLE 1000 MG NG ×2 (08:38→21:19)
[2023-11-03] MEDS: BRIMONIDINE 0.2% 5ML BOTTLE 1 DRP OPHTHALMIC ×2 (08:38→21:20)
[2023-11-03] MEDS: dexMEDEtomidine 400 MCG in 0.9% Normal Saline (100mL Bag) 96 ML 11.2 MCG CONT INF (08:39)
--- NOTE | 2023-11-03 11:35 | PN.RENAL_ITS ---
Subjective Subjective On vent. No overnight events. at bedside. Objective Data Objective Data Vital Signs: Vital Signs Temp Pulse Resp BP Pulse Ox O2 Del Method O2 Flow Rate 98.1 F 64 14 153/65 H 99 Mechanical Ventilator 30 11/03/23 09:00 11/03/23 10:00 11/03/23 10:00 11/03/23 10:00 11/03/23 10:00 11/03/23 10:00 10/31/23 08:00 FiO2 30 11/03/23 10:00 Oxygen Flow Rate (L/min) 30 Oxygen Delivery Method Mechanical Ventilator Weight: 89.811 kg Body Mass Index (BMI) 28.3 Intake & Output: Intake and Output for Last 24 Hours 11/01/23 11/02/23 11/03/23 23:59 23:59 23:59 Intake Total 1728.44 / 1738.84 2912.49 / 2925.49 285.67 / 285.67 Output Total 1760 / 1765 17 / 17 Balance -31.56 / -26.16 2895.49 / 2908.49 285.67 / 285.67 Lab / Micro Data 11/03/23 03:22 11/03/23 03:22 Labs: Laboratory Results - last 24 hr 11/02/23 11:31: POC Glucose 124 H 11/02/23 16:31: POC Glucose 118 H 11/02/23 23:24: POC Glucose 116 H 11/03/23 03:22: WBC 5.5, RBC 2.80 L, Hgb 8.6 L, Hct 26.7 L, MCV 95.4 H, MCH 30.7, MCHC 32.2, RDW Std Deviation 53.2 H, RDW Coeff of Silvia 15.7 H, Plt Count 100 L, MPV 12.0, Immature Gran % (Auto) SHELL SHOP SUPERVISOR, Neut % (Auto) SHELL SHOP SUPERVISOR, Lymph % (Auto) SHELL SHOP SUPERVISOR, [place] % (Auto) SHELL SHOP SUPERVISOR, Eos % (Auto) SHELL SHOP SUPERVISOR, Baso % (Auto) SHELL SHOP SUPERVISOR, Absolute Neuts (auto) 4.3, Absolute Lymphs (auto) 0.60 L, Total Counted 100, Neutrophils % (Manual) 66, Band Neutrophils % 12 H, Lymphocytes % (Manual) 10 L, Monocytes % (Manual) 4, Eosinophils % (Manual) 3, Metamyelocytes % 1, Myelocytes % 3 H, Other Cells % 1, Nucleated RBC % SHELL SHOP SUPERVISOR, Nucleated RBCs/100 WBC 2, Differential Comment SCANNED, Diff Path Review May foll, Platelet Estimate SLT DEC, Polychromasia 1+, Basophilic Stippling RARE, Sodium 135 L, Potassium 4.2, Chloride 101, Carbon Dioxide 22.0, Anion Gap 12, BUN 72 H, Creatinine 8.07 H*, Estim Creat Clear Calc 10.57, Est GFR (MDRD) Af Amer 9 L, Est GFR (MDRD) Non-Af 7 L, BUN/Creatinine Ratio 8.9 L, Glucose 86, Calcium 7.7 L 11/03/23 05:25: POC Glucose 70 L 11/03/23 06:35: POC Glucose 93 Micro: Microbiology 10/30/23 22:40 Sputum, Induced/Lukens Gram Stain - Final 10/30/23 22:40 Sputum, Induced/Lukens Respiratory Culture - Final Yeast, not Alana albicans 11/01/23 20:30 Stool Stool Occult Blood (EMILY) - Final Occult Blood Positive 10/30/23 01:45 Blood Culture (Wb) - Right Wrist Blood Culture - Preliminary No growth in 48 hours. 10/30/23 01:20 Blood Culture (Wb) - Venous Blood Culture - Preliminary No growth in 48 hours. 10/30/23 01:40 Urine, Clean Catch Urine Culture - Final Culture exhibits no growth. 10/30/23 03:00 Mucosa - Nose Respiratory Panel (PCR) - Final Human [place] 10/30/23 01:40 Urine Catheter - Catheter Legionella Antigen - Final 10/30/23 01:40 Urine Catheter - Bland Streptococcus pneumoniae Antigen (M - Final 10/30/23 01:40 Mucosa - Nose SARS-CoV-2, Influenza & RSV (PCR) - Final ABG Data ABG results: ABG 11/03/23 08:12 Specimen Type ART Sample Site R Radial pH 7.39 Bicarbonate Actual 21.0 L Total CO2 22 Base Excess -4 L O2 Saturation 95 O2 % 30.0 ABG pCO2 34.7 L ABG pO2 78 Respiration Rate 14 O2 Delivery Device Adult Vent Vent Mode AC Tidal Volume 500.0 Rhythm Strip Rhythm Strip: Sinus Rhythm Rate: 69 Physical Exam Narrative Intubated no obvious distress s1s2 no murmurs abdomen soft no edema AV fistula right forearm positive thrill and bruit Tunneled HD catheter dressing clean, dry and intact Assessment & Plan Assessment/Plan (1) End stage renal disease: PLAN: On hemodialysis Tuesday, , Tuesday schedule. Recently he has been going on late Tuesday and Tuesday. To undergo hemodialysis today and attempt fluid removal as patient/blood pressure tolerates. High-grade fevers. Respiratory panel positive for metapneumovirus. Anemia of chronic disease; GI consulted and possible EGD tomorrow. Hemoglobin today 8.6. Patient receives KRUPA and iron when he goes to dialysis. Will follow hemoglobin trends. Acute on chronic respiratory failure, suspect multifactorial from volume overload, human metapneumovirus infection, possible bacterial infection. Currently on vent support.
[2023-11-03 12:07] LABS: Bedside Glucose 83 mg/dL (74-106)
[2023-11-03] MEDS: PureFlow B 3K Dialysis Soln 1 BAG 6 BAG PF (12:13)
[2023-11-03] MEDS: 0.9% Normal Saline 1,000 ML IV.SOLN. 1000 ML OPERA.SITE (12:13)
--- NOTE | 2023-11-03 12:22 | CT_ITS ---
STUDY: CT BRAIN WITHOUT CONTRAST REASON FOR EXAM: Male, 63 years old. change in neuro exam RADIATION DOSAGE (If Supplied By Facility): CTDIvol = ( 44.99 ) mGy, DLP = ( 779.24 ) mGycm TECHNIQUE: Transaxial CT imaging of the brain was performed without administration of intravenous contrast material. Individualized dose optimization techniques were used for this CT. COMPARISON 07/31/2023 . FINDINGS: Normal soft tissue structures. Normal calvarium. Mild atrophy and moderate periventricular white matter ischemic changes.. Normal basal ganglia and thalami. Normal brainstem. Normal cerebellum. There is no intracranial hemorrhage. There are no findings of an acute ischemic infarction. Minor mucosal thickening of the bilateral ethmoid air cells. Postsurgical changes of the orbits CT/Brain/Head without Contrast IMPRESSION: Mild atrophy and moderate periventricular white matter ischemic change. No acute bleed. If concern for acute infarct MRI recommended Electronically Signed: Shahbaz Aguirre MD at 17:06 EDT ,
--- NOTE | 2023-11-03 13:21 | PN.HOSP_ITS ---
Reason for Visit Reason for Visit: Diagnoses Acute on chronic diastolic (congestive) heart failure (10/30/23) Heart failure, unspecified (10/30/23) Pneumonia, unspecified organism (10/30/23) Acute respiratory failure with hypoxia (10/30/23) End stage renal disease (10/30/23) Subjective Subjective No acute events overnight. Patient seen at bedside this morning. Remains intubated and sedated, opening eyes weakly to voice but not following any commands. Per nursing staff, there is concern that patient is not awakening as well as will be held for off sedation. Switched to Precedex per commercial portfolio manager recommendations this morning. Failed SBT this morning, was apneic during breathing trial. Also seemed to be some concern for new right sided weakness though nursing staff admits this was difficult to determine. No other acute concerns this morning. Objective Data Objective Data Vital Signs: Vital Signs Temp Pulse Resp BP Pulse Ox O2 Del Method O2 Flow Rate 96.8 F L 58 L 14 116/60 99 Mechanical Ventilator 30 11/03/23 12:00 11/03/23 13:15 11/03/23 13:15 11/03/23 13:15 11/03/23 13:15 11/03/23 13:15 10/31/23 08:00 FiO2 30 11/03/23 13:15 Oxygen Flow Rate (L/min) 30 Oxygen Delivery Method Mechanical Ventilator Weight: 89.8 kg Body Mass Index (BMI) 28.3 Intake & Output: Intake and Output for Last 24 Hours 11/01/23 11/02/23 11/03/23 23:59 23:59 23:59 Intake Total 1728.44 / 1738.84 2912.49 / 2925.49 335.27 / 335.27 Output Total 1760 / 1765 17 / 17 5 / 5 Balance -31.56 / -26.16 2895.49 / 2908.49 330.27 / 330.27 Lab / Micro Data 11/03/23 03:22 11/03/23 03:22 Labs: Laboratory Results - last 24 hr 11/02/23 16:31: POC Glucose 118 H 11/02/23 23:24: POC Glucose 116 H 11/03/23 03:22: WBC 5.5, RBC 2.80 L, Hgb 8.6 L, Hct 26.7 L, MCV 95.4 H, MCH 30.7, MCHC 32.2, RDW Std Deviation 53.2 H, RDW Coeff of Silvia 15.7 H, Plt Count 100 L, MPV 12.0, Immature Gran % (Auto) CAREER SERVICES DIRECTOR, Neut % (Auto) CAREER SERVICES DIRECTOR, Lymph % (Auto) CAREER SERVICES DIRECTOR, [place] % (Auto) CAREER SERVICES DIRECTOR, Eos % (Auto) CAREER SERVICES DIRECTOR, Baso % (Auto) CAREER SERVICES DIRECTOR, Absolute Neuts (auto) 4.3, Absolute Lymphs (auto) 0.60 L, Total Counted 100, Neutrophils % (Manual) 66, Band Neutrophils % 12 H, Lymphocytes % (Manual) 10 L, Monocytes % (Manual) 4, Eosinophils % (Manual) 3, Metamyelocytes % 1, Myelocytes % 3 H, Other Cells % 1, Nucleated RBC % CAREER SERVICES DIRECTOR, Nucleated RBCs/100 WBC 2, Differential Comment SCANNED, Diff Path Review December, Platelet Estimate SLT DEC, Polychromasia 1+, Basophilic Stippling RARE, Sodium 135 L, Potassium 4.2, Chloride 101, Carbon Dioxide 22.0, Anion Gap 12, BUN 72 H, Creatinine 8.07 H*, Estim Creat Clear Calc 10.57, Est GFR (MDRD) Af Amer 9 L, Est GFR (MDRD) Non-Af 7 L, BUN/Creatinine Ratio 8.9 L, Glucose 86, Calcium 7.7 L 11/03/23 05:25: POC Glucose 70 L 11/03/23 06:35: POC Glucose 93 11/03/23 11:46: POC Glucose 83 Micro: Microbiology 10/30/23 22:40 Sputum, Induced/Lukens Gram Stain - Final 10/30/23 22:40 Sputum, Induced/Lukens Respiratory Culture - Final Yeast, not Alana albicans 11/01/23 20:30 Stool Stool Occult Blood (EMILY) - Final Occult Blood Positive 10/30/23 01:45 Blood Culture (Wb) - Right Wrist Blood Culture - Preliminary No growth in 48 hours. 10/30/23 01:20 Blood Culture (Wb) - Venous Blood Culture - Preliminary No growth in 48 hours. 10/30/23 01:40 Urine, Clean Catch Urine Culture - Final Culture exhibits no growth. 10/30/23 03:00 Mucosa - Nose Respiratory Panel (PCR) - Final Human [place] 10/30/23 01:40 Urine Catheter - Catheter Legionella Antigen - Final 10/30/23 01:40 Urine Catheter - Bland Streptococcus pneumoniae Antigen (M - Final 10/30/23 01:40 Mucosa - Nose SARS-CoV-2, Influenza & RSV (PCR) - Final ABG Data ABG results: ABG 11/03/23 08:12 Specimen Type ART Sample Site R Radial pH 7.39 Bicarbonate Actual 21.0 L Total CO2 22 Base Excess -4 L O2 Saturation 95 O2 % 30.0 ABG pCO2 34.7 L ABG pO2 78 Respiration Rate 14 O2 Delivery Device Adult Vent Vent Mode AC Tidal Volume 500.0 Rhythm Strip Rhythm Strip: Sinus Rhythm Rate: 69 Physical Exam Const Constitutional Narrative: Intubated and sedated, opening eyes weakly to voice but not following commands. HEENT normocephalic, head/scalp atraumatic and nasal mucous membranes and turbinates normal Chest inspection of chest normal Resp normal respiratory effort and no use of accessory muscles Resp Narrative: Decreased breath sounds bilaterally throughout with mild crackles noted. No wheezing noted. Cardio regular rate, regular rhythm, no murmurs and peripheral pulses 2+ throughout GI normal to inspection, nondistended, normoactive bowel sounds, soft to palpation, non-tender and non-distended Extremity normal to inspection and no clubbing, cyanosis or edema Skin no rashes or lesions noted Assessment & Plan Assessment/Plan (1) Acute respiratory failure: QUALIFIERS: Respiratory failure complication: hypoxia Qualified Code(s): J96.01 - Acute respiratory failure with hypoxia (2) End stage renal disease: (3) Pneumonia: PLAN: Plan Patient is a 63-year-old male who presented to [facility] ED on 10/30/2023 with worsening dyspnea and hypoxia. 1. Acute on chronic hypoxic respiratory failure ? Suspect multifactorial in setting of volume overload from missed HD sessions, human metapneumovirus infection and possible superimposed bacterial infection. ? Remains intubated and sedated on 11/02. Patient unfortunately has not had significant response from respiratory standpoint after multiple sessions of dialysis. ? Power House Engineer following. Sedation switched to Precedex on 11/02 with goal to work towards extubation. Appreciate further commercial portfolio manager recommendations. 2. Human metapneumovirus infection, concern for superimposed bacterial infection ? Positive for human metapneumovirus on admit. Chest x-ray showed scattered bilateral airspace opacities consistent with pneumonia. Negative Gram stain, urine antigens negative, respiratory culture negative, blood cultures with no growth at 48 hours. Procalcitonin 0.42, upper limit of normal. ? Power House Engineer following as above. Discontinued IV antibiotics on 10/31. Continue home budesonide. Holding on systemic steroids for now, appreciate further commercial portfolio manager recs. 3. ESRD on HD with frequent missed HD sessions; metabolic acidosis, resolved ? Nephrology following. Patient on Tuesday schedule but apparently frequently misses sessions and usually goes when he has volume overload causing worsening hypoxia. Metabolic acidosis presumed secondary to ESRD. Had HD sessions on 10/30 and 10/31 for volume removal. Per nephrology, planning to continue schedule for HD going forward. Receiving KRUPA and iron with dialysis sessions. 4. Acute on chronic anemia, concern for GI bleed ? Hemoglobin 9.0 on admit, down trended to 7.9 shortly after with IV fluids. Downtrended again to hemoglobin 6.8 on 10/30. No overt signs of bleeding noted. Baseline hemoglobin appears to be around 9-10. Iron studies show ferritin 1852, consistent with anemia of chronic disease. ? Transfused 1 unit of packed red blood cells on 10/30, repeat hemoglobin 8.7. Hemoglobin has remained stable as of 11/01 and 11/02, however patient was noted to be Hemoccult positive on 11/01. ? GI following. Planning for EGD on 11/02, will follow-up results. Continue to hold home Eliquis. 5. Paroxysmal A-fib/flutter with RVR ? Patient noted to flip into A-fib with RVR on the evening of 10/30 after first HD session. Had heart rates in the 140s to 150s fairly consistently. Was given 2 doses of digoxin with only mild improvement. Flipped back into normal sinus rhythm with heart rate in the 80s on morning of 10/31 during dialysis session. ? Patient was noted to have mildly low BPs after first HD session, suspect that he may has had slightly too much volume removed leading to hypotension and worsening A-fib with RVR. BP much improved on 10/31 as well. ? Continue home Lopressor. Holding home Eliquis as noted above. Continue cardiac monitoring. Chronic medical conditions: ? Type 2 diabetes mellitus: Reported history of diabetes, not currently on home medication. A1c 5.0% on admit. Continue sliding-scale insulin every 4 hours with tube feeds as needed. ? History of CVA with left sided hemiparesis ? Hypertension: Continue home Lopressor, amlodipine. ? Hyperlipidemia: Continue home statin. ? Anxiety/depression/RLS: Continue home gabapentin. ? Paroxysmal A-fib/flutter on Eliquis: Holding home Eliquis as noted above. Continue home Lopressor. ? Seizure disorder: Continue home Depakote. DVT prophylaxis: SCDs CODE STATUS: Full code, verified Expected disposition: TBD Total clinical time spent by myself addressing the patient's medical issues, reviewing all the data, and collaborating with patient's care team: 35 minutes. Charges/Coding Visit Charges Inpatient E&M: 06687 Subs Hosp L2
[2023-11-03] MEDS: Gabapentin 100 MG Capsule GT ×2 (14:10→21:19)
[2023-11-03] MEDS: fentaNYL drip 100 ML 2.5 MCG CONT INF (14:17)
[2023-11-03 14:35] LABS: Pathologist Review Reviewed
[2023-11-03] MEDS: Heparin 10,000 UNITS/10 ML Vial IV (15:02)
[2023-11-03] MEDS: Epoetin Alfa epbx 10,000 UNITS/ML 20000 UNIT SC (15:29)
[2023-11-03 17:46] LABS: Bedside Glucose 88 mg/dL (74-106)
[2023-11-03] MEDS: dexMEDEtomidine 400 MCG in 0.9% Normal Saline (100mL Bag) 96 ML 13.5 MCG CONT INF (17:57)
--- NOTE | 2023-11-03 18:35 | EX.PCM.PN.GI ---
Subjective Subjective Patient decompensated on dialysis; therefore his egd was put on hold for today. Objective Data Objective Data Vital Signs: Vital Signs Temp Pulse Resp BP Pulse Ox O2 Del Method O2 Flow Rate 96.9 F L 66 14 149/75 H 196 Mechanical Ventilator 11/03/23 16:15 11/03/23 18:00 11/03/23 18:00 11/03/23 18:00 11/03/23 17:00 11/03/23 18:00 10/31/23 08:00 FiO2 30 11/03/23 18:00 Oxygen Flow Rate (L/min) 30 Oxygen Delivery Method Mechanical Ventilator Weight: 192 lb 3.889 oz Body Mass Index (BMI) 27.5 Intake & Output: Intake and Output for Last 24 Hours 11/01/23 11/02/23 11/03/23 23:59 23:59 23:59 Intake Total 1728.44 / 1738.84 2912.49 / 2925.49 401.52 / 401.52 Output Total 1760 / 1765 17 / 17 1555 / 1555 Balance -31.56 / -26.16 2895.49 / 2908.49 -1153.48 / -1153.48 Lab / Micro Data 11/03/23 03:22 11/03/23 03:22 Labs: Laboratory Results - last 24 hr 11/02/23 23:24: POC Glucose 116 H 11/03/23 03:22: WBC 5.5, RBC 2.80 L, Hgb 8.6 L, Hct 26.7 L, MCV 95.4 H, MCH 30.7, MCHC 32.2, RDW Std Deviation 53.2 H, RDW Coeff of Silvia 15.7 H, Plt Count 100 L, MPV 12.0, Immature Gran % (Auto) [facility], Neut % (Auto) [facility], Lymph % (Auto) MANA[facility], [place] % (Auto) [facility], Eos % (Auto) MANA[facility], Baso % (Auto) [facility], Absolute Neuts (auto) 4.3, Absolute Lymphs (auto) 0.60 L, Total Counted 100, Neutrophils % (Manual) 66, Band Neutrophils % 12 H, Lymphocytes % (Manual) 10 L, Monocytes % (Manual) 4, Eosinophils % (Manual) 3, Metamyelocytes % 1, Myelocytes % 3 H, Other Cells % 1, Nucleated RBC % [facility], Nucleated RBCs/100 WBC 2, Differential Comment SCANNED, Diff Path Review Reviewed, Platelet Estimate SLT DEC, Polychromasia 1+, Basophilic Stippling RARE, Sodium 135 L, Potassium 4.2, Chloride 101, Carbon Dioxide 22.0, Anion Gap 12, BUN 72 H, Creatinine 8.07 H*, Estim Creat Clear Calc 10.57, Est GFR (MDRD) Af Amer 9 L, Est GFR (MDRD) Non-Af 7 L, BUN/Creatinine Ratio 8.9 L, Glucose 86, Calcium 7.7 L 11/03/23 05:25: POC Glucose 70 L 11/03/23 06:35: POC Glucose 93 11/03/23 11:46: POC Glucose 83 11/03/23 17:19: POC Glucose 88 Micro: Microbiology 10/30/23 22:40 Sputum, Induced/Lukens Gram Stain - Final 10/30/23 22:40 Sputum, Induced/Lukens Respiratory Culture - Final Yeast, not Alana albicans 11/01/23 20:30 Stool Stool Occult Blood (EMILY) - Final Occult Blood Positive 10/30/23 01:45 Blood Culture (Wb) - Right Wrist Blood Culture - Preliminary No growth in 48 hours. 10/30/23 01:20 Blood Culture (Wb) - Venous Blood Culture - Preliminary No growth in 48 hours. 10/30/23 01:40 Urine, Clean Catch Urine Culture - Final Culture exhibits no growth. 10/30/23 03:00 Mucosa - Nose Respiratory Panel (PCR) - Final Human [place] 10/30/23 01:40 Urine Catheter - Catheter Legionella Antigen - Final 10/30/23 01:40 Urine Catheter - Bland Streptococcus pneumoniae Antigen (M - Final 10/30/23 01:40 Mucosa - Nose SARS-CoV-2, Influenza & RSV (PCR) - Final ABG Data ABG results: ABG 11/03/23 08:12 Specimen Type ART Sample Site R Radial pH 7.39 Bicarbonate Actual 21.0 L Total CO2 22 Base Excess -4 L O2 Saturation 95 O2 % 30.0 ABG pCO2 34.7 L ABG pO2 78 Respiration Rate 14 O2 Delivery Device Adult Vent Vent Mode AC Tidal Volume 500.0 Radiography Diagnostic Testing: Radiology Impression Brain CT 11/03/23 12:22 IMPRESSION: Mild atrophy and moderate periventricular white matter ischemic change. No acute bleed. If concern for acute infarct MRI recommended Electronically Signed: Shahbaz Aguirre MD at 17:06 EDT Reading Location ID and State: [facility] / [place] Tel , Service support , Rhythm Strip Rhythm Strip: Sinus Rhythm Rate: 69 Physical Exam Const Constitutional Narrative: Intubated and sedated HEENT normocephalic, head/scalp atraumatic and nasal mucous membranes and turbinates normal Chest inspection of chest normal Resp normal respiratory effort and no use of accessory muscles Resp Narrative: Decreased breath sounds bilaterally throughout with mild crackles noted. No wheezing noted. Cardio regular rate, regular rhythm, no murmurs and peripheral pulses 2+ throughout GI normal to inspection, nondistended, normoactive bowel sounds, soft to palpation, non-tender and non-distended Extremity normal to inspection and no clubbing, cyanosis or edema Skin no rashes or lesions noted Assessment & Plan Assessment/Plan (1) Acute respiratory failure: QUALIFIERS: Respiratory failure complication: hypoxia Qualified Code(s): J96.01 - Acute respiratory failure with hypoxia (2) End stage renal disease: (3) Pneumonia: PLAN: Plan 63-year-old male with multifactorial acute on chronic hypoxic respiratory failure His hemoglobin was 9.0 on admit, down trended to 7.9 shortly after with IV fluids. Downtrended again to hemoglobin 6.8 on 10/30. From his labs he does have anemia chronic disease on his seems like acute blood loss anemia. Differential diagnosis would include peptic ulcer disease, stress gastritis secondary to recent infection and intubation, angiodysplasia secondary to hemodialysis, telangiectasia. He should undergo an upper endoscopy to evaluate some of the GI tract. I talked to his and explained to her alternatives, risk, benefits including not withstanding bleeding, infection, sepsis, perforation, need for emergent surgery . He will have an ASA of 3 for the procedure. Hold tube feedings at midnight. 11/03/23- Acute on chronic anemia, concern for GI bleed. His hemoglobin was 8.4 today off of anticoagulation. ? Transfused 1 unit of packed red blood cells on 10/30, repeat hemoglobin 8.7. Hemoglobin has remained stable as of 11/01 and 11/02, however patient was noted to be Hemoccult positive on 11/01. Continue to hold home Eliquis. Plan is for egd tomorrow. Charges/Coding Visit Charges Inpatient E&M: 79527 Subs Hosp L3
[2023-11-03] MEDS: Nystatin Powder 15gm Bottle 1 APPLIC TOPICAL (21:19)
[2023-11-03] MEDS: Atorvastatin Calcium 20 MG Tablet GT (21:19)
--- NOTE | 2023-11-03 22:10 | NURSING ---
2209- at this time this RN shut off precedex and fentanyl drips d/t pt neurological exam. See OCT.
--- NOTE | 2023-11-03 22:49 | CT_ITS ---
EXAM: CT HEAD WITHOUT INTRAVENOUS CONTRAST CLINICAL INDICATION: neurol change in status. TECHNIQUE: Multiple axial images were obtained of the head without intravenous contrast. This CT exam was performed using one or more of the following dose reduction techniques: automated exposure control, adjustment of the mA and/or kV according to patient size, and/or use of iterative reconstruction technique. COMPARISON: CT head earlier on the same date. FINDINGS: BRAIN AND EXTRA-AXIAL SPACES: There is non-specific periventricular hypoattenuation which is most commonly related to chronic microvascular ischemic disease in a patient of this age. There is no mass, mass-effect, or shift of the midline structures. No evidence of acute infarct or acute intracranial hemorrhage. There is no evidence of pathologic extra-axial fluid. There is no hydrocephalus. Patent basal cisterns. BONES/JOINTS: Bilateral TMJ arthrosis. VASCULATURE: Arteriosclerosis. SINUSES: Trace mucosal thickening in the paranasal sinuses. MASTOID AIR CELLS: No significant effusion. ORBITS: Bilateral ocular lens extraction presumptively for the treatment of cataracts. Otherwise, no acute orbital pathology. NASAL CAVITY/SEPTUM: Chronic bilateral nasal bone deformities. CT/Brain/Head without Contrast IMPRESSION: Chronic microvascular ischemic changes. No CT evidence of acute intracranial pathology or significant change since prior. Electronically Signed: Juanito Starks DO at 23:31 EDT ,
[2023-11-04] VITALS (37 sets, daily range): BP systolic 124–185; BP diastolic 65–88; PULSE 64–83; RESP 14–22; TEMP 36.2–36.8; O2SAT 95–100; BMI 28.0
[2023-11-04 03:01] LABS: Bedside Glucose 90 mg/dL (74-106)
[2023-11-04 06:19] LABS: Base Excess -6 mmol/L (-2 to +2); Bicarbonate 19.9 mmol/L (22-26); Blood Gas Specimen Type ART; Mode CPAP/PS; O2 Delivery Device Adult Vent; PEEP 5; PO2 74 mmHG (75-100); SITE L Radial; SO2 94 % (95-99); Total Carbon Dioxide 21 mmol/L; pCO2 35.4 mmHg (35-45); pH 7.36 (7.35-7.45)
[2023-11-04 07:09] LABS: Bedside Glucose 86 mg/dL (74-106)
--- NOTE | 2023-11-04 07:23 | PN.CC_ITS ---
Assessment & Plan Assessment/Plan (1) CHF exacerbation: QUALIFIERS: Heart failure type: diastolic Qualified Code(s): I50.33 - Acute on chronic diastolic (congestive) heart failure (2) End stage renal disease: (3) Acute respiratory failure: QUALIFIERS: Respiratory failure complication: hypoxia Qualified Code(s): J96.01 - Acute respiratory failure with hypoxia PLAN: Plan RECOMMENDATIONS: 1. Await MRI and EEG 2. Hemodialysis per nephrology 3. Continue to monitor for A-fib 4. Await results of EGD 5. Transfuse blood with hemodialysis if needed 6. Potential extubation if neurologic status stabilizes 7. Continue Precedex therapy to facilitate extubation IMPRESSIONS: 1. Acute on chronic hypoxic respiratory failure secondary to CHF/reported COPD Patient appears to have multifaceted etiology for respiratory failure. Patient does have significant metabolic acidosis, likely secondary to poor renal clearance. Patient may have an element of bacterial infection, but also tested positive for human metapneumovirus. Patient also appears to be significantly fluid overloaded and would benefit from continued fluid removal. Patient r eportedly is on budesonide at baseline, so we will continue this moving forward. Will hold off on systemic steroids for now. Spontaneous breathing and awakening trials per protocol. Patient was able to pass a spontaneous breathing trial this morning. However, given patient's mental status changes, attempting to rule out seizure as an etiology prior to extubation. 2. Paroxysmal a flutter/volume overload/history of CVA Patient has not had significant hemodialysis in quite some time. Patient now in sinus rhythm. Would continue to hold Eliquis given guaiac positive stools. Patient does have left hemiparesis at baseline. Will hold apixaban as patient has significant anemia. Await results of upper GI 3. Diabetes mellitus type 2 Hemoglobin A1c is within normal limits. Continue with sliding scale. Okay to continue tube feeds after EGD if okay with GI. Blood sugars appear to be adequately controlled at this time. Patient with some hypoglycemia this morning, but likely secondary to n.p.o. related to EGD 4. End-stage renal disease with poor compliance Patient reportedly misses several hemodialysis sessions per month. Patient's creatinine is significantly elevated at presentation. Patient's blood gas is significant for a metabolic acidosis at presentation. Patient does have a tunneled hemodialysis line, so a line infection was treated for initially. Monitor clinically for sepsis as blood cultures are negative 5. Hypertension/GERD/RLS/anxiety/depression/seizure disorder/hyperlipidemia/chronic anemia Complicates care, management, recovery and prognosis. Okay to continue with baseline medications from my perspective. Patient's baseline hemoglobin appears to be approximately 9. Patient appeared to respond appropriately to blood transfusion. Patient currently intubated and sedated. No seizure activity has been noted. Okay to continue with Depakote. Continue to hold anticoagulation pending GI workup 6. Decreased reflexes Unclear etiology. Patient has had 2 CT scans in the last 24 hours that have been within normal limits. Patient reportedly goes unresponsive without any tonic-clonic activity noted. Patient has had some marginal blood sugars since holding of tube feeds associated with need for EGD. TIME: 34 minutes critical care time spent addressing patient's respiratory failure, ESRD, review of all data and collaboration with care team Subjective Subjective Patient with multiple events over last 24 hours. Yesterday, patient had difficulty during dialysis with a change in mental status. Patient improved throughout dialysis and CT at the end of dialysis was within normal limits. Patient again had an episode overnight that was similar with loss of reflexes and unresponsiveness. Sedation was discontinued and patient is back to his baseline at this time. No seizure activity has been reported. Patient able to tolerate spontaneous breathing trial this morning Objective Data Objective Data Vital Signs: Vital Signs Temp Pulse Resp BP Pulse Ox O2 Del Method O2 Flow Rate 36.2 C L 77 14 172/73 H 97 Mechanical Ventilator 11/04/23 05:00 11/04/23 07:00 11/04/23 07:00 11/04/23 07:00 11/04/23 07:00 11/04/23 07:00 10/31/23 08:00 FiO2 30 11/04/23 07:00 Oxygen Flow Rate (L/min) 30 Oxygen Delivery Method Mechanical Ventilator Weight: 88.904 kg Body Mass Index (BMI) 28.0 Intake & Output: Intake and Output for Last 24 Hours 11/02/23 11/03/23 11/04/23 23:59 23:59 23:59 Intake Total 2912.49 / 2925.49 500.93 / 500.93 Output Total 1567 / 1567 0 / 0 Balance 2895.49 / 2908.49 -1066.07 / -1066.07 0 / 0 Lab / Micro Data Attestation: I reviewed the patient's lab results. 11/03/23 03:22 11/03/23 03:22 Labs: Laboratory Results - last 24 hr 11/03/23 03:22: Diff Path Review Reviewed 11/03/23 11:46: POC Glucose 83 11/03/23 17:19: POC Glucose 88 11/04/23 01:02: POC Glucose 90 11/04/23 06:24: POC Glucose 86 Micro: Microbiology 10/30/23 01:20 Blood Culture (Wb) - Venous Blood Culture - Final No growth in 5 days. 10/30/23 01:45 Blood Culture (Wb) - Right Wrist Blood Culture - Final No growth in 5 days. 10/30/23 22:40 Sputum, Induced/Lukens Gram Stain - Final 10/30/23 22:40 Sputum, Induced/Lukens Respiratory Culture - Final Yeast, not Alana albicans 11/01/23 20:30 Stool Stool Occult Blood (EMILY) - Final Occult Blood Positive 10/30/23 01:40 Urine, Clean Catch Urine Culture - Final Culture exhibits no growth. 10/30/23 03:00 Mucosa - Nose Respiratory Panel (PCR) - Final Human [place] 10/30/23 01:40 Urine Catheter - Catheter Legionella Antigen - Final 10/30/23 01:40 Urine Catheter - Bland Streptococcus pneumoniae Antigen (M - Final 10/30/23 01:40 Mucosa - Nose SARS-CoV-2, Influenza & RSV (PCR) - Final ABG Data ABG results: ABG 11/03/23 11/04/23 08:12 06:16 Specimen Type ART ART Sample Site R Radial L Radial pH 7.39 7.36 Bicarbonate Actual 21.0 L 19.9 L Total CO2 22 21 Base Excess -4 L -6 L O2 Saturation 95 94 L O2 % 30.0 30.0 ABG pCO2 34.7 L 35.4 ABG pO2 78 74 L Richi Test N/A Respiration Rate 14 O2 Delivery Device Adult Vent Adult Vent Vent Mode AC CPAP/PS Tidal Volume 500.0 POC PEEP 5 Attestation: I personally reviewed and interpreted this ABG as follows: (Chronic metabolic acidosis with respiratory compensation) Radiography Diagnostic Testing: Radiology Impression Brain CT 11/03/23 12:22 IMPRESSION: Mild atrophy and moderate periventricular white matter ischemic change. No acute bleed. If concern for acute infarct MRI recommended Electronically Signed: Shahbaz Aguirre MD at 17:06 EDT , Brain CT 11/03/23 22:49 IMPRESSION: Chronic microvascular ischemic changes. No CT evidence of acute intracranial pathology or significant change since prior. Electronically Signed: Juanito Starks DO at 23:31 EDT , Rhythm Strip Rhythm Strip: Sinus Rhythm Rate: 78 Physical Exam Const Constitutional Narrative: Intubated and on breathing trial. RASS 0. Good ventilator synchrony. Vent day #6 General Appearance: patient mechanically ventilated HEENT normocephalic and head/scalp atraumatic Eyes conjunctivae normal Neck no lymphadenopathy and supple Lymph Lymphatic: no lymphadenopathy noted and no lymphedema noted Resp Auscultation: diminished lung sounds; Negative for rales, rhonchi or wheezes Cardio regular rhythm, S1 normal heart sound, S2 normal heart sound, no murmurs, no rub and no gallops Rhythm: abnormal rhythm irregularly irregular GI normal to inspection, nondistended, normoactive bowel sounds Extremity normal capillary refill, no clubbing, cyanosis or edema and no calf tenderness General Extremity: no tenderness to palpation of joints or extremities Skin Skin Narrative: Tunneled HD cath is clean, dry and intact General Skin Exam: no breakdown Neuro Neuro Narrative: Left-sided hemiparesis Psych Mood & Affect: flat affect Charges/Coding Procedures Hospitalists Procedures: 78186 Critical Care 1st Hr
--- NOTE | 2023-11-04 08:00 | MRI_ITS ---
STUDY: MRI BRAIN WITHOUT CONTRAST REASON FOR EXAM: Male, 63 years old. neuro, ALTERED MENTAL STATUS, PT UNRESPONSIVE TECHNIQUE: Standardized multiplanar fat and water weighted pulse sequences were obtained. COMPARISON: CT of the brain November 03, 2023 MRI of the brain August 02, 2023 FINDINGS: Atrophy and moderate periventricular white matter ischemic changes without mass effect or restricted diffusion.. Normal bilateral basal ganglia. Normal thalami. There is no extra-axial fluid accumulation. Normal flow voids within the major intracranial circulation suggesting patency by spin echo criteria. Normal sella turcica, pituitary gland, infundibular stalk, optic chiasm and hypothalamus. Normal tectal plate and pineal gland. Normal midbrain, savanna and medulla. Normal cerebellum. Normal basal cisterns. Normal bilateral temporal bones. Normal bilateral internal auditory canals. Postsurgical changes of the orbits. Mild mucosal thickening of the bilateral maxillary and ethmoid sinuses.. Normal calvarium and skull base. Normal visualized soft tissue structures. Normal visualized upper cervical spine. There is mild interval progression of the white matter disease when compared with previous exam MRI/Brain without Contrast IMPRESSION: Atrophy and moderate periventricular white matter ischemic change without evidence for acute infarct.. Electronically Signed: Shahbaz Aguirre MD at 16:34 EDT ,
--- NOTE | 2023-11-04 09:35 | NURSING ---
Returned call for Teto from [employer]. They will be signing off at this time. Re-consult if needed.
[2023-11-04] MEDS: Chlorhexidine 15 ML PO ×2 (10:18→20:26)
[2023-11-04] MEDS: CHLORHEXIDINE GLUC 2% CLOTH 1 EACH TOWELETTE TOPICAL (10:18)
[2023-11-04] MEDS: BRIMONIDINE 0.2% 5ML BOTTLE 1 DRP OPHTHALMIC ×2 (10:18→20:26)
[2023-11-04] MEDS: Latanoprost 0.005% 1 Bottle 1 DRP RIGHT EYE ×2 (10:19→20:26)
[2023-11-04] MEDS: amLODIPine 10 MG Tablet GT (10:21)
[2023-11-04] MEDS: Pantoprazole Sodium 40 MG in 0.9% Normal Saline (100mL MB+) 100 ML 330 MG IV (10:21)
[2023-11-04] MEDS: Nystatin Powder 15gm Bottle 1 APPLIC TOPICAL ×2 (10:22→20:26)
[2023-11-04] MEDS: Metoprolol Tartrate 25 MG Tablet GT (10:22)
[2023-11-04] MEDS: Divalproex Sodium 125 MG SPRINKLE 1000 MG NG ×2 (10:22→20:13)
[2023-11-04] MEDS: fentaNYL 100 MCG/2 ML Ampul 50 MCG IV (11:20)
[2023-11-04] MEDS: Midazolam 2 MG/2 ML Syringe IV ×2 (11:20→11:25)
--- NOTE | 2023-11-04 11:49 | OP.EGD_ITS ---
Patient Name: Gerber Woodward Procedure Date: 11/04/2023 11:11 AM Date of : 1960 Age: 63 Procedure: Upper GI endoscopy Indications: Suspected peptic ulcer Providers: Tim Villatoro DO Medicines: Monitored Anesthesia Care Patient Profile: This is a 63 year old male. Refer to note in patient chart for documentation of history and physical. Patient has symptoms of acute epigastric abdominal pain. Complications: No immediate complications. Procedure: Pre-Anesthesia Assessment: - Prior to the procedure, a History and Physical was performed, and patient medications and allergies were reviewed. The patient is competent. The risks and benefits of the procedure and the sedation options and risks were discussed with the patient. All questions were answered and informed consent was obtained. Patient identification and proposed procedure were verified by the physician in the pre-procedure area. Mental Status Examination: alert and oriented. Airway Examination: normal oropharyngeal airway and neck mobility. Respiratory Examination: clear to auscultation. CV Examination: normal. Prophylactic Antibiotics: The patient does not require prophylactic antibiotics. Prior Anticoagulants: The patient has taken no anticoagulant or antiplatelet agents. ASA Grade Assessment: IV - A patient with severe systemic disease that is a constant threat to life. After reviewing the risks and benefits, the patient was deemed in satisfactory condition to undergo the procedure. The anesthesia plan was to use monitored anesthesia care (MAC). Immediately prior to administration of medications, the patient was re-assessed for adequacy to receive sedatives. The heart rate, respiratory rate, oxygen saturations, blood pressure, adequacy of pulmonary ventilation, and response to care were monitored throughout the procedure. The physical status of the patient was re-assessed after the procedure. After obtaining informed consent, the endoscope was passed under direct vision. Throughout the procedure, the patient's blood pressure, pulse, and oxygen saturations were monitored continuously. The gastroscope was introduced through the mouth, and advanced to the second part of duodenum. The upper GI endoscopy was accomplished without difficulty. The patient tolerated the procedure well. Scope In: 11:20:58 AM Scope Out: 11:31:45 AM Total Procedure Duration Time 0 hours 10 minutes 47 seconds Findings: The examined esophagus was normal. Two oozing cratered gastric ulcers with pigmented material were found in the gastric body. The largest lesion was 10 mm in largest dimension. Area was successfully injected with 5 mL of a 0.1 mg/mL solution of epinephrine for drug delivery. Coagulation for hemostasis using heater probe was successful. For hemostasis, two hemostatic clips were successfully placed. Clip rewriter: [employer]. There was no bleeding at the end of the procedure. No gross lesions were noted in the duodenal bulb. Impression: - Normal esophagus. - Oozing gastric ulcers with pigmented material. Injected. Treated with a heater probe. Clips were placed. Clip rewriter: [employer]. - No gross lesions in the duodenal bulb. - No specimens collected. Recommendation: - Return patient to ICU for ongoing care. - Resume previous diet. - Continue present medications. Procedure Code(s): --- Professional --- 81870, Esophagogastroduodenoscopy, flexible, transoral; with control of bleeding, any method 40906, 59,51, Esophagogastroduodenoscopy, flexible, transoral; with directed submucosal injection(s), any substance CPT copyright 2021 [employer]. All rights reserved. The codes documented in this report are preliminary and upon parking meter servicer review may be revised to meet current compliance requirements. Tim Villatoro DO 11/04/2023 11:48:21 AM This report has been signed electronically. Number of Addenda: 0 Note Initiated On: 11/04/2023 11:11 AM
--- NOTE | 2023-11-04 11:49 | OP.CCLET_ITS ---
11/04/2023 Amish Han [address] [place] [address] Re : Upper GI endoscopy procedure for Gerber Woodward Dear Dr. Han This procedure was performed on Saturday, November 04, 2023. My impressions and recommendations are as follows: Impressions : - Normal esophagus. - Oozing gastric ulcers with pigmented material. Injected. Treated with a heater probe. Clips were placed. Clip gm mobile: [employer]. - No gross lesions in the duodenal bulb. - No specimens collected. Recommendations : - Return patient to ICU for ongoing care. - Resume previous diet. - Continue present medications. My findings are described in the full procedure note, which is enclosed. If I can be of further assistance, please feel free to contact me at . Sincerely, Tim Villatoro, 11/04/2023 11:48:21 AM This report has been signed electronically.
--- NOTE | 2023-11-04 13:08 | PN.RENAL_ITS ---
Subjective Subjective no new events Objective Data Objective Data Vital Signs: Vital Signs Temp Pulse Resp BP Pulse Ox O2 Del Method O2 Flow Rate 97.5 F L 78 18 165/70 H 100 Ambu-Bag 30 11/04/23 08:00 11/04/23 10:22 11/04/23 10:00 11/04/23 10:22 11/04/23 10:00 11/04/23 10:00 10/31/23 08:00 FiO2 30 11/04/23 10:00 Oxygen Flow Rate (L/min) 30 Oxygen Delivery Method Ambu-Bag Weight: 88.904 kg Body Mass Index (BMI) 28.0 Intake & Output: Intake and Output for Last 24 Hours 11/02/23 11/03/23 11/04/23 23:59 23:59 23:59 Intake Total 2912.49 / 2925.49 500.93 / 500.93 110 / 110 Output Total 1567 / 1567 0 / 0 Balance 2895.49 / 2908.49 -1066.07 / -1066.07 110 / 110 Lab / Micro Data 11/03/23 03:22 11/03/23 03:22 Labs: Laboratory Results - last 24 hr 11/03/23 03:22: Diff Path Review Reviewed 11/03/23 17:19: POC Glucose 88 11/04/23 01:02: POC Glucose 90 11/04/23 06:24: POC Glucose 86 Micro: Microbiology 10/30/23 01:20 Blood Culture (Wb) - Venous Blood Culture - Final No growth in 5 days. 10/30/23 01:45 Blood Culture (Wb) - Right Wrist Blood Culture - Final No growth in 5 days. 10/30/23 22:40 Sputum, Induced/Lukens Gram Stain - Final 10/30/23 22:40 Sputum, Induced/Lukens Respiratory Culture - Final Yeast, not Alana albicans 11/01/23 20:30 Stool Stool Occult Blood (EMILY) - Final Occult Blood Positive 10/30/23 01:40 Urine, Clean Catch Urine Culture - Final Culture exhibits no growth. 10/30/23 03:00 Mucosa - Nose Respiratory Panel (PCR) - Final Human [place] 10/30/23 01:40 Urine Catheter - Catheter Legionella Antigen - Final 10/30/23 01:40 Urine Catheter - Bland Streptococcus pneumoniae Antigen (M - Final 10/30/23 01:40 Mucosa - Nose SARS-CoV-2, Influenza & RSV (PCR) - Final ABG Data ABG results: ABG 11/04/23 06:16 Specimen Type ART Sample Site L Radial pH 7.36 Bicarbonate Actual 19.9 L Total CO2 21 Base Excess -6 L O2 Saturation 94 L O2 % 30.0 ABG pCO2 35.4 ABG pO2 74 L Richi Test N/A O2 Delivery Device Adult Vent Vent Mode CPAP/PS POC PEEP 5 Radiography Diagnostic Testing: Radiology Impression Brain CT 11/03/23 12:22 IMPRESSION: Mild atrophy and moderate periventricular white matter ischemic change. No acute bleed. If concern for acute infarct MRI recommended Electronically Signed: Shahbaz Aguirre MD at 17:06 EDT , Brain CT 11/03/23 22:49 IMPRESSION: Chronic microvascular ischemic changes. No CT evidence of acute intracranial pathology or significant change since prior. Electronically Signed: Juanito Starks DO at 23:31 EDT , Rhythm Strip Rhythm Strip: Sinus Rhythm Rate: 78 Physical Exam Narrative Intubated no obvious distress s1s2 no murmurs abdomen soft no edema AV fistula right forearm positive thrill and bruit Tunneled HD catheter dressing clean, dry and intact Assessment & Plan Assessment/Plan (1) End stage renal disease: PLAN: On hemodialysis Tuesday, , Tuesday schedule. Recently he has been going on late Tuesday and Tuesday. will maintain TTS schedule High-grade fevers. Respiratory panel positive for metapneumovirus. Anemia of chronic disease; GI consulted Acute on chronic respiratory failure, suspect multifactorial from volume overload, human metapneumovirus infection, possible bacterial infection. Currently on vent support.
[2023-11-04] MEDS: LORazepam 2 MG/ML Syringe IV (14:53)
--- NOTE | 2023-11-04 16:00 | CASEMGMT ---
Social Work Reason for SW intervention: Family collaboration; [facility] involvement. This greeting card writer the assigned oncology social worker for the ED at [facility] as well as assisting with SW needs in the ICU today. This greeting card writer became aware of patient's nephew, whom the patient has wither custody or guardianship of, being in the ED and requiring transfer to another hospital for care. Due to the need of the accepting hospital for Antonio to have the proper republican consent for treatment, this greeting card writer completed brief chart review for patient to determine patient's capacity to be involved in decision making for Antonio. Presented to patient's room, to check on patient's status. Patient still intubated. Nessa and patient's sister Thais in room. Introduced to self and role; patient continued to appear to sleep during SW visit. Nessa aware of Antonio being in the ED and asked after Antonio's wellbeing. This greeting card writer explained that Antonio does require continued treatment at another hospital and need to have someone to sign consent for treatment forms. From what this greeting card writer could ascertain from court documents and medical records review, it appears patient receives some type of long term or guardianship care of Antonio, prior to marriage to Nessa. This greeting card writer asked Nessa and Thais to go to the home and look for court documents in place for this patient, indicating this patient as the school custodian or guardian of patient's biological nephew Antonio Carter (age 15). This greeting card writer explained to Nessa, of need to see the court paperwork, to determine if Nessa is listed as a person who may sign consent to treatment forms for Antonio. Nessa showed this greeting card writer court documents, which appear to be child support related only, and only mention patient's name on the documents (not Nessa's). Let Nessa and Thais know that need something that says custody or guardianship. Due to emergent needs for patient's nephew and attempting to ensure safety of the minor, this greeting card writer did make a referral to [facility]. Spoke with Becky in the intake department. For safety needs of patient's malave, this greeting card writer explained that this patient is not in a situation to make decisions for Antonio, and unable to confirm that Nessa has any legal right to consent to treatment. In order to drive home dynamics of family situation, did have to report patient's medical status to CS. Additionally, there appears to be some discord between Nessa and Antonio, appearing to be a contributing factor to Antonio's stressors. [facility] for [facility], to assist with care needs for Antonio. Becca Parrish is the assigned worker. [facility] will continue to be involved, until at least patient is in a position to understand what has happened with Antonio, what Antonio's care needs are, so as to ensure the minor child's safety addressed. Plan: -SW to actively follow and will plan to meet with patient after patient is extubated and awake enough for conversation about what has happened with Antonio. -SW also remains available to assist with discharge planning as needed or indicated. -NADINE Kaur
[2023-11-04 17:19] LABS: Hematocrit 28.6 % (40-54); Hemoglobin 9.3 g/dL (13.0-16.5); Mean Corp Hgb Conc 32.5 g/dL (32-36); Mean Corpuscular Hgb 30.9 pg (27.0-32.0); Mean Platelet Vol. 10.8 fl (6.2-12.0); POSITIVE COUNT YES; POSITIVE MORPHOLOGY YES; Platelet Count 79 K/mm3 (150-450); RBC Distribution Width CV 15.4 % (11.6-14.6); RBC Distribution Width SD 52.3 fl (35.1-43.9); Red Blood Count 3.01 M/mm3 (4.6-6.2)
[2023-11-04 17:20] LABS: Differential Indicated MANUAL DIFF
[2023-11-04 17:42] LABS: Anion Gap 13 (5-15); BUN 64 mg/dL (7-18); BUN/Creat Ratio 8.7 RATIO (10-20); Chloride 100 mmol/L (98-107); Creatinine, Serum 7.38 mg/dL (0.70-1.30); EST Glomerular Filtration Rate 8 mL/min (>60); Est Glom Filt Rate - Afr Amer 10 mL/min (>60); Glucose 79 mg/dL (74-106); Potassium 4.3 mmol/L (3.5-5.1); Sodium Level 133 mmol/L (136-145); Thyroid Stim Hormone (TSH) 3.15 uIU/mL (0.358-3.74)
[2023-11-04 17:57] LABS: Eosinophil 1 % (0-5); Lymphocyte 16 % (19-41); Monocyte 8 % (0-10); Neutrophil-Band 4 % (0-5); Neutrophil-Segmented 71 % (47-70); Nucleated Red Bld Cells,Manual 1 % (0-5); Total Cells Counted 100 (MANUAL DIFF)
[2023-11-04 17:58] LABS: Platelet Estimate MOD DEC (ADEQ); Red Cell Morphology NORM C+C NORMAL (NORM C&C)
[2023-11-04 17:59] LABS: Absolute Lymphocyte Count 0.99 X10^3/uL (0.83-4.51); Absolute Neutrophil Count 4.7 X10^3/uL (2.0-7.7)
[2023-11-04 18:00] LABS: Pathologist Review May foll
--- NOTE | 2023-11-04 19:03 | PN.HOSP_ITS ---
Reason for Visit Reason for Visit: Diagnoses Acute on chronic diastolic (congestive) heart failure (10/30/23) Heart failure, unspecified (10/30/23) Pneumonia, unspecified organism (10/30/23) Acute respiratory failure with hypoxia (10/30/23) End stage renal disease (10/30/23) Subjective Subjective Patient was seen and examined today, he remains sedated and on the ventilator, patient underwent an EGD today which showed oozing gastric ulcers with pigmented material, clips were placed, and heater probe was used. Objective Data Objective Data Vital Signs: Vital Signs Temp Pulse Resp BP Pulse Ox O2 Del Method O2 Flow Rate 97.1 F L 66 14 157/72 H 98 Mechanical Ventilator 30 11/04/23 18:00 11/04/23 18:00 11/04/23 18:00 11/04/23 18:00 11/04/23 18:00 11/04/23 18:00 10/31/23 08:00 FiO2 30 11/04/23 18:00 Oxygen Flow Rate (L/min) 30 Oxygen Delivery Method Mechanical Ventilator Weight: 88.904 kg Body Mass Index (BMI) 28.0 Intake & Output: Intake and Output for Last 24 Hours 11/02/23 11/03/23 11/04/23 23:59 23:59 23:59 Intake Total 2912.49 / 2925.49 500.93 / 500.93 110 / 110 Output Total 1567 / 1567 0 / 0 Balance 2895.49 / 2908.49 -1066.07 / -1066.07 110 / 110 Lab / Micro Data 11/04/23 17:05 11/04/23 17:05 Labs: Laboratory Results - last 24 hr 11/04/23 01:02: POC Glucose 90 11/04/23 06:24: POC Glucose 86 11/04/23 17:05: WBC 6.2, RBC 3.01 L, Hgb 9.3 L, Hct 28.6 L, MCV 95.0 H, MCH 30.9, MCHC 32.5, RDW Std Deviation 52.3 H, RDW Coeff of Silvia 15.4 H, Plt Count 79 L, MPV 10.8, Neut % (Auto) Not Reportable, Absolute Neuts (auto) 4.7, Absolute Lymphs (auto) 0.99, Total Counted 100, Neutrophils % (Manual) 71 H, Band Neutrophils % 4, Lymphocytes % (Manual) 16 L, Monocytes % (Manual) 8, Eosinophils % (Manual) 1, Nucleated RBCs/100 WBC 1, Diff Path Review May foll, Platelet Estimate MOD DEC, RBC Morphology NORM C+C, Sodium 133 L, Potassium 4.3, Chloride 100, Carbon Dioxide 20.0 L, Anion Gap 13, BUN 64 H, Creatinine 7.38 H, Estim Creat Clear Calc 11.50, Est GFR (MDRD) Af Amer 10 L, Est GFR (MDRD) Non-Af 8 L, BUN/Creatinine Ratio 8.7 L, Glucose 79, Calcium 8.0 L, Ammonia 21.0, TSH 3.15 Micro: Microbiology 10/30/23 01:20 Blood Culture (Wb) - Venous Blood Culture - Final No growth in 5 days. 10/30/23 01:45 Blood Culture (Wb) - Right Wrist Blood Culture - Final No growth in 5 days. 10/30/23 22:40 Sputum, Induced/Lukens Gram Stain - Final 10/30/23 22:40 Sputum, Induced/Lukens Respiratory Culture - Final Yeast, not Alana albicans 11/01/23 20:30 Stool Stool Occult Blood (EMILY) - Final Occult Blood Positive 10/30/23 01:40 Urine, Clean Catch Urine Culture - Final Culture exhibits no growth. 10/30/23 03:00 Mucosa - Nose Respiratory Panel (PCR) - Final Human [place] 10/30/23 01:40 Urine Catheter - Catheter Legionella Antigen - Final 10/30/23 01:40 Urine Catheter - Bland Streptococcus pneumoniae Antigen (M - Final 10/30/23 01:40 Mucosa - Nose SARS-CoV-2, Influenza & RSV (PCR) - Final ABG Data ABG results: ABG 11/04/23 06:16 Specimen Type ART Sample Site L Radial pH 7.36 Bicarbonate Actual 19.9 L Total CO2 21 Base Excess -6 L O2 Saturation 94 L O2 % 30.0 ABG pCO2 35.4 ABG pO2 74 L Richi Test N/A O2 Delivery Device Adult Vent Vent Mode CPAP/PS POC PEEP 5 Radiography Diagnostic Testing: Radiology Impression Brain CT 11/03/23 22:49 IMPRESSION: Chronic microvascular ischemic changes. No CT evidence of acute intracranial pathology or significant change since prior. Electronically Signed: Juanito Starks DO at 23:31 EDT , Brain MRI 11/04/23 08:00 IMPRESSION: Atrophy and moderate periventricular white matter ischemic change without evidence for acute infarct.. Electronically Signed: Shahbaz Aguirre MD at 16:34 EDT , Rhythm Strip Rhythm Strip: Sinus Rhythm Rate: 78 Physical Exam Const Constitutional Narrative: Patient is currently sedated and on the ventilator HEENT normocephalic, head/scalp atraumatic and moist oral mucous membranes Eyes conjunctivae normal Neck no JVD and thyroid normal General: trachea midline Resp normal respiratory effort, no retractions, no use of accessory muscles and clear to auscultation bilaterally Auscultation: Negative for rales, rhonchi or wheezes Cardio regular rate, regular rhythm, S1 normal heart sound, S2 normal heart sound, no murmurs, no rub and no gallops GI normal to inspection, nondistended, normoactive bowel sounds, soft to palpation and non-distended Extremity no clubbing, cyanosis or edema Skin no rashes or lesions noted General Skin Exam: no breakdown Neuro Neuro Narrative: Patient is sedated and on the ventilator Psych Psych Narrative: Patient is sedated and on the ventilator Assessment & Plan Assessment/Plan (1) Acute respiratory failure: QUALIFIERS: Respiratory failure complication: hypoxia Qualified Code(s): J96.01 - Acute respiratory failure with hypoxia PLAN: Plan 1. Acute on chronic hypoxic respiratory failure-likely secondary to congestive heart failure and possibly chronic obstructive pulmonary disease-patient remains on the ventilator at this time, pulmonary medicine is participating in his care #2 end-stage renal disease requiring dialysis-nephrology is participating in his care, he remains on dialysis #3 paroxysmal a flutter-patient is in sinus rhythm at this time, due to his gastric ulcer, he will not be anticoagulated #4 acute blood loss anemia secondary to gastric ulcer on a backdrop of chronic anemia secondary to end-stage renal disease, requiring blood transfusion- gastroenterology is participating in his care, he remains on a PPI #5 type 2 diabetes-patient's blood sugars will be monitored, sliding scale insulin will be administered as needed #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
[2023-11-04] MEDS: Budesonide Respules 0.5 MG/2 ML AMPUL.NEB. INHALATION (19:06)
[2023-11-04 19:17] LABS: Bedside Glucose 74 mg/dL (74-106)
[2023-11-04] MEDS: Atorvastatin Calcium 20 MG Tablet GT (20:13)
[2023-11-04] MEDS: Gabapentin 100 MG Capsule GT (20:13)
[2023-11-04] MEDS: 0.9% Saline Lock 10 ML Syringe IV (20:13)
[2023-11-05] VITALS (48 sets, daily range): BP systolic 105–232; BP diastolic 57–82; PULSE 64–81; RESP 14–22; TEMP 36.3–36.7; O2SAT 95–100; BMI 28.2; BMI 28.1
[2023-11-05 01:59] LABS: Bedside Glucose 72 mg/dL (74-106)
[2023-11-05 04:57] LABS: Absolute Lymphocyte Count 0.93 X10^3/uL (0.83-4.51); Basophil# 0.03 X10^3/uL; Basophil% 0.5 % (0-1); Eosinophil# 0.18 X10^3/uL; Eosinophils% 2.8 % (0-5); Hematocrit 28.7 % (40-54); Hemoglobin 9.6 g/dL (13.0-16.5); Lymphocyte # 0.93 X10^3/ul (0.83-4.51); Lymphocyte % 14.5 % (19-41); Mean Corp Hgb Conc 33.4 g/dL (32-36); Mean Corpuscular Hgb 31.2 pg (27.0-32.0); Mean Corpuscular Volume 93.2 fL (80-94); Mean Platelet Vol. 11.9 fl (6.2-12.0); Monocyte# 0.45 X10^3/uL; NRBC Flagged by Analyzer 0.8 % (0-5); Neutrophil # 4.03 X10^3/uL (2.7-7.7); Neutrophil % 62.7 % (47-70); POSITIVE COUNT YES; POSITIVE MORPHOLOGY YES; Platelet Count 142 K/mm3 (150-450); RBC Distribution Width CV 15.7 % (11.6-14.6); RBC Distribution Width SD 51.7 fl (35.1-43.9); Red Blood Count 3.08 M/mm3 (4.6-6.2); White Blood Count 6.4 K/mm3 (4.4-11.0)
[2023-11-05 05:13] LABS: Differential Indicated SCAN CRITERIA MET
[2023-11-05] MEDS: 0.9% Saline Lock 10 ML Syringe IV ×2 (06:25→17:03)
[2023-11-05] MEDS: Gabapentin 100 MG Capsule GT ×2 (06:26→20:43)
[2023-11-05] MEDS: Dextrose 50%-Water 25 GM/50 ML DISP.SYRIN IV (06:27)
[2023-11-05] MEDS: fentaNYL drip 100 ML 5 MCG CONT INF (06:40)
[2023-11-05 06:52] LABS: Bedside Glucose 69 mg/dL (74-106)
[2023-11-05] MEDS: Budesonide Respules 0.5 MG/2 ML AMPUL.NEB. INHALATION ×2 (06:56→19:13)
[2023-11-05 07:33] LABS: Differential Comment SCANNED
[2023-11-05] MEDS: Pantoprazole Sodium 40 MG in 0.9% Normal Saline (100mL MB+) 100 ML 330 MG IV (08:15)
[2023-11-05] MEDS: Divalproex Sodium 125 MG SPRINKLE 1000 MG NG ×2 (08:15→20:46)
[2023-11-05] MEDS: amLODIPine 10 MG Tablet GT (08:16)
[2023-11-05] MEDS: Metoprolol Tartrate 25 MG Tablet GT (08:16)
[2023-11-05] MEDS: Nystatin Powder 15gm Bottle 1 APPLIC TOPICAL ×2 (08:16→20:43)
[2023-11-05] MEDS: Latanoprost 0.005% 1 Bottle 1 DRP RIGHT EYE ×2 (08:16→20:44)
[2023-11-05] MEDS: BRIMONIDINE 0.2% 5ML BOTTLE 1 DRP OPHTHALMIC ×2 (08:17→20:44)
[2023-11-05] MEDS: Chlorhexidine 15 ML PO ×2 (08:18→20:44)
[2023-11-05 08:49] LABS: Bedside Glucose 83 mg/dL (74-106)
--- NOTE | 2023-11-05 09:09 | CPS ---
patient switched to cpap with ps 5 peep 5 for weaning trial.
--- NOTE | 2023-11-05 09:14 | CPS ---
nif attempted times 3 with results of -15, -16 and -12.
[2023-11-05] MEDS: NEPRO TUBE FEED 1,000 ML 20 ML GT (09:53)
--- NOTE | 2023-11-05 11:22 | PN.HOSP_ITS ---
Reason for Visit Reason for Visit: Diagnoses Acute on chronic diastolic (congestive) heart failure (10/30/23) Heart failure, unspecified (10/30/23) Pneumonia, unspecified organism (10/30/23) Acute respiratory failure with hypoxia (10/30/23) End stage renal disease (10/30/23) Subjective Subjective Patient was seen and examined today, he remains under sedation on the ventilator at this time. Hemoglobin today was 9.6 Objective Data Objective Data Vital Signs: Vital Signs Temp Pulse Resp BP Pulse Ox O2 Del Method O2 Flow Rate 97.5 F L 68 14 157/70 H 98 Mechanical Ventilator 11/05/23 08:00 11/05/23 11:15 11/05/23 11:15 11/05/23 10:00 11/05/23 11:15 11/05/23 10:00 10/31/23 08:00 FiO2 30 11/05/23 10:00 Oxygen Flow Rate (L/min) 30 Oxygen Delivery Method Mechanical Ventilator Weight: 89.312 kg Body Mass Index (BMI) 28.2 Intake & Output: Intake and Output for Last 24 Hours 11/03/23 11/04/23 11/05/23 23:59 23:59 23:59 Intake Total 500.93 / 500.93 225.0 / 230.0 217.50 / 217.50 Output Total 1567 / 1567 0 / 0 160 / 160 Balance -1066.07 / -1066.07 225.0 / 230.0 57.50 / 57.50 Lab / Micro Data 11/05/23 04:50 11/04/23 17:05 Labs: Laboratory Results - last 24 hr 11/04/23 17:05: WBC 6.2, RBC 3.01 L, Hgb 9.3 L, Hct 28.6 L, MCV 95.0 H, MCH 30.9, MCHC 32.5, RDW Std Deviation 52.3 H, RDW Coeff of Silvia 15.4 H, Plt Count 79 L, MPV 10.8, Neut % (Auto) Not Reportable, Absolute Neuts (auto) 4.7, Absolute Lymphs (auto) 0.99, Total Counted 100, Neutrophils % (Manual) 71 H, Band Neutrophils % 4, Lymphocytes % (Manual) 16 L, Monocytes % (Manual) 8, Eosinophils % (Manual) 1, Nucleated RBCs/100 WBC 1, Diff Path Review December foll, Platelet Estimate MOD DEC, RBC Morphology NORM C+C, Sodium 133 L, Potassium 4.3, Chloride 100, Carbon Dioxide 20.0 L, Anion Gap 13, BUN 64 H, Creatinine 7.38 H, Estim Creat Clear Calc 11.50, Est GFR (MDRD) Af Amer 10 L, Est GFR (MDRD) Non-Af 8 L, BUN/Creatinine Ratio 8.7 L, Glucose 79, Calcium 8.0 L, Ammonia 21.0, TSH 3.15 11/04/23 19:00: POC Glucose 74 11/05/23 01:39: POC Glucose 72 L 11/05/23 04:50: WBC 6.4, RBC 3.08 L, Hgb 9.6 L, Hct 28.7 L, MCV 93.2, MCH 31.2, MCHC 33.4, RDW Std Deviation 51.7 H, RDW Coeff of Silvia 15.7 H, Plt Count 142 L, MPV 11.9, Immature Gran % (Auto) 12.500 H, Neut % (Auto) 62.7, Lymph % (Auto) 14.5 L, [place] % (Auto) 7.0, Eos % (Auto) 2.8, Baso % (Auto) 0.5, Absolute Neuts (auto) 4.0, Absolute Lymphs (auto) 0.93, Nucleated RBC % 0.8, Differential Comment SCANNED, Diff Path Review December carolin, Sodium Cancelled, Potassium Cancelled, Chloride Cancelled, Carbon Dioxide Cancelled, Anion Gap Cancelled, BUN Cancelled, Creatinine Cancelled, Estim Creat Clear Calc Cancelled, Est GFR (MDRD) Af Amer Cancelled, Est GFR (MDRD) Non-Af Cancelled, BUN/Creatinine Ratio Cancelled, Glucose Cancelled, Calcium Cancelled 11/05/23 06:18: POC Glucose 69 L 11/05/23 06:20: Sodium Cancelled, Potassium Cancelled, Chloride Cancelled, Carbon Dioxide Cancelled, Anion Gap Cancelled, BUN Cancelled, Creatinine Cancelled, Estim Creat Clear Calc Cancelled, Est GFR (MDRD) Af Amer Cancelled, Est GFR (MDRD) Non-Af Cancelled, BUN/Creatinine Ratio Cancelled, Glucose Cancelled, Calcium Cancelled 11/05/23 08:11: POC Glucose 83 Micro: Microbiology 10/30/23 01:20 Blood Culture (Wb) - Venous Blood Culture - Final No growth in 5 days. 10/30/23 01:45 Blood Culture (Wb) - Right Wrist Blood Culture - Final No growth in 5 days. 10/30/23 22:40 Sputum, Induced/Lukens Gram Stain - Final 10/30/23 22:40 Sputum, Induced/Lukens Respiratory Culture - Final Yeast, not Alana albicans 11/01/23 20:30 Stool Stool Occult Blood (EMILY) - Final Occult Blood Positive 10/30/23 01:40 Urine, Clean Catch Urine Culture - Final Culture exhibits no growth. 10/30/23 03:00 Mucosa - Nose Respiratory Panel (PCR) - Final Human [place] 10/30/23 01:40 Urine Catheter - Catheter Legionella Antigen - Final 10/30/23 01:40 Urine Catheter - Bland Streptococcus pneumoniae Antigen (M - Final 10/30/23 01:40 Mucosa - Nose SARS-CoV-2, Influenza & RSV (PCR) - Final Radiography Diagnostic Testing: Radiology Impression Brain MRI 11/04/23 08:00 IMPRESSION: Atrophy and moderate periventricular white matter ischemic change without evidence for acute infarct.. Electronically Signed: Shahbaz Aguirre MD at 16:34 EDT , Rhythm Strip Rhythm Strip: Sinus Rhythm Rate: 78 Physical Exam Narrative Constitutional Narrative: Patient is currently sedated and on the ventilator HEENT normocephalic, head/scalp atraumatic and moist oral mucous membranes Eyes conjunctivae normal Neck no JVD and thyroid normal General: trachea midline Resp normal respiratory effort, no retractions, no use of accessory muscles and clear to auscultation bilaterally Auscultation: Negative for rales, rhonchi or wheezes Cardio regular rate, regular rhythm, S1 normal heart sound, S2 normal heart sound, no murmurs, no rub and no gallops GI normal to inspection, nondistended, normoactive bowel sounds, soft to palpation and non-distended Extremity no clubbing, cyanosis or edema Skin no rashes or lesions noted General Skin Exam: no breakdown Neuro Neuro Narrative: Patient is sedated and on the ventilator Psych Psych Narrative: Patient is sedated and on the ventilator Assessment & Plan Assessment/Plan (1) Acute respiratory failure: QUALIFIERS: Respiratory failure complication: hypoxia Qualified Code(s): J96.01 - Acute respiratory failure with hypoxia PLAN: Plan 1. Acute on chronic hypoxic respiratory failure-likely secondary to congestive heart failure and possibly chronic obstructive pulmonary disease-patient remains on the ventilator at this time, pulmonary medicine is participating in his care #2 end-stage renal disease requiring dialysis-nephrology is participating in his care, he remains on dialysis #3 paroxysmal a flutter-patient is in sinus rhythm at this time, due to his gastric ulcer, he will not be anticoagulated #4 acute blood loss anemia secondary to gastric ulcer on a backdrop of chronic anemia secondary to end-stage renal disease, requiring blood transfusion- gastroenterology is participating in his care, he remains on a PPI, hemoglobin remained stable at this time #5 type 2 diabetes-patient's blood sugars will be monitored, sliding scale insulin will be administered as needed #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
--- NOTE | 2023-11-05 11:32 | PN.CC_ITS ---
Objective Data Objective Data Vital Signs: Vital Signs Last response Temperature 36.4 C L 11/05/23 08:00 Temperature Source Temporal 11/05/23 08:00 Pulse Rate 68 11/05/23 11:15 Pulse Strength Normal (2+) 11/03/23 21:43 Respiratory Rate 14 11/05/23 11:15 Respiratory Effort Mechanically Ventilated 11/05/23 09:00 Respiratory Depth Normal 11/05/23 09:00 Respiratory Pattern Normal 11/05/23 11:15 Blood Pressure 157/70 H 11/05/23 10:00 Blood Pressure Mean 99 11/05/23 10:00 Blood Pressure Source Monitor 11/05/23 10:00 Blood Pressure Position Semi-Fowlers 11/05/23 10:00 Blood Pressure Location Left Arm 11/05/23 10:00 Pulse Ox 98 11/05/23 11:15 Oxygen Delivery Method Mechanical Ventilator 11/05/23 10:00 Oxygen Flow Rate (L/min) 30 10/31/23 08:00 Fraction of Inspired Oxygen (FIO2) 30 11/05/23 10:00 I&O: I&O Last 24 Hours 11/04/23 11/04/23 11/05/23 11:59 23:59 11:59 Intake Total 225.0 / 230.0 222.50 / 222.50 Output Total 0 / 0 160 / 160 Balance 0 / 230.0 225.0 / 230.0 62.50 / 62.50 I&O: Total Stay 10/30/23 00:58 thru 11/05/23 11:00 Intake Total 7972.85 Output Total 6769 Balance 1203.85 Current Meds Ordered / Administered: Current meds ordered / Administered Generic Name Dose Route Start Last Admin Trade Name Freq PRN Reason Stop Dose Admin Acetaminophen 650 mg 10/31/23 01:16 11/01/23 14:26 Acetaminophen 650 Mg/20 Ml Udc GT 650 mg Q4H PRN PRN Administration Fever, pain 1-1010 Al Hydroxide/Mg Hydroxide 30 ml 10/31/23 01:19 Mag Hydrox/Al Hydrox/Simeth 30 Ml Udc GT Q6H PRN PRN Gastric Burning Albuterol Sulfate 2.5 mg 10/30/23 04:19 11/01/23 01:40 Albuterol 2.5 Mg/3 Ml Vial.Neb. INHALATION 2.5 mg Q2H PRN PRN Administration Dyspnea, wheezing Amlodipine Besylate 10 mg 10/31/23 10:00 11/05/23 08:16 Amlodipine 10 Mg Tablet GT 10 mg DAILY FREDERIC Administration Protocol Atorvastatin Calcium 20 mg 10/31/23 22:00 11/04/23 20:13 Atorvastatin Calcium 20 Mg Tablet GT 20 mg QHS FREDERIC Administration Brimonidine Tartrate 1 drp 10/30/23 10:00 11/05/23 08:17 Brimonidine 0.2% 5ml Bottle OPHTHALMIC 1 drp BID FREDERIC Administration Budesonide 0.5 mg 10/30/23 04:19 11/05/23 06:56 Budesonide Respules 0.5 Mg/2 Ml Ampul.Neb. INHALATION 0.5 mg BID.RT FREDERIC Administration Chlorhexidine Gluconate 15 ml 10/30/23 22:10 11/05/23 08:18 Chlorhexidine 15 Ml PO 15 ml BID FREDERIC Administration Chlorhexidine Gluconate 1 each 10/31/23 10:00 11/05/23 09:43 Chlorhexidine Gluc 2% Cloth 1 Each [place] TOPICAL Not Given DAILY [facility] Dextrose 0 gm 10/30/23 04:19 11/05/23 06:27 Dextrose 50%-Water 25 Gm/50 Ml Disp.Syrin IV 12.5 gm X1 PRN Administration HYPOGLYCEMIA Protocol Divalproex Sodium 1,000 mg 10/31/23 10:00 11/05/23 08:15 Divalproex Sodium 125 Mg Sprinkle NG 1,000 mg BID FREDERIC Administration Gabapentin 100 mg 10/31/23 06:00 11/05/23 06:26 Gabapentin 100 Mg Capsule GT 100 mg TID FREDERIC Administration Glucagon 1 mg 10/30/23 04:19 Glucagon 1 Mg/Ml Syringe IM X1 PRN HYPOGLYCEMIA Guaifenesin 20 ml 10/31/23 01:19 Guaifenesin 10 Ml Udc (200mg/10ml) GT Q4H PRN PRN COUGH Hemodialysis Solution 6 bag 11/05/23 07:30 Pureflow B 3k Dialysis Soln 1 Bag PF 11/05/23 19:28 UD [facility] Protocol Heparin Sodium (Porcine) 1,000 - 3,000 units 11/05/23 07:26 Heparin 10,000 Units/10 Ml Vial IV 11/05/23 19:26 X1 PRN HD catheter closing Hydralazine HCl 10 mg 10/30/23 04:19 Hydralazine 20 Mg/Ml Vial IV Q4H PRN PRN SBP > 160 Protocol Sodium Chloride 250 mls @ 15 mls/hr 10/30/23 04:44 IV .[id number] PRN Additional IVPB Infusion Sodium Chloride 250 mls @ 15 mls/hr 10/30/23 04:44 IV .[id number] PRN Saline Flush Propofol 1,000 mg in 100 mls @ 5.389 mls/hr 10/30/23 22:10 11/05/23 11:25 Diprivan CONT INF Not Given .Q12H FREDERIC Protocol 10 MCG/KG/MIN Fentanyl 100 mls @ 2.5 mls/hr 10/30/23 22:10 11/05/23 11:00 CONT INF 50 mcg/hr UD FREDERIC 5 mls/hr Titration Protocol 25 MCG/HR Pantoprazole Sodium 40 mg/ 110 mls @ 330 mls/hr 10/30/23 22:10 11/05/23 09:14 Sodium Chloride IV Infused Q24 FREDERIC Infusion Enteral Nutritional Formula 1,000 mls @ 50 mls/hr 10/31/23 10:15 11/05/23 09:53 Nepro Carb Steady GT 20 mls/hr .Q20H FREDERIC Administration Dexmedetomidine HCl 400 mcg/ 100 mls @ 11.226 mls/hr 11/03/23 07:00 11/05/23 03:41 Sodium Chloride CONT INF Not Given .Q8H55M FREDERIC Protocol 0.5 MCG/KG/HR Insulin Human Lispro 0 unit 11/01/23 18:00 11/05/23 06:25 Insulin Lispro 100 Unit/Ml Insuln.Pen SC Not Given Q6 FREDERIC Protocol Latanoprost 1 drp 10/30/23 10:00 11/05/23 08:16 Latanoprost 0.005% 1 Bottle RIGHT EYE 1 drp BID FREDERIC Administration Melatonin 3 mg 10/31/23 01:19 Melatonin 3 Mg Tablet GT QHS PRN PRN INSOMNIA Metoprolol Tartrate 25 mg 10/31/23 10:00 11/05/23 08:16 Metoprolol Tartrate 25 Mg Tablet GT 25 mg DAILY FREDERIC Administration Protocol Nystatin 1 applic 11/03/23 22:00 11/05/23 08:16 Nystatin Powder 15gm Bottle TOPICAL 1 applic BID FREDERIC Administration Protocol Ondansetron HCl 4 mg 10/30/23 04:19 Ondansetron 4 Mg/2 Ml Vial IV Q8H PRN PRN NAUSEA/VOMITING Prochlorperazine Edisylate 5 mg 10/30/23 04:19 Prochlorperazine 10 Mg/2 Ml Vial IV Q4H PRN PRN Breakthrough Nausea/Vomiting Senna/Docusate Sodium 2 tablet 10/31/23 01:20 Senna/Docusate Sodium 1 Tablet GT BID PRN PRN Constipation Sodium Chloride 10 - 40 ml 10/30/23 04:44 11/05/23 06:25 0.9% Saline Lock 10 Ml Syringe IV 30 ml UD PRN Administration SALINE FLUSH Sodium Chloride 5 ml 10/30/23 22:10 Sodium Cl For Inhalation 15 Ml Vial.Neb. INHALATION Q5M PRN Suctioning Sodium Chloride 1,000 ml 11/05/23 07:30 0.9% Normal Saline 1,000 Ml Iv.Soln. OPERA.SITE 11/05/23 19:26 X1 FREDERIC Sodium Chloride 200 ml 11/05/23 07:26 0.9% Normal Saline 1,000 Ml Iv.Soln. IV 11/05/23 19:26 X1 PRN to maintain SBP >90mmHg during Dialysis Lab / Micro Data 11/05/23 04:50 11/05/23 13:45 Labs: Laboratory Results - last 24 hr 11/04/23 17:05: WBC 6.2, RBC 3.01 L, Hgb 9.3 L, Hct 28.6 L, MCV 95.0 H, MCH 30.9, MCHC 32.5, RDW Std Deviation 52.3 H, RDW Coeff of Silvia 15.4 H, Plt Count 79 L, MPV 10.8, Neut % (Auto) Not Reportable, Absolute Neuts (auto) 4.7, Absolute Lymphs (auto) 0.99, Total Counted 100, Neutrophils % (Manual) 71 H, Band Neut rophils % 4, Lymphocytes % (Manual) 16 L, Monocytes % (Manual) 8, Eosinophils % (Manual) 1, Nucleated RBCs/100 WBC 1, Diff Path Review December, Platelet Estimate MOD DEC, RBC Morphology NORM C+C, Sodium 133 L, Potassium 4.3, Chloride 100, Carbon Dioxide 20.0 L, Anion Gap 13, BUN 64 H, Creatinine 7.38 H, Estim Creat Clear Calc 11.50, Est GFR (MDRD) Af Amer 10 L, Est GFR (MDRD) Non-Af 8 L, BUN/Creatinine Ratio 8.7 L, Glucose 79, Calcium 8.0 L, Ammonia 21.0, TSH 3.15 11/04/23 19:00: POC Glucose 74 11/05/23 01:39: POC Glucose 72 L 11/05/23 04:50: WBC 6.4, RBC 3.08 L, Hgb 9.6 L, Hct 28.7 L, MCV 93.2, MCH 31.2, MCHC 33.4, RDW Std Deviation 51.7 H, RDW Coeff of Silvia 15.7 H, Plt Count 142 L, MPV 11.9, Immature Gran % (Auto) 12.500 H, Neut % (Auto) 62.7, Lymph % (Auto) 14.5 L, [place] % (Auto) 7.0, Eos % (Auto) 2.8, Baso % (Auto) 0.5, Absolute Neuts (auto) 4.0, Absolute Lymphs (auto) 0.93, Nucleated RBC % 0.8, Differential Comment SCANNED, Diff Path Review December foll, Sodium Cancelled, Potassium Cancelled, Chloride Cancelled, Carbon Dioxide Cancelled, Anion Gap Cancelled, BUN Cancelled, Creatinine Cancelled, Estim Creat Clear Calc Cancelled, Est GFR (MDRD) Af Amer Cancelled, Est GFR (MDRD) Non-Af Cancelled, BUN/Creatinine Ratio Cancelled, Glucose Cancelled, Calcium Cancelled 11/05/23 06:18: POC Glucose 69 L 11/05/23 06:20: Sodium Cancelled, Potassium Cancelled, Chloride Cancelled, Carbon Dioxide Cancelled, Anion Gap Cancelled, BUN Cancelled, Creatinine Cancelled, Estim Creat Clear Calc Cancelled, Est GFR (MDRD) Af Amer Cancelled, Est GFR (MDRD) Non-Af Cancelled, BUN/Creatinine Ratio Cancelled, Glucose Cancelled, Calcium Cancelled 11/05/23 08:11: POC Glucose 83 Rhythm Strip Rhythm Strip: Sinus Rhythm Rate: 78 Imaging Radiology Impression Brain MRI 11/04/23 08:00 IMPRESSION: Atrophy and moderate periventricular white matter ischemic change without evidence for acute infarct.. Electronically Signed: Shahbaz Aguirre MD at 16:34 EDT , Assessment and Plan . Assessment and plan: Patient seen and examined Chart and data reviewed He is sedated, but will respond and interact appropriately MRI noted HD planned for later today He apparently did poorly w/ SBT earlier today MV 7-8 LPM, PIP 23, O2 0.3 EXAM GEN NAD VS as above HEENT ARTURO NECK supple COR RRR CHEST CTA ABD soft EXT minimal edema SKIN w/d JAIDA NF ASSESSMENT 1. Acute respiratory failure requiring MV support 2. Encephalopathy 3. ESRD 4. Poor medical compliance 5. H/O MR and PAH TREATMENT PLAN -MV support -sedation as needed -HD w/ UF today -SBT in am -enteral nutrition -VTE ppx Critical Care Time: 50 min The entirety of this encounter was done via Telemedicine
[2023-11-05 11:57] LABS: Bedside Glucose 88 mg/dL (74-106)
[2023-11-05 14:08] LABS: Anion Gap 13 (5-15); BUN 76 mg/dL (7-18); Calcium,Total 7.9 mg/dL (8.5-10.1); Chloride 100 mmol/L (98-107); Creatinine, Serum 8.41 mg/dL (0.70-1.30); EST Glomerular Filtration Rate 7 mL/min (>60); Est Glom Filt Rate - Afr Amer 8 mL/min (>60); Estimated Creatinine Clearance 10.11 ml/min; Glucose 106 mg/dL (74-106); Potassium 4.1 mmol/L (3.5-5.1); Sodium Level 133 mmol/L (136-145)
[2023-11-05] MEDS: 0.9% Normal Saline 1,000 ML IV.SOLN. 1000 ML OPERA.SITE (14:22)
[2023-11-05] MEDS: PureFlow B 3K Dialysis Soln 1 BAG 6 BAG PF (15:17)
[2023-11-05] MEDS: Heparin 10,000 UNITS/10 ML Vial IV (16:22)
[2023-11-05] MEDS: hydrALAZINE 20 MG/ML Vial 10 MG IV (17:03)
[2023-11-05 17:31] LABS: Bedside Glucose 103 mg/dL (74-106)
--- NOTE | 2023-11-05 18:00 | CASEMGMT ---
Social Work Checked in with nursing today.? Patient remains intubated.? Patient is awake at times.? Updated nursing to what has happened with patient's nephew Antonio (refer to SW note from 11.04.23).? ? Though patient is awake at times, not yet able to engage fully in conversations of this sensitive nature.?? Patient's nephew is safe at this time and receiving care appropriate to level of care needs. Plan: -SW to actively follow and will plan to meet with patient after patient is extubated and awake enough for conversation about what has happened with patient's nephew Antonio on 11.04.23. -SW also remains available to assist with discharge planning as needed or indicated. -NADINE Kaur
[2023-11-05] MEDS: Albuterol 2.5 MG/3 ML VIAL.NEB. INHALATION (19:13)
[2023-11-05] MEDS: CHLORHEXIDINE GLUC 2% CLOTH 1 EACH TOWELETTE TOPICAL (20:43)
[2023-11-05] MEDS: Atorvastatin Calcium 20 MG Tablet GT (20:46)
[2023-11-05] MEDS: dexMEDEtomidine 400 MCG in 0.9% Normal Saline (100mL Bag) 96 ML 11.2 MCG CONT INF (21:29)
[2023-11-05] MEDS: Insulin Lispro 100 UNIT/ML INSULN.PEN SC (23:20)
[2023-11-05] MEDS: fentaNYL drip 100 ML 10 MCG CONT INF (23:23)
[2023-11-06] VITALS (34 sets, daily range): BP systolic 129–162; BP diastolic 58–115; PULSE 66–96; RESP 12–25; TEMP 36.1–36.6; O2SAT 88–98; BMI 28.0
[2023-11-06 03:27] LABS: Bedside Glucose 161 mg/dL (74-106)
[2023-11-06 04:52] LABS: Allen Test Positive; Base Excess -4 mmol/L (-2 to +2); Bicarbonate 20.4 mmol/L (22-26); Blood Gas Specimen Type ART; Mode AC; O2 Delivery Device Adult Vent; PEEP 5; PO2 95 mmHG (75-100); RR 14; SITE L Radial; SO2 98 % (95-99); Total Carbon Dioxide 21 mmol/L; pH 7.43 (7.35-7.45)
[2023-11-06 04:57] LABS: Hematocrit 28.5 % (40-54); Hemoglobin 9.5 g/dL (13.0-16.5); Mean Corp Hgb Conc 33.3 g/dL (32-36); Mean Corpuscular Volume 93.1 fL (80-94); POSITIVE COUNT YES; POSITIVE MORPHOLOGY YES; Platelet Count 138 K/mm3 (150-450); RBC Distribution Width CV 15.4 % (11.6-14.6); RBC Distribution Width SD 51.2 fl (35.1-43.9); Red Blood Count 3.06 M/mm3 (4.6-6.2); White Blood Count 6.7 K/mm3 (4.4-11.0)
[2023-11-06 05:13] LABS: Differential Indicated MANUAL DIFF
[2023-11-06] MEDS: Gabapentin 100 MG Capsule GT ×2 (05:20→12:51)
[2023-11-06] MEDS: Insulin Lispro 100 UNIT/ML INSULN.PEN SC (05:20)
[2023-11-06] MEDS: 0.9% Saline Lock 10 ML Syringe IV ×2 (05:20→17:14)
--- NOTE | 2023-11-06 05:36 | RAD_ITS ---
STUDY: XR Chest 1 View 11/06/2023 5:39 AM REASON FOR EXAM: Male, 63 years old. arf COMPARISON: 10.30.23 TECHNIQUE: XR Chest 1 View FINDINGS: There is a right pleural effusion. ET tube and NG tube in good position. There is no pneumothorax. Right vascular line in place. Tip in the superior vena caval atrial junction. Diffuse left infiltrate. Enlarged heart size. Normal mediastinum. Normal kayla. Prominent appearing increased interstitial lung markings. Normal visualized pulmonary arteries. There is atherosclerotic calcification of the aortic arch with tortuosity. There are diffuse degenerative changes of the visualized thoracic spine. There is degenerative osteoarthritis of the bilateral shoulders. There are no acute findings of the upper abdomen. RAD/Chest 1 View (Portable) IMPRESSION: Pulmonary findings appear improved. Electronically Signed: José Luis Padilla MD at 16:54 EDT ,
[2023-11-06 05:41] LABS: Bedside Glucose 194 mg/dL (74-106)
[2023-11-06 06:15] LABS: Neutrophil-Band 2 % (0-5); Neutrophil-Segmented 76 % (47-70); Total Cells Counted 100 (MANUAL DIFF)
[2023-11-06 06:16] LABS: Absolute Neutrophil Count 5.2 X10^3/uL (2.0-7.7); Eosinophil 2 % (0-5); Lymphocyte 11 % (19-41); Monocyte 9 % (0-10)
[2023-11-06 06:17] LABS: Absolute Lymphocyte Count 0.74 X10^3/uL (0.83-4.51)
[2023-11-06] MEDS: Budesonide Respules 0.5 MG/2 ML AMPUL.NEB. INHALATION ×2 (07:04→19:27)
--- NOTE | 2023-11-06 07:45 | PN.HOSP_ITS ---
Reason for Visit Reason for Visit: Diagnoses Acute on chronic diastolic (congestive) heart failure (10/30/23) Heart failure, unspecified (10/30/23) Pneumonia, unspecified organism (10/30/23) Acute respiratory failure with hypoxia (10/30/23) End stage renal disease (10/30/23) Subjective Subjective Patient was seen and examined today, he remains on the ventilator and sedated. Patient's hemoglobin remained stable at this time, patient underwent dialysis yesterday. Objective Data Objective Data Vital Signs: Vital Signs Temp Pulse Resp BP Pulse Ox O2 Del Method O2 Flow Rate 97.5 F L 71 14 142/64 H 96 Mechanical Ventilator 11/06/23 05:00 11/06/23 07:04 11/06/23 07:04 11/06/23 07:00 11/06/23 07:04 11/06/23 07:00 10/31/23 08:00 FiO2 30 11/06/23 07:04 Oxygen Flow Rate (L/min) 30 Oxygen Delivery Method Mechanical Ventilator Weight: 88.9 kg Body Mass Index (BMI) 28.0 Intake & Output: Intake and Output for Last 24 Hours 11/04/23 11/05/23 11/06/23 23:59 23:59 23:59 Intake Total 225.0 / 230.0 914.65 / 1082.02 862.66 / 862.66 Output Total 0 / 0 2240 / 2240 35 / 35 Balance 225.0 / 230.0 -1325.35 / -1157.98 827.66 / 827.66 Lab / Micro Data 11/06/23 04:40 11/05/23 13:45 Labs: Laboratory Results - last 24 hr 11/05/23 08:11: POC Glucose 83 11/05/23 11:38: POC Glucose 88 11/05/23 13:45: Sodium 133 L, Potassium 4.1, Chloride 100, Carbon Dioxide 20.0 L , Anion Gap 13, BUN 76 H, Creatinine 8.41 H*, Estim Creat Clear Calc 10.11, Est GFR (MDRD) Af Amer 8 L, Est GFR (MDRD) Non-Af 7 L, BUN/Creatinine Ratio 9.0 L, Glucose 106, Calcium 7.9 L 11/05/23 16:53: POC Glucose 103 11/05/23 23:17: POC Glucose 161 H 11/06/23 04:40: WBC 6.7, RBC 3.06 L, Hgb 9.5 L, Hct 28.5 L, MCV 93.1, MCH 31.0, MCHC 33.3, RDW Std Deviation 51.2 H, RDW Coeff of Silvia 15.4 H, Plt Count 138 L, MPV 12.0, Neut % (Auto) Not Reportable, Absolute Neuts (auto) 5.2, Absolute Lymphs (auto) 0.74 L, Total Counted 100, Neutrophils % (Manual) 76 H, Band Robb trophils % 2, Lymphocytes % (Manual) 11 L, Monocytes % (Manual) 9, Eosinophils % (Manual) 2, Sodium Cancelled, Potassium Cancelled, Chloride Cancelled, Carbon Dioxide Cancelled, Anion Gap Cancelled, BUN Cancelled, Creatinine Cancelled, Estim Creat Clear Calc Cancelled, Est GFR (MDRD) Af Amer Cancelled, Est GFR (MDRD) Non-Af Cancelled, BUN/Creatinine Ratio Cancelled, Glucose Cancelled, Calcium Cancelled, Total Bilirubin Cancelled, AST Cancelled, ALT Cancelled, Alkaline Phosphatase Cancelled, Total Protein Cancelled, Albumin Cancelled, Globulin Cancelled, Albumin/Globulin Ratio Cancelled 11/06/23 05:19: POC Glucose 194 H Micro: Microbiology 10/30/23 01:20 Blood Culture (Wb) - Venous Blood Culture - Final No growth in 5 days. 10/30/23 01:45 Blood Culture (Wb) - Right Wrist Blood Culture - Final No growth in 5 days. 10/30/23 22:40 Sputum, Induced/Lukens Gram Stain - Final 10/30/23 22:40 Sputum, Induced/Lukens Respiratory Culture - Final Yeast, not Alana albicans 11/01/23 20:30 Stool Stool Occult Blood (EMILY) - Final Occult Blood Positive 10/30/23 01:40 Urine, Clean Catch Urine Culture - Final Culture exhibits no growth. 10/30/23 03:00 Mucosa - Nose Respiratory Panel (PCR) - Final Human [place] 10/30/23 01:40 Urine Catheter - Catheter Legionella Antigen - Final 10/30/23 01:40 Urine Catheter - Bland Streptococcus pneumoniae Antigen (M - Final 10/30/23 01:40 Mucosa - Nose SARS-CoV-2, Influenza & RSV (PCR) - Final ABG Data ABG results: ABG 11/06/23 04:48 Specimen Type ART Sample Site L Radial pH 7.43 Bicarbonate Actual 20.4 L Total CO2 21 Base Excess -4 L O2 Saturation 98 O2 % 30.0 ABG pCO2 31.0 L ABG pO2 95 Richi Test Positive Respiration Rate 14 O2 Delivery Device Adult Vent Vent Mode AC Tidal Volume 500.0 POC PEEP 5 Rhythm Strip Rhythm Strip: Sinus Rhythm Rate: 78 Physical Exam Narrative Constitutional Narrative: Patient is currently sedated and on the ventilator HEENT normocephalic, head/scalp atraumatic and moist oral mucous membranes Eyes conjunctivae normal Neck no JVD and thyroid normal General: trachea midline Resp normal respiratory effort, no retractions, no use of accessory muscles and clear to auscultation bilaterally Auscultation: Negative for rales, rhonchi or wheezes Cardio regular rate, regular rhythm, S1 normal heart sound, S2 normal heart sound, no murmurs, no rub and no gallops GI normal to inspection, nondistended, normoactive bowel sounds, soft to palpation and non-distended Extremity no clubbing, cyanosis or edema Skin no rashes or lesions noted General Skin Exam: no breakdown Neuro Neuro Narrative: Patient is sedated and on the ventilator Psych Psych Narrative: Patient is sedated and on the ventilator Assessment & Plan Assessment/Plan (1) Acute respiratory failure: QUALIFIERS: Respiratory failure complication: hypoxia Qualified Code(s): J96.01 - Acute respiratory failure with hypoxia PLAN: Plan 1. Acute on chronic hypoxic respiratory failure-likely secondary to congestive heart failure and possibly chronic obstructive pulmonary disease-patient remains on the ventilator at this time, pulmonary medicine is participating in his care #2 end-stage renal disease requiring dialysis-nephrology is participating in his care, he remains on dialysis #3 paroxysmal a flutter-patient is in sinus rhythm at this time, due to his gastric ulcer, he will not be anticoagulated #4 acute blood loss anemia secondary to gastric ulcer on a backdrop of chronic anemia secondary to end-stage renal disease, requiring blood transfusion- gastroenterology is participating in his care, he remains on a PPI, hemoglobin remained stable at this time #5 type 2 diabetes-patient's blood sugars will be monitored, sliding scale insulin will be administered as needed #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
[2023-11-06] MEDS: Chlorhexidine 15 ML PO (08:05)
[2023-11-06] MEDS: amLODIPine 10 MG Tablet GT (08:06)
[2023-11-06] MEDS: Metoprolol Tartrate 25 MG Tablet GT (08:06)
[2023-11-06] MEDS: Pantoprazole Sodium 40 MG in 0.9% Normal Saline (100mL MB+) 100 ML 330 MG IV (08:06)
[2023-11-06] MEDS: Divalproex Sodium 125 MG SPRINKLE 1000 MG NG (08:06)
[2023-11-06] MEDS: BRIMONIDINE 0.2% 5ML BOTTLE 1 DRP OPHTHALMIC ×2 (08:07→22:19)
[2023-11-06] MEDS: Nystatin Powder 15gm Bottle 1 APPLIC TOPICAL ×2 (08:07→22:18)
[2023-11-06] MEDS: Latanoprost 0.005% 1 Bottle 1 DRP RIGHT EYE ×2 (08:08→22:19)
[2023-11-06 08:21] LABS: ALB/GLOB Ratio 0.4 RATIO (0.9-2.4); AST(SGOT) 25 U/L (15-37); Alanine Aminotransfer ALT/SGPT 21 U/L (16-61); Albumin, Serum 1.8 g/dL (3.2-5.0); Alkaline Phosphatase 112 U/L (45-117); Anion Gap 11 (5-15); BUN 61 mg/dL (7-18); BUN/Creat Ratio 8.9 RATIO (10-20); Calcium,Total 7.9 mg/dL (8.5-10.1); Chloride 100 mmol/L (98-107); Creatinine, Serum 6.87 mg/dL (0.70-1.30); EST Glomerular Filtration Rate 9 mL/min (>60); Est Glom Filt Rate - Afr Amer 11 mL/min (>60); Estimated Creatinine Clearance 12.35 ml/min; Globulin 4.1 g/dL (2.2-4.2); Glucose 218 mg/dL (74-106); Potassium 3.8 mmol/L (3.5-5.1); Protein, Total 5.9 g/dL (6.4-8.2); Sodium Level 131 mmol/L (136-145)
--- NOTE | 2023-11-06 10:18 | PCM.PN.REN ---
Subjective Subjective Follow-up on ESRD. Currently in ICU, on ventilator, FiO2 30%, PEEP of 5, hemodynamically stable. Has been dialyzed successfully yesterday via her right forearm fistula. No issues. Objective Data Objective Data Vital Signs: Vital Signs Temp Pulse Resp BP Pulse Ox O2 Del Method O2 Flow Rate 97.2 F L 74 23 H 129/115 H 94 Mechanical Ventilator 11/06/23 10:00 11/06/23 10:00 11/06/23 10:11/06/23 10:11/06/23 10:11/06/23 10:00 10/31/23 08:00 FiO2 11/06/23 10:00 Oxygen Flow Rate (L/min) 30 Oxygen Delivery Method Mechanical Ventilator Weight: 88.9 kg Body Mass Index (BMI) 28.0 Intake & Output: Intake and Output for Last 24 Hours 11/04/23 11/05/23 11/06/23 23:59 23:59 23:59 Intake Total 225.0 / 230.0 914.65 / 1082.02 1310.85 / 1310.85 Output Total 0 / 0 2240 / 2240 35 / 35 Balance 225.0 / 230.0 -1325.35 / -1157.98 1275.85 / 1275.85 Lab / Micro Data Attestation: I reviewed the patient's lab results. 11/06/23 04:40 11/06/23 07:57 Labs: Laboratory Results - last 24 hr 11/05/23 11:38: POC Glucose 88 11/05/23 13:45: Sodium 133 L, Potassium 4.1, Chloride 100, Carbon Dioxide 20.0 L, Anion Gap 13, BUN 76 H, Creatinine 8.41 H*, Estim Creat Clear Calc 10.11, Est GFR (MDRD) Af Amer 8 L, Est GFR (MDRD) Non-Af 7 L, BUN/Creatinine Ratio 9.0 L, Glucose 106, Calcium 7.9 L 11/05/23 16:53: POC Glucose 103 11/05/23 23:17: POC Glucose 161 H 11/06/23 04:40: WBC 6.7, RBC 3.06 L, Hgb 9.5 L, Hct 28.5 L, MCV 93.1, MCH 31.0, MCHC 33.3, RDW Std Deviation 51.2 H, RDW Coeff of Silvia 15.4 H, Plt Count 138 L, MPV 12.0, Neut % (Auto) Not Reportable, Absolute Neuts (auto) 5.2, Absolute Lymphs (auto) 0.74 L, Total Counted 100, Neutrophils % (Manual) 76 H, Band Neutrophils % 2, Lymphocytes % (Manual) 11 L, Monocytes % (Manual) 9, Eosinophils % (Manual) 2, Sodium Cancelled, Potassium Cancelled, Chloride Cancelled, Carbon Dioxide Cancelled, Anion Gap Cancelled, BUN Cancelled, Creatinine Cancelled, Estim Creat Clear Calc Cancelled, Est GFR (MDRD) Af Amer Cancelled, Est GFR (MDRD) Non-Af Cancelled, BUN/Creatinine Ratio Cancelled, Glucose Cancelled, Calcium Cancelled, Total Bilirubin Cancelled, AST Cancelled, ALT Cancelled, Alkaline Phosphatase Cancelled, Total Protein Cancelled, Albumin Cancelled, Globulin Cancelled, Albumin/Globulin Ratio Cancelled 11/06/23 05:19: POC Glucose 194 H 11/06/23 07:57: Sodium 131 L, Potassium 3.8, Chloride 100, Carbon Dioxide 20.0 L, Anion Gap 11, BUN 61 H, Creatinine 6.87 H, Estim Creat Clear Calc 12.35, Est GFR (MDRD) Af Amer 11 L, Est GFR (MDRD) Non-Af 9 L, BUN/Creatinine Ratio 8.9 L, Glucose 218 H, Calcium 7.9 L, Total Bilirubin 0.40, AST 25, ALT 21, Alkaline Phosphatase 112, Total Protein 5.9 L, Albumin 1.8 L, Globulin 4.1, Albumin/Globulin Ratio 0.4 L Micro: Microbiology 10/30/23 01:20 Blood Culture (Wb) - Venous Blood Culture - Final No growth in 5 days. 10/30/23 01:45 Blood Culture (Wb) - Right Wrist Blood Culture - Final No growth in 5 days. 10/30/23 22:40 Sputum, Induced/Lukens Gram Stain - Final 10/30/23 22:40 Sputum, Induced/Lukens Respiratory Culture - Final Yeast, not Alana albicans 11/01/23 20:30 Stool Stool Occult Blood (EMILY) - Final Occult Blood Positive 10/30/23 01:40 Urine, Clean Catch Urine Culture - Final Culture exhibits no growth. 10/30/23 03:00 Mucosa - Nose Respiratory Panel (PCR) - Final Human [place] 10/30/23 01:40 Urine Catheter - Catheter Legionella Antigen - Final 10/30/23 01:40 Urine Catheter - Bland Streptococcus pneumoniae Antigen (M - Final 10/30/23 01:40 Mucosa - Nose SARS-CoV-2, Influenza & RSV (PCR) - Final ABG Data ABG results: ABG 11/06/23 04:48 Specimen Type ART Sample Site L Radial pH 7.43 Bicarbonate Actual 20.4 L Total CO2 21 Base Excess -4 L O2 Saturation 98 O2 % 30.0 ABG pCO2 31.0 L ABG pO2 95 Richi Test Positive Respiration Rate 14 O2 Delivery Device Adult Vent Vent Mode AC Tidal Volume 500.0 POC PEEP 5 Attestation: I personally reviewed and interpreted this ABG as follows: Rhythm Strip Rhythm Strip: Sinus Rhythm Rate: 78 Physical Exam Const average body habitus General Appearance: patient mechanically ventilated HEENT normocephalic Head and Scalp: atraumatic External Ear: external ears normal Neck no lymphadenopathy Resp Auscultation: rhonchi throughout Cardio regular rate GI Auscultation: normoactive bowel sounds Palpation: soft external exam normal Extremity Extremity Narrative: Right forearm fistula with a good bruit no thrill General Extremity: AV fistula Skin no rashes or lesions noted Neuro Sensorium / Orientation: sedated on vent Assessment & Plan Assessment/Plan (1) End stage renal disease: PLAN: Has been successfully dialyzed yesterday via AV fistula with 1.3 L of fluid removal. Electrolytes are fine, no acidosis today. Will tentatively schedule next dialysis session for Tuesday
--- NOTE | 2023-11-06 11:56 | PN.CC_ITS ---
Objective Data Objective Data Vital Signs: Vital Signs Last response Temperature 36.3 C L 11/06/23 11:00 Temperature Source Temporal 11/06/23 11:00 Pulse Rate 77 11/06/23 11:00 Pulse Strength Normal (2+) 11/03/23 21:43 Respiratory Rate 22 H 11/06/23 11:00 Respiratory Effort Mechanically Ventilated 11/06/23 08:00 Respiratory Depth Normal 11/06/23 08:00 Respiratory Pattern Normal 11/06/23 09:05 Blood Pressure 144/65 H 11/06/23 11:00 Blood Pressure Mean 91 11/06/23 11:00 Blood Pressure Source Monitor 11/06/23 10:00 Blood Pressure Position Semi-Fowlers 11/06/23 10:00 Blood Pressure Location Left Arm 11/06/23 10:00 Pulse Ox 94 11/06/23 11:00 Oxygen Delivery Method Mechanical Ventilator 11/06/23 11:00 Oxygen Flow Rate (L/min) 30 10/31/23 08:00 Fraction of Inspired Oxygen (FIO2) 30 11/06/23 11:00 I&O: I&O Last 24 Hours 11/05/23 11/05/23 11/06/23 11:59 23:59 11:59 Intake Total 222.50 / 1082.02 692.15 / 1082.02 1310.85 / 1310.85 Output Total 190 / 2240 2050 / 2240 35 / 35 Balance 32.50 / -1157.98 -1357.85 / -1157.98 1275.85 / 1275.85 I&O: Total Stay 10/30/23 00:58 thru 11/06/23 11:00 Intake Total 9975.85 Output Total 8884 Balance 1091.85 Current Meds Ordered / Administered: Current meds ordered / Administered Generic Name Dose Route Start Last Admin Trade Name Freq PRN Reason Stop Dose Admin Acetaminophen 650 mg 10/31/23 01:16 11/01/23 14:26 Acetaminophen 650 Mg/20 Ml Udc GT 650 mg Q4H PRN PRN Administration Fever, pain 1-10/10 Al Hydroxide/Mg Hydroxide 30 ml 10/31/23 01:19 Mag Hydrox/Al Hydrox/Simeth 30 Ml Udc GT Q6H PRN PRN Gastric Burning Albuterol Sulfate 2.5 mg 10/30/23 04:19 11/05/23 19:13 Albuterol 2.5 Mg/3 Ml Vial.Neb. INHALATION 2.5 mg Q2H PRN PRN Administration Dyspnea, wheezing Amlodipine Besylate 10 mg 10/31/23 10:00 11/06/23 08:06 Amlodipine 10 Mg Tablet GT 10 mg DAILY FREDERIC Administration Protocol Atorvastatin Calcium 20 mg 10/31/23 22:00 11/05/23 20:46 Atorvastatin Calcium 20 Mg Tablet GT 20 mg QHS FREDERIC Administration Brimonidine Tartrate 1 drp 10/30/23 10:00 11/06/23 08:07 Brimonidine 0.2% 5ml Bottle OPHTHALMIC 1 drp BID FREDERIC Administration Budesonide 0.5 mg 10/30/23 04:19 11/06/23 07:04 Budesonide Respules 0.5 Mg/2 Ml Ampul.Neb. INHALATION 0.5 mg BID.RT FREDERIC Administration Chlorhexidine Gluconate 15 ml 10/30/23 22:10 11/06/23 08:05 Chlorhexidine 15 Ml PO 15 ml BID FREDERIC Administration Chlorhexidine Gluconate 1 each 10/31/23 10:00 11/06/23 08:07 Chlorhexidine Gluc 2% Cloth 1 Each [place] TOPICAL Not Given DAILY FREDERIC Dextrose 0 gm 10/30/23 04:19 11/05/23 06:27 Dextrose 50%-Water 25 Gm/50 Ml Disp.Syrin IV 12.5 gm X1 PRN Administration HYPOGLYCEMIA Protocol Divalproex Sodium 1,000 mg 10/31/23 10:00 11/06/23 08:06 Divalproex Sodium 125 Mg Sprinkle NG 1,000 mg BID FREDERIC Administration Gabapentin 100 mg 10/31/23 06:00 11/06/23 05:20 Gabapentin 100 Mg Capsule GT 100 mg TID FREDERIC Administration Glucagon 1 mg 10/30/23 04:19 Glucagon 1 Mg/Ml Syringe IM X1 PRN HYPOGLYCEMIA Guaifenesin 20 ml 10/31/23 01:19 Guaifenesin 10 Ml Udc (200mg/10ml) GT Q4H PRN PRN COUGH Hydralazine HCl 10 mg 10/30/23 04:19 11/05/23 17:03 Hydralazine 20 Mg/Ml Vial IV 10 mg Q4H PRN PRN Administration SBP > 160 Protocol Sodium Chloride 250 mls @ 15 mls/hr 10/30/23 04:44 IV .[id number] PRN Additional IVPB Infusion Sodium Chloride 250 mls @ 15 mls/hr 10/30/23 04:44 IV .[id number] PRN Saline Flush Propofol 1,000 mg in 100 mls @ 5.389 mls/hr 10/30/23 22:10 11/06/23 09:08 Diprivan CONT INF Not Given .Q12H FREDERIC Protocol 10 MCG/KG/MIN Fentanyl 100 mls @ 2.5 mls/hr 10/30/23 22:10 11/06/23 11:00 CONT INF 0 mcg/hr UD FREDERIC 0 mls/hr Titration Protocol 25 MCG/HR Pantoprazole Sodium 40 mg/ 110 mls @ 330 mls/hr 10/30/23 22:10 11/06/23 08:32 Sodium Chloride IV Infused Q24 FREDERIC Infusion Enteral Nutritional Formula 1,000 mls @ 50 mls/hr 10/31/23 10:15 11/06/23 08:02 Nepro Carb Steady GT 0 mls/hr .Q20H FREDERIC Infusion Dexmedetomidine HCl 400 mcg/ 100 mls @ 11.226 mls/hr 11/03/23 07:00 11/06/23 08:00 Sodium Chloride CONT INF Infused .Q8H55M FREDERIC Titration Protocol 0.5 MCG/KG/HR Insulin Human Lispro 0 unit 11/01/23 18:00 11/06/23 11:55 Insulin Lispro 100 Unit/Ml Insuln.Pen SC Not Given Q6 FREDERIC Protocol Latanoprost 1 drp 10/30/23 10:00 11/06/23 08:08 Latanoprost 0.005% 1 Bottle RIGHT EYE 1 drp BID FREDERIC Administration Melatonin 3 mg 10/31/23 01:19 Melatonin 3 Mg Tablet GT QHS PRN PRN INSOMNIA Metoprolol Tartrate 25 mg 10/31/23 10:00 11/06/23 08:06 Metoprolol Tartrate 25 Mg Tablet GT 25 mg DAILY FREDERIC Administration Protocol Nystatin 1 applic 11/03/23 22:00 11/06/23 08:07 Nystatin Powder 15gm Bottle TOPICAL 1 applic BID FREDERIC Administration Protocol Ondansetron HCl 4 mg 10/30/23 04:19 Ondansetron 4 Mg/2 Ml Vial IV Q8H PRN PRN NAUSEA/VOMITING Prochlorperazine Edisylate 5 mg 10/30/23 04:19 Prochlorperazine 10 Mg/2 Ml Vial IV Q4H PRN PRN Breakthrough Nausea/Vomiting Senna/Docusate Sodium 2 tablet 10/31/23 01:20 Senna/Docusate Sodium 1 Tablet GT BID PRN PRN Constipation Sodium Chloride 10 - 40 ml 10/30/23 04:44 11/06/23 05:20 0.9% Saline Lock 10 Ml Syringe IV 20 ml UD PRN Administration SALINE FLUSH Sodium Chloride 5 ml 10/30/23 22:10 Sodium Cl For Inhalation 15 Ml Vial.Neb. INHALATION Q5M PRN Suctioning Lab / Micro Data 11/06/23 04:40 11/06/23 07:57 Labs: Laboratory Results - last 24 hr 11/05/23 11:38: POC Glucose 88 11/05/23 13:45: Sodium 133 L, Potassium 4.1, Chloride 100, Carbon Dioxide 20.0 L , Anion Gap 13, BUN 76 H, Creatinine 8.41 H*, Estim Creat Clear Calc 10.11, Est GFR (MDRD) Af Amer 8 L, Est GFR (MDRD) Non-Af 7 L, BUN/Creatinine Ratio 9.0 L, Glucose 106, Calcium 7.9 L 11/05/23 16:53: POC Glucose 103 11/05/23 23:17: POC Glucose 161 H 11/06/23 04:40: WBC 6.7, RBC 3.06 L, Hgb 9.5 L, Hct 28.5 L, MCV 93.1, MCH 31.0, MCHC 33.3, RDW Std Deviation 51.2 H, RDW Coeff of Silvia 15.4 H, Plt Count 138 L, MPV 12.0, Neut % (Auto) Not Reportable, Absolute Neuts (auto) 5.2, Absolute Lymphs (auto) 0.74 L, Total Counted 100, Neutrophils % (Manual) 76 H, Band Neutrophils % 2, Lymphocytes % (Manual) 11 L, Monocytes % (Manual) 9, Eosinophils % (Manual) 2, Sodium Cancelled, Potassium Cancelled, Chloride Cancelled, Carbon Dioxide Cancelled, Anion Gap Cancelled, BUN Cancelled, Creatinine Cancelled, Estim Creat Clear Calc Cancelled, Est GFR (MDRD) Af Amer Cancelled, Est GFR (MDRD) Non-Af Cancelled, BUN/Creatinine Ratio Cancelled, Glucose Cancelled, Calcium Cancelled, Total Bilirubin Cancelled, AST Cancelled, ALT Cancelled, Alkaline Phosphatase Cancelled, Total Protein Cancelled, Albumin Cancelled, Globulin Cancelled, Albumin/Globulin Ratio Cancelled 11/06/23 05:19: POC Glucose 194 H 11/06/23 07:57: Sodium 131 L, Potassium 3.8, Chloride 100, Carbon Dioxide 20.0 L , Anion Gap 11, BUN 61 H, Creatinine 6.87 H, Estim Creat Clear Calc 12.35, Est GFR (MDRD) Af Amer 11 L, Est GFR (MDRD) Non-Af 9 L, BUN/Creatinine Ratio 8.9 L, Glucose 218 H, Calcium 7.9 L, Total Bilirubin 0.40, AST 25, ALT 21, Alkaline Phosphatase 112, Total Protein 5.9 L, Albumin 1.8 L, Globulin 4.1, Albumin/Globulin Ratio 0.4 L ABG Data ABG results: ABG 11/06/23 04:48 Specimen Type ART Sample Site L Radial pH 7.43 Bicarbonate Actual 20.4 L Total CO2 21 Base Excess -4 L O2 Saturation 98 O2 % 30.0 ABG pCO2 31.0 L ABG pO2 95 Richi Test Positive Respiration Rate 14 O2 Delivery Device Adult Vent Vent Mode AC Tidal Volume 500.0 POC PEEP 5 Rhythm Strip Rhythm Strip: Sinus Rhythm Rate: 78 Assessment and Plan . Assessment and plan: Patient seen and examined Chart and data reviewed He is sedated, but will respond and interact appropriately MRI noted HD 11/04 --> 2000 mL UF Doing well w/ SBT today --> plan to extubate EXAM GEN NAD VS as above HEENT ARTURO NECK supple COR RRR CHEST CTA ABD soft EXT minimal edema SKIN w/d JAIDA NF ASSESSMENT 1. Acute respiratory failure requiring MV support 2. Encephalopathy 3. ESRD 4. Poor medical compliance 5. H/O MR and PAH 6. Hypoalbuminemia TREATMENT PLAN -SBT --> extubate -HD w/ UF as scheduled -nutritional support -VTE ppx Critical Care Time: 50 min The entirety of this encounter was done via Telemedicine
[2023-11-06 12:15] LABS: Bedside Glucose 123 mg/dL (74-106)
--- NOTE | 2023-11-06 13:54 | CPS ---
WELL TENDER extubated patient per Dr. Gonsales. Pt. on 4LNC post extubation. Weak cough noted. IS/PEP therapy to be started. Tolerating extubation with no distress at this time. Will continue to monitor. Nursing present during extubation.
[2023-11-06] MEDS: Albuterol 2.5 MG/3 ML VIAL.NEB. INHALATION ×2 (16:22→19:27)
[2023-11-06] MEDS: Racepinephrine HCl 0.5 ML VIAL.NEB. INHALATION (17:03)
[2023-11-06] MEDS: MethylPREDNISolone 125 MG/2 ML Vial IV (17:14)
[2023-11-06 17:36] LABS: Bedside Glucose 123 mg/dL (74-106)
[2023-11-06] MEDS: WATER IV (22:16)
[2023-11-06] MEDS: VALPROATE SODIUM IV (22:16)
[2023-11-06] MEDS: DEXTROSE 5% IV (22:16)
[2023-11-07] VITALS (19 sets, daily range): BP systolic 151–176; BP diastolic 62–90; PULSE 68–89; RESP 14–23; TEMP 36.5–36.6; O2SAT 90–100; BMI 27.6
[2023-11-07] MEDS: Insulin Lispro 100 UNIT/ML INSULN.PEN SC ×4 (00:34→11:30)
[2023-11-07 00:58] LABS: Bedside Glucose 185 mg/dL (74-106)
[2023-11-07 04:49] LABS: Hematocrit 32.9 % (40-54); Hemoglobin 10.4 g/dL (13.0-16.5); Mean Corp Hgb Conc 31.6 g/dL (32-36); Mean Corpuscular Hgb 30.5 pg (27.0-32.0); Mean Corpuscular Volume 96.5 fL (80-94); Mean Platelet Vol. 10.5 fl (6.2-12.0); POSITIVE COUNT YES; POSITIVE DIFFERENTIAL YES; POSITIVE MORPHOLOGY YES; Platelet Count 122 K/mm3 (150-450); RBC Distribution Width CV 15.4 % (11.6-14.6); RBC Distribution Width SD 51.8 fl (35.1-43.9); Red Blood Count 3.41 M/mm3 (4.6-6.2); White Blood Count 7.1 K/mm3 (4.4-11.0)
[2023-11-07] MEDS: CHLORHEXIDINE GLUC 2% CLOTH 1 EACH TOWELETTE TOPICAL (05:29)
[2023-11-07 06:01] LABS: Anion Gap 16 (5-15); BUN 77 mg/dL (7-18); BUN/Creat Ratio 9.7 RATIO (10-20); Calcium,Total 8.7 mg/dL (8.5-10.1); Chloride 98 mmol/L (98-107); Creatinine, Serum 7.93 mg/dL (0.70-1.30); EST Glomerular Filtration Rate 7 mL/min (>60); Est Glom Filt Rate - Afr Amer 9 mL/min (>60); Estimated Creatinine Clearance 9.84 ml/min; Glucose 220 mg/dL (74-106); Potassium 5.1 mmol/L (3.5-5.1); Sodium Level 132 mmol/L (136-145)
[2023-11-07 06:29] LABS: Differential Indicated MANUAL DIFF
[2023-11-07 06:32] LABS: Lymphocyte 5 % (19-41); Metamyelocyte 2 % (0-1); Monocyte 1 % (0-10); Myelocyte 1 % (0-0); Neutrophil-Band 6 % (0-5); Neutrophil-Segmented 85 % (47-70); Total Cells Counted 100 (MANUAL DIFF)
[2023-11-07 06:33] LABS: Polychromasia 2+
[2023-11-07 06:34] LABS: Anisocytosis 2+
[2023-11-07 06:35] LABS: Macrocytosis 2+
[2023-11-07] MEDS: Budesonide Respules 0.5 MG/2 ML AMPUL.NEB. INHALATION ×2 (06:43→19:45)
--- NOTE | 2023-11-07 07:09 | PN.CC_ITS ---
Assessment & Plan Assessment/Plan (1) CHF exacerbation: QUALIFIERS: Heart failure type: diastolic Qualified Code(s): I50.33 - Acute on chronic diastolic (congestive) heart failure (2) End stage renal disease: (3) Acute respiratory failure: QUALIFIERS: Respiratory failure complication: hypoxia Qualified Code(s): J96.01 - Acute respiratory failure with hypoxia PLAN: Plan RECOMMENDATIONS: 1. Supplemental oxygen to maintain saturations at or above 90%. 2. Obtain follow-up ABG this morning. 3. Continue bronchodilator therapy. 4. Attempt to minimize any sedating medications. 5. Mobilize patient as tolerated. 6. Speech therapy evaluation prior to advancing diet. IMPRESSIONS: 1. Acute on chronic hypoxic respiratory failure secondary to CHF/reported COPD The patient appears to have multifactorial etiology for respiratory failure. The patient did have significant metabolic acidosis, likely secondary to poor renal clearance. In addition, the patient may have an element of bacterial infection, having also tested positive for human metapneumovirus. With supportive care, the patient was ultimately able to be extubated. Plan to continue supplemental oxygen to maintain saturations at or above 90% along with bronchodilator therapy. 2. End-stage renal disease on hemodialysis Continue ongoing dialysis support per nephrology recommendations. 3. Paroxysmal atrial flutter The patient appears to be in normal sinus rhythm. Plan to continue to hold systemic anticoagulation due to underlying GI blood loss. 4. History of diabetes mellitus/hypertension/GERD/anxiety/depre ssion/unspecified seizure disorder Complicates care, management, recovery and prognosis. Continue supportive measures as noted above. Recent MRI brain was unremarkable. Continue current antiepileptic regimen. This note was generated with [employer] dictation software. It may contain incorrect words, spelling, and punctuation that were not noted in checking the note before signing. Subjective Subjective The patient was seen and examined at the bedside this morning. Events from the last 24 hours have been reviewed. The patient is currently afebrile, hemodynamically stable and maintaining appropriate oxygen saturations on 4 L/min via nasal cannula. The patient was extubated yesterday. According to report, the patient had some respiratory difficulty following extubation and received racemic epi. The patient appears to have stabilized from a respiratory perspective, but appears quite lethargic this morning. Objective Data Objective Data The patient's most recent lab work, culture data and imaging studies have all been personally reviewed. Respiratory viral panel dated October 29 was positive for human metapneumovirus. Vital Signs: Vital Signs Temp Pulse Resp BP Pulse Ox O2 Del Method O2 Flow Rate 97.8 F 87 19 H 176/78 H 98 Nasal Cannula 4 11/07/23 05:00 11/07/23 07:00 11/07/23 07:00 11/07/23 07:00 11/07/23 07:00 11/07/23 07:00 11/07/23 07:00 FiO2 30 11/07/23 00:00 Oxygen Flow Rate (L/min) 4 Oxygen Delivery Method Nasal Cannula Weight: 192 lb 6.237 oz Body Mass Index (BMI) 27.6 Intake & Output: Intake and Output for Last 24 Hours 11/05/23 11/06/23 11/07/23 23:59 23:59 23:59 Intake Total 914.65 / 1082.02 1720.85 / 1720.85 Output Total 2240 / 2240 100 / 100 50 / 50 Balance -1325.35 / -1157.98 1620.85 / 1620.85 -50 / -50 Lab / Micro Data Attestation: I reviewed the patient's lab results. 11/07/23 04:33 11/07/23 04:33 Labs: Laboratory Results - last 24 hr 11/06/23 07:57: Sodium 131 L, Potassium 3.8, Chloride 100, Carbon Dioxide 20.0 L , Anion Gap 11, BUN 61 H, Creatinine 6.87 H, Estim Creat Clear Calc 12.35, Est GFR (MDRD) Af Amer 11 L, Est GFR (MDRD) Non-Af 9 L, BUN/Creatinine Ratio 8.9 L, Glucose 218 H, Calcium 7.9 L, Total Bilirubin 0.40, AST 25, ALT 21, Alkaline Phosphatase 112, Total Protein 5.9 L, Albumin 1.8 L, Globulin 4.1, Albumin/Globulin Ratio 0.4 L 11/06/23 11:54: POC Glucose 123 H 11/06/23 17:13: POC Glucose 123 H 11/07/23 00:33: POC Glucose 185 H 11/07/23 04:33: WBC 7.1, RBC 3.41 L, Hgb 10.4 L, Hct 32.9 L, MCV 96.5 H, MCH 30.5, MCHC 31.6 L D, RDW Std Deviation 51.8 H, RDW Coeff of Silvia 15.4 H, Plt Count 122 L, MPV 10.5, Neut % (Auto) Not Reportable, Total Counted 100, Neutrophils % (Manual) 85 H, Band Neutrophils % 6 H, Lymphocytes % (Manual) 5 L, Monocytes % (Manual) 1, Metamyelocytes % 2 H, Myelocytes % 1 H, Diff Path Review May foll, Polychromasia 2+, Anisocytosis 2+, Macrocytosis 2+, Sodium 132 L, Potassium 5.1, Chloride 98, Carbon Dioxide 18.0 L, Anion Gap 16 H, BUN 77 H, Creatinine 7.93 H*, Estim Creat Clear Calc 9.84, Est GFR (MDRD) Af Amer 9 L, Est GFR (MDRD) Non-Af 7 L, BUN/Creatinine Ratio 9.7 L, Glucose 220 H, Calcium 8.7 Micro: Microbiology 10/30/23 01:20 Blood Culture (Wb) - Venous Blood Culture - Final No growth in 5 days. 10/30/23 01:45 Blood Culture (Wb) - Right Wrist Blood Culture - Final No growth in 5 days. 10/30/23 22:40 Sputum, Induced/Lukens Gram Stain - Final 10/30/23 22:40 Sputum, Induced/Lukens Respiratory Culture - Final Yeast, not Alana albicans 11/01/23 20:30 Stool Stool Occult Blood (EMILY) - Final Occult Blood Positive 10/30/23 01:40 Urine, Clean Catch Urine Culture - Final Culture exhibits no growth. 10/30/23 03:00 Mucosa - Nose Respiratory Panel (PCR) - Final Human [place] 10/30/23 01:40 Urine Catheter - Catheter Legionella Antigen - Final 10/30/23 01:40 Urine Catheter - Bland Streptococcus pneumoniae Antigen (M - Final 10/30/23 01:40 Mucosa - Nose SARS-CoV-2, Influenza & RSV (PCR) - Final Radiography Diagnostic Testing: Radiology Impression Chest X-Ray 11/06/23 05:36 IMPRESSION: Pulmonary findings appear improved. Electronically Signed: José Luis Padilla MD at 16:54 EDT , Rhythm Strip Rhythm Strip: Sinus Rhythm Rate: 78 Physical Exam Const Constitutional Narrative: Opens eyes to verbal stimulation but then falls quickly back to sleep. General Appearance: lethargic HEENT normocephalic and head/scalp atraumatic Eyes PERRL, EOMs intact bilaterally and conjunctivae normal Neck supple General: trachea midline Chest inspection of chest normal Resp normal respiratory effort Auscultation: diminished lung sounds Cardio regular rate and regular rhythm GI normal to inspection, nondistended, normoactive bowel sounds Extremity no clubbing, cyanosis or edema Skin no rashes or lesions noted Neuro no focal motor deficits Psych Mood & Affect: flat affect Charges/Coding Visit Charges Inpatient E&M: 18910 Subs Hosp L3
[2023-11-07 07:17] LABS: Absolute Neutrophil Count 6.5 X10^3/uL (2.0-7.7)
[2023-11-07 08:12] LABS: Allen Test Positive; Base Excess -8 mmol/L (-2 to +2); Bicarbonate 18.4 mmol/L (22-26); Blood Gas Specimen Type ART; Mode Not entered; O2 Delivery Device Cannula; PO2 103 mmHG (75-100); SITE L Radial; SO2 97 % (95-99); Total Carbon Dioxide 20 mmol/L; pCO2 36.5 mmHg (35-45); pH 7.31 (7.35-7.45)
[2023-11-07] MEDS: Latanoprost 0.005% 1 Bottle 1 DRP RIGHT EYE ×2 (08:39→21:28)
[2023-11-07] MEDS: Nystatin Powder 15gm Bottle 1 APPLIC TOPICAL ×2 (08:40→21:28)
[2023-11-07] MEDS: BRIMONIDINE 0.2% 5ML BOTTLE 1 DRP OPHTHALMIC ×2 (08:40→21:28)
[2023-11-07 09:03] LABS: Bedside Glucose 183 mg/dL (74-106)
[2023-11-07] MEDS: WATER IV ×2 (10:30→21:27)
[2023-11-07] MEDS: DEXTROSE 5% IV ×2 (10:30→21:27)
[2023-11-07] MEDS: VALPROATE SODIUM IV ×2 (10:30→21:27)
--- NOTE | 2023-11-07 11:28 | NURSING ---
report called to HARSHIL Cruz RN at this time
--- NOTE | 2023-11-07 11:33 | PN.RENAL_ITS ---
Subjective Subjective Sitting up in bed. Awake, alert to self. at bedside. No overnight events. Objective Data Objective Data Vital Signs: Vital Signs Temp Pulse Resp BP Pulse Ox O2 Del Method O2 Flow Rate 97.8 F 86 19 H 166/87 H 98 Nasal Cannula 4 11/07/23 08:00 11/07/23 10:00 11/07/23 10:00 11/07/23 10:00 11/07/23 10:00 11/07/23 10:00 11/07/23 10:00 FiO2 30 11/07/23 00:00 Oxygen Flow Rate (L/min) 4 Oxygen Delivery Method Nasal Cannula Weight: 87.267 kg Body Mass Index (BMI) 27.6 Intake & Output: Intake and Output for Last 24 Hours 11/05/23 11/06/23 11/07/23 23:59 23:59 23:59 Intake Total 914.65 / 1082.02 1720.85 / 1720.85 Output Total 2240 / 2240 100 / 100 50 / 50 Balance -1325.35 / -1157.98 1620.85 / 1620.85 -50 / -50 Lab / Micro Data 11/07/23 04:33 11/07/23 04:33 Labs: Laboratory Results - last 24 hr 11/06/23 11:54: POC Glucose 123 H 11/06/23 17:13: POC Glucose 123 H 11/07/23 00:33: POC Glucose 185 H 11/07/23 04:33: WBC 7.1, RBC 3.41 L, Hgb 10.4 L, Hct 32.9 L, MCV 96.5 H, MCH 30.5, MCHC 31.6 L D, RDW Std Deviation 51.8 H, RDW Coeff of Silvia 15.4 H, Plt Count 122 L, MPV 10.5, Neut % (Auto) Not Reportable, Absolute Neuts (auto) 6.5, Absolute Lymphs (auto) 0.40 L, Total Counted 100, Neutrophils % (Manual) 85 H, Band Neutrophils % 6 H, Lymphocytes % (Manual) 5 L, Monocytes % (Manual) 1, Metamyelocytes % 2 H, Myelocytes % 1 H, Diff Path Review May foll, Polychromasia 2+, Anisocytosis 2+, Macrocytosis 2+, Sodium 132 L, Potassium 5.1, Chloride 98, Carbon Dioxide 18.0 L, Anion Gap 16 H, BUN 77 H, Creatinine 7.93 H*, Estim Creat Clear Calc 9.84, Est GFR (MDRD) Af Amer 9 L, Est GFR (MDRD) Non-Af 7 L, BUN/Creatinine Ratio 9.7 L, Glucose 220 H, Calcium 8.7 11/07/23 08:42: POC Glucose 183 H Micro: Microbiology 10/30/23 01:20 Blood Culture (Wb) - Venous Blood Culture - Final No growth in 5 days. 10/30/23 01:45 Blood Culture (Wb) - Right Wrist Blood Culture - Final No growth in 5 days. 10/30/23 22:40 Sputum, Induced/Lukens Gram Stain - Final 10/30/23 22:40 Sputum, Induced/Lukens Respiratory Culture - Final Yeast, not Alana albicans 11/01/23 20:30 Stool Stool Occult Blood (EMILY) - Final Occult Blood Positive 10/30/23 01:40 Urine, Clean Catch Urine Culture - Final Culture exhibits no growth. 10/30/23 03:00 Mucosa - Nose Respiratory Panel (PCR) - Final Human [place] 10/30/23 01:40 Urine Catheter - Catheter Legionella Antigen - Final 10/30/23 01:40 Urine Catheter - Bland Streptococcus pneumoniae Antigen (M - Final 10/30/23 01:40 Mucosa - Nose SARS-CoV-2, Influenza & RSV (PCR) - Final ABG Data ABG results: ABG 11/07/23 08:09 Specimen Type ART Sample Site L Radial pH 7.31 L Bicarbonate Actual 18.4 L Total CO2 20 Base Excess -8 L O2 Saturation 97 O2 % 4.0 ABG pCO2 36.5 ABG pO2 103 H Richi Test Positive O2 Delivery Device Cannula Vent Mode Not entered Radiography Diagnostic Testing: Radiology Impression Chest X-Ray 11/06/23 05:36 IMPRESSION: Pulmonary findings appear improved. Electronically Signed: José Luis Padilla MD at 16:54 EDT , Rhythm Strip Rhythm Strip: Sinus Rhythm Rate: 78 Physical Exam Narrative Awake, alert to self no obvious distress s1s2 no murmurs abdomen soft no edema AV fistula right forearm positive thrill and bruit Tunneled HD catheter dressing clean, dry and intact Assessment & Plan Assessment/Plan (1) End stage renal disease: PLAN: - ESRD; outpatient hemodialysis schedule at [facility] Tuesday schedule. No acute indication for [employer] today, will plan for dialysis tomorrow on 2K bath and attempt fluid removal as patient/blood pressure tolerates -Anemia of chronic disease; will monitor hemoglobin trends. Patient receives KRUPA and iron. Patient had EGD, findings of oozing gastric ulcers, treated with heater probe. Hgb 10.4 -Acute on chronic respiratory failure; multifactorial from volume overload, human metapneumovirus infection, possible bacterial infection. Patient was on ventilator, extubated 11/05. -A-flutter -Patient moving out of ICU today.
[2023-11-07 11:47] LABS: Bedside Glucose 205 mg/dL (74-106)
--- NOTE | 2023-11-07 12:36 | PN.HOSP_ITS ---
Reason for Visit Reason for Visit: Diagnoses Acute on chronic diastolic (congestive) heart failure (10/30/23) Heart failure, unspecified (10/30/23) Pneumonia, unspecified organism (10/30/23) Acute respiratory failure with hypoxia (10/30/23) End stage renal disease (10/30/23) Subjective Subjective Patient extubated yesterday afternoon to nasal cannula. Remained stable on nasal cannula overnight, no other overnight events. Patient seen at bedside this morning. Breathing comfortably on 4 L nasal cannula with good oxygen saturations. Patient was sitting up in bed but very fatigued appearing. Did make appropriate eye contact with questions but answered with only short, soft responses. Denied any acute pain or discomfort currently. Stated he felt both hungry and thirsty. No other acute concerns this time. Objective Data Objective Data Vital Signs: Vital Signs Temp Pulse Resp BP Pulse Ox O2 Del Method O2 Flow Rate 97.9 F 86 16 152/63 H 98 Nasal Cannula 3 11/07/23 11:49 11/07/23 11:49 11/07/23 11:49 11/07/23 11:49 11/07/23 11:49 11/07/23 11:49 11/07/23 11:49 FiO2 30 11/07/23 00:00 Oxygen Flow Rate (L/min) 3 Oxygen Delivery Method Nasal Cannula Weight: 87.267 kg Body Mass Index (BMI) 27.6 Intake & Output: Intake and Output for Last 24 Hours 11/05/23 11/06/23 11/07/23 23:59 23:59 23:59 Intake Total 914.65 / 1082.02 1720.85 / 1720.85 110 / 110 Output Total 2240 / 2240 100 / 100 50 / 50 Balance -1325.35 / -1157.98 1620.85 / 1620.85 60 / 60 Lab / Micro Data 11/07/23 04:33 11/07/23 04:33 Labs: Laboratory Results - last 24 hr 11/06/23 17:13: POC Glucose 123 H 11/07/23 00:33: POC Glucose 185 H 11/07/23 04:33: WBC 7.1, RBC 3.41 L, Hgb 10.4 L, Hct 32.9 L, MCV 96.5 H, MCH 30.5, MCHC 31.6 L D, RDW Std Deviation 51.8 H, RDW Coeff of Silvia 15.4 H, Plt Count 122 L, MPV 10.5, Neut % (Auto) Not Reportable, Absolute Neuts (auto) 6.5, Absolute Lymphs (auto) 0.40 L, Total Counted 100, Neutrophils % (Manual) 85 H, Band Neutrophils % 6 H, Lymphocytes % (Manual) 5 L, Monocytes % (Manual) 1, Metamyelocytes % 2 H, Myelocytes % 1 H, Diff Path Review May foll, Polychromasia 2+, Anisocytosis 2+, Macrocytosis 2+, Sodium 132 L, Potassium 5.1, Chloride 98, Carbon Dioxide 18.0 L, Anion Gap 16 H, BUN 77 H, Creatinine 7.93 H*, Estim Creat Clear Calc 9.84, Est GFR (MDRD) Af Amer 9 L, Est GFR (MDRD) Non-Af 7 L, BUN/Creatinine Ratio 9.7 L, Glucose 220 H, Calcium 8.7 11/07/23 05:27: POC Glucose 205 H 11/07/23 08:42: POC Glucose 183 H Micro: Microbiology 10/30/23 01:20 Blood Culture (Wb) - Venous Blood Culture - Final No growth in 5 days. 10/30/23 01:45 Blood Culture (Wb) - Right Wrist Blood Culture - Final No growth in 5 days. 10/30/23 22:40 Sputum, Induced/Lukens Gram Stain - Final 10/30/23 22:40 Sputum, Induced/Lukens Respiratory Culture - Final Yeast, not Alana albicans 11/01/23 20:30 Stool Stool Occult Blood (EMILY) - Final Occult Blood Positive 10/30/23 01:40 Urine, Clean Catch Urine Culture - Final Culture exhibits no growth. 10/30/23 03:00 Mucosa - Nose Respiratory Panel (PCR) - Final Human [place] 10/30/23 01:40 Urine Catheter - Catheter Legionella Antigen - Final 10/30/23 01:40 Urine Catheter - Bland Streptococcus pneumoniae Antigen (M - Final 10/30/23 01:40 Mucosa - Nose SARS-CoV-2, Influenza & RSV (PCR) - Final ABG Data ABG results: ABG 11/07/23 08:09 Specimen Type ART Sample Site L Radial pH 7.31 L Bicarbonate Actual 18.4 L Total CO2 20 Base Excess -8 L O2 Saturation 97 O2 % 4.0 ABG pCO2 36.5 ABG pO2 103 H Richi Test Positive O2 Delivery Device Cannula Vent Mode Not entered Radiography Diagnostic Testing: Radiology Impression Chest X-Ray 11/06/23 05:36 IMPRESSION: Pulmonary findings appear improved. Electronically Signed: José Luis Padilla MD at 16:54 EDT , Rhythm Strip Rhythm Strip: Sinus Rhythm Rate: 78 Physical Exam Const alert and no apparent distress Constitutional Narrative: Middle-age male, appears older than stated age, very fatigued appearing, otherwise sitting up comfortably in bed, answering questions with very short and soft responses, no acute distress. General Appearance: cooperative and comfortable HEENT normocephalic, head/scalp atraumatic, hearing grossly normal bilaterally and nasal mucous membranes and turbinates normal Mouth: dry mucous membranes Eyes PERRL, EOMs intact bilaterally and conjunctivae normal Neck full ROM Chest inspection of chest normal Resp normal respiratory effort and no use of accessory muscles Resp Narrative: Breathing comfortably on 4 L nasal cannula. Mildly diminished breath sounds bilaterally throughout, no wheezing or crackles noted. Cardio regular rate, regular rhythm, no murmurs and peripheral pulses 2+ throughout GI normal to inspection, nondistended, normoactive bowel sounds, soft to palpation, non-tender and non-distended Back/Spine normal ROM Extremity normal to inspection, full ROM and no pedal edema Skin no rashes or lesions noted Neuro moves all extremities and no focal motor deficits Assessment & Plan Assessment/Plan (1) Acute respiratory failure: QUALIFIERS: Respiratory failure complication: hypoxia Qualified Code(s): J96.01 - Acute respiratory failure with hypoxia (2) End stage renal disease: (3) Pneumonia: PLAN: Plan Patient is a 63-year-old male who presented to [facility] ED on 10/30/2023 with worsening dyspnea and hypoxia. 1. Acute on chronic hypoxic respiratory failure, improving ? Suspect multifactorial in setting of significant metabolic acidosis from [facility] ed HD sessions, human metapneumovirus infection and possible superimposed bacterial infection. ? Intubated on 10/29 and remained intubated until 11/05. Was successfully extubated to nasal cannula on 11/05. ? Checker Cashier followed. Currently stable on 4 L nasal cannula at rest, continue to wean oxygen as able. Stable for transfer out of the ICU on 11/06. 2. Human metapneumovirus infection, concern for superimposed bacterial infection ? Positive for human metapneumovirus on admit. Chest x-ray showed scattered bilateral airspace opacities consistent with pneumonia. Negative Gram stain, urine antigens negative, respiratory culture negative, blood cultures with no growth at 48 hours. Procalcitonin 0.42, upper limit of normal. ? Checker Cashier followed. Continue home budesonide and albuterol inhaler as needed. Discontinued IV antibiotics on 10/31. Did not require systemic steroids. 3. ESRD on HD with frequent missed HD sessions; metabolic acidosis, resolved ? Patient on Tuesday schedule, was apparently frequently missing sessions prior to admission and would go when volume overload caused worsening hypoxia for him. ? Nephrology following. Continuing home HD schedule. Receiving KRUPA and iron with dialysis sessions. 4. Acute on chronic anemia secondary to upper GI bleed ? Hemoglobin 9.0 on admit, down trended to 7.9 shortly after with IV fluids. Downtrended again to hemoglobin 6.8 on 10/30. No overt signs of bleeding noted. Baseline hemoglobin appears to be around 9-10. Iron studies show ferritin 1852, consistent with anemia of chronic disease. ? Transfused 1 unit of packed red blood cells on 10/30, repeat hemoglobin 8.7. However, was Hemoccult positive on 11/01. ? GI followed. EGD on 11/03 showed oozing gastric ulcers with pigmented material that were injected, treated with heater probe and clipped. ? Hemoglobin has remained stable post EGD. Continue to monitor CBC daily. Continue to hold home Eliquis, will discuss with GI on timing of restarting. Continue p.o. PPI twice daily. 5. Paroxysmal A-fib/flutter with RVR ? Patient noted to flip into A-fib with RVR on the evening of 10/30 after first HD session. Had heart rates in the 140s to 150s fairly consistently. Was given 2 doses of digoxin with only mild improvement. Flipped back into normal sinus rhythm with heart rate in the 80s on morning of 10/31 during dialysis session. ? Patient was noted to have mildly low BPs after first HD session, suspect that he may has had slightly too much volume removed leading to hypotension and worsening A-fib with RVR. BP much improved on 10/31 as well. ? Continue home Lopressor. Holding home Eliquis as noted above. Continue cardiac monitoring. 6. Dysphagia ? Speech therapy following. Recommendation on 11/06 was for n.p.o., planning for FEES study on 11/07 for further evaluation. Chronic medical conditions: ? Type 2 diabetes mellitus: Reported history of diabetes, not currently on home medication. A1c 5.0% on admit. Continue sliding-scale insulin with meals as needed. ? History of CVA with left sided hemiparesis: Stable. ? Hypertension: Continue home Lopressor, amlodipine. ? Hyperlipidemia: Continue home statin. ? Anxiety/depression/RLS: Continue home gabapentin. ? Paroxysmal A-fib/flutter on Eliquis: Holding home Eliquis as noted above. Continue home Lopressor. ? Seizure disorder: Continue home Depakote. DVT prophylaxis: SCDs CODE STATUS: Full code, verified Expected disposition: TBD Total clinical time spent by myself addressing the patient's medical issues, reviewing all the data, and collaborating with patient's care team: 35 minutes. Charges/Coding Visit Charges Inpatient E&M: 42999 Subs Hosp L2
[2023-11-07 13:25] LABS: Pathologist Review Reviewed
[2023-11-07] MEDS: Gabapentin 100 MG Capsule PO ×2 (13:27→21:29)
[2023-11-07] MEDS: amLODIPine 10 MG Tablet PO (13:27)
[2023-11-07] MEDS: Metoprolol Tartrate 25 MG Tablet PO (13:28)
[2023-11-07 13:32] LABS: Pathologist Review Reviewed
[2023-11-07 13:35] LABS: White Blood Count 6.2 K/mm3 (4.4-11.0)
[2023-11-07] MEDS: hydrALAZINE 20 MG/ML Vial 10 MG IV (18:30)
[2023-11-07] MEDS: 0.9% Saline Lock 10 ML Syringe IV (18:30)
[2023-11-07 18:50] LABS: Bedside Glucose 169 mg/dL (74-106)
[2023-11-07 19:05] LABS: Bedside Glucose 176 mg/dL (74-106)
[2023-11-07] MEDS: Pantoprazole Sodium 40 MG Tablet PO (21:30)
[2023-11-07] MEDS: Atorvastatin Calcium 20 MG Tablet PO (21:30)
[2023-11-07] MEDS: Acetaminophen 325 MG Tablet 650 MG PO (21:30)
[2023-11-07] MEDS: 0.9% Normal Saline (250mL Bag) 250 ML 15 ML IV (21:34)
[2023-11-07 23:04] LABS: Bedside Glucose 162 mg/dL (74-106)
[2023-11-08] VITALS (19 sets, daily range): BP systolic 49–228; BP diastolic 60–76; PULSE 73–81; RESP 13–18; TEMP 36.2–36.8; O2SAT 94–97; BMI 28.0; BMI 27.3
[2023-11-08] MEDS: hydrALAZINE 20 MG/ML Vial 10 MG IV (02:56)
[2023-11-08] MEDS: Gabapentin 100 MG Capsule PO ×3 (05:53→20:47)
[2023-11-08 06:49] LABS: Bedside Glucose 132 mg/dL (74-106)
[2023-11-08 08:53] LABS: Hematocrit 30.6 % (40-54); Mean Corp Hgb Conc 32.7 g/dL (32-36); Mean Corpuscular Hgb 31.1 pg (27.0-32.0); Mean Platelet Vol. 9.9 fl (6.2-12.0); Platelet Count 152 K/mm3 (150-450); RBC Distribution Width CV 15.6 % (11.6-14.6); RBC Distribution Width SD 51.6 fl (35.1-43.9); Red Blood Count 3.22 M/mm3 (4.6-6.2); White Blood Count 7.2 K/mm3 (4.4-11.0)
[2023-11-08 08:55] LABS: Anion Gap 12 (5-15); BUN 97 mg/dL (7-18); BUN/Creat Ratio 10.6 RATIO (10-20); Calcium,Total 8.2 mg/dL (8.5-10.1); Chloride 100 mmol/L (98-107); Creatinine, Serum 9.13 mg/dL (0.70-1.30); EST Glomerular Filtration Rate 6 mL/min (>60); Est Glom Filt Rate - Afr Amer 8 mL/min (>60); Estimated Creatinine Clearance 9.28 ml/min; Glucose 137 mg/dL (74-106); Potassium 5.1 mmol/L (3.5-5.1); Sodium Level 130 mmol/L (136-145)
--- NOTE | 2023-11-08 09:21 | CASEMGMT ---
Discharge Planning A list of SNF providers including quality and resource use data and consistent with the patient's preferred geographic region, medical needs, and insurance network was created in [employer].? This list was provided to the SW. Dione Londono Discharge Planning Asst.
[2023-11-08] MEDS: BRIMONIDINE 0.2% 5ML BOTTLE 1 DRP OPHTHALMIC ×2 (09:42→20:46)
[2023-11-08] MEDS: Latanoprost 0.005% 1 Bottle 1 DRP RIGHT EYE ×2 (09:42→20:46)
[2023-11-08] MEDS: Nystatin Powder 15gm Bottle 1 APPLIC TOPICAL ×2 (09:44→20:46)
--- NOTE | 2023-11-08 10:58 | PN.RENAL_ITS ---
Subjective Subjective Follow-up on ESRD. Patient is n.p.o., feels comfortable and states that he is hungry. Objective Data Objective Data Vital Signs: Vital Signs Temp Pulse Resp BP Pulse Ox O2 Del Method O2 Flow Rate 97.7 F L 77 18 152/69 H 95 Room Air 2 11/08/23 09:39 11/08/23 09:39 11/08/23 09:39 11/08/23 09:39 11/08/23 09:39 11/08/23 09:39 11/08/23 03:35 FiO2 30 11/07/23 00:00 Oxygen Flow Rate (L/min) 2 Oxygen Delivery Method Room Air Weight: 88.5 kg Body Mass Index (BMI) 28.0 Intake & Output: Intake and Output for Last 24 Hours 11/06/23 11/07/23 11/08/23 23:59 23:59 23:59 Intake Total 1720.85 / 1720.85 220 / 220 Output Total 100 / 100 100 / 220 195 / 195 Balance 1620.85 / 1620.85 120 / 0 -195 / -195 Lab / Micro Data Attestation: I reviewed the patient's lab results. 11/08/23 08:45 11/08/23 07:05 Labs: Laboratory Results - last 24 hr 11/04/23 17:05: WBC 6.2 11/05/23 04:50: Diff Path Review Reviewed 11/07/23 04:33: Diff Path Review Reviewed 11/07/23 05:27: POC Glucose 205 H 11/07/23 11:27: POC Glucose 176 H 11/07/23 18:15: POC Glucose 169 H 11/07/23 21:39: POC Glucose 162 H 11/08/23 05:51: POC Glucose 132 H 11/08/23 07:05: WBC Cancelled, Corrected WBC Cancelled, RBC Cancelled, Hgb Cancelled, Hct Cancelled, MCV Cancelled, MCH Cancelled, MCHC Cancelled, RDW Std Deviation Cancelled, RDW Coeff of Silvia Cancelled, Plt Count Cancelled, MPV Cancelled, Diff Path Review Cancelled, Sodium 130 L, Potassium 5.1, Chloride 100, Carbon Dioxide 18.0 L, Anion Gap 12, BUN 97 H, Creatinine 9.13 H*, Estim Creat Clear Calc 9.28, Est GFR (MDRD) Af Amer 8 L, Est GFR (MDRD) Non-Af 6 L, BUN/Creatinine Ratio 10.6, Glucose 137 H, Calcium 8.2 L 11/08/23 08:45: WBC 7.2, RBC 3.22 L, Hgb 10.0 L, Hct 30.6 L, MCV 95.0 H, MCH 31.1, MCHC 32.7, RDW Std Deviation 51.6 H, RDW Coeff of Silvia 15.6 H, Plt Count 152, MPV 9.9 Micro: Microbiology 10/30/23 01:20 Blood Culture (Wb) - Venous Blood Culture - Final No growth in 5 days. 10/30/23 01:45 Blood Culture (Wb) - Right Wrist Blood Culture - Final No growth in 5 days. 10/30/23 22:40 Sputum, Induced/Lukens Gram Stain - Final 10/30/23 22:40 Sputum, Induced/Lukens Respiratory Culture - Final Yeast, not Alana albicans 11/01/23 20:30 Stool Stool Occult Blood (EMILY) - Final Occult Blood Positive 10/30/23 01:40 Urine, Clean Catch Urine Culture - Final Culture exhibits no growth. 10/30/23 03:00 Mucosa - Nose Respiratory Panel (PCR) - Final Human [place] 10/30/23 01:40 Urine Catheter - Catheter Legionella Antigen - Final 10/30/23 01:40 Urine Catheter - Bland Streptococcus pneumoniae Antigen (M - Final 10/30/23 01:40 Mucosa - Nose SARS-CoV-2, Influenza & RSV (PCR) - Final Rhythm Strip Rhythm Strip: Sinus Rhythm Rate: 78 Physical Exam Const alert, no apparent distress and average body habitus Orientation / Consciousness: oriented to person and oriented to place HEENT normocephalic Head and Scalp: atraumatic Resp no use of accessory muscles Cardio regular rate GI Palpation: soft Skin no rashes or lesions noted Neuro Sensorium / Orientation: awake and alert Psych cooperative Assessment & Plan Assessment/Plan (1) End stage renal disease: PLAN: He appears to be euvolemic Potassium is slightly elevated Plan Will plan to dialyze today, using his outpatient orders
[2023-11-08] MEDS: PureFlow B 2K Dialysis Soln 1 BAG 6 BAG PF (11:51)
[2023-11-08] MEDS: 0.9% Normal Saline 1,000 ML IV.SOLN. 1000 ML OPERA.SITE (11:51)
[2023-11-08] MEDS: 0.9% Saline Lock 10 ML Syringe IV ×2 (11:51→14:56)
--- NOTE | 2023-11-08 11:58 | CASEMGMT ---
Social Work SW spoke w/pt who is getting dialysis at present, pt's and his Aunt Thais in regard to discharge plan. SW introduced the idea of pt going somewhere for rehab, to a detention facility, at discharge. Pt states, I have my . He has not in the past needed to go anywhere for rehab. SW provided to pt's a list of detention facilities in network w/pt's insurance via [employer], in pt's preferred geographic area and complete w/quality and resource use data. SW explained we will continue to follow to determine what pt may need at discharge. MELVIN Truong
[2023-11-08 11:59] LABS: Bedside Glucose 111 mg/dL (74-106)
--- NOTE | 2023-11-08 12:12 | PCM.PN.HOSP ---
Reason for Visit Reason for Visit: Diagnoses Acute on chronic diastolic (congestive) heart failure (10/30/23) Heart failure, unspecified (10/30/23) Pneumonia, unspecified organism (10/30/23) Acute respiratory failure with hypoxia (10/30/23) End stage renal disease (10/30/23) Subjective Subjective No acute events overnight. Patient seen at bedside this morning. Laying comfortably in bed, in no acute distress. Appears fatigued, similar to yesterday. Answering questions with short appropriate responses. No acute concerns morning. Objective Data Objective Data Vital Signs: Vital Signs Temp Pulse Resp BP Pulse Ox O2 Del Method O2 Flow Rate 97.7 F L 75 15 143/67 H 94 Nasal Cannula 2 11/08/23 09:39 11/08/23 11:57 11/08/23 11:57 11/08/23 11:57 11/08/23 11:35 11/08/23 11:57 11/08/23 11:57 FiO2 30 11/07/23 00:00 Oxygen Flow Rate (L/min) 2 Oxygen Delivery Method Nasal Cannula Weight: 88.5 kg Body Mass Index (BMI) 28.0 Intake & Output: Intake and Output for Last 24 Hours 11/06/23 11/07/23 11/08/23 23:59 23:59 23:59 Intake Total 1720.85 / 1720.85 220 / 220 Output Total 100 / 100 100 / 220 195 / 195 Balance 1620.85 / 1620.85 120 / 0 -195 / -195 Lab / Micro Data 11/08/23 08:45 11/08/23 07:05 Labs: Laboratory Results - last 24 hr 11/04/23 17:05: WBC 6.2 11/05/23 04:50: Diff Path Review Reviewed 11/07/23 04:33: Diff Path Review Reviewed 11/07/23 11:27: POC Glucose 176 H 11/07/23 18:15: POC Glucose 169 H 11/07/23 21:39: POC Glucose 162 H 11/08/23 05:51: POC Glucose 132 H 11/08/23 07:05: WBC Cancelled, Corrected WBC Cancelled, RBC Cancelled, Hgb Cancelled, Hct Cancelled, MCV Cancelled, MCH Cancelled, MCHC Cancelled, RDW Std Deviation Cancelled, RDW Coeff of Silvia Cancelled, Plt Count Cancelled, MPV Cancelled, Diff Path Review Cancelled, Sodium 130 L, Potassium 5.1, Chloride 100, Carbon Dioxide 18.0 L, Anion Gap 12, BUN 97 H, Creatinine 9.13 H*, Estim Creat Clear Calc 9.28, Est GFR (MDRD) Af Amer 8 L, Est GFR (MDRD) Non-Af 6 L, BUN/Creatinine Ratio 10.6, Glucose 137 H, Calcium 8.2 L 11/08/23 08:45: WBC 7.2, RBC 3.22 L, Hgb 10.0 L, Hct 30.6 L, MCV 95.0 H, MCH 31.1, MCHC 32.7, RDW Std Deviation 51.6 H, RDW Coeff of Silvia 15.6 H, Plt Count 152, MPV 9.9 11/08/23 11:40: POC Glucose 111 H Micro: Microbiology 10/30/23 01:20 Blood Culture (Wb) - Venous Blood Culture - Final No growth in 5 days. 10/30/23 01:45 Blood Culture (Wb) - Right Wrist Blood Culture - Final No growth in 5 days. 10/30/23 22:40 Sputum, Induced/Lukens Gram Stain - Final 10/30/23 22:40 Sputum, Induced/Lukens Respiratory Culture - Final Yeast, not Alana albicans 11/01/23 20:30 Stool Stool Occult Blood (EMILY) - Final Occult Blood Positive 10/30/23 01:40 Urine, Clean Catch Urine Culture - Final Culture exhibits no growth. 10/30/23 03:00 Mucosa - Nose Respiratory Panel (PCR) - Final Human [place] 10/30/23 01:40 Urine Catheter - Catheter Legionella Antigen - Final 10/30/23 01:40 Urine Catheter - Bland Streptococcus pneumoniae Antigen (M - Final 10/30/23 01:40 Mucosa - Nose SARS-CoV-2, Influenza & RSV (PCR) - Final Rhythm Strip Rhythm Strip: Sinus Rhythm Rate: 78 Physical Exam Const alert and no apparent distress Constitutional Narrative: Middle-age male, appears older than stated age, moderately fatigued appearing, otherwise sitting up comfortably in bed, answering questions with short appropriate responses, no acute distress. General Appearance: cooperative and comfortable HEENT normocephalic, head/scalp atraumatic, hearing grossly normal bilaterally and nasal mucous membranes and turbinates normal Mouth: dry mucous membranes Eyes PERRL, EOMs intact bilaterally and conjunctivae normal Neck full ROM Chest inspection of chest normal Resp normal respiratory effort and no use of accessory muscles Resp Narrative: Breathing comfortably on 2 L nasal cannula. Mildly diminished breath sounds bilaterally throughout, no wheezing or crackles noted. Cardio regular rate, regular rhythm, no murmurs and peripheral pulses 2+ throughout GI normal to inspection, nondistended, normoactive bowel sounds, soft to palpation, non-tender and non-distended Back/Spine normal ROM Extremity normal to inspection, full ROM and no pedal edema Skin no rashes or lesions noted Neuro moves all extremities and no focal motor deficits Assessment & Plan Assessment/Plan (1) Acute respiratory failure: QUALIFIERS: Respiratory failure complication: hypoxia Qualified Code(s): J96.01 - Acute respiratory failure with hypoxia (2) End stage renal disease: (3) Pneumonia: PLAN: Plan Patient is a 63-year-old male who presented to [facility] ED on 10/30/2023 with worsening dyspnea and hypoxia. 1. Acute on chronic hypoxic respiratory failure, improving Suspect multifactorial in setting of significant metabolic acidosis from missed HD sessions, human metapneumovirus infection and possible superimposed bacterial infection. Intubated on 10/29 and remained intubated until 11/05. Was successfully extubated to nasal cannula on 11/05. Stable for transfer out of the ICU on 11/06. ? Coroner Forensic Technician followed. Currently stable on 2 L nasal cannula at rest, continue to wean oxygen as able. 2. Human metapneumovirus infection, concern for superimposed bacterial infection Positive for human metapneumovirus on admit. Chest x-ray showed scattered bilateral airspace opacities consistent with pneumonia. Negative Gram stain, urine antigens negative, respiratory culture negative, blood cultures with no growth at 48 hours. Procalcitonin 0.42, upper limit of normal. ? Coroner Forensic Technician followed. Continue home budesonide and albuterol inhaler as needed. Discontinued IV antibiotics on 10/31. Did not require systemic steroids. 3. ESRD on HD with frequent missed HD sessions; metabolic acidosis, resolved Patient on Tuesday schedule, was apparently frequently missing sessions prior to admission and would go when volume overload caused worsening hypoxia for him. ? Nephrology following. Continuing home HD schedule. Receiving KRUPA and iron with dialysis sessions. 4. Acute on chronic anemia secondary to upper GI bleed Hemoglobin 9.0 on admit, down trended to 7.9 shortly after with IV fluids. Downtrended again to hemoglobin 6.8 on 10/30. No overt signs of bleeding noted. Baseline hemoglobin appears to be around 9-10. Iron studies show ferritin 1852, consistent with anemia of chronic disease. Transfused 1 unit of packed red blood cells on 10/30, repeat hemoglobin 8.7. However, was Hemoccult positive on 11/01. EGD on 11/03 showed oozing gastric ulcers with pigmented material that were injected, treated with heater probe and clipped. ? GI followed. Hemoglobin has remained stable post EGD. Continue to monitor CBC daily. Continue to hold home Eliquis, will discuss with GI on timing of restarting. Continue p.o. PPI twice daily. 5. Paroxysmal A-fib/flutter with RVR Patient noted to flip into A-fib with RVR on the evening of 10/30 after first HD session. Had heart rates in the 140s to 150s fairly consistently. Was given 2 doses of digoxin with only mild improvement. Flipped back into normal sinus rhythm with heart rate in the 80s on morning of 10/31 during dialysis session. Patient was noted to have mildly low BPs after first HD session, suspect that he may has had slightly too much volume removed leading to hypotension and worsening A-fib with RVR. BP much improved on 10/31 as well. ? Continue home Lopressor. Holding home Eliquis as noted above. Continue cardiac monitoring. 6. Dysphagia ? Speech therapy following. FEES study done on 11/07, patient cleared for renal diet with direct supervision and sips one at a time with alternating bites and sips. Continue to monitor. Speech recommended that patient see ENT in the outpatient setting after discharge for further evaluation. Chronic medical conditions: ? Type 2 diabetes mellitus: Reported history of diabetes, not currently on home medication. A1c 5.0% on admit. Continue sliding-scale insulin with meals as needed. ? History of CVA with left sided hemiparesis: Stable. ? Hypertension: Continue home Lopressor, amlodipine. ? Hyperlipidemia: Continue home statin. ? Anxiety/depression/RLS: Continue home gabapentin. ? Paroxysmal A-fib/flutter on Eliquis: Holding home Eliquis as noted above. Continue home Lopressor. ? Seizure disorder: Continue home Depakote. DVT prophylaxis: SCDs CODE STATUS: Full code, verified Expected disposition: SNF, TBD Total clinical time spent by myself addressing the patient's medical issues, reviewing all the data, and collaborating with patient's care team: 35 minutes. Charges/Coding Visit Charges Inpatient E&M: 27758 Subs Hosp L2
[2023-11-08] MEDS: Heparin 10,000 UNITS/10 ML Vial IV (14:56)
[2023-11-08] MEDS: Metoprolol Tartrate 25 MG Tablet PO (16:00)
[2023-11-08] MEDS: DEXTROSE 5% IV ×2 (16:01→20:57)
[2023-11-08] MEDS: VALPROATE SODIUM IV ×2 (16:01→20:57)
[2023-11-08] MEDS: amLODIPine 10 MG Tablet PO (16:01)
[2023-11-08] MEDS: WATER IV ×2 (16:01→20:57)
--- NOTE | 2023-11-08 16:19 | CASEMGMT ---
Social Work LW/POA both scanned into [employer], is listed as POA, no alternates listed. MELVIN Truong
--- NOTE | 2023-11-08 16:26 | HP.SPFEES ---
FEES Patient Information Date of Evaluation: 11/08/23 Time of Evaluation: 13:45 DIAGNOSIS:: PNA J18.9 Referring Physician: Justin Patel Staff Providing this Care/Treatment:: GULSHAN Direct Billable Minutes: 120 Subjective: Subjective:: PMH: Acute and chronic respiratory failure with hypoxia, CHF, Chronic kidney disease, stage 4 (severe), Epilepsy, ESRD (end stage renal disease) on dialysis, Former smoker, Heartburn, High cholesterol, Hx of atrial fibrillation, HTN, Injury of head and neck, Insulin dependent DM, Hx of migraine headache, Peripheral neuropathy, Polyneuropathy, Right leg weakness, Seizures, Hx of CVA (right MCA), Syncope, TIA, Weakness, Wears partial dentures. Patient presented to the [facility] ED on 10/30/2023 with significant dyspnea, fever, chills, nausea/vomiting, congestion, and productive cough. Records stated symptoms began ~10/29/2023 after last dialysis on Tuesday (10/26/2023). Patient missed his last dialysis session on Tuesday (10/29/2023) prompting an EMS call. Patient was saturating 77% on room air that improved to 95% when transitioned to 4L of oxygen via nasal cannula. Patient's chest x-ray showed scattered bilateral airspace opacities consistent with pneumonia with his most recent chest x-ray interpretation showing pulmonary findings appear improved. Patient's brain MRI showed atrophy and moderate periventricular white matter ischemic change without evidence for acute infarct. Patient was intubated on 10/30/2023 following period of unresponsiveness and extubated 11/06/2023 and oxygenating on 4L of oxygen via nasal cannula. ST was consulted after the patient failed the nursing dysphagia screen. BSE recommended NPO with sips and chips, medications crushed in applesauce. Patient was recommended for FEES to further assess concerns for dysphagia and vocal cord dysfunction. Current Diet: NPO:: Yes Medication Administration:: crushed in puree Comment:: Ok for sips and chips after oral care Respiratory Status: Observation:: 2L via nasal cannula Vocal Quality: Observations:: Hoarse Comments:: Mild Cognition: Observations:: Impaired and Did not impact exam Fiberoptic Endoscope: Size: 3.4 mm Nare:: Right Position During FEES: Position During FEES:: Upright Location: In Bed Anatomy: + Velopharyngeal Port Observations +Nasopharynx Observations +Oropharynx Observations: +Hypopharynx Observation: Comments:: Nasopharynx appears WNL. Oropharynx, larynx, and hypopharynx edematous throughout, most notable in R laryngeal vestibule. Asymmetrical adduction of the arytenoids with L sided paresis. Slightly reduced vocal fold adduction, but appeared symmetrical. Posterior 1/3 of L vocal folds with irregular protuberance, likely intubation granuloma. Unable to fully visualize R vocal fold due to severe edema of R aryepiglottic fold and R arytenoid. Small, white excrescence in the sub-glottis superior to the cricoid ring on the right side. Secretions: Description:: Thin, Clear and White Location:: Oropharynx Penetration-Aspiration Scale Penetration-Aspiration Scale Penetration-Aspiration Scale Score Thin Liquid via single sip: straw: Result: 1= does not enter airway (VASES - <5% residue in the vallecula, <5% residue in the pyriform sinuses bilaterally. Endoscope viewer appeared hazy after this trial. Cannot definitively rule out aspiration.) Thin Liquid via single sip: straw Trial 2: Result: 1= does not enter airway (VASES - <5% residue in the L pyriform sinus.) Thin Liquid via single sip: straw Trial 3: Result: 1= does not enter airway (VASES - <5% residue in the vallecula, <5% residue in the pyriform sinuses bilaterally.) Thin Liquid via single sip: straw Trial 4: Result: 1= does not enter airway (VASES - <5% residue in the pyriform sinuses bilaterally.) Pudding via teaspoon: Result: 1= does not enter airway (VASES - 10% residue in the vallecula, <5% residue in the pyriform sinuses bilaterally.) 1/2 Cookie: Result: 1= does not enter airway (Piece of un-chewed cookie in the vallecula prior to swallow onset. VASES - <5% residue in the vallecula.) Thin Liquid via sequential sips:straw: Result: 1= does not enter airway (VASES - <5% residue in the vallecula, <5% residue in the pyriform sinuses bilaterally. Cough after the swallow somewhat impacted BALL FRINGE MACHINE OPERATOR's view of the glottis immediately after the swallow. Cannot definitively rule out aspiration.) Swallowing: :: Diagnosis: Mild oropharyngeal dysphagia R13.12 Impressions: Timely swallow onset. Decreased mastication with small piece of cookie un-chewed prior to the swallow. Decreased pharyngeal contraction with mild pharyngeal residues of pudding and cookie after the swallow. No aspiration was observed during the study. Retrograde flow of thin liquids through the upper esophageal sphincter after the swallow with sequential sips of thin liquids. Swallowing Trials: Swallowing Trials Results Below: Recommendations: Recommended Diet Grade & Liquid Drinks/Liquids:: Thin Foods:: Easy to chew Comment: Medications whole in applesauce Recommended Compensatory Strategies: Direct Supervision - Small bites/sips, slow rate (sips one at a time), alternate bites/sips, sitting upright during and 30 min after meal, if increased s/s of aspiration during meal - STOP and resume at a later time. Comment: TBD Prognosis: Prognosis: Good Frequency: Additional (Frequency): Dysphagia therapy 3-5X/week during acute stay to monitor diet tolerance, train in recommended strategies, and to implement oropharyngeal exercise program to include Elvia, effortful, and Terence. Consults: GI consult due to retrograde flow of thin liquids through the UES with sequential sips, ENT consult upon discharge due to small white excrescence in the sub-glottis superior to the cricoid ring on the right side. Education: Education Completed: 1. Described result of evaluation., 2. Pt understands evaluation & agrees with goals and treatment plan., 4. Family/caregivers understand evaluation & agree w/ goals & tx plan. and 7. Pt requires further education on strategies & risks.
[2023-11-08] MEDS: Pantoprazole Sodium 40 MG Tablet PO ×2 (16:37→20:47)
[2023-11-08 18:26] LABS: Bedside Glucose 101 mg/dL (74-106)
[2023-11-08] MEDS: Atorvastatin Calcium 20 MG Tablet PO (20:47)
[2023-11-08 22:05] LABS: Bedside Glucose 99 mg/dL (74-106)
[2023-11-09] VITALS (8 sets, daily range): BP systolic 134–148; BP diastolic 62–70; PULSE 75–84; RESP 16–18; TEMP 36.5–37.5; O2SAT 91–96; BMI 29.7
[2023-11-09] MEDS: Gabapentin 100 MG Capsule PO ×3 (05:50→21:09)
[2023-11-09 07:11] LABS: Hematocrit 31.7 % (40-54); Hemoglobin 10.2 g/dL (13.0-16.5); Mean Corp Hgb Conc 32.2 g/dL (32-36); Mean Corpuscular Hgb 30.7 pg (27.0-32.0); Mean Corpuscular Volume 95.5 fL (80-94); Mean Platelet Vol. 9.6 fl (6.2-12.0); Platelet Count 178 K/mm3 (150-450); RBC Distribution Width CV 15.4 % (11.6-14.6); RBC Distribution Width SD 51.8 fl (35.1-43.9); Red Blood Count 3.32 M/mm3 (4.6-6.2); White Blood Count 7.8 K/mm3 (4.4-11.0)
[2023-11-09 07:22] LABS: Bedside Glucose 105 mg/dL (74-106)
[2023-11-09 07:35] LABS: Anion Gap 11 (5-15); BUN 74 mg/dL (7-18); BUN/Creat Ratio 10.2 RATIO (10-20); Chloride 101 mmol/L (98-107); Creatinine, Serum 7.27 mg/dL (0.70-1.30); EST Glomerular Filtration Rate 8 mL/min (>60); Est Glom Filt Rate - Afr Amer 10 mL/min (>60); Estimated Creatinine Clearance 11.98 ml/min; Glucose 99 mg/dL (74-106); Potassium 4.3 mmol/L (3.5-5.1); Sodium Level 134 mmol/L (136-145)
[2023-11-09] MEDS: VALPROATE SODIUM IV (10:30)
[2023-11-09] MEDS: WATER IV (10:30)
[2023-11-09] MEDS: DEXTROSE 5% IV (10:30)
[2023-11-09] MEDS: Menthol/Lanolin/Calamine/Znox 113 GM Tube 1 APPLIC TOPICAL ×2 (10:31→21:08)
[2023-11-09] MEDS: Nystatin Powder 15gm Bottle 1 APPLIC TOPICAL ×2 (10:31→21:08)
[2023-11-09] MEDS: Pantoprazole Sodium 40 MG Tablet PO ×2 (10:33→21:09)
[2023-11-09] MEDS: Metoprolol Tartrate 25 MG Tablet PO (10:33)
[2023-11-09] MEDS: amLODIPine 10 MG Tablet PO (10:33)
[2023-11-09] MEDS: BRIMONIDINE 0.2% 5ML BOTTLE 1 DRP OPHTHALMIC ×2 (10:35→21:07)
[2023-11-09] MEDS: Latanoprost 0.005% 1 Bottle 1 DRP RIGHT EYE ×2 (10:35→21:09)
--- NOTE | 2023-11-09 12:23 | PN.HOSP_ITS ---
Reason for Visit Reason for Visit: Diagnoses Acute on chronic diastolic (congestive) heart failure (10/30/23) Heart failure, unspecified (10/30/23) Pneumonia, unspecified organism (10/30/23) Acute respiratory failure with hypoxia (10/30/23) End stage renal disease (10/30/23) Subjective Subjective No acute events overnight. Patient seen at bedside this morning, present. Patient laying in bed fairly comfortably, no acute distress. Appears similar to previous days. Continues to appear weak and has fairly weak voice. Denies any acute pain or discomfort this morning. Did discuss with patient and about plans for discharge and was in agreement that patient is very weak at this time and she would be unable to take care of him at home, and thus he would require SNF placement at discharge. Patient appeared less enthused about this option. Objective Data Objective Data Vital Signs: Vital Signs Temp Pulse Resp BP Pulse Ox O2 Del Method O2 Flow Rate 97.7 F L 80 16 139/70 H 94 Nasal Cannula 1.5 11/09/23 10:26 11/09/23 10:33 11/09/23 10:26 11/09/23 10:33 11/09/23 10:26 11/09/23 10:26 11/09/23 09:19 FiO2 30 11/07/23 00:00 Oxygen Flow Rate (L/min) 1.5 Oxygen Delivery Method Nasal Cannula Weight: 94.1 kg Body Mass Index (BMI) 29.7 Intake & Output: Intake and Output for Last 24 Hours 11/07/23 11/08/23 11/09/23 23:59 23:59 23:59 Intake Total 220 / 220 530 / 530 Output Total 100 / 220 2370 / 2370 40 / 40 Balance 120 / 0 -1840 / -1840 -40 / -40 Lab / Micro Data 11/09/23 06:35 11/09/23 06:35 Labs: Laboratory Results - last 24 hr 11/08/23 15:28: POC Glucose 101 11/08/23 20:44: POC Glucose 99 11/09/23 06:16: POC Glucose 105 11/09/23 06:35: WBC 7.8, RBC 3.32 L, Hgb 10.2 L, Hct 31.7 L, MCV 95.5 H, MCH 30.7, MCHC 32.2, RDW Std Deviation 51.8 H, RDW Coeff of Silvia 15.4 H, Plt Count 178, MPV 9.6, Sodium 134 L, Potassium 4.3, Chloride 101, Carbon Dioxide 22.0, Anion Gap 11, BUN 74 H, Creatinine 7.27 H, Estim Creat Clear Calc 11.98, Est GFR (MDRD) Af Amer 10 L, Est GFR (MDRD) Non-Af 8 L, BUN/Creatinine Ratio 10.2, Glucose 99, Calcium 8.0 L Micro: Microbiology 10/30/23 01:20 Blood Culture (Wb) - Venous Blood Culture - Final No growth in 5 days. 10/30/23 01:45 Blood Culture (Wb) - Right Wrist Blood Culture - Final No growth in 5 days. 10/30/23 22:40 Sputum, Induced/Lukens Gram Stain - Final 10/30/23 22:40 Sputum, Induced/Lukens Respiratory Culture - Final Yeast, not Alana albicans 11/01/23 20:30 Stool Stool Occult Blood (EMILY) - Final Occult Blood Positive 10/30/23 01:40 Urine, Clean Catch Urine Culture - Final Culture exhibits no growth. 10/30/23 03:00 Mucosa - Nose Respiratory Panel (PCR) - Final Human [place] 10/30/23 01:40 Urine Catheter - Catheter Legionella Antigen - Final 10/30/23 01:40 Urine Catheter - Bland Streptococcus pneumoniae Antigen (M - Final 10/30/23 01:40 Mucosa - Nose SARS-CoV-2, Influenza & RSV (PCR) - Final Rhythm Strip Rhythm Strip: Sinus Rhythm Rate: 78 Physical Exam Const alert and no apparent distress Constitutional Narrative: Middle-age male, appears older than stated age, moderately fatigued appearing, otherwise sitting up comfortably in bed, answering questions with short appropriate responses, no acute distress. General Appearance: cooperative and comfortable HEENT normocephalic, head/scalp atraumatic, hearing grossly normal bilaterally and nasal mucous membranes and turbinates normal Mouth: dry mucous membranes Eyes PERRL, EOMs intact bilaterally and conjunctivae normal Neck full ROM Chest inspection of chest normal Resp normal respiratory effort and no use of accessory muscles Resp Narrative: Breathing comfortably on 2 L nasal cannula. Mildly diminished breath sounds bilaterally throughout, no wheezing or crackles noted. Cardio regular rate, regular rhythm, no murmurs and peripheral pulses 2+ throughout GI normal to inspection, nondistended, normoactive bowel sounds, soft to palpation, non-tender and non-distended Back/Spine normal ROM Extremity normal to inspection, full ROM and no pedal edema Skin no rashes or lesions noted Neuro moves all extremities and no focal motor deficits Assessment & Plan Assessment/Plan (1) Acute respiratory failure: QUALIFIERS: Respiratory failure complication: hypoxia Qualified Code(s): J96.01 - Acute respiratory failure with hypoxia (2) End stage renal disease: (3) Pneumonia: PLAN: Plan Patient is a 63-year-old male who presented to [facility] ED on 10/30/2023 with worsening dyspnea and hypoxia. 1. Acute on chronic hypoxic respiratory failure, improving Suspect multifactorial in setting of significant metabolic acidosis from missed HD sessions, human metapneumovirus infection and possible superimposed bacterial infection. Intubated on 10/29 and remained intubated until 11/05. Was successfully extubated to nasal cannula on 11/05. Stable for transfer out of the ICU on 11/06. ? Senior Speech Pathologist followed. Currently stable on 2 L nasal cannula at rest, continue to wean oxygen as able. 2. Human metapneumovirus infection, concern for superimposed bacterial infection Positive for human metapneumovirus on admit. Chest x-ray showed scattered bilateral airspace opacities consistent with pneumonia. Negative Gram stain, urine antigens negative, respiratory culture negative, blood cultures with no growth at 48 hours. Procalcitonin 0.42, upper limit of normal. ? Senior Speech Pathologist followed. Continue home budesonide and albuterol inhaler as needed. Discontinued IV antibiotics on 10/31. Did not require systemic steroids. 3. ESRD on HD with frequent missed HD sessions; metabolic acidosis, resolved Patient on Tuesday schedule, was apparently frequently missing sessions prior to admission and would go when volume overload caused worsening hypoxia for him. ? Nephrology following. Continuing home HD schedule. Receiving KRUPA and iron with dialysis sessions. 4. Acute on chronic anemia secondary to upper GI bleed Hemoglobin 9.0 on admit, down trended to 7.9 shortly after with IV fluids. Downtrended again to hemoglobin 6.8 on 10/30. No overt signs of bleeding noted. Baseline hemoglobin appears to be around 9-10. Iron studies show ferritin 1852, consistent with anemia of chronic disease. Transfused 1 unit of packed red blood cells on 10/30, repeat hemoglobin 8.7. However, was Hemoccult positive on 11/01. EGD on 11/03 showed oozing gastric ulcers with pigmented material that were injected, treated with heater probe and clipped. ? GI followed. Hemoglobin has remained stable post EGD. Continue to monitor CBC daily. Continue to hold home Eliquis, will discuss with GI on timing of restarting. Continue p.o. PPI twice daily. 5. Paroxysmal A-fib/flutter with RVR Patient noted to flip into A-fib with RVR on the evening of 10/30 after first HD session. Had heart rates in the 140s to 150s fairly consistently. Was given 2 doses of digoxin with only mild improvement. Flipped back into normal sinus rhythm with heart rate in the 80s on morning of 10/31 during dialysis session. Patient was noted to have mildly low BPs after first HD session, suspect that he may has had slightly too much volume removed leading to hypotension and worsening A-fib with RVR. BP much improved on 10/31 as well. ? Continue home Lopressor. Holding home Eliquis as noted above. Continue cardi ac monitoring. 6. Dysphagia ? Speech therapy following. FEES study done on 11/07, patient cleared for renal diet with direct supervision and sips one at a time with alternating bites and sips. Continue to monitor. Speech recommended that patient see ENT in the outpatient setting after discharge for further evaluation. 7. Debility ? PT/OT/case management following. Patient is significantly debilitated from baseline given his prolonged hospitalization. Planning for SNF on discharge. Chronic medical conditions: ? Type 2 diabetes mellitus: Reported history of diabetes, not currently on home medication. A1c 5.0% on admit. Had fairly low blood sugars so sliding scale insulin was discontinued. Can monitor glucose values on daily BMPs. ? History of CVA with left sided hemiparesis: Stable. ? Hypertension: Continue home Lopressor and amlodipine. ? Hyperlipidemia: Continue home statin. ? Anxiety/depression/RLS: Continue home gabapentin. ? Paroxysmal A-fib/flutter on Eliquis: Holding home Eliquis as noted above. Continue home Lopressor. ? Seizure disorder: Continue home Depakote. DVT prophylaxis: SCDs CODE STATUS: Full code, verified Expected disposition: SNF, TBD Total clinical time spent by myself addressing the patient's medical issues, reviewing all the data, and collaborating with patient's care team: 35 minutes. Charges/Coding Visit Charges Inpatient E&M: 59677 Subs Hosp L2
[2023-11-09] MEDS: Budesonide Respules 0.5 MG/2 ML AMPUL.NEB. INHALATION (19:49)
--- NOTE | 2023-11-09 20:18 | CASEMGMT ---
Social Work-discharge planning Noted therapy evaluations indicating patient would benefit from continued treatment. Patient is still requiring much assistance for transfers and mobility. This clinical writer met with patient and patient's Nessa in room. Patient sleeping soundly during social work visit and continue to sleep despite conversation this clinical writer and patient's about discharge planning. tearful, and confirms that does not feel able to physically care for the patient at home, with the patient's current functional status. reports that prior to the patient coming to the hospital, after dialysis days, it would take the the patient's nephew, and the patient's daughter to help the patient get up the stairs to the second level apartment. reports has been working with the landlord to get established in a first floor apartment, but this won't happen for another month. reports patient truly wants to go home, but does not feel able to manage patient's needs. Patient is nothing is also the home of this time, which is another factor in decreased support when the would need help with the patient. Reviewed jail facility list which was provided November 08, 2023. First choice is [facility], as this facility does have in-house dialysis. This clinical writer agreed to make referral to [facility] and see if facility can accept the patient. This is no will [place] back and have another conversation with the patient. Referral submitted via care port to [facility]. Plan: anticipate short-term jail facility. Pending referral at [facility]. -MELVIN Kaur, BRIDGE WELDER *This note was generated with [employer]UC[employer] dictation software. It may contain incorrect words, spelling, and punctuation that were not noted in review of the chart prior to signing*
[2023-11-09] MEDS: Atorvastatin Calcium 20 MG Tablet PO (21:09)
[2023-11-09] MEDS: Divalproex Sodium 250 MG Tablet 1000 MG PO (21:09)
[2023-11-09] MEDS: Acetaminophen 325 MG Tablet 650 MG PO (23:53)
[2023-11-10] VITALS (16 sets, daily range): BP systolic 111–227; BP diastolic 57–94; PULSE 76–107; RESP 13–22; TEMP 36.4–37.3; O2SAT 94–98; BMI 29.9; BMI 27.8; BMI 27.3
[2023-11-10] MEDS: Gabapentin 100 MG Capsule PO (05:27)
[2023-11-10] MEDS: Budesonide Respules 0.5 MG/2 ML AMPUL.NEB. INHALATION ×2 (07:17→19:32)
[2023-11-10 07:26] LABS: Hematocrit 28.8 % (40-54); Hemoglobin 9.4 g/dL (13.0-16.5); Mean Corp Hgb Conc 32.6 g/dL (32-36); Mean Corpuscular Hgb 31.2 pg (27.0-32.0); Mean Corpuscular Volume 95.7 fL (80-94); Mean Platelet Vol. 9.2 fl (6.2-12.0); Platelet Count 172 K/mm3 (150-450); RBC Distribution Width CV 15.3 % (11.6-14.6); RBC Distribution Width SD 51.6 fl (35.1-43.9); Red Blood Count 3.01 M/mm3 (4.6-6.2); White Blood Count 6.6 K/mm3 (4.4-11.0)
[2023-11-10] MEDS: 0.9% Normal Saline 1,000 ML IV.SOLN. 1000 ML OPERA.SITE (07:45)
[2023-11-10] MEDS: 0.9% Saline Lock 10 ML Syringe IV (07:46)
[2023-11-10] MEDS: PureFlow B 2K Dialysis Soln 1 BAG 6 BAG PF (07:46)
[2023-11-10] MEDS: BRIMONIDINE 0.2% 5ML BOTTLE 1 DRP OPHTHALMIC ×2 (09:03→21:35)
[2023-11-10] MEDS: Latanoprost 0.005% 1 Bottle 1 DRP RIGHT EYE ×2 (09:03→21:36)
[2023-11-10] MEDS: Menthol/Lanolin/Calamine/Znox 113 GM Tube 1 APPLIC TOPICAL ×2 (09:04→21:34)
[2023-11-10] MEDS: Nystatin Powder 15gm Bottle 1 APPLIC TOPICAL ×2 (09:05→21:34)
[2023-11-10 09:18] LABS: Anion Gap 13 (5-15); BUN 87 mg/dL (7-18); Calcium,Total 7.6 mg/dL (8.5-10.1); Chloride 102 mmol/L (98-107); Creatinine, Serum 8.69 mg/dL (0.70-1.30); EST Glomerular Filtration Rate 7 mL/min (>60); Est Glom Filt Rate - Afr Amer 8 mL/min (>60); Estimated Creatinine Clearance 9.71 ml/min; Glucose 83 mg/dL (74-106); Potassium 4.5 mmol/L (3.5-5.1); Sodium Level 134 mmol/L (136-145)
--- NOTE | 2023-11-10 09:49 | NUR.TO.PHY ---
pt lethargic, drowsy, mildly disoriented, slightly tachycardic at times. RN notified linux network administrator that pt is currently taking 300mg of gabapentin daily. linux network administrator will examine during rounds
[2023-11-10] MEDS: Heparin 10,000 UNITS/10 ML Vial IV (11:11)
[2023-11-10] MEDS: amLODIPine 10 MG Tablet PO (12:22)
[2023-11-10] MEDS: Metoprolol Tartrate 25 MG Tablet PO (12:22)
[2023-11-10] MEDS: Pantoprazole Sodium 40 MG Tablet PO (12:22)
[2023-11-10] MEDS: Valproic Acid 250 MG/5 ML UDC 500 MG PO ×3 (12:23→21:38)
--- NOTE | 2023-11-10 12:25 | PCM.PN.REN ---
Subjective Subjective Patient is resting in bed, at bedside. Just finished hemodialysis session today. Alert to name. No complaints. Objective Data Objective Data Vital Signs: Vital Signs Temp Pulse Resp BP Pulse Ox O2 Del Method O2 Flow Rate 97.5 F L 84 14 142/69 H 98 Nasal Cannula 2 11/10/23 09:13 11/10/23 11:12 11/10/23 11:12 11/10/23 11:12 11/10/23 11:12 11/10/23 11:12 11/10/23 11:12 FiO2 30 11/07/23 00:00 Oxygen Flow Rate (L/min) 2 Oxygen Delivery Method Nasal Cannula Weight: 86.5 kg Body Mass Index (BMI) 27.3 Intake & Output: Intake and Output for Last 24 Hours 11/08/23 11/09/23 11/10/23 23:59 23:59 23:59 Intake Total 530 / 530 350 / 350 Output Total 2370 / 2370 40 / 40 1300 / 1300 Balance -1840 / -1840 310 / 310 -1300 / -1300 Lab / Micro Data 11/10/23 06:55 11/10/23 06:55 Labs: Laboratory Results - last 24 hr 11/10/23 06:55: WBC 6.6, RBC 3.01 L, Hgb 9.4 L, Hct 28.8 L, MCV 95.7 H, MCH 31.2, MCHC 32.6, RDW Std Deviation 51.6 H, RDW Coeff of Silvia 15.3 H, Plt Count 172, MPV 9.2, Sodium 134 L, Potassium 4.5, Chloride 102, Carbon Dioxide 19.0 L, Anion Gap 13, BUN 87 H, Creatinine 8.69 H*, Estim Creat Clear Calc 9.71, Est GFR (MDRD) Af Amer 8 L, Est GFR (MDRD) Non-Af 7 L, BUN/Creatinine Ratio 10.0, Glucose 83, Calcium 7.6 L Micro: Microbiology 10/30/23 01:20 Blood Culture (Wb) - Venous Blood Culture - Final No growth in 5 days. 10/30/23 01:45 Blood Culture (Wb) - Right Wrist Blood Culture - Final No growth in 5 days. 10/30/23 22:40 Sputum, Induced/Lukens Gram Stain - Final 10/30/23 22:40 Sputum, Induced/Lukens Respiratory Culture - Final Yeast, not Alana albicans 11/01/23 20:30 Stool Stool Occult Blood (EMILY) - Final Occult Blood Positive 10/30/23 01:40 Urine, Clean Catch Urine Culture - Final Culture exhibits no growth. 10/30/23 03:00 Mucosa - Nose Respiratory Panel (PCR) - Final Human [place] 10/30/23 01:40 Urine Catheter - Catheter Legionella Antigen - Final 10/30/23 01:40 Urine Catheter - Bland Streptococcus pneumoniae Antigen (M - Final 10/30/23 01:40 Mucosa - Nose SARS-CoV-2, Influenza & RSV (PCR) - Final Rhythm Strip Rhythm Strip: Sinus Rhythm Rate: 78 Physical Exam Narrative Awake, alert to self no obvious distress s1s2 no murmurs abdomen soft Lung sounds clear anteriorly and posteriorly no edema AV fistula right forearm positive thrill and bruit Tunneled HD catheter dressing clean, dry and intact Assessment & Plan Assessment/Plan (1) End stage renal disease: PLAN: - On outpatient hemodialysis at [facility] Tuesday schedule. Patient underwent hemodialysis today and tolerated around 1.3 L fluid removal. Discharge planning is in progress likely to SNF. Quite possibly patient will be in hospital over weekend therefore we will plan for hemodialysis tomorrow. - Anemia of chronic disease; hemoglobins have improved, patient has received KRUPA with HD. Will monitor hemoglobin trends. -Hypertension; blood pressures acceptable on metoprolol 25 mg daily and amlodipine 10 mg daily.
--- NOTE | 2023-11-10 12:32 | PCM.PN.HOSP ---
Reason for Visit Reason for Visit: Diagnoses Acute on chronic diastolic (congestive) heart failure (10/30/23) Heart failure, unspecified (10/30/23) Pneumonia, unspecified organism (10/30/23) Acute respiratory failure with hypoxia (10/30/23) End stage renal disease (10/30/23) Subjective Subjective No acute events overnight. Patient seen at bedside this morning, present. Patient sitting up in bed and appears moderately improved from previous days, has more energy and is more conversational than he previously has been. He reports feeling hungry and wishes that he could have a regular diet, but understands his restrictions due to his dysphagia. He otherwise denies any acute concerns this point. Objective Data Objective Data Vital Signs: Vital Signs Temp Pulse Resp BP Pulse Ox O2 Del Method O2 Flow Rate 97.5 F L 84 14 135/77 H 98 Nasal Cannula 2 11/10/23 09:13 11/10/23 12:22 11/10/23 11:12 11/10/23 12:22 11/10/23 11:12 11/10/23 11:12 11/10/23 11:12 FiO2 30 11/07/23 00:00 Oxygen Flow Rate (L/min) 2 Oxygen Delivery Method Nasal Cannula Weight: 86.5 kg Body Mass Index (BMI) 27.3 Intake & Output: Intake and Output for Last 24 Hours 11/08/23 11/09/23 11/10/23 23:59 23:59 23:59 Intake Total 530 / 530 350 / 350 Output Total 2370 / 2370 40 / 40 1300 / 1300 Balance -1840 / -1840 310 / 310 -1300 / -1300 Lab / Micro Data 11/10/23 06:55 11/10/23 06:55 Labs: Laboratory Results - last 24 hr 11/10/23 06:55: WBC 6.6, RBC 3.01 L, Hgb 9.4 L, Hct 28.8 L, MCV 95.7 H, MCH 31.2, MCHC 32.6, RDW Std Deviation 51.6 H, RDW Coeff of Silvia 15.3 H, Plt Count 172, MPV 9.2, Sodium 134 L, Potassium 4.5, Chloride 102, Carbon Dioxide 19.0 L, Anion Gap 13, BUN 87 H, Creatinine 8.69 H*, Estim Creat Clear Calc 9.71, Est GFR (MDRD) Af Amer 8 L, Est GFR (MDRD) Non-Af 7 L, BUN/Creatinine Ratio 10.0, Glucose 83, Calcium 7.6 L Micro: Microbiology 10/30/23 01:20 Blood Culture (Wb) - Venous Blood Culture - Final No growth in 5 days. 10/30/23 01:45 Blood Culture (Wb) - Right Wrist Blood Culture - Final No growth in 5 days. 10/30/23 22:40 Sputum, Induced/Lukens Gram Stain - Final 10/30/23 22:40 Sputum, Induced/Lukens Respiratory Culture - Final Yeast, not Alana albicans 11/01/23 20:30 Stool Stool Occult Blood (EMILY) - Final Occult Blood Positive 10/30/23 01:40 Urine, Clean Catch Urine Culture - Final Culture exhibits no growth. 10/30/23 03:00 Mucosa - Nose Respiratory Panel (PCR) - Final Human [place] 10/30/23 01:40 Urine Catheter - Catheter Legionella Antigen - Final 10/30/23 01:40 Urine Catheter - Bland Streptococcus pneumoniae Antigen (M - Final 10/30/23 01:40 Mucosa - Nose SARS-CoV-2, Influenza & RSV (PCR) - Final Rhythm Strip Rhythm Strip: Sinus Rhythm Rate: 78 Physical Exam Const alert and no apparent distress Constitutional Narrative: Middle-age male, appears older than stated age, sitting up comfortably in bed, appears moderately improved today with improved energy and conversation, no acute distress. General Appearance: cooperative and comfortable HEENT normocephalic, head/scalp atraumatic, hearing grossly normal bilaterally and nasal mucous membranes and turbinates normal Mouth: dry mucous membranes Eyes PERRL, EOMs intact bilaterally and conjunctivae normal Neck full ROM Chest inspection of chest normal Resp normal respiratory effort and no use of accessory muscles Resp Narrative: Breathing comfortably on 2 L nasal cannula. Mildly diminished breath sounds bilaterally throughout, no wheezing or crackles noted. Cardio regular rate, regular rhythm, no murmurs and peripheral pulses 2+ throughout GI normal to inspection, nondistended, normoactive bowel sounds, soft to palpation, non-tender and non-distended Back/Spine normal ROM Extremity normal to inspection, full ROM and no pedal edema Skin no rashes or lesions noted Neuro moves all extremities and no focal motor deficits Assessment & Plan Assessment/Plan (1) Acute respiratory failure: QUALIFIERS: Respiratory failure complication: hypoxia Qualified Code(s): J96.01 - Acute respiratory failure with hypoxia (2) End stage renal disease: (3) Pneumonia: PLAN: Plan Patient is a 63-year-old male who presented to [facility] ED on 10/30/2023 with worsening dyspnea and hypoxia. 1. Acute on chronic hypoxic respiratory failure, improving Suspect multifactorial in setting of significant metabolic acidosis from missed HD sessions, human metapneumovirus infection and possible superimposed bacterial infection. Intubated on 10/29 and remained intubated until 11/05. Was successfully extubated to nasal cannula on 11/05. Stable for transfer out of the ICU on 11/06. ? Human Resources Associate followed. Currently stable on 2 L nasal cannula at rest, continue to wean oxygen as able. 2. Human metapneumovirus infection, concern for superimposed bacterial infection Positive for human metapneumovirus on admit. Chest x-ray showed scattered bilateral airspace opacities consistent with pneumonia. Negative Gram stain, urine antigens negative, respiratory culture negative, blood cultures with no growth at 48 hours. Procalcitonin 0.42, upper limit of normal. ? Human Resources Associate followed. Continue home budesonide and albuterol inhaler as needed. Discontinued IV antibiotics on 10/31. Did not require systemic steroids. 3. ESRD on HD with frequent missed HD sessions; metabolic acidosis, resolved Patient on Tuesday schedule, was apparently frequently missing sessions prior to admission and would go when volume overload caused worsening hypoxia for him. ? Nephrology following. Continuing home HD schedule. Receiving KRUPA and iron with dialysis sessions. 4. Acute on chronic anemia secondary to upper GI bleed Hemoglobin 9.0 on admit, down trended to 7.9 shortly after with IV fluids. Downtrended again to hemoglobin 6.8 on 10/30. No overt signs of bleeding noted. Baseline hemoglobin appears to be around 9-10. Iron studies show ferritin 1852, consistent with anemia of chronic disease. Transfused 1 unit of packed red blood cells on 10/30, repeat hemoglobin 8.7. However, was Hemoccult positive on 11/01. EGD on 11/03 showed oozing gastric ulcers with pigmented material that were injected, treated with heater probe and clipped. ? GI followed. Hemoglobin has remained stable post EGD. Continue to monitor CBC daily. Home Eliquis restarted on 11/09, monitor for signs of GI bleeding. Continue p.o. PPI twice daily. 5. Paroxysmal A-fib/flutter with RVR Patient noted to flip into A-fib with RVR on the evening of 10/30 after first HD session. Had heart rates in the 140s to 150s fairly consistently. Was given 2 doses of digoxin with only mild improvement. Flipped back into normal sinus rhythm with heart rate in the 80s on morning of 10/31 during dialysis session. Patient was noted to have mildly low BPs after first HD session, suspect that he may has had slightly too much volume removed leading to hypotension and worsening A-fib with RVR. BP much improved on 10/31 as well. ? Continue home Lopressor. Eliquis restarted on 11/09 as noted above. Continue cardiac monitoring. 6. Dysphagia ? Speech therapy following. FEES study done on 11/07, patient cleared for renal diet with direct supervision and sips one at a time with alternating bites and sips. Continue to monitor. Speech recommended that patient see ENT in the outpatient setting after discharge for further evaluation. 7. Debility ? PT/OT/case management following. Patient is significantly debilitated from baseline given his prolonged hospitalization. Planning for SNF on discharge. Chronic medical conditions: ? Type 2 diabetes mellitus: Reported history of diabetes, not currently on home medication. A1c 5.0% on admit. Had fairly low blood sugars so sliding scale insulin was discontinued. Can monitor glucose values on daily BMPs. ? History of CVA with left sided hemiparesis: Stable. ? Hypertension: Continue home Lopressor and amlodipine. ? Hyperlipidemia: Continue home statin. ? Anxiety/depression/RLS: Holding home gabapentin given concern for this causing excessive sedation for the patient in setting of his kidney failure. ? Seizure disorder: Continue home Depakote. DVT prophylaxis: Eliquis CODE STATUS: Full code, verified Expected disposition: SNF, TBD Total clinical time spent by myself addressing the patient's medical issues, reviewing all the data, and collaborating with patient's care team: 35 minutes. Charges/Coding Visit Charges Inpatient E&M: 84629 Subs Hosp L2
--- NOTE | 2023-11-10 13:00 | CASEMGMT ---
Social Work Received word back from [facility] inpatient can be accepted. [facility] insurance authorization. -MELVIN Kaur, FIELD ACCOUNT DIRECTOR *This note was generated with [employer] software. It may contain incorrect words, spelling, and punctuation that were not noted in review of the chart prior to signing*
[2023-11-10] MEDS: Albuterol 2.5 MG/3 ML VIAL.NEB. INHALATION (19:32)
[2023-11-11] VITALS (13 sets, daily range): BP systolic 123–188; BP diastolic 61–81; PULSE 77–97; RESP 16–20; TEMP 36.9–37.4; O2SAT 93–100; BMI 29.4; BMI 30.8
[2023-11-11] MEDS: Valproic Acid 250 MG/5 ML UDC 500 MG PO ×3 (03:40→17:43)
[2023-11-11] MEDS: 0.9% Saline Lock 10 ML Syringe IV (06:30)
[2023-11-11] MEDS: Budesonide Respules 0.5 MG/2 ML AMPUL.NEB. INHALATION (07:26)
[2023-11-11 07:39] LABS: Hematocrit 28.4 % (40-54); Hemoglobin 9.1 g/dL (13.0-16.5); Mean Corpuscular Hgb 30.8 pg (27.0-32.0); Mean Corpuscular Volume 96.3 fL (80-94); Mean Platelet Vol. 9.2 fl (6.2-12.0); Platelet Count 166 K/mm3 (150-450); RBC Distribution Width CV 15.1 % (11.6-14.6); RBC Distribution Width SD 51.9 fl (35.1-43.9); Red Blood Count 2.95 M/mm3 (4.6-6.2); White Blood Count 6.3 K/mm3 (4.4-11.0)
[2023-11-11 08:09] LABS: Anion Gap 10 (5-15); BUN 68 mg/dL (7-18); BUN/Creat Ratio 9.7 RATIO (10-20); Calcium,Total 7.7 mg/dL (8.5-10.1); Chloride 102 mmol/L (98-107); Creatinine, Serum 6.99 mg/dL (0.70-1.30); EST Glomerular Filtration Rate 9 mL/min (>60); Est Glom Filt Rate - Afr Amer 10 mL/min (>60); Glucose 106 mg/dL (74-106); Potassium 4.2 mmol/L (3.5-5.1); Sodium Level 135 mmol/L (136-145)
[2023-11-11] MEDS: Pantoprazole Sodium 40 MG Tablet PO (10:06)
[2023-11-11] MEDS: APIXABAN 5 MG TABLET PO (10:07)
[2023-11-11] MEDS: Nystatin Powder 15gm Bottle 1 APPLIC TOPICAL (10:10)
[2023-11-11] MEDS: Menthol/Lanolin/Calamine/Znox 113 GM Tube 1 APPLIC TOPICAL (10:11)
[2023-11-11] MEDS: BRIMONIDINE 0.2% 5ML BOTTLE 1 DRP OPHTHALMIC (10:11)
[2023-11-11] MEDS: Latanoprost 0.005% 1 Bottle 1 DRP RIGHT EYE (10:13)
--- NOTE | 2023-11-11 11:00 | PN.RENAL_ITS ---
Subjective Subjective Follow-up on ESRD. Last dialysis session yesterday, he is edema is better. He is scheduled to have dialysis today to be changed to Tuesday schedule, that is going to be his outpatient schedule starting next week Objective Data Objective Data Vital Signs: Vital Signs Temp Pulse Resp BP Pulse Ox O2 Del Method O2 Flow Rate 98.4 F 88 18 169/80 H 95 Nasal Cannula 2 11/11/23 10:01 11/11/23 10:01 11/11/23 10:01 11/11/23 10:01 11/11/23 10:01 11/11/23 10:15 11/11/23 10:15 FiO2 30 11/07/23 00:00 Oxygen Flow Rate (L/min) 2 Oxygen Delivery Method Nasal Cannula Weight: 93.1 kg Body Mass Index (BMI) 29.4 Intake & Output: Intake and Output for Last 24 Hours 11/09/23 11/10/23 11/11/23 23:59 23:59 23:59 Intake Total 350 / 350 330 / 330 120 / 120 Output Total 40 / 40 1300 / 1300 Balance 310 / 310 -970 / -970 120 / 120 Lab / Micro Data Attestation: I reviewed the patient's lab results. 11/11/23 06:35 11/11/23 06:35 Labs: Laboratory Results - last 24 hr 11/11/23 06:35: WBC 6.3, RBC 2.95 L, Hgb 9.1 L, Hct 28.4 L, MCV 96.3 H, MCH 30.8, MCHC 32.0, RDW Std Deviation 51.9 H, RDW Coeff of Silvia 15.1 H, Plt Count 16 6, MPV 9.2, Sodium 135 L, Potassium 4.2, Chloride 102, Carbon Dioxide 23.0, A nion Gap 10, BUN 68 H, Creatinine 6.99 H, Estim Creat Clear Calc 12.40, Est GFR (MDRD) Af Amer 10 L, Est GFR (MDRD) Non-Af 9 L, BUN/Creatinine Ratio 9.7 L, Glucose 106, Calcium 7.7 L Micro: Microbiology 10/30/23 01:20 Blood Culture (Wb) - Venous Blood Culture - Final No growth in 5 days. 10/30/23 01:45 Blood Culture (Wb) - Right Wrist Blood Culture - Final No growth in 5 days. 10/30/23 22:40 Sputum, Induced/Lukens Gram Stain - Final 10/30/23 22:40 Sputum, Induced/Lukens Respiratory Culture - Final Yeast, not Alana albicans 11/01/23 20:30 Stool Stool Occult Blood (EMILY) - Final Occult Blood Positive 10/30/23 01:40 Urine, Clean Catch Urine Culture - Final Culture exhibits no growth. 10/30/23 03:00 Mucosa - Nose Respiratory Panel (PCR) - Final Human [place] 10/30/23 01:40 Urine Catheter - Catheter Legionella Antigen - Final 10/30/23 01:40 Urine Catheter - Bland Streptococcus pneumoniae Antigen (M - Final 10/30/23 01:40 Mucosa - Nose SARS-CoV-2, Influenza & RSV (PCR) - Final Rhythm Strip Rhythm Strip: Sinus Rhythm Rate: 78 Physical Exam Const alert and no apparent distress General Appearance: well developed Orientation / Consciousness: oriented to person and oriented to place HEENT normocephalic Head and Scalp: atraumatic Neck no lymphadenopathy Resp no use of accessory muscles GI non-tender Auscultation: normoactive bowel sounds Palpation: soft Extremity General Extremity: edema bilateral Skin no rashes or lesions noted Neuro Sensorium / Orientation: awake Psych cooperative Assessment & Plan Assessment/Plan (1) End stage renal disease: PLAN: He seems to be still fluid overloaded, especially left upper extremity Will dialyze today with some ultrafiltration, hopefully that will improve his volume status
[2023-11-11] MEDS: 0.9% Normal Saline 1,000 ML IV.SOLN. 1000 ML OPERA.SITE (13:38)
[2023-11-11] MEDS: PureFlow B 2K Dialysis Soln 1 BAG 6 BAG PF (13:39)
[2023-11-11] MEDS: Epoetin Alfa epbx 10,000 UNITS/ML 20000 UNIT IV (13:40)
--- NOTE | 2023-11-11 14:46 | TREXTCAR_ITS ---
Diet Diet Order/Speech Therapy: 11/08/23 14:31 Diet: Renal - General Food consistency:: Easy to Chew Liquid Consistency:: Regular/Thin Is pt able to select menu?: Yes Diet Comments: Direct Supervision - Sips one at a time, alternate bites/sips Routine Orders/Code Status O2 Frequency: Continuous Keep PO Greater than or Equal to (%): 90 Code Status: Full Code Therapies Weight Bearing: Full weight bearing Physical Therapy: Eval and Treat Occupational Therapy: Eval and Treat Speech Therapy: Eval and Treat Problem/Diagnosis (1) End stage renal disease: Status: Acute Code(s): N18.6 - End stage renal disease Plan Patient is a 63-year-old male who presented to [facility] ED on 10/30/2023 with worsening dyspnea and hypoxia. Hospital course as noted below. Patient discharged to SNF in stable condition on 11/10. 1. Acute on chronic hypoxic respiratory failure, improving Suspect multifactorial in setting of significant metabolic acidosis from missed HD sessions, human metapneumovirus infection and possible superimposed bacterial infection. Intubated on 10/29 and remained intubated until 11/05. Was successfully extubated to nasal cannula on 11/05. Stable for transfer out of the ICU on 11/06. ? Director Of Provider Relations followed. Remained stable on 2 L nasal cannula at rest for last several days of admission, will continue on discharge. 2. Human metapneumovirus infection, concern for superimposed bacterial infection Positive for human metapneumovirus on admit. Chest x-ray showed scattered bilateral airspace opacities consistent with pneumonia. Negative Gram stain, urine antigens negative, respiratory culture negative, blood cultures with no growth at 48 hours. Procalcitonin 0.42, upper limit of normal. ? Director Of Provider Relations followed. Continue home budesonide and albuterol inhaler as needed. Discontinued IV antibiotics on 10/31. Did not require systemic steroids. 3. ESRD on HD with frequent missed HD sessions; metabolic acidosis, resolved Patient on Tuesday schedule, was apparently frequently missing sessions prior to admission and would go when volume overload caused worsening hypoxia for him. ? Nephrology followed. Continued home HD schedule. Receiving KRUPA and iron with dialysis sessions. 4. Acute on chronic anemia secondary to upper GI bleed Hemoglobin 9.0 on admit, down trended to 7.9 shortly after with IV fluids. Downtrended again to hemoglobin 6.8 on 10/30. No overt signs of bleeding noted. Baseline hemoglobin appears to be around 9-10. Iron studies show ferritin 1852, consistent with anemia of chronic disease. Transfused 1 unit of packed red blood cells on 10/30, repeat hemoglobin 8.7. However, was Hemoccult positive on 11/01. EGD on 11/03 showed oozing gastric ulcers with pigmented material that were injected, treated with heater probe and clipped. ? GI followed. Hemoglobin has remained stable post EGD. Home Eliquis restarted on 11/09 with no signs of bleeding, hemoglobin stable on 11/10. Continue p.o. PPI twice daily. 5. Paroxysmal A-fib/flutter with RVR Patient noted to flip into A-fib with RVR on the evening of 10/30 after first HD session. Had heart rates in the 140s to 150s fairly consistently. Was given 2 doses of digoxin with only mild improvement. Flipped back into normal sinus rhythm with heart rate in the 80s on morning of 10/31 during dialysis session. Patient was noted to have mildly low BPs after first HD session, suspect that he may has had slightly too much volume removed leading to hypotension and worsening A-fib with RVR. BP much improved on 10/31 as well. ? Continue home Lopressor. Eliquis restarted on 11/09 as noted above. 6. Dysphagia ? Speech therapy followed. FEES study done on 11/07, patient cleared for renal diet with direct supervision and sips one at a time with alternating bites and sips. Will continue this on discharge. Speech recommended that patient see ENT in the outpatient setting after discharge for further evaluation. 7. Debility ? PT/OT/case management followed. Patient is significantly debilitated from baseline given his prolonged hospitalization. Discharged to SNF in stable condition on 11/10. Chronic medical conditions: ? Type 2 diabetes mellitus: Reported history of diabetes, not currently on home medication. A1c 5.0% on admit. Had fairly low blood sugars so sliding scale insulin was discontinued. ? History of CVA with left sided hemiparesis: Stable. ? Hypertension: Continue home Lopressor and amlodipine. ? Hyperlipidemia: Continue home statin. ? Anxiety/depression/RLS: Held home gabapentin 100 mg 3 times daily given concern that this was causing some degree of sedation in setting of poor clearance with his kidney failure. ? Seizure disorder: Continue home Depakote. Total clinical time spent by myself addressing the patient's medical issues, reviewing all the data, and collaborating with patient's care team: 35 minutes. Allergies/Procedures Done in Hospital Allergies lisinopril Adverse Reaction (Severe, Verified 07/31/23 16:32) Other chest pain oxycodone Adverse Reaction (Severe, Verified 07/31/23 16:32) Other hypertension hydrocodone bitartrate [From Vicodin] Adverse Reaction (Mild, Verified 07/31/23 16:32) HYPER Procedures: Dialysis, EGD, EKG and - (Chest x-ray x 4, CT brain without contrast x 2, MRI brain without contrast) Type of Care/Length of Stay Estimated LOS: Convalescent Care Less Than 30 days Type of Care Needed: Skilled Rehab Potential: Fair Prognosis: Fair Additional Orders/Day of Discharge H&P will serve as current which was dated: 10/30/23 Day of Discharge: 11/11/23 Dietary and Speech Recommendations Dietitian Recommendations/Changes: Continue renal-general diet as tolerated; consider CHO controlled diet if hyperglycemia occurs. texture/consistency modifications per DATA WAREHOUSING ARCHITECT. Will offer 120mL Nepro ONS w/ medpass for additional nutrition if consumed. Discharge Plan Admission Admit Date/Time: 10/30/23 03:07 Primary Reason for Your Visit: Upper respiratory symptoms and fevers Attending Provider: Justin Patel Primary Care Provider: Amish Han Consulting Providers: Unique Deleon; Odilon Mckeon; Delphine Ness; Justin Patel; Mainor Abreu; Katherin Sandoval; Flaco Herrera; Lalita Almeida; Yen New; Ata Brice; Milton Lopes; DANE CADE; Irma Schmitz; Angeles Mobley; Felipe Lundberg; Manasa Ann Discharge Orders/Prescriptions Prescriptions: New guaifenesin 100 mg/5 mL Liquid 200 mg PO Q4H PRN PRN (Reason: Cough) Qty: 0 0RF pantoprazole 40 mg Tablet,Delayed Release (Dr/Ec) 40 mg PO BID Qty: 0 0RF nystatin [Nyamyc] 100,000 unit/gram Powder 1 applic topical BID Qty: 0 0RF Protocol: *Topical Application Instructions APPLICATION INSTRUCTIONS: groin Nepro Carb Steady 0.08 gram-1.8 kcal/mL Liquid 120 ml PO 4X/DAY Qty: 0 0RF Continued albuterol sulfate [Ventolin HFA] 90 mcg/actuation HFA aerosol inhaler 2 puff inhalation Q6H PRN (Reason: Wheezing) metoprolol tartrate 25 mg tablet 25 mg PO DAILY Eliquis 5 mg tablet 5 mg PO BID Qty: 60 0RF atorvastatin 10 mg Tablet 20 mg PO QHS amlodipine 10 mg tablet 10 mg PO DAILY Qty: 30 0RF divalproex [Depakote] 500 mg tablet,delayed release (DR/EC) 1,000 mg PO BID brimonidine 0.2 % drops 1 drp ophthalmic (eye) BID Patient Comments: Instill 1 drop in the right eye 2 times a day latanoprost 0.005 % drops 1 drp RIGHT EYE BID (DME) Manual wheelchair See Rx Instructions .Route .MEDSUPPLY Qty: 1 0RF Rx Instructions: ICD 10: Polyneuropathy (G62.9); cerebral infarction (I69.30); weakness (R53.1) Discontinued gabapentin 100 mg capsule 100 mg PO TID Qty: 90 3RF Referrals / Follow Up: Amish Han MD [Primary Care Provider] - Disposition Disposition (needs filled in before D/C Order can be placed): Long Term Facility
--- NOTE | 2023-11-11 14:54 | DS.PCM_ITS ---
Providers Date of Admission: 10/30/23 Date of Discharge: 11/11/23 Primary Care Physician: Dr. Amish Han MD Consultations 10/30/23 04:19 Consult: Nephrology Routine Consulting Provider: Katherin Sandoval Reason for Consult: ESRD on HD, needs HD, missed Tuesday regimen EMERGENT Consult: No MD Notified: Yes Date Notified: 10/30/23 Time Notified: 03:11 Method of Notification: Answering Service 10/30/23 22:10 Consult: Mems Integration Engineer / Pulmonary Medicine Routine Consulting Provider: Pulmonary Medicine shad [place] Reason for Consult: Vent management EMERGENT Consult: No MD Notified: Yes Date Notified: 10/31/23 Time Notified: 05:42 Method of Notification: Text 11/02/23 12:57 Consult: Gastroenterology Routine Consulting Provider: [facility] Reason for Consult: acute on chronic anemia, occult positive EMERGENT Consult: No MD Notified: Yes Date Notified: 11/02/23 Time Notified: 13:40 Method of Notification: Text Reason For Visit: HYPOXIA, HF EXACERBATION, ? PNA Diagnosis Discharge Diagnosis (1) End stage renal disease: Status: Acute Code(s): N18.6 - End stage renal disease Medications at Discharge Home Medications apixaban 5 mg tablet (Eliquis) 5 mg PO BID #60 tabs 03/24/22 atorvastatin 10 mg tablet 20 mg PO QHS unknon 05/20/22 albuterol sulfate 90 mcg/actuation aerosol inhaler (Ventolin HFA) 2 puff inhalation Q6H PRN Wheezing 08/24/22 metoprolol tartrate 25 mg tablet 25 mg PO DAILY afib 08/24/22 amlodipine 10 mg tablet 10 mg PO DAILY #30 tabs 09/15/22 Manual wheelchair #1 ea 03/24/23 brimonidine 0.2 % eye drops 1 drp ophthalmic (eye) BID eyes 05/11/23 divalproex 500 mg tablet,delayed release (Depakote) 1,000 mg PO BID seizures 07/31/23 latanoprost 0.005 % eye drops 1 drp RIGHT EYE BID eyes 10/30/23 guaifenesin 100 mg/5 mL oral liquid 200 mg (10 mL) PO Q4H PRN PRN Cough #0 mL 11/11/23 nut.tx.imp.renal fxn,lac-reduc 0.08 gram-1.8 kcal/mL oral liquid (Nepro Carb Steady) 120 ml PO 4X/DAY #0 mL 11/11/23 nystatin 100,000 unit/gram topical powder (Nyamyc) 1 applic topical BID #0 grams 11/11/23 pantoprazole 40 mg tablet,delayed release 40 mg PO BID #0 tabs 11/11/23 Hospital Course Operations None Procedures Dialysis, EGD, EKG and - (Chest x-ray x 4, CT brain without contrast x 2, MRI brain without contrast ) Summary of Care Provided Minutes Spent on Discharge: 35 Hospital Course: Patient is a 63-year-old male who presented to [facility] ED on 10/30/2023 with worsening dyspnea and hypoxia. Hospital course as noted below. Patient discharged to SNF in stable condition on 11/10. 1. Acute on chronic hypoxic respiratory failure, improving Suspect multifactorial in setting of significant metabolic acidosis from missed HD sessions, human metapneumovirus infection and possible superimposed bacterial infection. Intubated on 10/29 and remained intubated until 11/05. Was successfully extubated to nasal cannula on 11/05. Stable for transfer out of the ICU on 11/06. ? Mems Integration Engineer followed. Remained stable on 2 L nasal cannula at rest for last several days of admission, will continue on discharge. 2. Human metapneumovirus infection, concern for superimposed bacterial infection Positive for human metapneumovirus on admit. Chest x-ray showed scattered bilateral airspace opacities consistent with pneumonia. Negative Gram stain, urine antigens negative, respiratory culture negative, blood cultures with no growth at 48 hours. Procalcitonin 0.42, upper limit of normal. ? Mems Integration Engineer followed. Continue home budesonide and albuterol inhaler as needed. Discontinued IV antibiotics on 10/31. Did not require systemic steroids. 3. ESRD on HD with frequent missed HD sessions; metabolic acidosis, resolved Patient on Tuesday schedule, was apparently frequently missing sessions prior to admission and would go when volume overload caused worsening hypoxia for him. ? Nephrology followed. Continued home HD schedule. Receiving KRUPA and iron with dialysis sessions. 4. Acute on chronic anemia secondary to upper GI bleed Hemoglobin 9.0 on admit, down trended to 7.9 shortly after with IV fluids. Downtrended again to hemoglobin 6.8 on 10/30. No overt signs of bleeding noted. Baseline hemoglobin appears to be around 9-10. Iron studies show ferritin 1852, consistent with anemia of chronic disease. Transfused 1 unit of packed red blood cells on 10/30, repeat hemoglobin 8.7. However, was Hemoccult positive on 11/01. EGD on 11/03 showed oozing gastric ulcers with pigmented material that were injected, treated with heater probe and clipped. ? GI followed. Hemoglobin has remained stable post EGD. Home Eliquis restarted on 11/09 with no signs of bleeding, hemoglobin stable on 11/10. Continue p.o. PPI twice daily. 5. Paroxysmal A-fib/flutter with RVR Patient noted to flip into A-fib with RVR on the evening of 10/30 after first HD session. Had heart rates in the 140s to 150s fairly consistently. Was given 2 doses of digoxin with only mild improvement. Flipped back into normal sinus rhythm with heart rate in the 80s on morning of 10/31 during dialysis session. Patient was noted to have mildly low BPs after first HD session, suspect that he may has had slightly too much volume removed leading to hypotension and worsening A-fib with RVR. BP much improved on 10/31 as well. ? Continue home Lopressor. Eliquis restarted on 11/09 as noted above. 6. Dysphagia ? Speech therapy followed. FEES study done on 11/07, patient cleared for renal diet with direct supervision and sips one at a time with alternating bites and sips. Will continue this on discharge. Speech recommended that patient see ENT in the outpatient setting after discharge for further evaluation. 7. Debility ? PT/OT/case management followed. Patient is significantly debilitated from baseline given his prolonged hospitalization. Discharged to SNF in stable condition on 11/10. Chronic medical conditions: ? Type 2 diabetes mellitus: Reported history of diabetes, not currently on home medication. A1c 5.0% on admit. Had fairly low blood sugars so sliding scale insulin was discontinued. ? History of CVA with left sided hemiparesis: Stable. ? Hypertension: Continue home Lopressor and amlodipine. ? Hyperlipidemia: Continue home statin. ? Anxiety/depression/RLS: Held home gabapentin 100 mg 3 times daily given concern that this was causing some degree of sedation in setting of poor clearance with his kidney failure. ? Seizure disorder: Continue home Depakote. Total clinical time spent by myself addressing the patient's medical issues, reviewing all the data, and collaborating with patient's care team: 35 minutes. Physical Exam Const alert and no apparent distress Constitutional Narrative: Middle-age male, appears older than stated age, resting comfortably in bed, does appear moderately fatigued today, otherwise conversing normally and in no acute distress. General Appearance: cooperative and comfortable HEENT normocephalic, head/scalp atraumatic, hearing grossly normal bilaterally and nasal mucous membranes and turbinates normal Mouth: dry mucous membranes Eyes PERRL, EOMs intact bilaterally and conjunctivae normal Neck full ROM Chest inspection of chest normal Resp normal respiratory effort and no use of accessory muscles Resp Narrative: Breathing comfortably on 2 L nasal cannula. Mildly diminished breath sounds bilaterally throughout, no wheezing or crackles noted, stable from previous. Cardio regular rate, regular rhythm, no murmurs and peripheral pulses 2+ throughout GI normal to inspection, nondistended, normoactive bowel sounds, soft to palpation, non-tender and non-distended Back/Spine normal ROM Extremity normal to inspection, full ROM and no pedal edema Skin no rashes or lesions noted Neuro moves all extremities and no focal motor deficits Weight / BMI Weight Weight: 97.522 kg Body Mass Index (BMI) 30.8 ABG / Lab / Microbiology Data 11/11/23 06:35 11/11/23 06:35 Laboratory: Laboratory Results - last 24 hr 11/11/23 06:35: WBC 6.3, RBC 2.95 L, Hgb 9.1 L, Hct 28.4 L, MCV 96.3 H, MCH 30 .8, MCHC 32.0, RDW Std Deviation 51.9 H, RDW Coeff of Silvia 15.1 H, Plt Count 166, MPV 9.2, Sodium 135 L, Potassium 4.2, Chloride 102, Carbon Dioxide 23.0, Anion Gap 10, BUN 68 H, Creatinine 6.99 H, Estim Creat Clear Calc 12.40, Est GFR (MDRD) Af Amer 10 L, Est GFR (MDRD) Non-Af 9 L, BUN/Creatinine Ratio 9.7 L, Glucose 106, Calcium 7.7 L Microbiology: Microbiology 10/30/23 01:20 Blood Culture (Wb) - Venous Blood Culture - Final No growth in 5 days. 10/30/23 01:45 Blood Culture (Wb) - Right Wrist Blood Culture - Final No growth in 5 days. 10/30/23 22:40 Sputum, Induced/Lukens Gram Stain - Final 10/30/23 22:40 Sputum, Induced/Lukens Respiratory Culture - Final Yeast, not Alana albicans 11/01/23 20:30 Stool Stool Occult Blood (EMILY) - Final Occult Blood Positive 10/30/23 01:40 Urine, Clean Catch Urine Culture - Final Culture exhibits no growth. 10/30/23 03:00 Mucosa - Nose Respiratory Panel (PCR) - Final Human [place] 10/30/23 01:40 Urine Catheter - Catheter Legionella Antigen - Final 10/30/23 01:40 Urine Catheter - Bland Streptococcus pneumoniae Antigen (M - Final 10/30/23 01:40 Mucosa - Nose SARS-CoV-2, Influenza & RSV (PCR) - Final Meaningful Use Info Meaningful Use Diagnoses (Choose all that apply): None applicable Discharge Plan Admission Admit Date/Time: 10/30/23 03:07 Primary Reason for Your Visit: Upper respiratory symptoms and fevers Attending Provider: Justin Patel Primary Care Provider: Amish Han Consulting Providers: Unique Deleon; Odilon Mckeon; Delphine Ness; Justin Patel; Mainor Abreu; Katherin Sandoval; Flaco Herrera; Lalita Almeida; Yen New; Ata Brice; Milton Lopes; DANE CADE; Irma Schmitz; Angeles Mobley; Felipe Lundberg; Manasa Ann Discharge Orders/Prescriptions Prescriptions: New guaifenesin 100 mg/5 mL Liquid 200 mg PO Q4H PRN PRN (Reason: Cough) Qty: 0 0RF pantoprazole 40 mg Tablet,Delayed Release (Dr/Ec) 40 mg PO BID Qty: 0 0RF nystatin [Nyamyc] 100,000 unit/gram Powder 1 applic topical BID Qty: 0 0RF Protocol: *Topical Application Instructions APPLICATION INSTRUCTIONS: groin Nepro Carb Steady 0.08 gram-1.8 kcal/mL Liquid 120 ml PO 4X/DAY Qty: 0 0RF Continued albuterol sulfate [Ventolin HFA] 90 mcg/actuation HFA aerosol inhaler 2 puff inhalation Q6H PRN (Reason: Wheezing) metoprolol tartrate 25 mg tablet 25 mg PO DAILY Eliquis 5 mg tablet 5 mg PO BID Qty: 60 0RF atorvastatin 10 mg Tablet 20 mg PO QHS amlodipine 10 mg tablet 10 mg PO DAILY Qty: 30 0RF divalproex [Depakote] 500 mg tablet,delayed release (DR/EC) 1,000 mg PO BID brimonidine 0.2 % drops 1 drp ophthalmic (eye) BID Patient Comments: Instill 1 drop in the right eye 2 times a day latanoprost 0.005 % drops 1 drp RIGHT EYE BID (DME) Manual wheelchair See Rx Instructions .Route .MEDSUPPLY Qty: 1 0RF Rx Instructions: ICD 10: Polyneuropathy (G62.9); cerebral infarction (I69.30); weakness (R53.1) Discontinued gabapentin 100 mg capsule 100 mg PO TID Qty: 90 3RF Referrals / Follow Up: Amish Han MD [Primary Care Provider] - Disposition Disposition (needs filled in before D/C Order can be placed): Jail Facility Charges/Coding Visit Charges Inpatient E&M: 40053 Disch Hosp >30min
--- NOTE | 2023-11-11 15:04 | PHA.DC.MR.R ---
Pharmacy [place] Med Reconciliation Pharmacy Service has performed discharge medication reconciliation for this patient. The patient's discharge medication list was reviewed for discrepancies and discrepancies were resolved. Medications at Discharge Home Medications apixaban 5 mg tablet (Eliquis) 5 mg PO BID #60 tabs 03/24/22 atorvastatin 10 mg tablet 20 mg PO QHS unknon 05/20/22 albuterol sulfate 90 mcg/actuation aerosol inhaler (Ventolin HFA) 2 puff inhalation Q6H PRN Wheezing 08/24/22 metoprolol tartrate 25 mg tablet 25 mg PO DAILY afib 08/24/22 amlodipine 10 mg tablet 10 mg PO DAILY #30 tabs 09/15/22 Manual wheelchair #1 ea 03/24/23 brimonidine 0.2 % eye drops 1 drp ophthalmic (eye) BID eyes 05/11/23 divalproex 500 mg tablet,delayed release (Depakote) 1,000 mg PO BID seizures 07/31/23 latanoprost 0.005 % eye drops 1 drp RIGHT EYE BID eyes 10/30/23 guaifenesin 100 mg/5 mL oral liquid 200 mg (10 mL) PO Q4H PRN PRN Cough #0 mL 11/11/23 nut.tx.imp.renal fxn,lac-reduc 0.08 gram-1.8 kcal/mL oral liquid (Nepro Carb Steady) 120 ml PO 4X/DAY #0 mL 11/11/23 nystatin 100,000 unit/gram topical powder (Nyamyc) 1 applic topical BID #0 grams 11/11/23 pantoprazole 40 mg tablet,delayed release 40 mg PO BID #0 tabs 11/11/23
--- NOTE | 2023-11-11 15:26 | CASEMGMT ---
Social Work Precert attained for pt to go to [facility] today. Physician is going to discharge pt. SW let pt and know that he can to go [facility] today, will set up transport for once dialysis is complete. LINDA completed the hospital exemption in [place]. LINDA set up an ambulance for 7pm. Discharge instructions sent to [facility] via [facility] along with the discharge time. LINDA let pt, RN in room know time of pickup. Pt's had to leave to machine operator picker pt's daughter as per pt, RN will let know when she returns. LINDA did also call [facility] and left a message for Becca Guillory, who has been working w/pt and family and pt's nephew, let her know pt is going to [facility] today. No further needs, pt to [facility] today, skilled level of care. MELVIN Truong
[2023-11-11] MEDS: Heparin 10,000 UNITS/10 ML Vial IV (17:08)
[2023-11-11] MEDS: Metoprolol Tartrate 25 MG Tablet PO (17:42)
[2023-11-11] MEDS: amLODIPine 10 MG Tablet PO (17:43)
[2023-11-11 20:34] LABS: Bedside Glucose 154 mg/dL (74-106)
== END 2023-11-11 20:35 | disposition skilled nursing facility (03) | DRG 207 ==
LOC: ED 03:13 → PCU 03:33 → ICU 10-31 06:44 → PCU 11-07 11:42
PROVIDERS: Internal Medicine; Internal Medicine Gastroenterology; Internal Medicine Pulmonary Disease; Student in an Organized Health Care Education/Training Program; Admitting Provider Family Medicine; Emergency Provider Emergency Medicine; PCP Family Medicine; Visit Provider Hospitalist
PROC: 0DJ08ZZ Inspection of Upper Intestinal Tract, Via Natural or Artificial Opening Endoscopic (ICD-10-PCS; CPT 43235; principal; 2023-11-04 11:25)
DX: J96.21 Acute and chronic respiratory failure with hypoxia (principal); I50.33 Acute on chronic diastolic (congestive) heart failure; J12.3 Human metapneumovirus pneumonia; K25.4 Chronic or unspecified gastric ulcer with hemorrhage; N18.6 End stage renal disease; J15.9 Unspecified bacterial pneumonia; D62 Acute posthemorrhagic anemia; E87.20 Acidosis, unspecified; I69.354 Hemiplegia and hemiparesis following cerebral infarction affecting left non-dominant side; J44.0 Chronic obstructive pulmonary disease with (acute) lower respiratory infection; I13.2 Hypertensive heart and chronic kidney disease with heart failure and with stage 5 chronic kidney disease, or end stage renal disease; I48.92 Unspecified atrial flutter; G40.909 Epilepsy, unspecified, not intractable, without status epilepticus; E11.42 Type 2 diabetes mellitus with diabetic polyneuropathy; E11.65 Type 2 diabetes mellitus with hyperglycemia; E11.22 Type 2 diabetes mellitus with diabetic chronic kidney disease; I48.0 Paroxysmal atrial fibrillation; Z79.4 Long term (current) use of insulin; F32.A Depression, unspecified; D63.1 Anemia in chronic kidney disease; G25.81 Restless legs syndrome; F17.220 Nicotine dependence, chewing tobacco, uncomplicated; K21.9 Gastro-esophageal reflux disease without esophagitis; E78.00 Pure hypercholesterolemia, unspecified; F41.9 Anxiety disorder, unspecified; Z99.2 Dependence on renal dialysis; E87.79 Other fluid overload; R13.12 Dysphagia, oropharyngeal phase; R53.81 Other malaise; Z91.158 Patient's noncompliance with renal dialysis for other reason; Z99.81 Dependence on supplemental oxygen; Z79.01 Long term (current) use of anticoagulants; Z79.899 Other long term (current) drug therapy
CPT/HCPCS: 31500; 31720; 36415; 36600; 70450; 70551; 71045; 80048; 80053; 80061; 81001; 82140; 82274; 82550; 82607; 82728; 82746; 82803; 82962; 83036; 83540; 83550; 83605; 83735; 84100; 84145; 84443; 84478; 84484; 85025; 85027; 85610; 85730; 86850; 86900; 86901; 86920; 86922; 87040; 87070; 87086; 87205; 87449; 87631; 87633; 87641; 90937; 92526; 92610; 92612; 93005; 94002; 94003; 94640; 94660; 94668; 94762; 95819; 97110; 97162; 97166; 97530; 97535; 97802; 97803; 99252; 99285; J7030; J7040; J7050; P9016; A4216; G0257; G0463; J1940; J3490; Q5106

== ENCOUNTER → 2023-12-19 | Outpatient (REF) | payer MEDICARE, MEDICAID, SELFPAY ==
[2023-12-19 10:03] LABS: Hematocrit 21.8 % (40-54); Hemoglobin 6.6 g/dL (13.0-16.5); Mean Corp Hgb Conc 30.3 g/dL (32-36); Mean Corpuscular Hgb 29.9 pg (27.0-32.0); Mean Corpuscular Volume 98.6 fL (80-94); Mean Platelet Vol. 9.7 fl (6.2-12.0); Platelet Count 147 K/mm3 (150-450); RBC Distribution Width CV 14.6 % (11.6-14.6); RBC Distribution Width SD 52.2 fl (35.1-43.9); Red Blood Count 2.21 M/mm3 (4.6-6.2); White Blood Count 6.3 K/mm3 (4.4-11.0)
== END ==
LOC: OLS.SW 05:00
PROVIDERS: PCP Family Medicine; Visit Provider Family Medicine
DX: I48.91 Unspecified atrial fibrillation (principal); J44.9 Chronic obstructive pulmonary disease, unspecified; E78.5 Hyperlipidemia, unspecified; R04.0 Epistaxis; G40.89 Other seizures; K92.2 Gastrointestinal hemorrhage, unspecified; I13.2 Hypertensive heart and chronic kidney disease with heart failure and with stage 5 chronic kidney disease, or end stage renal disease
CPT/HCPCS: 36415; 85027

== ENCOUNTER 2023-12-20 11:05 | Emergency (ER) | payer MEDICARE, MEDICAID, SELFPAY ==
[2023-12-20] VITALS (16 sets, daily range): BP systolic 89–118; BP diastolic 62–89; PULSE 97–136; RESP 16–26; TEMP 35.8–36.4; O2SAT 92–99; BMI 30.8
--- NOTE | 2023-12-20 11:20 | EX.ED.DYSGE1 ---
HPI History of Present Illness Chief Complaint: Abn Labs Detail of Chief Complaint: Hemoglobin less than 7 Informant: EMS and SNF Limited: dementia Onset/Context/Timing Onset: - (Blood work indicates hemoglobin of 6.6.) Context: Gradual Onset Timing: - (Not applicable) Quality: Unable to determine Location: Hematologic Location: Hematologic Mechanism/Context: other (Patient sent in for anemia and blood transfusion) Current Severity: Mild Maximum Severity: Mild Worsened by: Unable to determine Relieved by: Unable to determine Associated Symptoms Associated Symptoms: Endorses fatigue and shortness of breath Narrative Narrative: Patient is a 63-year-old male. He is normally oriented to person. He is normally lethargic per paperwork that accompanied him from the assisted facility. Patient limited contribution to history and physical. Patient's hemoglobin is 6.6. Patient states she has been transfused in the past. Prior similar symptoms: Yes PFSH [facility] Medical History ESRD (end stage renal disease) on dialysis Right leg weakness Weakness Epilepsy Polyneuropathy History of right MCA stroke Stroke End stage renal disease Wears glasses Wears partial dentures Insulin dependent diabetes mellitus Ambulates with cane Arthritis History of renal disease High cholesterol Restless legs Back pain Migraine headache Injury of head and neck Syncope Dietary restriction Heartburn Former smoker History of pain when walking Cardiology follow-up encounter History of echocardiogram History of stress test History of atrial fibrillation History of renal dialysis Chronic kidney disease, stage 4 (severe) TIA (transient ischemic attack) Acute and chronic respiratory failure with hypoxia CHF (congestive heart failure) Seizures HTN (hypertension) Peripheral neuropathy Home Medications ?Medication ?Instructions ?Recorded ?Last Taken ?Type apixaban 5 mg tablet (Eliquis) 5 mg PO BID #60 tabs 03/24/22 09/16/22 Rx atorvastatin 10 mg tablet 20 mg PO QHS unknon 05/20/22 Unknown History albuterol sulfate 90 mcg/actuation 2 puff inhalation Q6H PRN Wheezing 08/24/22 Unknown History aerosol inhaler (Ventolin HFA) metoprolol tartrate 25 mg tablet 25 mg PO DAILY afib 08/24/22 Unknown History amlodipine 10 mg tablet 10 mg PO DAILY #30 tabs 09/15/22 09/17/22 Rx Manual wheelchair #1 ea 03/24/23 Unknown Rx brimonidine 0.2 % eye drops 1 drp ophthalmic (eye) BID eyes 05/11/23 Unknown History divalproex 500 mg tablet,delayed 1,000 mg PO BID seizures 07/31/23 Unknown History release (Depakote) latanoprost 0.005 % eye drops 1 drp RIGHT EYE BID eyes 10/30/23 Unknown History guaifenesin 100 mg/5 mL oral liquid 200 mg (10 mL) PO Q4H PRN PRN 11/11/23 Unknown Rx Cough #0 mL nut.tx.imp.renal fxn,lac-reduc 120 ml PO 4X/DAY #0 mL 11/11/23 Unknown Rx 0.08 gram-1.8 kcal/mL oral liquid (Nepro Carb Steady) nystatin 100,000 unit/gram topical 1 applic topical BID #0 grams 11/11/23 Unknown Rx powder (Nyamyc) pantoprazole 40 mg tablet,delayed 40 mg PO BID #0 tabs 11/11/23 Unknown Rx release Allergy/AdvReac Type Severity Reaction Status Date / Time lisinopril AdvReac Severe Other Verified 12/20/23 11:12 oxycodone AdvReac Severe Other Verified 12/20/23 11:12 hydrocodone bitartrate (From AdvReac Mild HYPER Verified 12/20/23 11:12 Vicodin) Family History Father Cancer Prostate Heart disease Mother Heart disease Diabetes Other COPD (chronic obstructive pulmonary disease) Surgical History S/P arteriovenous (AV) fistula creation Hx of right cataract extraction Hx of left cataract extraction Hx of arteriovenostomy for renal dialysis History of rotator cuff surgery History of umbilical hernia repair Status post foot surgery Social History household members: spouse and children number of children: 3 current occupational status: disabled Smoking Status: Never smoker Smokeless tobacco user: snuff second hand exposure: No alcohol intake: never substance use type: does not use what type of physical activity do you participate in: other details: health point frequency: 3-4 times per week alba/druze: Other seatbelt use: always ROS ROS ED Review of Systems ROS Unobtainable: due to mental status EXAM Physical Exam Const Vital Signs: 12/20/23 11:07 12/20/23 11:07 12/20/23 12:15 Temperature 97.5 F L Temperature Source Temporal Pulse Rate 136 H 116 H Respiratory Rate 18 20 H Respiratory Effort Normal Non-Labored Respiratory Pattern Normal Blood Pressure 95/66 94/65 Blood Pressure Mean 75 74 Pulse Ox 94 93 Oxygen Delivery Method Room Air Room Air Positive well developed, cachectic and no apparent distress; Negative for oriented x3 Constitutional Narrative: Patient appears very pale. He is not awake or alert. He is lethargic, which is his baseline. General Appearance ED: well developed and cachectic Nutritional Appearance: cachectic HEENT Reports normocephalic, hearing grossly normal bilaterally, external ears normal and dry mucous membranes normocephalic, normal to inspection and atraumatic Face and Sinus: normal facial exam Nose: external nose normal and nares normal Mouth ED: Yes lips normal, Yes tongue normal, Yes dry mucous membranes, No drooling and No fetor hepaticus Mouth: lips normal, tongue normal, dry mucous membranes, No drooling and No fetor hepaticus Eyes PERRL, EOMs intact bilaterally and no scleral icterus; Negative for conjunctivae normal General Eye ED: Yes normal appearance of both eyes Alignment: alignment normal Periorbital: periorbital findings normal Eyelid: eyelids normal Conjunctiva: Negative for conjunctiva normal and conjunctiva abnormal bilateral Sclera: sclera normal Pupil: PERRL EOM: Negative for EOM abnormal Neck full ROM and no lymphadenopathy General: normal visual inspection Chest Wall inspection of chest normal and palpation of chest normal Resp normal respiratory effort, normal air movement, no retractions and no use of accessory muscles Effort and Inspection: able to speak in complete sentences Cardio regular rate, regular rhythm, S1 normal heart sound, S2 normal heart sound and no murmurs Palpation: normal PMI GI normal to inspection, nondistended, normoactive bowel sounds, soft to palpation, non-tender and non-distended; Negative for hepatosplenomegaly GI Narrative: Stool brown and not sent for Hemoccult testing. Auscultation: hypoactive bowel sounds Percussion: normal to percussion Extremity normal capillary refill and no calf tenderness; Negative for normal to inspection, no clubbing, cyanosis or edema or no pedal edema Extremity Narrative: There is no clubbing or cyanosis. There is edema. Neuro No oriented x3, CN's II-XII intact bilaterally and No moves all extremities [place] Coma Scale: document GCS findings To Voice Obeys Commands Confused 13 Sensorium / Orientation: Negative for awake or alert Speech: Negative for speech normal Gait (Neuro): Negative for normal gait Psych Psych Narrative: Difficult to determine Skin no rashes or lesions noted, skin turgor normal, no jaundice, no petechiae and no mottling Skin Narrative: Patient is very pale. There is erythema in the creases of the palm. MDM MDM MDM Narrative Medical decision making narrative: Based on exam patient hemoglobin is between 10 and 6. Since he has a 6.6 from outside facility will type and screen for 1 unit and transfuse. Most recent inpatient records reviewed. Patient had endoscopy performed by Dr. Villatoro on November 03 which revealed 2 gastric ulcers with no active bleeding. He was admitted at that time for respiratory failure. History & Record Review Additional record(s) reviewed:: Prior inpatient record, Prior ED visit and Prior labs Lab Data Attestation: I reviewed the patient's lab results. Lab results narrative: H&H is 6 and 19.4. Will transfuse 2 units of blood. Labs: Laboratory Results - last 24 hr 12/20/23 11:30 WBC 8.9 RBC 1.92 L Hgb 6.0 L* Hct 19.4 L MCV 101.0 H MCH 31.3 MCHC 30.9 L RDW Std Deviation 54.4 H RDW Coeff of Silvia 15.1 H Plt Count 123 L MPV 10.2 Differential Comment COMMENT Diff Path Review May foll Crossmatch See Detail Treatment and Re-Evaluation :: Patient will receive 2 units of blood. After blood has infused will discharge back to facility. Discharge Plan Triage Chief Complaint: Abn Labs ED Provider: Pillo Verdugo Dx/Rx/DC Orders Clinical Impression: Symptomatic anemia, Hyperlipidemia, Left hemiparesis, Signs and symptoms of anemia, Acute on chronic anemia, History of hypertension, Acute on chronic alteration in mental status Instructions: Anemia, Anemia and Kidney Disease Prescriptions: No Action albuterol sulfate [Ventolin HFA] 90 mcg/actuation HFA aerosol inhaler 2 puff inhalation Q6H PRN (Reason: Wheezing) metoprolol tartrate 25 mg tablet 25 mg PO DAILY Eliquis 5 mg tablet 5 mg PO BID Qty: 60 0RF atorvastatin 10 mg Tablet 20 mg PO QHS amlodipine 10 mg tablet 10 mg PO DAILY Qty: 30 0RF divalproex [Depakote] 500 mg tablet,delayed release (DR/EC) 1,000 mg PO BID brimonidine 0.2 % drops 1 drp ophthalmic (eye) BID Patient Comments: Instill 1 drop in the right eye 2 times a day latanoprost 0.005 % drops 1 drp RIGHT EYE BID guaifenesin 100 mg/5 mL Liquid 200 mg PO Q4H PRN PRN (Reason: Cough) Qty: 0 0RF pantoprazole 40 mg Tablet,Delayed Release (Dr/Ec) 40 mg PO BID Qty: 0 0RF nystatin [Nyamyc] 100,000 unit/gram Powder 1 applic topical BID Qty: 0 0RF Protocol: *Topical Application Instructions APPLICATION INSTRUCTIONS: groin Nepro Carb Steady 0.08 gram-1.8 kcal/mL Liquid 120 ml PO 4X/DAY Qty: 0 0RF (DME) Manual wheelchair See Rx Instructions .Route .MEDSUPPLY Qty: 1 0RF Rx Instructions: ICD 10: Polyneuropathy (G62.9); cerebral infarction (I69.30); weakness (R53.1) Primary Care Provider: Amish Han Referrals: Amish Han MD [Primary Care Provider] - Print Language: Burkinan Disposition Disposition: Home, Self Care
[2023-12-20 11:55] LABS: Hematocrit 19.4 % (40-54); Mean Corp Hgb Conc 30.9 g/dL (32-36); Mean Corpuscular Hgb 31.3 pg (27.0-32.0); Mean Platelet Vol. 10.2 fl (6.2-12.0); Platelet Count 123 K/mm3 (150-450); RBC Distribution Width CV 15.1 % (11.6-14.6); RBC Distribution Width SD 54.4 fl (35.1-43.9); Red Blood Count 1.92 M/mm3 (4.6-6.2); White Blood Count 8.9 K/mm3 (4.4-11.0)
[2023-12-20 12:04] LABS: Scan Indicated on CBC? Y/N YES- FLAGS NOTED
--- NOTE | 2023-12-20 20:48 | ED.RN ---
CALLED REPORT TO [facility] NURSE, GRACE AT THIS TIME.
[2023-12-22 10:13] LABS: Pathologist Review Reviewed
== END 2023-12-20 20:50 | disposition skilled nursing facility (03) ==
PROVIDERS: Emergency Provider Emergency Medicine; PCP Family Medicine; Visit Provider Emergency Medicine
DX: I13.2 Hypertensive heart and chronic kidney disease with heart failure and with stage 5 chronic kidney disease, or end stage renal disease (principal); N18.6 End stage renal disease; G81.94 Hemiplegia, unspecified affecting left nondominant side; I50.9 Heart failure, unspecified; F03.90 Unspecified dementia, unspecified severity, without behavioral disturbance, psychotic disturbance, mood disturbance, and anxiety; Z79.4 Long term (current) use of insulin; D63.1 Anemia in chronic kidney disease; E78.5 Hyperlipidemia, unspecified; F17.220 Nicotine dependence, chewing tobacco, uncomplicated; Z79.01 Long term (current) use of anticoagulants; Z79.899 Other long term (current) drug therapy; Z86.73 Personal history of transient ischemic attack (TIA), and cerebral infarction without residual deficits
CPT/HCPCS: 85027; 86850; 86900; 86901; 86920; 86922; 99284; J7030; P9016; A4216

== ENCOUNTER → 2023-12-20 | Outpatient (REF) | payer MEDICARE, MEDICAID, SELFPAY ==
[2023-12-20 09:37] LABS: Hematocrit 21.4 % (40-54); Hemoglobin 6.6 g/dL (13.0-16.5); Mean Corp Hgb Conc 30.8 g/dL (32-36); Mean Corpuscular Hgb 30.3 pg (27.0-32.0); Mean Corpuscular Volume 98.2 fL (80-94); Mean Platelet Vol. 9.9 fl (6.2-12.0); Platelet Count 122 K/mm3 (150-450); RBC Distribution Width CV 14.8 % (11.6-14.6); RBC Distribution Width SD 51.5 fl (35.1-43.9); Red Blood Count 2.18 M/mm3 (4.6-6.2); White Blood Count 9.4 K/mm3 (4.4-11.0)
== END ==
LOC: OLS.SW 05:35
PROVIDERS: PCP Family Medicine; Visit Provider Family Medicine
DX: D64.9 Anemia, unspecified (principal)
CPT/HCPCS: 36415; 85027

== ENCOUNTER → 2023-12-23 | Outpatient (REF) | payer MEDICARE, MEDICAID, SELFPAY ==
[2023-12-23 08:54] LABS: Hematocrit 21.6 % (40-54); Hemoglobin 6.9 g/dL (13.0-16.5); Mean Corp Hgb Conc 31.9 g/dL (32-36); Mean Corpuscular Hgb 30.1 pg (27.0-32.0); Mean Corpuscular Volume 94.3 fL (80-94); Mean Platelet Vol. 10.8 fl (6.2-12.0); POSITIVE MORPHOLOGY YES; Platelet Count 132 K/mm3 (150-450); RBC Distribution Width CV 19.6 % (11.6-14.6); Red Blood Count 2.29 M/mm3 (4.6-6.2); White Blood Count 6.7 K/mm3 (4.4-11.0)
[2023-12-23 09:09] LABS: Scan Indicated on CBC? Y/N YES- FLAGS NOTED
[2023-12-23 10:01] LABS: Differential Comment SCANNED
== END ==
LOC: OLS.SW 05:00
PROVIDERS: PCP Family Medicine; Visit Provider Internal Medicine
DX: I13.2 Hypertensive heart and chronic kidney disease with heart failure and with stage 5 chronic kidney disease, or end stage renal disease (principal); I50.33 Acute on chronic diastolic (congestive) heart failure; N18.6 End stage renal disease; E11.40 Type 2 diabetes mellitus with diabetic neuropathy, unspecified; E11.22 Type 2 diabetes mellitus with diabetic chronic kidney disease; D63.1 Anemia in chronic kidney disease
CPT/HCPCS: 85027

== ENCOUNTER → 2023-12-26 | Outpatient (REF) | payer MEDICARE, MEDICAID, SELFPAY ==
[2023-12-26 09:25] LABS: Hematocrit 26.2 % (40-54); Hemoglobin 8.2 g/dL (13.0-16.5); Mean Corp Hgb Conc 31.3 g/dL (32-36); Mean Platelet Vol. 10.5 fl (6.2-12.0); Platelet Count 152 K/mm3 (150-450); RBC Distribution Width CV 17.8 % (11.6-14.6); RBC Distribution Width SD 60.7 fl (35.1-43.9); Red Blood Count 2.73 M/mm3 (4.6-6.2); White Blood Count 5.5 K/mm3 (4.4-11.0)
== END ==
LOC: OLS.SW 09:01
PROVIDERS: PCP Family Medicine; Referring Provider Family Medicine; Visit Provider Family Medicine
DX: D64.9 Anemia, unspecified (principal)
CPT/HCPCS: 85027

== ENCOUNTER → 2023-12-28 | Outpatient (REF) | payer MEDICARE, MEDICAID, SELFPAY ==
[2023-12-28 07:18] LABS: Hematocrit 28.4 % (40-54); Hemoglobin 8.8 g/dL (13.0-16.5); Mean Corpuscular Hgb 29.7 pg (27.0-32.0); Mean Corpuscular Volume 95.9 fL (80-94); Mean Platelet Vol. 9.9 fl (6.2-12.0); Platelet Count 150 K/mm3 (150-450); RBC Distribution Width CV 17.6 % (11.6-14.6); RBC Distribution Width SD 59.8 fl (35.1-43.9); Red Blood Count 2.96 M/mm3 (4.6-6.2); White Blood Count 5.6 K/mm3 (4.4-11.0)
[2023-12-28 07:47] LABS: ALB/GLOB Ratio 0.4 RATIO (0.9-2.4); AST(SGOT) 28 U/L (15-37); Alanine Aminotransfer ALT/SGPT 48 U/L (16-61); Albumin, Serum 1.9 g/dL (3.2-5.0); Alkaline Phosphatase 134 U/L (45-117); Anion Gap 8 (5-15); BUN 36 mg/dL (7-18); BUN/Creat Ratio 7.6 RATIO (10-20); Calcium,Total 8.8 mg/dL (8.5-10.1); Chloride 94 mmol/L (98-107); Creatinine, Serum 4.72 mg/dL (0.70-1.30); EST Glomerular Filtration Rate 13 mL/min (>60); Est Glom Filt Rate - Afr Amer 16 mL/min (>60); Globulin 4.7 g/dL (2.2-4.2); Glucose 131 mg/dL (74-106); Potassium 3.3 mmol/L (3.5-5.1); Protein, Total 6.6 g/dL (6.4-8.2); Sodium Level 131 mmol/L (136-145)
== END ==
LOC: OLS.SW 05:40
PROVIDERS: PCP Family Medicine; Visit Provider Family Medicine
DX: I48.91 Unspecified atrial fibrillation (principal); N18.6 End stage renal disease; I50.9 Heart failure, unspecified; J44.9 Chronic obstructive pulmonary disease, unspecified; E78.5 Hyperlipidemia, unspecified; D62 Acute posthemorrhagic anemia; E46 Unspecified protein-calorie malnutrition
CPT/HCPCS: 36415; 80053; 85027

== ENCOUNTER → 2024-01-06 05:00 | Outpatient (REF) | payer MEDICARE, MEDICAID, SELFPAY ==
[2024-01-06 07:50] LABS: Hematocrit 23.6 % (40-54); Mean Corp Hgb Conc 29.7 g/dL (32-36); Mean Corpuscular Hgb 29.3 pg (27.0-32.0); Mean Corpuscular Volume 98.7 fL (80-94); Mean Platelet Vol. 11.5 fl (6.2-12.0); Platelet Count 123 K/mm3 (150-450); RBC Distribution Width CV 17.6 % (11.6-14.6); RBC Distribution Width SD 64.2 fl (35.1-43.9); Red Blood Count 2.39 M/mm3 (4.6-6.2); White Blood Count 5.9 K/mm3 (4.4-11.0)
== END ==
LOC: OLS.SW 05:00
PROVIDERS: PCP Family Medicine; Visit Provider Internal Medicine
DX: N18.6 End stage renal disease (principal)
CPT/HCPCS: 85027

== ENCOUNTER → 2024-01-20 05:00 | Outpatient (REF) | payer MEDICARE, MEDICAID, SELFPAY ==
[2024-01-20 08:58] LABS: Hematocrit 29.7 % (40-54); Mean Corp Hgb Conc 30.3 g/dL (32-36); Mean Corpuscular Hgb 29.5 pg (27.0-32.0); Mean Corpuscular Volume 97.4 fL (80-94); Mean Platelet Vol. 10.2 fl (6.2-12.0); POSITIVE MORPHOLOGY YES; Platelet Count 181 K/mm3 (150-450); RBC Distribution Width CV 19.4 % (11.6-14.6); RBC Distribution Width SD 67.8 fl (35.1-43.9); Red Blood Count 3.05 M/mm3 (4.6-6.2); White Blood Count 7.6 K/mm3 (4.4-11.0)
[2024-01-20 09:01] LABS: Scan Indicated on CBC? Y/N YES- FLAGS NOTED
[2024-01-20 09:32] LABS: Anion Gap 10 (5-15); BUN 37 mg/dL (7-18); BUN/Creat Ratio 8.9 RATIO (10-20); Chloride 93 mmol/L (98-107); Creatinine, Serum 4.14 mg/dL (0.70-1.30); EST Glomerular Filtration Rate 16 mL/min (>60); Est Glom Filt Rate - Afr Amer 19 mL/min (>60); Glucose 151 mg/dL (74-106); Potassium 3.4 mmol/L (3.5-5.1); Sodium Level 133 mmol/L (136-145)
[2024-01-20 09:48] LABS: BNP,B-Type NATRIURETIC PEPTIDE 1730.4 pg/mL (0-100)
== END ==
LOC: OLS.SW 05:00
PROVIDERS: PCP Family Medicine; Visit Provider Internal Medicine
DX: I48.91 Unspecified atrial fibrillation (principal); I50.9 Heart failure, unspecified; J44.9 Chronic obstructive pulmonary disease, unspecified; E78.5 Hyperlipidemia, unspecified; J96.21 Acute and chronic respiratory failure with hypoxia; N18.6 End stage renal disease; G40.89 Other seizures
CPT/HCPCS: 36415; 80048; 83880; 85027

== ENCOUNTER → 2024-01-24 | Outpatient (REF) | payer MEDICARE, MEDICAID, SELFPAY ==
[2024-01-24 09:33] LABS: Hematocrit 25.8 % (40-54); Hemoglobin 7.5 g/dL (13.0-16.5); Mean Corp Hgb Conc 29.1 g/dL (32-36); Mean Corpuscular Hgb 28.8 pg (27.0-32.0); Mean Corpuscular Volume 99.2 fL (80-94); Mean Platelet Vol. 10.1 fl (6.2-12.0); POSITIVE MORPHOLOGY YES; Platelet Count 168 K/mm3 (150-450); RBC Distribution Width CV 19.8 % (11.6-14.6); RBC Distribution Width SD 70.8 fl (35.1-43.9); White Blood Count 9.7 K/mm3 (4.4-11.0)
[2024-01-24 09:51] LABS: Scan Indicated on CBC? Y/N YES- FLAGS NOTED
[2024-01-24 10:25] LABS: ALB/GLOB Ratio 0.4 RATIO (0.9-2.4); AST(SGOT) 16 U/L (15-37); Alanine Aminotransfer ALT/SGPT 9 U/L (16-61); Albumin, Serum 1.7 g/dL (3.2-5.0); Alkaline Phosphatase 136 U/L (45-117); Anion Gap 15 (5-15); BUN 33 mg/dL (7-18); BUN/Creat Ratio 8.5 RATIO (10-20); Calcium,Total 8.7 mg/dL (8.5-10.1); Chloride 94 mmol/L (98-107); Creatinine, Serum 3.88 mg/dL (0.70-1.30); EST Glomerular Filtration Rate 17 mL/min (>60); Est Glom Filt Rate - Afr Amer 20 mL/min (>60); Globulin 4.8 g/dL (2.2-4.2); Glucose 119 mg/dL (74-106); Potassium 2.9 mmol/L (3.5-5.1); Protein, Total 6.5 g/dL (6.4-8.2); Sodium Level 134 mmol/L (136-145)
== END ==
LOC: OLS.SW 05:00
PROVIDERS: PCP Family Medicine; Visit Provider Family Medicine
DX: J96.21 Acute and chronic respiratory failure with hypoxia (principal); N18.6 End stage renal disease
CPT/HCPCS: 80053; 85027

== ENCOUNTER 2024-01-26 07:39 | Inpatient (IN) | payer MEDICARE, MEDICAID, SELFPAY ==
[2024-01-26] VITALS (35 sets, daily range): BP systolic 66–127; BP diastolic 42–94; PULSE 76–139; RESP 14–29; TEMP 35.8–36.8; O2SAT 76–100; BMI 29.2; BMI 26.4
--- NOTE | 2024-01-26 07:41 | CT_ITS ---
STUDY: CT BRAIN WITHOUT CONTRAST REASON FOR EXAM: Male, 63 years old. Altered mental status. Patient found unresponsive. RADIATION DOSAGE (If Supplied By Facility): CTDIvol = ( 44.99 ) mGy, DLP = ( 796.11 ) mGycm TECHNIQUE: Transaxial CT imaging of the brain was performed without administration of intravenous contrast material. Individualized dose optimization techniques were used for this CT. COMPARISON: Comparison is made with prior study November 03, 2023. FINDINGS: Normal soft tissue structures. Normal calvarium. There is moderate cerebral atrophy with widening of the extra-axial spaces and ventricular dilatation. There are areas of decreased attenuation within the white matter tracts of the supratentorial brain, consistent with microvascular disease changes. There are small punctate calcifications of the basal ganglia which are seen in the aging brain as a normal variant. Normal brainstem. Normal cerebellum. There is no intracranial hemorrhage. There are no findings of an acute ischemic infarction. Atherosclerotic calcific plaques of the cavernous portions of the internal carotid arteries bilaterally. Normal visualized paranasal sinuses. CT/Brain/Head without Contrast IMPRESSION: Chronic involutional changes of the brain. Electronically Signed: Michael Allen MD at 9:19 EDT ,
--- NOTE | 2024-01-26 07:46 | RAD_ITS ---
STUDY: X-RAY CHEST REASON FOR EXAM: Male, 63 years old. Altered mental status TECHNIQUE: Single AP portable view of the chest. COMPARISON: Comparison is made with prior study November 06, 2023. FINDINGS: An endotracheal tube is in situ and the tip is at the origin of the left mainstem bronchus. It should be withdrawn approximately 2.5 cm. A right-sided double-lumen catheter is seen with the tip in the right atrium. The tip of the orogastric tube is in the body of the stomach. Small right pleural effusion with the volume loss in the left lower lobe most likely secondary to the position of the endotracheal tube. Mild increased markings at the left lung base. Normal size heart. Normal mediastinum and kayla. Normal visualized pulmonary arteries. There is atherosclerotic tortuosity of the aortic arch and descending thoracic aorta. Normal visualized thoracic spine. Normal visualized ribs, clavicles, and shoulders. There is no demonstrated abnormality of the visualized soft tissue structures of the upper abdomen. RAD/Chest 1 View (Portable) IMPRESSION: The tip of the endotracheal tube is at the origin of the left mainstem bronchus. This should be withdrawn approximately 2.5 cm. Volume loss and possible atelectasis with infiltrate in the right lower lobe with small right pleural effusion. Electronically Signed: Michael Allen MD at 9:21 EDT ,
--- NOTE | 2024-01-26 07:46 | EKG12_ITS ---
Test Reason : POST ARREST/INTUB Blood Pressure : / mmHG Vent. Rate : 123 BPM Atrial Rate : 000 BPM P-R Int : 000 ms QRS Dur : 096 ms QT Int : 272 ms P-R-T Axes : 000 -09 069 degrees QTc Int : 389 ms Atrial fibrillation with rapid ventricular response Nonspecific ST and T wave abnormality Abnormal ECG Confirmed by ARTHUR MONSON, YUMIKO ([id number]), greeting card editor HANNAH BRAY ([id number]) on 01/30/2024 11:07:24 AM Referred By: JUAN Confirmed By:YUMIKO GIBSON MD
[2024-01-26] MEDS: fentaNYL drip 100 ML 2.5 MCG CONT INF (07:55)
[2024-01-26 08:05] LABS: Mucous, Urine 0 SEEN /hpf (<or=2+); Red Blood Cells-Urine 0 SEEN /hpf (0-5)
[2024-01-26 08:08] LABS: Color, Urine Amber (Yellow); Glucose, Dipstick 50 mg/dl (Normal); Ketone-Dipstick 5 mg/dl (Negative); Leukocyte Esterase-Dipstick 100 /ul (Negative); Nitrite-Dipstick Positive (Negative); Occult Blood-Urine 25 /ul (Negative); Protein-Dipstick 500 mg/dl (Negative); Urine Clarity Clear (Clear); Urine Urobilinogen Normal (Normal)
[2024-01-26 08:10] LABS: Valproic Acid (Depakene) Level 91 ug/mL (50-100)
[2024-01-26 08:14] LABS: ALB/GLOB Ratio 0.3 RATIO (0.9-2.4); AST(SGOT) 528 U/L (15-37); Alanine Aminotransfer ALT/SGPT 128 U/L (16-61); Albumin, Serum 1.7 g/dL (3.2-5.0); Alkaline Phosphatase 153 U/L (45-117); Anion Gap 15 (5-15); BUN 38 mg/dL (7-18); BUN/Creat Ratio 8.2 RATIO (10-20); Calcium,Total 8.9 mg/dL (8.5-10.1); Chloride 96 mmol/L (98-107); Creatinine, Serum 4.65 mg/dL (0.70-1.30); EST Glomerular Filtration Rate 14 mL/min (>60); Est Glom Filt Rate - Afr Amer 16 mL/min (>60); Estimated Creatinine Clearance 18.61 ml/min; Globulin 5.2 g/dL (2.2-4.2); Glucose 88 mg/dL (74-106); Potassium 3.9 mmol/L (3.5-5.1); Protein, Total 6.9 g/dL (6.4-8.2); Sodium Level 135 mmol/L (136-145); Troponin-I HS 13 pg/mL (3.0-78.0)
[2024-01-26 08:21] LABS: Absolute Neutrophil Count 9.8 X10^3/uL (2.0-7.7); Basophil# 0.08 X10^3/uL; Basophil% 0.7 % (0-1); Eosinophil# 0.01 X10^3/uL; Eosinophils% 0.1 % (0-5); Hematocrit 28.6 % (40-54); Hemoglobin 8.3 g/dL (13.0-16.5); Lymphocyte % 7.7 % (19-41); Mean Corpuscular Hgb 29.2 pg (27.0-32.0); Mean Corpuscular Volume 100.7 fL (80-94); Mean Platelet Vol. 10.6 fl (6.2-12.0); Monocyte# 0.63 X10^3/uL; Monocyte% 5.4 % (0-10); NRBC Flagged by Analyzer 0.5 % (0-5); Neutrophil # 9.76 X10^3/uL (2.7-7.7); Neutrophil % 82.9 % (47-70); POSITIVE MORPHOLOGY YES; Platelet Count 203 K/mm3 (150-450); RBC Distribution Width CV 19.7 % (11.6-14.6); RBC Distribution Width SD 72.8 fl (35.1-43.9); Red Blood Count 2.84 M/mm3 (4.6-6.2); White Blood Count 11.8 K/mm3 (4.4-11.0)
[2024-01-26 08:21] LABS: Urine Bilirubin Dipstick 3 mg/dL (Negative)
[2024-01-26 08:23] LABS: Bacteria 2+ /hpf (None Seen); White Blood Cells 0-5 SEEN /hpf (0-5)
[2024-01-26 08:25] LABS: Squamous Epithelial Cells - UA 0-5 SEEN /hpf (0-5)
--- NOTE | 2024-01-26 08:29 | EX.ED.DYSGE1 ---
HPI History of Present Illness Chief Complaint: Unresponsive Narrative Narrative: 63-year-old male presenting unresponsive from his residential. Last known well was last evening at about 7-8 per EMS. Patient was found unresponsive on the ground today at the residential where CPR was reportedly started. EMS states that when they were called out the patient had a pulse and apparently by the time they had arrived the patient had lost the pulse and reportedly had CPR for about 15 minutes. EMS reports he had a pulse on arrival. They intubated him on scene. Patient was hypoxic and altered. EMS reports that nursing staff told them the patient had not had dialysis in a couple of weeks and he was refusing this. [facility] Medical History ESRD (end stage renal disease) on dialysis Right leg weakness Weakness Epilepsy Polyneuropathy History of right MCA stroke Stroke End stage renal disease Wears glasses Wears partial dentures Insulin dependent diabetes mellitus Ambulates with cane Arthritis History of renal disease High cholesterol Restless legs Back pain Migraine headache Injury of head and neck Syncope Dietary restriction Heartburn Former smoker History of pain when walking Cardiology follow-up encounter History of echocardiogram History of stress test History of atrial fibrillation History of renal dialysis Chronic kidney disease, stage 4 (severe) TIA (transient ischemic attack) Acute and chronic respiratory failure with hypoxia CHF (congestive heart failure) Seizures HTN (hypertension) Peripheral neuropathy Home Medications ?Medication ?Instructions ?Recorded ?Last Taken ?Type albuterol sulfate 90 mcg/actuation 2 puff inhalation Q6H PRN Wheezing 08/24/22 Unknown History aerosol inhaler (Ventolin HFA) metoprolol tartrate 25 mg tablet 25 mg PO DAILY afib 08/24/22 01/25/24 History amlodipine 10 mg tablet 10 mg PO DAILY #30 tabs 09/15/22 01/25/24 Rx Manual wheelchair #1 ea 03/24/23 Unknown Rx brimonidine 0.2 % eye drops 1 drp ophthalmic (eye) BID eyes 05/11/23 01/25/24 History latanoprost 0.005 % eye drops 1 drp RIGHT EYE QHS eyes 10/30/23 01/25/24 History guaifenesin 100 mg/5 mL oral liquid 200 mg (10 mL) PO Q4H PRN PRN 11/11/23 01/19/24 Rx Cough #0 mL nystatin 100,000 unit/gram topical 1 applic topical BID #0 grams 11/11/23 01/25/24 Rx powder ([facility]) pantoprazole 40 mg tablet,delayed 40 mg PO BID #0 tabs 11/11/23 01/25/24 Rx release apixaban 2.5 mg tablet (Eliquis) 2.5 mg PO BID 01/26/24 01/25/24 History atorvastatin 20 mg tablet 20 mg PO DAILY 01/26/24 01/25/24 History calcitriol 0.25 mcg capsule 0.25 mcg PO MOWEFR 01/26/24 01/16/24 History cyclobenzaprine 7.5 mg tablet 7.5 mg PO Q8H PRN muscle spasm 01/26/24 01/15/24 History divalproex 125 mg capsule,delayed 1,000 mg PO BID 01/26/24 01/25/24 History release sprinkle midodrine 10 mg tablet 10 mg PO DAILY PRN SBP 01/26/24 Unknown History Allergy/AdvReac Type Severity Reaction Status Date / Time lisinopril AdvReac Severe Other Verified 12/20/23 11:12 oxycodone AdvReac Severe Other Verified 12/20/23 11:12 hydrocodone bitartrate (From AdvReac Mild HYPER Verified 12/20/23 11:12 Vicodin) Family History Father Cancer Prostate Heart disease Mother Heart disease Diabetes Other COPD (chronic obstructive pulmonary disease) Surgical History S/P arteriovenous (AV) fistula creation Hx of right cataract extraction Hx of left cataract extraction Hx of arteriovenostomy for renal dialysis History of rotator cuff surgery History of umbilical hernia repair Status post foot surgery Social History household members: spouse and children number of children: 3 current occupational status: disabled Smoking Status: Never smoker Smokeless tobacco user: snuff second hand exposure: No alcohol intake: never substance use type: does not use what type of physical activity do you participate in: other details: health point frequency: 3-4 times per week alba/hinduism: Other seatbelt use: always ROS ROS ED Review of Systems ROS Unobtainable: due to endotracheal tube, due to mental condition and due to mental status EXAM Physical Exam Const Vital Signs: 01/26/24 07:39 01/26/24 07:39 01/26/24 07:46 Temperature 96.5 F L Temperature Source Temporal Pulse Rate 139 H 113 H Respiratory Rate 29 H 29 H Respiratory Effort Respiratory Pattern Blood Pressure 117/94 H 117/94 H Blood Pressure Mean 101 101 Pulse Ox 76 80 Oxygen Delivery Method Ambu-Bag Ambu-Bag Ambu-Bag Fraction of Inspired Oxygen (FIO2) 01/26/24 07:50 01/26/24 07:59 01/26/24 08:09 Temperature Temperature Source Pulse Rate 127 H 112 H Respiratory Rate 16 16 Respiratory Effort Mechanically Ventilated Respiratory Pattern Normal Blood Pressure 81/59 L Blood Pressure Mean 66 Pulse Ox 90 96 Oxygen Delivery Method Mechanical Ventilator Fraction of Inspired Oxygen (FIO2) 100 01/26/24 08:30 01/26/24 09:00 01/26/24 09:30 Temperature Temperature Source Pulse Rate 123 H 114 H 78 Respiratory Rate 14 14 16 Respiratory Effort Respiratory Pattern Blood Pressure 66/42 L 88/69 L 77/60 L Blood Pressure Mean 50 75 65 Pulse Ox 98 97 95 Oxygen Delivery Method Mechanical Ventilator Mechanical Ventilator Mechanical Ventilator Fraction of Inspired Oxygen (FIO2) 01/26/24 10:00 01/26/24 10:30 01/26/24 10:49 Temperature 96.8 F L Temperature Source Pulse Rate 112 H 119 H 119 H Respiratory Rate 16 14 14 Respiratory Effort Respiratory Pattern Blood Pressure 96/67 111/79 111/79 Blood Pressure Mean 76 89 89 Pulse Ox 98 96 96 Oxygen Delivery Method Mechanical Ventilator Fraction of Inspired Oxygen (FIO2) 01/26/24 11:00 01/26/24 11:30 Temperature Temperature Source Pulse Rate 123 H 127 H Respiratory Rate 16 14 Respiratory Effort Respiratory Pattern Blood Pressure 100/71 93/68 Blood Pressure Mean 80 76 Pulse Ox 95 98 Oxygen Delivery Method Mechanical Ventilator Mechanical Ventilator Fraction of Inspired Oxygen (FIO2) Positive unkempt General Appearance ED: unkempt and pallor HEENT Reports TM's clear and dry mucous membranes Negative for trauma Tympanic Membrane ED: Yes TM's clear bilateral Mouth ED: Yes dry mucous membranes Mouth: dry mucous membranes Eyes PERRL Chest Wall inspection of chest normal Resp Auscultation: diminished lung sounds GI normal to inspection, nondistended, normoactive bowel sounds Extremity General Extremety ED: Negative for edema General Extremity: Negative for edema Neuro Sensorium / Orientation: lethargic and stuporous Psych Appearance: unkempt Skin no rashes or lesions noted General Skin Exam: pallor MDM MDM MDM Narrative Medical decision making narrative: Patient presenting with altered mental status. It is unclear what the etiology is. Patient last seen well last evening. Initial blood pressure 117/94. Patient's pressure did drop to 81/59 however review of his medical records show that he does have low blood pressures in the past in the 90s. Patient takes midodrine as needed. Patient also has recent history of blood in stool. Since the patient was found on the ground differential includes subdural hematoma, epidural hematoma, subarachnoid hemorrhage, dysrhythmia, ACS, CHF, electrolyte abnormalities. Patient also on Depakote so I will obtain a Depakote level. Sepsis workup was pursued CBC will be obtained to assess white blood cell count, hemoglobin, platelets. BMP was renal function, electrolytes, glucose. LFTs to assess liver function. High-sensitivity troponin and EKG to assess for ischemic dysrhythmia. Urinalysis to assess for UTI. Lactic acid and blood cultures as well as urine cultures will be obtained. Patient initially given a 500 cc bolus of IV fluids. I attempted to speak with his who does not speak Kiswahili very well. She stated she was going to come to the ER and talk. I spoke with his sister on the phone regarding what his wishes were as far as intubation and intensive procedures as he was pretty ill. She states she was not clear but did not believe he would want something aggressive because has been in and out of the hospital. It is unclear whether he actually has missed dialysis. Patient's sister will speak to his regarding his care and return my phone call. I also added an occult stool given his recent GI bleed. 8:35 AM nursing staff was able to speak with the patient's residential. Apparently the patient is noncompliant with his fluids and has a history of chronic CHF in addition to this he did 45 minutes of dialysis on Tuesday and refused dialysis otherwise. Apparently at 630 nursing staff stated he was fine this morning but about 645 he seemed a little sluggish. Discussed with the daughter again who stated that after she talk to her whole family they believe that he would not want any aggressive procedures or intubation because he had expressed that to him. The is stating that she does not believe that he would want to be DNR. The sister and her family expressed some concern that the [place] and [place] not been here long enough to be a citizen and was concerned about her making decisions for her . We did speak to Max Fatima who is going to fax over paperwork, but they believe that she would be the medical power of estate attorney. CBC shows white blood cell count of 11.8. Hemoglobin 8.3. Platelets are 203. Creatinine 4.65. Electrolytes are unremarkable. Lactic acid returned at 4.9. Bilirubin 1.10, AST 528, ALT 128. Patient was given vancomycin and Zosyn after cultures were drawn. Urinalysis consistent with UTI. At approximately 1015 the patient opened his eyes and was able to nod yes and no to questions. He did not recall what happened this morning. His vital signs are stabilized. He does have Hemoccult positive stool and there is noted to be blood in his OG. I placed him on a Protonix drip. Interpretation of the chest x-ray it does appear that he might have a right lobe infiltrate as well as pleural effusion, interpretation. The ET tube did need to be pulled back and was adjusted. CT brain was negative for any acute intracranial findings. Valproic acid was normal. Discussed with hospitalist for admission. Impression: 1. Upper GI bleed 2. Hypoxic respiratory failure 3. End-stage renal disease on dialysis 4. Lactic acidosis 5. Delirium 6. UTI 7. Pneumonia. 8. Transaminitis Lab Data Attestation: I reviewed the patient's lab results. Labs: Laboratory Results - last 24 hr 01/26/24 01/26/24 01/26/24 07:45 08:00 08:05 WBC 11.8 H RBC 2.84 L Hgb 8.3 L Hct 28.6 L MCV 100.7 H MCH 29.2 MCHC 29.0 L RDW Std Deviation 72.8 H RDW Coeff of Silvia 19.7 H Plt Count 203 MPV 10.6 Immature Gran % (Auto) 3.200 H Neut % (Auto) 82.9 H Lymph % (Auto) 7.7 L [place] % (Auto) 5.4 Eos % (Auto) 0.1 Baso % (Auto) 0.7 Absolute Neuts (auto) 9.8 H Absolute Lymphs (auto) 0.90 Nucleated RBC % 0.5 Anisocytosis 2+ PT 33.8 H INR 3.4 APTT 40.9 H Sodium 135 L Potassium 3.9 Chloride 96 L Carbon Dioxide 24.0 Anion Gap 15 BUN 38 H Creatinine 4.65 H Estim Creat Clear Calc 18.61 Est GFR (MDRD) Af Amer 16 L Est GFR (MDRD) Non-Af 14 L BUN/Creatinine Ratio 8.2 L Glucose 88 Lactic Acid 4.9 H* Calcium 8.9 Total Bilirubin 1.10 H AST 528 H ALT 128 H Alkaline Phosphatase 153 H Total Creatine Kinase 45 Troponin I High Sens 13 Total Protein 6.9 Albumin 1.7 L Globulin 5.2 H Albumin/Globulin Ratio 0.3 L Urine Color Heike Urine Clarity Clear Urine pH 6.0 Ur Specific [place] 1.020 Urine Protein 500 H Urine Glucose (UA) 50 H Urine Ketones 5 H Urine Occult Blood 25 H Urine Nitrite Positive H Urine Bilirubin 3 H Urine Urobilinogen Normal Ur Leukocyte Esterase 100 H Urine RBC 0 SEEN Urine WBC 0-5 SEEN Ur Squamous Epith Cells 0-5 SEEN Urine Bacteria 2+ Urine Mucus 0 SEEN Valproic Acid 91 ABG Data ABG results: ABG 01/26/24 09:10 Specimen Type ART Sample Site L Radial pH 7.38 Bicarbonate Actual 25.1 Total CO2 27 Base Excess 0 O2 Saturation 95 O2 % 100.0 ABG pCO2 43.0 ABG pO2 77 Richi Test Positive Respiration Rate 400 O2 Delivery Device Adult Vent Vent Mode AC Tidal Volume 14.0 POC PEEP 5 Radiography Diagnostic Testing: Clinical Impression(s) from Imaging Studies Brain CT 01/26/24 07:41 IMPRESSION: Chronic involutional changes of the brain. Electronically Signed: Michael Allen MD at 9:19 EDT , Chest X-Ray 01/26/24 07:46 IMPRESSION: The tip of the endotracheal tube is at the origin of the left mainstem bronchus. This should be withdrawn approximately 2.5 cm. Volume loss and possible atelectasis with infiltrate in the right lower lobe with small right pleural effusion. Electronically Signed: Michael Allen MD at 9:21 EDT , Critical Care Time Critical care time (excluding procedures): 30-74 minutes (50), Including time spent:, Discussing w/Patient &/or Family/Machine Paint Mixer, Discussing w/Consultants, Arranging Admission or Transfer and Performing Direct Patient Care at Bedside Discharge Plan Triage Chief Complaint: Unresponsive ED Provider: Otto Boo Dx/Rx/DC Orders Prescriptions: No Action albuterol sulfate [Ventolin HFA] 90 mcg/actuation HFA aerosol inhaler 2 puff inhalation Q6H PRN (Reason: Wheezing) metoprolol tartrate 25 mg tablet 25 mg PO DAILY amlodipine 10 mg tablet 10 mg PO DAILY Qty: 30 0RF brimonidine 0.2 % drops 1 drp ophthalmic (eye) BID Patient Comments: Instill 1 drop in the right eye 2 times a day latanoprost 0.005 % drops 1 drp RIGHT EYE QHS guaifenesin 100 mg/5 mL Liquid 200 mg PO Q4H PRN PRN (Reason: Cough) Qty: 0 0RF pantoprazole 40 mg Tablet,Delayed Release (Dr/Ec) 40 mg PO BID Qty: 0 0RF nystatin [Nyamyc] 100,000 unit/gram Powder 1 applic topical BID Qty: 0 0RF Protocol: *Topical Application Instructions APPLICATION INSTRUCTIONS: groin atorvastatin 20 mg tablet 20 mg PO DAILY divalproex 125 mg capsule, delayed rel sprinkle 1,000 mg PO BID midodrine 10 mg tablet 10 mg PO DAILY PRN (Reason: SBP) Eliquis 2.5 mg tablet 2.5 mg PO BID calcitriol 0.25 mcg capsule 0.25 mcg PO MOWEFR cyclobenzaprine 7.5 mg tablet 7.5 mg PO Q8H PRN (Reason: muscle spasm) (DME) Manual wheelchair See Rx Instructions .Route .MEDSUPPLY Qty: 1 0RF Rx Instructions: ICD 10: Polyneuropathy (G62.9); cerebral infarction (I69.30); weakness (R53.1) Primary Care Provider: Amish Han Referrals: Amish Han MD [Primary Care Provider] - Print Language: Kiswahili
--- NOTE | 2024-01-26 08:29 | ED.RN ---
multiple attempts to contact [facility] for report, report had not been called
[2024-01-26 08:35] LABS: International Normalized Ratio 3.4; Prothrombin Time (Protime)PT. 33.8 SECONDS (11.7-14.9)
[2024-01-26 08:36] LABS: Partial Thromboplast Time 40.9 Seconds (24.1-36.2)
--- NOTE | 2024-01-26 08:36 | ED.RN ---
spoke with director of nuring, she gave report
[2024-01-26 08:51] LABS: CPK Total, Creatine Kinase 45 U/L (39-308)
[2024-01-26 08:53] LABS: Lactic Acid 4.9 mmol/L (0.4-1.9)
[2024-01-26 09:15] LABS: Allen Test Positive; Base Excess 0 mmol/L (-2 to +2); Bicarbonate 25.1 mmol/L (22-26); Blood Gas Specimen Type ART; Mode AC; O2 Delivery Device Adult Vent; PEEP 5; PO2 77 mmHG (75-100); RR 400; SITE L Radial; SO2 95 % (95-99); Total Carbon Dioxide 27 mmol/L; pH 7.38 (7.35-7.45)
[2024-01-26] MEDS: Piperacil/Tazobactam 3.375 GM in 0.9% Normal Saline (50mL MB+) 50 ML IV ×2 (09:15→21:57)
[2024-01-26 09:18] LABS: Anisocytosis 2+
[2024-01-26] MEDS: Vancomycin HCl 1,500 MG in 0.9% Normal Saline (500mL Bag) 500 ML 250 MG IV (09:58)
--- NOTE | 2024-01-26 09:59 | CPS ---
intubated by squad 7.5 tube
[2024-01-26] MEDS: Pantoprazole Sodium 80 MG in 0.9% Normal Saline (50mL Bag) 15 ML 420 MG IV BOLUS (11:13)
[2024-01-26 12:12] LABS: Reflex Lactate? Y
--- NOTE | 2024-01-26 12:40 | CT_ITS ---
STUDY: CT CERVICAL SPINE WITHOUT CONTRAST REASON FOR EXAM: Male, 63 years old. Neck pain RADIATION DOSAGE (If Supplied By Facility): CTDIvol = ( 23.99 ) mGy, DLP = ( 486.73 ) mGycm TECHNIQUE: High resolution transaxial imaging was performed without contrast material. Sagittal and coronal images were reconstructed. Individualized dose optimization techniques were used for this CT. COMPARISON: None FINDINGS: An orogastric tube is seen within the esophagus. An endotracheal tube is seen within the trachea. Normal craniovertebral junction. Normal anterior atlantoaxial articulation. Normal odontoid process. There is straightening of the normal cervical lordosis. Normal vertebral bodies and posterior osseous elements. C2-3: Normal endplates. Normal disc height and morphology. Normal central canal and intervertebral neuroforamina. C3-4: Normal endplates. Normal disc height and morphology. Normal central canal and intervertebral neuroforamina. C4-5: Normal endplates. Normal disc height and morphology. Normal central canal and intervertebral neuroforamina. C5-6: Moderate degree of disc space narrowing and spondylosis at the C5-C6 level. Uncovertebral arthrosis. Mild degree of bilateral neural foraminal stenosis. C6-7: Normal endplates. Normal disc height and morphology. Normal central canal and intervertebral neuroforamina. C7-T1: Normal endplates. Normal disc height and morphology. Normal central canal and intervertebral neuroforamina. Atherosclerotic calcification of the carotid bifurcations bilaterally. CT/Spine Cervical without Contras IMPRESSION: Multilevel degenerative changes, as described above. Electronically Signed: Michael Allen MD at 13:17 EDT ,
--- NOTE | 2024-01-26 12:55 | PCM.HP.STD ---
HPI - General General Date of Admission: 01/26/24 Date of Service: 01/26/24 HPI Narrative JAMES RICO, is a 63 M who presented to the emergency department at [facility] on 01/26/2024 after being found down at a local [facility] ([facility]) at which she resides. Downtime is unknown. CPR was initiated as there was no pulse palpated at the time of initial evaluation. He was last known well last evening about 7 or 8 PM. EMS was called when he was found down and by the time the squad arrived he had a pulse. It was reported that he received CPR for about 15 minutes. He was intubated on the scene and was noted to be hypoxic with altered mental status. He is on dialysis at baseline but has not received full dialysis in some time as he will start dialysis and then asked to be taken off prior to the end of his session. He is also been refusing therapy services. Per the ER physician his family reports that he has had conversations with them in the past that he did not want any of this done however his who has POA paperwork in addition to being his spouse indicates that he does not still want to live and wanted us to proceed with full measures for resuscitation and management. Patient has multiple chronic medical comorbidities. Vital signs on presentation show a temperature of 96.8, heart rate 127, blood pressure 81/59, respiratory rate 16 and oxygen saturations were 90% on Ambu bag at 100%. CBC showed a mild leukocytosis with a white count of 11.8, hemoglobin of 8.3 which is better than his baseline has been recently and normal platelets. He did have a left shift with an 82.9% neutrophilia. Coags are elevated as expected being on Eliquis. His ABG showed a pH of 7.38/pO2 of 77 on 100% FiO2/pCO2 of 43. Chemistry panel showed a sodium of 135, chloride of 96, BUN was 38 with a serum creatinine of 4.65 which appears to be close to what he runs at baseline. Glucose was 88. Lactic acid was 4.9. His bilirubin was mildly elevated at 1.1 and his AST and ALT were markedly elevated at 528 and 128 respectively. Alk phos was slightly up at 153 this is consistent with his baseline. CPK was 45. His UA shows nitrites and leuk esterase but no white cells. It does show 2+ bacteria. Valproic acid was measured as he is on Depakote at baseline and it was 91. Ammonia level was added on and pending. CT of the brain showed chronic emotional changes. Chest x-ray shows bilateral pleural effusions right greater than left, ET tube in place. I did request a CT of the cervical spine to clear his spine as he was found down and this is pending at the time of admission. [facility] Medical History Anemia ESRD (end stage renal disease) on dialysis Right leg weakness Weakness Epilepsy Polyneuropathy History of right MCA stroke Stroke End stage renal disease Wears glasses Wears partial dentures Insulin dependent diabetes mellitus Ambulates with cane Arthritis History of renal disease High cholesterol Restless legs Back pain Migraine headache Injury of head and neck Syncope Dietary restriction Heartburn Former smoker History of pain when walking Cardiology follow-up encounter History of echocardiogram History of stress test History of atrial fibrillation History of renal dialysis Chronic kidney disease, stage 4 (severe) TIA (transient ischemic attack) Acute and chronic respiratory failure with hypoxia CHF (congestive heart failure) Seizures HTN (hypertension) Peripheral neuropathy Home Medications ?Medication ?Instructions ?Recorded ?Last Taken ?Type albuterol sulfate 90 mcg/actuation 2 puff inhalation Q6H PRN Wheezing 08/24/22 Unknown History aerosol inhaler (Ventolin HFA) metoprolol tartrate 25 mg tablet 25 mg PO DAILY afib 08/24/22 01/25/24 History amlodipine 10 mg tablet 10 mg PO DAILY #30 tabs 09/15/22 01/25/24 Rx Manual wheelchair #1 ea 03/24/23 Unknown Rx brimonidine 0.2 % eye drops 1 drp ophthalmic (eye) BID eyes 05/11/23 01/25/24 History latanoprost 0.005 % eye drops 1 drp RIGHT EYE QHS eyes 10/30/23 01/25/24 History guaifenesin 100 mg/5 mL oral liquid 200 mg (10 mL) PO Q4H PRN PRN 11/11/23 01/19/24 Rx Cough #0 mL nystatin 100,000 unit/gram topical 1 applic topical BID #0 grams 11/11/23 01/25/24 Rx powder (Nyamyc) pantoprazole 40 mg tablet,delayed 40 mg PO BID #0 tabs 11/11/23 01/25/24 Rx release apixaban 2.5 mg tablet (Eliquis) 2.5 mg PO BID 01/26/24 01/25/24 History atorvastatin 20 mg tablet 20 mg PO DAILY 01/26/24 01/25/24 History calcitriol 0.25 mcg capsule 0.25 mcg PO MOWEFR 01/26/24 01/16/24 History cyclobenzaprine 7.5 mg tablet 7.5 mg PO Q8H PRN muscle spasm 01/26/24 01/15/24 History divalproex 125 mg capsule,delayed 1,000 mg PO BID 01/26/24 01/25/24 History release sprinkle midodrine 10 mg tablet 10 mg PO DAILY PRN SBP 01/26/24 Unknown History Allergy/AdvReac Type Severity Reaction Status Date / Time lisinopril AdvReac Severe Other Verified 12/20/23 11:12 oxycodone AdvReac Severe Other Verified 12/20/23 11:12 hydrocodone bitartrate (From AdvReac Mild HYPER Verified 12/20/23 11:12 Vicodin) Family History Father Cancer Prostate Heart disease Mother Heart disease Diabetes Other COPD (chronic obstructive pulmonary disease) Surgical History S/P arteriovenous (AV) fistula creation Hx of right cataract extraction Hx of left cataract extraction Hx of arteriovenostomy for renal dialysis History of rotator cuff surgery History of umbilical hernia repair Status post foot surgery Social History housing: [facility] number of children: 3 current occupational status: disabled Smoking Status: Never smoker Smokeless tobacco user: snuff second hand exposure: No alcohol intake: never substance use type: does not use what type of physical activity do you participate in: other details: health point frequency: 3-4 times per week alba/synagogue: Other seatbelt use: always ROS Review of Systems ROS Unobtainable: due to endotracheal tube Vital Signs Vital Signs Vital Signs: 01/26/24 07:39 01/26/24 07:39 01/26/24 07:46 Temperature 96.5 F L Temperature Source Temporal Pulse Rate 139 H 113 H Respiratory Rate 29 H 29 H Respiratory Effort Respiratory Pattern Blood Pressure 117/94 H 117/94 H Blood Pressure Mean 101 101 Pulse Ox 76 80 Oxygen Delivery Method Ambu-Bag Ambu-Bag Ambu-Bag Fraction of Inspired Oxygen (FIO2) 01/26/24 07:50 01/26/24 07:59 01/26/24 08:09 Temperature Temperature Source Pulse Rate 127 H 112 H Respiratory Rate 16 16 Respiratory Effort Mechanically Ventilated Respiratory Pattern Normal Blood Pressure 81/59 L Blood Pressure Mean 66 Pulse Ox 90 96 Oxygen Delivery Method Mechanical Ventilator Fraction of Inspired Oxygen (FIO2) 100 01/26/24 08:30 01/26/24 09:00 01/26/24 09:30 Temperature Temperature Source Pulse Rate 123 H 114 H 78 Respiratory Rate 14 14 16 Respiratory Effort Respiratory Pattern Blood Pressure 66/42 L 88/69 L 77/60 L Blood Pressure Mean 50 75 65 Pulse Ox 98 97 95 Oxygen Delivery Method Mechanical Ventilator Mechanical Ventilator Mechanical Ventilator Fraction of Inspired Oxygen (FIO2) 01/26/24 10:00 01/26/24 10:30 01/26/24 10:49 Temperature 96.8 F L Temperature Source Pulse Rate 112 H 119 H 119 H Respiratory Rate 16 14 14 Respiratory Effort Respiratory Pattern Blood Pressure 96/67 111/79 111/79 Blood Pressure Mean 76 89 89 Pulse Ox 98 96 96 Oxygen Delivery Method Mechanical Ventilator Fraction of Inspired Oxygen (FIO2) 01/26/24 11:00 01/26/24 11:30 01/26/24 12:00 Temperature Temperature Source Pulse Rate 123 H 127 H 136 H Respiratory Rate 16 14 14 Respiratory Effort Respiratory Pattern Blood Pressure 100/71 93/68 114/85 H Blood Pressure Mean 80 76 94 Pulse Ox 95 98 100 Oxygen Delivery Method Mechanical Ventilator Mechanical Ventilator Mechanical Ventilator Fraction of Inspired Oxygen (FIO2) Weight Weight: 92.8 kg Body Mass Index (BMI) 29.2 Physical Exam Const alert, no apparent distress, average body habitus and well nourished; Negative for healthy appearing Constitutional Narrative: Middle-aged, white male, lying in bed on a ventilator, family at bedside, patient is alert and able to follow commands fairly consistently, currently appears comfortable, does not appear toxic General Appearance: cooperative HEENT normocephalic, head/scalp atraumatic and moist oral mucous membranes HEENT Narrative: OG and ET tube in place Eyes PERRL and EOMs intact bilaterally; Negative for conjunctivae normal Eyes Narrative: Mild conjunctival pallor bilaterally, no scleral icterus Neck no lymphadenopathy and supple Neck Narrative: Trachea midline, no thyroid enlargement Resp No normal respiratory effort, no retractions, no use of accessory muscles and No clear to auscultation bilaterally Resp Narrative: Bilateral crackles noted at bases greater than apices right base greater than left base Auscultation: crackles; Negative for rhonchi or wheezes Cardio S1 normal heart sound, S2 normal heart sound, no murmurs, no rub, no gallops and no clicks Cardio Narrative: Irregularly irregular rhythm with tachycardia GI normal to inspection, nondistended, normoactive bowel sounds, soft to palpation and non-tender Extremity Extremity Narrative: Doughy pitting edema up to his hips bilaterally, no cyanosis or clubbing, pedal and radial pulses were 2+ bilaterally, no significant ecchymosis or abrasion noted Skin no jaundice, no petechiae and no mottling Skin Narrative: Skin is pale but no significant lesions noted Neuro moves all extremities Neuro Narrative: Follows commands consistently and able to move all extremities with no obvious focal deficits at this time Sensorium / Orientation: awake and alert Speech: Negative for speech normal Psych Psych Narrative: Difficult to assess as patient is intubated Results Lab / Micro Data 01/26/24 14:00 01/26/24 07:45 Labs: Laboratory Results - last 24 hr 01/26/24 07:45: Sodium 135 L, Potassium 3.9, Chloride 96 L, Carbon Dioxide 24.0, Anion Gap 15, BUN 38 H, Creatinine 4.65 H, Estim Creat Clear Calc 18.61, Est GFR (MDRD) Af Amer 16 L, Est GFR (MDRD) Non-Af 14 L, BUN/Creatinine Ratio 8.2 L, Glucose 88, Calcium 8.9, Total Bilirubin 1.10 H, AST 528 H, ALT 128 H, Alkaline Phosphatase 153 H, Total Creatine Kinase 45, Troponin I High Sens 13, Total Protein 6.9, Albumin 1.7 L, Globulin 5.2 H, Albumin/Globulin Ratio 0.3 L, Valproic Acid 91 01/26/24 08:00: Urine Color Heike, Urine Clarity Clear, Urine pH 6.0, Ur Specific [place] 1.020, Urine Protein 500 H, Urine Glucose (UA) 50 H, Urine Ketones 5 H, Urine Occult Blood 25 H, Urine Nitrite Positive H, Urine Bilirubin 3 H, Urine Urobilinogen Normal, Ur Leukocyte Esterase 100 H, Urine RBC 0 SEEN, Urine WBC 0-5 SEEN, Ur Squamous Epith Cells 0-5 SEEN, Urine Bacteria 2+, Urine Mucus 0 SEEN 01/26/24 08:05: WBC 11.8 H, RBC 2.84 L, Hgb 8.3 L, Hct 28.6 L, MCV 100.7 H, MCH 29.2, MCHC 29.0 L, RDW Std Deviation 72.8 H, RDW Coeff of Silvia 19.7 H, Plt Count 203, MPV 10.6, Immature Gran % (Auto) 3.200 H, Neut % (Auto) 82.9 H, Lymph % (Auto) 7.7 L, Spink % (Auto) 5.4, Eos % (Auto) 0.1, Baso % (Auto) 0.7, Absolute Neuts (auto) 9.8 H, Absolute Lymphs (auto) 0.90, Nucleated RBC % 0.5, Anisocytosis 2+, PT 33.8 H, INR 3.4, APTT 40.9 H, Lactic Acid 4.9 H* Micro: Microbiology 01/26/24 08:24 Stool Stool Occult Blood (EMILY) - Final Occult Blood Positive ABG Data ABG results: ABG 01/26/24 09:10 Specimen Type ART Sample Site L Radial pH 7.38 Bicarbonate Actual 25.1 Total CO2 27 Base Excess 0 O2 Saturation 95 O2 % 100.0 ABG pCO2 43.0 ABG pO2 77 Richi Test Positive Respiration Rate 400 O2 Delivery Device Adult Vent Vent Mode AC Tidal Volume 14.0 POC PEEP 5 Imaging Radiology Impression Brain CT 01/26/24 07:41 IMPRESSION: Chronic involutional changes of the brain. Electronically Signed: Michael Allen MD at 9:19 EDT , Chest X-Ray 01/26/24 07:46 IMPRESSION: The tip of the endotracheal tube is at the origin of the left mainstem bronchus. This should be withdrawn approximately 2.5 cm. Volume loss and possible atelectasis with infiltrate in the right lower lobe with small right pleural effusion. Electronically Signed: Michael Allen MD at 9:21 EDT , Assessment & Plan Assessment/Plan (1) Cardiopulmonary arrest: (2) Acute hypoxic respiratory failure: (3) Bilateral pleural effusion: (4) Medical non-compliance: (5) Transaminitis: (6) GI bleed: (7) Leukocytosis: (8) Hypotension: (9) Lactic acidosis: PLAN: Plan Cardiopulmonary arrest -etiology is unclear -Per report was pulseless at the [facility] however no documentation of rhythm and ROSC was achieved prior to EMS arrival -Cardiac enzyme was normal on arrival -Check echocardiogram -Patient is alert and inconsistently following commands at this time -C-spine was cleared with CT of the neck and c-collar removed Acute on chronic hypoxic respiratory failure secondary to volume overload secondary to acute HFpEF/+/- pneumonia -Appears that he is on 2 L at baseline based on previous documentation from last admission -Currently on a ventilator at 100% -Obvious hypoxia with marked a gradient noted on ABG -Initial pH was 7.38 but pCO2 was 77 on 100% FiO2 -Chest x-ray shows bilateral pleural effusions right appears to be greater than left and this would be consistent with incomplete dialysis -Dialysis per nephrology -Will fluid restrict is much as possible -Check sputum culture -check blood cultures -Start empiric antibiotics with vancomycin and Zosyn -Check MRSA PCR Lactic acidosis -Likely multifactorial with renal dysfunction, CPA?, Hypoxia -Resolving on repeat -No need to recheck History of dysphagia -Will need speech therapy consultation after discharge Chronic anemia -hemoglobin stable and actually bit higher than he had been trending recently -has history of recent GI bleed -Guaiac was positive however in light of hemoglobin stability will cycle hemoglobin and monitor closely Positive guaiac stool -EGD was performed on 11/04/2023 at which time patient was found to have a normal esophagus, oozing gastric ulcers that were injected, treated with heater probe, and clipped and no gross lesions in the duodenum -Guaiac was positive in the emergency department however hemoglobin is currently stable -Will cycle hemoglobin every 6 hours and if hemoglobin drops will consult GI -Protonix IV twice daily for now -Has been on Protonix 40 mg p.o. twice daily as an outpatient -If remains stable could probably transition back to 40 mg daily as he has been treated for 8 weeks -Hold Eliquis for now and restart in 48 hours if hemoglobin remained stable no signs of bleeding Hypotension -Present on presentation the emergency department but has subsequently resolved Transaminitis -likely related to the above -will trend -coags are abnormal however patient is on Eliquis at baseline for his history of A-fib -Will perform further workup if enzymes do not improve with time -Will continue atorvastatin for now but if marked increase will hold Bilateral pleural effusions -right appears greater than left -Will try to see if we can perform full dialysis sessions to pull fluid and if does not improve may need thoracentesis -highly suspect transudative based on data currently available End-stage renal disease on dialysis -Patient has been noncompliant receiving incomplete sessions of dialysis -No need for urgent or emergent dialysis at this time -Continue home calcitriol -Consult nephrology for dialysis Hypertension -hold amlodipine -continue metoprolol with parameters for blood pressure and heart rate Paroxysmal atrial fibrillation with RVR -currently in A-fib -Give IV metoprolol 5 mg x 1 dose -Restart home metoprolol -Eliquis is on hold due to guaiac positive stool -If hemoglobin stable over the next 48 hours we will reinitiate Hyperlipidemia -Okay to continue atorvastatin for now -If transaminases markedly worsen will hold History of gastric ulcers/GERD -See above -IV Protonix twice daily Seizure disorder -Continue valproic acid -Level is therapeutic -Ammonia levels within normal limits Acute on chronic heart failure with preserved ejection fraction/pulmonary hypertension/diastolic dysfunction -Echocardiogram done on 08/02/2023 showed an EF of 60% with stage III diastolic dysfunction and mild concentric LVH with moderate pulmonary hypertension showing pulmonary pressures at 65 mmHg -Manage volume status with dialysis -Psych Rn consulted FEN patient does not appear to make much urine Carotid artery stenosis -Dopplers done in 07/2023 show right internal carotid artery with 50 to 69% stenosis/left internal carotid artery with 50 to 69% stenosis and patent antegrade vertebral arteries with slight progression since 2021 -Continue aggressive management of secondary risk factors as able History of stroke -Probably cardioembolic with history -Eliquis needs to be on hold due to guaiac positive stools and history of gastric ulcer -Will restart Eliquis in the next 48 hours if hemoglobin stable -Continue to control secondary risk factors -Baseline deficits are left-sided hemiparesis DM-2 -A1c was 5.0 in October however patient was anemic at that time -Fasting blood sugar on admission was 88 -will follow fasting sugars and start SSI/Accu-Cheks if consistently greater than 140 -Patient is currently n.p.o. Anxiety/depression -patient is on no current regimen for treatment DVT prophylaxis SCDs for now Open will restart Eliquis if hemoglobin remained stable but chemoprophylaxis on hold in light of positive guaiac stool CODE STATUS -Full code verified by the nursing facility at which she is residing Charges/Coding Visit Charges Inpatient E&M: 47372 Init Hosp L3
--- NOTE | 2024-01-26 13:07 | EX.PCM.CONCC ---
Assessment & Plan Assessment/Plan (1) Acute hypoxic respiratory failure: PLAN: Plan RECOMMENDATIONS: 1. Continue assist-control mode mechanical ventilation. Wean FiO2 and PEEP to maintain saturations at or above 90%. 2. Empiric antibiotics, pending culture results. 3. Continue fentanyl for sedation. 4. Continue PPI therapy. 5. Nephrology consultation for hemodialysis needs. 6. Plan to perform spontaneous breathing trial in consideration for extubation in the morning. IMPRESSIONS: 1. Acute on chronic hypoxemic respiratory failure in the setting of cardiopulmonary arrest The patient has a known history of chronic hypoxemic respiratory failure with a baseline oxygen requirement of 2 L/min. The patient was found down at his nursing facility pulseless and subsequently received CPR, with eventual ROSC. I do suspect that his current respiratory status is likely the consequence of hypervolemia, which likely developed secondary to recent incomplete dialysis sessions. The patient was started empirically on antibiotics, will which will be continued, pending finalized culture results. The patient will be maintained on assist-control mode mechanical ventilation, with a goal to wean FiO2 to maintain saturations at or above 90%. Will plan to begin spontaneous awakening and breathing trials beginning tomorrow. 2. End-stage renal disease on hemodialysis Nephrology consultation to assist with hemodialysis needs. 3. History of anemia/hypertension/paroxysmal atrial fibrillation with RVR/history of gastric ulcers/unspecified seizure disorder/HFpEF/diabetes mellitus Complicates care, management, recovery and prognosis. Continue sliding scale insulin coverage for now. Anticipate improvement in volume status with dialysis. Agree with holding Eliquis for now given guaiac positive stools. Continue to monitor blood counts and transfuse if hemoglobin drops below 7 g/dL. TIME: 35 minutes of critical care time, independent of procedures, was spent addressing the patient's acute on chronic hypoxemic respiratory failure, status postcardiopulmonary arrest, end-stage renal disease on hemodialysis, review of all data and collaboration with the care team. HPI Consult Data Date of Consult: 01/27/24 HPI Narrative Reason for Consultation: Respiratory failure following cardiac arrest HPI Narrative: The patient is a 63-year-old male, with a history as outlined below, who presented to the emergency department via EMS on the morning of January 25 after being found down unresponsive at [facility]. Apparently, the patient was felt to be pulseless and CPR was initiated by nursing facility staff, until EMS took over care. According to documentation, the patient received approximately 15 minutes of CPR and was noted to have a pulse upon EMS arrival. The patient was intubated on the scene and transferred to the emergency department for further evaluation. The patient was recently hospitalized in November 2023 with acute on chronic respiratory failure, which is felt to be multifactorial in etiology and related to a human metapneumovirus infection, possible superimposed bacterial pneumonia and missed HD sessions. The patient also had a GI bleed, which required EGD and intervention. His medical history is also significant for end-stage renal disease on hemodialysis, paroxysmal atrial fibrillation/flutter, diabetes mellitus, history of CVA, hypertension and hyperlipidemia. On presentation to the emergency department, the patient was noted to be afebrile, but was documented to be tachycardic with borderline blood pressures. Initial laboratory evaluation revealed a white blood cell count of 12,000. Hemoglobin was noted to be 8.3 g/dL. INR was noted to be 3.4. Chemistry profile was notable for a creatinine of 4.65 with a lactate of 4.9. Total bilirubin was elevated at 1.1 with an AST of 528, ALT of 128 and alkaline phosphatase of 153. Urine analysis was positive for nitrites, leukocyte esterase and 2+ urine bacteria. ABG obtained on the ventilator demonstrated a pH of 7.38 with a pCO2 of [address] pO2 of 77. CT head revealed chronic involutional changes of the brain. Chest imaging demonstrated the endotracheal tube in the left mainstem along with an infiltrate in the right lower lobe. The patient was placed on fentanyl for sedation and was started on broad-spectrum antimicrobials. Cultures were collected. The patient was subsequently admitted to the medical intensive care unit for further management. [facility] Medical History (Updated 01/26/24 @ 16:[address] Andie Weiss MD) ESRD (end stage renal disease) on dialysis Anemia Right leg weakness Weakness Epilepsy Polyneuropathy History of right MCA stroke Stroke End stage renal disease Wears glasses Wears partial dentures Insulin dependent diabetes mellitus Ambulates with cane Arthritis History of renal disease High cholesterol Restless legs Back pain Migraine headache Injury of head and neck Syncope Dietary restriction Heartburn Former smoker History of pain when walking Cardiology follow-up encounter History of echocardiogram History of stress test History of atrial fibrillation History of renal dialysis Chronic kidney disease, stage 4 (severe) TIA (transient ischemic attack) Acute and chronic respiratory failure with hypoxia CHF (congestive heart failure) Seizures HTN (hypertension) Peripheral neuropathy Home Medications ?Medication ?Instructions ?Recorded ?Last Taken ?Type albuterol sulfate 90 mcg/actuation 2 puff inhalation Q6H PRN Wheezing 08/24/22 Unknown History aerosol inhaler (Ventolin HFA) metoprolol tartrate 25 mg tablet 25 mg PO DAILY afib 08/24/22 01/25/24 History amlodipine 10 mg tablet 10 mg PO DAILY #30 tabs 09/15/22 01/25/24 Rx Manual wheelchair #1 ea 03/24/23 Unknown Rx brimonidine 0.2 % eye drops 1 drp ophthalmic (eye) BID eyes 05/11/23 01/25/24 History latanoprost 0.005 % eye drops 1 drp RIGHT EYE QHS eyes 10/30/23 01/25/24 History guaifenesin 100 mg/5 mL oral liquid 200 mg (10 mL) PO Q4H PRN PRN 11/11/23 01/19/24 Rx Cough #0 mL nystatin 100,000 unit/gram topical 1 applic topical BID #0 grams 11/11/23 01/25/24 Rx powder ([facility]) pantoprazole 40 mg tablet,delayed 40 mg PO BID #0 tabs 11/11/23 01/25/24 Rx release apixaban 2.5 mg tablet (Eliquis) 2.5 mg PO BID 01/26/24 01/25/24 History atorvastatin 20 mg tablet 20 mg PO DAILY 01/26/24 01/25/24 History calcitriol 0.25 mcg capsule 0.25 mcg PO MOWEFR 01/26/24 01/16/24 History cyclobenzaprine 7.5 mg tablet 7.5 mg PO Q8H PRN muscle spasm 01/26/24 01/15/24 History divalproex 125 mg capsule,delayed 1,000 mg PO BID 01/26/24 01/25/24 History release sprinkle midodrine 10 mg tablet 10 mg PO DAILY PRN SBP 01/26/24 Unknown History Allergy/AdvReac Type Severity Reaction Status Date / Time lisinopril AdvReac Severe Other Verified 12/20/23 11:12 oxycodone AdvReac Severe Other Verified 12/20/23 11:12 hydrocodone bitartrate (From AdvReac Mild HYPER Verified 12/20/23 11:12 Vicodin) Family History Father Cancer Prostate Heart disease Mother Heart disease Diabetes Other COPD (chronic obstructive pulmonary disease) Surgical History S/P arteriovenous (AV) fistula creation Hx of right cataract extraction Hx of left cataract extraction Hx of arteriovenostomy for renal dialysis History of rotator cuff surgery History of umbilical hernia repair Status post foot surgery Social History housing: [facility] number of children: 3 current occupational status: disabled Smoking Status: Never smoker Smokeless tobacco user: snuff second hand exposure: No alcohol intake: never substance use type: does not use what type of physical activity do you participate in: other details: health point frequency: 3-4 times per week alba/anglican: Other seatbelt use: always ROS Review of Systems ROS Unobtainable: due to endotracheal tube Physical Exam Const Constitutional Narrative: Intubated and mechanically ventilated. No ventilator dyssynchrony. HEENT normocephalic and head/scalp atraumatic Mouth: endotracheal tube in place Eyes conjunctivae normal and no scleral icterus Neck Neck Narrative: Rigid c-collar in place. Chest inspection of chest normal Resp normal respiratory effort Auscultation: diminished lung sounds; Negative for rales, rhonchi or wheezes Cardio S1 normal heart sound and S2 normal heart sound Rate: tachycardic GI normal to inspection, nondistended, normoactive bowel sounds Extremity no clubbing, cyanosis or edema Skin no rashes or lesions noted Neuro Neuro Narrative: The patient is actually alert and able to nod to questioning. Lab / Micro Data 01/27/24 03:15 01/27/24 05:58 Labs: Laboratory Results - last 24 hr 01/26/24 07:45: Sodium 135 L, Potassium 3.9, Chloride 96 L, Carbon Dioxide 24.0, Anion Gap 15, BUN 38 H, Creatinine 4.65 H, Estim Creat Clear Calc 18.61, Est GFR (MDRD) Af Amer 16 L, Est GFR (MDRD) Non-Af 14 L, BUN/Creatinine Ratio 8.2 L, Glucose 88, Calcium 8.9, Total Bilirubin 1.10 H, AST 528 H, ALT 128 H, Alkaline Phosphatase 153 H, Total Creatine Kinase 45, Troponin I High Sens 13, Total Protein 6.9, Albumin 1.7 L, Globulin 5.2 H, Albumin/Globulin Ratio 0.3 L, Valproic Acid 91 01/26/24 08:00: Urine Color Heike, Urine Clarity Clear, Urine pH 6.0, Ur Specific [place] 1.020, Urine Protein 500 H, Urine Glucose (UA) 50 H, Urine Ketones 5 H, Urine Occult Blood 25 H, Urine Nitrite Positive H, Urine Bilirubin 3 H, Urine Urobilinogen Normal, Ur Leukocyte Esterase 100 H, Urine RBC 0 SEEN, Urine WBC 0-5 SEEN, Ur Squamous Epith Cells 0-5 SEEN, Urine Bacteria 2+, Urine Mucus 0 SEEN 01/26/24 08:05: WBC 11.8 H, RBC 2.84 L, Hgb 8.3 L, Hct 28.6 L, MCV 100.7 H, MCH 29.2, MCHC 29.0 L, RDW Std Deviation 72.8 H, RDW Coeff of Silvia 19.7 H, Plt Count 203, MPV 10.6, Immature Gran % (Auto) 3.200 H, Neut % (Auto) 82.9 H, Lymph % (Auto) 7.7 L, [place] % (Auto) 5.4, Eos % (Auto) 0.1, Baso % (Auto) 0.7, Absolute Neuts (auto) 9.8 H, Absolute Lymphs (auto) 0.90, Nucleated RBC % 0.5, Anisocytosis 2+, PT 33.8 H, INR 3.4, APTT 40.9 H, Lactic Acid 4.9 H* Micro: Microbiology 01/26/24 08:10 Sputum, Induced/Lukens Gram Stain - Final 01/26/24 08:24 Stool Stool Occult Blood (EMILY) - Final Occult Blood Positive ABG Data ABG results: ABG 01/26/24 09:10 Specimen Type ART Sample Site L Radial pH 7.38 Bicarbonate Actual 25.1 Total CO2 27 Base Excess 0 O2 Saturation 95 O2 % 100.0 ABG pCO2 43.0 ABG pO2 77 Richi Test Positive Respiration Rate 400 O2 Delivery Device Adult Vent Vent Mode AC Tidal Volume 14.0 POC PEEP 5 Imaging Radiology Impression Brain CT 01/26/24 07:41 IMPRESSION: Chronic involutional changes of the brain. Electronically Signed: Michael Allen MD at 9:19 EDT , Chest X-Ray 01/26/24 07:46 IMPRESSION: The tip of the endotracheal tube is at the origin of the left mainstem bronchus. This should be withdrawn approximately 2.5 cm. Volume loss and possible atelectasis with infiltrate in the right lower lobe with small right pleural effusion. Electronically Signed: Michael Allen MD at 9:21 EDT , Charges/Coding Procedures Hospitalists Procedures: 12216 Critical Care 1st Hr
[2024-01-26 13:38] LABS: Amphetamine Urine VISTA NEGATIVE (<1000 ng/mL); Barbiturate Urine VISTA NEGATIVE (< 200 ng/mL); Benzodiazepine Urine VISTA NEGATIVE (< 200 ng/mL); Cocaine Urine VISTA NEGATIVE (< 300 ng/mL); Ecstacy Urine VISTA NEGATIVE (< 500 ng/mL); Methadone Urine VISTA NEGATIVE (< 300 ng/mL); PCP Urine VISTA NEGATIVE (< 25 ng/mL); THC Urine VISTA NEGATIVE (< 50 ng/mL); Vista UDS pH Range 4
--- NOTE | 2024-01-26 13:48 | ECHOD_ITS ---
Reason For Study: ATRIAL FIBRILLATION Procedure This was a 2D Doppler, Color Flow transthoracic echocardiogram. Patient was scanned in supine position during reflux assessment. Patient was on a ventillator. Exam performed portable in ICU/CCU. Left Ventricle Normal LV size. The estimated ejection fraction is 55 %. Unable to assess diastolic dysfunction. No regional wall motion abnormalities noted. Right Ventricle Normal RV size. Normal systolic function. Atria There is mild biatrial dilatation. No doppler evidence for ASD. Mitral Valve There is no mitral valve stenosis. Trivial mitral valve insufficiency. Tricuspid Valve There is no tricuspid stenosis. Mild (1+) tricuspid valve insufficiency. Pulmonary artery systolic pressure is 35 mmHg. Aortic Valve Aortic sclerosis, no stenosis. There is no aortic stenosis. No aortic valve insufficiency. Pulmonic Valve There is no pulmonic valvular stenosis. No pulmonic valve insufficiency. Great Vessels Normal aortic root. Pericardium/Pleural No pericardial effusion. MMode/2D Measurements & Calculations LVIDd: 4.2 cm IVSd: 1.0 cm LVOT diam: 1.9 cm LVIDs: 3.0 cm LVPWd: 1.1 cm LVOT area: 2.7 cm2 RVDd: 3.6 cm FS: 28.2 % Ao root diam: 3.1 cm LAV(MOD-bp): 48.4 ml LVAd ap4: 14.9 cm2 LAV(MOD-bp) Indexed: 24.0 ml/m2 LVLd ap4: 6.2 cm LAV(MOD-sp2): 46.2 ml EDV(MOD-sp4): 29.5 ml LAV(MOD-sp4): 44.3 ml EDV(sp4-el): 30.6 ml LVAs ap4: 10.1 cm2 LVLs ap4: 5.3 cm ESV(MOD-sp4): 16.3 ml ESV(sp4-el): 16.5 ml EF(MOD-sp4): 44.8 % EF(sp4-el): 46.0 % LVAd ap2: 17.9 cm2 SV(MOD-sp4): 13.2 ml SV(MOD-sp2): 22.8 ml LVLd ap2: 6.3 cm EDV(MOD-sp2): 42.7 ml EDV(sp2-el): 43.2 ml LVAs ap2: 11.6 cm2 LVLs ap2: 5.7 cm ESV(MOD-sp2): 20.0 ml ESV(sp2-el): 19.9 ml EF(MOD-sp2): 53.3 % SV(sp4-el): 14.1 ml LA dimension(2D): 3.5 cm LA A4 area: 17.3 cm2 RA A4 area: 17.2 cm2 TAPSE: 0.71 cm Time Measurements MV dec time: 0.17 sec Doppler Measurements & Calculations MV E max fermin: 87.5 cm/sec Lat Peak E' Fermin: 3.6 cm/sec Med Peak E' Fermin: 3.7 cm/sec E/E' lat: 24.3 E/E' med: 23.7 Ao V2 max: 132.4 cm/sec LV V1 max: 97.9 cm/sec SV(LVOT): 36.8 ml Ao max P.1 mmHg LV V1 max P.8 mmHg Ao V2 mean: 93.2 cm/sec LV V1 mean P.1 mmHg Ao mean P.9 mmHg LV V1 mean: 68.0 cm/sec Ao V2 VTI: 19.6 cm LV V1 VTI: 13.5 cm AV (velocity ratio): 0.69 TONYA(I,D): 1.9 cm2 TONYA(V,D): 2.0 cm2 PA V2 max: 56.6 cm/sec TR max fermin: 281.3 cm/sec PA max PG (full): 0.09 mmHg TR max P.7 mmHg ECHO/Echo Complete Interpretation Summary The estimated ejection fraction is 55 %. Unable to assess diastolic dysfunction. Trivial mitral valve insufficiency. Ordering Physician: Ashtyn Canseco Referring Physician: Amish Han Performed By: Odette Pineda RDCS and Student
[2024-01-26 13:56] LABS: Lactic Acid 2.6 mmol/L (0.4-1.9)
[2024-01-26 14:10] LABS: Hemoglobin 8.2 g/dL (13.0-16.5)
[2024-01-26 15:14] LABS: M R Staph aureus DNA By PCR POSITIVE (Negative)
[2024-01-26 15:15] LABS: Probe Check PASS
--- NOTE | 2024-01-26 15:43 | PCM.RX.CS ---
Consult Antibiotic Management Pharmacy has been consulted to manage selected antibiotic: Vancomycin Type of Intervention Type of Consult: New start Suspected Infection Suspected Infection: Other Prior Doses of Antibiotics Prior Doses of Antibiotics Received/Current Regimen: Received 1500mg iv x 1 on 01.26.24 @0958. Labs Labs: Sodium 135 mmol/L (136-145) L 01/26/24 07:45 Potassium 3.9 mmol/L (3.5-5.1) 01/26/24 07:45 Chloride 96 mmol/L (98-107) L 01/26/24 07:45 Carbon Dioxide 24.0 mmol/L (21.0-32.0) 01/26/24 07:45 Anion Gap 15 (5-15) 01/26/24 07:45 BUN 38 mg/dL (7-18) H 01/26/24 07:45 Creatinine 4.65 mg/dL (0.70-1.30) H 01/26/24 07:45 Est GFR (MDRD) Af Amer 16 mL/min (>60) L 01/26/24 07:45 Est GFR (MDRD) Non-Af 14 mL/min (>60) L 01/26/24 07:45 BUN/Creatinine Ratio 8.2 RATIO (10-20) L 01/26/24 07:45 Glucose 88 mg/dL (74-106) 01/26/24 07:45 Microbiology Microbiology: Microbiology 01/26/24 08:10 Sputum, Induced/Lukens Gram Stain - Final 01/26/24 08:24 Stool Stool Occult Blood (EMILY) - Final Occult Blood Positive Dosing Weight Weight used for dosin.6 kg Estimated Creatinine Clearance Estimated Creatinine Clearance: 19 ml/min Goal Trough Goal Trough: 15-20 mcg/mL Pharmacy Plan for Drug Dosing Pharmacy Plan for Drug Dosing: Will hold any scheduled dosing due to Cr 4.65. Random level ordered for tomorrow AM. Further dosing to be determined then. Pharmacy Service will continue to monitor and adjust dosing as required. Follow-Up Labs Follow-Up Labs: Trough: Vancomycin (random level 01.27.24 @1000)
[2024-01-26] MEDS: Metoprolol Tartrate 5 MG/5 ML Vial IV (15:47)
--- NOTE | 2024-01-26 16:12 | PCM.CONS.R ---
Assessment & Plan Assessment/Plan (1) ESRD (end stage renal disease) on dialysis: (2) Acute hypoxic respiratory failure: PLAN: Plan Impression/Plan: The patient is a 63-year-old male with past history of ESRD, type 2 diabetes mellitus, hypertension, stroke, atrial fibrillation, seizure disorder, and hyperlipidemia. Patient was admitted to the hospital on 01/26/2024 because of PEA arrest at [facility] with acute hypoxic/hypercapnic respiratory failure requiring ventilator support. Nephrology is following for ESRD and dialysis need. ESRD. Patient usually dialyzes on a 4 days/week schedule with [facility] machine at [facility] (Tuesday, Tuesday, and Tuesday). Patient was dialyzed on 01/24/2024. No urgent need for dialysis today. Patient is not volume overloaded. There is no hyperkalemia or severe acidosis. Will plan on dialyzing patient tomorrow on 01/27/2024. Acute hypoxic respiratory failure in the setting of PEA arrest. Patient is ventilator dependent. Management of ventilator as per manager auto. We will ultrafilter the patient tomorrow with dialysis to maximize chance of extubation. Nephrology plan is discussed with Dr. Thelma Canseco. HPI Consult Data Date of Consult: 01/26/24 HPI Narrative Reason for Consultation: ESRD HPI Narrative: The patient is a 63-year-old male with past history of ESRD, type 2 diabetes mellitus, hypertension, stroke, atrial fibrillation, seizure disorder, and hyperlipidemia. Patient presented from [facility] after being found down for unknown period of time. Patient was pulseless when he was found by EMS. CPR was continued for 15 minutes per review of chart prior to ROSC. Patient was intubated in the field and remains on ventilator in ICU. Patient is being treated for acute on chronic hypoxic respiratory failure. He appears to have volume overload with possible pneumonia. Nephrology is asked to see the patient because of ESRD. Patient is currently intubated and sedated in ICU. Cannot obtain history directly from patient. Chart was extensively reviewed and progress discussed with hospitalist and nursing staff. [facility] Medical History (Updated 01/26/24 @ 16:[address] Andie Weiss MD) ESRD (end stage renal disease) on dialysis Anemia Right leg weakness Weakness Epilepsy Polyneuropathy History of right MCA stroke Stroke End stage renal disease Wears glasses Wears partial dentures Insulin dependent diabetes mellitus Ambulates with cane Arthritis History of renal disease High cholesterol Restless legs Back pain Migraine headache Injury of head and neck Syncope Dietary restriction Heartburn Former smoker History of pain when walking Cardiology follow-up encounter History of echocardiogram History of stress test History of atrial fibrillation History of renal dialysis Chronic kidney disease, stage 4 (severe) TIA (transient ischemic attack) Acute and chronic respiratory failure with hypoxia CHF (congestive heart failure) Seizures HTN (hypertension) Peripheral neuropathy Home Medications ?Medication ?Instructions ?Recorded ?Last Taken ?Type albuterol sulfate 90 mcg/actuation 2 puff inhalation Q6H PRN Wheezing 08/24/22 Unknown History aerosol inhaler (Ventolin HFA) metoprolol tartrate 25 mg tablet 25 mg PO DAILY afib 08/24/22 01/25/24 History amlodipine 10 mg tablet 10 mg PO DAILY #30 tabs 09/15/22 01/25/24 Rx Manual wheelchair #1 ea 03/24/23 Unknown Rx brimonidine 0.2 % eye drops 1 drp ophthalmic (eye) BID eyes 05/11/23 01/25/24 History latanoprost 0.005 % eye drops 1 drp RIGHT EYE QHS eyes 10/30/23 01/25/24 History guaifenesin 100 mg/5 mL oral liquid 200 mg (10 mL) PO Q4H PRN PRN 11/11/23 01/19/24 Rx Cough #0 mL nystatin 100,000 unit/gram topical 1 applic topical BID #0 grams 11/11/23 01/25/24 Rx powder ([facility]) pantoprazole 40 mg tablet,delayed 40 mg PO BID #0 tabs 11/11/23 01/25/24 Rx release apixaban 2.5 mg tablet (Eliquis) 2.5 mg PO BID 01/26/24 01/25/24 History atorvastatin 20 mg tablet 20 mg PO DAILY 01/26/24 01/25/24 History calcitriol 0.25 mcg capsule 0.25 mcg PO MOWEFR 01/26/24 01/16/24 History cyclobenzaprine 7.5 mg tablet 7.5 mg PO Q8H PRN muscle spasm 01/26/24 01/15/24 History divalproex 125 mg capsule,delayed 1,000 mg PO BID 01/26/24 01/25/24 History release sprinkle midodrine 10 mg tablet 10 mg PO DAILY PRN SBP 01/26/24 Unknown History Allergy/AdvReac Type Severity Reaction Status Date / Time lisinopril AdvReac Severe Other Verified 12/20/23 11:12 oxycodone AdvReac Severe Other Verified 12/20/23 11:12 hydrocodone bitartrate (From AdvReac Mild HYPER Verified 12/20/23 11:12 Vicodin) Family History Father Cancer Prostate Heart disease Mother Heart disease Diabetes Other COPD (chronic obstructive pulmonary disease) Surgical History S/P arteriovenous (AV) fistula creation Hx of right cataract extraction Hx of left cataract extraction Hx of arteriovenostomy for renal dialysis History of rotator cuff surgery History of umbilical hernia repair Status post foot surgery Social History housing: shelter number of children: 3 current occupational status: disabled Smoking Status: Never smoker Smokeless tobacco user: snuff second hand exposure: No alcohol intake: never substance use type: does not use what type of physical activity do you participate in: other details: health point frequency: 3-4 times per week alba/confucianism: Other seatbelt use: always ROS ROS Narrative Cannot do ROS. Patient is on ventilator and is encephalopathic. Physical Exam Narrative General: On ventilator, obtunded HEENT: Normocephalic, atraumatic. Intubated, mucous membrane moist without erythema. PERRLA. Neck: Supple, no JVD. Trachea is midline. No thyromegaly or lymphadenopathy. Cardiovascular: Irregularly irregular S1, S2. Tachycardic, no rubs, murmurs, or gallops. Respiratory: Lungs are coarse auscultation bilaterally. Abdomen: Normal bowel sounds, soft, nontender, no guarding or rebound, no organomegaly. Extremities: No clubbing, cyanosis, or edema. Musculoskeletal: Full passive range of motion, no joint swelling. Skin: Warm and dry, no rash. Lab / Micro Data 01/26/24 14:00 01/26/24 07:45 Labs: Laboratory Results - last 24 hr 01/26/24 07:45: Sodium 135 L, Potassium 3.9, Chloride 96 L, Carbon Dioxide 24.0, Anion Gap 15, BUN 38 H, Creatinine 4.65 H, Estim Creat Clear Calc 18.61, Est GFR (MDRD) Af Amer 16 L, Est GFR (MDRD) Non-Af 14 L, BUN/Creatinine Ratio 8.2 L, Glucose 88, Calcium 8.9, Total Bilirubin 1.10 H, AST 528 H, ALT 128 H, Alkaline Phosphatase 153 H, Total Creatine Kinase 45, Troponin I High Sens 13, Total Protein 6.9, Albumin 1.7 L, Globulin 5.2 H, Albumin/Globulin Ratio 0.3 L, Valproic Acid 91 01/26/24 08:00: Urine Color Heike, Urine Clarity Clear, Urine pH 6.0, Ur Specific [place] 1.020, Urine Protein 500 H, Urine Glucose (UA) 50 H, Urine Ketones 5 H, Urine Occult Blood 25 H, Urine Nitrite Positive H, Urine Bilirubin 3 H, Urine Urobilinogen Normal, Ur Leukocyte Esterase 100 H, Urine RBC 0 SEEN, Urine WBC 0-5 SEEN, Ur Squamous Epith Cells 0-5 SEEN, Urine Bacteria 2+, Urine Mucus 0 SEEN 01/26/24 08:05: WBC 11.8 H, RBC 2.84 L, Hgb 8.3 L, Hct 28.6 L, MCV 100.7 H, MCH 29.2, MCHC 29.0 L, RDW Std Deviation 72.8 H, RDW Coeff of Silvia 19.7 H, Plt Count 203, MPV 10.6, Immature Gran % (Auto) 3.200 H, Neut % (Auto) 82.9 H, Lymph % (Auto) 7.7 L, [place] % (Auto) 5.4, Eos % (Auto) 0.1, Baso % (Auto) 0.7, Absolute Neuts (auto) 9.8 H, Absolute Lymphs (auto) 0.90, Nucleated RBC % 0.5, Anisocytosis 2+, PT 33.8 H, INR 3.4, APTT 40.9 H, Lactic Acid 4.9 H* 01/26/24 13:07: Lactic Acid 2.6 H*, Ammonia 29.0 01/26/24 13:10: MRSA (PCR) POSITIVE H 01/26/24 13:12: Urine Opiates Screen NEGATIVE, Urine Methadone Screen NEGATIVE, Ur Barbiturates Screen NEGATIVE, Ur Phencyclidine Scrn NEGATIVE, Ur Amphetamines Screen NEGATIVE, MDMA (Ecstasy) Screen NEGATIVE, U Benzodiazepines Scrn NEGATIVE, Urine Cocaine Screen NEGATIVE, U Cannabinoids Screen NEGATIVE, Ur Drug Screen Comment 01/26/24 14:00: Hgb 8.2 L, Blood Type O POSITIVE, Antibody Screen NEGATIVE Micro: Microbiology 01/26/24 08:10 Sputum, Induced/Lukens Gram Stain - Final 01/26/24 08:24 Stool Stool Occult Blood (EMILY) - Final Occult Blood Positive ABG Data ABG results: ABG 01/26/24 09:10 Specimen Type ART Sample Site L Radial pH 7.38 Bicarbonate Actual 25.1 Total CO2 27 Base Excess 0 O2 Saturation 95 O2 % 100.0 ABG pCO2 43.0 ABG pO2 77 Richi Test Positive Respiration Rate 400 O2 Delivery Device Adult Vent Vent Mode AC Tidal Volume 14.0 POC PEEP 5 Imaging Radiology Impression Brain CT 01/26/24 07:41 IMPRESSION: Chronic involutional changes of the brain. Electronically Signed: Michael Allen MD at 9:19 EDT , Chest X-Ray 01/26/24 07:46 IMPRESSION: The tip of the endotracheal tube is at the origin of the left mainstem bronchus. This should be withdrawn approximately 2.5 cm. Volume loss and possible atelectasis with infiltrate in the right lower lobe with small right pleural effusion. Electronically Signed: Michael Allen MD at 9:21 EDT , Cervical Spine CT 01/26/24 12:40 IMPRESSION: Multilevel degenerative changes, as described above. Electronically Signed: Michael Allen MD at 13:17 EDT ,
--- NOTE | 2024-01-26 18:14 | CON.PCM.GI_ITS ---
HPI Consult Data Date of Consult: 01/26/24 HPI Narrative Reason for Consultation: GI bleed HPI Narrative: JAMES RICO, is a 63 M who presents unresponsive from his [facility]. Last known well was last evening at about 7-8 per EMS. Patient was found unresponsive on the ground today at the [facility] where CPR was reportedly started. EMS states that when they were called out the patient had a pulse and apparently by the time they had arrived the patient had lost the pulse and reportedly had CPR for about 15 minutes. EMS reports he had a pulse on arrival. They intubated him on scene. Patient was hypoxic and altered. EMS reports that nursing staff told them the patient had not had dialysis in a couple of weeks. I was asked to see him because when he was intubated and OG tube was placed and it was some bright red blood coming from his OG tube. He is known to GI service because of history of peptic ulcer disease status post upper endoscopy with clipping and cauterization of peptic ulcer . [facility] Medical History (Updated 01/26/24 @ 16:[address] Andie Weiss MD) ESRD (end stage renal disease) on dialysis Anemia Right leg weakness Weakness Epilepsy Polyneuropathy History of right MCA stroke Stroke End stage renal disease Wears glasses Wears partial dentures Insulin dependent diabetes mellitus Ambulates with cane Arthritis History of renal disease High cholesterol Restless legs Back pain Migraine headache Injury of head and neck Syncope Dietary restriction Heartburn Former smoker History of pain when walking Cardiology follow-up encounter History of echocardiogram History of stress test History of atrial fibrillation History of renal dialysis Chronic kidney disease, stage 4 (severe) TIA (transient ischemic attack) Acute and chronic respiratory failure with hypoxia CHF (congestive heart failure) Seizures HTN (hypertension) Peripheral neuropathy Home Medications ?Medication ?Instructions ?Recorded ?Last Taken ?Type albuterol sulfate 90 mcg/actuation 2 puff inhalation Q6H PRN Wheezing 08/24/22 Unknown History aerosol inhaler (Ventolin HFA) metoprolol tartrate 25 mg tablet 25 mg PO DAILY afib 08/24/22 01/25/24 History amlodipine 10 mg tablet 10 mg PO DAILY #30 tabs 09/15/22 01/25/24 Rx Manual wheelchair #1 ea 03/24/23 Unknown Rx brimonidine 0.2 % eye drops 1 drp ophthalmic (eye) BID eyes 05/11/23 01/25/24 History latanoprost 0.005 % eye drops 1 drp RIGHT EYE QHS eyes 10/30/23 01/25/24 History guaifenesin 100 mg/5 mL oral liquid 200 mg (10 mL) PO Q4H PRN PRN 11/11/23 01/19/24 Rx Cough #0 mL nystatin 100,000 unit/gram topical 1 applic topical BID #0 grams 11/11/23 01/25/24 Rx powder ([facility]) pantoprazole 40 mg tablet,delayed 40 mg PO BID #0 tabs 11/11/23 01/25/24 Rx release apixaban 2.5 mg tablet (Eliquis) 2.5 mg PO BID 01/26/24 01/25/24 History atorvastatin 20 mg tablet 20 mg PO DAILY 01/26/24 01/25/24 History calcitriol 0.25 mcg capsule 0.25 mcg PO MOWEFR 01/26/24 01/16/24 History cyclobenzaprine 7.5 mg tablet 7.5 mg PO Q8H PRN muscle spasm 01/26/24 01/15/24 History divalproex 125 mg capsule,delayed 1,000 mg PO BID 01/26/24 01/25/24 History release sprinkle midodrine 10 mg tablet 10 mg PO DAILY PRN SBP 01/26/24 Unknown History Allergy/AdvReac Type Severity Reaction Status Date / Time lisinopril AdvReac Severe Other Verified 12/20/23 11:12 oxycodone AdvReac Severe Other Verified 12/20/23 11:12 hydrocodone bitartrate (From AdvReac Mild HYPER Verified 12/20/23 11:12 Vicodin) Family History Father Cancer Prostate Heart disease Mother Heart disease Diabetes Other COPD (chronic obstructive pulmonary disease) Surgical History S/P arteriovenous (AV) fistula creation Hx of right cataract extraction Hx of left cataract extraction Hx of arteriovenostomy for renal dialysis History of rotator cuff surgery History of umbilical hernia repair Status post foot surgery Social History housing: [facility] number of children: 3 current occupational status: disabled Smoking Status: Never smoker Smokeless tobacco user: snuff second hand exposure: No alcohol intake: never substance use type: does not use what type of physical activity do you participate in: other details: health point frequency: 3-4 times per week alba/anglican: Other seatbelt use: always ROS ROS Narrative Cannot do ROS. Patient is on ventilator and is encephalopathic. Physical Exam Narrative General: On ventilator, obtunded HEENT: Normocephalic, atraumatic. Intubated, mucous membrane moist without erythema. PERRLA. Neck: Supple, no JVD. Trachea is midline. No thyromegaly or lymphadenopathy. Cardiovascular: Irregularly irregular S1, S2. Tachycardic, no rubs, murmurs, or gallops. Respiratory: Lungs are coarse auscultation bilaterally. Abdomen: Normal bowel sounds, soft, nontender, no guarding or rebound, no organomegaly. Extremities: No clubbing, cyanosis, or edema. Musculoskeletal: Full passive range of motion, no joint swelling. Skin: Warm and dry, no rash. Lab / Micro Data 01/26/24 14:00 01/26/24 07:45 Labs: Laboratory Results - last 24 hr 01/26/24 07:45: Sodium 135 L, Potassium 3.9, Chloride 96 L, Carbon Dioxide 24.0, Anion Gap 15, BUN 38 H, Creatinine 4.65 H, Estim Creat Clear Calc 18.61, Est GFR (MDRD) Af Amer 16 L, Est GFR (MDRD) Non-Af 14 L, BUN/Creatinine Ratio 8.2 L, Glucose 88, Calcium 8.9, Total Bilirubin 1.10 H, AST 528 H, ALT 128 H, Alkaline Phosphatase 153 H, Total Creatine Kinase 45, Troponin I High Sens 13, Total Protein 6.9, Albumin 1.7 L, Globulin 5.2 H, Albumin/Globulin Ratio 0.3 L, Valproic Acid 91 01/26/24 08:00: Urine Color Heike, Urine Clarity Clear, Urine pH 6.0, Ur Specific [place] 1.020, Urine Protein 500 H, Urine Glucose (UA) 50 H, Urine Ketones 5 H, Urine Occult Blood 25 H, Urine Nitrite Positive H, Urine Bilirubin 3 H, Urine Urobilinogen Normal, Ur Leukocyte Esterase 100 H, Urine RBC 0 SEEN, Urine WBC 0-5 SEEN, Ur Squamous Epith Cells 0-5 SEEN, Urine Bacteria 2+, Urine Mucus 0 SEEN 01/26/24 08:05: WBC 11.8 H, RBC 2.84 L, Hgb 8.3 L, Hct 28.6 L, MCV 100.7 H, MCH 29.2, MCHC 29.0 L, RDW Std Deviation 72.8 H, RDW Coeff of Silvia 19.7 H, Plt Count 203, MPV 10.6, Immature Gran % (Auto) 3.200 H, Neut % (Auto) 82.9 H, Lymph % (Auto) 7.7 L, [place] % (Auto) 5.4, Eos % (Auto) 0.1, Baso % (Auto) 0.7, Absolute Neuts (auto) 9.8 H, Absolute Lymphs (auto) 0.90, Nucleated RBC % 0.5, Anisocytosis 2+, PT 33.8 H, INR 3.4, APTT 40.9 H, Lactic Acid 4.9 H* 01/26/24 13:07: Lactic Acid 2.6 H*, Ammonia 29.0 01/26/24 13:10: MRSA (PCR) POSITIVE H 01/26/24 13:12: Urine Opiates Screen NEGATIVE, Urine Methadone Screen NEGATIVE, Ur Barbiturates Screen NEGATIVE, Ur Phencyclidine Scrn NEGATIVE, Ur Amphetamines Screen NEGATIVE, MDMA (Ecstasy) Screen NEGATIVE, U Benzodiazepines Scrn NEGATIVE, Urine Cocaine Screen NEGATIVE, U Cannabinoids Screen NEGATIVE, Ur Drug Screen Comment 01/26/24 14:00: Hgb 8.2 L, Blood Type O POSITIVE, Antibody Screen NEGATIVE Micro: Microbiology 01/26/24 08:10 Sputum, Induced/Lukens Gram Stain - Final 01/26/24 08:24 Stool Stool Occult Blood (EMILY) - Final Occult Blood Positive ABG Data ABG results: ABG 01/26/24 09:10 Specimen Type ART Sample Site L Radial pH 7.38 Bicarbonate Actual 25.1 Total CO2 27 Base Excess 0 O2 Saturation 95 O2 % 100.0 ABG pCO2 43.0 ABG pO2 77 Richi Test Positive Respiration Rate 400 O2 Delivery Device Adult Vent Vent Mode AC Tidal Volume 14.0 POC PEEP 5 Imaging Radiology Impression Brain CT 01/26/24 07:41 IMPRESSION: Chronic involutional changes of the brain. Electronically Signed: Michael Allen MD at 9:19 EDT , Chest X-Ray 01/26/24 07:46 IMPRESSION: The tip of the endotracheal tube is at the origin of the left mainstem bronchus. This should be withdrawn approximately 2.5 cm. Volume loss and possible atelectasis with infiltrate in the right lower lobe with small right pleural effusion. Electronically Signed: Michael Allen MD at 9:21 EDT , Cervical Spine CT 01/26/24 12:40 IMPRESSION: Multilevel degenerative changes, as described above. Electronically Signed: Michael Allen MD at 13:17 EDT , Echocardiogram 01/26/24 13:48 Interpretation Summary The estimated ejection fraction is 55 %. Unable to assess diastolic dysfunction. Trivial mitral valve insufficiency. Ordering Physician: Ashtyn Canseco Referring Physician: Amish Han Performed By: Odette Pineda RDCS and Student Assessment & Plan Assessment/Plan (1) Acute respiratory failure: QUALIFIERS: Respiratory failure complication: hypoxia Qualified Code(s): J96.01 - Acute respiratory failure with hypoxia (2) End stage renal disease: (3) Pneumonia: PLAN: Plan Patient is a 63-year-old male who presented to [facility] ED with worsening dyspnea and hypoxia. Intubated in the field secondary to PEA arrest. Currently intubated and experienced blood from OG tube. Acute on chronic hypoxic respiratory failure Suspect multifactorial in setting of significant metabolic acidosis from missed HD sessions. , He was previously intubated on 10/29 and remained intubated until 11/05. Was successfully extubated to nasal cannula on 11/05. He is currently intubated. 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 ? 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 Currently stable on 2 L nasal cannula at rest, continue to wean oxygen as able. Acute on chronic anemia secondary to upper GI bleed Hemoglobin 8.3 on admit, down trended to 8.2 shortly after with IV fluids. No overt signs of bleeding noted. Baseline hemoglobin appears to be around 9-10. Iron studies show ferritin 1852, consistent with anemia of chronic disease. EGD on 11/03 showed oozing gastric ulcers with pigmented material that were injected, treated with heater probe and clipped. He will probably end up needing a repeat upper endoscopy. Recommend just Protonix 40 mg IV every 12 hours at this time. Charges/Coding Visit Charges Inpatient E&M: 66473 Init Hosp L3
[2024-01-26 20:03] LABS: Hemoglobin 8.2 g/dL (13.0-16.5)
[2024-01-26] MEDS: Latanoprost 0.005% 1 Bottle 1 DRP RIGHT EYE (21:54)
[2024-01-26] MEDS: BRIMONIDINE 0.2% 5ML BOTTLE 1 DRP RIGHT EYE (21:55)
[2024-01-26] MEDS: Miconazole Nitrate 43 GM Bottle 1 APPLIC TOPICAL (21:56)
[2024-01-26] MEDS: Pantoprazole Sodium 40 MG in 0.9% Normal Saline (100mL MB+) 100 ML 330 MG IV (21:57)
[2024-01-26] MEDS: Divalproex Sodium 125 MG SPRINKLE 1000 MG NG (21:57)
[2024-01-27] VITALS (51 sets, daily range): BP systolic 60–227; BP diastolic 42–76; PULSE 101–138; RESP 13–20; TEMP 36.1–36.8; O2SAT 94–100; BMI 26.4; BMI 25.9
[2024-01-27] MEDS: fentaNYL drip 100 ML 5 MCG CONT INF ×2 (02:21→23:51)
[2024-01-27 03:21] LABS: Absolute Neutrophil Count 8.7 X10^3/uL (2.0-7.7); Basophil# 0.05 X10^3/uL; Basophil% 0.5 % (0-1); Eosinophil# 0.06 X10^3/uL; Eosinophils% 0.6 % (0-5); Hematocrit 24.3 % (40-54); Hemoglobin 7.5 g/dL (13.0-16.5); Lymphocyte % 8.7 % (19-41); Mean Corp Hgb Conc 30.9 g/dL (32-36); Mean Corpuscular Hgb 29.2 pg (27.0-32.0); Mean Corpuscular Volume 94.6 fL (80-94); Mean Platelet Vol. 10.1 fl (6.2-12.0); Monocyte# 0.58 X10^3/uL; Monocyte% 5.6 % (0-10); NRBC Flagged by Analyzer 0.3 % (0-5); Neutrophil # 8.68 X10^3/uL (2.7-7.7); Neutrophil % 83.9 % (47-70); POSITIVE MORPHOLOGY YES; Platelet Count 173 K/mm3 (150-450); RBC Distribution Width CV 19.8 % (11.6-14.6); RBC Distribution Width SD 68.1 fl (35.1-43.9); Red Blood Count 2.57 M/mm3 (4.6-6.2); White Blood Count 10.3 K/mm3 (4.4-11.0)
[2024-01-27 03:48] LABS: Thyroid Stim Hormone (TSH) 5.55 uIU/mL (0.358-3.74)
[2024-01-27 06:21] LABS: Anion Gap 11 (5-15); BUN 48 mg/dL (7-18); BUN/Creat Ratio 10.2 RATIO (10-20); Calcium,Total 8.2 mg/dL (8.5-10.1); Chloride 99 mmol/L (98-107); Creatinine, Serum 4.72 mg/dL (0.70-1.30); EST Glomerular Filtration Rate 13 mL/min (>60); Est Glom Filt Rate - Afr Amer 16 mL/min (>60); Estimated Creatinine Clearance 16.54 ml/min; Glucose 98 mg/dL (74-106); Potassium 3.3 mmol/L (3.5-5.1); Sodium Level 137 mmol/L (136-145)
--- NOTE | 2024-01-27 06:53 | PCM.PN.INT ---
Assessment & Plan Assessment/Plan (1) Acute hypoxic respiratory failure: PLAN: Plan RECOMMENDATIONS: 1. Continue assist-control mode mechanical ventilation. Wean FiO2 and PEEP to maintain saturations at or above 90%. 2. Reattempt spontaneous breathing trial after dialysis. 3. Continue empiric antibiotics, pending finalized culture results. 4. Transfuse packed red blood cells if hemoglobin drops below 7 g/dL. 5. Continue PPI therapy. 6. Dialysis support per nephrology recommendations. IMPRESSIONS: 1. Acute on chronic hypoxemic respiratory failure in the setting of cardiopulmonary arrest The patient has a known history of chronic hypoxemic respiratory failure with a baseline oxygen requirement of 2 L/min. The patient was found down at his nursing facility pulseless and subsequently received CPR, with eventual ROSC. I do suspect that his current respiratory status is likely the consequence of hypervolemia, which likely developed secondary to recent incomplete dialysis sessions. The patient was started empirically on antibiotics, which will be continued, pending finalized culture results. The patient will be maintained on assist-control mode mechanical ventilation, with a goal to wean FiO2 to maintain saturations at or above 90%. I am hopeful that with dialysis support, the patient will pass his spontaneous breathing trial and will be able to be extubated. 2. End-stage renal disease on hemodialysis Nephrology following to assist with hemodialysis needs. 3. Acute on chronic anemia The patient has a history of gastric ulcers, which were treated during prior hospitalizations. Gastroenterology is currently following. Plan to transfuse if hemoglobin drops below 7 g/dL. In the interim, continue PPI therapy as ordered. 4. History of hypertension/paroxysmal atrial fibrillation with RVR/history of gastric ulcers/unspecified seizure disorder/HFpEF/diabetes mellitus Complicates care, management, recovery and prognosis. Continue sliding scale insulin coverage for now. Anticipate improvement in volume status with dialysis. Agree with holding Eliquis for now given guaiac positive stools. Continue to monitor blood counts and transfuse if hemoglobin drops below 7 g/dL. TIME: 32 minutes of critical care time, independent of procedures, was spent addressing the patient's acute on chronic hypoxemic respiratory failure, status postcardiopulmonary arrest, end-stage renal disease on hemodialysis, acute on chronic anemia, review of all data and collaboration with the care team. Subjective Subjective The patient was seen and examined at the bedside this morning. Events from the last 24 hours have been reviewed. The patient is currently afebrile, hemodynamically stable and maintaining appropriate oxygen saturations on assist-control mode of mechanical ventilation with an FiO2 requirement of 25%. The patient reportedly failed his spontaneous breathing trial this morning on account of apneic events and subsequent desaturation. Hemoglobin has trended downward to 7.5 g/dL. Platelet count is stable. Objective Data Objective Data The patient's most recent lab work, culture data and imaging studies have all been personally reviewed. Surface echocardiogram demonstrated an ejection fraction of 55%. Pulmonary artery systolic pressure was estimated to be 35 mmHg. Stool for occult blood was positive. Blood, urine and sputum cultures are pending. Vital Signs: Vital Signs Temp Pulse Resp BP Pulse Ox O2 Del Method FiO2 98.3 F 118 H 16 82/56 L 98 Mechanical Ventilator 285 01/27/24 04:00 01/27/24 06:38 01/27/24 06:38 01/27/24 05:00 01/27/24 06:38 01/27/24 06:38 01/27/24 06:38 Oxygen Delivery Method Mechanical Ventilator Weight: 184 lb 15.485 oz Body Mass Index (BMI) 26.4 Intake & Output: Intake and Output for Last 24 Hours 01/25/24 01/26/24 01/27/24 23:59 23:59 23:59 Intake Total 829.17 / 864.17 135.00 / 135.00 Output Total 185 / 185 Balance 644.17 / 679.17 135.00 / 135.00 Lab / Micro Data Attestation: I reviewed the patient's lab results. 01/27/24 03:15 01/27/24 05:58 Labs: Laboratory Results - last 24 hr 01/26/24 07:45: Sodium 135 L, Potassium 3.9, Chloride 96 L, Carbon Dioxide 24.0, Anion Gap 15, BUN 38 H, Creatinine 4.65 H, Estim Creat Clear Calc 18.61, Est GFR (MDRD) Af Amer 16 L, Est GFR (MDRD) Non-Af 14 L, BUN/Creatinine Ratio 8.2 L, Glucose 88, Calcium 8.9, Total Bilirubin 1.10 H, AST 528 H, ALT 128 H, Alkaline Phosphatase 153 H, Total Creatine Kinase 45, Troponin I High Sens 13, Total Protein 6.9, Albumin 1.7 L, Globulin 5.2 H, Albumin/Globulin Ratio 0.3 L, Valproic Acid 91 01/26/24 08:00: Urine Color [place], Urine Clarity Clear, Urine pH 6.0, Ur Specific [place] 1.020, Urine Protein 500 H, Urine Glucose (UA) 50 H, Urine Ketones 5 H, Urine Occult Blood 25 H, Urine Nitrite Positive H, Urine Bilirubin 3 H, Urine Urobilinogen Normal, Ur Leukocyte Esterase 100 H, Urine RBC 0 SEEN, Urine WBC 0-5 SEEN, Ur Squamous Epith Cells 0-5 SEEN, Urine Bacteria 2+, Urine Mucus 0 SEEN 01/26/24 08:05: WBC 11.8 H, RBC 2.84 L, Hgb 8.3 L, Hct 28.6 L, MCV 100.7 H, MCH 29.2, MCHC 29.0 L, RDW Std Deviation 72.8 H, RDW Coeff of Silvia 19.7 H, Plt Count 203, MPV 10.6, Immature Gran % (Auto) 3.200 H, Neut % (Auto) 82.9 H, Lymph % (Auto) 7.7 L, [place] % (Auto) 5.4, Eos % (Auto) 0.1, Baso % (Auto) 0.7, Absolute Neuts (auto) 9.8 H, Absolute Lymphs (auto) 0.90, Nucleated RBC % 0.5, Anisocytosis 2+, PT 33.8 H, INR 3.4, APTT 40.9 H, Lactic Acid 4.9 H* 01/26/24 13:07: Lactic Acid 2.6 H*, Ammonia 29.0 01/26/24 13:10: MRSA (PCR) POSITIVE H 01/26/24 13:12: Urine Opiates Screen NEGATIVE, Urine Methadone Screen NEGATIVE, Ur Barbiturates Screen NEGATIVE, Ur Phencyclidine Scrn NEGATIVE, Ur Amphetamines Screen NEGATIVE, MDMA (Ecstasy) Screen NEGATIVE, U Benzodiazepines Scrn NEGATIVE, Urine Cocaine Screen NEGATIVE, U Cannabinoids Screen NEGATIVE, Ur Drug Screen Comment 01/26/24 14:00: Hgb 8.2 L, Blood Type O POSITIVE, Antibody Screen NEGATIVE 01/26/24 19:20: Hgb 8.2 L 01/27/24 03:15: WBC 10.3, RBC 2.57 L, Hgb 7.5 L, Hct 24.3 L, MCV 94.6 H D, MCH 29.2, MCHC 30.9 L D, RDW Std Deviation 68.1 H, RDW Coeff of Silvia 19.8 H, Plt Count 173, MPV 10.1, Immature Gran % (Auto) 0.700, Neut % (Auto) 83.9 H, Lymph % (Auto) 8.7 L, [place] % (Auto) 5.6, Eos % (Auto) 0.6, Baso % (Auto) 0.5, Absolute Neuts (auto) 8.7 H, Absolute Lymphs (auto) 0.90, Nucleated RBC % 0.3, Sodium Cancelled, Potassium Cancelled, Chloride Cancelled, Carbon Dioxide Cancelled, Anion Gap Cancelled, BUN Cancelled, Creatinine Cancelled, Estim Creat Clear Calc Cancelled, Est GFR (MDRD) Af Amer Cancelled, Est GFR (MDRD) Non-Af Cancelled, BUN/Creatinine Ratio Cancelled, Glucose Cancelled, Calcium Cancelled, Phosphorus 4.0, Magnesium 2.0, TSH 5.55 H 01/27/24 05:58: Sodium 137, Potassium 3.3 L, Chloride 99, Carbon Dioxide 27.0, Anion Gap 11, BUN 48 H, Creatinine 4.72 H, Estim Creat Clear Calc 16.54, Est GFR (MDRD) Af Amer 16 L, Est GFR (MDRD) Non-Af 13 L, BUN/Creatinine Ratio 10.2, Glucose 98, Calcium 8.2 L Micro: Microbiology 01/26/24 08:10 Sputum, Induced/Lukens Gram Stain - Final 01/26/24 08:24 Stool Stool Occult Blood (EMILY) - Final Occult Blood Positive ABG Data ABG results: ABG 01/26/24 09:10 Specimen Type ART Sample Site L Radial pH 7.38 Bicarbonate Actual 25.1 Total CO2 27 Base Excess 0 O2 Saturation 95 O2 % 100.0 ABG pCO2 43.0 ABG pO2 77 Richi Test Positive Respiration Rate 400 O2 Delivery Device Adult Vent Vent Mode AC Tidal Volume 14.0 POC PEEP 5 Radiography Diagnostic Testing: Radiology Impression Brain CT 01/26/24 07:41 IMPRESSION: Chronic involutional changes of the brain. Electronically Signed: Michael Allen MD at 9:19 EDT , Chest X-Ray 01/26/24 07:46 IMPRESSION: The tip of the endotracheal tube is at the origin of the left mainstem bronchus. This should be withdrawn approximately 2.5 cm. Volume loss and possible atelectasis with infiltrate in the right lower lobe with small right pleural effusion. Electronically Signed: Michael Allen MD at 9:21 EDT , Cervical Spine CT 01/26/24 12:40 IMPRESSION: Multilevel degenerative changes, as described above. Electronically Signed: Mihcael Allen MD at 13:17 EDT , Echocardiogram 01/26/24 13:48 Interpretation Summary The estimated ejection fraction is 55 %. Unable to assess diastolic dysfunction. Trivial mitral valve insufficiency. Ordering Physician: Ashtyn Canseco Referring Physician: Amish Han Performed By: Odette Pineda RDCS and Student Physical Exam Const Constitutional Narrative: Intubated and mechanically ventilated. No ventilator dyssynchrony. General Appearance: cooperative HEENT normocephalic and head/scalp atraumatic Mouth: endotracheal tube in place Eyes conjunctivae normal and no scleral icterus Neck supple General: trachea midline Chest inspection of chest normal Resp normal respiratory effort Auscultation: diminished lung sounds; Negative for rales, rhonchi or wheezes Cardio regular rate, regular rhythm, S1 normal heart sound and S2 normal heart sound GI normal to inspection, nondistended, normoactive bowel sounds Extremity no clubbing, cyanosis or edema Skin no rashes or lesions noted Neuro Sensorium / Orientation: sedated on vent Charges/Coding Procedures Hospitalists Procedures: 35790 Critical Care 1st Hr
[2024-01-27] MEDS: 0.9% Normal Saline 1,000 ML IV.SOLN. 1000 ML OPERA.SITE (09:00)
[2024-01-27] MEDS: PureFlow B 4K Dialysis Soln 1 BAG BAG 6 BAG PF (09:00)
[2024-01-27 09:45] LABS: Hemoglobin 8.1 g/dL (13.0-16.5)
[2024-01-27] MEDS: Miconazole Nitrate 43 GM Bottle 1 APPLIC TOPICAL ×2 (10:24→20:41)
[2024-01-27] MEDS: BRIMONIDINE 0.2% 5ML BOTTLE 1 DRP RIGHT EYE ×2 (10:24→20:43)
[2024-01-27] MEDS: Piperacil/Tazobactam 3.375 GM in 0.9% Normal Saline (50mL MB+) 50 ML IV ×2 (10:26→20:50)
[2024-01-27] MEDS: Pantoprazole Sodium 40 MG in 0.9% Normal Saline (100mL MB+) 100 ML 330 MG IV ×2 (10:26→20:40)
[2024-01-27] MEDS: Chlorhexidine 15 ML PO ×2 (10:28→20:42)
--- NOTE | 2024-01-27 10:42 | PN.HOSP_ITS ---
Reason for Visit Reason for Visit: CPA/altered mental status Subjective Subjective No significant issues overnight. Patient currently on dialysis. Remains able to follow commands and seems to be neurologically intact. Objective Data Objective Data Vital Signs: Vital Signs Temp Pulse Resp BP Pulse Ox O2 Del Method FiO2 97.1 F L 132 H 14 88/53 L 99 Mechanical Ventilator 100 01/27/24 08:17 01/27/24 10:30 01/27/24 10:30 01/27/24 10:30 01/27/24 10:30 01/27/24 10:30 01/27/24 10:30 Oxygen Delivery Method Mechanical Ventilator Weight: 83.869 kg Body Mass Index (BMI) 26.4 Intake & Output: Intake and Output for Last 24 Hours 01/25/24 01/26/24 01/27/24 23:59 23:59 23:59 Intake Total 829.17 / 864.17 205.00 / 205.00 Output Total 185 / 185 Balance 644.17 / 679.17 205.00 / 205.00 Lab / Micro Data 01/27/24 09:38 01/27/24 05:58 Labs: Laboratory Results - last 24 hr 01/26/24 13:07: Lactic Acid 2.6 H*, Ammonia 29.0 01/26/24 13:10: MRSA (PCR) POSITIVE H 01/26/24 13:12: Urine Opiates Screen NEGATIVE, Urine Methadone Screen NEGATIVE, Ur Barbiturates Screen NEGATIVE, Ur Phencyclidine Scrn NEGATIVE, Ur Amphetamines Screen NEGATIVE, MDMA (Ecstasy) Screen NEGATIVE, U Benzodiazepines Scrn NEGATIVE, Urine Cocaine Screen NEGATIVE, U Cannabinoids Screen NEGATIVE, Ur Drug Screen Comment 01/26/24 14:00: Hgb 8.2 L, Blood Type O POSITIVE, Antibody Screen NEGATIVE 01/26/24 19:20: Hgb 8.2 L 01/27/24 03:15: WBC 10.3, RBC 2.57 L, Hgb 7.5 L, Hct 24.3 L, MCV 94.6 H D, MCH 29.2, MCHC 30.9 L D, RDW Std Deviation 68.1 H, RDW Coeff of Silvia 19.8 H, Plt Count 173, MPV 10.1, Immature Gran % (Auto) 0.700, Neut % (Auto) 83.9 H, Lymph % (Auto) 8.7 L, [place] % (Auto) 5.6, Eos % (Auto) 0.6, Baso % (Auto) 0.5, Absolute Neuts (auto) 8.7 H, Absolute Lymphs (auto) 0.90, Nucleated RBC % 0.3, Sodium Cancelled, Potassium Cancelled, Chloride Cancelled, Carbon Dioxide Cancelled, Anion Gap Cancelled, BUN Cancelled, Creatinine Cancelled, Estim Creat Clear Calc Cancelled, Est GFR (MDRD) Af Amer Cancelled, Est GFR (MDRD) Non-Af Cancelled, BUN/Creatinine Ratio Cancelled, Glucose Cancelled, Calcium Cancelled, Phosphorus 4.0, Magnesium 2.0, TSH 5.55 H 01/27/24 05:58: Sodium 137, Potassium 3.3 L, Chloride 99, Carbon Dioxide 27.0, Anion Gap 11, BUN 48 H, Creatinine 4.72 H, Estim Creat Clear Calc 16.54, Est GFR (MDRD) Af Amer 16 L, Est GFR (MDRD) Non-Af 13 L, BUN/Creatinine Ratio 10.2, Glucose 98, Calcium 8.2 L 01/27/24 09:38: Hgb 8.1 L Micro: Microbiology 01/26/24 08:10 Sputum, Induced/Lukens Gram Stain - Final 01/26/24 08:10 Sputum, Induced/Lukens Respiratory Culture - Preliminary Gram negative mona Streptococcus group C 01/26/24 08:00 Urine, Catheterized Urine Culture - Preliminary Culture exhibits no growth. 01/26/24 08:24 Stool Stool Occult Blood (EMILY) - Final Occult Blood Positive Radiography Diagnostic Testing: Radiology Impression Cervical Spine CT 01/26/24 12:40 IMPRESSION: Multilevel degenerative changes, as described above. Electronically Signed: Michael Allen MD at 13:17 EDT , Echocardiogram 01/26/24 13:48 Interpretation Summary The estimated ejection fraction is 55 %. Unable to assess diastolic dysfunction. Trivial mitral valve insufficiency. Ordering Physician: Ashtyn Canseco Referring Physician: Amish Han Performed By: Odette Pineda RDCS and Student Physical Exam Const alert, no apparent distress, average body habitus and well nourished; Negative for healthy appearing Constitutional Narrative: Middle-aged, white male, lying in bed on a ventilator, currently on dialysis and dialysis nurses at bedside, patient is alert and able to follow commands fairly consistently, currently appears comfortable, does not appear toxic General Appearance: cooperative HEENT normocephalic, head/scalp atraumatic and moist oral mucous membranes HEENT Narrative: ET tube and OG in place Eyes Negative for conjunctivae normal Resp No normal respiratory effort, no retractions, no use of accessory muscles and No clear to auscultation bilaterally Resp Narrative: Few scattered crackles however improved in last 24 hours Auscultation: crackles; Negative for rhonchi or wheezes Cardio S1 normal heart sound, S2 normal heart sound, no murmurs, no rub, no gallops and no clicks Cardio Narrative: Irregularly irregular rhythm with tachycardia GI normal to inspection, nondistended, normoactive bowel sounds, soft to palpation and non-tender Extremity Extremity Narrative: Remains with doughy pitting edema up to his hips bilaterally, no cyanosis or clubbing, pedal and radial pulses were 2+ bilaterally Skin Skin Narrative: Skin is pale but no significant lesions noted Neuro moves all extremities Neuro Narrative: Follows commands consistently and able to move all extremities with no obvious focal deficits at this time Sensorium / Orientation: awake and alert Speech: Negative for speech normal Psych Psych Narrative: Difficult to assess as patient is intubated however patient appears calm currently Assessment & Plan Assessment/Plan (1) Cardiopulmonary arrest: (2) Acute hypoxic respiratory failure: (3) Bilateral pleural effusion: (4) Medical non-compliance: (5) Transaminitis: (6) GI bleed: (7) Leukocytosis: (8) Hypotension: (9) Lactic acidosis: PLAN: Plan Cardiopulmonary arrest -etiology is unclear however highly suspect it was related to hypoxia and hypercapnia -Per report was pulseless at the senior care facility however no documentation of rhythm and ROSC was achieved prior to EMS arrival -Cardiac enzyme was normal on arrival -Echocardiogram performed and showed an EF of 55% and trivial mitral valve insufficiency with no wall motion abnormality. -Patient is alert and inconsistently following commands at this time Acute on chronic hypoxic respiratory failure secondary to volume overload secondary to acute HFpEF/and polymicrobial pneumonia -Appears that he is on 2 L at baseline based on previous documentation from last admission -Ventilator has been weaned to 25% -Continue spontaneous breathing trials and push for more fluid removal prior to extubation to better ensure success -Marked a gradient on presentation with a pO2 of 77 on 100% FiO2 -Chest x-ray shows bilateral pleural effusions right appears to be greater than left and this would be consistent with incomplete dialysis -Dialysis per nephrology -Will fluid restrict is much as possible -Sputum culture shows gram-negative mona and group C strep -Blood cultures are pending -Continue vancomycin and Zosyn until organisms are identified -MRSA PCR was positive Lactic acidosis -Resolved History of dysphagia -Will need speech therapy consultation after extubation Chronic anemia -hemoglobin stable and actually bit higher than he had been trending recently -has history of recent GI bleed -Guaiac was positive however in light of hemoglobin stability will cycle hemoglobin and monitor closely -Hemoglobin remained stable despite positive guaiac so would recommend holding off on EGD at this time -If hemoglobin stable tomorrow we will restart Eliquis Positive guaiac stool -EGD was performed on 11/04/2023 at which time patient was found to have a normal esophagus, oozing gastric ulcers that were injected, treated with heater probe, and clipped and no gross lesions in the duodenum -Guaiac was positive in the emergency department however hemoglobin is currently stable -Hemoglobin has been stable--> repeat CBC in a.m. -Continue Protonix 40 mg IV push twice daily -Has been on Protonix 40 mg p.o. twice daily as an outpatient -If remains stable could probably transition back to 40 mg daily as he has been treated for 8 weeks -If hemoglobin stable tomorrow we will reinitiate Eliquis Transaminitis -likely related to the above -will trend -coags are abnormal however patient is on Eliquis at baseline for his history of A-fib -Will perform further workup if enzymes do not improve with time -Will continue atorvastatin for now but if marked increase will hold Bilateral pleural effusions -right appears greater than left -Will try to see if we can perform full dialysis sessions to pull fluid and if does not improve may need thoracentesis -highly suspect transudative based on data currently available End-stage renal disease on dialysis -Patient has been noncompliant receiving incomplete sessions of dialysis -No need for urgent or emergent dialysis at this time -Continue home calcitriol -Consult nephrology for dialysis Hypertension -hold amlodipine -continue metoprolol with parameters for blood pressure and heart rate Paroxysmal atrial fibrillation with RVR -currently in A-fib -Continue home metoprolol with hold parameters -Eliquis is on hold due to guaiac positive stool -Restart tomorrow if hemoglobin stable Hyperlipidemia -Okay to continue atorvastatin for now -If transaminases markedly worsen will hold History of gastric ulcers/GERD -See above -IV Protonix twice daily Seizure disorder -Continue valproic acid Acute on chronic heart failure with preserved ejection fraction/pulmonary hypertension/diastolic dysfunction -Echocardiogram done on 08/02/2023 showed an EF of 60% with stage III diastolic dysfunction and mild concentric LVH with moderate pulmonary hypertension showing pulmonary pressures at 65 mmHg -Manage volume status with dialysis -Pie Filling Mixer following and dialysis running today Carotid artery stenosis -Dopplers done in 07/2023 show right internal carotid artery with 50 to 69% stenosis/left internal carotid artery with 50 to 69% stenosis and patent antegrade vertebral arteries with slight progression since 2021 -Continue aggressive management of secondary risk factors as able History of stroke -Probably cardioembolic with history -Eliquis needs to be on hold due to guaiac positive stools and history of gastric ulcer -Will restart Eliquis tomorrow if hemoglobin stable -Continue to control secondary risk factors -Baseline deficits are left-sided hemiparesis DM-2 -A1c was 5.0 in October however patient was anemic at that time -Fasting blood sugar on admission was 88 -will follow fasting sugars and start SSI/Accu-Cheks if consistently greater than 140 -Patient is currently n.p.o. Anxiety/depression -patient is on no current regimen for treatment DVT prophylaxis -SCDs for now -Open will restart Eliquis if hemoglobin remained stable but chemoprophylaxis on hold in light of positive guaiac stool CODE STATUS -Full code Charges/Coding Visit Charges Inpatient E&M: 22516 Subs Hosp L2
[2024-01-27] MEDS: Heparin 10,000 UNITS/10 ML Vial IV (12:07)
[2024-01-27] MEDS: Divalproex Sodium 125 MG SPRINKLE 1000 MG NG ×2 (12:09→20:42)
[2024-01-27] MEDS: Metoprolol Tartrate 25 MG Tablet NG (12:10)
--- NOTE | 2024-01-27 12:52 | PCM.PN.REN ---
Subjective Subjective Following for ESRD. Patient remains on ventilator, but he appears to be more awake. Patient was dialyzed earlier today. Objective Data Objective Data Vital Signs: Vital Signs Temp Pulse Resp BP Pulse Ox O2 Del Method FiO2 97 F L 125 H 15 110/69 98 Mechanical Ventilator 25 01/27/24 12:00 01/27/24 12:10 01/27/24 12:00 01/27/24 12:10 01/27/24 12:00 01/27/24 12:00 01/27/24 12:00 Oxygen Delivery Method Mechanical Ventilator Weight: 82 kg Body Mass Index (BMI) 25.9 Intake & Output: Intake and Output for Last 24 Hours 01/25/24 01/26/24 01/27/24 23:59 23:59 23:59 Intake Total 829.17 / 864.17 390.00 / 390.00 Output Total 185 / 185 1280 / 1280 Balance 644.17 / 679.17 -890.00 / -890.00 Lab / Micro Data 01/27/24 09:38 01/27/24 05:58 Labs: Laboratory Results - last 24 hr 01/26/24 13:07: Lactic Acid 2.6 H*, Ammonia 29.0 01/26/24 13:10: MRSA (PCR) POSITIVE H 01/26/24 13:12: Urine Opiates Screen NEGATIVE, Urine Methadone Screen NEGATIVE, Ur Barbiturates Screen NEGATIVE, Ur Phencyclidine Scrn NEGATIVE, Ur Amphetamines Screen NEGATIVE, MDMA (Ecstasy) Screen NEGATIVE, U Benzodiazepines Scrn NEGATIVE, Urine Cocaine Screen NEGATIVE, U Cannabinoids Screen NEGATIVE, Ur Drug Screen Comment 01/26/24 14:00: Hgb 8.2 L, Blood Type O POSITIVE, Antibody Screen NEGATIVE 01/26/24 19:20: Hgb 8.2 L 01/27/24 03:15: WBC 10.3, RBC 2.57 L, Hgb 7.5 L, Hct 24.3 L, MCV 94.6 H D, MCH 29.2, MCHC 30.9 L D, RDW Std Deviation 68.1 H, RDW Coeff of Silvia 19.8 H, Plt Count 173, MPV 10.1, Immature Gran % (Auto) 0.700, Neut % (Auto) 83.9 H, Lymph % (Auto) 8.7 L, [place] % (Auto) 5.6, Eos % (Auto) 0.6, Baso % (Auto) 0.5, Absolute Neuts (auto) 8.7 H, Absolute Lymphs (auto) 0.90, Nucleated RBC % 0.3, Sodium Cancelled, Potassium Cancelled, Chloride Cancelled, Carbon Dioxide Cancelled, Anion Gap Cancelled, BUN Cancelled, Creatinine Cancelled, Estim Creat Clear Calc Cancelled, Est GFR (MDRD) Af Amer Cancelled, Est GFR (MDRD) Non-Af Cancelled, BUN/Creatinine Ratio Cancelled, Glucose Cancelled, Calcium Cancelled, Phosphorus 4.0, Magnesium 2.0, TSH 5.55 H 01/27/24 05:58: Sodium 137, Potassium 3.3 L, Chloride 99, Carbon Dioxide 27.0, Anion Gap 11, BUN 48 H, Creatinine 4.72 H, Estim Creat Clear Calc 16.54, Est GFR (MDRD) Af Amer 16 L, Est GFR (MDRD) Non-Af 13 L, BUN/Creatinine Ratio 10.2, Glucose 98, Calcium 8.2 L 01/27/24 09:38: Hgb 8.1 L Micro: Microbiology 01/26/24 08:10 Sputum, Induced/Lukens Gram Stain - Final 01/26/24 08:10 Sputum, Induced/Lukens Respiratory Culture - Preliminary Gram negative mona Streptococcus group C 01/26/24 08:00 Urine, Catheterized Urine Culture - Preliminary Culture exhibits no growth. 01/26/24 08:24 Stool Stool Occult Blood (EMILY) - Final Occult Blood Positive Radiography Diagnostic Testing: Radiology Impression Cervical Spine CT 01/26/24 12:40 IMPRESSION: Multilevel degenerative changes, as described above. Electronically Signed: Michael Allen MD at 13:17 EDT , Echocardiogram 01/26/24 13:48 Interpretation Summary The estimated ejection fraction is 55 %. Unable to assess diastolic dysfunction. Trivial mitral valve insufficiency. Ordering Physician: Ashtyn Canseco Referring Physician: Amish Han Performed By: Odette Pineda RDCS and Student Physical Exam Narrative General: On ventilator, awake and follows simple commands HEENT: Normocephalic, atraumatic. Intubated, mucous membrane. Neck: Supple, no JVD. Trachea is midline. No thyromegaly or lymphadenopathy. Cardiovascular: Irregularly irregular S1, S2. Tachycardic, no rubs, murmurs, or gallops. Respiratory: Lungs are coarse auscultation bilaterally. Abdomen: Normal bowel sounds, soft, nontender, no guarding or rebound, no organomegaly. Extremities: No clubbing, cyanosis, or edema. Assessment & Plan Assessment/Plan (1) ESRD (end stage renal disease) on dialysis: (2) Acute hypoxic respiratory failure: PLAN: Plan Impression/Plan: The patient is a 63-year-old male with past history of ESRD, type 2 diabetes mellitus, hypertension, stroke, atrial fibrillation, seizure disorder, and hyperlipidemia. Patient was admitted to the hospital on 01/26/2024 because of PEA arrest at [facility] with acute hypoxic/hypercapnic respiratory failure requiring ventilator support. Nephrology is following for ESRD and dialysis need. ESRD. Patient usually dialyzes on a 4 days/week schedule with [facility] machine at [facility] (Tuesday, Tuesday, and Tuesday). Patient was dialyzed on 01/24/2024. I supervised the dialysis treatment today. We did remove 1.28 L of fluid with ultrafiltration. Further ultrafiltration was limited by soft BP. We will keep patient on MWF schedule for hemodialysis while he is admitted to the hospital. However, we will reassess patient again over the weekend for any dialysis need. Acute hypoxic respiratory failure in the setting of PEA arrest. Patient remains ventilator dependent. Management of ventilator as per assisted living executive director. As discussed above, we removed 1.28 L with ultrafiltration. Amount of fluid removed was limited by hypotension. Will reassess patient again tomorrow for isolated ultrafiltration although it is difficult to remove there is space fluid that is already formed such as pleural effusion directly particularly in patient with marked hypoalbuminemia. Nephrology plan is discussed with Dr. Thelma Canseco.
--- NOTE | 2024-01-27 14:27 | CASEMGMT ---
SW spoke with patient's . Introduced self and role at [facility]. Patient's confirmed that is the plan. Patient's did have some concerns regarding patient's roommate at [facility] and the cleanliness. SW passed along these concerns to [facility] and also sent them updates. Plan: d/c back to [facility] when medically ready. Angie Stewart CADDYMASTER JADA
[2024-01-27] MEDS: Menthol/Lanolin/Calamine/Znox 113 GM Tube 1 APPLIC TOPICAL ×2 (14:36→20:40)
[2024-01-27] MEDS: Vancomycin HCl 750 MG in 0.9% Normal Saline (250mL Bag) 250 ML 250 MG IV (14:36)
--- NOTE | 2024-01-27 17:07 | PN.GI_ITS ---
Subjective Subjective Patient continues to be afebrile and does wake up. He completed hemodialysis today. He is responsive and does not seem to have severe neurologic defects. Objective Data Objective Data Vital Signs: Vital Signs Temp Pulse Resp BP Pulse Ox O2 Del Method FiO2 97.1 F L 111 H 15 93/69 99 Mechanical Ventilator 25 01/27/24 16:00 01/27/24 16:00 01/27/24 16:00 01/27/24 16:00 01/27/24 16:00 01/27/24 16:00 01/27/24 16:00 Oxygen Delivery Method Mechanical Ventilator Weight: 180 lb 12.465 oz Body Mass Index (BMI) 25.9 Intake & Output: Intake and Output for Last 24 Hours 01/25/24 01/26/24 01/27/24 23:59 23:59 23:59 Intake Total 829.17 / 864.17 795.00 / 795.00 Output Total 185 / 185 1280 / 1280 Balance 644.17 / 679.17 -485.00 / -485.00 Lab / Micro Data 01/27/24 09:38 01/27/24 05:58 Labs: Laboratory Results - last 24 hr 01/26/24 19:20: Hgb 8.2 L 01/27/24 03:15: WBC 10.3, RBC 2.57 L, Hgb 7.5 L, Hct 24.3 L, MCV 94.6 H D, MCH 29.2, MCHC 30.9 L D, RDW Std Deviation 68.1 H, RDW Coeff of Silvia 19.8 H, Plt Count 173, MPV 10.1, Immature Gran % (Auto) 0.700, Neut % (Auto) 83.9 H, Lymph % (Auto) 8.7 L, Ross % (Auto) 5.6, Eos % (Auto) 0.6, Baso % (Auto) 0.5, Absolute Neuts (auto) 8.7 H, Absolute Lymphs (auto) 0.90, Nucleated RBC % 0.3, Sodium Cancelled, Potassium Cancelled, Chloride Cancelled, Carbon Dioxide Cancelled, Anion Gap Cancelled, BUN Cancelled, Creatinine Cancelled, Estim Creat Clear Calc Cancelled, Est GFR (MDRD) Af Amer Cancelled, Est GFR (MDRD) Non-Af Cancelled, BUN/Creatinine Ratio Cancelled, Glucose Cancelled, Calcium Cancelled, Phosphorus 4.0, Magnesium 2.0, TSH 5.55 H 01/27/24 05:58: Sodium 137, Potassium 3.3 L, Chloride 99, Carbon Dioxide 27.0, Anion Gap 11, BUN 48 H, Creatinine 4.72 H, Estim Creat Clear Calc 16.54, Est GFR (MDRD) Af Amer 16 L, Est GFR (MDRD) Non-Af 13 L, BUN/Creatinine Ratio 10.2, Glucose 98, Calcium 8.2 L 01/27/24 09:38: Hgb 8.1 L Micro: Microbiology 01/26/24 07:45 Blood Culture (Wb) - Left Foot Blood Culture - Preliminary 01/26/24 08:10 Sputum, Induced/Lukens Gram Stain - Final 01/26/24 08:10 Sputum, Induced/Lukens Respiratory Culture - Preliminary Gram negative mona Streptococcus group C 01/26/24 08:00 Urine, Catheterized Urine Culture - Preliminary Culture exhibits no growth. 01/26/24 08:24 Stool Stool Occult Blood (EMILY) - Final Occult Blood Positive Physical Exam Narrative General: On ventilator, awake and follows simple commands HEENT: Normocephalic, atraumatic. Intubated, mucous membrane. Neck: Supple, no JVD. Trachea is midline. No thyromegaly or lymphadenopathy. Cardiovascular: Irregularly irregular S1, S2. Tachycardic, no rubs, murmurs, or gallops. Respiratory: Lungs are coarse auscultation bilaterally. Abdomen: Normal bowel sounds, soft, nontender, no guarding or rebound, no organomegaly. Extremities: No clubbing, cyanosis, or edema. Assessment & Plan Assessment/Plan (1) Acute respiratory failure: QUALIFIERS: Respiratory failure complication: hypoxia Qualified Code(s): J96.01 - Acute respiratory failure with hypoxia (2) End stage renal disease: (3) Pneumonia: PLAN: Plan Patient is a 63-year-old male who presented to [facility] ED with worsening dyspnea and hypoxia. Intubated in the field secondary to PEA arrest. Currently intubated and experienced blood from OG tube. Acute on chronic hypoxic respiratory failure Suspect multifactorial in setting of significant metabolic acidosis from missed HD sessions. , He was previously intubated on 10/29 and remained intubated until 11/05. Was successfully extubated to nasal cannula on 11/05. He is currently intubated. He is being seen by coin machine supervisor and nephrology. ? Salvage Laborer followed. Currently stable on 2 L nasal cannula at rest, continue to wean oxygen as able. Acute on chronic anemia secondary to upper GI bleed Hemoglobin 8.3 on admit, down trended to 8.2 shortly after with IV fluids. No overt signs of bleeding noted. Baseline hemoglobin appears to be around 9-10. Iron studies show ferritin 1852, consistent with anemia of chronic disease. EGD on 11/03 showed oozing gastric ulcers with pigmented material that were injected, treated with heater probe and clipped. He will probably end up needing a repeat upper endoscopy. Recommend just Protonix 40 mg IV every 12 hours at this time. 01/27/2024-his hemoglobin seems to be stable. It is up from 7.5-8.1. Normal blood was seen through the OG tube. He does have history of peptic ulcer disease. He is doing well on PPI therapy. No concern regarding PPIs and his kidney function because he is on hemodialysis. Patient will need repeat upper endoscopy when medically stable. Charges/Coding Visit Charges Inpatient E&M: 36558 Subs Hosp L3
[2024-01-27] MEDS: Latanoprost 0.005% 1 Bottle 1 DRP RIGHT EYE (20:42)
[2024-01-27] MEDS: 0.9% Normal Saline (500mL Bag) 500 ML 999 ML IV (23:50)
[2024-01-27 23:59] LABS: Bedside Glucose 75 mg/dL (74-106)
[2024-01-28] VITALS (56 sets, daily range): BP systolic 74–135; BP diastolic 52–86; PULSE 77–131; RESP 8–17; TEMP 36.1–36.6; O2SAT 93–99; BMI 26.3
[2024-01-28] MEDS: Norepinephrine 8 MG in 0.9% Normal Saline (250mL Bag) 242 ML 9.4 MG CONT INF (01:15)
[2024-01-28 03:20] LABS: Absolute Lymphocyte Count 0.95 X10^3/uL (0.83-4.51); Absolute Neutrophil Count 14.4 X10^3/uL (2.0-7.7); Basophil# 0.11 X10^3/uL; Basophil% 0.7 % (0-1); Eosinophil# 0.16 X10^3/uL; Hemoglobin 8.9 g/dL (13.0-16.5); Lymphocyte # 0.95 X10^3/ul (0.83-4.51); Lymphocyte % 5.7 % (19-41); Mean Corp Hgb Conc 29.7 g/dL (32-36); Mean Corpuscular Volume 97.7 fL (80-94); Mean Platelet Vol. 9.6 fl (6.2-12.0); Monocyte# 1.02 X10^3/uL; Monocyte% 6.1 % (0-10); NRBC Flagged by Analyzer 0.2 % (0-5); Neutrophil # 14.35 X10^3/uL (2.7-7.7); Neutrophil % 85.5 % (47-70); POSITIVE MORPHOLOGY YES; Platelet Count 230 K/mm3 (150-450); RBC Distribution Width CV 20.3 % (11.6-14.6); RBC Distribution Width SD 72.1 fl (35.1-43.9); Red Blood Count 3.07 M/mm3 (4.6-6.2); White Blood Count 16.8 K/mm3 (4.4-11.0)
[2024-01-28 03:34] LABS: Differential Indicated SCAN CRITERIA MET
[2024-01-28 03:44] LABS: Differential Comment SCANNED
[2024-01-28 03:57] LABS: ALB/GLOB Ratio 0.4 RATIO (0.9-2.4); AST(SGOT) 191 U/L (15-37); Alanine Aminotransfer ALT/SGPT 88 U/L (16-61); Albumin, Serum 1.6 g/dL (3.2-5.0); Alkaline Phosphatase 120 U/L (45-117); Anion Gap 14 (5-15); BUN 35 mg/dL (7-18); BUN/Creat Ratio 10.3 RATIO (10-20); Calcium,Total 7.9 mg/dL (8.5-10.1); Chloride 103 mmol/L (98-107); EST Glomerular Filtration Rate 20 mL/min (>60); Est Glom Filt Rate - Afr Amer 24 mL/min (>60); Estimated Creatinine Clearance 22.96 ml/min; Globulin 4.4 g/dL (2.2-4.2); Glucose 79 mg/dL (74-106); Potassium 3.3 mmol/L (3.5-5.1); Sodium Level 137 mmol/L (136-145); T4 Free Direct 0.99 ng/dL (0.76-1.46)
[2024-01-28] MEDS: 0.9% Saline Lock 10 ML Syringe IV ×2 (05:38→20:32)
[2024-01-28] MEDS: Menthol/Lanolin/Calamine/Znox 113 GM Tube 1 APPLIC TOPICAL ×3 (05:38→20:22)
[2024-01-28] MEDS: CHLORHEXIDINE GLUC 2% CLOTH 1 EACH TOWELETTE TOPICAL (05:38)
[2024-01-28 06:31] LABS: Bedside Glucose 80 mg/dL (74-106)
[2024-01-28] MEDS: Amiodarone 150 MG in Dextrose 5%-Water (100mL Bag) 100 ML 600 MG IV BOLUS (09:33)
[2024-01-28] MEDS: Chlorhexidine 15 ML PO ×2 (09:33→20:23)
[2024-01-28] MEDS: Potassium Chloride Oral Soln 20 MEQ/15 ML UDC 40 MEQ GT (09:33)
[2024-01-28] MEDS: APIXABAN 5 MG TABLET GT ×2 (09:34→20:22)
[2024-01-28] MEDS: Divalproex Sodium 125 MG SPRINKLE 1000 MG NG ×2 (09:34→20:22)
[2024-01-28] MEDS: BRIMONIDINE 0.2% 5ML BOTTLE 1 DRP RIGHT EYE ×2 (09:34→20:23)
[2024-01-28] MEDS: Miconazole Nitrate 43 GM Bottle 1 APPLIC TOPICAL ×2 (09:49→20:22)
[2024-01-28] MEDS: Amiodarone 360 MG in Dextrose 5% Viaflo Bag 192.8 ML 33.3 MG CONT INF (10:13)
[2024-01-28] MEDS: Pantoprazole Sodium 40 MG in 0.9% Normal Saline (100mL MB+) 100 ML 330 MG IV ×2 (10:54→20:25)
--- NOTE | 2024-01-28 11:17 | PN.HOSP_ITS ---
Reason for Visit Reason for Visit: Cardiopulmonary arrest Subjective Subjective Pressures dipped overnight so low-dose Levophed was started by the cash teller overnight. Currently weaning. Sputum shows ESBL E. coli and group C strep. No fevers overnight. Objective Data Objective Data Vital Signs: Vital Signs Temp Pulse Resp BP Pulse Ox O2 Del Method FiO2 97.5 F L 103 H 8 L 84/64 L 93 Mechanical Ventilator 21 01/28/24 10:00 01/28/24 11:00 01/28/24 11:15 01/28/24 11:00 01/28/24 11:00 01/28/24 11:00 01/28/24 11:00 Oxygen Delivery Method Mechanical Ventilator Weight: 83.4 kg Body Mass Index (BMI) 26.3 Intake & Output: Intake and Output for Last 24 Hours 01/26/24 01/27/24 01/28/24 23:59 23:59 23:59 Intake Total 829.17 / 864.17 1059.25 / 1060.00 876.10 / 876.10 Output Total 185 / 185 1305 / 1305 5 / 5 Balance 644.17 / 679.17 -245.75 / -245.00 871.10 / 871.10 Lab / Micro Data 01/28/24 03:00 01/28/24 03:00 Labs: Laboratory Results - last 24 hr 01/27/24 23:41: POC Glucose 75 01/28/24 03:00: WBC 16.8 H, RBC 3.07 L, Hgb 8.9 L, Hct 30.0 L, MCV 97.7 H, MCH 29.0, MCHC 29.7 L, RDW Std Deviation 72.1 H, RDW Coeff of Silvia 20.3 H, Plt Count 230, MPV 9.6, Immature Gran % (Auto) 1.000 H, Neut % (Auto) 85.5 H, Lymph % (Auto) 5.7 L, [place] % (Auto) 6.1, Eos % (Auto) 1.0, Baso % (Auto) 0.7, Absolute Neuts (auto) 14.4 H, Absolute Lymphs (auto) 0.95, Nucleated RBC % 0.2, Differential Comment SCANNED, Sodium 137, Potassium 3.3 L, Chloride 103, Carbon Dioxide 20.0 L, Anion Gap 14, BUN 35 H, Creatinine 3.40 H, Estim Creat Clear Calc 22.96, Est GFR (MDRD) Af Amer 24 L, Est GFR (MDRD) Non-Af 20 L, BUN/Creatinine Ratio 10.3, Glucose 79, Calcium 7.9 L, Total Bilirubin 0.90, AST 191 H, ALT 88 H, Alkaline Phosphatase 120 H, Total Protein 6.0 L, Albumin 1.6 L, Globulin 4.4 H, Albumin/Globulin Ratio 0.4 L, Free T4 0.99 01/28/24 04:56: POC Glucose 80 Micro: Microbiology 01/26/24 08:00 Urine, Catheterized Urine Culture - Final Culture exhibits no growth. 01/26/24 08:10 Sputum, Induced/Lukens Gram Stain - Final 01/26/24 08:10 Sputum, Induced/Lukens Respiratory Culture - Preliminary ESBL Escherichia coli Streptococcus group C 01/26/24 07:45 Blood Culture (Wb) - Left Foot Blood Culture - Preliminary 01/26/24 08:24 Stool Stool Occult Blood (EMILY) - Final Occult Blood Positive Physical Exam Const alert, no apparent distress, average body habitus and well nourished; Negative for healthy appearing Constitutional Narrative: Middle-aged, white male, lying in bed on a ventilator, patient currently sedated and sleeping, appears comfortable, does not appear toxic HEENT normocephalic, head/scalp atraumatic and moist oral mucous membranes HEENT Narrative: ET tube and OG in place Eyes PERRL and EOMs intact bilaterally; Negative for conjunctivae normal Eyes Narrative: Mild conjunctival pallor bilaterally, no scleral icterus Neck no lymphadenopathy and supple Neck Narrative: Trachea midline, no thyroid enlargement Resp No normal respiratory effort, no retractions, no use of accessory muscles and clear to auscultation bilaterally Resp Narrative: Intubated Auscultation: Negative for crackles, rhonchi or wheezes Cardio S1 normal heart sound, S2 normal heart sound, no murmurs, no rub, no gallops and no clicks Cardio Narrative: Irregularly irregular rhythm with tachycardia GI normal to inspection, nondistended, normoactive bowel sounds, soft to palpation and non-tender Extremity Extremity Narrative: Remains with doughy pitting edema up to his hips bilaterally, no cyanosis or clubbing, pedal and radial pulses were 2+ bilaterally Skin no jaundice, no petechiae and no mottling Skin Narrative: Skin is pale but no significant lesions noted Neuro Neuro Narrative: Patient currently sedated Psych Psych Narrative: Difficult to assess as patient is intubated however patient appears calm currently Assessment & Plan Assessment/Plan (1) Cardiopulmonary arrest: (2) Acute hypoxic respiratory failure: (3) Bilateral pleural effusion: (4) Medical non-compliance: (5) Transaminitis: (6) GI bleed: (7) Leukocytosis: (8) Hypotension: (9) Lactic acidosis: PLAN: Plan Cardiopulmonary arrest -etiology is unclear however highly suspect it was related to hypoxia and hypercapnia -Per report was pulseless at the [facility] however no documentation of rhythm and ROSC was achieved prior to EMS arrival -Cardiac enzyme was normal on arrival -Echocardiogram performed and showed an EF of 55% and trivial mitral valve insufficiency with no wall motion abnormality. -Patient is alert and inconsistently following commands at this time Acute on chronic hypoxic respiratory failure secondary to volume overload secondary to acute HFpEF/and ESBL E. coli and group C strep pneumonia -Appears that he is on 2 L at baseline based on previous documentation from last admission -Ventilator has been weaned to 25% -Continue spontaneous breathing trials and push for more fluid removal prior to extubation to better ensure success -Marked a gradient on presentation with a pO2 of 77 on 100% FiO2 -Chest x-ray shows bilateral pleural effusions right appears to be greater than left and this would be consistent with incomplete dialysis -Dialysis per nephrology--> 3.5 L removed yesterday -Will fluid restrict is much as possible -Blood cultures show 1 of 2 positive for gram-positive cocci in clusters -Suspect staph epi however patient's MRSA PCR was positive so we will continue vancomycin until finalized -MRSA PCR was positive -Continue Vanco and will transition Zosyn to meropenem given ESBL producing organism -Consult infectious disease History of dysphagia -Will need speech therapy consultation after extubation Chronic anemia -hemoglobin stable and actually bit higher than he had been trending recently -has history of recent GI bleed -Guaiac was positive however in light of hemoglobin stability will cycle hemoglobin and monitor closely -Hemoglobin remained stable despite positive guaiac so would recommend holding off on EGD at this time -If hemoglobin stable tomorrow we will restart Eliquis Positive guaiac stool -EGD was performed on 11/04/2023 at which time patient was found to have a normal esophagus, oozing gastric ulcers that were injected, treated with heater probe, and clipped and no gross lesions in the duodenum -Guaiac was positive in the emergency department but hemoglobin remained stable and actually higher than it has been for a while at 8.9 today -restart eliquis and monitor hgb closely -Repeat CBC in a.m. -Continue Protonix 40 mg IV push twice daily -Has been on Protonix 40 mg p.o. twice daily as an outpatient -If remains stable could probably transition back to 40 mg daily as he has been treated for 8 weeks Transaminitis -likely related to the above -Trending down slowly -Okay to restart atorvastatin Bilateral pleural effusions -right appears greater than left -Will try to see if we can perform full dialysis sessions to pull fluid and if does not improve may need thoracentesis -highly suspect transudative based on data currently available End-stage renal disease on dialysis -Patient has been noncompliant receiving incomplete sessions of dialysis -No need for urgent or emergent dialysis at this time -Continue home calcitriol -Consult nephrology for dialysis Hypertension -hold amlodipine -continue metoprolol with parameters for blood pressure and heart rate Paroxysmal atrial fibrillation with RVR -Remains in A-fib with RVR -Stop metoprolol given hypotension and need for epinephrine -Start amiodarone drip with bolus -Eliquis was restarted will watch hemoglobin closely -Dose increased from 2.5 twice daily to 5 mg twice daily as patient does not meet criteria for dose reduction Hyperlipidemia -Restart atorvastatin History of gastric ulcers/GERD -See above -IV Protonix twice daily Seizure disorder -Continue valproic acid Acute on chronic heart failure with preserved ejection fraction/pulmonary hypertension/diastolic dysfunction -Echocardiogram done on 08/02/2023 showed an EF of 60% with stage III diastolic dysfunction and mild concentric LVH with moderate pulmonary hypertension showing pulmonary pressures at 65 mmHg -Manage volume status with dialysis -Destaticizer Feeder following and fluid removal per them as patient does not make much urine Carotid artery stenosis -Dopplers done in 07/2023 show right internal carotid artery with 50 to 69% stenosis/left internal carotid artery with 50 to 69% stenosis and patent antegrade vertebral arteries with slight progression since 2021 -Continue aggressive management of secondary risk factors as able History of stroke -Probably cardioembolic with history -Restart home Eliquis 5 mg twice daily -Continue to control secondary risk factors -Baseline deficits are left-sided hemiparesis DM-2 -A1c was 5.0 in October however patient was anemic at that time -Fasting blood sugar on admission was 88 -will follow fasting sugars and start SSI/Accu-Cheks if consistently greater than 140 -Patient is currently n.p.o. Anxiety/depression -patient is on no current regimen for treatment DVT prophylaxis -Restart Eliquis 5 mg twice daily CODE STATUS -Full code Charges/Coding Visit Charges Inpatient E&M: 63684 Subs Hosp L3
[2024-01-28] MEDS: Meropenem 500 MG in 0.9% Normal Saline (50mL MB+) 50 ML 100 MG IV (12:03)
[2024-01-28] MEDS: NEPRO TUBE FEED 1,000 ML 20 ML GT (13:31)
--- NOTE | 2024-01-28 14:18 | PN.CC_ITS ---
Objective Data Objective Data Vital Signs: Vital Signs Last response 3 Temperature 36.6 C 01/28/24 14:00 Temperature Source Temporal 01/28/24 14:00 Pulse Rate 114 H 01/28/24 14:00 Pulse Strength Weak (1+) 01/27/24 20:05 Respiratory Rate 14 01/28/24 14:00 Respiratory Effort Mechanically Ventilated 01/28/24 12:00 Respiratory Depth Normal 01/28/24 12:00 Respiratory Pattern Normal 01/28/24 12:00 Blood Pressure 97/70 01/28/24 14:00 Blood Pressure Mean 79 01/28/24 14:00 Blood Pressure Source Monitor 01/28/24 08:00 Blood Pressure Position Semi-Fowlers 01/28/24 14:00 Blood Pressure Location Right Arm 01/28/24 14:00 Pulse Ox 98 01/28/24 14:00 Oxygen Delivery Method Mechanical Ventilator 01/28/24 14:00 Fraction of Inspired Oxygen (FIO2) 21 01/28/24 14:00 I&O: I&O Last 24 Hours 3 01/27/24 01/28/24 01/28/24 23:59 11:59 23:59 Intake Total 729.25 / 1060.00 986.10 / 1055.55 69.45 / 1055.55 Output Total 1305 / 1305 5 / 10 5 / 10 Balance -575.75 / -245.00 981.10 / 1045.55 64.45 / 1045.55 I&O: Total Stay 3 01/26/24 07:39 thru 01/28/24 14:00 Intake Total 2943.97 Output Total 1500 Balance 1443.97 Current Meds Ordered / Administered: Current meds ordered / Administered 3 Generic Name Dose Route Start Last Admin Trade Name Freq PRN Reason Stop Dose Admin Acetaminophen 650 mg 01/26/24 15:36 Acetaminophen 650 Mg/20 Ml Udc NG Q6H PRN PRN Pain 1-10 Or Fever >100.7 Albuterol Sulfate 2.5 mg 01/26/24 13:48 Albuterol 2.5 Mg/3 Ml Vial.Neb. INHALATION Q2H PRN PRN SOB &/OR WHEEZING Apixaban 5 mg 01/28/24 10:00 01/28/24 09:34 Apixaban 5 Mg Tablet GT 5 mg BID FREDERIC Administration Atorvastatin Calcium 20 mg 01/28/24 22:00 Atorvastatin Calcium 20 Mg Tablet GT QHS FREDERIC Brimonidine Tartrate 1 drp 01/26/24 22:00 01/28/24 09:34 Brimonidine 0.2% 5ml Bottle RIGHT EYE 1 drp BID FREDERIC Administration Calamine/Phenol 1 applic 01/27/24 14:00 01/28/24 13:11 Menthol/Lanolin/Calamine/Znox 113 Gm Tube TOPICAL 1 applic TID FREDERIC Administration Protocol Calcitriol 0.25 mcg 01/27/24 10:00 01/27/24 11:49 Calcitriol 0.25 Mcg Capsule NG Not Given [id number] FREDERIC Chlorhexidine Gluconate 15 ml 01/27/24 10:25 01/28/24 09:33 Chlorhexidine 15 Ml PO 15 ml BID FREDERIC Administration Chlorhexidine Gluconate 1 each 01/28/24 10:00 01/28/24 05:38 Chlorhexidine Gluc 2% Cloth 1 Each Towelette TOPICAL 1 each DAILY FREDERIC Administration Divalproex Sodium 1,000 mg 01/26/24 22:00 01/28/24 09:34 Divalproex Sodium 125 Mg Sprinkle NG 1,000 mg BID FREDERIC Administration Fentanyl 100 mls @ 2.5 mls/hr 01/26/24 07:50 01/28/24 14:00 CONT INF 25 mcg/hr UD FREDERIC 2.5 mls/hr Titration Protocol 25 MCG/HR Sodium Chloride 250 mls @ 15 mls/hr 01/26/24 13:09 IV .[id number] PRN Additional IVPB Infusion Sodium Chloride 250 mls @ 15 mls/hr 01/26/24 13:09 IV .[id number] PRN Saline Flush Pantoprazole Sodium 40 mg/ 110 mls @ 330 mls/hr 01/26/24 22:00 01/28/24 11:14 Sodium Chloride IV Infused Q12 FREDERIC Infusion Vancomycin IV-PHARMACY TO DOSE 500 mls @ 250 mls/hr 01/26/24 13:48 1 each/ Sodium Chloride IV PRN PRN Rx to Dose Protocol Norepinephrine Bitartrate 8 mg 250 mls @ 9.375 mls/hr 01/28/24 01:05 01/28/24 14:00 / Sodium Chloride CONT INF 1 mcg/min .[id number] FREDERIC 1.9 mls/hr Titration Protocol 5 MCG/MIN Amiodarone HCl 360 mg/ 200 mls @ 33.333 mls/hr 01/28/24 09:00 01/28/24 10:13 Dextrose CONT INF 01/28/24 14:59 1 mg/min .Q6H FREDERIC 33.3 mls/hr Administration 1 MG/MIN Amiodarone HCl 360 mg/ 200 mls @ 16.667 mls/hr 01/28/24 15:00 Dextrose CONT INF 01/29/24 08:59 .Q12H FREDERIC 0.5 MG/MIN Meropenem 500 mg/ Sodium 60 mls @ 100 mls/hr 01/28/24 10:00 01/28/24 12:58 Chloride IV Infused Q24 FREDERIC Infusion Enteral Nutritional Formula 1,000 mls @ 50 mls/hr 01/28/24 11:30 01/28/24 13:31 Nepro Carb Steady GT 20 mls/hr .Q20H FREDERIC Administration Latanoprost 1 drp 01/26/24 22:00 01/27/24 20:42 Latanoprost 0.005% 1 Bottle RIGHT EYE 1 drp QHS FREDERIC Administration Melatonin 3 mg 01/26/24 13:48 Melatonin 3 Mg Tablet NG QHS PRN PRN INSOMNIA Metoprolol Tartrate 25 mg 01/27/24 10:00 01/27/24 12:10 Metoprolol Tartrate 25 Mg Tablet NG 25 mg DAILY [facility] Administration Protocol Miconazole Nitrate 1 applic 01/26/24 22:00 01/28/24 09:49 Miconazole Nitrate 43 Gm Bottle TOPICAL 1 applic BID [facility] Administration Protocol Ondansetron HCl 4 mg 01/26/24 13:48 Ondansetron 4 Mg/2 Ml Vial IV Q8H PRN PRN NAUSEA/VOMITING Senna/Docusate Sodium 2 tablet 01/26/24 13:48 Senna/Docusate Sodium 1 Tablet NG BID PRN Constipation Sodium Chloride 10 - 40 ml 01/26/24 13:09 01/28/24 05:38 0.9% Saline Lock 10 Ml Syringe IV 10 ml UD PRN Administration SALINE FLUSH Lab / Micro Data Attestation: I reviewed the patient's lab results. 01/28/24 03:00 01/28/24 03:00 Labs: Laboratory Results - last 24 hr 01/27/24 23:41: POC Glucose 75 01/28/24 03:00: WBC 16.8 H, RBC 3.07 L, Hgb 8.9 L, Hct 30.0 L, MCV 97.7 H, MCH 29.0, MCHC 29.7 L, RDW Std Deviation 72.1 H, RDW Coeff of Silvia 20.3 H, Plt Count 230, MPV 9.6, Immature Gran % (Auto) 1.000 H, Neut % (Auto) 85.5 H, Lymph % (Auto) 5.7 L, Hitchcock % (Auto) 6.1, Eos % (Auto) 1.0, Baso % (Auto) 0.7, Absolute Neuts (auto) 14.4 H, Absolute Lymphs (auto) 0.95, Nucleated RBC % 0.2, Differential Comment SCANNED, Sodium 137, Potassium 3.3 L, Chloride 103, Carbon Dioxide 20.0 L, Anion Gap 14, BUN 35 H, Creatinine 3.40 H, Estim Creat Clear Calc 22.96, Est GFR (MDRD) Af Amer 24 L, Est GFR (MDRD) Non-Af 20 L, BUN/Creatinine Ratio 10.3, Glucose 79, Calcium 7.9 L, Total Bilirubin 0.90, AST 191 H, ALT 88 H, Alkaline Phosphatase 120 H, Total Protein 6.0 L, Albumin 1.6 L, Globulin 4.4 H, Albumin/Globulin Ratio 0.4 L, Free T4 0.99 01/28/24 04:56: POC Glucose 80 Micro: Microbiology 01/26/24 08:05 Blood Culture (Wb) - Venous Blood Culture - Preliminary No growth in 48 hours. 01/26/24 07:45 Blood Culture (Wb) - Left Foot Blood Culture - Preliminary Coag Negative Staph 01/26/24 08:00 Urine, Catheterized Urine Culture - Final Culture exhibits no growth. 01/26/24 08:10 Sputum, Induced/Lukens Gram Stain - Final 01/26/24 08:10 Sputum, Induced/Lukens Respiratory Culture - Preliminary ESBL Escherichia coli Streptococcus group C ABG Data Attestation: I personally reviewed and interpreted this ABG as follows: Assessment and Plan . Assessment and plan: IMPRESSIONS: 1. Acute on chronic hypoxemic respiratory failure in the setting of cardiopulmonary arrest 2. End-stage renal disease on hemodialysis Nephrology following to assist with hemodialysis needs. 3. Acute on chronic anemia 4. History of hypertension/paroxysmal atrial fibrillation with RVR/history of gastric ulcers/unspecified seizure disorder/HFpEF/diabetes mellitus Suggest: 1. Continue assist-control mode mechanical ventilation. Wean FiO2 and PEEP to maintain saturations at or above 90%. 2. check SAT/ SBT today 3. Continue empiric antibiotics, pending finalized culture results. 4. Transfuse packed red blood cells if hemoglobin drops below 7 g/dL. 5. Continue PPI therapy. 6. Dialysis support per nephrology recommendations. 7. Norepinephrine as needed for BP drops after fluid removal in HD 8. amiodarone for RVR afib Critical Care 50 minutesTime: The entirety of this encounter was done via Telemedicine Physical Exam Const General Appearance: patient mechanically ventilated HEENT normocephalic Eyes PERRL and EOMs intact bilaterally Neck full ROM Resp normal respiratory effort Cardio Rate: tachycardic Rhythm: abnormal rhythm irregularly irregular GI normal to inspection, nondistended, normoactive bowel sounds Subjective Subjective Somewhat responsive on full vent support, awakening
[2024-01-28] MEDS: Amiodarone 360 MG in Dextrose 5% Viaflo Bag 192.8 ML 16.7 MG CONT INF (15:42)
[2024-01-28] MEDS: Atorvastatin Calcium 20 MG Tablet GT (20:22)
[2024-01-28] MEDS: Latanoprost 0.005% 1 Bottle 1 DRP RIGHT EYE (20:23)
[2024-01-29] VITALS (39 sets, daily range): BP systolic 87–112; BP diastolic 55–74; PULSE 77–94; RESP 7–18; TEMP 35.9–36.3; O2SAT 90–96; BMI 27.1
[2024-01-29] MEDS: 0.9% Saline Lock 10 ML Syringe IV (03:51)
[2024-01-29] MEDS: CHLORHEXIDINE GLUC 2% CLOTH 1 EACH TOWELETTE TOPICAL (03:52)
[2024-01-29] MEDS: Menthol/Lanolin/Calamine/Znox 113 GM Tube 1 APPLIC TOPICAL ×3 (03:52→21:11)
[2024-01-29] MEDS: Amiodarone 360 MG in Dextrose 5% Viaflo Bag 192.8 ML 16.7 MG CONT INF (03:55)
[2024-01-29] MEDS: fentaNYL drip 100 ML 5 MCG CONT INF (03:57)
[2024-01-29 04:20] LABS: Absolute Lymphocyte Count 0.73 X10^3/uL (0.83-4.51); Absolute Neutrophil Count 9.6 X10^3/uL (2.0-7.7); Basophil# 0.06 X10^3/uL; Basophil% 0.5 % (0-1); Eosinophil# 0.16 X10^3/uL; Eosinophils% 1.4 % (0-5); Hematocrit 26.6 % (40-54); Hemoglobin 8.1 g/dL (13.0-16.5); Lymphocyte # 0.73 X10^3/ul (0.83-4.51); Lymphocyte % 6.3 % (19-41); Mean Corp Hgb Conc 30.5 g/dL (32-36); Mean Corpuscular Hgb 28.8 pg (27.0-32.0); Mean Corpuscular Volume 94.7 fL (80-94); Mean Platelet Vol. 9.9 fl (6.2-12.0); Monocyte# 0.83 X10^3/uL; Monocyte% 7.2 % (0-10); NRBC Flagged by Analyzer 0.3 % (0-5); Neutrophil % 82.9 % (47-70); POSITIVE MORPHOLOGY YES; Platelet Count 180 K/mm3 (150-450); RBC Distribution Width SD 69.6 fl (35.1-43.9); Red Blood Count 2.81 M/mm3 (4.6-6.2); White Blood Count 11.6 K/mm3 (4.4-11.0)
[2024-01-29 04:21] LABS: Differential Indicated SCAN CRITERIA MET
[2024-01-29 04:55] LABS: ALB/GLOB Ratio 0.4 RATIO (0.9-2.4); AST(SGOT) 74 U/L (15-37); Alanine Aminotransfer ALT/SGPT 53 U/L (16-61); Albumin, Serum 1.4 g/dL (3.2-5.0); Alkaline Phosphatase 130 U/L (45-117); Anion Gap 11 (5-15); BUN 42 mg/dL (7-18); BUN/Creat Ratio 10.3 RATIO (10-20); Calcium,Total 7.6 mg/dL (8.5-10.1); Chloride 103 mmol/L (98-107); Creatinine, Serum 4.09 mg/dL (0.70-1.30); EST Glomerular Filtration Rate 16 mL/min (>60); Est Glom Filt Rate - Afr Amer 19 mL/min (>60); Estimated Creatinine Clearance 19.09 ml/min; Glucose 149 mg/dL (74-106); Potassium 3.5 mmol/L (3.5-5.1); Protein, Total 5.4 g/dL (6.4-8.2); Sodium Level 136 mmol/L (136-145)
[2024-01-29] MEDS: Potassium Chloride Oral Soln 20 MEQ/15 ML UDC 40 MEQ NG (08:47)
[2024-01-29] MEDS: Midodrine HCl 5 MG Tablet 10 MG NG ×3 (08:48→16:44)
[2024-01-29] MEDS: BRIMONIDINE 0.2% 5ML BOTTLE 1 DRP RIGHT EYE ×2 (08:52→21:12)
[2024-01-29] MEDS: Divalproex Sodium 125 MG SPRINKLE 1000 MG NG ×2 (08:52→21:10)
[2024-01-29] MEDS: Chlorhexidine 15 ML PO ×2 (08:52→21:14)
[2024-01-29] MEDS: APIXABAN 5 MG TABLET GT ×2 (08:53→21:11)
[2024-01-29] MEDS: Miconazole Nitrate 43 GM Bottle 1 APPLIC TOPICAL ×2 (08:53→21:11)
[2024-01-29] MEDS: Pantoprazole Sodium 40 MG in 0.9% Normal Saline (100mL MB+) 100 ML 330 MG IV ×2 (09:00→21:14)
[2024-01-29] MEDS: Meropenem 500 MG in 0.9% Normal Saline (50mL MB+) 50 ML 100 MG IV (10:09)
--- NOTE | 2024-01-29 11:21 | PN.CC_ITS ---
Objective Data Objective Data Vital Signs: Vital Signs Last response 3 Temperature 36.2 C L 01/29/24 10:00 Temperature Source Temporal 01/29/24 10:00 Pulse Rate 87 01/29/24 11:07 Pulse Strength Weak (1+) 01/28/24 20:12 Respiratory Rate 18 01/29/24 11:07 Respiratory Effort Mechanically Ventilated 01/29/24 08:00 Respiratory Depth Normal 01/29/24 08:00 Respiratory Pattern Normal 01/29/24 08:00 Blood Pressure 107/70 01/29/24 11:00 Blood Pressure Mean 82 01/29/24 11:00 Blood Pressure Source Monitor 01/29/24 11:00 Blood Pressure Position Semi-Fowlers 01/29/24 11:00 Blood Pressure Location Left Arm 01/29/24 11:00 Pulse Ox 94 01/29/24 11:11 Oxygen Delivery Method Mechanical Ventilator 01/29/24 11:00 Fraction of Inspired Oxygen (FIO2) 21 01/29/24 11:07 I&O: I&O Last 24 Hours 3 01/28/24 01/28/24 01/29/24 11:59 23:59 11:59 Intake Total 986.10 / 2131.32 1073.42 / 2131.32 975.19 / 975.19 Output Total 5 5 10 Balance 981.10 / 2121.32 1068.42 / 2121.32 975.19 / 975.19 I&O: Total Stay 3 01/26/24 07:39 thru 01/29/24 10:51 Intake Total 4923.13 Output Total 1500 Balance 3423.13 Current Meds Ordered / Administered: Current meds ordered / Administered 3 Generic Name Dose Route Start Last Admin Trade Name Freq PRN Reason Stop Dose Admin Acetaminophen 650 mg 01/26/24 15:36 Acetaminophen 650 Mg/20 Ml Udc NG Q6H PRN PRN Pain 1-10 Or Fever >100.7 Albuterol Sulfate 2.5 mg 01/26/24 13:48 Albuterol 2.5 Mg/3 Ml Vial.Neb. INHALATION Q2H PRN PRN SOB &/OR WHEEZING Amiodarone HCl 200 mg 01/29/24 11:00 Amiodarone 200 Mg Tablet GT BID FREDERIC Apixaban 5 mg 01/28/24 10:00 01/29/24 08:53 Apixaban 5 Mg Tablet GT 5 mg BID FREDERIC Administration Atorvastatin Calcium 20 mg 01/28/24 22:00 01/28/24 20:22 Atorvastatin Calcium 20 Mg Tablet GT 20 mg QHS FREDERIC Administration Brimonidine Tartrate 1 drp 01/26/24 22:00 01/29/24 08:52 Brimonidine 0.2% 5ml Bottle RIGHT EYE 1 drp BID FREDERIC Administration Calamine/Phenol 1 applic 01/27/24 14:00 01/29/24 03:52 Menthol/Lanolin/Calamine/Znox 113 Gm Tube TOPICAL 1 applic TID FREDERIC Administration Protocol Calcitriol 0.25 mcg 01/27/24 10:00 01/27/24 11:49 Calcitriol 0.25 Mcg Capsule NG Not Given [id number]@1000 FREDERIC Chlorhexidine Gluconate 15 ml 01/27/24 10:25 01/29/24 08:52 Chlorhexidine 15 Ml PO 15 ml BID FREDERIC Administration Chlorhexidine Gluconate 1 each 01/28/24 10:00 01/29/24 03:52 Chlorhexidine Gluc 2% Cloth 1 Each Towelette TOPICAL 1 each DAILY FREDERIC Administration Divalproex Sodium 1,000 mg 01/26/24 22:00 01/29/24 08:52 Divalproex Sodium 125 Mg Sprinkle NG 1,000 mg BID FREDERIC Administration Fentanyl 100 mls @ 2.5 mls/hr 01/26/24 07:50 01/29/24 10:00 CONT INF 0 mcg/hr UD FREDERIC 0 mls/hr Titration Protocol 25 MCG/HR Sodium Chloride 250 mls @ 15 mls/hr 01/26/24 13:09 IV .[id number] PRN Additional IVPB Infusion Sodium Chloride 250 mls @ 15 mls/hr 01/26/24 13:09 IV .[id number] PRN Saline Flush Pantoprazole Sodium 40 mg/ 110 mls @ 330 mls/hr 01/26/24 22:00 01/29/24 09:54 Sodium Chloride IV Infused Q12 FREDERIC Infusion Vancomycin IV-PHARMACY TO DOSE 500 mls @ 250 mls/hr 01/26/24 13:48 1 each/ Sodium Chloride IV PRN PRN Rx to Dose Protocol Norepinephrine Bitartrate 8 mg 250 mls @ 9.375 mls/hr 01/28/24 01:05 01/29/24 07:00 / Sodium Chloride CONT INF 0 mcg/min .[id number] FREDERIC 0 mls/hr Titration Protocol 5 MCG/MIN Meropenem 500 mg/ Sodium 60 mls @ 100 mls/hr 01/28/24 10:00 01/29/24 10:51 Chloride IV Infused Q24 FREDERIC Infusion Enteral Nutritional Formula 1,000 mls @ 50 mls/hr 01/28/24 11:30 01/29/24 09:54 Nepro Carb Steady GT 50 mls/hr .Q20H FREDERIC Infusion Latanoprost 1 drp 01/26/24 22:00 01/28/24 20:23 Latanoprost 0.005% 1 Bottle RIGHT EYE 1 drp QHS FREDERIC Administration Melatonin 3 mg 01/26/24 13:48 Melatonin 3 Mg Tablet NG QHS PRN PRN INSOMNIA Metoprolol Tartrate 25 mg 01/27/24 10:00 01/27/24 12:10 Metoprolol Tartrate 25 Mg Tablet NG 25 mg DAILY [facility] Administration Protocol Miconazole Nitrate 1 applic 01/26/24 22:00 01/29/24 08:53 Miconazole Nitrate 43 Gm Bottle TOPICAL 1 applic BID [facility] Administration Protocol Midodrine 10 mg 01/29/24 08:00 01/29/24 08:48 Midodrine Hcl 5 Mg Tablet NG 10 mg TIDCM FREDERIC Administration Ondansetron HCl 4 mg 01/26/24 13:48 Ondansetron 4 Mg/2 Ml Vial IV Q8H PRN PRN NAUSEA/VOMITING Senna/Docusate Sodium 2 tablet 01/26/24 13:48 Senna/Docusate Sodium 1 Tablet NG BID PRN Constipation Sodium Chloride 10 - 40 ml 01/26/24 13:09 01/29/24 03:51 0.9% Saline Lock 10 Ml Syringe IV 20 ml UD PRN Administration SALINE FLUSH Lab / Micro Data Attestation: I reviewed the patient's lab results. 01/29/24 04:00 01/29/24 04:00 Labs: Laboratory Results - last 24 hr 01/29/24 04:00: WBC 11.6 H, RBC 2.81 L, Hgb 8.1 L, Hct 26.6 L, MCV 94.7 H, MCH 28.8, MCHC 30.5 L, RDW Std Deviation 69.6 H, RDW Coeff of Silvia 20.0 H, Plt Count 180, MPV 9.9, Immature Gran % (Auto) 1.700 H, Neut % (Auto) 82.9 H, Lymph % (Auto) 6.3 L, Mcdonald % (Auto) 7.2, Eos % (Auto) 1.4, Baso % (Auto) 0.5, Absolute Neuts (auto) 9.6 H, Absolute Lymphs (auto) 0.73 L, Nucleated RBC % 0.3, Sodium 136, Potassium 3.5, Chloride 103, Carbon Dioxide 22.0, Anion Gap 11, BUN 42 H, C reatinine 4.09 H, Estim Creat Clear Calc 19.09, Est GFR (MDRD) Af Amer 19 L, Est GFR (MDRD) Non-Af 16 L, BUN/Creatinine Ratio 10.3, Glucose 149 H, Calcium 7.6 L, Total Bilirubin 0.70, AST 74 H, ALT 53, Alkaline Phosphatase 130 H, Total Protein 5.4 L, Albumin 1.4 L, Globulin 4.0, Albumin/Globulin Ratio 0.4 L Micro: Microbiology 01/26/24 08:10 Sputum, Induced/Lukens Gram Stain - Final 01/26/24 08:10 Sputum, Induced/Lukens Respiratory Culture - Final ESBL Escherichia coli Streptococcus group C 01/26/24 08:05 Blood Culture (Wb) - Venous Blood Culture - Preliminary No growth in 48 hours. 01/26/24 07:45 Blood Culture (Wb) - Left Foot Blood Culture - Preliminary Coag Negative Staph 01/26/24 08:00 Urine, Catheterized Urine Culture - Final Culture exhibits no growth. ABG Data Attestation: I personally reviewed and interpreted this ABG as follows: Assessment and Plan . Assessment and plan: IMPRESSION: 1. Acute on chronic hypoxemic respiratory failure in the setting of cardiopulmonary arrest - etiology of arrest/ found down state somewhat unclear - no evidence of ALIREZA post-event - failing SAT/ SBT currently 2. ESRD 3. Acute on chronic anemia 4. RVR paroxysmal atrial fibrillation, on amio Suggest: 1. continue daily SAT/ SBT 3. Continue empiric antibiotics, pending finalized culture results. 4. PRBCs PRN 5. Continue PPI therapy. 6. Dialysis support per nephrology recommendations. Critical Care Time: 50 minutes The entirety of this encounter was done via Telemedicine Physical Exam Const no apparent distress General Appearance: patient mechanically ventilated HEENT normocephalic and head/scalp atraumatic Eyes PERRL and EOMs intact bilaterally Neck supple Resp normal respiratory effort Cardio regular rate GI normal to inspection, nondistended, normoactive bowel sounds Subjective Subjective Appears comfortable still on full vent support. Failed SAT/SBT yesterday with apneas or low minute volumes triggered.
[2024-01-29] MEDS: Amiodarone 200 MG Tablet GT ×2 (11:25→21:10)
--- NOTE | 2024-01-29 12:07 | PN.HOSP_ITS ---
Reason for Visit Reason for Visit: Cardiopulmonary arrest Subjective Subjective No issues through the night. Patient converted back to normal sinus rhythm with amiodarone. Did poorly again on his weaning trial with apnea and hypoxia. Likely needs more volume removal until he is optimized for extubation. Plan is for dialysis again tomorrow. Objective Data Objective Data Vital Signs: Vital Signs Temp Pulse Resp BP Pulse Ox O2 Del Method FiO2 97.1 F L 87 18 107/70 94 Mechanical Ventilator 01/29/24 10:00 01/29/24 11:07 01/29/24 11:07 01/29/24 11:00 01/29/24 11:11 01/29/24 11:00 01/29/24 11:07 Oxygen Delivery Method Mechanical Ventilator Weight: 86.2 kg Body Mass Index (BMI) 27.1 Intake & Output: Intake and Output for Last 24 Hours 01/27/24 01/28/24 01/29/24 23:59 23:59 23:59 Intake Total 1059.25 / 1060.00 2059.52 / 2131.32 1102.11 / 1102.11 Output Total 1305 / 1305 Balance -245.75 / -245.00 2049.52 / 2121.32 1077.11 / 1077.11 Lab / Micro Data 01/29/24 04:00 01/29/24 04:00 Labs: Laboratory Results - last 24 hr 01/29/24 04:00: WBC 11.6 H, RBC 2.81 L, Hgb 8.1 L, Hct 26.6 L, MCV 94.7 H, MCH 28.8, MCHC 30.5 L, RDW Std Deviation 69.6 H, RDW Coeff of Silvia 20.0 H, Plt Count 180, MPV 9.9, Immature Gran % (Auto) 1.700 H, Neut % (Auto) 82.9 H, Lymph % (Auto) 6.3 L, Jefferson % (Auto) 7.2, Eos % (Auto) 1.4, Baso % (Auto) 0.5, Absolute Neuts (auto) 9.6 H, Absolute Lymphs (auto) 0.73 L, Nucleated RBC % 0.3, Sodium 136, Potassium 3.5, Chloride 103, Carbon Dioxide 22.0, Anion Gap 11, BUN 42 H, C reatinine 4.09 H, Estim Creat Clear Calc 19.09, Est GFR (MDRD) Af Amer 19 L, Est GFR (MDRD) Non-Af 16 L, BUN/Creatinine Ratio 10.3, Glucose 149 H, Calcium 7.6 L, Total Bilirubin 0.70, AST 74 H, ALT 53, Alkaline Phosphatase 130 H, Total Protein 5.4 L, Albumin 1.4 L, Globulin 4.0, Albumin/Globulin Ratio 0.4 L Micro: Microbiology 01/26/24 08:10 Sputum, Induced/Lukens Gram Stain - Final 01/26/24 08:10 Sputum, Induced/Lukens Respiratory Culture - Final ESBL Escherichia coli Streptococcus group C 01/26/24 08:05 Blood Culture (Wb) - Venous Blood Culture - Preliminary No growth in 48 hours. 01/26/24 07:45 Blood Culture (Wb) - Left Foot Blood Culture - Preliminary Coag Negative Staph 01/26/24 08:00 Urine, Catheterized Urine Culture - Final Culture exhibits no growth. 01/26/24 08:24 Stool Stool Occult Blood (EMILY) - Final Occult Blood Positive Physical Exam Const no apparent distress, average body habitus and well nourished; Negative for healthy appearing Constitutional Narrative: Middle-aged, white male, lying in bed on a ventilator, patient currently sedated and sleeping, appears comfortable, does not appear toxic, at bedside General Appearance: cooperative HEENT normocephalic, head/scalp atraumatic and moist oral mucous membranes HEENT Narrative: ET tube and OG in place Resp No normal respiratory effort, no retractions, no use of accessory muscles and clear to auscultation bilaterally Resp Narrative: Intubated, diminished at bases bilaterally Auscultation: Negative for crackles, rhonchi or wheezes Cardio regular rate, regular rhythm, S1 normal heart sound, S2 normal heart sound, no murmurs, no rub, no gallops and no clicks GI normal to inspection, nondistended, normoactive bowel sounds, soft to palpation and non-tender Extremity Extremity Narrative: Remains with doughy pitting edema up to his hips bilaterally, no cyanosis or clubbing, pedal and radial pulses were 2+ bilaterally Neuro Neuro Narrative: Patient currently sedated and intubated Speech: Negative for speech normal Psych Psych Narrative: Unable to assess as patient is intubated and sedated Assessment & Plan Assessment/Plan (1) Cardiopulmonary arrest: (2) Acute hypoxic respiratory failure: (3) Bilateral pleural effusion: (4) Medical non-compliance: (5) Transaminitis: (6) GI bleed: (7) Leukocytosis: (8) Hypotension: (9) Lactic acidosis: PLAN: Plan Cardiopulmonary arrest -etiology is unclear however highly suspect it was related to hypoxia and hypercapnia -Per report was pulseless at the [facility] however no documentation of rhythm and ROSC was achieved prior to EMS arrival -Cardiac enzyme was normal on arrival -Echocardiogram performed and showed an EF of 55% and trivial mitral valve insufficiency with no wall motion abnormality. Acute on chronic hypoxic respiratory failure secondary to volume overload secondary to acute HFpEF/and ESBL E. coli and group C strep pneumonia -Appears that he is on 2 L at baseline based on previous documentation from last admission -Ventilator has been weaned to 21% -Has done poorly on his breathing trials for the last 48 hours -May need more fluid removal until he is optimized for extubation as he is markedly volume overloaded -Dialysis per nephrology--> dialysis planned again for tomorrow -Will fluid restrict is much as possible -Continue meropenem -Can discontinue vancomycin Septic shock secondary to ESBL E. coli and group C strep pneumonia -Off pressors -Start midodrine 10 mg 3 times daily -Continue meropenem -ID consul pending History of dysphagia -Will need speech therapy consultation after extubation Chronic anemia -Hemoglobin remained stable despite restarting Eliquis on 01/28/2024 -Continue to monitor with repeat hemoglobin in a.m. -has history of recent GI bleed -Guaiac was positive however in light of hemoglobin stability will cycle hemoglobin and monitor closely -If remains stable we will plan for GI follow-up with outpatient scope Positive guaiac stool -EGD was performed on 11/04/2023 at which time patient was found to have a normal esophagus, oozing gastric ulcers that were injected, treated with heater probe, and clipped and no gross lesions in the duodenum -Eliquis restarted on 01/28/2024 and hemoglobin stable thus far -Repeat CBC in a.m. -Continue IV Protonix now twice daily but will transition back to p.o. Protonix once able Transaminitis -Resolved -no reason to repeat assess Bilateral pleural effusions -right appears greater than left -Will try to see if we can perform full dialysis sessions to pull fluid and if does not improve may need thoracentesis -highly suspect transudative based on data currently available End-stage renal disease on dialysis -Patient has been noncompliant receiving incomplete sessions of dialysis -Continue home calcitriol -Nephrology is following-appreciate input -Plan for dialysis again tomorrow Hypertension -hold amlodipine -Metoprolol on hold Paroxysmal atrial fibrillation with RVR -Has now converted back to normal sinus rhythm -Stop amiodarone drip -Transition to oral amiodarone 200 mg p.o. twice daily -Metoprolol remains on hold -Continue Eliquis 5 mg p.o. twice daily Hyperlipidemia -Continue atorvastatin History of gastric ulcers/GERD -See above -IV Protonix twice daily Seizure disorder -Continue valproic acid Acute on chronic heart failure with preserved ejection fraction/pulmonary hypertension/diastolic dysfunction -Echocardiogram done on 08/02/2023 showed an EF of 60% with stage III diastolic dysfunction and mild concentric LVH with moderate pulmonary hypertension showing pulmonary pressures at 65 mmHg -Manage volume status with dialysis -Storeroom Attendant following and fluid removal per them as patient does not make much urine Carotid artery stenosis -Dopplers done in 07/2023 show right internal carotid artery with 50 to 69% stenosis/left internal carotid artery with 50 to 69% stenosis and patent antegrade vertebral arteries with slight progression since 2021 -Continue aggressive management of secondary risk factors as able History of stroke -Probably cardioembolic with history -Continue home Eliquis -Continue to control secondary risk factors -Baseline deficits are left-sided hemiparesis DM-2 -A1c was 5.0 in October however patient was anemic at that time -Fasting blood sugar on admission was 88 -will follow fasting sugars and start SSI/Accu-Cheks if consistently greater than 140 -Patient is currently n.p.o. Anxiety/depression -patient is on no current regimen for treatment DVT prophylaxis -Eliquis 5 mg twice daily CODE STATUS -Full code Charges/Coding Visit Charges Inpatient E&M: 64813 Subs Hosp L2
[2024-01-29] MEDS: NEPRO TUBE FEED 1,000 ML 50 ML GT (13:43)
[2024-01-29] MEDS: Atorvastatin Calcium 20 MG Tablet GT (21:11)
[2024-01-29] MEDS: Latanoprost 0.005% 1 Bottle 1 DRP RIGHT EYE (21:11)
[2024-01-30] VITALS (47 sets, daily range): BP systolic 76–219; BP diastolic 54–88; PULSE 80–123; RESP 13–26; TEMP 35.9–36.7; O2SAT 89–100; BMI 27.7; BMI 27.1
[2024-01-30] MEDS: 0.9% Saline Lock 10 ML Syringe IV ×2 (04:00→07:42)
[2024-01-30] MEDS: Menthol/Lanolin/Calamine/Znox 113 GM Tube 1 APPLIC TOPICAL ×3 (04:00→20:48)
[2024-01-30] MEDS: CHLORHEXIDINE GLUC 2% CLOTH 1 EACH TOWELETTE TOPICAL (04:00)
[2024-01-30 04:08] LABS: Absolute Lymphocyte Count 0.84 X10^3/uL (0.83-4.51); Absolute Neutrophil Count 10.7 X10^3/uL (2.0-7.7); Basophil# 0.08 X10^3/uL; Basophil% 0.6 % (0-1); Eosinophil# 0.17 X10^3/uL; Eosinophils% 1.3 % (0-5); Hemoglobin 9.2 g/dL (13.0-16.5); Lymphocyte # 0.84 X10^3/ul (0.83-4.51); Lymphocyte % 6.4 % (19-41); Mean Corp Hgb Conc 30.7 g/dL (32-36); Mean Corpuscular Hgb 28.9 pg (27.0-32.0); Mean Corpuscular Volume 94.3 fL (80-94); Mean Platelet Vol. 9.5 fl (6.2-12.0); Monocyte# 1.09 X10^3/uL; Monocyte% 8.3 % (0-10); NRBC Flagged by Analyzer 0.2 % (0-5); Neutrophil % 81.6 % (47-70); POSITIVE MORPHOLOGY YES; Platelet Count 170 K/mm3 (150-450); RBC Distribution Width CV 20.2 % (11.6-14.6); Red Blood Count 3.18 M/mm3 (4.6-6.2); White Blood Count 13.1 K/mm3 (4.4-11.0)
[2024-01-30 04:23] LABS: Anion Gap 12 (5-15); BUN 50 mg/dL (7-18); BUN/Creat Ratio 10.8 RATIO (10-20); Calcium,Total 7.8 mg/dL (8.5-10.1); Chloride 100 mmol/L (98-107); Creatinine, Serum 4.65 mg/dL (0.70-1.30); EST Glomerular Filtration Rate 14 mL/min (>60); Est Glom Filt Rate - Afr Amer 16 mL/min (>60); Estimated Creatinine Clearance 18.16 ml/min; Glucose 241 mg/dL (74-106); Potassium 3.7 mmol/L (3.5-5.1); Sodium Level 133 mmol/L (136-145)
[2024-01-30 04:25] LABS: Differential Indicated SCAN CRITERIA MET
--- NOTE | 2024-01-30 05:55 | NURSING ---
Fentanyl gtt paused for SBT at 0400. Restarted at 25 mcg/hr for comfort after pt failed SBT.
--- NOTE | 2024-01-30 07:31 | PN.CC_ITS ---
Assessment & Plan Assessment/Plan (1) Acute hypoxic respiratory failure: PLAN: Plan RECOMMENDATIONS: 1. Continue assist-control mode mechanical ventilation. Wean FiO2 and PEEP to maintain saturations at or above 90%. 2. Continue daily spontaneous breathing trials. 3. Continue antimicrobials as ordered. 4. Transfuse packed red blood cells if hemoglobin drops below 7 g/dL. 5. Continue PPI therapy. 6. Dialysis support per nephrology recommendations. IMPRESSIONS: 1. Acute on chronic hypoxemic respiratory failure in the setting of cardiopulmonary arrest/ESBL E. coli and group C strep pneumonia The patient has a known history of chronic hypoxemic respiratory failure with a baseline oxygen requirement of 2 L/min. The patient was found down at his nursing facility pulseless and subsequently received CPR, with eventual ROSC. I do suspect that his current respiratory status is likely the consequence of hypervolemia, which likely developed secondary to recent incomplete dialysis sessions. In addition, the patient's sputum culture was positive for ESBL E. coli and group C strep pneumonia. Accordingly, the patient has been continued on appropriate antimicrobial therapy. He will be continued on assist-control mode of mechanical ventilation. My hope is that with further volume optimization through dialysis he will eventually be able to pass his spontaneous breathing trial. 2. End-stage renal disease on hemodialysis Nephrology following to assist with hemodialysis needs. 3. Acute on chronic anemia The patient has a history of gastric ulcers, which were treated during prior hospitalizations. Gastroenterology is currently following. Plan to transfuse if hemoglobin drops below 7 g/dL. In the interim, continue PPI therapy as ordered. 4. History of hypertension/paroxysmal atrial fibrillation with RVR/history of gastric ulcers/unspecified seizure disorder/HFpEF/diabetes mellitus Complicates care, management, recovery and prognosis. Continue sliding scale insulin coverage for now. Continue to monitor blood counts and transfuse if hemoglobin drops below 7 g/dL. TIME: 33 minutes of critical care time, independent of procedures, was spent addressing the patient's acute on chronic hypoxemic respiratory failure, status postcardiopulmonary arrest, end-stage renal disease on hemodialysis, acute on chronic anemia, review of all data and collaboration with the care team. Subjective Subjective The patient was seen and examined at the bedside this morning. Events from the last 24 hours have been reviewed. The patient is currently afebrile, hemodynamically stable and maintaining appropriate oxygen saturations on assist- control mode mechanical ventilation with an FiO2 requirement of 21% and PEEP of 5. The patient remains sedated on fentanyl. He has been tolerant of tube feeding. Unfortunately, the patient continues to fail spontaneous breathing trials. He is due to receive dialysis today. White count is elevated at 13,000. Objective Data Objective Data The patient's most recent lab work, culture data and imaging studies have all been personally reviewed. Surface echocardiogram demonstrated an ejection fraction of 55%. Pulmonary artery systolic pressure was estimated to be 35 mmHg. Stool for occult blood was positive. Sputum culture dated January 25 was positive for ESBL E. coli. Vital Signs: Vital Signs Temp Pulse Resp BP Pulse Ox O2 Del Method FiO2 96.9 F L 83 14 94/65 96 Mechanical Ventilator 01/30/24 04:00 01/30/24 07:00 01/30/24 07:00 01/30/24 07:00 01/30/24 07:00 01/30/24 07:00 01/30/24 07:00 Oxygen Delivery Method Mechanical Ventilator Weight: 193 lb 12.581 oz Body Mass Index (BMI) 27.7 Intake & Output: Intake and Output for Last 24 Hours 01/28/24 01/29/24 01/30/24 23:59 23:59 23:59 Intake Total 2059.52 / 2131.32 1925.44 / 2442.11 879.80 / 879.80 Output Total Balance 2049.52 / 2121.32 1900.44 / 2417.11 879.80 / 879.80 Lab / Micro Data Attestation: I reviewed the patient's lab results. 01/30/24 04:00 01/30/24 04:00 Labs: Laboratory Results - last 24 hr 01/30/24 04:00: WBC 13.1 H, RBC 3.18 L, Hgb 9.2 L, Hct 30.0 L, MCV 94.3 H, MCH 28.9, MCHC 30.7 L, RDW Std Deviation 69.0 H, RDW Coeff of Silvia 20.2 H, Plt Count 170, MPV 9.5, Immature Gran % (Auto) 1.800 H, Neut % (Auto) 81.6 H, Lymph % (Auto) 6.4 L, Osborne % (Auto) 8.3, Eos % (Auto) 1.3, Baso % (Auto) 0.6, Absolute Neuts (auto) 10.7 H, Absolute Lymphs (auto) 0.84, Nucleated RBC % 0.2, Sodium 133 L, Potassium 3.7, Chloride 100, Carbon Dioxide 21.0, Anion Gap 12, BUN 50 H, Creatinine 4.65 H, Estim Creat Clear Calc 18.16, Est GFR (MDRD) Af Amer 16 L, E st GFR (MDRD) Non-Af 14 L, BUN/Creatinine Ratio 10.8, Glucose 241 H, Calcium 7.8 L Micro: Microbiology 01/26/24 08:10 Sputum, Induced/Lukens Gram Stain - Final 01/26/24 08:10 Sputum, Induced/Lukens Respiratory Culture - Final ESBL Escherichia coli Streptococcus group C 01/26/24 08:05 Blood Culture (Wb) - Venous Blood Culture - Preliminary No growth in 48 hours. 01/26/24 07:45 Blood Culture (Wb) - Left Foot Blood Culture - Preliminary Coag Negative Staph 01/26/24 08:00 Urine, Catheterized Urine Culture - Final Culture exhibits no growth. 01/26/24 08:24 Stool Stool Occult Blood (EMILY) - Final Occult Blood Positive ABG Data ABG results: ABG 01/26/24 09:10 Specimen Type ART Sample Site L Radial pH 7.38 Bicarbonate Actual 25.1 Total CO2 27 Base Excess 0 O2 Saturation 95 O2 % 100.0 ABG pCO2 43.0 ABG pO2 77 Richi Test Positive Respiration Rate 400 O2 Delivery Device Adult Vent Vent Mode AC Tidal Volume 14.0 POC PEEP 5 Radiography Diagnostic Testing: Radiology Impression Brain CT 01/26/24 07:41 IMPRESSION: Chronic involutional changes of the brain. Electronically Signed: Michael Allen MD at 9:19 EDT , Chest X-Ray 01/26/24 07:46 IMPRESSION: The tip of the endotracheal tube is at the origin of the left mainstem bronchus. This should be withdrawn approximately 2.5 cm. Volume loss and possible atelectasis with infiltrate in the right lower lobe with small right pleural effusion. Electronically Signed: Michael Allen MD at 9:21 EDT , Cervical Spine CT 01/26/24 12:40 IMPRESSION: Multilevel degenerative changes, as described above. Electronically Signed: Michael Allen MD at 13:17 EDT , Echocardiogram 01/26/24 13:48 Interpretation Summary The estimated ejection fraction is 55 %. Unable to assess diastolic dysfunction. Trivial mitral valve insufficiency. Ordering Physician: Ashtyn Canseco Referring Physician: Amish Han Performed By: Odette Pineda RDCS and Student Physical Exam Const Constitutional Narrative: Intubated and mechanically ventilated. No ventilator dyssynchrony. HEENT normocephalic and head/scalp atraumatic Mouth: endotracheal tube in place Eyes conjunctivae normal and no scleral icterus Neck supple General: trachea midline Chest inspection of chest normal Resp normal respiratory effort Auscultation: diminished lung sounds; Negative for rales, rhonchi or wheezes Cardio regular rate, regular rhythm, S1 normal heart sound and S2 normal heart sound GI normal to inspection, nondistended, normoactive bowel sounds Extremity General Extremity: edema; Negative for clubbing Skin no rashes or lesions noted Neuro Sensorium / Orientation: sedated on vent Charges/Coding Procedures Hospitalists Procedures: 31410 Critical Care 1st Hr
[2024-01-30] MEDS: PureFlow B 4K Dialysis Soln 1 BAG BAG 6 BAG PF (07:41)
[2024-01-30] MEDS: 0.9% Normal Saline 1,000 ML IV.SOLN. 1000 ML OPERA.SITE (07:41)
--- NOTE | 2024-01-30 07:56 | PCM.PN.HOSP ---
Reason for Visit Reason for Visit: Cardiopulmonary arrest Objective Data Objective Data Vital Signs: Vital Signs Temp Pulse Resp BP Pulse Ox O2 Del Method FiO2 96.8 F L 82 14 88/67 L 96 Mechanical Ventilator 01/30/24 07:15 01/30/24 07:43 01/30/24 07:43 01/30/24 07:43 01/30/24 07:43 01/30/24 07:43 01/30/24 07:15 Oxygen Delivery Method Mechanical Ventilator Weight: 87.9 kg Body Mass Index (BMI) 27.7 Intake & Output: Intake and Output for Last 24 Hours 01/28/24 01/29/24 01/30/24 23:59 23:59 23:59 Intake Total 2059.52 / 2131.32 1925.44 / 2442.11 879.80 / 879.80 Output Total Balance 2049.52 / 2121.32 1900.44 / 2417.11 879.80 / 879.80 Lab / Micro Data 01/30/24 04:00 01/30/24 04:00 Labs: Laboratory Results - last 24 hr 01/30/24 04:00: WBC 13.1 H, RBC 3.18 L, Hgb 9.2 L, Hct 30.0 L, MCV 94.3 H, MCH 28.9, MCHC 30.7 L, RDW Std Deviation 69.0 H, RDW Coeff of Silvia 20.2 H, Plt Count 170, MPV 9.5, Immature Gran % (Auto) 1.800 H, Neut % (Auto) 81.6 H, Lymph % (Auto) 6.4 L, Mcpherson % (Auto) 8.3, Eos % (Auto) 1.3, Baso % (Auto) 0.6, Absolute Neuts (auto) 10.7 H, Absolute Lymphs (auto) 0.84, Nucleated RBC % 0.2, Sodium 133 L, Potassium 3.7, Chloride 100, Carbon Dioxide 21.0, Anion Gap 12, BUN 50 H, Creatinine 4.65 H, Estim Creat Clear Calc 18.16, Est GFR (MDRD) Af Amer 16 L, Est GFR (MDRD) Non-Af 14 L, BUN/Creatinine Ratio 10.8, Glucose 241 H, Calcium 7.8 L Micro: Microbiology 01/26/24 08:10 Sputum, Induced/Lukens Gram Stain - Final 01/26/24 08:10 Sputum, Induced/Lukens Respiratory Culture - Final ESBL Escherichia coli Streptococcus group C 01/26/24 08:05 Blood Culture (Wb) - Venous Blood Culture - Preliminary No growth in 48 hours. 01/26/24 07:45 Blood Culture (Wb) - Left Foot Blood Culture - Preliminary Coag Negative Staph 01/26/24 08:00 Urine, Catheterized Urine Culture - Final Culture exhibits no growth. 01/26/24 08:24 Stool Stool Occult Blood (EMILY) - Final Occult Blood Positive Physical Exam Const alert, no apparent distress and average body habitus; Negative for healthy appearing Constitutional Narrative: Middle-aged, white male, lying in bed on a ventilator, patient currently sedated and sleeping, appears comfortable, does not appear toxic, on HD with HD nurse at the bedside General Appearance: cooperative HEENT head/scalp atraumatic HEENT Narrative: ETT in place Head and Scalp: normocephalic Resp No normal respiratory effort, no retractions, no use of accessory muscles and clear to auscultation bilaterally Resp Narrative: Intubated, diminished at bases bilaterally Auscultation: Negative for crackles, rhonchi or wheezes Cardio regular rate, regular rhythm, S1 normal heart sound, S2 normal heart sound, no murmurs, no rub, no gallops and no clicks GI normal to inspection, nondistended, normoactive bowel sounds, soft to palpation and non-tender Extremity Extremity Narrative: Remains with doughy pitting edema up to his hips bilaterally, no cyanosis or clubbing, pedal and radial pulses were 2+ bilaterally Neuro moves all extremities Neuro Narrative: Alert and interacts, following commands Sensorium / Orientation: awake and alert Speech: Negative for speech normal Psych Psych Narrative: calm Assessment & Plan Assessment/Plan (1) Cardiopulmonary arrest: (2) Acute hypoxic respiratory failure: (3) Bilateral pleural effusion: (4) Medical non-compliance: (5) Transaminitis: (6) GI bleed: (7) Leukocytosis: (8) Hypotension: (9) Lactic acidosis: PLAN: Plan Cardiopulmonary arrest -etiology is unclear however highly suspect it was related to hypoxia and hypercapnia -Per report was pulseless at the [facility] facility however no documentation of rhythm and ROSC was achieved prior to EMS arrival -Cardiac enzyme was normal on arrival -Echocardiogram performed and showed an EF of 55% and trivial mitral valve insufficiency with no wall motion abnormality. Acute on chronic hypoxic respiratory failure secondary to volume overload secondary to acute HFpEF/and ESBL E. coli and group C strep pneumonia -Appears that he is on 2 L at baseline based on previous documentation from last admission -Remains on the ventilator at 21% but still doing poorly on breathing trials -May need more fluid removal until he is optimized for extubation as he is markedly volume overloaded -On HD right now so hopefully that helps -Dialysis per nephrology -Will fluid restrict is much as possible -Continue meropenem Septic shock secondary to ESBL E. coli and group C strep pneumonia -Remains off pressors -Continue midodrine 10 mg 3 times daily -Continue meropenem -ID consult is pending-patient is to be seen today History of dysphagia -Will need speech therapy consultation after extubation Chronic anemia -Hemoglobin remained stable despite restarting Eliquis on 01/28/2024 -Hemoglobin remained stable currently 9.2 -has history of recent GI bleed -Guaiac was positive however in light of hemoglobin stability will cycle hemoglobin and monitor closely -At this point his hemoglobin remained stable despite being on Eliquis so will plan for outpatient EGD unless clinical status changes Positive guaiac stool -EGD was performed on 11/04/2023 at which time patient was found to have a normal esophagus, oozing gastric ulcers that were injected, treated with heater probe, and clipped and no gross lesions in the duodenum -Eliquis restarted on 01/28/2024 and hemoglobin stable thus far -Repeat CBC in a.m. -Continue IV Protonix now twice daily but will transition back to p.o. Protonix once able Bilateral pleural effusions -right appears greater than left -Continue dialysis -Repeat chest x-ray tomorrow End-stage renal disease on dialysis -Patient has been noncompliant receiving incomplete sessions of dialysis -Continue home calcitriol -Nephrology is following-appreciate input -Plan for dialysis again tomorrow Hypertension -hold amlodipine -Metoprolol on hold Paroxysmal atrial fibrillation with RVR -Has now converted back to normal sinus rhythm -Continue amiodarone oral 200 mg p.o. twice daily day 2 of 7 then transition to 200 mg daily -Metoprolol remains on hold as blood pressures are low normal -Continue Eliquis 5 mg p.o. twice daily -Will need outpatient cardiology follow-up after discharge Hyperlipidemia -Continue atorvastatin History of gastric ulcers/GERD -See above -IV Protonix twice daily Seizure disorder -Continue valproic acid Acute on chronic heart failure with preserved ejection fraction/pulmonary hypertension/diastolic dysfunction -Echocardiogram done on 08/02/2023 showed an EF of 60% with stage III diastolic dysfunction and mild concentric LVH with moderate pulmonary hypertension showing pulmonary pressures at 65 mmHg -Manage volume status with dialysis -Educational Guidance Counselor following and fluid removal per them as patient does not make much urine Carotid artery stenosis -Dopplers done in 07/2023 show right internal carotid artery with 50 to 69% stenosis/left internal carotid artery with 50 to 69% stenosis and patent antegrade vertebral arteries with slight progression since 2021 -Continue aggressive management of secondary risk factors as able History of stroke -Probably cardioembolic with history -Continue home Eliquis -Continue to control secondary risk factors -Baseline deficits are left-sided hemiparesis DM-2 -A1c was 5.0 in October however patient was anemic at that time -Fasting blood sugar here today was 241 after tube feed him and started -Start Lantus 10 units daily -Start moderate dose sliding scale -Every 6 hours BGT's -Once patient extubated and n.p.o. may need to scale back temporarily as his fasting sugars off tube feed were not markedly elevated Anxiety/depression -patient is on no current regimen for treatment DVT prophylaxis -Eliquis 5 mg twice daily CODE STATUS -Full code Charges/Coding Visit Charges Inpatient E&M: 80413 Subs Hosp L2
[2024-01-30] MEDS: Amiodarone 200 MG Tablet GT ×2 (08:02→20:48)
[2024-01-30] MEDS: APIXABAN 5 MG TABLET GT ×2 (08:02→20:48)
[2024-01-30] MEDS: Midodrine HCl 5 MG Tablet 10 MG NG ×3 (08:02→16:33)
[2024-01-30] MEDS: Calcitriol 0.25 MCG Capsule NG (08:03)
[2024-01-30] MEDS: Miconazole Nitrate 43 GM Bottle 1 APPLIC TOPICAL ×2 (08:03→20:48)
[2024-01-30] MEDS: Divalproex Sodium 125 MG SPRINKLE 1000 MG NG ×2 (08:03→20:48)
[2024-01-30] MEDS: BRIMONIDINE 0.2% 5ML BOTTLE 1 DRP RIGHT EYE ×2 (08:04→20:48)
[2024-01-30] MEDS: Insulin Glargine-YFGN 100 UNIT/ML Pen 10 UNIT SC (09:32)
[2024-01-30] MEDS: Chlorhexidine 15 ML PO ×2 (09:32→20:49)
[2024-01-30] MEDS: fentaNYL drip 100 ML 2.5 MCG CONT INF (09:33)
[2024-01-30] MEDS: Pantoprazole Sodium 40 MG in 0.9% Normal Saline (100mL MB+) 100 ML 330 MG IV ×2 (09:43→20:49)
[2024-01-30 09:52] LABS: Bedside Glucose 183 mg/dL (74-106)
--- NOTE | 2024-01-30 09:57 | CASEMGMT ---
Addendum entered by Dione Londono 01/30/24 10:07: Precert not needed. Dione Londono DC Planning Asst. Original Note: Discharge Planning Updates sent to [facility] via [facility]. Asked if precert will be needed. Awaiting response. Dione Londono DC Planning Asst.
[2024-01-30] MEDS: Heparin 10,000 UNITS/10 ML Vial IV (10:42)
[2024-01-30] MEDS: NEPRO TUBE FEED 1,000 ML 50 ML GT (11:17)
[2024-01-30] MEDS: Meropenem 500 MG in 0.9% Normal Saline (50mL MB+) 50 ML 100 MG IV (11:17)
[2024-01-30] MEDS: Insulin Lispro 100 UNIT/ML INSULN.PEN SC ×3 (11:49→23:40)
[2024-01-30 12:44] LABS: Bedside Glucose 218 mg/dL (74-106)
[2024-01-30] MEDS: 0.9% Normal Saline (250mL Bag) 250 ML 15 ML IV (14:31)
--- NOTE | 2024-01-30 16:04 | PCM.CONS.GEN ---
Assessment & Plan Assessment/Plan (1) ESRD (end stage renal disease) on dialysis: (2) Acute hypoxic respiratory failure: PLAN: Treating for pneumonia with esbl ecoli and strep (+) sputum. On meropenem. No fever. 1 of 2 bcx with CoNS, consistent with contaminant. Will follow, thank you HPI Consult Data Date of Consult: 01/30/24 HPI Narrative Reason for Consultation: pneumonia HPI Narrative: JAMES RICO, is a 63 M who presented 01/25 to ED after being found down with pulseless arrest at [facility]. Intubated, admitted to icu, started vanc/zosyn. Remains on vent, no fever overnight. ROS unobtainable due to mental status [facility] Medical History ESRD (end stage renal disease) on dialysis Anemia Right leg weakness Weakness Epilepsy Polyneuropathy History of right MCA stroke Stroke End stage renal disease Wears glasses Wears partial dentures Insulin dependent diabetes mellitus Ambulates with cane Arthritis History of renal disease High cholesterol Restless legs Back pain Migraine headache Injury of head and neck Syncope Dietary restriction Heartburn Former smoker History of pain when walking Cardiology follow-up encounter History of echocardiogram History of stress test History of atrial fibrillation History of renal dialysis Chronic kidney disease, stage 4 (severe) TIA (transient ischemic attack) Acute and chronic respiratory failure with hypoxia CHF (congestive heart failure) Seizures HTN (hypertension) Peripheral neuropathy Home Medications ?Medication ?Instructions ?Recorded ?Last Taken ?Type albuterol sulfate 90 mcg/actuation 2 puff inhalation Q6H PRN Wheezing 08/24/22 Unknown History aerosol inhaler (Ventolin HFA) metoprolol tartrate 25 mg tablet 25 mg PO DAILY afib 08/24/22 01/25/24 History amlodipine 10 mg tablet 10 mg PO DAILY #30 tabs 09/15/22 01/25/24 Rx Manual wheelchair #1 ea 03/24/23 Unknown Rx brimonidine 0.2 % eye drops 1 drp ophthalmic (eye) BID eyes 05/11/23 01/25/24 History latanoprost 0.005 % eye drops 1 drp RIGHT EYE QHS eyes 10/30/23 01/25/24 History guaifenesin 100 mg/5 mL oral liquid 200 mg (10 mL) PO Q4H PRN PRN 11/11/23 01/19/24 Rx Cough #0 mL nystatin 100,000 unit/gram topical 1 applic topical BID #0 grams 11/11/23 01/25/24 Rx powder ([facility]) pantoprazole 40 mg tablet,delayed 40 mg PO BID #0 tabs 11/11/23 01/25/24 Rx release apixaban 2.5 mg tablet (Eliquis) 2.5 mg PO BID 01/26/24 01/25/24 History atorvastatin 20 mg tablet 20 mg PO DAILY 01/26/24 01/25/24 History calcitriol 0.25 mcg capsule 0.25 mcg PO MOWEFR 01/26/24 01/16/24 History cyclobenzaprine 7.5 mg tablet 7.5 mg PO Q8H PRN muscle spasm 01/26/24 01/15/24 History divalproex 125 mg capsule,delayed 1,000 mg PO BID 01/26/24 01/25/24 History release sprinkle midodrine 10 mg tablet 10 mg PO DAILY PRN SBP 01/26/24 Unknown History Allergy/AdvReac Type Severity Reaction Status Date / Time lisinopril AdvReac Severe Other Verified 12/20/23 11:12 oxycodone AdvReac Severe Other Verified 12/20/23 11:12 hydrocodone bitartrate (From AdvReac Mild HYPER Verified 12/20/23 11:12 Vicodin) Family History Father Cancer Prostate Heart disease Mother Heart disease Diabetes Other COPD (chronic obstructive pulmonary disease) Surgical History S/P arteriovenous (AV) fistula creation Hx of right cataract extraction Hx of left cataract extraction Hx of arteriovenostomy for renal dialysis History of rotator cuff surgery History of umbilical hernia repair Status post foot surgery Social History housing: long term number of children: 3 current occupational status: disabled Smoking Status: Never smoker Smokeless tobacco user: snuff second hand exposure: No alcohol intake: never substance use type: does not use what type of physical activity do you participate in: other details: health point frequency: 3-4 times per week alba/yazidi: Other seatbelt use: always Physical Exam Const no apparent distress Constitutional Narrative: intubated HEENT normocephalic and head/scalp atraumatic Eyes PERRL Neck supple and No nodes Resp Auscultation: diminished lung sounds Cardio regular rate and regular rhythm GI soft to palpation, non-tender and non-distended Extremity General Extremity: Negative for edema Skin no rashes or lesions noted Neuro CN's II-XII intact bilaterally Lab / Micro Data Attestation: I reviewed the patient's lab results. 01/30/24 04:00 01/30/24 04:00 Labs: Laboratory Results - last 24 hr 01/30/24 04:00: WBC 13.1 H, RBC 3.18 L, Hgb 9.2 L, Hct 30.0 L, MCV 94.3 H, MCH 28.9, MCHC 30.7 L, RDW Std Deviation 69.0 H, RDW Coeff of Silvia 20.2 H, Plt Count 170, MPV 9.5, Immature Gran % (Auto) 1.800 H, Neut % (Auto) 81.6 H, Lymph % (Auto) 6.4 L, Hickman % (Auto) 8.3, Eos % (Auto) 1.3, Baso % (Auto) 0.6, Absolute Neuts (auto) 10.7 H, Absolute Lymphs (auto) 0.84, Nucleated RBC % 0.2, Sodium 133 L, Potassium 3.7, Chloride 100, Carbon Dioxide 21.0, Anion Gap 12, BUN 50 H, Creatinine 4.65 H, Estim Creat Clear Calc 18.16, Est GFR (MDRD) Af Amer 16 L, Est GFR (MDRD) Non-Af 14 L, BUN/Creatinine Ratio 10.8, Glucose 241 H, Calcium 7.8 L 01/30/24 09:28: POC Glucose 183 H 01/30/24 11:46: POC Glucose 218 H Micro: Microbiology 01/26/24 07:45 Blood Culture (Wb) - Left Foot Blood Culture - Preliminary Coag Negative Staph
[2024-01-30 16:59] LABS: Bedside Glucose 194 mg/dL (74-106)
[2024-01-30] MEDS: Atorvastatin Calcium 20 MG Tablet GT (20:48)
[2024-01-30] MEDS: Latanoprost 0.005% 1 Bottle 1 DRP RIGHT EYE (20:48)
--- NOTE | 2024-01-30 22:06 | PN.RENAL_ITS ---
Subjective Subjective s/p HD this am. remains on ventilator Objective Data Objective Data Vital Signs: Vital Signs Temp Pulse Resp BP Pulse Ox O2 Del Method FiO2 96.7 F L 104 H 14 77/59 L 97 Mechanical Ventilator 21 01/30/24 20:00 01/30/24 22:00 01/30/24 22:00 01/30/24 22:00 01/30/24 22:00 01/30/24 22:00 01/30/24 22:00 Oxygen Delivery Method Mechanical Ventilator Weight: 85.8 kg Body Mass Index (BMI) 27.1 Intake & Output: Intake and Output for Last 24 Hours 01/28/24 01/29/24 01/30/24 23:59 23:59 23:59 Intake Total 2059.52 / 2131.32 1925.44 / 2442.11 1658.98 / 1658.98 Output Total 4260 / 4260 Balance 2049.52 / 2121.32 1900.44 / 2417.11 -2601.02 / -2601.02 Lab / Micro Data 01/30/24 04:00 01/30/24 04:00 Labs: Laboratory Results - last 24 hr 01/30/24 04:00: WBC 13.1 H, RBC 3.18 L, Hgb 9.2 L, Hct 30.0 L, MCV 94.3 H, MCH 28.9, MCHC 30.7 L, RDW Std Deviation 69.0 H, RDW Coeff of Silvia 20.2 H, Plt Count 170, MPV 9.5, Immature Gran % (Auto) 1.800 H, Neut % (Auto) 81.6 H, Lymph % (Auto) 6.4 L, [place] % (Auto) 8.3, Eos % (Auto) 1.3, Baso % (Auto) 0.6, Absolute Neuts (auto) 10.7 H, Absolute Lymphs (auto) 0.84, Nucleated RBC % 0.2, Sodium 133 L, Potassium 3.7, Chloride 100, Carbon Dioxide 21.0, Anion Gap 12, BUN 50 H, Creatinine 4.65 H, Estim Creat Clear Calc 18.16, Est GFR (MDRD) Af Amer 16 L, E st GFR (MDRD) Non-Af 14 L, BUN/Creatinine Ratio 10.8, Glucose 241 H, Calcium 7.8 L 01/30/24 09:28: POC Glucose 183 H 01/30/24 11:46: POC Glucose 218 H 01/30/24 16:32: POC Glucose 194 H Micro: Microbiology 01/26/24 07:45 Blood Culture (Wb) - Left Foot Blood Culture - Preliminary Coag Negative Staph 01/26/24 08:10 Sputum, Induced/Lukens Gram Stain - Final 01/26/24 08:10 Sputum, Induced/Lukens Respiratory Culture - Final ESBL Escherichia coli Streptococcus group C 01/26/24 08:05 Blood Culture (Wb) - Venous Blood Culture - Preliminary No growth in 48 hours. 01/26/24 08:00 Urine, Catheterized Urine Culture - Final Culture exhibits no growth. 01/26/24 08:24 Stool Stool Occult Blood (EMILY) - Final Occult Blood Positive Physical Exam Narrative General: On ventilator, HEENT: Normocephalic, atraumatic. Intubated, mucous membrane. Neck: Supple, no JVD. Trachea is midline. No thyromegaly or lymphadenopathy. Cardiovascular: Irregularly irregular S1, S2. Tachycardic, no rubs, murmurs, or gallops. Respiratory: Lungs are coarse auscultation bilaterally. Abdomen: Normal bowel sounds, soft, nontender, no guarding or rebound, no organomegaly. Extremities: No clubbing, cyanosis, or edema. Assessment & Plan Assessment/Plan (1) ESRD (end stage renal disease) on dialysis: (2) Acute hypoxic respiratory failure: PLAN: Plan Impression/Plan: The patient is a 63-year-old male with past history of ESRD, type 2 diabetes mellitus, hypertension, stroke, atrial fibrillation, seizure disorder, and hyperlipidemia. Patient was admitted to the hospital on 01/26/2024 because of PEA arrest at [facility] with acute hypoxic/hypercapnic respiratory failure requiring ventilator support. Nephrology is following for ESRD and dialysis need. ESRD. Patient usually dialyzes on a 4 days/week schedule with NxStage machine at [facility] (Tuesday, Tuesday, and Tuesday). Patient was dialyzed on 01/24/2024. Will keep on MWF schedule here HD today. about 2 L off Acute hypoxic respiratory failure in the setting of PEA arrest. Patient remains ventilator dependent. Management of ventilator as per oracle programmer.
[2024-01-31] VITALS (34 sets, daily range): BP systolic 84–123; BP diastolic 60–86; PULSE 79–117; RESP 12–35; TEMP 35.2–36.6; O2SAT 94–98; BMI 27.7
[2024-01-31] MEDS: Menthol/Lanolin/Calamine/Znox 113 GM Tube 1 APPLIC TOPICAL ×3 (05:00→20:26)
[2024-01-31 07:08] LABS: Anion Gap 10 (5-15); BUN 41 mg/dL (7-18); BUN/Creat Ratio 11.3 RATIO (10-20); Chloride 101 mmol/L (98-107); Creatinine, Serum 3.64 mg/dL (0.70-1.30); EST Glomerular Filtration Rate 18 mL/min (>60); Est Glom Filt Rate - Afr Amer 22 mL/min (>60); Estimated Creatinine Clearance 21.45 ml/min; Glucose 204 mg/dL (74-106); Potassium 3.6 mmol/L (3.5-5.1); Sodium Level 133 mmol/L (136-145)
[2024-01-31 07:11] LABS: Bedside Glucose 184 mg/dL (74-106)
[2024-01-31] MEDS: Insulin Lispro 100 UNIT/ML INSULN.PEN SC (07:24)
[2024-01-31] MEDS: 0.9% Saline Lock 10 ML Syringe IV (07:25)
--- NOTE | 2024-01-31 07:28 | PN.CC_ITS ---
Assessment & Plan Assessment/Plan (1) Acute hypoxic respiratory failure: PLAN: Plan RECOMMENDATIONS: 1. Continue assist-control mode mechanical ventilation. Wean FiO2 and PEEP to maintain saturations at or above 90%. 2. Continue daily spontaneous breathing trials. 3. Continue antimicrobials per ID recommendations. 4. Transfuse packed red blood cells if hemoglobin drops below 7 g/dL. 5. Continue PPI therapy. 6. Dialysis support per nephrology recommendations. IMPRESSIONS: 1. Acute on chronic hypoxemic respiratory failure in the setting of cardiopulmonary arrest/ESBL E. coli and group C strep pneumonia The patient has a known history of chronic hypoxemic respiratory failure with a baseline oxygen requirement of 2 L/min. The patient was found down at his nursing facility pulseless and subsequently received CPR, with eventual ROSC. I do suspect that his current respiratory status is likely the consequence of hypervolemia, which likely developed secondary to recent incomplete dialysis sessions. In addition, the patient's sputum culture was positive for ESBL E. coli and group C strep pneumonia. Accordingly, the patient has been maintained on appropriate antimicrobial therapy. He will be continued on assist-control mode of mechanical ventilation. Plan to continue daily attempts at spontaneous breathing trials. 2. End-stage renal disease on hemodialysis Nephrology following to assist with hemodialysis needs. 3. Acute on chronic anemia The patient has a history of gastric ulcers, which were treated during prior hospitalizations. Gastroenterology is currently following. Plan to transfuse if hemoglobin drops below 7 g/dL. In the interim, continue PPI therapy as ordered. 4. History of hypertension/paroxysmal atrial fibrillation with RVR/history of gastric ulcers/unspecified seizure disorder/HFpEF/diabetes mellitus Complicates care, management, recovery and prognosis. Continue sliding scale insulin coverage for now. Continue to monitor blood counts and transfuse if hemoglobin drops below 7 g/dL. TIME: 32 minutes of critical care time, independent of procedures, was spent addressing the patient's acute on chronic hypoxemic respiratory failure, status postcardiopulmonary arrest, end-stage renal disease on hemodialysis, acute on chronic anemia, review of all data and collaboration with the care team. Subjective Subjective The patient was seen and examined at the bedside this morning. Events from the last 24 hours have been reviewed. The patient is currently afebrile, hemodynamically stable and maintaining appropriate oxygen saturations on assist- control mode mechanical ventilation with an FiO2 requirement of 21% and PEEP of 5. The patient once again failed his spontaneous breathing trial, on account of tachypnea and inadequate tidal volumes. Objective Data Objective Data The patient's most recent lab work, culture data and imaging studies have all been personally reviewed. Surface echocardiogram demonstrated an ejection fraction of 55%. Pulmonary artery systolic pressure was estimated to be 35 mmHg. Stool for occult blood was positive. Sputum culture dated January 25 was positive for ESBL E. coli. Vital Signs: Vital Signs Temp Pulse Resp BP Pulse Ox O2 Del Method FiO2 96.9 F L 102 H 14 84/60 L 98 Mechanical Ventilator 01/31/24 00:00 01/31/24 00:00 01/31/24 00:00 01/31/24 00:00 01/31/24 00:00 01/31/24 00:00 01/31/24 00:00 Oxygen Delivery Method Mechanical Ventilator Weight: 189 lb 2.506 oz Body Mass Index (BMI) 27.1 Intake & Output: Intake and Output for Last 24 Hours 01/29/24 01/30/24 01/31/24 23:59 23:59 23:59 Intake Total 1925.44 / 2442.11 1963.98 / 1966.48 2.5 / 2.5 Output Total 4260 / 4260 Balance 1900.44 / 2417.11 -2296.02 / -2293.52 2.5 / 2.5 Lab / Micro Data Attestation: I reviewed the patient's lab results. 01/31/24 04:45 01/31/24 04:45 Labs: Laboratory Results - last 24 hr 01/30/24 09:28: POC Glucose 183 H 01/30/24 11:46: POC Glucose 218 H 01/30/24 16:32: POC Glucose 194 H 01/30/24 23:39: POC Glucose 184 H Micro: Microbiology 01/26/24 07:45 Blood Culture (Wb) - Left Foot Blood Culture - Preliminary Coag Negative Staph 01/26/24 08:10 Sputum, Induced/Lukens Gram Stain - Final 01/26/24 08:10 Sputum, Induced/Lukens Respiratory Culture - Final ESBL Escherichia coli Streptococcus group C 01/26/24 08:05 Blood Culture (Wb) - Venous Blood Culture - Preliminary No growth in 48 hours. 01/26/24 08:00 Urine, Catheterized Urine Culture - Final Culture exhibits no growth. 01/26/24 08:24 Stool Stool Occult Blood (EMILY) - Final Occult Blood Positive ABG Data ABG results: ABG 01/26/24 09:10 Specimen Type ART Sample Site L Radial pH 7.38 Bicarbonate Actual 25.1 Total CO2 27 Base Excess 0 O2 Saturation 95 O2 % 100.0 ABG pCO2 43.0 ABG pO2 77 Richi Test Positive Respiration Rate 400 O2 Delivery Device Adult Vent Vent Mode AC Tidal Volume 14.0 POC PEEP 5 Radiography Diagnostic Testing: Radiology Impression Brain CT 01/26/24 07:41 IMPRESSION: Chronic involutional changes of the brain. Electronically Signed: Michael Allen MD at 9:19 EDT , Chest X-Ray 01/26/24 07:46 IMPRESSION: The tip of the endotracheal tube is at the origin of the left mainstem bronchus. This should be withdrawn approximately 2.5 cm. Volume loss and possible atelectasis with infiltrate in the right lower lobe with small right pleural effusion. Electronically Signed: Michael Allen MD at 9:21 EDT , Cervical Spine CT 01/26/24 12:40 IMPRESSION: Multilevel degenerative changes, as described above. Electronically Signed: Michael Allen MD at 13:17 EDT , Echocardiogram 01/26/24 13:48 Interpretation Summary The estimated ejection fraction is 55 %. Unable to assess diastolic dysfunction. Trivial mitral valve insufficiency. Ordering Physician: Ashtyn Canseco Referring Physician: Amish Han Performed By: Odette Pineda RDCS and Student Physical Exam Const Constitutional Narrative: Intubated and mechanically ventilated. No ventilator dyssynchrony. HEENT normocephalic and head/scalp atraumatic Mouth: endotracheal tube in place Eyes conjunctivae normal and no scleral icterus Neck supple General: trachea midline Chest inspection of chest normal Resp normal respiratory effort Auscultation: diminished lung sounds; Negative for rales, rhonchi or wheezes Cardio regular rate, regular rhythm, S1 normal heart sound and S2 normal heart sound GI normal to inspection, nondistended, normoactive bowel sounds Extremity General Extremity: edema; Negative for clubbing Skin no rashes or lesions noted Neuro Sensorium / Orientation: sedated on vent Charges/Coding Procedures Hospitalists Procedures: 13043 Critical Care 1st Hr
[2024-01-31 07:43] LABS: Bedside Glucose 178 mg/dL (74-106)
[2024-01-31] MEDS: Chlorhexidine 15 ML PO ×2 (07:45→20:26)
[2024-01-31] MEDS: Amiodarone 200 MG Tablet GT ×3 (07:45→20:25)
[2024-01-31] MEDS: Midodrine HCl 5 MG Tablet 10 MG NG ×3 (07:45→17:12)
[2024-01-31] MEDS: APIXABAN 5 MG TABLET GT ×2 (07:46→20:26)
[2024-01-31] MEDS: Divalproex Sodium 125 MG SPRINKLE 1000 MG NG ×2 (07:46→20:25)
[2024-01-31] MEDS: Insulin Glargine-YFGN 100 UNIT/ML Pen 10 UNIT SC (07:47)
[2024-01-31] MEDS: BRIMONIDINE 0.2% 5ML BOTTLE 1 DRP RIGHT EYE ×2 (07:48→20:24)
--- NOTE | 2024-01-31 07:49 | PN.HOSP_ITS ---
Reason for Visit Reason for Visit: Cardiopulmonary arrest Subjective Subjective Patient reverted back in A-fib yesterday during dialysis. Still did poorly on breathing trial today only pulling tidal volumes of 180. He did not have apneic episodes today however on his breathing trial. Still awakes and follows commands with sedation vacations. Dialysis yesterday for over 2 L fluid removal. Objective Data Objective Data Vital Signs: Vital Signs Temp Pulse Resp BP Pulse Ox O2 Del Method FiO2 96.5 F L 110 H 32 H 91/66 96 Mechanical Ventilator 01/31/24 04:00 01/31/24 07:00 01/31/24 07:00 01/31/24 07:00 01/31/24 07:00 01/31/24 07:00 01/31/24 07:00 Oxygen Delivery Method Mechanical Ventilator Weight: 87.9 kg Body Mass Index (BMI) 27.7 Intake & Output: Intake and Output for Last 24 Hours 01/29/24 01/30/24 01/31/24 23:59 23:59 23:59 Intake Total 1925.44 / 2442.11 1963.98 / 1966.48 1248.33 / 1248.33 Output Total 4260 / 4260 Balance 1900.44 / 2417.11 -2296.02 / -2293.52 1248.33 / 1248.33 Lab / Micro Data 01/30/24 04:00 01/31/24 04:45 Labs: Laboratory Results - last 24 hr 01/30/24 09:28: POC Glucose 183 H 01/30/24 11:46: POC Glucose 218 H 01/30/24 16:32: POC Glucose 194 H 01/30/24 23:39: POC Glucose 184 H 01/31/24 04:45: Sodium 133 L, Potassium 3.6, Chloride 101, Carbon Dioxide 22.0, Anion Gap 10, BUN 41 H, Creatinine 3.64 H, Estim Creat Clear Calc 21.45, Est GFR (MDRD) Af Amer 22 L, Est GFR (MDRD) Non-Af 18 L, BUN/Creatinine Ratio 11.3, G lucose 204 H, Calcium 8.0 L 01/31/24 07:23: POC Glucose 178 H Micro: Microbiology 01/26/24 07:45 Blood Culture (Wb) - Left Foot Blood Culture - Preliminary Coag Negative Staph 01/26/24 08:10 Sputum, Induced/Lukens Gram Stain - Final 01/26/24 08:10 Sputum, Induced/Lukens Respiratory Culture - Final ESBL Escherichia coli Streptococcus group C 01/26/24 08:05 Blood Culture (Wb) - Venous Blood Culture - Preliminary No growth in 48 hours. 01/26/24 08:00 Urine, Catheterized Urine Culture - Final Culture exhibits no growth. 01/26/24 08:24 Stool Stool Occult Blood (EMILY) - Final Occult Blood Positive Physical Exam Const alert, no apparent distress, average body habitus and well nourished; Negative for healthy appearing Constitutional Narrative: Middle-aged, white male, lying in bed on a ventilator, patient is awake and follows commands, appears comfortable, does not appear toxic, nurse at the bedside General Appearance: cooperative HEENT normocephalic, head/scalp atraumatic and moist oral mucous membranes HEENT Narrative: ET tube and OG in place Eyes Negative for conjunctivae normal Resp No normal respiratory effort, no retractions, no use of accessory muscles and clear to auscultation bilaterally Resp Narrative: Intubated, diminished at bases bilaterally Auscultation: Negative for crackles, rhonchi or wheezes Cardio S1 normal heart sound, S2 normal heart sound, no murmurs, no rub, no gallops and no clicks; Negative for regular rate or regular rhythm Cardio Narrative: Irregularly irregular rhythm with tachycardia GI normal to inspection, nondistended, normoactive bowel sounds, soft to palpation and non-tender Extremity Extremity Narrative: Remains with doughy pitting edema up to his hips bilaterally, no cyanosis or clubbing, pedal and radial pulses were 2+ bilaterally Neuro moves all extremities Neuro Narrative: Alert and interacts, following commands consistency while on sedation vacations Sensorium / Orientation: awake and alert Speech: Negative for speech normal Psych Psych Narrative: calm Assessment & Plan Assessment/Plan (1) Cardiopulmonary arrest: (2) Acute hypoxic respiratory failure: (3) Bilateral pleural effusion: (4) Medical non-compliance: (5) Transaminitis: (6) GI bleed: (7) Leukocytosis: (8) Hypotension: (9) Lactic acidosis: PLAN: Plan Cardiopulmonary arrest -etiology is unclear however highly suspect it was related to hypoxia and hypercapnia -Per report was pulseless at the [facility] however no documentation of rhythm and ROSC was achieved prior to EMS arrival -Cardiac enzyme was normal on arrival -Echocardiogram performed and showed an EF of 55% and trivial mitral valve insufficiency with no wall motion abnormality. Acute on chronic hypoxic respiratory failure secondary to volume overload secondary to acute HFpEF/and ESBL E. coli and group C strep pneumonia -Appears that he is on 2 L at baseline based on previous documentation from last admission -Remains on the ventilator at 21% but still doing poorly on breathing trials with poor tidal volumes and intermittent apneic episodes -Dialysis per nephrology -Will fluid restrict is much as possible -Continue meropenem Septic shock secondary to ESBL E. coli and group C strep pneumonia -Continue midodrine 10 mg 3 times daily -Continue meropenem -ID following since organism is ESBL producing Paroxysmal atrial fibrillation with RVR -Has now converted back to normal sinus rhythm -Continue amiodarone oral 200 mg 3 times daily for day 1 of 7 -Will need transitioned to a tapering dose -Metoprolol remains on hold as blood pressures are low normal -Restart once able -Continue Eliquis 5 mg p.o. twice daily -Will need outpatient cardiology follow-up after discharge History of dysphagia -Will need speech therapy consultation after extubation Chronic anemia -Hemoglobin remained stable despite restarting Eliquis on 01/28/2024 -Hemoglobin remained stable currently 8.8 -has history of recent GI bleed -Guaiac was positive however in light of hemoglobin stability will cycle hemoglobin and monitor closely -At this point his hemoglobin remained stable despite being on Eliquis so will plan for outpatient EGD unless clinical status changes Positive guaiac stool -EGD was performed on 11/04/2023 at which time patient was found to have a normal esophagus, oozing gastric ulcers that were injected, treated with heater probe, and clipped and no gross lesions in the duodenum -Eliquis restarted on 01/28/2024 and hemoglobin stable thus far -Repeat CBC in a.m. -Continue IV Protonix now twice daily but will transition back to p.o. Protonix once able Bilateral pleural effusions -right appears greater than left -Continue dialysis -Repeat chest x-ray tomorrow End-stage renal disease on dialysis -Patient has been noncompliant receiving incomplete sessions of dialysis -Continue home calcitriol -Nephrology is following-appreciate input -Plan for dialysis again tomorrow Hypertension -hold amlodipine -Metoprolol on hold Hyperlipidemia -Continue atorvastatin History of gastric ulcers/GERD -See above -IV Protonix twice daily Seizure disorder -Continue valproic acid Acute on chronic heart failure with preserved ejection fraction/pulmonary hypertension/diastolic dysfunction -Echocardiogram done on 08/02/2023 showed an EF of 60% with stage III diastolic dysfunction and mild concentric LVH with moderate pulmonary hypertension showing pulmonary pressures at 65 mmHg -Manage volume status with dialysis -Program Engagement Director following and fluid removal per them as patient does not make much urine Carotid artery stenosis -Dopplers done in 07/2023 show right internal carotid artery with 50 to 69% stenosis/left internal carotid artery with 50 to 69% stenosis and patent antegrade vertebral arteries with slight progression since 2021 -Continue aggressive management of secondary risk factors as able History of stroke -Probably cardioembolic with history -Continue home Eliquis -Continue to control secondary risk factors -Baseline deficits are left-sided hemiparesis DM-2 -A1c was 5.0 in October however patient was anemic at that time -Fasting blood sugar here today was 207 after tube feed him and started -Goal blood sugar is 1 40-1 80 -Increase Lantus from 10 units daily to 16 units daily -Continue moderate dose sliding scale -Every 6 hours BGT's -Once patient extubated and n.p.o. may need to scale back temporarily as his fasting sugars off tube feed were not markedly elevated Anxiety/depression -patient is on no current regimen for treatment DVT prophylaxis -Eliquis 5 mg twice daily CODE STATUS -Full code Charges/Coding Visit Charges Inpatient E&M: 24592 Subs Hosp L2
[2024-01-31 08:15] LABS: Hematocrit 28.5 % (40-54); Hemoglobin 8.8 g/dL (13.0-16.5); Mean Corp Hgb Conc 30.9 g/dL (32-36); Mean Corpuscular Hgb 29.5 pg (27.0-32.0); Mean Corpuscular Volume 95.6 fL (80-94); Mean Platelet Vol. 10.1 fl (6.2-12.0); Platelet Count 152 K/mm3 (150-450); RBC Distribution Width CV 20.2 % (11.6-14.6); RBC Distribution Width SD 70.3 fl (35.1-43.9); Red Blood Count 2.98 M/mm3 (4.6-6.2); White Blood Count 9.5 K/mm3 (4.4-11.0)
[2024-01-31 08:16] LABS: Differential Comment SCANNED; Scan Indicated on CBC? Y/N YES- FLAGS NOTED
[2024-01-31] MEDS: Pantoprazole Sodium 40 MG in 0.9% Normal Saline (100mL MB+) 100 ML 330 MG IV ×2 (09:32→20:26)
[2024-01-31] MEDS: NEPRO TUBE FEED 1,000 ML 50 ML GT (09:34)
[2024-01-31] MEDS: CHLORHEXIDINE GLUC 2% CLOTH 1 EACH TOWELETTE TOPICAL (10:17)
[2024-01-31] MEDS: Meropenem 500 MG in 0.9% Normal Saline (50mL MB+) 50 ML 100 MG IV (10:17)
--- NOTE | 2024-01-31 10:43 | PN.RENAL_ITS ---
Subjective Subjective Remains on ventilator. Minimal FiO2 and PEEP. Failing breathing trials. Hemodynamically stable. Objective Data Objective Data Vital Signs: Vital Signs Temp Pulse Resp BP Pulse Ox O2 Del Method FiO2 95.4 F L 89 12 86/64 L 96 Mechanical Ventilator 21 01/31/24 09:00 01/31/24 09:00 01/31/24 09:00 01/31/24 09:00 01/31/24 07:00 01/31/24 09:00 01/31/24 09:00 Oxygen Delivery Method Mechanical Ventilator Weight: 87.9 kg Body Mass Index (BMI) 27.7 Intake & Output: Intake and Output for Last 24 Hours 01/29/24 01/30/24 01/31/24 23:59 23:59 23:59 Intake Total 1925.44 / 2442.11 1963.98 / 1966.48 1615.41 / 1615.41 Output Total 4260 / 4260 Balance 1900.44 / 2417.11 -2296.02 / -2293.52 1615.41 / 1615.41 Lab / Micro Data 01/31/24 04:45 01/31/24 04:45 Labs: Laboratory Results - last 24 hr 01/30/24 11:46: POC Glucose 218 H 01/30/24 16:32: POC Glucose 194 H 01/30/24 23:39: POC Glucose 184 H 01/31/24 04:45: WBC 9.5, RBC 2.98 L, Hgb 8.8 L, Hct 28.5 L, MCV 95.6 H, MCH 29.5, MCHC 30.9 L, RDW Std Deviation 70.3 H, RDW Coeff of Silvia 20.2 H, Plt Count 152, MPV 10.1, Differential Comment SCANNED, Sodium 133 L, Potassium 3.6, Chloride 101, Carbon Dioxide 22.0, Anion Gap 10, BUN 41 H, Creatinine 3.64 H, Estim Creat Clear Calc 21.45, Est GFR (MDRD) Af Amer 22 L, Est GFR (MDRD) Non-Af 18 L, BUN/Creatinine Ratio 11.3, Glucose 204 H, Calcium 8.0 L 01/31/24 07:23: POC Glucose 178 H Micro: Microbiology 01/26/24 07:45 Blood Culture (Wb) - Left Foot Blood Culture - Final Coag Negative Staph 01/26/24 08:10 Sputum, Induced/Lukens Gram Stain - Final 01/26/24 08:10 Sputum, Induced/Lukens Respiratory Culture - Final ESBL Escherichia coli Streptococcus group C 01/26/24 08:05 Blood Culture (Wb) - Venous Blood Culture - Preliminary No growth in 48 hours. 01/26/24 08:00 Urine, Catheterized Urine Culture - Final Culture exhibits no growth. 01/26/24 08:24 Stool Stool Occult Blood (EMILY) - Final Occult Blood Positive Physical Exam Narrative General: On ventilator, HEENT: Normocephalic, atraumatic. Intubated, mucous membrane. Neck: Supple, no JVD. Trachea is midline. No thyromegaly or lymphadenopathy. Cardiovascular: Irregularly irregular S1, S2. Tachycardic, no rubs, murmurs, or gallops. Respiratory: Lungs are coarse auscultation bilaterally. Abdomen: Normal bowel sounds, soft, nontender, no guarding or rebound, no organomegaly. Extremities: No clubbing, cyanosis, or edema. Assessment & Plan Assessment/Plan (1) ESRD (end stage renal disease) on dialysis: (2) Acute hypoxic respiratory failure: PLAN: Plan Impression/Plan: The patient is a 63-year-old male with past history of ESRD, type 2 diabetes mellitus, hypertension, stroke, atrial fibrillation, seizure disorder, and hyperlipidemia. Patient was admitted to the hospital on 01/26/2024 because of PEA arrest at [facility] with acute hypoxic/hypercapnic respiratory failure requiring ventilator support. Nephrology is following for ESRD and dialysis need. ESRD. Patient usually dialyzes on a 4 days/week schedule with NxStage machine at [facility] (Tuesday, Tuesday, and Tuesday). Will keep on MWF schedule here Received dialysis 01/29. Removed 2 L. Acute hypoxic respiratory failure in the setting of PEA arrest. Patient remains ventilator dependent. Management of ventilator as per wax coating machine tender.
[2024-01-31 12:51] LABS: Bedside Glucose 149 mg/dL (74-106)
[2024-01-31] MEDS: fentaNYL drip 100 ML 2.5 MCG CONT INF (14:45)
--- NOTE | 2024-01-31 15:10 | PCM.PN.ID ---
Physical Exam Narrative Awake on vent, no fever Const no apparent distress Resp normal air movement and clear to auscultation bilaterally Effort and Inspection: mechanically ventilated Cardio regular rate and regular rhythm GI soft to palpation, non-tender and non-distended Skin no rashes or lesions noted ID ID: Route of nutrition/ use of supplements: [] Nutritional Intake: [] IV Site: [] Bland Catheter: [] Assessment & Plan Assessment/Plan (1) ESRD (end stage renal disease) on dialysis: (2) Acute hypoxic respiratory failure: PLAN: Treating for pneumonia with esbl ecoli and strep (+) sputum. On meropenem. No fever. 1 of 2 bcx with CoNS, consistent with contaminant. Wbc now normalized. Plan is for 7 days anastasia. Will follow
[2024-01-31 19:03] LABS: Bedside Glucose 134 mg/dL (74-106)
[2024-01-31] MEDS: Latanoprost 0.005% 1 Bottle 1 DRP RIGHT EYE (20:24)
[2024-01-31] MEDS: Miconazole Nitrate 43 GM Bottle 1 APPLIC TOPICAL (20:24)
[2024-01-31] MEDS: Atorvastatin Calcium 20 MG Tablet GT (20:26)
[2024-02-01] VITALS (45 sets, daily range): BP systolic 100–224; BP diastolic 70–91; PULSE 88–131; RESP 12–32; TEMP 36.2–36.7; O2SAT 92–100; BMI 28.3; BMI 27.8
[2024-02-01] MEDS: Insulin Lispro 100 UNIT/ML INSULN.PEN SC ×2 (00:12→05:10)
[2024-02-01 03:29] LABS: Hematocrit 30.5 % (40-54); Hemoglobin 9.1 g/dL (13.0-16.5); Mean Corp Hgb Conc 29.8 g/dL (32-36); Mean Corpuscular Hgb 28.3 pg (27.0-32.0); Mean Platelet Vol. 9.5 fl (6.2-12.0); POSITIVE MORPHOLOGY YES; Platelet Count 172 K/mm3 (150-450); RBC Distribution Width CV 20.1 % (11.6-14.6); RBC Distribution Width SD 70.2 fl (35.1-43.9); Red Blood Count 3.21 M/mm3 (4.6-6.2); White Blood Count 10.7 K/mm3 (4.4-11.0)
[2024-02-01 03:43] LABS: Scan Indicated on CBC? Y/N YES- FLAGS NOTED
[2024-02-01 03:47] LABS: Anion Gap 11 (5-15); BUN 50 mg/dL (7-18); BUN/Creat Ratio 12.3 RATIO (10-20); Calcium,Total 7.9 mg/dL (8.5-10.1); Chloride 98 mmol/L (98-107); Creatinine, Serum 4.06 mg/dL (0.70-1.30); EST Glomerular Filtration Rate 16 mL/min (>60); Est Glom Filt Rate - Afr Amer 19 mL/min (>60); Glucose 208 mg/dL (74-106); Potassium 3.7 mmol/L (3.5-5.1); Sodium Level 131 mmol/L (136-145)
[2024-02-01] MEDS: Menthol/Lanolin/Calamine/Znox 113 GM Tube 1 APPLIC TOPICAL ×3 (05:09→20:49)
[2024-02-01] MEDS: Amiodarone 200 MG Tablet GT ×3 (05:09→20:48)
[2024-02-01 05:17] LABS: Bedside Glucose 150 mg/dL (74-106)
[2024-02-01 05:32] LABS: Bedside Glucose 186 mg/dL (74-106)
--- NOTE | 2024-02-01 07:04 | PN.HOSP_ITS ---
Reason for Visit Reason for Visit: Diagnoses Elevated white blood cell count, unspecified (01/26/24) Acidosis, unspecified (01/26/24) Cardiac arrest, cause unspecified (01/26/24) Hypotension, unspecified (01/26/24) Pneumonia, unspecified organism (01/26/24) Pleural effusion, not elsewhere classified (01/26/24) Acute respiratory failure with hypoxia (01/26/24) Gastrointestinal hemorrhage, unspecified (01/26/24) End stage renal disease (01/26/24) Elevation of levels of liver transaminase levels (01/26/24) Patient's noncompliance with other medical treatment and regimen due to unspecified reason (01/26/24) Dependence on renal dialysis (01/26/24) Subjective Subjective Extubated today. Denies complaints. Midodrine d/c'd today. Objective Data Objective Data Vital Signs: Vital Signs Temp Pulse Resp BP Pulse Ox O2 Del Method FiO2 36.7 C 98 30 H 121/75 H 97 Mechanical Ventilator 21 02/01/24 04:00 02/01/24 07:01 02/01/24 07:01 02/01/24 05:59 02/01/24 07:01 02/01/24 05:59 02/01/24 05:59 Oxygen Delivery Method Mechanical Ventilator Weight: 89.6 kg Body Mass Index (BMI) 28.3 Intake & Output: Intake and Output for Last 24 Hours 01/30/24 01/31/24 02/01/24 23:59 23:59 23:59 Intake Total 1963.98 / 1966.48 2120.42 / 2422.92 1534.17 / 1534.17 Output Total 4260 / 4260 40 / 40 Balance -2296.02 / -2293.52 2080.42 / 2382.92 1514.17 / 1514.17 Lab / Micro Data 02/01/24 03:05 02/01/24 03:05 Labs: Laboratory Results - last 24 hr 01/30/24 23:39: POC Glucose 184 H 01/31/24 04:45: WBC 9.5, RBC 2.98 L, Hgb 8.8 L, Hct 28.5 L, MCV 95.6 H, MCH 29.5, MCHC 30.9 L, RDW Std Deviation 70.3 H, RDW Coeff of Silvia 20.2 H, Plt Count 152, MPV 10.1, Differential Comment SCANNED, Sodium 133 L, Potassium 3.6, Chloride 101, Carbon Dioxide 22.0, Anion Gap 10, BUN 41 H, Creatinine 3.64 H, Estim Creat Clear Calc 21.45, Est GFR (MDRD) Af Amer 22 L, Est GFR (MDRD) Non-Af 18 L, BUN/Creatinine Ratio 11.3, Glucose 204 H, Calcium 8.0 L 01/31/24 07:23: POC Glucose 178 H 01/31/24 12:27: POC Glucose 149 H 01/31/24 17:25: POC Glucose 134 H 02/01/24 00:10: POC Glucose 150 H 02/01/24 03:05: WBC 10.7, RBC 3.21 L, Hgb 9.1 L, Hct 30.5 L, MCV 95.0 H, MCH 28.3, MCHC 29.8 L, RDW Std Deviation 70.2 H, RDW Coeff of Silvia 20.1 H, Plt Count 172, MPV 9.5, Sodium 131 L, Potassium 3.7, Chloride 98, Carbon Dioxide 22.0, Anion Gap 11, BUN 50 H, Creatinine 4.06 H, Estim Creat Clear Calc 20.80, Est GFR (MDRD) Af Amer 19 L, Est GFR (MDRD) Non-Af 16 L, BUN/Creatinine Ratio 12.3, G lucose 208 H, Calcium 7.9 L 02/01/24 05:08: POC Glucose 186 H Micro: Microbiology 01/26/24 07:45 Blood Culture (Wb) - Left Foot Blood Culture - Final Coag Negative Staph 01/26/24 08:05 Blood Culture (Wb) - Venous Blood Culture - Final No growth in 5 days. 01/26/24 08:10 Sputum, Induced/Lukens Gram Stain - Final 01/26/24 08:10 Sputum, Induced/Lukens Respiratory Culture - Final ESBL Escherichia coli Streptococcus group C 01/26/24 08:00 Urine, Catheterized Urine Culture - Final Culture exhibits no growth. 01/26/24 08:24 Stool Stool Occult Blood (EMILY) - Final Occult Blood Positive Physical Exam Const alert and no apparent distress Constitutional Narrative: on nasal canula. no respiratory distress. no conversational dyspnea. Resp normal respiratory effort, no retractions, no use of accessory muscles and clear to auscultation bilaterally Cardio regular rate, regular rhythm, S1 normal heart sound and S2 normal heart sound GI normal to inspection, nondistended, normoactive bowel sounds, soft to palpation, non-tender and non-distended Extremity normal to inspection and full ROM Neuro Sensorium / Orientation: awake and alert Assessment & Plan Assessment/Plan (1) Cardiopulmonary arrest: (2) Acute hypoxic respiratory failure: (3) Bilateral pleural effusion: (4) Medical non-compliance: (5) Transaminitis: (6) GI bleed: (7) Leukocytosis: (8) Hypotension: (9) Lactic acidosis: PLAN: Plan Cardiopulmonary arrest * Rhythm not reported but suspected patient was in PEA. Etiology of suspected PEA unclear. Patient did have successful ROSC prior to arrival * Echocardiogram on January 25 showed an EF of 55% Acute on chronic hypoxic respiratory failure * secondary to volume overload secondary to acute HFpEF and ESRDand ESBL E. coli and group C strep pneumonia * Chronically on 2 L nasal cannula at baseline. * Remains on the ventilator at 21% but still doing poorly on breathing trials with poor tidal volumes and intermittent apneic episodes * Dialysis per nephrology. Fluid restrict is much as possible Septic shock * Present on admission * Secondary to ESBL E. coli and group C strep pneumonia * Continue midodrine 10 mg 3 times daily * Continue meropenem * ID following Paroxysmal atrial fibrillation with RVR * Has now converted back to normal sinus rhythm * Continue amiodarone oral 200 mg 3 times daily for day 1 of 7, then taper * Metoprolol remains on hold as blood pressures are low normal * Anticoagulation with apixaban 5 mg twice daily Bilateral pleural effusions * noted on CXR on 01/25 (not present on 11/03) * suspect transudative. Hold off on thoracentesis for now. * recheck CXR End-stage renal disease on dialysis * Reported non-complaince * Normally on HD 4x/week. In the hospital, MWF. DM-2 * Fair control * glargine 16/d and SSI. Chronic conditions * history of dysphagia-Will need speech therapy consultation after extubation * Anemia of chronic disease: stable. Follow up with GI as outpt given heme+stools. * Hypertension -hold amlodipine and metoprolol tartrate given hypotension * Hyperlipidemia-Continue atorvastatin * History of gastric ulcers/GERD-IV Protonix twice daily * Seizure disorder-Continue valproic acid * Carotid artery stenosis-Dopplers done in 07/2023 show right internal carotid artery with 50 to 69% stenosis/left internal carotid artery with 50 to 69% stenosis and patent antegrade vertebral arteries with slight progression since 2021-Continue aggressive management of secondary risk factors as able. Follow up with vascular surgery as outpt. * History of stroke-Probably cardioembolic with history-Continue apixaban- Baseline deficits are left-sided hemiparesis DVT prophylaxis not indicated as patient is on apixaban CODE STATUS-Full code Charges/Coding Visit Charges Inpatient E&M: 17645 Subs Hosp L2
--- NOTE | 2024-02-01 07:16 | RAD_ITS ---
EXAM: XR CHEST, 1 VIEW CLINICAL INDICATION: RESPIRATORY FAILURE TECHNIQUE: Frontal view of the chest. COMPARISON: Single view chest 01/26/2024 FINDINGS: LUNGS AND PLEURAL SPACES: Moderate pleural effusions with bibasilar airspace disease. No pneumothorax. HEART: Cardiac silhouette is mildly enlarged. MEDIASTINUM: Central airways and mediastinal contour are unremarkable. BONES/JOINTS: Unremarkable. No acute fracture. SOFT TISSUES: Unremarkable. TUBES, LINES AND DEVICES: Endotracheal tube with tip 2.7 cm above the lore. Enteric tube extending below the level of the GE junction. Right chest central venous catheter. RAD/Chest 1 View (Portable) IMPRESSION: Moderate pleural effusions with bibasilar airspace disease. Findings may indicate atelectasis or infection. Electronically Signed: José Luis Miramontes MD at 7:52 EDT ,
[2024-02-01] MEDS: PureFlow B 4K Dialysis Soln 1 BAG BAG 6 BAG PF (07:54)
[2024-02-01] MEDS: 0.9% Normal Saline 1,000 ML IV.SOLN. 1000 ML OPERA.SITE (07:54)
[2024-02-01] MEDS: 0.9% Saline Lock 10 ML Syringe IV (07:55)
--- NOTE | 2024-02-01 08:27 | PN.CC_ITS ---
Assessment & Plan Assessment/Plan (1) Acute hypoxic respiratory failure: PLAN: Plan RECOMMENDATIONS: 1. Proceed with a trial of extubation this morning. Recommend extubating directly to BiPAP therapy. 2. If the patient does well on BiPAP therapy over the course of the morning, he can be transition to nasal cannula oxygen. 3. Antimicrobials per ID recommendations. 4. Transfuse packed red blood cells if hemoglobin drops below 7 g/dL. 5. Continue PPI therapy. 6. Dialysis support per nephrology recommendations. IMPRESSIONS: 1. Acute on chronic hypoxemic respiratory failure in the setting of cardiopulmonary arrest/ESBL E. coli and group C strep pneumonia The patient has a known history of chronic hypoxemic respiratory failure with a baseline oxygen requirement of 2 L/min. The patient was found down at his nursing facility pulseless and subsequently received CPR, with eventual ROSC. I do suspect that his current respiratory status is likely the consequence of hypervolemia, which likely developed secondary to recent incomplete dialysis sessions. In addition, the patient's sputum culture was positive for ESBL E. coli and group C strep pneumonia. Accordingly, the patient has been maintained on appropriate antimicrobial therapy. Although the patient has done marginal on multiple spontaneous breathing trials, I am going to plan to proceed with extubation directly to BiPAP therapy this morning. If the patient does well with BiPAP, he can be de-escalated to nasal cannula supplemental oxygen later today. 2. End-stage renal disease on hemodialysis Nephrology following to assist with hemodialysis needs. 3. Acute on chronic anemia The patient has a history of gastric ulcers, which were treated during prior hospitalizations. Gastroenterology is currently following. Plan to transfuse if hemoglobin drops below 7 g/dL. In the interim, continue PPI therapy as ordered. 4. History of hypertension/paroxysmal atrial fibrillation with RVR/history of gastric ulcers/unspecified seizure disorder/HFpEF/diabetes mellitus Complicates care, management, recovery and prognosis. Continue sliding scale insulin coverage for now. Continue to monitor blood counts and transfuse if hemoglobin drops below 7 g/dL. TIME: 34 minutes of critical care time, independent of procedures, was spent addressing the patient's acute on chronic hypoxemic respiratory failure, status postcardiopulmonary arrest, end-stage renal disease on hemodialysis, acute on chronic anemia, review of all data and collaboration with the care team. Subjective Subjective The patient was seen and examined at the bedside this morning. Events from the last 24 hours have been reviewed. The patient is currently afebrile, hemodynamically stable and maintaining appropriate oxygen saturations on spontaneous mode mechanical ventilation with an FiO2 requirement of 21%. The patient once again did marginal on his spontaneous breathing trial with tidal volumes in the 200-300 range. He is alert and able to follow commands. Therefore, the patient was subsequently extubated to BiPAP therapy. There are plans to proceed with dialysis again today. Morning labs are stable. Objective Data Objective Data The patient's most recent lab work, culture data and imaging studies have all been personally reviewed. Surface echocardiogram demonstrated an ejection fraction of 55%. Pulmonary artery systolic pressure was estimated to be 35 mmHg. Stool for occult blood was positive. Sputum culture dated January 25 was positive for ESBL E. coli. Vital Signs: Vital Signs Temp Pulse Resp BP Pulse Ox O2 Del Method FiO2 98.1 F 106 H 16 111/76 98 Bi-pap 21 02/01/24 04:00 02/01/24 08:11 02/01/24 08:11 02/01/24 08:11 02/01/24 08:11 02/01/24 08:11 02/01/24 08:11 Oxygen Delivery Method Bi-pap Weight: 197 lb 8.547 oz Body Mass Index (BMI) 28.3 Intake & Output: Intake and Output for Last 24 Hours 01/30/24 01/31/24 02/01/24 23:59 23:59 23:59 Intake Total 1963.98 / 1966.48 2120.42 / 2422.92 1534.17 / 1534.17 Output Total 4260 / 4260 40 / 40 20 / 20 Balance -2296.02 / -2293.52 2080.42 / 2382.92 1514.17 / 1514.17 Lab / Micro Data Attestation: I reviewed the patient's lab results. 02/01/24 03:05 02/01/24 03:05 Labs: Laboratory Results - last 24 hr 01/31/24 12:27: POC Glucose 149 H 01/31/24 17:25: POC Glucose 134 H 02/01/24 00:10: POC Glucose 150 H 02/01/24 03:05: WBC 10.7, RBC 3.21 L, Hgb 9.1 L, Hct 30.5 L, MCV 95.0 H, MCH 28.3, MCHC 29.8 L, RDW Std Deviation 70.2 H, RDW Coeff of Silvia 20.1 H, Plt Count 172, MPV 9.5, Sodium 131 L, Potassium 3.7, Chloride 98, Carbon Dioxide 22.0, Anion Gap 11, BUN 50 H, Creatinine 4.06 H, Estim Creat Clear Calc 20.80, Est GFR (MDRD) Af Amer 19 L, Est GFR (MDRD) Non-Af 16 L, BUN/Creatinine Ratio 12.3, G lucose 208 H, Calcium 7.9 L 02/01/24 05:08: POC Glucose 186 H Micro: Microbiology 01/26/24 07:45 Blood Culture (Wb) - Left Foot Blood Culture - Final Coag Negative Staph 01/26/24 08:05 Blood Culture (Wb) - Venous Blood Culture - Final No growth in 5 days. 01/26/24 08:10 Sputum, Induced/Lukens Gram Stain - Final 01/26/24 08:10 Sputum, Induced/Lukens Respiratory Culture - Final ESBL Escherichia coli Streptococcus group C 01/26/24 08:00 Urine, Catheterized Urine Culture - Final Culture exhibits no growth. 01/26/24 08:24 Stool Stool Occult Blood (EMILY) - Final Occult Blood Positive ABG Data ABG results: ABG 01/26/24 09:10 Specimen Type ART Sample Site L Radial pH 7.38 Bicarbonate Actual 25.1 Total CO2 27 Base Excess 0 O2 Saturation 95 O2 % 100.0 ABG pCO2 43.0 ABG pO2 77 Richi Test Positive Respiration Rate 400 O2 Delivery Device Adult Vent Vent Mode AC Tidal Volume 14.0 POC PEEP 5 Radiography Diagnostic Testing: Radiology Impression Chest X-Ray 02/01/24 07:16 IMPRESSION: Moderate pleural effusions with bibasilar airspace disease. Findings may indicate atelectasis or infection. Electronically Signed: José Luis Miramontes MD at 7:52 EDT , Physical Exam Const Constitutional Narrative: Remains intubated and mechanically ventilated. HEENT normocephalic and head/scalp atraumatic Mouth: endotracheal tube in place Eyes conjunctivae normal and no scleral icterus Neck supple General: trachea midline Chest inspection of chest normal Resp normal respiratory effort Auscultation: diminished lung sounds; Negative for rales, rhonchi or wheezes Cardio regular rate, regular rhythm, S1 normal heart sound and S2 normal heart sound GI normal to inspection, nondistended, normoactive bowel sounds Extremity General Extremity: edema; Negative for clubbing Skin no rashes or lesions noted Neuro Neuro Narrative: Alert and able to follow simple commands. Charges/Coding Procedures Hospitalists Procedures: 29839 Critical Care 1st Hr
[2024-02-01] MEDS: Insulin Glargine-YFGN 100 UNIT/ML Pen 16 UNIT SC (10:22)
[2024-02-01 10:41] LABS: Bedside Glucose 128 mg/dL (74-106)
[2024-02-01] MEDS: Heparin 10,000 UNITS/10 ML Vial IV (10:58)
--- NOTE | 2024-02-01 11:05 | CASEMGMT ---
SW asked [facility] via [employer] if they have a DNR for patient. [facility] notified SW that patient is a full code. SW notified ICU secretary office clerk to notify RN. Angie ELIAS
[2024-02-01] MEDS: Pantoprazole Sodium 40 MG in 0.9% Normal Saline (100mL MB+) 100 ML 330 MG IV ×2 (11:20→21:00)
[2024-02-01] MEDS: BRIMONIDINE 0.2% 5ML BOTTLE 1 DRP RIGHT EYE ×2 (11:21→20:48)
[2024-02-01] MEDS: Miconazole Nitrate 43 GM Bottle 1 APPLIC TOPICAL ×2 (11:21→20:49)
[2024-02-01] MEDS: CHLORHEXIDINE GLUC 2% CLOTH 1 EACH TOWELETTE TOPICAL (11:38)
[2024-02-01] MEDS: Meropenem 500 MG in 0.9% Normal Saline (50mL MB+) 50 ML 100 MG IV (11:49)
--- NOTE | 2024-02-01 13:38 | CASEMGMT ---
Per RN patient is more alert now. This SW and LINDA Taylory met with patient. Patient was sleeping, but he did wake up when SW said his name. SW told patient there was some confusion regarding his goals of care. SW asked patient if he wants to be a full code. Patient said yes and nodded his head. SW asked patient if his heart stops would he want staff to do CPR? Patient said yes he would. SW asked patient if he knew why his family said he would not want that and patient did not know. LINDA updated RN. SW would like to spend a little more time talking with patient when he is not so sleepy. SW will check back as able. Angie Stewart [employer]VEILLANCE SYSTEMS ENGINEER JADA
--- NOTE | 2024-02-01 14:21 | PCM.PN.REN ---
Subjective Subjective Extubated today. Currently alert, awake. Objective Data Objective Data Vital Signs: Vital Signs Temp Pulse Resp BP Pulse Ox O2 Del Method O2 Flow Rate 97.8 F 99 14 116/87 H 99 Nasal Cannula 4 02/01/24 12:00 02/01/24 14:00 02/01/24 14:00 02/01/24 14:00 02/01/24 14:00 02/01/24 14:00 02/01/24 14:00 FiO2 21 02/01/24 08:11 Oxygen Flow Rate (L/min) 4 Oxygen Delivery Method Nasal Cannula Weight: 88 kg Body Mass Index (BMI) 27.8 Intake & Output: Intake and Output for Last 24 Hours 01/30/24 01/31/24 02/01/24 23:59 23:59 23:59 Intake Total 1963.98 / 1966.48 2120.42 / 2422.92 1704.17 / 1704.17 Output Total 4260 / 4260 40 / 40 1670 / 1670 Balance -2296.02 / -2293.52 2080.42 / 2382.92 34.17 / 34.17 Lab / Micro Data 02/01/24 03:05 02/01/24 03:05 Labs: Laboratory Results - last 24 hr 01/31/24 17:25: POC Glucose 134 H 02/01/24 00:10: POC Glucose 150 H 02/01/24 03:05: WBC 10.7, RBC 3.21 L, Hgb 9.1 L, Hct 30.5 L, MCV 95.0 H, MCH 28.3, MCHC 29.8 L, RDW Std Deviation 70.2 H, RDW Coeff of Silvia 20.1 H, Plt Count 172, MPV 9.5, Sodium 131 L, Potassium 3.7, Chloride 98, Carbon Dioxide 22.0, Anion Gap 11, BUN 50 H, Creatinine 4.06 H, Estim Creat Clear Calc 20.80, Est GFR (MDRD) Af Amer 19 L, Est GFR (MDRD) Non-Af 16 L, BUN/Creatinine Ratio 12.3, Glucose 208 H, Calcium 7.9 L 02/01/24 05:08: POC Glucose 186 H 02/01/24 10:21: POC Glucose 128 H Micro: Microbiology 01/26/24 07:45 Blood Culture (Wb) - Left Foot Blood Culture - Final Coag Negative Staph 01/26/24 08:05 Blood Culture (Wb) - Venous Blood Culture - Final No growth in 5 days. 01/26/24 08:10 Sputum, Induced/Lukens Gram Stain - Final 01/26/24 08:10 Sputum, Induced/Lukens Respiratory Culture - Final ESBL Escherichia coli Streptococcus group C 01/26/24 08:00 Urine, Catheterized Urine Culture - Final Culture exhibits no growth. 01/26/24 08:24 Stool Stool Occult Blood (EMILY) - Final Occult Blood Positive Radiography Diagnostic Testing: Radiology Impression Chest X-Ray 02/01/24 07:16 IMPRESSION: Moderate pleural effusions with bibasilar airspace disease. Findings may indicate atelectasis or infection. Electronically Signed: José Luis Miramontes MD at 7:52 EDT , Physical Exam Narrative HEENT: Normocephalic, atraumatic. Intubated, mucous membrane. Neck: Supple, no JVD. Trachea is midline. No thyromegaly or lymphadenopathy. Cardiovascular: Irregularly irregular S1, S2. Tachycardic, no rubs, murmurs, or gallops. Respiratory: Lungs are coarse auscultation bilaterally. Abdomen: Normal bowel sounds, soft, nontender, no guarding or rebound, no organomegaly. Extremities: No clubbing, cyanosis, or edema. Assessment & Plan Assessment/Plan (1) ESRD (end stage renal disease) on dialysis: (2) Acute hypoxic respiratory failure: PLAN: Plan Impression/Plan: The patient is a 63-year-old male with past history of ESRD, type 2 diabetes mellitus, hypertension, stroke, atrial fibrillation, seizure disorder, and hyperlipidemia. Patient was admitted to the hospital on 01/26/2024 because of PEA arrest at [facility] with acute hypoxic/hypercapnic respiratory failure requiring ventilator support. Nephrology is following for ESRD and dialysis need. ESRD. Patient usually dialyzes on a 4 days/week schedule with [facility] machine at [facility] (Tuesday, Tuesday, and Tuesday). Will keep on MWF schedule here Seen on dialysis today. Acute hypoxic respiratory failure in the setting of PEA arrest. Extubated today
[2024-02-01] MEDS: APIXABAN 5 MG TABLET GT (20:48)
[2024-02-01] MEDS: Latanoprost 0.005% 1 Bottle 1 DRP RIGHT EYE (20:48)
[2024-02-01] MEDS: Divalproex Sodium 125 MG SPRINKLE 1000 MG NG (20:48)
[2024-02-01] MEDS: Atorvastatin Calcium 20 MG Tablet GT (20:49)
[2024-02-01 23:24] LABS: Bedside Glucose 82 mg/dL (74-106)
[2024-02-02] VITALS (17 sets, daily range): BP systolic 92–117; BP diastolic 67–81; PULSE 91–123; RESP 12–31; TEMP 36.1–36.8; O2SAT 93–98; BMI 27.9
[2024-02-02] MEDS: Dextrose 10%-Water 250 ML 999 ML IV ×3 (03:30→08:35)
--- NOTE | 2024-02-02 03:42 | NURSING ---
Addendum entered by Aimee Ruff 02/02/24 05:26: Blood sugar was 99 after D10 bolus. At 0520 for AM blood sugar check, it was back down to 67. Another 125 mL D10 given IV. Original Note: Blood sugar checked around 0310 and it was 62. Pt given apple juice, recheck was 60. Pt did not want to drink any more juice, so 125 mL D10 infused.
[2024-02-02 04:12] LABS: Bedside Glucose 99 mg/dL (74-106)
[2024-02-02] MEDS: Menthol/Lanolin/Calamine/Znox 113 GM Tube 1 APPLIC TOPICAL ×3 (05:23→23:46)
[2024-02-02] MEDS: 0.9% Saline Lock 10 ML Syringe IV (05:23)
[2024-02-02] MEDS: Amiodarone 200 MG Tablet GT (05:23)
[2024-02-02 05:45] LABS: Bedside Glucose 67 mg/dL (74-106)
--- NOTE | 2024-02-02 05:55 | RAD_ITS ---
EXAM: XR CHEST, 1 VIEW CLINICAL INDICATION: Respiratory failure TECHNIQUE: Frontal view of the chest. COMPARISON: 02/01/2024. FINDINGS: LUNGS AND PLEURAL SPACES: Persistent pleural and parenchymal disease left lower chest. No pneumothorax. No effusion. HEART: Stable mild cardiomegaly. MEDIASTINUM: Central airways and mediastinal contour are unremarkable. BONES/JOINTS: Unremarkable. No acute fracture. SOFT TISSUES: Unremarkable. TUBES, LINES AND DEVICES: Endotracheal tube has been removed. NG tube has been removed. No change in the dialysis catheter. RAD/Chest 1 View (Portable) IMPRESSION: 1. Endotracheal tube has been removed. 2. NG tube has been removed. 3. No change in the dialysis catheter. 4. Persistent pleural and parenchymal disease left lower chest. 5. Stable mild cardiomegaly. Electronically Signed: Harjit Adame MD at 5:41 EDT ,
[2024-02-02 06:01] LABS: Bedside Glucose 85 mg/dL (74-106)
--- NOTE | 2024-02-02 06:54 | PCM.PN.INT ---
Assessment & Plan Assessment/Plan (1) Acute hypoxic respiratory failure: PLAN: Plan RECOMMENDATIONS: 1. Supplemental oxygen, as needed, to maintain saturations at or above 90%. 2. Continue antimicrobials per ID recommendations. 3. Transfuse packed red blood cells if hemoglobin drops below 7 g/dL. 4. Continue PPI therapy. 5. Dialysis support per nephrology recommendations. 6. The patient is medically stable for transfer out of the intensive care unit. Will sign off from a critical care perspective. IMPRESSIONS: 1. Acute on chronic hypoxemic respiratory failure in the setting of cardiopulmonary arrest/ESBL E. coli and group C strep pneumonia The patient has a known history of chronic hypoxemic respiratory failure with a baseline oxygen requirement of 2 L/min. The patient was found down at his nursing facility pulseless and subsequently received CPR, with eventual ROSC. I do suspect that his current respiratory status is likely the consequence of hypervolemia, which likely developed secondary to recent incomplete dialysis sessions. In addition, the patient's sputum culture was positive for ESBL E. coli and group C strep pneumonia. Accordingly, the patient has been maintained on appropriate antimicrobial therapy. The patient was ultimately able to be extubated on January 31 and is doing well from a respiratory perspective. Plan to continue current supportive care, including antibiotics to complete treatment course, per ID recommendations. Otherwise, encourage incentive spirometer use and mobilize patient as tolerated. 2. End-stage renal disease on hemodialysis Nephrology following to assist with hemodialysis needs. 3. Acute on chronic anemia The patient has a history of gastric ulcers, which were treated during prior hospitalizations. Gastroenterology is currently following. Plan to transfuse if hemoglobin drops below 7 g/dL. In the interim, continue PPI therapy as ordered. 4. History of hypertension/paroxysmal atrial fibrillation with RVR/history of gastric ulcers/unspecified seizure disorder/HFpEF/diabetes mellitus Complicates care, management, recovery and prognosis. Continue sliding scale insulin coverage for now. Continue to monitor blood counts and transfuse if hemoglobin drops below 7 g/dL. This note was generated with [employer] dictation software. It may contain incorrect words, spelling, and punctuation that were not noted in checking the note before signing. Subjective Subjective The patient was seen and examined at the bedside this morning. Events from the last 24 hours have been reviewed. The patient is currently afebrile, hemodynamically stable and maintaining appropriate oxygen saturations on 1 L/min via nasal cannula. Nursing staff reported multiple episodes of hypoglycemia overnight. Therefore, the patient's long-acting insulin was discontinued this morning. The patient has not been eating well. Objective Data Objective Data The patient's most recent lab work, culture data and imaging studies have all been personally reviewed. Surface echocardiogram demonstrated an ejection fraction of 55%. Pulmonary artery systolic pressure was estimated to be 35 mmHg. Stool for occult blood was positive. Sputum culture dated January 25 was positive for ESBL E. coli. Vital Signs: Vital Signs Temp Pulse Resp BP Pulse Ox O2 Del Method O2 Flow Rate 97.5 F L 113 H 30 H 113/80 97 Nasal Cannula 1 02/02/24 04:00 02/02/24 06:00 02/02/24 06:00 02/02/24 06:00 02/02/24 06:00 02/02/24 06:00 02/02/24 06:00 FiO2 21 02/01/24 08:11 Oxygen Flow Rate (L/min) 1 Oxygen Delivery Method Nasal Cannula Weight: 195 lb 5.273 oz Body Mass Index (BMI) 27.9 Intake & Output: Intake and Output for Last 24 Hours 01/31/24 02/01/24 02/02/24 23:59 23:59 23:59 Intake Total 2120.42 / 2422.92 1934.17 / 1934.17 620 / 620 Output Total 40 / 40 1780 / 1780 Balance 2080.42 / 2382.92 154.17 / 154.17 620 / 620 Lab / Micro Data Attestation: I reviewed the patient's lab results. 02/01/24 03:05 02/01/24 03:05 Labs: Laboratory Results - last 24 hr 02/01/24 10:21: POC Glucose 128 H 02/01/24 23:06: POC Glucose 82 02/02/24 03:53: POC Glucose 99 02/02/24 05:22: POC Glucose 67 L 02/02/24 05:43: POC Glucose 85 Micro: Microbiology 01/26/24 07:45 Blood Culture (Wb) - Left Foot Blood Culture - Final Coag Negative Staph 01/26/24 08:05 Blood Culture (Wb) - Venous Blood Culture - Final No growth in 5 days. 01/26/24 08:10 Sputum, Induced/Lukens Gram Stain - Final 01/26/24 08:10 Sputum, Induced/Lukens Respiratory Culture - Final ESBL Escherichia coli Streptococcus group C 01/26/24 08:00 Urine, Catheterized Urine Culture - Final Culture exhibits no growth. 01/26/24 08:24 Stool Stool Occult Blood (EMILY) - Final Occult Blood Positive ABG Data ABG results: ABG 01/26/24 09:10 Specimen Type ART Sample Site L Radial pH 7.38 Bicarbonate Actual 25.1 Total CO2 27 Base Excess 0 O2 Saturation 95 O2 % 100.0 ABG pCO2 43.0 ABG pO2 77 Richi Test Positive Respiration Rate 400 O2 Delivery Device Adult Vent Vent Mode AC Tidal Volume 14.0 POC PEEP 5 Radiography Diagnostic Testing: Radiology Impression Chest X-Ray 02/01/24 07:16 IMPRESSION: Moderate pleural effusions with bibasilar airspace disease. Findings may indicate atelectasis or infection. Electronically Signed: José Luis Miramontes MD at 7:52 EDT , Chest X-Ray 02/02/24 05:55 IMPRESSION: 1. Endotracheal tube has been removed. 2. NG tube has been removed. 3. No change in the dialysis catheter. 4. Persistent pleural and parenchymal disease left lower chest. 5. Stable mild cardiomegaly. Electronically Signed: Harjit Adame MD at 5:41 EDT , Physical Exam Const alert and no apparent distress Constitutional Narrative: Chronically debilitated in appearance. General Appearance: cooperative HEENT normocephalic and head/scalp atraumatic Eyes conjunctivae normal and no scleral icterus Neck supple General: trachea midline Chest inspection of chest normal Resp normal respiratory effort Auscultation: diminished lung sounds; Negative for rales, rhonchi or wheezes Cardio regular rate, regular rhythm, S1 normal heart sound and S2 normal heart sound GI normal to inspection, nondistended, normoactive bowel sounds Extremity General Extremity: edema; Negative for clubbing Skin no rashes or lesions noted Neuro CN's II-XII intact bilaterally and no focal motor deficits Psych Mood & Affect: flat affect Charges/Coding Visit Charges Inpatient E&M: 34077 Subs Hosp L3
--- NOTE | 2024-02-02 06:55 | PN.HOSP_ITS ---
Reason for Visit Reason for Visit: Diagnoses Elevated white blood cell count, unspecified (01/26/24) Acidosis, unspecified (01/26/24) Cardiac arrest, cause unspecified (01/26/24) Hypotension, unspecified (01/26/24) Pneumonia, unspecified organism (01/26/24) Pleural effusion, not elsewhere classified (01/26/24) Acute respiratory failure with hypoxia (01/26/24) Gastrointestinal hemorrhage, unspecified (01/26/24) End stage renal disease (01/26/24) Elevation of levels of liver transaminase levels (01/26/24) Patient's noncompliance with other medical treatment and regimen due to unspecified reason (01/26/24) Dependence on renal dialysis (01/26/24) Objective Data Objective Data Vital Signs: Vital Signs Temp Pulse Resp BP Pulse Ox O2 Del Method O2 Flow Rate 36.4 C L 113 H 30 H 113/80 97 Nasal Cannula 1 02/02/24 04:00 02/02/24 06:00 02/02/24 06:00 02/02/24 06:00 02/02/24 06:00 02/02/24 06:00 02/02/24 06:00 FiO2 21 02/01/24 08:11 Oxygen Flow Rate (L/min) 1 Oxygen Delivery Method Nasal Cannula Weight: 88.6 kg Body Mass Index (BMI) 27.9 Intake & Output: Intake and Output for Last 24 Hours 01/31/24 02/01/24 02/02/24 23:59 23:59 23:59 Intake Total 2120.42 / 2422.92 1934.17 / 1934.17 620 / 620 Output Total 40 / 40 1780 / 1780 Balance 2080.42 / 2382.92 154.17 / 154.17 620 / 620 Lab / Micro Data 02/01/24 03:05 02/01/24 03:05 Labs: Laboratory Results - last 24 hr 02/01/24 10:21: POC Glucose 128 H 02/01/24 23:06: POC Glucose 82 02/02/24 03:53: POC Glucose 99 02/02/24 05:22: POC Glucose 67 L 02/02/24 05:43: POC Glucose 85 Micro: Microbiology 01/26/24 07:45 Blood Culture (Wb) - Left Foot Blood Culture - Final Coag Negative Staph 01/26/24 08:05 Blood Culture (Wb) - Venous Blood Culture - Final No growth in 5 days. 01/26/24 08:10 Sputum, Induced/Lukens Gram Stain - Final 01/26/24 08:10 Sputum, Induced/Lukens Respiratory Culture - Final ESBL Escherichia coli Streptococcus group C 01/26/24 08:00 Urine, Catheterized Urine Culture - Final Culture exhibits no growth. 01/26/24 08:24 Stool Stool Occult Blood (EMILY) - Final Occult Blood Positive Radiography Diagnostic Testing: Radiology Impression Chest X-Ray 02/01/24 07:16 IMPRESSION: Moderate pleural effusions with bibasilar airspace disease. Findings may indicate atelectasis or infection. Electronically Signed: José Luis Miramontes MD at 7:52 EDT , Chest X-Ray 02/02/24 05:55 IMPRESSION: 1. Endotracheal tube has been removed. 2. NG tube has been removed. 3. No change in the dialysis catheter. 4. Persistent pleural and parenchymal disease left lower chest. 5. Stable mild cardiomegaly. Electronically Signed: Harjit Adame MD at 5:41 EDT , Assessment & Plan Assessment/Plan (1) Cardiopulmonary arrest: (2) Acute hypoxic respiratory failure: (3) Bilateral pleural effusion: (4) Medical non-compliance: (5) Transaminitis: (6) GI bleed: (7) Leukocytosis: (8) Hypotension: (9) Lactic acidosis: PLAN: Plan Cardiopulmonary arrest * Rhythm not reported but suspected patient was in PEA. Etiology of suspected PEA unclear. Patient did have successful ROSC prior to arrival * Echocardiogram on January 25 showed an EF of 55% Acute on chronic hypoxic respiratory failure * secondary to volume overload secondary to acute HFpEF and ESRDand ESBL E. coli and group C strep pneumonia * Chronically on 2 L nasal cannula at baseline. * extubated on 01/31 * Dialysis per nephrology. Fluid restrict Septic shock * Present on admission * Secondary to ESBL E. coli and group C strep pneumonia * Continue midodrine 10 mg 3 times daily * Continue meropenem for 7 days (through 02/02) * ID following Paroxysmal atrial fibrillation with RVR * Has now converted back to normal sinus rhythm * Continue amiodarone oral 200 mg 3 times daily for day 1 of 7, then taper * Metoprolol remains on hold as blood pressures are low normal * Anticoagulation with apixaban 5 mg twice daily Bilateral pleural effusions * noted on CXR on 01/25 (not present on 11/03) * suspect transudative. Hold off on thoracentesis for now. * improving End-stage renal disease on dialysis * Reported non-compliance * Normally on HD 4x/week. In the hospital, MWF. DM-2 * Fair control * glargine 16/d and SSI. Chronic conditions * Anemia of chronic disease: stable. Follow up with GI as outpt given heme+stools. * Hypertension -hold amlodipine and metoprolol tartrate given hypotension * Hyperlipidemia-Continue atorvastatin * History of gastric ulcers/GERD-IV Protonix twice daily * Seizure disorder-Continue valproic acid * Carotid artery stenosis-Dopplers done in 07/2023 show right internal carotid artery with 50 to 69% stenosis/left internal carotid artery with 50 to 69% stenosis and patent antegrade vertebral arteries with slight progression since 2021-Continue aggressive management of secondary risk factors as able. Follow up with vascular surgery as outpt. * History of stroke-Probably cardioembolic with history-Continue apixaban- Baseline deficits are left-sided hemiparesis DVT prophylaxis not indicated as patient is on apixaban CODE STATUS-Full code
--- NOTE | 2024-02-02 06:55 | PCM.PN.HOSP ---
Reason for Visit Reason for Visit: Diagnoses Elevated white blood cell count, unspecified (01/26/24) Acidosis, unspecified (01/26/24) Cardiac arrest, cause unspecified (01/26/24) Hypotension, unspecified (01/26/24) Pneumonia, unspecified organism (01/26/24) Pleural effusion, not elsewhere classified (01/26/24) Acute respiratory failure with hypoxia (01/26/24) Gastrointestinal hemorrhage, unspecified (01/26/24) End stage renal disease (01/26/24) Elevation of levels of liver transaminase levels (01/26/24) Patient's noncompliance with other medical treatment and regimen due to unspecified reason (01/26/24) Dependence on renal dialysis (01/26/24) Subjective Subjective Has some nausea. Low blood sugars today. Objective Data Objective Data Vital Signs: Vital Signs Temp Pulse Resp BP Pulse Ox O2 Del Method O2 Flow Rate 36.4 C L 113 H 30 H 113/80 97 Nasal Cannula 1 02/02/24 04:00 02/02/24 06:00 02/02/24 06:00 02/02/24 06:00 02/02/24 06:00 02/02/24 06:00 02/02/24 06:00 FiO2 21 02/01/24 08:11 Oxygen Flow Rate (L/min) 1 Oxygen Delivery Method Nasal Cannula Weight: 88.6 kg Body Mass Index (BMI) 27.9 Intake & Output: Intake and Output for Last 24 Hours 01/31/24 02/01/24 02/02/24 23:59 23:59 23:59 Intake Total 2120.42 / 2422.92 1934.17 / 1934.17 620 / 620 Output Total 40 / 40 1780 / 1780 Balance 2080.42 / 2382.92 154.17 / 154.17 620 / 620 Lab / Micro Data 02/01/24 03:05 02/01/24 03:05 Labs: Laboratory Results - last 24 hr 02/01/24 10:21: POC Glucose 128 H 02/01/24 23:06: POC Glucose 82 02/02/24 03:53: POC Glucose 99 02/02/24 05:22: POC Glucose 67 L 02/02/24 05:43: POC Glucose 85 Micro: Microbiology 01/26/24 07:45 Blood Culture (Wb) - Left Foot Blood Culture - Final Coag Negative Staph 01/26/24 08:05 Blood Culture (Wb) - Venous Blood Culture - Final No growth in 5 days. 01/26/24 08:10 Sputum, Induced/Lukens Gram Stain - Final 01/26/24 08:10 Sputum, Induced/Lukens Respiratory Culture - Final ESBL Escherichia coli Streptococcus group C 01/26/24 08:00 Urine, Catheterized Urine Culture - Final Culture exhibits no growth. 01/26/24 08:24 Stool Stool Occult Blood (EMILY) - Final Occult Blood Positive Radiography Diagnostic Testing: Radiology Impression Chest X-Ray 02/01/24 07:16 IMPRESSION: Moderate pleural effusions with bibasilar airspace disease. Findings may indicate atelectasis or infection. Electronically Signed: José Luis Miramontes MD at 7:52 EDT , Chest X-Ray 02/02/24 05:55 IMPRESSION: 1. Endotracheal tube has been removed. 2. NG tube has been removed. 3. No change in the dialysis catheter. 4. Persistent pleural and parenchymal disease left lower chest. 5. Stable mild cardiomegaly. Electronically Signed: Harjit Adame MD at 5:41 EDT , Physical Exam Const alert and no apparent distress HEENT head/scalp atraumatic and moist oral mucous membranes Resp normal respiratory effort, no retractions, no use of accessory muscles and clear to auscultation bilaterally Cardio regular rate, regular rhythm, S1 normal heart sound and S2 normal heart sound GI normal to inspection, nondistended, normoactive bowel sounds, soft to palpation, non-tender and non-distended Extremity normal to inspection General Extremity: edema bilateral Neuro Sensorium / Orientation: awake and alert Assessment & Plan Assessment/Plan (1) Cardiopulmonary arrest: (2) Acute hypoxic respiratory failure: (3) Bilateral pleural effusion: (4) Medical non-compliance: (5) Transaminitis: (6) GI bleed: (7) Leukocytosis: (8) Hypotension: (9) Lactic acidosis: PLAN: Plan Cardiopulmonary arrest Rhythm not reported but suspected patient was in PEA. Etiology of suspected PEA unclear. Patient did have successful ROSC prior to arrival Echocardiogram on January 25 showed an EF of 55% Acute on chronic hypoxic respiratory failure secondary to volume overload secondary to acute HFpEF and ESRDand ESBL E. coli and group C strep pneumonia Chronically on 2 L nasal cannula at baseline. extubated on 01/31 Dialysis per nephrology. Fluid restrict Septic shock Present on admission Secondary to ESBL E. coli and group C strep pneumonia Continue midodrine 10 mg 3 times daily Continue meropenem for 7 days (through 02/02) ID following Paroxysmal atrial fibrillation with RVR Has now converted back to normal sinus rhythm Continue amiodarone oral 200 mg 3 times daily for day 1 of 7, then taper Metoprolol remains on hold as blood pressures are low normal Anticoagulation with apixaban 5 mg twice daily Bilateral pleural effusions noted on CXR on 01/25 (not present on 11/03) suspect transudative. Hold off on thoracentesis for now. improving End-stage renal disease on dialysis Reported non-compliance Normally on HD 4x/week. In the hospital, MAC. DM-2 had hypoglycemia. Glargine held. Had several rounds of d10. Chronic conditions Anemia of chronic disease: stable. Follow up with GI as outpt given heme+stools. Hypertension -hold amlodipine and metoprolol tartrate given hypotension Hyperlipidemia-Continue atorvastatin History of gastric ulcers/GERD-IV Protonix twice daily Seizure disorder-Continue valproic acid Carotid artery stenosis-Dopplers done in 07/2023 show right internal carotid artery with 50 to 69% stenosis/left internal carotid artery with 50 to 69% stenosis and patent antegrade vertebral arteries with slight progression since 2021-Continue aggressive management of secondary risk factors as able. Follow up with vascular surgery as outpt. History of stroke-Probably cardioembolic with history-Continue apixaban-Baseline deficits are left-sided hemiparesis DVT prophylaxis not indicated as patient is on apixaban CODE STATUS-Full code Charges/Coding Visit Charges Inpatient E&M: 12821 Subs Hosp L2
[2024-02-02 07:06] LABS: Bedside Glucose 60 mg/dL (74-106)
[2024-02-02 07:06] LABS: Bedside Glucose 62 mg/dL (74-106)
[2024-02-02 08:22] LABS: Bedside Glucose 60 mg/dL (74-106)
[2024-02-02 08:45] LABS: Bedside Glucose 52 mg/dL (74-106)
[2024-02-02] MEDS: Pantoprazole Sodium 40 MG in 0.9% Normal Saline (100mL MB+) 100 ML 330 MG IV (08:48)
[2024-02-02] MEDS: Miconazole Nitrate 43 GM Bottle 1 APPLIC TOPICAL ×2 (08:49→23:47)
[2024-02-02] MEDS: BRIMONIDINE 0.2% 5ML BOTTLE 1 DRP RIGHT EYE ×2 (08:49→23:46)
[2024-02-02] MEDS: Divalproex Sodium 125 MG SPRINKLE 1000 MG PO ×2 (09:20→23:46)
[2024-02-02] MEDS: Meropenem 500 MG in 0.9% Normal Saline (50mL MB+) 50 ML 100 MG IV (09:20)
[2024-02-02] MEDS: APIXABAN 5 MG TABLET PO ×2 (09:21→23:46)
--- NOTE | 2024-02-02 09:21 | CASEMGMT ---
Discharge Planning Updates sent to [facility] via [employer]. Dione Londono DC Planning Asst.
[2024-02-02 09:49] LABS: Bedside Glucose 99 mg/dL (74-106)
[2024-02-02 11:34] LABS: Bedside Glucose 97 mg/dL (74-106)
[2024-02-02] MEDS: Amiodarone 200 MG Tablet PO ×2 (13:15→23:46)
[2024-02-02 13:39] LABS: Bedside Glucose 84 mg/dL (74-106)
[2024-02-02 17:39] LABS: Bedside Glucose 94 mg/dL (74-106)
--- NOTE | 2024-02-02 22:06 | PN.RENAL_ITS ---
Subjective Subjective no new events Objective Data Objective Data Vital Signs: Vital Signs Temp Pulse Resp BP Pulse Ox O2 Del Method O2 Flow Rate 97 F L 107 H 20 H 112/75 93 Room Air 1 02/02/24 15:05 02/02/24 15:05 02/02/24 15:05 02/02/24 15:05 02/02/24 15:32 02/02/24 15:36 02/02/24 08:00 FiO2 21 02/01/24 08:11 Oxygen Flow Rate (L/min) 1 Oxygen Delivery Method Room Air Weight: 88.6 kg Body Mass Index (BMI) 27.9 Intake & Output: Intake and Output for Last 24 Hours 01/31/24 02/01/24 02/02/24 23:59 23:59 23:59 Intake Total 2120.42 / 2422.92 1934.17 / 1934.17 1340 / 1340 Output Total 40 / 40 1780 / 1780 15 / 15 Balance 2080.42 / 2382.92 154.17 / 154.17 1325 / 1325 Lab / Micro Data 02/01/24 03:05 02/01/24 03:05 Labs: Laboratory Results - last 24 hr 02/01/24 23:06: POC Glucose 82 02/02/24 03:15: POC Glucose 62 L 02/02/24 03:26: POC Glucose 60 L 02/02/24 03:53: POC Glucose 99 02/02/24 05:22: POC Glucose 67 L 02/02/24 05:43: POC Glucose 85 02/02/24 08:04: POC Glucose 60 L 02/02/24 08:28: POC Glucose 52 L 02/02/24 09:23: POC Glucose 99 02/02/24 11:16: POC Glucose 97 02/02/24 13:19: POC Glucose 84 02/02/24 17:21: POC Glucose 94 Micro: Microbiology 01/26/24 07:45 Blood Culture (Wb) - Left Foot Blood Culture - Final Coag Negative Staph 01/26/24 08:05 Blood Culture (Wb) - Venous Blood Culture - Final No growth in 5 days. 01/26/24 08:10 Sputum, Induced/Lukens Gram Stain - Final 01/26/24 08:10 Sputum, Induced/Lukens Respiratory Culture - Final ESBL Escherichia coli Streptococcus group C 01/26/24 08:00 Urine, Catheterized Urine Culture - Final Culture exhibits no growth. 01/26/24 08:24 Stool Stool Occult Blood (EMILY) - Final Occult Blood Positive Radiography Diagnostic Testing: Radiology Impression Chest X-Ray 02/02/24 05:55 IMPRESSION: 1. Endotracheal tube has been removed. 2. NG tube has been removed. 3. No change in the dialysis catheter. 4. Persistent pleural and parenchymal disease left lower chest. 5. Stable mild cardiomegaly. Electronically Signed: Harjit Adame MD at 5:41 EDT , Physical Exam Narrative HEENT: Normocephalic, atraumatic. Intubated, mucous membrane. Neck: Supple, no JVD. Trachea is midline. No thyromegaly or lymphadenopathy. Cardiovascular: Irregularly irregular S1, S2. Tachycardic, no rubs, murmurs, or gallops. Respiratory: Lungs are coarse auscultation bilaterally. Abdomen: Normal bowel sounds, soft, nontender, no guarding or rebound, no organomegaly. Extremities: No clubbing, cyanosis, or edema. Assessment & Plan Assessment/Plan (1) ESRD (end stage renal disease) on dialysis: (2) Acute hypoxic respiratory failure: PLAN: Plan Impression/Plan: The patient is a 63-year-old male with past history of ESRD, type 2 diabetes mellitus, hypertension, stroke, atrial fibrillation, seizure disorder, and hyperlipidemia. Patient was admitted to the hospital on 01/26/2024 because of PEA arrest at [facility] with acute hypoxic/hypercapnic respiratory failure requiring ventilator support. Nephrology is following for ESRD and dialysis need. ESRD. Patient usually dialyzes on a 4 days/week schedule with [facility] machine at [facility] (Tuesday, Tuesday, and Tuesday). Will keep on MWF schedule here Acute hypoxic respiratory failure in the setting of PEA arrest. Extubated likely going back to [facility]
[2024-02-02] MEDS: Pantoprazole Sodium 40 MG Tablet PO (23:46)
[2024-02-02] MEDS: Latanoprost 0.005% 1 Bottle 1 DRP RIGHT EYE (23:48)
[2024-02-02] MEDS: Atorvastatin Calcium 20 MG Tablet PO (23:48)
[2024-02-03] VITALS (19 sets, daily range): BP systolic 95–186; BP diastolic 68–88; PULSE 89–116; RESP 18–24; TEMP 36.3–37.2; O2SAT 95–100; BMI 28.2
[2024-02-03 00:37] LABS: Bedside Glucose 87 mg/dL (74-106)
[2024-02-03] MEDS: Acetaminophen 650 MG/20 ML UDC PO (05:04)
[2024-02-03 05:28] LABS: Absolute Lymphocyte Count 1.71 X10^3/uL (0.83-4.51); Absolute Neutrophil Count 6.8 X10^3/uL (2.0-7.7); Basophil% 0.9 % (0-1); Eosinophil# 0.34 X10^3/uL; Eosinophils% 3.2 % (0-5); Hematocrit 29.3 % (40-54); Hemoglobin 8.8 g/dL (13.0-16.5); Lymphocyte # 1.71 X10^3/ul (0.83-4.51); Lymphocyte % 16.1 % (19-41); Mean Corpuscular Hgb 28.6 pg (27.0-32.0); Mean Corpuscular Volume 95.1 fL (80-94); Mean Platelet Vol. 9.6 fl (6.2-12.0); Monocyte# 1.24 X10^3/uL; Monocyte% 11.7 % (0-10); NRBC Flagged by Analyzer 0 % (0-5); Neutrophil # 6.83 X10^3/uL (2.7-7.7); Neutrophil % 64.6 % (47-70); POSITIVE MORPHOLOGY YES; Platelet Count 185 K/mm3 (150-450); RBC Distribution Width SD 70.2 fl (35.1-43.9); Red Blood Count 3.08 M/mm3 (4.6-6.2); White Blood Count 10.6 K/mm3 (4.4-11.0)
--- NOTE | 2024-02-03 05:28 | CPS ---
bipap not in room , pt doing well on room air.
[2024-02-03 05:40] LABS: Differential Indicated SCAN CRITERIA MET
[2024-02-03 06:04] LABS: Anion Gap 9 (5-15); BUN 48 mg/dL (7-18); Calcium,Total 8.3 mg/dL (8.5-10.1); Chloride 100 mmol/L (98-107); EST Glomerular Filtration Rate 16 mL/min (>60); Est Glom Filt Rate - Afr Amer 20 mL/min (>60); Estimated Creatinine Clearance 21.19 ml/min; Glucose 89 mg/dL (74-106); Potassium 4.1 mmol/L (3.5-5.1); Sodium Level 132 mmol/L (136-145)
[2024-02-03] MEDS: Menthol/Lanolin/Calamine/Znox 113 GM Tube 1 APPLIC TOPICAL (06:50)
[2024-02-03] MEDS: Amiodarone 200 MG Tablet PO ×3 (06:50→22:51)
[2024-02-03 07:14] LABS: Bedside Glucose 88 mg/dL (74-106)
[2024-02-03] MEDS: PureFlow B 2K Dialysis Soln 1 BAG 6 BAG PF (07:40)
[2024-02-03] MEDS: 0.9% Saline Lock 10 ML Syringe IV ×2 (07:41→11:06)
[2024-02-03] MEDS: 0.9% Normal Saline 1,000 ML IV.SOLN. 1000 ML OPERA.SITE (07:41)
--- NOTE | 2024-02-03 07:58 | PN.HOSP_ITS ---
Reason for Visit Reason for Visit: Diagnoses Elevated white blood cell count, unspecified (01/26/24) Acidosis, unspecified (01/26/24) Cardiac arrest, cause unspecified (01/26/24) Hypotension, unspecified (01/26/24) Pneumonia, unspecified organism (01/26/24) Pleural effusion, not elsewhere classified (01/26/24) Acute respiratory failure with hypoxia (01/26/24) Gastrointestinal hemorrhage, unspecified (01/26/24) End stage renal disease (01/26/24) Elevation of levels of liver transaminase levels (01/26/24) Patient's noncompliance with other medical treatment and regimen due to unspecified reason (01/26/24) Dependence on renal dialysis (01/26/24) Subjective Subjective Feels cold. Objective Data Objective Data Vital Signs: Vital Signs Temp Pulse Resp BP Pulse Ox O2 Del Method O2 Flow Rate 36.3 C L 104 H 18 108/81 H 100 Nasal Cannula 2 02/03/24 04:21 02/03/24 07:30 02/03/24 07:30 02/03/24 07:30 02/03/24 07:30 02/03/24 07:30 02/03/24 07:30 FiO2 21 02/01/24 08:11 Oxygen Flow Rate (L/min) 2 Oxygen Delivery Method Nasal Cannula Weight: 89.4 kg Body Mass Index (BMI) 28.2 Intake & Output: Intake and Output for Last 24 Hours 02/01/24 02/02/24 02/03/24 23:59 23:59 23:59 Intake Total 1934.17 / 1934.17 1340 / 1340 220 / 220 Output Total 1780 / 1780 40 / 40 Balance 154.17 / 154.17 1300 / 1300 220 / 220 Lab / Micro Data 02/03/24 05:00 02/03/24 05:00 Labs: Laboratory Results - last 24 hr 02/02/24 08:04: POC Glucose 60 L 02/02/24 08:28: POC Glucose 52 L 02/02/24 09:23: POC Glucose 99 02/02/24 11:16: POC Glucose 97 02/02/24 13:19: POC Glucose 84 02/02/24 17:21: POC Glucose 94 02/02/24 23:41: POC Glucose 87 02/03/24 05:00: WBC 10.6, RBC 3.08 L, Hgb 8.8 L, Hct 29.3 L, MCV 95.1 H, MCH 28.6, MCHC 30.0 L, RDW Std Deviation 70.2 H, RDW Coeff of Silvia 20.0 H, Plt Count 185, MPV 9.6, Immature Gran % (Auto) 3.500 H, Neut % (Auto) 64.6, Lymph % (Auto) 16.1 L, [place] % (Auto) 11.7 H, Eos % (Auto) 3.2, Baso % (Auto) 0.9, Absolute Neuts (auto) 6.8, Absolute Lymphs (auto) 1.71, Nucleated RBC % 0, Sodium 132 L, Potassium 4.1, Chloride 100, Carbon Dioxide 23.0, Anion Gap 9, BUN 48 H, C reatinine 4.00 H, Estim Creat Clear Calc 21.19, Est GFR (MDRD) Af Amer 20 L, Est GFR (MDRD) Non-Af 16 L, BUN/Creatinine Ratio 12.0, Glucose 89, Calcium 8.3 L 02/03/24 06:45: POC Glucose 88 Micro: Microbiology 01/26/24 07:45 Blood Culture (Wb) - Left Foot Blood Culture - Final Coag Negative Staph 01/26/24 08:05 Blood Culture (Wb) - Venous Blood Culture - Final No growth in 5 days. 01/26/24 08:10 Sputum, Induced/Lukens Gram Stain - Final 01/26/24 08:10 Sputum, Induced/Lukens Respiratory Culture - Final ESBL Escherichia coli Streptococcus group C 01/26/24 08:00 Urine, Catheterized Urine Culture - Final Culture exhibits no growth. 01/26/24 08:24 Stool Stool Occult Blood (EMILY) - Final Occult Blood Positive Physical Exam Const alert and no apparent distress Constitutional Narrative: Seen on HD, wrapped in blankets. Resp normal respiratory effort, no retractions, no use of accessory muscles and clear to auscultation bilaterally Cardio regular rate, regular rhythm, S1 normal heart sound and S2 normal heart sound GI normal to inspection, nondistended, normoactive bowel sounds, soft to palpation, non-tender and non-distended Neuro Sensorium / Orientation: awake and alert Assessment & Plan Assessment/Plan (1) Cardiopulmonary arrest: (2) Acute hypoxic respiratory failure: (3) Bilateral pleural effusion: (4) Medical non-compliance: (5) Transaminitis: (6) GI bleed: (7) Leukocytosis: (8) Hypotension: (9) Lactic acidosis: PLAN: Plan Cardiopulmonary arrest * Rhythm not reported but suspected patient was in PEA. Etiology of suspected PEA unclear. Patient did have successful ROSC prior to arrival * Echocardiogram on January 25 showed an EF of 55% Acute on chronic hypoxic respiratory failure * improved * secondary to volume overload secondary to acute HFpEF and ESRD and ESBL E. coli and group C strep pneumonia * Chronically on 2 L nasal cannula at baseline. * extubated on 01/31 * Dialysis per nephrology. Fluid restrict Pneumonia * SCx positive for ESBL E. coli and Strep group C * on meropenem through 02/02 Septic shock * Present on admission * Secondary to ESBL E. coli and group C strep pneumonia * Continue midodrine 10 mg 3 times daily * Continue meropenem for 7 days (through 02/02) * ID following Paroxysmal atrial fibrillation with RVR * Has now converted back to normal sinus rhythm * Continue amiodarone oral 200 mg 3 times daily for day 1 of 7, then taper * Metoprolol remains on hold as blood pressures are low normal * Anticoagulation with apixaban 5 mg twice daily Bilateral pleural effusions * noted on CXR on 01/25 (not present on 11/03) * suspect transudative. Hold off on thoracentesis for now. * improving End-stage renal disease on dialysis * Reported non-compliance * Normally on HD 4x/week. In the hospital, MWF. DM-2 * 02/01: had hypoglycemia. Glargine held. Had several rounds of d10. * glucose stable. Chronic conditions * Anemia of chronic disease: stable. Follow up with GI as outpt given heme+stools. * Hypertension -hold amlodipine and metoprolol tartrate given hypotension * Hyperlipidemia-Continue atorvastatin * History of gastric ulcers/GERD-IV Protonix twice daily * Seizure disorder-Continue valproic acid * Carotid artery stenosis-Dopplers done in 07/2023 show right internal carotid artery with 50 to 69% stenosis/left internal carotid artery with 50 to 69% stenosis and patent antegrade vertebral arteries with slight progression since 2021-Continue aggressive management of secondary risk factors as able. Follow up with vascular surgery as outpt. * History of stroke-Probably cardioembolic with history-Continue apixaban- Baseline deficits are left-sided hemiparesis DVT prophylaxis not indicated as patient is on apixaban CODE STATUS-Full code Charges/Coding Visit Charges Inpatient E&M: 70319 Subs Hosp L2
--- NOTE | 2024-02-03 08:12 | CASEMGMT ---
Social Work- Pt has Directives on chart. HCPOA is Nessa, . LELE Mcginnis
[2024-02-03 08:14] LABS: Differential Comment SCANNED
[2024-02-03 08:18] LABS: Anisocytosis 3+; Macrocytosis 1+; Microcytosis 2+
[2024-02-03 08:19] LABS: Acanthocytes 1+; Ovalocyte 1+; Schistocytes 1+; Target Cells 1+; Tear Drop Cell 1+
--- NOTE | 2024-02-03 09:03 | CASEMGMT ---
SW sent updated notes to [facility] and asked that they start pre-cert. Plan: d/c back to [facility] pending insurance approval. Angie ELIAS
[2024-02-03] MEDS: Heparin 10,000 UNITS/10 ML Vial IV (10:54)
[2024-02-03] MEDS: Calcitriol 0.25 MCG Capsule NG (11:05)
[2024-02-03] MEDS: APIXABAN 5 MG TABLET PO ×2 (11:05→22:51)
[2024-02-03] MEDS: BRIMONIDINE 0.2% 5ML BOTTLE 1 DRP RIGHT EYE ×2 (11:05→22:51)
[2024-02-03] MEDS: Metoprolol Tartrate 25 MG Tablet PO (11:05)
[2024-02-03] MEDS: Pantoprazole Sodium 40 MG Tablet PO ×2 (11:05→22:51)
[2024-02-03] MEDS: Divalproex Sodium 125 MG SPRINKLE 1000 MG PO ×2 (11:06→22:52)
[2024-02-03] MEDS: Miconazole Nitrate 43 GM Bottle 1 APPLIC TOPICAL ×2 (11:06→22:52)
[2024-02-03] MEDS: Meropenem 500 MG in 0.9% Normal Saline (50mL MB+) 50 ML 100 MG IV (11:07)
--- NOTE | 2024-02-03 11:16 | CASEMGMT ---
[facility] informed that patient does not need a pre-cert to return. Plan: d/c back to [facility] under intermediate level of care. Physicians will transport patient. Angie ELIAS
--- NOTE | 2024-02-03 11:42 | PN.RENAL_ITS ---
Subjective Subjective Seen on dialysis today Objective Data Objective Data Vital Signs: Vital Signs Temp Pulse Resp BP Pulse Ox O2 Del Method O2 Flow Rate 98.0 F 116 H 20 H 126/81 H 100 Nasal Cannula 2 02/03/24 10:45 02/03/24 11:05 02/03/24 10:45 02/03/24 11:05 02/03/24 10:45 02/03/24 10:45 02/03/24 10:45 FiO2 21 02/01/24 08:11 Oxygen Flow Rate (L/min) 2 Oxygen Delivery Method Nasal Cannula Weight: 89.4 kg Body Mass Index (BMI) 28.2 Intake & Output: Intake and Output for Last 24 Hours 02/01/24 02/02/24 02/03/24 23:59 23:59 23:59 Intake Total 1934.17 / 1934.17 1340 / 1340 220 / 220 Output Total 1780 / 1780 40 / 40 2240 / 2240 Balance 154.17 / 154.17 1300 / 1300 -2019 / -2019 Lab / Micro Data 02/03/24 05:00 02/03/24 05:00 Labs: Laboratory Results - last 24 hr 02/02/24 13:19: POC Glucose 84 02/02/24 17:21: POC Glucose 94 02/02/24 23:41: POC Glucose 87 02/03/24 05:00: WBC 10.6, RBC 3.08 L, Hgb 8.8 L, Hct 29.3 L, MCV 95.1 H, MCH 28.6, MCHC 30.0 L, RDW Std Deviation 70.2 H, RDW Coeff of Silvia 20.0 H, Plt Count 185, MPV 9.6, Immature Gran % (Auto) 3.500 H, Neut % (Auto) 64.6, Lymph % (Auto) 16.1 L, [place] % (Auto) 11.7 H, Eos % (Auto) 3.2, Baso % (Auto) 0.9, Absolute Neuts (auto) 6.8, Absolute Lymphs (auto) 1.71, Nucleated RBC % 0, Differential Comment SCANNED, Anisocytosis 3+, Microcytosis 2+, Macrocytosis 1+, Target Cells 1+, Tear Drop Cells 1+, Ovalocytes 1+, Acanthocytes (Spur) 1+, Schistocytes 1+, Sodium 132 L, Potassium 4.1, Chloride 100, Carbon Dioxide 23.0, Anion Gap 9, BUN 48 H, Creatinine 4.00 H, Estim Creat Clear Calc 21.19, Est GFR (MDRD) Af Amer 20 L, Est GFR (MDRD) Non-Af 16 L, BUN/Creatinine Ratio 12.0, Glucose 89, Calcium 8.3 L 02/03/24 06:45: POC Glucose 88 Micro: Microbiology 01/26/24 07:45 Blood Culture (Wb) - Left Foot Blood Culture - Final Coag Negative Staph 01/26/24 08:05 Blood Culture (Wb) - Venous Blood Culture - Final No growth in 5 days. 01/26/24 08:10 Sputum, Induced/Lukens Gram Stain - Final 01/26/24 08:10 Sputum, Induced/Lukens Respiratory Culture - Final ESBL Escherichia coli Streptococcus group C 01/26/24 08:00 Urine, Catheterized Urine Culture - Final Culture exhibits no growth. 01/26/24 08:24 Stool Stool Occult Blood (EMILY) - Final Occult Blood Positive Physical Exam Narrative HEENT: Normocephalic, atraumatic. Intubated, mucous membrane. Neck: Supple, no JVD. Trachea is midline. No thyromegaly or lymphadenopathy. Cardiovascular: Irregularly irregular S1, S2. Tachycardic, no rubs, murmurs, or gallops. Respiratory: Lungs are coarse auscultation bilaterally. Abdomen: Normal bowel sounds, soft, nontender, no guarding or rebound, no organomegaly. Extremities: No clubbing, cyanosis, or edema. Assessment & Plan Assessment/Plan (1) ESRD (end stage renal disease) on dialysis: (2) Acute hypoxic respiratory failure: PLAN: Plan Impression/Plan: The patient is a 63-year-old male with past history of ESRD, type 2 diabetes mellitus, hypertension, stroke, atrial fibrillation, seizure disorder, and hyperlipidemia. Patient was admitted to the hospital on 01/26/2024 because of PEA arrest at [facility] with acute hypoxic/hypercapnic respiratory failure requiring ventilator support. Nephrology is following for ESRD and dialysis need. ESRD. Patient usually dialyzes on a 4 days/week schedule with NxStage machine at [facility] (Tuesday, Tuesday, and Tuesday). Will keep on MWF schedule here Dialysis today. See orders. Acute hypoxic respiratory failure in the setting of PEA arrest. Extubated. Has peripheral edema. likely going back to [facility] Waiting for prior Auth
[2024-02-03 12:07] LABS: Bedside Glucose 94 mg/dL (74-106)
[2024-02-03 18:02] LABS: Bedside Glucose 111 mg/dL (74-106)
--- NOTE | 2024-02-03 21:35 | EKG12_ITS ---
Test Reason : CP Blood Pressure : / mmHG Vent. Rate : 109 BPM Atrial Rate : 000 BPM P-R Int : 000 ms QRS Dur : 092 ms QT Int : 364 ms P-R-T Axes : 000 -13 166 degrees QTc Int : 490 ms Atrial fibrillation with rapid ventricular response with premature ventricular or aberrantly conducte d complexes Nonspecific T wave abnormality Abnormal ECG When compared with ECG of 26-JAN-2024 08:20, T wave inversion no longer evident in Anterior leads Confirmed by Harjit Delgadillo ([id number]), video news editor HANNAH BRAY ([id number]) on 02/06/2024 10:39:55 AM Referred By: ROMEL Confirmed By:Harjit Delgadillo
[2024-02-03] MEDS: Atorvastatin Calcium 20 MG Tablet PO (22:51)
[2024-02-03] MEDS: Latanoprost 0.005% 1 Bottle 1 DRP RIGHT EYE (22:52)
[2024-02-03 23:24] LABS: Bedside Glucose 103 mg/dL (74-106)
[2024-02-04 03:24] VITALS: BP 119/80; PULSE 99; RESP 18; TEMP 36.8; O2SAT 99
[2024-02-04 04:00] VITALS: BMI 28.1
[2024-02-04] MEDS: Albuterol 2.5 MG/3 ML VIAL.NEB. INHALATION (05:31)
[2024-02-04 05:32] VITALS: PULSE 101; RESP 20
[2024-02-04] MEDS: Amiodarone 200 MG Tablet PO (05:57)
[2024-02-04 06:22] LABS: Bedside Glucose 113 mg/dL (74-106)
[2024-02-04 07:50] VITALS: O2SAT 98
[2024-02-04] MEDS: BRIMONIDINE 0.2% 5ML BOTTLE 1 DRP RIGHT EYE (08:10)
[2024-02-04 08:11] VITALS: BP 115/72; PULSE 99
[2024-02-04] MEDS: Metoprolol Tartrate 25 MG Tablet PO (08:11)
[2024-02-04] MEDS: Pantoprazole Sodium 40 MG Tablet PO (08:11)
--- NOTE | 2024-02-04 08:11 | PN.HOSP_ITS ---
Reason for Visit Reason for Visit: Diagnoses Elevated white blood cell count, unspecified (01/26/24) Acidosis, unspecified (01/26/24) Cardiac arrest, cause unspecified (01/26/24) Hypotension, unspecified (01/26/24) Pneumonia, unspecified organism (01/26/24) Pleural effusion, not elsewhere classified (01/26/24) Acute respiratory failure with hypoxia (01/26/24) Gastrointestinal hemorrhage, unspecified (01/26/24) End stage renal disease (01/26/24) Elevation of levels of liver transaminase levels (01/26/24) Patient's noncompliance with other medical treatment and regimen due to unspecified reason (01/26/24) Dependence on renal dialysis (01/26/24) Subjective Subjective Doing better. Now on room air. Would prefer to go home. Objective Data Objective Data Vital Signs: Vital Signs Temp Pulse Resp BP Pulse Ox O2 Del Method O2 Flow Rate 36.8 C 101 H 20 H 119/80 98 Nasal Cannula 2 02/04/24 03:24 02/04/24 05:32 02/04/24 05:32 02/04/24 03:24 02/04/24 07:50 02/04/24 07:50 02/04/24 07:50 FiO2 21 02/01/24 08:11 Oxygen Flow Rate (L/min) 2 Oxygen Delivery Method Nasal Cannula Weight: 89.2 kg Body Mass Index (BMI) 28.1 Intake & Output: Intake and Output for Last 24 Hours 02/02/24 02/03/24 02/04/24 23:59 23:59 23:59 Intake Total 1340 / 1340 500 / 500 Output Total 40 / 40 2240 / 2240 50 / 50 Balance 1300 / 1300 -1740 / -1740 -50 / -50 Lab / Micro Data 02/03/24 05:00 02/03/24 05:00 Labs: Laboratory Results - last 24 hr 02/03/24 05:00: Differential Comment SCANNED, Anisocytosis 3+, Microcytosis 2+, Macrocytosis 1+, Target Cells 1+, Tear Drop Cells 1+, Ovalocytes 1+, Acanthocytes (Spur) 1+, Schistocytes 1+ 02/03/24 11:26: POC Glucose 94 02/03/24 17:40: POC Glucose 111 H 02/03/24 22:45: POC Glucose 103 02/04/24 05:55: POC Glucose 113 H Micro: Microbiology 01/26/24 07:45 Blood Culture (Wb) - Left Foot Blood Culture - Final Coag Negative Staph 01/26/24 08:05 Blood Culture (Wb) - Venous Blood Culture - Final No growth in 5 days. 01/26/24 08:10 Sputum, Induced/Lukens Gram Stain - Final 01/26/24 08:10 Sputum, Induced/Lukens Respiratory Culture - Final ESBL Escherichia coli Streptococcus group C 01/26/24 08:00 Urine, Catheterized Urine Culture - Final Culture exhibits no growth. 01/26/24 08:24 Stool Stool Occult Blood (EMILY) - Final Occult Blood Positive Physical Exam Const alert and no apparent distress Resp normal respiratory effort, no retractions, no use of accessory muscles and clear to auscultation bilaterally Cardio regular rate, regular rhythm, S1 normal heart sound and S2 normal heart sound GI normal to inspection, nondistended, normoactive bowel sounds, soft to palpation, non-tender and non-distended Assessment & Plan Assessment/Plan (1) Cardiopulmonary arrest: (2) Acute hypoxic respiratory failure: (3) Bilateral pleural effusion: (4) Medical non-compliance: (5) Transaminitis: (6) GI bleed: (7) Leukocytosis: (8) Hypotension: (9) Lactic acidosis: PLAN: Plan Cardiopulmonary arrest * Rhythm not reported but suspected patient was in PEA. Etiology of suspected PEA unclear. Patient did have successful ROSC prior to arrival * Echocardiogram on January 25 showed an EF of 55% Acute on chronic hypoxic respiratory failure * improved * secondary to volume overload secondary to acute HFpEF and ESRD and ESBL E. coli and group C strep pneumonia * Chronically on 2 L nasal cannula at baseline. * extubated on 01/31 * Dialysis per nephrology. Fluid restrict Pneumonia * SCx positive for ESBL E. coli and Strep group C * completed meropenem on 02/02 Septic shock * Present on admission * Secondary to ESBL E. coli and group C strep pneumonia * Continue midodrine 10 mg 3 times daily * Continue meropenem for 7 days (through 02/02) * ID following Paroxysmal atrial fibrillation with RVR * Has now converted back to normal sinus rhythm * Continue amiodarone oral 200 mg 3 times daily for day 1 of 7, then taper * Metoprolol remains on hold as blood pressures are low normal * Anticoagulation with apixaban 5 mg twice daily Bilateral pleural effusions * noted on CXR on 01/25 (not present on 11/03) * suspect transudative. Hold off on thoracentesis for now. * improving End-stage renal disease on dialysis * Reported non-compliance * Normally on HD 4x/week. In the hospital, MWF. DM-2 * 02/01: had hypoglycemia. Glargine held. Had several rounds of d10. * glucose stable on no current treatment. Chronic conditions * Anemia of chronic disease: stable. Follow up with GI as outpt given heme+stools. * Hypertension -hold amlodipine and metoprolol tartrate given hypotension * Hyperlipidemia-Continue atorvastatin * History of gastric ulcers/GERD-IV Protonix twice daily * Seizure disorder-Continue valproic acid * Carotid artery stenosis-Dopplers done in 07/2023 show right internal carotid artery with 50 to 69% stenosis/left internal carotid artery with 50 to 69% stenosis and patent antegrade vertebral arteries with slight progression since 2021-Continue aggressive management of secondary risk factors as able. Follow up with vascular surgery as outpt. * History of stroke-Probably cardioembolic with history-Continue apixaban- Baseline deficits are left-sided hemiparesis DVT prophylaxis not indicated as patient is on apixaban CODE STATUS-Full code Disposition to [facility] under intermediate level of care.
[2024-02-04] MEDS: APIXABAN 5 MG TABLET PO (08:12)
[2024-02-04] MEDS: Divalproex Sodium 125 MG SPRINKLE 1000 MG PO (08:13)
[2024-02-04] MEDS: Miconazole Nitrate 43 GM Bottle 1 APPLIC TOPICAL (08:14)
--- NOTE | 2024-02-04 08:22 | TREXTCAR_ITS ---
Diet Diet Order/Speech Therapy: 02/01/24 15:15 Diet: Renal - ConsCHO - Patricio Cont Food consistency:: Easy to Chew Liquid Consistency:: Regular/Thin Type of Dietary Supplement:: 120mL Nepro w/ all meals Is pt able to select menu?: No Diet Comments: direct supervision, small sips. How many daily calories?: 2000 calorie Routine Orders/Code Status O2 Liters per Minute: 2 O2 Frequency: Continuous Routine Lab Work: CBC and BMP (Mondays) Code Status: Full Code Wound(s) coccyx: Wound Type: Pressure Injury buttocks: Wound Type: incontinence associated dermatitis Therapies Physical Therapy: Eval and Treat Occupational Therapy: Eval and Treat Problem/Diagnosis (1) Cardiopulmonary arrest: Status: Acute Code(s): I46.9 - Cardiac arrest, cause unspecified (2) Acute hypoxic respiratory failure: Status: Acute Code(s): J96.01 - Acute respiratory failure with hypoxia (3) Bilateral pleural effusion: Status: Acute Code(s): J90 - Pleural effusion, not elsewhere classified (4) Medical non-compliance: Status: Acute Code(s): Z91.199 - Patient's noncompliance with other medical treatment and regimen due to unspecified reason (5) Transaminitis: Status: Acute Code(s): R74.01 - Elevation of levels of liver transaminase levels (6) GI bleed: Status: Acute Code(s): K92.2 - Gastrointestinal hemorrhage, unspecified (7) Leukocytosis: Status: Acute Code(s): D72.829 - Elevated white blood cell count, unspecified (8) Hypotension: Status: Acute Code(s): I95.9 - Hypotension, unspecified (9) Lactic acidosis: Status: Acute Code(s): E87.20 - Acidosis, unspecified Plan Cardiopulmonary arrest * Rhythm not reported but suspected patient was in PEA. Etiology of suspected PEA unclear. Patient did have successful ROSC prior to arrival * Echocardiogram on January 25 showed an EF of 55% Acute on chronic hypoxic respiratory failure * improved * secondary to volume overload secondary to acute HFpEF and ESRD and ESBL E. coli and group C strep pneumonia * Chronically on 2 L nasal cannula at baseline. * extubated on 01/31 * Dialysis per nephrology. Fluid restrict Pneumonia * SCx positive for ESBL E. coli and Strep group C * completed meropenem on 02/02 Septic shock * Present on admission * Secondary to ESBL E. coli and group C strep pneumonia * Continue midodrine 10 mg 3 times daily * Continue meropenem for 7 days (through 02/02) * ID following Paroxysmal atrial fibrillation with RVR * Has now converted back to normal sinus rhythm * Continue amiodarone oral 200 mg 3 times daily for day 1 of 7, then taper * Metoprolol remains on hold as blood pressures are low normal * Anticoagulation with apixaban 5 mg twice daily Bilateral pleural effusions * noted on CXR on 01/25 (not present on 11/03) * suspect transudative. Hold off on thoracentesis for now. * improving End-stage renal disease on dialysis * Reported non-compliance * Normally on HD 4x/week. In the hospital, [place]. DM-2 * 02/01: had hypoglycemia. Glargine held. Had several rounds of d10. * glucose stable on no current treatment. Chronic conditions * Anemia of chronic disease: stable. Follow up with GI as outpt given heme+stools. * Hypertension -hold amlodipine and metoprolol tartrate given hypotension * Hyperlipidemia-Continue atorvastatin * History of gastric ulcers/GERD-IV Protonix twice daily * Seizure disorder-Continue valproic acid * Carotid artery stenosis-Dopplers done in 07/2023 show right internal carotid artery with 50 to 69% stenosis/left internal carotid artery with 50 to 69% stenosis and patent antegrade vertebral arteries with slight progression since 2021-Continue aggressive management of secondary risk factors as able. Follow up with vascular surgery as outpt. * History of stroke-Probably cardioembolic with history-Continue apixaban- Baseline deficits are left-sided hemiparesis DVT prophylaxis not indicated as patient is on apixaban CODE STATUS-Full code Disposition to [facility] under intermediate level of care. Allergies/Procedures Done in Hospital Allergies lisinopril Adverse Reaction (Severe, Verified 12/20/23 11:12) Other chest pain oxycodone Adverse Reaction (Severe, Verified 12/20/23 11:12) Other hypertension hydrocodone bitartrate (From Vicodin) Adverse Reaction (Mild, Verified 12/20/23 11:12) HYPER Procedures: CPR performed, Dialysis and Intubation Type of Care/Length of Stay Estimated LOS: More Than 30 Days Type of Care Needed: Intermediate Rehab Potential: Fair Prognosis: Fair Additional Orders/Day of Discharge Day of Discharge: 02/04/24 Dietary and Speech Recommendations Dietitian Recommendations/Changes: Will change diet to 2000 calorie/consistent carbohydrate; Renal diet with texture/consistency per [employer]. Will add 120mL PO Nepro Carb Steady 3 times per day w/ meals. Discharge Plan Admission Admit Date/Time: 01/26/24 12:35 Primary Reason for Your Visit: Cardiac arrest. Afib. Pneumonia. Respiratory failure. Attending Provider: Arden Ibrahim Primary Care Provider: Amish Han Consulting Providers: Ashtyn Canseco; Harrison Parkinson; Katherin Sandoval Instructions Additional Instructions / Restrictions: Patient usually dialyzes on a 4 days/week schedule with NxStage machine at [facility] (Tuesday, Tuesday, and Tuesday). Discharge Orders/Prescriptions Prescriptions: New amiodarone 200 mg Tablet 200 mg PO TID Qty: 0 0RF Rx Instructions: 200 TID through 02/08, then 200 BID from 02/09-02/15, then 200 daily starting on 02/16. sennosides-docusate sodium [Stool Softener-Stimulant Laxat] 8.6-50 mg Tablet 2 tab NG BID PRN (Reason: Constipation) Qty: 0 0RF acetaminophen 650 mg/20.3 mL Solution 650 mg PO Q6H PRN PRN (Reason: Pain 1-10 Or Fever >100.7) Qty: 0 0RF Continued albuterol sulfate [Ventolin HFA] 90 mcg/actuation HFA aerosol inhaler 2 puff inhalation Q6H PRN (Reason: Wheezing) metoprolol tartrate 25 mg tablet 25 mg PO DAILY amlodipine 10 mg tablet 10 mg PO DAILY Qty: 30 0RF brimonidine 0.2 % drops 1 drp ophthalmic (eye) BID Patient Comments: Instill 1 drop in the right eye 2 times a day latanoprost 0.005 % drops 1 drp RIGHT EYE QHS guaifenesin 100 mg/5 mL Liquid 200 mg PO Q4H PRN PRN (Reason: Cough) Qty: 0 0RF pantoprazole 40 mg Tablet,Delayed Release (Dr/Ec) 40 mg PO BID Qty: 0 0RF nystatin [Nyamyc] 100,000 unit/gram Powder 1 applic topical BID Qty: 0 0RF Protocol: *Topical Application Instructions APPLICATION INSTRUCTIONS: groin atorvastatin 20 mg tablet 20 mg PO DAILY divalproex 125 mg capsule, delayed rel sprinkle 1,000 mg PO BID midodrine 10 mg tablet 10 mg PO DAILY PRN (Reason: SBP) Eliquis 2.5 mg tablet 2.5 mg PO BID calcitriol 0.25 mcg capsule 0.25 mcg PO MOWEFR cyclobenzaprine 7.5 mg tablet 7.5 mg PO Q8H PRN (Reason: muscle spasm) (DME) Manual wheelchair See Rx Instructions .Route .MEDSUPPLY Qty: 1 0RF Rx Instructions: ICD 10: Polyneuropathy (G62.9); cerebral infarction (I69.30); weakness (R53.1) Referrals / Follow Up: Amish Han MD [Primary Care Provider] - Within 2 Weeks Disposition Disposition (needs filled in before D/C Order can be placed): NonSkilled NH/Intermed Care
--- NOTE | 2024-02-04 08:55 | DS.PCM_ITS ---
Providers Date of Admission: 01/26/24 Primary Care Physician: Dr. Amish Han MD Consultations 01/26/24 13:48 Consult: Nephrology Routine Consulting Provider: Katherin Sandoval Reason for Consult: ESRD EMERGENT Consult: No Notified: Yes Date Notified: 01/26/24 Time Notified: 14:44 Method of Notification: Answering Service 01/27/24 05:14 Consult: Shank Scourer / Pulmonary Medicine Routine Consulting Provider: Intensivists/Pulmonary Med Reason for Consult: Mechanical Ventilation EMERGENT Consult: No MD Notified: Yes Date Notified: 01/26/24 Time Notified: 12:00 Method of Notification: Text 01/28/24 08:22 Consult: Infectious Disease Routine Consulting Provider: Harrison Parkinson Reason for Consult: ESBL PNA EMERGENT Consult: No Notified: Yes Date Notified: 01/30/24 Time Notified: 06:48 Method of Notification: Answering Service 02/02/24 15:40 Consult: Onc/Wound/carpet jack Routine Comment: Comments:: wound to coccyx. Have been applying evelyn Reason For Visit: RESPIRATORY FAILURE, PNA, UTI, GI BLEED Diagnosis Discharge Diagnosis (1) Cardiopulmonary arrest: Status: Acute Code(s): I46.9 - Cardiac arrest, cause unspecified (2) Acute hypoxic respiratory failure: Status: Acute Code(s): J96.01 - Acute respiratory failure with hypoxia (3) Bilateral pleural effusion: Status: Acute Code(s): J90 - Pleural effusion, not elsewhere classified (4) Medical non-compliance: Status: Acute Code(s): Z91.199 - Patient's noncompliance with other medical treatment and regimen due to unspecified reason (5) Transaminitis: Status: Acute Code(s): R74.01 - Elevation of levels of liver transaminase levels (6) GI bleed: Status: Acute Code(s): K92.2 - Gastrointestinal hemorrhage, unspecified (7) Leukocytosis: Status: Acute Code(s): D72.829 - Elevated white blood cell count, unspecified (8) Hypotension: Status: Acute Code(s): I95.9 - Hypotension, unspecified (9) Lactic acidosis: Status: Acute Code(s): E87.20 - Acidosis, unspecified Plan Cardiopulmonary arrest * Rhythm not reported but suspected patient was in PEA. Etiology of suspected PEA unclear. Patient did have successful ROSC prior to arrival * Echocardiogram on January 25 showed an EF of 55% Acute on chronic hypoxic respiratory failure * improved * secondary to volume overload secondary to acute HFpEF and ESRD and ESBL E. coli and group C strep pneumonia * Chronically on 2 L nasal cannula at baseline. * extubated on 01/31 * Dialysis per nephrology. Fluid restrict Pneumonia * SCx positive for ESBL E. coli and Strep group C * completed meropenem on 02/02 Septic shock * Present on admission * Secondary to ESBL E. coli and group C strep pneumonia * Continue midodrine 10 mg 3 times daily * Continue meropenem for 7 days (through 02/02) * ID following Paroxysmal atrial fibrillation with RVR * Has now converted back to normal sinus rhythm * Continue amiodarone oral 200 mg 3 times daily for day 1 of 7, then taper * Metoprolol remains on hold as blood pressures are low normal * Anticoagulation with apixaban 5 mg twice daily Bilateral pleural effusions * noted on CXR on 01/25 (not present on 11/03) * suspect transudative. Hold off on thoracentesis for now. * improving End-stage renal disease on dialysis * Reported non-compliance * Normally on HD 4x/week. In the hospital, MWF. DM-2 * 02/01: had hypoglycemia. Glargine held. Had several rounds of d10. * glucose stable on no current treatment. Chronic conditions * Anemia of chronic disease: stable. Follow up with GI as outpt given heme+stools. * Hypertension -hold amlodipine and metoprolol tartrate given hypotension * Hyperlipidemia-Continue atorvastatin * History of gastric ulcers/GERD-IV Protonix twice daily * Seizure disorder-Continue valproic acid * Carotid artery stenosis-Dopplers done in 07/2023 show right internal carotid artery with 50 to 69% stenosis/left internal carotid artery with 50 to 69% stenosis and patent antegrade vertebral arteries with slight progression since 2021-Continue aggressive management of secondary risk factors as able. Follow up with vascular surgery as outpt. * History of stroke-Probably cardioembolic with history-Continue apixaban- Baseline deficits are left-sided hemiparesis DVT prophylaxis not indicated as patient is on apixaban CODE STATUS-Full code Disposition to [facility] under intermediate level of care. Medications at Discharge Home Medications albuterol sulfate 90 mcg/actuation aerosol inhaler (Ventolin HFA) 2 puff inhalation Q6H PRN Wheezing 08/24/22 metoprolol tartrate 25 mg tablet 25 mg PO DAILY afib 08/24/22 amlodipine 10 mg tablet 10 mg PO DAILY #30 tabs 09/15/22 Manual wheelchair #1 ea 03/24/23 brimonidine 0.2 % eye drops 1 drp ophthalmic (eye) BID eyes 05/11/23 latanoprost 0.005 % eye drops 1 drp RIGHT EYE QHS eyes 10/30/23 guaifenesin 100 mg/5 mL oral liquid 200 mg (10 mL) PO Q4H PRN PRN Cough #0 mL 11/11/23 nystatin 100,000 unit/gram topical powder (Nyamyc) 1 applic topical BID #0 grams 11/11/23 pantoprazole 40 mg tablet,delayed release 40 mg PO BID #0 tabs 11/11/23 apixaban 2.5 mg tablet (Eliquis) 2.5 mg PO BID 01/26/24 atorvastatin 20 mg tablet 20 mg PO DAILY 01/26/24 calcitriol 0.25 mcg capsule 0.25 mcg PO MOWEFR 01/26/24 cyclobenzaprine 7.5 mg tablet 7.5 mg PO Q8H PRN muscle spasm 01/26/24 divalproex 125 mg capsule,delayed release sprinkle 1,000 mg PO BID 01/26/24 midodrine 10 mg tablet 10 mg PO DAILY PRN SBP 01/26/24 acetaminophen 650 mg/20.3 mL oral solution 650 mg (20.3 mL) PO Q6H PRN PRN Pain 1-10 Or Fever >100.7 #0 mL 02/04/24 amiodarone 200 mg tablet 200 mg PO TID #0 tabs 02/04/24 sennosides 8.6 mg-docusate sodium 50 mg tablet (Stool Softener-Stimulant Laxative) 2 tab NG BID PRN Constipation #0 tabs 02/04/24 Hospital Course Operations None Procedures 2-D Echocardiogram and Intubation Summary of Care Provided Minutes Spent on Discharge: 35 Hospital Course: Patient presents from outside with concern for cardiac arrest. Patient actually did receive CPR. Unclear if patient actually was in PEA or just had a very weak pulse but did have ROSC. Was subsequently intubated. Is concerned about noncompliance with dialysis. Patient is dialysis at his facility 4 times per week. Patient also did have pneumonia which is likely contributing factor. His pneumonia was ESBL E. coli group C strep. Patient received course of meropenem which she completed on the . Patient also had septic shock and did improve. Weight / BMI Weight Weight: 89.2 kg Body Mass Index (BMI) 28.1 ABG / Lab / Microbiology Data 02/03/24 05:00 02/03/24 05:00 Laboratory: Laboratory Results - last 24 hr 02/03/24 11:26: POC Glucose 94 02/03/24 17:40: POC Glucose 111 H 02/03/24 22:45: POC Glucose 103 02/04/24 05:55: POC Glucose 113 H Microbiology: Microbiology 01/26/24 07:45 Blood Culture (Wb) - Left Foot Blood Culture - Final Coag Negative Staph 01/26/24 08:05 Blood Culture (Wb) - Venous Blood Culture - Final No growth in 5 days. 01/26/24 08:10 Sputum, Induced/Lukens Gram Stain - Final 01/26/24 08:10 Sputum, Induced/Lukens Respiratory Culture - Final ESBL Escherichia coli Streptococcus group C 01/26/24 08:00 Urine, Catheterized Urine Culture - Final Culture exhibits no growth. 01/26/24 08:24 Stool Stool Occult Blood (EMILY) - Final Occult Blood Positive Meaningful Use Info Meaningful Use Meaningful Use Diagnoses (Choose all that apply): None applicable Ischemic Stroke Statin Dosing Therapy Reference: STATIN DOSE THERAPY REFERENCE: * Patients > 75 years receive moderate or high dose statin therapy. * Patients 75 years or YOUNGER should receive HIGH intensity statin dose unless contraindicated. You will be required to document reason for non-treatment if statin daily dose does not meet guidelines. HIGH DOSE STATIN THERAPY DAILY Atorvastatin > than or = to 40 mg Rosuvastatin > than or = to 20 mg Amlodipine + Atorvastatin > than or = to 2.5/40 mg Ezetimibe + Simvastatin 10/80 mg Simvastatin 80mg Discharge Plan Admission Admit Date/Time: 01/26/24 12:35 Primary Reason for Your Visit: Cardiac arrest. Afib. Pneumonia. Respiratory failure. Attending Provider: Arden Ibrahim Primary Care Provider: Amish Han Consulting Providers: Ashtyn Canseco; Harrison Parkinson; Katherin Sandoval Instructions Additional Instructions / Restrictions: Patient usually dialyzes on a 4 days/week schedule with [facility] machine at [facility] (Tuesday, Tuesday, and Tuesday). Discharge Orders/Prescriptions Prescriptions: New amiodarone 200 mg Tablet 200 mg PO TID Qty: 0 0RF Rx Instructions: 200 TID through 02/08, then 200 BID from 02/09-02/15, then 200 daily starting on 02/16. sennosides-docusate sodium [Stool Softener-Stimulant Laxat] 8.6-50 mg Tablet 2 tab NG BID PRN (Reason: Constipation) Qty: 0 0RF acetaminophen 650 mg/20.3 mL Solution 650 mg PO Q6H PRN PRN (Reason: Pain 1-10 Or Fever >100.7) Qty: 0 0RF Continued albuterol sulfate [Ventolin HFA] 90 mcg/actuation HFA aerosol inhaler 2 puff inhalation Q6H PRN (Reason: Wheezing) metoprolol tartrate 25 mg tablet 25 mg PO DAILY amlodipine 10 mg tablet 10 mg PO DAILY Qty: 30 0RF brimonidine 0.2 % drops 1 drp ophthalmic (eye) BID Patient Comments: Instill 1 drop in the right eye 2 times a day latanoprost 0.005 % drops 1 drp RIGHT EYE QHS guaifenesin 100 mg/5 mL Liquid 200 mg PO Q4H PRN PRN (Reason: Cough) Qty: 0 0RF pantoprazole 40 mg Tablet,Delayed Release (Dr/Ec) 40 mg PO BID Qty: 0 0RF nystatin [Nyamyc] 100,000 unit/gram Powder 1 applic topical BID Qty: 0 0RF Protocol: *Topical Application Instructions APPLICATION INSTRUCTIONS: groin atorvastatin 20 mg tablet 20 mg PO DAILY divalproex 125 mg capsule, delayed rel sprinkle 1,000 mg PO BID midodrine 10 mg tablet 10 mg PO DAILY PRN (Reason: SBP) Eliquis 2.5 mg tablet 2.5 mg PO BID calcitriol 0.25 mcg capsule 0.25 mcg PO MOWEFR cyclobenzaprine 7.5 mg tablet 7.5 mg PO Q8H PRN (Reason: muscle spasm) (DME) Manual wheelchair See Rx Instructions .Route .MEDSUPPLY Qty: 1 0RF Rx Instructions: ICD 10: Polyneuropathy (G62.9); cerebral infarction (I69.30); weakness (R53.1) Referrals / Follow Up: Amish Han MD [Primary Care Provider] - Within 2 Weeks Disposition Disposition (needs filled in before D/C Order can be placed): NonSkilled NH/Intermed Care Charges/Coding Visit Charges Inpatient E&M: 86189 Disch Hosp >30min
[2024-02-04 09:25] VITALS: BP 110/43; PULSE 106; RESP 20; TEMP 36.8; O2SAT 100
== END 2024-02-04 11:05 | disposition intermediate care facility (04) | DRG 207 ==
LOC: ED 11:27 → ICU 13:08 → PCU 02-02 17:37
PROVIDERS: Admitting Provider Internal Medicine; Emergency Provider Student in an Organized Health Care Education/Training Program; PCP Family Medicine
DX: J15.4 Pneumonia due to other streptococci (principal); I46.9 Cardiac arrest, cause unspecified; R65.21 Severe sepsis with septic shock; I50.33 Acute on chronic diastolic (congestive) heart failure; J96.21 Acute and chronic respiratory failure with hypoxia; N18.6 End stage renal disease; E87.20 Acidosis, unspecified; I13.2 Hypertensive heart and chronic kidney disease with heart failure and with stage 5 chronic kidney disease, or end stage renal disease; I69.354 Hemiplegia and hemiparesis following cerebral infarction affecting left non-dominant side; Z99.11 Dependence on respirator [ventilator] status; J90 Pleural effusion, not elsewhere classified; I27.20 Pulmonary hypertension, unspecified; D63.1 Anemia in chronic kidney disease; G40.909 Epilepsy, unspecified, not intractable, without status epilepticus; I48.0 Paroxysmal atrial fibrillation; E11.42 Type 2 diabetes mellitus with diabetic polyneuropathy; J15.5 Pneumonia due to Escherichia coli; E11.22 Type 2 diabetes mellitus with diabetic chronic kidney disease; Z79.4 Long term (current) use of insulin; F32.A Depression, unspecified; D50.0 Iron deficiency anemia secondary to blood loss (chronic); E87.70 Fluid overload, unspecified; I65.23 Occlusion and stenosis of bilateral carotid arteries; Z99.2 Dependence on renal dialysis; E78.5 Hyperlipidemia, unspecified; K21.9 Gastro-esophageal reflux disease without esophagitis; R19.5 Other fecal abnormalities; Z91.158 Patient's noncompliance with renal dialysis for other reason; K25.9 Gastric ulcer, unspecified as acute or chronic, without hemorrhage or perforation; Z66 Do not resuscitate; Z79.01 Long term (current) use of anticoagulants; R41.0 Disorientation, unspecified; R74.01 Elevation of levels of liver transaminase levels; Z91.199 Patient's noncompliance with other medical treatment and regimen due to unspecified reason; B96.20 Unspecified Escherichia coli [E. coli] as the cause of diseases classified elsewhere; B95.62 Methicillin resistant Staphylococcus aureus infection as the cause of diseases classified elsewhere; B95.4 Other streptococcus as the cause of diseases classified elsewhere; Z82.5 Family history of asthma and other chronic lower respiratory diseases; Z87.11 Personal history of peptic ulcer disease
CPT/HCPCS: 31500; 31720; 36415; 36600; 51702; 70450; 71045; 72125; 80048; 80053; 80164; 80307; 81001; 82140; 82274; 82550; 82803; 82962; 83605; 83735; 84100; 84439; 84443; 84484; 85018; 85025; 85027; 85610; 85730; 86850; 86900; 86901; 87040; 87070; 87077; 87086; 87186; 87205; 87641; 90937; 92526; 92610; 93005; 93306; 94002; 94003; 94640; 94660; 94762; 97110; 97162; 97163; 97166; 97530; 97535; 97803; 99252; 99285; J2185; J7030; J7040; J7050; A4216; G0257; G0463; J3490

== ENCOUNTER 2024-02-22 07:47 | Outpatient (CLI) | payer MEDICARE, MEDICAID, SELFPAY ==
[2024-02-22] VITALS (9 sets, daily range): BP systolic 94–118; BP diastolic 54–67; PULSE 72–99; RESP 16; TEMP 36.1; O2SAT 95–100
== END 2024-02-22 23:59 | disposition home or self-care (01) ==
LOC: MEDOUTP 07:48
PROVIDERS: PCP Family Medicine; Referring Provider Family Medicine; Visit Provider Family Medicine
DX: D62 Acute posthemorrhagic anemia (principal)
CPT/HCPCS: 36415; 36430; 86850; 86900; 86901; 86920; 86922; J7040; P9016; A4216

== ENCOUNTER → 2024-02-23 06:45 | Outpatient (REF) | payer MEDICARE, MEDICAID, SELFPAY ==
[2024-02-23 07:44] LABS: Hematocrit 30.8 % (40-54); Mean Corp Hgb Conc 32.5 g/dL (32-36); Mean Corpuscular Hgb 28.8 pg (27.0-32.0); Mean Corpuscular Volume 88.8 fL (80-94); Mean Platelet Vol. 8.3 fl (6.2-12.0); POSITIVE COUNT YES; POSITIVE MORPHOLOGY YES; Platelet Count 161 K/mm3 (150-450); RBC Distribution Width CV 18.2 % (11.6-14.6); RBC Distribution Width SD 57.5 fl (35.1-43.9); Red Blood Count 3.47 M/mm3 (4.6-6.2)
[2024-02-23 08:04] LABS: Anion Gap 8 (5-15); BUN 26 mg/dL (7-18); BUN/Creat Ratio 7.8 RATIO (10-20); Calcium,Total 8.5 mg/dL (8.5-10.1); Chloride 95 mmol/L (98-107); Creatinine, Serum 3.32 mg/dL (0.70-1.30); EST Glomerular Filtration Rate 20 mL/min (>60); Est Glom Filt Rate - Afr Amer 24 mL/min (>60); Glucose 96 mg/dL (74-106); Potassium 2.5 mmol/L (3.5-5.1); Sodium Level 133 mmol/L (136-145)
[2024-02-23 08:06] LABS: Differential Indicated MANUAL DIFF
[2024-02-23 08:44] LABS: Basophil 1 % (0-1); Eosinophil 1 % (0-5); Lymphocyte 15 % (19-41); Metamyelocyte 2 % (0-1); Monocyte 5 % (0-10); Myelocyte 1 % (0-0); Neutrophil-Band 15 % (0-5); Neutrophil-Segmented 60 % (47-70); Total Cells Counted 100 (MANUAL DIFF)
[2024-02-23 08:45] LABS: Platelet Estimate ADEQUATE (ADEQ); Red Cell Morphology NORM C+C NORMAL (NORM C&C)
[2024-02-23 09:22] LABS: Absolute Neutrophil Count 5.3 X10^3/uL (2.0-7.7)
[2024-02-24 12:55] LABS: Pathologist Review Reviewed
== END ==
LOC: OLS.SW 06:45
PROVIDERS: PCP Family Medicine; Visit Provider Family Medicine
DX: D64.9 Anemia, unspecified (principal)
CPT/HCPCS: 80048; 85025

== ENCOUNTER → 2024-02-27 06:55 | Outpatient (REF) | payer MEDICARE, MEDICAID, SELFPAY ==
[2024-02-27 08:26] LABS: Hematocrit 30.4 % (40-54); Hemoglobin 9.5 g/dL (13.0-16.5); Mean Corp Hgb Conc 31.3 g/dL (32-36); Mean Corpuscular Hgb 29.6 pg (27.0-32.0); Mean Corpuscular Volume 94.7 fL (80-94); Mean Platelet Vol. 9.1 fl (6.2-12.0); Platelet Count 117 K/mm3 (150-450); RBC Distribution Width CV 18.8 % (11.6-14.6); RBC Distribution Width SD 64.4 fl (35.1-43.9); Red Blood Count 3.21 M/mm3 (4.6-6.2)
[2024-02-27 08:28] LABS: Anion Gap 7 (5-15); BUN 32 mg/dL (7-18); BUN/Creat Ratio 8.6 RATIO (10-20); Calcium,Total 8.6 mg/dL (8.5-10.1); Chloride 98 mmol/L (98-107); Creatinine, Serum 3.71 mg/dL (0.70-1.30); EST Glomerular Filtration Rate 18 mL/min (>60); Est Glom Filt Rate - Afr Amer 21 mL/min (>60); Glucose 85 mg/dL (74-106); Potassium 4.4 mmol/L (3.5-5.1); Sodium Level 133 mmol/L (136-145)
[2024-02-27 08:30] LABS: Scan Indicated on CBC? Y/N NO
== END ==
LOC: OLS.SW 06:55
PROVIDERS: PCP Family Medicine; Referring Provider Family Medicine; Visit Provider Family Medicine
DX: R79.9 Abnormal finding of blood chemistry, unspecified (principal)
CPT/HCPCS: 80048; 85027

== ENCOUNTER 2024-02-28 20:07 | Inpatient (IN) | payer MEDICARE, MEDICAID, SELFPAY ==
[2024-02-28 20:13] VITALS: BP 114/71; PULSE 83; TEMP 37.4; O2SAT 98; BMI 25.3
[2024-02-28 20:22] VITALS: BP 114/71; PULSE 83; RESP 13; TEMP 37.4; O2SAT 96
--- NOTE | 2024-02-28 20:41 | EKG12_ITS ---
Test Reason : DYSRHYTHMIA Blood Pressure : / mmHG Vent. Rate : 082 BPM Atrial Rate : 082 BPM P-R Int : 170 ms QRS Dur : 090 ms QT Int : 396 ms P-R-T Axes : 056 -37 -84 degrees QTc Int : 462 ms Normal sinus rhythm Left axis deviation Low voltage QRS ST & T wave abnormality, consider anterolateral ischemia Prolonged QT Abnormal ECG Confirmed by ARTHUR MONSON, YUMIKO ([id number]), slot editor HANNAH BRAY ([id number]) on 02/29/2024 8:57:47 AM Referred By: BINH Confirmed By:YUMIKO GIBSON MD
--- NOTE | 2024-02-28 20:54 | EX.ED.DYSGE1 ---
HPI History of Present Illness Chief Complaint: Shortness of Breath Narrative Narrative: 63-year-old male presenting with decreased mental status. Patient has end-stage renal disease on dialysis Tuesday, Tuesday, , Tuesday. Patient is a poor informant. He states that he thinks he was sent here for chest pain which she has had for years. He denies having a cough. He denies nausea or vomiting. He denies abdominal pain. [facility] Medical History Medical non-compliance Bilateral carpal tunnel syndrome Entrapment neuropathy Weakness of both hands Cerebral infarction, watershed distribution, unilateral, chronic Chronic in-center hemodialysis status Valvular heart disease Atrial fibrillation and flutter Chronic kidney disease (CKD) stage G4/A1, severely decreased glomerular filtration rate (GFR) between 15-29 mL/min/1.73 square meter and albuminuria creatinine ratio less than 30 mg/g Rotator cuff rupture, complete Chronic diastolic congestive heart failure Hypertension Hypomagnesemia Diabetes mellitus Vitamin D deficiency Chronic obstructive pulmonary disease Left hemiparesis Debility Ventricular tachycardia (paroxysmal) Post herpetic neuralgia Hyperlipidemia ESRD (end stage renal disease) on dialysis Anemia Right leg weakness Weakness Epilepsy Polyneuropathy History of right MCA stroke Stroke End stage renal disease Wears glasses Wears partial dentures Insulin dependent diabetes mellitus Ambulates with cane Arthritis History of renal disease High cholesterol Restless legs Back pain Migraine headache Injury of head and neck Syncope Dietary restriction Heartburn Former smoker History of pain when walking Cardiology follow-up encounter History of echocardiogram History of stress test History of atrial fibrillation History of renal dialysis Chronic kidney disease, stage 4 (severe) TIA (transient ischemic attack) Acute and chronic respiratory failure with hypoxia CHF (congestive heart failure) Seizures HTN (hypertension) Peripheral neuropathy Home Medications ?Medication ?Instructions ?Recorded ?Last Taken ?Type albuterol sulfate 90 mcg/actuation 2 puff inhalation Q6H PRN Wheezing 08/24/22 Unknown History aerosol inhaler (Ventolin HFA) metoprolol tartrate 25 mg tablet 25 mg PO DAILY afib 08/24/22 01/25/24 History amlodipine 10 mg tablet 10 mg PO DAILY #30 tabs 09/15/22 01/25/24 Rx Manual wheelchair #1 ea 03/24/23 Unknown Rx brimonidine 0.2 % eye drops 1 drp ophthalmic (eye) BID eyes 05/11/23 01/25/24 History latanoprost 0.005 % eye drops 1 drp RIGHT EYE QHS eyes 10/30/23 01/25/24 History guaifenesin 100 mg/5 mL oral liquid 200 mg (10 mL) PO Q4H PRN PRN 11/11/23 01/19/24 Rx Cough #0 mL nystatin 100,000 unit/gram topical 1 applic topical BID #0 grams 11/11/23 01/25/24 Rx powder ([facility]) pantoprazole 40 mg tablet,delayed 40 mg PO BID #0 tabs 11/11/23 01/25/24 Rx release apixaban 2.5 mg tablet (Eliquis) 2.5 mg PO BID 01/26/24 01/25/24 History atorvastatin 20 mg tablet 20 mg PO DAILY 01/26/24 01/25/24 History calcitriol 0.25 mcg capsule 0.25 mcg PO MOWEFR 01/26/24 01/16/24 History cyclobenzaprine 7.5 mg tablet 7.5 mg PO Q8H PRN muscle spasm 01/26/24 01/15/24 History divalproex 125 mg capsule,delayed 1,000 mg PO BID 01/26/24 01/25/24 History release sprinkle midodrine 10 mg tablet 10 mg PO DAILY PRN SBP 01/26/24 Unknown History acetaminophen 650 mg/20.3 mL oral 650 mg (20.3 mL) PO Q6H PRN PRN 02/04/24 Unknown Rx solution Pain 1-10 Or Fever >100.7 #0 mL sennosides 8.6 mg-docusate sodium 2 tab NG BID PRN Constipation #0 02/04/24 Unknown Rx 50 mg tablet (Stool tabs Softener-Stimulant Laxative) amiodarone 200 mg tablet 200 mg PO DAILY 02/28/24 Unknown History Allergy/AdvReac Type Severity Reaction Status Date / Time lisinopril AdvReac Severe Other Verified 12/20/23 11:12 oxycodone AdvReac Severe Other Verified 12/20/23 11:12 hydrocodone bitartrate (From AdvReac Mild HYPER Verified 12/20/23 11:12 Vicodin) Family History Father Cancer Prostate Heart disease Mother Heart disease Diabetes Other COPD (chronic obstructive pulmonary disease) Surgical History S/P arteriovenous (AV) fistula creation Hx of right cataract extraction Hx of left cataract extraction Hx of arteriovenostomy for renal dialysis History of rotator cuff surgery History of umbilical hernia repair Status post foot surgery Social History housing: shelter number of children: 3 current occupational status: disabled Smoking Status: Never smoker Smokeless tobacco user: snuff second hand exposure: No alcohol intake: never substance use type: does not use what type of physical activity do you participate in: other details: health point frequency: 3-4 times per week alba/sabianist: Other seatbelt use: always ROS ROS ED Review of Systems ROS Unobtainable: due to mental condition and due to mental status EXAM Physical Exam Const Vital Signs: 02/28/24 20:13 02/28/24 20:22 02/28/24 21:02 Temperature 99.4 F H 99.4 F H Temperature Source Oral Oral Pulse Rate 83 83 Respiratory Rate 13 Respiratory Effort Normal Non-Labored Respiratory Depth Normal Respiratory Pattern Normal Blood Pressure 114/71 114/71 Blood Pressure Mean 85 85 Pulse Ox 98 96 Oxygen Delivery Method Nasal Cannula Nasal Cannula Nasal Cannula Oxygen Flow Rate (L/min) 3 3 3 02/28/24 21:22 02/28/24 22:00 02/28/24 22:30 Temperature 98.6 F 98.6 F 98.6 F Temperature Source Oral Oral Pulse Rate 81 81 81 Respiratory Rate 21 H 24 H 22 H Respiratory Effort Respiratory Depth Respiratory Pattern Blood Pressure 122/74 H 131/77 H 131/77 H Blood Pressure Mean 90 95 95 Pulse Ox 98 98 98 Oxygen Delivery Method Nasal Cannula Nasal Cannula Oxygen Flow Rate (L/min) 2 3 Positive well nourished General Appearance ED: NAD; Negative for pallor HEENT Reports moist mucous membranes Eyes PERRL and EOMs intact bilaterally Chest Wall inspection of chest normal Resp normal respiratory effort and clear to auscultation bilaterally Auscultation: Negative for rales, rhonchi or wheezes Cardio regular rate and regular rhythm GI normal to inspection, nondistended, normoactive bowel sounds Neuro CN's II-XII intact bilaterally Sensorium / Orientation: alert Motor Exam: general weakness Psych Psych Narrative: Confused Skin no rashes or lesions noted General Skin Exam: Negative for jaundice or pallor MDM MDM MDM Narrative Medical decision making narrative: Patient presenting with reported decrease in mental status. Reportedly ANO x 3. Differential includes ACS, pneumonia, dehydration, anemia, CHF, volume overload, electrolyte abnormalities, stroke, UTI. CBC will be obtained to assess white blood cell count, hemoglobin, platelets. BMP to assess renal function, electrolytes, glucose. High-sensitivity troponin and EKG to assess for ischemia/dysrhythmia. BNP to assess for CHF. Chest x-ray to rule out pneumonia or CHF. CT brain will be obtained to rule out acute intracranial pathology. Urinalysis to assess for UTI. CBC shows leukocytosis 17.1. Hemoglobin 11.9 and stable. Platelets low at 112. Renal function at baseline Stage renal disease on dialysis. Depakote level was normal. High-sensitivity troponin is 10. EKG interpreted by myself shows a sinus rhythm at 82 bpm without sign of ischemic change or dysrhythmia. Chest x-ray interpreted by myself concerning for right-sided pneumonia. Radiologist interprets this and agrees. Urinalysis with positive nitrites and 50-100 RBCs 1+ bacteria with no contamination. Patient was covered broad-spectrum with Vanco and Zosyn. He has a history of MRSA. Also recently admitted. Blood cultures were obtained prior to antibiotics. Lactic acid is pending. CT brain was negative. Will discuss with hospitalist for admission. Impression: 1. Altered mental status 2. Pneumonia 3. Leukocytosis Lab Data Attestation: I reviewed the patient's lab results. Labs: Laboratory Results - last 24 hr 02/28/24 02/28/24 02/28/24 20:55 21:01 21:36 WBC 17.1 H RBC 4.00 L Hgb 11.9 L Hct 37.6 L MCV 94.0 MCH 29.8 MCHC 31.6 L RDW Std Deviation 65.2 H RDW Coeff of Silvia 19.2 H Plt Count 112 L MPV 8.2 Immature Gran % (Auto) 0.900 Neut % (Auto) 89.3 H Lymph % (Auto) 5.6 L [place] % (Auto) 3.7 Eos % (Auto) 0.0 Baso % (Auto) 0.5 Absolute Neuts (auto) 15.3 H Absolute Lymphs (auto) 0.96 Nucleated RBC % 0 Anisocytosis 1+ Sodium 133 L Potassium 4.4 Chloride 96 L Carbon Dioxide 29.0 Anion Gap 8 BUN 16 Creatinine 2.29 H Estim Creat Clear Calc 34.09 Est GFR (MDRD) Af Amer 37 L Est GFR (MDRD) Non-Af 31 L BUN/Creatinine Ratio 7.0 L Glucose 115 H Calcium 9.1 Troponin I High Sens 10 B-Natriuretic Peptide 1143.7 H Urine Color [place] Urine Clarity Sl. Cloudy Urine pH 6.0 Ur Specific [place] 1.015 Urine Protein 100 H Urine Glucose (UA) 50 H Urine Ketones Negative Urine Occult Blood 250 H Urine Nitrite Positive H Urine Bilirubin 1 H Urine Urobilinogen Normal Ur Leukocyte Esterase 100 H Urine RBC 50-100 SEEN Urine WBC 0-5 SEEN Ur Squamous Epith Cells 0 SEEN Urine Bacteria 1+ Urine Mucus 0 SEEN Valproic Acid 75 Radiography Diagnostic Testing: Clinical Impression(s) from Imaging Studies Brain CT 02/28/24 21:05 IMPRESSION: Chronic microvascular ischemic changes. No evidence of acute infarct or hemorrhage. Electronically Signed: Juanito Starks DO at 22:58 EDT , Chest X-Ray 02/28/24 21:09 IMPRESSION: Right lung infiltrate suspicious for pneumonia. Recommend follow-up to complete resolution. Electronically Signed: Chance Panda MD at 21:31 EDT , Discharge Plan Triage Chief Complaint: Shortness of Breath Other Complaint: Cough ED Provider: Otto Boo Dx/Rx/DC Orders Prescriptions: No Action albuterol sulfate [Ventolin HFA] 90 mcg/actuation HFA aerosol inhaler 2 puff inhalation Q6H PRN (Reason: Wheezing) metoprolol tartrate 25 mg tablet 25 mg PO DAILY amlodipine 10 mg tablet 10 mg PO DAILY Qty: 30 0RF brimonidine 0.2 % drops 1 drp ophthalmic (eye) BID Patient Comments: Instill 1 drop in the right eye 2 times a day latanoprost 0.005 % drops 1 drp RIGHT EYE QHS guaifenesin 100 mg/5 mL Liquid 200 mg PO Q4H PRN PRN (Reason: Cough) Qty: 0 0RF pantoprazole 40 mg Tablet,Delayed Release (Dr/Ec) 40 mg PO BID Qty: 0 0RF nystatin [Nyamyc] 100,000 unit/gram Powder 1 applic topical BID Qty: 0 0RF Protocol: *Topical Application Instructions APPLICATION INSTRUCTIONS: groin amiodarone 200 mg Tablet 200 mg PO DAILY atorvastatin 20 mg tablet 20 mg PO DAILY divalproex 125 mg capsule, delayed rel sprinkle 1,000 mg PO BID midodrine 10 mg tablet 10 mg PO DAILY PRN (Reason: SBP) Rx Instructions: as needed for SBP <95 Eliquis 2.5 mg tablet 2.5 mg PO BID calcitriol 0.25 mcg capsule 0.25 mcg PO MOWEFR cyclobenzaprine 7.5 mg tablet 7.5 mg PO Q8H PRN (Reason: muscle spasm) sennosides-docusate sodium [Stool Softener-Stimulant Laxat] 8.6-50 mg Tablet 2 tab NG BID PRN (Reason: Constipation) Qty: 0 0RF acetaminophen 650 mg/20.3 mL Solution 650 mg PO Q6H PRN PRN (Reason: Pain 1-10 Or Fever >100.7) Qty: 0 0RF (DME) Manual wheelchair See Rx Instructions .Route .MEDSUPPLY Qty: 1 0RF Rx Instructions: ICD 10: Polyneuropathy (G62.9); cerebral infarction (I69.30); weakness (R53.1) Primary Care Provider: Amish Han Referrals: Amish Han MD [Primary Care Provider] - Print Language: Romanian
[2024-02-28 21:01] LABS: Absolute Lymphocyte Count 0.96 X10^3/uL (0.83-4.51); Absolute Neutrophil Count 15.3 X10^3/uL (2.0-7.7); Basophil# 0.08 X10^3/uL; Basophil% 0.5 % (0-1); Hematocrit 37.6 % (40-54); Hemoglobin 11.9 g/dL (13.0-16.5); Lymphocyte # 0.96 X10^3/ul (0.83-4.51); Lymphocyte % 5.6 % (19-41); Mean Corp Hgb Conc 31.6 g/dL (32-36); Mean Corpuscular Hgb 29.8 pg (27.0-32.0); Mean Platelet Vol. 8.2 fl (6.2-12.0); Monocyte# 0.64 X10^3/uL; Monocyte% 3.7 % (0-10); NRBC Flagged by Analyzer 0 % (0-5); Neutrophil # 15.26 X10^3/uL (2.7-7.7); Neutrophil % 89.3 % (47-70); POSITIVE MORPHOLOGY YES; Platelet Count 112 K/mm3 (150-450); RBC Distribution Width CV 19.2 % (11.6-14.6); RBC Distribution Width SD 65.2 fl (35.1-43.9); White Blood Count 17.1 K/mm3 (4.4-11.0)
--- NOTE | 2024-02-28 21:05 | CT_ITS ---
EXAM: CT HEAD WITHOUT INTRAVENOUS CONTRAST CLINICAL INDICATION: AMS TECHNIQUE: Multiple axial images were obtained of the head without intravenous contrast. This CT exam was performed using one or more of the following dose reduction techniques: automated exposure control, adjustment of the mA and/or kV according to patient size, and/or use of iterative reconstruction technique. COMPARISON: 01/26/2024 FINDINGS: BRAIN AND EXTRA-AXIAL SPACES: There is non-specific periventricular hypoattenuation which is most commonly related to chronic microvascular ischemic disease in a patient of this age. There is no mass, mass-effect, or shift of the midline structures. No evidence of acute infarct or acute intracranial hemorrhage. There is no evidence of pathologic extra-axial fluid. There is no hydrocephalus. Patent basal cisterns. BONES/JOINTS: No significant abnormality. No discrete lytic or blastic abnormalities. VASCULATURE: Arteriosclerosis. SINUSES: No significant findings. MASTOID AIR CELLS: No significant effusion. ORBITS: Bilateral ocular lens extraction presumptively for the treatment of cataracts. Otherwise, no acute orbital pathology. CT/Brain/Head without Contrast IMPRESSION: Chronic microvascular ischemic changes. No evidence of acute infarct or hemorrhage. Electronically Signed: Juanito Starks DO at 22:58 EDT ,
--- NOTE | 2024-02-28 21:09 | RAD_ITS ---
INDICATION: cough EXAMINATION/TECHNIQUE: X-RAY - portable upright AP chest x-ray COMPARISON: 02/02/2024 FINDINGS: LINES/DEVICES: Stable right IJ double lumen catheter. LUNGS: Hazy airspace opacity right upper to midlung field. No vascular congestion or pneumothorax. Possible small right pleural effusion. MEDIASTINUM AND CARDIOVASCULAR STRUCTURES: Stable cardiomegaly. BONES AND SOFT TISSUES: No acute changes. RAD/Chest 1 View (Portable) IMPRESSION: Right lung infiltrate suspicious for pneumonia. Recommend follow-up to complete resolution. Electronically Signed: Chance Panda MD at 21:31 EDT ,
[2024-02-28 21:18] LABS: Anion Gap 8 (5-15); BUN 16 mg/dL (7-18); Calcium,Total 9.1 mg/dL (8.5-10.1); Chloride 96 mmol/L (98-107); Creatinine, Serum 2.29 mg/dL (0.70-1.30); EST Glomerular Filtration Rate 31 mL/min (>60); Est Glom Filt Rate - Afr Amer 37 mL/min (>60); Estimated Creatinine Clearance 34.09 ml/min; Glucose 115 mg/dL (74-106); Potassium 4.4 mmol/L (3.5-5.1); Sodium Level 133 mmol/L (136-145); Troponin-I HS 10 pg/mL (3.0-78.0)
[2024-02-28 21:21] LABS: BNP,B-Type NATRIURETIC PEPTIDE 1143.7 pg/mL (0-100)
[2024-02-28 21:22] VITALS: BP 122/74; PULSE 81; RESP 21; TEMP 37; O2SAT 98
[2024-02-28 21:23] LABS: Differential Indicated SCAN CRITERIA MET
[2024-02-28 21:24] LABS: Anisocytosis 1+
[2024-02-28 21:26] LABS: Valproic Acid (Depakene) Level 75 ug/mL (50-100)
[2024-02-28 21:39] LABS: Mucous, Urine 0 SEEN /hpf (<or=2+); Squamous Epithelial Cells - UA 0 SEEN /hpf (0-5)
[2024-02-28 21:41] LABS: Color, Urine Amber (Yellow); Glucose, Dipstick 50 mg/dl (Normal); Ketone-Dipstick Negative (Negative); Leukocyte Esterase-Dipstick 100 /ul (Negative); Nitrite-Dipstick Positive (Negative); Occult Blood-Urine 250 /ul (Negative); Protein-Dipstick 100 mg/dl (Negative); Specific Gravity, Urine 1.015 (1.002-1.030); Urine Clarity Sl. Cloudy (Clear); Urine Urobilinogen Normal (Normal)
[2024-02-28 21:44] LABS: Urine Bilirubin Dipstick 1 mg/dL (Negative)
[2024-02-28 21:58] LABS: Bacteria 1+ /hpf (None Seen); Red Blood Cells-Urine 50-100 SEEN /hpf (0-5); White Blood Cells 0-5 SEEN /hpf (0-5)
[2024-02-28 22:00] VITALS: BP 131/77; PULSE 81; RESP 24; TEMP 37; O2SAT 98
--- NOTE | 2024-02-28 22:23 | HP.PCM.HOS_ITS ---
HPI - General General Date of Admission: 02/28/24 Date of Service: 02/28/24 Chief Complaint: Altered mentation and worsening hypoxia HPI Narrative JAMES RICO, is a 63 M who presented to [facility] ED on 02/28/2024 from SNF for altered mentation and worsening hypoxia. Saw patient at bedside in the ED, and other family member present. Patient was laying comfortably in bed, in no acute distress. Patient has had multiple prolonged admissions here in the past several months, most recently from 01/25-02/03. Had cardiopulmonary arrest at SNF on 01/25 leading to that admission, and that hospitalization was complicated by acute on chronic hypoxic respiratory failure, pneumonia and septic shock. Patient was ultimately stable for discharge back to SNF on 02/03. Medical history is significant for prior stroke with left-sided hemiparesis and ESRD on HD. Today, patient was making appropriate eye contact with me but not answering questions appropriately for me. History was provided by his and other family member. They note that the patient has not been eating much at the facility since his previous discharge. Note that he has had significant coughing episodes at times over the past several weeks, unsure if this is secondary to aspiration events with food intake. Patient was followed by speech therapy during previous admissions and it appears he was cleared for a regular diet with direct supervision and small sips with alternating bites and sips. Patient denies any acute pain or discomfort currently. Denies any fevers or chills. No other concerns at this time. Vitals in ED notable for low-grade temp of 99.4 F, O2 sats of 96 to 98% on 3 L nasal cannula (baseline 2 L), otherwise unremarkable. Labs notable for WBC count 17.1, hemoglobin 11.9 (baseline around 10), platelets 112, sodium 133, chloride 96, bicarb 29. UA was positive for nitrites, moderate leukocyte esterase, 1+ bacteria. CT brain was unremarkable. Chest x-ray showed right lung infiltrate suspicious for pneumonia. CT chest without contrast showed scattered right lung airspace opacities and right lower lobe consolidation consistent with multilobar pneumonia, along with small bilateral pleural effusions. [facility] Medical History Medical non-compliance Bilateral carpal tunnel syndrome Entrapment neuropathy Weakness of both hands Cerebral infarction, watershed distribution, unilateral, chronic Chronic in-center hemodialysis status Valvular heart disease Atrial fibrillation and flutter Chronic kidney disease (CKD) stage G4/A1, severely decreased glomerular filtration rate (GFR) between 15-29 mL/min/1.73 square meter and albuminuria creatinine ratio less than 30 mg/g Rotator cuff rupture, complete Chronic diastolic congestive heart failure Hypertension Hypomagnesemia Diabetes mellitus Vitamin D deficiency Chronic obstructive pulmonary disease Left hemiparesis Debility Ventricular tachycardia (paroxysmal) Post herpetic neuralgia Hyperlipidemia ESRD (end stage renal disease) on dialysis Anemia Right leg weakness Weakness Epilepsy Polyneuropathy History of right MCA stroke Stroke End stage renal disease Wears glasses Wears partial dentures Insulin dependent diabetes mellitus Ambulates with cane Arthritis History of renal disease High cholesterol Restless legs Back pain Migraine headache Injury of head and neck Syncope Dietary restriction Heartburn Former smoker History of pain when walking Cardiology follow-up encounter History of echocardiogram History of stress test History of atrial fibrillation History of renal dialysis Chronic kidney disease, stage 4 (severe) TIA (transient ischemic attack) Acute and chronic respiratory failure with hypoxia CHF (congestive heart failure) Seizures HTN (hypertension) Peripheral neuropathy Home Medications ?Medication ?Instructions ?Recorded ?Last Taken ?Type albuterol sulfate 90 mcg/actuation 2 puff inhalation Q6H PRN Wheezing 08/24/22 Unknown History aerosol inhaler (Ventolin HFA) metoprolol tartrate 25 mg tablet 25 mg PO DAILY afib 08/24/22 01/25/24 History amlodipine 10 mg tablet 10 mg PO DAILY #30 tabs 09/15/22 01/25/24 Rx Manual wheelchair #1 ea 03/24/23 Unknown Rx brimonidine 0.2 % eye drops 1 drp ophthalmic (eye) BID eyes 05/11/23 01/25/24 History latanoprost 0.005 % eye drops 1 drp RIGHT EYE QHS eyes 10/30/23 01/25/24 History guaifenesin 100 mg/5 mL oral liquid 200 mg (10 mL) PO Q4H PRN PRN 11/11/23 01/19/24 Rx Cough #0 mL nystatin 100,000 unit/gram topical 1 applic topical BID #0 grams 11/11/23 01/25/24 Rx powder ([facility]) pantoprazole 40 mg tablet,delayed 40 mg PO BID #0 tabs 11/11/23 01/25/24 Rx release apixaban 2.5 mg tablet (Eliquis) 2.5 mg PO BID 01/26/24 01/25/24 History atorvastatin 20 mg tablet 20 mg PO DAILY 01/26/24 01/25/24 History calcitriol 0.25 mcg capsule 0.25 mcg PO MOWEFR 01/26/24 01/16/24 History cyclobenzaprine 7.5 mg tablet 7.5 mg PO Q8H PRN muscle spasm 01/26/24 01/15/24 History divalproex 125 mg capsule,delayed 1,000 mg PO BID 01/26/24 01/25/24 History release sprinkle midodrine 10 mg tablet 10 mg PO DAILY PRN SBP 01/26/24 Unknown History acetaminophen 650 mg/20.3 mL oral 650 mg (20.3 mL) PO Q6H PRN PRN 02/04/24 Unknown Rx solution Pain 1-10 Or Fever >100.7 #0 mL sennosides 8.6 mg-docusate sodium 2 tab NG BID PRN Constipation #0 02/04/24 Unknown Rx 50 mg tablet (Stool tabs Softener-Stimulant Laxative) amiodarone 200 mg tablet 200 mg PO DAILY 02/28/24 Unknown History Allergy/AdvReac Type Severity Reaction Status Date / Time lisinopril AdvReac Severe Other Verified 12/20/23 11:12 oxycodone AdvReac Severe Other Verified 12/20/23 11:12 hydrocodone bitartrate (From AdvReac Mild HYPER Verified 12/20/23 11:12 Vicodin) Family History Father Cancer Prostate Heart disease Mother Heart disease Diabetes Other COPD (chronic obstructive pulmonary disease) Surgical History S/P arteriovenous (AV) fistula creation Hx of right cataract extraction Hx of left cataract extraction Hx of arteriovenostomy for renal dialysis History of rotator cuff surgery History of umbilical hernia repair Status post foot surgery Social History housing: long term number of children: 3 current occupational status: disabled Smoking Status: Never smoker Smokeless tobacco user: snuff second hand exposure: No alcohol intake: never substance use type: does not use what type of physical activity do you participate in: other details: health point frequency: 3-4 times per week alba/druze: Other seatbelt use: always ROS Review of Systems ROS Unobtainable: due to mental condition Constitutional Constitutional: Denies chills or fever(s) Cardiovascular Cardiovascular: Denies chest pain Respiratory/Chest Respiratory/Chest: Denies shortness of breath at rest Gastrointestinal Gastrointestinal: Denies abdominal pain Vital Signs Vital Signs Vital Signs: 02/28/24 20:13 02/28/24 20:22 02/28/24 21:02 Temperature 99.4 F H 99.4 F H Temperature Source Oral Oral Pulse Rate 83 83 Respiratory Rate 13 Respiratory Effort Normal Non-Labored Respiratory Depth Normal Respiratory Pattern Normal Blood Pressure 114/71 114/71 Blood Pressure Mean 85 85 Pulse Ox 98 96 Oxygen Delivery Method Nasal Cannula Nasal Cannula Nasal Cannula Oxygen Flow Rate (L/min) 3 3 3 02/28/24 21:22 Temperature 98.6 F Temperature Source Oral Pulse Rate 81 Respiratory Rate 21 H Respiratory Effort Respiratory Depth Respiratory Pattern Blood Pressure 122/74 H Blood Pressure Mean 90 Pulse Ox 98 Oxygen Delivery Method Nasal Cannula Oxygen Flow Rate (L/min) 2 Weight Weight: 80.2 kg Body Mass Index (BMI) 25.3 Physical Exam Const alert, no apparent distress and average body habitus Constitutional Narrative: Middle-age male, appears older than stated age, chronically ill-appearing, laying comfortably in bed, alert and making appropriate eye contact but not answering questions appropriately, in no acute distress. General Appearance: cooperative and comfortable HEENT normocephalic, head/scalp atraumatic, hearing grossly normal bilaterally and nasal mucous membranes and turbinates normal Eyes PERRL, EOMs intact bilaterally and conjunctivae normal Neck full ROM Chest inspection of chest normal Resp normal respiratory effort and no use of accessory muscles Resp Narrative: Decreased breath sounds in bilateral lung bases with crackles noted bilaterally, worse on left. No wheezing noted. Cardio regular rate, regular rhythm, no murmurs and peripheral pulses 2+ throughout GI normal to inspection, nondistended, normoactive bowel sounds, soft to palpation, non-tender and non-distended Back/Spine normal ROM Extremity normal to inspection Extremity Narrative: +1-2 lower extremity edema. Skin no rashes or lesions noted Neuro Neuro Narrative: Left-sided hemiparesis noted. Results Lab / Micro Data 02/28/24 20:55 02/28/24 20:55 Labs: Laboratory Results - last 24 hr 02/28/24 20:55: WBC 17.1 H, RBC 4.00 L, Hgb 11.9 L, Hct 37.6 L, MCV 94.0, MCH 29.8, MCHC 31.6 L, RDW Std Deviation 65.2 H, RDW Coeff of Silvia 19.2 H, Plt Count 112 L, MPV 8.2, Immature Gran % (Auto) 0.900, Neut % (Auto) 89.3 H, Lymph % (Auto) 5.6 L, [place] % (Auto) 3.7, Eos % (Auto) 0.0, Baso % (Auto) 0.5, Absolute Neuts (auto) 15.3 H, Absolute Lymphs (auto) 0.96, Nucleated RBC % 0, Anisocytosis 1+, Sodium 133 L, Potassium 4.4, Chloride 96 L, Carbon Dioxide 29.0, Anion Gap 8, BUN 16, Creatinine 2.29 H, Estim Creat Clear Calc 34.09, Est GFR (MDRD) Af Amer 37 L, Est GFR (MDRD) Non-Af 31 L, BUN/Creatinine Ratio 7.0 L, Glucose 115 H, Calcium 9.1, Troponin I High Sens 10, B-Natriuretic Peptide 1143.7 H 02/28/24 21:01: Valproic Acid 75 02/28/24 21:36: Urine Color Heike, Urine Clarity Sl. Cloudy, Urine pH 6.0, Ur Specific [place] 1.015, Urine Protein 100 H, Urine Glucose (UA) 50 H, Urine Ketones Negative, Urine Occult Blood 250 H, Urine Nitrite Positive H, Urine Bilirubin 1 H, Urine Urobilinogen Normal, Ur Leukocyte Esterase 100 H, Urine RBC 50-100 SEEN, Urine WBC 0-5 SEEN, Ur Squamous Epith Cells 0 SEEN, Urine Bacteria 1+, Urine Mucus 0 SEEN Micro: Microbiology 02/28/24 20:48 Mucosa - Nose SARS-CoV-2, Influenza & RSV (PCR) - Final Imaging Radiology Impression Chest X-Ray 02/28/24 21:09 IMPRESSION: Right lung infiltrate suspicious for pneumonia. Recommend follow-up to complete resolution. Electronically Signed: Chance Panda MD at 21:31 EDT , Assessment & Plan Assessment/Plan (1) Aspiration pneumonia: (2) Dysphagia: (3) Acute metabolic encephalopathy: PLAN: Plan Patient is a 63-year-old male who presented to [facility] ED on 02/28/2024 from SNF for altered mentation and worsening hypoxia. 1. Suspected aspiration pneumonia with acute on chronic dysphagia, chronic hypoxic respiratory failure, recent history of ESBL E. coli and group C strep pneumonia ? Admit under inpatient status to PCU. CT chest on admit with multifocal right- sided pneumonia concerning for aspiration pneumonia. Failed bedside swallow study on admit. Speech therapy consulted. N.p.o. status for now. Did have recent ESBL E. coli and group C strep pneumonia in January, sensitive to Vanco and Zosyn. Leukocytosis and low-grade fever on admit but otherwise hemodynamically stable, did not meet sepsis criteria. Will treat with vancomycin and Zosyn for now. Sputum culture, urine antigens, respiratory PCR panel ordered. Can consider ID consult as needed. Chronically on 2 L nasal cannula, was on 3 L in the ED with good oxygen saturations, suspect patient is at his baseline oxygenation status. Continue home inhalers. 2. Mild acute metabolic encephalopathy ? Alert and making appropriate eye contact but not answering questions appropriately on admission. However, per and family member on admit, patient appears to be close to his baseline mental status. Treat pneumonia as above. Avoid sedating medications as able. Monitor. 3. ESRD on HD ? Nephrology consulted. Is apparently on [facility] schedule at [facility]; has been on MWF schedule during previous hospitalizations. Appears that last HD session was 02/27. Hemodynamically stable, labs stable on admit, no urgent need for dialysis. 4. Paroxysmal A-fib with RVR ? In normal sinus rhythm on admit. Continue home amiodarone, Lopressor and Eliquis. 5. Adult failure to thrive, chronic debility, history of stroke with left-sided hemiparesis ? PT/OT/case management consulted. Has been residing at [facility] for SNF care since last hospital stay in January. Patient notably had prolonged hospitalizations here in late October-early November and January. Required intubation during both hospitalizations and has multiple significant medical comorbidities as noted here. Patient remains full code per family request. Would consider discussing palliative care with family during this hospitalization. Continue home aspirin and statin. Chronic medical conditions: ? Anemia of chronic disease: Hemoglobin 11.9 on admit, at baseline. Monitor. ? Hypertension: Normotensive on admit but mildly dry appearing on exam. Okay to continue home Lopressor but will hold home amlodipine for now, restart as needed. ? Hyperlipidemia: Continue home statin. ? History of gastric ulcer/GERD: Continue home PPI. ? Seizure disorder: Continue home divalproex. DVT prophylaxis: Not indicated, on Eliquis CODE STATUS: Full code, verified Expected disposition: TBD Total clinical time spent by myself addressing the patient's medical issues, reviewing all the data, and collaborating with patient's care team: 75 minutes. Charges/Coding Visit Charges Inpatient E&M: 46259 Init Hosp L3
[2024-02-28] MEDS: Piperacil/Tazobactam 3.375 GM in 0.9% Normal Saline (50mL MB+) 50 ML IV (22:28)
--- NOTE | 2024-02-28 22:29 | CT_ITS ---
INDICATION: suspected CAP w/ hypoxia, CXR unclear EXAMINATION: CT Chest W/O Contrast Injection TECHNIQUE: Helically acquired images were obtained of the chest with sagittal and coronal reconstructed images. Individualized dose optimization techniques were used for this CT. COMPARISON: None. FINDINGS: LUNGS, PLEURA AND LARGE AIRWAYS: Scattered right lung airspace opacities and right lower lobe consolidation. Small bilateral pleural effusions. Left basilar atelectasis. No pneumothorax. THYROID: Unremarkable. HEART AND PERICARDIUM: Coronary artery calcifications are present. Trace pericardial effusion. Cardiomegaly. MEDIASTINUM AND JUDIE: No mediastinal or hilar adenopathy. Esophagus is unremarkable. No hiatal hernia. VESSELS: No thoracic aortic aneurysm. UPPER ABDOMEN: Hyperdense gallbladder may represent sludge. BONES: Nondisplaced fracture of the mid sternum of unknown age. CT/Chest without Contrast IMPRESSION: 1. Scattered right lung airspace opacities and right lower lobe consolidation consistent with multilobar pneumonia. 2. Small bilateral pleural effusions. 3. Nondisplaced fracture of the sternum of unknown age. Electronically Signed: Shahbaz Rosales DO at 1:23 EDT ,
[2024-02-28 22:30] VITALS: BP 131/77; PULSE 81; RESP 22; TEMP 37; O2SAT 98
[2024-02-28 23:00] VITALS: BP 131/74; PULSE 89; RESP 20; TEMP 37.1; O2SAT 99
[2024-02-28] MEDS: Vancomycin HCl 2,000 MG in 0.9% Normal Saline (500mL Bag) 500 ML 250 MG IV (23:05)
[2024-02-28 23:26] LABS: Lactic Acid 1.1 mmol/L (0.4-1.9)
[2024-02-29] VITALS (12 sets, daily range): BP systolic 105–126; BP diastolic 53–70; PULSE 72–86; RESP 12–18; TEMP 36.6–36.7; O2SAT 96–99; BMI 24.4
--- NOTE | 2024-02-29 01:09 | PCM.RX.CS ---
Consult Antibiotic Management Pharmacy has been consulted to manage selected antibiotic: Vancomycin Type of Intervention Type of Consult: New start Suspected Infection Suspected Infection: Pneumonia Labs Labs: Sodium 133 mmol/L (136-145) L 02/28/24 20:55 Potassium 4.4 mmol/L (3.5-5.1) 02/28/24 20:55 Chloride 96 mmol/L (98-107) L 02/28/24 20:55 Carbon Dioxide 29.0 mmol/L (21.0-32.0) 02/28/24 20:55 Anion Gap 8 (5-15) 02/28/24 20:55 BUN 16 mg/dL (7-18) 02/28/24 20:55 Creatinine 2.29 mg/dL (0.70-1.30) H 02/28/24 20:55 Est GFR (MDRD) Af Amer 37 mL/min (>60) L 02/28/24 20:55 Est GFR (MDRD) Non-Af 31 mL/min (>60) L 02/28/24 20:55 BUN/Creatinine Ratio 7.0 RATIO (10-20) L 02/28/24 20:55 Glucose 115 mg/dL (74-106) H 02/28/24 20:55 Microbiology Microbiology: Microbiology 02/28/24 20:48 Mucosa - Nose SARS-CoV-2, Influenza & RSV (PCR) - Final Dosing Weight Weight used for dosin.2 kg Estimated Creatinine Clearance Estimated Creatinine Clearance: 34 Goal Trough Goal Trough: 15-20 mcg/mL Pharmacy Plan for Drug Dosing Pharmacy Plan for Drug Dosing: An initial vancomycin 2000mg dose was given in ED 02/28/24 @2305. With pt scheduled for hemodialysis, the next dose of 500mg will be given post-HD. Pharmacy will confirm HD sessions with nursing. Subsequent doses will be determined by pre-dialysis levels as required. Pharmacy Service will continue to monitor and adjust dosing as required.
[2024-02-29] MEDS: Lactated Ringers 1,000 ML 150 ML IV (01:14)
[2024-02-29 06:18] LABS: Hematocrit 35.3 % (40-54); Hemoglobin 10.9 g/dL (13.0-16.5); Mean Corp Hgb Conc 30.9 g/dL (32-36); Mean Corpuscular Hgb 29.2 pg (27.0-32.0); Mean Corpuscular Volume 94.6 fL (80-94); Mean Platelet Vol. 8.8 fl (6.2-12.0); Platelet Count 112 K/mm3 (150-450); RBC Distribution Width CV 18.6 % (11.6-14.6); RBC Distribution Width SD 64.2 fl (35.1-43.9); Red Blood Count 3.73 M/mm3 (4.6-6.2); White Blood Count 17.7 K/mm3 (4.4-11.0)
[2024-02-29 06:35] LABS: Anion Gap 6 (5-15); BUN 19 mg/dL (7-18); BUN/Creat Ratio 7.7 RATIO (10-20); Calcium,Total 8.5 mg/dL (8.5-10.1); Chloride 99 mmol/L (98-107); Creatinine, Serum 2.48 mg/dL (0.70-1.30); EST Glomerular Filtration Rate 28 mL/min (>60); Est Glom Filt Rate - Afr Amer 34 mL/min (>60); Estimated Creatinine Clearance 31.48 ml/min; Glucose 105 mg/dL (74-106); Sodium Level 135 mmol/L (136-145)
--- NOTE | 2024-02-29 07:48 | PCM.PN.HOSP ---
Reason for Visit Reason for Visit: Diagnoses Metabolic encephalopathy (02/28/24) Pneumonitis due to inhalation of food and vomit (02/28/24) Dysphagia, unspecified (02/28/24) Subjective Subjective Patient is a 63-year-old male resident to [facility] presented with altered mental status with hypoxia Objective Data Objective Data Vital Signs: Vital Signs Temp Pulse Resp BP Pulse Ox O2 Del Method O2 Flow Rate 98.1 F 86 18 116/58 L 98 Room Air 3 02/29/24 05:15 02/29/24 05:15 02/29/24 05:15 02/29/24 05:15 02/29/24 05:15 02/29/24 05:15 02/29/24 00:45 Oxygen Flow Rate (L/min) 3 Oxygen Delivery Method Room Air Weight: 77.2 kg Body Mass Index (BMI) 24.4 Intake & Output: Intake and Output for Last 24 Hours 02/27/24 02/28/24 02/29/24 23:59 23:59 23:59 Intake Total 50 / 50 562.5 / 562.5 Balance 50 / 50 562.5 / 562.5 Lab / Micro Data 02/29/24 06:08 02/29/24 06:08 Labs: Laboratory Results - last 24 hr 02/28/24 20:30: Lactic Acid 1.1 02/28/24 20:55: WBC 17.1 H, RBC 4.00 L, Hgb 11.9 L, Hct 37.6 L, MCV 94.0, MCH 29.8, MCHC 31.6 L, RDW Std Deviation 65.2 H, RDW Coeff of Silvia 19.2 H, Plt Count 112 L, MPV 8.2, Immature Gran % (Auto) 0.900, Neut % (Auto) 89.3 H, Lymph % (Auto) 5.6 L, [place] % (Auto) 3.7, Eos % (Auto) 0.0, Baso % (Auto) 0.5, Absolute Neuts (auto) 15.3 H, Absolute Lymphs (auto) 0.96, Nucleated RBC % 0, Anisocytosis 1+, Sodium 133 L, Potassium 4.4, Chloride 96 L, Carbon Dioxide 29.0, Anion Gap 8, BUN 16, Creatinine 2.29 H, Estim Creat Clear Calc 34.09, Est GFR (MDRD) Af Amer 37 L, Est GFR (MDRD) Non-Af 31 L, BUN/Creatinine Ratio 7.0 L, Glucose 115 H, Calcium 9.1, Troponin I High Sens 10, B-Natriuretic Peptide 1143.7 H 02/28/24 21:01: Valproic Acid 75 02/28/24 21:36: Urine Color Heike, Urine Clarity Sl. Cloudy, Urine pH 6.0, Ur Specific [place] 1.015, Urine Protein 100 H, Urine Glucose (UA) 50 H, Urine Ketones Negative, Urine Occult Blood 250 H, Urine Nitrite Positive H, Urine Bilirubin 1 H, Urine Urobilinogen Normal, Ur Leukocyte Esterase 100 H, Urine RBC 50-100 SEEN, Urine WBC 0-5 SEEN, Ur Squamous Epith Cells 0 SEEN, Urine Bacteria 1+, Urine Mucus 0 SEEN 02/29/24 06:08: WBC 17.7 H, RBC 3.73 L, Hgb 10.9 L, Hct 35.3 L, MCV 94.6 H, MCH 29.2, MCHC 30.9 L, RDW Std Deviation 64.2 H, RDW Coeff of Silvia 18.6 H, Plt Count 112 L, MPV 8.8, Sodium 135 L, Potassium 4.0, Chloride 99, Carbon Dioxide 30.0, Anion Gap 6, BUN 19 H, Creatinine 2.48 H, Estim Creat Clear Calc 31.48, Est GFR (MDRD) Af Amer 34 L, Est GFR (MDRD) Non-Af 28 L, BUN/Creatinine Ratio 7.7 L, Glucose 105, Calcium 8.5 Micro: Microbiology 02/29/24 00:28 Mucosa - Nasopharyngeal Respiratory Panel (PCR) - Final 02/28/24 20:48 Mucosa - Nose SARS-CoV-2, Influenza & RSV (PCR) - Final Radiography Diagnostic Testing: Radiology Impression Brain CT 02/28/24 21:05 IMPRESSION: Chronic microvascular ischemic changes. No evidence of acute infarct or hemorrhage. Electronically Signed: Juanito Starks DO at 22:58 EDT , Chest X-Ray 02/28/24 21:09 IMPRESSION: Right lung infiltrate suspicious for pneumonia. Recommend follow-up to complete resolution. Electronically Signed: Chance Panda MD at 21:31 EDT , Chest CT 02/28/24 22:29 IMPRESSION: 1. Scattered right lung airspace opacities and right lower lobe consolidation consistent with multilobar pneumonia. 2. Small bilateral pleural effusions. 3. Nondisplaced fracture of the sternum of unknown age. Electronically Signed: Shahbaz Rosales DO at 1:23 EDT , Physical Exam Narrative GENERAL: Lethargic but arousable HEENT: Atraumatic; normocephalic EYES; Anicteric, Normal Conjunctiva NECK; supple, normal thyroid, RESPIRATORY: Diminished to auscultation CARDIOVASCULAR: Regular S1 S2, GI: soft, normoactive bowel sounds, : No Renal angle tenderness; EXTREMITIES: No edema, no clubbing, MUSCULOSKELETAL: no muscle wasting NEURO: Awake; no lateralizing signs. SKIN: No Rash PSYCH; Flat affect Assessment & Plan Assessment/Plan (1) Aspiration pneumonia: (2) Dysphagia: (3) Acute metabolic encephalopathy: PLAN: Plan Patient is a 63-year-old male resident to [facility] facility presented with altered mental status with hypoxia 1. Acute metabolic encephalopathy ? Secondary to hypoxia from aspiration pneumonia admitted to regular nursing floor for further management 2. Suspected aspiration pneumonia ? Patient has recent history of ESBL E. coli as well as group C strep pneumo. Admitted to regular nursing floor started on broad-spectrum antibiotic therapy with Zosyn and vancomycin in addition to supplemental oxygen titrated to keep saturation greater than 90 3. End-stage renal disease ? Patient is on dialysis MTuThF schedule. Consult placed to nephrology for dialysis orders 4. Paroxysmal A-fib with RVR ? In normal sinus rhythm on admit. on amiodarone, Lopressor and Eliquis, continued. 5. Adult failure to thrive, chronic debility, history of stroke with left-sided hemiparesis ? PT/OT/case management consulted. 6. Anemia - Secondary to chronic disorder monitoring H&H and transfuse if patient becomes symptomatic or hemoglobin falls below 7 7. History of gastric CA ? Patient is on PPI 8. Dyslipidemia -Patient is on statin therapy, continued at home dose 9. Hypertension - Blood pressure controlled, home medications continued with dose adjustment as needed 10. Seizure disorder ? Patient is on valproic acid did continue 11. DVT prophylaxis ? Patient already anticoagulated with apixaban Time spent in the patient's overall evaluation,decision-making process, review of diagnostic data, adjustment of management, discussion with other providers, nursing nursing and ancillary staff involved in patient's care documentation, 52 Minutes Charges/Coding Visit Charges Inpatient E&M: 83034 [facility] L3
--- NOTE | 2024-02-29 09:36 | CASEMGMT ---
SW met with patient's as patient was sleeping. SW confirmed the plan is for [facility]. Plan: d/c back to [facility] when medically ready. Angie ELIAS
--- NOTE | 2024-02-29 09:47 | CASEMGMT ---
Discharge Planning Updates sent to [facility] via [employer]. Dione Londono DC Planning Asst.
[2024-02-29] MEDS: 0.9% Saline Lock 10 ML Syringe IV (10:15)
[2024-02-29] MEDS: Piperacil/Tazobactam 3.375 GM in 0.9% Normal Saline (50mL MB+) 50 ML IV ×2 (10:15→21:12)
--- NOTE | 2024-02-29 12:23 | WOUNDNOTE ---
wound photo: coccyx/buttock
--- NOTE | 2024-02-29 13:07 | PCM.CONS.R ---
Assessment & Plan Assessment/Plan (1) ESRD (end stage renal disease) on dialysis: PLAN: On hemodialysis, next dialysis tomorrow. No acute indications today. Breathing looks comfortable. Electrolytes are acceptable. On broad-spectrum antibiotics for pneumonia. HPI Consult Data Date of Consult: 02/29/24 HPI Narrative Reason for Consultation: ESRD HPI Narrative: JAMES RICO, is a 63 M who presents To the hospital with altered mental status. Nephrology on consultation in view of ESRD. Currently on hemodialysis at the intermediate, 4 times a week. Last dialysis appears to be yesterday 02/28/2024. Access is a tunneled dialysis catheter. He was recently admitted here for a long time in view of cardiac arrest, respiratory failure, septic shock. He was discharged to intermediate. Currently being treated for pneumonia, broad-spectrum antibiotics. [facility]LY [facility] Medical History Medical non-compliance Bilateral carpal tunnel syndrome Entrapment neuropathy Weakness of both hands Cerebral infarction, watershed distribution, unilateral, chronic Chronic in-center hemodialysis status Valvular heart disease Atrial fibrillation and flutter Chronic kidney disease (CKD) stage G4/A1, severely decreased glomerular filtration rate (GFR) between 15-29 mL/min/1.73 square meter and albuminuria creatinine ratio less than 30 mg/g Rotator cuff rupture, complete Chronic diastolic congestive heart failure Hypertension Hypomagnesemia Diabetes mellitus Vitamin D deficiency Chronic obstructive pulmonary disease Left hemiparesis Debility Ventricular tachycardia (paroxysmal) Post herpetic neuralgia Hyperlipidemia ESRD (end stage renal disease) on dialysis Anemia Right leg weakness Weakness Epilepsy Polyneuropathy History of right MCA stroke Stroke End stage renal disease Wears glasses Wears partial dentures Insulin dependent diabetes mellitus Ambulates with cane Arthritis History of renal disease High cholesterol Restless legs Back pain Migraine headache Injury of head and neck Syncope Dietary restriction Heartburn Former smoker History of pain when walking Cardiology follow-up encounter History of echocardiogram History of stress test History of atrial fibrillation History of renal dialysis Chronic kidney disease, stage 4 (severe) TIA (transient ischemic attack) Acute and chronic respiratory failure with hypoxia CHF (congestive heart failure) Seizures HTN (hypertension) Peripheral neuropathy Home Medications ?Medication ?Instructions ?Recorded ?Last Taken ?Type albuterol sulfate 90 mcg/actuation 2 puff inhalation Q6H PRN Wheezing 08/24/22 Unknown History aerosol inhaler (Ventolin HFA) metoprolol tartrate 25 mg tablet 25 mg PO DAILY afib 08/24/22 01/25/24 History amlodipine 10 mg tablet 10 mg PO DAILY #30 tabs 09/15/22 01/25/24 Rx Manual wheelchair #1 ea 03/24/23 Unknown Rx brimonidine 0.2 % eye drops 1 drp ophthalmic (eye) BID eyes 05/11/23 01/25/24 History latanoprost 0.005 % eye drops 1 drp RIGHT EYE QHS eyes 10/30/23 01/25/24 History guaifenesin 100 mg/5 mL oral liquid 200 mg (10 mL) PO Q4H PRN PRN 11/11/23 01/19/24 Rx Cough #0 mL nystatin 100,000 unit/gram topical 1 applic topical BID #0 grams 11/11/23 01/25/24 Rx powder ([facility]) pantoprazole 40 mg tablet,delayed 40 mg PO BID #0 tabs 11/11/23 01/25/24 Rx release apixaban 2.5 mg tablet (Eliquis) 2.5 mg PO BID 01/26/24 01/25/24 History atorvastatin 20 mg tablet 20 mg PO DAILY 01/26/24 01/25/24 History calcitriol 0.25 mcg capsule 0.25 mcg PO MOWEFR 01/26/24 01/16/24 History cyclobenzaprine 7.5 mg tablet 7.5 mg PO Q8H PRN muscle spasm 01/26/24 01/15/24 History divalproex 125 mg capsule,delayed 1,000 mg PO BID 01/26/24 01/25/24 History release sprinkle midodrine 10 mg tablet 10 mg PO DAILY PRN SBP 01/26/24 Unknown History acetaminophen 650 mg/20.3 mL oral 650 mg (20.3 mL) PO Q6H PRN PRN 02/04/24 Unknown Rx solution Pain 1-10 Or Fever >100.7 #0 mL sennosides 8.6 mg-docusate sodium 2 tab NG BID PRN Constipation #0 02/04/24 Unknown Rx 50 mg tablet (Stool tabs Softener-Stimulant Laxative) amiodarone 200 mg tablet 200 mg PO DAILY 02/28/24 Unknown History Allergy/AdvReac Type Severity Reaction Status Date / Time lisinopril AdvReac Severe Other Verified 12/20/23 11:12 oxycodone AdvReac Severe Other Verified 12/20/23 11:12 hydrocodone bitartrate (From AdvReac Mild HYPER Verified 12/20/23 11:12 Vicodin) Family History Father Cancer Prostate Heart disease Mother Heart disease Diabetes Other COPD (chronic obstructive pulmonary disease) Surgical History S/P arteriovenous (AV) fistula creation Hx of right cataract extraction Hx of left cataract extraction Hx of arteriovenostomy for renal dialysis History of rotator cuff surgery History of umbilical hernia repair Status post foot surgery Social History housing: intermediate number of children: 3 current occupational status: disabled Smoking Status: Never smoker Smokeless tobacco user: snuff second hand exposure: No alcohol intake: never substance use type: does not use what type of physical activity do you participate in: other details: health point frequency: 3-4 times per week alba/tenriism: Other seatbelt use: always ROS Review of Systems ROS Unobtainable: due to mental status Physical Exam Narrative no obvious distress no pallor no icterus no JVD s1s2 no murmurs lungs clear abdomen soft no organomegaly no edema no cyanosis Lab / Micro Data 02/29/24 06:08 02/29/24 06:08 Labs: Laboratory Results - last 24 hr 02/28/24 20:30: Lactic Acid 1.1 02/28/24 20:55: WBC 17.1 H, RBC 4.00 L, Hgb 11.9 L, Hct 37.6 L, MCV 94.0, MCH 29.8, MCHC 31.6 L, RDW Std Deviation 65.2 H, RDW Coeff of Silvia 19.2 H, Plt Count 112 L, MPV 8.2, Immature Gran % (Auto) 0.900, Neut % (Auto) 89.3 H, Lymph % (Auto) 5.6 L, [place] % (Auto) 3.7, Eos % (Auto) 0.0, Baso % (Auto) 0.5, Absolute Neuts (auto) 15.3 H, Absolute Lymphs (auto) 0.96, Nucleated RBC % 0, Anisocytosis 1+, Sodium 133 L, Potassium 4.4, Chloride 96 L, Carbon Dioxide 29.0, Anion Gap 8, BUN 16, Creatinine 2.29 H, Estim Creat Clear Calc 34.09, Est GFR (MDRD) Af Amer 37 L, Est GFR (MDRD) Non-Af 31 L, BUN/Creatinine Ratio 7.0 L, Glucose 115 H, Calcium 9.1, Troponin I High Sens 10, B-Natriuretic Peptide 1143.7 H 02/28/24 21:01: Valproic Acid 75 02/28/24 21:36: Urine Color [place], Urine Clarity Sl. Cloudy, Urine pH 6.0, Ur Specific [place] 1.015, Urine Protein 100 H, Urine Glucose (UA) 50 H, Urine Ketones Negative, Urine Occult Blood 250 H, Urine Nitrite Positive H, Urine Bilirubin 1 H, Urine Urobilinogen Normal, Ur Leukocyte Esterase 100 H, Urine RBC 50-100 SEEN, Urine WBC 0-5 SEEN, Ur Squamous Epith Cells 0 SEEN, Urine Bacteria 1+, Urine Mucus 0 SEEN 02/29/24 06:08: WBC 17.7 H, RBC 3.73 L, Hgb 10.9 L, Hct 35.3 L, MCV 94.6 H, MCH 29.2, MCHC 30.9 L, RDW Std Deviation 64.2 H, RDW Coeff of Silvia 18.6 H, Plt Count 112 L, MPV 8.8, Sodium 135 L, Potassium 4.0, Chloride 99, Carbon Dioxide 30.0, Anion Gap 6, BUN 19 H, Creatinine 2.48 H, Estim Creat Clear Calc 31.48, Est GFR (MDRD) Af Amer 34 L, Est GFR (MDRD) Non-Af 28 L, BUN/Creatinine Ratio 7.7 L, Glucose 105, Calcium 8.5 Micro: Microbiology 02/28/24 21:36 Urine, Random Legionella Antigen - Final 02/28/24 21:36 Urine, Random Streptococcus pneumoniae Antigen (M - Final 02/29/24 00:28 Mucosa - Nasopharyngeal Respiratory Panel (PCR) - Final 02/28/24 20:48 Mucosa - Nose SARS-CoV-2, Influenza & RSV (PCR) - Final Imaging Radiology Impression Brain CT 02/28/24 21:05 IMPRESSION: Chronic microvascular ischemic changes. No evidence of acute infarct or hemorrhage. Electronically Signed: Juanito VRagini Starks DO at 22:58 EDT , Chest X-Ray 02/28/24 21:09 IMPRESSION: Right lung infiltrate suspicious for pneumonia. Recommend follow-up to complete resolution. Electronically Signed: Chance Panda MD at 21:31 EDT , Chest CT 02/28/24 22:29 IMPRESSION: 1. Scattered right lung airspace opacities and right lower lobe consolidation consistent with multilobar pneumonia. 2. Small bilateral pleural effusions. 3. Nondisplaced fracture of the sternum of unknown age. Electronically Signed: Shahbaz Rosales, at 1:23 EDT ,
--- NOTE | 2024-02-29 17:13 | MRI_ITS ---
INDICATION: R side weakness EXAMINATION: MRI - MR Brain W/O Contrast TECHNIQUE: Multiplanar and multisequence MR images of the brain were obtained. IV Contrast Dosage and Agent: None. COMPARISON: 11/04/2023 MRI. FINDINGS: BRAIN PARENCHYMA: No evidence of an acute infarct. No evidence of acute intracranial hemorrhage. No evidence of a mass. White matter changes consistent with mild to moderate chronic microvascular disease. CSF SPACES: Mild to moderate cerebral atrophy. VASCULAR SYSTEM: Unremarkable. CALVARIUM AND SKULL BASE: Unremarkable. PARANASAL SINUSES AND MASTOID AIR CELLS: Unremarkable. ORBITS: The globes, extraocular muscles, optic nerves and retrobulbar fat appear normal. MRI/Brain without Contrast IMPRESSION: No acute intracranial abnormality. Electronically Signed: Shahbaz Rosales DO at 4:13 EDT ,
[2024-02-29] MEDS: Divalproex Sodium 125 MG SPRINKLE 1000 MG PO (21:10)
[2024-02-29] MEDS: Latanoprost 0.005% 1 Bottle 1 DRP RIGHT EYE (21:10)
[2024-02-29] MEDS: APIXABAN 2.5 MG TABLET (WCH) PO (21:10)
[2024-02-29] MEDS: Atorvastatin Calcium 20 MG Tablet PO (21:10)
[2024-02-29] MEDS: Pantoprazole Sodium 40 MG Tablet PO (21:10)
[2024-02-29] MEDS: BRIMONIDINE 0.2% 5ML BOTTLE 1 DRP OPHTHALMIC (21:11)
[2024-02-29] MEDS: Nystatin Powder 15gm Bottle 1 APPLIC TOPICAL (21:12)
[2024-03-01] VITALS (14 sets, daily range): BP systolic 103–193; BP diastolic 57–73; PULSE 72–87; RESP 14–116; TEMP 36.5–36.7; O2SAT 95–100; BMI 24.4
[2024-03-01] MEDS: Ondansetron 4 MG/2 ML Vial IV (05:57)
[2024-03-01] MEDS: 0.9% Normal Saline 1,000 ML IV.SOLN. 1000 ML OPERA.SITE (07:53)
[2024-03-01] MEDS: 0.9% Saline Lock 10 ML Syringe IV ×2 (07:53→10:22)
[2024-03-01] MEDS: PureFlow B 2K Dialysis Soln 1 BAG 6 BAG PF (07:54)
--- NOTE | 2024-03-01 07:55 | PCM.PN.HOSP ---
Reason for Visit Reason for Visit: Diagnoses Metabolic encephalopathy (02/28/24) Pneumonitis due to inhalation of food and vomit (02/28/24) End stage renal disease (02/28/24) Dysphagia, unspecified (02/28/24) Dependence on renal dialysis (02/28/24) Subjective Subjective Patient was noted to have right-sided weakness. His initial head CT obtained in the ED was unremarkable, given his significant past history and MRI without contrast has been ordered. Objective Data Objective Data Vital Signs: Vital Signs Temp Pulse Resp BP Pulse Ox O2 Del Method O2 Flow Rate 98 F 78 18 118/59 L 99 Nasal Cannula 3 03/01/24 02:00 03/01/24 07:40 03/01/24 07:40 03/01/24 07:40 03/01/24 07:40 03/01/24 07:40 03/01/24 07:40 Oxygen Flow Rate (L/min) 3 Oxygen Delivery Method Nasal Cannula Weight: 77.2 kg Body Mass Index (BMI) 24.4 Intake & Output: Intake and Output for Last 24 Hours 02/28/24 02/29/24 03/01/24 23:59 23:59 23:59 Intake Total 50 / 50 612.5 / 612.5 50 / 50 Output Total 0 / 0 Balance 50 / 50 612.5 / 612.5 50 / 50 Medical Nutrition Assessment Dietitian: Malnutrition Criteria Met Start: 02/29/24 15:43 Freq: Status: Active Protocol: Document 02/29/24 15:43 SB (Rec: 02/29/24 15:44 SB [id number]) Nutrition Malnutrition Evidence of Malnutrition Exists Yes Malnutrition (severe): Chronic Evidenced By Suboptimal Energy Intake ( Severe),Weight Loss (Severe) Clinical Problem Chronic Disease or Condition Related Malnutrition Etiology severe protein-calorie malnutrition in the context of chronic disease related to swallowing difficulty and inadequate oral intake Signs/Symptoms as evidence by mechanically altered diet, 10.1% unintentional weight loss x 1 month, and PO intake meeting less than <50% of estimated nutrition needs x 1 month. Status Active Problem Recommendation Dietitian Recommendations/Changes If deemed safe for PO, recommend advance diet as tolerated to renal general, consistency/texture per CAREER AND TECHNOLOGY EDUCATION TEACHER. Will add 120ml PO Nepro x TID as diet advanced from NPO. If PO remains contraindicated consider enteral nutrition support to prevent further energy and protein depletion. Reviewed and approved by Kanchan Ambrose, MS, RD, LD Lab / Micro Data 02/29/24 06:08 02/29/24 06:08 Micro: Microbiology 02/28/24 21:36 Urine, Random Legionella Antigen - Final 02/28/24 21:36 Urine, Random Streptococcus pneumoniae Antigen (M - Final 02/29/24 00:28 Mucosa - Nasopharyngeal Respiratory Panel (PCR) - Final 02/28/24 20:48 Mucosa - Nose SARS-CoV-2, Influenza & RSV (PCR) - Final Radiography Diagnostic Testing: Radiology Impression Brain MRI 02/29/24 17:13 IMPRESSION: No acute intracranial abnormality. Electronically Signed: Shahbaz Rosales DO at 4:13 EDT , Physical Exam Narrative GENERAL: Lethargic but arousable HEENT: Atraumatic; normocephalic EYES; Anicteric, Normal Conjunctiva NECK; supple, normal thyroid, RESPIRATORY: Diminished to auscultation CARDIOVASCULAR: Regular S1 S2, GI: soft, normoactive bowel sounds, : No Renal angle tenderness; EXTREMITIES: No edema, no clubbing, MUSCULOSKELETAL: no muscle wasting NEURO: Awake; no lateralizing signs. SKIN: No Rash PSYCH; Flat affect Assessment & Plan Assessment/Plan (1) Aspiration pneumonia: (2) Dysphagia: (3) Acute metabolic encephalopathy: PLAN: Plan Patient is a 63-year-old male resident to [facility] facility presented with altered mental status with hypoxia 1. Acute metabolic encephalopathy ? Secondary to hypoxia from aspiration pneumonia admitted to regular nursing floor for further management 2. Suspected aspiration pneumonia ? Patient has recent history of ESBL E. coli as well as group C strep pneumo. Admitted to regular nursing floor started on broad-spectrum antibiotic therapy with Zosyn and vancomycin in addition to supplemental oxygen titrated to keep saturation greater than 90 3. End-stage renal disease ? Patient is on dialysis MTuThF schedule. Consult placed to nephrology for dialysis orders 4. Paroxysmal A-fib with RVR ? In normal sinus rhythm on admit. on amiodarone, Lopressor and Eliquis, continued. 5. Adult failure to thrive, chronic debility, history of stroke with left-sided hemiparesis ? PT/OT/case management consulted. 6. Anemia - Secondary to chronic disorder monitoring H&H and transfuse if patient becomes symptomatic or hemoglobin falls below 7 7. History of gastric CA ? Patient is on PPI 8. Dyslipidemia -Patient is on statin therapy, continued at home dose 9. Hypertension - Blood pressure controlled, home medications continued with dose adjustment as needed 10. Seizure disorder ? Patient is on valproic acid did continue 11. DVT prophylaxis ? Patient already anticoagulated with apixaban 12. Previous CVA with residual left-sided weakness ? Patient was noted to have right-sided weakness. MRI without contrast has been ordered for subsequent eval Time spent in the patient's overall evaluation,decision-making process, review of diagnostic data, adjustment of management, discussion with other providers, nursing nursing and ancillary staff involved in patient's care documentation, 50 Minutes Charges/Coding Visit Charges Inpatient E&M: 02001 [facility] L3
[2024-03-01 08:13] LABS: Absolute Lymphocyte Count 0.88 X10^3/uL (0.83-4.51); Absolute Neutrophil Count 7.5 X10^3/uL (2.0-7.7); Basophil# 0.04 X10^3/uL; Basophil% 0.4 % (0-1); Eosinophil# 0.12 X10^3/uL; Eosinophils% 1.3 % (0-5); Hematocrit 29.4 % (40-54); Hemoglobin 9.1 g/dL (13.0-16.5); Lymphocyte # 0.88 X10^3/ul (0.83-4.51); Lymphocyte % 9.7 % (19-41); Mean Corpuscular Hgb 29.3 pg (27.0-32.0); Mean Corpuscular Volume 94.5 fL (80-94); Mean Platelet Vol. 8.8 fl (6.2-12.0); Monocyte# 0.38 X10^3/uL; Monocyte% 4.2 % (0-10); NRBC Flagged by Analyzer 0 % (0-5); Neutrophil # 7.54 X10^3/uL (2.7-7.7); Neutrophil % 83.4 % (47-70); Platelet Count 116 K/mm3 (150-450); RBC Distribution Width CV 18.6 % (11.6-14.6); RBC Distribution Width SD 63.9 fl (35.1-43.9); Red Blood Count 3.11 M/mm3 (4.6-6.2); White Blood Count 9.1 K/mm3 (4.4-11.0)
[2024-03-01 08:27] LABS: Anion Gap 5 (5-15); BUN 23 mg/dL (7-18); BUN/Creat Ratio 8.6 RATIO (10-20); Calcium,Total 8.3 mg/dL (8.5-10.1); Chloride 101 mmol/L (98-107); Creatinine, Serum 2.67 mg/dL (0.70-1.30); EST Glomerular Filtration Rate 26 mL/min (>60); Est Glom Filt Rate - Afr Amer 31 mL/min (>60); Estimated Creatinine Clearance 29.24 ml/min; Glucose 72 mg/dL (74-106); Magnesium 1.8 mg/dL (1.6-2.6); Phosphorus 2.4 mg/dL (2.5-4.9); Potassium 3.8 mmol/L (3.5-5.1); Sodium Level 136 mmol/L (136-145)
[2024-03-01] MEDS: Heparin 10,000 UNITS/10 ML Vial IV (10:22)
[2024-03-01] MEDS: Divalproex Sodium 125 MG SPRINKLE 1000 MG PO ×2 (11:01→22:30)
[2024-03-01] MEDS: APIXABAN 2.5 MG TABLET (WCH) PO ×2 (11:01→22:31)
[2024-03-01] MEDS: Pantoprazole Sodium 40 MG Tablet PO ×2 (11:02→22:32)
[2024-03-01] MEDS: BRIMONIDINE 0.2% 5ML BOTTLE 1 DRP OPHTHALMIC ×2 (11:02→22:30)
[2024-03-01] MEDS: Metoprolol Tartrate 25 MG Tablet PO (11:02)
[2024-03-01] MEDS: Amiodarone 200 MG Tablet PO (11:02)
[2024-03-01] MEDS: Piperacil/Tazobactam 3.375 GM in 0.9% Normal Saline (50mL MB+) 50 ML IV ×2 (11:40→22:46)
--- NOTE | 2024-03-01 12:59 | SP.MBSS_ITS ---
Modified Barium Swallow Patient Information Study Date: 03/01/24 Study Time: 12:30 Direct Billable Minutes: 75 Total Minutes procedure & reportin Diagnosis: Dysphagia 13.10; PNA J18.9 Referring Physician: Justin Patel Reason for Referral: Objectively assess swallow function, assess risk for aspiration, and determine recommendations for least restrictive diet textures and compensatory strategies to improve safety of swallow. Medical History: Pt presented to [facility] ED 02/28/24 from SNF for altered mentation and worsening hypoxia. Of note, pt has had multiple prolonged admissions here in the past several months, most recently from 01/25-02/03. Had cardiopulmonary arrest at SNF on 01/25 leading to that admission, and that hospitalization was complicated by acute on chronic hypoxic respiratory failure, pneumonia and septic shock. In the ED, reported he hasn't been eating much and has had significant coughing episodes at times over the past several weeks. CT brain was unremarkable. Chest x-ray showed right lung infiltrate suspicious for pneumonia. CT chest without contrast showed scattered right lung airspace opacities and right lower lobe consolidation consistent with multilobar pneumonia, along with small bilateral pleural effusions. Pt admitted to PCU for management of aspiration PNA and acute metabolic encephalopathy amongst other comorbidities. He was referred for ST consult and made NPO. ST recommended NPO w/ sips and chips with plans for MBSS 03/01/24. PMH: Medical non-compliance, Bilateral carpal tunnel syndrome, Entrapment neuropathy, Weakness of both hands, Cerebral infarction, watershed distribution, unilateral, chronic (R MCA), CKD, CHF, HTN, L hemiparesis, Debility, HLD, ESRD on dialysis, Epilepsy, Injury of head and neck, Syncope, Heartburn, Former smoker, Acute and chronic respiratory failure with hypoxia, Peripheral neuropathy (See EMR for full PMH). Current Diet Ordered: NPO w/ sips and chips Mental Status: Impaired Respiratory Status: Oxygenating on 3L/M nasal cannula Penetration-Aspiration Scale Penetration-Aspiration Scale: OBJECTIVE ASSESSMENT OF SWALLOW FUNCTION (QUANTITATIVE ? PER TRIAL): PENETRATION / ASPIRATION SCALE (WELCH): 1 = does not enter airway 2 = enters airway/above vocal folds/ejected 3 = enters airway/above vocal folds/not ejected 4 = enters airway/contacts vocal folds/ejected 5 = enters airway/contacts vocal folds/not ejected 6 = enters airway/below vocal folds/ejected 7 = enters airway/below vocal folds/not ejected despite effort 8 = enters airway/below vocal folds/no effort VIDEOFLOROSCOPIC SCALE SCORE (WELCH): Grade I = aspiration of material that has penetrated into the laryngeal vestibule, intact cough reflex Grade II = aspiration < 10 % of the bolus, intact cough reflex Grade III = aspiration of < 10 % of the bolus, reduced cough reflex or aspiration of > 10 % of the bolus, intact cough reflex Grade IV = aspiration of > 10 % of the bolus, reduced cough reflex Penetration-Aspiration Scale Score Thin Liquid via teaspoon: Result: 2= enter airway/above vocal folds/ejected Thin Liquid via teaspoon Trial 2: Result: 2= enter airway/above vocal folds/ejected Thin Liquid via small single sip: cup: Result: 3= enters airways/above vocal folds/not ejected Comment: Cued cough and re-swallow = effective [place] Thick Liquid via small single sip: cup: Result: 3= enters airways/above vocal folds/not ejected Pudding via teaspoon: Result: 1= does not enter airway 1/4 Cookie: Result: 1= does not enter airway Thin Liquid via single sip: straw: Result: 5= enters airways/contacts vocal folds/not ejected Comment: Cued cough and re-swallow = effective. Thin Liquid via small single sip: cup Trial 2: Result: 2= enter airway/above vocal folds/ejected Thin Liquid via small single sip: cup Trial 3: Result: 3= enters airways/above vocal folds/not ejected Thin Liquid via small single sip: cup Effortful swallow: Result: 5= enters airways/contacts vocal folds/not ejected Comment: Cued cough and re-swallow = effective. [place] Thick Liquid via small single sip: cup Trial 2: Result: 2= enter airway/above vocal folds/ejected Oral Phase Labial Seal: Interlabial escape, no progression to anterior lip Tongue Control During Bolus Hold: Posterior escape of greater than half of bolus Bolus Preparation/Mastication: Disorganized chewing/mashing with solid pieces of bolus unchewed (cookie appeared mostly chewed, small un-chewed pieces) Bolus Transport/Lingual Motion: Slowed tongue motion Oral Residue: Residue collection on oral structures Pharyngeal Phase Initiation of Pharyngeal Swallow: Bolus head in pyriforms Soft Palate Elevation: Trace column of contrast/air between soft palate and pharyngeal wall Laryngeal Elevation: Partial superior movement thyroid cart/partial apprx aryt- epig petiole Anterior Hyoid Excursion: Partial anterior movement Epiglottic Movement: Complete inversion Laryngeal Vestibule Closure at Height of Swallow: Incomplete; narrow column of air/contrast in laryngeal vestibule Pharyngeal Stripping Wave: Present - diminished Pharyngoesophageal Segment Opening: Parital distension and partial duration; parital obstruction of flow Tongue Base Retraction: Wide column of contrast between tongue base & post. pharyngeal wall Pharyngeal Residue: Collection of residue within or on pharyngeal structures Esophageal Phase Esophageal Clearance: Esophageal retention Treatment Strategies Effects of treatment strategies attemped:: Cough and re-swallow = effective Liquid wash = somewhat effective Diagnosis/Impression Diagnosis: Mild-moderate oropharyngeal dysphagia R13.12 Impression: The oral phase is primarily marked by... -Decreased bolus control with osterior loss of bolus head of liquids to the pyriforms and even laryngeal vestibule prior to swallow onset placing the patient at increased risk for aspiration. -Slowed mastication, small pieces of cookie were un-chewed. -Slowed tongue motion for A-P transport. The pharyngeal phase is primarily marked by.. -Delayed swallow onset. -Mild-moderate pharyngeal residue due to decreased tongue base retraction, pharyngeal stripping wave, and UES opening/duration. -Decreased airway closure due to decreased anterior hyoid excursion and laryngeal elevation. Consistent laryngeal penetration of thin and mildly thick liquid trials. Deep laryngeal penetration of final trial of thin liquids without full ejection. Cough and re-swallow was most effective in decreasing risk for aspiration. The esophageal phase is primarily marked by... -Retention of cookie in the upper and lower esophagus, which somewhat cleared with liquid wash. Recommendations Diet: Puree Textures and [place]-thick Liquids (Mildly-thick Liquids - IDDSI Level 2) Comment: Puree diet is per patient preference. Pt is ok to advance to soft and bite size textures if he wishes in future sessions. Compensatory Strategies: Small Bites, Small Sips (Intermittent cough and re- swallow), Slow Rate, Alternate bites/solids and sips/liquids, Sitting upright and Remain sitting upright for 30 minutes after PO intake Supervision: Total Feed Recommend Repeat Modified Barium Swallow: Yes (Repeat in 2-3 weeks after implementation of oropharyngeal exercise program to consider diet advancement of liquids) Need for Skilled Speech Therapy Services: Yes Comment: -Train the patient in use of strategies to decrease risk for aspiration and reflux aspiration. -Ongoing assessment of diet tolerance of recommended textures. Recommend trials of thin liquids w/ MEDICATION TECHNICIAN with use of cough and re-swallow after each sip. -Train the patient in oropharyngeal exercise program to improve bolus control, airway closure, pharyngeal contraction/tongue base retraction, and swallow onset (lingual resistance, Terence, CTAR, Elvia). Education Completed: 1. Described result of evaluation. Status Active ST Patient: Active Contact Information [facility] Speech Therapy:: Angelia Kaye M.A. [facility]-MEDICATION TECHNICIAN? Speech-Language Pathologist?? [facility] [address] [place] [address]? [email or web address]?? [phone]
[2024-03-01] MEDS: Nystatin Powder 15gm Bottle 1 APPLIC TOPICAL ×2 (13:05→22:33)
--- NOTE | 2024-03-01 13:39 | PN.RENAL_ITS ---
Subjective Subjective had right sided weakness this am. MRI brain is ok. currently looks comfortable. no edema. breathing is at baseline. Objective Data Objective Data Vital Signs: Vital Signs Temp Pulse Resp BP Pulse Ox O2 Del Method O2 Flow Rate 98.1 F 81 16 121/70 H 99 Nasal Cannula 3 03/01/24 08:00 03/01/24 11:02 03/01/24 10:40 03/01/24 10:40 03/01/24 10:40 03/01/24 10:40 03/01/24 10:30 Oxygen Flow Rate (L/min) 3 Oxygen Delivery Method Nasal Cannula Weight: 77.2 kg Body Mass Index (BMI) 24.4 Intake & Output: Intake and Output for Last 24 Hours 02/28/24 02/29/24 03/01/24 23:59 23:59 23:59 Intake Total 50 / 50 612.5 / 612.5 100 / 100 Output Total 0 / 0 1940 / 1940 Balance 50 / 50 612.5 / 612.5 -1840 / -1840 Medical Nutrition Assessment Dietitian: Malnutrition Criteria Met Start: 02/29/24 15:43 Freq: Status: Active Protocol: Document 02/29/24 15:43 SB (Rec: 02/29/24 15:44 SB [id number]) Nutrition Malnutrition Evidence of Malnutrition Exists Yes Malnutrition (severe): Chronic Evidenced By Suboptimal Energy Intake ( Severe),Weight Loss (Severe) Clinical Problem Chronic Disease or Condition Related Malnutrition Etiology severe protein-calorie malnutrition in the context of chronic disease related to swallowing difficulty and inadequate oral intake Signs/Symptoms as evidence by mechanically altered diet, 10.1% unintentional weight loss x 1 month, and PO intake meeting less than <50% of estimated nutrition needs x 1 month. Status Active Problem Recommendation Dietitian Recommendations/Changes If deemed safe for PO, recommend advance diet as tolerated to renal general, consistency/texture per [employer]. Will add 120ml PO Nepro x TID as diet advanced from NPO. If PO remains contraindicated consider enteral nutrition support to prevent further energy and protein depletion. Reviewed and approved by Kanchan Ambrose, MS, RD, LD Lab / Micro Data 03/01/24 08:00 03/01/24 08:00 Labs: Laboratory Results - last 24 hr 03/01/24 08:00: WBC 9.1, RBC 3.11 L, Hgb 9.1 L, Hct 29.4 L, MCV 94.5 H, MCH 29.3, MCHC 31.0 L, RDW Std Deviation 63.9 H, RDW Coeff of Silvia 18.6 H, Plt Count 116 L, MPV 8.8, Immature Gran % (Auto) 1.000 H, Neut % (Auto) 83.4 H, Lymph % (Auto) 9.7 L, [place] % (Auto) 4.2, Eos % (Auto) 1.3, Baso % (Auto) 0.4, Absolute Neuts (auto) 7.5, Absolute Lymphs (auto) 0.88, Nucleated RBC % 0, Sodium 136, Potassium 3.8, Chloride 101, Carbon Dioxide 30.0, Anion Gap 5, BUN 23 H, C reatinine 2.67 H, Estim Creat Clear Calc 29.24, Est GFR (MDRD) Af Amer 31 L, Est GFR (MDRD) Non-Af 26 L, BUN/Creatinine Ratio 8.6 L, Glucose 72 L, Calcium 8.3 L, Phosphorus 2.4 L, Magnesium 1.8 Micro: Microbiology 02/28/24 21:36 Urine, Random Legionella Antigen - Final 02/28/24 21:36 Urine, Random Streptococcus pneumoniae Antigen (M - Final 02/29/24 00:28 Mucosa - Nasopharyngeal Respiratory Panel (PCR) - Final 02/28/24 20:48 Mucosa - Nose SARS-CoV-2, Influenza & RSV (PCR) - Final Radiography Diagnostic Testing: Radiology Impression Brain MRI 02/29/24 17:13 IMPRESSION: No acute intracranial abnormality. Electronically Signed: Shahbaz Rosales DO at 4:13 EDT , Physical Exam Narrative no obvious distress no pallor no icterus no JVD s1s2 no murmurs lungs clear abdomen soft no organomegaly no edema no cyanosis Assessment & Plan Assessment/Plan (1) ESRD (end stage renal disease) on dialysis: PLAN: On hemodialysis, HD today. see orders. Anemia. Hb is under goal. gets long acting KRUPA With HD pneumonia. abx as per primary
[2024-03-01] MEDS: Vancomycin IV 500 MG/100 ML BAG 100 MG IV (16:02)
[2024-03-01] MEDS: Atorvastatin Calcium 20 MG Tablet PO (22:32)
[2024-03-01] MEDS: Latanoprost 0.005% 1 Bottle 1 DRP RIGHT EYE (22:32)
[2024-03-02] VITALS (12 sets, daily range): BP systolic 75–290; BP diastolic 44–77; PULSE 81–119; RESP 16–18; TEMP 36.1–36.8; O2SAT 95–100; BMI 24.4; BMI 24.6
[2024-03-02] MEDS: Midodrine HCl 5 MG Tablet 10 MG PO (05:45)
[2024-03-02 06:45] LABS: Absolute Lymphocyte Count 0.96 X10^3/uL (0.83-4.51); Basophil# 0.03 X10^3/uL; Basophil% 0.4 % (0-1); Eosinophils% 1.3 % (0-5); Hematocrit 30.3 % (40-54); Hemoglobin 9.3 g/dL (13.0-16.5); Lymphocyte # 0.96 X10^3/ul (0.83-4.51); Lymphocyte % 12.8 % (19-41); Mean Corp Hgb Conc 30.7 g/dL (32-36); Mean Corpuscular Hgb 29.3 pg (27.0-32.0); Mean Corpuscular Volume 95.6 fL (80-94); Mean Platelet Vol. 9.1 fl (6.2-12.0); Monocyte# 0.38 X10^3/uL; Monocyte% 5.1 % (0-10); NRBC Flagged by Analyzer 0 % (0-5); Neutrophil # 5.97 X10^3/uL (2.7-7.7); Neutrophil % 79.3 % (47-70); POSITIVE MORPHOLOGY YES; Platelet Count 113 K/mm3 (150-450); RBC Distribution Width CV 18.6 % (11.6-14.6); RBC Distribution Width SD 66.1 fl (35.1-43.9); Red Blood Count 3.17 M/mm3 (4.6-6.2); White Blood Count 7.5 K/mm3 (4.4-11.0)
[2024-03-02 06:51] LABS: Differential Indicated SCAN CRITERIA MET
[2024-03-02 07:11] LABS: Anion Gap 5 (5-15); BUN 22 mg/dL (7-18); BUN/Creat Ratio 7.9 RATIO (10-20); Calcium,Total 8.4 mg/dL (8.5-10.1); Chloride 103 mmol/L (98-107); Creatinine, Serum 2.79 mg/dL (0.70-1.30); EST Glomerular Filtration Rate 25 mL/min (>60); Est Glom Filt Rate - Afr Amer 30 mL/min (>60); Estimated Creatinine Clearance 27.98 ml/min; Glucose 67 mg/dL (74-106); Potassium 3.9 mmol/L (3.5-5.1); Sodium Level 135 mmol/L (136-145)
[2024-03-02 07:13] LABS: Anisocytosis RARE; Burr Cells 1+
[2024-03-02 07:21] LABS: Vancomycin, Random Level 26.9 ug/mL (0.0-15.0)
--- NOTE | 2024-03-02 07:46 | PCM.PN.HOSP ---
Reason for Visit Reason for Visit: Diagnoses Metabolic encephalopathy (02/28/24) Pneumonitis due to inhalation of food and vomit (02/28/24) End stage renal disease (02/28/24) Dysphagia, unspecified (02/28/24) Dependence on renal dialysis (02/28/24) Objective Data Objective Data Vital Signs: Vital Signs Temp Pulse Resp BP Pulse Ox O2 Del Method O2 Flow Rate 97.0 F L 110 H 16 88/59 L 95 Nasal Cannula 2 03/02/24 06:30 03/02/24 06:30 03/02/24 06:30 03/02/24 06:30 03/02/24 07:24 03/02/24 07:24 03/02/24 07:24 Oxygen Flow Rate (L/min) 2 Oxygen Delivery Method Nasal Cannula Weight: 77.2 kg Body Mass Index (BMI) 24.4 Intake & Output: Intake and Output for Last 24 Hours 02/29/24 03/01/24 03/02/24 23:59 23:59 23:59 Intake Total 612.5 / 612.5 300 / 600 500 / 500 Output Total 0 / 0 1940 / 1940 Balance 612.5 / 612.5 -1640 / -1340 500 / 500 Medical Nutrition Assessment Dietitian: Malnutrition Criteria Met Start: 02/29/24 15:43 Freq: Status: Active Protocol: Document 02/29/24 15:43 SB (Rec: 02/29/24 15:44 SB [id number]) Nutrition Malnutrition Evidence of Malnutrition Exists Yes Malnutrition (severe): Chronic Evidenced By Suboptimal Energy Intake ( Severe),Weight Loss (Severe) Clinical Problem Chronic Disease or Condition Related Malnutrition Etiology severe protein-calorie malnutrition in the context of chronic disease related to swallowing difficulty and inadequate oral intake Signs/Symptoms as evidence by mechanically altered diet, 10.1% unintentional weight loss x 1 month, and PO intake meeting less than <50% of estimated nutrition needs x 1 month. Status Active Problem Recommendation Dietitian Recommendations/Changes If deemed safe for PO, recommend advance diet as tolerated to renal general, consistency/texture per TELECOMMUNICATIONS SALES REPRESENTATIVE. Will add 120ml PO Nepro x TID as diet advanced from NPO. If PO remains contraindicated consider enteral nutrition support to prevent further energy and protein depletion. Reviewed and approved by Kanchan Ambrose, , RD, LD Lab / Micro Data 03/02/24 06:00 03/02/24 06:00 Labs: Laboratory Results - last 24 hr 03/01/24 08:00: WBC 9.1, RBC 3.11 L, Hgb 9.1 L, Hct 29.4 L, MCV 94.5 H, MCH 29.3, MCHC 31.0 L, RDW Std Deviation 63.9 H, RDW Coeff of Silvia 18.6 H, Plt Count 116 L, MPV 8.8, Immature Gran % (Auto) 1.000 H, Neut % (Auto) 83.4 H, Lymph % (Auto) 9.7 L, [place] % (Auto) 4.2, Eos % (Auto) 1.3, Baso % (Auto) 0.4, Absolute Neuts (auto) 7.5, Absolute Lymphs (auto) 0.88, Nucleated RBC % 0, Sodium 136, Potassium 3.8, Chloride 101, Carbon Dioxide 30.0, Anion Gap 5, BUN 23 H, Creatinine 2.67 H, Estim Creat Clear Calc 29.24, Est GFR (MDRD) Af Amer 31 L, Est GFR (MDRD) Non-Af 26 L, BUN/Creatinine Ratio 8.6 L, Glucose 72 L, Calcium 8.3 L, Phosphorus 2.4 L, Magnesium 1.8 03/02/24 06:00: WBC 7.5, RBC 3.17 L, Hgb 9.3 L, Hct 30.3 L, MCV 95.6 H, MCH 29.3, MCHC 30.7 L, RDW Std Deviation 66.1 H, RDW Coeff of Silvia 18.6 H, Plt Count 113 L, MPV 9.1, Immature Gran % (Auto) 1.100 H, Neut % (Auto) 79.3 H, Lymph % (Auto) 12.8 L, [place] % (Auto) 5.1, Eos % (Auto) 1.3, Baso % (Auto) 0.4, Absolute Neuts (auto) 6.0, Absolute Lymphs (auto) 0.96, Nucleated RBC % 0, Anisocytosis RARE, [place] Cells 1+, Sodium 135 L, Potassium 3.9, Chloride 103, Carbon Dioxide 27.0, Anion Gap 5, BUN 22 H, Creatinine 2.79 H, Estim Creat Clear Calc 27.98, Est GFR (MDRD) Af Amer 30 L, Est GFR (MDRD) Non-Af 25 L, BUN/Creatinine Ratio 7.9 L, Glucose 67 L, Calcium 8.4 L, Random Vancomycin 26.9 H Micro: Microbiology 02/28/24 21:36 Urine, Random Legionella Antigen - Final 02/28/24 21:36 Urine, Random Streptococcus pneumoniae Antigen (M - Final 02/29/24 00:28 Mucosa - Nasopharyngeal Respiratory Panel (PCR) - Final 02/28/24 20:48 Mucosa - Nose SARS-CoV-2, Influenza & RSV (PCR) - Final Radiography Diagnostic Testing: Radiology Impression Brain MRI 02/29/24 17:13 IMPRESSION: No acute intracranial abnormality. Electronically Signed: Shahbaz Rosales DO at 4:13 EDT , Physical Exam Narrative GENERAL: Lethargic but arousable HEENT: Atraumatic; normocephalic EYES; Anicteric, Normal Conjunctiva NECK; supple, normal thyroid, RESPIRATORY: Diminished to auscultation CARDIOVASCULAR: Regular S1 S2, GI: soft, normoactive bowel sounds, : No Renal angle tenderness; EXTREMITIES: No edema, no clubbing, MUSCULOSKELETAL: no muscle wasting NEURO: Awake; no lateralizing signs. SKIN: No Rash PSYCH; Flat affect Assessment & Plan Assessment/Plan (1) Aspiration pneumonia: (2) Dysphagia: (3) Acute metabolic encephalopathy: PLAN: Plan Patient is a 63-year-old male [facility] presented with altered mental status with hypoxia 1. Acute metabolic encephalopathy ? Secondary to hypoxia from aspiration pneumonia admitted to regular nursing floor for further management 2. Suspected aspiration pneumonia ? Patient has recent history of ESBL E. coli as well as group C strep pneumo. Admitted to regular nursing floor started on broad-spectrum antibiotic therapy with Zosyn and vancomycin in addition to supplemental oxygen titrated to keep saturation greater than 90 3. End-stage renal disease ? Patient is on dialysis MTuThF schedule. Consult placed to nephrology for dialysis orders 4. Paroxysmal A-fib with RVR ? In normal sinus rhythm on admit. on amiodarone, Lopressor and Eliquis, continued. 5. Adult failure to thrive, chronic debility, history of stroke with left-sided hemiparesis ? PT/OT/case management consulted. 6. Anemia - Secondary to chronic disorder monitoring H&H and transfuse if patient becomes symptomatic or hemoglobin falls below 7 7. History of gastric CA ? Patient is on PPI 8. Dyslipidemia -Patient is on statin therapy, continued at home dose 9. Hypertension - Blood pressure controlled, home medications continued with dose adjustment as needed 10. Seizure disorder ? Patient is on valproic acid did continue 11. DVT prophylaxis ? Patient already anticoagulated with apixaban 12. Previous CVA with residual left-sided weakness ? Patient was noted to have right-sided weakness. MRI without contrast has been ordered for subsequent eval Time spent in the patient's overall evaluation,decision-making process, review of diagnostic data, adjustment of management, discussion with other providers, nursing nursing and ancillary staff involved in patient's care documentation, 50 Minutes
--- NOTE | 2024-03-02 08:47 | CASEMGMT ---
Discharge Planning Updates sent to [facility] via [employer]. Dione Londono DC Planning Asst.
--- NOTE | 2024-03-02 08:54 | PCM.RX.CS ---
Consult Antibiotic Management Pharmacy has been consulted to manage selected antibiotic: Vancomycin Type of Intervention Type of Consult: Follow-up Suspected Infection Suspected Infection: Pneumonia Prior Doses of Antibiotics Prior Doses of Antibiotics Received/Current Regimen: 2000MG IV X 1 ON 02.28.24 AND 500MG IV X 1 POST DIALYSIS ON 03.01.24. Labs Labs: Sodium 135 mmol/L (136-145) L 03/02/24 06:00 Potassium 3.9 mmol/L (3.5-5.1) 03/02/24 06:00 Chloride 103 mmol/L (98-107) 03/02/24 06:00 Carbon Dioxide 27.0 mmol/L (21.0-32.0) 03/02/24 06:00 Anion Gap 5 (5-15) 03/02/24 06:00 BUN 22 mg/dL (7-18) H 03/02/24 06:00 Creatinine 2.79 mg/dL (0.70-1.30) H 03/02/24 06:00 Est GFR (MDRD) Af Amer 30 mL/min (>60) L 03/02/24 06:00 Est GFR (MDRD) Non-Af 25 mL/min (>60) L 03/02/24 06:00 BUN/Creatinine Ratio 7.9 RATIO (10-20) L 03/02/24 06:00 Glucose 67 mg/dL (74-106) L 03/02/24 06:00 Random Vancomycin 26.9 ug/mL (0.0-15.0) H 03/02/24 06:00 Microbiology Microbiology: Microbiology 02/28/24 21:36 Urine, Random Legionella Antigen - Final 02/28/24 21:36 Urine, Random Streptococcus pneumoniae Antigen (M - Final 02/29/24 00:28 Mucosa - Nasopharyngeal Respiratory Panel (PCR) - Final 02/28/24 20:48 Mucosa - Nose SARS-CoV-2, Influenza & RSV (PCR) - Final Dosing Weight Weight used for dosin.2 kg Goal Trough Goal Trough: 15-20 mcg/mL Pharmacy Plan for Drug Dosing Pharmacy Plan for Drug Dosing: Random level today 26.9. No further dosing will be given at this time. Random level ordered for Tue03.05.24 prior to dialysis. Pharmacy Service will continue to monitor and adjust dosing as required. Follow-Up Labs Follow-Up Labs: Trough: Other (vanco random level 7.29.24 0600)
[2024-03-02] MEDS: 0.9% Saline Lock 10 ML Syringe IV ×3 (09:27→16:13)
[2024-03-02] MEDS: Divalproex Sodium 125 MG SPRINKLE 1000 MG PO (09:28)
[2024-03-02] MEDS: APIXABAN 2.5 MG TABLET (WCH) PO (09:28)
[2024-03-02] MEDS: BRIMONIDINE 0.2% 5ML BOTTLE 1 DRP OPHTHALMIC (09:29)
[2024-03-02] MEDS: Metoprolol Tartrate 25 MG Tablet PO (09:29)
[2024-03-02] MEDS: Amiodarone 200 MG Tablet PO (09:29)
[2024-03-02] MEDS: Nystatin Powder 15gm Bottle 1 APPLIC TOPICAL (09:30)
[2024-03-02] MEDS: Pantoprazole Sodium 40 MG Tablet PO (09:31)
[2024-03-02] MEDS: Acetaminophen 325 MG Tablet 650 MG PO (09:36)
--- NOTE | 2024-03-02 10:05 | DS.PCM_ITS ---
Providers Date of Admission: 02/28/24 Date of Discharge: 03/14/24 Primary Care Physician: Dr. Amish Han MD Consultations 02/28/24 23:59 Consult: Nephrology Routine Consulting Provider: Katherin Sandoval Reason for Consult: ESRD on HD EMERGENT Consult: No MD Notified: Yes Date Notified: 02/29/24 Time Notified: 02:08 Method of Notification: Answering Service 02/29/24 02:50 Consult: Onc/Wound/compounding pharmacy technician Routine Comment: Reason for Consult:: Pressure ulcer on coccyx Reason For Visit: CAP W/HYPOXIA, H/O OF ESRD ON HD Diagnosis Discharge Diagnosis (1) Aspiration pneumonia: Status: Acute Code(s): J69.0 - Pneumonitis due to inhalation of food and vomit (2) Dysphagia: Status: Acute Code(s): R13.10 - Dysphagia, unspecified (3) Acute metabolic encephalopathy: Status: Acute Code(s): G93.41 - Metabolic encephalopathy Plan Patient is a 63-year-old male resident to [facility] presented with altered mental status with hypoxia 1. Acute metabolic encephalopathy ? Secondary to hypoxia from aspiration pneumonia admitted to regular nursing floor for further management ? 03/02/2024; encephalopathy resolved. 2. Suspected aspiration pneumonia ? Patient has recent history of ESBL E. coli as well as group C strep pneumo. Admitted to regular nursing floor started on broad-spectrum antibiotic therapy with Zosyn and vancomycin in addition to supplemental oxygen titrated to keep saturation greater than 90 3. End-stage renal disease ? Patient is on dialysis MTuThF schedule. Consult placed to nephrology for dialysis orders 4. Paroxysmal A-fib with RVR ? In normal sinus rhythm on admit. on amiodarone, Lopressor and Eliquis, continued. 5. Adult failure to thrive, chronic debility, history of stroke with left-sided hemiparesis ? PT/OT/case management consulted. 6. Anemia - Secondary to chronic disorder monitoring H&H and transfuse if patient becomes symptomatic or hemoglobin falls below 7 7. History of gastric CA ? Patient is on PPI 8. Dyslipidemia -Patient is on statin therapy, continued at home dose 9. Hypertension - Blood pressure controlled, home medications continued with dose adjustment as needed 10. Seizure disorder ? Patient is on valproic acid did continue 11. DVT prophylaxis ? Patient already anticoagulated with apixaban 12. Previous CVA with residual left-sided weakness ? Patient was noted to have right-sided weakness. MRI without contrast has been ordered for subsequent eval ? 03/02/2024; MRI was negative for acute CVA Time spent in the patient's overall evaluation,decision-making process, review of diagnostic data, adjustment of management, discussion with other providers, nursing nursing and ancillary staff involved in patient's care documentation, 36 Minutes Medications at Discharge Home Medications albuterol sulfate 90 mcg/actuation aerosol inhaler (Ventolin HFA) 2 puff inhalation Q6H PRN Wheezing 08/24/22 metoprolol tartrate 25 mg tablet 25 mg PO DAILY afib 08/24/22 amlodipine 10 mg tablet 10 mg PO DAILY #30 tabs 09/15/22 Manual wheelchair #1 ea 03/24/23 brimonidine 0.2 % eye drops 1 drp ophthalmic (eye) BID eyes 05/11/23 latanoprost 0.005 % eye drops 1 drp RIGHT EYE QHS eyes 10/30/23 guaifenesin 100 mg/5 mL oral liquid 200 mg (10 mL) PO Q4H PRN PRN Cough #0 mL 11/11/23 nystatin 100,000 unit/gram topical powder (Nyamyc) 1 applic topical BID #0 grams 11/11/23 pantoprazole 40 mg tablet,delayed release 40 mg PO BID #0 tabs 11/11/23 apixaban 2.5 mg tablet (Eliquis) 2.5 mg PO BID 01/26/24 atorvastatin 20 mg tablet 20 mg PO DAILY 01/26/24 calcitriol 0.25 mcg capsule 0.25 mcg PO MOWEFR 01/26/24 cyclobenzaprine 7.5 mg tablet 7.5 mg PO Q8H PRN muscle spasm 01/26/24 divalproex 125 mg capsule,delayed release sprinkle 1,000 mg PO BID 01/26/24 midodrine 10 mg tablet 10 mg PO DAILY PRN SBP 01/26/24 acetaminophen 650 mg/20.3 mL oral solution 650 mg (20.3 mL) PO Q6H PRN PRN Pain 1-10 Or Fever >100.7 #0 mL 02/04/24 sennosides 8.6 mg-docusate sodium 50 mg tablet (Stool Softener-Stimulant Laxative) 2 tab NG BID PRN Constipation #0 tabs 02/04/24 amiodarone 200 mg tablet 200 mg PO DAILY 02/28/24 amoxicillin 875 mg-potassium clavulanate 125 mg tablet 1 tab PO BID #14 tabs 03/02/24 food supplemt, lactose-reduced (Ensure Compact oral liquid) 118 ml PO TIDCM #0 mL 03/02/24 Physical Exam Narrative GENERAL: Patient in no apparent distress HEENT: Atraumatic; normocephalic EYES; Anicteric, Normal Conjunctiva NECK; supple, normal thyroid, RESPIRATORY: Diminished to auscultation CARDIOVASCULAR: Regular S1 S2, GI: soft, normoactive bowel sounds, : No Renal angle tenderness; EXTREMITIES: No edema, no clubbing, MUSCULOSKELETAL: no muscle wasting NEURO: Awake; oriented to place and person SKIN: No Rash PSYCH; Flat affect Medical Records Data Medical Nutrition Assessment Dietitian: Malnutrition Criteria Met Start: 02/29/24 15:43 Freq: Status: Active Protocol: Document 02/29/24 15:43 SB (Rec: 02/29/24 15:44 SB [id number]) Nutrition Malnutrition Evidence of Malnutrition Exists Yes Malnutrition (severe): Chronic Evidenced By Suboptimal Energy Intake ( Severe),Weight Loss (Severe) Clinical Problem Chronic Disease or Condition Related Malnutrition Etiology severe protein-calorie malnutrition in the context of chronic disease related to swallowing difficulty and inadequate oral intake Signs/Symptoms as evidence by mechanically altered diet, 10.1% unintentional weight loss x 1 month, and PO intake meeting less than <50% of estimated nutrition needs x 1 month. Status Active Problem Recommendation Dietitian Recommendations/Changes If deemed safe for PO, recommend advance diet as tolerated to renal general, consistency/texture per DIRECTOR GLOBAL STRATEGIC PUBLISHER SALES. Will add 120ml PO Nepro x TID as diet advanced from NPO. If PO remains contraindicated consider enteral nutrition support to prevent further energy and protein depletion. Reviewed and approved by Kanchan Ambrose MS, RD, LD Weight / BMI Weight Weight: 77.2 kg Body Mass Index (BMI) 24.4 ABG / Lab / Microbiology Data 03/02/24 06:00 03/02/24 06:00 Laboratory: Laboratory Results - last 24 hr 03/02/24 06:00: WBC 7.5, RBC 3.17 L, Hgb 9.3 L, Hct 30.3 L, MCV 95.6 H, MCH 29.3, MCHC 30.7 L, RDW Std Deviation 66.1 H, RDW Coeff of Silvia 18.6 H, Plt Count 113 L, MPV 9.1, Immature Gran % (Auto) 1.100 H, Neut % (Auto) 79.3 H, Lymph % (Auto) 12.8 L, [place] % (Auto) 5.1, Eos % (Auto) 1.3, Baso % (Auto) 0.4, Absolute Neuts (auto) 6.0, Absolute Lymphs (auto) 0.96, Nucleated RBC % 0, Anisocytosis RARE, [place] Cells 1+, Sodium 135 L, Potassium 3.9, Chloride 103, Carbon Dioxide 27.0, Anion Gap 5, BUN 22 H, Creatinine 2.79 H, Estim Creat Clear Calc 27.98, E st GFR (MDRD) Af Amer 30 L, Est GFR (MDRD) Non-Af 25 L, BUN/Creatinine Ratio 7.9 L, Glucose 67 L, Calcium 8.4 L, Random Vancomycin 26.9 H Microbiology: Microbiology 02/28/24 20:30 Blood Culture (Wb) - Right Wrist Blood Culture - Preliminary No growth in 48 hours. 02/28/24 21:36 Urine, Random Legionella Antigen - Final 02/28/24 21:36 Urine, Random Streptococcus pneumoniae Antigen (M - Final 02/29/24 00:28 Mucosa - Nasopharyngeal Respiratory Panel (PCR) - Final 02/28/24 20:48 Mucosa - Nose SARS-CoV-2, Influenza & RSV (PCR) - Final D/C Instructions Discharge Diet: Renal Diet Discharge Activity: Return to Normal Activity Call your doctor if you observe: Fever of 101 or Higher, Shortness of breath, Fainting spells and Chest pain Meaningful Use Info Meaningful Use Meaningful Use Diagnoses (Choose all that apply): None applicable Ischemic Stroke Statin Dosing Therapy Reference: STATIN DOSE THERAPY REFERENCE: * Patients > 75 years receive moderate or high dose statin therapy. * Patients 75 years or YOUNGER should receive HIGH intensity statin dose unless contraindicated. You will be required to document reason for non-treatment if statin daily dose does not meet guidelines. HIGH DOSE STATIN THERAPY DAILY Atorvastatin > than or = to 40 mg Rosuvastatin > than or = to 20 mg Amlodipine + Atorvastatin > than or = to 2.5/40 mg Ezetimibe + Simvastatin 10/80 mg Simvastatin 80mg Discharge Plan Admission Admit Date/Time: 02/28/24 22:24 Attending Provider: Leonardo Nunez Primary Care Provider: Amish Han Consulting Providers: Katherin Sandoval; Justin Patel Discharge Orders/Prescriptions Prescriptions: New Ensure Compact Liquid 118 ml PO TIDCM Qty: 0 0RF amoxicillin-pot clavulanate 875-125 mg tablet 1 tab PO BID Qty: 14 0RF Continued albuterol sulfate [Ventolin HFA] 90 mcg/actuation HFA aerosol inhaler 2 puff inhalation Q6H PRN (Reason: Wheezing) metoprolol tartrate 25 mg tablet 25 mg PO DAILY amlodipine 10 mg tablet 10 mg PO DAILY Qty: 30 0RF brimonidine 0.2 % drops 1 drp ophthalmic (eye) BID Patient Comments: Instill 1 drop in the right eye 2 times a day latanoprost 0.005 % drops 1 drp RIGHT EYE QHS guaifenesin 100 mg/5 mL Liquid 200 mg PO Q4H PRN PRN (Reason: Cough) Qty: 0 0RF pantoprazole 40 mg Tablet,Delayed Release (Dr/Ec) 40 mg PO BID Qty: 0 0RF nystatin [Nyamyc] 100,000 unit/gram Powder 1 applic topical BID Qty: 0 0RF Protocol: *Topical Application Instructions APPLICATION INSTRUCTIONS: groin amiodarone 200 mg Tablet 200 mg PO DAILY atorvastatin 20 mg tablet 20 mg PO DAILY divalproex 125 mg capsule, delayed rel sprinkle 1,000 mg PO BID midodrine 10 mg tablet 10 mg PO DAILY PRN (Reason: SBP) Rx Instructions: as needed for SBP <95 Eliquis 2.5 mg tablet 2.5 mg PO BID calcitriol 0.25 mcg capsule 0.25 mcg PO MOWEFR cyclobenzaprine 7.5 mg tablet 7.5 mg PO Q8H PRN (Reason: muscle spasm) sennosides-docusate sodium [Stool Softener-Stimulant Laxat] 8.6-50 mg Tablet 2 tab NG BID PRN (Reason: Constipation) Qty: 0 0RF acetaminophen 650 mg/20.3 mL Solution 650 mg PO Q6H PRN PRN (Reason: Pain 1-10 Or Fever >100.7) Qty: 0 0RF (DME) Manual wheelchair See Rx Instructions .Route .MEDSUPPLY Qty: 1 0RF Rx Instructions: ICD 10: Polyneuropathy (G62.9); cerebral infarction (I69.30); weakness (R53.1) Referrals / Follow Up: Amish Han MD [Primary Care Provider] - Within 1 Week Disposition Disposition (needs filled in before D/C Order can be placed): Alf Facility Charges/Coding Visit Charges Inpatient E&M: 08102 Disch Hosp >30min
--- NOTE | 2024-03-02 10:13 | PCM.TXEXTCAR ---
Diet Diet Order/Speech Therapy: 03/01/24 12:57 Diet: Renal - General Food consistency:: Pureed Liquid Consistency:: [place]/Mildly Thick Diet Comments: TOTAL FEED, meds crushed in applesauce Wound(s) coccyx: Wound Type: Pressure Injury Dressing Change: Mepilex Problem/Diagnosis (1) Aspiration pneumonia: Status: Acute Code(s): J69.0 - Pneumonitis due to inhalation of food and vomit (2) Dysphagia: Status: Acute Code(s): R13.10 - Dysphagia, unspecified (3) Acute metabolic encephalopathy: Status: Acute Code(s): G93.41 - Metabolic encephalopathy Plan Patient is a 63-year-old male resident to intermediate facility presented with altered mental status with hypoxia 1. Acute metabolic encephalopathy ? Secondary to hypoxia from aspiration pneumonia admitted to regular nursing floor for further management ? 03/02/2024; encephalopathy resolved. 2. Suspected aspiration pneumonia ? Patient has recent history of ESBL E. coli as well as group C strep pneumo. Admitted to regular nursing floor started on broad-spectrum antibiotic therapy with Zosyn and vancomycin in addition to supplemental oxygen titrated to keep saturation greater than 90 3. End-stage renal disease ? Patient is on dialysis MTuThF schedule. Consult placed to nephrology for dialysis orders 4. Paroxysmal A-fib with RVR ? In normal sinus rhythm on admit. on amiodarone, Lopressor and Eliquis, continued. 5. Adult failure to thrive, chronic debility, history of stroke with left-sided hemiparesis ? PT/OT/case management consulted. 6. Anemia - Secondary to chronic disorder monitoring H&H and transfuse if patient becomes symptomatic or hemoglobin falls below 7 7. History of gastric CA ? Patient is on PPI 8. Dyslipidemia -Patient is on statin therapy, continued at home dose 9. Hypertension - Blood pressure controlled, home medications continued with dose adjustment as needed 10. Seizure disorder ? Patient is on valproic acid did continue 11. DVT prophylaxis ? Patient already anticoagulated with apixaban 12. Previous CVA with residual left-sided weakness ? Patient was noted to have right-sided weakness. MRI without contrast has been ordered for subsequent eval ? 03/02/2024; MRI was negative for acute CVA Time spent in the patient's overall evaluation,decision-making process, review of diagnostic data, adjustment of management, discussion with other providers, nursing nursing and ancillary staff involved in patient's care documentation, 36 Minutes Allergies/Procedures Done in Hospital Allergies lisinopril Adverse Reaction (Severe, Verified 12/20/23 11:12) Other chest pain oxycodone Adverse Reaction (Severe, Verified 12/20/23 11:12) Other hypertension hydrocodone bitartrate (From Vicodin) Adverse Reaction (Mild, Verified 12/20/23 11:12) HYPER Type of Care/Length of Stay Estimated LOS: More Than 30 Days Type of Care Needed: Intermediate Rehab Potential: Fair Prognosis: Fair Additional Orders/Day of Discharge Day of Discharge: 03/02/24 Dietary and Speech Recommendations Dietitian Recommendations/Changes: If deemed safe for PO, recommend advance diet as tolerated to renal general, consistency/texture per DIRECTOR OF DEMENTIA OPERATIONS. Will add 120ml PO Nepro x TID as diet advanced from NPO. If PO remains contraindicated consider enteral nutrition support to prevent further energy and protein depletion. Reviewed and approved by Kanchan Ambrose, , RD, LD Discharge Plan Admission Admit Date/Time: 02/28/24 22:24 Attending Provider: Leonardo Nunez Primary Care Provider: Amish Han Consulting Providers: Katherin Sandoval; Justin Patel Discharge Orders/Prescriptions Prescriptions: New Ensure Compact Liquid 118 ml PO TIDCM Qty: 0 0RF amoxicillin-pot clavulanate 875-125 mg tablet 1 tab PO BID Qty: 14 0RF Continued albuterol sulfate [Ventolin HFA] 90 mcg/actuation HFA aerosol inhaler 2 puff inhalation Q6H PRN (Reason: Wheezing) metoprolol tartrate 25 mg tablet 25 mg PO DAILY amlodipine 10 mg tablet 10 mg PO DAILY Qty: 30 0RF brimonidine 0.2 % drops 1 drp ophthalmic (eye) BID Patient Comments: Instill 1 drop in the right eye 2 times a day latanoprost 0.005 % drops 1 drp RIGHT EYE QHS guaifenesin 100 mg/5 mL Liquid 200 mg PO Q4H PRN PRN (Reason: Cough) Qty: 0 0RF pantoprazole 40 mg Tablet,Delayed Release (Dr/Ec) 40 mg PO BID Qty: 0 0RF nystatin [Nyamyc] 100,000 unit/gram Powder 1 applic topical BID Qty: 0 0RF Protocol: *Topical Application Instructions APPLICATION INSTRUCTIONS: groin amiodarone 200 mg Tablet 200 mg PO DAILY atorvastatin 20 mg tablet 20 mg PO DAILY divalproex 125 mg capsule, delayed rel sprinkle 1,000 mg PO BID midodrine 10 mg tablet 10 mg PO DAILY PRN (Reason: SBP) Rx Instructions: as needed for SBP <95 Eliquis 2.5 mg tablet 2.5 mg PO BID calcitriol 0.25 mcg capsule 0.25 mcg PO MOWEFR cyclobenzaprine 7.5 mg tablet 7.5 mg PO Q8H PRN (Reason: muscle spasm) sennosides-docusate sodium [Stool Softener-Stimulant Laxat] 8.6-50 mg Tablet 2 tab NG BID PRN (Reason: Constipation) Qty: 0 0RF acetaminophen 650 mg/20.3 mL Solution 650 mg PO Q6H PRN PRN (Reason: Pain 1-10 Or Fever >100.7) Qty: 0 0RF (DME) Manual wheelchair See Rx Instructions .Route .MEDSUPPLY Qty: 1 0RF Rx Instructions: ICD 10: Polyneuropathy (G62.9); cerebral infarction (I69.30); weakness (R53.1) Referrals / Follow Up: Amish Han MD [Primary Care Provider] - Within 1 Week Disposition Disposition (needs filled in before D/C Order can be placed): [facility]
[2024-03-02] MEDS: Piperacil/Tazobactam 3.375 GM in 0.9% Normal Saline (50mL MB+) 50 ML IV (10:19)
[2024-03-02] MEDS: Calcitriol 0.25 MCG Capsule PO (10:19)
--- NOTE | 2024-03-02 10:24 | PHA.DC_ITS ---
Pharmacy [place] Med Reconciliation Pharmacy Service has performed discharge medication reconciliation for this patient upon transfer to [facility]. The patient's discharge medication list was reviewed for discrepancies and discrepancies were resolved. Medications at Discharge Home Medications albuterol sulfate 90 mcg/actuation aerosol inhaler (Ventolin HFA) 2 puff inhalation Q6H PRN Wheezing 08/24/22 metoprolol tartrate 25 mg tablet 25 mg PO DAILY afib 08/24/22 amlodipine 10 mg tablet 10 mg PO DAILY #30 tabs 09/15/22 Manual wheelchair #1 ea 03/24/23 brimonidine 0.2 % eye drops 1 drp ophthalmic (eye) BID eyes 05/11/23 latanoprost 0.005 % eye drops 1 drp RIGHT EYE QHS eyes 10/30/23 guaifenesin 100 mg/5 mL oral liquid 200 mg (10 mL) PO Q4H PRN PRN Cough #0 mL 11/11/23 nystatin 100,000 unit/gram topical powder (Nyamyc) 1 applic topical BID #0 grams 11/11/23 pantoprazole 40 mg tablet,delayed release 40 mg PO BID #0 tabs 11/11/23 apixaban 2.5 mg tablet (Eliquis) 2.5 mg PO BID 01/26/24 atorvastatin 20 mg tablet 20 mg PO DAILY 01/26/24 calcitriol 0.25 mcg capsule 0.25 mcg PO MOWEFR 01/26/24 cyclobenzaprine 7.5 mg tablet 7.5 mg PO Q8H PRN muscle spasm 01/26/24 divalproex 125 mg capsule,delayed release sprinkle 1,000 mg PO BID 01/26/24 midodrine 10 mg tablet 10 mg PO DAILY PRN SBP 01/26/24 acetaminophen 650 mg/20.3 mL oral solution 650 mg (20.3 mL) PO Q6H PRN PRN Pain 1-10 Or Fever >100.7 #0 mL 02/04/24 sennosides 8.6 mg-docusate sodium 50 mg tablet (Stool Softener-Stimulant L axative) 2 tab NG BID PRN Constipation #0 tabs 02/04/24 amiodarone 200 mg tablet 200 mg PO DAILY 02/28/24 amoxicillin 875 mg-potassium clavulanate 125 mg tablet 1 tab PO BID #14 tabs 03/02/24 food supplemt, lactose-reduced (Ensure Compact oral liquid) 118 ml PO TIDCM #0 mL 03/02/24
--- NOTE | 2024-03-02 11:04 | CASEMGMT ---
Discharge Planning Discharge orders and transport time sent to [facility] via [facility]. Physicians will transport patient by cot at 12p. Nursing, SW, and patient updated. VM left for patients . Dione Londono DC Planning Asst.
--- NOTE | 2024-03-02 12:13 | PCM.PN.REN ---
Subjective Subjective no new events Objective Data Objective Data Vital Signs: Vital Signs Temp Pulse Resp BP Pulse Ox O2 Del Method O2 Flow Rate 97.0 F L 119 H 16 106/77 95 Nasal Cannula 2 03/02/24 06:30 03/02/24 09:29 03/02/24 06:30 03/02/24 09:29 03/02/24 07:24 03/02/24 07:24 03/02/24 07:24 Oxygen Flow Rate (L/min) 2 Oxygen Delivery Method Nasal Cannula Weight: 77.2 kg Body Mass Index (BMI) 24.4 Intake & Output: Intake and Output for Last 24 Hours 02/29/24 03/01/24 03/02/24 23:59 23:59 23:59 Intake Total 612.5 / 612.5 300 / 600 500 / 500 Output Total 0 / 0 1940 / 1940 Balance 612.5 / 612.5 -1640 / -1340 500 / 500 Medical Nutrition Assessment Dietitian: Malnutrition Criteria Met Start: 02/29/24 15:43 Freq: Status: Active Protocol: Document 02/29/24 15:43 SB (Rec: 02/29/24 15:44 SB [id number]) Nutrition Malnutrition Evidence of Malnutrition Exists Yes Malnutrition (severe): Chronic Evidenced By Suboptimal Energy Intake ( Severe),Weight Loss (Severe) Clinical Problem Chronic Disease or Condition Related Malnutrition Etiology severe protein-calorie malnutrition in the context of chronic disease related to swallowing difficulty and inadequate oral intake Signs/Symptoms as evidence by mechanically altered diet, 10.1% unintentional weight loss x 1 month, and PO intake meeting less than <50% of estimated nutrition needs x 1 month. Status Active Problem Recommendation Dietitian Recommendations/Changes If deemed safe for PO, recommend advance diet as tolerated to renal general, consistency/texture per [employer]. Will add 120ml PO Nepro x TID as diet advanced from NPO. If PO remains contraindicated consider enteral nutrition support to prevent further energy and protein depletion. Reviewed and approved by Kanchan Ambrose MS, RD, LD Lab / Micro Data 03/02/24 06:00 03/02/24 06:00 Labs: Laboratory Results - last 24 hr 03/02/24 06:00: WBC 7.5, RBC 3.17 L, Hgb 9.3 L, Hct 30.3 L, MCV 95.6 H, MCH 29.3, MCHC 30.7 L, RDW Std Deviation 66.1 H, RDW Coeff of Silvia 18.6 H, Plt Count 113 L, MPV 9.1, Immature Gran % (Auto) 1.100 H, Neut % (Auto) 79.3 H, Lymph % (Auto) 12.8 L, [place] % (Auto) 5.1, Eos % (Auto) 1.3, Baso % (Auto) 0.4, Absolute Neuts (auto) 6.0, Absolute Lymphs (auto) 0.96, Nucleated RBC % 0, Anisocytosis RARE, [place] Cells 1+, Sodium 135 L, Potassium 3.9, Chloride 103, Carbon Dioxide 27.0, Anion Gap 5, BUN 22 H, Creatinine 2.79 H, Estim Creat Clear Calc 27.98, Est GFR (MDRD) Af Amer 30 L, Est GFR (MDRD) Non-Af 25 L, BUN/Creatinine Ratio 7.9 L, Glucose 67 L, Calcium 8.4 L, Random Vancomycin 26.9 H Micro: Microbiology 02/28/24 20:30 Blood Culture (Wb) - Right Wrist Blood Culture - Preliminary No growth in 48 hours. 02/28/24 21:36 Urine, Random Legionella Antigen - Final 02/28/24 21:36 Urine, Random Streptococcus pneumoniae Antigen (M - Final 02/29/24 00:28 Mucosa - Nasopharyngeal Respiratory Panel (PCR) - Final 02/28/24 20:48 Mucosa - Nose SARS-CoV-2, Influenza & RSV (PCR) - Final Physical Exam Narrative no obvious distress no pallor no icterus no JVD s1s2 no murmurs lungs clear abdomen soft no organomegaly no edema no cyanosis Assessment & Plan Assessment/Plan (1) ESRD (end stage renal disease) on dialysis: PLAN: On hemodialysis, HD today. see orders. Anemia. Hb is under goal. gets long acting KRUPA With HD pneumonia. abx as per primary Discharge back to long term today.
--- NOTE | 2024-03-02 12:28 | CASEMGMT ---
Social Work Pt needs dialysis prior to discharge. SW changed transport to 5pm, notified RN, pt's and SWCC. No further needs anticipated at this time. MELVIN Truong
[2024-03-02] MEDS: PureFlow B 2K Dialysis Soln 1 BAG 6 BAG PF (13:13)
[2024-03-02] MEDS: 0.9% Normal Saline 1,000 ML IV.SOLN. 1000 ML OPERA.SITE (13:13)
== END 2024-03-02 17:20 | DRG 177 ==
LOC: ED 22:35 → PCU 23:03
PROVIDERS: Admitting Provider Hospitalist; Emergency Provider Student in an Organized Health Care Education/Training Program; PCP Family Medicine; Visit Provider Internal Medicine
DX: J69.0 Pneumonitis due to inhalation of food and vomit (principal); G93.41 Metabolic encephalopathy; N18.6 End stage renal disease; I13.2 Hypertensive heart and chronic kidney disease with heart failure and with stage 5 chronic kidney disease, or end stage renal disease; I69.354 Hemiplegia and hemiparesis following cerebral infarction affecting left non-dominant side; J96.11 Chronic respiratory failure with hypoxia; I50.32 Chronic diastolic (congestive) heart failure; L89.150 Pressure ulcer of sacral region, unstageable; D63.8 Anemia in other chronic diseases classified elsewhere; E11.22 Type 2 diabetes mellitus with diabetic chronic kidney disease; G40.909 Epilepsy, unspecified, not intractable, without status epilepticus; J44.9 Chronic obstructive pulmonary disease, unspecified; I48.0 Paroxysmal atrial fibrillation; E11.42 Type 2 diabetes mellitus with diabetic polyneuropathy; K21.9 Gastro-esophageal reflux disease without esophagitis; Z99.2 Dependence on renal dialysis; E78.00 Pure hypercholesterolemia, unspecified; R62.7 Adult failure to thrive; R13.10 Dysphagia, unspecified; R53.81 Other malaise; Z79.01 Long term (current) use of anticoagulants; Z79.899 Other long term (current) drug therapy; Z68.25 Body mass index [BMI] 25.0-25.9, adult
CPT/HCPCS: 36415; 70450; 70551; 71045; 71250; 74230; 80048; 80164; 80202; 81001; 83605; 83735; 83880; 84100; 84484; 85025; 85027; 87040; 87449; 87631; 87633; 90937; 92610; 92611; 93005; 94668; 97162; 97166; 97802; 99285; J7030; J7040; J7120; A4216; G0257; J2405